=== PATIENT | male | born 1950 | race Caucasian/White ===

== ENCOUNTER 2018-03-26 10:26 | Day surgery (SDC) | payer OTHER ==
[2018-03-25 13:08] LABS: Absolute Lymphocytes (CBC) 1.6 K/uL (0.7-4.9); Absolute Monocytes 0.4 K/uL (0.1-1.3); Absolute Neutrophil 4.6 K/uL (1.8-8.0); Basophils % 1.8 % (0-1.3); Eosinophils % 6.3 % (0-4.4); Hematocrit 34.4 % (39.6-49.0); MCH 29.8 pg (27.0-35.0); MPV 8.1 fL (7.6-11.3); Monocytes % 5.9 % (3.3-12.3); RBC Red Blood Cell Count 3.87 M/uL (4.33-5.43)
[2018-03-25 13:15] LABS: Protime INR 1.01
[2018-03-25 13:24] LABS: Potassium 6.1 mmol/L (3.5-5.1)
--- NOTE | 2018-03-25 14:13 | RAD REPORT ---
EXAM DESCRIPTION: RAD - Chest Pa And Lat (2 Views) - 03/25/2018 2:02 pm CLINICAL HISTORY: Diabetes Chest pain. COMPARISON: Chest Single View dated 05/26/2017; Chest Single View dated 02/10/2017; Chest Single View d ated 02/09/2017; CHEST PA AND LAT 2 VIEW dated 12/09/2015 FINDINGS: The lungs are clear. The heart is upper limit of normal in size. No displaced fractures. R ight humeral prosthesis noted. Multi lead pacer/defibrillator device is in place the right. Sternotom y wires present. IMPRESSION: No acute or worrisome finding suspected.
[2018-03-25 14:21] LABS: Urine Appearance CLEAR; Urine Bilirubin NEGATIVE (NEG); Urine Blood NEGATIVE (NEG); Urine Color YELLOW; Urine Glucose 1+ (NEG); Urine Microscopic Reflex NO UMIC; Urine Protein NEGATIVE (NEG); Urine Urobilinogen 0.2 mg/dL (0.2-1.0)
--- NOTE | 2018-03-25 16:21 | EKG ---
Test Date: 2018-03-25 Test Time: 12:43:10 Night Custodian: A MEASUREMENT RESULTS: Intervals: Rate: 60 VT: 168 QRSD: 116 QT: 398 QTc: 398 [place]: P: VT: 168 QRS: -12 T: 174 INTERPRETIVE STATEMENTS: Electronic atrial pacemaker Intraventricular conduction delay ST & T wave abnormality, consider lateral ischemia Abnormal ECG Compared to ECG 05/26/2017 22:11:52 Sinus rhythm no longer present Electronically Signed On 03-25-18 16:21:14 CDT by Darci Venegas
--- OUTSIDE RECORDS SUMMARY | 2018-03-26 10:28 | XMS REPORT | Clinical Summary ---
:1950 Author Organization [facility] Address [address] [place] [address] Care Team Providers Name Role Phone Paula Guzman DO Primary Care Provider Allergies Active Allergy Reactions Severity Noted Date Comments Lisinopril 07/12/2017 Meperidine 05/26/2016 Rivaroxaban 07/12/2017 Current Medications Prescription Sig. Disp. Refills Start Date End Date Status aspirin (ECOTRIN) Take 1 tablet every Active 81 MG enteric day by oral route. coated tablet fenofibrate fenofibrate Active (TRICOR) 145 MG nanocrystallized 145 tablet mg tablet linagliptin-metfor Jentadueto 2.5 Active min (JENTADUETO) mg-1,000 mg tablet 2.5-1,000 mg tablet amIODarone 07/10/2017 Active (PACERONE) 400 MG tablet ELIQUIS 2.5 mg 06/16/2017 Active tablet carvedilol (COREG) 12.5 mg 2 (two) times 07/10/2017 Active 3.125 MG tablet a day with meals. nitroglycerin USE DIRECTED 5 06/19/2017 Active (NITROSTAT) 0.4 MG NEEDED SL tablet BUMETanide (BUMEX) Take 1 mg by mouth Active 1 MG tablet daily. magnesium oxide Take 400 mg by mouth Active (MAG-OX) 400 mg daily. tablet sacubitril-valsart Take 1 tablet by Active an (ENTRESTO) mouth 2 (two) times a 24-26 mg tablet day. per tablet rosuvastatin Take 40 mg by mouth Active (CRESTOR) 40 MG daily. tablet glimepiride Take 2 mg by mouth Active (AMARYL) 2 MG every evening. tablet digOXIN (LANOXIN) Take 125 mcg by mouth Active 125 mcg tablet daily. qbcmlfct-lhp-SO-ly Centrum Silver Discontinued copen-lutein 7 (CENTRUM SILVER) 0.4-300-250 mg-mcg-mcg tablet omega-3 fatty Fish Oil Discontinued acids-vitamin E 7 (FISH OIL) 1,000 mg capsule rosuvastatin Crestor 20 mg tablet Discontinued (CRESTOR) 20 MG 7 tablet furosemide (LASIX) Take 20 mg by mouth 2 0 05/28/2017 Discontinued 20 mg tablet (two) times a day. 7 losartan (COZAAR) 07/10/2017 Discontinued 25 MG tablet 7 sotalol (BETAPACE) TAKE 1 TABLET BY 2 05/29/2017 Discontinued 80 MG tablet MOUTH TWICE A DAY FOR 7 HEART RHYTHM moxifloxacin Administer 1 drop Discontinued (VIGAMOX) 0.5 % into the left eye 4 8 ophthalmic (four) times a day. solution prednisoLONE Administer 1 drop to Discontinued acetate (PRED the right eye 2 (two) 8 FORTE) 1 % times a day. ophthalmic suspension keTOROlac (ACULAR Administer 1 drop to Discontinued LS) 0.4 % the right eye 2 (two) 8 ophthalmic times a day. solution prednisoLONE Administer 1 drop Discontinued acetate (PRED into the left eye 4 8 FORTE) 1 % (four) times a day. ophthalmic suspension keTOROlac (ACULAR Administer 1 drop Discontinued LS) 0.4 % into the left eye 4 8 ophthalmic (four) times a day. solution Active Problems Problem Noted Date Pseudophakia 09/11/2017 Overview: OD 09/11/17 PCB00 21.0 OS 09/25/17 PCB00 21.0 Last Assessment & Plan: OD 09/11/17 PCB00 21.0 OS 09/25/17 PCB00 21.0 s/p phaco/PCIOL . Doing excellent. Defers MRx. OTC readers. Diabetes mellitus without complication 07/12/2017 Last Assessment & Plan: No diabetic retinopathy. Annual exams recommended. Importance of good blood sugar control discussed. Letter sent Dr. 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 Follow. IOP 14 OU today. Resolved Problems Problem Noted Date Resolved Date PVD (posterior vitreous detachment) 05/26/2016 07/12/2017 Last Assessment & Plan: Old, follow. Combined form of senile cataract 05/26/2016 10/24/2017 Last Assessment & Plan: The risks/benefits/alternatives of surgery were discussed with the patient. The patient understands. Basic, No FLACS per Praveena discussion. OD 09/11/17, OS 09/25/17 USE PCB00 21.0 D OD/OS Encounters Date Type Specialty Care Team Description 03/21/2018 Telephone Transplant Ines Francis HEART EVAL PENDING APPROVAL 03/21/2018 Telephone Transplant Arline Hahn RN 03/21/2018 Telephone Transplant Nitin Hahn Heart Zaira RILEY Villarreal 10/24/2017 Office Visit Ophthalmology Declan Santos, Pseudophakia ( Primary MD Dx) 09/26/2017 Office Visit Ophthalmology Declan Santos, Pseudophakia ( Primary MD Dx) 09/25/2017 Hospital Encounter Plastic Surgery Declan Santos MD 09/25/2017 Anesthesia Event Plastic Surgery Shayne Cantor CRNA 09/25/2017 Procedure Pass Plastic Surgery 09/25/2017 Surgery Plastic Surgery Declan Santos, PHACO W/ IOL 09/11/2017 Office Visit Ophthalmology Declan Santos, Pseudophakia ( Primary MD Dx) 09/11/2017 Hospital Encounter Plastic Declan Aguilar MD 09/11/2017 Anesthesia Event Plastic Surgery Tao Shipley MD 09/11/2017 Procedure Pass Plastic Surgery 09/11/2017 Surgery Plastic Surgery Declan Santos, Phaco with iol right MD eye 08/29/2017 Office Visit Ophthalmology Declan Santos, Combined forms of MD age-related cataract of both eyes (Primary Dx) 07/12/2017 Office Visit Ophthalmology Declan Santos, Combined forms of age-related cataract of both eyes (Primary Dx); Diabetes mellitus without complication after 03/25/2017 Family History Medical History Relation Name Comments No Known Problems Father No Known Problems Mother Relation Name Status Comments Father Mother Social History Tobacco Use Types Packs/Day Years Used Date Former Smoker Cigarettes 0.5 50 09/17/1966 - 12/16/2017 Smokeless Tobacco: Former User Tobacco Cessation: Ready to Quit: No; Counseling Given: No Comments: Smokeless Tobacco per patient "did not really use" Sex Assigned at Date Recorded Not on file Last Filed Vital Signs Vital Sign Reading Time Taken Blood Pressure 111/56 09/25/2017 8:12 AM HEALTHCARE MANAGEMENT CONSULTANT Pulse 63 09/25/2017 8:12 AM HEALTHCARE MANAGEMENT CONSULTANT Temperature 36.5 C (97.7 F) 09/25/2017 8:12 AM HEALTHCARE MANAGEMENT CONSULTANT Respiratory Rate 16 09/25/2017 8:12 AM HEALTHCARE MANAGEMENT CONSULTANT Oxygen Saturation 99% 09/25/2017 8:12 AM HEALTHCARE MANAGEMENT CONSULTANT Inhaled Oxygen Concentration - - Weight 75.6 kg (166 lb 11 oz) 03/21/2018 8:47 AM CDT Height 152.4 cm (5') 03/21/2018 8:47 AM CDT Body Mass Index 32.55 03/21/2018 8:47 AM CDT Plan of Treatment Date Type Specialty Care Team Description 04/03/2018 Appointment Transplant 04/03/2018 Appointment Transplant Georgina Alejo MD [address] [facility] [address] [place] [address] [phone] 04/03/2018 Appointment Transplant 05/07/2018 Office Visit Cardiology Matty Rivera MD [address] [facility] [address] [place] [address] [phone] 07/24/2018 Office Visit Ophthalmology Declan Santos MD [address] [facility] [address] [place] [address] [phone] Health Maintenance Due Date Last Done Comments DIABETIC FOOT EXAM 1960 URINE MICROALBUMIN 1960 COLON CANCER SCREENING 2000 SHINGRIX VACCINE (#1) 2000 ZOSTER VACCINE 2010 PNEUMOCOCCAL POLYSACCHARIDE VACCINE 2015 AGE 65 AND OVER PNEUMOCOCCAL-13 2015 INFLUENZA VACCINE 04/17/2018 DIABETIC RETINAL EYE EXAM 08/29/2019 08/29/2017, 07/12/2017, 05/26/2016 Implants Implanted Type Area Procurement Consultant Device Expiration Model / Identifier Date Serial / Lot Lens Iol Tecnis Preload 1 Piece Acrylic 21.0d - [id number] Ophthalmic N/A: [employer] 02/11/2020 [id number] / Implanted: 09/11/2017 (Quantity not on file) Implants N/A [employer] [id number] / [id number] Lens Iol Tecnis Preload 1 Piece Acrylic 21.0d - [id number] Ophthalmic Left: [employer] 09/04/2020 [id number] / Implanted: 09/25/2017 (Quantity not on file) Implants Eye [employer] [id number] / [id number] Procedures Procedure Name Priority Date/Time Associated Diagnosis Comments PHACOEMULSIFICATION, 09/25/2017 7:45 AM Combined forms of CATARACT, WITH IOL HEALTHCARE MANAGEMENT CONSULTANT age-related cataract, IMPLANTATION bilateral Case Notes REG LENS Special Needs REG LENS POC GLUCOSE Routine 09/25/2017 7:16 AM Results for this HEALTHCARE MANAGEMENT CONSULTANT procedure are in the results section. PHACOEMULSIFICATION, 09/11/2017 9:45 AM Combined forms of CATARACT, WITH IOL HEALTHCARE MANAGEMENT CONSULTANT age-related IMPLANTATION cataract, bilateral Case Notes REG LENS, LASER Special Needs REG LENS, LASER POC GLUCOSE Routine 09/11/2017 8:26 AM Results for this HEALTHCARE MANAGEMENT CONSULTANT procedure are in the results section. IOL BIOMETRY - OU - Routine 08/29/2017 12:58 PM Combined forms of Results for this BOTH EYES HEALTHCARE MANAGEMENT CONSULTANT age-related procedure are in cataract of both the results eyes section. after 03/25/2017 Results POC glucose (09/25/2017 7:16 AM)Only the most recent of2 resultswithin the time period is included. POC glucose 90 65 - 99 mg/dL [facility] DEPARTMENT OF PATHOLOGY AND Comment: [employer] MEDICINE Meter ID: [id number] Flight Test Supervisor: Haroon Byrd Performing Organization Address City/State/Zipcode Phone Number [facility] DEPARTMENT OF PATHOLOGY AND [address] [place] [address] GENOMIC MEDICINE IOL Master - OU - Both Eyes (08/29/2017 12:58 PM) Axial Length-OD 23.17 Axial Length-OS 23.20 Anterior Chamber Depth-OD 4.06 Anterior Chamber Depth-OS 3.88 White to White-OD 11.7 White to White-OS 11.9 Narrative Performed At Right Eye Axial length was 23.17. White to white was 11.7. AC Depth was 4.06. Left Eye Axial length was 23.20. White to white was 11.9. AC Depth was 3.88. Notes IOL CALCULATION ORDER SHEET DATE OF TESTIN08/29/17 DATE OF SURGERY: ODOS RK PRK LASIK SILICONEOIL SCLERAL BUCKLE PKP CONTACT LENSES: DATE LAST WORN:TYPE:RGP : SOFT: DOMINANT EYE: TARGET REFRACTION: ODOS TESTING RESULTS: OD OS K1 K2 AXIS TOTAL CYL K1 K2 AXIS TOTAL CYL AUTO K 45.50 46.50 20 1.00 45.25 46.25 170 1.00 IOLMASTER 45.54 46.48 22 0.95 45.16 46.33 170 1.16 ATLAS GALILEI SimK GALILEI TCP AXIAL LENGTH (in mm) OD OS IOL MASTER 23.17 23.20 SONOMED/ACCUTOME IMMERSION Dr BeaverDr. Constantino SAMUEL FINAL IOL LENS CHOICE:OD OS BACKUP LENS :OD OS after 03/25/2017 Insurance Payer Benefit Plan / Group Subscriber ID Type Phone Address [employer] MEDICARE AETNA MEDICARE HMO/PPO [facility] xxxxxxxx HMO [phone] [place] [address]
--- OUTSIDE RECORDS SUMMARY | 2018-03-26 10:29 | XMS REPORT | Clinical Summary ---
:1950 Author Organization [facility] Address [address] [place] [address] Phone Care Team Providers Name Role Phone Unavailable Primary Care Provider Unavailable Allergies Active Allergy Reactions Severity Noted Date Comments Meperidine 07/12/2017 Lisinopril 07/12/2017 Rivaroxaban 07/12/2017 Current Medications Prescription Sig. Disp. Refills Start Date End Date Status linagliptin-metfor Take 1 tablet Active min (JENTADUETO) by mouth daily. 2.5-1,000 mg TabIndications: type 2 diabetes mellitus glimepiride Take 2 mg by Active (AMARYL) 2 MG mouth every tablet evening . amiodarone Take 1 tablet 90 tablet 3 09/06/2017 Active (PACERONE) 200 MG (200 mg total) tablet by mouth daily. aspirin 81 MG EC Take 1 tablet 90 tablet 3 09/06/2017 Active tablet (81 mg total) 8 by mouth daily. bumetanide (BUMEX) Take 1 tablet 90 tablet 3 09/06/2017 Active 1 MG tablet (1 mg total) by 8 mouth daily. fenofibrate Take 1 tablet 90 tablet 3 09/06/2017 Active (TRICOR) 145 MG (145 mg total) tablet by mouth daily. sacubitril-valsart Take 1 tablet 60 tablet 5 09/06/2017 Active an (ENTRESTO) by mouth 2 24-26 mg Tab (two) times daily. carvedilol (COREG) Take 1 tablet 180 tablet 3 09/06/2017 Active 12.5 MG tablet (12.5 mg total) 8 by mouth 2 (two) times daily with breakfast and dinner. rosuvastatin Take 1 tablet 90 tablet 3 09/12/2017 Active (CRESTOR) 40 MG (40 mg total) tablet by mouth daily. magnesium oxide TAKE 2 TABLETS 120 tablet 0 01/11/2018 Active (MAG-OX) 400 mg (800 MG TOTAL) tablet BY MOUTH 2 (TWO) TIMES DAILY FOR 30 DAYS. ELIQUIS 5 MG TAKE 1 TABLET 60 tablet 1 01/27/2018 Active tablet (5 MG TOTAL) BY MOUTH 2 (TWO) TIMES DAILY. digoxin (LANOXIN) TAKE 1 TABLET 90 tablet 1 02/19/2018 Active 0.125 MG tablet (125 MCG TOTAL) BY MOUTH DAILY. fenofibrate Take 145 mg by Discontinued (TRICOR) 145 MG mouth daily. 7 tablet rosuvastatin Take 20 mg by Discontinued (CRESTOR) 20 MG mouth daily. 7 tablet apixaban (ELIQUIS) Take 2.5 mg by Discontinued 2.5 mg Tab tablet mouth 2 (two) 7 times daily. furosemide (LASIX) Take 40 mg by Discontinued 40 MG tablet mouth 2 (two) 7 times daily. potassium chloride Take 20 mEq by Discontinued (KLOR-CON) 10 MEQ mouth daily. 7 CR tablet losartan (COZAAR) Take 25 mg by Discontinued 25 MG tablet mouth 2 (two) 7 times daily. carvedilol (COREG) Take 3.125 mg Discontinued 3.125 MG tablet by mouth 2 7 (two) times daily with breakfast and dinner. amiodarone Take 200 mg by Discontinued (PACERONE) 400 MG mouth daily . 7 tablet aspirin 81 MG EC Take 1 tablet 30 tablet 1 07/21/2017 Discontinued tablet (81 mg total) 7 by mouth daily. atorvastatin Take 1 tablet 30 tablet 1 07/21/2017 Discontinued (LIPITOR) 80 MG (80 mg total) 7 tablet by mouth daily. bumetanide (BUMEX) Take 1 tablet 30 tablet 1 07/21/2017 Discontinued 1 MG tablet (1 mg total) by 7 mouth daily. carvedilol (COREG) Take 1 tablet 60 tablet 1 07/21/2017 Discontinued 6.25 MG tablet (6.25 mg total) 7 by mouth 2 (two) times daily with breakfast and dinner. sacubitril-valsart Take 1 tablet 30 tablet 1 07/20/2017 Discontinued an (ENTRESTO) by mouth 2 7 24-26 mg Tab (two) times daily. apixaban (ELIQUIS) Take 1 tablet 60 tablet 1 07/20/2017 Discontinued 5 mg Tab tablet (5 mg total) by 7 mouth 2 (two) times daily. acetaminophen-code Take 1 tablet 08/06/2017 Discontinued ine (TYLENOL #3) by mouth every 7 300-30 mg per 4 (four) hours tablet as needed. gabapentin Take 1 capsule 10 capsule 0 08/08/2017 (NEURONTIN) 100 MG (100 mg total) 7 capsule by mouth daily as needed for up to 10 days. magnesium oxide Take 2 tablets 120 tablet 0 08/08/2017 Discontinued (MAG-OX) 400 mg (800 mg total) 7 tablet by mouth 2 (two) times daily for 30 days. apixaban (ELIQUIS) Take 1 tablet 60 tablet 1 09/06/2017 Discontinued 5 mg Tab tablet (5 mg total) by 8 mouth 2 (two) times daily. carvedilol (COREG) Take 1 tablet 180 tablet 3 09/06/2017 Discontinued 6.25 MG tablet (6.25 mg total) 7 by mouth 2 (two) times daily with breakfast and dinner. rosuvastatin Take 1 tablet 90 tablet 3 09/06/2017 Discontinued (CRESTOR) 20 MG (20 mg total) 7 tablet by mouth daily. magnesium oxide Take 2 tablets 120 tablet 0 09/06/2017 Discontinued (MAG-OX) 400 mg (800 mg total) 8 tablet by mouth 2 (two) times daily for 30 days. digoxin (LANOXIN) Take 1 tablet 30 tablet 5 09/07/2017 Discontinued 0.125 MG tablet (125 mcg total) 8 by mouth daily. magnesium oxide TAKE 2 TABLETS 120 tablet 0 10/25/2017 Discontinued (MAG-OX) 400 mg (800 MG TOTAL) 8 tablet BY MOUTH 2 (TWO) TIMES DAILY FOR 30 DAYS. ELIQUIS 5 MG TAKE 1 TABLET 60 tablet 1 12/02/2017 Discontinued tablet (5 MG TOTAL) BY 8 MOUTH 2 (TWO) TIMES DAILY. magnesium oxide TAKE 2 TABLETS 120 tablet 0 12/12/2017 Discontinued (MAG-OX) 400 mg (800 MG TOTAL) 8 tablet BY MOUTH 2 (TWO) TIMES DAILY FOR 30 DAYS. ferrous sulfate Take 325 mg by Discontinued 325 (65 FE) MG mouth 2 (two) 8 tablet times daily. SULFAMETHOXAZOLE/T Take by mouth 2 Discontinued RIMETHOPRIM (two) times 8 (BACTRIM ORAL) daily For 10 days on day 3 . Active Problems Patient Care Coordination Note Patient ID: With ischemic cardiomyopathy, HFrEF, LVEF 30% by Echo 07/13/17, CAD s/p ACB, AICD, DM HPI : The patient is here for an initial visit in the Heart Failure Clinic for evaluation and treatment of advanced heart failure. Past Medical History Past Medical History: Diagnosis Date AICD (automatic cardioverter/defibrillator) present CHF (congestive heart failure) (HCC) Coronary artery disease Diabetes mellitus (HCC) Hyperlipidemia Pacemaker Surgical History Past Surgical History: Procedure Laterality Date CARDIAC SURGERY CORONARY STENT PLACEMENT JOINT REPLACEMENT R & L CATH / CORONARY ANGIOS / PCI N/A 07/17/2017 Procedure: R & L CATH / CORONARY ANGIOS / PCI; Surgeon: Ventura Espitia MD; Location: [facility]; Service: Cardiology; Laterality: N/A ; Social History Social History Social History Marital status: Spouse name: N/A Number of children: N/A Years of education: N/A Occupational History Not on file. Social History Main Topics Smoking status: Former Smoker Packs/day: 0.50 Years: 57.00 Types: Cigarettes Start date: 1959 Smokeless tobacco: Former User Alcohol use No Drug use: No Sexual activity: Not on file Other Topics Concern Not on file Social History Narrative Allergies Allergen Reactions Demerol [Meperidine] Lisinopril Xarelto [Rivaroxaban] Pertinent Tests: 2DEcho, 07/13/17 Summary 1. The LV is severely enlarged. The LV function is moderate to severely depressed. LVEF is 30%. 2. Diastology: Grade 3 diastolic dysfunction 3. The RV is normal in size. Depressed RV function 4. No significant valvular heart disease. 5. Mild tricuspid regurgitation. Estimated RVSP is 35-40 mm Hg. Previous Study No prior exam available for comparison MVO2, 08/20/17 VO2 Max: 14.2 ml/kg/min VO2 Max/Pred: 43% RER: 1.20 RHC, 07/18/17 RA 9/10/8 RV 29/6/8 PA 33/23/26 PCW 16/16/14 AO 131/69/61 LV 128/5/10 CO andrea 4-8 CI andrea 1.42 PVR 4.73 w.u. Bilateral Carotid Doppler, 07/17/17 Summary Carotid duplex scanning and color flow imaging were performed bilaterally. The arteries were adequately visualized. The right internal carotid artery had <50% hemodynamically insignificant stenosis (approximately 29% by 2-D measurement) with heterogeneous plaque. The left internal carotid artery had <50% hemodynamically insignificant stenosis (approximately 35% by 2-D measurement) with heterogeneous plaque. Carotid duplex scanning and color flow imaging were performed bilaterally. The arteries were adequately visualized. The bilateral internal carotid arteries had <50% hemodynamically insignificant stenosis (approximately 29% by 2-D measurement on the right, approximately 35% by 2-D measurement on the left) with heterogeneous plaque. The vertebral artery flow was antegrade and normal bilaterally. The subclavian arteries were patent with normal flow bilaterally where visualized. Assessment : Ischemic Cardiomyopathy, HFrEF LVEF 30%, LVIDd by Echo 07/13/17 NYHA Class, Stage CAD, s/p ACB Renal Insufficiency H/o hyperkalemia DM Problem Noted Date Paroxysmal atrial fibrillation ([facility]) 08/08/2017 COPD (chronic obstructive pulmonary disease) ([facility]) 08/08/2017 Coronary artery disease involving [place] coronary artery 08/08/2017 Overview: S/p CABG Stage 3 chronic kidney disease 08/08/2017 Chronic combined systolic and diastolic CHF (congestive heart failure) 2016 ([facility]) Overview: S/p AICD Smoker 07/17/2017 Type 2 diabetes mellitus ([facility]) 07/17/2017 Cardiomyopathy ([facility]) 05/26/2016 Combined form of senile cataract 05/26/2016 Overview: Last Assessment & Plan: Visually significant. The risks/benefits/alternatives of cataract surgery were discussed with the patient. He understands and will proceed with scheduling phaco. Essential hypertension 05/26/2016 HLD (hyperlipidemia) 05/26/2016 Pigment dispersion syndrome of both eyes 05/26/2016 Overview: Last Assessment & Plan: Old, mild, no glaucoma. Follow. IOP 14 OU today. Encounters Date Type Specialty Care Team Description 03/15/2018 Office Visit Transplant Daphne Romano MD systolic and diastolic heart failure (HCC);Hyperlipidemia, unspecified hyperlipidemia type;Chronic combined systolic and diastolic CHF (congestive heart failure) (HCC);Awaiting organ transplant status;Cigarette smoker within last 12 months;AICD (automatic cardioverter/defibril lator) present 03/06/2018 Orders Only Transplant Nery Mejia HyperlipidemiaGenna RN unspecified hyperlipidemia type (Primary Dx);AICD (automatic cardioverter/defibril lator) present 03/06/2018 Orders Only Transplant Nery Mejia RN systolic and diastolic CHF (congestive heart failure) (HCC) (Primary Dx) 02/19/2018 Refill Transplant Daphne Romano MD 01/26/2018 Refill Transplant Daphne Romano MD 01/23/2018 Hospital Encounter Research Keo Rodriguez MD 01/11/2018 Refill Transplant Daphne Romano MD 12/27/2017 Hospital Encounter Oncology Keo Rodriguez MD 12/21/2017 Orders Only Transplant Daphne Romano Awaiting organ MD Riley transplant status;Cigarette smoker within last 12 months;Chronic combined systolic and diastolic CHF (congestive heart failure) (HCC) 12/21/2017 Hospital Encounter Research 12/21/2017 Orders Only Transplant Gopal, Chronic combined RILEY Agrawal systolic and diastolic CHF (congestive heart failure) (HCC) (Primary Dx);Awaiting organ transplant status;Cigarette smoker within last 12 months 12/20/2017 Orders Only Rainer Harman Chronic combined RILEY Brooke systolic and diastolic congestive heart failure (HCC) (Primary Dx) 12/13/2017 Office Visit Transplant Daphne Romano Hyperkalemia (Primary MD Riley Dx);Chronic combined systolic and diastolic heart failure (HCC);Awaiting organ transplant status;Cigarette smoker within last 12 months 12/13/2017 Documentation Research Keo Rodriguez MD 12/13/2017 Orders Only Transplant Shira Denton, Chronic combined RN systolic and diastolic CHF (congestive heart failure) (HCC) (Primary Dx);Hyperkalemia 12/13/2017 Orders Only Transplant Shira Denton, Smoker (Primary RN Dx);Chronic combined systolic and diastolic CHF (congestive heart failure) (HCC);Hyperkalemia;Ch ronic combined systolic and diastolic heart failure (HCC) 12/12/2017 Refill Transplant Daphne Romano MD 11/25/2017 Refill Transplant Daphne Romano MD 10/25/2017 Refill Transplant Daphne Romano MD 10/04/2017 Abstract Transplant Chan Maza 09/24/2017 Telephone Transplant Phyllis Johnson RN Follow-up 09/24/2017 Orders Only Transplant Phyllis Johnson RN Awaiting organ transplant status (Primary Dx);Cigarette smoker within last 12 months 09/12/2017 Orders Only Transplant Kaley Weller RN 09/07/2017 Orders Only Transplant Shira Denton RN 09/06/2017 Office Visit Transplant Daphne Romano MD systolic and diastolic heart failure (HCC);Type 2 diabetes mellitus without complication, unspecified chief data officer insulin use status (HCC);Hyperlipidemia, unspecified hyperlipidemia type 09/06/2017 Orders Only General Internal Medicine 09/05/2017 Orders Only Transplant Shira Denton, Chronic combined RN systolic and diastolic heart failure (HCC) (Primary Dx);Hyperlipidemia, unspecified hyperlipidemia type;Type 2 diabetes mellitus without complication, unspecified chief data officer insulin use status (HCC) 09/03/2017 Documentation Transplant Bobbi Baker 08/16/2017 Hospital Encounter Cardiology Alie Denny MD cardiomyopathy 08/16/2017 Hospital Encounter Cardiology Alie Denny MD cardiomyopathy 08/16/2017 Hospital Encounter Alie Denny MD osteoporosis 08/16/2017 Orders Only Transplant Phyllis Johnson RN 08/16/2017 Outside Orders Alie Denny MD 08/15/2017 Abstract Transplant Chan Maza M 08/08/2017 Office Visit Cardiology Ngoc Steele NP Chronic combined systolic and diastolic CHF (congestive heart failure) (HCC) (Primary Dx);Paroxysmal atrial fibrillation (HCC);Stage 3 chronic kidney disease;Hypomagnesemi a 08/08/2017 Orders Only General Internal Medicine 07/25/2017 Telephone Transplant Arnulfo Estes RN 07/25/2017 Abstract Transplant Chan Maza 07/25/2017 Abstract Transplant Chan Maza 07/24/2017 Telephone Transplant Yessenia Padilla Advice Only RILEY Vela 07/23/2017 Orders Only Alie Paniagua Awaiting organ MD Serge transplant (Primary Dx) 07/23/2017 Telephone Transplant Kaur Padron Appointment 07/23/2017 Orders Only Transplant Phyllis Johnson RN Ischemic cardiomyopathy (Primary Dx) 07/23/2017 Orders Only Transplant Phyllis Johnson RN Ischemic cardiomyopathy (Primary Dx);Screening for osteoporosis 07/19/2017 Committee Review Transplant Phyllis Johnson RN 07/19/2017 Social Work Transplant Mary Grace Byrd LCSW 07/17/2017 Abstract Transplant Phyllis Johnson RN Ischemic cardiomyopathy 07/17/2017 Procedure Pass 07/17/2017 Surgery Ventura Espitia R & L CATH / CORONARY MD Jennifer ANGIOS / PCI 07/16/2017 Abstract Transplant Maria C Cervantes 07/16/2017 Abstract Transplant Maria C Cervantes 07/14/2017 Procedure Pass 07/12/2017 - Hospital Encounter Cardiology АлександрchanoSaul Acute on chronic 07/20/2017 MD Darci congestive heart Ronit Nunez failure, unspecified MD Tessa congestive heart Janay Butler MD failure type (HCC) (Primary Dx);Acute on chronic systolic congestive heart failure (HCC);EDIE (acute kidney injury) (HCC);Essential hypertension;CAD, multiple vessel;Acute respiratory distress;NSTEMI (non-ST elevated myocardial infarction) (HCC) 07/12/2017 Orders Only General Internal Medicine after 03/25/2017 Immunizations Name Dates Previously Given Next Due Influenza TIV (IM) 07/05/2017 Social History Tobacco Use Types Packs/Day Years Used Date Former Smoker Cigarettes 0.5 57 Started: 1960 Smokeless Tobacco: Former User Alcohol Use Drinks/Week oz/Week Comments No Sex Assigned at Date Recorded Not on file Last Filed Vital Signs Vital Sign Reading Time Taken Blood Pressure 120/59 03/15/2018 8:05 AM CDT Pulse 63 03/15/2018 8:05 AM CDT Temperature 36.5 C (97.7 F) 03/15/2018 8:05 AM CDT Respiratory Rate 20 03/15/2018 8:05 AM CDT Oxygen Saturation 98% 03/15/2018 8:05 AM CDT Inhaled Oxygen Concentration - - Weight 79.7 kg (175 lb 12.8 oz) 03/15/2018 8:05 AM CDT Height 162.6 cm (5' 4") 03/15/2018 8:05 AM CDT Body Mass Index 30.18 03/15/2018 8:05 AM CDT Plan of Treatment Health Maintenance Due Date Last Done Comments INFLUENZA VACCINE 06/17/2018 Procedures Procedure Name Priority Date/Time Associated Diagnosis Comments R & L CATH / 07/17/2017 10:21 AM chest pain CORONARY ANGIOS / CDT PCI CRITICAL CARE Routine 07/13/2017 6:49 AM Results for this CDT procedure are in the results section. after 03/25/2017 Results CBC with platelet count + automated diff (03/15/2018 8:10 AM)Only the most recent of4 resultswithin the time period is included. Component Value Ref Range WBC 6.0 3.5 - 10.5 K/L RBC 3.96 (L) 4.63 - 6.08 M/L Hemoglobin 11.2 (L) 13.7 - 17.5 GM/DL Hematocrit 36.8 (L) 40.1 - 51.0 % MCV 92.9 (H) 79.0 - 92.2 fL MCH 28.3 25.7 - 32.2 pg MCHC 30.4 (L) 32.3 - 36.5 GM/DL RDW 12.8 11.6 - 14.4 % Platelets 274 150 - 450 K/CU MM MPV 9.8 9.4 - 12.4 fL nRBC 0 0 - 0 /100 WBC % Neutros 66 % % Lymphs 16 % % Monos 8 % % Eos 7 % % Baso 2 % # Neutros 3.91 1.78 - 5.38 K/L # Lymphs 0.98 (L) 1.32 - 3.57 K/L # Monos 0.47 0.30 - 0.82 K/L # Eos 0.41 0.04 - 0.54 K/L # Baso 0.11 (H) 0.01 - 0.08 K/L Immature Granulocytes-Relative 2 (H) 0 - 1 % Specimen Performing Laboratory Blood [address] [address] CBC with platelet count + automated diff (03/15/2018 8:10 AM)Only the most recent of4 resultswithin the time period is included. Specimen Performing Laboratory Blood Narrative The following orders were created for panel order CBC with platelet count + automated diff. Procedure Abnormality Status --------- ------ CBC with platelet count ...[[id number]]AbnormalFinal result Please view results for these tests on the individual orders. B-type Natriuretic Factor (BNP) (03/15/2018 8:10 AM)Only the most recent of7 resultswithin the time period is included. Component Value Ref Range BNP 641 (H) 0 - 100 pg/mL Specimen Performing Laboratory Blood [address] [address] Hepatic function panel (03/15/2018 8:10 AM)Only the most recent of3 resultswithin the time period is included. Component Value Ref Range Protein, Total 6.8 6.0 - 8.3 gm/dL Albumin 3.8 3.5 - 5.0 g/dL Total Bilirubin 0.3 0.2 - 1.2 mg/dL Bilirubin, Direct 0.2 0.1 - 0.5 mg/dL Alkaline Phosphatase 37 (L) 40 - 150 U/L AST 24 5 - 34 U/L ALT 19 6 - 55 U/L Specimen Performing Laboratory Blood [address] [address] Lipid panel (03/15/2018 8:10 AM)Only the most recent of3 resultswithin the time period is included. Component Value Ref Range Triglycerides 117 mg/dL Cholesterol 136 mg/dL HDL 41 mg/dL LDL Calculated 72 mg/dL Specimen Performing Laboratory [address] [address] Narrative Triglyceride Reference Range: Low Risk <150 [id number] High Risk 200-499 Very High Risk>=500 Cholesterol Reference Range: Low Risk <200 [id number] High Risk>240 HDL Cholesterol Reference Range: Low Risk >=60 High Risk <40 LDL Cholesterol Reference Range: Optimal<100 Near [id number] Very High >=190 Basic Metabolic Panel (03/15/2018 8:10 AM)Only the most recent of12 resultswithin the time period is included. Component Value Ref Range Sodium 137 136 - 145 meq/L Potassium 4.7 3.5 - 5.1 meq/L Chloride 104 98 - 107 meq/L CO2 29 22 - 29 meq/L BUN 21 7 - 21 mg/dL Creatinine 1.37 (H) 0.57 - 1.25 mg/dL Glucose 209 (H) 70 - 105 mg/dL Calcium 8.8 8.4 - 10.2 mg/dL EGFR 52Comment: ESTIMATED GFR IS NOT ACCURATE mL/min/1.73 sq m CREATININE CLEARANCE IN PREDICTING GLOMERULAR FILTRATION RATE. ESTIMATED GFR IS NOT APPLICABLE FOR DIALYSIS PATIENTS. Specimen Performing Laboratory Blood [address] [address] TSH/Free T4 If Indicated (03/15/2018 8:09 AM)Only the most recent of4 resultswithin the time period is included. Component Value Ref Range TSH 3.29 0.35 - 4.94 uIU/mL Specimen Performing Laboratory Blood [address] [address] Immunofixation electrophoresis (ANAND) (03/15/2018 8:09 AM)Only the most recent of2 resultswithin the time period is included. Component Value Ref Range IgG 944 540 - 1822 mg/dL IgA 137 63 - 484 mg/dL IgM 41 22 - 293 mg/dL Serum ANAND Identification No monoclonal proteins detected. Polyclonal distribution of immunoglobulins. Pathologist: Angely Santos MD (electronic signature) Specimen Performing Laboratory Blood [address] [address] Protein electrophoresis, serum (03/15/2018 8:09 AM)Only the most recent of3 resultswithin the time period is included. Component Value Ref Range Albumin Fraction 3.3 (L) 3.5 - 5.5 g/dL Alpha 1 Fraction 0.3 0.2 - 0.4 g/dL Alpha 2 Fraction 1.0 (H) 0.5 - 0.9 g/dL Beta Fraction 1.0 0.6 - 1.1 g/dL Gamma Globulin Fraction 0.8 0.7 - 1.7 g/dL Interpretation All fractions present in expected distribution. No monoclonal bands detected. No significant change from previous study performed 12-13-17. Pathologist: Angely Santos MD (electronic signature) Protein, Total 6.4 6.0 - 8.3 gm/dL Specimen Performing Laboratory Blood [address] [address] BUN and Creatinine (12/21/2017 9:43 AM) Component Value Ref Range BUN 37 (H) 7 - 21 mg/dL Creatinine 2.13 (H) 0.57 - 1.25 mg/dL EGFR 31Comment: ESTIMATED GFR IS NOT ACCURATE mL/min/1.73 sq m CREATININE CLEARANCE IN PREDICTING GLOMERULAR FILTRATION RATE. ESTIMATED GFR IS NOT APPLICABLE FOR DIALYSIS PATIENTS. Specimen Performing Laboratory Blood [address] [address] ALT (SGPT) (12/21/2017 9:43 AM) Component Value Ref Range ALT 23 6 - 55 U/L Specimen Performing Laboratory [address] [address] AST (SGOT) (12/21/2017 9:43 AM) Component Value Ref Range AST 24 5 - 34 U/L Specimen Performing Laboratory Blood [address] [address] Sodium (12/21/2017 9:43 AM) Component Value Ref Range Sodium 137 136 - 145 meq/L Specimen Performing Laboratory [address] [address] Potassium (12/21/2017 9:43 AM)Only the most recent of2 resultswithin the time period is included. Component Value Ref Range Potassium 5.6 (H) 3.5 - 5.1 meq/L Specimen Performing Laboratory [address] [address] Alkaline phosphatase (12/21/2017 9:43 AM) Component Value Ref Range Alkaline Phosphatase 43 40 - 150 U/L Specimen Performing Laboratory [address] [address] Magnesium (12/21/2017 9:43 AM)Only the most recent of10 resultswithin the time period is included. Component Value Ref Range Magnesium 1.9 1.6 - 2.6 mg/dL Specimen Performing Laboratory [address] [address] Lactate dehydrogenase (LDH) (12/21/2017 9:43 AM)Only the most recent of2 resultswithin the time period is included. Component Value Ref Range LDH 223 (H) 125 - 220 U/L Specimen Performing Laboratory [address] [address] Hemoglobin A1c (12/21/2017 9:43 AM)Only the most recent of3 resultswithin the time period is included. Component Value Ref Range Hemoglobin A1C 6.3 (H) 4.3 - 6.1 % Specimen Performing Laboratory [address] [address] Creatine Kinase (CK) (12/21/2017 9:43 AM) Component Value Ref Range Total CK 166 29 - 200 U/L Specimen Performing Laboratory [address] [address] Chloride (12/21/2017 9:43 AM) Component Value Ref Range Chloride 102 98 - 107 meq/L Specimen Performing Laboratory [address] [address] Bilirubin, direct (12/21/2017 9:43 AM) Component Value Ref Range Bilirubin, Direct 0.2 0.1 - 0.5 mg/dL Specimen Performing Laboratory [address] [address] Bilirubin, adult total (12/21/2017 9:43 AM) Component Value Ref Range Total Bilirubin 0.3 0.2 - 1.2 mg/dL Specimen Performing Laboratory [address] [address] ECG 12 lead (09/06/2017 12:11 PM)Only the most recent of5 resultswithin the time period is included. Specimen Performing Laboratory GE MUSE Narrative Ventricular Rate 66 BPM Atrial Rate 66 BPM P-R Interval 192 ms QRS Duration 108 ms Q-T Interval 412 ms QTC Calculation(Bazett) 431 ms P Huntington 72 degrees R Huntington 2 degrees T Huntington 152 degrees Normal sinus rhythm Incomplete left bundle branch block T wave abnormality, consider lateral ischemia Abnormal ECG When compared with ECG of 08-AUG-2017 11:22, Fusion complexes are no longer Present Premature ventricular complexes are no longer Present Questionable change in QRS axis Non-specific change in ST segment in Inferior leads T wave inversion no longer evident in Inferior leads Confirmed by Daphne Romano ([id number]) on 09/25/2017 2:45:04 PM Procedure Note Interface, External Ris In - 09/25/2017 2:45 PM COPIER OPERATOR Ventricular Rate 66 BPM Atrial Rate 66 BPM P-R Interval 192 ms QRS Duration 108 ms Q-T Interval 412 ms QTC Calculation(Bazett) 431 ms P Huntington 72 degrees R Huntington 2 degrees T Huntington 152 degrees Normal sinus rhythm Incomplete left bundle branch block T wave abnormality, consider lateral ischemia Abnormal ECG When compared with ECG of 08-AUG-2017 11:22, Fusion complexes are no longer Present Premature ventricular complexes are no longer Present Questionable change in QRS axis Non-specific change in ST segment in Inferior leads T wave inversion no longer evident in Inferior leads Confirmed by Daphne Romano ([id number]) on 09/25/2017 2:45:04 PM Prothrombin time/INR (09/06/2017 11:16 AM) Component Value Ref Range Protime 15.4 (H) 11.7 - 14.7 seconds INR 1.2 <=5.9 Specimen Performing Laboratory Blood [address] [address] Narrative RECOMMENDED COUMADIN/WARFARIN INR THERAPY RANGES STANDARD DOSE: 2.0 - 3.0 Includes: PROPHYLAXIS for venous thrombosis, systemic embolization; TREATMENT for venous thrombosis and/or pulmonary embolus. HIGH RISK: Target INR is 2.5-3.5 for patients with mechanical heart valves. Uric acid (09/06/2017 11:16 AM)Only the most recent of2 resultswithin the time period is included. Component Value Ref Range Uric Acid 6.6 2.6 - 7.2 mg/dL Specimen Performing Laboratory Blood [address] [address] Prealbumin (09/06/2017 11:16 AM)Only the most recent of2 resultswithin the time period is included. Component Value Ref Range Prealbumin 29 14 - 45 mg/dL Specimen Performing Laboratory Blood [facility] [address] [place] [address], [place] [address] (MVO2) MAXIMAL VO2 CARDIOPULM TEST - [facility] (08/20/2017 2:22 PM) Specimen Performing Laboratory [employer] Yet XR dxa bone density study (08/16/2017 8:44 AM) Specimen Performing Laboratory [facility] RIS Narrative FINAL REPORT Technique: Bone mineral density of the lumbar spine and both femoral necks performed on 08/16/2017 Clinical History: Osteopenia screening. Comparison: None Bone mineral density measurement Lumbar spine1.382 gm/cm2 Left Femoral neck1.157 gm/cm2 Right Femoral neck1.120 gm/cm2 Standard deviation from young adult population (T-score) Lumbar spine 1.3 Left Femoral neck 0.7 Right Femoral neck 0.4 Standard deviation for age adjusted population (Z-score) Lumbar spine1.9 Left Femoral neck1.9 Right Femoral neck1.6 IMPRESSION: WHO classification of normal for the lumbar spine and both femoral necks. Diagnostic criteria for osteoporosis BMD:Bone mineral density Normal: BMD measurement less than one standard deviation from young adult population Osteopenia: BMD measurement between 1 and 2.5 standard deviations Osteoporosis: BMD measurement greater than 2.5 standard deviations Signed: Phyllis Lange MD Report Verified Date/Time:08/16/2017 09:58:30 Reading Location: [facility] Radiology Reading Room Procedure Note Interface, External Ris In - 08/16/2017 10:00 AM COPIER OPERATOR FINAL REPORT Technique: Bone mineral density of the lumbar spine and both femoral necks performed on 08/16/2017 Clinical History: Osteopenia screening. Comparison: None Bone mineral density measurement Lumbar spine1.382 gm/cm2 Left Femoral neck1.157 gm/cm2 Right Femoral neck1.120 gm/cm2 Standard deviation from young adult population (T-score) Lumbar spine 1.3 Left Femoral neck 0.7 Right Femoral neck 0.4 Standard deviation for age adjusted population (Z-score) Lumbar spine1.9 Left Femoral neck1.9 Right Femoral neck1.6 IMPRESSION: WHO classification of normal for the lumbar spine and both femoral necks. Diagnostic criteria for osteoporosis BMD: Bone mineral density Normal: BMD measurement less than one standard deviation from young adult population Osteopenia: BMD measurement between 1 and 2.5 standard deviations Osteoporosis: BMD measurement greater than 2.5 standard deviations Signed: Phyllis Lange MD Report Verified Date/Time: 08/16/2017 09:58:30 Reading Location: [facility] Radiology Reading Room HM STRIP - SCAN (07/23/2017 2:20 PM)Only the most recent of2 resultswithin the time period is included.Flow PRA Class I and II (07/23/2017 6:21 AM) Component Value Ref Range Date of Serum [id number] Serum# [id number] Flow PRA Class I and II See Scanned Report Specimen Performing Laboratory Blood [facility] IMMUNE EVALUATION LAB [facility] [place], [place]:[facility] [address] [place] [address] HLA Typing (07/23/2017 6:21 AM) Component Value Ref Range HLA Result See Scanned Report HLA-A AG1 HLA-A AG2 HLA-B AG1 HLA-B AG2 HLA-C AG1 HLA-C AG2 HLA-DR AG1 HLA-DR 2nd Antigen HLA-DQ AG1 HLA-DQ AG2 HLA-DRW Specimen Performing Laboratory Blood [facility] IMMUNE EVALUATION LAB [facility] [place], [place]:[facility] [address] [place] [address] POC-Glucose meter (07/20/2017 5:03 PM)Only the most recent of29 resultswithin the time period is included. Component Value Ref Range POC-Glucose Meter 283 (H)Comment: TESTED AT [address] 70 - 110 mg/[place] [address] Specimen Performing Laboratory Blood [facility] [address] [address] CBC (hemogram only) (07/20/2017 6:15 AM)Only the most recent of7 resultswithin the time period is included. Component Value Ref Range WBC 7.3 3.5 - 10.5 K/L RBC 4.41 (L) 4.63 - 6.08 M/L Hemoglobin 13.2 (L) 13.7 - 17.5 GM/DL Hematocrit 40.5 40.1 - 51.0 % MCV 91.8 79.0 - 92.2 fL MCH 29.9 25.7 - 32.2 pg MCHC 32.6 32.3 - 36.5 GM/DL RDW 12.4 11.6 - 14.4 % Platelets 186 150 - 450 K/CU MM MPV 10.3 9.4 - 12.4 fL nRBC 0 0 - 0 /100 WBC Specimen Performing Laboratory Blood - Arm, Left [address] [address] PULMONARY FUNCTION - SCAN (07/19/2017 2:11 PM)CARDIAC CATH REPORT - SCAN (07/18 11:10 PM)Creatinine clearance (07/18/2017 8:23 PM) Component Value Ref Range Creatinine Clearance 56.5 (L) 70.0 - 140.0 mL/min Volume, Urine 2500 ml Creatinine, Ur 46.2 mg/dL Pathologist: Angely Santos MD (electronic signature) Specimen Performing Laboratory Urine - Urine, Voided [address] [address] TRANSFUSION SERVICE REPORT - SCAN (07/18/2017 5:43 PM)Pulmonary Funct Lab Spirometry (07/18/2017 1:21 PM) Narrative Giovani Dodson, UX INTERACTION DESIGNER, RECYCLING OPERATIONS MANAGER 07/18/20171:21 PM [facility] PFT CHARTING REPORT Infection Control/Hand Hygiene procedures followed throughout the encounter with patient: Yes Patient Identification Method: Patient name verified on armband, and Medical record on armband, Is the order complete?: Yes Account ID#: [id number] Patient Name: Maggy Juárez Birthdate: 1950 Age: 67 y.o.Sex: male Admission Date: 07/12/2017Patient Status: Inpatient Reasons/Symptom for having the Test?: a history/complaint of a dyspnea Type of study/treatment ordered by physician: Single Breath DLCO and Spirometry Lab Results Component Value Date HGB 13.1 (L) 07/18/2017 Ranges: Adult Male 13 - 16.8 g/dlAdult Female 12 - 15 g/dl 6 Minute Walk (read only) 07/18/2017 07/18/2017 07/18/2017 Pulse 82 66 80 SpO2 95 93 94 Study Date: 07/18/2017Study Time: 1102 ASSESSMENT History & Physical Mode of Arrival: Wheel chair Pulse: 83Resp: 18SPO2: 98 % RA Pain Assessment Pain:None TESTING/THERAPEUTICS Medications ordered or required for procedure: Albuterol, PT EDUCATION/INSTRUCTIONS Barriers to learning: No known barriers to learning. Learning need identified: Yes, Patient/Family/Guradian was informed of the ordered study by the physician Barriers to performing study or treatment: Patient has no known disability to perform the study or treatment. DISCHARGE The study was completed in accordance with the physician's order and patient released from the lab without adverse outcome. DLCO (single breath diffusion) (07/18/2017 1:21 PM) Narrative Giovani Dodson, UX INTERACTION DESIGNER, RECYCLING OPERATIONS MANAGER 07/18/20171:21 PM [facility] PFT CHARTING REPORT Infection Control/Hand Hygiene procedures followed throughout the encounter with patient: Yes Patient Identification Method: Patient name verified on armband, and Medical record on armband, Is the order complete?: Yes Account ID#: [id number] Patient Name: Maggy Juárez Birthdate: 1950 Age: 67 y.o.Sex: male Admission Date: 07/12/2017Patient Status: Inpatient Reasons/Symptom for having the Test?: a history/complaint of a dyspnea Type of study/treatment ordered by physician: Single Breath DLCO and Spirometry Lab Results Component Value Date HGB 13.1 (L) 07/18/2017 Ranges: Adult Male 13 - 16.8 g/dlAdult Female 12 - 15 g/dl 6 Minute Walk (read only) 07/18/2017 07/18/2017 07/18/2017 Pulse 82 66 80 SpO2 95 93 94 Study Date: 07/18/2017Study Time: 1102 ASSESSMENT History & Physical Mode of Arrival: Wheel chair Pulse: 83Resp: 18SPO2: 98 % RA Pain Assessment Pain:None TESTING/THERAPEUTICS Medications ordered or required for procedure: Albuterol, PT EDUCATION/INSTRUCTIONS Barriers to learning: No known barriers to learning. Learning need identified: Yes, Patient/Family/Guradian was informed of the ordered study by the physician Barriers to performing study or treatment: Patient has no known disability to perform the study or treatment. DISCHARGE The study was completed in accordance with the physician's order and patient released from the lab without adverse outcome. PERIPHERAL VASCULAR REPORT - SCAN (07/18/2017 7:20 AM)Only the most recent of2 resultswithin the time period is included.T Spot TB (07/18/2017 7:13 AM) Component Value Ref Range T-Spot TB Negative Neg Ctrl Spot Count 1 Panel A Spot 0 Panel B Spot [address] >20 Scan Result Specimen Performing Laboratory Blood - Arm, [facility] [address] [facility], [address] [place] [address] Phosphorus (07/18/2017 6:12 AM)Only the most recent of2 resultswithin the time period is included. Component Value Ref Range Phosphorus 2.9 2.3 - 4.7 mg/dL Specimen Performing Laboratory Blood - Arm, [address] [address] PTH, intact (07/18/2017 6:12 AM) Component Value Ref Range PTH 42.1 8.5 - 72.5 pg/mL Specimen Performing Laboratory Blood - Arm, [address] [address] Protein, random urine (07/17/2017 9:12 PM) Component Value Ref Range Protein, Urine 12 0 - 14 mg/dL Specimen Performing Laboratory Urine - Urine, Clean Catch [address] [address] Urine Protein Electrophoresis, random (07/17/2017 9:12 PM) Component Value Ref Range Protein, Urine 12 0 - 14 mg/dL Albumin %, Urine 33.0 % Globulin %, Urine 67.0 % UPEP,ID Pattern consistent with mixed glomerular and tubular proteinuria. Pathologist: Comment: Test performed and interpreted by [facility]. Specimen Performing Laboratory Urine - Urine, [facility] Catch [address] [address] Creatinine, random urine (07/17/2017 9:12 PM)Only the most recent of2 resultswithin the time period is included. Component Value Ref Range Creatinine, Ur 150.2 mg/dL Specimen Performing Laboratory Urine - Urine, [facility] Catch [address] [address] Narrative Reference Range: No Normals Drug screen, urine, comprehensive (07/17/2017 9:12 PM) Specimen Performing Laboratory Urine - Urine, Clean Catch [employer] [address] [place] [address] Blood typing, automated - at seperate draw time from initial type and screen ( 7:37 PM) Component Value Ref Range ABO/RH AUTOMATED (BEAKER) O NEGATIVE Specimen Performing Laboratory Blood [address] [address] HLA Testing (External Results) (07/17/2017 7:31 PM) Component Value Ref Range HLA TESTING (EXTERNAL) See Separate Report Specimen Performing Laboratory Blood [facility] IMMUNE EVALUATION LAB [facility] [place], [place]:[facility] [address] [place] [address] Toxoplasma gondii antibody, IgM (07/17/2017 7:29 PM) Component Value Ref Range Toxoplasma gondii IgM Negative Specimen Performing Laboratory [address] [address] Herpes virus antibody, IgM (07/17/2017 7:29 PM) Component Value Ref Range Herpes Virus IGM Negative Comment: HSV 1 IGM=NEG HSV 2 IGM=NEG Specimen Performing Laboratory [address] [address] Vitamin D, 25-Hydroxy (07/17/2017 7:29 PM) Component Value Ref Range Vitamin D 25-Hydroxy 24.7 6.6 - 49.9 ng/mL Specimen Performing Laboratory [address] [address] Narrative Effective 06/27/2017: Reference Range Change New: 6.6-49.9 ng/mL Previous: 13.0-47.8 ng/mL Recommended Vitamin D Target Range: 30.0-40.0 ng/mL Herpes virus antibody, IgG (07/17/2017 7:29 PM) Component Value Ref Range Herpes Virus IGG Negative Comment: HSV 1 IGG=NEG HSV 2 IGG=NEG Specimen Performing Laboratory Blood [address] [address] Toxoplasma gondii antibody, IgG (07/17/2017 7:29 PM) Component Value Ref Range Toxoplasma gondii IgG Negative Specimen Performing Laboratory [address] [address] RPR (07/17/2017 7:29 PM) Component Value Ref Range RPR Nonreactive Nonreactive Specimen Performing Laboratory Blood [address] [address] Varicella zoster antibody, IgG (07/17/2017 7:29 PM) Component Value Ref Range Varicella IgG >8.0 Al Specimen Performing Laboratory [address] [address] Narrative VARICELLA ZOSTER RESULT INTERPRETATIONS: <=0.8 AlNonreactive:Presumed non-immune to VZV 0.9-1.0 AlEquivocal >=1.1 AlReactive:Presumed immune to VZV Transferrin (07/17/2017 7:29 PM) Component Value Ref Range Transferrin 418 (H) 174 - 382 mg/dL Specimen Performing Laboratory [address] [address] T4, free (07/17/2017 7:29 PM) Component Value Ref Range Free T4 1.27 0.70 - 1.48 ng/dL Specimen Performing Laboratory [address] [address] PSA (07/17/2017 7:29 PM) Component Value Ref Range PSA 1.0 0.0 - 4.0 ng/mL Specimen Performing Laboratory Blood [address] [address] Iron, serum (07/17/2017 7:29 PM) Component Value Ref Range Iron 102 40 - 160 ug/dL Specimen Performing Laboratory [address] [address] Hepatitis A antibody, IgG (07/17/2017 7:00 PM) Component Value Ref Range Hep A IgG Nonreactive Nonreactive Specimen Performing Laboratory Blood - Arm, [address] [address] Creatinine Clearance (07/17/2017 7:00 PM) Specimen Performing Laboratory Other Narrative The following orders were created for panel order Creatinine Clearance. Procedure Abnormality Status --------- ------ Creatinine[[id number]] AbnormalFinal result Creatinine clearance[[id number]] Abnormal Final result Please view results for these tests on the individual orders. Type and screen, automated (07/17/2017 7:00 PM) Component Value Ref Range ABO/RH AUTOMATED (BEAKER) O NEGATIVE Ab Scrn NEGATIVE Specimen Performing Laboratory Blood - Arm, [address] [address] HIV-1 Antigen with HIV-1/2 Antibody (07/17/2017 7:00 PM) Component Value Ref Range HIV-1 Antigen with HIV 1&2 Antibody Nonreactive Nonreactive Specimen Performing Laboratory Blood - Arm, [address] [address] Cytomegalovirus antibody, IgM (07/17/2017 7:00 PM) Component Value Ref Range CMV IgM Negative Specimen Performing Laboratory Blood - Arm, [address] [address] Hepatitis panel, acute (07/17/2017 7:00 PM) Component Value Ref Range Hep A IgM Nonreactive Nonreactive Hep B C IgM Nonreactive Nonreactive Hepatitis C Ab Nonreactive Nonreactive hepatitis B Surface Ag Nonreactive Nonreactive Specimen Performing Laboratory Blood - Arm, [address] [address] EBV-VCA antibody, IgM (07/17/2017 7:00 PM) Component Value Ref Range EBV VCA IgM Negative Specimen Performing Laboratory Blood - Arm, [address] [address] EBV-VCA antibody, IgG (07/17/2017 7:00 PM) Component Value Ref Range EBV VCA IgG Positive Specimen Performing Laboratory Blood - Arm, [address] [address] Hepatitis B core antibody, total (07/17/2017 7:00 PM) Component Value Ref Range Hep B Core Total Ab Nonreactive Nonreactive Specimen Performing Laboratory Blood - Arm, [address] [address] Cytomegalovirus antibody, IgG (07/17/2017 7:00 PM) Component Value Ref Range CMV IgG Positive Specimen Performing Laboratory Blood - Arm, [address] [address] Reticulocyte count (07/17/2017 7:00 PM) Component Value Ref Range % Retic 1.6 0.5 - 1.8 % Specimen Performing Laboratory Blood - Arm, [address] [address] Direct AHG (MERCED)/Direct Ella (07/17/2017 7:00 PM) Component Value Ref Range Direct AHG-IGG NEGATIVE Direct AHG-C3B, C3D NEGATVIE Specimen Performing Laboratory Blood - Arm[address] [address] Anti-Nuclear Antibody (JOCELYNN) (07/17/2017 7:00 PM) Component Value Ref Range JOCELYNN Negative Negative Specimen Performing Laboratory Blood - Arm[address] [address] Lipase (07/17/2017 7:00 PM) Component Value Ref Range Lipase 43 8 - 78 U/L Specimen Performing Laboratory Blood - [address] [address] Gamma Glutamyl Transferase (GGT) (07/17/2017 7:00 PM) Component Value Ref Range GGT 13 9 - 64 U/L Specimen Performing Laboratory Blood - [address] [address] Ferritin (07/17/2017 7:00 PM) Component Value Ref Range Ferritin 75 5 - 275 ng/mL Specimen Performing Laboratory Blood - [address] [address] Creatinine (07/17/2017 7:00 PM) Component Value Ref Range Creatinine 1.75 (H) 0.57 - 1.25 mg/dL EGFR 39Comment: ESTIMATED GFR IS NOT ACCURATE mL/min/1.73 sq m CREATININE CLEARANCE IN PREDICTING GLOMERULAR FILTRATION RATE. ESTIMATED GFR IS NOT APPLICABLE FOR DIALYSIS PATIENTS. Specimen Performing Laboratory Blood - Arm, [address] [address] Amylase (07/17/2017 7:00 PM) Component Value Ref Range Amylase 72 25 - 125 U/L Specimen Performing Laboratory Blood - [address] [address] [address] chest without IV contrast (07/17/2017 6:01 PM) Specimen Performing Laboratory [facility] Narrative FINAL REPORT CT of the Chest and Abdomen dated 07/17/2017 Clinical information:Heart transplant evaluation Comment:Axial images of the chest and abdomen were obtained from thoracic inlet to the upper pelvis This exam was performed according to our departmental dose-optimization program, which includes automated exposure control, adjustment of the mA and/or kV according to patient size and/or use of interactive reconstruction technique. Heart is in upper limits of normal in size. Atherosclerotic calcification is seen in the thoracic aorta and coronary arteries. There is prior sternotomy and bypass surgery. Great vessels are unremarkable. No adenopathy in the mediastinum or perihilar region. Trachea and mainstem bronchus are patent. Minimal scarring seen in the left upper lobe. Subsegmental atelectasis is seen in the right upper and right lower lobe. The rest of the lungs are clear.No nodular, mass lesion or airspace disease noted.No bronchiectasis present. No pleural effusion or pleural based mass is seen. Liver and spleen are normal in size without focal abnormality. Gallbladder is contracted. No gallstone or biliary dilatation is noted. Pancreas and adrenals are unremarkable. Both kidneys are normal in size. No hydronephrosis or hydroureter is noted. Hyperdense collection is seen in the bilateral renal collecting system from recent intravenous contrast study. The small and large bowel are suboptimally evaluated secondary to lack of GI and intravenous contrast. No small or large bowel dilatation seen. Appendix is not visualized. Atherosclerotic calcification is seen in the abdominal aorta, superior mesenteric, bilateral renal, and bilateral arteries. No mass, adenopathy or ascites present. Impression: 1. Atherosclerotic calcification in the thoracic and abdominal aorta as well as branch vessels. 2. Minimal scarring in the left upper lobe and subsegmental atelectasis in the right upper and lower lobe. 3. Unremarkable noncontrast enhanced CT of the abdomen. Signed: Yuliya Garrett MD Report Verified Date/Time:07/17/2017 18:13:06 Reading Location: [address] Body Reading Room Procedure Note Interface, External Ris In - 07/17/2017 6:15 PM CDT FINAL REPORT CT of the Chest and Abdomen dated 07/17/2017 Clinical information: Heart transplant evaluation Comment: Axial images of the chest and abdomen were obtained from thoracic inlet to the upper pelvis This exam was performed according to our departmental dose-optimization program, which includes automated exposure control, adjustment of the mA and/or kV according to patient size and/or use of interactive reconstruction technique. Heart is in upper limits of normal in size. Atherosclerotic calcification is seen in the thoracic aorta and coronary arteries. There is prior sternotomy and bypass surgery. Great vessels are unremarkable. No adenopathy in the mediastinum or perihilar region. Trachea and mainstem bronchus are patent. Minimal scarring seen in the left upper lobe. Subsegmental atelectasis is seen in the right upper and right lower lobe. The rest of the lungs are clear. No nodular, mass lesion or airspace disease noted. No bronchiectasis present. No pleural effusion or pleural based mass is seen. Liver and spleen are normal in size without focal abnormality. Gallbladder is contracted. No gallstone or biliary dilatation is noted. Pancreas and adrenals are unremarkable. Both kidneys are normal in size. No hydronephrosis or hydroureter is noted. Hyperdense collection is seen in the bilateral renal collecting system from recent intravenous contrast study. The small and large bowel are suboptimally evaluated secondary to lack of GI and intravenous contrast. No small or large bowel dilatation seen. Appendix is not visualized. Atherosclerotic calcification is seen in the abdominal aorta, superior mesenteric, bilateral renal, and bilateral arteries. No mass, adenopathy or ascites present. Impression: 1. Atherosclerotic calcification in the thoracic and abdominal aorta as well as branch vessels. 2. Minimal scarring in the left upper lobe and subsegmental atelectasis in the right upper and lower lobe. 3. Unremarkable noncontrast enhanced CT of the abdomen. Signed: Yuliya Garrett MD Report Verified Date/Time: 07/17/2017 18:13:06 Reading Location: [facility] [id number] CT Body Reading Room abdomen without IV contrast (07/17/2017 6:01 PM) Specimen Performing Laboratory [facility] FINAL REPORT CT of the Chest and Abdomen dated 07/17/2017 Clinical information:Heart transplant evaluation Comment:Axial images of the chest and abdomen were obtained from thoracic inlet to the upper pelvis This exam was performed according to our departmental dose-optimization program, which includes automated exposure control, adjustment of the mA and/or kV according to patient size and/or use of interactive reconstruction technique. Heart is in upper limits of normal in size. Atherosclerotic calcification is seen in the thoracic aorta and coronary arteries. There is prior sternotomy and bypass surgery. Great vessels are unremarkable. No adenopathy in the mediastinum or perihilar region. Trachea and mainstem bronchus are patent. Minimal scarring seen in the left upper lobe. Subsegmental atelectasis is seen in the right upper and right lower lobe. The rest of the lungs are clear.No nodular, mass lesion or airspace disease noted.No bronchiectasis present. No pleural effusion or pleural based mass is seen. Liver and spleen are normal in size without focal abnormality. Gallbladder is contracted. No gallstone or biliary dilatation is noted. Pancreas and adrenals are unremarkable. Both kidneys are normal in size. No hydronephrosis or hydroureter is noted. Hyperdense collection is seen in the bilateral renal collecting system from recent intravenous contrast study. The small and large bowel are suboptimally evaluated secondary to lack of GI and intravenous contrast. No small or large bowel dilatation seen. Appendix is not visualized. Atherosclerotic calcification is seen in the abdominal aorta, superior mesenteric, bilateral renal, and bilateral arteries. No mass, adenopathy or ascites present. Impression: 1. Atherosclerotic calcification in the thoracic and abdominal aorta as well as branch vessels. 2. Minimal scarring in the left upper lobe and subsegmental atelectasis in the right upper and lower lobe. 3. Unremarkable noncontrast enhanced CT of the abdomen. Signed: Yuliya Garrett MD Report Verified Date/Time:07/17/2017 18:13:06 Reading Location: [address] Body Reading Room Procedure Note Interface, External Ris In - 07/17/2017 6:15 PM CDT FINAL REPORT CT of the Chest and Abdomen dated 07/17/2017 Clinical information: Heart transplant evaluation Comment: Axial images of the chest and abdomen were obtained from thoracic inlet to the upper pelvis This exam was performed according to our departmental dose-optimization program, which includes automated exposure control, adjustment of the mA and/or kV according to patient size and/or use of interactive reconstruction technique. Heart is in upper limits of normal in size. Atherosclerotic calcification is seen in the thoracic aorta and coronary arteries. There is prior sternotomy and bypass surgery. Great vessels are unremarkable. No adenopathy in the mediastinum or perihilar region. Trachea and mainstem bronchus are patent. Minimal scarring seen in the left upper lobe. Subsegmental atelectasis is seen in the right upper and right lower lobe. The rest of the lungs are clear. No nodular, mass lesion or airspace disease noted. No bronchiectasis present. No pleural effusion or pleural based mass is seen. Liver and spleen are normal in size without focal abnormality. Gallbladder is contracted. No gallstone or biliary dilatation is noted. Pancreas and adrenals are unremarkable. Both kidneys are normal in size. No hydronephrosis or hydroureter is noted. Hyperdense collection is seen in the bilateral renal collecting system from recent intravenous contrast study. The small and large bowel are suboptimally evaluated secondary to lack of GI and intravenous contrast. No small or large bowel dilatation seen. Appendix is not visualized. Atherosclerotic calcification is seen in the abdominal aorta, superior mesenteric, bilateral renal, and bilateral arteries. No mass, adenopathy or ascites present. Impression: 1. Atherosclerotic calcification in the thoracic and abdominal aorta as well as branch vessels. 2. Minimal scarring in the left upper lobe and subsegmental atelectasis in the right upper and lower lobe. 3. Unremarkable noncontrast enhanced CT of the abdomen. Signed: Yuliya Garrett MD Report Verified Date/Time: 07/17/2017 18:13:06 Reading Location: [facility] B1 C013Y CT Body Reading Room brain without IV contrast (07/17/2017 5:56 PM) Specimen Performing Laboratory On [facility] Yet Narrative FINAL REPORT CT Head without contrast CLINICAL HISTORY: Heart transplant evaluation TECHNIQUE: Contiguous axial images through the head without contrast. This exam was performed according to the departmental dose optimization program which includes automated exposure control, adjustment of the mA and/or kV according to the patient size, and/or use of an iterative reconstruction technique. COMPARISON: None FINDINGS: There is no CT evidence of acute infarct or intracranial hemorrhage. There is a small chronic right cerebellar infarct. There is mild generalized parenchymal volume loss without hydrocephalus, midline shift, or apparent mass effect. There are atherosclerotic calcifications of the intracranial circulation. There are no extra-axial fluid collections. The skull is intact. The visualized paranasal sinuses are well-aerated. IMPRESSION: Small chronic right cerebellar infarct. Signed: Keo Elizabeth MD Report Verified Date/Time:07/17/2017 17:55:05 Reading Location: [facility] Radiology Reading Room Procedure Note Interface, External Ris In - 07/17/2017 5:57 PM CDT FINAL REPORT CT Head without contrast CLINICAL HISTORY: Heart transplant evaluation TECHNIQUE: Contiguous axial images through the head without contrast. This exam was performed according to the departmental dose optimization program which includes automated exposure control, adjustment of the mA and/or kV according to the patient size, and/or use of an iterative reconstruction technique. COMPARISON: None FINDINGS: There is no CT evidence of acute infarct or intracranial hemorrhage. There is a small chronic right cerebellar infarct. There is mild generalized parenchymal volume loss without hydrocephalus, midline shift, or apparent mass effect. There are atherosclerotic calcifications of the intracranial circulation. There are no extra-axial fluid collections. The skull is intact. The visualized paranasal sinuses are well-aerated. IMPRESSION: Small chronic right cerebellar infarct. Signed: Keo Elizabeth MD Report Verified Date/Time: 07/17/2017 17:55:05 Reading Location: [facility] Radiology Reading Room Arterial doppler legs bilateral (07/17/2017 5:00 PM) Component Value Ref Range Ejection Fraction Specimen Performing Laboratory [facility]CHO [facility] Impressions Right Impression 1. The posterior tibial and dorsalis pedis arteries are patent with normal triphasic Doppler waveforms. 2. The PT pressure is 144 mmHg with an HITESH of 1.05 and the DP pressure is 149 mmHg with an HITESH of 1.09, within normal range. 3. The great toe pressure is 54 mmHg with an abnormal TBI of 0.39. 4. The digits have adequate flow by PPG waveforms. Left Impression 1. The posterior tibial and dorsalis pedis arteries are patent with normal triphasic Doppler waveforms. 2. The PT pressure is 135 mmHg with an HITESH of 0.99 and the DP pressure is 135 mmHg with an HITESH of 0.99, within normal range. 3. The great toe pressure is 56 mmHg with an abnormal TBI of 0.41. 4. The digits have adequate flow by PPG waveforms. Conclusions Summary Arterial pressures and Doppler waveforms were performed bilaterally. Adequate Doppler waveforms were obtained. Doppler waveforms were triphasic with normal flow bilaterally. The right and left HITESH's were within normal range. The toe pressure and TBI's were within an abnormal range, however, digital flow were adequate by PPG waveforms bilaterally. Signature Velocities are measured in cm/s ; Diameters are measured in cm Narrative [facility] - Lower Extremity Arterial Procedure Demographics Patient Name Magda JUÁREZ of Study2016 [id number] Age67 Visit Number [id number] Gender Male Accession Number [id number] Date of Birth1950 ReferringGeorge Alie ValentineRoom [id number] Physician SonographJamal Rodriguez Interpreting Young Monroy MD, EWA Zhou Procedure Type of Study: Extremities Arteries: Lower Extremity Arterial Procedure, ARTERIAL (HITESH'S W/DOPPLER) ONLY. Indications for Study:Heart transplant evaluation . Patient Status:Routine. Study Location:Vascular Lab. Technical Quality:Adequate visualization. Risk Factors History of Disease + + + + !Diagnosis!Date!Comments ! + + + + !History/Risk !07/17/2017!CHF, CAD s/p CABG, Ischemic CMP, AICD/PPM, ! !Factors: !!HLD and former smoker! + + + + Procedure Note Interface, External Ris In - 07/17/2017 8:21 PM CDT [facility] - Lower Extremity Arterial Procedure Demographics Patient Name MAGGY JUÁREZ Date of Study 07/17/2017 Age 67 Visit Number [id number] Gender Male Accession Number [id number] Date of 1950 Referring Eduin LatifMatteo Room Number 1151 Physician Associate Media Planner Dwayne Rodriguez Interpreting Lee Mercado S Physician , EWA Zhou Procedure Type of Study: Extremities Arteries: Lower Extremity Arterial Procedure, ARTERIAL (HITESH'S W/DOPPLER) ONLY. Indications for Study:Heart transplant evaluation . Patient Status:Routine. Study Location:Vascular Lab. Technical Quality:Adequate visualization. Risk Factors History of Disease + + + + !Diagnosis !Date !Comments ! + + + + !History/Risk !07/17/2017!CHF, CAD s/p CABG, Ischemic CMP, AICD/PPM, ! !Factors: ! !HLD and former smoker ! + + + + Impressions Right Impression 1. The posterior tibial and dorsalis pedis arteries are patent with normal triphasic Doppler waveforms. 2. The PT pressure is 144 mmHg with an HITESH of 1.05 and the DP pressure is 149 mmHg with an HITESH of 1.09, within normal range. 3. The great toe pressure is 54 mmHg with an abnormal TBI of 0.39. 4. The digits have adequate flow by PPG waveforms. Left Impression 1. The posterior tibial and dorsalis pedis arteries are patent with normal triphasic Doppler waveforms. 2. The PT pressure is 135 mmHg with an HITESH of 0.99 and the DP pressure is 135 mmHg with an HITESH of 0.99, within normal range. 3. The great toe pressure is 56 mmHg with an abnormal TBI of 0.41. 4. The digits have adequate flow by PPG waveforms. Conclusions Summary Arterial pressures and Doppler waveforms were performed bilaterally. Adequate Doppler waveforms were obtained. Doppler waveforms were triphasic with normal flow bilaterally. The right and left HITESH's were within normal range. The toe pressure and TBI's were within an abnormal range, however, digital flow were adequate by PPG waveforms bilaterally. Signature Velocities are measured in cm/s ; Diameters are measured in cm Carotid doppler bilateral (07/17/2017 4:48 PM) Component Value Ref Range Ejection Fraction Specimen Performing Laboratory [facility] ECHO HEART[facility] Impressions Right Impression 1. There is <50% diameter reduction (approximately 29% by 2-D measurement) in the internal carotid artery with a peak velocity of 57 cm/sec and heterogeneous plaque. 2. There is non-occluding plaque in the external carotid artery. 3. There is non-occluding plaque in the common carotid artery. 4. The vertebral artery flow is antegrade and normal. 5. There is non-occluding plaque in the subclavian artery with normal triphasic flow and a velocity of 149 cm/sec. Left Impression 1. There is <50% diameter reduction (approximately 35% by 2-D measurement) in the internal carotid artery with a peak velocity of 56 cm/sec and heterogeneous plaque. 2. There is non-occluding plaque in the external carotid artery. 3. There is non-occluding plaque in the common carotid artery. 4. The vertebral artery flow is antegrade and normal. 5. There is non-occluding plaque in the subclavian artery with normal triphasic flow and a velocity of 101 cm/sec. Conclusions Summary Carotid duplex scanning and color flow imaging were performed bilaterally. The arteries were adequately visualized. The right internal carotid artery had <50% hemodynamically insignificant stenosis (approximately 29% by 2-D measurement) with heterogeneous plaque. The left internal carotid artery had <50% hemodynamically insignificant stenosis (approximately 35% by 2-D measurement) with heterogeneous plaque. Carotid duplex scanning and color flow imaging were performed bilaterally. The arteries were adequately visualized. The bilateral internal carotid arteries had <50% hemodynamically insignificant stenosis (approximately 29% by 2-D measurement on the right, approximately 35% by 2-D measurement on the left) with heterogeneous plaque. The vertebral artery flow was antegrade and normal bilaterally. The subclavian arteries were patent with normal flow bilaterally where visualized. Signature Velocities are measured in cm/s ; Diameters are measured in cm Carotid Right Measurements + +----+----+-----+ + + + !Location !PSV !EDV !Angle!%Stenosis 2D!%Stenosis Doppler! Tortuosity ! + +----+----+-----+ + + + !Prox CCA !65.7!16.4!60 !! ! ! + +----+----+-----+ + + + !Dist CCA !47.9!13.8!60 !! ! ! + +----+----+-----+ + + + !Prox ICA !57.5!15.8!60 !29!<50% ! ! + +----+----+-----+ + + + !Dist ICA !83.3!22.9!60 !! ! ! + +----+----+-----+ + + + !Prox ECA !82.7!!60 !! ! ! + +----+----+-----+ + + + !Vertebral!42.4!8.64!60 !! ! ! + +----+----+-----+ + + + !Prox Subclavian!149 !!60 !! ! ! + +----+----+-----+ + + + - There is antegrade vertebral flow noted on the right side. - Additional Measurements:ICAPSV/CCAPSV 1.74.ICAEDV/CCAEDV 1.4. Carotid Left Measurements + +----+----+-----+ + + + !Location !PSV !EDV !Angle!%Stenosis 2D!%Stenosis Doppler! Tortuosity ! + +----+----+-----+ + + + !Prox CCA !61.7!15.3!60 !! ! ! + +----+----+-----+ + + + !Dist CCA !64.8!16.5!60 !! ! ! + +----+----+-----+ + + + !Prox ICA !55.8!14.9!60 !35!<50% ! ! + +----+----+-----+ + + + !Dist ICA !65.6!21.6!60 !! ! ! + +----+----+-----+ + + + !Prox ECA !153 !35.4!60 !! ! ! + +----+----+-----+ + + + !Vertebral!56.6!13.8!60 !! ! ! + +----+----+-----+ + + + !Prox Subclavian!101 !!60 !! ! ! + +----+----+-----+ + + + - There is antegrade vertebral flow noted on the left side. - Additional Measurements:ICAPSV/CCAPSV 1.01.ICAEDV/CCAEDV 1.41. Narrative [facility] - Carotid Duplex Study Demographics Patient Name Magda JUÁREZ of Study2016 [id number] Age67 Visit Number [id number] Gender Male Accession Number [id number] Date of Birth1950 ReferringGeor Alie ValentineRoom [id number] Physician SonographYoung Lala MD, EWA Zhou Procedure Type of Study: Cerebral: Carotid, CAROTID DOPPLER, BILATERAL. Indications for Study:Heart transplant evaluation . Patient Status:Routine. Study Location:Vascular Lab. Technical Quality:Adequate visualization. Risk Factors History of Disease + + + + !Diagnosis!Date!Comments ! + + + + !History/Risk !07/17/2017!CHF, CAD s/p CABG, Ischemic CMP, AICD/PPM, ! !Factors: !!HLD and former smoker! + + + + Procedure Note Interface, External Ris In - 07/17/2017 8:22 PM CDT [facility] - Carotid Duplex Study Demographics Patient Name MAGGY JUÁREZ Date of Study 07/17/2017 Age 67 Visit Number [id number] Gender Male Accession Number [id number] Date of 1950 Referring Eduin Valentine Room Number 1151 Physician Associate Media Planner Dwayne Rodriguez Interpreting GITA Monroy Physician EWA COLEMAN Procedure Type of Study: Cerebral: Carotid, CAROTID DOPPLER, BILATERAL. Indications for Study:Heart transplant evaluation . Patient Status:Routine. Study Location:Vascular Lab. Technical Quality:Adequate visualization. Risk Factors History of Disease + + + + !Diagnosis !Date !Comments ! + + + + !History/Risk !07/17/2017!CHF, CAD s/p CABG, Ischemic CMP, AICD/PPM, ! !Factors: ! !HLD and former smoker ! + + + + Impressions Right Impression 1. There is <50% diameter reduction (approximately 29% by 2-D measurement) in the internal carotid artery with a peak velocity of 57 cm/sec and heterogeneous plaque. 2. There is non-occluding plaque in the external carotid artery. 3. There is non-occluding plaque in the common carotid artery. 4. The vertebral artery flow is antegrade and normal. 5. There is non-occluding plaque in the subclavian artery with normal triphasic flow and a velocity of 149 cm/sec. Left Impression 1. There is <50% diameter reduction (approximately 35% by 2-D measurement) in the internal carotid artery with a peak velocity of 56 cm/sec and heterogeneous plaque. 2. There is non-occluding plaque in the external carotid artery. 3. There is non-occluding plaque in the common carotid artery. 4. The vertebral artery flow is antegrade and normal. 5. There is non-occluding plaque in the subclavian artery with normal triphasic flow and a velocity of 101 cm/sec. Conclusions Summary Carotid duplex scanning and color flow imaging were performed bilaterally. The arteries were adequately visualized. The right internal carotid artery had <50% hemodynamically insignificant stenosis (approximately 29% by 2-D measurement) with heterogeneous plaque. The left internal carotid artery had <50% hemodynamically insignificant stenosis (approximately 35% by 2-D measurement) with heterogeneous plaque. Carotid duplex scanning and color flow imaging were performed bilaterally. The arteries were adequately visualized. The bilateral internal carotid arteries had <50% hemodynamically insignificant stenosis (approximately 29% by 2-D measurement on the right, approximately 35% by 2-D measurement on the left) with heterogeneous plaque. The vertebral artery flow was antegrade and normal bilaterally. The subclavian arteries were patent with normal flow bilaterally where visualized. Signature Velocities are measured in cm/s ; Diameters are measured in cm Carotid Right Measurements + +----+----+-----+ + + + !Location !PSV !EDV !Angle!%Stenosis 2D!%Stenosis Doppler!Tortuosity ! + +----+----+-----+ + + + !Prox CCA !65.7!16.4!60 ! ! ! ! + +----+----+-----+ + + + !Dist CCA !47.9!13.8!60 ! ! ! ! + +----+----+-----+ + + + !Prox ICA !57.5!15.8!60 !29 !<50% ! ! + +----+----+-----+ + + + !Dist ICA !83.3!22.9!60 ! ! ! ! + +----+----+-----+ + + + !Prox ECA !82.7! !60 ! ! ! ! + +----+----+-----+ + + + !Vertebral !42.4!8.64!60 ! ! ! ! + +----+----+-----+ + + + !Prox Subclavian!149 ! !60 ! ! ! ! + +----+----+-----+ + + + - There is antegrade vertebral flow noted on the right side. - Additional Measurements:ICAPSV/CCAPSV 1.74.ICAEDV/CCAEDV 1.4. Carotid Left Measurements + +----+----+-----+ + + + !Location !PSV !EDV !Angle!%Stenosis 2D!%Stenosis Doppler!Tortuosity ! + +----+----+-----+ + + + !Prox CCA !61.7!15.3!60 ! ! ! ! + +----+----+-----+ + + + !Dist CCA !64.8!16.5!60 ! ! ! ! + +----+----+-----+ + + + !Prox ICA !55.8!14.9!60 !35 !<50% ! ! + +----+----+-----+ + + + !Dist ICA !65.6!21.6!60 ! ! ! ! + +----+----+-----+ + + + !Prox ECA !153 !35.4!60 ! ! ! ! + +----+----+-----+ + + + !Vertebral !56.6!13.8!60 ! ! ! ! + +----+----+-----+ + + + !Prox Subclavian!101 ! !60 ! ! ! ! + +----+----+-----+ + + + - There is antegrade vertebral flow noted on the left side. - Additional Measurements:ICAPSV/CCAPSV 1.01.ICAEDV/CCAEDV 1.41. aPTT (07/14/2017 1:54 AM)Only the most recent of3 resultswithin the time period is included. Component Value Ref Range PTT 25.9 22.5 - 36.0 seconds Specimen Performing Laboratory Blood [address] [address] ECHOCARDIOGRAM REPORT - SCAN (07/13/2017 1:50 PM)Troponin I (07/13/2017 12:16 PM)Only the most recent of3 resultswithin the time period is included. Component Value Ref Range Troponin I 0.11 (H) 0.00 - 0.03 ng/mL Specimen Performing Laboratory Blood [address] [address] Narrative Troponin I (TnI) levels must be interpreted in the context of the presenting symptoms and the clinical findings. Elevated TnI levels indicate myocardial damage, but are not specific for ischemic heart disease. Elevated TnI levels are seen in patients with other cardiac conditions (including myocarditis and congestive heart failure), and slight TnI elevations occur in patients with other conditions, including sepsis, renal failure, acidosis, acute neurological disease, and persistent tachyarrhythmia. Creatine Kinase (CK), Total and MB (07/13/2017 12:16 PM)Only the most recent of3 resultswithin the time period is included. Component Value Ref Range Total CK 142 29 - 200 U/L CK-MB 5.3 0.0 - 6.6 ng/mL MB Relative Index 3.7 % Specimen Performing Laboratory Blood [address] [address] Narrative CK-MB Reference Range: <6.7Normal 6.7-10.0Borderline >10.0 Abnormal Transthoracic 2D echo w/ doppler (cw/pw/color) (07/13/2017 9:39 AM) Component Value Ref Range Ejection Fraction Specimen Performing Laboratory [facility] Narrative Transthoracic Echocardiography Report (TTE) Demographics Patient Name MAGGY JUÁREZ Date of Study 07/13/2017 [id number] Male Visit Number [id number] [id number] Room Number 1151 Number Date of Birth1950Referring Physician Ventura Espitia MD Age67 year(s)Associate Media Planner Mis Jarrell RDCS AnalystIzoMD Frank Olivarezhysicinahomy Procedure Type of Study TTE procedure:2DECHO W DOPPLER(CW/PW/COLOR) (STAT) Indications:Acute Chest Pain/ Suspected CAD. Clinical History HGB 14.8 HCT 46.4 % CHF, CAD, DM, HLD, AICD/PPM s/p Coronary stent s/p CABG Height: 64 inches Weight: 74.84 kg (165 lbs) BSA: 1.8 m^2 BMI: 28.32 kg/m^2 HR: 68 bpm BP: 113/61 mmHg Summary 1. The LV is severely enlarged. The LV function is moderate to severely depressed. LVEF is 30%. 2. Diastology: Grade 3 diastolic dysfunction 3. The RV is normal in size. Depressed RV function 4. No significant valvular heart disease. 5. Mild tricuspid regurgitation. Estimated RVSP is 35-40 mm Hg. Previous Study No prior exam available for comparison. Signature Findings Technical Quality: Technically adequate exam. Rhythm/BPRegular sinus rhythm during the exam. Left Ventricle No evidence of LV hypertrophy. Septal motion is abnormal, likely related to prior cardiac surgery . . Global LV systolic function wepthyll-zr-ksrdoknn reduced . LVEF by Smith's method of disk assessment is moderately-to- severe reduced (30%) . The LVEF was measured using Smith's bi-plane method of disk . Low (cardiac index <2 L/min/m2) cardiac output state at rest is noted. Grade 3 diastolic dysfunction (marked elevated LA pressure). The left ventricle is chamber size (by vol index) is severely enlarged (male - LVED vol >100ml/m2). Left AtriumLA size is severely enlarged (>48 ml/m2) . Right VentricleRV chamber size is normal . Global RV systolic function is depressed.RV pacing wire is visualized . Right Atrium RA cavity size is normal . RA pacing wire is visualized . Aortic Valve Mild AoV cusp thickening and calcification. Mitral Valve Mild MV leaflet thickening. Mild mitral regurgitation. Calcification is noted in the MV sub-valvular apparatus. Tricuspid ValveMild tricuspid regurgitation. Estimated peak systolic PA pressure is 35-40 mmHg . Pulmonic Valve Mild pulmonary regurgitation. AortaAortic root size (SInus of Valsalva diameter) is normal . Proximal ascending aorta size is normal . PericardiumNo pericardial effusion is visualized. IVC/SVC/PA/PV/PleuralThe right upper pulmonary vein (RUPV) is abnormal . Pulmonary vein flow is consistent with increased LAP . The estimated RA pressure by IVC dynamics 5-10mmHg . Chambers/Structures Left Atrium LA Volume: 97.35 ml LA Area: 28.37 cm^ 2 LA Vol. Index: 54 ml/m^2 Left Ventricle LV Septum Diastolic: 0.8 cm LV PW Diastolic: 0.95 cm LVEDV BP Smith's:205.18 ml LVESV BP Smith's:143.72 ml LVEF BP Smith's: 30 % LVOT Diameter: 1.97 cm Right Ventricle TAPSE: 1.77 cm Aorta Ao Root S of Shari.: 3.27 cmAscending Aorta: 3.52 cm Shunts QS:40.42 ml Doppler/Quantitative Measurements Mitral Valve MV Peak E-Wave: 1.27 m/sMV Peak A-Wave: 0.58 m/s E/ A Ratio: 2.21 Peak Gradient: 6.47 mmHg Deceleration Time: 156.8 msec Tissue Doppler E' Lateral Velocity: 0.04 m/s E/E': 29.44 LVOT Peak Velocity: 0.81 m/s Peak Gradient: 2.65 mmHg Mean Velocity: 0.56 m/s Mean Gradient: 1.44 mmHg LVOT Diameter: 1.97 cmLVOT VTI: 13.26 cm LVOT Area: 3.05 cm^2LVOT SV:40.4 ml LVOT CO: 2.75 l/min LVOT CI: 1.53 l/min/m^2 Tricuspid Valve TR Velocity: 2.67 m/s TR Gradient: 28.51 mmHg Procedure Note Interface, External Ris In - 07/13/2017 1:07 PM CDT Transthoracic Echocardiography Report (TTE) Demographics Patient Name MAGGY JUÁREZ Date of Study 07/13/2017 Gender Male Visit Number [id number] Race Room Number 1151 Number Date of 1950 Referring Physician Ventura Espitia MD Age 67 year(s) Associate Media Planner Mis Jarrell, [facility] Java Tech Rene Peterson Interpreting Nico Paulson MD [place]iol[place]osé miguel Physician Procedure Type of Study TTE procedure:2DECHO W DOPPLER(CW/PW/COLOR) (STAT) Indications:Acute Chest Pain/ Suspected CAD. Clinical History HGB 14.8 HCT 46.4 % CHF, CAD, DM, HLD, AICD/PPM s/p Coronary stent s/p CABG Height: 64 inches Weight: 74.84 kg (165 lbs) BSA: 1.8 m^2 BMI: 28.32 kg/m^2 HR: 68 bpm BP: 113/61 mmHg Summary 1. The LV is severely enlarged. The LV function is moderate to severely depressed. LVEF is 30%. 2. Diastology: Grade 3 diastolic dysfunction 3. The RV is normal in size. Depressed RV function 4. No significant valvular heart disease. 5. Mild tricuspid regurgitation. Estimated RVSP is 35-40 mm Hg. Previous Study No prior exam available for comparison. Signature Findings Technical Quality: Technically adequate exam. Rhythm/BP Regular sinus rhythm during the exam. Left Ventricle No evidence of LV hypertrophy. Septal motion is abnormal, likely related to prior cardiac surgery . . Global LV systolic function spvsntbh-sx-oznevbmq reduced . LVEF by Smith's method of disk assessment is nsvnmcobbf-gu-ghjtgg reduced (30%) . The LVEF was measured using Smith's bi-plane method of disk . Low (cardiac index <2 L/min/m2) cardiac output state at rest is noted. Grade 3 diastolic dysfunction (marked elevated LA pressure). The left ventricle is chamber size (by vol index) is severely enlarged (male - LVED vol >100ml/m2). Left Atrium LA size is severely enlarged (>48 ml/m2) . Right Ventricle RV chamber size is normal . Global RV systolic function is depressed.RV pacing wire is visualized . Right Atrium RA cavity size is normal . RA pacing wire is visualized . Aortic Valve Mild AoV cusp thickening and calcification. Mitral Valve Mild MV leaflet thickening. Mild mitral regurgitation. Calcification is noted in the MV sub-valvular apparatus. Tricuspid Valve Mild tricuspid regurgitation. Estimated peak systolic PA pressure is 35-40 mmHg . Pulmonic Valve Mild pulmonary regurgitation. Aorta Aortic root size (SInus of Valsalva diameter) is normal . Proximal ascending aorta size is normal . Pericardium No pericardial effusion is visualized. IVC/SVC/PA/PV/Pleural The right upper pulmonary vein (RUPV) is abnormal . Pulmonary vein flow is consistent with increased LAP . The estimated RA pressure by IVC dynamics 5-10mmHg . Chambers/Structures Left Atrium LA Volume: 97.35 ml LA Area: 28.37 cm^2 LA Vol. Index: 54 ml/m^2 Left Ventricle LV Septum Diastolic: 0.8 cm LV PW Diastolic: 0.95 cm LVEDV BP Smith's:205.18 ml LVESV BP Smith's:143.72 ml LVEF BP Smith's: 30 % LVOT Diameter: 1.97 cm Right Ventricle TAPSE: 1.77 cm Aorta Ao Root S of Shari.: 3.27 cm Ascending Aorta: 3.52 cm Shunts QS:40.42 ml Doppler/Quantitative Measurements Mitral Valve MV Peak E-Wave: 1.27 m/s MV Peak A-Wave: 0.58 m/s E/A Ratio: 2.21 Peak Gradient: 6.47 mmHg Deceleration Time: 156.8 msec Tissue Doppler E' Lateral Velocity: 0.04 m/s E/E': 29.44 LVOT Peak Velocity: 0.81 m/s Peak Gradient: 2.65 mmHg Mean Velocity: 0.56 m/s Mean Gradient: 1.44 mmHg LVOT Diameter: 1.97 cm LVOT VTI: 13.26 cm LVOT Area: 3.05 cm^2 LVOT SV:40.4 ml LVOT CO: 2.75 l/min LVOT CI: 1.53 l/min/m^2 Tricuspid Valve TR Velocity: 2.67 m/s TR Gradient: 28.51 mmHg US renal complete (07/13/2017 8:45 AM) Specimen Performing Laboratory [facility] Narrative FINAL REPORT Ultrasound of the Kidneys, 07/13/2017. Clinical History: Acute kidney injury. Discussion: Sonographic evaluation of the kidneys is performed. Right kidney:10.2 cm in length, normal in size, with cortical thickness of 1.3 cm.Normal cortical echogenicity.No mass.No shadowing calculus.No hydronephrosis. Left kidney: 9.5 cm in length, normal in size, with cortical thickness of 1.5 cm.Normal cortical echogenicity.No mass.No shadowing calculus.No hydronephrosis. Limited Doppler evaluation demonstrates normal color Doppler flow within bilateral renal terry. Fluid:No perinephric fluid. Bladder:Unremarkable. IMPRESSION: Unremarkable ultrasound of the bilateral kidneys. Signed: Andrés Trejo MD Report Verified Date/Time:07/13/2017 09:15:34 Reading Location: [address] Ultrasound Reading Room Procedure Note Interface, External Ris In - 07/13/2017 9:17 AM CDT FINAL REPORT Ultrasound of the Kidneys, 07/13/2017. Clinical History: Acute kidney injury. Discussion: Sonographic evaluation of the kidneys is performed. Right kidney: 10.2 cm in length, normal in size, with cortical thickness of 1.3 cm. Normal cortical echogenicity. No mass. No shadowing calculus. No hydronephrosis. Left kidney: 9.5 cm in length, normal in size, with cortical thickness of 1.5 cm. Normal cortical echogenicity. No mass. No shadowing calculus. No hydronephrosis. Limited Doppler evaluation demonstrates normal color Doppler flow within bilateral renal terry. Fluid: No perinephric fluid. Bladder: Unremarkable. IMPRESSION: Unremarkable ultrasound of the bilateral kidneys. Signed: Andrés Trejo MD Report Verified Date/Time: 07/13/2017 09:15:34 Reading Location: [facility] [id number] Ultrasound Reading Room Platelet count (07/13/2017 8:05 AM) Component Value Ref Range Platelets 183 150 - 450 K/CU MM Specimen Performing [place] [address] ED ECG Interpretation (07/13/2017 6:49 AM) Narrative Saul Tariq MD 07/13/20176:49 AM ECG/EKG Interpretation Date/Time: 07/12/2017 10:44 PM Performed by: SAUL TARIQ Authorized by: SAUL TARIQ The ECG was interpreted by ED physician. This ECG was not compared with previous ECG(s).The ECG is interpreted as sinus rhythm. Rate is normal rate. [place] is normal. Clinical Impression: non-specific ECGECG reviewed and does not meet STEMI criteria. Patient tolerance: Patient tolerated the procedure well with no immediate complications Critical Care (07/13/2017 6:49 AM) Narrative Saul Tariq MD 07/13/20176:49 AM Critical Care Performed by: SAUL TARIQ Authorized by: SAUL TARIQ Total critical care time: 35 minutes Critical care time was exclusive of separately billable procedures and treating other patients. Critical care was necessary to treat or prevent imminent or life-threatening deterioration of the following conditions: cardiac failure. Critical care was time spent personally by me on the following activities: review of old charts, pulse oximetry, ordering and review of laboratory studies, obtaining history from patient or surrogate, re-evaluation of patient's condition, ordering and performing treatments and interventions, ordering and review of radiographic studies, examination of patient and evaluation of patient's response to treatment. Rapid drug screen, urine (07/13/2017 6:35 AM) Component Value Ref Range Barbiturate Screen Negative Negative Benzodiazepine Screen Negative Negative Cocaine (Metab.) Screen Negative Negative Methadone Screen Negative Negative Opiate Screen Negative Negative Cannabinoid Screen Negative Negative Amph/Methamph Screen Negative Negative Phencyclidine Screen Negative Negative Oxycodone Screen Negative Negative Specimen Performing Laboratory Urine [address] [address] Narrative [facility]. Cocaine 300 ng/mL [id number] ng/mL [id number] ng/mL Barbiturate 200 ng/mL Nvxbfcwanfcwo52 ng/mL Jvmqix578 ng/mL Methadone 300 ng/mL Amphetamine/ 1000 ng/mL Methamphetamine Oxycodone 300 ng/mL This assay provides an unconfirmed qualitative test result for the clinical management of patients in emergency situations. Chain of custody not maintained. Some nbtt-[id number] medications, as well as adulterants, may cause inaccurate results. Clinical correlation should be applied. A more comprehensive drug screen or confirmation of a detected drug may be performed upon request. Sodium, random urine (07/13/2017 6:35 AM) Component Value Ref Range Sodium Urine 95 meq/L Specimen Performing Laboratory Urine [address] [address] Narrative Reference Range: No Normals Urinalysis w/Microscopic (07/13/2017 6:35 AM) Component Value Ref Range Color, UA Light Yellow Clarity, UA Clear Specific Barnes, UA 1.007 1.001 - 1.035 pH, UA 5.0 5.0 - 8.0 Protein, UA Negative Negative Glucose, UA 300 mg/dL (A) Negative Ketones, UA Negative Negative Bilirubin, UA Negative Negative Blood, UA Negative Negative Nitrite, UA Negative Negative Leukocytes, UA Negative Negative Urobilinogen, UA 0.2 0.2 - 1.0 mg/dL RBC, UA 1 /HPF WBC, UA 4 /HPF Mucus Rare Squam Epithel, UA 1 /HPF Specimen Source Specimen Performing Laboratory Urine [address] [address] XR chest 1 view portable / bedside (07/12/2017 10:27 PM) Specimen Performing Laboratory [facility] Narrative FINAL REPORT EXAMINATION:AP PORTABLE CHEST RADIOGRAPH CLINICAL INDICATION: Intubated IMPRESSION: Compared with 05/26/2017 Patient is status post cardiothoracic surgery and placement of a right subclavian AICD. The heart is mildly enlarged for this projection. Opacities are noted in both lungs with a perihilar and basilar distribution. Morphology and distribution favor pulmonary edema. More confluent opacities may reflect associated passive atelectasis. An underlying pneumonia, aspiration or mass lesion cannot be excluded on today's limited study. No evidence of a large pleural effusion or pneumothorax. Patient is status post a right shoulder arthroplasty. No evidence of an acute osseous abnormality. In summary, constellation of findings worrisome for fluid overload/heart failure. Note: Examination was not initially available for dictation secondary to technical issues (XO1 downtime). Signed: Whitney Mock MD Report Verified Date/Time:07/13/2017 01:09:11 Reading Location: [address] Reading Room Procedure Note Interface, External Ris In - 07/13/2017 1:11 AM CDT FINAL REPORT EXAMINATION: AP PORTABLE CHEST RADIOGRAPH CLINICAL INDICATION: Intubated IMPRESSION: Compared with 05/26/2017 Patient is status post cardiothoracic surgery and placement of a right subclavian AICD. The heart is mildly enlarged for this projection. Opacities are noted in both lungs with a perihilar and basilar distribution. Morphology and distribution favor pulmonary edema. More confluent opacities may reflect associated passive atelectasis. An underlying pneumonia, aspiration or mass lesion cannot be excluded on today's limited study. No evidence of a large pleural effusion or pneumothorax. Patient is status post a right shoulder arthroplasty. No evidence of an acute osseous abnormality. In summary, constellation of findings worrisome for fluid overload/heart failure. Note: Examination was not initially available for dictation secondary to technical issues (XO1 downtime). Signed: Whitney Mock MD Report Verified Date/Time: 07/13/2017 01:09:11 Reading Location: [address] Reading Room after 03/25/2017
--- OUTSIDE RECORDS SUMMARY | 2018-03-26 10:30 | XMS REPORT | Continuity of Care Document ---
:1950 Author Organization Interface Problems Problem Status Onset Classification Date Comments Source Date Reported PRIMARY Active [place] OSTEOARTHRITIS 6 [place] RIGHT SHOULDER-715.11 (M19.011) / [place] PRIMARY Active [facility] OSTEOARTHRITIS 6 [place] RIGHT SHOULDER-71 CAD (<span Active Problem 09/11/2016 [facility] ID="[id number]"> [place] Confirmed</span>) CHF (<span Active Problem 09/11/2016 [place] ID="[id number]"> [place] Confirmed</span>) Diabetes Active Problem 09/11/2016 [facility] Hyperlipidemia Active Problem 09/11/2016 [facility] Osteoarthritis Active Problem 09/11/2016 [facility] Medications Medication Details Route Status Patient Ordering Order Source Instructions Provider Date celecoxib 200 mg, 1 cap, No Longer Route: PO, Drug Active 2015 [place] form: CAP, Q12H, [place] Dosing Weight 76.545, kg, Start date: 09/07/16 19:00:00 STEPDOWN NURSE, Duration: 30 day, Stop date: 10/07/16 7:00:00 CSTNotes: NSAID. Please check indication. Not for seizure. (Same As: CeleBREX) Insulin, Aspart, 2 unit, 0.02 mL, No Longer Human Route: SUB-Q, Drug Active 2015 [place] form: SOLN, Land TID-Before Meals, Dosing Weight 74.091, kg, PRN Blood Glucose Results, Start date: 09/07/16 17:24:00 STEPDOWN NURSE, Duration: 30 day, Stop date: 10/07/16 17:23:00 CSTNotes: Roll in palms of hands gently; Do not shake vigorously. (Same as: NovoLOG) "single patient use only" WASTE: F/P - Black; E - Municipal Trash Bin Stable for 28 days at room temperature. Expires in days from Date Glucagon 1 mg, Route: IM, No Longer Drug form: Active 2015 [place] PDR/INJ, PRN, [place] Dosing Weight 74.091, kg, PRN Blood Glucose Results, Start date: 09/07/16 17:24:00 STEPDOWN NURSE, Duration: 30 day, Stop date: 10/07/16 17:23:00 STEPDOWN NURSE Dextrose 50% 25 gm, 50 mL, No Longer Syringe Route: IVP, Drug Active 2015 [place] Form: INJ, Dosing [place] Weight 74.091, kg, PRN, PRN Blood Glucose Results, Start date: 09/07/16 17:24:00 STEPDOWN NURSE, Duration: 30 day, Stop date: 10/07/16 17:23:00 STEPDOWN NURSE Docusate Sodium 100 mg, 1 cap, Inactive 100 MG Oral Route: PO, Drug 2015 [place] Capsule form: CAP, BID, [place] Dosing Weight 76.545, kg, Start date: 09/07/16 17:00:00 STEPDOWN NURSE, Duration: 30 day, Stop date: 10/07/16 9:00:00 CSTNotes: (Same as: Colace) (Do Not Crush) Docusate 100 mg, 1 cap, No Longer Route: PO, Drug Active 2015 [place] form: CAP, BID, [place] Dosing Weight 76.545, kg, Start date: 09/07/16 17:00:00 STEPDOWN NURSE, Duration: 30 day, Stop date: 10/07/16 9:00:00 CSTNotes: (Same as: Colace) (Do Not Crush) ceFAZolin (SCIP) 1 gm, Route: IVPB, Inactive + sodium chloride Q8H, Dosing Weight 2015 [place] 0.9% INJ 100 mL 76.545, kg, Start [place] date: 09/07/16 16:00:00 STEPDOWN NURSE, Duration: 1 doses or times, Stop date: 09/07/16 16:00:00 CSTNotes: (Same As: Vanessa Tierney) MEDICATION WASTE Product Size: 1000 mg Product Wasted: ___ mg Ondansetron 4 mg, 2 mL, Route: No Longer IVP, Drug form: Active 2015 [place] INJ, Q8H, Dosing [place] Weight 76.545, kg, Start date: 09/07/16 16:00:00 STEPDOWN NURSE, Duration: 2 day, Stop date: 09/09/16 8:00:00 CSTNotes: (Same as: Willem) MEDICATION WASTE Product Size: 4 mg Product Wasted: ___ mg Ondansetron 4 mg, 2 mL, Route: No Longer IVP, Drug form: Active 2015 [place] INJ, Q6H, Dosing [place] Weight 74.091, kg, PRN Nausea & Vomiting, Start date: 09/07/16 15:04:00 STEPDOWN NURSE, Duration: 30 day, Stop date: 10/07/16 15:03:00 CSTNotes: (Same as: Willem) MEDICATION WASTE Product Size: 4 mg Product Wasted: ___ mg Acetaminophen 1,000 mg, 100 mL, No Longer Route: IVPB, Drug Active 2015 [place] form: INJ, Q6H, [place] Dosing Weight 76.545, kg, Start date: 09/07/16 15:00:00 STEPDOWN NURSE, Duration: 30 day, Stop date: 10/07/16 9:00:00 CSTNotes: Infuse over 15 minutes Do not exceed 4gm/day of acetaminophen MEDICATION WASTE Product Size: 1000 mg Product Wasted: ___ mg Tramadol 100 mg, 2 tab, No Longer Route: PO, Drug Active 2015 [place] form: TAB, Q6Hnow, [place] Dosing Weight 76.545, kg, Start date: 09/07/16 13:00:00 STEPDOWN NURSE, Duration: 30 day, Stop date: 10/07/16 7:00:00 CSTNotes: Not to exceed 400mg/day. (Same As: Ultram) gabapentin 100 mg, 1 cap, No Longer Route: PO, Drug Active 2015 [place] form: CAP, Q8Hnow, [place] Dosing Weight 76.545, kg, Start date: 09/07/16 13:00:00 STEPDOWN NURSE, Duration: 30 day, Stop date: 10/07/16 5:00:00 CSTNotes: (Same as: Neurontin) Oxycodone 10 mg, 2 tab, No Longer Hydrochloride 5 Route: PO, Drug Active 2015 [place] MG Oral Tablet form: TAB, Q4H, [place] Dosing Weight 76.545, kg, PRN Pain Score 7-10, Start date: 09/07/16 12:26:00 STEPDOWN NURSE, Duration: 30 day, Stop date: 10/07/16 12:25:00 CSTNotes: (Same as: Roxicodone) Morphine 2 mg, 1 mL, Route: No Longer IVP, Drug form: Active 2015 [place] INJ, Q4H, Dosing [place] Weight 76.545, kg, PRN Pain Score 7-10, Start date: 09/07/16 12:26:00 STEPDOWN NURSE, Duration: 30 day, Stop date: 10/07/16 12:25:00 CSTNotes: (Same as:MORPhine Sulfate) Diphenhydramine 12.5 mg, 5 mL, No Longer Route: PO, Drug Active 2015 [place] form: LIQ, Q6H, [place] Dosing Weight 76.545, kg, PRN Itching, Start date: 09/07/16 12:26:00 STEPDOWN NURSE, Duration: 30 day, Stop date: 10/07/16 12:25:00 CSTNotes: (Same as: Benadryl) Nalbuphine 2 mg, 0.2 mL, No Longer Route: IVP, Drug Active 2015 [place] form: INJ, Q2H, [place] Dosing Weight 76.545, kg, PRN Itching, Start date: 09/07/16 12:26:00 STEPDOWN NURSE, Duration: 5 doses or times, Stop date: Limited # of timesNotes: (Same As: Nubain) Ketorolac 30 mg, 1 mL, No Longer Route: IV, Drug Active 2015 [place] form: INJ, Q6H, [place] Dosing Weight 76.545, kg, PRN Pain Score 4-6, Start date: 09/07/16 12:26:00 STEPDOWN NURSE, Duration: 4 day, Stop date: 09/11/16 12:25:00 CSTNotes: (Same as:Toradol) IV bolus must be given >15 seconds. Give IM administration slowly and deeply into the muscle. Not for use > 4 days MEDICATION WASTE Product Size: 30 mg Product Wasted: ___ mg Insulin, Aspart, 2 unit, Route: Inactive Human SUB-Q, Sliding 2016 [place] Scale, Dosing [place] Weight 76.545, kg, PRN Blood Glucose Results, Start date: 09/07/16 11:12:00 STEPDOWN NURSE, Duration: 30 day, Stop date: 10/07/16 11:11:00 STEPDOWN NURSE 72 HR Scopolamine 1 patch, Route: Inactive 0.0139 MG/HR TOP, Drug Form: 2016 [place] Transdermal Patch ERFILM, Dosing [place] Weight 80, kg, ONCE, Apply behind ear. Avoid use in elderly., Start date: 09/07/16 11:12:00 STEPDOWN NURSE, Stop date: 09/07/16 11:12:00 STEPDOWN NURSE Ondansetron 4 mg, Route: IVP, Inactive ONCE, Dosing 2016 [place] Weight 76.545, kg, [place] PRN Nausea & Vomiting, Start date: 09/07/16 11:12:00 STEPDOWN NURSE Naloxone 0.1 mg, Route: Inactive SUB-Q, Q6H, Dosing 2015 [place] Weight 76.545, kg, [place] PRN Itching, Start date: 09/07/16 11:12:00 STEPDOWN NURSE, Duration: 30 day, Stop date: 10/07/16 11:11:00 STEPDOWN NURSE Dexamethasone 4 mg, Route: IVP, Inactive ONCE, Dosing 2016 [place] Weight 76.545, kg, [place] PRN Nausea & Vomiting, Start date: 09/07/16 11:12:00 STEPDOWN NURSE Promethazine 6.25 mg, Route: Inactive IVPB, ONCE, Dosing 2015 [place] Weight 76.545, kg, [place] PRN Nausea & Vomiting, Start date: 09/07/16 11:12:00 STEPDOWN NURSE Albuterol 0.833 3 mL, Route: NEB, Inactive MG/ML / Dosing Weight 80, 2015 [place] Ipratropium kg, Q20Min, PRN [place] 0.167 Wheezing, call MG/ML Inhalant anesthesiologist Solution [DuoNeb] if wheezing unresolved after 2nd dose., Start date: 09/07/16 11:12:00 STEPDOWN NURSE, Duration: 4 doses or times, Stop date: Limited # of times Phenylephrine Route: IV, Q5Min, Inactive Dosing Weight 80, 2015 [place] kg, PRN [place] Hypotension, Start date: 09/07/16 11:12:00 STEPDOWN NURSE, Duration: 30 day, Stop date: 10/07/16 11:11:00 STEPDOWN NURSE Acetaminophen 10 1,000 mg, Route: Inactive MG/ML Injectable IV, Drug form: 2016 [place] Solution INJ, ONCE, Dosing [place] Weight 80, kg, PRN Pain Score 1-3, For > or=50 kg, Start date: 09/07/16 11:12:00 STEPDOWN NURSE celecoxib 200 mg, Route: PO, Inactive Drug form: CAP, 2016 [place] ONCE, Dosing [place] Weight 80, kg, Start date: 09/07/16 11:12:00 STEPDOWN NURSE, Stop date: 09/07/16 11:12:00 STEPDOWN NURSE Levalbuterol 0.63 mg, Route: Inactive NEB, Q20Min, 2015 [place] Dosing Weight [place] 76.545, kg, PRN Wheezing, Start date: 09/07/16 11:12:00 STEPDOWN NURSE, Duration: 4 doses or times, Stop date: Limited # of times Midazolam 1 mg, Route: IVP, Inactive Q5Min, Dosing 2016 [place] Weight 76.545, kg, [place] PRN Anxiety, Start date: 09/07/16 11:12:00 STEPDOWN NURSE, Duration: 2 doses or times, Stop date: Limited # of times Atropine 0.2 mg, Route: Inactive IVP, Q5Min, Dosing 2016 [place] Weight 76.545, kg, [place] PRN Other -See Comment, as needed; for symptomatic pulse rate Albuterol 0.83 2.49 mg, Route: Inactive MG/ML Inhalant NEB, Q20Min, 2015 [place] Solution Dosing Weight [place] 76.545, kg, PRN Wheezing, Priority: STAT, Start date: 09/07/16 11:12:00 STEPDOWN NURSE, Duration: 30 day, Stop date: 10/07/16 11:11:00 STEPDOWN NURSE Glycopyrrolate 0.2 mg, Route: Inactive IVP, Q5Min, Dosing 2016 [place] Weight 76.545, kg, [place] PRN Bradycardia, Start date: 09/07/16 11:12:00 STEPDOWN NURSE, Duration: 3 doses or times, Stop date: Limited # of times Diphenhydramine 12.5 mg, Route: Inactive IVP, Drug form: 2016 [place] INJ, Q6H, Dosing [place] Weight 80, kg, PRN Itching, Start date: 09/07/16 11:12:00 STEPDOWN NURSE, Duration: 1 day, Stop date: 09/08/16 11:11:00 STEPDOWN NURSE Oxycodone 5 mg, Route: PO, Inactive Drug form: TAB, 2016 [place] ONCE, Dosing [place] Weight 80, kg, PRN Pain Score 4-6, Start date: 09/07/16 11:12:00 STEPDOWN NURSE Morphine 2 mg, Route: IVP, Inactive Q5Min, Dosing 2016 [place] Weight 76.545, kg, [place] PRN Pain Score 4-6, Start date: 09/07/16 11:12:00 STEPDOWN NURSE, Duration: 5 doses or times, Stop date: Limited # of times Metoprolol 1 mg, Route: IVP, Inactive Q5Min, Dosing 2015 [place] Weight 80, kg, PRN [place] Other -See Comment, Start date: 09/07/16 11:12:00 STEPDOWN NURSE, Duration: 5 doses or times, Stop date: Limited # of times Labetalol 10 mg, Route: IVP, Inactive Q5Min, Dosing 2016 [place] Weight 80, kg, PRN [place] Elevated BP, Start date: 09/07/16 11:12:00 STEPDOWN NURSE, Duration: 5 doses or times, Stop date: Limited # of times Acetaminophen 1,000 mg, Route: Inactive IVPB, Drug form: 2015 [place] INJ, ONCE, Dosing [place] Weight 80, kg, PRN Pain Score 1-3, Start date: 09/07/16 11:12:00 STEPDOWN NURSE, Duration: 1 doses or times, Stop date: Limited # of times Flumazenil 0.2 mg, Route: Inactive IVP, PRN, Dosing 2016 [place] Weight 76.545, kg, [place] PRN Benzodiazepine Reversal, Initial dose, Start date: 09/07/16 11:12:00 STEPDOWN NURSE, Duration: 30 day, Stop date: 10/07/16 11:11:00 STEPDOWN NURSE Ephedrine 5 mg, Route: IVP, Inactive Q5Min, Dosing 2015 [place] Weight 76.545, kg, [place] PRN Low Blood Pressure, Start date: 09/07/16 11:12:00 STEPDOWN NURSE, Duration: 30 day, Stop date: 10/07/16 11:11:00 STEPDOWN NURSE Hydromorphone 0.5 mg, Route: Inactive IVP, Q5Min, Dosing 2015 [place] Weight 80, kg, PRN [place] Pain Score 7-10, Start date: 09/07/16 11:12:00 STEPDOWN NURSE, Duration: 4 doses or times, Stop date: Limited # of times Hydralazine 10 mg, Route: IVP, Inactive Q20Min, Dosing 2015 [place] Weight 80, kg, PRN [place] Elevated BP, Start date: 09/07/16 11:12:00 STEPDOWN NURSE, Duration: 2 doses or times, Stop date: Limited # of times Calcium Chloride 1,000 mL, Rate: Inactive 0.0014 MEQ/ML / 125 ml/hr, Infuse 2015 [place] Potassium over: 8 hr, Route: [place] Chloride 0.004 IV, Dosing Weight MEQ/ML / Sodium 76.545 kg, Total Chloride 0.103 Volume: 1,000, MEQ/ML / Sodium Start date: Lactate 0.028 09/07/16 11:12:00 MEQ/ML Injectable STEPDOWN NURSE, Duration: 30 Solution day, Stop date: 10/07/16 11:11:00 STEPDOWN NURSE Enoxaparin 40 mg, 0.4 mL, No Longer Route: SUB-Q, Drug Active 2015 [place] form: INJ, [place] [id number], Dosing Weight 76.545, kg, Start date: 09/07/16 11:00:00 STEPDOWN NURSE, Duration: 30 day, Stop date: 10/06/16 8:00:00 CSTNotes: (Same as: Lovenox) glycopyrrolate Route: IV, Drug Inactive (ANES) form: INJ, ONCE, 2015 [place] Stop date: 09/07/16 10:45:00 STEPDOWN NURSE neostigmine Route: IV, Drug Inactive (ANES) form: INJ, ONCE, 2015 [place] Stop date: 09/07/16 10:45:00 STEPDOWN NURSE Acetaminophen 325 1 tab, Route: PO, No Longer MG / Hydrocodone Drug Form: TAB, Active 2016 [place] Bitartrate 5 MG Dosing Weight [place] Oral Tablet 76.545, kg, Q4H, PRN Pain Score 1-3, Start date: 09/07/16 10:21:00 STEPDOWN NURSE, Duration: 30 day, Stop date: 10/07/16 10:20:00 CSTNotes: (Same as: [place] 325/5) Do not exceed 4gm/day of acetaminophen. Acetaminophen 325 1 tab, Route: PO, No Longer MG / Hydrocodone Drug Form: TAB, Active 2016 [place] Bitartrate 10 MG Dosing Weight [place] Oral Tablet 76.545, kg, Q4H, PRN Pain Score 4-6, Start date: 09/07/16 10:21:00 STEPDOWN NURSE, Duration: 30 day, Stop date: 10/07/16 10:20:00 CSTNotes: Do not exceed 4gm/day of acetaminophen. (Same as: [place] 325/10) Morphine 2 mg, 1 mL, Route: No Longer IVP, Drug form: Active 2016 [place] INJ, Q3H, Dosing [place] Weight 76.545, kg, PRN Other -See Comment, Start date: 09/07/16 10:21:00 STEPDOWN NURSE, Duration: 30 day, Stop date: 10/07/16 10:20:00 CSTNotes: (Same as:MORPhine Sulfate) Ondansetron 4 mg, 2 mL, Route: No Longer IVP, Drug form: Active 2016 [place] INJ, Q6H, Dosing [place] Weight 76.545, kg, PRN Nausea & Vomiting, Start date: 09/07/16 10:21:00 STEPDOWN NURSE, Duration: 30 day, Stop date: 10/07/16 10:20:00 CSTNotes: (Same as: Zofran) MEDICATION WASTE Product Size: 4 mg Product Wasted: ___ mg Diphenhydramine 25 mg, 1 cap, No Longer Route: PO, Drug Active 2015 [place] form: CAP, Land Bedtime, Dosing Weight 76.545, kg, PRN Insomnia, Start date: 09/07/16 10:21:00 STEPDOWN NURSE, Duration: 30 day, Stop date: 10/07/16 10:20:00 CSTNotes: (Same as: Benadryl) Lactated Ringers 1,000 mL, Rate: No Longer 1,000 mL 125 ml/hr, Infuse Active 2015 [place] over: 8 hr, Route: Land IV, Dosing Weight 76.545 kg, Total Volume: 1,000, Start date: 09/07/16 10:21:00 STEPDOWN NURSE, Duration: 30 day, Stop date: 10/07/16 10:20:00 STEPDOWN NURSE ondansetron Route: IV, Drug Inactive (ANES) form: INJ, ONCE, 2015 [place] Stop date: 09/07/16 9:40:00 STEPDOWN NURSE ePHEDrine (ANES) Route: IV, Drug Inactive 09/07/ form: INJ, ONCE, 2015 [place] Stop date: 09/07/16 9:35:00 STEPDOWN NURSE phenylephrine Route: IV, Drug Inactive (ANES) form: INJ, ONCE, 2015 [place] Stop date: 09/07/16 9:35:00 STEPDOWN NURSE acetaminophen Route: IV, Drug Inactive (ANES) form: INJ, ONCE, 2015 [place] Stop date: 09/07/16 9:30:00 STEPDOWN NURSE propofol (ANES) Route: IV, Drug Inactive form: INJ, ONCE, 2015 [place] Stop date: 09/07/16 9:20:00 STEPDOWN NURSE rocuronium (ANES) Route: IV, Drug Inactive form: INJ, ONCE, 2015 [place] Stop date: 09/07/16 9:20:00 STEPDOWN NURSE lidocaine (ANES) Route: IV, Drug Inactive form: INJ, ONCE, 2015 [place] Stop date: 09/07/16 9:20:00 STEPDOWN NURSE midazolam (ANES) Route: IV, Drug Inactive form: SOLN, ONCE, 2015 [place] Stop date: 09/07/16 9:20:00 STEPDOWN NURSE fentaNYL (ANES) Route: IV, Drug Inactive 09/07/ form: INJ, ONCE, 2015 [place] Stop date: 09/07/16 9:20:00 STEPDOWN NURSE ceFAZolin (ANES) Route: IV, Drug Inactive form: INJ, ONCE, 2015 [place] Stop date: 09/07/16 9:20:00 STEPDOWN NURSE LR 1000 mL INJ Route: IV, Total Inactive (ANES) Volume: 1,000, 2016 [place] Start date: [facility] 09/07/16 8:14:00 STEPDOWN NURSE, Stop date: 09/07/16 9:14:00 STEPDOWN NURSE ceFAZolin 2 gm, 100 mL, Inactive Route: IVPB, Drug 2015 [place] form: INJ, ONCALL, [place] Start date: 09/07/16 8:00:00 STEPDOWN NURSE, Duration: 1 doses or times, Stop date: 09/07/16 22:59:00 CSTNotes: Same as: Ancef 200 ACTUAT 2 puff, Route: Inactive Albuterol 0.09 INHALER, Drug 2015 [place] MG/ACTUAT Metered Form: AERO/A, [place] Dose Inhaler Dosing Weight 80, kg, Q5Min, PRN Wheezing, Start date: 09/07/16 6:17:00 STEPDOWN NURSE, Duration: 4 doses or times, Stop date: Limited # of timesNotes: Same as: Ventolin HFA WASTE: Aerosol - Return to Pharmacy Celebrex 400 mg, 2 cap, Inactive Route: PO, Drug 2015 [place] form: CAP, ONCE, [place] Dosing Weight 80, kg, pre op workers compensation administrator, Priority: NOW, Start date: 09/07/16 6:17:00 STEPDOWN NURSE, Stop date: 09/07/16 6:17:00 CSTNotes: NSAID. Please check indication. Not for seizure. (Same As: CeleBREX) Acetaminophen 1,000 mg, 2 tab, Inactive Route: PO, Drug 2015 [place] form: TAB, ONCE, [place] Dosing Weight 80, kg, pre op workers compensation administrator, Priority: NOW, Start date: 09/07/16 6:17:00 STEPDOWN NURSE, Stop date: 09/07/16 6:17:00 CSTNotes: Max acetaminophen 4000 mg/day (4 gm/day). (Same as: Tylenol Extra Strength) Insulin, Aspart, 1 unit, 0.01 mL, Inactive Human Route: SUB-Q, Drug 2015 [place] form: SOLN, [place] Sliding Scale, Dosing Weight 80, kg, PRN Blood Glucose Results, Start date: 12/22/16 6:17:00 STEPDOWN NURSE, Duration: 30 day, Stop date: 10/07/16 6:16:00 CSTNotes: Roll in palms of hands gently; Do not shake vigorously. (Same as: NovoLOG) "single patient use only" WASTE: F/P - Black; E - Municipal Trash Bin Stable for 28 days at room temperature. Expires in days from Date Calcium Chloride 1,000 mL, Rate: 25 Inactive [place] 0.0014 MEQ/ML / ml/hr, Infuse 2015 [place] Potassium over: 40 hr, [place] Chloride 0.004 Route: IV, Dosing MEQ/ML / Sodium Weight 80 kg, Chloride 0.103 Total Volume: MEQ/ML / Sodium 1,000, Start date: Lactate 0.028 09/07/16 6:17:00 MEQ/ML Injectable STEPDOWN NURSE, Duration: 30 Solution day, Stop date: 10/07/16 6:16:00 STEPDOWN NURSE Fish Oil PO, Daily, 0 Active 08/31/ [facility] Refill(s) 2015 [place] Linagliptin 2.5 1 tab, PO, Daily, Active 08/31/ MH MG / Metformin 0 Refill(s) 2015 [place] hydrochloride [place] 1000 MG Oral Tablet [Jentadueto 2.01/1000] sotalol 80 mg 80 mg=1 tab, PO, Active 08/31/ MH oral tablet BID, 0 Refill(s) 2015 [place] apixaban 2.5 MG 2.5 mg=1 tab, PO, Active 08/31/ MH Oral Tablet BID, 0 Refill(s) 2015 [place] [Eliquis] [place] Rosuvastatin 20 mg=1 tab, PO, Active 08/31/ MH calcium 20 MG Bedtime, 0 2016 [place] Oral Tablet Refill(s) [place] [Crestor] Tricor PO, Daily, 0 Active 08/31/ MH Refill(s) 2015 [place] Allergies, Adverse Reactions, Alerts Substance Category Reaction Severity Reaction Status Date Comments Source type Reported Demerol HCl Assertion hallucination Drug Active MH allergy [place] lisinopril Assertion muscle Drug Active MH weakness allergy [place] Xarelto Assertion internal Drug Active MH bleeding allergy [place] Immunizations Immunization Date Given Site Status Last Updated Comments Source Results Order Name Results Value Reference Date Interpretation Comments Source Range CHEM PANEL eGFR 56 09/08 Result Comment: The eGFR is calculated using the CKD-EPI formula. In most young, healthy individuals the eGFR will be >90 mL/ min/1.73m2. The eGFR declines with age. An eGFR of 60-89 may be normal in [facility] mL/min/1.73 /2016 some populations, particularly the elderly, for whom the CKD-EPI formula has not been extensively validated. Use of the eGFR is not recommended in the following populations: [place] m2 [place] Individuals with unstable creatinine concentrations, including patients and those with serious co-morbid conditions. Patients with extremes in muscle mass or diet. The data above are obtained from the National Kidney Disease Education Program (NKDEP) which additionally recommends that when the eGFR is used in patients with extremes of body mass index for purposes of drug dosing, the eGFR should be multiplied by the estimated BMI. CHEM PANEL Creatinine 1.32 mg/dL 0.50 - 09/08 [facility] Lvl 1.40 [place] CHEM PANEL Sodium Lvl 138 meq/L 135 - 145 09/08 [place] CHEM PANEL Glucose Lvl 133 mg/dL 70 - 99 09/08 [place] CHEM PANEL BUN 21 mg/dL 7 - 22 09/08 [place] CHEM PANEL Alk Phos 31 unit/L 39 - 136 09/08 [facility] CHEM PANEL Bili Total 0.5 mg/dL 0.2 - 1.3 09/08 [place] CHEM PANEL Albumin Lvl 3.3 g/dL 3.5 - 5.0 09/08 [facility] [place] CHEM PANEL ALT 16 unit/L 0 - 65 09/08 [place] CHEM PANEL AST 21 unit/L 0 - 37 09/08 [facility] CHEM PANEL Calcium Lvl 7.9 mg/dL 8.5 - 10.5 09/08 [facility] [place] CHEM PANEL Total Protein 5.9 g/dL 6.4 - 8.4 09/08 [place] CHEM PANEL Potassium Lvl 4.3 meq/L 3.5 - 5.1 09/08 [place] CHEM PANEL CO2 25 meq/L 24 - 32 09/08 [place] CHEM PANEL Chloride Lvl 103 meq/L 95 - 109 09/08 [place] CHEM PANEL AGAP 14.3 meq/L 10.0 - 09/08 [facility] 20.0 /2016 [place] CHEM PANEL Globulin 2.6 g/dL 2.7 - 4.2 09/08 [facility] [place] CHEM PANEL A/G Ratio 1.3 0.7 - 1.6 09/08 [place] CHEM PANEL B/C Ratio 16 6 - 25 09/08 [facility] HEMATOLOGY MCHC 32.5 g/dL 32.0 - 09/08 [facility] 36.0 /2015 [place] HEMATOLOGY Platelet 212 K/CMM 133 - 450 09/08 [facility] HEMATOLOGY RDW 13.6 % 11.5 - 09/08 [facility] 14. [place] HEMATOLOGY MPV 8.7 fL 7.4 - 10.4 09/08 [facility] [place] HEMATOLOGY Hgb 11.4 g/dL 14.0 - 09/08 [facility] 18.0 [place] HEMATOLOGY RBC 3.87 M/CMM 4.70 - 09/08 MH 6.10 [facility] [place] HEMATOLOGY MCV 90.1 fL 80.0 - 09/08 MH 94.0 [place] HEMATOLOGY Hct 34.9 % 42.0 - 09/08 MH 54.0 [place] HEMATOLOGY MCH 29.3 pg 27.0 - 09/08 [facility] 31.0 [facility] [place] HEMATOLOGY WBC 13.4 K/CMM 3.7 - 10.4 09/08 [place] HEMATOLOGY Plt Morph Normal 09/08 [place] (09/08/16 5:52 AM) [place] HEMATOLOGY RBC Morph Normal 09/08 [place] (09/08/16 5:52 AM) [place] HEMATOLOGY Eosinophils 0.3 % 0.0 - 4.0 09/08 [facility] [place] HEMATOLOGY Monocytes 5.7 % 2.0 - 12.0 09/08 [facility] [place] HEMATOLOGY Basophils 0.3 % 0.0 - 1.0 09/08 [facility] [place] HEMATOLOGY Lymphocytes 14.0 % 20.0 - 09/08 [facility] 40.0 [place] HEMATOLOGY Segs 79.7 % 45.0 - 09/08 MH 75.0 [place] HEMATOLOGY Eosinophils # 0.0 K/CMM 0.0 - 0.5 09/08 [facility] [place] HEMATOLOGY Monocytes # 0.8 K/CMM 0.0 - 0.8 09/08 [place] HEMATOLOGY Basophils # 0.0 K/CMM 0.0 - 0.2 09/08 /2015 [place] HEMATOLOGY Lymphocytes # 1.9 K/CMM 1.0 - 5.5 09/08 [place] HEMATOLOGY Segs-Bands # 10.7 K/CMM 1.5 - 8.1 09/08 [facility] [place] BLOOD BANK RBC product Product available 1 09/07 Result Comment: 2015 10:31 [id number] RESULTS /2015 RBC ready at 09/07/2016 10:25, notified to nurse Kassi Santiago (RN) by Odette (09/07/16 8:24 AM) [facility] Shoulder Shoulder Exam: Right shoulder x-ray, 2 views 09/07 - series DX series - [facility] Reason for Exam: Arthritis Read by: Silvio Ramirez MD Dictated Date/time: 09/07/16 11:26 Electronically Signed by: Silvio Ramirez MD 09/07/16 11:28 FINAL REPORT Comparison Exam: None Discussion: Patient is status post recent right shoulder arthroplasty. The metallic hardware is unremarkable. There are new acute fracture line seen within the bones. AC joint is unremarkable. No suspicious osteobl astic or osteolytic lesions seen to suggest pathologic involvement. Impression: 1. Unremarkable x-ray of the right shoulder status post arthroplasty. URINE AND UA Spec Grav 1.016 <=1.030 08/31 STOOL [place] URINE AND UA <=1.0 mg/dL 0.1 - 1.0 08/31 STOOL Urobilinogen /2015 [place] URINE AND UA Blood Negative Negative 08/31 STOOL [place] (08/31/16 12:19 PM) [place] URINE AND UA Nitrite Negative Negative 08/31 STOOL [place] (08/31/16 12:19 PM) [place] URINE AND UA Bili Negative Negative 08/31 STOOL [place] *NA* [place] (08/31/16 12:19 PM) URINE AND UA Ketones Negative Negative 08/31 STOOL mg/dL mg/dL [place] URINE AND UA Sq Epi None Seen 08/31 STOOL [place] URINE AND UA WBC null 0 - 5 08/31 STOOL [place] URINE AND UA RBC null 0 - 2 08/31 STOOL [place] URINE AND UA Leuk Est Negative Negative 08/31 [facility] [place] (08/31/16 12:19 PM) [place] URINE AND UA Glucose Negative Negative 08/31 [facility] mg/dL mg/dL [place] URINE AND UA Mucus Few /LPF None Seen 08/31 [facility] /LPF [place] URINE AND UA Hyal Cast 1 /LPF 0 - 2 08/31 STOOL [place] URINE AND UA Color Light Yellow Yellow 08/31 [facility] [place] *NA* [place] (08/31/16 12:19 PM) URINE AND UA Turbidity Clear Clear 08/31 [facility]OL [place] (08/31/16 12:19 PM) [place] URINE AND UA Protein Negative Negative 08/31 [facility] mg/dL mg/dL [place] URINE AND UA pH 7.0 5.0 - 8.0 08/31 STOOL [place] BLOOD BANK Antibody Scrn Negative 08/31 RESULTS [place] (08/31/16 11:43 AM) [facility] [place] [facility] ABO/Rh O NEG 08/31 RESULTS [facility] CHEM PANEL eGFR 67 08/31 Result Comment: The eGFR is calculated using the CKD-EPI formula. In most young, healthy individuals the eGFR will be >90 mL/ min/1.73m2. The eGFR declines with age. An eGFR of 60-89 may be normal in mL/min/1.73 /2015 some populations, particularly the elderly, for whom the CKD-EPI formula has not been extensively validated. Use of the eGFR is not recommended in the following populations: [place] Individuals with unstable creatinine concentrations, including patients and those with serious co-morbid conditions. Patients with extremes in muscle mass or diet. The data above are obtained from the National Kidney Disease Education Program (NKDEP) which additionally recommends that when the eGFR is used in patients with extremes of body mass index for purposes of drug dosing, the eGFR should be multiplied by the estimated BMI. CHEM PANEL Potassium Lvl 4.3 meq/L 3.5 - 5.1 08/31 [facility] CHEM PANEL Calcium Lvl 8.6 mg/dL 8.5 - 10.5 08/31 [facility] CHEM PANEL Chloride Lvl 104 meq/L 95 - 109 08/31 [facility] CHEM PANEL CO2 27 meq/L 24 - 32 08/31 [facility] CHEM PANEL Total Protein 6.7 g/dL 6.4 - 8.4 08/31 [facility] CHEM PANEL Creatinine 1.13 mg/dL 0.50 - 08/31 MH Lvl 1.40 /2015 [facility] CHEM PANEL Sodium Lvl 139 meq/L 135 - 145 08/31 [facility] CHEM PANEL Glucose Lvl 203 mg/dL 70 - 99 08/31 [facility] CHEM PANEL BUN 21 mg/dL 7 - 22 08/31 [facility] CHEM PANEL Alk Phos 43 unit/L 39 - 136 08/31 [facility] CHEM PANEL Bili Total 0.5 mg/dL 0.2 - 1.3 08/31 [facility] CHEM PANEL Albumin Lvl 3.7 g/dL 3.5 - 5.0 08/31 [facility] CHEM PANEL ALT 23 unit/L 0 - 65 08/31 [facility] CHEM PANEL AST 19 unit/L 0 - 37 08/31 [facility] CHEM PANEL A/G Ratio 1.2 0.7 - 1.6 08/31 [facility] CHEM PANEL AGAP 12.3 meq/L 10.0 - 08/31 MH 20.0 [facility] CHEM PANEL B/C Ratio 19 6 - 25 08/31 [facility] CHEM PANEL Globulin 3.0 g/dL 2.7 - 4.2 08/31 [facility] HEMATOLOGY INR 1.09 0.85 - 08/31 MH 1.17 [facility] HEMATOLOGY PTT 31.1 s 22.9 - 08/31 MH 35.8 /2015 [facility] HEMATOLOGY PT 14.3 s 12.0 - 08/31 MH 14.7 [facility] HEMATOLOGY MPV 8.4 fL 7.4 - 10.4 08/31 [facility] HEMATOLOGY MCHC 33.5 g/dL 32.0 - 08/31 MH 36.0 /2015 [facility] HEMATOLOGY MCV 88.9 fL 80.0 - 08/31 MH 94.0 /2015 [facility] HEMATOLOGY Platelet 244 K/CMM 133 - 450 08/31 [facility] HEMATOLOGY RDW 13.9 % 11.5 - 08/31 MH 14.5 [facility] HEMATOLOGY RBC 4.41 M/CMM 4.70 - 08/31 MH 6.10 [facility] HEMATOLOGY MCH 29.8 pg 27.0 - 08/31 MH 31.0 /2015 [facility] HEMATOLOGY Hgb 13.1 g/dL 14.0 - 08/31 MH 18.0 /2015 [facility] HEMATOLOGY Hct 39.2 % 42.0 - 08/31 MH 54.0 /2015 [facility] HEMATOLOGY WBC 6.7 K/CMM 3.7 - 10.4 08/31 [facility] HEMATOLOG[facility] Monocytes # 0.4 K/CMM 0.0 - 0.8 08/31 [facility] HEMATOLOGY Eosinophils # 0.3 K/CMM 0.0 - 0.5 08/31 [facility] HEMATOLOGY Basophils # 0.1 K/CMM 0.0 - 0.2 08/31 [facility] HEMATOLOGY Lymphocytes 30.7 % 20.0 - 08/31 MH 40.0 [facility] HEMATOLOGY Basophils 1.2 % 0.0 - 1.0 08/31 [facility] HEMATOLOGY Segs-Bands # 3.9 K/CMM 1.5 - 8.1 08/31 [facility] HEMATOLOGY Lymphocytes # 2.1 K/CMM 1.0 - 5.5 08/31 [facility] HEMATOLOGY Eosinophils 4.2 % 0.0 - 4.0 08/31 [facility] HEMATOLOGY Segs 58.3 % 45.0 - 08/31 MH 75.0 /2015 [facility] HEMATOLOGY Monocytes 5.6 % 2.0 - 12.0 08/31 [facility] Vital Signs Vital Sign Value Date Comments Source Systolic (mm Hg) 124 09/08/2016 [facility] Diastolic (mm Hg) 77 09/08/2016 [facility] Heart Rate 82 09/08/2016 [facility] Respitory Rate 18 09/08/2016 [facility] Temperature Oral (F) 98.1 F 09/08/2016 [facility] Temperature Oral (F) 97.4 F 09/08/2016 [facility] Heart Rate 54 09/08/2016 [facility] Respitory Rate 18 09/08/2016 [facility] Systolic (mm Hg) 150 09/08/2016 [facility] Diastolic (mm Hg) 85 09/08/2016 [facility] Systolic (mm Hg) 131 09/08/2016 [facility] Diastolic (mm Hg) 74 09/08/2016 [facility] Respitory Rate 18 09/08/2016 [facility] Heart Rate 80 09/08/2016 [facility] Temperature Oral (F) 98.1 F 09/08/2016 [facility] Weight 74.091 09/07/2016 [facility] Height 162.56 cm 09/07/2016 [facility] BMI Calculated 28.04 09/07/2016 [facility] Weight 76.545 09/07/2016 [facility] BMI Calculated 28.97 09/07/2016 [facility] Height 162.56 cm 08/31/2016 [facility] Encounters Location Location Encounter Encounter Reason Attending ADM DC Status Source Details Type Number For Provider Date Date Visit [facility] [id number] [facility] 09/07 09/08 [facility] Procedures Procedure Code Date Perfomer Comments Source Arthroplasty of [id number] 09/07/2016 [place] Cardiac [id number] 09/17/2012 [place] [facility] [place] Pacemaker care [id number] 09/17/2012 [facility] CABG x 3 - Coronary [id number] 09/17/2008 [place] artery bypass [facility] [place] x 3
--- OUTSIDE RECORDS SUMMARY | 2018-03-26 10:31 | XMS REPORT | Summary of Care ---
:1950 Author Organization [facility] Address [address], [place] [address]- Encounter HQ Lashay_mike([facility]) [id number] Date(s): 09/07/16 - 09/08/16 [facility] [address] [place] [address]- Discharge Disposition: Home or Self Care Attending Physician: Ev Baker MD Admitting Physician: Julio Sarmiento MD Referring Physician: Julio Sarmiento MD Vital Signs Most recent to oldest 1 2 3 [Reference Range]: Height 162.56 cm 162.56 cm (09/07/16 2:31 PM) (08/31/16 11:12 AM) Temperature Oral 98.1 DegF 97.4 DegF 98.1 DegF [96.4-99.1 DegF] (09/08/16 11:44 AM) (09/08/16 7:32 AM) (09/07/16 8:18 PM) Blood Pressure 124/77 mmHg 150/85 mmHg 131/74 mmHg [90-140/60-90 mmHg] (09/08/16 11:44 AM) *HI* (09/08/16 3:12 AM) (09/08/16 7:32 AM) Respiratory Rate [14-20 18 BRMIN 18 BRMIN 18 BRMIN BRMIN] (09/08/16 11:44 AM) (09/08/16 7:32 AM) (09/08/16 3:12 AM) Peripheral Pulse Rate 82 bpm 54 bpm 80 bpm [60-100 bpm] (09/08/16 11:44 AM) *LOW* (09/08/16 3:12 AM) (09/08/16 7:32 AM) Weight 74.091 kg 76.545 kg (09/07/16 2:31 PM) (09/07/16 6:20 AM) Body Mass Index 28.04 m2 28.97 m2 (09/07/16 2:31 PM) (09/07/16 6:20 AM) Problem List Condition Effective Dates Status Health Status Informant CAD (coronary artery Active disease)(Confirmed) CHF (congestive heart Active failure)(Confirmed) Diabetes(Confirmed) Active Hyperlipidemia(Confirmed) Active Osteoarthritis(Confirmed) Active Allergies, Adverse Reactions, Alerts Substance Reaction Severity Status Demerol HCl hallucination Active lisinopril muscle weakness Active Xarelto internal bleeding Active Medications acetaminophen 1,000 mg, 2 tab, Route: PO, Drug form: TAB, ONCE, Dosing Weight 80, kg, pre op transportation design engineer, Priority: NOW, Start date: 09/07/16 6:17:00 CUFF TURNER MACHINE OPERATOR, Stop date: 09/07/16 6: 17:00 CUFF TURNER MACHINE OPERATOR Notes: Max acetaminophen 4000 mg/day (4 gm/day). (Same as: Tylenol Extra Strength) Start Date: 09/07/16 Stop Date: 09/07/16 Status: Completedacetaminophen 1,000 mg, 100 mL, Route: IVPB, Drug form: INJ, Q6H, Dosing Weight 76.545, kg, Start date: 09/07/16 15:00:00 CUFF TURNER MACHINE OPERATOR, Duration: 30 day, Stop date: 10/07/16 9:00: 00 CUFF TURNER MACHINE OPERATOR Notes: Infuse over 15 minutesDo not exceed 4gm/day of acetaminophen MEDICATION WASTE ProductSize: 1000 mgProduct Wasted: ___ mg Start Date: 09/07/16 Stop Date: 09/08/16 Status: Discontinuedacetaminophen (ANES) Route: IV, Drug form: INJ, ONCE, Stop date: 09/07/16 9:30:00 CUFF TURNER MACHINE OPERATOR Start Date: 09/07/16 Stop Date: 09/07/16 Status: Completedacetaminophen-10 mg/mL INTRAVENOUS solution 1,000 mg, Route: IV, Drug form: INJ, ONCE, Dosing Weight 80, kg, PRN Pain Score 1-3, For > or=50 kg, Start date: 09/07/16 11:12:00 CUFF TURNER MACHINE OPERATOR Start Date: 09/07/16 Stop Date: 09/07/16 Status: Discontinuedacetaminophen-hydrocodone 325 mg-10 mg oral tablet 1 tab, Route: PO, Drug Form: TAB, Dosing Weight 76.545, kg, Q4H, PRN Pain Score 4-6, Start date: 09/07/16 10:21:00 CUFF TURNER MACHINE OPERATOR, Duration: 30 day, Stop date: 10/07/16 10 :20:00 CUFF TURNER MACHINE OPERATOR Notes: Do not exceed 4gm/day of acetaminophen. (Same as: [place] 325/10) Start Date: 09/07/16 Stop Date: 09/08/16 Status: Discontinuedacetaminophen-hydrocodone 325 mg-5 mg oral tablet 1 tab, Route: PO, Drug Form: TAB, Dosing Weight 76.545, kg, Q4H, PRN Pain Score 1-3, Start date: 09/07/16 10:21:00 CUFF TURNER MACHINE OPERATOR, Duration: 30 day, Stop date: 10/07/16 10 :20:00 CUFF TURNER MACHINE OPERATOR Notes: (Same as: [place] 325/5) Do not exceed 4gm/day of acetaminophen. Start Date: 09/07/16 Stop Date: 09/08/16 Status: Discontinuedalbuterol 90 mcg/inh inhalation aerosol 2 puff, Route: INHALER, Drug Form: AERO/A, Dosing Weight 80, kg, Q5Min, PRN Wheezing, Start date: 09/07/16 6:17:00 CUFF TURNER MACHINE OPERATOR, Duration: 4 doses or times, Stop date: Limited # of times Notes: Same as: Ventolin HFAWASTE: Aerosol - Return to Pharmacy Start Date: 09/07/16 Stop Date: 09/07/16 Status: DiscontinuedANES acetaminophen 1,000 mg, Route: IVPB, Drug form: INJ, ONCE, Dosing Weight 80, kg, PRN Pain Score 1-3, Start date: 09/07/16 11:12:00 CUFF TURNER MACHINE OPERATOR, Duration: 1 doses or times, Stop date: Limited # of times Start Date: 09/07/16 Stop Date: 09/07/16 Status: DiscontinuedANES albuterol 0.083% inhalation solution 2.49 mg, Route: NEB, Q20Min, Dosing Weight 76.545, kg, PRN Wheezing, Priority: STAT, Start date: 09/07/16 11:12:00 CUFF TURNER MACHINE OPERATOR, Duration: 30 day, Stop date: 10/07/16 11:11:00 CUFF TURNER MACHINE OPERATOR Start Date: 09/07/16 Stop Date: 09/07/16 Status: DiscontinuedANES atropine 0.2 mg, Route: IVP, Q5Min, Dosing Weight 76.545, kg, PRN Other -See Comment, as needed; for symptomatic pulse rate < 80% of mean 50 BPM, Start date: 11:12:00 CUFF TURNER MACHINE OPERATOR, Duration: 30 day, Stop date: 10/07/16 11:11:00 CUFF TURNER MACHINE OPERATOR Start Date: 09/07/16 Stop Date: 09/07/16 Status: DiscontinuedANES dexamethasone 4 mg, Route: IVP, ONCE, Dosing Weight 76.545, kg, PRN Nausea & Vomiting, Start date: 09/07/16 11:12:00 CUFF TURNER MACHINE OPERATOR Start Date: 09/07/16 Stop Date: 09/07/16 Status: DiscontinuedANES diphenhydrAMINE 12.5 mg, Route: IVP, Drug form: INJ, Q6H, Dosing Weight 80, kg, PRN Itching, Start date: 09/07/16 11:12:00 CUFF TURNER MACHINE OPERATOR, Duration: 1 day, Stop date: 09/08/16 11:11: 00 CUFF TURNER MACHINE OPERATOR Start Date: 09/07/16 Stop Date: 09/07/16 Status: DiscontinuedANES ePHEDrine 5 mg, Route: IVP, Q5Min, Dosing Weight 76.545, kg, PRN Low Blood Pressure, Start date: 09/07/16 11:12:00 CUFF TURNER MACHINE OPERATOR, Duration: 30 day, Stop date: 10/07/16 11:11: 00 CUFF TURNER MACHINE OPERATOR Start Date: 09/07/16 Stop Date: 09/07/16 Status: DiscontinuedANES flumazenil 0.2 mg, Route: IVP, PRN, Dosing Weight 76.545, kg, PRN Benzodiazepine Reversal, Initial dose, Start date: 09/07/16 11:12:00 CUFF TURNER MACHINE OPERATOR, Duration: 30 day, Stop date: 11:11:00 CUFF TURNER MACHINE OPERATOR Start Date: 09/07/16 Stop Date: 09/07/16 Status: DiscontinuedANES glycopyrrolate 0.2 mg, Route: IVP, Q5Min, Dosing Weight 76.545, kg, PRN Bradycardia, Start date : 09/07/16 11:12:00 CUFF TURNER MACHINE OPERATOR, Duration: 3 doses or times, Stop date: Limited # of times Start Date: 09/07/16 Stop Date: 09/07/16 Status: DiscontinuedANES hydrALAZINE 10 mg, Route: IVP, Q20Min, Dosing Weight 80, kg, PRN Elevated BP, Start date: 11:12:00 CUFF TURNER MACHINE OPERATOR,Duration: 2 doses or times, Stop date: Limited # of times Start Date: 09/07/16 Stop Date: 09/07/16 Status: DiscontinuedANES HYDROmorphone 0.5 mg, Route: IVP, Q5Min, Dosing Weight 80, kg, PRN Pain Score 7-10, Start date : 09/07/16 11:12:00 CUFF TURNER MACHINE OPERATOR, Duration: 4 doses or times, Stop date: Limited # of times Start Date: 09/07/16 Stop Date: 09/07/16 Status: DiscontinuedANES labetalol 10 mg, Route: IVP, Q5Min, Dosing Weight 80, kg, PRN Elevated BP, Start date: 11:12:00 CUFF TURNER MACHINE OPERATOR, Duration: 5 doses or times, Stop date: Limited # of times Start Date: 09/07/16 Stop Date: 09/07/16 Status: DiscontinuedANES levalbuterol 0.63 mg, Route: NEB, Q20Min, Dosing Weight 76.545, kg, PRN Wheezing, Start date : 09/07/16 11:12:00 CUFF TURNER MACHINE OPERATOR, Duration: 4 doses or times, Stop date: Limited # of times Start Date: 09/07/16 Stop Date: 09/07/16 Status: DiscontinuedANES metoprolol 1 mg, Route: IVP, Q5Min, Dosing Weight 80, kg, PRN Other -See Comment, Start date: 09/07/16 11:12:00CST, Duration: 5 doses or times, Stop date: Limited # of times Start Date: 09/07/16 Stop Date: 09/07/16 Status: DiscontinuedANES midazolam 1 mg, Route: IVP, Q5Min, Dosing Weight 76.545, kg, PRN Anxiety, Start date: 11:12:00 CUFF TURNER MACHINE OPERATOR, Duration: 2 doses or times, Stop date: Limited # of times Start Date: 09/07/16 Stop Date: 09/07/16 Status: DiscontinuedANES morphine Sulfate 2 mg, Route: IVP, Q5Min, Dosing Weight 76.545, kg, PRN Pain Score 4-6, Start date: 09/07/16 11:12:00CST, Duration: 5 doses or times, Stop date: Limited # of times Start Date: 09/07/16 Stop Date: 09/07/16 Status: DiscontinuedANES naloxone 0.1 mg, Route: SUB-Q, Q6H, Dosing Weight 76.545, kg, PRN Itching, Start date: 11:12:00 CUFF TURNER MACHINE OPERATOR,Duration: 30 day, Stop date: 10/07/16 11:11:00 CUFF TURNER MACHINE OPERATOR Start Date: 09/07/16 Stop Date: 09/07/16 Status: DiscontinuedANES naloxone 0.4 mg, Route: IVP, Q2MIN, Dosing Weight 76.545, kg, PRN Narcotic Reversal, Start date: 09/07/16 11:12:00 CUFF TURNER MACHINE OPERATOR, Duration: 8 doses or times, Stop date: Limited # of times Start Date: 09/07/16 Stop Date: 09/07/16 Status: DiscontinuedANES ondansetron 4 mg, Route: IVP, ONCE, Dosing Weight 76.545, kg, PRN Nausea & Vomiting, Start date: 09/07/16 11:12:00 CUFF TURNER MACHINE OPERATOR Start Date: 09/07/16 Stop Date: 09/07/16 Status: DiscontinuedANES oxyCODONE 5 mg, Route: PO, Drug form: TAB, ONCE, Dosing Weight 80, kg, PRN Pain Score 4-6 , Start date: 09/07/16 11:12:00 CUFF TURNER MACHINE OPERATOR Start Date: 09/07/16 Stop Date: 09/07/16 Status: DiscontinuedANES oxyCODONE 10 mg, Route: PO, Drug form: TAB, ONCE, Dosing Weight 80, kg, PRN Pain Score 7- 10, Start date: 09/07/16 11:12:00 CUFF TURNER MACHINE OPERATOR Start Date: 09/07/16 Stop Date: 09/07/16 Status: DiscontinuedANES promethazine 6.25 mg, Route: IVPB, ONCE, Dosing Weight 76.545, kg, PRN Nausea & Vomiting , Start date: 09/07/16 11:12:00 CUFF TURNER MACHINE OPERATOR Start Date: 09/07/16 Stop Date: 09/07/16 Status: DiscontinuedANES scopolamine 1.5 mg transdermal film 1 patch, Route: TOP, Drug Form: ERFILM, Dosing Weight 80, kg, ONCE, Apply behind ear. Avoid use in elderly., Start date: 09/07/16 11:12:00 CUFF TURNER MACHINE OPERATOR, Stop date : 09/07/16 11:12:00 CUFF TURNER MACHINE OPERATOR Start Date: 09/07/16 Stop Date: 09/07/16 Status: DiscontinuedceFAZolin 2 gm, 100 mL, Route: IVPB, Drug form: INJ, ONCALL, Start date: 09/07/16 8:00:00 CUFF TURNER MACHINE OPERATOR, Duration: 1 doses or times, Stop date: 09/07/16 22:59:00 CUFF TURNER MACHINE OPERATOR Notes: Same as: Ancef Start Date: 09/07/16 Stop Date: 09/07/16 Status: CompletedceFAZolin (ANES) Route: IV, Drug form: INJ, ONCE, Stop date: 09/07/16 9:20:00 CUFF TURNER MACHINE OPERATOR Start Date: 09/07/16 Stop Date: 09/07/16 Status: CompletedceFAZolin (SCIP) + sodium chloride 0.9% INJ 100 mL 1 gm, Route: IVPB, Q8H, Dosing Weight 76.545, kg, Start date: 09/07/16 16:00:00 CUFF TURNER MACHINE OPERATOR, Duration: 1 doses or times, Stop date: 09/07/16 16:00:00 CUFF TURNER MACHINE OPERATOR Notes: (Same As: Vanessa Tierney) MEDICATION WASTE Product Size: 1000 mgProduct Wasted: ___ mg Start Date: 09/07/16 Stop Date: 09/07/16 Status: CompletedCeleBREX 400 mg, 2 cap, Route: PO, Drug form: CAP, ONCE, Dosing Weight 80, kg, pre op transportation design engineer, Priority: NOW,Start date: 09/07/16 6:17:00 CUFF TURNER MACHINE OPERATOR, Stop date: 09/07/16 6:17: 00 CUFF TURNER MACHINE OPERATOR Notes: NSAID. Please check indication. Not for seizure. (Same As: CeleBREX) Start Date: 09/07/16 Stop Date: 09/07/16 Status: Completedcelecoxib 200 mg, Route: PO, Drug form: CAP, ONCE, Dosing Weight 80, kg, Start date: 09/07 11:12:00 CUFF TURNER MACHINE OPERATOR, Stop date: 09/07/16 11:12:00 CUFF TURNER MACHINE OPERATOR Start Date: 09/07/16 Stop Date: 09/07/16 Status: Discontinuedcelecoxib 200 mg, 1 cap, Route: PO, Drug form: CAP, Q12H, Dosing Weight 76.545, kg, Start date: 09/07/16 19:00:00 CUFF TURNER MACHINE OPERATOR, Duration: 30 day, Stop date: 10/07/16 7:00:00 CUFF TURNER MACHINE OPERATOR Notes: NSAID. Please check indication. Not for seizure. (Same As: CeleBREX) Start Date: 09/07/16 Stop Date: 09/08/16 Status: DiscontinuedCrestor 20 mg oral tablet 20 mg=1 tab, PO, Bedtime, 0 Refill(s) Start Date: 08/31/16 Status: OrderedDextrose 50% Syringe 25 gm, 50 mL, Route: IVP, Drug Form: INJ, Dosing Weight 74.091, kg, PRN, PRN Blood Glucose Results, Start date: 09/07/16 17:24:00 CUFF TURNER MACHINE OPERATOR, Duration: 30 day, Stop date: 10/07/16 17:23:00 CUFF TURNER MACHINE OPERATOR Start Date: 09/07/16 Stop Date: 09/08/16 Status: DiscontinuedDextrose 50% Syringe 12.5 gm, 25 mL, Route: IVP, Drug Form: INJ, Dosing Weight 74.091, kg, PRN, PRN Blood Glucose Results, Start date: 09/07/16 17:24:00 CUFF TURNER MACHINE OPERATOR, Duration: 30 day, Stop date: 10/07/16 17:23:00 CUFF TURNER MACHINE OPERATOR Start Date: 09/07/16 Stop Date: 09/08/16 Status: DiscontinueddiphenhydrAMINE 25 mg, 1 cap, Route: PO, Drug form: CAP, Bedtime, Dosing Weight 76.545, kg, PRN Insomnia, Start date: 09/07/16 10:21:00 CUFF TURNER MACHINE OPERATOR, Duration: 30 day, Stop date: 10:20:00 CUFF TURNER MACHINE OPERATOR Notes: (Same as: Benadryl) Start Date: 09/07/16 Stop Date: 09/08/16 Status: DiscontinueddiphenhydrAMINE 12.5 mg, 5 mL, Route: PO, Drug form: LIQ, Q6H, Dosing Weight 76.545, kg, PRN Itching, Start date: 09/07/16 12:26:00 CUFF TURNER MACHINE OPERATOR, Duration: 30 day, Stop date: 12:25:00 CUFF TURNER MACHINE OPERATOR Notes: (Same as: Benadryl) Start Date: 09/07/16 Stop Date: 09/08/16 Status: Discontinueddocusate 100 mg, 1 cap, Route: PO, Drug form: CAP, BID, Dosing Weight 76.545, kg, Start date: 09/07/16 17:00:00 CUFF TURNER MACHINE OPERATOR, Duration: 30 day, Stop date: 10/07/16 9:00:00 CUFF TURNER MACHINE OPERATOR Notes: (Same as: Colace) (Do Not Crush) Start Date: 09/07/16 Stop Date: 09/08/16 Status: Discontinueddocusate 100 mg, 1 cap, Route: PO, Drug form: CAP, BID, Dosing Weight 74.091, kg, Start date: 09/07/16 17:00:00 CUFF TURNER MACHINE OPERATOR, Duration: 30 day, Stop date: 10/07/16 9:00:00 CUFF TURNER MACHINE OPERATOR Notes: (Same as: Colace) (Do Not Crush) Start Date: 09/07/16 Stop Date: 09/08/16 Status: Discontinueddocusate sodium 100 mg oral capsule 100 mg, 1 cap, Route: PO, Drug form: CAP, BID, Dosing Weight 76.545, kg, Start date: 09/07/16 17:00:00 CUFF TURNER MACHINE OPERATOR, Duration: 30 day, Stop date: 10/07/16 9:00:00 CUFF TURNER MACHINE OPERATOR Notes: (Same as: Colace) (Do Not Crush) Start Date: 09/07/16 Stop Date: 09/07/16 Status: DiscontinuedDuoNeb inhalation solution 3 mL, Route: NEB, Dosing Weight 80, kg, Q20Min, PRN Wheezing, call anesthesiologist if wheezing unresolved after 2nd dose., Start date: 09/07/16 11:12:00 CUFF TURNER MACHINE OPERATOR, Duration: 4 doses or times, Stop date: Limited # of times Start Date: 09/07/16 Stop Date: 09/07/16 Status: DiscontinuedEliquis 2.5 mg oral tablet 2.5 mg=1 tab, PO, BID, 0 Refill(s) Start Date: 08/31/16 Status: Orderedenoxaparin 40 mg, 0.4 mL, Route: SUB-Q, Drug form: INJ, [id number], Dosing Weight 76.545, kg , Start date: 09/07/16 11:00:00 CUFF TURNER MACHINE OPERATOR, Duration: 30 day, Stop date: 10/06/16 8:00: 00 CUFF TURNER MACHINE OPERATOR Notes: (Same as: Lovenox) Start Date: 09/07/16 Stop Date: 09/08/16 Status: DiscontinuedePHEDrine (ANES) Route: IV, Drug form: INJ, ONCE, Stop date: 09/07/16 9:35:00 CUFF TURNER MACHINE OPERATOR Start Date: 09/07/16 Stop Date: 09/07/16 Status: CompletedfentaNYL (ANES) Route: IV, Drug form: INJ, ONCE, Stop date: 09/07/16 9:20:00 CUFF TURNER MACHINE OPERATOR Start Date: 09/07/16 Stop Date: 09/07/16 Status: CompletedFish Oil PO, Daily, 0 Refill(s) Start Date: 08/31/16 Status: Orderedgabapentin 100 mg, 1 cap, Route: PO, Drug form: CAP, Q8Hnow, Dosing Weight 76.545, kg, Start date: 09/07/16 13:00:00 CUFF TURNER MACHINE OPERATOR, Duration: 30 day, Stop date: 10/07/16 5:00: 00 CUFF TURNER MACHINE OPERATOR Notes: (Same as: Neurontin) Start Date: 09/07/16 Stop Date: 09/08/16 Status: Discontinuedglucagon 1 mg, Route: IM, Drug form: PDR/INJ, PRN, Dosing Weight 74.091, kg, PRN Blood Glucose Results, Startdate: 09/07/16 17:24:00 CUFF TURNER MACHINE OPERATOR, Duration: 30 day, Stop date: 10/07/16 17:23:00 CUFF TURNER MACHINE OPERATOR Start Date: 09/07/16 Stop Date: 09/08/16 Status: Discontinuedglycopyrrolate (ANES) Route: IV, Drug form: INJ, ONCE, Stop date: 09/07/16 10:45:00 CUFF TURNER MACHINE OPERATOR Start Date: 09/07/16 Stop Date: 09/07/16 Status: Completedinsulin aspart 2 unit, 0.02 mL, Route: SUB-Q, Drug form: SOLN, TID-Before Meals, Dosing Weight 74.091, kg, PRN Blood Glucose Results, Start date: 09/07/16 17:24:00 CUFF TURNER MACHINE OPERATOR, Duration: 30 day, Stop date: 10/07/16 17:23:00 CUFF TURNER MACHINE OPERATOR Notes: Roll in palms of hands gently; Do not shake vigorously. (Same as: AugmentLOG)"single patient use only"WASTE: F/P - Black; E - Municipal Trash Bin Stable for 28 days at room temperature.Expires in days from Date Start Date: 09/07/16 Stop Date: 09/08/16 Status: Discontinuedinsulin aspart 5 unit, 0.05 mL, Route: SUB-Q, Drug form: SOLN, TID-Before Meals, Dosing Weight 74.091, kg, PRN Blood Glucose Results, Start date: 09/07/16 17:24:00 CUFF TURNER MACHINE OPERATOR, Duration: 30 day, Stop date: 10/07/16 17:23:00 CUFF TURNER MACHINE OPERATOR Notes: Roll in palms of hands gently; Do not shake vigorously. (Same as: [employer])"single patient use only"WASTE: F/P - Black; E - Municipal Trash Bin Stable for 28 days at room temperature.Expires in days from Date Start Date: 09/07/16 Stop Date: 09/08/16 Status: Discontinuedinsulin aspart 3 unit, 0.03 mL, Route: SUB-Q, Drug form: SOLN, TID-Before Meals, Dosing Weight 74.091, kg, PRN Blood Glucose Results, Start date: 09/07/16 17:24:00 CUFF TURNER MACHINE OPERATOR, Duration: 30 day, Stop date: 10/07/16 17:23:00 CUFF TURNER MACHINE OPERATOR Notes: Roll in palms of hands gently; Do not shake vigorously. (Same as: AugmentLOG)"single patient use only"WASTE: F/P - Black; E - Municipal Trash Bin Stable for 28 days at room temperature.Expires in days from Date Start Date: 09/07/16 Stop Date: 09/08/16 Status: Discontinuedinsulin aspart 4 unit, 0.04 mL, Route: SUB-Q, Drug form: SOLN, TID-Before Meals, Dosing Weight 74.091, kg, PRN Blood Glucose Results, Start date: 09/07/16 17:24:00 CUFF TURNER MACHINE OPERATOR, Duration: 30 day, Stop date: 10/07/16 17:23:00 CUFF TURNER MACHINE OPERATOR Notes: Roll in palms of hands gently; Do not shake vigorously. (Same as: [employer])"single patient use only"WASTE: F/P - Black; E - Municipal Trash Bin Stable for 28 days at room temperature.Expires in days from Date Start Date: 09/07/16 Stop Date: 09/08/16 Status: Discontinuedinsulin aspart 1 unit, 0.01 mL, Route: SUB-Q, Drug form: SOLN, TID-Before Meals, Dosing Weight 74.091, kg, PRN Blood Glucose Results, Start date: 09/07/16 17:24:00 CUFF TURNER MACHINE OPERATOR, Duration: 30 day, Stop date: 10/07/16 17:23:00 CUFF TURNER MACHINE OPERATOR Notes: Roll in palms of hands gently; Do not shake vigorously. (Same as: [employer])"single patient use only"WASTE: F/P - Black; E - Municipal Trash Bin Stable for 28 days at room temperature.Expires in days from Date Start Date: 09/07/16 Stop Date: 09/08/16 Status: Discontinuedinsulin aspart 2 unit, Route: SUB-Q, Sliding Scale, Dosing Weight 76.545, kg, PRN Blood Glucose Results, Start date: 09/07/16 11:12:00 CUFF TURNER MACHINE OPERATOR, Duration: 30 day, Stop date : 10/07/16 11:11:00 CUFF TURNER MACHINE OPERATOR Start Date: 09/07/16 Stop Date: 09/07/16 Status: Discontinuedinsulin aspart 1 unit, Route: SUB-Q, Sliding Scale, Dosing Weight 76.545, kg, PRN Blood Glucose Results, Start date: 09/07/16 11:12:00 CUFF TURNER MACHINE OPERATOR, Duration: 30 day, Stop date : 10/07/16 11:11:00 CUFF TURNER MACHINE OPERATOR Start Date: 09/07/16 Stop Date: 09/07/16 Status: Discontinuedinsulin aspart 3 unit, Route: SUB-Q, Sliding Scale, Dosing Weight 76.545, kg, PRN Blood Glucose Results, Start date: 09/07/16 11:12:00 CUFF TURNER MACHINE OPERATOR, Duration: 30 day, Stop date : 10/07/16 11:11:00 CUFF TURNER MACHINE OPERATOR Start Date: 09/07/16 Stop Date: 09/07/16 Status: Discontinuedinsulin aspart 4 unit, Route: SUB-Q, Sliding Scale, Dosing Weight 76.545, kg, PRN Blood Glucose Results, Start date: 09/07/16 11:12:00 CUFF TURNER MACHINE OPERATOR, Duration: 30 day, Stop date : 10/07/16 11:11:00 CUFF TURNER MACHINE OPERATOR Start Date: 09/07/16 Stop Date: 09/07/16 Status: Discontinuedinsulin aspart 5 unit, Route: SUB-Q, Sliding Scale, Dosing Weight 76.545, kg, PRN Blood Glucose Results, Start date: 09/07/16 11:12:00 CUFF TURNER MACHINE OPERATOR, Duration: 30 day, Stop date : 10/07/16 11:11:00 CUFF TURNER MACHINE OPERATOR Start Date: 09/07/16 Stop Date: 09/07/16 Status: Discontinuedinsulin aspart 1 unit, 0.01 mL, Route: SUB-Q, Drug form: SOLN, Sliding Scale, Dosing Weight 80 , kg, PRN Blood Glucose Results, Start date: 09/07/16 6:17:00 CUFF TURNER MACHINE OPERATOR, Duration: 30 day, Stop date: 10/07/16 6:16:00 CUFF TURNER MACHINE OPERATOR Notes: Roll in palms of hands gently; Do not shake vigorously. (Same as: [employer])"single patient use only"WASTE: F/P - Black; E - Municipal Trash Bin Stable for 28 days at room temperature.Expires in days from Date Start Date: 09/07/16 Stop Date: 09/07/16 Status: Discontinuedinsulin aspart 2 unit, 0.02 mL, Route: SUB-Q, Drug form: SOLN, Sliding Scale, Dosing Weight 80 , kg, PRN Blood Glucose Results, Start date: 09/07/16 6:17:00 CUFF TURNER MACHINE OPERATOR, Duration: 30 day, Stop date: 10/07/16 6:16:00 CUFF TURNER MACHINE OPERATOR Notes: Roll in palms of hands gently; Do not shake vigorously. (Same as: [employer])"single patient use only"WASTE: F/P - Black; E - Municipal Trash Bin Stable for 28 days at room temperature.Expires in days from Date Start Date: 09/07/16 Stop Date: 09/07/16 Status: Discontinuedinsulin aspart 5 unit, 0.05 mL, Route: SUB-Q, Drug form: SOLN, Sliding Scale, Dosing Weight 80 , kg, PRN Blood Glucose Results, Start date: 09/07/16 6:17:00 CUFF TURNER MACHINE OPERATOR, Duration: 30 day, Stop date: 10/07/16 6:16:00 CUFF TURNER MACHINE OPERATOR Notes: Roll in palms of hands gently; Do not shake vigorously. (Same as: [employer])"single patient use only"WASTE: F/P - Black; E - Municipal Trash Bin Stable for 28 days at room temperature.Expires in days from Date Start Date: 09/07/16 Stop Date: 09/07/16 Status: Discontinuedinsulin aspart 4 unit, 0.04 mL, Route: SUB-Q, Drug form: SOLN, Sliding Scale, Dosing Weight 80 , kg, PRN Blood Glucose Results, Start date: 09/07/16 6:17:00 CUFF TURNER MACHINE OPERATOR, Duration: 30 day, Stop date: 10/07/16 6:16:00 CUFF TURNER MACHINE OPERATOR Notes: Roll in palms of hands gently; Do not shake vigorously. (Same as: AugmentLOG)"single patient use only"WASTE: F/P - Black; E - Municipal Trash Bin Stable for 28 days at room temperature.Expires in days from Date Start Date: 09/07/16 Stop Date: 09/07/16 Status: Discontinuedinsulin aspart 3 unit, 0.03 mL, Route: SUB-Q, Drug form: SOLN, Sliding Scale, Dosing Weight 80 , kg, PRN Blood Glucose Results, Start date: 09/07/16 6:17:00 CUFF TURNER MACHINE OPERATOR, Duration: 30 day, Stop date: 10/07/16 6:16:00 CUFF TURNER MACHINE OPERATOR Notes: Roll in palms of hands gently; Do not shake vigorously. 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 Start Date: 09/07/16 Stop Date: 09/08/16 Status: DiscontinuedLactated Ringers 1,000 mL 1,000 mL, Rate: 25 ml/hr, Infuse over: 40 hr, Route: IV, Dosing Weight 80 kg, Total Volume: 1,000, Start date: 09/07/16 6:17:00 CUFF TURNER MACHINE OPERATOR, Duration: 30 day, Stop date: 10/07/16 6:16:00 CUFF TURNER MACHINE OPERATOR Start Date: 09/07/16 Stop Date: 09/07/16 Status: DiscontinuedLactated Ringers Injection IV 1000 mL 1,000 mL, Rate: 125 ml/hr, Infuse over: 8 hr, Route: IV, Dosing Weight 76.545 kg , Total Volume: 1,000, Start date: 09/07/16 11:12:00 CUFF TURNER MACHINE OPERATOR, Duration: 30 day, Stop date: 10/07/16 11:11:00 CUFF TURNER MACHINE OPERATOR Start Date: 09/07/16 Stop Date: 09/07/16 Status: Discontinuedlidocaine (ANES) Route: IV, Drug form: INJ, ONCE, Stop date: 09/07/16 9:20:00 CUFF TURNER MACHINE OPERATOR Start Date: 09/07/16 Stop Date: 09/07/16 Status: CompletedLR 1000 mL INJ (ANES) Route: IV, Total Volume: 1,000, Start date: 09/07/16 8:14:00 CUFF TURNER MACHINE OPERATOR, Stop date: 9:14:00 CUFF TURNER MACHINE OPERATOR Start Date: 09/07/16 Stop Date: 09/07/16 Status: Completedmidazolam (ANES) Route: IV, Drug form: SOLN, ONCE, Stop date: 09/07/16 9:20:00 CUFF TURNER MACHINE OPERATOR Start Date: 09/07/16 Stop Date: 09/07/16 Status: Completedmorphine Sulfate 2 mg, 1 mL, Route: IVP, Drug form: INJ, Q3H, Dosing Weight 76.545, kg, PRN Other -See Comment, Startdate: 09/07/16 10:21:00 CUFF TURNER MACHINE OPERATOR, Duration: 30 day, Stop date: 10/07/16 10:20:00 CUFF TURNER MACHINE OPERATOR Notes: (Same as:MORPhine Sulfate) Start Date: 09/07/16 Stop Date: 09/08/16 Status: Discontinuedmorphine Sulfate 2 mg, 1 mL, Route: IVP, Drug form: INJ, Q4H, Dosing Weight 76.545, kg, PRN Pain Score 7-10, Start date: 09/07/16 12:26:00 CUFF TURNER MACHINE OPERATOR, Duration: 30 day, Stop date: 12:25:00 CUFF TURNER MACHINE OPERATOR Notes: (Same as:MORPhine Sulfate) Start Date: 09/07/16 Stop Date: 09/08/16 Status: Discontinuednalbuphine 2 mg, 0.2 mL, Route: IVP, Drug form: INJ, Q2H, Dosing Weight 76.545, kg, PRN Itching, Start date: 09/07/16 12:26:00 CUFF TURNER MACHINE OPERATOR, Duration: 5 doses or times, Stop date: Limited # of times Notes: (Same As: Nubain) Start Date: 09/07/16 Stop Date: 09/08/16 Status: Discontinuedneostigmine (ANES) Route: IV, Drug form: INJ, ONCE, Stop date: 09/07/16 10:45:00 CUFF TURNER MACHINE OPERATOR Start Date: 09/07/16 Stop Date: 09/07/16 Status: Completedondansetron 4 mg, 2 mL, Route: IVP, Drug form: INJ, Q6H, Dosing Weight 76.545, kg, PRN Nausea & Vomiting, Start date: 09/07/16 10:21:00 CUFF TURNER MACHINE OPERATOR, Duration: 30 day, Stop date: 10/07/16 10:20:00 CUFF TURNER MACHINE OPERATOR Notes: (Same as: Willem) MEDICATION WASTE Product Size: 4 mgProduct Wasted: ___ mg Start Date: 09/07/16 Stop Date: 09/08/16 Status: Discontinuedondansetron 4 mg, 2 mL, Route: IVP, Drug form: INJ, Q8H, Dosing Weight 76.545, kg, Start date: 09/07/16 16:00:00CST, Duration: 2 day, Stop date: 09/09/16 8:00:00 CUFF TURNER MACHINE OPERATOR Notes: (Same as: Willem) MEDICATION WASTE Product Size: 4 mgProduct Wasted: ___ mg Start Date: 09/07/16 Stop Date: 09/08/16 Status: Discontinuedondansetron 4 mg, 2 mL, Route: IVP, Drug form: INJ, Q6H, Dosing Weight 74.091, kg, PRN Nausea & Vomiting, Start date: 09/07/16 15:04:00 CUFF TURNER MACHINE OPERATOR, Duration: 30 day, Stop date: 10/07/16 15:03:00 CUFF TURNER MACHINE OPERATOR Notes: (Same as: Willem) MEDICATION WASTE Product Size: 4 mgProduct Wasted: ___ mg Start Date: 09/07/16 Stop Date: 09/08/16 Status: Discontinuedondansetron (ANES) Route: IV, Drug form: INJ, ONCE, Stop date: 09/07/16 9:40:00 CUFF TURNER MACHINE OPERATOR Start Date: 09/07/16 Stop Date: 09/07/16 Status: CompletedoxyCODONE 5 mg immediate release 10 mg, 2 tab, Route: PO, Drug form: TAB, Q4H, Dosing Weight 76.545, kg, PRN Pain Score 7-10, Start date: 09/07/16 12:26:00 CUFF TURNER MACHINE OPERATOR, Duration: 30 day, Stop date : 10/07/16 12:25:00 CUFF TURNER MACHINE OPERATOR Notes: (Same as: Roxicodone) Start Date: 09/07/16 Stop Date: 09/08/16 Status: DiscontinuedoxyCODONE 5 mg immediate release 5 mg, 1 tab, Route: PO, Drug form: TAB, Q4H, Dosing Weight 76.545, kg, PRN Pain Score 4-6, Start date: 09/07/16 12:26:00 CUFF TURNER MACHINE OPERATOR, Duration: 30 day, Stop date: 10/07 12:25:00 CUFF TURNER MACHINE OPERATOR Notes: (Same as: Roxicodone) Start Date: 09/07/16 Stop Date: 09/08/16 Status: Discontinuedphenylephrine Route: IV, Q5Min, Dosing Weight 80, kg, PRN Hypotension, Start date: 09/07/16 11 :12:00 CUFF TURNER MACHINE OPERATOR, Duration: 30 day, Stop date: 10/07/16 11:11:00 CUFF TURNER MACHINE OPERATOR Start Date: 09/07/16 Stop Date: 09/07/16 Status: Discontinuedphenylephrine (ANES) Route: IV, Drug form: INJ, ONCE, Stop date: 09/07/16 9:35:00 CUFF TURNER MACHINE OPERATOR Start Date: 09/07/16 Stop Date: 09/07/16 Status: Completedpropofol (ANES) Route: IV, Drug form: INJ, ONCE, Stop date: 09/07/16 9:20:00 CUFF TURNER MACHINE OPERATOR Start Date: 09/07/16 Stop Date: 09/07/16 Status: Completedrocuronium (ANES) Route: IV, Drug form: INJ, ONCE, Stop date: 09/07/16 9:20:00 CUFF TURNER MACHINE OPERATOR Start Date: 09/07/16 Stop Date: 09/07/16 Status: Completedsotalol 80 mg oral tablet 80 mg=1 tab, PO, BID, 0 Refill(s) Start Date: 08/31/16 Status: Orderedtramadol 100 mg, 2 tab, Route: PO, Drug form: TAB, Q6Hnow, Dosing Weight 76.545, kg, Start date: 09/07/16 13:00:00 CUFF TURNER MACHINE OPERATOR, Duration: 30 day, Stop date: 10/07/16 7:00: 00 CUFF TURNER MACHINE OPERATOR Notes: Not to exceed 400mg/day. (Same As: Ultram) Start Date: 09/07/16 Stop Date: 09/08/16 Status: DiscontinuedTriCor PO, Daily, 0 Refill(s) Start Date: 08/31/16 Status: Ordered Results BLOOD BANK RESULTS Most recent to oldest [Reference Range]: 1 2 ABO/Rh O NEG *Unknown* (08/31/16 11:43 AM) Antibody Scrn Negative (08/31/16 11:43 AM) RBC product Product available 1 (09/07/16 8:24 AM) 1Result Comment: 09/07/2016 10:31 [id number] RBC ready at 09/07/2016 10:25, notified to nurse Kassi Santiago (RILEY) by ISABEL.ELECTROLYTES Most recent to oldest [Reference Range]: 1 2 Sodium Lvl [135-145 mEq/L] 138 mEq/L 139 mEq/L (09/08/16 5:52 AM) (08/31/16 11:43 AM) Potassium Lvl [3.5-5.1 mEq/L] 4.3 mEq/L 4.3 mEq/L (09/08/16 5:52 AM) (08/31/16 11:43 AM) Chloride Lvl [95-109 mEq/L] 103 mEq/L 104 mEq/L (09/08/16 5:52 AM) (08/31/16 11:43 AM) CO2 [24-32 mEq/L] 25 mEq/L 27 mEq/L (09/08/16 5:52 AM) (08/31/16 11:43 AM) AGAP [10.0-20.0 mEq/L] 14.3 mEq/L 12.3 mEq/L (09/08/16 5:52 AM) (08/31/16 11:43 AM) CHEM PANEL Most recent to oldest [Reference Range]: 1 2 Creatinine Lvl [0.50-1.40 mg/dL] 1.32 mg/dL 1.13 mg/dL (09/08/16 5:52 AM) (08/31/16 11:43 AM) eGFR 56 mL/min/1.73m2 1 67 mL/min/1.73m2 2 *NA* *NA* (09/08/16 5:52 AM) (08/31/16 11:43 AM) BUN [7-22 mg/dL] 21 mg/dL 21 mg/dL (09/08/16 5:52 AM) (08/31/16 11:43 AM) B/C Ratio [6-25] 16 19 (09/08/16 5:52 AM) (08/31/16 11:43 AM) Glucose Lvl [70-99 mg/dL] 133 mg/dL 203 mg/dL *HI* *HI* (09/08/16 5:52 AM) (08/31/16 11:43 AM) Total Protein [6.4-8.4 g/dL] 5.9 g/dL 6.7 g/dL *LOW* (08/31/16 11:43 AM) (09/08/16 5:52 AM) Albumin Lvl [3.5-5.0 g/dL] 3.3 g/dL 3.7 g/dL *LOW* (08/31/16 11:43 AM) (09/08/16 5:52 AM) Globulin [2.7-4.2 g/dL] 2.6 g/dL 3.0 g/dL *LOW* (08/31/16 11:43 AM) (09/08/16 5:52 AM) A/G Ratio [0.7-1.6] 1.3 1.2 (09/08/16 5:52 AM) (08/31/16 11:43 AM) Calcium Lvl [8.5-10.5 mg/dL] 7.9 mg/dL 8.6 mg/dL *LOW* (08/31/16 11:43 AM) (09/08/16 5:52 AM) ALT [0-65 unit/L] 16 unit/L 23 unit/L (09/08/16 5:52 AM) (08/31/16 11:43 AM) AST [0-37 unit/L] 21 unit/L 19 unit/L (09/08/16 5:52 AM) (08/31/16 11:43 AM) Alk Phos [39-136 unit/L] 31 unit/L 43 unit/L *LOW* (08/31/16 11:43 AM) (09/08/16 5:52 AM) Bili Total [0.2-1.3 mg/dL] 0.5 mg/dL 0.5 mg/dL (09/08/16 5:52 AM) (08/31/16 11:43 AM) 1Result Comment: The eGFR is calculated using the CKD-EPI formula. In most young , healthy individualsthe eGFR will be >90 mL/min/1.73m2. The eGFR declines with age. An eGFR of 60-89 may be normal in some populations, particularly the elderly, for whom the CKD-EPI formula has not been extensively validated. Use of the eGFR is not recommended in the following populations: Individuals with unstable creatinine concentrations, including patients and those with serious co-morbid conditions. Patients with extremes in muscle mass or diet. The data above are obtained from the National Kid[employer] Education Program ( [employer]) which additionally recommends that when the eGFR is used in patients with extremes of body mass index for purposesof drug dosing, the eGFR should be multiplied by the estimated BMI.2Result Comment: The eGFR is calculated using the CKD-EPI formula. In most young, healthy individualsthe eGFR will be >90 mL/ min/1.73m2. The eGFR declines with age. An eGFR of 60-89 may be normal in some populations, particularly the elderly, for whom the CKD-EPI formula has not been extensively validated. Use of the eGFR is not recommended in the following populations: Individuals with unstable creatinine concentrations, including patients and those with serious co-morbid conditions. Patients with extremes in muscle mass or diet. The data above are obtained from the National Kid[employer] Education Program ( [employer]) which additionally recommends that when the eGFR is used in patients with extremes of body mass index for purposesof drug dosing, the eGFR should be multiplied by the estimated BMI.URINE AND STOOL Most recent to oldest [Reference Range]: 1 2 UA Turbidity [Clear] Clear (08/31/16 12:19 PM) UA Color [Yellow] Light Yellow *NA* (08/31/16 12:19 PM) UA pH [5.0-8.0] 7.0 (08/31/16 12:19 PM) UA Spec Grav [<=1.030] 1.016 (08/31/16 12:19 PM) UA Glucose [Negative mg/dL] Negative mg/dL *NA* (08/31/16 12:19 PM) UA Blood [Negative] Negative (08/31/16 12:19 PM) UA Ketones [Negative mg/dL] Negative mg/dL *NA* (08/31/16 12:19 PM) UA Protein [Negative mg/dL] Negative mg/dL (08/31/16 12:19 PM) UA Urobilinogen [0.1-1.0 mg/dL] <=1.0 mg/dL *NA* (08/31/16 12:19 PM) UA Bili [Negative] Negative *NA* (08/31/16 12:19 PM) UA Leuk Est [Negative] Negative (08/31/16 12:19 PM) UA Nitrite [Negative] Negative (08/31/16 12:19 PM) UA WBC [0-5 /HPF] <1 /HPF (08/31/16 12:19 PM) UA RBC [0-2 /HPF] <1 /HPF (08/31/16 12:19 PM) UA Sq Epi None Seen *NA* (08/31/16 12:19 PM) UA Hyal Cast [0-2 /LPF] 1 /LPF (08/31/16 12:19 PM) UA Mucus [None Seen /LPF] Few /LPF *NA* (08/31/16 12:19 PM) HEMATOLOGY Most recent to oldest [Reference Range]: 1 2 WBC [3.7-10.4 K/CMM] 13.4 K/CMM 6.7 K/CMM *HI* (08/31/16 11:43 AM) (09/08/16 5:52 AM) RBC [4.70-6.10 M/CMM] 3.87 M/CMM 4.41 M/CMM *LOW* *LOW* (09/08/16 5:52 AM) (08/31/16 11:43 AM) Hgb [14.0-18.0 g/dL] 11.4 g/dL 13.1 g/dL *LOW* *LOW* (09/08/16 5:52 AM) (08/31/16 11:43 AM) Hct [42.0-54.0 %] 34.9 % 39.2 % *LOW* *LOW* (09/08/16 5:52 AM) (08/31/16 11:43 AM) MCV [80.0-94.0 fL] 90.1 fL 88.9 fL (09/08/16 5:52 AM) (08/31/16 11:43 AM) MCH [27.0-31.0 pg] 29.3 pg 29.8 pg (09/08/16 5:52 AM) (08/31/16 11:43 AM) MCHC [32.0-36.0 g/dL] 32.5 g/dL 33.5 g/dL (09/08/16 5:52 AM) (08/31/16 11:43 AM) RDW [11.5-14.5 %] 13.6 % 13.9 % (09/08/16 5:52 AM) (08/31/16 11:43 AM) Platelet [133-450 K/CMM] 212 K/CMM 244 K/CMM (09/08/16 5:52 AM) (08/31/16 11:43 AM) MPV [7.4-10.4 fL] 8.7 fL 8.4 fL (09/08/16 5:52 AM) (08/31/16 11:43 AM) Segs [45.0-75.0 %] 79.7 % 58.3 % *HI* (08/31/16 11:43 AM) (09/08/16 5:52 AM) Lymphocytes [20.0-40.0 %] 14.0 % 30.7 % *LOW* (08/31/16 11:43 AM) (09/08/16 5:52 AM) Monocytes [2.0-12.0 %] 5.7 % 5.6 % (09/08/16 5:52 AM) (08/31/16 11:43 AM) Eosinophils [0.0-4.0 %] 0.3 % 4.2 % (09/08/16 5:52 AM) *HI* (08/31/16 11:43 AM) Basophils [0.0-1.0 %] 0.3 % 1.2 % (09/08/16 5:52 AM) *HI* (08/31/16 11:43 AM) Segs-Bands # [1.5-8.1 K/CMM] 10.7 K/CMM 3.9 K/CMM *HI* (08/31/16 11:43 AM) (09/08/16 5:52 AM) Lymphocytes # [1.0-5.5 K/CMM] 1.9 K/CMM 2.1 K/CMM (09/08/16 5:52 AM) (08/31/16 11:43 AM) Monocytes # [0.0-0.8 K/CMM] 0.8 K/CMM 0.4 K/CMM (09/08/16 5:52 AM) (08/31/16 11:43 AM) Eosinophils # [0.0-0.5 K/CMM] 0.0 K/CMM 0.3 K/CMM (09/08/16 5:52 AM) (08/31/16 11:43 AM) Basophils # [0.0-0.2 K/CMM] 0.0 K/CMM 0.1 K/CMM (09/08/16 5:52 AM) (08/31/16 11:43 AM) RBC Morph Normal (09/08/16 5:52 AM) Plt Morph Normal (09/08/16 5:52 AM) PT [12.0-14.7 seconds] 14.3 seconds (08/31/16 11:43 AM) INR [0.85-1.17] 1.09 (08/31/16 11:43 AM) PTT [22.9-35.8 seconds] 31.1 seconds (08/31/16 11:43 AM) Immunizations No data available for this section Procedures Procedure Date Related Diagnosis Body Site Arthroplasty of shoulder 09/07/16 Cardiac catheterisation 2013 Pacemaker care 2013 CABG x 3 - Coronary artery bypass grafts x 3 2009 Social History Social History Type Response Substance Abuse Use: None. Exercise Exercise duration: 40. Employment/School Status: Employed. Alcohol Never Smoking Status Current every day smoker; Type: Cigarettes; Exposure to Tobacco Smoke None; Cigarette Smoking Last 365 Days No; Reg Smoking Cessation Counseling Yes Assessment and Plan Extracted from: Title: Anesthesia APMS Progress Note* Author: Ariana Rosenbaum Date: 09/08/16 Plan APMS Plan Discharge from APMT care: Analgesics per Primary Service. Ariana Epstein RN , am scribing for and in the presence of Dr. Delaney Crystal..
--- OUTSIDE RECORDS SUMMARY | 2018-03-26 10:32 | XMS REPORT ---
:1950 Author Organization [facility] Address [address] [place] [address] Care Team Providers Name Role Phone YEFRISHEEBA TRUJILLO Unavailable Unavailable KEO AGUILAR Unavailable Unavailable MARY BOYLE Unavailable Unavailable WILY LINARES Unavailable Unavailable SAUL TARIQ Unavailable Unavailable Problems This patient has no known problems. Allergies, Adverse Reactions, Alerts This patient has no known allergies or adverse reactions. Medications This patient has no known medications. Results Test Description Test Time Test Comments Text Results Atomic Results Result Comments IMMUNOFIXATION ELECTROPHORESIS (ANAND) 2018-03-22 09:59:00 Test Item Value Reference Range Comments IMMUNOGLOBULIN G (IGG) (BEAKER) (test 944 mg/dL 540-1822 lbfl=179) IMMUNOGLOBULIN A (IGA) (BEAKER) (test 137 mg/dL 63-484 hnoc=331) IMMUNOGLOBULIN M (IGM) (BEAKER) (test 41 mg/dL 22-293 cdrw=083) SERUM ANAND ID (BEAKER) (test wtos=4747) No monoclonal proteins detected. Polyclonal distribution of immunoglobulins. [id number] (BEAKER) (test Angely Santos MD (electronic xnap=7629) signature) PROTEIN ELECTROPHORESIS, [id number] 16:21:00 Test Item Value Reference Range Comments ALBUMIN FRACTION (BEAKER) 3.3 g/dL 3.5-5.5 (test smzs=765) ALPHA 1 FRACTION (BEAKER) 0.3 g/dL 0.2-0.4 (test efae=430) ALPHA 2 FRACTION (BEAKER) 1.0 g/dL 0.5-0.9 (test eamq=262) BETA FRACTION (BEAKER) (test 1.0 g/dL 0.6-1.1 lvdk=637) GAMMA GLOBULIN FRACTION 0.8 g/dL 0.7-1.7 (BEAKER) (test rtlv=641) INTERPRETATION-119 (BEAKER) All fractions present in (test djbg=7313) expected distribution. No monoclonal bands detected. No significant change from previous study performed 12-13-17. [id number] (BEAKER) Angely Santos MD (test kjko=6354) (electronic signature) PROTEIN TOTAL SERUM, SPEP 6.4 gm/dL 6.0-8.3 (BEAKER) (test pcnt=3655) TSH/FREE T4 IF [id number] 09:28:00 Test Item Value Reference Range Comments THYROID STIMULATING HORMONE (BEAKER) (test 3.29 uIU/mL 0.35-4.94 eeoe=023) B-TYPE NATRIURETIC FACTOR (BNP)2018-03-15 09:11:00 Test Item Value Reference Range Comments B-TYPE NATRIURETIC PEPTIDE (BEAKER) (test 641 pg/mL 0-100 nfht=919) LIPID [id number] 09:05:00 Test Item Value Reference Range Comments TRIGLYCERIDES (BEAKER) (test qgfp=372) 117 mg/dL CHOLESTEROL (BEAKER) (test djof=010) 136 mg/dL HDL CHOLESTEROL (BEAKER) (test bjok=280) 41 mg/dL LDL CHOLESTEROL CALCULATED (BEAKER) (test 72 mg/dL chyz=196) Triglyceride Reference Range: Low Risk <150 Borderline 150- 199 High Risk 200-499 Very High Risk >=500Cholesterol Reference Range: Low Risk <200 Borderline 200-239 High Risk > 240HDL Cholesterol Reference Range: Low Risk >=60 High Risk <40LDL Cholesterol Reference Range: Optimal <100 Near Optimal 100-129 Borderline 130-159 High 160-189 Very High >=190BASIC METABOLIC [id number] 09:05:00 Test Item Value Reference Range Comments SODIUM (BEAKER) (test 137 meq/L 136-145 apzd=293) POTASSIUM (BEAKER) (test 4.7 meq/L 3.5-5.1 fbhg=284) CHLORIDE (BEAKER) (test 104 meq/L 98-107 qquk=153) CO2 (BEAKER) (test 29 meq/L 22-29 vyye=227) BLOOD UREA NITROGEN 21 mg/dL 7-21 (BEAKER) (test euva=589) CREATININE (BEAKER) (test 1.37 mg/dL 0.57-1.25 dvab=974) GLUCOSE RANDOM (BEAKER) 209 mg/dL 70-105 (test mcpi=587) CALCIUM (BEAKER) (test 8.8 mg/dL 8.4-10.2 epty=149) EGFR (BEAKER) (test 52 mL/min/1.73 sq m ESTIMATED GFR IS NOT mntr=6713) ACCURATE CREATININE CLEARANCE IN PREDICTING GLOMERULAR FILTRATION RATE. ESTIMATED GFR IS NOT APPLICABLE FOR DIALYSIS PATIENTS. HEPATIC FUNCTION [id number] 09:05:00 Test Item Value Reference Range Comments TOTAL PROTEIN (BEAKER) (test smtk=796) 6.8 gm/dL 6.0-8.3 ALBUMIN (BEAKER) (test jspg=4082) 3.8 g/dL 3.5-5.0 BILIRUBIN TOTAL (BEAKER) (test yzmz=242) 0.3 mg/dL 0.2-1.2 BILIRUBIN DIRECT (BEAKER) (test rkuz=546) 0.2 mg/dL 0.1-0.5 ALKALINE PHOSPHATASE (BEAKER) (test cret=070) 37 U/L 40-150 AST (SGOT) (BEAKER) (test kqdr=314) 24 U/L 5-34 ALT (SGPT) (BEAKER) (test kzfo=174) 19 U/L 6-55 CBC W/PLT COUNT & AUTO [id number] 09:02:00 Test Item Value Reference Range Comments WHITE BLOOD CELL COUNT (BEAKER) (test atfz=845) 6.0 K/ L 3.5-10.5 RED BLOOD CELL COUNT (BEAKER) (test qdgx=428) 3.96 M/ L 4.63-6.08 HEMOGLOBIN (BEAKER) (test tzvr=575) 11.2 GM/DL 13.7-17.5 HEMATOCRIT (BEAKER) (test mfjl=151) 36.8 % 40.1-51.0 MEAN CORPUSCULAR VOLUME (BEAKER) (test lsba=841) 92.9 fL 79.0-92.2 MEAN CORPUSCULAR HEMOGLOBIN (BEAKER) (test 28.3 pg 25.7-32.2 acsd=683) MEAN CORPUSCULAR HEMOGLOBIN CONC (BEAKER) (test 30.4 GM/DL 32.3-36.5 zzqp=813) RED CELL DISTRIBUTION WIDTH (BEAKER) (test 12.8 % 11.6-14.4 bdyw=949) PLATELET COUNT (BEAKER) (test nimg=235) 274 K/CU MM 150-450 MEAN PLATELET VOLUME (BEAKER) (test wvbu=829) 9.8 fL 9.4-12.4 NUCLEATED RED BLOOD CELLS (BEAKER) (test 0 /100 WBC 0-0 bfwr=384) NEUTROPHILS RELATIVE PERCENT (BEAKER) (test 66 % fkgl=999) LYMPHOCYTES RELATIVE PERCENT (BEAKER) (test 16 % ihly=198) MONOCYTES RELATIVE PERCENT (BEAKER) (test 8 % ainn=679) EOSINOPHILS RELATIVE PERCENT (BEAKER) (test 7 % txvp=813) BASOPHILS RELATIVE PERCENT (BEAKER) (test 2 % bzni=150) NEUTROPHILS ABSOLUTE COUNT (BEAKER) (test 3.91 K/ L 1.78-5.38 xplc=731) LYMPHOCYTES ABSOLUTE COUNT (BEAKER) (test 0.98 K/ L 1.32-3.57 xauv=610) MONOCYTES ABSOLUTE COUNT (BEAKER) (test 0.47 K/ L 0.30-0.82 brgh=969) EOSINOPHILS ABSOLUTE COUNT (BEAKER) (test 0.41 K/ L 0.04-0.54 nkkd=320) BASOPHILS ABSOLUTE COUNT (BEAKER) (test 0.11 K/ L 0.01-0.08 biul=708) IMMATURE GRANULOCYTES-RELATIVE PERCENT (BEAKER) 2 % 0-1 (test xuny=3345) HEMOGLOBIN [id number] 12:30:00 Test Item Value Reference Range Comments HEMOGLOBIN A1C (BEAKER) (test oaly=155) 6.3 % 4.3-6.1 ALKALINE [id number] 10:37:00 Test Item Value Reference Range Comments ALKALINE PHOSPHATASE (BEAKER) (test ugva=139) 43 U/L 40-150 [id number] 10:37:00 Test Item Value Reference Range Comments POTASSIUM (BEAKER) (test gicc=040) 5.6 meq/L 3.5-5.1 [id number] 10:37:00 Test Item Value Reference Range Comments MAGNESIUM (BEAKER) (test zegu=885) 1.9 mg/dL 1.6-2.6 [id number] 10:37:00 Test Item Value Reference Range Comments SODIUM (BEAKER) (test ddsx=903) 137 meq/L 136-145 AST (SGOT)2017-12-21 10:37:00 Test Item Value Reference Range Comments AST (SGOT) (BEAKER) (test ocdm=160) 24 U/L 5-34 ALT (SGPT)2017-12-21 10:37:00 Test Item Value Reference Range Comments ALT (SGPT) (BEAKER) (test eqic=062) 23 U/L 6-55 BILIRUBIN, ADULT [id number] 10:37:00 Test Item Value Reference Range Comments BILIRUBIN TOTAL (BEAKER) (test sryb=104) 0.3 mg/dL 0.2-1.2 BILIRUBIN, [id number] 10:37:00 Test Item Value Reference Range Comments BILIRUBIN DIRECT (BEAKER) (test tjfc=916) 0.2 mg/dL 0.1-0.5 [id number] 10:37:00 Test Item Value Reference Range Comments CHLORIDE (BEAKER) (test udnz=342) 102 meq/L 98-107 CREATINE KINASE (CK)2017-12-21 10:37:00 Test Item Value Reference Range Comments CREATINE KINASE TOTAL (BEAKER) (test mkkv=720) 166 U/L 29-200 LACTATE DEHYDROGENASE (LDH)2017-12-21 10:37:00 Test Item Value Reference Range Comments LACTATE DEHYDROGENASE (BEAKER) (test srkk=574) 223 U/L 125-220 BUN AND [id number] 10:37:00 Test Item Value Reference Range Comments BLOOD UREA NITROGEN 37 mg/dL 7-21 (BEAKER) (test giyt=402) CREATININE (BEAKER) (test 2.13 mg/dL 0.57-1.25 vtjm=347) EGFR (BEAKER) (test 31 mL/min/1.73 sq m ESTIMATED GFR IS NOT znkz=0482) ACCURATE CREATININE CLEARANCE IN PREDICTING GLOMERULAR FILTRATION RATE. ESTIMATED GFR IS NOT APPLICABLE FOR DIALYSIS PATIENTS. B-TYPE NATRIURETIC FACTOR (BNP)2017-12-21 10:36:00 Test Item Value Reference Range Comments B-TYPE NATRIURETIC PEPTIDE (BEAKER) (test 308 pg/mL 0-100 aaoq=809) IMMUNOFIXATION ELECTROPHORESIS (ANAND)2017-12-19 16:43:00 Test Item Value Reference Range Comments IMMUNOGLOBULIN G (IGG) (BEAKER) 914 mg/dL 540-1822 (test regy=680) IMMUNOGLOBULIN A (IGA) (BEAKER) 122 mg/dL 63-484 (test afit=058) IMMUNOGLOBULIN M (IGM) (BEAKER) 35 mg/dL 22-293 (test xqxc=781) SERUM ANAND ID (BEAKER) (test No monoclonal proteins kdfr=8877) detected. Polyclonal distribution of immunoglobulins. [id number] (BEAKER) Angely Santos MD (test brhp=8021) (electronic signature) PROTEIN ELECTROPHORESIS, [id number] 15:31:00 Test Item Value Reference Range Comments ALBUMIN FRACTION (BEAKER) 3.7 g/dL 3.5-5.5 (test nlab=328) ALPHA 1 FRACTION (BEAKER) 0.2 g/dL 0.2-0.4 (test ldtk=281) ALPHA 2 FRACTION (BEAKER) 0.8 g/dL 0.5-0.9 (test ugxl=411) BETA FRACTION (BEAKER) (test 0.9 g/dL 0.6-1.1 mxye=934) GAMMA GLOBULIN FRACTION 0.7 g/dL 0.7-1.7 (BEAKER) (test dgni=772) INTERPRETATION-119 (BEAKER) All fractions present in (test jyai=1686) expected distribution. No monoclonal bands detected. [id number] (BEAKER) Angely Santos MD (test segh=7424) (electronic signature) PROTEIN TOTAL SERUM, SPEP 6.4 gm/dL 6.0-8.3 (BEAKER) (test qotd=6702) [id number] 15:30:00 Test Item Value Reference Range Comments POTASSIUM (BEAKER) (test svne=566) 5.4 meq/L 3.5-5.1 TSH/FREE T4 IF [id number] 12:17:00 Test Item Value Reference Range Comments THYROID STIMULATING HORMONE (BEAKER) (test 3.18 uIU/mL 0.35-4.94 ejnu=290) BASIC METABOLIC [id number] 12:02:00 Test Item Value Reference Range Comments SODIUM (BEAKER) (test 138 meq/L 136-145 rxcp=046) POTASSIUM (BEAKER) (test 6.2 meq/L 3.5-5.1 izls=141) CHLORIDE (BEAKER) (test 104 meq/L 98-107 nizi=110) CO2 (BEAKER) (test 26 meq/L 22-29 hwta=233) BLOOD UREA NITROGEN 31 mg/dL 7-21 (BEAKER) (test ehkt=244) CREATININE (BEAKER) (test 2.09 mg/dL 0.57-1.25 xoui=027) GLUCOSE RANDOM (BEAKER) 126 mg/dL 70-105 (test xinj=419) CALCIUM (BEAKER) (test 9.8 mg/dL 8.4-10.2 bzyq=773) EGFR (BEAKER) (test 32 mL/min/1.73 sq m ESTIMATED GFR IS NOT ajtc=4328) ACCURATE CREATININE CLEARANCE IN PREDICTING GLOMERULAR FILTRATION RATE. ESTIMATED GFR IS NOT APPLICABLE FOR DIALYSIS PATIENTS. B-TYPE NATRIURETIC FACTOR (BNP)2017-12-13 12:00:00 Test Item Value Reference Range Comments B-TYPE NATRIURETIC PEPTIDE (BEAKER) (test 387 pg/mL 0-100 pnwq=419) CBC W/PLT COUNT & AUTO [id number] 11:36:00 Test Item Value Reference Range Comments WHITE BLOOD CELL COUNT (BEAKER) (test zsmf=752) 8.3 K/ L 3.5-10.5 RED BLOOD CELL COUNT (BEAKER) (test bsdc=608) 3.89 M/ L 4.63-6.08 HEMOGLOBIN (BEAKER) (test gbrh=669) 11.7 GM/DL 13.7-17.5 HEMATOCRIT (BEAKER) (test xwcf=109) 36.0 % 40.1-51.0 MEAN CORPUSCULAR VOLUME (BEAKER) (test ooxj=246) 92.5 fL 79.0-92.2 MEAN CORPUSCULAR HEMOGLOBIN (BEAKER) (test 30.1 pg 25.7-32.2 sgca=814) MEAN CORPUSCULAR HEMOGLOBIN CONC (BEAKER) (test 32.5 GM/DL 32.3-36.5 yysl=567) RED CELL DISTRIBUTION WIDTH (BEAKER) (test 13.5 % 11.6-14.4 xleq=953) PLATELET COUNT (BEAKER) (test pplz=937) 317 K/CU MM 150-450 MEAN PLATELET VOLUME (BEAKER) (test onnw=243) 9.4 fL 9.4-12.4 NUCLEATED RED BLOOD CELLS (BEAKER) (test 0 /100 WBC 0-0 xxwy=635) NEUTROPHILS RELATIVE PERCENT (BEAKER) (test 66 % jcvv=988) LYMPHOCYTES RELATIVE PERCENT (BEAKER) (test 21 % dduj=968) MONOCYTES RELATIVE PERCENT (BEAKER) (test 8 % evlp=779) EOSINOPHILS RELATIVE PERCENT (BEAKER) (test 3 % ntaz=454) BASOPHILS RELATIVE PERCENT (BEAKER) (test 1 % qobw=687) NEUTROPHILS ABSOLUTE COUNT (BEAKER) (test 5.50 K/ L 1.78-5.38 hffb=510) LYMPHOCYTES ABSOLUTE COUNT (BEAKER) (test 1.78 K/ L 1.32-3.57 nmjw=740) MONOCYTES ABSOLUTE COUNT (BEAKER) (test 0.63 K/ L 0.30-0.82 zjcd=201) EOSINOPHILS ABSOLUTE COUNT (BEAKER) (test 0.24 K/ L 0.04-0.54 lxip=911) BASOPHILS ABSOLUTE COUNT (BEAKER) (test 0.11 K/ L 0.01-0.08 dtov=549) IMMATURE GRANULOCYTES-RELATIVE PERCENT (BEAKER) 1 % 0-1 (test pury=8298) HEMOGLOBIN [id number] 12:52:00 Test Item Value Reference Range Comments HEMOGLOBIN A1C (BEAKER) (test nsoi=641) 7.9 % 4.3-6.1 TSH/FREE T4 IF [id number] 12:22:00 Test Item Value Reference Range Comments THYROID STIMULATING HORMONE (BEAKER) (test 2.15 uIU/mL 0.35-4.94 abqc=219) B-TYPE NATRIURETIC FACTOR (BNP)2017-09-06 11:57:00 Test Item Value Reference Range Comments B-TYPE NATRIURETIC PEPTIDE (BEAKER) (test 364 pg/mL 0-100 espj=101) URIC [id number] 11:55:00 Test Item Value Reference Range Comments URIC ACID (BEAKER) (test yrkw=341) 6.6 mg/dL 2.6-7.2 [id number] 11:55:00 Test Item Value Reference Range Comments MAGNESIUM (BEAKER) (test rjvq=437) 1.6 mg/dL 1.6-2.6 BASIC METABOLIC [id number] 11:55:00 Test Item Value Reference Range Comments SODIUM (BEAKER) (test 142 meq/L 136-145 dxeb=606) POTASSIUM (BEAKER) (test 5.4 meq/L 3.5-5.1 fyzy=340) CHLORIDE (BEAKER) (test 105 meq/L 98-107 cuwv=513) CO2 (BEAKER) (test 30 meq/L 22-29 cyih=306) BLOOD UREA NITROGEN 29 mg/dL 7-21 (BEAKER) (test mtwd=806) CREATININE (BEAKER) (test 1.70 mg/dL 0.57-1.25 xwbh=562) GLUCOSE RANDOM (BEAKER) 247 mg/dL 70-105 (test witg=730) CALCIUM (BEAKER) (test 9.3 mg/dL 8.4-10.2 slaj=106) EGFR (BEAKER) (test 40 mL/min/1.73 sq m ESTIMATED GFR IS NOT iwvo=1211) ACCURATE CREATININE CLEARANCE IN PREDICTING GLOMERULAR FILTRATION RATE. ESTIMATED GFR IS NOT APPLICABLE FOR DIALYSIS PATIENTS. LIPID [id number] 11:55:00 Test Item Value Reference Range Comments TRIGLYCERIDES (BEAKER) (test pzxc=551) 91 mg/dL CHOLESTEROL (BEAKER) (test yyqg=880) 134 mg/dL HDL CHOLESTEROL (BEAKER) (test ilnt=053) 50 mg/dL LDL CHOLESTEROL CALCULATED (BEAKER) (test 66 mg/dL ffcq=161) Triglyceride Reference Range: Low Risk <150 Borderline 150- 199 High Risk 200-499 Very High Risk >=500Cholesterol Reference Range: Low Risk <200 Borderline 200-239 High Risk > 240HDL Cholesterol Reference Range: Low Risk >=60 High Risk <40LDL Cholesterol Reference Range: Optimal <100 Near Optimal 100-129 Borderline 130-159 High 160-189 Very High >=190HEPATIC FUNCTION [id number] 11:55:00 Test Item Value Reference Range Comments TOTAL PROTEIN (BEAKER) (test ckve=397) 7.2 gm/dL 6.0-8.3 ALBUMIN (BEAKER) (test qvnc=2319) 4.0 g/dL 3.5-5.0 BILIRUBIN TOTAL (BEAKER) (test vlmw=263) < mg/dL 0.2-1.2 BILIRUBIN DIRECT (BEAKER) (test lmex=292) 0.2 mg/dL 0.1-0.5 ALKALINE PHOSPHATASE (BEAKER) (test hzim=763) 43 U/L 40-150 AST (SGOT) (BEAKER) (test lbdw=108) 21 U/L 5-34 ALT (SGPT) (BEAKER) (test rtli=747) 13 U/L 6-55 [id number] 11:51:00 Test Item Value Reference Range Comments PREALBUMIN (BEAKER) (test tcvf=117) 29 mg/dL 14-45 PROTHROMBIN [id number] 11:41:00 Test Item Value Reference Range Comments PROTIME (BEAKER) (test xndh=012) 15.4 seconds 11.7-14.7 INR (BEAKER) (test dlrp=087) 1.2 <=5.9 RECOMMENDED COUMADIN/WARFARIN INR THERAPY RANGESSTANDARD DOSE: 2.0 - 3.0 Includes: PROPHYLAXIS forvenous thrombosis, systemic embolization; TREATMENT for venous thrombosis and/or pulmonary embolus.HIGH RISK: Target INR is 2.5-3.5 for patients with mechanical heart valves.CBC W/PLT COUNT & AUTO [id number] 11:33:00 Test Item Value Reference Range Comments WHITE BLOOD CELL COUNT (BEAKER) (test dkmz=241) 7.1 K/ L 3.5-10.5 RED BLOOD CELL COUNT (BEAKER) (test irsc=708) 4.48 M/ L 4.63-6.08 HEMOGLOBIN (BEAKER) (test agnt=448) 13.2 GM/DL 13.7-17.5 HEMATOCRIT (BEAKER) (test zfmk=265) 41.4 % 40.1-51.0 MEAN CORPUSCULAR VOLUME (BEAKER) (test hriz=323) 92.4 fL 79.0-92.2 MEAN CORPUSCULAR HEMOGLOBIN (BEAKER) (test 29.5 pg 25.7-32.2 ahsn=680) MEAN CORPUSCULAR HEMOGLOBIN CONC (BEAKER) (test 31.9 GM/DL 32.3-36.5 wlpr=063) RED CELL DISTRIBUTION WIDTH (BEAKER) (test 13.6 % 11.6-14.4 ddsa=121) PLATELET COUNT (BEAKER) (test hsck=119) 247 K/CU MM 150-450 MEAN PLATELET VOLUME (BEAKER) (test jzuo=090) 9.5 fL 9.4-12.4 NUCLEATED RED BLOOD CELLS (BEAKER) (test 0 /100 WBC 0-0 shhx=014) NEUTROPHILS RELATIVE PERCENT (BEAKER) (test 65 % ikdx=669) LYMPHOCYTES RELATIVE PERCENT (BEAKER) (test 23 % yaen=484) MONOCYTES RELATIVE PERCENT (BEAKER) (test 6 % qshp=081) EOSINOPHILS RELATIVE PERCENT (BEAKER) (test 4 % fzwj=989) BASOPHILS RELATIVE PERCENT (BEAKER) (test 1 % vowh=784) NEUTROPHILS ABSOLUTE COUNT (BEAKER) (test 4.61 K/ L 1.78-5.38 nzeg=143) LYMPHOCYTES ABSOLUTE COUNT (BEAKER) (test 1.59 K/ L 1.32-3.57 wlfg=496) MONOCYTES ABSOLUTE COUNT (BEAKER) (test 0.44 K/ L 0.30-0.82 faul=689) EOSINOPHILS ABSOLUTE COUNT (BEAKER) (test 0.26 K/ L 0.04-0.54 qtlh=890) BASOPHILS ABSOLUTE COUNT (BEAKER) (test 0.10 K/ L 0.01-0.08 xdgo=912) IMMATURE GRANULOCYTES-RELATIVE PERCENT (BEAKER) 1 % 0-1 (test zgil=9059) RAD, BONE DENSITY [id number] 09:58:00Reason for exam:->heart transplant evaluation. screening for osteoporosisShould this be performedat the bedside?-& gt;NoFINAL REPORT Technique: Bone mineral density of the lumbar spine and both femoral necks performed on 08/16/2017 Clinical History : Osteopenia screening. Comparison: None Bone mineral density measurementLumbar spine1.382 gm/cb8Enee Femoral neck1.157 gm/ed6Wbexf Femoral neck1.120gm/cm2 Standard deviation from young adult population (T-score)Lumbar spine 1.3Left Femoral neck 0.7Right Femoral neck 0.4 Standard deviation for age adjusted population (Z-score)Lumbar spine1.9Left Femoral neck1.9 Right Femoral neck1.6 IMPRESSION: WHO classification of normal for the lumbar spine andboth femoral necks. Diagnostic criteria for osteoporosisBMD: Bone mineral density Normal: BMD measurement less than one standard deviation from young adult populationOsteopenia: BMD measurement between 1 and 2.5 standard deviationsOsteoporosis: BMD measurement greater than 2.5 standard deviations Signed: Phyllis Lange MDReport Verified Date/Time: 08/16/2017 09:58:30 Reading Location: [facility] Radiology Reading Room [id number] 12:15:00 Test Item Value Reference Range Comments MAGNESIUM (BEAKER) (test qyqw=110) 1.2 mg/dL 1.6-2.6 BASIC METABOLIC [id number] 12:15:00 Test Item Value Reference Range Comments SODIUM (BEAKER) (test 140 meq/L 136-145 qpix=121) POTASSIUM (BEAKER) (test 4.3 meq/L 3.5-5.1 fnvm=808) CHLORIDE (BEAKER) (test 103 meq/L 98-107 ekir=950) CO2 (BEAKER) (test 29 meq/L 22-29 xiio=366) BLOOD UREA NITROGEN 18 mg/dL 7-21 (BEAKER) (test mypg=863) CREATININE (BEAKER) (test 1.51 mg/dL 0.57-1.25 pwew=749) GLUCOSE RANDOM (BEAKER) 154 mg/dL 70-105 (test fbbj=775) CALCIUM (BEAKER) (test 9.3 mg/dL 8.4-10.2 fvte=700) EGFR (BEAKER) (test 46 mL/min/1.73 sq m ESTIMATED GFR IS NOT cnbd=1770) ACCURATE CREATININE CLEARANCE IN PREDICTING GLOMERULAR FILTRATION RATE. ESTIMATED GFR IS NOT APPLICABLE FOR DIALYSIS PATIENTS. B-TYPE NATRIURETIC FACTOR (BNP)2017-08-08 12:05:00 Test Item Value Reference Range Comments B-TYPE NATRIURETIC PEPTIDE (BEAKER) (test 729 pg/mL 0-100 uddr=470) FLOW PRA CLASS I AND [id number] 11:17:00 Test Item Value Reference Range Comments DATE OF SERUM (BEAKER) (test jdfm=3281) [id number] SERUM # (BEAKER) (test cozw=3618) [id number] FLOW PRA CLASS I AND II (test cdhl=5934) See Scanned Report HLA [id number] 07:15:00 Test Item Value Reference Range Comments HLA RESULT (BEAKER) (test kcrz=5369) See Scanned Report HLA-A AG1 (BEAKER) (test oioe=2573) HLA-A AG2 (BEAKER) (test svrj=0377) HLA-B AG1 (BEAKER) (test tnup=9299) HLA-B AG2 (BEAKER) (test rjio=2143) HLA-C AG1 (BEAKER) (test kejh=1360) HLA-C AG2 (BEAKER) (test mbmr=3822) HLA-DR AG1 (BEAKER) (test tywz=0554) HLA-DR AG2 (BEAKER) (test geyy=0744) HLA-DQ AG1 (BEAKER) (test pcih=8341) HLA-DQ AG2 (BEAKER) (test oard=1981) HLA-DRW (BEAKER) (test qbbw=3171) HERPES VIRUS ANTIBODY, [id number] 14:18:00 Test Item Value Reference Range Comments HERPES VIRUS IGM (BEAKER) (test Negative HSV 1 IGM=NEGHSV 2 IGM=NEG ovxq=1018) TOXOPLASMA GONDII ANTIBODY, [id number] 14:18:00 Test Item Value Reference Range Comments TOXOPLASMA IGM ANTIBODY (BEAKER) (test dlcp=073) Negative PROTEIN ELECTROPHORESIS, [id number] 09:23:00 Test Item Value Reference Range Comments ALBUMIN FRACTION 3.9 gm/dL 3.5-5.5 RR: 3.8-4.8 g/dL (BEAKER) (test xzoo=875) ALPHA 1 FRACTION 0.3 gm/dL 0.2-0.4 RR: 0.2-0.3 g/dL (BEAKER) (test ensa=967) ALPHA 2 FRACTION 1.0 gm/dL 0.5-0.9 (BEAKER) (test wbxa=435) BETA FRACTION 0.8 gm/dL 0.6-1.1 (BEAKER) (test niec=685) GAMMA GLOBULIN 0.7 gm/dL 0.7-1.7 RR: 0.8-1.7 g/dL FRACTION (BEAKER) (test zqcl=545) INTERPRETATION-119 Electrophoretic studies (BEAKER) (test revealed one or more jjza=7966) fractions outside the reference interval. Please interpret these results within the context of all clinical and laboratory data available. [id number] Test performed and (BEAKER) (test interpreted by [facility] wgjn=6416) [facility]. 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 [id number] Test performed and (BEAKER) (test interpreted by [facility] [employer] [facility] pqpp=7527) [facility]. POCT-GLUCOSE [id number] 17:07:00 Test Item Value Reference Range Comments POC-GLUCOSE METER (BEAKER) 283 mg/dL 70-110 TESTED AT [address] (test syir=9759) [place] [id number] POCT-GLUCOSE [id number] 12:48:00 Test Item Value Reference Range Comments POC-GLUCOSE METER (BEAKER) 148 mg/dL 70-110 TESTED AT [address] (test yzda=6285) [place] [id number] POCT-GLUCOSE [id number] 07:37:00 Test Item Value Reference Range Comments POC-GLUCOSE METER (BEAKER) 154 mg/dL 70-110 TESTED AT [address] (test bwyr=3841) [place] [address] [id number] 07:11:00 Test Item Value Reference Range Comments MAGNESIUM (BEAKER) (test inyr=071) 1.5 mg/dL 1.6-2.6 BASIC METABOLIC [id number] 07:11:00 Test Item Value Reference Range Comments SODIUM (BEAKER) (test 140 meq/L 136-145 qfyx=404) POTASSIUM (BEAKER) (test 4.0 meq/L 3.5-5.1 kdye=625) CHLORIDE (BEAKER) (test 109 meq/L 98-107 ngbe=557) CO2 (BEAKER) (test 24 meq/L 22-29 zvce=763) BLOOD UREA NITROGEN 24 mg/dL 7-21 (BEAKER) (test ysex=841) CREATININE (BEAKER) (test 1.12 mg/dL 0.57-1.25 azoh=184) GLUCOSE RANDOM (BEAKER) 147 mg/dL 70-105 (test iodn=417) CALCIUM (BEAKER) (test 8.5 mg/dL 8.4-10.2 wmkd=498) EGFR (BEAKER) (test 65 mL/min/1.73 sq m ESTIMATED GFR IS NOT eqwm=8303) ACCURATE CREATININE CLEARANCE IN PREDICTING GLOMERULAR FILTRATION RATE. ESTIMATED GFR IS NOT APPLICABLE FOR DIALYSIS PATIENTS. CBC (HEMOGRAM ONLY)2017-07-20 06:54:00 Test Item Value Reference Range Comments WHITE BLOOD CELL COUNT (BEAKER) (test xjkr=405) 7.3 K/ L 3.5-10.5 RED BLOOD CELL COUNT (BEAKER) (test hcki=049) 4.41 M/ L 4.63-6.08 HEMOGLOBIN (BEAKER) (test tysy=488) 13.2 GM/DL 13.7-17.5 HEMATOCRIT (BEAKER) (test sfhh=101) 40.5 % 40.1-51.0 MEAN CORPUSCULAR VOLUME (BEAKER) (test xyeu=308) 91.8 fL 79.0-92.2 MEAN CORPUSCULAR HEMOGLOBIN (BEAKER) (test 29.9 pg 25.7-32.2 jdnu=337) MEAN CORPUSCULAR HEMOGLOBIN CONC (BEAKER) (test 32.6 GM/DL 32.3-36.5 uyif=286) RED CELL DISTRIBUTION WIDTH (BEAKER) (test 12.4 % 11.6-14.4 gycx=461) PLATELET COUNT (BEAKER) (test qmjv=462) 186 K/CU MM 150-450 MEAN PLATELET VOLUME (BEAKER) (test vmfv=856) 10.3 fL 9.4-12.4 NUCLEATED RED BLOOD CELLS (BEAKER) (test 0 /100 WBC 0-0 fojg=564) POCT-GLUCOSE [id number] 21:29:00 Test Item Value Reference Range Comments POC-GLUCOSE METER (BEAKER) 142 mg/dL 70-110 TESTED AT [address] (test icbk=1284) [place] [address] POCT-GLUCOSE [id number] 17:29:00 Test Item Value Reference Range Comments POC-GLUCOSE METER (BEAKER) 258 mg/dL 70-110 TESTED AT [address] (test ayyy=2788) [place] [address] TOXOPLASMA GONDII ANTIBODY, [id number] 15:37:00 Test Item Value Reference Range Comments TOXOPLASMA GONDII IGG (BEAKER) (test jpqq=322) Negative POCT-GLUCOSE [id number] 11:56:00 Test Item Value Reference Range Comments POC-GLUCOSE METER (BEAKER) 190 mg/dL 70-110 TESTED AT [address] (test eoak=4903) [place] [address] CREATININE [id number] 09:09:00 Test Item Value Reference Range Comments CREATININE CLEARANCE (BEAKER) 56.5 mL/min 70.0-140.0 (test abky=691) VOLUME, TOTAL (BEAKER) (test 2500 ml ovyu=5045) CREATININE URINE (BEAKER) (test 46.2 mg/dL acnp=997) [id number] (BEAKER) Angely Santos MD (test kikj=0145) (electronic signature) POCT-GLUCOSE [id number] 07:57:00 Test Item Value Reference Range Comments POC-GLUCOSE METER (BEAKER) 165 mg/dL 70-110 TESTED AT [address] (test utoa=3764) [place] [address] CBC (HEMOGRAM ONLY)2017-07-19 07:06:00 Test Item Value Reference Range Comments WHITE BLOOD CELL COUNT (BEAKER) (test ymil=894) 6.5 K/ L 3.5-10.5 RED BLOOD CELL COUNT (BEAKER) (test mjte=077) 4.15 M/ L 4.63-6.08 HEMOGLOBIN (BEAKER) (test mrsh=415) 12.5 GM/DL 13.7-17.5 HEMATOCRIT (BEAKER) (test ykwh=478) 37.8 % 40.1-51.0 MEAN CORPUSCULAR VOLUME (BEAKER) (test ypnh=266) 91.1 fL 79.0-92.2 MEAN CORPUSCULAR HEMOGLOBIN (BEAKER) (test 30.1 pg 25.7-32.2 qavc=489) MEAN CORPUSCULAR HEMOGLOBIN CONC (BEAKER) (test 33.1 GM/DL 32.3-36.5 qoct=211) RED CELL DISTRIBUTION WIDTH (BEAKER) (test 12.5 % 11.6-14.4 aauf=565) PLATELET COUNT (BEAKER) (test znpz=821) 184 K/CU MM 150-450 MEAN PLATELET VOLUME (BEAKER) (test jsfm=998) 9.9 fL 9.4-12.4 NUCLEATED RED BLOOD CELLS (BEAKER) (test 0 /100 WBC 0-0 dxbq=126) [id number] 04:55:00 Test Item Value Reference Range Comments MAGNESIUM (BEAKER) (test ombe=256) 1.6 mg/dL 1.6-2.6 BASIC METABOLIC [id number] 04:55:00 Test Item Value Reference Range Comments SODIUM (BEAKER) (test 139 meq/L 136-145 ehay=668) POTASSIUM (BEAKER) (test 4.0 meq/L 3.5-5.1 juel=281) CHLORIDE (BEAKER) (test 105 meq/L 98-107 jzwc=998) CO2 (BEAKER) (test 27 meq/L 22-29 hzyk=200) BLOOD UREA NITROGEN 29 mg/dL 7-21 (BEAKER) (test mkre=851) CREATININE (BEAKER) (test 1.35 mg/dL 0.57-1.25 zofj=278) GLUCOSE RANDOM (BEAKER) 149 mg/dL 70-105 (test wqck=621) CALCIUM (BEAKER) (test 8.5 mg/dL 8.4-10.2 qwyu=511) EGFR (BEAKER) (test 53 mL/min/1.73 sq m ESTIMATED GFR IS NOT wykq=3110) ACCURATE CREATININE CLEARANCE IN PREDICTING GLOMERULAR FILTRATION RATE. ESTIMATED GFR IS NOT APPLICABLE FOR DIALYSIS PATIENTS. POCT-GLUCOSE [id number] 21:35:00 Test Item Value Reference Range Comments POC-GLUCOSE METER (BEAKER) 138 mg/dL 70-110 TESTED AT [facility] [address] [facility] [address] (test aqau=1113) [facility] [address] POCT-GLUCOSE [id number] 17:20:00 Test Item Value Reference Range Comments POC-GLUCOSE METER (BEAKER) 108 mg/dL 70-110 TESTED AT [address] (test sfgo=1854) [place] [id number] VARICELLA ZOSTER ANTIBODY, [id number] 15:46:00 Test Item Value Reference Range Comments VARICELLA ZOSTER IGG (AL) (BEAKER) (test qpug=2471) > Al VARICELLA ZOSTER RESULT INTERPRETATIONS: <=0.8 Al Nonreactive: Presumed non-immune to VZV 0.9-1.0 Al Equivocal >=1.1 Al Reactive: Presumed immune to VZVHERPES VIRUS ANTIBODY, [id number] 15: 45:00 Test Item Value Reference Range Comments HERPES VIRUS IGG (BEAKER) (test Negative HSV 1 IGG=NEGHSV 2 IGG=NEG tktq=3364) CYTOMEGALOVIRUS ANTIBODY, [id number] 15:45:00 Test Item Value Reference Range Comments CYTOMEGALOVIRUS IGG ANTIBODY (BEAKER) (test Positive jqkq=070) CYTOMEGALOVIRUS ANTIBODY, [id number] 15:45:00 Test Item Value Reference Range Comments CYTOMEGALOVIRUS IGM ANTIBODY (BEAKER) (test Negative hnvk=319) EBV-VCA ANTIBODY, [id number] 15:45:00 Test Item Value Reference Range Comments SARY-NGUYEN VCA IGG (BEAKER) (test otnp=337) Positive EBV-VCA ANTIBODY, [id number] 15:45:00 Test Item Value Reference Range Comments SARY-NGUYEN VCA IGM (BEAKER) (test auqz=330) Negative ANTI-NUCLEAR ANTIBODY (JOCELYNN)2017-07-18 11:50:00 Test Item Value Reference Range Comments ANTI-NUCLEAR ANTIBODY (JOCELYNN) (BEAKER) (test Negative Negative vlst=792) POCT-GLUCOSE [id number] 11:47:00 Test Item Value Reference Range Comments POC-GLUCOSE METER (BEAKER) 179 mg/dL 70-110 TESTED AT [address] (test mfsk=3081) [facility] [address] [id number] 10:39:00 Test Item Value Reference Range Comments RPR SCREEN (BEAKER) (test vqwb=536) Nonreactive Nonreactive POCT-GLUCOSE [id number] 07:35:00 Test Item Value Reference Range Comments POC-GLUCOSE METER (BEAKER) 167 mg/dL 70-110 TESTED AT [facility] [address] (test axqy=2718) [facility] [address] [id number] 07:35:00 Test Item Value Reference Range Comments PHOSPHORUS (BEAKER) (test rrzc=679) 2.9 mg/dL 2.3-4.7 [id number] 07:35:00 Test Item Value Reference Range Comments MAGNESIUM (BEAKER) (test hdai=480) 1.8 mg/dL 1.6-2.6 BASIC METABOLIC [id number] 07:35:00 Test Item Value Reference Range Comments SODIUM (BEAKER) (test 137 meq/L 136-145 fydj=898) POTASSIUM (BEAKER) (test 4.2 meq/L 3.5-5.1 pdnu=491) CHLORIDE (BEAKER) (test 101 meq/L 98-107 evhg=887) CO2 (BEAKER) (test 28 meq/L 22-29 odhi=154) BLOOD UREA NITROGEN 33 mg/dL 7-21 (BEAKER) (test lloo=464) CREATININE (BEAKER) (test 1.59 mg/dL 0.57-1.25 hbnx=301) GLUCOSE RANDOM (BEAKER) 156 mg/dL 70-105 (test ovqs=756) CALCIUM (BEAKER) (test 8.6 mg/dL 8.4-10.2 mtdo=629) EGFR (BEAKER) (test 44 mL/min/1.73 sq m ESTIMATED GFR IS NOT plho=6154) ACCURATE CREATININE CLEARANCE IN PREDICTING GLOMERULAR FILTRATION RATE. ESTIMATED GFR IS NOT APPLICABLE FOR DIALYSIS PATIENTS. PTH, [id number] 07:24:00 Test Item Value Reference Range Comments PARATHYROID HORMONE INTACT (BEAKER) (test 42.1 pg/mL 8.5-72.5 tpsk=194) B-TYPE NATRIURETIC FACTOR (BNP)2017-07-18 07:23:00 Test Item Value Reference Range Comments B-TYPE NATRIURETIC PEPTIDE (BEAKER) (test 682 pg/mL 0-100 elfi=702) CBC (HEMOGRAM ONLY)2017-07-18 07:03:00 Test Item Value Reference Range Comments WHITE BLOOD CELL COUNT (BEAKER) (test izur=602) 7.4 K/ L 3.5-10.5 RED BLOOD CELL COUNT (BEAKER) (test tzpz=960) 4.45 M/ L 4.63-6.08 HEMOGLOBIN (BEAKER) (test kzeb=750) 13.1 GM/DL 13.7-17.5 HEMATOCRIT (BEAKER) (test bcvy=216) 40.7 % 40.1-51.0 MEAN CORPUSCULAR VOLUME (BEAKER) (test chtg=133) 91.5 fL 79.0-92.2 MEAN CORPUSCULAR HEMOGLOBIN (BEAKER) (test 29.4 pg 25.7-32.2 hynf=460) MEAN CORPUSCULAR HEMOGLOBIN CONC (BEAKER) (test 32.2 GM/DL 32.3-36.5 nerg=491) RED CELL DISTRIBUTION WIDTH (BEAKER) (test 12.5 % 11.6-14.4 gzck=653) PLATELET COUNT (BEAKER) (test hfvt=305) 197 K/CU MM 150-450 MEAN PLATELET VOLUME (BEAKER) (test zafw=929) 10.2 fL 9.4-12.4 NUCLEATED RED BLOOD CELLS (BEAKER) (test 0 /100 WBC 0-0 jkzl=521) HEPATITIS B CORE ANTIBODY, [id number] 22:00:00 Test Item Value Reference Range Comments HEPATITIS B CORE TOTAL ANTIBODY (BEAKER) (test Nonreactive Nonreactive rbjf=680) HEPATITIS PANEL, [id number] 22:00:00 Test Item Value Reference Range Comments HEPATITIS A IGM ANTIBODY (BEAKER) (test Nonreactive Nonreactive jhjk=638) HEPATITIS B CORE IGM ANTIBODY (BEAKER) (test Nonreactive Nonreactive arcq=743) HEPATITIS C ANTIBODY (BEAKER) (test sdxj=999) Nonreactive Nonreactive HEPATITIS B SURFACE ANTIGEN (2) (BEAKER) (test Nonreactive Nonreactive ftxf=4474) HIV-1 ANTIGEN WITH HIV-1/2 [id number] 22:00:00 Test Item Value Reference Range Comments HIV-1 ANTIGEN WITH HIV 1\T\2 ANTIBODY (2) Nonreactive Nonreactive (BEAKER) (test vlre=3150) HEPATITIS A ANTIBODY, [id number] 22:00:00 Test Item Value Reference Range Comments HEPATITIS A IGG ANTIBODY (BEAKER) (test Nonreactive Nonreactive ghtn=6759) CREATININE, RANDOM [id number] 21:37:00 Test Item Value Reference Range Comments CREATININE URINE (BEAKER) (test qzmn=038) 150.2 mg/dL Reference Range: No NormalsPROTEIN, RANDOM [id number] 21:37:00 Test Item Value Reference Range Comments PROTEIN, URINE (BEAKER) (test griq=5716) 12 mg/dL 0-14 [id number] 21:15:00 Test Item Value Reference Range Comments PROSTATE SPECIFIC ANTIGEN (BEAKER) (test xhgs=719) 1.0 ng/mL 0.0-4.0 POCT-GLUCOSE [id number] 20:53:00 Test Item Value Reference Range Comments POC-GLUCOSE METER (BEAKER) 182 mg/dL 70-110 TESTED AT [facility] [address] [facility] [address] (test khnr=2929) [facility] [address] T4, [id number] 20:33:00 Test Item Value Reference Range Comments FREE T4 (BEAKER) (test ywaa=203) 1.27 ng/dL 0.70-1.48 [id number] 20:33:00 Test Item Value Reference Range Comments FERRITIN (BEAKER) (test tfvu=293) 75 ng/mL 5-275 VITAMIN D, [id number] 20:32:00 Test Item Value Reference Range Comments VITAMIN D 25-OH (BEAKER) (test crhg=1408) 24.7 ng/mL 6.6-49.9 Effective 06/27/2017: Reference Range ChangeNew: 6.6-49.9 ng/mL Previous: 13.0 -47.8 ng/mLRecommended Vitamin D Target Range: 30.0-40.0 ng/[id number] 20:20:00 Test Item Value Reference Range Comments TRANSFERRIN (BEAKER) (test zkhy=937) 418 mg/dL 174-382 [id number] 20:17:00 Test Item Value Reference Range Comments PREALBUMIN (BEAKER) (test zurf=765) 27 mg/dL 14-45 IRON, [id number] 20:17:00 Test Item Value Reference Range Comments IRON (BEAKER) (test pttr=642) 102 ug/dL 40-160 URIC [id number] 20:16:00 Test Item Value Reference Range Comments URIC ACID (BEAKER) (test nriy=629) 8.3 mg/dL 2.6-7.2 [id number] 20:16:00 Test Item Value Reference Range Comments PHOSPHORUS (BEAKER) (test tjvx=672) 3.5 mg/dL 2.3-4.7 HEPATIC FUNCTION [id number] 20:16:00 Test Item Value Reference Range Comments TOTAL PROTEIN (BEAKER) (test ltiz=437) 7.0 gm/dL 6.0-8.3 ALBUMIN (BEAKER) (test eevi=3071) 3.9 g/dL 3.5-5.0 BILIRUBIN TOTAL (BEAKER) (test zyaj=758) 0.5 mg/dL 0.2-1.2 BILIRUBIN DIRECT (BEAKER) (test iplq=485) 0.2 mg/dL 0.1-0.5 ALKALINE PHOSPHATASE (BEAKER) (test fefu=261) 38 U/L 40-150 AST (SGOT) (BEAKER) (test obgl=491) 25 U/L 5-34 ALT (SGPT) (BEAKER) (test gwlf=154) 17 U/L 6-55 [id number] 20:16:00 Test Item Value Reference Range Comments AMYLASE (BEAKER) (test ouhq=581) 72 U/L 25-125 [id number] 20:16:00 Test Item Value Reference Range Comments CREATININE (BEAKER) (test 1.75 mg/dL 0.57-1.25 idnp=198) EGFR (BEAKER) (test 39 mL/min/1.73 sq m ESTIMATED GFR IS NOT inmj=3816) ACCURATE CREATININE CLEARANCE IN PREDICTING GLOMERULAR FILTRATION RATE. ESTIMATED GFR IS NOT APPLICABLE FOR DIALYSIS PATIENTS. GAMMA GLUTAMYL TRANSFERASE (GGT)2017-07-17 20:16:00 Test Item Value Reference Range Comments GAMMA GLUTAMYL TRANSFERASE (BEAKER) (test dlqe=291) 13 U/L 9-64 LACTATE DEHYDROGENASE (LDH)2017-07-17 20:16:00 Test Item Value Reference Range Comments LACTATE DEHYDROGENASE (BEAKER) (test rmav=929) 222 U/L 125-220 [id number] 20:16:00 Test Item Value Reference Range Comments LIPASE (BEAKER) (test lpzu=581) 43 U/L 8-78 RETICULOCYTE [id number] 19:56:00 Test Item Value Reference Range Comments RETICULOCYTE COUNT PCT (BEAKER) (test dqvf=128) 1.6 % 0.5-1.8 CT, CHEST, WITHOUT [id number] 18:13:00FINAL REPORT CT of the Chest and Abdomen [...] gallstone or biliary dilatation is noted. Pancreas andadrenals are unremarkable. Both kidneys are normal in size. No hydronephrosis or hydroureter is noted. Hyperdense collection is seen in the bilateral renal collecting system from recent intravenous contrast study. The small and large bowel are suboptimally evaluated secondary to lack of GI and intravenous contrast. No small or large bowel dilatation seen. Appendix is not visualized. Atheroscleroticcalcification is seen in the abdominal aorta, superior mesenteric, bilateral renal, and bilateral arteries. No mass, adenopathy or ascites present. Impression: 1. Atherosclerotic calcification in the thoracic and abdominal aorta as well as branch vessels.2. Minimal scarring in the left upper lobe and subsegmental atelectasis in the right upper and lower lobe. 3. Unremarkable noncontrast enhanced CT of the abdomen. Signed: Yuliya Garrett Verified Date/Time: 18:13:06 Reading Location: [address] Body Reading Room CT, ABDOMEN, WITHOUT [id number] 18:13:00FINAL REPORT CT of the Chest and Abdomen [...] gallstone or biliary dilatation is noted. Pancreas andadrenals are unremarkable. Both kidneys are normal in size. No hydronephrosis or hydroureter is noted. Hyperdense collection is seen in the bilateral renal collecting system from recent intravenous contrast study. The small and large bowel are suboptimally evaluated secondary to lack of GI and intravenous contrast. No small or large bowel dilatation seen. Appendix is not visualized. Atheroscleroticcalcification is seen in the abdominal aorta, superior mesenteric, bilateral renal, and bilateral arteries. No mass, adenopathy or ascites present. Impression: 1. Atherosclerotic calcification in the thoracic and abdominal aorta as well as branch vessels.2. Minimal scarring in the left upper lobe and subsegmental atelectasis in the right upper and lower lobe. 3. Unremarkable noncontrast enhanced CT of the abdomen. Signed: Yuliya Garrettort Verified Date/Time: 07/17/2017 18:13:06 Reading Location: [address] Body Reading Room CT, BRAIN, WITHOUT [id number] 17:55:00FINAL REPORT CT Head without contrast CLINICAL HISTORY: Heart transplant evaluation TECHNIQUE: Contiguous axial images through the head without contrast. This exam was performed according to the departmental dose optimization program which includes automated exposure control, adjustment of the mA and/or kV according to the patient size, and/or use of an iterative reconstructiontechnique. COMPARISON: None FINDINGS: There is no CT [...] sinuses are well-aerated. IMPRESSION: Small chronic right cerebellarinfarct. Signed: Keo Elizabeth Verified Date/Time: 07/17/2017 17:55:05 Reading Location: [facility] Radiology Reading Room 05:55 PMPOCT-GLUCOSE [id number] 14:27:00 Test Item Value Reference Range Comments POC-GLUCOSE METER (BEAKER) 121 mg/dL 70-110 TESTED AT [address] (test kbwe=8675) [facility] [address] POCT-GLUCOSE [id number] 07:28:00 Test Item Value Reference Range Comments POC-GLUCOSE METER (BEAKER) 158 mg/dL 70-110 TESTED AT [address] (test lkjo=2693) [facility] [address] [id number] 04:57:00 Test Item Value Reference Range Comments MAGNESIUM (BEAKER) (test gsik=509) 1.6 mg/dL 1.6-2.6 BASIC METABOLIC [id number] 04:57:00 Test Item Value Reference Range Comments SODIUM (BEAKER) (test 138 meq/L 136-145 rdwh=623) POTASSIUM (BEAKER) (test 3.5 meq/L 3.5-5.1 nrho=451) CHLORIDE (BEAKER) (test 98 meq/L 98-107 rhdr=361) CO2 (BEAKER) (test 28 meq/L 22-29 jyyl=613) BLOOD UREA NITROGEN 34 mg/dL 7-21 (BEAKER) (test ltvg=847) CREATININE (BEAKER) (test 1.63 mg/dL 0.57-1.25 esfq=767) GLUCOSE RANDOM (BEAKER) 147 mg/dL 70-105 (test lpxx=513) CALCIUM (BEAKER) (test 8.8 mg/dL 8.4-10.2 jywm=700) EGFR (BEAKER) (test 42 mL/min/1.73 sq m ESTIMATED GFR IS NOT pkek=0405) ACCURATE CREATININE CLEARANCE IN PREDICTING GLOMERULAR FILTRATION RATE. ESTIMATED GFR IS NOT APPLICABLE FOR DIALYSIS PATIENTS. CBC (HEMOGRAM ONLY)2017-07-17 04:37:00 Test Item Value Reference Range Comments WHITE BLOOD CELL COUNT (BEAKER) (test ocdo=339) 7.5 K/ L 3.5-10.5 RED BLOOD CELL COUNT (BEAKER) (test jbpz=640) 4.62 M/ L 4.63-6.08 HEMOGLOBIN (BEAKER) (test mpkm=858) 13.6 GM/DL 13.7-17.5 HEMATOCRIT (BEAKER) (test pmfe=689) 41.4 % 40.1-51.0 MEAN CORPUSCULAR VOLUME (BEAKER) (test unps=552) 89.6 fL 79.0-92.2 MEAN CORPUSCULAR HEMOGLOBIN (BEAKER) (test 29.4 pg 25.7-32.2 mqob=364) MEAN CORPUSCULAR HEMOGLOBIN CONC (BEAKER) (test 32.9 GM/DL 32.3-36.5 xmrm=381) RED CELL DISTRIBUTION WIDTH (BEAKER) (test 12.6 % 11.6-14.4 oriu=551) PLATELET COUNT (BEAKER) (test cwhc=883) 199 K/CU MM 150-450 MEAN PLATELET VOLUME (BEAKER) (test umwi=559) 10.3 fL 9.4-12.4 NUCLEATED RED BLOOD CELLS (BEAKER) (test 0 /100 WBC 0-0 hxgv=190) POCT-GLUCOSE [id number] 21:00:00 Test Item Value Reference Range Comments POC-GLUCOSE METER (BEAKER) 160 mg/dL 70-110 TESTED AT [facility] [address] [facility] (test fgrn=0682) [facility] [address] POCT-GLUCOSE [id number] 17:10:00 Test Item Value Reference Range Comments POC-GLUCOSE METER (BEAKER) 148 mg/dL 70-110 TESTED AT [facility] [address] (test vbgh=7245) [facility] [address] POCT-GLUCOSE [id number] 12:10:00 Test Item Value Reference Range Comments POC-GLUCOSE METER (BEAKER) 246 mg/dL 70-110 TESTED AT [address] (test lipm=8107) [facility] [address] POCT-GLUCOSE [id number] 08:32:00 Test Item Value Reference Range Comments POC-GLUCOSE METER (BEAKER) 186 mg/dL 70-110 TESTED AT [address] (test jsjr=6063) [place] [address] [id number] 06:35:00 Test Item Value Reference Range Comments MAGNESIUM (BEAKER) (test bryo=900) 1.7 mg/dL 1.6-2.6 BASIC METABOLIC [id number] 06:35:00 Test Item Value Reference Range Comments SODIUM (BEAKER) (test 140 meq/L 136-145 skmc=051) POTASSIUM (BEAKER) (test 3.7 meq/L 3.5-5.1 xzou=206) CHLORIDE (BEAKER) (test 97 meq/L 98-107 gcfe=215) CO2 (BEAKER) (test 32 meq/L 22-29 drhu=830) BLOOD UREA NITROGEN 30 mg/dL 7-21 (BEAKER) (test pqab=306) CREATININE (BEAKER) (test 1.59 mg/dL 0.57-1.25 cduu=227) GLUCOSE RANDOM (BEAKER) 158 mg/dL 70-105 (test yrpo=443) CALCIUM (BEAKER) (test 9.2 mg/dL 8.4-10.2 pwmw=380) EGFR (BEAKER) (test 44 mL/min/1.73 sq m ESTIMATED GFR IS NOT apeo=7340) ACCURATE CREATININE CLEARANCE IN PREDICTING GLOMERULAR FILTRATION RATE. ESTIMATED GFR IS NOT APPLICABLE FOR DIALYSIS PATIENTS. CBC (HEMOGRAM ONLY)2017-07-16 06:22:00 Test Item Value Reference Range Comments WHITE BLOOD CELL COUNT (BEAKER) (test ybkj=462) 7.7 K/ L 3.5-10.5 RED BLOOD CELL COUNT (BEAKER) (test hpsm=811) 4.85 M/ L 4.63-6.08 HEMOGLOBIN (BEAKER) (test xmml=943) 14.6 GM/DL 13.7-17.5 HEMATOCRIT (BEAKER) (test dcgo=585) 43.5 % 40.1-51.0 MEAN CORPUSCULAR VOLUME (BEAKER) (test qdyy=852) 89.7 fL 79.0-92.2 MEAN CORPUSCULAR HEMOGLOBIN (BEAKER) (test 30.1 pg 25.7-32.2 frzs=099) MEAN CORPUSCULAR HEMOGLOBIN CONC (BEAKER) (test 33.6 GM/DL 32.3-36.5 fpis=302) RED CELL DISTRIBUTION WIDTH (BEAKER) (test 12.4 % 11.6-14.4 mqmx=895) PLATELET COUNT (BEAKER) (test hjxr=084) 193 K/CU MM 150-450 MEAN PLATELET VOLUME (BEAKER) (test rtua=076) 10.2 fL 9.4-12.4 NUCLEATED RED BLOOD CELLS (BEAKER) (test 0 /100 WBC 0-0 xyvc=320) POCT-GLUCOSE [id number] 20:53:00 Test Item Value Reference Range Comments POC-GLUCOSE METER (BEAKER) 228 mg/dL 70-110 TESTED AT [address] (test tvzz=2369) [place] [address] POCT-GLUCOSE [id number] 17:06:00 Test Item Value Reference Range Comments POC-GLUCOSE METER (BEAKER) 194 mg/dL 70-110 TESTED AT [address] (test ewjd=9078) [place] [address] POCT-GLUCOSE [id number] 13:27:00 Test Item Value Reference Range Comments POC-GLUCOSE METER (BEAKER) 272 mg/dL 70-110 TESTED AT [address] (test jbye=1854) [place] [id number] POCT-GLUCOSE [id number] 09:14:00 Test Item Value Reference Range Comments POC-GLUCOSE METER (BEAKER) 172 mg/dL 70-110 TESTED AT [address] (test ijkz=9039) [place] [address] [id number] 07:37:00 Test Item Value Reference Range Comments MAGNESIUM (BEAKER) (test kehz=965) 2.2 mg/dL 1.6-2.6 BASIC METABOLIC [id number] 07:37:00 Test Item Value Reference Range Comments SODIUM (BEAKER) (test 138 meq/L 136-145 yzkb=079) POTASSIUM (BEAKER) (test 3.5 meq/L 3.5-5.1 wtss=436) CHLORIDE (BEAKER) (test 97 meq/L 98-107 caqo=146) CO2 (BEAKER) (test 29 meq/L 22-29 ohni=572) BLOOD UREA NITROGEN 24 mg/dL 7-21 (BEAKER) (test ijwp=770) CREATININE (BEAKER) (test 1.37 mg/dL 0.57-1.25 ltfi=922) GLUCOSE RANDOM (BEAKER) 154 mg/dL 70-105 (test wxvv=273) CALCIUM (BEAKER) (test 8.9 mg/dL 8.4-10.2 oust=581) EGFR (BEAKER) (test 52 mL/min/1.73 sq m ESTIMATED GFR IS NOT fcjf=3123) ACCURATE CREATININE CLEARANCE IN PREDICTING GLOMERULAR FILTRATION RATE. ESTIMATED GFR IS NOT APPLICABLE FOR DIALYSIS PATIENTS. CBC (HEMOGRAM ONLY)2017-07-15 07:22:00 Test Item Value Reference Range Comments WHITE BLOOD CELL COUNT (BEAKER) (test thzp=921) 7.7 K/ L 3.5-10.5 RED BLOOD CELL COUNT (BEAKER) (test gtmr=826) 4.76 M/ L 4.63-6.08 HEMOGLOBIN (BEAKER) (test hzps=352) 14.3 GM/DL 13.7-17.5 HEMATOCRIT (BEAKER) (test wudy=379) 43.1 % 40.1-51.0 MEAN CORPUSCULAR VOLUME (BEAKER) (test kelb=484) 90.5 fL 79.0-92.2 MEAN CORPUSCULAR HEMOGLOBIN (BEAKER) (test 30.0 pg 25.7-32.2 wkbo=173) MEAN CORPUSCULAR HEMOGLOBIN CONC (BEAKER) (test 33.2 GM/DL 32.3-36.5 gcmr=634) RED CELL DISTRIBUTION WIDTH (BEAKER) (test 12.6 % 11.6-14.4 kswh=692) PLATELET COUNT (BEAKER) (test ksyq=755) 188 K/CU MM 150-450 MEAN PLATELET VOLUME (BEAKER) (test dqaw=475) 10.0 fL 9.4-12.4 NUCLEATED RED BLOOD CELLS (BEAKER) (test 0 /100 WBC 0-0 dbvn=655) POCT-GLUCOSE [id number] 21:21:00 Test Item Value Reference Range Comments POC-GLUCOSE METER (BEAKER) 315 mg/dL 70-110 TESTED AT [address] (test wfio=9681) [facility] [address] POCT-GLUCOSE [id number] 17:03:00 Test Item Value Reference Range Comments POC-GLUCOSE METER (BEAKER) 171 mg/dL 70-110 TESTED AT [address] (test hert=5008) [facility] [address] POCT-GLUCOSE [id number] 12:23:00 Test Item Value Reference Range Comments POC-GLUCOSE METER (BEAKER) 204 mg/dL 70-110 TESTED AT [address] (test pjhw=6928) [facility] [address] POCT-GLUCOSE [id number] 08:21:00 Test Item Value Reference Range Comments POC-GLUCOSE METER (BEAKER) 141 mg/dL 70-110 TESTED AT [address] (test kevb=0372) [facility] [address] CBC (HEMOGRAM ONLY)2017-07-14 06:15:00 Test Item Value Reference Range Comments WHITE BLOOD CELL COUNT (BEAKER) (test vilr=356) 7.4 K/ L 3.5-10.5 RED BLOOD CELL COUNT (BEAKER) (test dojv=779) 4.34 M/ L 4.63-6.08 HEMOGLOBIN (BEAKER) (test joka=621) 12.9 GM/DL 13.7-17.5 HEMATOCRIT (BEAKER) (test xlbs=076) 39.4 % 40.1-51.0 MEAN CORPUSCULAR VOLUME (BEAKER) (test aofk=033) 90.8 fL 79.0-92.2 MEAN CORPUSCULAR HEMOGLOBIN (BEAKER) (test 29.7 pg 25.7-32.2 qwqu=663) MEAN CORPUSCULAR HEMOGLOBIN CONC (BEAKER) (test 32.7 GM/DL 32.3-36.5 uksd=125) RED CELL DISTRIBUTION WIDTH (BEAKER) (test 12.8 % 11.6-14.4 fhyl=188) PLATELET COUNT (BEAKER) (test vunx=189) 183 K/CU MM 150-450 MEAN PLATELET VOLUME (BEAKER) (test ahbz=237) 10.8 fL 9.4-12.4 NUCLEATED RED BLOOD CELLS (BEAKER) (test 0 /100 WBC 0-0 wagv=641) [id number] 03:28:00 Test Item Value Reference Range Comments MAGNESIUM (BEAKER) (test qlhi=963) 1.5 mg/dL 1.6-2.6 LIPID [id number] 03:28:00 Test Item Value Reference Range Comments TRIGLYCERIDES (BEAKER) (test fngp=467) 95 mg/dL CHOLESTEROL (BEAKER) (test myxp=684) 110 mg/dL HDL CHOLESTEROL (BEAKER) (test oqhy=532) 38 mg/dL LDL CHOLESTEROL CALCULATED (BEAKER) (test 53 mg/dL qkyz=750) Triglyceride Reference Range: Low Risk <150 Borderline 150- 199 High Risk 200-499 Very High Risk >=500Cholesterol Reference Range: Low Risk <200 Borderline 200-239 High Risk > 240HDL Cholesterol Reference Range: Low Risk >=60 High Risk <40LDL Cholesterol Reference Range: Optimal <100 Near Optimal 100-129 Borderline 130-159 High 160-189 Very High >=190BASIC METABOLIC [id number] 03:28:00 Test Item Value Reference Range Comments SODIUM (BEAKER) (test 138 meq/L 136-145 wvut=447) POTASSIUM (BEAKER) (test 3.6 meq/L 3.5-5.1 oyoj=222) CHLORIDE (BEAKER) (test 101 meq/L 98-107 ftnz=509) CO2 (BEAKER) (test 28 meq/L 22-29 ekrz=399) BLOOD UREA NITROGEN 32 mg/dL 7-21 (BEAKER) (test iiwy=452) CREATININE (BEAKER) (test 1.68 mg/dL 0.57-1.25 ftmq=293) GLUCOSE RANDOM (BEAKER) 172 mg/dL 70-105 (test gebi=054) CALCIUM (BEAKER) (test 8.6 mg/dL 8.4-10.2 jqrr=617) EGFR (BEAKER) (test 41 mL/min/1.73 sq m ESTIMATED GFR IS NOT ftdc=7628) ACCURATE CREATININE CLEARANCE IN PREDICTING GLOMERULAR FILTRATION RATE. ESTIMATED GFR IS NOT APPLICABLE FOR DIALYSIS PATIENTS. [id number] 02:36:00 Test Item Value Reference Range Comments PARTIAL THROMBOPLASTIN TIME (BEAKER) (test 25.9 seconds 22.5-36.0 vezw=798) POCT-GLUCOSE [id number] 22:55:00 Test Item Value Reference Range Comments POC-GLUCOSE METER (BEAKER) 206 mg/dL 70-110 TESTED AT [address] (test gzrh=4153) [place] [address] [id number] 18:22:00 Test Item Value Reference Range Comments PARTIAL THROMBOPLASTIN TIME (BEAKER) (test 41.6 seconds 22.5-36.0 frkx=255) CREATINE KINASE (CK), TOTAL AND [id number] 12:57:00 Test Item Value Reference Range Comments CREATINE KINASE TOTAL (BEAKER) (test vedg=702) 142 U/L 29-200 CREATINE KINASE-MB (BEAKER) (test qlcz=336) 5.3 ng/mL 0.0-6.6 CREATINE KINASE-MB INDEX (BEAKER) (test hoby=582) 3.7 % CK-MB Reference Range:<6.7 Normal6.7-10.0 Borderline>10.0 AbnormalTROPONIN [id number] 12:55:00 Test Item Value Reference Range Comments TROPONIN I (BEAKER) (test aybz=090) 0.11 ng/mL 0.00-0.03 Troponin I (TnI) levels must be interpreted [...] failure, acidosis, acute neurological disease, and persistent tachyarrhythmia.POCT-GLUCOSE [id number] 11:57:00 Test Item Value Reference Range Comments POC-GLUCOSE METER (BEAKER) 105 mg/dL 70-110 TESTED AT [address] (test djkd=6399) [place] [address] HEMOGLOBIN [id number] 10:45:00 Test Item Value Reference Range Comments HEMOGLOBIN A1C (BEAKER) (test chsi=817) 7.1 % 4.3-6.1 TSH/FREE T4 IF [id number] 09:41:00 Test Item Value Reference Range Comments THYROID STIMULATING HORMONE (BEAKER) (test 1.16 uIU/mL 0.35-4.94 atxj=126) U/S, RENAL, [id number] 09:15:00Reason for exam:->AKIFINAL REPORT Ultrasound of the Kidneys, 07/13/2017. Clinical History : Acutekidney injury. Discussion:Sonographic evaluation of the kidneys is performed. Right kidney: 10.2 cmin length, normal in size, with cortical thickness of 1.3 cm. Normal cortical echogenicity. No mass. No shadowing calculus. No hydronephrosis. Left kidney: 9.5 cm in length, normal in size, with cortical thickness of 1.5 cm. Normal cortical echogenicity. No mass. No shadowing calculus. No hydronephrosis. Limited Doppler evaluation demonstrates normal color Doppler flow within bilateral renal terry. Fluid: No perinephric fluid. Bladder: Unremarkable. IMPRESSION:Unremarkable ultrasound of the bilateral kidneys. Signed: Andrés Trejo Verified Date/Time: 2016 09:15:34 Reading Location: [address] Ultrasound Reading Room [id number] 08:56:00 Test Item Value Reference Range Comments PARTIAL THROMBOPLASTIN TIME (BEAKER) (test 27.7 seconds 22.5-36.0 whuc=311) Prior to initiating heparinPLATELET [id number] 08:51:00 Test Item Value Reference Range Comments PLATELET COUNT (BEAKER) (test nkud=295) 183 K/CU MM 150-450 URINALYSIS W/ [id number] 08:45:00 Test Item Value Reference Range Comments COLOR (BEAKER) (test ihwr=887) Light Yellow CLARITY (BEAKER) (test uciw=898) Clear SPECIFIC GRAVITY UA (BEAKER) (test jloa=872) 1.007 1.001-1.035 PH UA (BEAKER) (test ivpz=616) 5.0 5.0-8.0 PROTEIN UA (BEAKER) (test ursv=520) Negative Negative GLUCOSE UA (BEAKER) (test dpsn=731) 300 mg/dL Negative KETONES UA (BEAKER) (test dqwi=820) Negative Negative BILIRUBIN UA (BEAKER) (test pthm=532) Negative Negative BLOOD UA (BEAKER) (test orja=154) Negative Negative NITRITE UA (BEAKER) (test cwcn=212) Negative Negative LEUKOCYTE ESTERASE UA (BEAKER) (test gnco=199) Negative Negative UROBILINOGEN UA (BEAKER) (test vwpq=950) 0.2 mg/dL 0.2-1.0 RBC UA (BEAKER) (test zwyi=089) 1 /HPF WBC UA (BEAKER) (test kwwl=676) 4 /HPF MUCUS (BEAKER) (test they=4709) Rare SQUAMOUS EPITHELIAL (BEAKER) (test nugf=522) 1 /HPF SOURCE(BEAKER) (test inzi=6096) POCT-GLUCOSE [id number] 07:58:00 Test Item Value Reference Range Comments POC-GLUCOSE METER (BEAKER) 186 mg/dL 70-110 TESTED AT [facility] [address] [facility] (test jvof=7004) [facility] [address] RAPID DRUG SCREEN, [id number] 07:31:00 Test Item Value Reference Range Comments BARBITURATE URINE (BEAKER) (test bhoo=339) Negative Negative BENZODIAZEPINE SCREEN URINE (BEAKER) (test Negative Negative mpwl=471) COCAINE (METAB.) SCREEN (BEAKER) (test lsbc=4938) Negative Negative METHADONE SCREEN (BEAKER) (test pgju=2630) Negative Negative OPIATE SCREEN URINE (BEAKER) (test gzxo=436) Negative Negative CANNABINOID SCREEN URINE (BEAKER) (test njln=706) Negative Negative AMPH/METHAMPH SCREEN (BEAKER) (test qpqk=4459) Negative Negative PHENCYCLIDINE SCREEN URINE (BEAKER) (test oubb=923) Negative Negative OXYCODONE SCREEN URINE (BEAKER) (test ouql=0301) Negative Negative DRUG CUTOFF CONC.Cocaine 300 ng/mL Cannabinoid 50 ng/mL Benzodiazepine 200 ng/mLBarbiturate 200 ng/ mLPhencyclidine 25 ng/mLOpiate 300 ng/mLMethadone 300 ng/mLAmphetamine/ 1000 ng/mL MethamphetamineOxycodone 300 ng/mLThis assay provides an unconfirmed qualitative test result for the clinical management of patients in emergency situations. Chain of custody not maintained. Some xjvq-saa-ztzzvxb medications, as well as adulterants, may cause inaccurate results. Clinical correlation should be applied. A more comprehensive drug screen or confirmation of a detected drug may be performed upon request.CREATININE, RANDOM [id number] 07:25:00 Test Item Value Reference Range Comments CREATININE URINE (BEAKER) (test smpa=531) 39.7 mg/dL Reference Range: No NormalsSODIUM, RANDOM [id number] 07:25:00 Test Item Value Reference Range Comments SODIUM URINE (BEAKER) (test tcdh=498) 95 meq/L Reference Range: No NormalsCREATINE KINASE (CK), TOTAL AND [id number] 07:05:00 Test Item Value Reference Range Comments CREATINE KINASE TOTAL (BEAKER) (test hgft=701) 101 U/L 29-200 CREATINE KINASE-MB (BEAKER) (test girh=349) 3.8 ng/mL 0.0-6.6 CREATINE KINASE-MB INDEX (BEAKER) (test ejqc=522) 3.8 % CK-MB Reference Range:<6.7 Normal6.7-10.0 Borderline>10.0 AbnormalTROPONIN [id number] 07:05:00 Test Item Value Reference Range Comments TROPONIN I (BEAKER) (test ylnz=613) 0.10 ng/mL 0.00-0.03 Troponin I (TnI) levels must be interpreted [...] failure, acidosis, acute neurological disease, and persistent tachyarrhythmia.RAD, CHEST, 1 VIEW, NON [id number] 01:09:00Reason for exam:->SHORTNESS OF BREATHShould this be performed at the bedside?->YesFINAL REPORT EXAMINATION: AP PORTABLE CHEST RADIOGRAPH CLINICAL INDICATION:Intubated IMPRESSION: Compared with 2016 Patient is status post cardiothoracic surgery and [...] available for dictation secondary to technical issues (EPIC downtime). Signed: Whitney Mock [facility] Verified Date/Time: 07/13 01:09:11 Reading Location: [address] Reading Room CREATINE KINASE (CK), TOTAL AND [id number] 00:42:00 Test Item Value Reference Range Comments CREATINE KINASE TOTAL (BEAKER) (test aswq=778) 66 U/L 29-200 CREATINE KINASE-MB (BEAKER) (test kiwm=711) 2.1 ng/mL 0.0-6.6 CREATINE KINASE-MB INDEX (BEAKER) (test apwx=482) 3.2 % CK-MB Reference Range:<6.7 Normal6.7-10.0 Borderline>10.0 AbnormalTROPONIN [id number] 00:42:00 Test Item Value Reference Range Comments TROPONIN I (BEAKER) (test ofsk=140) 0.05 ng/mL 0.00-0.03 Troponin I (TnI) levels must be interpreted [...] failure, acidosis, acute neurological disease, and persistent tachyarrhythmia.BASIC METABOLIC [id number] 00:40:00 Test Item Value Reference Range Comments SODIUM (BEAKER) (test 141 meq/L 136-145 abpf=478) POTASSIUM (BEAKER) (test 5.8 meq/L 3.5-5.1 cgzs=450) CHLORIDE (BEAKER) (test 107 meq/L 98-107 jogb=464) CO2 (BEAKER) (test 21 meq/L 22-29 wdza=805) BLOOD UREA NITROGEN 23 mg/dL 7-21 (BEAKER) (test hxca=313) CREATININE (BEAKER) (test 1.79 mg/dL 0.57-1.25 fhqy=953) GLUCOSE RANDOM (BEAKER) 270 mg/dL 70-105 (test wcad=817) CALCIUM (BEAKER) (test 9.9 mg/dL 8.4-10.2 owhw=517) EGFR (BEAKER) (test 38 mL/min/1.73 sq m ESTIMATED GFR IS NOT tchf=8404) ACCURATE CREATININE CLEARANCE IN PREDICTING GLOMERULAR FILTRATION RATE. ESTIMATED GFR IS NOT APPLICABLE FOR DIALYSIS PATIENTS. B-TYPE NATRIURETIC FACTOR (BNP)2017-07-13 00:39:00 Test Item Value Reference Range Comments B-TYPE NATRIURETIC PEPTIDE (BEAKER) (test 890 pg/mL 0-100 occn=240) CBC W/PLT COUNT & AUTO [id number] 00:16:00 Test Item Value Reference Range Comments WHITE BLOOD CELL COUNT (BEAKER) (test eiue=602) 22.0 K/ L 3.5-10.5 RED BLOOD CELL COUNT (BEAKER) (test puht=069) 4.88 M/ L 4.63-6.08 HEMOGLOBIN (BEAKER) (test tycl=621) 14.8 GM/DL 13.7-17.5 HEMATOCRIT (BEAKER) (test lmiw=514) 46.4 % 40.1-51.0 MEAN CORPUSCULAR VOLUME (BEAKER) (test hnnn=998) 95.1 fL 79.0-92.2 MEAN CORPUSCULAR HEMOGLOBIN (BEAKER) (test 30.3 pg 25.7-32.2 jshq=089) MEAN CORPUSCULAR HEMOGLOBIN CONC (BEAKER) (test 31.9 GM/DL 32.3-36.5 omgt=548) RED CELL DISTRIBUTION WIDTH (BEAKER) (test 12.9 % 11.6-14.4 htin=623) PLATELET COUNT (BEAKER) (test irnv=916) 277 K/CU MM 150-450 MEAN PLATELET VOLUME (BEAKER) (test cqpa=483) 10.6 fL 9.4-12.4 NUCLEATED RED BLOOD CELLS (BEAKER) (test 0 /100 WBC 0-0 srtu=446) NEUTROPHILS RELATIVE PERCENT (BEAKER) (test 85 % whgj=185) LYMPHOCYTES RELATIVE PERCENT (BEAKER) (test 8 % rsam=810) MONOCYTES RELATIVE PERCENT (BEAKER) (test 4 % trnb=319) EOSINOPHILS RELATIVE PERCENT (BEAKER) (test 1 % aueg=507) BASOPHILS RELATIVE PERCENT (BEAKER) (test 1 % kfhj=327) NEUTROPHILS ABSOLUTE COUNT (BEAKER) (test 18.77 K/ L 1.78-5.38 tupr=027) LYMPHOCYTES ABSOLUTE COUNT (BEAKER) (test 1.76 K/ L 1.32-3.57 dfuc=988) MONOCYTES ABSOLUTE COUNT (BEAKER) (test 0.80 K/ L 0.30-0.82 ehyt=602) EOSINOPHILS ABSOLUTE COUNT (BEAKER) (test 0.28 K/ L 0.04-0.54 jhmc=426) BASOPHILS ABSOLUTE COUNT (BEAKER) (test 0.15 K/ L 0.01-0.08 foba=261) IMMATURE GRANULOCYTES-RELATIVE PERCENT (BEAKER) 0 % 0-1 (test uley=2885)
[2018-03-26] MEDS ORDERED: CEFAZOLIN/SWI 1gm 1 GM/10 ML SYR ONE (11:05)
[2018-03-26] MEDS ORDERED: NA CHLORIDE 0.9% 1,000 ML ONE (11:10)
[2018-03-26] MEDS ORDERED: MIDAZOLAM HCL 2 MG/2 ML INJ ONE (12:05)
[2018-03-26] MEDS ORDERED: FENTANYL CITR 100 MCG/2 ML ONE (12:06)
[2018-03-26] MEDS ORDERED: BACITRACIN OINTMENT 15 GM TUBE TOP ONE (12:24)
[2018-03-26] MEDS ORDERED: LIDOCAINE 1% MPF 5 ML VIAL ONE (12:25)
[2018-03-26] MEDS ORDERED: ETOMIDATE 20 MG/10 ML VIAL IV ONE (12:25)
[2018-03-26] MEDS ORDERED: ONDANSETRON 4 MG/2 ML VIAL ONE (12:59)
[2018-03-27 07:08] VITALS: TEMP 97.2
[2018-03-27 07:09] VITALS: BP 132/79; O2SAT 98
== END 2018-03-26 14:20 | disposition home or self-care (01) ==
LOC: OR 10:26
PROVIDERS: ATTEND Urology
PROC: 0VJ80ZZ Inspection of Scrotum and Tunica Vaginalis, Open Approach (ICD-10-PCS; 2018-03-26)
PROC: 0VB5XZZ Excision of Scrotum, External Approach (ICD-10-PCS; principal; 2018-03-26 12:00)
DX: N49.9 Inflammatory disorder of unspecified male genital organ (principal); N49.2 Inflammatory disorders of scrotum
CPT/HCPCS: 36415; 55150; 71046; 80048; 81003; 82962 ×2; 84132; 85025; 85610; 85730; 87086; 87088; 88304; 88312; 93005; J0690; J2250; J2405; J3010; J7030

== ENCOUNTER 2021-10-17 10:54 | Emergency (ER) | payer OTHER ==
--- OUTSIDE RECORDS SUMMARY | 2021-10-17 10:58 | XMS REPORT | Continuity of Care Document ---
:1950 Author Organization [facility] t Address [address] [place] [address] Care Team Providers Name Role Phone Logan COLEMAN Primary Care Physician Asif Guzman Attending Clinician Unavailable JOSSELINE Attending Clinician Unavailable SHANEL Attending Clinician Unavailable ANGELICA Attending Clinician Unavailable FABIOLA Attending Clinician Unavailable Murray Corrales MD Attending Clinician MD MARY Attending Clinician Unavailable SUZETTE Attending Clinician Unavailable Esme MANJARREZ Attending Clinician Unavailable JOSSELINE Attending Clinician Unavailable CONSTANTINO Attending Clinician Unavailable LISBETH Attending Clinician Unavailable JAZMYNE GUILLAUME Attending Clinician Unavailable WHITNEY AGUILAR Attending Clinician Unavailable TAMAR Attending Clinician Unavailable Serge LINARES Attending Clinician Unavailable JUNITO TARIQ Attending Clinician Unavailable MARY Admitting Clinician Unavailable Murray Corrales MD Admitting Clinician MD MARY Admitting Clinician Unavailable LISBETH Admitting Clinician Unavailable ANGELICA Admitting Clinician Unavailable VANESSA NEAL Admitting Clinician Unavailable Payers Payer Name Policy Type Policy Number Effective Date Expiration Date S marla [employer] MEDICARE PPO [id number] 2016 00:00:00 Problems Condition Condition Condition Status Onset Resolution Last Treating Co mments Source Name Details Category Date Date Treatment Clinician Date Chronic Chronic Disease Active [facility] left left 6-18 Health shoulder shoulder 00:00: pain pain 00 Status Status Disease Active UT post post 618 Health subacromia subacromia 00:00: l l 00 decompress decompress ion ion Status Status Disease Active UT post right post right 519 He alth rotator rotator 00:00: cuff cuff 00 repair repair Cardiac Cardiac Disease Active UT defibrilla defibrilla 3-03 He alth tor in tor in 00:00: place place 00 Left Left Disease Active [facility] shoulder shoulder 1-21 Health pain pain 00:00: 00 Left Left Problem Active [facility] shoulder shoulder ity of pain pain [place] [facility] ans Traumatic Traumatic Problem Active Uni vers rotator rotator ity of cuff tear, [place] left, left, Physici initial initial ans encounter encounter Calcific Calcific Problem Active Unive rs tendinitis tendinitis it y of of left of left [place] shoulder shoulder Physic i ans Cardiac Cardiac Problem Active [facility] defibrilla defibrilla it y of tor in tor in [place] place place Physici ans Strain of Strain of Problem Active Uni vers left left ity of biceps, biceps, [place] initial initial Physici encounter encounter ans Subacromia Subacromia Problem Active U nivers l l ity of [place]ing[place]ing[place] t of left t of left Phys ici shoulder shoulder ans Allergies, Adverse Reactions, Alerts Allergy Allergy Status Severity Reaction(s) Onset Inactive Treating Comm ents Source Name Type Date Date Clinician Meperidi Drug Active UT ne Hcl Allergy 02-02 Health 00:00: 00 Meperidi Propensi Active UT ne ty to 01-16 Health adverse 00:00: reaction 00 s Lisinopr Propensi Active UT il ty to 01-16 Health adverse 00:00: reaction 00 s Rivaroxa Allergy Active UT ban to 01-16 Health substanc 00:00: e 00 MEPERIDI Allergy Active 2016-[address] [facility] [address] [facility] LISINOPR Allergy Active 2016-[address] [place] 0-[facility] RIVAROXA Allergy Active 2016-[address] [facility] [facility] 0-26 [facility] - [facility]: Medical 00 [place] Demerol Allergy Active [facility] SOLN to drug ity of (finding [place] ) Physici ans lisinopr Allergy Active [facility] il to drug ity of (finding [place] ) Physici ans Xarelto Allergy Active [facility] TABS to drug ity of (finding [place] ) Physici ans Social History Social Habit Start Date Stop Date Quantity Comments Source Exposure to SARS-CoV-2 Not sure [facility] (event) Sex Assigned At [birth year] [place] [facility] 00:00:00 00:00:00 Smoking Status Start Date Stop Date Source Tobacco smoking consumption unknown [facility] Medications Ordered Filled Start Stop Current Ordering Indication Dosage Frequency Signature Comments Components Source Medication Medication Date Date Medication? Clinician (SIG) Name Name semaglutide 2020-0 Yes Inject UT (Ozempic, 1 5-19 under the Hea lth MG/DOSE,) 2 17:39: skin. MG/1.5ML 40 solution pen-injecto r semaglutide 2020-0 Yes Inject UT (Ozempic, 1 5-19 under the Hea lth MG/DOSE,) 2 17:39: skin. MG/1.5ML 40 solution pen-injecto r semaglutide 2020-0 Yes Inject UT (Ozempic, 1 5-19 under the Hea lth MG/DOSE,) 2 17:39: skin. MG/1.5ML 40 solution pen-injecto r insulin 2020-0 Yes Inject UT degludec 5-19 under the Health (Tresiba) 17:39: skin. 100 UNIT/ML 39 injection linaGLIPtin 2020-0 Yes 1{tbl} QD Take 1 UT -metFORMIN 5-19 tablet by Heal th HCl 17:39: mouth 1 2.5-1000 MG 39 (one) time tablet each day. nitroglycer 2020-[address] 0.4 U T in 5-19 mg under Health (Nitrostat) 17:39: the tongue 0.4 MG SL 39 every 5 tablet (five) minutes if needed. insulin 2020-0 Yes Inject UT degludec 5-19 under the Health (Tresiba) 17:39: skin. 100 UNIT/ML 39 injection linaGLIPtin 2020-0 Yes 1{tbl} QD Take 1 UT -metFORMIN 5-19 tablet by Heal th HCl 17:39: mouth 1 2.5-1000 MG 39 (one) time tablet each day. nitroglycer 2021-[address] 0.4 U T in 5-19 mg under Health (Nitrostat) 17:39: the tongue 0.4 MG SL 39 every 5 tablet (five) minutes if needed. insulin 2021-0 Yes Inject UT degludec 5-19 under the Health (Tresiba) 17:39: skin. 100 UNIT/ML 39 injection linaGLIPtin 2021-0 Yes 1{tbl} QD Take 1 UT -metFORMIN 5-19 tablet by Heal th HCl 17:39: mouth 1 2.5-1000 MG 39 (one) time tablet each day. nitroglycer 2021-[address] 0.4 U T in 5-19 mg under Health (Nitrostat) 17:39: the tongue 0.4 MG SL 39 every 5 tablet (five) minutes if needed. glimepiride 2021-0 Yes 2mg QD Take 2 mg U T (Amaryl) 2 5-19 by mouth 1 Hea lth MG tablet 17:39: (one) time 38 each day. glimepiride 2021-0 Yes 2mg QD Take 2 mg U T (Amaryl) 2 5-19 by mouth 1 Hea lth MG tablet 17:39: (one) time 38 each day. glimepiride 2021-0 Yes 2mg QD Take 2 mg U T (Amaryl) 2 5-19 by mouth 1 Hea lth MG tablet 17:39: (one) time 38 each day. semaglutide 202-0 Yes Inject UT (Ozempic, 1 5-19 under the Hea lth MG/DOSE,) 2 12:39: skin. MG/1.5ML 40 solution pen-injecto r insulin 1-0 Yes Inject UT degludec 5-19 under the Health (Tresiba) 12:39: skin. 100 UNIT/ML 39 injection linaGLIPtin 2021-0 Yes 1{tbl} QD Take 1 UT -metFORMIN 5-19 tablet by Heal HCl 12:39: mouth 1 2.5-1000 MG 39 (one) time tablet each day. nitroglycer 2021-[address] 0.4 U T in 5-19 mg under Health (Nitrostat) 12:39: the tongue 0.4 MG SL 39 every 5 tablet (five) minutes if needed. glimepiride Yes 2mg QD Take 2 mg U T (Amaryl) 2 5-19 by mouth 1 Hea lth MG tablet 12:39: (one) time 38 each day. Entresto Yes UT 97-103 MG 5-18 Health tablet 00:00: 00 Entresto Yes UT 97-103 MG 5-18 Health tablet 00:00: 00 Entresto Yes UT 97-103 MG 5-18 Health tablet 00:00: 00 Entresto Yes UT 97-103 MG 5-18 Health tablet 00:00: 00 Tresiba Yes INJECT 70 UT FlexTouch 5-12 UNITS IN Health 200 UNIT/ML 00:00: MORNING injection 00 AND INCREASE BY 2 UNITS EVERY 3 DAYS UNTIL FASTING SUGAR LESS THAN 120 Tresiba Yes INJECT 70 UT FlexTouch 5-12 UNITS IN Health 200 UNIT/ML 00:00: MORNING injection 00 AND INCREASE BY 2 UNITS EVERY 3 DAYS UNTIL FASTING SUGAR LESS THAN 120 Tresiba Yes INJECT 70 UT FlexTouch 5-12 UNITS IN Health 200 UNIT/ML 00:00: MORNING injection 00 AND INCREASE BY 2 UNITS EVERY 3 DAYS UNTIL FASTING SUGAR LESS THAN 120 Tresiba Yes INJECT 70 UT FlexTouch 5-12 UNITS IN Health 200 UNIT/ML 00:00: MORNING injection 00 AND INCREASE BY 2 UNITS EVERY 3 DAYS UNTIL FASTING SUGAR LESS THAN 120 HYDROcodone Yes 1-2 PO Q 6 UT -acetaminop 5-06 HRS PRN Healt h hen ([place]) 00:00: PAIN 5-325 MG 00 tablet HYDROcodone 2020-0 Yes 1-2 PO Q 6 UT -acetaminop 5-06 HRS PRN Healt h hen ([place]) 00:00: PAIN 5-325 MG 00 tablet HYDROcodone 2020-0 Yes 1-2 PO Q 6 UT -acetaminop 5-06 HRS PRN Healt h hen ([place]) 00:00: PAIN 5-325 MG 00 tablet HYDROcodone 2020-0 Yes 1-2 PO Q 6 UT -acetaminop 5-06 HRS PRN Healt h hen ([place]) 00:00: PAIN 5-325 MG 00 tablet HYDROcodone HYDROcodone Yes SALVADOR 1-2 PO Q 6 Univers -Acetaminop -Acetaminop 5-06 MANJARREZ M.D. HRS PRN ity of hen 5-325 hen 5-325 00:00: PAIN Nate as MG Oral MG Oral 00 Physici Tablet Tablet ans Eliquis 5 2020-0 Yes 5mg Q.5D Take 5 mg UT MG tablet 5-05 by mouth 2 Heal th 00:00: (two) 00 times a day. Eliquis 5 2020-0 Yes 5mg Q.5D Take 5 mg UT MG tablet 5-05 by mouth 2 Heal 00:00: (two) 00 times a day. Eliquis 5 2020-0 Yes 5mg Q.5D Take 5 mg UT MG tablet 5-05 by mouth 2 Heal 00:00: (two) 00 times a day. Eliquis 5 2020-0 Yes 5mg Q.5D Take 5 mg UT MG tablet 5-05 by mouth 2 Heal 00:00: (two) 00 times a day. Trulicity 0 Yes .75mg Inject UT 0.75 5-03 0.75 mg Health MG/0.5ML 00:00: under the solution 00 skin 1 pen-injecto (one) time r per week. Trulicity 2020-0 Yes .75mg Inject UT 0.75 5-03 0.75 mg Health MG/0.5ML 00:00: under the solution 00 skin 1 pen-injecto (one) time r per week. Trulicity 2020-0 Yes .75mg Inject UT 0.75 5-03 0.75 mg Health MG/0.5ML 00:00: under the solution 00 skin 1 pen-injecto (one) time r per week. Trulicity 2020-0 Yes .75mg Inject UT 0.75 5-03 0.75 mg Health MG/0.5ML 00:00: under the solution 00 skin 1 pen-injecto (one) time r per week. tiZANidine 0 Yes 2mg QD Take 2 mg UT (Zanaflex) 4-28 by mouth Healt h 2 MG 00:00: at night capsule 00 if needed. tiZANidine 2020-0 Yes 2mg QD Take 2 mg UT (Zanaflex) 4-28 by mouth Healt h 2 MG 00:00: at night capsule 00 if needed. tiZANidine Yes 2mg QD Take 2 mg UT (Zanaflex) 4-28 by mouth Healt h 2 MG 00:00: at night capsule 00 if needed. tiZANidine Yes 2mg QD Take 2 mg UT (Zanaflex) 4-28 by mouth Healt h 2 MG 00:00: at night capsule 00 if needed. rosuvastati Yes TAKE 1 UT n (Crestor) 4-23 TABLET BY Hea lth 40 MG 00:00: MOUTH tablet 00 EVERY DAY AT NIGHT rosuvastati Yes TAKE 1 UT n (Crestor) 4-23 TABLET BY Hea lth 40 MG 00:00: MOUTH tablet 00 EVERY DAY AT NIGHT rosuvastati Yes TAKE 1 UT n (Crestor) 4-23 TABLET BY Hea lth 40 MG 00:00: MOUTH tablet 00 EVERY DAY AT NIGHT rosuvastati Yes TAKE 1 UT n (Crestor) 4-23 TABLET BY Hea lth 40 MG 00:00: MOUTH tablet 00 EVERY DAY AT NIGHT digoxin Yes 125ug QD Take 125 UT (Lanoxin) 4-07 mcg by Health 125 MCG 00:00: mouth 1 tablet 00 (one) time each day. digoxin Yes 125ug QD Take 125 UT (Lanoxin) 4-07 mcg by Health 125 MCG 00:00: mouth 1 tablet 00 (one) time each day. digoxin Yes 125ug QD Take 125 UT (Lanoxin) 4-07 mcg by Health 125 MCG 00:00: mouth 1 tablet 00 (one) time each day. digoxin Yes 125ug QD Take 125 UT (Lanoxin) 4-07 mcg by Health 125 MCG 00:00: mouth 1 tablet 00 (one) time each day. NovoFine Yes UT Plus 32G X 3-03 DIRECTED Healt h 4 MM misc 00:00: ONCE DAILY 00 NovoFine 2020-0 Yes UT Plus 32G X 3-03 DIRECTED Healt h 4 MM misc 00:00: ONCE DAILY 00 NovoFine 2021-0 Yes UT Plus 32G X 3-03 DIRECTED Healt h 4 MM misc 00:00: ONCE DAILY 00 NovoFine 2020-0 Yes UT Plus 32G X 3-03 DIRECTED Healt h 4 MM misc 00:00: ONCE DAILY 00 Ozempic, 1 2019-09 Yes INJECT UT MG/DOSE, 2 2-21 SUBCUTANEO Hea lth MG/1.5ML 00:00: USLY ONCE solution 00 A WEEK pen-injecto DIRECTED r Ozempic, 1 2019-09 Yes INJECT UT MG/DOSE, 2 2-21 SUBCUTANEO Hea lth MG/1.5ML 00:00: USLY ONCE solution 00 A WEEK pen-injecto DIRECTED r Ozempic, 1 2019-09 Yes INJECT UT MG/DOSE, 2 2-21 SUBCUTANEO Hea lth MG/1.5ML 00:00: USLY ONCE solution 00 A WEEK pen-injecto DIRECTED r Ozempic, 1 2019-09 Yes INJECT UT MG/DOSE, 2 2-21 SUBCUTANEO Hea lth MG/1.5ML 00:00: USLY ONCE solution 00 A WEEK pen-injecto DIRECTED r fenofibrate 2019-09 Yes 145mg QD Take 145 U T (Tricor) 2-04 mg by Health 145 MG 00:00: mouth 1 tablet 00 (one) time each day. fenofibrate 2019-09 Yes 145mg QD Take 145 U T (Tricor) 2-04 mg by Health 145 MG 00:00: mouth 1 tablet 00 (one) time each day. fenofibrate 2019-09 Yes 145mg QD Take 145 U T (Tricor) 2-04 mg by Health 145 MG 00:00: mouth 1 tablet 00 (one) time each day. fenofibrate 2019-09 Yes 145mg QD Take 145 U T (Tricor) 2-04 mg by Health 145 MG 00:00: mouth 1 tablet 00 (one) time each day. amiodarone 2019-09 Yes 200mg QD Take 200 UT (Pacerone) 0-08 mg by Health 200 MG 00:00: mouth 1 tablet 00 (one) time each day. amiodarone 2019-09 Yes 200mg QD Take 200 UT (Pacerone) 0-08 mg by Health 200 MG 00:00: mouth 1 tablet 00 (one) time each day. amiodarone 2020- Yes 200mg QD Take 200 UT (Pacerone) 0-08 mg by Health 200 MG 00:00: mouth 1 tablet 00 (one) time each day. amiodarone 2020- Yes 200mg QD Take 200 UT (Pacerone) 0-08 mg by Health 200 MG 00:00: mouth 1 tablet 00 (one) time each day. bumetanide 2019- Yes TAKE 1 UT (Bumex) 1 0-03 TABLET BY Healt h MG tablet 00:00: MOUTH 3 00 TIMES A WEEK ( SUN,SUN AND SUNDAY) bumetanide 2019- Yes TAKE 1 UT (Bumex) 1 0-03 TABLET BY Healt h MG tablet 00:00: MOUTH 3 00 TIMES A WEEK ( SUN,SUN AND SUNDAY) bumetanide 2019- Yes TAKE 1 UT (Bumex) 1 0-03 TABLET BY Healt h MG tablet 00:00: MOUTH 3 00 TIMES A WEEK ( SUN,SUN AND SUNDAY) bumetanide 2019- Yes TAKE 1 UT (Bumex) 1 0-03 TABLET BY Healt h MG tablet 00:00: MOUTH 3 00 TIMES A WEEK ( SUN,SUN AND SUNDAY) metoclopram 2019-0 Yes TAKE 3 UT jassi 9-03 TABLETS BY [employer] (Reglan) 10 00:00: MOUTH MG tablet 00 DIRECTED USE DIRECTED PER YOUR COLONOSCOP Y PREP PACKET metoclopram Yes TAKE 3 UT jassi 9-03 TABLETS BY [employer] (Reglan) 10 00:00: MOUTH MG tablet 00 DIRECTED USE DIRECTED PER YOUR COLONOSCOP Y PREP PACKET metoclopram 2019- Yes TAKE 3 UT jassi 9-03 TABLETS BY Health (Reglan) 10 00:00: MOUTH MG tablet 00 DIRECTED USE DIRECTED PER YOUR COLONOSCOP Y PREP PACKET metoclopram 0 Yes TAKE 3 UT jassi 9-03 TABLETS BY [employer] (Reglan) 10 00:00: MOUTH MG tablet 00 DIRECTED USE DIRECTED PER YOUR COLONOSCOP Y PREP PACKET Ozempic Ozempic 2019- No [facility] as [facility] [place] [facility] Clin[facility] Treadventhealth Tresiba 2019-0 2019- No Leizabeth [address] FlexTouch FlexTouch 4-12 04-10 [place] in am and [facility] - 00:00: 00:00 increase [facility] 00 :00 by 2 units l every 3 Outpati days until ent fasting Clinics glucose less 120 max 70 units daily magnesium 2018-0 Yes 400mg Q.5D Take 400 UT oxide 3-28 mg by Health (Mag-Ox) 00:00: mouth 400 MG 00 twice a tablet day. magnesium 2018-0 Yes 400mg Q.5D Take 400 UT oxide 3-28 mg by Health (Mag-Ox) 00:00: mouth 400 MG 00 twice a tablet day. magnesium 2018-0 Yes 400mg Q.5D Take 400 UT oxide 3-28 mg by Health (Mag-Ox) 00:00: mouth 400 MG 00 twice a tablet day. magnesium 2018-0 Yes 400mg Q.5D Take 400 UT oxide 3-28 mg by Health (Mag-Ox) 00:00: mouth 400 MG 00 twice a tablet day. Digoxin Digoxin 2017-0 Yes Elizabeth [address] [facility] [place] [facility] Amiodarone Amiodarone 2017-0 Yes Elizabeth [address] HCl HCl 2-20 [place] [facility] Bumetanide Bumetanide 2017-0 Yes Elizabeth as [facility] [place] [facility] sacubitril- 2016-09 Yes Comments: U T valsartan 2-21 | Filled Health ([employer]) 00:00: Date: Jan 08 MG 2017 tablet 12:00AM | Patient Notes: TAKE 1 TABLET BY MOUTH 2 (TWO) TIMES DAILY. Duration: 30 aspirin 81 2016-09 Yes 81mg QD Take 81 mg U T MG EC 2-21 by mouth 1 Health tablet 00:00: (one) time 00 each day. sacubitril- 2016-09 Yes Comments: U T valsartan 2-21 | Filled Health ([employer]) 00:00: Date: Jan 08 MG 2017 tablet 12:00AM | Patient Notes: TAKE 1 TABLET BY MOUTH 2 (TWO) TIMES DAILY. Duration: 30 aspirin 81 2016-09 Yes 81mg QD Take 81 mg U T MG EC 2-21 by mouth 1 Health tablet 00:00: (one) time 00 each day. sacubitril- 2016-09 Yes Comments: U T valsartan 2-21 | Filled Health (Entresto) 00:00: Date: Jan 08 MG 2017 tablet 12:00AM | Patient Notes: TAKE 1 TABLET BY MOUTH 2 (TWO) TIMES DAILY. Duration: 30 aspirin 2016-09 Yes 81mg QD Take 81 mg U T MG EC 2-21 by mouth 1 Health tablet 00:00: (one) time 00 each day. sacubitril- 2016-09 Yes Comments: U T valsartan 2-21 | Filled Health (Entresto) 00:00: Date: Jan 08 MG 2017 tablet 12:00AM | Patient Notes: TAKE 1 TABLET BY MOUTH 2 (TWO) TIMES DAILY. Duration: 30 aspirin 2016-09 Yes 81mg QD Take 81 mg U T MG EC 2-21 by mouth 1 Health tablet 00:00: (one) time 00 each day. Carvedilol Carvedilol Yes Elizabeth as [facility] [place] [facility] Crestor Crestor Yes Elizabeth [address] [place] [facility] Nitroglycer Nitroglycer Yes Elizabeth not [facility] [place] defined [facility] Tricor Tricor Yes Elizabeth [address] [place] with food [facility] Albuterol Albuterol Yes Elizabeth 3 ml as [facility] Sulfate Sulfate [place] needed [facility] Eliquis Eliquis Yes Elizabeth [address] [facility] [place] [facility] Entresto Entresto Yes Elizabeth one [facility] 97/103mg 97/103mg [place] [facility] Glimepiride Glimepiride Yes Elizabeth TAKE [address] [facility] [place] TABLET AT [facility] Lancets Lancets Yes Elizabeth one [facility] Super Thin Super Thin [place] [facility] Glucometer Glucometer Yes Elizabeth one [facility] [place] [facility] Aspir-81 Aspir-81 Yes Elizabeth [address] [place] k[facility] - [facility] ent Clinics NovoFine NovoFine Yes Elizabeth as [facility] Plus Plus [place] directed [facility] Immunizations Ordered Filled Immunization Date Status Comments [facility] e Immunization Name Name Covid-19 Moderna 2020-12-04 Completed [facility] SARS-CoV-2 00:00:00 Vaccination Covid-19 Moderna 2020-12-04 Completed [facility] SARS-CoV-2 00:00:00 Vaccination Covid-19 Moderna 2020-12-04 Completed [facility] SARS-CoV-2 00:00:00 Vaccination Covid-19 Moderna 2020-12-04 Completed [facility] SARS-CoV-2 00:00:00 Vaccination Covid-19 Moderna 2020-10-26 Completed [facility] SARS-CoV-2 00:00:00 Vaccination Covid-19 Moderna 2020-10-26 Completed [facility] SARS-CoV-2 00:00:00 Vaccination Covid-19 Moderna 2020-10-26 Completed [facility] SARS-CoV-2 00:00:00 Vaccination Covid-19 Moderna 2020-10-26 Completed [facility] SARS-CoV-2 00:00:00 Vaccination Covid-19 Moderna 2020-09-29 Completed [facility] SARS-CoV-2 00:00:00 Vaccination Covid-19 Moderna 2020-09-29 Completed [facility] SARS-CoV-2 00:00:00 Vaccination Covid-19 Moderna 2020-09-29 Completed [facility] SARS-CoV-2 00:00:00 Vaccination Covid-19 Moderna 2020-09-29 Completed [facility] SARS-CoV-2 00:00:00 Vaccination FluAD FluAD 2019-06-[address] [facility] Influenza, 2018-05-24 [facility] injectable, MDCK, 00:00:00 preservative free, quadrivalent Influenza, 2018-05-24 [facility] injectable, MDCK, 00:00:00 preservative free, quadrivalent Influenza, 2018-05-24 [facility]pleted [facility] injectable, MDCK, 00:00:00 preservative free, quadrivalent Influenza, 2018-05-24 Completed [facility] injectable, MDCK, 00:00:00 preservative free, quadrivalent Influenza, 2017-07-05 Completed [facility] seasonal, 00:00:00 injectable, preservative free Influenza, 2017-07-05 Completed [facility] seasonal, 00:00:00 injectable, preservative free Influenza, 2017-07-05 Completed [facility] seasonal, 00:00:00 injectable, preservative free Influenza, 2017-07-05 Completed [facility] seasonal, 00:00:00 injectable, preservative free Vital Signs Vital Name Observation Time Observation Value Comments Source Systolic blood 2020-10-07 10:03:00 119 mm[Hg] [facility] pressure Physicians Diastolic blood 2020-10-07 10:03:00 63 mm[Hg] [facility] pressure Physicians Heart Rate 2020-10-07 10:03:00 95 /min [facility] Physicians Procedures Procedure Date / Time Performed Performing Clinician Sour e [UTP] Ortho - Surgery 2020-12-30 00:00:00 [facility] Scheduling Physicians [MMD] XRAY Chest 2 2020-11-17 00:00:00 [facility] Views Physicians XRAY Chest 2 views 2020-11-17 00:00:00 [facility] [id number] Physicians MR Shoulder wo 2020-10-07 00:00:00 [facility] contrast [id number] Physicians Plan of Care Planned Activity Planned Date Details Comments Source Diagnostic Test 2020-12-30 [UTP] Ortho - [facility] Pending 00:00:00 Surgery Scheduling Physician s [code = [UTP] Ortho - Surgery Scheduling] Diagnostic Test 2020-10-07 MR Shoulder wo [facility] Pending 00:00:00 contrast [id number] [code Physici ans = [id number]] Diagnostic Test 2020-10-07 MR Shoulder wo [facility] Pending 00:00:00 contrast [id number] [code Physici ans = [id number]] Encounters Start End Encounter Admission Attending Care Care Encounter Source Date/Time Date/Time Type Type Clinicians Facility Department ID 2021-10-12 Outpatient Guzman, Paula STLMLC STLMLC [id number] 14:23:13 [id number] [facility] 2021-10-12 Outpatient Guzman, Na STLMLC STLMLC [id number] 13:26:20 [id number] [facility] 2021-10-12 Outpatient Guzman, Na STLMLC STLMLC [id number] [facility] 13:26:05 [id number] [facility] 2021-10-12 Outpatient Guzman, Na STLMLC STLMLC [id number] 12:49:48 [id number] [facility] 2021-10-12 Outpatient Guzman, Na STLMLC STLMLC [id number] [facility] 12:43:40 [id number] [facility] 2021-10-12 Outpatient Guzman, Na STLMLC STLMLC [id number] 12:18:20 [id number] [facility] 2021-10-12 Outpatient Guzman, Na STLMLC STLMLC [id number] 11:46:50 [id number] [facility] 2021-10-12 Outpatient Guzman, Na STLMLC STLMLC [id number] [facility] 11:29:53 [id number] [facility] 2021-10-12 Outpatient Guzman, Na STLMLC STLMLC [id number] 11:29:29 [id number] [facility] 2021-10-12 Outpatient Guzman, Na STLMLC STLMLC [id number] 11:27:56 [id number] [facility] 2021-05-11 Preadmit nullFlavo [facility] [id number] Al moria 14:32:37 r asif Steward 2021-03-04 Outpatient UVALDE, [facility] [id number] [place] 09[facility]15:15 [facility] 2021-02-20 Outpatient UVALDE, [facility] [id number] [place] 01:03:31 [facility] 2021-02-02 Outpatient TY, [facility] [id number] [place] 13:56:34 [facility] 2021-02-02 Outpatient UTH [facility] [id number] [place] 13:55:48 Health 2021-01-26 Outpatient [facility] [id number] [place] 10:48:01 Health 2021-01-22 Outpatient JOSSELINE, [facility] [id number] [place] 04:11:18 [facility] 2021-10-13 2021-10-13 Outpatient ANGELICA, [facility] [id number] [place] 00:00:00 00:00:00 IMAD [address] 2021-10-13 2021-10-13 Outpatient ANGELICA, [facility] [id number] [place] 00:00:00 00:00:00 IMAD [address] 2021-10-13 2021-10-13 Outpatient ANGELICA, [facility] [id number] [place] 00:00:00 00:00:00 IMAD [address] 2021-09-21 2021-09-21 Outpatient ANGELICA [facility] [id number] [place] 00:00:00 00:00:00 IMAD [address] 2021-08-30 2021-08-30 ambulatory [facility]LMLC [facility] [id number] [facility] 2021-08-30 2021-08-30 ambulatory [facility]LMLC [facility] [id number] [facility] 00:[facility] 2021-06-06 2021-06-06 Outpatient [facility]LMLC [facility] [id number] [facility] 00[facility]00 [facility]00[facility]00 [facility] 2021-05-11 2021-05-11 Outpatient ANGELICA, [facility] [id number] [place] 00:00:00 00:00:00 IMAD [address] 2021-05-03 2021-05-03 Outpatient [facility]LMLC [facility] [id number] [facility] 00:00:00 00:00:00 [facility] 2021-04-13 2021-04-13 Outpatient ANGELICA, [facility] [id number] [place] 00:00:00 00:00:00 IMAD [address] 2021-04-13 2021-04-13 Outpatient ANGELICA, [facility] [id number] [place] 00:00:00 00:00:00 IMAD [address] 2021-04-02 2021-04-02 Outpatient [facility] [id number] [facility] 2021-03-29 2021-03-29 Outpatient [facility] [id number] [facility] 00:00:00 00:00:00 [facility] 2021-03-24 2021-03-24 Outpatient [facility] [id number] [place] 00:00:00 00:00:[address] 2021-03-24 2021-03-24 Outpatient [facility] [id number] [facility] 2021-03-24 2021-03-24 Outpatient [facility] [id number] [facility] 00:00:00 00:00:00 [facility] 2021-03-16 2021-03-21 Inpatient LESIAGenna, [facility] [id number] [place] 00:00:00 00:00:00 ASMA [address] 2021-03-17 2021-03-17 [facility] Antoni, EXT MSRDP [id number] [place] 00:00:00 00:00:00 [place] [facility] [id number] [facility] [id number] [id number] 2021-03-04 2021-03-04 Office Ty, [facility] [id number] [place] 13:35:44 14:05:44 Visit Nicholette SUGAR [id number] [facility] [id number] [id number] 1 2021-03-04 2021-03-04 Office Ty, [facility] [id number] 13:35:44 14:05:44 Visit Nicholette SUGAR [id number] [place] [id number] [id number] 1 2021-03-02 2021-03-02 Outpatient ANGELICA, [facility] [id number] [place] 00:00:00 00:00:00 IMAD [address] 2021-02-02 2021-02-02 Office Manjarrez, [facility] [id number] [place] 13:52:06 14:20:28 Visit Salvador SUGAR [id number] He alth [place]AND 9.2.7.2.686 [id number] 1 2021-02-02 2021-02-02 Office Manjarrez, [facility] [id number] 13:52:06 14:20:28 Visit Salvador SUGAR [id number] [place] [id number] [id number] 1 2021-01-31 2021-01-31 Outpatient SUZETTE, [facility] [id number] [place] 00:00:00 00:00:00 SERA [address] 2021-01-20 2021-01-20 Outpatient JOSSELINE, [facility] 7501 [facility] 12:07:00 17:40:00 SALVADOR 2021-01-20 2021-01-20 [facility] [id number] [facility] 13:00:00 13:00:00 t; SALVADOR MANJARREZ, - Odette pineda of Pa[facility] FRANCO [address] [facility] 2021-01-14 2021-01-14 Outpatient [facility] [id number] [facility] 2021-01-13 2021-01-13 Outpatient [facility] [id number] [facility] 2021-01-03 2021-01-03 Outpatient [facility] [id number] [facility] 2020-12-30 2020-12-30 [facility] [id number] [facility] 09:30:00 09:30:00 t; SALVADOR MANJARREZ, - [place] [facility] of [place] FRANCO 1 [facility] 2020-12-21 2020-12-21 Outpatient [facility] [id number] [facility] 2020-12-21 2020-12-21 Outpatient MANJARREZ, [facility] [id number] [place] 00:00:00 00:00:00 SALVADOR [address] 2020-12-21 2020-12-21 Outpatient CONSTANTINO, [facility] [id number] [place] 00:00:00 00:00:00 NADIM [address] 2020-12-21 2020-12-21 Outpatient MANJARREZ, [facility] [id number] [place] 00:00:00 00:00:00 SALVADOR [address] 2020-12-21 2020-12-21 Outpatient CONSTANTINO, [facility] [id number] [place] 00:00:00 00:00:00 NADIM [address] 2020-10-07 2020-10-07 [facility], [facility] Orthopedics [id number] [facility] 09:30:00 09:30:00 t; SALVADOR MANJARREZ, - [place] [facility] [facility] [place] [facility] 1 [facility] 2020-09-23 2020-09-23 Outpatient [facility] [id number] [facility] St 00:00:00 00:00:00 [facility] Outpati ent Clinics 2020-08-04 2020-08-04 Outpatient ANGELICA, [facility] [id number] [place] 00:00:00 00:00:00 IMAD [address] 2020-06-03 2020-06-03 [facility] [id number] 09:00:00 09:00:00 t Specialty/U Edith kes - Specialty rology [facility] a /Urology Clinic l Clinic Outpati ent Clinics 2020-05-06 2020-05-06 Outpatient [facility] [id number] [place] 00:00:00 00:00:00 JW [address] 2020-04-28 2020-04-28 Outpatient ANGELICA, [facility] [id number] [place] 00:00:00 00:00:00 IMAD 297 Method i 2020-03-31 2020-03-31 Outpatient ANGELICA, [facility] [id number] [place] 00:00:00 00:00:00 IMAD 115 Method i 2020-03-31 2020-03-31 Outpatient ANGELICA, [facility] [id number] [place] 00:00:00 00:00:00 IMAD 016 Method i 2020-03-23 2020-03-23 [facility] [id number] 08:20:00 08:20:00 t [employer] [facility] 2020-03-17 2020-03-17 Outpatient ANGELICA, [facility] [id number] [place] 00:00:00 00:00:00 IMAD 613 Method i 2020-03-17 2020-03-17 Outpatient ANGELICA, [facility] [id number] [place] 00:00:00 00:00:00 IMAD 586 Method i 2020-03-08 2020-03-08 [facility] [id number] [facility] [address] 10:55:00 10:55:00 t [employer] [facility] ent [facility] 2020-02-20 2020-02-20 Outpatient ANGELICA, [facility] [id number] [place] 00:00:00 00:00:00 IMAD 705 Method i 2020-02-19 2020-02-19 Outpatient ANGELICA, [facility] [id number] [place] 00:00:00 00:00:00 IMAD 578 Method i 2020-01-30 2020-01-30 Outpatient SUZETTE, [facility] [id number] [place] 00:00:00 00:00:00 SERA 769 Method i 2020-01-28 2020-01-29 Outpatient ANGELICA, [facility] [id number] [place] 00:00:00 00:00:00 IMAD 937 Method i 2019-12-03 2019-12-03 [facility] [id number] 11:15:00 11:15:00 t [employer] [facility] Medicine Medicine Outpati ent Clinics 2019-06-12 2019-06-12 [facility] [id number] 15:20:00 15:20:00 t [place] [employer] s - Drive [facility] Medicine Outpati ent Clinics 2018-12-27 2018-12-27 [facility] [id number] 13:00:00 13:00:00 t [place] [employer] - Drive [facility] Medicine Outpati ent Clinics 2018-12-17 2018-12-17 [facility] [id number] 11:09:00 11:09:00 t [place] [employer] s - Drive [facility] Medicine Outpati ent Clinics 2018-12-01 2018-12-01 [facility] [id number] 21:22:00 21:22:00 t [place] [employer] - Drive [facility] Medicine Outpati ent Clinics 2018-10-28 2018-10-28 [facility] [id number] 15:53:00 15:53:00 t [place] [employer] - [facility] Medicine Medicine Outpati ent Clinics 2018-09-26 2018-09-26 [facility] [id number] 10:45:00 10:45:00 t [place] [employer] - Drive [facility] Medicine Outpati ent Clinics 2018-08-05 2018-08-05 [facility] [id number] 08:30:00 08:30:00 t [place] [employer] - Drive [facility] Medicine Medicine Outpati ent Clinics 2018-05-06 2018-05-06 [facility] [id number] 09:15:00 09:15:00 t [employer] s - Drive [facility] Medicine Outpati ent Clinics Results Test Description Test Time Test Comments Results Result Comments Source SARS-CoV-2 (COVID-19) RNA [Presence] in Respiratory sp ecimen by 2021-03-17 02:14:28 SUMANTH with probe detection Test Item Value Reference Range Interpretation Comme nts SARS-CoV-2 (COVID-19) RNA [Presence] in Respiratory Not detected No t-Detected specimen by SMUANTH with probe detection (test code = 24994-6) Whether patient is employed in a healthcare setting (test code = 64152-1) Whether the patient has symptoms related to condition of interest (test code = 35428-8) Patient was hospitalized because of this condition (test code = 31623-9) Whether the patient was admitted to intensive care unit (ICU) for condition of interest (test code = 55381-7) Whether patient resides in a congregate care setting (test code = 76346-5) IMMUNOFIXATION ELECTROPHORESIS (ANAND)2018-03-22 09:59:00 Test Item Value Reference Range Interpretation Comments IMMUNOGLOBULIN G (IGG) 944 mg/dL 540-1822 (BEAKER) (test code = 427) IMMUNOGLOBULIN A (IGA) 137 mg/dL 63-484 (BEAKER) (test code = 639) IMMUNOGLOBULIN M (IGM) 41 mg/dL 22-293 (BEAKER) (test code = 638) SERUM ANAND ID (BEAKER) No monoclonal (test code = 1814) proteins detected. Polyclonal distribution of immunoglobulins. [id number] Angely Santos, ([facility]) (test code = (electronic 1357) signature) PROTEIN ELECTROPHORESIS, [id number] 16:21:00 Test Item Value Reference Range Interpretation Comments ALBUMIN FRACTION 3.3 g/dL 3.5-5.5 L (BEAKER) (test code = 405) ALPHA 1 FRACTION 0.3 g/dL 0.2-0.4 (BEAKER) (test code = 389) ALPHA 2 FRACTION 1.0 g/dL 0.5-0.9 H (BEAKER) (test code = 390) BETA FRACTION 1.0 g/dL 0.6-1.1 (BEAKER) (test code = 392) GAMMA GLOBULIN 0.8 g/dL 0.7-1.7 FRACTION (BEAKER) (test code = 391) INTERPRETATION-119 All fractions present in (BEAKER) (test code = expected distribution. 2615) No monoclonal bands detected. No significant change from previous study performed 12-13-17. [id number] Angely Santos MD ([facility] (test code = (electronic signature) 3124) PROTEIN TOTAL SERUM, 6.4 gm/dL 6.0-8.3 SPEP (BEAKER) (test code = 2660) TSH/FREE T4 IF [id number] 09:28:00 Test Item Value Reference Range Interpretation Comments THYROID STIMULATING HORMONE 3.29 uIU/mL 0.35-4.94 (BEAKER) (test code = 772) B-TYPE NATRIURETIC FACTOR (BNP)2018-03-15 09:11:00 Test Item Value Reference Range Interpretation Comments B-TYPE NATRIURETIC PEPTIDE (BEAKER) 641 pg/mL 0-100 H (test code = 700) LIPID [id number] 09:05:00 Test Item Value Reference Range Interpretation Comments TRIGLYCERIDES (BEAKER) (test code = 117 mg/dL 540) CHOLESTEROL (BEAKER) (test code = 136 mg/dL 631) HDL CHOLESTEROL (BEAKER) (test code 41 mg/dL = 976) LDL CHOLESTEROL CALCULATED (BEAKER) 72 mg/dL (test code = 633) Triglyceride Reference Range: Low Risk <150 Borderline 150-199 High Risk 200-499 Very High Risk >=500Cholesterol Reference Range: Low Risk <200 Borderline 200-239 High Risk >240HDL Cholesterol Reference Range: Low Risk >=60 High Risk <40LDL Cholesterol Reference Range: Optimal <100 Near Optimal 100-129 Borderline 130-159 High 160-189 Very High >=190BASIC METABOLIC [id number] 09:05:00 Test Item Value Reference Range Interpretation Comments SODIUM (BEAKER) 137 meq/L 136-145 (test code = 381) POTASSIUM (BEAKER) 4.7 meq/L 3.5-5.1 (test code = 379) CHLORIDE (BEAKER) 104 meq/L 98-107 (test code = 382) CO2 (BEAKER) (test 29 meq/L 22-29 code = 355) BLOOD UREA NITROGEN 21 mg/dL 7-21 (BEAKER) (test code = 354) CREATININE (BEAKER) 1.37 mg/dL 0.57-1.25 H (test code = 358) GLUCOSE RANDOM 209 mg/dL 70-105 H (BEAKER) (test code = 652) CALCIUM (BEAKER) 8.8 mg/dL 8.4-10.2 (test code = 697) EGFR (BEAKER) (test 52 mL/min/1.73 ESTIMA XIAO GFR IS code = 1092) sq m NOT ACCURATE CREATININE CLEARANCE IN PREDICTING GLOMERULAR FILTRATION RATE . ESTIMATED GFR I S NOT APPLICABLE FOR DIALYSIS PATIEN TS. HEPATIC FUNCTION [id number] 09:05:00 Test Item Value Reference Range Interpretation Comments TOTAL PROTEIN (BEAKER) (test code = 6.8 gm/dL 6.0-8.3 770) ALBUMIN (BEAKER) (test code = 1145) 3.8 g/dL 3.5-5.0 BILIRUBIN TOTAL (BEAKER) (test code 0.3 mg/dL 0.2-1.2 = 377) BILIRUBIN DIRECT (BEAKER) (test 0.2 mg/dL 0.1-0.5 code = 706) ALKALINE PHOSPHATASE (BEAKER) (test 37 U/L 40-150 L code = 346) AST (SGOT) (BEAKER) (test code = 24 U/L 5-34 353) ALT (SGPT) (BEAKER) (test code = 19 U/L 6-55 347) CBC W/PLT COUNT & AUTO [id number] 09:02:00 Test Item Value Reference Range Interpretation Comments WHITE BLOOD CELL COUNT (BEAKER) 6.0 K/ L 3.5-10.5 (test code = 775) RED BLOOD CELL COUNT (BEAKER) 3.96 M/ L 4.63-6.08 L (test code = 761) HEMOGLOBIN (BEAKER) (test code = 11.2 GM/DL 13.7-17.5 L 410) HEMATOCRIT (BEAKER) (test code = 36.8 % 40.1-51.0 L 411) MEAN CORPUSCULAR VOLUME (BEAKER) 92.9 fL 79.0-92.2 H (test code = 753) MEAN CORPUSCULAR HEMOGLOBIN 28.3 pg 25.7-32.2 (BEAKER) (test code = 751) MEAN CORPUSCULAR HEMOGLOBIN CONC 30.4 GM/DL 32.3-36.5 L (BEAKER) (test code = 752) RED CELL DISTRIBUTION WIDTH 12.8 % 11.6-14.4 (BEAKER) (test code = 412) PLATELET COUNT (BEAKER) (test 274 K/CU MM 150-450 code = 756) MEAN PLATELET VOLUME (BEAKER) 9.8 fL 9.4-12.4 (test code = 754) NUCLEATED RED BLOOD CELLS 0 /100 WBC 0-0 (BEAKER) (test code = 413) NEUTROPHILS RELATIVE PERCENT 66 % (BEAKER) (test code = 429) LYMPHOCYTES RELATIVE PERCENT 16 % (BEAKER) (test code = 430) MONOCYTES RELATIVE PERCENT 8 % (BEAKER) (test code = 431) EOSINOPHILS RELATIVE PERCENT 7 % (BEAKER) (test code = 432) BASOPHILS RELATIVE PERCENT 2 % (BEAKER) (test code = 437) NEUTROPHILS ABSOLUTE COUNT 3.91 K/ L 1.78-5.38 (BEAKER) (test code = 670) LYMPHOCYTES ABSOLUTE COUNT 0.98 K/ L 1.32-3.57 L (BEAKER) (test code = 414) MONOCYTES ABSOLUTE COUNT (BEAKER) 0.47 K/ L 0.30-0.82 (test code = 415) EOSINOPHILS ABSOLUTE COUNT 0.41 K/ L 0.04-0.54 (BEAKER) (test code = 416) BASOPHILS ABSOLUTE COUNT (BEAKER) 0.11 K/ L 0.01-0.08 H (test code = 417) IMMATURE GRANULOCYTES-RELATIVE 2 % 0-1 H PERCENT (BEAKER) (test code = 2801) HEMOGLOBIN [id number] 12:30:00 Test Item Value Reference Range Interpretation Comments HEMOGLOBIN A1C (BEAKER) (test code = 6.3 % 4.3-6.1 H 368) ALKALINE [id number] 10:37:00 Test Item Value Reference Range Interpretation Comments ALKALINE PHOSPHATASE (BEAKER) (test 43 U/L 40-150 code = 346) [id number] 10:37:00 Test Item Value Reference Range Interpretation Comments POTASSIUM (BEAKER) (test code = 5.6 meq/L 3.5-5.1 H 379) [id number] 10:37:00 Test Item Value Reference Range Interpretation Comments MAGNESIUM (BEAKER) (test code = 1.9 mg/dL 1.6-2.6 627) [id number] 10:37:00 Test Item Value Reference Range Interpretation Comments SODIUM (BEAKER) (test code = 381) 137 meq/L 136-145 AST (SGOT)2017-12-21 10:37:00 Test Item Value Reference Range Interpretation Comments AST (SGOT) (BEAKER) (test code = 353) 24 U/L 5-34 ALT (SGPT)2017-12-21 10:37:00 Test Item Value Reference Range Interpretation Comments ALT (SGPT) (BEAKER) (test code = 347) 23 U/L 6-55 BILIRUBIN, ADULT [id number] 10:37:00 Test Item Value Reference Range Interpretation Comments BILIRUBIN TOTAL (BEAKER) (test code 0.3 mg/dL 0.2-1.2 = 377) BILIRUBIN, [id number] 10:37:00 Test Item Value Reference Range Interpretation Comments BILIRUBIN DIRECT (BEAKER) (test 0.2 mg/dL 0.1-0.5 code = 706) [id number] 10:37:00 Test Item Value Reference Range Interpretation Comments CHLORIDE (BEAKER) (test code = 382) 102 meq/L 98-107 CREATINE KINASE (CK)2017-12-21 10:37:00 Test Item Value Reference Range Interpretation Comments CREATINE KINASE TOTAL (BEAKER) (test 166 U/L 29-200 code = 380) LACTATE DEHYDROGENASE (LDH)2017-12-21 10:37:00 Test Item Value Reference Range Interpretation Comments LACTATE DEHYDROGENASE (BEAKER) (test 223 U/L 125-220 H code = 635) BUN AND [id number] 10:37:00 Test Item Value Reference Range Interpretation Comments BLOOD UREA NITROGEN 37 mg/dL 7-21 H (BEAKER) (test code = 354) CREATININE (BEAKER) 2.13 mg/dL 0.57-1.25 H (test code = 358) EGFR (BEAKER) (test 31 mL/min/1.73 ESTIMA XIAO GFR IS code = 1092) sq m NOT ACCURATE CREATININE CLEARANCE IN PREDICTING GLOMERULAR FILTRATION RATE . ESTIMATED GFR I S NOT APPLICABLE FOR DIALYSIS PATIEN TS. B-TYPE NATRIURETIC FACTOR (BNP)2017-12-21 10:36:00 Test Item Value Reference Range Interpretation Comments B-TYPE NATRIURETIC PEPTIDE (BEAKER) 308 pg/mL 0-100 H (test code = 700) IMMUNOFIXATION ELECTROPHORESIS (ANAND)2017-12-19 16:43:00 Test Item Value Reference Range Interpretation Comments IMMUNOGLOBULIN G (IGG) 914 mg/dL 540-1822 (BEAKER) (test code = 427) IMMUNOGLOBULIN A (IGA) 122 mg/dL 63-484 (BEAKER) (test code = 639) IMMUNOGLOBULIN M (IGM) 35 mg/dL 22-293 (BEAKER) (test code = 638) SERUM ANAND ID (BEAKER) No monoclonal (test code = 1814) proteins detected. Polyclonal distribution of immunoglobulins. [id number] Angely Santos, ([facility]) (test code = (electronic 7731) signature) PROTEIN ELECTROPHORESIS, [id number] 15:31:00 Test Item Value Reference Range Interpretation Comments ALBUMIN FRACTION 3.7 g/dL 3.5-5.5 (BEAKER) (test code = 405) ALPHA 1 FRACTION 0.2 g/dL 0.2-0.4 (BEAKER) (test code = 389) ALPHA 2 FRACTION 0.8 g/dL 0.5-0.9 (BEAKER) (test code = 390) BETA FRACTION (BEAKER) 0.9 g/dL 0.6-1.1 (test code = 392) GAMMA GLOBULIN 0.7 g/dL 0.7-1.7 FRACTION (BEAKER) (test code = 391) INTERPRETATION-119 All fractions present (AKER) (test code = in expected 261) distribution. No monoclonal bands detected. [id number] Angely Santos MD ([facility]) (test code = (electronic signature) 2672) PROTEIN TOTAL SERUM, 6.4 gm/dL 6.0-8.3 SPEP (BEAKER) (test code = 4420) [id number] 15:30:00 Test Item Value Reference Range Interpretation Comments POTASSIUM (BEAKER) (test code = 5.4 meq/L 3.5-5.1 H 379) TSH/FREE T4 IF [id number] 12:17:00 Test Item Value Reference Range Interpretation Comments THYROID STIMULATING HORMONE 3.18 uIU/mL 0.35-4.94 (BEAKER) (test code = 772) BASIC METABOLIC [id number] 12:02:00 Test Item Value Reference Range Interpretation Comments SODIUM (BEAKER) 138 meq/L 136-145 (test code = 381) POTASSIUM (BEAKER) 6.2 meq/L 3.5-5.1 HH (test code = 379) CHLORIDE (BEAKER) 104 meq/L 98-107 (test code = 382) CO2 (BEAKER) (test 26 meq/L 22-29 code = 355) BLOOD UREA NITROGEN 31 mg/dL 7-21 H (BEAKER) (test code = 354) CREATININE (BEAKER) 2.09 mg/dL 0.57-1.25 H (test code = 358) GLUCOSE RANDOM 126 mg/dL 70-105 H (BEAKER) (test code = 652) CALCIUM (BEAKER) 9.8 mg/dL 8.4-10.2 (test code = 697) EGFR (BEAKER) (test 32 mL/min/1.73 ESTIMA XIAO GFR IS code = 1092) sq m NOT ACCURATE CREATININE CLEARANCE IN PREDICTING GLOMERULAR FILTRATION RATE . ESTIMATED GFR I S NOT APPLICABLE FOR DIALYSIS PATIEN TS. B-TYPE NATRIURETIC FACTOR (BNP)2017-12-13 12:00:00 Test Item Value Reference Range Interpretation Comments B-TYPE NATRIURETIC PEPTIDE (BEAKER) 387 pg/mL 0-100 H (test code = 700) CBC W/PLT COUNT & AUTO [id number] 11:36:00 Test Item Value Reference Range Interpretation Comments WHITE BLOOD CELL COUNT (BEAKER) 8.3 K/ L 3.5-10.5 (test code = 775) RED BLOOD CELL COUNT (BEAKER) 3.89 M/ L 4.63-6.08 L (test code = 761) HEMOGLOBIN (BEAKER) (test code = 11.7 GM/DL 13.7-17.5 L 410) HEMATOCRIT (BEAKER) (test code = 36.0 % 40.1-51.0 L 411) MEAN CORPUSCULAR VOLUME (BEAKER) 92.5 fL 79.0-92.2 H (test code = 753) MEAN CORPUSCULAR HEMOGLOBIN 30.1 pg 25.7-32.2 (BEAKER) (test code = 751) MEAN CORPUSCULAR HEMOGLOBIN CONC 32.5 GM/DL 32.3-36.5 (BEAKER) (test code = 752) RED CELL DISTRIBUTION WIDTH 13.5 % 11.6-14.4 (BEAKER) (test code = 412) PLATELET COUNT (BEAKER) (test 317 K/CU MM 150-450 code = 756) MEAN PLATELET VOLUME (BEAKER) 9.4 fL 9.4-12.4 (test code = 754) NUCLEATED RED BLOOD CELLS 0 /100 WBC 0-0 (BEAKER) (test code = 413) NEUTROPHILS RELATIVE PERCENT 66 % (BEAKER) (test code = 429) LYMPHOCYTES RELATIVE PERCENT 21 % (BEAKER) (test code = 430) MONOCYTES RELATIVE PERCENT 8 % (BEAKER) (test code = 431) EOSINOPHILS RELATIVE PERCENT 3 % (BEAKER) (test code = 432) BASOPHILS RELATIVE PERCENT 1 % (BEAKER) (test code = 437) NEUTROPHILS ABSOLUTE COUNT 5.50 K/ L 1.78-5.38 H (BEAKER) (test code = 670) LYMPHOCYTES ABSOLUTE COUNT 1.78 K/ L 1.32-3.57 (BEAKER) (test code = 414) MONOCYTES ABSOLUTE COUNT (BEAKER) 0.63 K/ L 0.30-0.82 (test code = 415) EOSINOPHILS ABSOLUTE COUNT 0.24 K/ L 0.04-0.54 (BEAKER) (test code = 416) BASOPHILS ABSOLUTE COUNT (BEAKER) 0.11 K/ L 0.01-0.08 H (test code = 417) IMMATURE GRANULOCYTES-RELATIVE 1 % 0-1 PERCENT (BEAKER) (test code = 2801) HEMOGLOBIN [id number] 12:52:00 Test Item Value Reference Range Interpretation Comments HEMOGLOBIN A1C (BEAKER) (test code = 7.9 % 4.3-6.1 H 368) TSH/FREE T4 IF [id number] 12:22:00 Test Item Value Reference Range Interpretation Comments THYROID STIMULATING HORMONE 2.15 uIU/mL 0.35-4.94 (BEAKER) (test code = 772) B-TYPE NATRIURETIC FACTOR (BNP)2017-09-06 11:57:00 Test Item Value Reference Range Interpretation Comments B-TYPE NATRIURETIC PEPTIDE (BEAKER) 364 pg/mL 0-100 H (test code = 700) URIC [id number] 11:55:00 Test Item Value Reference Range Interpretation Comments URIC ACID (BEAKER) (test code = 6.6 mg/dL 2.6-7.2 773) [id number] 11:55:00 Test Item Value Reference Range Interpretation Comments MAGNESIUM (BEAKER) (test code = 1.6 mg/dL 1.6-2.6 627) BASIC METABOLIC [id number] 11:55:00 Test Item Value Reference Range Interpretation Comments SODIUM (BEAKER) 142 meq/L 136-145 (test code = 381) POTASSIUM (BEAKER) 5.4 meq/L 3.5-5.1 H (test code = 379) CHLORIDE (BEAKER) 105 meq/L 98-107 (test code = 382) CO2 (BEAKER) (test 30 meq/L 22-29 H code = 355) BLOOD UREA NITROGEN 29 mg/dL 7-21 H (BEAKER) (test code = 354) CREATININE (BEAKER) 1.70 mg/dL 0.57-1.25 H (test code = 358) GLUCOSE RANDOM 247 mg/dL 70-105 H (BEAKER) (test code = 652) CALCIUM (BEAKER) 9.3 mg/dL 8.4-10.2 (test code = 697) EGFR (BEAKER) (test 40 mL/min/1.73 ESTIMA XIAO GFR IS code = 1092) sq m NOT ACCURATE CREATININE CLEARANCE IN PREDICTING GLOMERULAR FILTRATION RATE . ESTIMATED GFR I S NOT APPLICABLE FOR DIALYSIS PATIEN TS. LIPID [id number] 11:55:00 Test Item Value Reference Range Interpretation Comments TRIGLYCERIDES (BEAKER) (test code = 91 mg/dL 540) CHOLESTEROL (BEAKER) (test code = 134 mg/dL 631) HDL CHOLESTEROL (BEAKER) (test code 50 mg/dL = 976) LDL CHOLESTEROL CALCULATED (BEAKER) 66 mg/dL (test code = 633) Triglyceride Reference Range: Low Risk <150 Borderline 150-199 High Risk 200-499 Very High Risk >=500Cholesterol Reference Range: Low Risk <200 Borderline 200-239 High Risk >240HDL Cholesterol Reference Range: Low Risk >=60 High Risk <40LDL Cholesterol Reference Range: Optimal <100 Near Optimal 100-129 Borderline 130-159 High 160-189 Very High >=190HEPATIC FUNCTION [id number] 11:55:00 Test Item Value Reference Range Interpretation Comments TOTAL PROTEIN (BEAKER) (test code = 7.2 gm/dL 6.0-8.3 770) ALBUMIN (BEAKER) (test code = 1145) 4.0 g/dL 3.5-5.0 BILIRUBIN TOTAL (BEAKER) (test code < mg/dL 0.2-1.2 = 377) BILIRUBIN DIRECT (BEAKER) (test 0.2 mg/dL 0.1-0.5 code = 706) ALKALINE PHOSPHATASE (BEAKER) (test 43 U/L 40-150 code = 346) AST (SGOT) (BEAKER) (test code = 21 U/L 5-34 353) ALT (SGPT) (BEAKER) (test code = 13 U/L 6-55 347) [id number] 11:51:00 Test Item Value Reference Range Interpretation Comments PREALBUMIN (BEAKER) (test code = 29 mg/dL 14-45 586) PROTHROMBIN [id number] 11:41:00 Test Item Value Reference Range Interpretation Comments PROTIME (BEAKER) (test code = 15.4 seconds 11.7-14.7 H 759) INR (BEAKER) (test code = 370) 1.2 <=5.9 RECOMMENDED COUMADIN/WARFARIN INR THERAPY RANGESSTANDARD DOSE: 2.0 - 3.0 Includes: PROPHYLAXIS forvenous thrombosis, systemic embolization; TREATMENT for venous thrombosis and/or pulmonary embolus.HIGH RISK: Target INR is 2.5-3.5 for patients with mechanical heart valves.CBC W/PLT COUNT & AUTO DIFFERENTIAL 2017-09-06 11:33:00 Test Item Value Reference Range Interpretation Comments WHITE BLOOD CELL COUNT (BEAKER) 7.1 K/ L 3.5-10.5 (test code = 775) RED BLOOD CELL COUNT (BEAKER) 4.48 M/ L 4.63-6.08 L (test code = 761) HEMOGLOBIN (BEAKER) (test code = 13.2 GM/DL 13.7-17.5 L 410) HEMATOCRIT (BEAKER) (test code = 41.4 % 40.1-51.0 411) MEAN CORPUSCULAR VOLUME (BEAKER) 92.4 fL 79.0-92.2 H (test code = 753) MEAN CORPUSCULAR HEMOGLOBIN 29.5 pg 25.7-32.2 (BEAKER) (test code = 751) MEAN CORPUSCULAR HEMOGLOBIN CONC 31.9 GM/DL 32.3-36.5 L (BEAKER) (test code = 752) RED CELL DISTRIBUTION WIDTH 13.6 % 11.6-14.4 (BEAKER) (test code = 412) PLATELET COUNT (BEAKER) (test 247 K/CU MM 150-450 code = 756) MEAN PLATELET VOLUME (BEAKER) 9.5 fL 9.4-12.4 (test code = 754) NUCLEATED RED BLOOD CELLS 0 /100 WBC 0-0 (BEAKER) (test code = 413) NEUTROPHILS RELATIVE PERCENT 65 % (BEAKER) (test code = 429) LYMPHOCYTES RELATIVE PERCENT 23 % (BEAKER) (test code = 430) MONOCYTES RELATIVE PERCENT 6 % (BEAKER) (test code = 431) EOSINOPHILS RELATIVE PERCENT 4 % (BEAKER) (test code = 432) BASOPHILS RELATIVE PERCENT 1 % (BEAKER) (test code = 437) NEUTROPHILS ABSOLUTE COUNT 4.61 K/ L 1.78-5.38 (BEAKER) (test code = 670) LYMPHOCYTES ABSOLUTE COUNT 1.59 K/ L 1.32-3.57 (BEAKER) (test code = 414) MONOCYTES ABSOLUTE COUNT (BEAKER) 0.44 K/ L 0.30-0.82 (test code = 415) EOSINOPHILS ABSOLUTE COUNT 0.26 K/ L 0.04-0.54 (BEAKER) (test code = 416) BASOPHILS ABSOLUTE COUNT (BEAKER) 0.10 K/ L 0.01-0.08 H (test code = 417) IMMATURE GRANULOCYTES-RELATIVE 1 % 0-1 PERCENT (BEAKER) (test code = 2801) RAD, BONE DENSITY [id number] 09:58:00Reason for exam:->heart transplant evaluation. screening for osteoporosisShould this be performedat the bedside?->NoFINAL REPORT Technique: Bone mineral density of the lumbar spine and both femoral necks performed on 08/16/2017 Clinical History: Osteopenia screening. Comparison: None Bone mineral density measurementLumbar spine1.382 gm/mk2Dvib Femoral neck1.157 gm/eh1Mdpdk Femoral neck1.120gm/cm2 Standard deviation from young adult [...] MDReport Verified Date/Time: 08/16/2017 09:58:30 Reading Location: [facility] Radiology Reading Room [id number] 12:15:00 Test Item Value Reference Range Interpretation Comments MAGNESIUM (BEAKER) (test code = 1.2 mg/dL 1.6-2.6 L 627) BASIC METABOLIC [id number] 12:15:00 Test Item Value Reference Range Interpretation Comments SODIUM (BEAKER) 140 meq/L 136-145 (test code = 381) POTASSIUM (BEAKER) 4.3 meq/L 3.5-5.1 (test code = 379) CHLORIDE (BEAKER) 103 meq/L 98-107 (test code = 382) CO2 (BEAKER) (test 29 meq/L 22-29 code = 355) BLOOD UREA NITROGEN 18 mg/dL 7-21 (BEAKER) (test code = 354) CREATININE (BEAKER) 1.51 mg/dL 0.57-1.25 H (test code = 358) GLUCOSE RANDOM 154 mg/dL 70-105 H (BEAKER) (test code = 652) CALCIUM (BEAKER) 9.3 mg/dL 8.4-10.2 (test code = 697) EGFR (BEAKER) (test 46 mL/min/1.73 ESTIMA XIAO GFR IS code = 1092) sq m NOT ACCURATE CREATININE CLEARANCE IN PREDICTING GLOMERULAR FILTRATION RATE . ESTIMATED GFR I S NOT APPLICABLE FOR DIALYSIS PATIEN TS. B-TYPE NATRIURETIC FACTOR (BNP)2017-08-08 12:05:00 Test Item Value Reference Range Interpretation Comments B-TYPE NATRIURETIC PEPTIDE (BEAKER) 729 pg/mL 0-100 H (test code = 700) FLOW PRA CLASS I AND [id number] 11:17:00 Test Item Value Reference Range Interpretation Comments DATE OF SERUM (BEAKER) 632485 (test code = 2289) SERUM # (BEAKER) (test 223667 code = 2290) FLOW PRA CLASS I AND II See Scanned Report (test code = 2421) HLA [id number] 07:15:00 Test Item Value Reference Range Interpretation Comments HLA RESULT (BEAKER) (test See Scanned Report code = 2311) HLA-A AG1 (BEAKER) (test code = 2521) HLA-A AG2 (BEAKER) (test code = 2522) HLA-B AG1 (BEAKER) (test code = 2523) HLA-B AG2 (BEAKER) (test code = 2524) HLA-C AG1 (BEAKER) (test code = 2525) HLA-C AG2 (BEAKER) (test code = 2526) HLA-DR AG1 (BEAKER) (test code = 2518) HLA-DR AG2 (BEAKER) (test code = 2519) HLA-DQ AG1 (BEAKER) (test code = 2514) HLA-DQ AG2 (BEAKER) (test code = 2515) HLA-DRW (BEAKER) (test code = 2583) HERPES VIRUS ANTIBODY, [id number] 14:18:00 Test Item Value Reference Range Interpretation Comments HERPES VIRUS IGM Negative HSV 1 IGM = NEGHSV 2 (BEAKER) (test code = IGM = NEG 1808) TOXOPLASMA GONDII ANTIBODY, [id number] 14:18:00 Test Item Value Reference Range Interpretation Comments TOXOPLASMA IGM ANTIBODY (BEAKER) Negative (test code = 742) PROTEIN ELECTROPHORESIS, [id number] 09:23:00 Test Item Value Reference Range Interpretation Comments ALBUMIN 3.9 gm/dL 3.5-5.5 RR: 3.8-4.8 g/d L FRACTION (BEAKER) (test code = 405) ALPHA 1 0.3 gm/dL 0.2-0.4 RR: 0.2-0.3 g/d L FRACTION (BEAKER) (test code = 389) ALPHA 2 1.0 gm/dL 0.5-0.9 H FRACTION (BEAKER) (test code = 390) BETA FRACTION 0.8 gm/dL 0.6-1.1 (BEAKER) (test code = 392) GAMMA GLOBULIN 0.7 gm/dL 0.7-1.7 RR: 0.8-1.7 g /dL FRACTION (BEAKER) (test code = 391) INTERPRETATION- Electrophoretic 119 (BEAKER) studies revealed one (test code = or more fractions 2615) outside the reference interval. Please interpret these results within the context of all clinical and laboratory data available. [facility] Test perform ed T-119 (BEAKER) and interpret ed (test code = by [facility] an 2616) [place] Labs. PROTEIN TOTAL 6.7 gm/dL 6.0-8.5 RR: 6.1-8.1 g/ dL SERUM, SPEP (BEAKER) (test code = 2660) URINE PROTEIN ELECTROPHORESIS, [id number] 08:49:00 Test Item Value Reference Range Interpretation Comments PROTEIN, URINE 12 mg/dL 0-14 (BEAKER) (test code = 1569) ALBUMIN URINE ELP 33.0 % (BEAKER) (test code = 1018) GAMMA GLOBULIN 67.0 % URINE (BEAKER) (test code = 1015) UPEP, ID-438 Pattern consistent (BEAKER) (test with mixed code = 2604) glomerular and tubular proteinuria. [facility]-PATHOLOGIST- Test perfo rmed and 438 (BEAKER) interpreted by (test code = [facility] 2605) [place] L abs. POCT-GLUCOSE [id number] 17:07:00 Test Item Value Reference Range Interpretation Comments POC-GLUCOSE METER 283 mg/dL 70-[address] [facility] 6720 (BEAKER) (test code = [facility] 1538) [address] POCT-GLUCOSE [id number] 12:48:00 Test Item Value Reference Range Interpretation Comments POC-GLUCOSE METER 148 mg/dL 70-[address] [facility] 6720 (BEAKER) (test code = [facility] [place] 1538) [address] POCT-GLUCOSE [id number] 07:37:00 Test Item Value Reference Range Interpretation Comments POC-GLUCOSE METER 154 mg/dL 70-[address] [facility] 6720 (BEAKER) (test code = [facility] 1538) [address] [id number] 07:11:00 Test Item Value Reference Range Interpretation Comments MAGNESIUM (BEAKER) (test code = 1.5 mg/dL 1.6-2.6 L 627) BASIC METABOLIC [id number] 07:11:00 Test Item Value Reference Range Interpretation Comments SODIUM (BEAKER) 140 meq/L 136-145 (test code = 381) POTASSIUM (BEAKER) 4.0 meq/L 3.5-5.1 (test code = 379) CHLORIDE (BEAKER) 109 meq/L 98-107 H (test code = 382) CO2 (BEAKER) (test 24 meq/L 22-29 code = 355) BLOOD UREA NITROGEN 24 mg/dL 7-21 H (BEAKER) (test code = 354) CREATININE (BEAKER) 1.12 mg/dL 0.57-1.25 (test code = 358) GLUCOSE RANDOM 147 mg/dL 70-105 H (BEAKER) (test code = 652) CALCIUM (BEAKER) 8.5 mg/dL 8.4-10.2 (test code = 697) EGFR (BEAKER) (test 65 mL/min/1.73 ESTIMA XIOA GFR IS code = 1092) sq m NOT ACCURATE CREATININE CLEARANCE IN PREDICTING GLOMERULAR FILTRATION RATE . ESTIMATED GFR I S NOT APPLICABLE FOR DIALYSIS PATIEN TS. CBC (HEMOGRAM ONLY)2017-07-20 06:54:00 Test Item Value Reference Range Interpretation Comments WHITE BLOOD CELL COUNT (BEAKER) 7.3 K/ L 3.5-10.5 (test code = 775) RED BLOOD CELL COUNT (BEAKER) 4.41 M/ L 4.63-6.08 L (test code = 761) HEMOGLOBIN (BEAKER) (test code = 13.2 GM/DL 13.7-17.5 L 410) HEMATOCRIT (BEAKER) (test code = 40.5 % 40.1-51.0 411) MEAN CORPUSCULAR VOLUME (BEAKER) 91.8 fL 79.0-92.2 (test code = 753) MEAN CORPUSCULAR HEMOGLOBIN 29.9 pg 25.7-32.2 (BEAKER) (test code = 751) MEAN CORPUSCULAR HEMOGLOBIN CONC 32.6 GM/DL 32.3-36.5 (BEAKER) (test code = 752) RED CELL DISTRIBUTION WIDTH 12.4 % 11.6-14.4 (BEAKER) (test code = 412) PLATELET COUNT (BEAKER) (test 186 K/CU MM 150-450 code = 756) MEAN PLATELET VOLUME ([facility]) 10.3 fL 9.4-12.4 (test code = 754) NUCLEATED RED BLOOD CELLS 0 /100 WBC 0-0 ([facility]) (test code = 413) POCT-GLUCOSE [id number] 21:29:00 Test Item Value Reference Range Interpretation Comments POC-GLUCOSE METER 142 mg/dL 70-110 H TESTED AT [place] [address] ([facility]) (test code = DOUGLAS Peña [facility] 1538) [address] POCT-GLUCOSE [id number] 17:29:00 Test Item Value Reference Range Interpretation Comments POC-GLUCOSE METER 258 mg/dL 70-110 H TESTED AT [place] [address] ([facility]) (test code = DOUGLAS Peña [facility] 1538) [address] TOXOPLASMA GONDII ANTIBODY, [id number] 15:37:00 Test Item Value Reference Range Interpretation Comments TOXOPLASMA GONDII IGG ([facility]) (test Negative code = 419) POCT-GLUCOSE [id number] 11:56:00 Test Item Value Reference Range Interpretation Comments POC-GLUCOSE METER 190 mg/dL 70-110 H TESTED AT [place] [address] ([facility]) (test code = DOUGLAS Peña [facility] 1538) [address] CREATININE [id number] 09:09:00 Test Item Value Reference Range Interpretation Comments CREATININE CLEARANCE 56.5 mL/min 70.0-140.0 L ([facility]) (test code = 357) VOLUME, TOTAL ([facility]) 2500 ml (test code = 1457) CREATININE URINE 46.2 mg/dL ([facility]) (test code = 375) [id number] Angely Santos MD ([facility]) (test code = (electronic signature) 2882) POCT-GLUCOSE [id number] 07:57:00 Test Item Value Reference Range Interpretation Comments POC-GLUCOSE METER 165 mg/dL 70-110 H TESTED AT [place] [address] ([facility]) (test code = DOUGLAS Peña [facility] 1538) [id number] CBC (HEMOGRAM ONLY)2017-07-19 07:06:00 Test Item Value Reference Range Interpretation Comments WHITE BLOOD CELL COUNT ([facility]) 6.5 K/ L 3.5-10.5 (test code = 775) RED BLOOD CELL COUNT (BEAKER) 4.15 M/ L 4.63-6.08 L (test code = 761) HEMOGLOBIN (BEAKER) (test code = 12.5 GM/DL 13.7-17.5 L 410) HEMATOCRIT (BEAKER) (test code = 37.8 % 40.1-51.0 L 411) MEAN CORPUSCULAR VOLUME (BEAKER) 91.1 fL 79.0-92.2 (test code = 753) MEAN CORPUSCULAR HEMOGLOBIN 30.1 pg 25.7-32.2 (BEAKER) (test code = 751) MEAN CORPUSCULAR HEMOGLOBIN CONC 33.1 GM/DL 32.3-36.5 (BEAKER) (test code = 752) RED CELL DISTRIBUTION WIDTH 12.5 % 11.6-14.4 (BEAKER) (test code = 412) PLATELET COUNT (BEAKER) (test 184 K/CU MM 150-450 code = 756) MEAN PLATELET VOLUME (BEAKER) 9.9 fL 9.4-12.4 (test code = 754) NUCLEATED RED BLOOD CELLS 0 /100 WBC 0-0 (BEAKER) (test code = 413) [id number] 04:55:00 Test Item Value Reference Range Interpretation Comments MAGNESIUM (BEAKER) (test code = 1.6 mg/dL 1.6-2.6 627) BASIC METABOLIC [id number] 04:55:00 Test Item Value Reference Range Interpretation Comments SODIUM (BEAKER) 139 meq/L 136-145 (test code = 381) POTASSIUM (BEAKER) 4.0 meq/L 3.5-5.1 (test code = 379) CHLORIDE (BEAKER) 105 meq/L 98-107 (test code = 382) CO2 (BEAKER) (test 27 meq/L 22-29 code = 355) BLOOD UREA NITROGEN 29 mg/dL 7-21 H (BEAKER) (test code = 354) CREATININE (BEAKER) 1.35 mg/dL 0.57-1.25 H (test code = 358) GLUCOSE RANDOM 149 mg/dL 70-105 H (BEAKER) (test code = 652) CALCIUM (BEAKER) 8.5 mg/dL 8.4-10.2 (test code = 697) EGFR (BEAKER) (test 53 mL/min/1.73 ESTIMA XIAO GFR IS code = 1092) sq m NOT ACCURATE CREATININE CLEARANCE IN PREDICTING GLOMERULAR FILTRATION RATE . ESTIMATED GFR I S NOT APPLICABLE FOR DIALYSIS PATIEN TS. POCT-GLUCOSE [id number] 21:35:00 Test Item Value Reference Range Interpretation Comments POC-GLUCOSE METER 138 mg/dL 70-[address] [facility] 6720 ([facility]) (test code = [facility] [place] 1538) [address] POCT-GLUCOSE [id number] 17:20:00 Test Item Value Reference Range Interpretation Comments POC-GLUCOSE METER 108 mg/dL 70-[address] [facility] 6720 ([facility]) (test code = [facility] [place] 1538) [address] VARICELLA ZOSTER ANTIBODY, [id number] 15:46:00 Test Item Value Reference Range Interpretation Comments VARICELLA ZOSTER IGG (AL) ([facility]) > Al (test code = 3197) VARICELLA ZOSTER RESULT INTERPRETATIONS: <=0.8 Al Nonreactive: Presumed non-immune to VZV 0.9-1.0 Al Equivocal >=1.1 Al Reactive: Presumed immune to VZVHERPES VIRUS ANTIBODY, [id number] 15:45:00 Test Item Value Reference Range Interpretation Comments HERPES VIRUS IGG Negative HSV 1 IGG = NEGHSV 2 ([facility]) (test code = IGG = NEG 1807) CYTOMEGALOVIRUS ANTIBODY, [id number] 15:45:00 Test Item Value Reference Range Interpretation Comments CYTOMEGALOVIRUS IGG ANTIBODY Positive ([facility]) (test code = 790) CYTOMEGALOVIRUS ANTIBODY, [id number] 15:45:00 Test Item Value Reference Range Interpretation Comments CYTOMEGALOVIRUS IGM ANTIBODY Negative ([facility]) (test code = 816) EBV-VCA ANTIBODY, [id number] 15:45:00 Test Item Value Reference Range Interpretation Comments SARY-NGUYEN VCA IGG (AKER) (test Positive code = 983) EBV-VCA ANTIBODY, [id number] 15:45:00 Test Item Value Reference Range Interpretation Comments SARY-NGUYEN VCA IGM (BEAKER) (test Negative code = 984) ANTI-NUCLEAR ANTIBODY (JOCELYNN)2017-07-18 11:50:00 Test Item Value Reference Range Interpretation Comments ANTI-NUCLEAR ANTIBODY (JOCELYNN) (BEAKER) Negative Negative (test code = 418) POCT-GLUCOSE [id number] 11:47:00 Test Item Value Reference Range Interpretation Comments POC-GLUCOSE METER 179 mg/dL 70-[address] [facility] 6720 (BEAKER) (test code = DOUGLAS Peña [place] 1538) [id number] 10:39:00 Test Item Value Reference Range Interpretation Comments RPR SCREEN (BEAKER) (test code = Nonreactive Nonreactive 420) POCT-GLUCOSE [id number] 07:35:00 Test Item Value Reference Range Interpretation Comments POC-GLUCOSE METER 167 mg/dL 70-[address] [facility] 6720 (BEAKER) (test code = DOUGLAS Peña [place] 1538) [address] [id number] 07:35:00 Test Item Value Reference Range Interpretation Comments PHOSPHORUS (BEAKER) (test code = 2.9 mg/dL 2.3-4.7 604) [id number] 07:35:00 Test Item Value Reference Range Interpretation Comments MAGNESIUM (BEAKER) (test code = 1.8 mg/dL 1.6-2.6 627) BASIC METABOLIC [id number] 07:35:00 Test Item Value Reference Range Interpretation Comments SODIUM (BEAKER) 137 meq/L 136-145 (test code = 381) POTASSIUM (BEAKER) 4.2 meq/L 3.5-5.1 (test code = 379) CHLORIDE (BEAKER) 101 meq/L 98-107 (test code = 382) CO2 (BEAKER) (test 28 meq/L 22-29 code = 355) BLOOD UREA NITROGEN 33 mg/dL 7-21 H (BEAKER) (test code = 354) CREATININE (BEAKER) 1.59 mg/dL 0.57-1.25 H (test code = 358) GLUCOSE RANDOM 156 mg/dL 70-105 H (BEAKER) (test code = 652) CALCIUM (BEAKER) 8.6 mg/dL 8.4-10.2 (test code = 697) EGFR (BEAKER) (test 44 mL/min/1.73 ESTIMA XIAO GFR IS code = 1092) sq m NOT ACCURATE CREATININE CLEARANCE IN PREDICTING GLOMERULAR FILTRATION RATE . ESTIMATED GFR I S NOT APPLICABLE FOR DIALYSIS PATIEN TS. PTH, [id number] 07:24:00 Test Item Value Reference Range Interpretation Comments PARATHYROID HORMONE INTACT 42.1 pg/mL 8.5-72.5 (BEAKER) (test code = 577) B-TYPE NATRIURETIC FACTOR (BNP)2017-07-18 07:23:00 Test Item Value Reference Range Interpretation Comments B-TYPE NATRIURETIC PEPTIDE (BEAKER) 682 pg/mL 0-100 H (test code = 700) CBC (HEMOGRAM ONLY)2017-07-18 07:03:00 Test Item Value Reference Range Interpretation Comments WHITE BLOOD CELL COUNT (BEAKER) 7.4 K/ L 3.5-10.5 (test code = 775) RED BLOOD CELL COUNT (BEAKER) 4.45 M/ L 4.63-6.08 L (test code = 761) HEMOGLOBIN (BEAKER) (test code = 13.1 GM/DL 13.7-17.5 L 410) HEMATOCRIT (BEAKER) (test code = 40.7 % 40.1-51.0 411) MEAN CORPUSCULAR VOLUME (BEAKER) 91.5 fL 79.0-92.2 (test code = 753) MEAN CORPUSCULAR HEMOGLOBIN 29.4 pg 25.7-32.2 (BEAKER) (test code = 751) MEAN CORPUSCULAR HEMOGLOBIN CONC 32.2 GM/DL 32.3-36.5 L (BEAKER) (test code = 752) RED CELL DISTRIBUTION WIDTH 12.5 % 11.6-14.4 (BEAKER) (test code = 412) PLATELET COUNT (BEAKER) (test 197 K/CU MM 150-450 code = 756) MEAN PLATELET VOLUME (BEAKER) 10.2 fL 9.4-12.4 (test code = 754) NUCLEATED RED BLOOD CELLS 0 /100 WBC 0-0 (BEAKER) (test code = 413) HEPATITIS B CORE ANTIBODY, [id number] 22:00:00 Test Item Value Reference Range Interpretation Comments HEPATITIS B CORE TOTAL ANTIBODY Nonreactive Nonreactive (BEAKER) (test code = 497) HEPATITIS PANEL, [id number] 22:00:00 Test Item Value Reference Range Interpretation Comments HEPATITIS A IGM ANTIBODY (BEAKER) Nonreactive Nonreactive (test code = 498) HEPATITIS B CORE IGM ANTIBODY Nonreactive Nonreactive (BEAKER) (test code = 645) HEPATITIS C ANTIBODY (BEAKER) Nonreactive Nonreactive (test code = 367) HEPATITIS B SURFACE ANTIGEN (2) Nonreactive Nonreactive (BEAKER) (test code = 2585) HIV-1 ANTIGEN WITH HIV-1/2 [id number] 22:00:00 Test Item Value Reference Range Interpretation Comments HIV-1 ANTIGEN WITH HIV 1\\T\\2 Nonreactive Nonreactive ANTIBODY (2) (BEAKER) (test code = 2586) HEPATITIS A ANTIBODY, [id number] 22:00:00 Test Item Value Reference Range Interpretation Comments HEPATITIS A IGG ANTIBODY (BEAKER) Nonreactive Nonreactive (test code = 2797) CREATININE, RANDOM [id number] 21:37:00 Test Item Value Reference Range Interpretation Comments CREATININE URINE (BEAKER) (test 150.2 mg/dL code = 375) Reference Range: No NormalsPROTEIN, RANDOM [id number] 21:37:00 Test Item Value Reference Range Interpretation Comments PROTEIN, URINE (BEAKER) (test code = 12 mg/dL 0-14 1569) [id number] 21:15:00 Test Item Value Reference Range Interpretation Comments PROSTATE SPECIFIC ANTIGEN (BEAKER) 1.0 ng/mL 0.0-4.0 (test code = 844) POCT-GLUCOSE [id number] 20:53:00 Test Item Value Reference Range Interpretation Comments POC-GLUCOSE METER 182 mg/dL 70-[address] [facility] 6720 (BEAKER) (test code = DOUGLAS Peña [facility] 1538) [address] T4, [id number] 20:33:00 Test Item Value Reference Range Interpretation Comments FREE T4 (BEAKER) (test code = 655) 1.27 ng/dL 0.70-1.48 [id number] 20:33:00 Test Item Value Reference Range Interpretation Comments FERRITIN (BEAKER) (test code = 361) 75 ng/mL 5-275 VITAMIN D, [id number] 20:32:00 Test Item Value Reference Range Interpretation Comments VITAMIN D 25-OH (BEAKER) (test 24.7 ng/mL 6.6-49.9 code = 2764) Effective 06/27/2017: Reference Range ChangeNew: 6.6-49.9 ng/mL Previous: 13.0-47.8 ng/mLRecommended Vitamin D Target Range: 30.0-40.0 ng/mLTRANSFERRIN 2017-07-17 20:20:00 Test Item Value Reference Range Interpretation Comments TRANSFERRIN (BEAKER) (test code = 418 mg/dL 174-382 H 541) [id number] 20:17:00 Test Item Value Reference Range Interpretation Comments PREALBUMIN (BEAKER) (test code = 27 mg/dL 14-45 586) IRON, [id number] 20:17:00 Test Item Value Reference Range Interpretation Comments IRON (BEAKER) (test code = 547) 102 ug/dL 40-160 URIC [id number] 20:16:00 Test Item Value Reference Range Interpretation Comments URIC ACID (BEAKER) (test code = 8.3 mg/dL 2.6-7.2 H 773) [id number] 20:16:00 Test Item Value Reference Range Interpretation Comments PHOSPHORUS (BEAKER) (test code = 3.5 mg/dL 2.3-4.7 604) HEPATIC FUNCTION [id number] 20:16:00 Test Item Value Reference Range Interpretation Comments TOTAL PROTEIN (BEAKER) (test code = 7.0 gm/dL 6.0-8.3 770) ALBUMIN (BEAKER) (test code = 1145) 3.9 g/dL 3.5-5.0 BILIRUBIN TOTAL (BEAKER) (test code 0.5 mg/dL 0.2-1.2 = 377) BILIRUBIN DIRECT (BEAKER) (test 0.2 mg/dL 0.1-0.5 code = 706) ALKALINE PHOSPHATASE (BEAKER) (test 38 U/L 40-150 L code = 346) AST (SGOT) (BEAKER) (test code = 25 U/L 5-34 353) ALT (SGPT) (BEAKER) (test code = 17 U/L 6-55 347) [id number] 20:16:00 Test Item Value Reference Range Interpretation Comments AMYLASE (BEAKER) (test code = 349) 72 U/L 25-125 [id number] 20:16:00 Test Item Value Reference Range Interpretation Comments CREATININE (BEAKER) 1.75 mg/dL 0.57-1.25 H (test code = 358) EGFR (BEAKER) (test 39 mL/min/1.73 ESTIMA XIAO GFR IS code = 1092) sq m NOT ACCURATE CREATININE CLEARANCE IN PREDICTING GLOMERULAR FILTRATION RATE . ESTIMATED GFR I S NOT APPLICABLE FOR DIALYSIS PATIEN TS. GAMMA GLUTAMYL TRANSFERASE (GGT)2017-07-17 20:16:00 Test Item Value Reference Range Interpretation Comments GAMMA GLUTAMYL TRANSFERASE (BEAKER) 13 U/L 9-64 (test code = 364) LACTATE DEHYDROGENASE (LDH)2017-07-17 20:16:00 Test Item Value Reference Range Interpretation Comments LACTATE DEHYDROGENASE (BEAKER) (test 222 U/L 125-220 H code = 635) [id number] 20:16:00 Test Item Value Reference Range Interpretation Comments LIPASE (BEAKER) (test code = 749) 43 U/L 8-78 RETICULOCYTE [id number] 19:56:00 Test Item Value Reference Range Interpretation Comments RETICULOCYTE COUNT PCT (BEAKER) (test 1.6 % 0.5-1.8 code = 575) CT, CHEST, WITHOUT [id number] 18:13:00FINAL REPORT CT of the Chest and [...] CT of the abdomen. Signed: Yuliya Garrett MDReport Verified Date/Time: 07/17/2017 18:13:06 Reading Location: [facility] B1 C013Y CT Body Reading Room CT, ABDOMEN, WITHOUT [id number] 18:13:00FINAL REPORT CT of the Chest and Abdomen dated 07/17/2017 Clinical information: Heart transplant evaluation Comment: Axial images of the chest and abdomen were obtained from thoracic inlet to the upper pelvis This exam was performed according to our departmental dose-optimization program, which includes automated exposure control, adjustment of the mA and/or kV accord ing to patient size and/or use of interactive [...] the abdomen. Signed: Yuliya Garrett Verified Date/Time: 07/17/2017 18:13:06 Reading Location: [facility] B1 C013Y CT Body Reading Room CT, BRAIN, WITHOUT [id number] 17:55:00FINAL REPORT CT Head without contrast CLINICAL [...] is intact. The visualized paranasal sinuses are well- aerated. IMPRESSION: Small chronic right cerebellarinfarct. Signed: Keo Elizabeth Verified Date/Time: 07/17/2017 17:55:05 Reading Location: [facility] Reading Room 05:55 PMPOCT-GLUCOSE [id number] 14:27:00 Test Item Value Reference Range Interpretation Comments POC-GLUCOSE METER 121 mg/dL 70-110 H TESTED AT [place] [address] ([employer]) (test code = [place] 1538) [id number] POCT-GLUCOSE [id number] 07:28:00 Test Item Value Reference Range Interpretation Comments POC-GLUCOSE METER 158 mg/dL 70-110 H TESTED AT [place] [address] (BEAKER) (test code = [place] 1538) [id number] 04:57:00 Test Item Value Reference Range Interpretation Comments MAGNESIUM (BEAKER) (test code = 1.6 mg/dL 1.6-2.6 627) BASIC METABOLIC [id number] 04:57:00 Test Item Value Reference Range Interpretation Comments SODIUM (BEAKER) 138 meq/L 136-145 (test code = 381) POTASSIUM (BEAKER) 3.5 meq/L 3.5-5.1 (test code = 379) CHLORIDE (BEAKER) 98 meq/L 98-107 (test code = 382) CO2 (BEAKER) (test 28 meq/L 22-29 code = 355) BLOOD UREA NITROGEN 34 mg/dL 7-21 H (BEAKER) (test code = 354) CREATININE (BEAKER) 1.63 mg/dL 0.57-1.25 H (test code = 358) GLUCOSE RANDOM 147 mg/dL 70-105 H (BEAKER) (test code = 652) CALCIUM (BEAKER) 8.8 mg/dL 8.4-10.2 (test code = 697) EGFR (BEAKER) (test 42 mL/min/1.73 ESTIMA XIAO GFR IS code = 1092) sq m NOT ACCURATE CREATININE CLEARANCE IN PREDICTING GLOMERULAR FILTRATION RATE . ESTIMATED GFR I S NOT APPLICABLE FOR DIALYSIS PATIEN TS. CBC (HEMOGRAM ONLY)2017-07-17 04:37:00 Test Item Value Reference Range Interpretation Comments WHITE BLOOD CELL COUNT (BEAKER) 7.5 K/ L 3.5-10.5 (test code = 775) RED BLOOD CELL COUNT (BEAKER) 4.62 M/ L 4.63-6.08 L (test code = 761) HEMOGLOBIN (BEAKER) (test code = 13.6 GM/DL 13.7-17.5 L 410) HEMATOCRIT (BEAKER) (test code = 41.4 % 40.1-51.0 411) MEAN CORPUSCULAR VOLUME (BEAKER) 89.6 fL 79.0-92.2 (test code = 753) MEAN CORPUSCULAR HEMOGLOBIN 29.4 pg 25.7-32.2 (BEAKER) (test code = 751) MEAN CORPUSCULAR HEMOGLOBIN CONC 32.9 GM/DL 32.3-36.5 (BEAKER) (test code = 752) RED CELL DISTRIBUTION WIDTH 12.6 % 11.6-14.4 (BEAKER) (test code = 412) PLATELET COUNT (BEAKER) (test 199 K/CU MM 150-450 code = 756) MEAN PLATELET VOLUME (BEAKER) 10.3 fL 9.4-12.4 (test code = 754) NUCLEATED RED BLOOD CELLS 0 /100 WBC 0-0 (BEAKER) (test code = 413) POCT-GLUCOSE [id number] 21:00:00 Test Item Value Reference Range Interpretation Comments POC-GLUCOSE METER 160 mg/dL 70-110 H TESTED AT [place] [address] [facility] (test code = [place] 1538) [id number] POCT-GLUCOSE [id number] 17:10:00 Test Item Value Reference Range Interpretation Comments POC-GLUCOSE METER 148 mg/dL 70-110 H TESTED AT [place] [address] ([facility]) (test code = [place] 1538) [id number] POCT-GLUCOSE [id number] 12:10:00 Test Item Value Reference Range Interpretation Comments POC-GLUCOSE METER 246 mg/dL 70-110 H TESTED AT [place] [address] ([facility] (test code = [place] 1538) [id number] POCT-GLUCOSE [id number] 08:32:00 Test Item Value Reference Range Interpretation Comments POC-GLUCOSE METER 186 mg/dL 70-110 H TESTED AT [place] [address] ([facility] (test code = [place] 1538) [id number] 06:35:00 Test Item Value Reference Range Interpretation Comments MAGNESIUM (BEAKER) (test code = 1.7 mg/dL 1.6-2.6 627) BASIC METABOLIC [id number] 06:35:00 Test Item Value Reference Range Interpretation Comments SODIUM (BEAKER) 140 meq/L 136-145 (test code = 381) POTASSIUM (BEAKER) 3.7 meq/L 3.5-5.1 (test code = 379) CHLORIDE (BEAKER) 97 meq/L 98-107 L (test code = 382) CO2 (BEAKER) (test 32 meq/L 22-29 H code = 355) BLOOD UREA NITROGEN 30 mg/dL 7-21 H (BEAKER) (test code = 354) CREATININE (BEAKER) 1.59 mg/dL 0.57-1.25 H (test code = 358) GLUCOSE RANDOM 158 mg/dL 70-105 H (BEAKER) (test code = 652) CALCIUM (BEAKER) 9.2 mg/dL 8.4-10.2 (test code = 697) EGFR (BEAKER) (test 44 mL/min/1.73 ESTIMA XIAO GFR IS code = 1092) sq m NOT ACCURATE CREATININE CLEARANCE IN PREDICTING GLOMERULAR FILTRATION RATE . ESTIMATED GFR I S NOT APPLICABLE FOR DIALYSIS PATIEN TS. CBC (HEMOGRAM ONLY)2017-07-16 06:22:00 Test Item Value Reference Range Interpretation Comments WHITE BLOOD CELL COUNT (BEAKER) 7.7 K/ L 3.5-10.5 (test code = 775) RED BLOOD CELL COUNT (BEAKER) 4.85 M/ L 4.63-6.08 (test code = 761) HEMOGLOBIN (BEAKER) (test code = 14.6 GM/DL 13.7-17.5 410) HEMATOCRIT (BEAKER) (test code = 43.5 % 40.1-51.0 411) MEAN CORPUSCULAR VOLUME (BEAKER) 89.7 fL 79.0-92.2 (test code = 753) MEAN CORPUSCULAR HEMOGLOBIN 30.1 pg 25.7-32.2 (BEAKER) (test code = 751) MEAN CORPUSCULAR HEMOGLOBIN CONC 33.6 GM/DL 32.3-36.5 (BEAKER) (test code = 752) RED CELL DISTRIBUTION WIDTH 12.4 % 11.6-14.4 (BEAKER) (test code = 412) PLATELET COUNT (BEAKER) (test 193 K/CU MM 150-450 code = 756) MEAN PLATELET VOLUME (BEAKER) 10.2 fL 9.4-12.4 (test code = 754) NUCLEATED RED BLOOD CELLS 0 /100 WBC 0-0 (BEAKER) (test code = 413) POCT-GLUCOSE [id number] 20:53:00 Test Item Value Reference Range Interpretation Comments POC-GLUCOSE METER 228 mg/dL 70-[address] [facility] [address] ([facility]) (test code = [place] 1538) [id number] POCT-GLUCOSE [id number] 17:06:00 Test Item Value Reference Range Interpretation Comments POC-GLUCOSE METER 194 mg/dL 70-[address] [facility] [address] (BEAKER) (test code = [place] Peña [facility] 1538) [id number] POCT-GLUCOSE [id number] 13:27:00 Test Item Value Reference Range Interpretation Comments POC-GLUCOSE METER 272 mg/dL 70-[address] [facility] [address] (BEAKER) (test code = [place] [facility] 1538) [id number] POCT-GLUCOSE [id number] 09:14:00 Test Item Value Reference Range Interpretation Comments POC-GLUCOSE METER 172 mg/dL 70-[address] [facility] 67 (BEAKER) (test code = [place] Pe[place] [facility] 1538) [address] [id number] 07:37:00 Test Item Value Reference Range Interpretation Comments MAGNESIUM (BEAKER) (test code = 2.2 mg/dL 1.6-2.6 627) BASIC METABOLIC [id number] 07:37:00 Test Item Value Reference Range Interpretation Comments SODIUM (BEAKER) 138 meq/L 136-145 (test code = 381) POTASSIUM (BEAKER) 3.5 meq/L 3.5-5.1 (test code = 379) CHLORIDE (BEAKER) 97 meq/L 98-107 L (test code = 382) CO2 (BEAKER) (test 29 meq/L -29 code = 355) BLOOD UREA NITROGEN 24 mg/dL 7-21 H (BEAKER) (test code = 354) CREATININE (BEAKER) 1.37 mg/dL 0.57-1.25 H (test code = 358) GLUCOSE RANDOM 154 mg/dL 70-105 H (BEAKER) (test code = 652) CALCIUM (BEAKER) 8.9 mg/dL 8.4-10.2 (test code = 697) EGFR (BEAKER) (test 52 mL/min/1.73 ESTIMA XIAO GFR IS code = 1092) sq m NOT ACCURATE CREATININE CLEARANCE IN PREDICTING GLOMERULAR FILTRATION RATE . ESTIMATED GFR I S NOT APPLICABLE FOR DIALYSIS PATIEN TS. CBC (HEMOGRAM ONLY)2017-07-15 07:22:00 Test Item Value Reference Range Interpretation Comments WHITE BLOOD CELL COUNT (BEAKER) 7.7 K/ L 3.5-10.5 (test code = 775) RED BLOOD CELL COUNT (BEAKER) 4.76 M/ L 4.63-6.08 (test code = 761) HEMOGLOBIN (BEAKER) (test code = 14.3 GM/DL 13.7-17.5 410) HEMATOCRIT (BEAKER) (test code = 43.1 % 40.1-51.0 411) MEAN CORPUSCULAR VOLUME (BEAKER) 90.5 fL 79.0-92.2 (test code = 753) MEAN CORPUSCULAR HEMOGLOBIN 30.0 pg 25.7-32.2 (BEAKER) (test code = 751) MEAN CORPUSCULAR HEMOGLOBIN CONC 33.2 GM/DL 32.3-36.5 (BEAKER) (test code = 752) RED CELL DISTRIBUTION WIDTH 12.6 % 11.6-14.4 (BEAKER) (test code = 412) PLATELET COUNT (BEAKER) (test 188 K/CU MM 150-450 code = 756) MEAN PLATELET VOLUME (BEAKER) 10.0 fL 9.4-12.4 (test code = 754) NUCLEATED RED BLOOD CELLS 0 /100 WBC 0-0 (BEAKER) (test code = 413) POCT-GLUCOSE [id number] 21:21:00 Test Item Value Reference Range Interpretation Comments POC-GLUCOSE METER 315 mg/dL 70-110 H TESTED AT [place] [address] ([facility]) (test code = [place] [facility] 1538) [id number] POCT-GLUCOSE [id number] 17:03:00 Test Item Value Reference Range Interpretation Comments POC-GLUCOSE METER 171 mg/dL 70-110 H TESTED AT [place] [address] ([facility]) (test code = [place] Peña [facility] 1538) [id number] POCT-GLUCOSE [id number] 12:23:00 Test Item Value Reference Range Interpretation Comments POC-GLUCOSE METER 204 mg/dL 70-110 H TESTED AT [place] [address] ([facility]) (test code = [place] Pe[place] [facility] 1538) [address] POCT-GLUCOSE [id number] 08:21:00 Test Item Value Reference Range Interpretation Comments POC-GLUCOSE METER 141 mg/dL 70-110 H TESTED AT [place] [address] ([facility]) (test code = [place] 1538) [id number] CBC (HEMOGRAM ONLY)2017-07-14 06:15:00 Test Item Value Reference Range Interpretation Comments WHITE BLOOD CELL COUNT (BEAKER) 7.4 K/ L 3.5-10.5 (test code = 775) RED BLOOD CELL COUNT (BEAKER) 4.34 M/ L 4.63-6.08 L (test code = 761) HEMOGLOBIN (BEAKER) (test code = 12.9 GM/DL 13.7-17.5 L 410) HEMATOCRIT (BEAKER) (test code = 39.4 % 40.1-51.0 L 411) MEAN CORPUSCULAR VOLUME (BEAKER) 90.8 fL 79.0-92.2 (test code = 753) MEAN CORPUSCULAR HEMOGLOBIN 29.7 pg 25.7-32.2 (BEAKER) (test code = 751) MEAN CORPUSCULAR HEMOGLOBIN CONC 32.7 GM/DL 32.3-36.5 (BEAKER) (test code = 752) RED CELL DISTRIBUTION WIDTH 12.8 % 11.6-14.4 (BEAKER) (test code = 412) PLATELET COUNT (BEAKER) (test 183 K/CU MM 150-450 code = 756) MEAN PLATELET VOLUME (BEAKER) 10.8 fL 9.4-12.4 (test code = 754) NUCLEATED RED BLOOD CELLS 0 /100 WBC 0-0 (BEAKER) (test code = 413) [id number] 03:28:00 Test Item Value Reference Range Interpretation Comments MAGNESIUM (BEAKER) (test code = 1.5 mg/dL 1.6-2.6 L 627) LIPID [id number] 03:28:00 Test Item Value Reference Range Interpretation Comments TRIGLYCERIDES (BEAKER) (test code = 95 mg/dL 540) CHOLESTEROL (BEAKER) (test code = 110 mg/dL 631) HDL CHOLESTEROL (BEAKER) (test code 38 mg/dL = 976) LDL CHOLESTEROL CALCULATED (BEAKER) 53 mg/dL (test code = 633) Triglyceride Reference Range: Low Risk <150 Borderline 150-199 High Risk 200-499 Very High Risk >=500Cholesterol Reference Range: Low Risk <200 Borderline 200-239 High Risk >240HDL Cholesterol Reference Range: Low Risk >=60 High Risk <40LDL Cholesterol Reference Range: Optimal <100 Near Optimal 100-129 Borderline 130-159 High 160-189 Very High >=190BASIC METABOLIC [id number] 03:28:00 Test Item Value Reference Range Interpretation Comments SODIUM (BEAKER) 138 meq/L 136-145 (test code = 381) POTASSIUM (BEAKER) 3.6 meq/L 3.5-5.1 (test code = 379) CHLORIDE (BEAKER) 101 meq/L 98-107 (test code = 382) CO2 (BEAKER) (test 28 meq/L 22-29 code = 355) BLOOD UREA NITROGEN 32 mg/dL 7-21 H (BEAKER) (test code = 354) CREATININE (BEAKER) 1.68 mg/dL 0.57-1.25 H (test code = 358) GLUCOSE RANDOM 172 mg/dL 70-105 H (BEAKER) (test code = 652) CALCIUM (BEAKER) 8.6 mg/dL 8.4-10.2 (test code = 697) EGFR (BEAKER) (test 41 mL/min/1.73 ESTIMA XIAO GFR IS code = 1092) sq m NOT ACCURATE CREATININE CLEARANCE IN PREDICTING GLOMERULAR FILTRATION RATE . ESTIMATED GFR I S NOT APPLICABLE FOR DIALYSIS PATIEN TS. [id number] 02:36:00 Test Item Value Reference Range Interpretation Comments PARTIAL THROMBOPLASTIN TIME 25.9 seconds 22.5-36.0 (BEAKER) (test code = 760) POCT-GLUCOSE [id number] 22:55:00 Test Item Value Reference Range Interpretation Comments POC-GLUCOSE METER 206 mg/dL 70-[address] [facility] 67[address] (BEAKER) (test code = [place] 1538) [id number] 18:22:00 Test Item Value Reference Range Interpretation Comments PARTIAL THROMBOPLASTIN TIME 41.6 seconds 22.5-36.0 H (BEAKER) (test code = 760) CREATINE KINASE (CK), TOTAL AND [id number] 12:57:00 Test Item Value Reference Range Interpretation Comments CREATINE KINASE TOTAL (BEAKER) 142 U/L 29-200 (test code = 380) CREATINE KINASE-MB (BEAKER) (test 5.3 ng/mL 0.0-6.6 code = 750) CREATINE KINASE-MB INDEX (JOLEEN) 3.7 % (test code = 395) CK-MB Reference Range:<6.7 Normal6.7-10.0 Borderline>10.0 AbnormalTROPONIN [id number] 12:55:00 Test Item Value Reference Range Interpretation Comments TROPONIN I (JOLEEN) (test code = 0.11 ng/mL 0.00-0.03 H 397) Troponin I (TnI) levels must be interpreted [...] acidosis, acute neurological disease, and persistent tachyarrhythmia.POCT-GLUCOSE [id number] 11:57:00 Test Item Value Reference Range Interpretation Comments POC-GLUCOSE METER 105 mg/dL 70-[address] [facility] [address] [facility] (test code = [place] 1538) [id number] HEMOGLOBIN [id number] 10:45:00 Test Item Value Reference Range Interpretation Comments HEMOGLOBIN A1C (JOLEEN) (test code = 7.1 % 4.3-6.1 H 368) TSH/FREE T4 IF [id number] 09:41:00 Test Item Value Reference Range Interpretation Comments THYROID STIMULATING HORMONE 1.16 uIU/mL 0.35-4.94 (JOLEEN) (test code = 772) U/S, RENAL, [id number] 09:15:00Reason for exam:->AKIFINAL REPORT Ultrasound of the Kidneys, 07/13/2017. Clinical History: Acutekidney injury. Discussion:Sonographic evaluation of the kidneys [...] ultrasound of the bilateral kidneys. Signed: Andrés Trejoort Verified Date/Time: 07/13/2017 09:15:34 Reading Location: [address] Ultrasound Reading Room APTT 2017-07-13 08:56:00 Test Item Value Reference Range Interpretation Comments PARTIAL THROMBOPLASTIN TIME 27.7 seconds 22.5-36.0 (BEAKER) (test code = 760) Prior to initiating heparinPLATELET [id number] 08:51:00 Test Item Value Reference Range Interpretation Comments PLATELET COUNT (BEAKER) (test 183 K/CU MM 150-450 code = 756) URINALYSIS W/ [id number] 08:45:00 Test Item Value Reference Range Interpretation Comments COLOR (BEAKER) (test code = 470) Light Yellow CLARITY (BEAKER) (test code = Clear 469) SPECIFIC GRAVITY UA (BEAKER) 1.007 1.001-1.035 (test code = 468) PH UA (BEAKER) (test code = 467) 5.0 5.0-8.0 PROTEIN UA (BEAKER) (test code = Negative Negative 464) GLUCOSE UA (BEAKER) (test code = 300 mg/dL Negative A 365) KETONES UA (BEAKER) (test code = Negative Negative 371) BILIRUBIN UA (BEAKER) (test code Negative Negative = 462) BLOOD UA (BEAKER) (test code = Negative Negative 461) NITRITE UA (BEAKER) (test code = Negative Negative 465) LEUKOCYTE ESTERASE UA (BEAKER) Negative Negative (test code = 466) UROBILINOGEN UA (BEAKER) (test 0.2 mg/dL 0.2-1.0 code = 463) RBC UA (BEAKER) (test code = 1 /HPF 519) WBC UA (BEAKER) (test code = 4 /HPF 520) MUCUS (BEAKER) (test code = Rare 1574) SQUAMOUS EPITHELIAL (BEAKER) 1 /HPF (test code = 516) SOURCE(BEAKER) (test code = 8636) POCT-GLUCOSE [id number] 07:58:00 Test Item Value Reference Range Interpretation Comments POC-GLUCOSE METER 186 mg/dL 70-[address] [facility] 67[address] (BEAKER) (test code = [place] 1538) [id number] RAPID DRUG SCREEN, [id number] 07:31:00 Test Item Value Reference Range Interpretation Comments BARBITURATE URINE (BEAKER) (test Negative Negative code = 725) BENZODIAZEPINE SCREEN URINE (BEAKER) Negative Negative (test code = 726) COCAINE (METAB.) SCREEN (BEAKER) Negative Negative (test code = 1164) METHADONE SCREEN (BEAKER) (test code Negative Negative = 1436) OPIATE SCREEN URINE (BEAKER) (test Negative Negative code = 734) CANNABINOID SCREEN URINE (BEAKER) Negative Negative (test code = 727) AMPH/METHAMPH SCREEN (BEAKER) (test Negative Negative code = 1438) PHENCYCLIDINE SCREEN URINE (BEAKER) Negative Negative (test code = 608) OXYCODONE SCREEN URINE (BEAKER) Negative Negative (test code = 2761) DRUG CUTOFF CONC.Cocaine 300 ng/mL Cannabinoid 50 ng/mL Benzodiazepine 200 ng/mLBarbiturate 200 ng/mLPhencyclidine 25 ng/mLOpiate 300 ng/mLMethadone 300 ng/mLAmphetamine/ 1000 ng/mL MethamphetamineOxycodone 300 ng/mLThis assay provides an unconfirmed qualitative test result for the clinical management of patients in emergency situations. Chain of custody not maintained. Some rlgb-xuv-yszfkju medications, as well as adulterants, may cause inaccurate results. Clinical correlation should be applied. A more comprehensive drug screen or confirmation of a detected drug may be performed upon request.CREATININE, RANDOM [id number] 07:25:00 Test Item Value Reference Range Interpretation Comments CREATININE URINE (BEAKER) (test 39.7 mg/dL code = 375) Reference Range: No NormalsSODIUM, RANDOM [id number] 07:25:00 Test Item Value Reference Range Interpretation Comments SODIUM URINE (BEAKER) (test code = 95 meq/L 243) Reference Range: No NormalsCREATINE KINASE (CK), TOTAL AND [id number] 07:05:00 Test Item Value Reference Range Interpretation Comments CREATINE KINASE TOTAL (BEAKER) 101 U/L 29-200 (test code = 380) CREATINE KINASE-MB (JOLEEN) (test 3.8 ng/mL 0.0-6.6 code = 750) CREATINE KINASE-MB INDEX (JOLEEN) 3.8 % (test code = 395) CK-MB Reference Range:<6.7 Normal6.7-10.0 Borderline>10.0 AbnormalTROPONIN [id number] 07:05:00 Test Item Value Reference Range Interpretation Comments TROPONIN I (JOLEEN) (test code = 0.10 ng/mL 0.00-0.03 H 397) Troponin I (TnI) levels must be interpreted [...] and persistent tachyarrhythmia.RAD, CHEST, 1 VIEW, NON [id number] 01:09:00Reason for exam:->SHORTNESS OF BREATHShould this be performed at the bedside?->YesFINAL REPORT EXAMINATION: AP PORTABLE CHEST RADIOGRAPH CLINICAL INDICATION:Intubated IMPRESSION: Compared with 05/26/2017 Patient is status [...] available for dictation secondary to technical issues ([facility] downtime). Signed: Whitney Mock MDReport Verified Date/Time: 07/13/2017 01:09:11 Reading Location: [address] Reading Room CREATINE KINASE (CK), TOTAL AND [id number] 00:42:00 Test Item Value Reference Range Interpretation Comments CREATINE KINASE TOTAL (BEAKER) 66 U/L 29-200 (test code = 380) CREATINE KINASE-MB (BEAKER) (test 2.1 ng/mL 0.0-6.6 code = 750) CREATINE KINASE-MB INDEX (BEAKER) 3.2 % (test code = 395) CK-MB Reference Range:<6.7 Normal6.7-10.0 Borderline>10.0 AbnormalTROPONIN [id number] 00:42:00 Test Item Value Reference Range Interpretation Comments TROPONIN I (BEAKER) (test code = 0.05 ng/mL 0.00-0.03 H 397) Troponin I (TnI) levels must be interpreted [...] acute neurological disease, and persistent tachyarrhythmia.BASIC METABOLIC [id number] 00:40:00 Test Item Value Reference Range Interpretation Comments SODIUM (BEAKER) 141 meq/L 136-145 (test code = 381) POTASSIUM (BEAKER) 5.8 meq/L 3.5-5.1 H (test code = 379) CHLORIDE (BEAKER) 107 meq/L 98-107 (test code = 382) CO2 (BEAKER) (test 21 meq/L 22-29 L code = 355) BLOOD UREA NITROGEN 23 mg/dL 7-21 H (BEAKER) (test code = 354) CREATININE (BEAKER) 1.79 mg/dL 0.57-1.25 H (test code = 358) GLUCOSE RANDOM 270 mg/dL 70-105 H (BEAKER) (test code = 652) CALCIUM (BEAKER) 9.9 mg/dL 8.4-10.2 (test code = 697) EGFR (BEAKER) (test 38 mL/min/1.73 ESTIMA XIAO GFR IS code = 1092) sq m NOT ACCURATE CREATININE CLEARANCE IN PREDICTING GLOMERULAR FILTRATION RATE . ESTIMATED GFR I S NOT APPLICABLE FOR DIALYSIS PATIEN TS. B-TYPE NATRIURETIC FACTOR (BNP)2017-07-13 00:39:00 Test Item Value Reference Range Interpretation Comments B-TYPE NATRIURETIC PEPTIDE (BEAKER) 890 pg/mL 0-100 H (test code = 700) CBC W/PLT COUNT & AUTO [id number] 00:16:00 Test Item Value Reference Range Interpretation Comments WHITE BLOOD CELL COUNT (BEAKER) 22.0 K/ L 3.5-10.5 H (test code = 775) RED BLOOD CELL COUNT (BEAKER) 4.88 M/ L 4.63-6.08 (test code = 761) HEMOGLOBIN (BEAKER) (test code = 14.8 GM/DL 13.7-17.5 410) HEMATOCRIT (BEAKER) (test code = 46.4 % 40.1-51.0 411) MEAN CORPUSCULAR VOLUME (BEAKER) 95.1 fL 79.0-92.2 H (test code = 753) MEAN CORPUSCULAR HEMOGLOBIN 30.3 pg 25.7-32.2 (BEAKER) (test code = 751) MEAN CORPUSCULAR HEMOGLOBIN CONC 31.9 GM/DL 32.3-36.5 L (BEAKER) (test code = 752) RED CELL DISTRIBUTION WIDTH 12.9 % 11.6-14.4 (BEAKER) (test code = 412) PLATELET COUNT (BEAKER) (test 277 K/CU MM 150-450 code = 756) MEAN PLATELET VOLUME (BEAKER) 10.6 fL 9.4-12.4 (test code = 754) NUCLEATED RED BLOOD CELLS 0 /100 WBC 0-0 (BEAKER) (test code = 413) NEUTROPHILS RELATIVE PERCENT 85 % (BEAKER) (test code = 429) LYMPHOCYTES RELATIVE PERCENT 8 % (BEAKER) (test code = 430) MONOCYTES RELATIVE PERCENT 4 % (BEAKER) (test code = 431) EOSINOPHILS RELATIVE PERCENT 1 % (BEAKER) (test code = 432) BASOPHILS RELATIVE PERCENT 1 % (BEAKER) (test code = 437) NEUTROPHILS ABSOLUTE COUNT 18.77 K/ L 1.78-5.38 H (BEAKER) (test code = 670) LYMPHOCYTES ABSOLUTE COUNT 1.76 K/ L 1.32-3.57 (BEAKER) (test code = 414) MONOCYTES ABSOLUTE COUNT (BEAKER) 0.80 K/ L 0.30-0.82 (test code = 415) EOSINOPHILS ABSOLUTE COUNT 0.28 K/ L 0.04-0.54 (BEAKER) (test code = 416) BASOPHILS ABSOLUTE COUNT (BEAKER) 0.15 K/ L 0.01-0.08 H (test code = 417) IMMATURE GRANULOCYTES-RELATIVE 0 % 0-1 PERCENT (BEAKER) (test code = 2801)"
[2021-10-17] MEDS ORDERED: LIDOCAINE 1% MPF 5 ML VIAL ONE (12:58)
[2021-10-17] MEDS ORDERED: BUPIVACAINE 0.5% PF 10 ML VIAL ONE (12:58)
--- NOTE | 2021-10-17 14:08 | ER ---
Nurse's Notes [facility] Name: Han Hyde Age: 71 yrs Sex: Male : 1950 Arrival Date: 10/17/2021 Time: 11:02 Bed 11 Private MD: Paula Guzman Diagnosis: Laceration without foreign body of right ring finger without damage to nail Presentation: 10/17 11:25 Chief complaint: Patient states: lac to rt 4th digit on metal. 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 last TD was 2016. Coronavirus screen: Vaccine status: Patient reports receiving the 2nd dose of the covid vaccine. Ebola Screen: Patient denies travel to an Ebola-affected area in the 21 days before illness onset. Initial Sepsis Screen: Does the patient meet any 2 criteria? No. Patient's initial sepsis screen is negative. Does the patient have a suspected source of infection? No. Patient's initial sepsis screen is negative. Risk Assessment: Do you want to hurt yourself or someone else? Patient reports no desire to harm self or others. Onset of symptoms was October 17, 2021. 11:25 Method Of Arrival: Ambulatory [facility] 11:25 Acuity: RAUL 4 6 Triage Assessment: 11:27 General: Appears in no apparent distress. well groomed, Behavior is calm, cooperative. 6 Pain: Complains of pain in palmar aspect of distal phalanx of right ring finger and palmar aspect of middle phalanx of right ring finger. Musculoskeletal: lac to 4th digit. Injury Description: Laceration sustained to dorsal aspect of distal phalanx of right ring finger, palmar aspect of distal phalanx of right ring finger and palmar aspect of middle phalanx of right ring finger. Historical: - Allergies: 11:26 Demerol; 6 11:26 Lisinopril; 6 11:26 Novocain; 6 11:26 Xarelto; 6 - PMHx: 11:26 CHF; pacemaker/defibrillator; [facility] - Immunization history:: Client reports receiving the 2nd dose of the Covid vaccine, Last tetanus immunization: up to date. - Social history:: Smoking status: Patient denies any tobacco usage or history of. Screenin:21 Abuse screen: Denies threats or abuse. Denies injuries from another. Nutritional ld1 screening: No deficits noted. Tuberculosis screening: No symptoms or risk factors identified. Fall Risk None identified. Vital Signs: 11:25 BP 133 / 68; Pulse 79; Resp 17; Temp 97.6; Pulse Ox 99% ; Weight 87.09 kg; Height 5 ft. jh6 4 in. (162.56 cm); Pain 3/10; 11:25 Body Mass Index 32.96 (87.09 kg, 162.56 cm) [facility] ED Course: 11:02 Patient arrived in ED. am2 11:03 Paula Guzman MD is Private Physician. am2 11:26 Triage completed. 6 12:00 [facility] 12:00 Rob Rosales MD is Attending Physician. kb 12:04 Marcel[facility] 12:04 Rob Rosales MD is Attending Physician. kb 12:39 Tamela Leon, RN is Primary Nurse. [facility] 12:43 Assist provider with laceration repair Set up tray. [facility] 12:43 Patient has correct armband on for positive identification. Bed in low position. Call [facility] light in reach. Adult w/ patient. 14:21 Patient did not have IV access during this emergency room visit. ld1 14:21 Arm band placed on right wrist. ld1 Administered Medications: 13:41 Drug: Bupivacaine (0.5 %) 1 vials {Note: Administered by FNP. David} Volume: ld1 10 ml; Route: Infiltration; 13:42 Drug: Lidocaine (1 %) 1 vials {Note: Administered by FNP. David} Volume: 5 ld1 ml; Route: Infiltration; Outcome: 14:07 Discharge ordered by . kb 14:21 Discharged to home ambulatory. ld1 14:21 Condition: stable 14:21 Discharge instructions given to patient, Instructed on discharge instructions, follow up and referral plans. Demonstrated understanding of instructions, follow-up care. 14:21 Patient left the ED. ld1 Signatures: Marcela Carpenter FNP-C FNP-Roselyn Haro [facility] Maddie Rangel am2 Alejandra Marin RN RN 1 Tamela Leon RN RN 5 Mary Grace Raza RN RN 6
--- NOTE | 2021-10-17 14:08 | EDPHYS ---
Physician Documentation [facility] Name: Han Hyde Age: 71 yrs Sex: Male : 1950 Arrival Date: 10/17/2021 Time: 11:02 Bed 11 Private MD: Paula Guzman ED Physician Rob Rosales HPI: 10/17 15:00 This 71 yrs old Male presents to ER via Ambulatory with complaints of Finger Injury. kb 15:00 The laceration(s) is(are) located on the palmar aspect of distal phalanx of right ring kb finger. Onset: The symptoms/episode began/occurred just prior to arrival. Associated signs and symptoms: The patient has no apparent associated signs or symptoms. The patient has not experienced similar symptoms in the past. The patient has not recently seen a physician. 15:01 The patient has a laceration related to: working with precision grinder external and accidentally cut pad kb of finger occurred at home, and there are no complicating factors. The injury was accidental. Historical: - Allergies: 11:26 Demerol; 6 11:26 Lisinopril; 6 11:26 Novocain; 6 11:26 Xarelto; [facility] - PMHx: 11:26 CHF; pacemaker/defibrillator; [facility] - Immunization history:: Client reports receiving the 2nd dose of the Covid vaccine, Last tetanus immunization: up to date. - Social history:: Smoking status: Patient denies any tobacco usage or history of. ROS: 14:57 Constitutional: Negative for fever, chills, and weight loss. kb 14:57 Skin: Positive for laceration(s), of the palmar aspect of distal phalanx of right ring finger. 14:57 All other systems are negative. Exam: 14:58 Constitutional: This is a well developed, well nourished patient who is awake, alert, kb and in no acute distress. Head/Face: Normocephalic, atraumatic. ENT: Moist Mucous membranes Cardiovascular: Regular rate and rhythm with a normal S1 and S2. No gallops, murmurs, or rubs. No pulse deficits. Respiratory: Respirations even and unlabored. No increased work of breathing. Talking in full sentences MS/ Extremity: Pulses equal, no cyanosis. Neurovascular intact. Full, normal range of motion. Neuro: Awake and alert, GCS 15, oriented to person, place, time, and situation. Moves all extremities. Normal gait. Psych: Awake, alert, with orientation to person, place and time. Behavior, mood, and affect are within normal limits. 14:58 Skin: injury, laceration(s), the wound is approximately 6 cm(s), of the palmar aspect of distal phalanx of right ring finger. Vital Signs: 11:25 BP 133 / 68; Pulse 79; Resp 17; Temp 97.6; Pulse Ox 99% ; Weight 87.09 kg; Height 5 ft. jh6 4 in. (162.56 cm); Pain 3/10; 11:25 Body Mass Index 32.96 (87.09 kg, 162.56 cm) 6 Procedures: 13:12 Nerve block: (digital) of palmar aspect of proximal phalanx of right ring finger kb Medication: Lidocaine 1% without epinephrine Marcaine 0.5%, Amount: 5 mls were injected, Effect: the patient has resolution of the pain, Set up for procedure. Performed by Marcela VAUGHAN Patient tolerated well. Laceration: 14:06 Wound Repair of 6cm ( 2.4in ) subcutaneous laceration to palmar aspect of distal kb phalanx of right ring finger. Irregularly shaped.. Skin/tissue flap noted.. Distal neuro/vascular/tendon intact. Anesthesia: Digital block administered with 1% lidocaine. Wound prep: Extensive cleansing with hibiclenz by nurse, Wound irrigation with saline by nurse. Skin closed with 10 5-0 Prolene using simple sutures and sterile technique. Patient tolerated well. MDM: 12:04 Patient medically screened. kb 13:13 Data reviewed: vital signs, nurses notes. Data interpreted: Pulse oximetry: on room air kb is 99 %. Interpretation: normal. 14:57 Counseling: I had a detailed discussion with the patient and/or guardian regarding: the kb historical points, exam findings, and any diagnostic results supporting the discharge/admit diagnosis, the need for outpatient follow up, a family practitioner, to return to the emergency department if symptoms worsen or persist or if there are any questions or concerns that arise at home. 10/17 12:26 Order name: Dressing - Wound; Complete Time: 13:41 kb 10/17 12:26 Order name: Gloves, Sterile; Complete Time: 12:42 kb 10/17 12:26 Order name: Prolene, Sutures; Complete Time: 12:42 kb 10/17 12:26 Order name: Setup Suture Tray; Complete Time: 12:42 kb Administered Medications: 13:41 Drug: Bupivacaine (0.5 %) 1 vials {Note: Administered by FNP. David} Volume: ld1 10 ml; Route: Infiltration; 13:42 Drug: Lidocaine (1 %) 1 vials {Note: Administered by FNP. David} Volume: 5 ld1 ml; Route: Infiltration; Disposition: 17:47 Co-signature as Attending Physician, Rob Rosales MD. rn Disposition Summary: 10/17/21 14:07 Discharge Ordered Location: Home kb Condition: Stable kb Diagnosis - Laceration without foreign body of right ring finger without damage to nail kb Followup: kb - With: Emergency Department - When: As needed - Reason: Worsening of condition Followup: kb - With: Private Physician - When: 2 - 3 days - Reason: Recheck today's complaints, Continuance of care, Re-evaluation by your physician Discharge Instructions: - Discharge Summary Sheet kb - Laceration Care, Adult, [id number] kb Forms: - Medication Reconciliation Form kb - Thank You Letter kb - Antibiotic Education kb - Prescription Opioid Use kb Signatures: Marcela Carpenter FNP-C FNP-Rob Peralta MD MD rn Dibbern, Lauren RN RN ld1 Mary Grace Raza RN RN jh6
[2021-10-17 14:26] VITALS: BP 133/68; TEMP 97.6; O2SAT 99
== END 2021-10-17 14:21 | disposition home or self-care (01) ==
LOC: ER 10:54
PROC: 0JQJ0ZZ Repair Right Hand Subcutaneous Tissue and Fascia, Open Approach (ICD-10-PCS; principal; 2021-10-17)
DX: S61.214A Laceration without foreign body of right ring finger without damage to nail, initial encounter (principal); W31.89XA Contact with other specified machinery, initial encounter; Y92.009 Unspecified place in unspecified non-institutional (private) residence as the place of occurrence of the external cause; I50.9 Heart failure, unspecified; Z95.810 Presence of automatic (implantable) cardiac defibrillator; Z79.01 Long term (current) use of anticoagulants; Z88.6 Allergy status to analgesic agent; Z88.8 Allergy status to other drugs, medicaments and biological substances
CPT/HCPCS: 64450; 99283

== ENCOUNTER 2021-12-09 12:54 | Observation (INO) | payer OTHER ==
--- OUTSIDE RECORDS SUMMARY | 2021-12-09 12:59 | XMS REPORT | Continuity of Care Document ---
:1950 Author Organization [facility] t Address [address] [place]. [address] [place] [address] Care Team Providers Name Role Phone Logan COLEMAN Primary Care Physician Asif Guzman Attending Clinician Unavailable JOSSLEINE Attending Clinician Unavailable SHANEL Attending Clinician Unavailable [...] Univers shoulder shoulder ity of pain pain [place] Physici ans Traumatic Traumatic Problem Active Uni vers rotator rotator ity of cuff tear, [place], [place] left, left, Physici initial initial ans encounter encounter Calcific Calcific Problem Active Unive rs tendinitis tendinitis it y of of left of left [place] shoulder shoulder Physic i ans Cardiac Cardiac Problem Active Univers defibrilla defibrilla it y of tor in tor in [place] place place Physici ans Strain of Strain of Problem Active Uni vers left left ity of biceps, biceps, [place] initial initial Physici encounter encounter ans Subacromia [...] BAN 0-26 [facility]: Medical 00 Serena Demerol Allergy Active Univers SOLN to drug ity of (finding [place] ) Physici ans lisinopr Allergy Active Univers il to drug ity of (finding [place] ) Physici ans Xarelto Allergy Active Univers TABS to drug ity of (finding [place] ) Physici ans Social History Social Habit Start Date Stop Date Quantity Comments Source Exposure to SARS-CoV-2 Not sure [facility] (event) Sex Assigned At [birth year] [facility] 00:00:00 00:00:00 Smoking Status Start Date Stop Date Source Tobacco smoking consumption unknown [facility] Medications Ordered Filled Start Stop Current Ordering [...] UNTIL FASTING SUGAR LESS THAN 120 HYDROcodone HYDROcodone Yes SALVADOR 1-2 PO Q 6 Univers -Acetaminop -Acetaminop 5-06 MANJARREZ M.D. HRS PRN ity of hen 5-325 hen 5-325 00:00: PAIN Nate as MG Oral MG Oral 00 Physici Tablet Tablet ans HYDROcodone Yes 1-2 PO Q 6 UT -acetaminop 5-06 HRS PRN Healt h hen ([place]) 00:00: PAIN 5-325 MG 00 tablet HYDROcodone 0 Yes 1-2 PO Q 6 UT -acetaminop 5-06 HRS PRN Healt h hen ([place]) 00:00: PAIN 5-325 MG 00 tablet HYDROcodone 2021-0 Yes 1-2 PO Q 6 UT -acetaminop 5-06 HRS PRN Healt h hen ([place]) 00:00: PAIN 5-325 MG 00 tablet HYDROcodone 2020-0 Yes 1-2 PO Q 6 UT -acetaminop 5-06 HRS PRN Healt h hen ([place]) 00:00: PAIN 5-325 MG 00 tablet Eliquis 5 2020-0 Yes 5mg Q.5D Take [...] pen-injecto (one) time r per week. tiZANidine 2020-0 Yes 2mg QD Take 2 [...] TAKE 3 UT jassi 9-03 TABLETS BY [employer] (Reglan) 10 00:00: MOUTH MG tablet 00 DIRECTED USE DIRECTED PER YOUR COLONOSCOP Y PREP PACKET metoclopram Yes TAKE 3 UT jassi 9-03 TABLETS BY [employer] (Reglan) 10 00:00: MOUTH MG tablet 00 DIRECTED USE DIRECTED PER YOUR COLONOSCOP Y PREP PACKET metoclopram 2019- Yes TAKE 3 UT jassi 9-03 TABLETS BY Health (Reglan) 10 00:00: MOUTH MG tablet 00 DIRECTED USE DIRECTED PER YOUR COLONOSCOP Y PREP PACKET metoclopram 0 Yes TAKE 3 UT jassi 9-03 TABLETS BY [employer] (Reglan) 10 00:00: MOUTH MG tablet 00 DIRECTED USE DIRECTED PER YOUR COLONOSCOP Y PREP PACKET Ozempic Ozempic 2019- No Elizabeth as [facility] [place] directed [facility] Tresiba 2019-0 2019- No Elizabeth [address] FlexTouch FlexTouch [...] Elizabeth [address] [facility] [place] [facility] Amiodarone Amiodarone 2017-0 Yes Elizabeth [address] HCl HCl 2-20 [place] [facility] Bumetanide Bumetanide 2017-0 Yes Elizabeth as [facility] 2[facility]20 [place] directed [facility] sacubitril- 2016-09 Yes Comments: U T valsartan 2-21 | Filled Health ([email or web address]) 00:00: Date: Jan 08 MG 2017 tablet 12:00AM | Patient Notes: TAKE 1 TABLET BY MOUTH 2 (TWO) TIMES DAILY. Duration: 30 aspirin 81 2016-09 Yes 81mg QD Take 81 mg U T MG EC 2-21 by mouth 1 Health tablet 00:00: (one) time 00 each day. sacubitril- 2016-09 Yes Comments: U T valsartan 2-21 | Filled Health ([email or web address]) 00:00: Date: Jan 08 MG 2017 tablet [...] Carvedilol Yes Elizabeth as [facility] Crestor Crestor Yes Elizabeth [address] [facility] [facility] Nitroglycer Nitroglycer Yes Elizabeth not [facility] in [facility] [place] defined [facility] Tricor Tricor Yes Elizabeth [address] [place] with food [facility] Albuterol Albuterol Yes Elizabeth 3 ml as [facility] Sulfate Sulfate [place] needed [facility] Eliquis Eliquis Yes Elizabeth [address] [facility] [facility] Entresto Entresto Yes Elizabeth one [facility] 97/103mg 97/103mg [place] [facility] Glimepiride Glimepiride Yes Elizabeth TAKE [address] [facility] [facility] [place] TABLET AT [facility] - BEDTIME [facility] Lancets Lancets Yes Elizabeth one [facility] Super Thin Super Thin [place] [facility] Glucometer Glucometer Yes Elizabeth one [facility] Aspir-81 Aspir-81 Yes Elizabeth [address] [place] kes - [facility] ent Clinics NovoFine NovoFine Yes Elizabeth as [facility] Plus Plus [place] directed [facility] ent [facility] Immunizations Ordered Filled Immunization Date Status Comments [facility] e Immunization Name Name Covid-19 Moderna 2020-12-04 [...] 2019-06-[address] [facility] [facility]00 [facility] Influenza, 2018-05-24 [facility] injectable, MDCK, 00:00:00 preservative free, quadrivalent Influenza, 2018-05-24 Completed [facility] injectable, MDCK, 00:00:00 preservative free, quadrivalent Influenza, 2018-05-24 Completed [facility] injectable, MDCK, 00:00:00 preservative free, quadrivalent Influenza, 2018-05-24 Completed [facility] injectable, MDCK, 00:00:00 preservative free, quadrivalent Influenza, 2017-07-05 Completed [facility] seasonal, 00:00:00 injectable, preservative free Influenza, 2017-07-05 Completed [facility] seasonal, 00:00:00 injectable, preservative free Influenza, 2017-07-05 Completed [facility] seasonal, 00:00:00 injectable, preservative free Influenza, 2017-07-05 Completed [facility] seasonal, 00:00:00 injectable, preservative free Vital Signs Vital Name Observation Time Observation Value Comments Source Systolic blood 2020-10-07 10:03:00 119 mm[Hg] [facility] pressure Physicians Diastolic blood 2020-10-07 10:03:00 63 mm[Hg] [facility] pressure Physicians Heart Rate 2020-10-07 10:03:00 95 /min [facility] Physicians Procedures Procedure Date / Time Performed Performing Clinician Sour e [UTP] Ortho - Surgery 2020-12-30 00:00:00 [facility] Scheduling Physicians [MMD] XRAY Chest 2 2020-11-17 00:00:00 [facility] Views Physicians XRAY Chest 2 views 2020-11-17 00:00:00 [facility] [id number] Physicians MR Shoulder wo 2020-10-07 00:00:00 [facility] contrast 74388 Physicians Plan of Care Planned Activity Planned Date Details Comments Source Diagnostic Test 2020-12-30 [UTP] Ortho - [facility] Pending 00:00:00 Surgery Scheduling Physician s [code = [UTP] Ortho - Surgery Scheduling] Diagnostic Test 2020-10-07 MR Shoulder wo [facility] Pending 00:00:00 contrast 56610 [code Physici ans = [id number]] Diagnostic Test 2020-10-07 MR Shoulder wo [facility] Pending 00:00:00 contrast 07195 [code Physici ans = [id number]] Encounters Start End Encounter Admission Attending Care Care Encounter Source Date/Time Date/Time Type Type Clinicians Facility Department ID 2021-10-12 Outpatient Guzman, Paula STLMLC STLMLC [id number] 14:23:13 [id number] [facility] 2021-10-12 Outpatient Guzman, Na STLMLC STLMLC [id number] 13:26:20 [id number] [facility] 2021-10-12 Outpatient Guzman, Na STLMLC STLMLC [id number] 13:26:05 [id number] [facility] 2021-10-12 Outpatient Guzman, Na STLMLC STLMLC [id number] 12:49:48 [id number] [facility] 2021-10-12 Outpatient Guzman, Na STLMLC STLMLC [id number] 12:43:40 [id number] [facility] 2021-10-12 Outpatient Guzman, Na STLMLC STLMLC [id number] 12:18:20 [id number] [facility] 2021-10-12 Outpatient Guzman, Na STLMLC STLMLC [id number] 11:46:50 [id number] [facility] 2021-10-12 Outpatient Guzman, Na STLMLC STLMLC [id number] 11:29:53 [id number] [facility] 2021-10-12 Outpatient Guzman, Na STLMLC STLMLC [id number] 11:29:29 [id number] [facility] 2021-10-12 Outpatient Guzman, Na STLMLC STLMLC [id number] 11:27:56 [id number] [facility] 2021-05-11 Preadmit nullFlavo [facility] [id number] [place] mor[place] 14:32:37 r asif [facility] 2021-03-04 Outpatient [place], [facility] [id number] [place] 09:15:15 [facility] 2021-02-20 Outpatient [place], [facility] [id number] [place] 01:03:31 [facility] 2021-02-02 Outpatient T[place], [facility] [id number] [place] 13:56:34 NICHOLETTE [facility] 2021-02-02 Outpatient UTH [facility] [id number] [place] 13:55:48 [facility] 2021-01-26 Outpatient [facility] [id number] [place] 10:48:01 [facility] 2021-01-22 Outpatient JOSSELINE, [facility] [id number] [place] 04:11:18 [facility] 2021-10-27 2021-10-27 ambulatory STLMLC STLMLC [id number] [facility] 2021-10-13 2021-10-13 Outpatient ANGELICA, [facility] [id number] [place] 00:00:00 00:00:00 IMAD [address] 2021-10-13 2021-10-13 Outpatient ANGELICA, [facility] [id number] [place] 00:00:00 00:00:00 IMAD [address] 2021-10-13 2021-10-13 Outpatient ANGELICA, [facility] [id number] [place] 00:00:00 00:00:00 IMAD [address] 2021-09-21 2021-09-21 Outpatient ANGELICA, [facility] [id number] [place] 00:00:00 00:00:00 IMAD [address] 2021-08-30 2021-08-30 ambulatory STLMLC STLMLC [id number] [facility] 2021-08-30 2021-08-30 ambulatory STLMLC STLMLC [id number] [facility] 2021-06-06 2021-06-06 Outpatient STLMLC STLMLC [id number] [facility] 2021-05-11 2021-05-11 Outpatient ANGELICA, [facility] [id number] [place] 00:00:00 00:00:00 IMAD [address] 2021-05-03 2021-05-03 Outpatient STLMLC STLMLC [id number] [facility] 2021-04-13 2021-04-13 Outpatient ANGELICA [facility] [id number] [place] 00:00:00 00:00:00 IMAD [address] 2021-04-13 2021-04-13 Outpatient ANGELICA [facility] [id number] [place] 00:00:00 00:00:00 IMAD [address] 2021-04-02 2021-04-02 Outpatient STLMLC STLMLC [id number] [facility] 2021-03-29 2021-03-29 Outpatient STLMLC STLMLC [id number] [facility] 2021-03-24 2021-03-24 Outpatient [facility] [id number] [place] 00:00:00 00:00:[address] 2021-03-24 2021-03-24 Outpatient STLMLC STLMLC [id number] [facility] 2021-03-24 2021-03-24 Outpatient STLMLC [facility] [id number] [facility] 2021-03-16 2021-03-21 Inpatient FABIOLA [facility] [id number] 26 [place] 00:00:00 00:00:00 ASMA [address] 2021-03-17 2021-03-17 EXT [facility] OP Antoni, EXT MSRDP [id number] 00:00:00 00:00:00 Brandt Gao LOCATION [id number] Health [id number] [id number] 2021-03-04 2021-03-04 Office Ty, UTP ORTHO [id number] [place] 13:35:44 14:05:44 Visit Nicholette SUGAR [id number] Health LAND 9.2.7.2.686 [id number] 1 2021-03-04 2021-03-04 Office Ty, UTP ORTHO [id number] [id number] 13:35:44 14:05:44 Visit Yuridiate SUGAR [id number] LAND 9.2.7.2.686 [id number] 2021-03-02 2021-03-02 Outpatient ANGELICA [facility] [id number] [place] 00:00:00 00:00:00 IMAD [address] 2021-02-02 2021-02-02 Office BILLY Manjarrez ORTHO [id number] [place] 13:52:06 14:20:28 Visit Salvador SUGAR [id number] He alth LAND 9.2.7.2.686 [id number] 1 2021-02-02 2021-02-02 Office ManjarrezBILLY ORTHO [id number] [id number] 13:52:06 14:20:28 Visit Salvador SUGAR [id number] LAND [id number] [id number] 2021-01-31 2021-01-31 Outpatient SUZETTE, [facility] [id number] [place] 00:00:00 00:00:00 SERA [address] 2021-01-20 2021-01-20 Outpatient JOSSELINE ANNA MHFB [id number] 12:07:00 17:40:00 SALVADOR 2021-01-20 2021-01-20 [facility] BILLY MANJARREZ Orthopedics [id number] [facility] 13:00:00 13:00:00 t; SALVADOR MANJARREZ, - Sugar ity of Paige FRANCO [address] Paige Physici ans 2021-01-14 2021-01-[address] [id number] 2021-01-13 2021-01-13 Outpatient STLC STLC [id number] [facility] 2021-01-03 2021-01-03 Outpatient STLM STLC [id number] [facility] 2020-12-30 2020-12-30 Appointmen JOSSELINE [facility] Orthopedics [id number] [facility] 09:30:00 09:30:00 t; SALVADOR MANJARREZ, - Sugar ity Pa[place] Xiao 1 [place] Paige Physici ans 2020-12-21 2020-12-21 Outpatient MANJARREZ, [facility] [id number] 466 [place] 00:00:00 00:00:00 SALVADOR [address] 2020-12-21 2020-12-21 Outpatient CONSTANTINO, [facility] [id number] [place] 00:00:00 00:00:00 NADIM [address] 2020-12-21 2020-12-21 Outpatient MANJARREZ, [facility] [id number] [place] 00:00:00 00:00:00 SALVADOR [address] 2020-12-21 2020-12-21 Outpatient CONSTANTINO, [facility] [id number] [place] 00:00:00 00:00:00 NADIM [address] 2020-12-21 2020-12-21 Outpatient STLMLC STLMLC [id number] [facility] 2020-10-07 2020-10-07 Appointmen JOSSELINE [facility] Orthopedics [id number] [facility] 09:30:00 09:30:00 t; SALVADOR MANJARREZ, - [place] [facility] [facility] [facility] 2020-09-23 2020-09-23 Outpatient STLMLC STLMLC [id number] [facility]00 [facility] 2020-08-04 2020-08-04 Outpatient ANGELICA, [facility] [id number] 1938 [place] 00:00:00 00:00:00 IMAD [address] 2020-06-03 2020-06-03 [facility] [id number] 09:00:00 09:00:00 t Specialty/U Edith [facility] Outpat[facility] ent Clinics 2020-05-06 2020-05-06 Outpatient BOB, [facility] [id number] 360 [place] 00:00:00 00:00:00 JW [address] 2020-04-28 2020-04-28 Outpatient ANGELICA, [facility] [id number] [place] 00:00:00 00:00:00 IMAD [address] 2020-03-31 2020-03-31 Outpatient ANGELICA, [facility] [id number] [place] 00:00:00 00:00:00 IMAD [address] 2020-03-31 2020-03-31 Outpatient ANGELICA, [facility] [id number] [place] 00:00:00 00:00:00 IMAD [address] 2020-03-23 2020-03-23 [facility] [id number] 08:20:00 08:20:00 [facility] 2020-03-17 2020-03-17 Outpatient ANGELICA, [facility] [id number] [place] 00:00:00 00:00:00 IMAD [address] 2020-03-17 2020-03-17 Outpatient ANGELICA, [facility] [id number] [place] 00:00:00 00:00:00 IMAD [address] [facility] 2020-03-08 2020-03-08 Out[facility] [id number] [facility] 10:55:00 10:55:00 [facility] Outpati ent Clinics 2020-02-20 2020-02-20 Outpatient ANGELICA, [facility] [id number] [place] 00:00:00 00:00:00 IMAD [address] 2020-02-19 2020-02-19 Outpatient ANGELICA, [facility] [id number] [place] 00:00:00 00:00:00 IMAD [address] 2020-01-30 2020-01-30 Outpatient SUZETTE, [facility] [id number] [place] 00:00:00 00:00:00 SERA [address] 2020-01-28 2020-01-29 Outpatient ANGELICA, [facility] [id number] [place] 00:00:00 00:00:00 IMAD [address] 2019-12-03 2019-12-03 [facility] [id number] 11:15:00 11:15:00 t Slaton Slaton CRAVE Luke s - Drive [facility] Outpat[facility] Clinics 2019-06-12 2019-06-12 [facility] [id number] 15:20:00 15:20:00 t Slaton Sl[place] CRAVE [employer] s - Drive [facility] Clin[facility] 2018-12-27 2018-12-27 [facility] [id number] 13:00:00 13:00:00 t Slaton Sl[place] CRAVE [employer] s - Drive [facility] Medicine Medicine Outpati ent Clinics 2018-12-17 2018-12-17 [facility] [id number] 11:09:00 11:09:00 t Slaton Slaton CRAVE [employer] s - Drive [facility] Out[facility] Clinics 2018-12-01 2018-12-01 [facility] [id number] 21:22:00 21:22:00 t Slaton Slaton VNG s - Drive [facility] Medicine Medicine Outpati ent Clinics 2018-10-28 2018-10-28 [facility] [id number] 15:53:00 15:53:00 t Slaton Slaton VNG s - Drive [facility] Clin[facility] 2018-09-26 2018-09-26 [facility] [id number] 10:45:00 10:45:00 t Slaton Slaton CRAVE [employer] s - Drive [facility] Clin[facility] 2018-08-05 2018-08-05 [facility] [id number] 08:30:00 08:30:00 t Slaton Slaton VNG s - Drive [facility] 2018-05-06 2018-05-06 [facility] [id number] 09:15:00 09:15:00 t Slaton Slaton VNG s - Drive [facility] Results Test Description Test Time Test Comments Results Result Comments Source SARS-CoV-2 (COVID-19) RNA [Presence] in Respiratory sp ecimen by 2021-03-17 02:14:28 SUMANTH with probe detection Test Item Value Reference Range Interpretation Comme nts SARS-CoV-2 (COVID-19) RNA [Presence] in Respiratory Not detected No t-Detected specimen by SUMANTH with probe detection (test code = 12789-5) Whether patient is employed in a healthcare setting (test code = 56517-2) Whether the patient has symptoms related to condition of interest (test code = 68292-9) Patient was hospitalized because of this condition (test code = 14664-5) Whether the patient was admitted to intensive care unit (ICU) for condition of interest (test code = 85946-8) Whether patient resides in a congregate care setting (test code = 79088-5) IMMUNOFIXATION ELECTROPHORESIS (ANAND)2018-03-22 09:59:00 Test Item Value Reference Range Interpretation Comments IMMUNOGLOBULIN G (IGG) 944 mg/dL 540-1822 (BEAKER) (test code = 427) IMMUNOGLOBULIN A (IGA) 137 mg/dL 63-484 (BEAKER) (test code = 639) IMMUNOGLOBULIN M (IGM) 41 mg/dL 22-293 (BEAKER) (test code = 638) SERUM ANAND ID (BEAKER) No monoclonal (test code = 1814) proteins detected. Polyclonal distribution of immunoglobulins. [id number] Angely Santos, (BEAKER) (test code = (electronic 4757) signature) PROTEIN ELECTROPHORESIS, [id number] 16:21:00 Test Item Value Reference Range Interpretation [...] in (BEAKER) (test code = expected distribution. 0431) No monoclonal bands detected. No significant change from previous study performed 12-13-17. [id number] Angely Santos MD (BEAKER) (test code = (electronic signature) 1342) PROTEIN TOTAL SERUM, 6.4 gm/dL 6.0-8.3 SPEP (BEAKER) (test code = 6139) TSH/FREE T4 IF [id number] 09:28:00 Test Item Value Reference Range Interpretation Comments THYROID STIMULATING HORMONE 3.29 uIU/mL 0.35-4.94 (BEAKER) (test code = 772) B-TYPE NATRIURETIC FACTOR (BNP)2018-03-15 09:11:00 Test Item Value Reference Range Interpretation Comments B-TYPE NATRIURETIC PEPTIDE (BEAKER) 641 pg/mL 0-100 H (test code = 700) LIPID [id number] 09:05:00 Test Item Value Reference Range Interpretation [...] 130-159 High 160-189 Very High >=190BASIC METABOLIC [id number] 09:05:00 Test Item Value Reference Range Interpretation Comments SODIUM (BEAKER) 137 meq/L 136-145 (test code = 381) POTASSIUM (BEAKER) 4.7 meq/L 3.5-5.1 (test code = 379) CHLORIDE (BEAKER) 104 meq/L 98-107 (test code = 382) CO2 (BEAKER) (test 29 meq/L - code = 355) BLOOD UREA NITROGEN 21 [...] APPLICABLE FOR DIALYSIS PATIEN TS. HEPATIC FUNCTION [id number] 09:05:00 Test Item Value Reference Range Interpretation [...] 6-55 347) CBC W/PLT COUNT & AUTO [id number] 09:02:00 Test Item Value Reference Range Interpretation [...] PERCENT (BEAKER) (test code = 2801) HEMOGLOBIN [id number] 12:30:00 Test Item Value Reference Range Interpretation Comments HEMOGLOBIN A1C (BEAKER) (test code = 6.3 % 4.3-6.1 H 368) ALKALINE [id number] 10:37:00 Test Item Value Reference Range Interpretation Comments ALKALINE PHOSPHATASE (BEAKER) (test 43 U/L 40-150 code = 346) [id number] 10:37:00 Test Item Value Reference Range Interpretation Comments POTASSIUM (BEAKER) (test code = 5.6 meq/L 3.5-5.1 H 379) [id number] 10:37:00 Test Item Value Reference Range Interpretation Comments MAGNESIUM (BEAKER) (test code = 1.9 mg/dL 1.6-2.6 627) [id number] 10:37:00 Test Item Value Reference Range Interpretation Comments SODIUM (BEAKER) (test code = 381) 137 meq/L 136-145 AST (SGOT)2017-12-21 10:37:00 Test Item Value Reference Range Interpretation Comments AST (SGOT) (BEAKER) (test code = 353) 24 U/L 5-34 ALT (SGPT)2017-12-21 10:37:00 Test Item Value Reference Range Interpretation Comments ALT (SGPT) (BEAKER) (test code = 347) 23 U/L 6-55 BILIRUBIN, ADULT [id number] 10:37:00 Test Item Value Reference Range Interpretation Comments BILIRUBIN TOTAL (BEAKER) (test code 0.3 mg/dL 0.2-1.2 = 377) BILIRUBIN, [id number] 10:37:00 Test Item Value Reference Range Interpretation Comments BILIRUBIN DIRECT (BEAKER) (test 0.2 mg/dL 0.1-0.5 code = 706) [id number] 10:37:00 Test Item Value Reference Range Interpretation Comments CHLORIDE (BEAKER) (test code = 382) 102 meq/L 98-107 CREATINE KINASE (CK)2017-12-21 10:37:00 Test Item Value Reference Range Interpretation Comments CREATINE KINASE TOTAL (BEAKER) (test 166 U/L 29-200 code = 380) LACTATE DEHYDROGENASE (LDH)2017-12-21 10:37:00 Test Item Value Reference Range Interpretation Comments LACTATE DEHYDROGENASE (BEAKER) (test 223 U/L 125-220 H code = 635) BUN AND [id number] 10:37:00 Test Item Value Reference Range Interpretation [...] 1814) proteins detected. Polyclonal distribution of immunoglobulins. [id number] Angely Santos, ([facility]) (test code = (electronic 8833) signature) PROTEIN ELECTROPHORESIS, [id number] 15:31:00 Test Item Value Reference Range Interpretation [...] code = 391) INTERPRETATION-119 All fractions present (BEAKER) (test code = in expected 2613) distribution. No monoclonal bands detected. [id number] Angely Santos MD ([facility]) (test code = (electronic signature) 6855) PROTEIN TOTAL SERUM, 6.4 gm/dL 6.0-8.3 SPEP (BEAKER) (test code = 2660) [id number] 15:30:00 Test Item Value Reference Range Interpretation Comments POTASSIUM (BEAKER) (test code = 5.4 meq/L 3.5-5.1 H 379) TSH/FREE T4 IF [id number] 12:17:00 Test Item Value Reference Range Interpretation Comments THYROID STIMULATING HORMONE 3.18 uIU/mL 0.35-4.94 (BEAKER) (test code = 772) BASIC METABOLIC [id number] 12:02:00 Test Item Value Reference Range Interpretation [...] = 700) CBC W/PLT COUNT & AUTO [id number] 11:36:00 Test Item Value Reference Range Interpretation [...] PERCENT (BEAKER) (test code = 2801) HEMOGLOBIN [id number] 12:52:00 Test Item Value Reference Range Interpretation Comments HEMOGLOBIN A1C (BEAKER) (test code = 7.9 % 4.3-6.1 H 368) TSH/FREE T4 IF [id number] 12:22:00 Test Item Value Reference Range Interpretation Comments THYROID STIMULATING HORMONE 2.15 uIU/mL 0.35-4.94 (BEAKER) (test code = 772) B-TYPE NATRIURETIC FACTOR (BNP)2017-09-06 11:57:00 Test Item Value Reference Range Interpretation Comments B-TYPE NATRIURETIC PEPTIDE (BEAKER) 364 pg/mL 0-100 H (test code = 700) URIC [id number] 11:55:00 Test Item Value Reference Range Interpretation Comments URIC ACID (BEAKER) (test code = 6.6 mg/dL 2.6-7.2 773) [id number] 11:55:00 Test Item Value Reference Range Interpretation Comments MAGNESIUM (BEAKER) (test code = 1.6 mg/dL 1.6-2.6 627) BASIC METABOLIC [id number] 11:55:00 Test Item Value Reference Range Interpretation [...] NOT APPLICABLE FOR DIALYSIS PATIEN TS. LIPID [id number] 11:55:00 Test Item Value Reference Range Interpretation [...] 130-159 High 160-189 Very High >=190HEPATIC FUNCTION [id number] 11:55:00 Test Item Value Reference Range Interpretation [...] (test code = 13 U/L 6-55 347) [id number] 11:51:00 Test Item Value Reference Range Interpretation Comments PREALBUMIN (BEAKER) (test code = 29 mg/dL 14-45 586) PROTHROMBIN [id number] 11:41:00 Test Item Value Reference Range Interpretation [...] (test code = 2801) RAD, BONE DENSITY [id number] 09:58:00Reason for exam:->heart transplant evaluation. screening for osteoporosisShould this be performedat the bedside?->NoFINAL REPORT Technique: Bone mineral density of the lumbar spine and both femoral necks performed on 08/16/2017 Clinical History: Osteopenia screening. Comparison: None Bone mineral density measurementLumbar spine1.382 gm/su3Gkro Femoral neck1.157 gm/vn2Jcsfx Femoral neck1.120gm/cm2 Standard deviation from young adult [...] greater than 2.5 standard deviations Signed: Phyllis Langeeport Verified Date/Time: 08/16/2017 09:58:30 Reading Location: [facility] Radiology Reading Room [id number] 12:15:00 Test Item Value Reference Range Interpretation Comments MAGNESIUM (BEAKER) (test code = 1.2 mg/dL 1.6-2.6 L 627) BASIC METABOLIC [id number] 12:15:00 Test Item Value Reference Range Interpretation [...] = 700) FLOW PRA CLASS I AND [id number] 11:17:00 Test Item Value Reference Range Interpretation Comments DATE OF SERUM (BEAKER) 211319 (test code = 2289) SERUM # (BEAKER) (test 319245 code = 2290) FLOW PRA CLASS I AND II See Scanned Report (test code = 2421) HLA [id number] 07:15:00 Test Item Value Reference Range Interpretation [...] (test code = 2583) HERPES VIRUS ANTIBODY, [id number] 14:18:00 Test Item Value Reference Range Interpretation Comments HERPES VIRUS IGM Negative HSV 1 IGM = NEGHSV 2 (BEAKER) (test code = IGM = NEG 1808) TOXOPLASMA GONDII ANTIBODY, [id number] 14:18:00 Test Item Value Reference Range Interpretation Comments TOXOPLASMA IGM ANTIBODY (BEAKER) Negative (test code = 742) PROTEIN ELECTROPHORESIS, [id number] 09:23:00 Test Item Value Reference Range Interpretation [...] of all clinical and laboratory data available. [facility] Test perform ed T-119 (BEAKER) and interpret ed (test code = by [employer] [facility] 2616) [place] Labs. PROTEIN TOTAL 6.7 gm/dL 6.0-8.5 RR: 6.1-8.1 g/ dL SERUM, SPEP (BEAKER) (test code = 2660) URINE PROTEIN ELECTROPHORESIS, [id number] 08:49:00 Test Item Value Reference Range Interpretation Comments PROTEIN, URINE 12 mg/dL 0-14 (BEAKER) (test code = 1569) ALBUMIN URINE ELP 33.0 % (BEAKER) (test code = 1018) GAMMA GLOBULIN 67.0 % URINE (BEAKER) (test code = 1015) UPEP, ID-438 Pattern consistent (BEAKER) (test with mixed code = 2604) glomerular and tubular proteinuria. [facility]- Test perfo rmed and 438 (BEAKER) interpreted by (test code = [employer] [place] 2605) [place] L abs. POCT-GLUCOSE [id number] 17:07:00 Test Item Value Reference Range Interpretation Comments POC-GLUCOSE METER 283 mg/dL 70-110 H TESTED AT [facility] 6720 (BEAKER) (test code = DOUGLAS Peña [facility] 1538) [address] POCT-GLUCOSE [id number] 12:48:00 Test Item Value Reference Range Interpretation Comments POC-GLUCOSE METER 148 mg/dL 70-110 H TESTED AT [facility] 6720 (BEAKER) (test code = DOUGLAS Peña [facility] 1538) [address] POCT-GLUCOSE [id number] 07:37:00 Test Item Value Reference Range Interpretation Comments POC-GLUCOSE METER 154 mg/dL 70-110 H TESTED AT [facility] 6720 (BEAKER) (test code = DOUGLAS Peña [facility] 1538) [address] [id number] 07:11:00 Test Item Value Reference Range Interpretation Comments MAGNESIUM (BEAKER) (test code = 1.5 mg/dL 1.6-2.6 L 627) BASIC METABOLIC [id number] 07:11:00 Test Item Value Reference Range Interpretation [...] 697) EGFR (BEAKER) (test 65 mL/min/1.73 ESTIMA XIAO GFR IS code = [...] RED CELL DISTRIBUTION WIDTH 12.4 % 11.6-14.4 ([facility]) (test code = 412) PLATELET COUNT ([facility]) (test 186 K/CU MM 150-450 code = 756) MEAN PLATELET VOLUME ([facility]) 10.3 fL 9.4-12.4 (test code = 754) NUCLEATED RED BLOOD CELLS 0 /100 WBC 0-0 ([facility]) (test code = 413) POCT-GLUCOSE [id number] 21:29:00 Test Item Value Reference Range Interpretation Comments POC-GLUCOSE METER 142 mg/dL 70-110 H TESTED AT [place] [address] ([facility]) (test code = DOUGLAS Peña [facility] 1538) [address] POCT-GLUCOSE [id number] 17:29:00 Test Item Value Reference Range Interpretation Comments POC-GLUCOSE METER 258 mg/dL 70-110 H TESTED AT [place] [address] ([facility]) (test code = [facility] Casey [facility] 1538) [address] TOXOPLASMA GONDII ANTIBODY, [id number] 15:37:00 Test Item Value Reference Range Interpretation Comments TOXOPLASMA GONDII IGG ([facility]) (test Negative code = 419) POCT-GLUCOSE [id number] 11:56:00 Test Item Value Reference Range Interpretation Comments POC-GLUCOSE METER 190 mg/dL 70-110 H TESTED AT [place] [address] ([facility]) (test code = DOUGLAS Peña [facility] 1538) [address] CREATININE [id number] 09:09:00 Test Item Value Reference Range Interpretation Comments CREATININE CLEARANCE 56.5 mL/min 70.0-140.0 L ([facility]) (test code = 357) VOLUME, TOTAL ([facility]) 2500 ml (test code = 1457) CREATININE URINE 46.2 mg/dL ([facility]) (test code = 375) [id number] Angely Santos MD ([facility]) (test code = (electronic signature) 5101) POCT-GLUCOSE [id number] 07:57:00 Test Item Value Reference Range Interpretation Comments POC-GLUCOSE METER 165 mg/dL 70-110 H TESTED AT [place] [address] ([facility]) (test code = IBETHLA [place] 1538) [address] CBC (HEMOGRAM ONLY)2017-07-19 07:06:00 Test Item Value Reference Range Interpretation Comments WHITE BLOOD CELL COUNT (BEAKER) 6.5 K/ L 3.5-10.5 (test code = [...] WBC 0-0 (BEAKER) (test code = 413) [id number] 04:55:00 Test Item Value Reference Range Interpretation Comments MAGNESIUM (BEAKER) (test code = 1.6 mg/dL 1.6-2.6 627) BASIC METABOLIC [id number] 04:55:00 Test Item Value Reference Range Interpretation [...] mg/dL 8.4-10.2 (test code = 697) EGFR ([facility]) (test 53 mL/min/1.73 ESTIMA XIAO GFR IS code = 1092) sq m NOT ACCURATE CREATININE CLEARANCE IN PREDICTING GLOMERULAR FILTRATION RATE . ESTIMATED GFR I S NOT APPLICABLE FOR DIALYSIS PATIEN TS. POCT-GLUCOSE [id number] 21:35:00 Test Item Value Reference Range Interpretation Comments POC-GLUCOSE METER 138 mg/dL 70-110 H TESTED AT [place] [address] ([facility]) (test code = [facility] 1538) [address] POCT-GLUCOSE [id number] 17:20:00 Test Item Value Reference Range Interpretation Comments POC-GLUCOSE METER 108 mg/dL 70-110 TESTED AT [place] [address] ([facility]) (test code = [facility] 1538) [address] VARICELLA ZOSTER ANTIBODY, [id number] 15:46:00 Test Item Value Reference Range Interpretation Comments VARICELLA ZOSTER IGG (AL) ([facility]) > Al (test code = 3197) VARICELLA ZOSTER RESULT INTERPRETATIONS: <=0.8 Al Nonreactive: Presumed non-immune to VZV 0.9-1.0 Al Equivocal >=1.1 Al Reactive: Presumed immune to VZVHERPES VIRUS ANTIBODY, [id number] 15:45:00 Test Item Value Reference Range Interpretation Comments HERPES VIRUS IGG Negative HSV 1 IGG = NEGHSV 2 ([facility]) (test code = IGG = NEG 1807) CYTOMEGALOVIRUS ANTIBODY, [id number] 15:45:00 Test Item Value Reference Range Interpretation Comments CYTOMEGALOVIRUS IGG ANTIBODY Positive ([facility]) (test code = 790) CYTOMEGALOVIRUS ANTIBODY, [id number] 15:45:00 Test Item Value Reference Range Interpretation Comments CYTOMEGALOVIRUS IGM ANTIBODY Negative ([facility]) (test code = 816) EBV-VCA ANTIBODY, [id number] 15:45:00 Test Item Value Reference Range Interpretation Comments SARY-NGUYEN VCA IGG ([facility]) (test Positive code = 983) EBV-VCA ANTIBODY, [id number] 15:45:00 Test Item Value Reference Range Interpretation Comments SARY-NGUYEN VCA IGM ([facility]) (test Negative code = 984) ANTI-NUCLEAR ANTIBODY (JOCELYNN)2017-07-18 11:50:00 Test Item Value Reference Range Interpretation Comments ANTI-NUCLEAR ANTIBODY (JOCELYNN) (BEAKER) Negative Negative (test code = 418) POCT-GLUCOSE [id number] 11:47:00 Test Item Value Reference Range Interpretation Comments POC-GLUCOSE METER 179 mg/dL 70-110 H TESTED AT [facility] 6720 (BEAKER) (test code = DOUGLAS Peña [place] 1538) [address] [id number] 10:39:00 Test Item Value Reference Range Interpretation Comments RPR SCREEN (BEAKER) (test code = Nonreactive Nonreactive 420) POCT-GLUCOSE [id number] 07:35:00 Test Item Value Reference Range Interpretation Comments POC-GLUCOSE METER 167 mg/dL 70-110 H TESTED AT [facility] 67 ([facility]) (test code = DOUGLAS Peña [place] 1538) [address] [id number] 07:35:00 Test Item Value Reference Range Interpretation Comments PHOSPHORUS (BEAKER) (test code = 2.9 mg/dL 2.3-4.7 604) [id number] 07:35:00 Test Item Value Reference Range Interpretation Comments MAGNESIUM (BEAKER) (test code = 1.8 mg/dL 1.6-2.6 627) BASIC METABOLIC [id number] 07:35:00 Test Item Value Reference Range Interpretation [...] NOT APPLICABLE FOR DIALYSIS PATIEN TS. PTH, [id number] 07:24:00 Test Item Value Reference Range Interpretation [...] code = 413) HEPATITIS B CORE ANTIBODY, [id number] 22:00:00 Test Item Value Reference Range Interpretation Comments HEPATITIS B CORE TOTAL ANTIBODY Nonreactive Nonreactive (BEAKER) (test code = 497) HEPATITIS PANEL, [id number] 22:00:00 Test Item Value Reference Range Interpretation Comments HEPATITIS A IGM ANTIBODY (BEAKER) Nonreactive Nonreactive (test code = 498) HEPATITIS B CORE IGM ANTIBODY Nonreactive Nonreactive (BEAKER) (test code = 645) HEPATITIS C ANTIBODY (BEAKER) Nonreactive Nonreactive (test code = 367) HEPATITIS B SURFACE ANTIGEN (2) Nonreactive Nonreactive (BEAKER) (test code = 2585) HIV-1 ANTIGEN WITH HIV-1/2 [id number] 22:00:00 Test Item Value Reference Range Interpretation Comments HIV-1 ANTIGEN WITH HIV 1\\T\\2 Nonreactive Nonreactive ANTIBODY (2) (BEAKER) (test code = 2586) HEPATITIS A ANTIBODY, [id number] 22:00:00 Test Item Value Reference Range Interpretation Comments HEPATITIS A IGG ANTIBODY (BEAKER) Nonreactive Nonreactive (test code = 2797) CREATININE, RANDOM [id number] 21:37:00 Test Item Value Reference Range Interpretation Comments CREATININE URINE (BEAKER) (test 150.2 mg/dL code = 375) Reference Range: No NormalsPROTEIN, RANDOM [id number] 21:37:00 Test Item Value Reference Range Interpretation Comments PROTEIN, URINE (BEAKER) (test code = 12 mg/dL 0-14 1569) [id number] 21:15:00 Test Item Value Reference Range Interpretation Comments PROSTATE SPECIFIC ANTIGEN (BEAKER) 1.0 ng/mL 0.0-4.0 (test code = 844) POCT-GLUCOSE [id number] 20:53:00 Test Item Value Reference Range Interpretation Comments POC-GLUCOSE METER 182 mg/dL 70-110 H TESTED AT [facility] 6720 (BEAKER) ([facility] = [facility] 1538) [address] T4, [id number] 20:33:00 Test Item Value Reference Range Interpretation Comments FREE T4 (BEAKER) (test code = 655) 1.27 ng/dL 0.70-1.48 [id number] 20:33:00 Test Item Value Reference Range Interpretation Comments FERRITIN (BEAKER) (test code = 361) 75 ng/mL 5-275 VITAMIN D, [id number] 20:32:00 Test Item Value Reference Range Interpretation Comments VITAMIN D 25-OH (BEAKER) (test 24.7 ng/mL 6.6-49.9 code = 2764) Effective 06/27/2017: Reference Range ChangeNew: 6.6-49.9 ng/mL Previous: 13.0-47.8 ng/mLRecommended Vitamin D Target Range: 30.0-40.0 ng/mLTRANSFERRIN 2017-07-17 20:20:00 Test Item Value Reference Range Interpretation Comments TRANSFERRIN (BEAKER) (test code = 418 mg/dL 174-382 H 541) [id number] 20:17:00 Test Item Value Reference Range Interpretation Comments PREALBUMIN (BEAKER) (test code = 27 mg/dL 14-45 586) IRON, [id number] 20:17:00 Test Item Value Reference Range Interpretation Comments IRON (BEAKER) (test code = 547) 102 ug/dL 40-160 URIC [id number] 20:16:00 Test Item Value Reference Range Interpretation Comments URIC ACID (BEAKER) (test code = 8.3 mg/dL 2.6-7.2 H 773) [id number] 20:16:00 Test Item Value Reference Range Interpretation Comments PHOSPHORUS (BEAKER) (test code = 3.5 mg/dL 2.3-4.7 604) HEPATIC FUNCTION [id number] 20:16:00 Test Item Value Reference Range Interpretation [...] (test code = 17 U/L 6-55 347) [id number] 20:16:00 Test Item Value Reference Range Interpretation Comments AMYLASE (BEAKER) (test code = 349) 72 U/L 25-125 [id number] 20:16:00 Test Item Value Reference Range Interpretation [...] 222 U/L 125-220 H code = 635) [id number] 20:16:00 Test Item Value Reference Range Interpretation Comments LIPASE (BEAKER) (test code = 749) 43 U/L 8-78 RETICULOCYTE [id number] 19:56:00 Test Item Value Reference Range Interpretation Comments RETICULOCYTE COUNT PCT (BEAKER) (test 1.6 % 0.5-1.8 code = 575) CT, CHEST, WITHOUT [id number] 18:13:00FINAL REPORT CT of the Chest and [...] enhanced CT of the abdomen. Signed: Yuliya Garretteport Verified Date/Time: 07/17/2017 18:13:06 Reading Location: [place] [id number] CT Body Reading Room CT, ABDOMEN, WITHOUT [id number] 18:13:00FINAL REPORT CT of the Chest and [...] Garrett Verified Date/Time: 07/17/2017 18:13:06 Reading Location: [facility] C013Y CT Body Reading Room CT, BRAIN, WITHOUT [id number] 17:55:00FINAL REPORT CT Head without contrast CLINICAL [...] Elizabeth Verified Date/Time: 07/17/2017 17:55:05 Reading Location: [facility] Radiology Reading Room 05:55 PMPOCT-GLUCOSE [id number] 14:27:00 Test Item Value Reference Range Interpretation Comments POC-GLUCOSE METER 121 mg/dL 70-110 H TESTED AT [facility] 67 ([facility]) (test code = [place] [address]) [address] POCT-GLUCOSE [id number] 07:28:00 Test Item Value Reference Range Interpretation Comments POC-GLUCOSE METER 158 mg/dL 70-110 H TESTED AT [facility] 6720 (BEAKER) (test code = [place] 1538) [address] [id number] 04:57:00 Test Item Value Reference Range Interpretation Comments MAGNESIUM (BEAKER) (test code = 1.6 mg/dL 1.6-2.6 627) BASIC METABOLIC [id number] 04:57:00 Test Item Value Reference Range Interpretation [...] (BEAKER) (test code = 412) PLATELET COUNT ([facility]) (test 199 K/CU MM 150-450 code = 756) MEAN PLATELET VOLUME (BEAKER) 10.3 fL 9.4-12.4 (test code = 754) NUCLEATED RED BLOOD CELLS 0 /100 WBC 0-0 (AKER) (test code = 413) POCT-GLUCOSE [id number] 21:00:00 Test Item Value Reference Range Interpretation Comments POC-GLUCOSE METER 160 mg/dL 70-110 H TESTED AT [place] [address] ([facility]) (test code = DOUGLAS Peña [facility] 1538) [address] POCT-GLUCOSE [id number] 17:10:00 Test Item Value Reference Range Interpretation Comments POC-GLUCOSE METER 148 mg/dL 70-110 H TESTED AT [place] [address] ([facility]) (test code = DOUGLAS Peña [facility] 1538) [address] POCT-GLUCOSE [id number] 12:10:00 Test Item Value Reference Range Interpretation Comments POC-GLUCOSE METER 246 mg/dL 70-110 H TESTED AT [place] [address] ([facility]) (test code = DOUGLAS Peña [facility] 1538) [address] POCT-GLUCOSE [id number] 08:32:00 Test Item Value Reference Range Interpretation Comments POC-GLUCOSE METER 186 mg/dL 70-110 H TESTED AT [place] [address] ([facility]) (test code = DOUGLAS Peña [facility] 1538) [address] [id number] 06:35:00 Test Item Value Reference Range Interpretation Comments MAGNESIUM (BEAKER) (test code = 1.7 mg/dL 1.6-2.6 627) BASIC METABOLIC [id number] 06:35:00 Test Item Value Reference Range Interpretation [...] 0-0 (BEAKER) (test code = 413) POCT-GLUCOSE [id number] 20:53:00 Test Item Value Reference Range Interpretation Comments POC-GLUCOSE METER 228 mg/dL 70-110 H TESTED AT [facility] 6720 (BEAKER) (test code = DOUGLAS Peña [place] 1538) [address] POCT-GLUCOSE [id number] 17:06:00 Test Item Value Reference Range Interpretation Comments POC-GLUCOSE METER 194 mg/dL 70-110 H TESTED AT [facility] 6720 (BEAKER) (test code = DOUGLAS Peña [place] 1538) [address] POCT-GLUCOSE [id number] 13:27:00 Test Item Value Reference Range Interpretation Comments POC-GLUCOSE METER 272 mg/dL 70-110 H TESTED AT [facility] 6720 (BEAKER) (test code = DOUGLAS Peña [place] 1538) [address] POCT-GLUCOSE [id number] 09:14:00 Test Item Value Reference Range Interpretation Comments POC-GLUCOSE METER 172 mg/dL 70-110 H TESTED AT [facility] 6720 (BEAKER) (test code = DOUGLAS Peña [place] 1538) [address] [id number] 07:37:00 Test Item Value Reference Range Interpretation Comments MAGNESIUM (BEAKER) (test code = 2.2 mg/dL 1.6-2.6 627) BASIC METABOLIC [id number] 07:37:00 Test Item Value Reference Range Interpretation [...] 0-0 (BEAKER) (test code = 413) POCT-GLUCOSE [id number] 21:21:00 Test Item Value Reference Range Interpretation Comments POC-GLUCOSE METER 315 mg/dL 70-110 H TESTED AT [place] [address] ([facility]) (test code = [place] 1538) [address] POCT-GLUCOSE [id number] 17:03:00 Test Item Value Reference Range Interpretation Comments POC-GLUCOSE METER 171 mg/dL 70-110 H TESTED AT [place] [address] ([facility]) (test code = [place] 1538) [address] POCT-GLUCOSE [id number] 12:23:00 Test Item Value Reference Range Interpretation Comments POC-GLUCOSE METER 204 mg/dL 70-110 H TESTED AT [place] [address] ([facility]) (test code = [place] 1538) [address] POCT-GLUCOSE [id number] 08:21:00 Test Item Value Reference Range Interpretation Comments POC-GLUCOSE METER 141 mg/dL 70-110 H TESTED AT [facility] 6720 (BEAKER) (test code = [place] 1538) [address] CBC (HEMOGRAM ONLY)2017-07-14 06:15:00 Test Item Value [...] WBC 0-0 (BEAKER) (test code = 413) [id number] 03:28:00 Test Item Value Reference Range Interpretation Comments MAGNESIUM (BEAKER) (test code = 1.5 mg/dL 1.6-2.6 L 627) LIPID [id number] 03:28:00 Test Item Value Reference Range Interpretation [...] 130-159 High 160-189 Very High >=190BASIC METABOLIC [id number] 03:28:00 Test Item Value Reference Range Interpretation [...] S NOT APPLICABLE FOR DIALYSIS PATIEN TS. [id number] 02:36:00 Test Item Value Reference Range Interpretation Comments PARTIAL THROMBOPLASTIN TIME 25.9 seconds 22.5-36.0 (BEAKER) (test code = 760) POCT-GLUCOSE [id number] 22:55:00 Test Item Value Reference Range Interpretation Comments POC-GLUCOSE METER 206 mg/dL 70-110 H TESTED AT [facility] 6720 ([facility]) (test code = DOUGLAS [place] 1538) [address] [id number] 18:22:00 Test Item Value Reference Range Interpretation Comments PARTIAL THROMBOPLASTIN TIME 41.6 seconds 22.5-36.0 H (BEAKER) (test code = 455) CREATINE KINASE (CK), TOTAL AND [id number] 12:57:00 Test Item Value Reference Range Interpretation Comments CREATINE KINASE TOTAL ([facility]) 142 U/L 29-200 (test code = 380) CREATINE KINASE-MB ([facility]) (test 5.3 ng/mL 0.0-6.6 code = 750) CREATINE KINASE-MB INDEX ([facility]) 3.7 % (test code = 395) CK-MB Reference Range:<6.7 Normal6.7-10.0 Borderline>10.0 AbnormalTROPONIN [id number] 12:55:00 Test Item Value Reference Range Interpretation Comments TROPONIN I ([facility]) (test code = 0.11 ng/mL 0.00-0.03 H [...] acidosis, acute neurological disease, and persistent tachyarrhythmia.POCT-GLUCOSE [id number] 11:57:00 Test Item Value Reference Range Interpretation Comments POC-GLUCOSE METER 105 mg/dL 70-110 TESTED AT [facility] 6720 ([facility]) (test code = [place] 1538) [address]73 HEMOGLOBIN [id number] 10:45:00 Test Item Value Reference Range Interpretation Comments HEMOGLOBIN A1C ([facility]) (test code = 7.1 % 4.3-6.1 H 368) TSH/FREE T4 IF [id number] 09:41:00 Test Item Value Reference Range Interpretation Comments THYROID STIMULATING HORMONE 1.16 uIU/mL 0.35-4.94 ([facility]) (test code = 772) U/S, RENAL, [id number] 09:15:00Reason for exam:->AKIFINAL REPORT Ultrasound of the [...] bilateral kidneys. Signed: Andrés Trejo Verified Date/Time: 07/13/2017 09:15:34 Reading Location: [facility] [id number] Ultrasound Reading Room APTT 2017-07-13 08:56:00 Test Item Value Reference Range Interpretation Comments PARTIAL THROMBOPLASTIN TIME 27.7 seconds 22.5-36.0 (BEAKER) (test code = 760) Prior to initiating heparinPLATELET [id number] 08:51:00 Test Item Value Reference Range Interpretation Comments PLATELET COUNT (BEAKER) (test 183 K/CU MM 150-450 code = 756) URINALYSIS W/ [id number] 08:45:00 Test Item Value Reference Range Interpretation [...] code = 516) SOURCE(BEAKER) (test code = 2795) POCT-GLUCOSE [id number] 07:58:00 Test Item Value Reference Range Interpretation Comments POC-GLUCOSE METER 186 mg/dL 70-110 H TESTED AT [facility] 6720 (BEAKER) (test code = DOUGLAS Peña [place] 1538) [address] RAPID DRUG SCREEN, [id number] 07:31:00 Test Item Value Reference Range Interpretation [...] situations. Chain of custody not maintained. Some [id number] medications, as well as adulterants, may cause inaccurate results. Clinical correlation should be applied. A more comprehensive drug screen or confirmation of a detected drug may be performed upon request.CREATININE, RANDOM [id number] 07:25:00 Test Item Value Reference Range Interpretation Comments CREATININE URINE (BEAKER) (test 39.7 mg/dL code = 375) Reference Range: No NormalsSODIUM, RANDOM [id number] 07:25:00 Test Item Value Reference Range Interpretation Comments SODIUM URINE (BEAKER) (test code = 95 meq/L 243) Reference Range: No NormalsCREATINE KINASE (CK), TOTAL AND [id number] 07:05:00 Test Item Value Reference Range Interpretation Comments CREATINE KINASE TOTAL (BEAKER) 101 U/L 29-200 (test code = 380) CREATINE KINASE-MB (BEAKER) (test 3.8 ng/mL 0.0-6.6 code = 750) CREATINE KINASE-MB INDEX (BEAKER) 3.8 % (test code = 395) CK-MB Reference Range:<6.7 Normal6.7-10.0 Borderline>10.0 AbnormalTROPONIN [id number] 07:05:00 Test Item Value Reference Range Interpretation Comments TROPONIN I (BEAKER) (test code = 0.10 ng/mL 0.00-0.03 H [...] and persistent tachyarrhythmia.RAD, CHEST, 1 VIEW, NON [id number] 01:09:00Reason for exam:->SHORTNESS OF BREATHShould this be [...] available for dictation secondary to technical issues ([facility] downtime). Signed: Whitney Mockort Verified Date/Time: 07/13/2017 01:09:11 Reading Location: [address] Reading Room CREATINE KINASE (CK), TOTAL AND [id number] 00:42:00 Test Item Value Reference Range Interpretation Comments CREATINE KINASE TOTAL (BEAKER) 66 U/L 29-200 (test code = 380) CREATINE KINASE-MB (BEAKER) (test 2.1 ng/mL 0.0-6.6 code = 750) CREATINE KINASE-MB INDEX (BEAKER) 3.2 % (test code = 395) CK-MB Reference Range:<6.7 Normal6.7-10.0 Borderline>10.0 AbnormalTROPONIN [id number] 00:42:00 Test Item Value Reference Range Interpretation [...] acute neurological disease, and persistent tachyarrhythmia.BASIC METABOLIC [id number] 00:40:00 Test Item Value Reference Range Interpretation [...] = 700) CBC W/PLT COUNT & AUTO [id number] 00:16:00 Test Item Value Reference Range Interpretation [...] % 0-1 PERCENT (BEAKER) (test code = 2804)"
[2021-12-09 13:48] LABS: Absolute Lymphocytes (CBC) 1.3 K/uL (0.7-4.9); Hematocrit 41.2 % (39.6-49.0); Lymphocytes % 19.9 % (15.3-44.8); MPV 7.5 fL (7.6-11.3); RBC Red Blood Cell Count 4.72 M/uL (4.33-5.43)
[2021-12-09 14:02] LABS: Magnesium 2.1 mg/dL (1.8-2.4)
[2021-12-09 14:04] LABS: Potassium 6.1 mmol/L (3.5-5.1)
[2021-12-09] MEDS ORDERED: SOD POLYSTYREN SUL 15 GM/60 ML UCUP ONE (14:17)
--- NOTE | 2021-12-09 14:36 | ER ---
Nurse's Notes [facility] Name: Han Hyde Age: 71 yrs Sex: Male : 1950 Arrival Date: 12/09/2021 Time: 12:56 Bed 6 Private MD: Paula Guzman Diagnosis: Hyperkalemia;Acute kidney failure, unspecified Presentation: 12/09 13:40 Chief complaint: Patient states: Was at lab doing pre-op blood work for a procedure ph next week, potassium was found to be high, pt states that he takes a medication to lower potassium but forgot to take it this morning. Reports that he went home and took it before coming to ED, denies pain., dizziness, or SOB. Coronavirus screen: Vaccine status: Patient reports being unvaccinated. Ebola Screen: No symptoms or risks identified at this time. Initial Sepsis Screen: Does the patient meet any 2 criteria? No. Patient's initial sepsis screen is negative. Does the patient have a suspected source of infection? No. Patient's initial sepsis screen is negative. Risk Assessment: Do you want to hurt yourself or someone else? Patient reports no desire to harm self or others. Onset of symptoms was December 09, 2021. 13:40 Method Of Arrival: Ambulatory ph 13:40 Acuity: RAUL 3 ph Triage Assessment: 13:42 General: Appears in no apparent distress. comfortable, Behavior is calm, cooperative, ph appropriate for age. Pain: Denies pain. Neuro: Level of Consciousness is awake, alert, obeys commands, Oriented to person, place, time, situation, Denies dizziness. Cardiovascular: Denies chest pain, shortness of breath. Derm: Skin is intact, is healthy with good turgor, Skin is pink, warm \T\ dry. Musculoskeletal: Circulation, motion, and sensation intact. Range of motion: intact in all extremities. Historical: - Allergies: 13:22 Demerol; ph 13:22 Lisinopril; ph 13:22 Xarelto; ph - PMHx: 13:22 CHF; pacemaker/defibrillator; ph - Immunization history:: Adult Immunizations. - Family history:: not pertinent. - Social history:: Smoking status: unknown. - Hospitalizations: : No recent hospitalization is reported. Screenin:43 Abuse screen: Denies threats or abuse. Denies injuries from another. Nutritional ww screening: No deficits noted. Tuberculosis screening: No symptoms or risk factors identified. Fall Risk None identified. Assessment: 14:00 General: Appears in no apparent distress. comfortable. Pain: Denies pain. Neuro: Level ww of Consciousness is awake, alert, obeys commands, Oriented to person, place, time, situation, Speech is normal. Cardiovascular: Capillary refill Patient's skin is warm and dry. Rhythm is regular. Respiratory: Airway is patent Respiratory effort is even, unlabored, Respiratory pattern is regular, symmetrical. GI: Abdomen is round. EENT: No signs and/or symptoms were reported regarding the EENT system. 15:35 Reassessment: Patient appears in no apparent distress at this time. No changes from ww previously documented assessment. Patient and/or family updated on plan of care and expected duration. Pain level reassessed. Patient is alert, oriented x 3, equal unlabored respirations, skin warm/dry/pink. assisted to bathroom. 16:48 Reassessment: Patient appears in no apparent distress at this time. No changes from ww previously documented assessment. Patient and/or family updated on plan of care and expected duration. Pain level reassessed. Patient is alert, oriented x 3, equal unlabored respirations, skin warm/dry/pink. 17:15 Reassessment: Patient appears in no apparent distress at this time. No changes from ww previously documented assessment. Patient and/or family updated on plan of care and expected duration. Pain level reassessed. Patient is alert, oriented x 3, equal unlabored respirations, skin warm/dry/pink. spouse at bedside. 18:32 Reassessment: Patient appears in no apparent distress at this time. No changes from ww previously documented assessment. Patient and/or family updated on plan of care and expected duration. Pain level reassessed. Patient is alert, oriented x 3, equal unlabored respirations, skin warm/dry/pink. 19:36 Reassessment: attempted to call report to floor, nurse unavailable. [facility] 19:58 Reassessment: attempted report to floor again, nurse still unavailable. 5 Vital Signs: 13:40 BP 100 / 59; Pulse 66; Resp 16; Temp 97.3; Pulse Ox 100% on R/A; Weight 87.09 kg; ph Height 5 ft. 4 in. (162.56 cm); 14:32 BP 98 / 59; Pulse 65; Resp 18; Pulse Ox 99% on R/A; ww 15:03 BP 121 / 56; Pulse 60; Resp 15; Pulse Ox 99% on R/A; ww 16:05 BP 115 / 63; Pulse 61; Resp 18; Pulse Ox 100% on R/A; ww 17:03 BP 129 / 68; Pulse 64; Resp 22; Pulse Ox 99% on R/A; ww 18:32 BP 103 / 49; Pulse 68; Resp 18; Pulse Ox 99% on R/A; ww 13:40 Body Mass Index 32.96 (87.09 kg, 162.56 cm) ph ED Course: 12:56 Patient arrived in ED. mr 12:56 Paula Guzman MD is Private Physician. mr 13:22 Rob Rosales MD is Attending Physician. rn 13:42 Triage completed. ph 13:42 Arm band placed on Patient placed in an exam room, on a stretcher. ph 13:43 Patient has correct armband on for positive identification. Bed in low position. Call ww light in reach. Side rails up X 1. 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 Pulse ox on. NIBP on. 13:43 Inserted saline lock: 20 gauge in left antecubital area, using aseptic technique. Blood ww collected. 13:44 Rand Rae, RN is Primary Nurse. vg1 13:47 Warm blanket given. mh5 13:48 EKG done, by ED staff, reviewed by Rob Rosales MD. 5 14:35 Seng Platt MD is Hospitalizing Provider. rn 20:32 No provider procedures requiring assistance completed. Patient admitted, IV remains in [address] place[address] Administered Medications: 14:32 Drug: Kayexalate (polystyrene) 15 grams Route: PO; ww 14:47 Drug: NS 0.9% 500 ml Route: IV; Rate: bolus; Site: left antecubital; ww Outcome: 14:35 Decision to Hospitalize by Provider. rn 20:33 Admitted to Med/surg accompanied by tech, via wheelchair, with chart. [facility] 20:33 Condition: stable 20:33 Instructed on the need for admit. 20:33 Patient left the ED. [facility] Signatures: Shirley Swann mr Rob Rosales MD MD rn Hall, Patricia, RN RN ph Martinez, [facility] Rand Rae RN RN vg1 Mariya Felix RN RN sm5 Tonja Simpson RN RN ww Corrections: (The following items were deleted from the chart) 13:24 13:22 Allergies: Novocain; ph ph
--- NOTE | 2021-12-09 14:36 | EDPHYS ---
Physician Documentation [facility] Name: Han Hyde Age: 71 yrs Sex: Male : 1950 Arrival Date: 12/09/2021 Time: 12:56 Bed 6 Private MD: Paula Guzman ED Physician Rob Rosales HPI: 12/09 14:32 This 71 yrs old Male presents to ER via Ambulatory with complaints of Abnormal psychiatric rn Results. 14:32 Pt reports told to come to ER for elevated potassium. States takes medication at home rn to lower potassium as he has had this before, no known kidney problems, takes diuretics. No recent medication changes.. Onset: The symptoms/episode began/occurred at an unknown time. Severity of symptoms: At their worst the symptoms were moderate in the emergency department the symptoms are unchanged. The patient has experienced a previous episode. The patient has been recently seen at an urgent care. Historical: - Allergies: 13:22 Demerol; ph 13:22 Lisinopril; ph 13:22 Xarelto; ph - PMHx: 13:22 CHF; pacemaker/defibrillator; ph - Immunization history:: Adult Immunizations. - Family history:: not pertinent. - Social history:: Smoking status: unknown. - Hospitalizations: : No recent hospitalization is reported. ROS: 14:32 Constitutional: Negative for fever, chills, and weight loss, Eyes: Negative for injury, rn pain, redness, and discharge, ENT: Negative for injury, pain, and discharge, Neck: Negative for injury, pain, and swelling, Cardiovascular: Negative for chest pain, palpitations, and edema, Respiratory: Negative for shortness of breath, cough, wheezing, and pleuritic chest pain, Abdomen/GI: Negative for abdominal pain, nausea, vomiting, diarrhea, and constipation, Back: Negative for injury and pain, : Negative for injury, bleeding, discharge, and swelling, MS/Extremity: Negative for injury and deformity, Skin: Negative for injury, rash, and discoloration, Neuro: Negative for headache, numbness, tingling, and seizure. Exam: 14:32 Constitutional: This is a well developed, well nourished patient who is awake, alert, rn and in no acute distress. Head/Face: Normocephalic, atraumatic. Eyes: Periorbital areas with no swelling, redness, or edema. ENT: dry MM Cardiovascular: Regular rate and rhythm. No pulse deficits. Respiratory: No increased work of breathing, no retractions or nasal flaring. Abdomen/GI: Soft, non-tender Skin: Warm, dry MS/ Extremity: Pulses equal, no cyanosis. Neuro: Awake and alert, GCS 15 Vital Signs: 13:40 BP 100 / 59; Pulse 66; Resp 16; Temp 97.3; Pulse Ox 100% on R/A; Weight 87.09 kg; ph Height 5 ft. 4 in. (162.56 cm); 14:32 BP 98 / 59; Pulse 65; Resp 18; Pulse Ox 99% on R/A; ww 15:03 BP 121 / 56; Pulse 60; Resp 15; Pulse Ox 99% on R/A; ww 16:05 BP 115 / 63; Pulse 61; Resp 18; Pulse Ox 100% on R/A; ww 17:03 BP 129 / 68; Pulse 64; Resp 22; Pulse Ox 99% on R/A; ww 18:32 BP 103 / 49; Pulse 68; Resp 18; Pulse Ox 99% on R/A; ww 13:40 Body Mass Index 32.96 (87.09 kg, 162.56 cm) ph MDM: 13:22 Patient medically screened. rn 14:34 Differential Diagnosis hyperkalemia, acute on chronic kidney failure, medication side rn effect. Data reviewed: vital signs, nurses notes, lab test result(s), EKG, and as a result, I will admit patient. Counseling: I had a detailed discussion with the patient and/or guardian regarding: the historical points, exam findings, and any diagnostic results supporting the discharge/admit diagnosis, lab results, the need for further work-up and treatment in the hospital. Admission orders: after a detailed discussion of the patient's condition and case, the admit orders are written by me. 12/09 13:33 Order name: CBC with Diff; Complete Time: 14: rn 12/09 13:33 Order name: Basic Metabolic Panel; Complete Time: 14: rn 12/09 13:33 Order name: Magnesium; Complete Time: 14: rn 12/09 17:07 Order name: CBC with Automated Diff EDMS 12/09 17:07 Order name: CBC with Automated Diff EDMS 12/09 13:33 Order name: IV Start; Complete Time: 13:42 rn 12/09 13:33 Order name: EKG; Complete Time: 13:34 rn 12/09 17:07 Order name: Renal EDVT 12/09 17:07 Order name: Comprehensive Metabolic Panel EDVT 12/09 17:07 Order name: Comprehensive Metabolic Panel EDVT 12/09 17:07 Order name: Basic Metabolic Panel [facility] 12/09 13:33 Order name: EKG - Nurse/Tech; Complete Time: 13:42 rn 12/09 13:33 Order name: Cardiac monitoring; Complete Time: 13:42 rn Administered Medications: 14:32 Drug: Kayexalate (polystyrene) 15 grams Route: PO; ww 14:47 Drug: NS 0.9% 500 ml Route: IV; Rate: bolus; Site: left antecubital; ww Disposition Summary: 12/09/21 14:35 Hospitalization Ordered Hospitalization Status: Inpatient Admission rn Provider: Seng Platt rn Location: Telemetry/MedSurg (Inpatient) rn Condition: Stable rn Problem: new rn Symptoms: are unchanged rn Bed/Room Type: Standard rn Room Assignment: 207(12/09/21 18:40) eb Diagnosis - Hyperkalemia rn - Acute kidney failure, unspecified rn Forms: - Medication Reconciliation Form rn - SBAR form rn Signatures: Dispatcher [employer] Rob Massey MD MD rn Hall, Patricia RN RN Angely Albright Sarah, RN RN Tonja Villeda RN RN ww Corrections: (The following items were deleted from the chart) 13:24 13:22 Allergies: Novocain; ph ph 18:40 14:35 rn eb
[2021-12-09] MEDS ORDERED: NA CHLORIDE 0.9% 500 ML ONE (14:37)
[2021-12-09] MEDS ORDERED: ACETAMINOPHEN 500 MG TAB PO PRN (16:58)
[2021-12-09] MEDS ORDERED: MORPHINE 2 MG/ML SYR IV PRN (16:58)
[2021-12-09] MEDS ORDERED: ONDANSETRON 4 MG/2 ML VIAL IV PRN (16:58)
[2021-12-09] MEDS ORDERED: SOD POLYSTYREN SUL 15 GM/60 ML UCUP PO ONE (18:00)
[2021-12-09] MEDS: D5W 1,000 ML with NA BICARB 8.4% 50 MEQ IV SCH ×2 (18:00)
[2021-12-09 20:54] VITALS: O2SAT 99
[2021-12-10 02:16] VITALS: BMI 32.9
[2021-12-10 05:44] LABS: Absolute Lymphocytes (CBC) 1.4 K/uL (0.7-4.9); Hematocrit 37.5 % (39.6-49.0); Lymphocytes % 25.5 % (15.3-44.8); MPV 7.6 fL (7.6-11.3); RBC Red Blood Cell Count 4.27 M/uL (4.33-5.43)
[2021-12-10 05:56] LABS: Albumin 3.2 g/dL (3.4-5.0); Bilirubin Total 0.3 mg/dL (0.2-1.0); Potassium 4.4 mmol/L (3.5-5.1); Protein, Total 6.2 g/dL (6.4-8.2)
[2021-12-10] MEDS ORDERED: MAGNESIUM OXIDE 400 MG TAB PO SCH (09:00)
[2021-12-10] MEDS ORDERED: SACUBITRIL/VALSARTAN 49/51 MG TAB PO SCH (09:00)
[2021-12-10] MEDS ORDERED: FENOFIBRATE 160 MG TAB PO SCH (09:00)
[2021-12-10] MEDS ORDERED: FUROSEMIDE 40 MG TABLET PO SCH (09:00)
[2021-12-10] MEDS ORDERED: DIGOXIN 0.125 MG TABLET PO SCH (09:00)
[2021-12-10] MEDS ORDERED: AMIODARONE HCL 200 MG TAB PO SCH (09:00)
[2021-12-10] MEDS ORDERED: APIXABAN 5 MG TABLET PO SCH (09:00)
[2021-12-10] MEDS ORDERED: carvediloL 12.5 MG TAB PO SCH (09:00)
[2021-12-10] MEDS: D5W 1,000 ML with NA BICARB 8.4% 50 MEQ IV SCH ×2 (09:40)
[2021-12-10 10:17] LABS: Urine Appearance CLEAR (Clear); Urine Color YELLOW (Yellow); Urine Glucose 2+ (Negative)
[2021-12-10 10:18] LABS: Urine Bilirubin NEGATIVE (Negative); Urine Blood NEGATIVE (Negative); Urine Microscopic Reflex ORDER UMIC; Urine Protein NEGATIVE (Negative); Urine Urobilinogen 0.2 mg/dL (0.2-1.0)
[2021-12-10 12:30] LABS: Urine Bacteria <20 /HPF (NONE SEEN); Urine RBC <5 /HPF (NONE SEEN)
--- NOTE | 2021-12-10 12:58 | P.HP ---
Certification for Inpatient Patient admitted to: Observation With expected LOS: <2 Midnights Patient will require the following post-hospital care: None Practitioner: I am a practitioner with admitting privileges, knowledge of patient current condition, hospital course, and medical plan of care. Services: Services provided to patient in accordance with Admission requirements found in Title 42 Section 412.3 of the Code of Federal Regulations Patient History Date of Service: 12/09/21 Reason for admission: Hyperkalemia History of Present Illness: Patient is a 71-year-old gentleman who came to the hospital with acute renal insufficiency with hyperkalemia. Allergies lisinopril Allergy (Verified 12/09/21 11:11) Rash meperidine [From Demerol] Allergy (Verified 12/09/21 11:11) Hallucinations rivaroxaban [From Xarelto] Allergy (Verified 12/09/21 11:11) Heavy Bleeding Home Medications: Rosuvastatin [Crestor*] 40 mg PO BEDTIME 02/10/17 Magnesium Oxide [Mag 0X*] 400 mg PO BID 03/25/18 carvediloL [Coreg*] 12.5 mg PO BID 03/25/18 Amiodarone HCl [Pacerone] 200 mg PO DAILY 12/09/21 Apixaban [Eliquis] 5 mg PO BID 12/09/21 Aspirin [Ecotrin 81 MG] 81 mg PO DAILY 12/09/21 Digoxin [Lanoxin*] 0.125 mg PO DAILY 12/09/21 Dulaglutide [Trulicity] 3 mg PO EVERY 7TH DAY 12/09/21 Empagliflozin [Jardiance] 10 mg PO DAILY 12/09/21 Fenofibrate [Tricor*] 145 mg PO DAILY 12/09/21 Furosemide [Lasix] 40 mg PO DAILY 12/09/21 Insulin Aspart [Novolog Flexpen] 15 unit SQ AC 12/09/21 Insulin Degludec [Tresiba Flextouch U-200] 70 unit SQ DAILY 12/09/21 Sacubitril/Valsartan [Entresto 49 mg-51 mg Tablet] 1 tab PO BID 12/09/21 Sodium Zirconium Cyclosilicate [Lokelma] 5 gm PO DAILY 12/09/21 - Past Medical/Surgical History Has patient received pneumonia vaccine in the past: Yes Diabetic: Yes -: Hyperlipidemia -: iddm -: Coronary artery disease -: Triple bypass-2008 -: Coronary nusske=2958 -: Pacemaker/Defibrillator -: Rt shoulder sx-2015 - Family History Father Medical History: Heart disease, Hypertension, Stroke Mother Medical History: Heart disease, Hypertension - Social History Smoking Status: Former smoker Alcohol use: No CD- Drugs: No Caffeine use: Yes Place of Residence: Home Physical Examination - Vital Signs Temperature: 96.6 F Blood Pressure: 105/48 Pulse: 62 Respirations: 14 Pulse Ox (%): 98 - Studies Laboratory Data (last 24 hrs) 12/09/21 13:37: Sodium 135 L, Potassium 6.1 H*, BUN 41 H, Creatinine 2.70 H, Glucose 169 H, Magnesium 2.1 12/09/21 13:37: WBC 6.40, Hgb 13.9, Hct 41.2, Plt Count 215 Assessment & Plan - Advance Directives Does patient have a Living Will: No Does patient have a Durable POA for Healthcare: No
[2021-12-10 17:11] VITALS: BP 125/58; TEMP 97.1
[2021-12-10] MEDS ORDERED: ROSUVASTATIN 10 MG TAB PO SCH (21:00)
--- NOTE | 2021-12-12 09:30 | EKG ---
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[employer] MEASUREMENT RESULTS: Intervals: Rate: 69 DC: 220 QRSD: 108 QT: 384 QTc: 411 Marshall: P: 46 DC: 220 QRS: 4 T: 185 INTERPRETIVE STATEMENTS: Sinus rhythm with 1st degree AV block Incomplete left bundle branch block Nonspecific ST and T wave abnormality Abnormal ECG Compared to ECG 12/09/2021 10:22:06 First degree AV block now present Left bundle-branch block now present ST (T wave) deviation now present Atrial-paced complex(es) or rhythm no longer present Left-axis deviation no longer present Myocardial infarct finding no longer present Electronically Signed On 12-12-21 09:26:09 CDT by Roman Thibodeaux
== END 2021-12-10 18:00 | disposition home or self-care (01) ==
LOC: ER 12:54 → ERHOLD 17:03 → 2ND 19:38
PROVIDERS: ADMIT Hospitalist; ATTEND Hospitalist
DX: E87.5 Hyperkalemia (principal); N28.9 Disorder of kidney and ureter, unspecified; E78.5 Hyperlipidemia, unspecified; E11.9 Type 2 diabetes mellitus without complications; I25.10 Atherosclerotic heart disease of native coronary artery without angina pectoris; Z95.1 Presence of aortocoronary bypass graft; Z95.0 Presence of cardiac pacemaker; Z95.5 Presence of coronary angioplasty implant and graft; Z87.891 Personal history of nicotine dependence; Z79.01 Long term (current) use of anticoagulants; Z79.82 Long term (current) use of aspirin; Z79.4 Long term (current) use of insulin; Z79.899 Other long term (current) drug therapy; Z88.8 Allergy status to other drugs, medicaments and biological substances; Z82.49 Family history of ischemic heart disease and other diseases of the circulatory system; Z82.3 Family history of stroke
CPT/HCPCS: 93005; 85025 ×2; 80048 ×2; 36415; 83735; 82947 ×4; 80053; 99285; J7040; G0378 ×3; 81003; 81015

== ENCOUNTER 2021-12-12 07:30 | Day surgery (SDC) | payer OTHER ==
[2021-12-09 11:44] LABS: Absolute Lymphocytes (CBC) 1.5 K/uL (0.7-4.9); Hematocrit 42.9 % (39.6-49.0); Lymphocytes % 20.1 % (15.3-44.8); MPV 7.4 fL (7.6-11.3)
[2021-12-09 11:48] LABS: Protime INR 1.24
--- NOTE | 2021-12-09 11:51 | RAD REPORT ---
EXAM DESCRIPTION: Baljeet Balbuena (2 Views)12/09/2021 11:42 am CLINICAL HISTORY: Preop for arteriogram. Hypertension COMPARISON: 2018 FINDINGS: The lungs appear clear of acute infiltrate. The heart is normal size Postsurgical changes involve the chest. Pacemaker leads in place IMPRESSION: No acute abnormalities displayed
[2021-12-09 12:07] LABS: Potassium 6.4 mmol/L (3.5-5.1)
[2021-12-09 12:49] LABS: Blood Morphology Comment NOT SEEN (NOT SEEN); Platelet Estimate ADEQ
[2021-12-12] MEDS ORDERED: NA CHLORIDE 0.9% 500 ML ONE (08:05)
[2021-12-12] MEDS ORDERED: FENTANYL CITR 100 MCG/2 ML ONE (08:15)
[2021-12-12] MEDS ORDERED: MIDAZOLAM HCL 2 MG/2 ML INJ ONE (08:16)
[2021-12-12] MEDS ORDERED: ATROPINE SULF 1 MG/10 ML SYR IV ONE (08:16)
[2021-12-12] MEDS ORDERED: HEPA 1000U/500MLS 2,000 UNIT/1,000 ML BAG IV ONE (08:20)
[2021-12-12] MEDS ORDERED: LIDOCAINE 1% 20 ML MDV ONE (08:20)
[2021-12-12 15:29] VITALS: BP 114/58; O2SAT 98
--- NOTE | 2021-12-12 19:44 | OP ---
Surgeon: Roman Thibodeaux MD Vp Strategy: Karthik Muse. [employer] was used to close the case. The patient will resume his Eliquis tomorrow. He will be at [facility] for 2 hours before he goes home. I will see him in the office in 2 weeks. I will consider us e of [place]. His creatinine is elevated. We will consider intervention on the iliacs down the road if his symptoms persist. Admitted as an outpatient today, 12/12/2021 for abdominal angiogram with runoff. Indication: Peripheral arterial disease, abnormal arterial Doppler, claudication. Procedure In Detail: Mr. Hyde was brought to the computer lab aide today. He had quit his Eliquis 2 days bef ore the procedure. He was prepped and draped in routine sterile fashion in the computer lab aide. A 6-Honduran sheath introduced in the right common femoral artery successfully using the Seldinger technique and 10 cc of Xylocaine. A pigtail catheter was advanced above the renals. Abdominal angiogram with runo ff was done. He was found to have 50%-60% bilateral common iliac artery stenosis, 50% right renal, d iffuse disease [id number] and anterior tibial, posterior tibial and peroneal. SFAs were both nor mal. The patient tolerated the procedure well. There were no complications. Blood Loss: 5 mL. Postoperative Diagnosis: Severe peripheral arterial disease. Plan: Plan is for medical therapy. CHRISTINA/APARNA Voice ID: [id number] Report ID: [id number]
== END 2021-12-12 17:32 | disposition home or self-care (01) ==
LOC: CCL 07:30
DX: I70.213 Atherosclerosis of native arteries of extremities with intermittent claudication, bilateral legs (principal); I70.1 Atherosclerosis of renal artery; I65.23 Occlusion and stenosis of bilateral carotid arteries; I25.810 Atherosclerosis of coronary artery bypass graft(s) without angina pectoris; I11.0 Hypertensive heart disease with heart failure; I50.22 Chronic systolic (congestive) heart failure; I25.5 Ischemic cardiomyopathy; I48.0 Paroxysmal atrial fibrillation; E78.2 Mixed hyperlipidemia; E11.9 Type 2 diabetes mellitus without complications; Z95.1 Presence of aortocoronary bypass graft; Z95.810 Presence of automatic (implantable) cardiac defibrillator; Z87.891 Personal history of nicotine dependence; Z79.01 Long term (current) use of anticoagulants; Z79.82 Long term (current) use of aspirin; Z79.899 Other long term (current) drug therapy; Z88.6 Allergy status to analgesic agent; Z88.8 Allergy status to other drugs, medicaments and biological substances; Z20.822 Contact with and (suspected) exposure to COVID-19; Z82.49 Family history of ischemic heart disease and other diseases of the circulatory system
CPT/HCPCS: 93005; 85025; 80048; 36415; 85610; 82947 ×3; 85730; 71046; 36200; 75630; U0003; C1893; C1887; J2250; J3010; J7040; J1644

== ENCOUNTER 2022-03-18 12:38 | Observation (INO) | payer OTHER ==
--- NOTE | 2022-03-18 14:00 | RAD REPORT ---
EXAM DESCRIPTION: [facility] Protocol - 03/18/2022 1:49 pm CLINICAL HISTORY: acute kidney injury COMPARISON: No comparisons TECHNIQUE: CT of the abdomen and pelvis was performed. All CT scans are performed using dose optimization technique as appropriate and may include automated exposure control or mA/KV adjustment according to patient size. FINDINGS: Lower chest: Pacemaker. Liver: Too small to characterize liver lesions which are likely benign. Biliary: No biliary ductal dilatation. Stomach: No significant focal abnormality. Duodenum: No significant focal abnormality. Pancreas: No significant abnormality. Spleen: No significant abnormality. Adrenal: No suspicious lesions. Kidney/ureter: No hydronephrosis. 7 mm stone in the lower pole the left kidney. Retroperitoneum: No retroperitoneal adenopathy. Vascular: No aneurysm. Aortoiliac atherosclerosis. The iliac vessels are heavily calcified and likely stenotic. Bowel: No significant focal abnormality. Normal appendix. Peritoneum: No ascites or free air. Bladder: Grossly unremarkable. Reproductive: No adnexal masses. Bones: No acute fracture. Multilevel degenerative changes are present in the spine. Other: n/a IMPRESSION: No acute intra-abdominal or pelvic finding. Nonobstructive left-sided nephrolithiasis. N o ureteral calculi. Normal appendix.
[2022-03-18 14:15] LABS: Absolute Lymphocytes (CBC) 1.5 K/uL (0.7-4.9); Hematocrit 37.9 % (39.6-49.0); Lymphocytes % 20.6 % (15.3-44.8); MCV 87.3 fL (80-100); MPV 7.6 fL (7.6-11.3); RBC Red Blood Cell Count 4.34 M/uL (4.33-5.43)
[2022-03-18 14:36] LABS: Albumin 3.7 g/dL (3.4-5.0); Bilirubin Total 0.4 mg/dL (0.2-1.0); Protein, Total 7.1 g/dL (6.4-8.2)
[2022-03-18 14:39] LABS: Potassium 3.9 mmol/L (3.5-5.1)
[2022-03-18 14:42] LABS: Troponin High Sensitivity 59.2 pg/mL (<58.9)
--- NOTE | 2022-03-18 19:08 | EDPHYS ---
Physician Documentation [facility] Name: Han Hyde Age: 71 yrs Sex: Male : 1950 Arrival Date: 03/18/2022 Time: 12:40 Bed 14 Private MD: Paula Guzman ED Physician Giovani Guzman HPI: 03/18 13:29 This 71 yrs old Male presents to ER via Ambulatory with complaints of Abnormal Lab jmm Results. 13:29 Onset: The symptoms/episode began/occurred at an unknown time. The patient has jmm experienced similar episodes in the past. This is a 71 year old male with a history of CHF, atrial fibrillation, that presents to the ED with no complaints. Was advised by his PCP to go to the ED due to increased creatinine. Patient denies chest pain, shortness of breath, weakness. Patient takes oral medication to control potassium levels. . Historical: - Allergies: 13:12 Demerol; vg1 13:12 Lisinopril; vg1 13:12 Xarelto; vg1 - Home Meds: 13:12 Eliquis oral [Active]; Entresto oral [Active]; Lokelma oral [Active]; Amiodarone Oral vg1 [Active]; carvedilol oral [Active]; fenofibrate oral [Active]; rosuvastatin oral [Active]; Magnesium Oxide Oral [Active]; Digoxin Oral [Active]; Furosemide Oral [Active]; Aspirin Oral [Active]; - PMHx: 13:12 CHF; pacemaker/defibrillator; Atrial fibrillation; vg1 - PSHx: 13:12 Stented artery; vg1 - Immunization history:: Client reports receiving the 2nd dose of the Covid vaccine. - Social history:: Smoking status: Patient/guardian denies using tobacco. ROS: 13:29 Constitutional: Negative for fever, chills, and weight loss, Cardiovascular: Negative jmm for chest pain, palpitations, and edema, Respiratory: Negative for shortness of breath, cough, wheezing, and pleuritic chest pain, Abdomen/GI: Negative for abdominal pain, nausea, vomiting, diarrhea, and constipation. 13:29 All other systems are negative. Exam: 13:29 Constitutional: This is a well developed, well nourished patient who is awake, alert, jmm and in no acute distress. Head/Face: atraumatic. Eyes: EOMI, no conjunctival erythema appreciated ENT: Moist Mucus Membranes Neck: Trachea midline, Supple Chest/axilla: Normal chest wall appearance and motion. Cardiovascular: Regular rate and rhythm. No edema appreciated Respiratory: Normal respirations, no respiratory distress appreciated Abdomen/GI: Non distended Back: Normal ROM Skin: General appearance color normal MS/ Extremity: Moves all extremities, no obvious deformities appreciated, no edema noted to the lower extremities Neuro: Awake and alert Psych: Behavior is normal, Mood is normal, Patient is cooperative and pleasant Vital Signs: 13:10 BP 156 / 70; Pulse 70; Resp 16; Temp 97.9; Pulse Ox 100% on R/A; Weight 87.09 kg; vg1 Height 5 ft. 4 in. (162.56 cm); Pain 0/10; 15:38 BP 152 / 73; Pulse 66; Resp 17 S; Pulse Ox 100% on R/A; jg9 16:00 BP 152 / 66; Pulse 62; Resp 17 S; Pulse Ox 99% ; jg9 16:30 BP 160 / 71; Pulse 61; Resp 16 S; Pulse Ox 99% on R/A; jg9 17:15 BP 138 / 63; Pulse 65; Resp 16 S; Pulse Ox 97% on R/A; jg9 18:30 BP 150 / 54; Pulse 66; Resp 17 S; Pulse Ox 100% ; jg9 13:10 Body Mass Index 32.96 (87.09 kg, 162.56 cm) vg1 MDM: 13:29 Patient medically screened. [facility] 19:05 Data reviewed: vital signs, nurses notes. Counseling: I had a detailed discussion with sherley the patient and/or guardian regarding: the historical points, exam findings, and any diagnostic results supporting the discharge/admit diagnosis, lab results, radiology results, the need for further work-up and treatment in the hospital. ED course: Troponin elevated on reevaluation. I discussed the patient with Mary Hsu, whom accepted the patient to Dr. Platt's service. . 03/18 13:29 Order name: CBC with Diff; Complete Time: 14:35 [facility] 03/18 13:29 Order name: CMP; Complete Time: 14:44 [facility] 03/18 13:29 Order name: Lipase; Complete Time: 14:44 [facility] 03/18 13:29 Order name: Troponin High Sensitivity; Complete Time: 14:44 [facility] 03/18 15:41 Order name: Troponin High Sensitivity: 3 hr after initial draw; Complete Time: 18:48 [facility] 03/18 19:10 Order name: COVID-19 SARS RT PCR (Document "Date of Onset" if Symptomatic); Complete jg9 Time: 20:19 03/18 13:29 Order name: IV Saline Lock; Complete Time: 15:40 [facility] 03/18 13:29 Order name: Labs collected and sent; Complete Time: 15:40 [facility] 03/18 13:29 Order name: EKG - Nurse/Tech; Complete Time: 17:36 [facility] 03/18 13:30 Order name: CT Stone Protocol; Complete Time: 14:03 [facility] Administered Medications: No medications were administered Disposition: 03/19 07:06 Co-signature as Attending Physician, Giovani Guzman MD I agree with the assessment and kdr plan of care. Disposition Summary: 03/18/22 19:07 Hospitalization Ordered Hospitalization Status: Observation [facility] Provider: Seng Platt [facility] Location: Telemetry/MedSurg (observation) [facility] Condition: Stable [facility] Problem: new [facility] Symptoms: are unchanged [facility] Bed/Room Type: Standard [facility] Room Assignment: 231(03/18/22 20:41) Diagnosis - Acute Kidney Injury [facility] - Elevated Troponin [facility] Forms: - Medication Reconciliation Form [facility] - SBAR form [facility] Signatures: Dispatcher [employer] Ruthie Quinones RN Giovani Christianson MD MD kdr Mickail, Joel, PA PA Rand Rodriguez, RN RN vg1 Corrections: (The following items were deleted from the chart) 03/18 20:41 19:07 [facility] mw
--- NOTE | 2022-03-18 19:08 | ER ---
Nurse's Notes [facility] Name: Han Hyde Age: 71 yrs Sex: Male : 1950 Arrival Date: 03/18/2022 Time: 12:40 Bed 14 Private MD: Paula Guzman Diagnosis: Acute Kidney Injury;Elevated Troponin Presentation: 03/18 13:10 Chief complaint: Patient states: Was sent to ED due to creatinine level; on 03/14 vg1 results were 3.69 and on 03/15 level was 3.91. Denies any pain at this time or NV. Coronavirus screen: Vaccine status: Patient reports receiving the 2nd dose of the covid vaccine. Client denies travel out of the [place] in the last 14 days. Ebola Screen: Patient denies exposure to infectious person. Patient denies travel to an Ebola-affected area in the 21 days before illness onset. Initial Sepsis Screen: Does the patient meet any 2 criteria? No. Patient's initial sepsis screen is negative. Does the patient have a suspected source of infection? No. Patient's initial sepsis screen is negative. Risk Assessment: Do you want to hurt yourself or someone else? Patient reports no desire to harm self or others. Onset of symptoms was March 14, 2022. 13:10 Method Of Arrival: Ambulatory vg1 13:10 Acuity: RAUL 3 vg1 Triage Assessment: 13:12 General: Appears comfortable, Behavior is calm, cooperative. Pain: Denies pain. Neuro: vg1 Level of Consciousness is awake, alert, obeys commands, Oriented to person, place, time, situation. Cardiovascular: Patient's skin is warm and dry. Respiratory: Airway is patent Respiratory effort is even, unlabored. Historical: - Allergies: 13:12 Demerol; vg1 13:12 Lisinopril; vg1 13:12 Xarelto; vg1 - Home Meds: 13:12 Eliquis oral [Active]; Entresto oral [Active]; Lokelma oral [Active]; Amiodarone Oral vg1 [Active]; carvedilol oral [Active]; fenofibrate oral [Active]; rosuvastatin oral [Active]; Magnesium Oxide Oral [Active]; Digoxin Oral [Active]; Furosemide Oral [Active]; Aspirin Oral [Active]; - PMHx: 13:12 CHF; pacemaker/defibrillator; Atrial fibrillation; vg1 - PSHx: 13:12 Stented artery; vg1 - Immunization history:: Client reports receiving the 2nd dose of the Covid vaccine. - Social history:: Smoking status: Patient/guardian denies using tobacco. Screenin:48 Abuse screen: Denies threats or abuse. Denies injuries from another. Nutritional jg9 screening: No deficits noted. Tuberculosis screening: No symptoms or risk factors identified. Fall Risk None identified. Assessment: 15:49 Reassessment: No changes from previously documented assessment. Patient and/or family jg9 updated on plan of care and expected duration. Pain level reassessed. Patient is alert, oriented x 3, equal unlabored respirations, skin warm/dry/pink. 19:19 Reassessment: Patient appears in no apparent distress at this time. Patient and/or ke1 family updated on plan of care and expected duration. Pain level reassessed. Patient is alert, oriented x 3, equal unlabored respirations, skin warm/dry/pink. Patient denies pain at this time. 20:03 Reassessment: SIster [phone]. ke 20:53 Reassessment: Med surg called for report, nurse will call back. ke Vital Signs: 13:10 BP 156 / 70; Pulse 70; Resp 16; Temp 97.9; Pulse Ox 100% on R/A; Weight 87.09 kg; vg1 Height 5 ft. 4 in. (162.56 cm); Pain 0/10; 15:38 BP 152 / 73; Pulse 66; Resp 17 S; Pulse Ox 100% on R/A; jg9 16:00 BP 152 / 66; Pulse 62; Resp 17 S; Pulse Ox 99% ; jg9 16:30 BP 160 / 71; Pulse 61; Resp 16 S; Pulse Ox 99% on R/A; jg9 17:15 BP 138 / 63; Pulse 65; Resp 16 S; Pulse Ox 97% on R/A; jg9 18:30 BP 150 / 54; Pulse 66; Resp 17 S; Pulse Ox 100% ; jg9 13:10 Body Mass Index 32.96 (87.09 kg, 162.56 cm) 1 ED Course: 12:40 Patient arrived in ED. mr 12:40 Paula Guzman MD is Private Physician. mr 13:12 Triage completed. vg1 13:12 Arm band placed on. vg1 13:23 [facility] 13:23 Giovani Guzman MD is Attending Physician. [facility] 13:50 CT Stone Protocol In Process Unspecified. EDMS 14:02 Mary Grace Hernandez, RN is Primary Nurse. jg9 14:02 Inserted saline lock: 22 gauge in left antecubital area, using aseptic technique. Blood jg9 collected. 15:45 Nurse Practitioner and/or Physician Ghost Writer to see patient. jg9 15:48 Patient has correct armband on for positive identification. Bed in low position. Call jg9 light in reach. Side rails up X 1. 15:49 No apparent distress. Resting quietly. jg9 18:32 No apparent distress. Resting quietly. Awaiting lab results. jg9 18:38 patients sister Bekah House called asks if provider or nurse could please call when eb they got a minute to update on status. 19:06 Seng Platt MD is Hospitalizing Provider. [facility] 20:32 EKG done, by ED staff, reviewed by Evangelista CARDOSO. [facility] 20:33 Warm blanket given. groundwater monitoring technician on. Pulse ox on. NIBP on. 5 21:33 No provider procedures requiring assistance completed. Accessed Patient admitted, IV ke1 remains in place. Administered Medications: No medications were administered Medication: 15:49 VIS not applicable for this client. jg9 Outcome: 19:07 Decision to Hospitalize by Provider. [facility] 21:33 Admitted to Med/surg accompanied by shadi, Report called to Darcy LIN ke1 21:33 Condition: good 21:33 Discharge instructions given to patient. 21:42 Patient left the ED. ke1 Signatures: Dispatcher [employer] EDMS Evangelista Roach PA PA [facility] Shirley Swann Maria 5 Angely Green Victoria, RN RN vg1 Mary Grace Hernandez, RN RN jg9 Kaela Irizarry, RN RN ke1
--- NOTE | 2022-03-18 20:00 | P.HP ---
Certification for Inpatient Patient admitted to: Observation With expected LOS: <2 Midnights Patient will require the following post-hospital care: None Practitioner: I am a practitioner with admitting privileges, knowledge of patient current condition, hospital course, and medical plan of care. Services: Services provided to patient in accordance with Admission requirements found in Title 42 Section 412.3 of the Code of Federal Regulations <Gwen Hsu - Last Filed: 03/18/22 20:16> Patient History Date of Service: 03/18/22 Reason for admission: EDIE, Elevated Troponin History of Present Illness: Patient is a 71 y/o M with PMH of IDDM, systolic CHF, afib on eliquis, CAD, and HTN who presented to the ED reporting abnormal lab results. Patient states that his Creatinine was 3.91 at a routine cardiology appointment. He denies any symptoms. He reports he has been working outside but has been drinking plenty of water. He states that yesterday, his risk control representative told him to stop taking his eliquis and lasix (but is not sure why). Labs in the ED significant for Cr 3.06, troponin 59.2, BUN 44. Repeat troponin 3 hours later was 74.7. Patient denies chest pain. Pacemaker/defibrillator in place. CT abd/pelv negative. ED provider wishes to admit patient for observation. Home medications list reviewed: Yes - Past Medical/Surgical History Diabetic: Yes -: Hyperlipidemia -: IDDM -: Coronary artery disease -: CHF -: Atrial Fibrillation -: Triple bypass-2008 -: Coronary [id number] -: Pacemaker/Defibrillator -: Rt shoulder sx-2015 Psychosocial/ Personal History: Patient is . - Family History Father -: Heart disease, Hypertension, Stroke Mother -: Heart disease, Hypertension - Social History Smoking Status: Former smoker Alcohol use: No CD- Drugs: No Caffeine use: Yes Place of Residence: Home <ShadiGwen - Last Filed: 03/18/22 20:16> Date of Service: 03/19/22 <Seng Platt - Last Filed: 03/19/22 15:23> Allergies lisinopril Allergy (Verified 12/09/21 11:11) Rash meperidine [From Demerol] Allergy (Verified 12/09/21 11:11) Hallucinations rivaroxaban [From Xarelto] Allergy (Verified 12/09/21 11:11) Heavy Bleeding Home Medications: Rosuvastatin [Crestor*] 40 mg PO BEDTIME 02/10/17 Magnesium Oxide [Mag 0X*] 400 mg PO BID 03/25/18 carvediloL [Coreg*] 12.5 mg PO BID 03/25/18 Amiodarone HCl [Pacerone] 200 mg PO DAILY 12/09/21 Aspirin [Ecotrin 81 MG] 81 mg PO DAILY 12/09/21 Digoxin [Lanoxin*] 0.125 mg PO DAILY 12/09/21 Dulaglutide [Trulicity] 3 mg PO EVERY 7TH DAY 12/09/21 Empagliflozin [Jardiance] 10 mg PO DAILY 12/09/21 Fenofibrate [Tricor*] 145 mg PO DAILY 12/09/21 Insulin Aspart [Novolog Flexpen] 17 unit SQ AC 12/09/21 Insulin Degludec [Tresiba Flextouch U-200] 60 unit SQ DAILY 12/09/21 Sacubitril/Valsartan [Entresto 49 mg-51 mg Tablet] 1 tab PO BID 12/09/21 Sodium Zirconium Cyclosilicate [Lokelma] 5 gm PO DAILY 12/09/21 Review of Systems Unremarkable <Gwen Hsu - Last Filed: 03/18/22 20:16> Physical Examination - Physical Exam General: Alert, In no apparent distress HEENT: Atraumatic, PERRLA, Mucous membr. moist/pink, EOMI, Sclerae nonicteric Neck: Supple, 2+ carotid pulse no bruit, No LAD, Without JVD or thyroid abnormality Respiratory: Clear to auscultation bilaterally, Normal air movement Cardiovascular: Regular rate/rhythm, Normal S1 S2 Gastrointestinal: Normal bowel sounds, No tenderness Musculoskeletal: No tenderness Integumentary: No rashes Neurological: Normal speech, Normal strength at 5/5 x4 extr, Normal tone, Normal affect - Studies Laboratory Data (last 24 hrs) 03/18/22 13:32: Sodium 138, Potassium 3.9, BUN 44 H, Creatinine 3.06 H, Glucose 138 H, Total Bilirubin 0.4, AST 26, ALT 36, Alkaline Phosphatase 45, Lipase 216 03/18/22 13:32: WBC 7.2, Hgb 12.9 L, Hct 37.9 L, Plt Count 217 <ShadiGwen - Last Filed: 03/18/22 20:16> Assessment and Plan - Problems (Diagnosis) (1) Elevated troponin Status: Acute (2) EDIE (acute kidney injury) Status: Acute (3) Congestive heart failure (CHF) Status: Chronic Qualifiers: Heart failure type: systolic Heart failure chronicity: chronic Qualified Code(s): I50.22 - Chronic systolic (congestive) heart failure (4) DM2 (diabetes mellitus, type 2) Status: Chronic Qualifiers: Diabetes mellitus usp insulin use: with termination clerk use Diabetes mellitus complication status: with kidney complications Diabetes mellitus complication detail: with chronic kidney disease Chronic kidney disease stage: stage 4 (severe) Qualified Code(s): E11.22 - Type 2 diabetes mellitus with diabetic chronic kidney disease; N18.4 - Chronic kidney disease, stage 4 (severe); Z79.4 - terminal gauger (current) use of insulin - Plan -Nephrology consulted. Renal US ordered. Renal diet. -Initial troponin and repeat after 3 hours slightly elevated. Will recheck in 6 hours and also check CPK and CKMB. -ACHS accu checks with mild sliding scale insulin -Urinalysis, urine sodium & creatinine pending. EDIE likely prerenal/secondary to lasix. BUN 44 -Monitor and replete electrolytes per protocol -Reconcile and continue home medications -Eliquis (home med) for VTE ppx -Full code Discharge Plan: Home Plan to discharge in: 24 Hours - Advance Directives Does patient have a Living Will: No Does patient have a Durable POA for Healthcare: No - Code Status/Comfort Care Code Status Assessed: Yes (Full) Critical Care: No Time Spent Managing Pts Care (In Minutes): 50 <Gwen Hsu - Last Filed: 03/18/22 20:16> Date of Service: 03/18/22 Subjective: HPI as mentioned above Physical Examination: Vitals: Afebrile vital signs are stable Physical exam: Cardiovascular: Within normal limits. Lungs: Within normal limits Abdomen: Within normal limits Neuro: Awake, alert, oriented to person place and time Assessment: 1. Acute kidney injury Plan: 1. Continue with current plan of care as mentioned above <Seng Platt - Last Filed: 03/19/22 15:23>
[2022-03-18] MEDS ORDERED: NA CHLORIDE 0.9% 500 ML IV ONE (21:25)
[2022-03-18] MEDS: INSULIN -REGULAR HUMAN 50 UNIT/0.5 ML ML SQ SCH (21:25)
[2022-03-18] MEDS ORDERED: ONDANSETRON 4 MG/2 ML VIAL IV PRN (21:25)
[2022-03-18] MEDS ORDERED: ACETAMINOPHEN 500 MG TAB PO PRN (21:25)
[2022-03-18] MEDS ORDERED: APIXABAN 5 MG TABLET PO SCH (21:25)
[2022-03-18 21:59] VITALS: BMI 32.6
[2022-03-18] MEDS ORDERED: APIXABAN 5 MG TABLET PO ONE (22:00)
[2022-03-18 22:19] LABS: CKMB Creatine Kinase MB 3.1 ng/mL (1.0-3.6)
[2022-03-19 06:14] LABS: Hematocrit 36.3 % (39.6-49.0); Lymphocytes % 17.7 % (15.3-44.8); MCV 86.8 fL (80-100); MPV 7.4 fL (7.6-11.3); RBC Red Blood Cell Count 4.18 M/uL (4.33-5.43)
[2022-03-19 06:38] LABS: Magnesium 2.3 mg/dL (1.8-2.4); Phosphorus 3.4 mg/dL (2.5-4.9); Potassium 4.1 mmol/L (3.5-5.1)
[2022-03-19 06:43] LABS: Thyroid Stimulating Hormone 6.75 uIU/mL (0.360-3.740)
[2022-03-19] MEDS: INSULIN -REGULAR HUMAN 50 UNIT/0.5 ML ML SQ SCH ×2 (07:30→11:30)
--- NOTE | 2022-03-19 08:04 | RAD REPORT ---
EXAM DESCRIPTION: US - Renal Ultrasound-Complete - 03/18/2022 10:18 pm CLINICAL HISTORY: EDIE COMPARISON: Stone Protocol dated 03/18/2022 FINDINGS: The right kidney measures 10.1 x 5.8 x 6.0 cm. The left kidney measures 8.5 x 4.9 x 4.7 c m. Left kidney appears slightly smaller than the right kidney in the CT study is well. Renal cortical thickness and echogenicity are normal. No hydronephrosis or suspicious renal mass. Approximately 7 m illimeter echogenic focus in the lower pole left kidney is identified matching the calcifications see n on the March 18 CT study. Bladder assessment was limited due to lack of filling. No gross abnormality seen. IMPRESSION: No hydronephrosis or suspicious renal mass. Cortical thickness and echogenicity are within normal range for each kidney. There is a 7 mm nonobstr ucting stone in the lower pole of the left kidney.
--- NOTE | 2022-03-19 08:06 | RAD REPORT ---
EXAM DESCRIPTION: RAD - Chest Single View - 03/18/2022 10:22 pm CLINICAL HISTORY: elevated troponin, chf COMPARISON: Two view chest 12/09/2021 TECHNIQUE: AP portable chest image was obtained 03/18/2022 10:22 pm . FINDINGS: Lungs are clear. Heart and vasculature are normal. No measurable pleural effusion and no p neumothorax. No acute bony abnormality seen. No acute aortic findings suspected. Right shoulder prost hesis in place. Sternotomy wires are in place. Right-sided defibrillator/pacemaker remains in place. IMPRESSION: No acute cardiopulmonary process. No significant change from comparison study.
[2022-03-19 08:55] VITALS: BP 154/70; TEMP 98.8
[2022-03-19] MEDS ORDERED: APIXABAN 5 MG TABLET PO SCH (09:00)
[2022-03-19 11:18] VITALS: O2SAT 98
--- NOTE | 2022-03-19 15:24 | P.DS ---
Discharge Date: 03/19/22 Disposition: ROUTINE DISCHARGE Discharge Condition: GOOD Reason for Admission: EDIE, Elevated Troponin Brief History of Present Illness: Patient is a 71 y/o M with PMH of IDDM, systolic CHF, afib on eliquis, CAD, and HTN who presented to the ED reporting abnormal lab results. Patient states that his Creatinine was 3.91 at a routine cardiology appointment. He denies any symptoms. He reports he has been working outside but has been drinking plenty of water. He states that yesterday, his designer and patternmaker told him to stop taking his eliquis and lasix (but is not sure why). Labs in the ED significant for Cr 3.06, troponin 59.2, BUN 44. Repeat troponin 3 hours later was 74.7. Patient denies chest pain. Pacemaker/defibrillator in place. CT abd/pelv negative. ED provider wishes to admit patient for observation. Hospital Course: Patient has done well during hospital stay. Patient clinical symptoms are improved. Patient will follow-up with his designer and patternmaker as an outpatient. Patient has been advised to continue his Lasix at least every other day and to make his follow-up appointment so his designer and patternmaker can decide how often he needs to take the diuretics. Hold anticoagulation. Vital Signs/Physical Exam: Temp Pulse Resp BP Pulse Ox 98.8 F 69 14 154/70 H 98 03/19/22 08:00 03/19/22 08:00 03/19/22 08:00 03/19/22 08:00 03/19/22 08:00 General: Alert, In no apparent distress, Oriented x3 Laboratory Data at Discharge: WBC 5.9 K/uL (4.3-10.9) D 03/19/22 06:03 Hgb 12.3 g/dL (13.6-17.9) L 03/19/22 06:03 Hct 36.3 % (39.6-49.0) L 03/19/22 06:03 Plt Count 186 K/uL (152-406) 03/19/22 06:03 Sodium 142 mmol/L (136-145) 03/19/22 06:03 Potassium 4.1 mmol/L (3.5-5.1) 03/19/22 06:03 BUN 34 mg/dL (7-18) H 03/19/22 06:03 Creatinine 2.45 mg/dL (0.55-1.3) H 03/19/22 06:03 Glucose 111 mg/dL (74-106) H 03/19/22 06:03 Phosphorus 3.4 mg/dL (2.5-4.9) 03/19/22 06:03 Magnesium 2.3 mg/dL (1.8-2.4) 03/19/22 06:03 Total Bilirubin 0.4 mg/dL (0.2-1.0) 03/18/22 13:32 AST 26 U/L (15-37) 03/18/22 13:32 ALT 36 U/L (12-78) 03/18/22 13:32 Alkaline Phosphatase 45 U/L (45-117) 03/18/22 13:32 Triglycerides 242 mg/dL (<150) H 03/19/22 06:03 Cholesterol 156 mg/dL (<200) 03/19/22 06:03 HDL Cholesterol 28 mg/dL (40-60) L 03/19/22 06:03 Cholesterol/HDL Ratio 5.57 03/19/22 06:03 Lipase 216 U/L (73-393) 03/18/22 13:32 Home Medications: Rosuvastatin [Crestor*] 40 mg PO BEDTIME 02/10/17 Magnesium Oxide [Mag 0X*] 400 mg PO BID 03/25/18 carvediloL [Coreg*] 12.5 mg PO BID 03/25/18 Amiodarone HCl [Pacerone] 200 mg PO DAILY 12/09/21 Aspirin [Ecotrin 81 MG] 81 mg PO DAILY 12/09/21 Digoxin [Lanoxin*] 0.125 mg PO DAILY 12/09/21 Dulaglutide [Trulicity] 3 mg PO EVERY 7TH DAY 12/09/21 Empagliflozin [Jardiance] 10 mg PO DAILY 12/09/21 Fenofibrate [Tricor*] 145 mg PO DAILY 12/09/21 Insulin Aspart [Novolog Flexpen] 17 unit SQ AC 12/09/21 Insulin Degludec [Tresiba Flextouch U-200] 60 unit SQ DAILY 12/09/21 Sacubitril/Valsartan [Entresto 49 mg-51 mg Tablet] 1 tab PO BID 12/09/21 Sodium Zirconium Cyclosilicate [Lokelma] 5 gm PO DAILY 12/09/21 Physician Discharge Instructions: -DC IV and DC home -Follow-up with PCP in 1 to 2 weeks -Follow-up with Cardiology and Nephrology in 1 to 2 weeks -Please call Dr. Platt at [phone] if any questions regarding hospital stay -Please call nursing station at [phone] if any nursing or medication questions -Return to the emergency room if symptoms worsen Diet: Low sodium (1800 kcal ADA diet/heart healthy) Activity: Fall precautions Followup: Paula Guzman, DO [Primary Care Provider] - (Call to schedule appointment) Time spent managing pt's care (in minutes): 35
--- NOTE | 2022-03-19 17:27 | CON ---
Date of Consultation: 03/19/2022 Requesting Provider: Seng Platt MD Reason For Consultation: Renal insufficiency. History Of Present Illness: Mr. Hyde is a 71-year-old male with a longstanding history of CKD 3B/4, who has asked him to the hospital by his Cardiology team secondary to elevated creatinine. The patie nt has been with his Cardiology team, undergoing his management for systolic CHF as well as a recent PAD workup and was noted to have creatinines from 3.6 to 3.9 which is of his baseline approximately 2 .5. 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 He is on some medications, which could have put him at risk for volume depletion, which were Entresto and furosemi de. He is seen here in the hospital and at this time, he looks well. He denied use of any NSAIDs or any recent iodinated contrast. Going through his medications, he states that he has been on this dose of Entresto for over 6 months. He states that his Lasix dose of 40 mg daily has been unchanged and he has also been on Jardiance f or several months. He denies any urinary symptoms. Past Medical History: Significant for insulin-dependent diabetes, systolic congestive heart failure, atrial fibrillation on Eliquis, coronary artery disease and hypertension as well as chronic kidney d isease stage 3, baseline creatinine 2.5. Social History: Noncontributory. Physical Examination: Vital Signs: Blood pressure 134/70, pulse 69, afebrile. Blood pressure on admission was 156/70. In put and output not measured. General: No acute distress. Heart: Regular rate and rhythm. No murmurs, rubs, or gallops. Lungs: Grossly clear. Abdomen: Soft. Extremities: No edema. Laboratory Data: CBC reviewed. Serum chemistry; BUN and creatinine today 34/2.45 with potassium of 4.1, calcium 8.3. TSH slightly elevated at 6.7. In terms of BUN and creatinine trend, the patient d id present with BUN and creatinine 44/3.06. UA was pending. COVID testing was negative. Current Medications: Reviewed. Impression: 1.Acute kidney injury in the setting of volume depletion. 2.Renal asymmetry, possible renal artery stenosis, however, asymptomatic from that regard. 3.Chronic systolic congestive heart failure. 4.Hypertension. 5.Insulin-dependent diabetes mellitus. Plan: The patient can be restarted on his heart failure regimen. I have even recommended the patien t restart his Lasix for the time being. I have advised the patient that he is currently likely volum e depleted in the setting of use of those medications with his extreme heat exposure. I have advised him not to remain in the heat for the next 1 week. He is having close followup with Cardiology and he will need followup with Dr. Cowart in the next 2 weeks with lab work. The patient agrees with staying out of the heat for prolonged periods and will adhere to the followup plan. The patient's renal asymmetry can be further worked up by Cardiology; however, the patient's renal fu nction remains stable. He does not have any other sequela of renal artery stenosis and he is on an A RB through his Entresto which will help offset any of the secondary findings that occur with unilater al renal artery stenosis. The patient cleared to discharge from renal perspective with close followup as stated above. /APARNA Voice ID: [id number] Report ID: [id number]
--- NOTE | 2022-03-20 02:42 | CON ---
Date of Consultation: 03/19/[address] Platt's service on 03/18/2022. I saw him on 03/19/2022. Reason For Consultation: Elevated troponin and acute kidney injury. History Of Present Illness: Mr. Hyde is 71, very well known to me from previous office visits and ad mission, is known to have chronic systolic congestive heart failure. He is followed by me and the F team at [facility]. He was sent to the hospital because of the elevated creatinine of 3.05 . He has a history of CHF, CAD, dyslipidemia, diabetes, atrial fibrillation, defibrillator with bive ntricular pacemaker. He is completely asymptomatic, but his blood work showed a creatinine of 3.05. He was instructed to stop his Eliquis and Lasix, to come to the hospital. Nephrology consultation i s pending. Past Medical History: As stated above. Allergies: HE IS ALLERGIC TO XARELTO, LISINOPRIL, AND DEMEROL. Review of Systems: Negative. Social History: Negative. Family History: Negative. Medications: At home include Jardiance, amiodarone, aspirin, insulin, Crestor, digoxin, TriCor, magn esium, Trulicity, Coreg, and Entresto. Physical Examination: General: Mr. Hyde is very pleasant as always. Vital Signs: Stable. He was afebrile. He was in a paced rhythm. HEENT: Negative. Neck: Supple with no bruit. Chest: Clear. Cardiac: Revealed a regular rhythm and rate. No murmurs, gallops, or rubs. Abdomen: Benign. Extremities: Revealed no clubbing, cyanosis, or edema. Diagnostic Data: Creatinine was 3.05, improved with hydration to 2.45. Troponin was 75. BNP was 30 53. His HDL was 28. Impression And Plan: 1.Acute kidney injury, most likely secondary to volume depletion because of the heat and because of diuresis. I agree with holding the Lasix and may be holding the Eliquis. I will continue the Entres to. Hydrate him gently. See what Nephrology says. Renal ultrasound is pending. His elevated tropo hailee is secondary to demand ischemia from his chronic congestive heart failure as well as renal insuff iciency. No need for any cardiac intervention at this point. Certainly no need to repeat any cardia c workup. He normally sees Dr. Cowart as an outpatient, and he will see him and he will see me afte r he goes home. 2.His other problems include chronic systolic congestive heart failure that is stable. 3.Dyslipidemia that is controlled. 4.Diabetes, fairly well controlled. 5.He has history of coronary artery disease, biventricular pacemaker, automatic implantable cardiove rter-defibrillator, and atrial fibrillation. All of those are stable. We need to definitely continu e his amiodarone, aspirin, digoxin, TriCor, Trulicity, Jardiance, insulin, Crestor, magnesium, Coreg, and Entresto for now. CHRISTINA/APARNA Voice ID: [id number] Report ID: [id number]
--- NOTE | 2022-03-21 12:49 | EKG ---
Test Date: 2022-03-18 Test Time: 20:29:52 Molding Supervisor: ENOC MEASUREMENT RESULTS: Intervals: Rate: 62 CO: 238 QRSD: 114 QT: 412 QTc: 418 Burt: P: 77 CO: 238 QRS: 40 T: 127 INTERPRETIVE STATEMENTS: Sinus rhythm with 1st degree AV block Incomplete left bundle branch block Nonspecific ST and T wave abnormality Abnormal ECG Compared to ECG 12/09/2021 13:43:52 No significant changes Electronically Signed On 03-21-22 12:47:32 CDT by Buzz Ag
--- OUTSIDE RECORDS SUMMARY | 2022-04-05 07:02 | XMS REPORT | Continuity of Care Document ---
:1950 Author Organization [facility] t Address [address] [place] [address] Care Team Providers Name Role Phone Kennedi Frod MD Primary Care Physician Paula Guzman Attending Clinician Unavailable JOSSELINE Attending Clinician Unavailable SHANEL Attending Clinician Unavailable VALERIE Attending Clinician Unavailable JORGE LUIS Attending Clinician Unavailable ANGELICA Attending Clinician Unavailable SUZETTE Attending Clinician Unavailable FABIOLA Attending Clinician Unavailable Murray Corrales MD Attending Clinician MD MARY Attending Clinician Unavailable Esme MANJARREZ Attending Clinician [...] Policy Number Effective Date Expiration Date S ource [employer] MEDICARE PPO [id number] 2016 00:00:00 Problems [...] pain 00:00: 00 Left Left Problem Active [facility] shoulder shoulder Physic i pain pain ans Traumatic Traumatic Problem Active [facility] rotator rotator Physici cuff tear, cuff tear, an s left, left, initial initial encounter encounter Calcific Calcific Problem Active UT tendinitis tendinitis Ph ysici of left of left ans shoulder shoulder Cardiac Cardiac Problem Active UT defibrilla defibrilla Ph ysici tor in tor in ans place place Strain of Strain of Problem Active UT left left Physici biceps, biceps, ans initial initial encounter encounter Subacromia Subacromia Problem Active U T l l Physici impingemen impingemen an s t of left t of left shoulder shoulder Allergies, Adverse Reactions, Alerts Allergy Allergy Status [...] Active 2016-[address] [facility] LISINOPR Allergy Active 2016-[address] [place] [facility] RIVAROXA Allergy Active 2016-[address] [facility] [address] [facility] Demerol Allergy Active [facility] SOLN to drug Physici (finding ans ) lisinopr Allergy Active [facility] to drug Physici (finding ans ) Xarelto Allergy Active UT TABS to drug Physici (finding ans ) Social History Social Habit Start Date Stop Date Quantity Comments Source Exposure to SARS-CoV-2 Not sure [facility] (event) Sex Assigned At [birth year] [facility] 00:00:00 00:00:00 Smoking Status Start Date Stop Date Source Tobacco smoking consumption unknown [facility] Medications Ordered Filled Start Stop Current Ordering Indication Dosage Frequency Signature Comments Components Source Medication Medication Date Date Medication? Clinician (SIG) Name Name semaglutide Yes Inject UT (Ozempic, 1 5-19 under the Hea lth MG/DOSE,) 2 17:39: skin. MG/1.5ML 40 solution pen-injecto r semaglutide 2020-0 Yes Inject UT (Ozempic, 1 5-19 under the Hea lth MG/DOSE,) 2 17:39: skin. MG/1.5ML 40 solution pen-injecto r semaglutide 2020-0 Yes Inject UT (Ozempic, 1 5-19 under the Hea lth MG/DOSE,) 2 17:39: skin. MG/1.5ML 40 solution pen-injecto r insulin 0 Yes Inject UT degludec 5-19 under the [...] 17:39: (one) time 38 each day. semaglutide 2021-0 Yes Inject UT (Ozempic, 1 5-19 under the Hea lth MG/DOSE,) 2 12:39: skin. MG/1.5ML 40 solution pen-injecto r insulin 2020-0 Yes Inject UT degludec 5-19 under the Health (Tresiba) 12:39: skin. 100 UNIT/ML 39 injection linaGLIPtin 2021-0 Yes 1{tbl} QD Take 1 UT -metFORMIN 5-19 tablet by Heal th HCl 12:39: mouth 1 2.5-1000 MG 39 [...] HYDROcodone Yes SALVADOR 1-2 PO Q 6 UT -Acetaminop -Acetaminop 5-06 MANJARREZ M.D. HRS PRN Physici hen 5-325 hen 5-325 00:00: PAIN ans MG Oral MG Oral 00 Tablet Tablet HYDROcodone Yes 1-2 PO Q 6 UT -acetaminop 5-06 HRS PRN Healt h hen ([place]) 00:00: PAIN 5-325 MG 00 tablet HYDROcodone Yes 1-2 PO Q 6 UT -acetaminop 5-06 HRS PRN Healt h hen ([place]) 00:00: PAIN 5-325 MG 00 tablet HYDROcodone Yes 1-2 PO Q 6 UT -acetaminop 5-06 HRS PRN Healt h hen ([place]) 00:00: PAIN 5-325 MG 00 tablet HYDROcodone 2020-0 Yes 1-2 PO Q 6 UT -acetaminop 5-06 HRS PRN Healt h hen ([place]) 00:00: PAIN 5-325 MG 00 tablet Eliquis [...] 00:00: (two) 00 times a day. Trulicity 2020-0 Yes .75mg Inject UT 0.75 [...] MM misc 00:00: ONCE DAILY 00 NovoFine Yes UT Plus 32G X 3-03 DIRECTED Healt h 4 MM misc 00:00: ONCE DAILY 00 NovoFine Yes UT Plus 32G X 3-03 [...] tablet 00 (one) time each day. amiodarone 2020-1 Yes 200mg QD Take 200 UT (Pacerone) 0-08 mg by Health 200 MG 00:00: mouth 1 tablet 00 (one) time each day. amiodarone 2019- Yes 200mg QD Take 200 UT (Pacerone) [...] A WEEK ( SUN,SUN AND SUNDAY) metoclopram 2019- Yes TAKE 3 UT jassi 9-03 TABLETS BY [employer] (Reglan) 10 00:00: MOUTH MG tablet 00 DIRECTED USE DIRECTED PER YOUR COLONOSCOP Y PREP PACKET metoclopram Yes TAKE 3 UT jassi 9-03 TABLETS BY [employer] (Reglan) 10 00:00: MOUTH MG tablet 00 DIRECTED USE DIRECTED PER YOUR COLONOSCOP Y PREP PACKET metoclopram Yes TAKE 3 UT jassi 9-03 TABLETS BY Health (Reglan) 10 00:00: MOUTH MG tablet 00 DIRECTED USE DIRECTED PER YOUR COLONOSCOP Y PREP PACKET metoclopram Yes TAKE 3 UT jassi 9-03 TABLETS BY [employer] (Reglan) 10 00:00: MOUTH MG tablet 00 DIRECTED USE DIRECTED PER YOUR COLONOSCOP Y PREP PACKET Ozempic Ozempic 2020- No Elizabeth as Commo n 12-27 [place] directed Spirit 00:00: 00:00 - CHI 00 :00 [facility] Tresiba Tresiba 2019- No Elizabeth 70 units C ommon FlexTouch FlexTouch 4-12 04-10 [place] in am and Spirit 00:00: 00:00 increase - CHI 00 :[address] every 3 [facility] days until Medical fasting Center glucose less 120 max 70 units daily [...] 400 UT oxide 3-28 mg by Health ([facility]-Ox) 00:00: mouth 400 MG 00 twice a tablet day. Digoxin Digoxin 2017-0 Yes Elizabeth 1 tablet Co mmon 2-20 [place] Spirit 00:00: - CHI 00 [facility] Amiodarone Amiodarone 2017-0 Yes Elizaebth 1 tablet Common HCl HCl 2-20 [place] [facility] 00:00: - CHI 00 [facility] Bumetanide Bumetanide 2018-0 Yes Elizabeth as Common 2-20 [place] directed Spirit 00:00: - CHI 00 [facility] sacubitril- 2016-09 Yes Comments: U T valsartan 2-21 | Filled Health ([employer]) 00:00: Date: Jan 082017 tablet 12:00AM | Patient Notes: TAKE 1 TABLET BY MOUTH 2 (TWO) TIMES DAILY. Duration: 30 aspirin 81 2016-09 Yes 81mg QD Take 81 mg U T MG EC 2-21 by mouth 1 Health tablet 00:00: (one) time 00 each day. sacubitril- 2016-09 Yes Comments: U T valsartan 2-21 | Filled Health ([employer]) 00:00: Date: Jan 08 MG 2017 tablet [...] each day. Carvedilol Carvedilol Yes Elizabeth as Co mmon [place] directed [facility] Crestor Crestor Yes Elizabeth 1 tablet Comm on [place] [facility] Nitroglycer Nitroglycer Yes Elizabeth not Common in in [place] defined [facility] Tricor Tricor Yes Elizabeth 1 tablet Common [place] with food [facility] Albuterol Albuterol Yes Elizabeth 3 ml as C ommon Sulfate Sulfate [place] needed [facility] Eliquis Eliquis Yes Elizabeth 1 Common [place] [facility] Entresto Entresto Yes Elizabeth one Common 97/103mg 97/103mg [place] [facility] Glimepiride Glimepiride Yes Elizabeth TAKE 1 Common [place] TABLET AT Spirit BEDTIME [facility] Lancets Lancets Yes Elizabeth one Common Super Thin Super Thin [place] [facility] Glucometer Glucometer Yes Elizabeth one Co mmon [place] [facility] Aspir-81 -81 Yes Elizabeth 1 tablet Co mmon [place] [facility] NovoFine NovoFine Yes Elizabeth as Common Plus Plus [place] directed Spirit - [facility] Immunizations Ordered Immunization Filled Immunization Date Status Commen ts Source Name Name Covid-19 Wes 2020-12-04 Completed [facility] SARS-CoV-2 00:00:00 Vaccination Covid-19 Moderna 2020-12-04 Completed [facility] SARS-CoV-2 00:00:00 Vaccination Covid-19 Moderna 2020-12-04 Completed [facility] SARS-CoV-2 00:00:00 Vaccination Covid-19 Moderna 2020-12-04 Completed [facility] SARS-CoV-2 00:00:00 Vaccination Covid-19 Moderna 2020-10-26 Completed [facility] SARS-CoV-2 00:00:00 Vaccination Covid-19 Moderna 2020-10-26 Completed [facility] SARS-CoV-2 00:00:00 Vaccination Covid-19 Isabela 2020-10-26 Completed [facility] SARS-CoV-2 00:00:00 Vaccination Covid-19 Isabela 2020-10-26 [facility]pleted [facility] SARS-CoV-2 00:00:00 Vaccination Covid-19 Isabela 2020-09-29 Completed [facility] SARS-CoV-2 00:00:00 Vaccination Covid-19 Moderna 2020-09-29 Completed [facility] SARS-CoV-2 00:00:00 Vaccination Covid-19 Moderna 2020-09-29 Completed [facility] SARS-CoV-2 00:00:00 Vaccination Covid-19 Isabela 2020-09-29 Completed [facility] SARS-CoV-2 00:00:00 Vaccination FluAD FluAD 2019-06-12 Completed Common [facility] 00:00:00 - [facility] Influenza, 2018-05-24 [facility] injectable, MDCK, 00:00:00 preservative free, quadrivalent Influenza, 2018-05-24 [facility]pleted [facility] injectable, MDCK, 00:00:00 preservative free, quadrivalent Influenza, 2018-05-24 Completed [facility] injectable, MDCK, 00:00:00 preservative free, quadrivalent Influenza, 2018-05-24 Completed [facility] injectable, MDCK, 00:00:00 preservative free, quadrivalent Influenza, seasonal, 2017-07-05 Completed [facility] injectable, 00:00:00 preservative free Influenza, seasonal, 2017-07-05 Completed [facility] injectable, 00:00:00 preservative free Influenza, seasonal, 2017-07-05 Completed [facility] injectable, 00:00:00 preservative free Influenza, seasonal, 2017-07-05 Completed [facility] injectable, 00:00:00 preservative free Vital Signs Vital Name Observation Time Observation Value Comments Source Systolic blood pressure 2020-10-07 10:03:00 119 mm[Hg] [facility] Diastolic blood pressure 2020-10-07 10:03:00 63 mm[Hg] [facility] Heart Rate 2020-10-07 10:03:00 95 /min [facility] Procedures Procedure Date / Time Performed Performing Clinician Sourc e [UTP] Ortho - Surgery 2020-12-30 00:00:00 [facility] Scheduling [MMD] XRAY Chest 2 Views 2020-11-17 00:00:00 [facility] XRAY Chest 2 views [id number] 2020-11-17 00:00:00 [facility] MR Shoulder wo contrast 2020-10-07 00:00:00 [place] [facility] [id number] Plan of Care Planned Activity Planned Date Details Comments Source Diagnostic Test 2020-12-30 00:00:00 [UTP] Ortho - Surgery [facility] Pending Scheduling [code = [UTP] Ortho - Surgery Scheduling] Diagnostic Test 2020-10-07 00:00:00 MR Shoulder wo [facility] Pending contrast 08126 [code = 03809] Diagnostic Test 2020-10-07 00:00:00 MR Shoulder wo [facility] Pending contrast 91078 [code = 16989] Encounters Start End Encounter Admission Attending Care Care Encounter Source Date/Time Date/Time Type Type Clinicians Facility Department ID 2022-02-24 Outpatient Thomas Na [facility] [id number] Common 10:00:00 [id number] [facility] 2021-10-12 Outpatient Paula Guzman [facility] [id number] 2 Common 14:23:13 [id number] [facility] 2021-10-12 Outpatient Paula Guzman [facility] [id number] 2 Common 13:26:20 [id number] [facility] 2021-10-12 Outpatient Guzman, Na [facility] [id number] Common 13:26:05 [id number] [facility] 2021-10-12 Outpatient Guzman, Na [facility] [id number] Common 12:49:48 [id number] [facility] 2021-10-12 Outpatient Guzman, Na [facility] ST[facility] [id number] 2 Common 12:43:40 [id number] [facility] 2021-10-12 Outpatient Guzman, Na [facility] [id number] Common 12:18:20 [id number] [facility] 2021-10-12 Outpatient Guzman, Na [facility] [id number] Common 11:46:50 [id number] [facility] 2021-10-12 Outpatient Guzman, Na [facility] [id number] 2 Common 11:29:53 [id number] [facility] 2021-10-12 Outpatient Guzman, Na [facility] [id number] 2 Common 11:29:29 [id number] [facility] 2021-10-12 Outpatient Guzman, Na [facility] [id number] Common 11:27:56 [id number] [facility] 2021-05-11 Preadmit nullFlavo [facility] [id number] Ks moria 14:32:37 casey Steward 2021-03-04 Outpatient MANJARREZ, [facility] [id number] [place] 09:15:15 [facility] 2021-02-20 Outpatient MANJARREZ, [facility] [id number] UT 01:03:31 [facility] 2021-02-02 Outpatient TY, [facility] [id number] [place] 13:56:34 NICHOLETTE Heal 2021-02-02 Outpatient [facility] [id number] UT 13:55:48 [facility] 2021-01-26 Outpatient [facility] [id number] UT 10:48:01 Health 2021-01-22 Outpatient MANJARREZ, [facility] [id number] [place] 04:11:18 [facility] 2022-03-28 2022-03-28 Outpatient BAVARE, [facility] [id number] [place] 00:00:00 00:00:00 CHARUDATTA 850 Met [facility] 2022-03-28 2022-03-28 Outpatient EL-TALLAWI, [facility] [id number] [place] 00:00:00 00:00:00 KINAN [address] 2022-03-28 2022-03-28 Outpatient EL-TALLAWI, [facility] [id number] [place] 00:00:00 00:00:00 KINAN [address] 2022-03-15 2022-03-15 Outpatient BAVARE, [facility] [id number] [place] 00:00:00 00:00:00 CHARUDATTA 676 Met [facility] 2022-03-15 2022-03-15 Outpatient BAVARE, [facility] [id number] [place] 00:00:00 00:00:00 CHARUDATTA 997 Met [facility] 2022-03-09 2022-03-09 ambulatory [facility]LMLC ST[facility]C [id number] Common 00:00:00 00:00:00 [facility] 2022-03-08 2022-03-08 Outpatient ANGELICA, [facility] [id number] [place] 00:00:00 00:00:00 IMAD [address] 2022-03-03 2022-03-03 ambulatory [facility]LMLC ST[facility]C [id number] Common 00:00:00 00:00:00 [facility] 2022-02-28 2022-02-28 ambulatory STLMLC ST[facility]C [id number] Common 00:00:00 00:00:00 [facility] 2022-02-28 2022-02-28 ambulatory STLMLC STLMLC [id number] Common 00:00:00 00:00:00 [facility] 2022-02-03 2022-02-03 Outpatient SUZETTE, [facility] [id number] [place] 00:00:00 00:00:00 SERA [address] 2021-10-27 2021-10-27 ambulatory [facility]LMLC ST[facility]C [id number] Common 00:00:00 00:00:00 [facility] 2021-10-13 2021-10-13 Outpatient ANGELICA, [facility] [id number] [place] 00:00:00 00:00:00 IMAD 935 Method i 2021-10-13 2021-10-13 Outpatient ANGELICA, [facility] [id number] [place] 00:00:00 00:00:00 IMAD 933 Method i 2021-10-13 2021-10-13 Outpatient ANGELICA, [facility] [id number] [place] 00:00:00 00:00:00 IMAD 936 Method i 2021-09-21 2021-09-21 Outpatient ANGELICA, [facility] [id number] [place] 00:00:00 00:00:00 IMAD 628 Method i 2021-08-30 2021-08-30 ambulatory [facility]LMLC ST[facility]C [id number] Common 00:00:00 00:00:00 [facility] 2021-08-30 2021-08-30 ambulatory STLMLC STLMLC [id number] Common 00:00:00 00:00:00 [facility] 2021-06-06 2021-06-06 Outpatient STLMLC ST[facility]C [id number] Common 00:00:00 00:00:00 [facility] 2021-05-11 2021-05-11 Outpatient ANGELICA, [facility] [id number] [place] 00:00:00 00:00:00 IMAD 274 Method i 2021-05-03 2021-05-03 Outpatient STLMLC ST[facility]C [id number] Common 00:00:00 00:00:00 [facility] 2021-04-13 2021-04-13 Outpatient ANGELICA, [facility] [id number] [place] 00:00:00 00:00:00 IMAD 001 Method i 2021-04-13 2021-04-13 Outpatient ANGELICA, [facility] [id number] [place] 00:00:00 00:00:00 IMAD 874 Method i 2021-04-02 2021-04-02 Outpatient [facility]LMLC [facility] [id number] Common 00:00:00 00:00:00 [facility] 2021-03-29 2021-03-29 Outpatient STLMLC ST[facility] [id number] Common 00:00:00 00:00:00 [facility] 2021-03-24 2021-03-24 Outpatient STLMLC ST[facility]C [id number] Common 00:00:00 00:00:00 [facility] 2021-03-24 2021-03-24 Outpatient STLMLC ST[facility]C [id number] Common 00:00:00 00:00:00 [facility] 2021-03-24 2021-03-24 Outpatient [facility] [id number] [place] 00:00:00 00:00:00 411 Method i 2021-03-16 2021-03-21 Inpatient LESIAGenna, [facility] [id number] [place] 00:00:00 00:00:00 ASMA [address] 2021-03-17 2021-03-17 EXT [facility] OP Antoni, EXT MSRDP [id number] [place] 00:00:00 00:00:00 Brandt Murray LOCATION [id number] Health [id number] 2021-03-04 2021-03-04 Office Ty, [facility] [id number] 13:35:44 14:05:44 Visit Nicholette SUGAR [id number] LAND [id number] [id number] 2021-03-04 2021-03-04 Office Ty, [facility] [id number] [place] 13:35:44 14:05:44 Visit Nicholette SUGAR [id number] Health LAND [id number] 2021-03-02 2021-03-02 Outpatient ANGELICA, [facility] [id number] [place] 00:00:00 00:00:00 IMAD [address] 2021-02-02 2021-02-02 Office Manjarrez, [facility] [id number] 13:52:06 14:20:28 Visit Salvador SUGAR [id number] LAND [id number] [id number] 2021-02-02 2021-02-02 Office BILLY Manjarrez ORTHO [id number] [place] 13:52:06 14:20:28 Visit Salvador SUGAR [id number] He alth LAND [id number] [id number] 2021-01-31 2021-01-31 Outpatient SUZETTE, [facility] [id number] [place] 00:00:00 00:00:00 SERA [address] 2021-01-20 2021-01-20 Outpatient JOSSELINE, [facility] MHFB [id number] [facility] 12:07:00 17:40:00 [place] 2021-01-20 2021-01-20 [facility] [id number] [place] 13:00:00 13:00:00 t; SALVADOR MANJARREZ - [place] Paige Jaimes 1 ans M.D. 2021-01-14 2021-01-14 Outpatient STLMLC STLMLC [id number] Common 00:00:00 00:00:00 [facility] 2021-01-13 2021-01-13 Outpatient STLMLC STLMLC [id number] Common 00:00:00 00:00:00 [facility] 2021-01-03 2021-01-03 Outpatient STLMLC STLMLC [id number] Common 00:00:00 00:00:00 [facility] 2020-12-30 2020-12-30 [facility] [id number] [place] 09:30:00 09:30:00 t; SALVADOR MANJARREZ - [place] Paige Jaimes 1 ans M.D. 2020-12-21 2020-12-21 Outpatient STLMLC STLMLC [id number] Common 00:00:00 00:00:00 [facility] 2020-12-21 2020-12-21 [id number] [place] 00:00:00 00:00:00 SALVADOR 975 Method i 2020-12-21 2020-12-21 Outpatient CONSTANTINO, [facility] [id number] [place] 00:00:00 00:00:00 NADIM 340 Method i 2020-12-21 2020-12-21 Outpatient MANJARREZ, [facility] [id number] [place] 00:00:00 00:00:00 SALVADOR 274 Method i 2020-12-21 2020-12-21 Outpatient CONSTANTINO, [facility] [id number] [place] 00:00:00 00:00:00 NADIM 845 Method i 2020-10-07 2020-10-07 [facility] [id number] [place] 09:30:00 09:30:00 t; SALAVDOR MANJARREZ, - Sugar Phys ici Paige FRANCO [facility] 1 ans M.DMatteo 2020-09-23 2020-09-23 Outpatient [facility] [id number] Common 00:00:00 00:00:00 Spirit - [facility] 2020-08-04 2020-08-04 Outpatient ANGELICA, [facility] [id number] [place] 00:00:00 00:00:00 IMAD 667 Method i 2020-06-03 2020-06-03 Outpatient [facility] [id number] Common 09:00:00 09:00:00 t Specialty/U Sp mari Specialty rology - CHI /Urology Clinic [facility] 2020-05-06 2020-05-06 Outpatient BOB, [facility] [id number] [place] 00:00:00 00:00:00 JW 039 Method i 2020-04-28 2020-04-28 Outpatient ANGELICA, [facility] [id number] [place] 00:00:00 00:00:00 IMAD 297 Method i 2020-03-31 2020-03-31 Outpatient ANGELICA, [facility] [id number] [place] 00:00:00 00:00:00 IMAD 115 Method i 2020-03-31 2020-03-31 Outpatient ANGELICA, [facility] [id number] [place] 00:00:00 00:00:00 IMAD 016 Method i 2020-03-23 2020-03-23 Outpatient [facility] [id number] Common 08:20:00 08:20:[address] [facility] 2020-03-17 2020-03-17 Outpatient ANGELICA, [facility] [id number] [place] 00:00:00 00:00:00 IMAD [address] 2020-03-17 2020-03-17 Outpatient ANGELICA, [facility] [id number] [place] 00:00:00 00:00:00 IMAD [address] 2020-03-08 2020-03-08 Outpatient [facility] [id number] Common 10:55:00 10:55:[address] [facility] 2020-02-20 2020-02-20 Outpatient ANGELICA, [facility] [id number] [place] 00:00:00 00:00:00 IMAD 705 Method i 2020-02-19 2020-02-19 Outpatient ANGELICA, [facility] [id number] [place] 00:00:00 00:00:00 IMAD 578 Method i 2020-01-30 2020-01-30 Outpatient SUZETTE, [facility] [id number] [place] 00:00:00 00:00:00 SERA [address] 2020-01-28 2020-01-29 Outpatient ANGELICA, [facility] [id number] [place] 00:00:00 00:00:00 IMAD [address] 2019-12-03 2019-12-03 Outpatient [facility] [id number] Common 11:15:00 11:15:[address] [facility] 2019-06-12 2019-06-12 Outpatient [facility] [id number] Common 15:20:00 15:20:[address] [facility] 2018-12-27 2018-12-27 Outpatient [facility] [id number] Common 13:00:00 13:00:[address] [facility] 2018-12-17 2018-12-17 Outpatient [facility] [id number] Common 11:09:00 11:09:[address] [facility] 2018-12-01 2018-12-01 Outpatient [facility] [id number] Common 21:22:00 21:22:[address] [facility] 2018-10-28 2018-10-28 Outpatient [facility] [id number] Common 15:53:00 15:53:[address] [facility] 2018-09-26 2018-09-26 Outpatient [facility] [id number] Common 10:45:00 10:45:[address] [facility] 2018-08-05 2018-08-05 Outpatient [facility] [id number] Common 08:30:00 08:30:[address] [facility] 2018-05-06 2018-05-06 Outpatient [facility] [id number] Common 09:15:00 09:15:[address] [facility] Results Test Description Test Time Test Comments Results Result Comments Source SARS-CoV-2 (COVID-19) RNA [Presence] in Respiratory sp ecimen by 2021-03-17 02:14:28 SUMANTH with probe detection Test Item Value Reference Range Interpretation Comme nts SARS-CoV-2 (COVID-19) RNA [Presence] in Respiratory Not detected No t-Detected specimen by SUMANTH with probe detection (test code = 88917-6) Whether patient is employed in a healthcare setting (test code = 46986-0) Whether the patient has symptoms related to condition of interest (test code = 82624-6) Patient was hospitalized because of this condition (test code = 60435-0) Whether the patient was admitted to intensive care unit (ICU) for condition of interest (test code = 12139-1) Whether patient resides in a congregate care setting (test code = 42952-9) IMMUNOFIXATION ELECTROPHORESIS (ANAND)2018-03-22 09:59:00 Test Item Value Reference Range Interpretation Comments IMMUNOGLOBULIN G (IGG) 944 mg/dL 540-1822 (BEAKER) (test code = 427) IMMUNOGLOBULIN A (IGA) 137 mg/dL 63-484 (BEAKER) (test code = 639) IMMUNOGLOBULIN M (IGM) 41 mg/dL 22-293 (BEAKER) (test code = 638) SERUM ANAND ID (AKER) No monoclonal (test code = 1814) proteins detected. Polyclonal distribution of immunoglobulins. [id number] Angely Santos, ([facility]) (test code = (electronic 7875) signature) PROTEIN ELECTROPHORESIS, [id number] 16:21:00 Test Item Value Reference Range Interpretation [...] significant change from previous study performed 12-13-17. [id number] Angely Santos MD ([facility]) (test code = (electronic signature) 6703) PROTEIN TOTAL SERUM, 6.4 gm/dL 6.0-8.3 SPEP (BEAKER) (test code = 2660) TSH/FREE T4 IF [id number] 09:28:00 Test Item Value Reference Range Interpretation Comments THYROID STIMULATING HORMONE 3.29 uIU/mL 0.35-4.94 (BEAKER) (test code = 772) B-TYPE NATRIURETIC FACTOR (BNP)2018-03-15 09:11:00 Test Item Value Reference Range Interpretation Comments B-TYPE NATRIURETIC PEPTIDE (BEAKER) 641 pg/mL 0-100 H (test code = 700) LIPID [id number] 09:05:00 Test Item Value Reference Range Interpretation [...] 130-159 High 160-189 Very High >=190BASIC METABOLIC [id number] 09:05:00 Test Item Value Reference Range Interpretation [...] APPLICABLE FOR DIALYSIS PATIEN TS. HEPATIC FUNCTION [id number] 09:05:00 Test Item Value Reference Range Interpretation [...] 6-55 347) CBC W/PLT COUNT & AUTO [id number] 09:02:00 Test Item Value Reference Range Interpretation [...] PERCENT (BEAKER) (test code = 2801) HEMOGLOBIN [id number] 12:30:00 Test Item Value Reference Range Interpretation Comments HEMOGLOBIN A1C (BEAKER) (test code = 6.3 % 4.3-6.1 H 368) ALKALINE [id number] 10:37:00 Test Item Value Reference Range Interpretation Comments ALKALINE PHOSPHATASE (BEAKER) (test 43 U/L 40-150 code = 346) [id number] 10:37:00 Test Item Value Reference Range Interpretation Comments POTASSIUM (BEAKER) (test code = 5.6 meq/L 3.5-5.1 H 379) [id number] 10:37:00 Test Item Value Reference Range Interpretation Comments MAGNESIUM (BEAKER) (test code = 1.9 mg/dL 1.6-2.6 627) [id number] 10:37:00 Test Item Value Reference Range Interpretation Comments SODIUM (BEAKER) (test code = 381) 137 meq/L 136-145 AST (SGOT)2017-12-21 10:37:00 Test Item Value Reference Range Interpretation Comments AST (SGOT) (BEAKER) (test code = 353) 24 U/L 5-34 ALT (SGPT)2017-12-21 10:37:00 Test Item Value Reference Range Interpretation Comments ALT (SGPT) (BEAKER) (test code = 347) 23 U/L 6-55 BILIRUBIN, ADULT [id number] 10:37:00 Test Item Value Reference Range Interpretation Comments BILIRUBIN TOTAL (BEAKER) (test code 0.3 mg/dL 0.2-1.2 = 377) BILIRUBIN, [id number] 10:37:00 Test Item Value Reference Range Interpretation Comments BILIRUBIN DIRECT (BEAKER) (test 0.2 mg/dL 0.1-0.5 code = 706) [id number] 10:37:00 Test Item Value Reference Range Interpretation Comments CHLORIDE (BEAKER) (test code = 382) 102 meq/L 98-107 CREATINE KINASE (CK)2017-12-21 10:37:00 Test Item Value Reference Range Interpretation Comments CREATINE KINASE TOTAL (BEAKER) (test 166 U/L 29-200 code = 380) LACTATE DEHYDROGENASE (LDH)2017-12-21 10:37:00 Test Item Value Reference Range Interpretation Comments LACTATE DEHYDROGENASE (BEAKER) (test 223 U/L 125-220 H code = 635) BUN AND [id number] 10:37:00 Test Item Value Reference Range Interpretation [...] 1814) proteins detected. Polyclonal distribution of immunoglobulins. [id number] Angely Santos, (BEAKER) (test code = (electronic 9099) signature) PROTEIN ELECTROPHORESIS, [id number] 15:31:00 Test Item Value Reference Range Interpretation [...] present (BEAKER) (test code = in expected 2615) distribution. No monoclonal bands detected. [id number] Angely Santos MD (BEAKER) (test code = (electronic signature) 1961) PROTEIN TOTAL SERUM, 6.4 gm/dL 6.0-8.3 SPEP (BEAKER) (test code = 7920) [id number] 15:30:00 Test Item Value Reference Range Interpretation Comments POTASSIUM (BEAKER) (test code = 5.4 meq/L 3.5-5.1 H 379) TSH/FREE T4 IF [id number] 12:17:00 Test Item Value Reference Range Interpretation Comments THYROID STIMULATING HORMONE 3.18 uIU/mL 0.35-4.94 (BEAKER) (test code = 772) BASIC METABOLIC [id number] 12:02:00 Test Item Value Reference Range Interpretation [...] = 700) CBC W/PLT COUNT & AUTO [id number] 11:36:00 Test Item Value Reference Range Interpretation [...] PERCENT (BEAKER) (test code = 2801) HEMOGLOBIN [id number] 12:52:00 Test Item Value Reference Range Interpretation Comments HEMOGLOBIN A1C (BEAKER) (test code = 7.9 % 4.3-6.1 H 368) TSH/FREE T4 IF [id number] 12:22:00 Test Item Value Reference Range Interpretation Comments THYROID STIMULATING HORMONE 2.15 uIU/mL 0.35-4.94 (BEAKER) (test code = 772) B-TYPE NATRIURETIC FACTOR (BNP)2017-09-06 11:57:00 Test Item Value Reference Range Interpretation Comments B-TYPE NATRIURETIC PEPTIDE (BEAKER) 364 pg/mL 0-100 H (test code = 700) URIC [id number] 11:55:00 Test Item Value Reference Range Interpretation Comments URIC ACID (BEAKER) (test code = 6.6 mg/dL 2.6-7.2 773) [id number] 11:55:00 Test Item Value Reference Range Interpretation Comments MAGNESIUM (BEAKER) (test code = 1.6 mg/dL 1.6-2.6 627) BASIC METABOLIC [id number] 11:55:00 Test Item Value Reference Range Interpretation [...] NOT APPLICABLE FOR DIALYSIS PATIEN TS. LIPID [id number] 11:55:00 Test Item Value Reference Range Interpretation [...] 130-159 High 160-189 Very High >=190HEPATIC FUNCTION [id number] 11:55:00 Test Item Value Reference Range Interpretation [...] (test code = 13 U/L 6-55 347) [id number] 11:51:00 Test Item Value Reference Range Interpretation Comments PREALBUMIN (BEAKER) (test code = 29 mg/dL 14-45 586) PROTHROMBIN [id number] 11:41:00 Test Item Value Reference Range Interpretation [...] (test code = 2801) RAD, BONE DENSITY [id number] 09:58:00Reason for exam:->heart transplant evaluation. screening for osteoporosisShould this be performedat the bedside?->NoFINAL REPORT Technique: Bone mineral density of the lumbar spine and both femoral necks performed on 08/16/2017 Clinical History: Osteopenia screening. Comparison: None Bone mineral density measurementLumbar spine1.382 gm/wp2Iclh Femoral neck1.157 gm/dq7Nesbm Femoral neck1.120gm/cm2 Standard deviation from young adult [...] greater than 2.5 standard deviations Signed: Phyllis Langeepchris Verified Date/Time: 08/16/2017 09:58:30 Reading Location: [facility] Radiology Reading Room [id number] 12:15:00 Test Item Value Reference Range Interpretation Comments MAGNESIUM (BEAKER) (test code = 1.2 mg/dL 1.6-2.6 L 627) BASIC METABOLIC [id number] 12:15:00 Test Item Value Reference Range Interpretation [...] = 700) FLOW PRA CLASS I AND [id number] 11:17:00 Test Item Value Reference Range Interpretation Comments DATE OF SERUM (BEAKER) 325688 (test code = 2289) SERUM # (BEAKER) (test 658709 code = 2290) FLOW PRA CLASS I AND II See Scanned Report (test code = 2421) HLA [id number] 07:15:00 Test Item Value Reference Range Interpretation Comments HLA RESULT (BEAKER) (test See Scanned Report code = 2311) HLA-A AG1 (BEAKER) (test code = 2521) HLA-A AG2 (BEAKER) (test code = 2522) HLA-B AG1 (BEAKER) (test code = 2523) HLA-B AG2 (BEAKER) (test code = 2524) HLA-C AG1 (BEAKER) (test code = 2525) HLA-C AG2 (BEAKER) (test code = 8026) HLA-DR AG1 (BEAKER) (test code = 2518) HLA-DR AG2 (BEAKER) (test code = 2519) HLA-DQ AG1 (BEAKER) (test code = 2514) HLA-DQ AG2 (BEAKER) (test code = 2515) HLA-DRW (BEAKER) (test code = 9433) HERPES VIRUS ANTIBODY, [id number] 14:18:00 Test Item Value Reference Range Interpretation Comments HERPES VIRUS IGM Negative HSV 1 IGM = NEGHSV 2 (BEAKER) (test code = IGM = NEG 1808) TOXOPLASMA GONDII ANTIBODY, [id number] 14:18:00 Test Item Value Reference Range Interpretation Comments TOXOPLASMA IGM ANTIBODY (BEAKER) Negative (test code = 742) PROTEIN ELECTROPHORESIS, [id number] 09:23:00 Test Item Value Reference Range Interpretation [...] of all clinical and laboratory data available. [facility] Test perform ed T-119 (BEAKER) and interpret ed (test code = by [facility] an 0121) [place] Labs. PROTEIN TOTAL 6.7 gm/dL 6.0-8.5 RR: 6.1-8.1 g/ dL SERUM, SPEP (BEAKER) (test code = 6580) URINE PROTEIN ELECTROPHORESIS, [id number] 08:49:00 Test Item Value Reference Range Interpretation Comments PROTEIN, URINE 12 mg/dL 0-14 (BEAKER) (test code = 1569) ALBUMIN URINE ELP 33.0 % (BEAKER) (test code = 1018) GAMMA GLOBULIN 67.0 % URINE (BEAKER) (test code = 1015) UPEP, ID-438 Pattern consistent (BEAKER) (test with mixed code = 8196) glomerular and tubular proteinuria. [facility]- Test perfo rmed and 438 (BEAKER) interpreted by (test code = [employer] 2603) [place] L abs. POCT-GLUCOSE [id number] 17:07:00 Test Item Value Reference Range Interpretation Comments POC-GLUCOSE METER 283 mg/dL 70-110 H TESTED AT [place] [address] (BEAKER) ([facility] = [facility] 1538) [address] POCT-GLUCOSE [id number] 12:48:00 Test Item Value Reference Range Interpretation Comments POC-GLUCOSE METER 148 mg/dL 70-110 H TESTED AT [place] [address] ([facility] (test code = [facility] 1538) [address] POCT-GLUCOSE [id number] 07:37:00 Test Item Value Reference Range Interpretation Comments POC-GLUCOSE METER 154 mg/dL 70-110 H TESTED AT [place] [address] (BEAKER) (test code = [facility] Casey [facility] 1538) [address] [id number] 07:11:00 Test Item Value Reference Range Interpretation Comments MAGNESIUM (BEAKER) (test code = 1.5 mg/dL 1.6-2.6 L 627) BASIC METABOLIC [id number] 07:11:00 Test Item Value Reference Range Interpretation [...] 0-0 (BEAKER) (test code = 413) POCT-GLUCOSE [id number] 21:29:00 Test Item Value Reference Range Interpretation Comments POC-GLUCOSE METER 142 mg/dL 70-[address] [facility] 6720 (BEAKER) (test code = [place] 1538) [address] POCT-GLUCOSE [id number] 17:29:00 Test Item Value Reference Range Interpretation Comments POC-GLUCOSE METER 258 mg/dL 70-110 H TESTED AT [place] [address] ([facility]) (test code = DOUGLAS Peña [facility] 1538) [address] TOXOPLASMA GONDII ANTIBODY, [id number] 15:37:00 Test Item Value Reference Range Interpretation Comments TOXOPLASMA GONDII IGG ([facility]) (test Negative code = 419) POCT-GLUCOSE [id number] 11:56:00 Test Item Value Reference Range Interpretation Comments POC-GLUCOSE METER 190 mg/dL 70-110 H TESTED AT [place] [address] ([facility]) (test code = DOUGLAS Peña [facility] 1538) [address] CREATININE [id number] 09:09:00 Test Item Value Reference Range Interpretation Comments CREATININE CLEARANCE 56.5 mL/min 70.0-140.0 L ([facility]) (test code = 357) VOLUME, TOTAL (AKER) 2500 ml (test code = 1457) CREATININE URINE 46.2 mg/dL ([facility]) (test code = 375) [id number] Angely Santos MD ([facility]) (test code = (electronic signature) 3348) POCT-GLUCOSE [id number] 07:57:00 Test Item Value Reference Range Interpretation Comments POC-GLUCOSE METER 165 mg/dL 70-110 H TESTED AT [place] [address] ([facility]) (test code = IBEHTKS Casey [facility] 1538) [address] CBC (HEMOGRAM ONLY)2017-07-19 07:06:00 Test Item Value Reference Range Interpretation Comments WHITE BLOOD CELL COUNT (AKER) 6.5 K/ L 3.5-10.5 (test code = 775) RED BLOOD CELL COUNT (AKER) 4.15 M/ L 4.63-6.08 L (test code = 761) HEMOGLOBIN (BEAKER) (test code = 12.5 GM/DL 13.7-17.5 L 410) HEMATOCRIT (AKER) (test code = 37.8 % 40.1-51.0 L 411) MEAN CORPUSCULAR VOLUME (AKER) 91.1 fL 79.0-92.2 (test code = 753) [...] WBC 0-0 (BEAKER) (test code = 413) [id number] 04:55:00 Test Item Value Reference Range Interpretation Comments MAGNESIUM (BEAKER) (test code = 1.6 mg/dL 1.6-2.6 627) BASIC METABOLIC [id number] 04:55:00 Test Item Value Reference Range Interpretation [...] NOT APPLICABLE FOR DIALYSIS PATIEN TS. POCT-GLUCOSE [id number] 21:35:00 Test Item Value Reference Range Interpretation Comments POC-GLUCOSE METER 138 mg/dL 70-[address] [facility] 6720 ([facility]) (test code = [place] 1538) [address] POCT-GLUCOSE [id number] 17:20:00 Test Item Value Reference Range Interpretation Comments POC-GLUCOSE METER 108 mg/dL 70-[address] [facility] 6720 ([facility]) (test code = [place] 1538) [address] VARICELLA ZOSTER ANTIBODY, [id number] 15:46:00 Test Item Value Reference Range Interpretation Comments VARICELLA ZOSTER IGG (AL) ([facility]) > Al (test code = 3197) VARICELLA ZOSTER RESULT INTERPRETATIONS: <=0.8 Al Nonreactive: Presumed non-immune to VZV 0.9-1.0 Al Equivocal >=1.1 Al Reactive: Presumed immune to VZVHERPES VIRUS ANTIBODY, [id number] 15:45:00 Test Item Value Reference Range Interpretation Comments HERPES VIRUS IGG Negative HSV 1 IGG = NEGHSV 2 ([facility]) (test code = IGG = NEG 1807) CYTOMEGALOVIRUS ANTIBODY, [id number] 15:45:00 Test Item Value Reference Range Interpretation Comments CYTOMEGALOVIRUS IGG ANTIBODY Positive ([facility]) (test code = 790) CYTOMEGALOVIRUS ANTIBODY, [id number] 15:45:00 Test Item Value Reference Range Interpretation Comments CYTOMEGALOVIRUS IGM ANTIBODY Negative ([facility]) (test code = 816) EBV-VCA ANTIBODY, [id number] 15:45:00 Test Item Value Reference Range Interpretation Comments SARY-NGUYEN VCA IGG ([facility]) (test Positive code = 983) EBV-VCA ANTIBODY, [id number] 15:45:00 Test Item Value Reference Range Interpretation Comments SARY-NGUYEN VCA IGM ([facility]) (test Negative code = 984) ANTI-NUCLEAR ANTIBODY (JOCELYNN)2017-07-18 11:50:00 Test Item Value Reference Range Interpretation Comments ANTI-NUCLEAR ANTIBODY (JOCELYNN) ([facility]) Negative Negative (test code = 418) POCT-GLUCOSE [id number] 11:47:00 Test Item Value Reference Range Interpretation Comments POC-GLUCOSE METER 179 mg/dL 70-[address] [facility] 6720 ([facility]) (test code = DOUGLAS Peña [place] 1538) [address] [id number] 10:39:00 Test Item Value Reference Range Interpretation Comments RPR SCREEN ([facility]) (test code = Nonreactive Nonreactive 420) POCT-GLUCOSE [id number] 07:35:00 Test Item Value Reference Range Interpretation Comments POC-GLUCOSE METER 167 mg/dL 70-[address] [facility] 6720 ([facility]) (test code = DOUGLAS Peña [place] 1538) [address] [id number] 07:35:00 Test Item Value Reference Range Interpretation Comments PHOSPHORUS (BEAKER) (test code = 2.9 mg/dL 2.3-4.7 604) [id number] 07:35:00 Test Item Value Reference Range Interpretation Comments MAGNESIUM (BEAKER) (test code = 1.8 mg/dL 1.6-2.6 627) BASIC METABOLIC [id number] 07:35:00 Test Item Value Reference Range Interpretation [...] NOT APPLICABLE FOR DIALYSIS PATIEN TS. PTH, [id number] 07:24:00 Test Item Value Reference Range Interpretation [...] code = 413) HEPATITIS B CORE ANTIBODY, [id number] 22:00:00 Test Item Value Reference Range Interpretation Comments HEPATITIS B CORE TOTAL ANTIBODY Nonreactive Nonreactive (BEAKER) (test code = 497) HEPATITIS PANEL, [id number] 22:00:00 Test Item Value Reference Range Interpretation Comments HEPATITIS A IGM ANTIBODY (BEAKER) Nonreactive Nonreactive (test code = 498) HEPATITIS B CORE IGM ANTIBODY Nonreactive Nonreactive (BEAKER) (test code = 645) HEPATITIS C ANTIBODY (BEAKER) Nonreactive Nonreactive (test code = 367) HEPATITIS B SURFACE ANTIGEN (2) Nonreactive Nonreactive (BEAKER) (test code = 2585) HIV-1 ANTIGEN WITH HIV-1/2 [id number] 22:00:00 Test Item Value Reference Range Interpretation Comments HIV-1 ANTIGEN WITH HIV 1\\T\\2 Nonreactive Nonreactive ANTIBODY (2) (BEAKER) (test code = 2586) HEPATITIS A ANTIBODY, [id number] 22:00:00 Test Item Value Reference Range Interpretation Comments HEPATITIS A IGG ANTIBODY (BEAKER) Nonreactive Nonreactive (test code = 2797) CREATININE, RANDOM [id number] 21:37:00 Test Item Value Reference Range Interpretation Comments CREATININE URINE (BEAKER) (test 150.2 mg/dL code = 375) Reference Range: No NormalsPROTEIN, RANDOM [id number] 21:37:00 Test Item Value Reference Range Interpretation Comments PROTEIN, URINE (BEAKER) (test code = 12 mg/dL 0-14 1569) [id number] 21:15:00 Test Item Value Reference Range Interpretation Comments PROSTATE SPECIFIC ANTIGEN (BEAKER) 1.0 ng/mL 0.0-4.0 (test code = 844) POCT-GLUCOSE [id number] 20:53:00 Test Item Value Reference Range Interpretation Comments POC-GLUCOSE METER 182 mg/dL 70-[address] [facility] 6720 (BEAKER) (test code = [place] 1538) [address] T4, [id number] 20:33:00 Test Item Value Reference Range Interpretation Comments FREE T4 (BEAKER) (test code = 655) 1.27 ng/dL 0.70-1.48 [id number] 20:33:00 Test Item Value Reference Range Interpretation Comments FERRITIN (BEAKER) (test code = 361) 75 ng/mL 5-275 VITAMIN D, [id number] 20:32:00 Test Item Value Reference Range Interpretation Comments VITAMIN D 25-OH (BEAKER) (test 24.7 ng/mL 6.6-49.9 code = 2764) Effective 06/27/2017: Reference Range ChangeNew: 6.6-49.9 ng/mL Previous: 13.0-47.8 ng/mLRecommended Vitamin D Target Range: 30.0-40.0 ng/mLTRANSFERRIN 2017-07-17 20:20:00 Test Item Value Reference Range Interpretation Comments TRANSFERRIN (BEAKER) (test code = 418 mg/dL 174-382 H 541) [id number] 20:17:00 Test Item Value Reference Range Interpretation Comments PREALBUMIN (BEAKER) (test code = 27 mg/dL 14-45 586) IRON, [id number] 20:17:00 Test Item Value Reference Range Interpretation Comments IRON (BEAKER) (test code = 547) 102 ug/dL 40-160 URIC [id number] 20:16:00 Test Item Value Reference Range Interpretation Comments URIC ACID (BEAKER) (test code = 8.3 mg/dL 2.6-7.2 H 773) [id number] 20:16:00 Test Item Value Reference Range Interpretation Comments PHOSPHORUS (BEAKER) (test code = 3.5 mg/dL 2.3-4.7 604) HEPATIC FUNCTION [id number] 20:16:00 Test Item Value Reference Range Interpretation [...] (test code = 17 U/L 6-55 347) [id number] 20:16:00 Test Item Value Reference Range Interpretation Comments AMYLASE (BEAKER) (test code = 349) 72 U/L 25-125 [id number] 20:16:00 Test Item Value Reference Range Interpretation [...] 222 U/L 125-220 H code = 635) [id number] 20:16:00 Test Item Value Reference Range Interpretation Comments LIPASE (BEAKER) (test code = 749) 43 U/L 8-78 RETICULOCYTE [id number] 19:56:00 Test Item Value Reference Range Interpretation Comments RETICULOCYTE COUNT PCT (BEGEORGE) (test 1.6 % 0.5-1.8 code = 575) CT, CHEST, WITHOUT [id number] 18:13:00FINAL REPORT CT of the Chest and [...] Garrettort Verified Date/Time: 07/17/2017 18:13:06 Reading Location: [facility] C0Y CT Body Reading Room CT, ABDOMEN, WITHOUT [id number] 18:13:00FINAL REPORT CT of the Chest and [...] MDReport Verified Date/Time: 07/17/2017 18:13:06 Reading Location: [facility] B1 C013Y CT Body Reading Room CT, BRAIN, WITHOUT [id number] 17:55:00FINAL REPORT CT Head without contrast CLINICAL [...] IMPRESSION: Small chronic right cerebellarinfarct. Signed: Keo Elizabethort Verified Date/Time: 07/17/2017 17:55:05 Reading Location: [facility] Radiology Reading Room 05:55 PMPOCT-GLUCOSE [id number] 14:27:00 Test Item Value Reference Range Interpretation Comments POC-GLUCOSE METER 121 mg/dL 70-110 H TESTED AT [place] [address] ([facility]) (test code = DOUGLAS Peña [facility] 1538) [address] POCT-GLUCOSE [id number] 07:28:00 Test Item Value Reference Range Interpretation Comments POC-GLUCOSE METER 158 mg/dL 70-110 H TESTED AT [place] [id number] ([facility]) (test code = DOUGLAS Peña [facility] 1538) [address] [id number] 04:57:00 Test Item Value Reference Range Interpretation Comments MAGNESIUM (BEAKER) (test code = 1.6 mg/dL 1.6-2.6 627) BASIC METABOLIC [id number] 04:57:00 Test Item Value Reference Range Interpretation [...] 0-0 (BEAKER) (test code = 413) POCT-GLUCOSE [id number] 21:00:00 Test Item Value Reference Range Interpretation Comments POC-GLUCOSE METER 160 mg/dL 70-110 H TESTED AT [facility] 6720 (BEAKER) (test code = DOUGLAS Peña [facility] 1538) [address] POCT-GLUCOSE [id number] 17:10:00 Test Item Value Reference Range Interpretation Comments POC-GLUCOSE METER 148 mg/dL 70-110 H TESTED AT [place] [address] (BEAKER) (test code = IBETHKS Casey [facility] 1538) [address] POCT-GLUCOSE [id number] 12:10:00 Test Item Value Reference Range Interpretation Comments POC-GLUCOSE METER 246 mg/dL 70-110 H TESTED AT [place] [address] ([facility]) (test code = [facility] Casey [facility] 1538) [address] POCT-GLUCOSE [id number] 08:32:00 Test Item Value Reference Range Interpretation Comments POC-GLUCOSE METER 186 mg/dL 70-110 H TESTED AT [place] [address] ([facility]) (test code = [facility] Casey [facility] 1538) [address] [id number] 06:35:00 Test Item Value Reference Range Interpretation Comments MAGNESIUM (BEAKER) (test code = 1.7 mg/dL 1.6-2.6 627) BASIC METABOLIC [id number] 06:35:00 Test Item Value Reference Range Interpretation [...] 0-0 (BEAKER) (test code = 413) POCT-GLUCOSE [id number] 20:53:00 Test Item Value Reference Range Interpretation Comments POC-GLUCOSE METER 228 mg/dL 70-110 H TESTED AT [place] [address] ([facility]) (test code = [place] 1538) [address] POCT-GLUCOSE [id number] 17:06:00 Test Item Value Reference Range Interpretation Comments POC-GLUCOSE METER 194 mg/dL 70-110 H TESTED AT [place] [address] ([facility]) (test code = DOUGLAS Peña [place] 1538) [address] POCT-GLUCOSE [id number] 13:27:00 Test Item Value Reference Range Interpretation Comments POC-GLUCOSE METER 272 mg/dL 70-110 H TESTED AT [place] [address] ([facility]) (test code = DOUGLAS Peña [place] 1538) [id number] POCT-GLUCOSE [id number] 09:14:00 Test Item Value Reference Range Interpretation Comments POC-GLUCOSE METER 172 mg/dL 70-[address] [facility] 67[address] (BEAKER) (test code = [place] 1538) [id number] 07:37:00 Test Item Value Reference Range Interpretation Comments MAGNESIUM (BEAKER) (test code = 2.2 mg/dL 1.6-2.6 627) BASIC METABOLIC [id number] 07:37:00 Test Item Value Reference Range Interpretation [...] MEAN CORPUSCULAR HEMOGLOBIN CONC 33.2 GM/DL 32.3-36.5 ([facility]) (test code = 752) RED CELL DISTRIBUTION WIDTH 12.6 % 11.6-14.4 ([facility]) (test code = 412) PLATELET COUNT ([facility]) (test 188 K/CU MM 150-450 code = 756) MEAN PLATELET VOLUME (AKER) 10.0 fL 9.4-12.4 (test code = 754) NUCLEATED RED BLOOD CELLS 0 /100 WBC 0-0 ([facility]) (test code = 413) POCT-GLUCOSE [id number] 21:21:00 Test Item Value Reference Range Interpretation Comments POC-GLUCOSE METER 315 mg/dL 70-110 H TESTED AT [place] [address] ([facility]) (test code = DOUGLAS Peña [facility] 1538) [id number] POCT-GLUCOSE [id number] 17:03:00 Test Item Value Reference Range Interpretation Comments POC-GLUCOSE METER 171 mg/dL 70-110 H TESTED AT [place] [address] ([facility]) (test code = DOUGLAS Peña [facility] 1538) [id number] POCT-GLUCOSE [id number] 12:23:00 Test Item Value Reference Range Interpretation Comments POC-GLUCOSE METER 204 mg/dL 70-110 H TESTED AT [place] [address] ([facility]) (test code = DOUGLAS Peña [facility] 1538) [id number] POCT-GLUCOSE [id number] 08:21:00 Test Item Value Reference Range Interpretation Comments POC-GLUCOSE METER 141 mg/dL 70-110 H TESTED AT [place] [address] ([facility]) ([facility] = [facility] 1538) [address] CBC (HEMOGRAM ONLY)2017-07-14 06:15:00 Test Item Value Reference Range Interpretation Comments WHITE BLOOD CELL COUNT ([facility]) 7.4 K/ L 3.5-10.5 (test code = 775) RED BLOOD CELL COUNT (AKER) 4.34 M/ L 4.63-6.08 L (test code = 761) HEMOGLOBIN (AKER) (test code = 12.9 GM/DL 13.7-17.5 L 410) HEMATOCRIT ([facility]) (test code = 39.4 % 40.1-51.0 L [...] WBC 0-0 (BEAKER) (test code = 413) [id number] 03:28:00 Test Item Value Reference Range Interpretation Comments MAGNESIUM (BEAKER) (test code = 1.5 mg/dL 1.6-2.6 L 627) LIPID [id number] 03:28:00 Test Item Value Reference Range Interpretation [...] 130-159 High 160-189 Very High >=190BASIC METABOLIC [id number] 03:28:00 Test Item Value Reference Range Interpretation Comments SODIUM (BEAKER) 138 meq/L 136-145 (test code = 381) POTASSIUM (BEAKER) 3.6 meq/L 3.5-5.1 (test code = 379) CHLORIDE (BEAKER) 101 meq/L 98-107 (test code = 382) CO2 (BEAKER) (test 28 meq/L 22-29 code = 355) BLOOD UREA NITROGEN 32 mg/dL 7-21 H (AKER) (test code = 354) CREATININE (AKER) 1.68 mg/dL 0.57-1.25 H (test code = 358) GLUCOSE RANDOM 172 mg/dL 70-105 H ([facility]) (test code = 652) CALCIUM (BEAKER) 8.6 mg/dL 8.4-10.2 (test code = 697) EGFR ([facility]) (test 41 mL/min/1.73 ESTIMA XIAO GFR IS code = 1092) sq m NOT ACCURATE CREATININE CLEARANCE IN PREDICTING GLOMERULAR FILTRATION RATE . ESTIMATED GFR I S NOT APPLICABLE FOR DIALYSIS PATIEN TS. [id number] 02:36:00 Test Item Value Reference Range Interpretation Comments PARTIAL THROMBOPLASTIN TIME 25.9 seconds 22.5-36.0 ([facility]) (test code = 760) POCT-GLUCOSE [id number] 22:55:00 Test Item Value Reference Range Interpretation Comments POC-GLUCOSE METER 206 mg/dL 70-[address] [facility] [address] ([facility]) (test code = [place]HIRAJ [place] 1538) [id number] [id number] 18:22:00 Test Item Value Reference Range Interpretation Comments PARTIAL THROMBOPLASTIN TIME 41.6 seconds 22.5-36.0 H ([facility]) (test code = 760) CREATINE KINASE (CK), TOTAL AND [id number] 12:57:00 Test Item Value Reference Range Interpretation Comments CREATINE KINASE TOTAL (AKER) 142 U/L 29-200 (test code = 380) CREATINE KINASE-MB ([facility]) (test 5.3 ng/mL 0.0-6.6 code = 750) CREATINE KINASE-MB INDEX ([facility]) 3.7 % (test code = 395) CK-MB Reference Range:<6.7 Normal6.7-10.0 Borderline>10.0 AbnormalTROPONIN [id number] 12:55:00 Test Item Value Reference Range Interpretation Comments TROPONIN I (AKER) (test code = 0.11 ng/mL 0.00-0.03 H [...] acidosis, acute neurological disease, and persistent tachyarrhythmia.POCT-GLUCOSE [id number] 11:57:00 Test Item Value Reference Range Interpretation Comments POC-GLUCOSE METER 105 mg/dL 70-[address] [facility] [address] (JOLEEN) (test code = [place] 1538) [address] HEMOGLOBIN [id number] 10:45:00 Test Item Value Reference Range Interpretation Comments HEMOGLOBIN A1C (JOLEEN) (test code = 7.1 % 4.3-6.1 H 368) TSH/FREE T4 IF [id number] 09:41:00 Test Item Value Reference Range Interpretation Comments THYROID STIMULATING HORMONE 1.16 uIU/mL 0.35-4.94 (JOLEEN) (test code = 772) U/S, RENAL, [id number] 09:15:00Reason for exam:->AKIFINAL REPORT Ultrasound of the [...] Trejo Verified Date/Time: 07/13/2017 09:15:34 Reading Location: [facility] [id number] Ultrasound Reading Room APTT 2017-07-13 08:56:00 Test Item Value Reference Range Interpretation Comments PARTIAL THROMBOPLASTIN TIME 27.7 seconds 22.5-36.0 (JOLEEN) (test code = 760) Prior to initiating heparinPLATELET [id number] 08:51:00 Test Item Value Reference Range Interpretation Comments PLATELET COUNT (BEAKER) (test 183 K/CU MM 150-450 code = 756) URINALYSIS W/ [id number] 08:45:00 Test Item Value Reference Range Interpretation [...] 516) SOURCE(BEAKER) (test code = 2795) POCT-GLUCOSE [id number] 07:58:00 Test Item Value Reference Range Interpretation Comments POC-GLUCOSE METER 186 mg/dL 70-[address] [facility] 67[address] (BEAKER) (test code = DOUGLAS [place] 1538) [address] RAPID DRUG SCREEN, [id number] 07:31:00 Test Item Value Reference Range Interpretation [...] situations. Chain of custody not maintained. Some kynm-cjz-onbhpye medications, as well as adulterants, may cause inaccurate results. Clinical correlation should be applied. A more comprehensive drug screen or confirmation of a detected drug may be performed upon request.CREATININE, RANDOM [id number] 07:25:00 Test Item Value Reference Range Interpretation Comments CREATININE URINE (BEAKER) (test 39.7 mg/dL code = 375) Reference Range: No NormalsSODIUM, RANDOM [id number] 07:25:00 Test Item Value Reference Range Interpretation Comments SODIUM URINE (BEAKER) (test code = 95 meq/L 243) Reference Range: No NormalsCREATINE KINASE (CK), TOTAL AND [id number] 07:05:00 Test Item Value Reference Range Interpretation Comments CREATINE KINASE TOTAL (BEAKER) 101 U/L 29-200 (test code = 380) CREATINE KINASE-MB (BEAKER) (test 3.8 ng/mL 0.0-6.6 code = 750) CREATINE KINASE-MB INDEX (BEAKER) 3.8 % (test code = 395) CK-MB Reference Range:<6.7 Normal6.7-10.0 Borderline>10.0 AbnormalTROPONIN [id number] 07:05:00 Test Item Value Reference Range Interpretation [...] and persistent tachyarrhythmia.RAD, CHEST, 1 VIEW, NON [id number] 01:09:00Reason for exam:->SHORTNESS OF BREATHShould this be [...] available for dictation secondary to technical issues ([facility] downtime). Signed: Whitney Mock Verified Date/Time: 07/13/2017 01:09:11 Reading Location: [address] Reading Room CREATINE KINASE (CK), TOTAL AND [id number] 00:42:00 Test Item Value Reference Range Interpretation Comments CREATINE KINASE TOTAL (BEAKER) 66 U/L 29-200 (test code = 380) CREATINE KINASE-MB (BEAKER) (test 2.1 ng/mL 0.0-6.6 code = 750) CREATINE KINASE-MB INDEX (BEAKER) 3.2 % (test code = 395) CK-MB Reference Range:<6.7 Normal6.7-10.0 Borderline>10.0 AbnormalTROPONIN [id number] 00:42:00 Test Item Value Reference Range Interpretation [...] acute neurological disease, and persistent tachyarrhythmia.BASIC METABOLIC [id number] 00:40:00 Test Item Value Reference Range Interpretation [...] = 700) CBC W/PLT COUNT & AUTO [id number] 00:16:00 Test Item Value Reference Range Interpretation [...]
== END 2022-03-19 13:20 | disposition home or self-care (01) ==
LOC: ER 12:38 → ERHOLD 19:52 → 2ND 20:49
PROVIDERS: ADMIT Hospitalist; ATTEND Hospitalist
DX: N17.9 Acute kidney failure, unspecified (principal); I13.0 Hypertensive heart and chronic kidney disease with heart failure and stage 1 through stage 4 chronic kidney disease, or unspecified chronic kidney disease; E11.22 Type 2 diabetes mellitus with diabetic chronic kidney disease; N18.4 Chronic kidney disease, stage 4 (severe); I24.8 Other forms of acute ischemic heart disease; I50.22 Chronic systolic (congestive) heart failure; E86.9 Volume depletion, unspecified; I48.91 Unspecified atrial fibrillation; I25.10 Atherosclerotic heart disease of native coronary artery without angina pectoris; E78.5 Hyperlipidemia, unspecified; Z95.810 Presence of automatic (implantable) cardiac defibrillator; Z79.82 Long term (current) use of aspirin; Z79.01 Long term (current) use of anticoagulants; Z79.4 Long term (current) use of insulin; Z79.84 Long term (current) use of oral hypoglycemic drugs; Z79.899 Other long term (current) drug therapy; Z88.8 Allergy status to other drugs, medicaments and biological substances; Z88.5 Allergy status to narcotic agent; Z20.822 Contact with and (suspected) exposure to COVID-19
CPT/HCPCS: 93005; 85025 ×2; 80048; 36415; 83735; 82550; 84100; 84300; 80061; 82947 ×3; 84443; 82570; 84484 ×4; 82553; 84439; 83690; 80053; 83880; 76377; 74176; 71045; 76770; 99285; U0003; J7040; G0378 ×3

== ENCOUNTER 2022-04-20 11:50 | Emergency (ER) | payer OTHER ==
--- OUTSIDE RECORDS SUMMARY | 2022-04-20 11:58 | XMS REPORT | Continuity of Care Document ---
:1950 Author Organization [facility] t Address [address] [place] [address] Care Team Providers Name Role Phone Kennedi Ford MD Primary Care Physician Paula Guzman Attending Clinician Unavailable SALVADOR MANJARREZ Attending Clinician Unavailable VETO UGARTE Attending Clinician Unavailable ALBA PADILLA Attending Clinician Unavailable ÁNGEL KANG Attending Clinician Unavailable LINDA DOMINGUEZ Attending Clinician Unavailable SERA BRADFORD Attending Clinician Unavailable ABBEY HICKS Attending Clinician Unavailable Brandt Corrales MD Attending Clinician MD KRYSTAL HERNANDEZ Attending Clinician Unavailable SALVADOR MANJARREZ M.D. Attending Clinician Unavailable WARREN MEEKS Attending Clinician Unavailable JW BOB Attending Clinician Unavailable SHEEBA GUILLAUME Attending Clinician Unavailable KEO AGUILAR Attending Clinician Unavailable MARY BOYLE Attending Clinician Unavailable WILY LINARES Attending Clinician Unavailable SAUL TARIQ Attending Clinician Unavailable KRYSTAL HERNANDEZ Admitting Clinician Unavailable Brandt Corrales MD Admitting Clinician MD KRYSTAL HERNANDEZ Admitting Clinician Unavailable JW BOB Admitting Clinician Unavailable LINDA DOMINGUEZ Admitting Clinician Unavailable VIRGINIA NEAL Admitting Clinician Unavailable Payers Payer Name Policy Type Policy Number Effective Date Expiration Date Delaney gutiérrez [employer] MEDICARE PPO [id number] 2016 00:00:00 Problems Condition Condition Condition Status Onset Resolution Last Treating Co mments Source Name Details Category Date Date Treatment Clinician Date Chronic Chronic Disease Active [facility] left left 6-18 [facility] shoulder shoulder 00:00: pain pain 00 Status Status Disease Active [facility] post post 6-18 Health subacromia subacromia 00:00: l l 00 [...] [facility] LISINOPR Allergy Active [...] Comments Source Exposure to SARS-CoV-2 Not sure [facility] (event) Sex Assigned At [birth year] [facility] 00:00:00 00:00:00 Smoking Status Start Date Stop Date Source Tobacco smoking consumption unknown [facility] Medications Ordered Filled Start Stop Current Ordering Indication Dosage Frequency Signature Comments Components Source Medication Medication Date Date Medication? Clinician (SIG) Name Name semaglutide 0 Yes Inject UT (Ozempic, 1 5-19 under the Hea lth MG/DOSE,) 2 17:39: skin. MG/1.5ML 40 solution pen-injecto r semaglutide 0 Yes Inject UT (Ozempic, 1 5-19 under [...] 5 tablet (five) minutes if needed. insulin 1-0 Yes Inject UT degludec 5-19 under the Health (Tresiba) 17:39: skin. 100 UNIT/ML 39 injection linaGLIPtin 1-0 Yes 1{tbl} QD Take 1 UT -metFORMIN 5-19 tablet by [facility] 17:39: mouth 1 2.5-1000 MG 39 (one) [...] 12:39: skin. MG/1.5ML 40 solution pen-injecto r semaglutide 2021-0 Yes Inject UT (Ozempic, 1 5-19 under the Hea lth MG/DOSE,) 2 12:39: skin. MG/1.5ML 40 solution pen-injecto r nitroglycer 2021-[address] 0.4 U T in 5-19 mg under Health (Nitrostat) 12:39: the tongue 0.4 MG SL 39 every 5 tablet (five) minutes if needed. insulin 2021-0 Yes Inject UT degludec 5-19 under the Health (Tresiba) 12:39: skin. 100 UNIT/ML 39 injection linaGLIPtin 0 Yes 1{tbl} QD Take 1 UT -metFORMIN 5-19 tablet by Heal th HCl 12:39: mouth 1 2.5-1000 MG 39 (one) time tablet each day. nitroglycer [address] 0.4 U T in 5-19 mg under Health (Nitrostat) 12:39: the tongue 0.4 MG SL 39 every 5 tablet (five) minutes if needed. insulin 0 Yes Inject UT degludec 5-19 under the Health (Tresiba) 12:39: skin. 100 UNIT/ML 39 injection linaGLIPtin 0 Yes 1{tbl} QD Take 1 UT -metFORMIN 5-19 tablet by Heal th HCl 12:39: mouth 1 2.5-1000 MG 39 (one) time tablet each day. glimepiride 0 Yes 2mg QD Take 2 mg U T (Amaryl) 2 5-19 by mouth 1 Hea lth MG tablet 12:39: (one) time 38 each day. glimepiride 0 Yes 2mg QD Take 2 mg U T (Amaryl) 2 5-19 by mouth 1 Hea lth MG tablet 12:39: (one) time 38 each day. Entresto 2020-0 Yes UT 97-103 MG 5-18 Health tablet 00:00: 00 Entresto 2020-0 Yes UT 97-103 MG 5-18 Health tablet 00:00: 00 Entresto 2020-0 Yes UT 97-103 MG 5-18 Health tablet 00:00: 00 Entresto 2020-0 Yes UT 97-103 MG 5-18 Health tablet 00:00: 00 Entresto 2020-0 Yes UT 97-103 MG 5-18 Health tablet 00:00: 00 Tresiba 0 Yes INJECT 70 UT FlexTouch 5-12 UNITS IN Health 200 UNIT/ML 00:00: MORNING injection 00 AND INCREASE BY 2 UNITS EVERY 3 DAYS UNTIL FASTING SUGAR LESS THAN 120 Tresiba 2020-0 Yes INJECT 70 UT FlexTouch 5-12 UNITS [...] UNTIL FASTING SUGAR LESS THAN 120 HYDROcodone 0 Yes 1-2 PO Q 6 UT -acetaminop 5-06 HRS PRN Healt h hen ([place]) 00:00: PAIN 5-325 MG 00 tablet HYDROcodone 0 Yes 1-2 PO Q 6 UT -acetaminop 5-06 HRS PRN Healt [facility] hen ([place]) 00:00: PAIN 5-325 MG 00 tablet HYDROcodone 2020-0 Yes 1-2 PO Q 6 UT -acetaminop 5-06 HRS PRN Healt h hen ([place]) 00:00: PAIN 5-325 MG 00 tablet HYDROcodone 2020-0 Yes 1-2 PO Q 6 UT -acetaminop 5-06 HRS PRN Healt h hen ([place]) 00:00: PAIN 5-325 MG 00 tablet HYDROcodone 2020-0 Yes 1-2 PO Q 6 UT -acetaminop 5-06 HRS PRN Healt h hen ([place]) 00:00: PAIN 5-325 MG 00 tablet HYDROcodone HYDROcodone 0 Yes SALVADOR 1-2 PO Q 6 UT -Acetaminop -Acetaminop 5-06 MANJARREZ M.D. HRS PRN Physici hen 5-325 hen 5-325 00:00: PAIN ans MG Oral MG Oral 00 Tablet Tablet Eliquis 5 Yes 5mg Q.5D Take 5 mg UT MG tablet 5-05 by mouth 2 00:00: (two) 00 times a day. Eliquis 5 Yes 5mg Q.5D Take 5 mg UT MG tablet 5-05 by mouth 2 00:00: (two) 00 times a day. Eliquis [...] th 00:00: (two) 00 times a day. Trulicity [...] pen-injecto (one) time r per week. tiZANidine 1-0 Yes 2mg QD Take 2 mg UT (Zanaflex) 4-28 by mouth Healt h 2 MG 00:00: at night capsule 00 if needed. tiZANidine 2021-0 Yes 2mg QD Take 2 mg UT (Zanaflex) 4-28 by mouth Healt h 2 MG 00:00: at night capsule 00 if needed. tiZANidine 2021-0 Yes 2mg QD Take 2 mg UT [...] 1 UT n (Crestor) 4-23 TABLET BY a lth 40 MG 00:00: MOUTH tablet 00 [...] h 4 MM misc 00:00: ONCE DAILY NovoFine Yes UT Plus 32G X 3-03 DIRECTED Healt h 4 MM misc 00:00: ONCE DAILY NovoFine Yes UT Plus 32G X 3-03 DIRECTED Healt h 4 MM misc 00:00: ONCE DAILY NovoFine Yes UT Plus 32G X 3-03 [...] tablet 00 (one) time each day. bumetanide 2019-09 Yes TAKE 1 UT (Bumex) 1 0-03 TABLET BY Healt h MG tablet 00:00: MOUTH 3 00 TIMES A WEEK ( SUN,SUN AND SUNDAY) bumetanide 2019-09 Yes TAKE 1 UT (Bumex) 1 0-03 TABLET BY Healt h MG tablet 00:00: MOUTH 3 00 TIMES A WEEK ( SUN,SUN AND SUNDAY) bumetanide 2019-09 Yes TAKE 1 UT (Bumex) 1 0-03 TABLET BY Healt h MG tablet 00:00: MOUTH 3 00 TIMES A WEEK ( SUN,SUN AND SUNDAY) bumetanide 2019-09 Yes TAKE 1 UT (Bumex) 1 0-03 TABLET BY Healt h MG tablet 00:00: MOUTH 3 00 TIMES A WEEK ( SUN,SUN AND SUNDAY) bumetanide 2019-09 Yes TAKE 1 UT (Bumex) 1 0-03 TABLET BY Healt h MG tablet 00:00: MOUTH 3 00 TIMES A WEEK ( SUN,SUN AND SUNDAY) metoclopram 2020-0 Yes TAKE 3 UT jassi 9-03 TABLETS BY Health (Reglan) 10 00:00: MOUTH MG tablet 00 DIRECTED USE DIRECTED PER YOUR COLONOSCOP Y PREP PACKET metoclopram 2020-0 Yes TAKE 3 UT jassi 9-03 TABLETS BY Health (Reglan) 10 00:00: MOUTH MG tablet 00 DIRECTED USE DIRECTED PER YOUR COLONOSCOP Y PREP PACKET metoclopram 2020-0 Yes TAKE 3 UT jassi 9-03 TABLETS BY Health (Reglan) 10 00:00: MOUTH MG tablet 00 DIRECTED USE DIRECTED PER YOUR COLONOSCOP Y PREP PACKET metoclopram 2020-0 Yes TAKE 3 UT jassi 9-03 TABLETS BY Health (Reglan) 10 00:00: MOUTH MG tablet 00 DIRECTED USE DIRECTED PER YOUR COLONOSCOP Y PREP PACKET metoclopram 2020-0 Yes TAKE 3 UT jassi 9-03 TABLETS BY Health (Reglan) 10 00:00: MOUTH MG tablet 00 DIRECTED USE DIRECTED PER YOUR COLONOSCOP Y PREP PACKET Ozempic Ozempic 2018-0 2020- No Elizabeth as Commo n -12 01-07 [place] directed [facility] 00:00[facility] Elizabeth 70 units C ommon FlexTouch FlexTouch -12 04-10 [place] in am and Spirit 00:00: 00:00 increase - CHI 00 :[address] every 3 [facility] days until [facility] glucose less 120 max 70 units [...] Yes Elizabeth 1 tablet Co mmon 2-20 [place] [facility] 00:00: - [facility] Amiodarone Amiodarone 2017-0 Yes Elizabeth 1 tablet Common HCl HCl 2-20 [place] [facility] 00:00: - [facility] Bumetanide Bumetanide 2017-0 Yes Elizabeth as Common 2-20 [place] directed Spirit 00:00: - [facility] aspirin 81 2016-09 Yes 81mg QD Take 81 mg U T MG EC 2-21 by mouth 1 Health tablet 00:00: (one) time 00 each day. sacubitril- 2016-09 Yes Comments: U T valsartan 2-21 | Filled Health (Entresto) 00:00: Date: Jan 08 MG 2017 tablet 12:00AM | Patient Notes: TAKE 1 TABLET BY MOUTH 2 (TWO) TIMES DAILY. Duration: 30 sacubitril2016-09 Yes Comments: U T valsartan 2-21 | [...] Carvedilol Carvedilol Yes Elizabeth as Co mmon [place] directed [facility] Crestor Crestor Yes Elizabeth 1 tablet Comm on [facility] Nitroglycer Nitroglycer Yes Elizabeth not Common in in [place] defined [facility] Tricor Tricor Yes Elizabeth 1 tablet Common [place] with food [facility] Albuterol Albuterol Yes Elizabeth 3 ml as C ommon Sulfate Sulfate [place] needed [facility] Eliquis Eliquis Yes Elizabeth 1 Common [place] [facility] Entresto Entresto Yes Elizabeth one Common 97/103mg 97/103mg [facility] Glimepiride Glimepiride Yes Elizabeth TAKE 1 Common [place] TABLET AT [facility] BEDTIME [facility] Lancets Lancets Yes Elizabeth one Common Super Thin Super Thin [facility] Glucometer Glucometer Yes Elizabeth one Co mmon [facility] Aspir-81 Aspir-81 Yes Elizabeth 1 tablet Co mmon [facility] NovoFine NovoFine Yes Elizabeth as Common Plus Plus [place] directed [facility] Immunizations Ordered Immunization Filled Immunization Date Status Commen ts Source Name Name Covid-19 Moderna 2020-12-04 Completed UT [...] FluAD FluAD 2019-06-12 Completed [facility] 00:00:00 [facility] Influenza, 2018-05-24 [facility] injectable, MDCK, [...] Systolic blood pressure 2020-10-07 10:03:00 119 mm[Hg] [facility] Diastolic blood pressure 2020-10-07 10:03:00 63 mm[Hg] [facility] Heart Rate 2020-10-07 10:03:00 95 /min [facility] Procedures Procedure Date / Time Performed Performing Clinician Sourc e [UTP] Ortho - Surgery 2020-12-30 00:00:00 [facility] Scheduling [MMD] XRAY Chest 2 Views 2020-11-17 00:00:00 [facility] XRAY Chest 2 views [id number] 2020-11-17 00:00:00 [facility] MR Shoulder wo contrast 2020-10-07 00:00:00 [facility] [id number] Plan of Care Planned Activity Planned Date Details Comments Source Diagnostic Test 2020-12-30 00:00:00 [UTP] Ortho - Surgery [facility] Pending Scheduling [code = [UTP] Ortho - Surgery Scheduling] Diagnostic Test 2020-10-07 00:00:00 MR Shoulder wo [facility] Pending contrast 36513 [code = 03444] Diagnostic Test 2020-10-07 00:00:00 MR Shoulder wo [facility] Pending contrast 22098 [code = 40885] Encounters Start End Encounter Admission Attending Care Care Encounter Source Date/Time Date/Time Type Type Clinicians Facility Department ID 2022-02-24 Outpatient Paula Guzman [facility] [id number] 2 Common 10:00:00 [id number] [facility] 2021-10-12 Outpatient Guzman, Na STLMLC STLMLC [id number] 2 Common 14:23:13 [id number] [facility] 2021-10-12 Outpatient Guzman, Na STLMLC STLMLC [id number] 2 Common 13:26:20 [id number] [facility] 2021-10-12 Outpatient Guzman, Na STLMLC STLMLC [id number] 2 Common 13:26:05 [id number] [facility] 2021-10-12 Outpatient Guzman, Na STLMLC STLMLC [id number] 2 Common 12:49:48 [id number] [facility] 2021-10-12 Outpatient Guzman, Na STLMLC STLMLC [id number] 2 Common 12:43:40 [id number] [facility] 2021-10-12 Outpatient Guzman, Na STLMLC STLMLC [id number] 2 Common 12:18:20 [id number] [facility] 2021-10-12 Outpatient Guzman, Na STLMLC STLMLC [id number] 2 Common 11:46:50 [id number] [facility] 2021-10-12 Outpatient Guzman, Na STLMLC STLMLC [id number] 2 Common 11:29:53 [id number] [facility] 2021-10-12 Outpatient Guzman, Na STLMLC STLMLC [id number] 2 Common 11:29:29 [id number] [facility] 2021-10-12 Outpatient Guzman, Na STLMLC STLMLC [id number] 2 Common 11:27:56 [id number] [facility] 2021-03-04 Outpatient MANJARREZ, [facility] [id number] [place] 09:15:15 [facility] 2021-02-20 Outpatient MANJARREZ, [facility] [id number] [place] 01:03:31 [facility] 2021-02-02 Outpatient TY, [facility] [id number] [place] 13:56:34 NICHOLETTE [facility] 2021-02-02 Outpatient [facility] [id number] [place] 13:55:48 Health 2021-01-26 Outpatient [facility] [id number] [place] 10:48:01 Health 2021-01-22 Outpatient MANJARREZ, [facility] [id number] [place] 04:11:18 [facility] 2022-03-28 2022-03-28 Outpatient BAVARE, [facility] [id number] [place] 00:00:00 00:00:00 [facility]UDATTA [facility] 2022-03-28 2022-03-28 Outpatient EL-TALLAWI, [facility] [id number] [place] 00:00:00 00:00:00 KINAN [address] 2022-03-28 2022-03-28 Outpatient EL-TALLAWI, [facility] [id number] [place] 00:00:00 00:00:00 KINAN [address] 2022-03-15 2022-03-15 Outpatient BAVARE, [facility] [id number] [place] 00:00:00 00:00:00 CHARUDATTA 676 Met [facility] 2022-03-15 2022-03-15 Outpatient BAVARE, [facility] [id number] [place] 00:00:00 00:00:00 CHARUDATTA 9[facility] 2022-03-09 2022-03-09 ambulatory STLMLC STLMLC [id number] Common 00:00:00 00:00:00 [facility] 2022-03-08 2022-03-08 Outpatient ANGEILCA, [facility] [id number] [place] 00:00:00 00:00:00 IMAD [address] 2022-03-03 2022-03-03 ambulatory STLMLC STLMLC [id number] Common 00:00:00 00:00:00 [facility] 2022-02-28 2022-02-28 ambulatory STLMLC STLMLC [id number] Common 00:00:00 00:00:00 [facility] 2022-02-28 2022-02-28 ambulatory STLMLC STLMLC [id number] Common 00:00:00 00:00:00 [facility] 2022-02-03 2022-02-03 Outpatient SUZETTE, [facility] [id number] [place] 00:00:00 00:00:00 SERA 144 Method i 2021-10-27 2021-10-27 ambulatory STLMLC STLMLC [id number] Common 00:00:00 00:00:00 [facility] 2021-10-13 2021-10-13 Outpatient ANGELICA, [facility] [id number] [place] 00:00:00 00:00:00 IMAD 935 Method i 2021-10-13 2021-10-13 Outpatient ANGELICA, [facility] [id number] [place] 00:00:00 00:00:00 IMAD 933 Method i 2021-10-13 2021-10-13 Outpatient ANGELICA, [facility] [id number] [place] 00:00:00 00:00:00 IMAD 936 Method i 2021-09-21 2021-09-21 Outpatient ANGELICA, [facility] [id number] [place] 00:00:00 00:00:00 IMAD 628 Method i 2021-08-30 2021-08-30 ambulatory STLMLC STLMLC [id number] Common 00:00:00 00:00:00 [facility] 2021-08-30 2021-08-30 ambulatory STLMLC STLMLC [id number] Common 00:00:00 00:00:00 [facility] 2021-06-06 2021-06-06 Outpatient STLMLC STLMLC [id number] Common 00:00:00 00:00:00 [facility] 2021-05-11 2021-05-11 Outpatient ANGELICA, [facility] [id number] [place] 00:00:00 00:00:00 IMAD 274 Method i 2021-05-03 2021-05-03 Outpatient STLMLC STLMLC [id number] Common 00:00:00 00:00:00 [facility] 2021-04-13 2021-04-13 Outpatient ANGELICA, [facility] [id number] [place] 00:00:00 00:00:00 IMAD 001 Method i 2021-04-132021-04-13 Outpatient ANGELICA, [facility] [id number] [place] 00:00:00 00:00:00 IMAD [address] 2021-04-02 2021-04-02 Outpatient STLMLC STLMLC [id number] Common 00:00:00 00:00:00 [facility] 2021-03-29 2021-03-29 Outpatient STLMLC STLMLC [id number] Common 00:00:00 00:00:00 [facility] 2021-03-24 2021-03-24 Outpatient STLMLC STLMLC [id number] Common 00:00:00 00:00:00 [facility] 2021-03-24 2021-03-24 Outpatient STLMLC STLMLC [id number] Common 00:00:00 00:00:00 [facility] 2021-03-24 2021-03-24 Outpatient [facility] [id number] [place] 00:00:00 00:00:[address] 2021-03-16 2021-03-21 Inpatient LAKHVA, [facility] [id number] [place] 00:00:00 00:00:00 ASMA [address] 2021-03-17 2021-03-17 EXT [facility] OP Antoni, EXT MSRDP [id number] [place] 00:00:00 00:00:00 Brandt Gao LOCATION [id number] Health [id number] 2021-03-17 2021-03-17 EXT F F [facility] OP Antoni, EXT MSRDP [id number] [place] 00:00:00 00:00:00 Brandt Fieldsan LOCATION [id number] Health [id number] 2021-03-04 2021-03-04 Office Ty, [facility] [id number] [place] 13:35:44 14:05:44 Visit Nicholette SUGAR [id number] Health LAND [id number] 2021-03-04 2021-03-04 Office Ty, [facility] ORTH[facility] [id number] 13:35:44 14:05:44 Visit Veto SUGAR [id number] LAND [id number] [id number] 2021-03-02 2021-03-02 Outpatient ANGELICA, [facility] [id number] [place] 00:00:00 00:00:00 IMAD [address] 2021-02-02 2021-02-02 Office Josseline [facility]TH[facility] [id number] [place] 13:52:06 14:20:28 Visit Salvador SUGAR [id number] He alth LAND [id number] 2021-02-02 2021-02-02 Office JosselineBILLY ORTHO [id number] 13:52:06 14:20:28 Visit Salvador SUGAR [id number] LAND [id number] 2021-01-31 2021-01-31 Outpatient SUZETTE, [facility] [id number] [place] 00:00:00 00:00:00 SERA [address] 2021-01-20 2021-01-20 [facility] [id number] [place] 13:00:00 13:00:00 t; SALVADOR MANJARREZ, - [facility] Phys Paige Weber 1 zaira Gibson 2021-01-14 2021-01-14 Outpatient STLMLC STLMLC [id number] Common 00:00:00 00:00:00 [facility] 2021-01-13 2021-01-13 Outpatient STLMLC STLMLC [id number] Common 00:00:00 00:00:00 [facility] 2021-01-03 2021-01-03 Outpatient STLMLC STLMLC [id number] Common 00:00:00 00:00:00 [facility] 2020-12-30 2020-12-30 [facility] [id number] [place] 09:30:00 09:30:00 t; SALVADOR MANJARREZ, - [facility] Paige Weber 1 ans M.D. 2020-12-21 2020-12-21 [facility] [id number] Common 00:00:00 00:00:00 [facility] 2020-12-21 2020-12-21 Outpatient MANJARREZ, [facility] [id number] [place] 00:00:00 00:00:00 SALVADOR 975 Method i 2020-12-21 2020-12-21 Outpatient CONSTANTINO, [facility] [id number] [place] 00:00:00 00:00:00 NADIM 340 Method i 2020-12-21 2020-12-21 Outpatient MANJARREZ, [facility] [id number] [place] 00:00:00 00:00:00 SALVADOR 274 Method i 2020-12-21 2020-12-21 Outpatient CONSTANTINO, [facility] [id number] [place] 00:00:00 00:00:00 NADIM 845 Method i 2020-10-07 2020-10-07 Appointmen JOSSELINE [facility] Orthopedics [id number] [place] 09:30:00 09:30:00 t; SALVADOR MANJARREZ, Arabella [facility] Paige Weber 1 ans M.Anisha 2020-09-23 2020-09-23 Outpatient [facility] [id number] Common 00:00:00 00:00:00 [facility] 2020-08-04 2020-08-04 [facility] [id number] [place] 00:00:00 00:00:00 IMAD 667 Method i 2020-06-03 2020-06-03 Outpatient [facility] [id number] Common 09:00:00 09:00:00 t Specialty/U Sp mari Specialty rology [facility] 2020-05-06 2020-05-06 [facility] [id number] [place] 00:00:00 00:00:00 JW 039 Method i 2020-04-28 2020-04-28 Outpatient ANGELICAON LICENSE [facility] [id number] [place] 00:00:00 00:00:00 IMAD 297 Method i 2020-03-31 2020-03-31 Outpatient ANGELICA, [facility] [id number] [place] 00:00:00 00:00:00 IMAD 115 Method i 2020-03-31 2020-03-31 Outpatient ANGELICA, [facility] [id number] [place] 00:00:00 00:00:00 IMAD 016 Method i 2020-03-23 2020-03-23 Outpatient [facility] [id number] Common 08:20:00 08:20:00 t [employer] Sp[address] [facility] 2020-03-17 2020-03-17 Outpatient ANGELICA, [facility] [id number] [place] 00:00:00 00:00:00 IMAD 613 Method i 2020-03-17 2020-03-17 Outpatient ANGELICA, [facility] [id number] [place] 00:00:00 00:00:00 IMAD 586 Method i 2020-03-08 2020-03-08 Outpatient [facility] [id number] Common 10:55:00 10:55:00 t [employer] Sp[address] [facility] 2020-02-20 2020-02-20 Outpatient ANGELICA, [facility] [id number] [place] 00:00:00 00:00:00 IMAD 705 Method i 2020-02-19 2020-02-19 Outpatient ANGELICA, [facility] [id number] [place] 00:00:00 00:00:00 IMAD 578 Method i 2020-01-30 2020-01-30 Outpatient SUZETTE, [facility] [id number] [place] 00:00:00 00:00:00 SERA 769 Method i 2020-01-28 2020-01-29 Outpatient ANGELICA, [facility] [id number] [place] 00:00:00 00:00:00 IMAD 937 Method i 2019-12-03 2019-12-03 Outpatient [facility] [id number] Common 11:15:00 11:15:00 [employer] Spir it [address] [facility] 2019-06-12 2019-06-12 Outpatient [facility] [id number] Common 15:20:00 15:20:[address] [facility] 2018-12-27 2018-12-27 Outpatient [facility] [id number] Common 13:00:00 13:00:[address] [facility] 2018-12-17 2018-12-17 Outpatient [facility] [id number] Common 11:09:00 11:09:[address] [facility] 2018-12-01 2018-12-01 Outpatient [facility] [id number] Common 21:22:00 21:22:[address] [facility] 2018-10-28 2018-10-28 Outpatient [facility] [id number] Common 15:53:00 15:53:[address] [facility] 2018-09-26 2018-09-26 Outpatient [facility] [id number] Common 10:45:00 10:45:[address] [facility] 2018-08-05 2018-08-05 Outpatient [facility] [id number] Common 08:30:00 08:30:[address] [facility] 2018-05-06 2018-05-06 Outpatient [facility] [id number] Common 09:15:00 09:15:[address] [facility] Results Test Description Test Time Test Comments Results Result Comments Source SARS-CoV-2 (COVID-19) RNA [Presence] in Respiratory sp ecimen by 2021-03-17 02:14:28 SUMANTH with probe detection Test Item Value Reference Range Interpretation Comme nts SARS-CoV-2 (COVID-19) RNA [Presence] in Respiratory Not detected No t-Detected specimen by SUMANTH with probe detection (test code = 19915-7) Whether patient is employed in a healthcare setting (test code = 45463-9) Whether the patient has symptoms related to condition of interest (test code = 01017-6) Patient was hospitalized because of this condition (test code = 16680-1) Whether the patient was admitted to intensive care unit (ICU) for condition of interest (test code = 43421-1) Whether patient resides in a congregate care setting (test code = 27943-0) IMMUNOFIXATION ELECTROPHORESIS (ANAND)2018-03-22 09:59:00 Test Item Value Reference Range Interpretation Comments IMMUNOGLOBULIN G (IGG) 944 mg/dL 540-1822 (BEAKER) (test code = 427) IMMUNOGLOBULIN A (IGA) 137 mg/dL 63-484 (BEAKER) (test code = 639) IMMUNOGLOBULIN M (IGM) 41 mg/dL 22-293 (BEAKER) (test code = 638) SERUM ANAND ID (BEAKER) No monoclonal (test code = 1814) proteins detected. Polyclonal distribution of immunoglobulins. [id number] Angely Santos ([place] [facility] (test code = (electronic 7064) signature) PROTEIN ELECTROPHORESIS, [id number] 16:21:00 Test Item Value Reference Range Interpretation [...] significant change from previous study performed 12-13-17. [id number] Angely Santos MD ([facility]) (test code = (electronic signature) 9767) PROTEIN TOTAL SERUM, 6.4 gm/dL 6.0-8.3 SPEP (BEAKER) (test code = 6361) TSH/FREE T4 IF [id number] 09:28:00 Test Item Value Reference Range Interpretation Comments THYROID STIMULATING HORMONE 3.29 uIU/mL 0.35-4.94 (BEAKER) (test code = 772) B-TYPE NATRIURETIC FACTOR (BNP)2018-03-15 09:11:00 Test Item Value Reference Range Interpretation Comments B-TYPE NATRIURETIC PEPTIDE (BEAKER) 641 pg/mL 0-100 H (test code = 700) LIPID [id number] 09:05:00 Test Item Value Reference Range Interpretation Comments TRIGLYCERIDES (BEAKER) (test code = 117 mg/dL 540) CHOLESTEROL (BEAKER) (test code = 136 mg/dL 631) HDL CHOLESTEROL (BEAKER) (test code 41 mg/dL = 976) LDL CHOLESTEROL CALCULATED (BEAKER) 72 mg/dL (test code = 633) Triglyceride Reference Range: Low Risk <150 Borderline 150-199 High Risk 200- 499 Very High Risk >=500Cholesterol Reference Range: Low Risk <200 Borderline 200-239 High Risk >240HDL Cholesterol Reference Range: Low Risk >=60 High Risk <40LDL Cholesterol Reference Range: Optimal <100 Near Optimal 100-129 Borderline 130-159 High 160-189 Very High >=190BASIC METABOLIC [id number] 09:05:00 Test Item Value Reference Range Interpretation [...] APPLICABLE FOR DIALYSIS PATIEN TS. HEPATIC FUNCTION [id number] 09:05:00 Test Item Value Reference Range Interpretation [...] 6-55 347) CBC W/PLT COUNT & AUTO [id number] 09:02:00 Test Item Value Reference Range Interpretation [...] PERCENT (BEAKER) (test code = 2801) HEMOGLOBIN [id number] 12:30:00 Test Item Value Reference Range Interpretation Comments HEMOGLOBIN A1C (BEAKER) (test code = 6.3 % 4.3-6.1 H 368) ALKALINE [id number] 10:37:00 Test Item Value Reference Range Interpretation Comments ALKALINE PHOSPHATASE (BEAKER) (test 43 U/L 40-150 code = 346) [id number] 10:37:00 Test Item Value Reference Range Interpretation Comments POTASSIUM (BEAKER) (test code = 5.6 meq/L 3.5-5.1 H 379) [id number] 10:37:00 Test Item Value Reference Range Interpretation Comments MAGNESIUM (BEAKER) (test code = 1.9 mg/dL 1.6-2.6 627) [id number] 10:37:00 Test Item Value Reference Range Interpretation Comments SODIUM (BEAKER) (test code = 381) 137 meq/L 136-145 AST (SGOT)2017-12-21 10:37:00 Test Item Value Reference Range Interpretation Comments AST (SGOT) (BEAKER) (test code = 353) 24 U/L 5-34 ALT (SGPT)2017-12-21 10:37:00 Test Item Value Reference Range Interpretation Comments ALT (SGPT) (BEAKER) (test code = 347) 23 U/L 6-55 BILIRUBIN, ADULT [id number] 10:37:00 Test Item Value Reference Range Interpretation Comments BILIRUBIN TOTAL (BEAKER) (test code 0.3 mg/dL 0.2-1.2 = 377) BILIRUBIN, [id number] 10:37:00 Test Item Value Reference Range Interpretation Comments BILIRUBIN DIRECT (BEAKER) (test 0.2 mg/dL 0.1-0.5 code = 706) [id number] 10:37:00 Test Item Value Reference Range Interpretation Comments CHLORIDE (BEAKER) (test code = 382) 102 meq/L 98-107 CREATINE KINASE (CK)2017-12-21 10:37:00 Test Item Value Reference Range Interpretation Comments CREATINE KINASE TOTAL (BEAKER) (test 166 U/L 29-200 code = 380) LACTATE DEHYDROGENASE (LDH)2017-12-21 10:37:00 Test Item Value Reference Range Interpretation Comments LACTATE DEHYDROGENASE (BEAKER) (test 223 U/L 125-220 H code = 635) BUN AND [id number] 10:37:00 Test Item Value Reference Range Interpretation [...] 1814) proteins detected. Polyclonal distribution of immunoglobulins. [id number] Angely Santos ([facility]) (test code = (electronic 2733) signature) PROTEIN ELECTROPHORESIS, [id number] 15:31:00 Test Item Value Reference Range Interpretation [...] present (BEAKER) (test code = in expected 9961) distribution. No monoclonal bands detected. [id number] Angely Santos MD ([facility]) (test code = (electronic signature) 1852) PROTEIN TOTAL SERUM, 6.4 gm/dL 6.0-8.3 SPEP (BEAKER) (test code = 0880) [id number] 15:30:00 Test Item Value Reference Range Interpretation Comments POTASSIUM (BEAKER) (test code = 5.4 meq/L 3.5-5.1 H 379) TSH/FREE T4 IF [id number] 12:17:00 Test Item Value Reference Range Interpretation Comments THYROID STIMULATING HORMONE 3.18 uIU/mL 0.35-4.94 (BEAKER) (test code = 772) BASIC METABOLIC [id number] 12:02:00 Test Item Value Reference Range Interpretation [...] = 700) CBC W/PLT COUNT & AUTO [id number] 11:36:00 Test Item Value Reference Range Interpretation [...] PERCENT (BEAKER) (test code = 2801) HEMOGLOBIN [id number] 12:52:00 Test Item Value Reference Range Interpretation Comments HEMOGLOBIN A1C (BEAKER) (test code = 7.9 % 4.3-6.1 H 368) TSH/FREE T4 IF [id number] 12:22:00 Test Item Value Reference Range Interpretation Comments THYROID STIMULATING HORMONE 2.15 uIU/mL 0.35-4.94 (BEAKER) (test code = 772) B-TYPE NATRIURETIC FACTOR (BNP)2017-09-06 11:57:00 Test Item Value Reference Range Interpretation Comments B-TYPE NATRIURETIC PEPTIDE (BEAKER) 364 pg/mL 0-100 H (test code = 700) URIC [id number] 11:55:00 Test Item Value Reference Range Interpretation Comments URIC ACID (BEAKER) (test code = 6.6 mg/dL 2.6-7.2 773) [id number] 11:55:00 Test Item Value Reference Range Interpretation Comments MAGNESIUM (BEAKER) (test code = 1.6 mg/dL 1.6-2.6 627) BASIC METABOLIC [id number] 11:55:00 Test Item Value Reference Range Interpretation [...] NOT APPLICABLE FOR DIALYSIS PATIEN TS. LIPID [id number] 11:55:00 Test Item Value Reference Range Interpretation [...] 130-159 High 160-189 Very High >=190HEPATIC FUNCTION [id number] 11:55:00 Test Item Value Reference Range Interpretation [...] (test code = 13 U/L 6-55 347) [id number] 11:51:00 Test Item Value Reference Range Interpretation Comments PREALBUMIN (BEAKER) (test code = 29 mg/dL 14-45 586) PROTHROMBIN [id number] 11:41:00 Test Item Value Reference Range Interpretation Comments PROTIME (BEAKER) (test code = 15.4 seconds 11.7-14.7 H 759) INR (BEAKER) (test code = 370) 1.2 <=5.9 RECOMMENDED COUMADIN/WARFARIN INR THERAPY RANGESSTANDARD DOSE: 2.0 - 3.0 Includes: PROPHYLAXIS for venous thrombosis, systemic embolization; TREATMENT for venous thrombosis and/or pulmonary embolus.HIGH RISK: Target INR is 2.5-3.5 for patients with mechanical heart valves.CBC W/PLT COUNT & AUTO [id number] 11:33:00 Test Item Value Reference Range Interpretation [...] (test code = 2801) RAD, BONE DENSITY [id number] 09:58:00Reason for exam:->heart transplant evaluation. screening for osteoporosisShould this be performedat the bedside?->NoFINAL REPORT Technique: Bone mineral density of the lumbar spine and both femoral necks performed on 08/16/2017 Clinical History: Osteopenia screening. Comparison: None Bone mineral density measurementLumbar spine1.382 gm/qi1Ivwa Femoral neck1.157 gm/ac0Anhnp Femoral neck1.120 gm/cm2 Standard deviation from young adult population (T-score)Lumbar spine 1.3Left Femoral neck 0.7Right Femoral neck 0.4 Standard deviation for age adjusted population (Z-score)Lumbar spine1.9Left Femoral neck1.9 Right Femoral neck1.6 IMPRESSION: WHO classification of normal for the lumbar spine and both femoral necks. Diagnostic criteria for osteoporosisBMD: Bone mineral density Normal: BMD measurement less than one standard deviation from young adult populationOsteopenia: BMD measurement between 1 and 2.5 standard deviationsOsteoporosis: BMD measurement greater than 2.5 standard deviations Signed: Phyllis Langeeport Verified Date/Time: 08/16/2017 09:58:30 Reading Location: [facility] Radiology Reading Room [id number] 12:15:00 Test Item Value Reference Range Interpretation Comments MAGNESIUM (BEAKER) (test code = 1.2 mg/dL 1.6-2.6 L 627) BASIC METABOLIC [id number] 12:15:00 Test Item Value Reference Range Interpretation [...] = 700) FLOW PRA CLASS I AND [id number] 11:17:00 Test Item Value Reference Range Interpretation Comments DATE OF SERUM (BEAKER) 462481 (test code = 2289) SERUM # (BEAKER) (test 913533 code = 2299) FLOW PRA CLASS I AND II See Scanned Report (test code = 2421) HLA [id number] 07:15:00 Test Item Value Reference Range Interpretation [...] (test code = 2583) HERPES VIRUS ANTIBODY, [id number] 14:18:00 Test Item Value Reference Range Interpretation Comments HERPES VIRUS IGM Negative HSV 1 IGM = NEGHSV 2 (BEAKER) (test code = IGM = NEG 1808) TOXOPLASMA GONDII ANTIBODY, [id number] 14:18:00 Test Item Value Reference Range Interpretation Comments TOXOPLASMA IGM ANTIBODY (BEAKER) Negative (test code = 742) PROTEIN ELECTROPHORESIS, [id number] 09:23:00 Test Item Value Reference Range Interpretation [...] of all clinical and laboratory data available. [facility] Test perform ed T-119 (BEAKER) and interpret ed (test code = by [employer] Diaz Ilsa corea 6006) [place] Labs. PROTEIN TOTAL 6.7 gm/dL 6.0-8.5 RR: 6.1-8.1 g/ dL SERUM, SPEP (BEAKER) (test code = 2660) URINE PROTEIN ELECTROPHORESIS, [id number] 08:49:00 Test Item Value Reference Range Interpretation Comments PROTEIN, URINE 12 mg/dL 0-14 (BEAKER) (test code = 1569) ALBUMIN URINE ELP 33.0 % (BEAKER) (test code = 1018) GAMMA GLOBULIN 67.0 % URINE (BEAKER) (test code = 1015) UPEP, ID-438 Pattern consistent (BEAKER) (test with mixed code = 4794) glomerular and tubular proteinuria. [facility]- Test perfo rmed and 438 ([facility]) interpreted by (test code = [employer] Joe Walsh 8264) [place] L abs. POCT-GLUCOSE [id number] 17:07:00 Test Item Value Reference Range Interpretation Comments POC-GLUCOSE METER 283 mg/dL 70-110 H TESTED AT [facility] 6720 (BEAKER) (test code = [place] 1538) [address] POCT-GLUCOSE [id number] 12:48:00 Test Item Value Reference Range Interpretation Comments POC-GLUCOSE METER 148 mg/dL 70-110 H TESTED AT [facility] 6720 (BEAKER) (test code = DOUGLAS Peña [facility] 1538) [address] POCT-GLUCOSE [id number] 07:37:00 Test Item Value Reference Range Interpretation Comments POC-GLUCOSE METER 154 mg/dL 70-110 H TESTED AT [facility] 6720 (BEAKER) (test code = DOUGLAS Peña [facility] 1538) [address] [id number] 07:11:00 Test Item Value Reference Range Interpretation Comments MAGNESIUM (BEAKER) (test code = 1.5 mg/dL 1.6-2.6 L 627) BASIC METABOLIC [id number] 07:11:00 Test Item Value Reference Range Interpretation [...] 0-0 (BEAKER) (test code = 413) POCT-GLUCOSE [id number] 21:29:00 Test Item Value Reference Range Interpretation Comments POC-GLUCOSE METER 142 mg/dL 70-110 H TESTED AT [place] [address] ([facility]) (test code = DOUGLAS Peña [facility] 1538) [address] POCT-GLUCOSE [id number] 17:29:00 Test Item Value Reference Range Interpretation Comments POC-GLUCOSE METER 258 mg/dL 70-110 H TESTED AT [place] [address] ([facility]) (test code = IBETHNM Casey [facility] 1538) [address] TOXOPLASMA GONDII ANTIBODY, [id number] 15:37:00 Test Item Value Reference Range Interpretation Comments TOXOPLASMA GONDII IGG ([facility]) (test Negative code = 419) POCT-GLUCOSE [id number] 11:56:00 Test Item Value Reference Range Interpretation Comments POC-GLUCOSE METER 190 mg/dL 70-110 H TESTED AT [place] [address] ([facility]) (test code = [facility] Casey [facility] 1538) [address] CREATININE [id number] 09:09:00 Test Item Value Reference Range Interpretation Comments CREATININE CLEARANCE 56.5 mL/min 70.0-140.0 L ([facility]) (test code = 357) VOLUME, TOTAL ([facility]) 2500 ml (test code = 1457) CREATININE URINE 46.2 mg/dL ([facility]) (test code = 375) [id number] Angely Santos MD ([facility]) (test code = (electronic signature) 9505) POCT-GLUCOSE [id number] 07:57:00 Test Item Value Reference Range Interpretation Comments POC-GLUCOSE METER 165 mg/dL 70-110 H TESTED AT [place] [address] ([facility]) (test code = [facility] Casey [facility] 1538) [address] CBC (HEMOGRAM ONLY)2017-07-19 07:06:00 Test Item Value [...] WBC 0-0 (BEAKER) (test code = 413) [id number] 04:55:00 Test Item Value Reference Range Interpretation Comments MAGNESIUM (BEAKER) (test code = 1.6 mg/dL 1.6-2.6 627) BASIC METABOLIC [id number] 04:55:00 Test Item Value Reference Range Interpretation [...] NOT APPLICABLE FOR DIALYSIS PATIEN TS. POCT-GLUCOSE [id number] 21:35:00 Test Item Value Reference Range Interpretation Comments POC-GLUCOSE METER 138 mg/dL 70-110 H TESTED AT [place] [address] ([facility]) (test code = [facility] 1538) [address] POCT-GLUCOSE [id number] 17:20:00 Test Item Value Reference Range Interpretation Comments POC-GLUCOSE METER 108 mg/dL 70-110 TESTED AT [place] [address] ([facility]) (test code = [facility] 1538) [address] VARICELLA ZOSTER ANTIBODY, [id number] 15:46:00 Test Item Value Reference Range Interpretation Comments VARICELLA ZOSTER IGG (AL) ([facility]) > Al (test code = 3197) VARICELLA ZOSTER RESULT INTERPRETATIONS: <=0.8 Al Nonreactive: Presumed non- immune to VZV 0.9-1.0Al Equivocal >=1.1 Al Reactive: Presumed immune to VZV HERPES VIRUS ANTIBODY, [id number] 15:45:00 Test Item Value Reference Range Interpretation Comments HERPES VIRUS IGG Negative HSV 1 IGG = NEGHSV 2 ([facility]) (test code = IGG = NEG 1807) CYTOMEGALOVIRUS ANTIBODY, [id number] 15:45:00 Test Item Value Reference Range Interpretation Comments CYTOMEGALOVIRUS IGG ANTIBODY Positive ([facility]) (test code = 790) CYTOMEGALOVIRUS ANTIBODY, [id number] 15:45:00 Test Item Value Reference Range Interpretation Comments CYTOMEGALOVIRUS IGM ANTIBODY Negative ([facility]) (test code = 816) EBV-VCA ANTIBODY, [id number] 15:45:00 Test Item Value Reference Range Interpretation Comments SARY-NGUYEN VCA IGG (AKER) (test Positive code = 983) EBV-VCA ANTIBODY, [id number] 15:45:00 Test Item Value Reference Range Interpretation Comments SARY-NGUYEN VCA IGM (BEAKER) (test Negative code = 984) ANTI-NUCLEAR ANTIBODY (JOCELYNN)2017-07-18 11:50:00 Test Item Value Reference Range Interpretation Comments ANTI-NUCLEAR ANTIBODY (JOCELYNN) (BEAKER) Negative Negative (test code = 418) POCT-GLUCOSE [id number] 11:47:00 Test Item Value Reference Range Interpretation Comments POC-GLUCOSE METER 179 mg/dL 70-110 H TESTED AT [facility] 67 ([facility]) (test code = [place] 1538) [address] [id number] 10:39:00 Test Item Value Reference Range Interpretation Comments RPR SCREEN (BEAKER) (test code = Nonreactive Nonreactive 420) POCT-GLUCOSE [id number] 07:35:00 Test Item Value Reference Range Interpretation Comments POC-GLUCOSE METER 167 mg/dL 70-110 H TESTED AT [facility] 6720 (BEAKER) (test code = DOUGLAS Peña [facility] 1538) [address] [id number] 07:35:00 Test Item Value Reference Range Interpretation Comments PHOSPHORUS (BEAKER) (test code = 2.9 mg/dL 2.3-4.7 604) [id number] 07:35:00 Test Item Value Reference Range Interpretation Comments MAGNESIUM (BEAKER) (test code = 1.8 mg/dL 1.6-2.6 627) BASIC METABOLIC [id number] 07:35:00 Test Item Value Reference Range Interpretation [...] NOT APPLICABLE FOR DIALYSIS PATIEN TS. PTH, [id number] 07:24:00 Test Item Value Reference Range Interpretation [...] code = 413) HEPATITIS B CORE ANTIBODY, [id number] 22:00:00 Test Item Value Reference Range Interpretation Comments HEPATITIS B CORE TOTAL ANTIBODY Nonreactive Nonreactive (BEAKER) (test code = 497) HEPATITIS PANEL, [id number] 22:00:00 Test Item Value Reference Range Interpretation Comments HEPATITIS A IGM ANTIBODY (BEAKER) Nonreactive Nonreactive (test code = 498) HEPATITIS B CORE IGM ANTIBODY Nonreactive Nonreactive (BEAKER) (test code = 645) HEPATITIS C ANTIBODY (BEAKER) Nonreactive Nonreactive (test code = 367) HEPATITIS B SURFACE ANTIGEN (2) Nonreactive Nonreactive (BEAKER) (test code = 2585) HIV-1 ANTIGEN WITH HIV-1/2 [id number] 22:00:00 Test Item Value Reference Range Interpretation Comments HIV-1 ANTIGEN WITH HIV 1\\T\\2 Nonreactive Nonreactive ANTIBODY (2) (JOLEEN) (test code = 2586) HEPATITIS A ANTIBODY, [id number] 22:00:00 Test Item Value Reference Range Interpretation Comments HEPATITIS A IGG ANTIBODY (JOLEEN) Nonreactive Nonreactive (test code = 2797) CREATININE, RANDOM [id number] 21:37:00 Test Item Value Reference Range Interpretation Comments CREATININE URINE (JOLEEN) (test 150.2 mg/dL code = 375) Reference Range: No NormalsPROTEIN, RANDOM [id number] 21:37:00 Test Item Value Reference Range Interpretation Comments PROTEIN, URINE (JOLEEN) (test code = 12 mg/dL 0-14 1569) [id number] 21:15:00 Test Item Value Reference Range Interpretation Comments PROSTATE SPECIFIC ANTIGEN (LAURAAKER) 1.0 ng/mL 0.0-4.0 (test code = 844) POCT-GLUCOSE [id number] 20:53:00 Test Item Value Reference Range Interpretation Comments POC-GLUCOSE METER 182 mg/dL 70-110 H TESTED AT [facility] 6720 (JOLEEN) (test code = [place] 1538) [address] T4, [id number] 20:33:00 Test Item Value Reference Range Interpretation Comments FREE T4 (JOLEEN) (test code = 655) 1.27 ng/dL 0.70-1.48 [id number] 20:33:00 Test Item Value Reference Range Interpretation Comments FERRITIN (JOLEEN) (test code = 361) 75 ng/mL 5-275 VITAMIN D, [id number] 20:32:00 Test Item Value Reference Range Interpretation Comments VITAMIN D 25-OH (BEAKER) (test 24.7 ng/mL 6.6-49.9 code = 2764) Effective 06/27/2017: Reference Range ChangeNew: 6.6-49.9 ng/mL Previous: 13.0- 47.8 ng/mLRecommendedVitamin D Target Range: 30.0-40.0 ng/mLTRANSFERRIN 2017-07-17 20:20:00 Test Item Value Reference Range Interpretation Comments TRANSFERRIN (JOLEEN) (test code = 418 mg/dL 174-382 H 541) [id number] 20:17:00 Test Item Value Reference Range Interpretation Comments PREALBUMIN (BEAKER) (test code = 27 mg/dL 14-45 586) IRON, [id number] 20:17:00 Test Item Value Reference Range Interpretation Comments IRON (BEAKER) (test code = 547) 102 ug/dL 40-160 URIC [id number] 20:16:00 Test Item Value Reference Range Interpretation Comments URIC ACID (BEAKER) (test code = 8.3 mg/dL 2.6-7.2 H 773) [id number] 20:16:00 Test Item Value Reference Range Interpretation Comments PHOSPHORUS (BEAKER) (test code = 3.5 mg/dL 2.3-4.7 604) HEPATIC FUNCTION [id number] 20:16:00 Test Item Value Reference Range Interpretation [...] (test code = 17 U/L 6-55 347) [id number] 20:16:00 Test Item Value Reference Range Interpretation Comments AMYLASE (BEAKER) (test code = 349) 72 U/L 25-125 [id number] 20:16:00 Test Item Value Reference Range Interpretation [...] 222 U/L 125-220 H code = 635) [id number] 20:16:00 Test Item Value Reference Range Interpretation Comments LIPASE (BEAKER) (test code = 749) 43 U/L 8-78 RETICULOCYTE [id number] 19:56:00 Test Item Value Reference Range Interpretation Comments RETICULOCYTE COUNT PCT (BEAKER) (test 1.6 % 0.5-1.8 code = 575) CT, CHEST, WITHOUT [id number] 18:13:00FINAL REPORT CT of the Chest and Abdomen dated 07/17/2017 Clinical information:Heart transplant evaluation Comment: Axial images of the [...] are normal in size without focal abnormality. Ga llbladder is contracted. No gallstone or biliary dilatation is noted. Pancreas and adrenals are unremarkable. Both kidneys are normal in size. No hydronephrosis or hydroureter is noted. Hyperdense collection is seen in the bilateral renal collecting system from recent intravenous contrast study. The sm all and large bowel are suboptimally evaluated secondary to lack of GI and intravenous contrast. No small or large bowel dilatation seen. Appendix is not visualized. Atherosclerotic calcification is seen in the abdominal aorta, superior mesenteric, bilateral renal, and bilateral arteries. No mass, joanie opathy or ascites present. Impression: 1. Atherosclerotic calcification in the thoracic and abdominal aorta as well as branch vessels.2. Minimal scarring in the left upper lobe and subsegmental atelectasis in the right upper and lower lobe. 3. Unremarkable noncontrast enhanced CT of the abdomen. Signed: Yuliya Garrett MDReport Verified Date/Time: 07/17/2017 18:13:06 Reading Location: [facility] C013Y CT Body Reading Room CT, ABDOMEN, WITHOUT [id number] 18:13:00FINAL REPORT CT of the Chest and Abdomen dated 07/17/2017 Clinical information:Heart transplant evaluation Comment: Axial images of the [...] unremarkable. No adenopathy in the mediastinum or per ihilar region. Trachea and mainstem bronchus are patent. [...] system from recent intravenous contrast study. The sm all and large bowel are suboptimally evaluated secondary to lack of GI and intravenous contrast. No small or large bowel dilatation seen. Appendix is not visualized. Atherosclerotic calcification is seen in the abdominal aorta, superior mesenteric, bilateral renal, and bilateral arteries. No mass, joanie opathy or ascites present. Impression: 1. Atherosclerotic calcification in the thoracic and abdominal aorta as well as branch vessels.2. Minimal scarring in the left upper lobe and subsegmental atelectasis in the right upper and lower lobe. 3. Unremarkable noncontrast enhanced CT of the abdomen. Signed: Yuliya Garrett Verified Date/Time: 07/17/2017 18:13:06 Reading Location: [facility] C013Y CT Body Reading Room CT, BRAIN, WITHOUT [id number] 17:55:00FINAL REPORT CT Head without contrast CLINICAL [...] are well- aerated. IMPRESSION: Small chronic right cerebellar infarct. Signed: Keo Elizabeth Verified Date/Time: 07/17/2017 17:55:05 Reading Location: [facility] Radiology Reading Room POCT-GLUCOSE [id number] 14:27:00 Test Item Value Reference Range Interpretation Comments POC-GLUCOSE METER 121 mg/dL 70-110 H TESTED AT [facility] 67 ([facility]) (test code = [facility] Casey [facility] 1538) [address] POCT-GLUCOSE [id number] 07:28:00 Test Item Value Reference Range Interpretation Comments POC-GLUCOSE METER 158 mg/dL 70-110 H TESTED AT [facility] 6720 ([facility]) (test code = [facility] 1538) [address] [id number] 04:57:00 Test Item Value Reference Range Interpretation Comments MAGNESIUM ([facility]) (test code = 1.6 mg/dL 1.6-2.6 627) BASIC METABOLIC [id number] 04:57:00 Test Item Value Reference Range Interpretation [...] 0-0 (BEAKER) (test code = 413) POCT-GLUCOSE [id number] 21:00:00 Test Item Value Reference Range Interpretation Comments POC-GLUCOSE METER 160 mg/dL 70-110 H TESTED AT [facility] 67 [facility] (test code = [facility] 1538) [address] POCT-GLUCOSE [id number] 17:10:00 Test Item Value Reference Range Interpretation Comments POC-GLUCOSE METER 148 mg/dL 70-110 H TESTED AT [place] [address] ([facility]) (test code = [facility] [facility] 1538) [id number] POCT-GLUCOSE [id number] 12:10:00 Test Item Value Reference Range Interpretation Comments POC-GLUCOSE METER 246 mg/dL 70-110 H TESTED AT [place] [address] ([facility]) (test code = [facility] 1538) [id number] POCT-GLUCOSE [id number] 08:32:00 Test Item Value Reference Range Interpretation Comments POC-GLUCOSE METER 186 mg/dL 70-110 H TESTED AT [place] [address] ([facility]) (test code = [facility] 1538) [id number] 06:35:00 Test Item Value Reference Range Interpretation Comments MAGNESIUM (BEAKER) (test code = 1.7 mg/dL 1.6-2.6 627) BASIC METABOLIC [id number] 06:35:00 Test Item Value Reference Range Interpretation [...] 0-0 (BEAKER) (test code = 413) POCT-GLUCOSE [id number] 20:53:00 Test Item Value Reference Range Interpretation Comments POC-GLUCOSE METER 228 mg/dL 70-110 H TESTED AT [facility] 6720 ([facility]) (test code = DOUGLAS FARIA 1538) [id number] POCT-GLUCOSE [id number] 17:06:00 Test Item Value Reference Range Interpretation Comments POC-GLUCOSE METER 194 mg/dL 70-110 H TESTED AT [facility] 6720 ([facility]) (test code = DOUGLAS [place] 1538) [address] POCT-GLUCOSE [id number] 13:27:00 Test Item Value Reference Range Interpretation Comments POC-GLUCOSE METER 272 mg/dL 70-110 H TESTED AT [facility] 6720 (BEAKER) (test code = DOUGLAS Peña [facility] 1538) [id number] POCT-GLUCOSE [id number] 09:14:00 Test Item Value Reference Range Interpretation Comments POC-GLUCOSE METER 172 mg/dL 70-110 H TESTED AT [facility] 6720 (BEAKER) (test code = DOUGLAS Peña [facility] 1538) [id number] 07:37:00 Test Item Value Reference Range Interpretation Comments MAGNESIUM (BEAKER) (test code = 2.2 mg/dL 1.6-2.6 627) BASIC METABOLIC [id number] 07:37:00 Test Item Value Reference Range Interpretation [...] (BEAKER) (test code = 412) PLATELET COUNT ([facility]) (test 188 K/CU MM 150-450 code = 756) MEAN PLATELET VOLUME (AKER) 10.0 fL 9.4-12.4 (test code = 754) NUCLEATED RED BLOOD CELLS 0 /100 WBC 0-0 ([facility]) (test code = 413) POCT-GLUCOSE [id number] 21:21:00 Test Item Value Reference Range Interpretation Comments POC-GLUCOSE METER 315 mg/dL 70-110 H TESTED AT [place] [address] ([facility]) (test code = IBETHDHIRAJ Peña [place] 1538) [id number] POCT-GLUCOSE [id number] 17:03:00 Test Item Value Reference Range Interpretation Comments POC-GLUCOSE METER 171 mg/dL 70-110 H TESTED AT [place] [address] ([facility]) (test code = IBETHDHIRAJ Peña [place] 1538) [id number] POCT-GLUCOSE [id number] 12:23:00 Test Item Value Reference Range Interpretation Comments POC-GLUCOSE METER 204 mg/dL 70-110 H TESTED AT [place] [address] ([facility]) (test code = IBETHDHIRAJ Peña [place] 1538) [id number] POCT-GLUCOSE [id number] 08:21:00 Test Item Value Reference Range Interpretation Comments POC-GLUCOSE METER 141 mg/dL 70-110 H TESTED AT [place] [address] ([facility]) (test code = IBETHDHIRAJ Peña [place] 1538) [id number] CBC (HEMOGRAM ONLY)2017-07-14 06:15:00 Test Item Value Reference Range Interpretation Comments WHITE BLOOD CELL COUNT (AKER) 7.4 K/ L 3.5-10.5 (test code = [...] WBC 0-0 (BEAKER) (test code = 413) [id number] 03:28:00 Test Item Value Reference Range Interpretation Comments MAGNESIUM (BEAKER) (test code = 1.5 mg/dL 1.6-2.6 L 627) LIPID [id number] 03:28:00 Test Item Value Reference Range Interpretation [...] 130-159 High 160-189 Very High >=190BASIC METABOLIC [id number] 03:28:00 Test Item Value Reference Range Interpretation [...] S NOT APPLICABLE FOR DIALYSIS PATIEN TS. [id number] 02:36:00 Test Item Value Reference Range Interpretation Comments PARTIAL THROMBOPLASTIN TIME 25.9 seconds 22.5-36.0 (BEAKER) (test code = 760) POCT-GLUCOSE [id number] 22:55:00 Test Item Value Reference Range Interpretation Comments POC-GLUCOSE METER 206 mg/dL 70-110 H TESTED AT [facility] 6720 (BEAKER) (test code = DOUGLAS Peña [place] 1538) [id number] 18:22:00 Test Item Value Reference Range Interpretation Comments PARTIAL THROMBOPLASTIN TIME 41.6 seconds 22.5-36.0 H (BEAKER) (test code = 760) CREATINE KINASE (CK), TOTAL AND [id number] 12:57:00 Test Item Value Reference Range Interpretation Comments CREATINE KINASE TOTAL (BEAKER) 142 U/L 29-200 (test code = 380) CREATINE KINASE-MB (BEAKER) (test 5.3 ng/mL 0.0-6.6 code = 750) CREATINE KINASE-MB INDEX (BEAKER) 3.7 % (test code = 395) CK-MB Reference Range:<6.7 Normal6.7-10.0 Borderline>10.0 AbnormalTROPONIN [id number] 12:55:00 Test Item Value Reference Range Interpretation [...] acidosis, acute neurological disease, and persistent tachyarrhythmia.POCT-GLUCOSE [id number] 11:57:00 Test Item Value Reference Range Interpretation Comments POC-GLUCOSE METER 105 mg/dL 70-110 TESTED AT [facility] 6720 (JOLEEN) (test code = [place] 1538) [id number] HEMOGLOBIN [id number] 10:45:00 Test Item Value Reference Range Interpretation Comments HEMOGLOBIN A1C (JOLEEN) (test code = 7.1 % 4.3-6.1 H 368) TSH/FREE T4 IF [id number] 09:41:00 Test Item Value Reference Range Interpretation Comments THYROID STIMULATING HORMONE 1.16 uIU/mL 0.35-4.94 (JOLEEN) (test code = 772) U/S, RENAL, [id number] 09:15:00Reason for exam:->AKIFINAL REPORT Ultrasound of the Kidneys, 07/13/2017. Clinical History: Acute kidney injury. Discussion:Sonographic evaluation of the kidneys is [...] of the bilateral kidneys. Signed: Andrés Trejo MDReport Verified Date/Time: 07/13/2017 09:15:34 Reading Location: [facility] [id number] Ultrasound Reading Room APTT 2017-07-13 08:56:00 Test Item Value Reference Range Interpretation Comments PARTIAL THROMBOPLASTIN TIME 27.7 seconds 22.5-36.0 (BEAKER) (test code = 760) Prior to initiating heparinPLATELET [id number] 08:51:00 Test Item Value Reference Range Interpretation Comments PLATELET COUNT (BEAKER) (test 183 K/CU MM 150-450 code = 756) URINALYSIS W/ [id number] 08:45:00 Test Item Value Reference Range Interpretation [...] code = 516) SOURCE(BEAKER) (test code = 3873) POCT-GLUCOSE [id number] 07:58:00 Test Item Value Reference Range Interpretation Comments POC-GLUCOSE METER 186 mg/dL 70-110 H TESTED AT [facility] 6720 (BEAKER) (test code = [place] 1538) [id number] RAPID DRUG SCREEN, [id number] 07:31:00 Test Item Value Reference Range Interpretation [...] unconfirmed qualitative test result for the clinical managementof patients in emergency situations. Chain of custody not maintained. Some hpke-xee-kuquuoi medications, as well as adulterants, may cause inaccurate results. Clinical correlation should be applied. A more comprehensive drug screen or confirmation of a detected drug may be performed upon request. CREATININE, RANDOM [id number] 07:25:00 Test Item Value Reference Range Interpretation Comments CREATININE URINE (BEAKER) (test 39.7 mg/dL code = 375) Reference Range: No NormalsSODIUM, RANDOM [id number] 07:25:00 Test Item Value Reference Range Interpretation Comments SODIUM URINE (BEAKER) (test code = 95 meq/L 243) Reference Range: No NormalsCREATINE KINASE (CK), TOTAL AND [id number] 07:05:00 Test Item Value Reference Range Interpretation Comments CREATINE KINASE TOTAL (BEAKER) 101 U/L 29-200 (test code = 380) CREATINE KINASE-MB (BEAKER) (test 3.8 ng/mL 0.0-6.6 code = 750) CREATINE KINASE-MB INDEX (BEAKER) 3.8 % (test code = 395) CK-MB Reference Range:<6.7 Normal6.7-10.0 Borderline>10.0 AbnormalTROPONIN [id number] 07:05:00 Test Item Value Reference Range Interpretation Comments TROPONIN I (BEGEORGE) (test code = 0.10 ng/mL 0.00-0.03 H [...] and persistent tachyarrhythmia.RAD, CHEST, 1 VIEW, NON [id number] 01:09:00Reason for exam:->SHORTNESS OF BREATHShould this be performed at the bedside?->YesFINAL REPORT EXAMINATION: AP PORTABLE CHEST RADIOGRAPH CLINICAL INDICATION: Intubated IMPRESSION: Compared with 05/26/2017 Patient is status post cardiothoracic surgery and placementof a right subclavian AICD. The heart is [...] technical issues (EPIC downtime). Signed: Whitney Mock MDRjay Verified Date/Time: 07/13/2017 01:09:11 Reading Location: [address] Reading Room CREATINE KINASE (CK), TOTAL AND [id number] 00:42:00 Test Item Value Reference Range Interpretation Comments CREATINE KINASE TOTAL (BEAKER) 66 U/L 29-200 (test code = 380) CREATINE KINASE-MB (BEAKER) (test 2.1 ng/mL 0.0-6.6 code = 750) CREATINE KINASE-MB INDEX (BEAKER) 3.2 % (test code = 395) CK-MB Reference Range:<6.7 Normal6.7-10.0 Borderline>10.0 Abnormal TROPONIN [id number] 00:42:00 Test Item Value Reference Range Interpretation [...] acute neurological disease, and persistent tachyarrhythmia.BASIC METABOLIC [id number] 00:40:00 Test Item Value Reference Range Interpretation [...] = 700) CBC W/PLT COUNT & AUTO [id number] 00:16:00 Test Item Value Reference Range Interpretation [...]
[2022-04-20] MEDS ORDERED: FUROSEMIDE 40 MG/4 ML VIAL ONE (12:28)
[2022-04-20] MEDS ORDERED: LEVALBUTEROL 1.25 MG/3 ML NEB ONE (12:28)
--- NOTE | 2022-04-20 12:28 | RAD REPORT ---
EXAM DESCRIPTION: RAD - Chest Single View - 04/20/2022 12:20 pm CLINICAL HISTORY: SOB Chest pain. COMPARISON: Chest Single View dated 03/18/2022; Chest Pa And Lat (2 Views) dated 12/09/2021; Chest Pa A nd Lat (2 Views) dated 03/25/2018; Chest Single View dated 05/26/2017 FINDINGS: Portable technique limits examination quality. Mild interstitial pulmonary edema. The heart is mildly enlarged. No displaced fractures.Multi lead pa cer/defibrillator device is in place. IMPRESSION: Mild CHF.
[2022-04-20 12:32] LABS: Absolute Lymphocytes (CBC) 1.1 K/uL (0.7-4.9); Hematocrit 40.6 % (39.6-49.0); Lymphocytes % 15.8 % (15.3-44.8); MCV 89.2 fL (80-100); MPV 7.6 fL (7.6-11.3); RBC Red Blood Cell Count 4.55 M/uL (4.33-5.43)
[2022-04-20 12:39] LABS: Protime INR 1.28
[2022-04-20 12:50] LABS: Potassium 5.1 mmol/L (3.5-5.1); Troponin High Sensitivity 40.2 pg/mL (<58.9)
--- NOTE | 2022-04-20 16:29 | ER ---
Nurse's Notes [facility] Name: Han Hyde Age: 71 yrs Sex: Male : 1950 Arrival Date: 04/20/2022 Time: 11:51 Bed 25 Private MD: Diagnosis: Heart failure, unspecified;Shortness of breath Presentation: 04/20 12:03 Chief complaint: SOB since last night, has not taken his Lasix in 2 days. Coronavirus hb screen: Client presents with at least one sign or symptom that may indicate coronavirus-19. Standard/surgical mask placed on the client. Provider contacted for isolation considerations. Ebola Screen: No symptoms or risks identified at this time. Initial Sepsis Screen: Does the patient meet any 2 criteria? No. Patient's initial sepsis screen is negative. Does the patient have a suspected source of infection? No. Patient's initial sepsis screen is negative. Risk Assessment: Do you want to hurt yourself or someone else? Patient reports no desire to harm self or others. Onset of symptoms was April 19, 2022. 12:03 Method Of Arrival: Wheelchair hb 12:03 Acuity: RAUL 3 hb Triage Assessment: 12:04 General: Appears in no apparent distress. Behavior is cooperative, agitated. Pain: hb Denies pain. EENT: No signs and/or symptoms were reported regarding the EENT system. Neuro: Level of Consciousness is awake, alert, obeys commands, Oriented to person, place, time, situation. Cardiovascular: Patient's skin is warm and dry. Respiratory: Reports shortness of breath Respiratory effort is mildly labored. GI: No signs and/or symptoms were reported involving the gastrointestinal system. : No signs and/or symptoms were reported regarding the genitourinary system. Derm: Skin is pink, warm \T\ dry. Musculoskeletal: No signs and/or symptoms reported regarding the musculoskeletal system. Historical: - Allergies: 12:04 Demerol; hb 12:04 Lisinopril; hb 12:04 Xarelto; hb - Home Meds: 12:04 Amiodarone Oral [Active]; Aspirin Oral [Active]; carvedilol Oral [Active]; Digoxin Oral hb [Active]; Eliquis Oral [Active]; Entresto Oral [Active]; fenofibrate Oral [Active]; Furosemide Oral [Active]; Lokelma Oral [Active]; Magnesium Oxide Oral [Active]; rosuvastatin Oral [Active]; - PMHx: 12:04 Atrial fibrillation; CHF; pacemaker/defibrillator; hb - PSHx: 12:04 Stented artery; hb - Immunization history:: Adult Immunizations up to date, Client reports receiving the 2nd dose of the Covid vaccine. - Social history:: Smoking status: Patient/guardian denies using tobacco. Screenin:06 Abuse screen: Denies threats or abuse. Denies injuries from another. Nutritional hb screening: No deficits noted. Tuberculosis screening: No symptoms or risk factors identified. Fall Risk None identified. Assessment: 12:06 General: see triage assessment. hb 13:05 Reassessment: Patient appears in no apparent distress at this time. Patient and/or hb family updated on plan of care and expected duration. Pain level reassessed. Patient is alert, oriented x 3, equal unlabored respirations, skin warm/dry/pink. 14:17 Reassessment: Patient appears in no apparent distress at this time. Patient and/or hb family updated on plan of care and expected duration. Pain level reassessed. Patient is alert, oriented x 3, equal unlabored respirations, skin warm/dry/pink. 15:21 Reassessment: Patient appears in no apparent distress at this time. Patient and/or hb family updated on plan of care and expected duration. Pain level reassessed. Patient is alert, oriented x 3, equal unlabored respirations, skin warm/dry/pink. 16:30 Reassessment: Patient appears in no apparent distress at this time. Patient and/or hb family updated on plan of care and expected duration. Pain level reassessed. Patient is alert, oriented x 3, equal unlabored respirations, skin warm/dry/pink. Vital Signs: 12:03 BP 174 / 78; Pulse 78; Resp 24; Temp 98.1; Pulse Ox 96% on R/A; Weight 83.91 kg; Height hb 5 ft. 7 in. (170.18 cm); Pain 0/10; 12:34 BP 127 / 67; Pulse 65; Resp 20; Pulse Ox 100% on Nebulizer Mask; hb 13:05 BP 123 / 58; Pulse 63; Resp 19; Pulse Ox 96% on R/A; hb 14:17 BP 120 / 61; Pulse 60; Resp 15; Pulse Ox 97% on R/A; hb 15:21 BP 120 / 82; Pulse 61; Resp 17; Pulse Ox 97% on R/A; hb 16:30 BP 141 / 63; Pulse 61; Resp 21; Pulse Ox 97% on R/A; hb 12:03 Body Mass Index 28.97 (83.91 kg, 170.18 cm) hb ED Course: 11:51 Patient arrived in ED. mr 11:52 Giovani Guzman MD is Attending Physician. kdr 12:03 Ruth Gamez, RN is Primary Nurse. hb 12:04 Triage completed. hb 12:06 Arm band placed on. hb 12:06 Patient has correct armband on for positive identification. hb 12:15 Inserted saline lock: 20 gauge in left antecubital area, using aseptic technique. Blood hb collected. 12:22 XRAY Chest (1 view) In Process Unspecified. EDMS 16:39 No provider procedures requiring assistance completed. IV discontinued, intact, hb bleeding controlled, No redness/swelling at site. Administered Medications: 12:30 Drug: Xopenex (levalbuterol) (3) 1.25 mg Route: Inhalation; hb 13:13 Follow up: Response: No adverse reaction hb 12:32 Drug: Lasix (furosemide) 40 mg Route: IVP; Site: right antecubital; hb 13:13 Follow up: Response: No adverse reaction hb Medication: 12:06 VIS not applicable for this client. hb Outcome: 16:28 Discharge ordered by . kdr 16:39 Discharged to home ambulatory, with significant other. hb 16:39 Condition: stable 16:39 Discharge instructions given to patient, significant other, Instructed on discharge instructions, follow up and referral plans. medication usage, Demonstrated understanding of instructions, follow-up care, medications. 16:39 Patient left the ED. hb Signatures: Dispatcher [employer] EDMS Giovani Guzman MD MD [facility] Swann mr Ruth Gamez, RN RN hb Corrections: (The following items were deleted from the chart) 12:06 12:03 BP 174 / 78; Pulse 78bpm; Resp 20bpm; Pulse Ox 96% RA; Temp 98.1F; 83.91 kg; hb Height 5 ft. 7 in.; BMI: 28.9; Pain 0/10; hb
--- NOTE | 2022-04-20 16:29 | EDPHYS ---
Physician Documentation [facility] Name: Han Hyde Age: 71 yrs Sex: Male : 1950 Arrival Date: 04/20/2022 Time: 11:51 Bed 25 Private MD: ED Physician Giovani Guzman HPI: 04/20 15:32 This 71 yrs old Male presents to ER via Wheelchair with complaints of Breathing kdr Difficulty. 15:32 The patient has shortness of breath at rest. kdr 04/21 08:48 Onset: The symptoms/episode began/occurred gradually, 2 day(s) ago, Short of breath but kdr his shortness of breath was worse over the last few days.. Duration: The symptoms are continuous, and are steadily getting worse. The patient's shortness of breath is aggravated by exertion, light activity, walking, is alleviated by nothing. Associated signs and symptoms: The patient has no apparent associated signs or symptoms. Severity of symptoms: At their worst the symptoms were moderate severe just prior to arrival, in the emergency department the symptoms are unchanged. The patient has experienced similar episodes in the past, several times. The patient has not recently seen a physician. Historical: - Allergies: 04/20 12:04 Demerol; hb 12:04 Lisinopril; hb 12:04 Xarelto; hb - Home Meds: 12:04 Amiodarone Oral [Active]; Aspirin Oral [Active]; carvedilol Oral [Active]; Digoxin Oral hb [Active]; Eliquis Oral [Active]; Entresto Oral [Active]; fenofibrate Oral [Active]; Furosemide Oral [Active]; Lokelma Oral [Active]; Magnesium Oxide Oral [Active]; rosuvastatin Oral [Active]; - PMHx: 12:04 Atrial fibrillation; CHF; pacemaker/defibrillator; hb - PSHx: 12:04 Stented artery; hb - Immunization history:: Adult Immunizations up to date, Client reports receiving the 2nd dose of the Covid vaccine. - Social history:: Smoking status: Patient/guardian denies using tobacco. ROS: 04/21 08:48 Constitutional: Negative for fever, chills, and weight loss, Eyes: Negative for injury, kdr pain, redness, and discharge, ENT: Negative for injury, pain, and discharge, Neck: Negative for injury, pain, and swelling, Respiratory: Negative for shortness of breath, cough, wheezing, and pleuritic chest pain, Abdomen/GI: Negative for abdominal pain, nausea, vomiting, diarrhea, and constipation, Back: Negative for injury and pain, MS/Extremity: Negative for injury and deformity, Skin: Negative for injury, rash, and discoloration, Neuro: Negative for headache, weakness, numbness, tingling, and seizure activity. Psych: Negative for depression, anxiety, suicide ideation, homicidal ideation, and hallucinations, Allergy/Immunology: Negative for hives, rash, and allergies, Endocrine: Negative for neck swelling, polydipsia, polyuria, polyphagia, and marked weight changes, Hematologic/Lymphatic: Negative for swollen nodes, abnormal bleeding, and unusual bruising. Cardiovascular: Positive for edema, palpitations. Respiratory: Positive for dyspnea on exertion, shortness of breath, wheezing. Exam: 04/20 12:41 ECG was reviewed by the Attending Physician. kdr 04/21 08:48 Constitutional: This is a well developed, well nourished patient who is awake, alert, kdr and in no acute distress. Head/Face: Normocephalic, atraumatic. Eyes: Pupils equal round and reactive to light, extra-ocular motions intact. Lids and lashes normal. Conjunctiva and sclera are non-icteric and not injected. Cornea within normal limits. Periorbital areas with no swelling, redness, or edema. Neck: Trachea midline, no thyromegaly or masses palpated, and no cervical lymphadenopathy. Supple, full range of motion without nuchal rigidity, or vertebral point tenderness. No Meningismus. Chest/axilla: Normal chest wall appearance and motion. Nontender with no deformity. No lesions are appreciated. Respiratory: Lungs have equal breath sounds bilaterally, clear to auscultation and percussion. No rales, rhonchi or wheezes noted. No increased work of breathing, no retractions or nasal flaring. Abdomen/GI: Soft, non-tender, with normal bowel sounds. No distension or tympany. No guarding or rebound. No evidence of tenderness throughout. Back: No spinal tenderness. No costovertebral tenderness. Full range of motion. Skin: Warm, dry with normal turgor. Normal color with no rashes, no lesions, and no evidence of cellulitis. MS/ Extremity: Pulses equal, no cyanosis. Neurovascular intact. Full, normal range of motion. Neuro: Awake and alert, GCS 15, oriented to person, place, time, and situation. Cranial nerves II-XII grossly intact. Motor strength 5/5 in all extremities. Sensory grossly intact. Cerebellar exam normal. Normal gait. Psych: Awake, alert, with orientation to person, place and time. Behavior, mood, and affect are within normal limits. Cardiovascular: Rate: normal, Rhythm: regular. Vital Signs: 04/20 12:03 BP 174 / 78; Pulse 78; Resp 24; Temp 98.1; Pulse Ox 96% on R/A; Weight 83.91 kg; Height hb 5 ft. 7 in. (170.18 cm); Pain 0/10; 12:34 BP 127 / 67; Pulse 65; Resp 20; Pulse Ox 100% on Nebulizer Mask; hb 13:05 BP 123 / 58; Pulse 63; Resp 19; Pulse Ox 96% on R/A; hb 14:17 BP 120 / 61; Pulse 60; Resp 15; Pulse Ox 97% on R/A; hb 15:21 BP 120 / 82; Pulse 61; Resp 17; Pulse Ox 97% on R/A; hb 16:30 BP 141 / 63; Pulse 61; Resp 21; Pulse Ox 97% on R/A; hb 12:03 Body Mass Index 28.97 (83.91 kg, 170.18 cm) hb MDM: 16:28 Patient medically screened. kdr 04/21 08:48 Data reviewed: vital signs, nurses notes, lab test result(s), EKG, radiologic studies. kdr Counseling: I had a detailed discussion with the patient and/or guardian regarding: the historical points, exam findings, and any diagnostic results supporting the discharge/admit diagnosis, lab results, radiology results, the need for outpatient follow up. 04/20 11:52 Order name: Basic Metabolic Panel; Complete Time: 15:31 kdr 04/20 11:52 Order name: CBC with Diff; Complete Time: 15:31 kdr 04/20 11:52 Order name: NT PRO-BNP; Complete Time: 15:31 kdr 04/20 11:52 Order name: PT-INR; Complete Time: 15:31 kdr 04/20 11:52 Order name: Troponin HS; Complete Time: 15:31 kdr 04/20 11:52 Order name: XRAY Chest (1 view); Complete Time: 15:31 kdr 04/20 11:52 Order name: EKG; Complete Time: 11:53 kdr 04/20 11:52 Order name: Cardiac monitoring; Complete Time: 12:07 kdr 04/20 11:52 Order name: EKG - Nurse/Tech; Complete Time: 12:33 kdr 04/20 11:52 Order name: IV Saline Lock; Complete Time: 12:33 kdr 04/20 11:52 Order name: Labs collected and sent; Complete Time: 12:33 kdr 04/20 11:52 Order name: O2 Per Protocol; Complete Time: 12: kdr 04/20 11:52 Order name: O2 Sat Monitoring; Complete Time: 12:08 kdr EC/04 12:41 Rate is 69 beats/min. Rhythm is regular, Sinus Rhythm with 1st degree heart block. QRS kdr [place] is Normal. MD interval is normal. QRS interval is normal. QT interval is normal. Clinical impression: NSR w/ Non-specific ST/T Changes. Administered Medications: 12:30 Drug: Xopenex (levalbuterol) (3) 1.25 mg Route: Inhalation; hb 13:13 Follow up: Response: No adverse reaction hb 12:32 Drug: Lasix (furosemide) 40 mg Route: IVP; Site: right antecubital; hb 13:13 Follow up: Response: No adverse reaction hb Disposition Summary: 04/20/22 16:28 Discharge Ordered Location: Home kdr Problem: new kdr Symptoms: have improved kdr Condition: Stable kdr Diagnosis - Heart failure, unspecified kdr - Shortness of breath kdr Followup: kdr - With: Private Physician - When: 2 - 3 days - Reason: If symptoms return, Further diagnostic work-up, Recheck today's complaints, Continuance of care, Re-evaluation by your physician Discharge Instructions: - Discharge Summary Sheet kdr - Shortness of Breath, Adult, [id number] kdr - Heart Failure, Diagnosis, Iond-wp-Bagq kdr Forms: - Medication Reconciliation Form kdr - Thank You Letter kdr Signatures: Dispatcher [employer] Giovani Malcolm MD MD kdr Ruth Gamez, RILEY RN hb
[2022-04-20 17:28] VITALS: TEMP 98.1
[2022-04-20 17:34] VITALS: O2SAT 97
[2022-04-20 17:39] VITALS: BP 141/63
--- NOTE | 2022-04-21 15:10 | EKG ---
Test Date: 2022-04-20 Test Time: 12:27:01 [employer]: HB MEASUREMENT RESULTS: Intervals: Rate: 69 HI: 222 QRSD: 126 QT: 396 QTc: 424 [place]: P: 81 HI: 222 QRS: 35 T: 137 INTERPRETIVE STATEMENTS: Sinus rhythm with 1st degree AV block Nonspecific intraventricular block ST elevation, consider early repolarization, pericarditis, or injury T wave abnormality, consider lateral ischemia Abnormal ECG Compared to ECG 03/18/2022 20:29:52 T-wave abnormality now present Possible ischemia now present Left bundle-branch block no longer present ST (T wave) deviation still present Electronically Signed On 04-21-22 15:08:15 CDT by Buzz Ag
== END 2022-04-20 16:39 | disposition home or self-care (01) ==
LOC: ER 11:50
DX: I50.9 Heart failure, unspecified (principal); I48.91 Unspecified atrial fibrillation; Z95.810 Presence of automatic (implantable) cardiac defibrillator; Z79.01 Long term (current) use of anticoagulants; Z79.82 Long term (current) use of aspirin; Z88.5 Allergy status to narcotic agent; Z88.8 Allergy status to other drugs, medicaments and biological substances
CPT/HCPCS: 93005; 85025; 80048; 36415; 85610; 84484; 83880; 71045; 96374; 99284; J1940

== ENCOUNTER 2022-05-30 21:36 | Inpatient (IN) | payer OTHER ==
--- OUTSIDE RECORDS SUMMARY | 2022-05-30 21:45 | XMS REPORT | Continuity of Care Document ---
:1950 Author Organization [facility] t Address [address] [place] [address] Care Team Providers Name Role Phone Kennedi Ford MD Primary Care Physician Paula Guzman Attending Clinician Unavailable SALVADOR MANJARREZ Attending Clinician Unavailable VETO UGARTE Attending Clinician Unavailable Val Deal RN Attending Clinician Unavailable Inessa COLEMAN, Alba Anthony Attending Clinician [phone] Angely Naidu MD Attending Clinician Sy Rae NP, Irma Attending Clinician Angelica COLEMAN, Georgina Attending Clinician Melba Jo MA Attending Clinician Unavailable Thalia COLEMAN, Ángel Mullen Attending Clinician [phone] Silva Swift RN Attending Clinician Unavailable Suzette COLEMAN, Sera Allen Attending Clinician Arvind Bejarano MA Attending Clinician Unavailable ABBEY HICKS Attending Clinician Unavailable Brandt Corrales MD Attending Clinician MD KRYSTAL HERNANDEZ Attending Clinician Unavailable SALVADOR MANJARREZ Attending Clinician Unavailable SALVADOR MANJARREZ M.D. Attending Clinician Unavailable WARREN MEEKS Attending Clinician Unavailable JW BOB Attending Clinician Unavailable SHEEBA GUILLAUME Attending Clinician Unavailable KEO AGUILAR Attending Clinician Unavailable MARY BOYLE Attending Clinician Unavailable WILY LINARES Attending Clinician Unavailable SAUL TARIQ Attending Clinician Unavailable ALBA PADILLA Admitting Clinician Unavailable KRYSTAL HERNANDEZ Admitting Clinician Unavailable Brandt Corrales MD Admitting Clinician MD KRYSTAL HERNANDEZ Admitting Clinician Unavailable JW BOB Admitting Clinician Unavailable GEORGINA DOMINGUEZ Admitting Clinician Unavailable VIRGINIA NEAL Admitting Clinician Unavailable Payers Payer Name Policy Type Policy Number Effective Date Expiration Date S ource [employer] MEDICARE PPO [id number] 2016 00:00:00 Problems Condition Condition Condition Status Onset Resolution Last Treating Co mments Source Name Details Category Date Date Treatment Clinician Date PAD PAD Disease Active Overview: Method i (periphera (periphera 04-[address] l artery l artery 00:00: g of this Hos chloe disease) disease) 00 note l might be different from the original. Added automatic ally from request for surgery [id number] Claudicati Claudicati Disease Active Overview : Methodi on on 04-[address] 00:00: g of this Hospita 00 note l might be different from the original. Added automatic ally from request for surgery [id number] Aortoiliac Aortoiliac Disease Active M ethodi obstructio obstructio 29 st n n 00:00: Hospita 00 l Obesity Obesity Disease Active Methodi (BMI (BMI 03-18 st 30-39.9) 30-39.9) 00:00: Hospit a 00 l Acute Acute Disease Active Methodi respirator respirator 03-17 st y failure y failure 00:00: Hosp chau with with 00 l hypoxia hypoxia Pulmonary Pulmonary Disease Active Met hodi insufficie insufficie 03-17 st ncy ncy 00:00: Hospita 00 l Chronic Chronic Disease Active UT left left 6-18 Health shoulder shoulder 00:00: pain pain 00 Status Status Disease Active UT post post 618 Health subacromia subacromia 00:00: l l 00 decompress decompress ion ion Status Status Disease Active UT post right post right 5-19 He alth rotator rotator 00:00: cuff cuff 00 repair repair Cardiac Cardiac Disease Active UT defibrilla defibrilla 3-03 He alth tor in tor in 00:00: place place 00 Left Left Disease Active UT shoulder shoulder 1-21 Health pain pain 00:00: 00 Coronary Coronary Disease Active Overview: Me thodi artery artery 05-[address] disease disease 00:00: g of this Hospi ta involving involving 00 note l [place] might be coronary coronary different artery artery from the original. Added automatic ally from request for surgery [id number] CKD CKD Disease Active Methodi (chronic (chronic 03-17 kidney kidney 00:00: Hospita disease) disease) 00 l stage 3, stage 3, GFR 30-59 GFR 30-59 ml/min ml/min MELINDA on MELINDA on Disease Active Methodi CPAP CPAP 03-17 00:00: Hospita 00 l Sleep Sleep Disease Active Methodi disorder disorder 05-23 due to a due to a 00:00: Hospit a general general 00 l medical medical condition, condition, insomnia insomnia type type Unstable Unstable Disease Active Metho di angina angina 05-23 00:00: Hospita 00 l Chronic Chronic Disease Active Overview: Meth kimberly 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 OD 09/11/17 PCB00 21.0OS 09/25/17 PCB00 21.0Last Assessmen t & Plan: Formattin g of this note might be different from the original. OD 09/11/17 PCB00 21.0OS 09/25/17 PCB00 21.0s/p phaco/PCI OL . Doing excellent . Defers MRx.OTC readers. Paroxysmal Paroxysmal Disease Active 2016-[address] atrial atrial 10-08 [facility] fibrillati fibrillati 00:00: Me dical on on 00 Center COPD COPD Disease Active 2016-[address] (chronic (chronic 10-08 [facility] obstructiv obstructiv 00:00: Me dical e e 00 Center pulmonary pulmonary disease) disease) Coronary Coronary Disease Active 2016-09 Overview: [facility] artery artery 10-08 [facility] disease disease 00:00: g of this Medic al involving involving 00 note Cent er [place] might be coronary coronary different artery artery from the original. S/p CABG Stage 3 Stage 3 Disease Active 2016-[address] chronic chronic 10-08 [facility] kidney kidney 00:00: Medical disease disease 00 Center Chronic Chronic Disease Active 2016-09 Overview: [facility] combined combined Formattin Flynn es systolic systolic 00:00: g of this Med ical and and 00 note Center diastolic diastolic might be CHF CHF different (congestiv (congestiv from the e heart e heart original. failure) failure) S/p AICD Smoker Smoker Disease Active 2016-[address] [facility] 00:[facility]: Medical 00 Center Type 2 Type 2 Disease Active 2016-[address] diabetes diabetes 0 [facility] mellitus mellitus 00:00: Medica l 00 Center Diabetes Diabetes Disease Active 2016-09 Last Metho di mellitus mellitus Assessmen st without without 00:00: t & Plan: Hospi ta complicati complicati 00 Formattin l on on g of this note might be different from the original. No diabetic retinopat hy. Importanc e of good blood sugar control discussed . Annual exams recommend ed with a comprehen [facility]. Letter sent Dr. Paula Guzman. Combined Combined Disease Active Overview: [facility] form of form of 05-26 [facility] senile senile 00:00: g of this Medical cataract cataract 00 note Center might be different from the original. Last Assessmen t & Plan: Visually significa nt. The risks/manjit efits/alt ernatives of cataract surgery were discussed with the patient. He understan ds and will proceed with schedulin g phaco. Cardiomyop Cardiomyop Disease Active M ethodi athy athy 05-26 00:00: Hospita 00 l Occluded Occluded Disease Active Metho di coronary coronary 05-26 artery artery 00:00: Hospita stent stent 00 l Shortness Shortness Disease Active Met hodi of breath of breath 05-26 00:00: Hospita 00 l Essential Essential Disease Active Met hodi hypertensi hypertensi 05-26 on on 00:00: Hospita 00 l Other Other Disease Active Methodi hyperlipid hyperlipid 05-26 emia emia 00:00: Hospita 00 l PDS PDS Disease Active Last Methodi (pigmentar (pigmentar 05-[address] y y 00:00: t & Plan: Hospita dispersion dispersion 00 Formattin l syndrome) syndrome) g of this note is different from the original. Old, mild, no glaucoma. IOP stable/go od.Tonome try (ORA CC, 1:23 PM) Right Left Pressure 13.4 14.3 Tonometry #2 (ORA CH, 1:23 PM) Right Left Pressure 10.4 10.0 Tonometry #3 (ORA G, 1:23 PM) Right Left Pressure 12.5 13.0 Left Left Problem Active UT shoulder shoulder [...] St BAN 0-26 [facility] 00:00: Medical 00 [place] Meperidi Propensi Active 2016-[address] ne ty to 0-26 [facility] adverse 00:00: Medical reaction 00 Center s Lisinopr Propensi Active 2016-[address] il ty to 0-26 [facility] adverse 00:00: Medical reaction 00 Center s Rivaroxa Propensi Active 2016-[address] ban ty to 0-26 [facility] adverse 00:00: Medical reaction 00 Center s Lisinopr Propensi Active es 2016-09 Method i il ty to 0-26 st adverse 00:00: Hospita reaction 00 l s to drug Rivaroxa Propensi Active 2016-09 Method i ban ty to 0-26 st adverse 00:00: Hospita reaction 00 l s to drug Meperidi Propensi Active Method i ne ty to 9-09 st adverse 00:00: Hospita reaction 00 l s to drug Demerol Allergy Active UT SOLN to drug Physici (finding ans ) lisinopr Allergy Active UT il to drug Physici (finding ans ) Xarelto Allergy Active UT TABS to drug Physici (finding ans ) Family History Family Member Diagnosis Comments Start Date Stop Date Source Natural father No Known Problems Met [facility] Natural mother No Known Problems Met [facility] Natural sister Diabetes [facility] Social History Social Habit Start Date Stop Date Quantity Comments Source Exposure to Not sure [facility] SARS-CoV-2 (event) Alcohol intake 2022-05-01 2022-05-01 Current [employer] 00:00:00 00:00:00 non-drinker of Hospital alcohol (finding) Cigarettes smoked [address] current (pack per 00:00:00 00:00:00 Hospita l day) - Reported Cigarette 2022 2022 [employer] pack-years 00:00:00 00:00:00 Hospital Tobacco Comment 2022 2022 50 YEARS [employer] 00:00:00 00:00:00 Hospital History of tobacco 1966-09-17 2017-07-27 Current smoker Me [facility]odist use 00:00:00 00:00:00 Hospital Tobacco use and 2017-07-13 2017-07-[address] [facility] [facility] exposure 00:00[facility]00 00:[facility]:00 [facility] Center Sex Ass[birth year] At [birth year] [employer] 00:00:00 00:00:00 Hospital Smoking Status Start Date Stop Date Source Tobacco smoking consumption [facility] Ex-smoker 2022 00:00:00 [facility]22 [facility] Ordered Filled Start Stop Current Ordering Indication Dosage Frequency Signature Comments Components Source Medication Medication Date Date Medication? Clinician (SIG) Name Name nitroglycer Yes .4mg Place 0.4 M ethodi in 8-[address] (NITROSTAT) 18:19: the tongue Hospita 0.4 MG SL 34 every 5 l tablet (five) minutes as needed for chest pain. aspirin Yes 81mg QD Take 81 mg Meth kimberly (ECOTRIN) 8-[address] 81 MG 18:19: daily. Hospita enteric 34 l coated tablet magnesium Yes 400mg Q.5D Take 400 Met hodi oxide 8-[address] (MAG-OX) 18:19: mouth 2 Hospit a 400 mg 34 (two) l (241.3 mg times a magnesium) day. tablet empaglifloz Yes 10mg QD Take 10 mg Methodi in 04-[address] (Jardiance) 18:19: daily. Hosp chau 10 mg 34 l tablet tablet Lokelma 5 Yes [id number] USE 1 Methodi gram powder 04-[address] in packet 00:00: DIRECTED Hosp chau packet 00 EVERY DAY l sacubitriL- 2022- Yes 1{tbl} Q.5D Take 1 M ethodi valsartan 03-[address] (Entresto) 00:00: 04:59 mouth 2 Hos chloe 49-51 mg 00 :00 (two) l tablet per times a tablet day. furosemide 2022- Yes 40mg Take 1 Meth kimberly (LASIX) 40 03-22 tablet (40 st mg tablet 00:00: 04:59 mg total) Ho spita 00 :00 by mouth l as needed (weight gain more than 3 pounds in a 24 hour period). carvediloL Yes TAKE 1 Metho di (COREG) 6-[address] 12.5 MG 00:00: MOUTH Hospita tablet 00 TWICE A l DAY WITH FOOD fenofibrate Yes TAKE 1 Meth kimberly (TRICOR) 6-[address] 145 MG 00:00: MOUTH Hospita tablet 00 EVERY DAY l Entresto 2021- No [id number] TAKE 1 Methodi 97-103 mg 6-12 08-[address] tablet per 00:00: 00:00 MOUTH Hospi ta tablet 00 :00 TWICE A l DAY amIODarone Yes [id number] TAKE 1 Methodi (PACERONE) 5-[address] 200 MG 00:00: MOUTH Hospita tablet 00 EVERY DAY l rosuvastati Yes TAKE 1 Meth kimberly n (CRESTOR) 4-[address] 40 MG 00:00: MOUTH Hospita tablet 00 EVERY DAY l AT NIGHT furosemide 2021- No 40mg QD Take 1 Meth kimberly (LASIX) 40 09-21- tablet (40 st mg tablet 00:00: 00:00 mg total) Ho spita 00 :00 by mouth l daily. carvediloL 2020-09- No TAKE 1 Meth kimberly (COREG) 2-07 03- TABLET BY st 12.5 MG 00:00: 00:00 MOUTH Hospita tablet 00 :00 TWICE A l DAY WITH FOOD Eliquis 5 2020-09 Yes [id number] TAKE 1 M ethodi mg tablet 2-[address] 00:00: MOUTH Hospita 00 TWICE A l DAY digOXIN 2020-09- No [id number] 125ug QD Take 1 M ethodi (LANOXIN) 0-04 10-[address] 125 mcg 00:00: 04:59 (125 mcg Hospi ta (0.125 mg) 00 :00 total) by l tablet mouth daily. sacubitriL- 2020-09- No 1{tbl} Q.5D Take 1 M ethodi valsartan 0-04 08-[address] (Entresto) 00:00: 00:00 mouth 2 Hos chloe 49-51 mg 00 :00 (two) l tablet per times a tablet day. furosemide 2021- No 40mg Q2D Take 1 Meth kimberly (LASIX) 40 05-14- tablet (40 st mg tablet 00:00: 00:00 mg total) Ho spita 00 :00 by mouth l every other day. sodium 2021- No [id number] 5g QD Take 5 g Methodi zirconium 04-13 07-[address] cyclosilica 00:00: 00:00 daily. Hos chloe te 00 :00 l (Lokelma) 5 gram powder in packet packet amIODarone 2021- No [id number] 200mg QD Take 1 Methodi (PACERONE) 04-13 05-[address] 200 MG 00:00: 00:00 (200 mg Hospita tablet 00 :00 total) by l mouth daily. albuterol 2021- No [id number] 2.5mg Q24H Take 0.5 Methodi sulfate 04-13 01-05 9100 mL (2.[address] (PROVENTIL) 00:00: 00:00 total) by Hospita 2.5 mg/0.5 00 :00 nebulizati l mL solution on daily for as needed nebulizatio for n wheezing (SOB) for up to 15 doses. digOXIN 2020- No [id number] TAKE 1 Me thodi (LANOXIN) -19 10-[address] 125 mcg 00:00: 00:00 MOUTH Hospita (0.125 mg) 00 :00 EVERY DAY l tablet insulin Yes 30U QD Inject 0.3 Meth kimberly degludec 7-05 mL (30 st (Tresiba 00:00: Units Hospita U-100 00 total) l Insulin) under the 100 unit/mL skin vial daily. Sliding scale insulin Yes Inject 10 Metho di ASPART 7-[address] (NovoLOG 00:00: with meals Hos chloe Flexpen 00 + sliding l U-100 scale up Insulin) to 50 100 unit/mL units a (3 mL) day. insulin pen pen needle, Yes Inject 4 Me thodi diabetic 32 7-[address] gauge x 00:00: day Hospita 32" 00 l needle fenofibrate 2021- No 145mg QD Take 1 Me thodi (TRICOR) -28 06-[address] 145 MG 00:00: 00:00 (145 mg Hospita tablet 00 :00 total) by l mouth daily. semaglutide Yes Inject UT (Ozempic, 1 5-19 under the Hea lth MG/DOSE,) 2 17:39: skin. MG/1.5ML 40 solution pen-injecto r semaglutide Yes Inject UT (Ozempic, 1 5-19 under the Hea lth MG/DOSE,) 2 17:39: skin. MG/1.5ML 40 solution pen-injecto r semaglutide Yes Inject UT (Ozempic, 1 5-19 under the Hea lth MG/DOSE,) 2 17:39: skin. MG/1.5ML 40 solution pen-injecto r insulin Yes Inject UT degludec 5-19 under the Health (Tresiba) 17:39: skin. 100 UNIT/ML 39 injection linaGLIPtin Yes 1{tbl} QD Take 1 UT -metFORMIN 5-19 tablet by [facility] HCl 17:39: mouth 1 2.5-1000 MG 39 [...] Take 1 UT -metFORMIN 5-19 tablet by [facility] HCl 17:39: mouth 1 2.5-1000 MG 39 [...] Take 1 UT -metFORMIN 5-19 tablet by [facility] HCl 17:39: mouth 1 2.5-1000 MG 39 [...] 12:39: skin. 100 UNIT/ML 39 injection linaGLIPtin 2020-0 [...] 12:39: skin. 100 UNIT/ML 39 injection linaGLIPtin 2020-0 Yes 1{tbl} QD Take 1 UT -metFORMIN 5-19 tablet by Heal th HCl 12:39: mouth 1 2.5-1000 MG 39 (one) time tablet each day. nitroglycer 2020-[address] 0.4 U T in 5-19 mg under Health (Nitrostat) 12:39: the tongue 0.4 MG SL 39 every 5 tablet (five) minutes if needed. glimepiride 2020-0 Yes 2mg QD Take 2 mg U T (Amaryl) 2 5-19 by mouth 1 Hea lth MG tablet 12:39: (one) time 38 each day. glimepiride 2021-0 Yes 2mg QD Take 2 mg U T (Amaryl) 2 5-19 by mouth 1 Hea lth MG tablet 12:39: (one) time 38 each day. Entresto 2021-0 Yes UT 97-103 MG 5-18 Health tablet 00:00: 00 Entresto 2021-0 Yes UT 97-103 MG 5-18 Health tablet 00:00: 00 Entresto 2021-0 Yes UT 97-103 MG 5-18 Health tablet 00:00: 00 Entresto 2020-0 Yes UT 97-103 MG 5-18 Health tablet 00:00: 00 Entresto 2020-0 Yes UT 97-103 MG 5-18 Health tablet 00:00: 00 Tresiba 2020-0 Yes INJECT 70 UT FlexTouch [...] -acetaminop 5-06 HRS PRN Healt h hen ([place]) 00:00: PAIN 5-325 MG 00 tablet HYDROcodone 2020-0 Yes 1-2 PO Q 6 UT -acetaminop 5-06 HRS PRN Healt h hen ([place]) 00:00: PAIN 5-325 MG 00 tablet HYDROcodone 2020-0 Yes 1-2 PO Q 6 UT -acetaminop 5-06 HRS PRN Healt h hen ([place]) 00:00: PAIN 5-325 MG 00 tablet HYDROcodone 2020-0 Yes 1-2 PO Q 6 UT -acetaminop 5-06 HRS PRN Healt h hen ([place]) 00:00: PAIN 5-325 MG 00 tablet HYDROcodone 2020-0 Yes 1-2 PO Q 6 UT -acetaminop 5-06 HRS PRN Healt h hen ([place]) 00:00: PAIN 5-325 MG 00 tablet Eliquis [...] 1 pen-injecto (one) time r per week. dulaglutide Yes 3mg Q7D 3 mg once M ethodi (TRULICITY) 5-[address] 3 mg/0.5 mL 00:00: Hospit a subcutaneou 00 l s pen tiZANidine 0 Yes 2mg QD Take 2 mg UT (Zanaflex) 4-28 by mouth Healt h 2 MG 00:00: at night capsule 00 if needed. tiZANidine 0 Yes 2mg QD Take 2 mg UT (Zanaflex) 4-28 by mouth Healt h 2 MG 00:00: at night capsule 00 if needed. tiZANidine 0 Yes 2mg QD Take 2 mg UT (Zanaflex) 4-28 by mouth Healt h 2 MG 00:00: at night capsule 00 if needed. tiZANidine 0 Yes 2mg QD Take 2 [...] tablet 00 EVERY DAY AT NIGHT rosuvastati 0 Yes TAKE 1 UT n (Crestor) 4-23 TABLET BY Hea lth 40 MG 00:00: MOUTH tablet 00 EVERY DAY AT NIGHT rosuvastati 0 Yes TAKE 1 UT n (Crestor) 4-23 TABLET BY Hea lth 40 MG 00:00: MOUTH tablet 00 EVERY DAY AT NIGHT rosuvastati 0 Yes TAKE 1 UT n (Crestor) 4-23 TABLET BY Hea lth 40 MG 00:00: MOUTH tablet 00 EVERY DAY AT NIGHT rosuvastati 2020-0 2022- No 40mg QD Take 1 Met hodi n (CRESTOR) 4-23 04-26 tablet (40 s t 40 MG 00:00: 00:00 mg total) Hospit a tablet 00 :00 by mouth l nightly. digoxin Yes 125ug QD Take 125 UT [...] 4 MM misc 00:00: ONCE DAILY 00 carvediloL 2020- No 12.5mg Q.5D Take 1 Me thodi (COREG) 2-04 28- tablet st 12.5 MG 00:00: 00:00 (12.5 mg Hospi ta tablet 00 :00 total) by l mouth 2 (two) times a day with meals. Eliquis 5 2019-09- No [id number] TAKE 1 Methodi mg tablet 2-15 09- TABLET BY st 00:00: 00:00 MOUTH Hospita 00 :00 TWICE A l DAY Ozempic, 1 2019- Yes INJECT UT MG/DOSE, 2 2-21 SUBCUTANEO Hea lth MG/1.5ML 00:00: USLY ONCE solution 00 A WEEK pen-injecto DIRECTED r Ozempic, 1 2019- Yes INJECT UT MG/DOSE, 2 2-21 SUBCUTANEO Hea lth MG/1.5ML 00:00: USLY ONCE solution 00 A WEEK pen-injecto DIRECTED r Ozempic, 1 2019-09 Yes INJECT UT MG/DOSE, 2 2-21 SUBCUTANEO Hea lth MG/1.5ML 00:00: USLY ONCE solution 00 A WEEK pen-injecto DIRECTED r Ozempic, 1 2019- Yes INJECT UT MG/DOSE, 2 2-21 SUBCUTANEO [...] Take 200 UT (Pacerone) 0-08 mg by [facility] 200 MG 00:00: mouth 1 tablet 00 [...] TAKE 3 UT jassi 9-03 TABLETS BY [place] (Reglan) 10 00:00: MOUTH MG tablet 00 DIRECTED USE DIRECTED PER YOUR COLONOSCOP Y PREP PACKET metoclopram 2019-0 Yes TAKE 3 UT jassi 9-03 TABLETS BY [place] (Reglan) 10 00:00: MOUTH MG tablet 00 DIRECTED USE DIRECTED PER YOUR COLONOSCOP Y PREP PACKET metoclopram 2019-0 Yes TAKE 3 UT jassi [...] PACKET Ozempic Ozempic 2019- No Elizabeth as Commo n 12-27 [place] directed Spirit 00:00: 00:00 - [facility] 00 :00 [facility] 2018- No Elizabeth 70 units C ommon FlexTouch FlexTouch 12-2710 [place] in am and Spirit 00:00: 00:00 increase - CHI 00 :[address] every 3 [facility] days until Medical fasting Center glucose less 120 max 70 units daily ELIQUIS 5 Yes TAKE [address] MG tablet 9-20 TABLET (5 [facility] 00:00: MG TOTAL) Medical 00 BY MOUTH 2 Center (TWO) TIMES DAILY. ENTRESTO Yes TAKE [address] 24-26 mg 7-19 TABLET BY [facility] Tab 00:00: MOUTH 2 Medical 00 (TWO) Center TIMES DAILY. linagliptin Yes type 2 1{tbl} QD Take [address] -metformin 6-29 diabetes tablet by [facility] (JENTADUETO 08:04: mellitus mouth M edical ) 2.5-1,000 43 daily. Center mg Tab glimepiride Yes 2mg QD Take [address] (AMARYL) 2 6-29 by mouth [facility]ukes MG tablet 08:04: every Medical 43 evening . Center digoxin Yes TAKE [address] (LANOXIN) 6-05 TABLET [facility]ukes 0.125 MG 00:00: (125 MCG Medic al tablet 00 TOTAL) BY Center MOUTH DAILY. magnesium Yes TAKE [address] oxide 4-27 TABLETS [facility] (MAG-OX) 00:00: (800 MG Medica l 400 mg 00 TOTAL) BY Center tablet MOUTH 2 (TWO) TIMES DAILY FOR 30 DAYS. magnesium 2018-0 Yes 400mg Q.5D Take 400 [...] 400 UT oxide 3-28 mg by Health ([facility]-Ox) 00:00: mouth 400 MG 00 twice a tablet day. Digoxin Digoxin 2017-0 Yes Elizabeth 1 tablet Co mmon 2-20 [place] [facility] 00:00: - CHI 00 [facility] Amiodarone Amiodarone 2018-0 Yes Elizabeth 1 tablet Common HCl HCl 2-20 [place] [facility] 00:00: - [facility]I 00 [facility] Bumetanide Bumetanide 2018-0 Yes Elizabeth as Common 2-20 [place] directed Spirit 00:00: - CHI 00 [facility] rosuvastati 2016- Yes 40mg QD Take [address] n (CRESTOR) 2-27 tablet (40 Edith kes 40 MG 00:00: mg total) Medical tablet 00 by mouth Center daily. sacubitril- 2016-09 Yes Comments: U T valsartan 2-21 | Filled Health (Entresto) 00:00: Date: Jan 08 MG 2017 tablet 12:00AM | Patient Notes: TAKE 1 TABLET BY MOUTH 2 (TWO) TIMES DAILY. Duration: 30 aspirin 81 2016- Yes 81mg QD Take 81 mg U [...] tablet 00:00: (one) time 00 each day. aspirin 81 2016-09 Yes 81mg QD Take 81 mg U T MG EC 2-21 by mouth 1 Health tablet 00:00: (one) time 00 each day. sacubitril- 2016-09 Yes Comments: U T valsartan 2-21 | Filled Health (Entresto) 00:00: Date: Jan 08 MG 2017 tablet 12:00AM | Patient Notes: TAKE 1 TABLET BY MOUTH 2 (TWO) TIMES DAILY. Duration: 30 amiodarone 2016-09 Yes 200mg QD Take [address] (PACERONE) 2-21 tablet [facility] 200 MG 00:00: (200 mg Medical tablet 00 total) by Center mouth daily. fenofibrate 2016-09 Yes 145mg QD Take [address] (TRICOR) 2-21 tablet [facility] 145 MG 00:00: (145 mg Medical tablet 00 total) by Center mouth daily. carvedilol 2016-09 Yes 12.5mg Take [address] (COREG) 2-21 tablet [facility]ukes 12.5 MG 00:00: (12.5 mg Medica l tablet 00 total) by Center mouth 2 (two) times daily with breakfast and dinner. Carvedilol Carvedilol Yes Elizabeth as Co mmon [place] directed [facility] Crestor Crestor Yes Elizabeth 1 tablet Comm on [place] [facility] Nitroglycer Nitroglycer Yes Elizabeth not Common in in [place] defined [facility] Tricor Tricor Yes Elizabeth 1 tablet Common [place] with food [facility] Albuterol Albuterol Yes Elizabeth 3 ml as C ommon Sulfate Sulfate [place] needed [facility] Eliquis Eliquis Yes Elizabeth 1 Common [place] [facility] Entresto Entresto Yes Elizabeth one Common 97/103mg 97/103mg [place] [facility] Glimepiride Glimepiride Yes Elizabeth TAKE 1 Common [place] TABLET AT [facility] BEDTIME [facility] Lancets Lancets Yes Elizabeth one Common Super Thin Super Thin [place] [facility] Glucometer Glucometer Yes Elizabeth one Co mmon [place] [facility] Aspir-81 Aspir-81 Yes Elizabeth 1 tablet Co mmon [place] [facility] NovoFine NovoFine Yes Elizabeth as Common Plus Plus [place] directed [facility] Immunizations Ordered Immunization Filled Immunization Date Status Commen ts Source Name Name ELSA HANCOCKAditya 2021-08-03 Completed Methodis t MRNA VACCINATION 00:00:00 [facility] FLUZONE [facility] 2021-05-26 Completed [employer] 00:00:00 [facility] COVID-19 2021-01-15 Completed Methodis t MRNA VACCINATION 00:00:00 [facility] COVID-19 2020-12-16 Completed Methodis t MRNA VACCINATION 00:00:00 [facility] Covid-19 Elsa 2020-12-04 [facility] SARS-CoV-2 00:00:00 Vaccination Covid-19 Elsa 2020-12-04 Completed [facility] SARS-CoV-2 00:00:00 Vaccination Covid-19 Elsa 2020-12-04 Completed UT [facility] SARS-CoV-2 00:00:00 Vaccination Covid-19 [facility] [...] [facility]:00 Vaccination MODERNA COVID-19 2020-10-26 Completed [facility] VACCINATION 00:00:00 Hospital Covid-19 [place] 2020-09-29 [facility]-CoV-2 [facility]:00:00 Vaccination Covid-19 Moderna 2020-09-29 [facility] SARS-CoV-2 00:00:00 Vaccination Covid-19 Moderna 2020-09-29 [facility] SARS-CoV-2 00:00:00 Vaccination Covid-19 Moderna 2020-09-29 [facility]-CoV-2 00:00:00 Vaccination Covid-19 Moderna 2020-09-29 [facility]-CoV-2 00:00:00 Vaccination MODERNA COVID-19 2020-09-29 Completed [facility] MRNA VACCINATION 00:00:00 [facility] FLUCELVAX QUAD PF 2020-06-[address] 00:00:00 [facility] FluAD FluAD 2019-06-12 Completed [facility] 00:00:00 [facility] FLUAD PF 2019-06-12 Completed [facility] 00:[facility] Influenza, 2018-05-24 [facility] injectable, MDCK, 00:00:00 preservative free, quadrivalent Influenza, 2018-05-24 [facility] injectable, MDCK, 00:00:00 preservative free, quadrivalent Influenza, 2018-05-24 [facility]pleted [facility] injectable, MDCK, 00:00:00 preservative free, quadrivalent Influenza, 2018-05-24 [facility]pleted [facility] injectable, MDCK, 00:00:00 preservative free, quadrivalent Influenza, 2018-05-24 [facility]pleted [facility] injectable, MDCK, 00:00:00 preservative free, quadrivalent FLUCELVAX QUAD PF 2018-05-[address] 00:[facility]00 [facility] Influenza, seasonal, 2017-07-05 [facility], [facility]00 preservative free Influenza, seasonal, 2017-07-05 [facility], [facility]:00 preservative free Influenza, seasonal, 2017-07-05 [facility], [facility]:00 preservative free Influenza, seasonal, 2017-07-05 [facility], [facility]:00 preservative free Influenza TIV (IM) 2017-07-05 Completed [facility] Influenza, seasonal, 2017-07-05 [facility], 00:[facility]:00 preservative free Influenza (IM) 2017-07-05 Completed [facility] Preservative Free 00:00:00 Hospita l Vital Signs Vital Name Observation Time Observation Value Comments Source Systolic blood 2022-04-27 20:51:00 128 mm[Hg] [facility] pressure Diastolic blood 2022-04-27 20:51:00 61 mm[Hg] [facility] pressure Heart rate 2022-04-27 20:51:00 63 /min [facility] Body temperature 2022-04-27 20:51:00 36.5 Roberta [facility] Respiratory rate 2022-04-27 20:51:00 15 /min [facility] Oxygen saturation in 2022-04-27 20:30:00 97 /min [facility] Arterial blood by Pulse oximetry Body height 2022-04-27 13:26:00 162.6 cm [facility] Body weight 2022-04-27 13:26:00 87.7 kg [facility] BMI 2022-04-27 13:26:00 33.19 kg/m2 [facility] Systolic blood 2020-10-07 10:03:00 119 mm[Hg] [facility] pressure Diastolic blood 2020-10-07 10:03:00 63 mm[Hg] [facility] pressure Heart Rate 2020-10-07 10:03:00 95 /min [facility] Procedures Procedure Date / Time Performing Clinician Source Performed POC GLUCOSE 2022-04-27 21:28:00 [facility] Raj POC GLUCOSE 2022-04-27 19:25[facility]00 [facility] 2022-04-27 18:22[facility]00 [facility] ARTERIAL BLOOD GAS, 2022-04-27 18:09:00 [facility] CORRECTED AND LYTES Raj ACTIVATED CLOTTING TIME 2022-04-27 17:44:00 [facility] 2022-04-27 17:26:44 Maddie Lopez [facility]ital [place] AN ELECTIVE 2022-04-27 16:55:00 Angely Naidu [facility] ENDOTRACHEAL AIRWAY AORTOGRAPHY, POSSIBLE 2022-04-27 16:45:00 [facility] ANGIOPLASTY Raj POTASSIUM, SYRINGE 2022-04-27 13:30:00 [facility] Raj SODIUM LEVEL, SYRINGE 2022-04-27 13:30:00 [facility] Raj HEMOGLOBIN, SYRINGE 2022-04-27 13:30:00 [facility] Raj GLUCOSE LEVEL, SYRINGE 2022-04-27 13:30:00 [facility] Raj TYPE AND SCREEN 2022-04-24 13:48:00 [facility] PART[facility] THROMBOPLASTIN 2022-04-24 13:48:00 [facility] TIME (PTT) Raj PROTHROMBIN TIME WITH INR 2022-04-24 13:48:00 [facility] BASIC METABOLIC PANEL 2022-04-24 13:48:00 [facility] Raj HC COMPLETE BLD COUNT 2022-04-24 13:48:00 [facility] W/AUTO DIFF Raj ESTIMATED GFR 2022-04-24 13:48:00 [facility] Raj CV MRA ABDOMEN PELVIS W 2022-03-28 18:09:46 [facility] WO CONTRAST Raj ESTIMATED GFR 2022-03-28 17:19:00 [facility] Raj POC PANEL 2022-03-28 17:19:00 [facility] METABOLIC PANEL 2022-03-21 16:03:00 [facility] FERRITIN LEVEL 2022-03-15 16:08:00 [facility] Raj TOTAL IRON BINDING 2022-03-15 16:08:00 [facility] CAPACITY Raj CREATININE LEVEL 2022-03-15 16:08:00 [facility] Raj BUN LEVEL 2022-03-15 16:08:00 [facility] Raj BASIC METABOLIC PANEL 2022-03-14 12:04:00 [facility] [address], [facility] ECG 12-LEAD 2022-03-08 18:11:51 [facility] spital BASIC METABOLIC PANEL 2022-03-02 12:14:00 [facility] CBC WITH PLATELET AND 2022-03-02 12:14:00 [facility] [address], [facility] DIFFERENTIAL B NATRIURETIC PEPTIDE 2022-03-02 12:14:00 [facility] US ANKLE BRACHIAL INDEX 2021-10-13 16:45:00 [facility] [address], [facility] US CAROTID DUPLEX 2021-10-13 16:00:00 [facility] BILATERAL TTE COMPLETE, W CONTRAST, 2021-10-13 13:43:40 [facility] [address], [facility] W DOPPLER ([id number]) ECG 12-LEAD 2021-09-21 20:08:11 [facility] BASIC METABOLIC PANEL 2021-09-15 13:02:00 [facility] DIGOXIN LEVEL 2021-09-15 13:02:00 [facility] [address] [facility] spital CBC WITH PLATELET AND 2021-09-15 13:02:00 [facility] DIFFERENTIAL NT-PROBNP 2021-09-15 13:02:00 [facility] BASIC METABOLIC PANEL 2021-06-22 12:02:00 [facility] B NATRIURETIC PEPTIDE 2021-06-22 12:02:00 [facility] [[facility]] Ortho - Surgery 2020-12-30 00:00:00 [facility] Sched[facility] [MMD] XRAY Chest 2 Views 2020-11-17 00:00:00 [facility] XRAY Chest 2 views [id number] 2020-11-17 00:00:00 [facility] MR Shoulder wo contrast 2020-10-07 00:00:00 [facility] [id number] Plan of Care Planned Activity Planned Date Details Comments Source Future Scheduled 2022-05-29 HEPATITIS B VACCINES [facility] Test 07:14:33 (1 of 3 - 3-dose series) [code = HEPATITIS B VACCINES (1 of 3 - 3-dose series)] Future Scheduled 2022-05-29 65+ PNEUMOCOCCAL [facility] Test 07:14:33 VACCINE (1 - PCV) [code = 65+ PNEUMOCOCCAL VACCINE (1 - PCV)] Future Scheduled 2022-05-29 DIABETIC FOOT EXAM [facility] Test 07:14:33 [code = DIABETIC FOOT EXAM] Future Scheduled 2022-05-29 SHINGLES VACCINES (1 [facility] Test 07:14:33 of 2) [code = SHINGLES VACCINES (1 of 2)] Future Scheduled 2022-05-29 COLONOSCOPY SCREENING [facility] Test 07:14:33 [code = COLONOSCOPY SCREENING] Future Scheduled 2022-05-29 Screening for [facility] Test 07:14:33 malignant neoplasm of lung (procedure) [code = 750665544] Future Scheduled 2022-05-29 INFLUENZA VACCINE [facility] Test 07:14:33 [code = INFLUENZA VACCINE] Future Scheduled 2022-05-29 DIABETES: RETINAL EYE [facility] Test 07:14:33 EXAM [code = DIABETES: RETINAL EYE EXAM] Diagnostic Test 2020-12-30 [[facility]] [facility]o [facility] Surgery [facility] Pending 00:00:00 Scheduling [code = [[facility]] Ortho - Surgery Scheduling] Diagnostic Test 2020-10-07 MR Shoulder wo [facility] 00:[facility]:00 contrast 88846 [code = 80008] Diagnostic Test 2020-10-07 MR Shoulder wo [facility] 00:00:00 contrast 40217 [code = 78250] Encounters Start End Encounter Admission Attending Care Care Encounter Source Date/Time Date/Time Type Type Clinicians Facility Department ID 2022-05-30 Preadmit nullFlavo [facility] [id number] Me moria 21:38:54 casey Steward 2022-02-24 Outpatient Guzman, Na STLMLC STLMLC [id number] 2 Common 10:00:00 [id number] [facility] 2021-10-12 Outpatient Guzman, Na STLMLC STLMLC [id number] 2 Common 14:23:13 [id number] [facility] 2021-10-12 Outpatient Guzman, Na STLMLC STLMLC [id number] 2 Common 13:26:20 [id number] [facility] 2021-10-12 Outpatient Guzman, Na STLMLC STLMLC [id number] 2 Common 13:26:05 [id number] [facility] 2021-10-12 Outpatient Guzman, Na STLMLC STLMLC [id number] 2 Common 12:49:48 [id number] [facility] 2021-10-12 Outpatient Guzman, Na STLMLC STLMLC [id number] 2 Common 12:43:40 [id number] [facility] 2021-10-12 Outpatient Guzman, Na STLMLC STLMLC [id number] 2 Common 12:18:20 [id number] [facility] 2021-10-12 Outpatient Guzman, Na STLMLC STLMLC [id number] 2 Common 11:46:50 [id number] [facility] 2021-10-12 [facility] [id number] 2 Common 11:29:53 [id number] [facility] 2021-10-12 Out[facility] Thomas[facility] [id number] 2 Common 11:29:29 [id number] [facility] 2021-10-12 Outpatient Thomas, [facility] [id number] 2 Common 11:27:56 [id number] [facility] 2021-05-11 Preadmit nullFlavo [facility] [id number] Ct moria 14:32:37 r asif Steward 2021-03-04 Outpatient MANJARREZ, [facility] [id number] [place] 09:15:15 [facility] 2021-02-20 Outpatient MANJARREZ, [facility] [id number] [place] 01:03:31 [facility] 2021-02-02 Outpatient TY, [facility] [id number] [place] 13:56:34 NICHOLETTE Heal 2021-02-02 Outpatient [facility] [id number] [place] 13:55:48 [facility] 2021-01-26 Outpatient [facility] [id number] [place] 10:48:01 [facility] 2021-01-22 Outpatient MANJARREZ, [facility] [id number] [place] 04:11:18 [facility] 2022-05-01 2022-05-01 Telephone Penpatricialorida 1.2.840.1 [id number] Methodi 00:00:00 00:00:00 , [place] [address]72.1.[address] 3.430.2.7 Hospit a .3.563583 l .8 2022-04-27 2022-04-27 Hospital [facility], 1.2.840.1 [id number] 21721 Methodi 07:22:00 18:18:00 Encounter Alba 21429.1.[address] Raj 3.430.2.7 Hospi ta .3.596382 l .8 2022-04-27 2022-04-27 Anesthesia Angely Naidu 1.2.840.1 [id number] Methodi 11:45:00 14:05:00 Event Irma Santacruz 27651.1.[address] 3.430.2.7 Hospit a .3.327517 l .8 2022-04-27 2022-04-27 Surgery [facility], 1.2.840.1 [id number] 4687 Methodi 11:00:00 13:35:00 Charudatta 47150.1.1 991 s t Raj 3.430.2.7 Hospi ta .3.666367 l .8 2022-04-27 2022-04-27 Outpatient [facility] [id number] 001 [place] 00:00:00 00:00:00 CHARUDATTA [address] 2022-04-27 2022-04-27 Travel 1.2.840.1 1.2.426.697 6896 [id number] Methodi 00:00:00 00:00:[address] 3.430.2.7 0.2.7.3.698 Ho spita .3.642489 084.8 l .8 2022-04-24 2022-04-24 Pre-Admiss [facility], 1.2.840.1 [id number] Methodi 08:10:00 09:10:00 ion Blacka 79951.1.1 741 s t Testing Raj 3.430.2.7 Hospi ta .3.244953 l .8 2022-04-24 2022-04-24 Outpatient [facility] [id number] 003 [place] 00:00:00 00:00:00 CHARUDATTA [address] 2022-04-24 2022-04-24 Travel 1.2.840.1 1.2.775.556 1318 [id number] Methodi 00:00:00 00:00:[address] 3.430.2.7 0.2.7.3.698 Ho spita .3.270777 084.8 l .8 2022-04-15 2022-04-15 [facility] 1.2.840.1 [id number] 49098 Methodi 00:00:00 00:00:[address] 3.430.2.7 Hospit a .3.236731 l .8 2022-04-11 2022-04-11 Prep for Deysi, 1.2.840.1 [id number] 21 [id number] Methodi 00:00:00 00:00:00 Surgery Melba 93087.1.[address] 3.430.2.7 Hospit a .3.056555 l .8 2022-04-10 2022-04-10 Telephone Deysi, 1.2.840.1 [id number] 2 [id number] Methodi 00:00:00 00:00:[address] 3.430.2.7 Hospit a .3.140413 l .8 2022-03-28 2022-03-28 [facility], 1.2.840.1 [id number] 2 [id number] Methodi 12:26:46 23:59:00 Encounter Kinan 84068.1.[address] Sebas 3.430.2.7 Hospit a .3.517558 l .8 2022-03-28 2022-03-28 [facility], 1.2.840.1 [id number] 2 [id number] Methodi 12:15:00 12:25:00 Encounter Kinan 49350.1.[address] Sebas 3.430.2.7 Hospit a .3.930399 l .8 2022-03-28 2022-03-28 [facility], 1.2.840.1 [id number] 65645 Methodi 11:23:57 12:14:00 Encounter Charfideltta 05411.1.[address] Raj 3.430.2.7 Hospi ta .3.182248 l .8 2022-03-28 2022-03-28 Outpatient [facility] [id number] 798 [place] 00:00:00 00:00:00 ALBA [address] 2022-03-28 2022-03-28 Outpatient NAM, [facility] [id number] [place] 00:00:00 00:00:00 ÁNGEL [address] 2022-03-28 2022-03-28 [facility] [id number] [place] 00:00:00 00:00:00 ÁNGEL [address] 2022-03-28 2022-03-28 Travel 1.2.840.1 1.2.271.624 2342 [id number] Methodi 00:00:00 00:00:[address] 3.430.2.7 0.2.7.3.698 Ho spita .3.006277 084.8 l .8 2022-03-24 2022-03-24 Telephone Bavare, 1.2.840.1 [id number] 2099 [id number] Methodi 00:00:00 00:00:00 Charudatta 75827.1.1 140 s t Raj 3.430.2.7 Hospi ta .3.410011 l .8 2022-03-22 2022-03-22 Telephone Iammarino, 1.2.840.1 [id number] 2 [id number] Methodi 00:00:00 00:00:[address] 3.430.2.7 Hospit a .3.805642 l .8 2022-03-21 2022-03-21 Telephone Iammarino, 1.2.840.1 [id number] 2 [id number] Methodi 00:00:00 00:00:[address] 3.430.2.7 Hospit a .3.964273 l .8 2022-03-17 2022-03-17 Telephone Iammarino, 1.2.840.1 [id number] 2 [id number] Methodi 00:00:00 00:00:[address] 3.430.2.7 Hospit a .3.110096 l .8 2022-03-15 2022-03-15 Office Bavare, 1.2.840.1 [id number] 4455 Methodi 09:50:00 14:07:55 Visit Charudatta 23496.1.1 676 s t Raj 3.430.2.7 Hospi ta .3.718427 l .8 2022-03-15 2022-03-15 Lab Inessa, 1.2.840.1 [id number] 0986 Methodi 11:45:00 11:50:00 Charudatta 81856.1.1 997 s t Raj 3.430.2.7 Hospi ta .3.950343 l .8 2022-03-15 2022-03-15 Outpatient [facility], [facility] [id number] 827 [place] 00:00:00 00:00:00 CHARUDATTA 676 Met [facility] 2022-03-15 2022-03-15 Outpatient [facility], [facility] [id number] 230 [place] 00:00:00 00:00:00 CHARUDATTA 997 Met [facility] 2022-03-15 2022-03-15 Travel 1.2.840.1 1.2.331.271 0909 124424 Methodi 00:00:00 00:00:[address] 3.430.2.7 0.2.7.3.698 Ho spita .3.457042 084.8 l .8 2022-03-09 2022-03-09 ambulatory STLMLC STLMLC [id number] Common 00:00:00 00:00:00 [facility] 2022-03-08 2022-03-08 Office Angelica, 1.2.840.1 [id number] 71003 70157 Methodi 13:00:00 13:44:41 Visit Imad 02537.1.[address] 3.430.2.7 Hospit a .3.521031 l .8 2022-03-08 2022-03-08 Outpatient ANGELICA, [facility] [id number] [place] 00:00:00 00:00:00 IMAD [address] 2022-03-08 2022-03-08 Telephone Deysi, 1.2.840.1 [id number] 2 [id number] Methodi 00:00:00 00:00:[address] 3.430.2.7 Hospit a .3.444220 l .8 2022-03-08 2022-03-08 Travel 1.2.840.1 1.2.467.715 3988 520370 Methodi 00:00:00 00:00:[address] 3.430.2.7 0.2.7.3.698 Ho spita .3.933356 084.8 l .8 2022-03-08 2022-03-08 Refill nAgelica, 1.2.840.1 [id number] 02285 Methodi 00:00:00 00:00:[address] 3.430.2.7 Hospit a .3.602525 l .8 2022-03-03 2022-03-03 ambulatory STLMLC STLMLC [id number] Common 00:00:00 00:00:00 [facility] 2022-02-28 2022-02-28 ambulatory STLMLC STLMLC [id number] Common 00:00:00 00:00:00 [facility] 2022-02-28 2022-02-28 ambulatory STLMLC STLMLC [id number] Common 00:00:00 00:00:00 [facility] 2022-02-25 2022-02-25 Refclementine Dominguez, 1.2.840.1 [id number] 68462 Methodi 00:00:00 00:00:[address] 3.430.2.7 Hospit a .3.499948 l .8 2022-02-03 2022-02-03 Office Suzette, 1.2.840.1 [id number] 7890 Methodi 13:30:00 13:44:02 Visit Sera Allen 72098.1.[address] 3.430.2.7 Hospit a .3.762304 l .8 2022-02-03 2022-02-03 Outpatient SUZETTE, [facility] [id number] 772 [place] 00:00:00 00:00:00 SERA [address] 2022-01-30 2022-01-30 Refill Angelica, 1.2.840.1 [id number] 40444 Methodi 00:00:00 00:00:[address] 3.430.2.7 Hospit a .3.052759 l .8 2022-01-09 2022-01-09 Refill Angelica, 1.2.840.1 [id number] 21515 89308 Methodi 00:00:00 00:00:[address] 3.430.2.7 Hospit a .3.898249 l .8 2021-12-19 2021-12-19 Telephone Darci, 1.2.840.1 [id number] 2099 [id number] Methodi 00:00:00 00:00:00 Spenceria D [address]3597.1.[address] 3.430.2.7 Hospit a .3.492061 l .8 2021-11-07 2021-11-07 Orders Penisiahida 1.2.840.1 [id number] Methodi 00:00:00 00:00:00 Only , [place] [address]94.1.[address] 3.430.2.7 Hospit a .3.765009 l .8 2021-10-31 2021-10-31 Telephone Inessa, 1.2.840.1 [id number] 2099 794604 Methodi 00:00:00 00:00:00 Charudatta 97667.1.1 047 s t Raj 3.430.2.7 Hospi ta .3.829065 l .8 2021-10-27 2021-10-27 ambulatory STLMLC STLMLC [id number] Common 00:00:00 00:00:00 [facility] 2021-09-21 2021-10-18 Office Angelica, 1.2.840.1 [id number] 50389 Methodi 14:00:00 11:36:09 Visit Imad 72854.1.[address] 3.430.2.7 Hospit a .3.421199 l .8 2021-10-14 2021-10-14 [facility], 1.2.840.1 [id number] 69158 02006 Methodi 00:00:00 00:00:00 Only Imad 52776.1.[address] 3.430.2.7 Hospit a .3.982703 l .8 2021-10-13 2021-10-13 [facility], 1.2.840.1 [id number] 2099 [id number] Methodi 07:51:25 23:59:00 Encounter Imad 94971.1.[address] 3.430.2.7 Hospit a .3.635621 l .8 2021-10-13 2021-10-13 [facility], 1.2.840.1 [id number] 2099 [id number] Methodi 07:51:13 23:59:00 Encounter Imad 65874.1.[address] 3.430.2.7 Hospit a .3.210072 l .8 2021-10-13 2021-10-13 [facility], 1.2.840.1 [id number] 2099 [id number] Methodi 06:46:08 07:50:00 Encounter Imad 89563.1.[address] 3.430.2.7 Hospit a .3.043186 l .8 2021-10-13 2021-10-13 Outpatient [facility], [facility] [id number] 0065 [place] 00:00:00 00:00:00 IMAD 935 Method i 2021-10-13 2021-10-13 Outpatient [facility] [id number] [place] [address] 00:00:00 00:00:00 IMAD 933 Method i 2021-10-13 2021-10-13 Outpatient [facility] [id number] 1782 [place] 00:00:00 00:00:00 IMAD 936 Method i 2021-10-13 2021-10-13 Travel 1.2.840.1 1.2.345.963 9275 [id number] Methodi 00:00:00 00:00:[address] 3.430.2.7 0.2.7.3.698 Ho spita .3.490058 084.8 l .8 2021-09-23 2021-09-23 Travel 1.2.840.1 1.2.515.142 1988 [id number] Methodi 00:00:00 00:00:[address] 3.430.2.7 0.2.7.3.698 Ho spita .3.620492 084.8 l .8 2021-09-21 2021-09-21 [facility] [id number] 8056 [place] 00:00:00 00:00:00 IMAD [address] 2021-09-21 2021-09-21 Travel 1.2.840.1 1.2.595.661 5781 [id number] Methodi 00:00:00 00:00:[address] 3.430.2.7 0.2.7.3.698 Ho spita .3.710435 084.8 l .8 2021-09-05 2021-09-05 Refill Angelica, 1.2.840.1 [id number] 71185 Methodi 00:00:00 00:00:[address] 3.430.2.7 Hospit a .3.571664 l .8 2021-08-30 2021-08-30 ambulatory STLMLC STLMLC [id number] Common 00:00:00 00:00:00 [facility] 2021-08-30 2021-08-30 ambulatory STLMLC STLMLC [id number] Common 00:00:00 00:00:00 [facility] 2021-08-25 2021-08-25 Refill Angelica, 1.2.840.1 [id number] 08555 58186 Methodi 00:00:00 00:00:[address] 3.430.2.7 Hospit a .3.189161 l .8 2021-08-04 2021-08-04 Orders Angelica, 1.2.840.1 [id number] 96456 51584 Methodi 00:00:00 00:00:00 Only Imad 06279.1.[address] 3.430.2.7 Hospit a .3.934318 l .8 2021-06-20 2021-06-20 Refill Iammarino, 1.2.840.1 [id number] 980 [id number] Methodi 00:00:00 00:00:[address] 3.430.2.7 Hospit a .3.190849 l .8 2021-06-20 2021-06-20 Refill Iammarino, 1.2.840.1 [id number] [id number] Methodi 00:00:00 00:00:[address] 3.430.2.7 Hospit a .3.315044 l .8 2021-06-20 2021-06-20 Orders Angelica, 1.2.840.1 [id number] Methodi 00:00:00 00:00:00 Only Imad 58510.1.[address] 3.430.2.7 Hospit a .3.506657 l .8 2021-06-06 2021-06-06 Outpatient STLMLC STLC [id number] Common 00:00:00 00:00:00 [facility] 2021-05-11 2021-05-11 Outpatient ANGELICA, [facility] [id number] [place] 00:00:00 00:00:00 IMAD [address] 2021-05-03 2021-05-03 Outpatient STLMLC STLMLC [id number] Common 00:00:00 00:00:00 [facility] 2021-04-13 2021-04-13 Outpatient ANGELICA, [facility] [id number] [place] 00:00:00 00:00:00 IMAD [address] 2021-04-13 2021-04-13 Outpatient ANGELICA, [facility] [id number] [place] 00:00:00 00:00:00 IMAD [address] 2021-04-02 2021-04-02 Outpatient STLMLC STLMLC [id number] Common 00:00:00 00:00:00 [facility] 2021-03-29 2021-03-29 Outpatient STLMLC STLMLC [id number] Common 00:00:00 00:00:00 [facility] 2021-03-24 2021-03-24 Outpatient STLMLC STLMLC [id number] Common 00:00:00 00:00:00 [facility] 2021-03-24 2021-03-24 Outpatient STLMLC STLC [id number] Common 00:00:00 00:00:00 [facility] 2021-03-24 2021-03-24 Outpatient [facility] [id number] [place] 00:00:00 00:00:[address] 2021-03-16 2021-03-21 Inpatient LAKHVA, [facility] [id number] [place] 00:00:00 00:00:00 ASMA [address] 2021-03-17 2021-03-17 EXT [facility] OP Antoni, EXT MSRDP 1.2.840.114 1 [id number] [place] 00:00:00 00:00:00 Brandt Gao LOCATION 350.1.13.58 Health 9.2.7.2.686 [id number] 0 2021-03-17 2021-03-17 EXT [facility] OP Antoni EXT MSRDP 1.2.840.114 1 [id number] [place] 00:00:00 00:00:00 Brandt Gao LOCATION 350.1.13.58 Health 9.2.7.2.686 [id number] 0 2021-03-04 2021-03-04 Office Ty, [facility] ORTHO 1.2.359.958 [id number] 13:35:44 14:05:44 Visit Nicholette SUGAR 350.1.13.58 LAND 9.2.7.2.686 [id number] 1 2021-03-04 2021-03-04 Office Ty, [facility] 1.2.337.107 [id number] [place] 13:35:44 14:05:44 Visit Veto SUGAR 350.1.13.58 Health LAND 9.2.7.2.686 [id number] 1 2021-03-02 2021-03-02 Outpatient ANGELICA [facility] [id number] [place] 00:00:00 00:00:00 IMAD [address] 2021-02-02 2021-02-02 Office Josseline [facility]THO 1.2.406.397 [id number] [id number] 13:52:06 14:20:28 Visit Salvador SUGAR 350.1.13.58 LAND 9.2.7.2.686 [id number] 1 2021-02-02 2021-02-02 Office BILLY Manjarrez ORTHO 1.2.141.209 [id number] [place] 13:52:06 14:20:28 Visit Salvador SUGAR 350.1.13.58 He [facility] LAND 9.2.7.2.686 [id number] 1 2021-01-31 2021-01-31 Outpatient SUZETTE [facility] [id number] [place] 00:00:00 00:00:00 SERA [address] 2021-01-20 2021-01-20 Outpatient JOSSELINE ANNA MHFB 7501 MHFB 12:07:00 17:40:00 SALVADOR 2021-01-20 2021[facility]01-[facility] Orthopedics [id number] [place] 13:00:00 13:00:00 t; SALVADOR MANJARREZ, - Sugar Phys Paige Weber 1 zaira Gibson 2021-01-14 2021-01-14 Outpatient STLC STLC [id number] Common 00:00:00 00:00:00 [facility] 2021-01-13 2021-01-13 Outpatient STLMLC STLMLC [id number] Common 00:00:00 00:00:00 [facility] 2021-01-03 2021-01-03 Outpatient STLMLC STLC [id number] Common 00:00:00 00:00:00 [facility] 2020-12-30 2020-12-30 Appointyamila MANJARREZ [facility] Orthopedics [id number] [place] 09:30:00 09:30:00 t; SALVADOR MANJARREZ - Sugar Phys Paige Weber 1 ans M.D. 2020-12-21 2020-12-21 [facility] [id number] Common 00:00:00 00:00:00 [facility] 2020-12-21 2020-12-21 Outpatient MANJARREZ, [facility] [id number] [place] 00:00:00 00:00:00 SALVADOR 975 Method i 2020-12-21 2020-12-21 Outpatient CONSTANTINO, [facility] [id number] [place] 00:00:00 00:00:00 NADIM 340 Method i 2020-12-21 2020-12-21 Outpatient MANJARREZ, [facility] [id number] 742 [place] 00:00:00 00:00:00 SALVADOR 274 Method i 2020-12-21 2020-12-21 Outpatient CONSTANTINO, [facility] [id number] [place] 00:00:00 00:00:00 NADIM 845 Method i 2020-10-07 2020-10-07 Appointyamila MANJARREZ [facility] Orthopedics [id number] [place] 09:30:00 09:30:00 t; SALVADOR MANJARREZ - Sugar Phys Paige Weber 1 ans M.D. 2020-09-23 2020-09-23 [facility] [id number] Common 00:00:00 00:00:00 [facility] 2020-08-04 2020-08-04 Outpatient ANGELICA, [facility] [id number] [place] 00:00:00 00:00:00 IMAD 667 Method i 2020-06-03 2020-06-03 [facility] [id number] Common 09:00:00 09:00:00 t Specialty/U Sp mari Specialty rology - [facility] /Urology Clinic [facility] 2020-05-06 2020-05-06 Outpatient BOB, [facility] [id number] [place] 00:00:00 00:00:00 JW 039 Method i 2020-04-28 2020-04-28 Outpatient ANGELICA, [facility] [id number] [place] 00:00:00 00:00:00 IMAD 297 Method i 2020-03-31 2020-03-31 Outpatient ANGELICA, [facility] [id number] [place] 00:00:00 00:00:00 IMAD 115 Method i 2020-03-31 2020-03-31 Outpatient ANGELICA, [facility] [id number] [place] 00:00:00 00:00:00 IMAD 016 Method i 2020-03-23 2020-03-23 [facility] [id number] Common 08:20:00 08:20:00 t [employer] [facility] it [facility] Records [facility] 2020-03-17 2020-03-17 Outpatient ANGELICA, [facility] [id number] [place] 00:00:00 00:00:00 IMAD 613 Method i 2020-03-17 2020-03-17 Outpatient ANGELICA, [facility] [id number] [place] 00:00:00 00:00:00 IMAD 586 Method i 2020-03-08 2020-03-08 [facility] [id number] Common 10:55:00 10:55:00 XMS [facility] it [facility] Records [facility] 2020-02-20 2020-02-20 Outpatient ANGELICA, [facility] [id number] [place] 00:00:00 00:00:00 IMAD 705 Method i 2020-02-19 2020-02-19 Outpatient ANGELICA, [facility] [id number] [place] 00:00:00 00:00:00 IMAD 578 Method i 2020-01-30 2020-01-30 Outpatient SUZETTE, [facility] [id number] [place] 00:00:00 00:00:00 SERA 769 Method i 2020-01-28 2020-01-29 Outpatient ANGELICA, [facility] [id number] [place] 00:00:00 00:00:00 IMAD 937 Method i 2019-12-03 2019-12-03 [facility] [id number] Common 11:15:00 11:15:[address] [facility] 2019-06-12 2019-06-12 [facility] [id number] Common 15:20:00 15:20:[address] [facility] 2018-12-27 2018-12-27 [facility] [id number] Common 13:00:00 13:00:[address] [facility] 2018-12-17 2018-12-17 [facility] [id number] Common 11:09:00 11:09:[address] [facility] 2018-12-01 2018-12-01 [facility] [id number] Common 21:22:00 21:22:[address] [facility] 2018-10-28 2018-10-28 [facility] [id number] Common 15:53:00 15:53:[address] [facility] 2018-09-26 2018-09-26 [facility] [id number] Common 10:45:00 10:45:[address] [facility] 2018-08-05 2018-08-05 [facility] [id number] [place] 08:30:00 08:30:[address] [facility] 2018-05-06 2018-05-06 [facility] [id number] Common 09:15:00 09:15:[address] [facility] Results Test Description Test Time Test Comments Results Result Comments Source POC glucose 2022-04-27 21:31:00 Test Item Value Reference Range Interpretation Comme nts POC glucose (test code = 91 mg/dL 65-99 Ope rator Name: Vlad Liu ID: [id number]) [id number] able: [facility] Notified RN [facility] [id number] 18:22:00 Test Item Value Reference Range Interpretation Comments Activated clotting See_Comment Video Game Programmer Name: Naidu time (test code = Liang parker ID: [id number]) [id number] [Autom ated message] The sy stem which generated this result transmitted ref erence range: 96 - 152 sec. The reference range was not used to interpr et this result as vandana l/abnormal. [facility] arterial blood gas, corrected and [id number] 18:12:00 Test Item Value Reference Range Interpretation Comments pH, arterial (test 7.35-7.45 code = 2744-1) pCO2, arterial (test See_Comment [Autom ated code = 2018-) message] The system which generated this result transmit domenico reference range : 35 - 45 mmHg. T he reference range was not used to interpret this result as normal/abnormal . pO2, arterial (test See_Comment H [Automa domenico code = 2703-7) message] The system which generated this result transmit domenico reference range : 80 - 90 mmHg. T he reference range was not used to interpret this result as normal/abnormal . Temperature, Celsius Degrees C (test code = 8310-5) O2 saturation, 95-100 arterial (test code = 2708-6) pH, arterial corrected (test code = 50302-3) pCO2, arterial mmHg corrected (test code = 45578-5) pO2, arterial Unable to mmHg Video Game Programmer ID: corrected (test code report Andrearr a = [id number]) AmandaDevice ID : [id number] Base excess, arterial See_Comment [Auto mated (test code = 1925-7) message ] The system which generated this result transmit domenico reference range : -2 - 2 mEq/L. T he reference range was not used to interpret this result as normal/abnormal . Hemoglobin, syringe 10.5 g/dL 14-18 L (test code = 718-7) Potassium, syringe See_Comment [Automat ed (test code = 2007) message] The system which generated this result transmit domenico reference range : 3.5 - 5.0 mEq/L . The reference range was not u sed to interpret th is result as normal/abnormal . Sodium, syringe (test See_Comment [Auto mated code = 2947-0) message] The system which generated this result transmit domenico reference range : 135 - 148 mEq/L . The reference range was not u sed to interpret th is result as normal/abnormal . Ionized calcium, 1.04 mmol/L 1.11-1.32 L arterial (test code = 19567-3) Glucose, syringe 70 mg/dL 65-99 (test code = 2345-7) Lactic acid, syringe 0.5 mmol/L 0.5-2.2 (test code = 62401-0) Lab Interpretation Abnormal (test code = 36628-9) [facility] [id number] 13:37:00 Test Item Value Reference Range Interpretation Comments Glucose, syringe (test code = 121 mg/dL 65-99 H 2345-7) Lab Interpretation (test code = Abnormal 16585-9) [facility]em[facility], [id number] 13:37:00 Test Item Value Reference Range Interpretation Comments Hemoglobin, syringe (test code = 12.1 g/dL 14-18 L 718-7) Lab Interpretation (test code = Abnormal 48204-4) [facility]assium, [id number] 13:37:00 Test Item Value Reference Range Interpretation Comments Potassium, syringe See_Comment [Automat ed message] The (test code = 2007) system ich generated this result tra nsmitted reference range : 3.5 - 5.0 mEq/L. The refe rence range was not used to interpret this result as normal/abnormal . [facility], [id number] 13:37:00 Test Item Value Reference Range Interpretation Comments Sodium, syringe (test See_Comment [Auto mated message] The code = 2947-0) system which generated this result tra nsmitted reference range : 135 - 148 mEq/L. The refe rence range was not used to interpret this result as normal/abnormal . [facility] [id number] 17:22:01 Test Item Value Reference Range Interpretation Comments POC creatinine (test 2.9 mg/dl 0.7-1.2 H Operato r Name: code = 21801-7) Sherif Markham diDcorneliaice ID: [id number] POC hematocrit (test 41 % 41-51 code = 4544-3) Lab Interpretation (test Abnormal code = 13896-2) [facility]inine [id number] 10:15:00 Test Item Value Reference Interpretation Comments Range Creatinine (test 3.91 mg/dL 0.7-1.18 H For patient s >49 code = 2160-0) years of age, the reference limit for Creatinine is approximately 1 3% higher for peopleidentifie d as -Ida n. EGFR Non-Afr. See_Comment L [Automated me ssage] Honduran (test code The syst em which = 8742) generated this result transmit domenico reference range : > OR = 60 mL/min/1.73m2. The reference range was not used to interpret this result as normal/abnormal . EGFR See_Comment L [Automated mes amy] [place]uran (test code The syst em which = 4003) generated this result transmit domenico reference range : > OR = 60 mL/min/1.73m2. The reference range was not used to interpret this result as normal/abnormal . RAC (test code = Performing RAC) Organization Information: Site ID: A [facility]: [facility] Address: [address] [place] [address] Director: Jake Sow Lab Interpretation Abnormal (test code = 10051-5) [facility] CenterFerritin [id number] 10:15:00 Test Item Value Reference Range Interpretation Comments Ferritin level (test 96 ng/mL 24-380 code = 2276-4) RAC (test code = RAC) Performing Organization Information: Site ID: [facility] Name: [facility] Address: [address] [place] [address] Director: Jake Sow [facility] CenterBUN [id number] 10:15:00 Test Item Value Reference Range Interpretation Comments BUN (test code = 3094-0) 59 mg/dL 7-25 H RAC (test code = RAC) Performing Organization Information: Site ID: [facility] Name: [facility] Address: [address] [place] [address] Director: Jake Sow Lab Interpretation (test Abnormal code = 99259-1) [facility] Center[facility] iron binding [id number] 10:15:00 Test Item Value Reference Range Interpretation Comments Iron level (test See_Comment [Automated code = 2498-4) message] The system which generated this result transmitted reference range : 50 - 180 mcg/dL . The reference range was not used to interpr et this result as normal/abnormal . Iron binding See_Comment H [Automated capacity (test code message] The = 2500-7) system which generated this result transmitted reference range : 250 - 425 mcg/d L (calc). The reference range was not used to interpret this result as normal/abnormal . Iron saturation See_Comment [Automated (test code = 2502-3) message ] The system which generated this result transmitted reference range : 20 - 48 % (calc ). The reference range was not used to interpr et this result as normal/abnormal . RAC (test code = Performing RAC) Organization Information: Site ID: RGA Name: [facility] Lab Address: [address] [place] [id number] Director: Jake Sow Lab Interpretation Abnormal (test code = 43103-3) [facility] 12 [id number] 03:09:41 Test Item Value Reference Range Interpretation Comments Ventricular rate (test code = 253) Atrial rate (test code = 255) OH interval (test code = 266) QRSD interval (test code = 260) QT interval (test code = 264) QTC interval (test code = 265) P axis 1 (test code = 267) QRS axis 1 (test code = 268) T wave axis (test code = 270) EKG impression (test Electronic atrial code = 273) pacemaker with prolonged AV conduction-Incomplete left bundle branch block-ST & T wave abnormality, consider lateral ischemia-Abnormal ECG-In automated comparison with ECG of 21-SEP-2021 14:08,-Electronic atrial pacemaker has replaced Sinus rhythm- [facility] natriuretic [id number] 18:20:00 Test Item Value Reference Interpretation Comments Range BNP (test code = 331 pg/mL See_Comment H [place] 85394-8) with age in the generalpopulati on with the highes t values seen inindividuals g reater than 75 years o f age.Reference: J. Am. Kelly. Cardiol. 2002; 40:976-982. [Automated mess age] The system whic h generated this result transmitted ref erence range: <=100. T he reference range was not used to int erpret this result as normal/abnormal . CLARI (test code = FASTING:YES CLARI) FASTING: YES RAC (test code = Performing RAC) Organization Information: Site ID: RGA Name: [employer] [facility] Lab Address: [address] [place] [address] Director: Jake Sow Lab Interpretation Abnormal (test code = 84002-6) [facility] CenterDigoxin [id number] 18:37:00 Test Item Value Reference Interpretation Comments Range Digoxin (test code = See_Comment L BRITTANY Ant i-Digoxin 28703-7) (Digibind(R)) i n serum/plasma of patients under toxicity therap y may interferewi th the digoxin immunoassay. [Automated message] The system which generated this result transmit domenico reference range : 0.8 - 2.0 mcg/L . The reference range was not u sed to interpret th is result as normal/abnormal . CLARI (test code = FASTING:YES CLARI) FASTING: YES RAC (test code = Performing RAC) Organization Information: Site ID: RGA Name: [employer] Lab Address: [address] [place] [address] Director: Jake Sow Lab Interpretation Abnormal (test code = 44056-3) [facility] CenterDfagrbioRE-[id number] 18:37:00 Test Item Value Reference Interpretation Comments Range NT-proBNP (test 746 pg/mL H Male Risk: Optimal code = 37424-7) < 253 pg/mL High > or = 253 pg/mL For Heart Failure ( HF) diagnosis, referenceranges in patients with dyspnea are mary ed Hilayr JL, E t al. J Am Kelly Cardiol.2018;71 :1191 -1200. 18-49 ye ars: <= 300 pg/mL No rmal, HF unlikely >= 450 pg/mL High probability of HF50-75 years: <= 300 pg/mL Vandana l, HF unlikely >= 900 pg/mL High probability of HF>75 years: <= 300 p g/mL Normal, HF unli shayy >= 1800 pg/mL H igh probability of HF For patients wi th coronary heart disease, theopt imal risk category c ut points for inci dent HFor CVD (<253 pg/mL men, <372 pg/mL women) arebased on Oml and T et al. J Am Kelly Cardiol.2007:50 :205- 14. For patient s with existing H F, the optimal riskcategory cu t point for HF progression (<3 00 pg/mL)is based on Shayy KB, et al. Clin Biochem.2010;43 :1405 -10. For additi onal information, pl ease refer tohttp://educat ion.[employer]/ faq/VMF806(This link is being provid ed for informational/e ducat ionalplashawn o nly.) CLARI (test code = FASTING:YES CLARI) FASTING: YES RAC (test code = Performing RAC) Organization Information: Site ID: EZ Name: [employer], Address: [address] [place] [id number] Director: Verenice Flowers MD,PhD,YASH Lab Interpretation Abnormal (test code = 86961-2) [facility] IkldfjjrDZQA-ReL-5 (COVID-19) RNA [Presence] in Respiratory specimen by SUMANTH with probe [id number] 02:14:28 Test Item Value Reference Range Interpretation Comments SARS-CoV-2 (COVID-19) RNA Not detected Not-Detected [Presence] in Respiratory specimen by SUMANTH with probe detection (test code = 93675-0) Whether patient is employed in a healthcare setting (test code = 66192-2) Whether the patient has symptoms related to condition of interest (test code = 14658-1) Patient was hospitalized because of this condition (test code = 94770-4) Whether the patient was admitted to intensive care unit (ICU) for condition of interest (test code = 35812-2) Whether patient resides in a congregate care setting (test code = 47351-0) IMMUNOFIXATION ELECTROPHORESIS (ANAND)2018-03-22 09:59:00 Test Item Value Reference Range Interpretation Comments IMMUNOGLOBULIN G (IGG) 944 mg/dL 540-1822 (BEAKER) (test code = 427) IMMUNOGLOBULIN A (IGA) 137 mg/dL 63-484 (BEAKER) (test code = 639) IMMUNOGLOBULIN M (IGM) 41 mg/dL 22-293 (BEAKER) (test code = 638) SERUM ANAND ID (AKER) No monoclonal (test code = 1814) proteins detected. Polyclonal distribution of immunoglobulins. [id number] Angely Santos, ([facility]) (test code = (electronic 1120) signature) PROTEIN ELECTROPHORESIS, [id number] 16:21:00 Test Item Value Reference Range Interpretation [...] in (BEAKER) (test code = expected distribution. 2610) No monoclonal bands detected. No significant change from previous study performed 12-13-17. [id number] Angely Santos MD ([facility]) (test code = (electronic signature) 6114) PROTEIN TOTAL SERUM, 6.4 gm/dL 6.0-8.3 SPEP (AKER) (test code = 8341) TSH/FREE T4 IF [id number] 09:28:00 Test Item Value Reference Range Interpretation Comments THYROID STIMULATING HORMONE 3.29 uIU/mL 0.35-4.94 (BEAKER) (test code = 772) B-TYPE NATRIURETIC FACTOR (BNP)2018-03-15 09:11:00 Test Item Value Reference Range Interpretation Comments B-TYPE NATRIURETIC PEPTIDE (BEAKER) 641 pg/mL 0-100 H (test code = 700) LIPID [id number] 09:05:00 Test Item Value Reference Range Interpretation [...] 130-159 High 160-189 Very High >=190BASIC METABOLIC [id number] 09:05:00 Test Item Value Reference Range Interpretation [...] 697) EGFR (BEAKER) (test 52 mL/min/1.73 ESTIMA DOMENICO GFR IS code = 1092) sq m NOT ACCURATE CREATININE CLEARANCE IN PREDICTING GLOMERULAR FILTRATION RATE . ESTIMATED GFR I S NOT APPLICABLE FOR DIALYSIS PATIEN TS. HEPATIC FUNCTION [id number] 09:05:00 Test Item Value Reference Range Interpretation [...] 6-55 347) CBC W/PLT COUNT & AUTO [id number] 09:02:00 Test Item Value Reference Range Interpretation [...] PERCENT (BEAKER) (test code = 2801) HEMOGLOBIN [id number] 12:30:00 Test Item Value Reference Range Interpretation Comments HEMOGLOBIN A1C (BEAKER) (test code = 6.3 % 4.3-6.1 H 368) ALKALINE [id number] 10:37:00 Test Item Value Reference Range Interpretation Comments ALKALINE PHOSPHATASE (BEAKER) (test 43 U/L 40-150 code = 346) [id number] 10:37:00 Test Item Value Reference Range Interpretation Comments POTASSIUM (BEAKER) (test code = 5.6 meq/L 3.5-5.1 H 379) [id number] 10:37:00 Test Item Value Reference Range Interpretation Comments MAGNESIUM (BEAKER) (test code = 1.9 mg/dL 1.6-2.6 627) [id number] 10:37:00 Test Item Value Reference Range Interpretation Comments SODIUM (BEAKER) (test code = 381) 137 meq/L 136-145 AST (SGOT)2017-12-21 10:37:00 Test Item Value Reference Range Interpretation Comments AST (SGOT) (BEAKER) (test code = 353) 24 U/L 5-34 ALT (SGPT)2017-12-21 10:37:00 Test Item Value Reference Range Interpretation Comments ALT (SGPT) (BEAKER) (test code = 347) 23 U/L 6-55 BILIRUBIN, ADULT [id number] 10:37:00 Test Item Value Reference Range Interpretation Comments BILIRUBIN TOTAL (BEAKER) (test code 0.3 mg/dL 0.2-1.2 = 377) BILIRUBIN, [id number] 10:37:00 Test Item Value Reference Range Interpretation Comments BILIRUBIN DIRECT (BEAKER) (test 0.2 mg/dL 0.1-0.5 code = 706) [id number] 10:37:00 Test Item Value Reference Range Interpretation Comments CHLORIDE (BEAKER) (test code = 382) 102 meq/L 98-107 CREATINE KINASE (CK)2017-12-21 10:37:00 Test Item Value Reference Range Interpretation Comments CREATINE KINASE TOTAL (BEAKER) (test 166 U/L 29-200 code = 380) LACTATE DEHYDROGENASE (LDH)2017-12-21 10:37:00 Test Item Value Reference Range Interpretation Comments LACTATE DEHYDROGENASE (BEAKER) (test 223 U/L 125-220 H code = 635) BUN AND [id number] 10:37:00 Test Item Value Reference Range Interpretation Comments BLOOD UREA NITROGEN 37 mg/dL 7-21 H (BEAKER) (test code = 354) CREATININE (BEAKER) 2.13 mg/dL 0.57-1.25 H (test code = 358) EGFR (BEAKER) (test 31 mL/min/1.73 ESTIMA DOMENICO GFR IS code = 1092) sq m [...] 1814) proteins detected. Polyclonal distribution of immunoglobulins. [id number] Angely Santos, ([facility]) (test code = (electronic 4228) signature) PROTEIN ELECTROPHORESIS, [id number] 15:31:00 Test Item Value Reference Range Interpretation [...] present (BEAKER) (test code = in expected 2612) distribution. No monoclonal bands detected. [id number] Angely Santos MD (BEAKER) (test code = (electronic signature) 9386) PROTEIN TOTAL SERUM, 6.4 gm/dL 6.0-8.3 SPEP (BEAKER) (test code = 0050) [id number] 15:30:00 Test Item Value Reference Range Interpretation Comments POTASSIUM (BEAKER) (test code = 5.4 meq/L 3.5-5.1 H 379) TSH/FREE T4 IF [id number] 12:17:00 Test Item Value Reference Range Interpretation Comments THYROID STIMULATING HORMONE 3.18 uIU/mL 0.35-4.94 (BEAKER) (test code = 772) BASIC METABOLIC [id number] 12:02:00 Test Item Value Reference Range Interpretation [...] 697) EGFR (BEAKER) (test 32 mL/min/1.73 ESTIMA DOMENICO GFR IS code = 1092) sq m NOT ACCURATE CREATININE CLEARANCE IN PREDICTING GLOMERULAR FILTRATION RATE . ESTIMATED GFR I S NOT APPLICABLE FOR DIALYSIS PATIEN TS. B-TYPE NATRIURETIC FACTOR (BNP)2017-12-13 12:00:00 Test Item Value Reference Range Interpretation Comments B-TYPE NATRIURETIC PEPTIDE (BEAKER) 387 pg/mL 0-100 H (test code = 700) CBC W/PLT COUNT & AUTO [id number] 11:36:00 Test Item Value Reference Range Interpretation [...] PERCENT (BEAKER) (test code = 2801) HEMOGLOBIN [id number] 12:52:00 Test Item Value Reference Range Interpretation Comments HEMOGLOBIN A1C (BEAKER) (test code = 7.9 % 4.3-6.1 H 368) TSH/FREE T4 IF [id number] 12:22:00 Test Item Value Reference Range Interpretation Comments THYROID STIMULATING HORMONE 2.15 uIU/mL 0.35-4.94 (BEAKER) (test code = 772) B-TYPE NATRIURETIC FACTOR (BNP)2017-09-06 11:57:00 Test Item Value Reference Range Interpretation Comments B-TYPE NATRIURETIC PEPTIDE (BEAKER) 364 pg/mL 0-100 H (test code = 700) URIC [id number] 11:55:00 Test Item Value Reference Range Interpretation Comments URIC ACID (BEAKER) (test code = 6.6 mg/dL 2.6-7.2 773) [id number] 11:55:00 Test Item Value Reference Range Interpretation Comments MAGNESIUM (BEAKER) (test code = 1.6 mg/dL 1.6-2.6 627) BASIC METABOLIC [id number] 11:55:00 Test Item Value Reference Range Interpretation [...] 697) EGFR (BEAKER) (test 40 mL/min/1.73 ESTIMA DOMENICO GFR IS code = 1092) sq m NOT ACCURATE CREATININE CLEARANCE IN PREDICTING GLOMERULAR FILTRATION RATE . ESTIMATED GFR I S NOT APPLICABLE FOR DIALYSIS PATIEN TS. LIPID [id number] 11:55:00 Test Item Value Reference Range Interpretation [...] 130-159 High 160-189 Very High >=190HEPATIC FUNCTION [id number] 11:55:00 Test Item Value Reference Range Interpretation [...] (test code = 13 U/L 6-55 347) [id number] 11:51:00 Test Item Value Reference Range Interpretation Comments PREALBUMIN (BEAKER) (test code = 29 mg/dL 14-45 586) PROTHROMBIN [id number] 11:41:00 Test Item Value Reference Range Interpretation [...] mechanical heart valves.CBC W/PLT COUNT & AUTO [id number] 11:33:00 Test Item Value Reference Range Interpretation [...] (test code = 2801) RAD, BONE DENSITY [id number] 09:58:00Reason for exam:->heart transplant evaluation. screening for osteoporosisShould this be performedat the bedside?->NoFINAL REPORT Technique: Bone mineral density of the lumbar spine and both femoral necks performed on 08/16/2017 Clinical History: Osteopenia screening. Comparison: None Bone mineral density measurementLumbar spine1.382 gm/pn5Rogx Femoral neck1.157 gm/jf7Qfecl Femoral neck1.120 gm/cm2 Standard deviation from young [...] than 2.5 standard deviations Signed: Phyllis Lange Verified Date/Time: 08/16/2017 09:58:30 Reading Location: [facility] Radiology Reading Room [id number] 12:15:00 Test Item Value Reference Range Interpretation Comments MAGNESIUM (BEAKER) (test code = 1.2 mg/dL 1.6-2.6 L 627) BASIC METABOLIC [id number] 12:15:00 Test Item Value Reference Range Interpretation [...] 697) EGFR (BEAKER) (test 46 mL/min/1.73 ESTIMA DOMENICO GFR IS code = 1092) sq m NOT ACCURATE CREATININE CLEARANCE IN PREDICTING GLOMERULAR FILTRATION RATE . ESTIMATED GFR I S NOT APPLICABLE FOR DIALYSIS PATIEN TS. B-TYPE NATRIURETIC FACTOR (BNP)2017-08-08 12:05:00 Test Item Value Reference Range Interpretation Comments B-TYPE NATRIURETIC PEPTIDE (BEAKER) 729 pg/mL 0-100 H (test code = 700) FLOW PRA CLASS I AND [id number] 11:17:00 Test Item Value Reference Range Interpretation Comments DATE OF SERUM (BEAKER) 606885 (test code = 2289) SERUM # (BEAKER) (test 407816 code = 2290) FLOW PRA CLASS I AND II See Scanned Report (test code = 2421) HLA [id number] 07:15:00 Test Item Value Reference Range Interpretation [...] 2518) HLA-DR AG2 (BEAKER) (test code = 8169) HLA-DQ AG1 (BEAKER) (test code = 5314) HLA-DQ AG2 (BEAKER) (test code = 0805) HLA-DRW (BEAKER) (test code = 2066) HERPES VIRUS ANTIBODY, [id number] 14:18:00 Test Item Value Reference Range Interpretation Comments HERPES VIRUS IGM Negative HSV 1 IGM = NEGHSV 2 (BEAKER) (test code = IGM = NEG 1808) TOXOPLASMA GONDII ANTIBODY, [id number] 14:18:00 Test Item Value Reference Range Interpretation Comments TOXOPLASMA IGM ANTIBODY (BEAKER) Negative (test code = 742) PROTEIN ELECTROPHORESIS, [id number] 09:23:00 Test Item Value Reference Range Interpretation [...] of all clinical and laboratory data available. [facility] Test perform ed T-119 (BEAKER) and interpret ed (test code = by [facility] an 6478) [place] Labs. PROTEIN TOTAL 6.7 gm/dL 6.0-8.5 RR: 6.1-8.1 g/ dL SERUM, SPEP (BEAKER) (test code = 8690) URINE PROTEIN ELECTROPHORESIS, [id number] 08:49:00 Test Item Value Reference Range Interpretation Comments PROTEIN, URINE 12 mg/dL 0-14 (BEAKER) (test code = 1569) ALBUMIN URINE ELP 33.0 % (BEAKER) (test code = 1018) GAMMA GLOBULIN 67.0 % URINE (BEAKER) (test code = 1015) UPEP, ID-438 Pattern consistent (BEAKER) (test with mixed code = 2601) glomerular and tubular proteinuria. [facility]- Test perfo rmed and 438 (BEAKER) interpreted by (test code = [employer] [place] 2602) [place] L abs. POCT-GLUCOSE [id number] 17:07:00 Test Item Value Reference Range Interpretation Comments POC-GLUCOSE METER 283 mg/dL 70-110 H TESTED AT [facility] 6720 (BEAKER) (test code = [place] 1538) [address] POCT-GLUCOSE [id number] 12:48:00 Test Item Value Reference Range Interpretation Comments POC-GLUCOSE METER 148 mg/dL 70-110 H TESTED AT [facility] 6720 (BEAKER) (test code = [place] 1538) [address] POCT-GLUCOSE [id number] 07:37:00 Test Item Value Reference Range Interpretation Comments POC-GLUCOSE METER 154 mg/dL 70-110 H TESTED AT [facility] 6720 (BEAKER) (test code = [place] 1538) [address] [id number] 07:11:00 Test Item Value Reference Range Interpretation Comments MAGNESIUM (BEAKER) (test code = 1.5 mg/dL 1.6-2.6 L 627) BASIC METABOLIC [id number] 07:11:00 Test Item Value Reference Range Interpretation [...] 697) EGFR (BEAKER) (test 65 mL/min/1.73 ESTIMA DOMENICO GFR IS code = 1092) sq m [...] 0-0 (BEAKER) (test code = 413) POCT-GLUCOSE [id number] 21:29:00 Test Item Value Reference Range Interpretation Comments POC-GLUCOSE METER 142 mg/dL 70-110 H TESTED AT [facility] 67 ([facility]) (test code = [place] 1538) [address] POCT-GLUCOSE [id number] 17:29:00 Test Item Value Reference Range Interpretation Comments POC-GLUCOSE METER 258 mg/dL 70-110 H TESTED AT [facility] 6720 ([facility]) (test code = [place] 1538) [address] TOXOPLASMA GONDII ANTIBODY, [id number] 15:37:00 Test Item Value Reference Range Interpretation Comments TOXOPLASMA GONDII IGG ([facility]) (test Negative code = 419) POCT-GLUCOSE [id number] 11:56:00 Test Item Value Reference Range Interpretation Comments POC-GLUCOSE METER 190 mg/dL 70-110 H TESTED AT [place] [address] ([facility]) (test code = DOUGLAS Peña [place] 1538) [address] CREATININE [id number] 09:09:00 Test Item Value Reference Range Interpretation Comments CREATININE CLEARANCE 56.5 mL/min 70.0-140.0 L (AKER) (test code = 357) VOLUME, TOTAL (AKER) 2500 ml (test code = 1457) CREATININE URINE 46.2 mg/dL (AKER) (test code = 375) [id number] Angely Santos MD ([facility]) (test code = (electronic signature) 0349) POCT-GLUCOSE [id number] 07:57:00 Test Item Value Reference Range Interpretation Comments POC-GLUCOSE METER 165 mg/dL 70-110 H TESTED AT [place] [address] ([facility]) (test code = [facility] [place] 1538) [address] CBC (HEMOGRAM ONLY)2017-07-19 07:06:00 Test Item Value [...] WBC 0-0 (BEAKER) (test code = 413) [id number] 04:55:00 Test Item Value Reference Range Interpretation Comments MAGNESIUM (BEAKER) (test code = 1.6 mg/dL 1.6-2.6 627) BASIC METABOLIC [id number] 04:55:00 Test Item Value Reference Range Interpretation [...] 697) EGFR (BEAKER) (test 53 mL/min/1.73 ESTIMA DOMENICO GFR IS code = 1092) sq m NOT ACCURATE CREATININE CLEARANCE IN PREDICTING GLOMERULAR FILTRATION RATE . ESTIMATED GFR I S NOT APPLICABLE FOR DIALYSIS PATIEN TS. POCT-GLUCOSE [id number] 21:35:00 Test Item Value Reference Range Interpretation Comments POC-GLUCOSE METER 138 mg/dL 70-110 H TESTED AT [facility] 6720 [facility] (test code = DOUGLAS Peña [place] 1538) [address] POCT-GLUCOSE [id number] 17:20:00 Test Item Value Reference Range Interpretation Comments POC-GLUCOSE METER 108 mg/dL 70-110 TESTED AT [facility] 6720 ([facility] (test code = [facility] Casey [place] 1538) [address] VARICELLA ZOSTER ANTIBODY, [id number] 15:46:00 Test Item Value Reference Range Interpretation Comments VARICELLA ZOSTER IGG (AL) (BEAKER) > Al (test code = 3197) VARICELLA ZOSTER RESULT INTERPRETATIONS: <=0.8 Al Nonreactive: Presumed non- immune to VZV 0.9-1.0Al Equivocal >=1.1 Al Reactive: Presumed immune to VZV HERPES VIRUS ANTIBODY, [id number] 15:45:00 Test Item Value Reference Range Interpretation Comments HERPES VIRUS IGG Negative HSV 1 IGG = NEGHSV 2 ([facility]) (test code = IGG = NEG 1807) CYTOMEGALOVIRUS ANTIBODY, [id number] 15:45:00 Test Item Value Reference Range Interpretation Comments CYTOMEGALOVIRUS IGG ANTIBODY Positive (BEAKER) (test code = 790) CYTOMEGALOVIRUS ANTIBODY, [id number] 15:45:00 Test Item Value Reference Range Interpretation Comments CYTOMEGALOVIRUS IGM ANTIBODY Negative (BEAKER) (test code = 816) EBV-VCA ANTIBODY, [id number] 15:45:00 Test Item Value Reference Range Interpretation Comments SARY-NGUYEN VCA IGG ([facility] (test Positive code = 983) EBV-VCA ANTIBODY, [id number] 15:45:00 Test Item Value Reference Range Interpretation Comments SARY-NGUYEN VCA IGM (BEAKER) (test Negative code = 984) ANTI-NUCLEAR ANTIBODY (JOCELYNN)2017-07-18 11:50:00 Test Item Value Reference Range Interpretation Comments ANTI-NUCLEAR ANTIBODY (JOCELYNN) (BEAKER) Negative Negative (test code = 418) POCT-GLUCOSE [id number] 11:47:00 Test Item Value Reference Range Interpretation Comments POC-GLUCOSE METER 179 mg/dL 70-110 H TESTED AT [place] [address] ([facility]) (test code = [place] 1538) [address] [id number] 10:39:00 Test Item Value Reference Range Interpretation Comments RPR SCREEN ([facility]) (test code = Nonreactive Nonreactive 420) POCT-GLUCOSE [id number] 07:35:00 Test Item Value Reference Range Interpretation Comments POC-GLUCOSE METER 167 mg/dL 70-110 H TESTED AT [place] [address] ([facility]) (test code = [place] 1538) [address] [id number] 07:35:00 Test Item Value Reference Range Interpretation Comments PHOSPHORUS (BEAKER) (test code = 2.9 mg/dL 2.3-4.7 604) [id number] 07:35:00 Test Item Value Reference Range Interpretation Comments MAGNESIUM (BEAKER) (test code = 1.8 mg/dL 1.6-2.6 627) BASIC METABOLIC [id number] 07:35:00 Test Item Value Reference Range Interpretation [...] 697) EGFR (BEAKER) (test 44 mL/min/1.73 ESTIMA DOMENICO GFR IS code = 1092) sq m NOT ACCURATE CREATININE CLEARANCE IN PREDICTING GLOMERULAR FILTRATION RATE . ESTIMATED GFR I S NOT APPLICABLE FOR DIALYSIS PATIEN TS. PTH, [id number] 07:24:00 Test Item Value Reference Range Interpretation [...] code = 413) HEPATITIS B CORE ANTIBODY, [id number] 22:00:00 Test Item Value Reference Range Interpretation Comments HEPATITIS B CORE TOTAL ANTIBODY Nonreactive Nonreactive (BEAKER) (test code = 497) HEPATITIS PANEL, [id number] 22:00:00 Test Item Value Reference Range Interpretation Comments HEPATITIS A IGM ANTIBODY (BEAKER) Nonreactive Nonreactive (test code = 498) HEPATITIS B CORE IGM ANTIBODY Nonreactive Nonreactive (BEAKER) (test code = 645) HEPATITIS C ANTIBODY (BEAKER) Nonreactive Nonreactive (test code = 367) HEPATITIS B SURFACE ANTIGEN (2) Nonreactive Nonreactive (BEAKER) (test code = 2585) HIV-1 ANTIGEN WITH HIV-1/2 [id number] 22:00:00 Test Item Value Reference Range Interpretation Comments HIV-1 ANTIGEN WITH HIV 1\\T\\2 Nonreactive Nonreactive ANTIBODY (2) (BEAKER) (test code = 2586) HEPATITIS A ANTIBODY, [id number] 22:00:00 Test Item Value Reference Range Interpretation Comments HEPATITIS A IGG ANTIBODY (BEAKER) Nonreactive Nonreactive (test code = 2797) CREATININE, RANDOM [id number] 21:37:00 Test Item Value Reference Range Interpretation Comments CREATININE URINE (BEAKER) (test 150.2 mg/dL code = 375) Reference Range: No NormalsPROTEIN, RANDOM [id number] 21:37:00 Test Item Value Reference Range Interpretation Comments PROTEIN, URINE (BEAKER) (test code = 12 mg/dL 0-14 1569) [id number] 21:15:00 Test Item Value Reference Range Interpretation Comments PROSTATE SPECIFIC ANTIGEN (BEAKER) 1.0 ng/mL 0.0-4.0 (test code = 844) POCT-GLUCOSE [id number] 20:53:00 Test Item Value Reference Range Interpretation Comments POC-GLUCOSE METER 182 mg/dL 70-110 H TESTED AT [facility] 6720 (BEAKER) (test code = [place] 1538) [address] T4, [id number] 20:33:00 Test Item Value Reference Range Interpretation Comments FREE T4 (BEAKER) (test code = 655) 1.27 ng/dL 0.70-1.48 [id number] 20:33:00 Test Item Value Reference Range Interpretation Comments FERRITIN (BEAKER) (test code = 361) 75 ng/mL 5-275 VITAMIN D, [id number] 20:32:00 Test Item Value Reference Range Interpretation Comments VITAMIN D 25-OH (BEAKER) (test 24.7 ng/mL 6.6-49.9 code = 2764) Effective 06/27/2017: Reference Range ChangeNew: 6.6-49.9 ng/mL Previous: 13.0- 47.8 ng/mLRecommendedVitamin D Target Range: 30.0-40.0 ng/mLTRANSFERRIN 2017-07-17 20:20:00 Test Item Value Reference Range Interpretation Comments TRANSFERRIN (BEAKER) (test code = 418 mg/dL 174-382 H 541) [id number] 20:17:00 Test Item Value Reference Range Interpretation Comments PREALBUMIN (BEAKER) (test code = 27 mg/dL 14-45 586) IRON, [id number] 20:17:00 Test Item Value Reference Range Interpretation Comments IRON (BEAKER) (test code = 547) 102 ug/dL 40-160 URIC [id number] 20:16:00 Test Item Value Reference Range Interpretation Comments URIC ACID (BEAKER) (test code = 8.3 mg/dL 2.6-7.2 H 773) [id number] 20:16:00 Test Item Value Reference Range Interpretation Comments PHOSPHORUS (BEAKER) (test code = 3.5 mg/dL 2.3-4.7 604) HEPATIC FUNCTION [id number] 20:16:00 Test Item Value Reference Range Interpretation [...] (test code = 17 U/L 6-55 347) [id number] 20:16:00 Test Item Value Reference Range Interpretation Comments AMYLASE (BEAKER) (test code = 349) 72 U/L 25-125 [id number] 20:16:00 Test Item Value Reference Range Interpretation Comments CREATININE (BEAKER) 1.75 mg/dL 0.57-1.25 H (test code = 358) EGFR (BEAKER) (test 39 mL/min/1.73 ESTIMA DOMENICO GFR IS code = 1092) sq m [...] 222 U/L 125-220 H code = 635) [id number] 20:16:00 Test Item Value Reference Range Interpretation Comments LIPASE (BEAKER) (test code = 749) 43 U/L 8-78 RETICULOCYTE [id number] 19:56:00 Test Item Value Reference Range Interpretation Comments RETICULOCYTE COUNT PCT (BEAKER) (test 1.6 % 0.5-1.8 code = 575) CT, CHEST, WITHOUT [id number] 18:13:00FINAL REPORT CT of the Chest and [...] Garrett Verified Date/Time: 07/17/2017 18:13:06 Reading Location: [address] Body Reading Room CT, ABDOMEN, WITHOUT [id number] 18:13:00FINAL REPORT CT of the Chest and [...] Garrett Verified Date/Time: 07/17/2017 18:13:06 Reading Location: [facility] C013Y CT Body Reading Room CT, BRAIN, WITHOUT [id number] 17:55:00FINAL REPORT CT Head without contrast CLINICAL [...] Elizabeth Verified Date/Time: 07/17/2017 17:55:05 Reading Location: [facility] [place] Reading Room POCT-GLUCOSE [id number] 14:27:00 Test Item Value Reference Range Interpretation Comments POC-GLUCOSE METER 121 mg/dL 70-110 H TESTED AT [place] [address] ([facility] (test code = [facility] 1538) [address] POCT-GLUCOSE [id number] 07:28:00 Test Item Value Reference Range Interpretation Comments POC-GLUCOSE METER 158 mg/dL 70-110 H TESTED AT [place] [address] ([facility]) (test code = [facility] 1538) [address] [id number] 04:57:00 Test Item Value Reference Range Interpretation Comments MAGNESIUM (BEAKER) (test code = 1.6 mg/dL 1.6-2.6 627) BASIC METABOLIC [id number] 04:57:00 Test Item Value Reference Range Interpretation [...] 697) EGFR (BEAKER) (test 42 mL/min/1.73 ESTIMA DOMENICO GFR IS code = 1092) sq m [...] 0-0 (BEAKER) (test code = 413) POCT-GLUCOSE [id number] 21:00:00 Test Item Value Reference Range Interpretation Comments POC-GLUCOSE METER 160 mg/dL 70-110 H TESTED AT [facility] 6720 ([facility] (test code = [place] 1538) [address] POCT-GLUCOSE [id number] 17:10:00 Test Item Value Reference Range Interpretation Comments POC-GLUCOSE METER 148 mg/dL 70-110 H TESTED AT [facility] 6720 (BEAKER) (test code = DOUGLAS Peña [place] 1538) [address] POCT-GLUCOSE [id number] 12:10:00 Test Item Value Reference Range Interpretation Comments POC-GLUCOSE METER 246 mg/dL 70-110 H TESTED AT [facility] 6720 (BEAKER) (test code = DOUGLAS Peña [place] 1538) [address] POCT-GLUCOSE [id number] 08:32:00 Test Item Value Reference Range Interpretation Comments POC-GLUCOSE METER 186 mg/dL 70-110 H TESTED AT [facility] 6720 (BEAKER) (test code = DOUGLAS Peña [facility] 1538) [address] [id number] 06:35:00 Test Item Value Reference Range Interpretation Comments MAGNESIUM (BEAKER) (test code = 1.7 mg/dL 1.6-2.6 627) BASIC METABOLIC [id number] 06:35:00 Test Item Value Reference Range Interpretation [...] 697) EGFR (BEAKER) (test 44 mL/min/1.73 ESTIMA DOMENICO GFR IS code = 1092) sq m [...] 0-0 (BEAKER) (test code = 413) POCT-GLUCOSE [id number] 20:53:00 Test Item Value Reference Range Interpretation Comments POC-GLUCOSE METER 228 mg/dL 70-110 H TESTED AT [place] [address] ([facility]) (test code = [facility] [place] [facility] 1538) [address] POCT-GLUCOSE [id number] 17:06:00 Test Item Value Reference Range Interpretation Comments POC-GLUCOSE METER 194 mg/dL 70-110 H TESTED AT [place] [address] ([facility]) (test code = [facility] 1538) [address] POCT-GLUCOSE [id number] 13:27:00 Test Item Value Reference Range Interpretation Comments POC-GLUCOSE METER 272 mg/dL 70-110 H TESTED AT [place] [address] ([facility]) (test code = [facility] 1538) [address] POCT-GLUCOSE [id number] 09:14:00 Test Item Value Reference Range Interpretation Comments POC-GLUCOSE METER 172 mg/dL 70-110 H TESTED AT [place] [address] ([facility]) (test code = [facility] 1538) [address] [id number] 07:37:00 Test Item Value Reference Range Interpretation Comments MAGNESIUM (BEAKER) (test code = 2.2 mg/dL 1.6-2.6 627) BASIC METABOLIC [id number] 07:37:00 Test Item Value Reference Range Interpretation [...] 697) EGFR (BEAKER) (test 52 mL/min/1.73 ESTIMA DOMENICO GFR IS code = 1092) sq m [...] RED CELL DISTRIBUTION WIDTH 12.6 % 11.6-14.4 (AKER) (test code = 412) PLATELET COUNT (BEAKER) (test 188 K/CU MM 150-450 code = 756) MEAN PLATELET VOLUME (BEAKER) 10.0 fL 9.4-12.4 (test code = 754) NUCLEATED RED BLOOD CELLS 0 /100 WBC 0-0 ([facility]) (test code = 413) POCT-GLUCOSE [id number] 21:21:00 Test Item Value Reference Range Interpretation Comments POC-GLUCOSE METER 315 mg/dL 70-110 H TESTED AT [place] [address] ([facility]) (test code = DOUGLAS Peña [facility] 1538) [address] POCT-GLUCOSE [id number] 17:03:00 Test Item Value Reference Range Interpretation Comments POC-GLUCOSE METER 171 mg/dL 70-110 H TESTED AT [place] [address] ([facility]) [facility] 1538) [address] POCT-GLUCOSE [id number] 12:23:00 Test Item Value Reference Range Interpretation Comments POC-GLUCOSE METER 204 mg/dL 70-110 H TESTED AT [place] [address] ([facility]) (test code = [facility] [place] [facility] 1538) [address] POCT-GLUCOSE [id number] 08:21:00 Test Item Value Reference Range Interpretation Comments POC-GLUCOSE METER 141 mg/dL 70-110 H TESTED AT [place] [address] ([facility]) ([facility] 1538) [address] CBC (HEMOGRAM ONLY)2017-07-14 06:15:00 Test Item Value [...] WBC 0-0 (BEAKER) (test code = 413) [id number] 03:28:00 Test Item Value Reference Range Interpretation Comments MAGNESIUM (BEAKER) (test code = 1.5 mg/dL 1.6-2.6 L 627) LIPID [id number] 03:28:00 Test Item Value Reference Range Interpretation [...] 130-159 High 160-189 Very High >=190BASIC METABOLIC [id number] 03:28:00 Test Item Value Reference Range Interpretation [...] 358) GLUCOSE RANDOM 172 mg/dL 70-105 H (AKER) (test code = 652) CALCIUM (BEAKER) 8.6 mg/dL 8.4-10.2 (test code = 697) EGFR (BEAKER) (test 41 mL/min/1.73 ESTIMA DOMENICO GFR IS code = 1092) sq m NOT ACCURATE CREATININE CLEARANCE IN PREDICTING GLOMERULAR FILTRATION RATE . ESTIMATED GFR I S NOT APPLICABLE FOR DIALYSIS PATIEN TS. [id number] 02:36:00 Test Item Value Reference Range Interpretation Comments PARTIAL THROMBOPLASTIN TIME 25.9 seconds 22.5-36.0 (AKER) (test code = 760) POCT-GLUCOSE [id number] 22:55:00 Test Item Value Reference Range Interpretation Comments POC-GLUCOSE METER 206 mg/dL 70-110 H TESTED AT [facility] 6720 ([facility]) (test code = [place] 1538) [address] [id number] 18:22:00 Test Item Value Reference Range Interpretation Comments PARTIAL THROMBOPLASTIN TIME 41.6 seconds 22.5-36.0 H (AKER) (test code = 760) CREATINE KINASE (CK), TOTAL AND [id number] 12:57:00 Test Item Value Reference Range Interpretation Comments CREATINE KINASE TOTAL (BEAKER) 142 U/L 29-200 (test code = 380) CREATINE KINASE-MB (AKER) (test 5.3 ng/mL 0.0-6.6 code = 750) CREATINE KINASE-MB INDEX ([facility]) 3.7 % (test code = 395) CK-MB Reference Range:<6.7 Normal6.7-10.0 Borderline>10.0 AbnormalTROPONIN [id number] 12:55:00 Test Item Value Reference Range Interpretation Comments TROPONIN I (BEAKER) (test code = 0.11 ng/mL 0.00-0.03 H [...] acidosis, acute neurological disease, and persistent tachyarrhythmia.POCT-GLUCOSE [id number] 11:57:00 Test Item Value Reference Range Interpretation Comments POC-GLUCOSE METER 105 mg/dL 70-110 TESTED AT [facility] 6720 ([facility]) (test code = [place] 1538) [address] HEMOGLOBIN [id number] 10:45:00 Test Item Value Reference Range Interpretation Comments HEMOGLOBIN A1C (JOLEEN) (test code = 7.1 % 4.3-6.1 H 368) TSH/FREE T4 IF [id number] 09:41:00 Test Item Value Reference Range Interpretation Comments THYROID STIMULATING HORMONE 1.16 uIU/mL 0.35-4.94 (JOLEEN) (test code = 772) U/S, RENAL, [id number] 09:15:00Reason for exam:->AKIFINAL REPORT Ultrasound of the [...] ultrasound of the bilateral kidneys. Signed: Andrés Trejor[facility]en [facility] Verified Date/Time: 07/13/2017 09:15:34 Reading Location: [address] Ultrasound Reading Room APTT 2017-07-13 08:56:00 Test Item Value Reference Range Interpretation Comments PARTIAL THROMBOPLASTIN TIME 27.7 seconds 22.5-36.0 ([facility] (test code = 760) Prior to initiating heparinPLATELET [id number] 08:51:00 Test Item Value Reference Range Interpretation Comments PLATELET COUNT (BEAKER) (test 183 K/CU MM 150-450 code = 756) URINALYSIS W/ [id number] 08:45:00 Test Item Value Reference Range Interpretation [...] code = 516) SOURCE(BEAKER) (test code = 8257) POCT-GLUCOSE [id number] 07:58:00 Test Item Value Reference Range Interpretation Comments POC-GLUCOSE METER 186 mg/dL 70-110 H TESTED AT [facility] 6720 (BEAKER) (test code = DOUGLAS Peña [facility] 1538) [address] RAPID DRUG SCREEN, [id number] 07:31:00 Test Item Value Reference Range Interpretation [...] situations. Chain of custody not maintained. Some mbgj-tui-kmsunom medications, as well as adulterants, may cause inaccurate results. Clinical correlation should be applied. [place] comprehensive drug screen or confirmation of a detected drug may be performed upon request.CREATININE, RANDOM [id number] 07:25:00 Test Item Value Reference Range Interpretation Comments CREATININE URINE (BEAKER) (test 39.7 mg/dL code = 375) Reference Range: No NormalsSODIUM, RANDOM [id number] 07:25:00 Test Item Value Reference Range Interpretation Comments SODIUM URINE (BEAKER) (test code = 95 meq/L 243) Reference Range: No NormalsCREATINE KINASE (CK), TOTAL AND [id number] 07:05:00 Test Item Value Reference Range Interpretation Comments CREATINE KINASE TOTAL (BEAKER) 101 U/L 29-200 (test code = 380) CREATINE KINASE-MB (BEAKER) (test 3.8 ng/mL 0.0-6.6 code = 750) CREATINE KINASE-MB INDEX (BEAKER) 3.8 % (test code = 395) CK-MB Reference Range:<6.7 Normal6.7-10.0 Borderline>10.0 AbnormalTROPONIN [id number] 07:05:00 Test Item Value Reference Range Interpretation [...] and persistent tachyarrhythmia.RAD, CHEST, 1 VIEW, NON [id number] 01:09:00Reason for exam:->SHORTNESS OF BREATHShould this be [...] secondary to technical issues (EPIC downtime). Signed: [facility] Verified Date/Time: 07/13/2017 01:09:11 Reading Location: [address] Reading Room CREATINE KINASE (CK), TOTAL AND [id number] 00:42:00 Test Item Value Reference Range Interpretation Comments CREATINE KINASE TOTAL (BEAKER) 66 U/L 29-200 (test code = 380) CREATINE KINASE-MB (BEAKER) (test 2.1 ng/mL 0.0-6.6 code = 750) CREATINE KINASE-MB INDEX (BEAKER) 3.2 % (test code = 395) CK-MB Reference Range:<6.7 Normal6.7-10.0 Borderline>10.0 AbnormalTROPONIN [id number] 00:42:00 Test Item Value Reference Range Interpretation [...] acute neurological disease, and persistent tachyarrhythmia.BASIC METABOLIC [id number] 00:40:00 Test Item Value Reference Range Interpretation [...] 697) EGFR (BEAKER) (test 38 mL/min/1.73 ESTIMA DOMENICO GFR IS code = 1092) sq m NOT ACCURATE CREATININE CLEARANCE IN PREDICTING GLOMERULAR FILTRATION RATE . ESTIMATED GFR I S NOT APPLICABLE FOR DIALYSIS PATIEN TS. B-TYPE NATRIURETIC FACTOR (BNP)2017-07-13 00:39:00 Test Item Value Reference Range Interpretation Comments B-TYPE NATRIURETIC PEPTIDE (BEAKER) 890 pg/mL 0-100 H (test code = 700) CBC W/PLT COUNT & AUTO [id number] 00:16:00 Test Item Value Reference Range Interpretation [...]
[2022-05-30] MEDS ORDERED: FUROSEMIDE 100 MG/10 ML VIAL IV ONE ×2 (21:48→21:50)
[2022-05-30 22:09] LABS: Arterial Blood Carboxyhemoglob 0.5 % (0-1.5); Blood Gas Oxyhemoglobin 96.8 % (94-97); Blood O2 Saturation 98.7 % (92-98.5)
--- NOTE | 2022-05-30 22:15 | RAD REPORT ---
EXAM DESCRIPTION: RAD - Chest Single View - 05/30/2022 9:54 pm CLINICAL HISTORY: DYSPNEA Chest pain. COMPARISON: Chest Single View dated 04/20/2022; Chest Single View dated 03/18/2022; Chest Pa And Lat (2 Views) dated 12/09/2021; Chest Pa And Lat (2 Views) dated 03/25/2018 FINDINGS: Portable technique limits examination quality. Moderate bilateral pulmonary opacities are present, greater on the right. This may represent asymmetr ic pulmonary edema or pneumonia. The heart is mildly enlarged in size. Dual lead pacer/ defibrillator . Sternotomy wires noted. IMPRESSION: Moderate bilateral pulmonary opacities, greater on the right. The findings may indicate CHF versus pneumonia.
[2022-05-30 22:44] LABS: Absolute Lymphocytes (CBC) 5.2 K/uL (0.7-4.9); Hematocrit 42.7 % (39.6-49.0); Lymphocytes % 38.9 % (15.3-44.8); MCV 89.9 fL (80-100); MPV 8.2 fL (7.6-11.3); RBC Red Blood Cell Count 4.75 M/uL (4.33-5.43)
[2022-05-30 23:10] LABS: Arterial Blood Carboxyhemoglob 0.7 % (0-1.5); Blood Gas Oxyhemoglobin 97.3 % (94-97); Blood O2 Saturation 99.4 % (92-98.5)
--- NOTE | 2022-05-30 23:12 | ER ---
Nurse's Notes [facility] Name: Han Hyde Age: 72 yrs Sex: Male : 1950 Arrival Date: 05/30/2022 Time: 21:38 Bed 24 Private MD: Diagnosis: Heart failure, unspecified;Shortness of breath;Respiratory failure, unspecified with hypoxia-50% on home CPAP Presentation: 05/30 21:43 Chief complaint: EMS states: called out for difficulty breathing, on scene pt was on as6 personal CPAP with O2 in the 50's. on arrival to ER pt is on CPAP, labored breathing, O2 83%. Coronavirus screen: Client presents with at least one sign or symptom that may indicate coronavirus-19. Ebola Screen: No symptoms or risks identified at this time. Risk Assessment: Do you want to hurt yourself or someone else? Patient reports no desire to harm self or others. 21:43 Method Of Arrival: EMS: [facility] as6 21:43 Acuity: RAUL 2 as6 21:45 Initial Sepsis Screen: Does the patient have a suspected source of infection? No. eh3 Patient's initial sepsis screen is negative. Onset of symptoms was May 30, 2022. 22:31 Initial Sepsis Screen: Does the patient meet any 2 criteria?. Care prior to arrival: aa9 Medication(s) given: 125 mg IM Solu-Medrol. Triage Assessment: 21:51 General: Appears ill, Behavior is unresponsive. Respiratory: Respiratory effort is aa9 labored, Patient placed CPAP:. 21:51 Cardiovascular:. Derm: Skin is thin, with poor turgor Skin temperature is cold. aa9 21:51 Neuro: Level of Consciousness is lethargic, Oriented to none. aa9 Historical: - Allergies: 22:43 Demerol; aa9 22:43 Xarelto; aa9 22:43 Lisinopril; aa9 - Home Meds: 22:43 Eliquis 5 mg oral tab 1 tab 2 times per day [Active]; Entresto 49-51 mg oral tab 1 tab aa9 2 times per day [Active]; Lokelma 5 gram oral pwpk 1 packet once daily [Active]; amiodarone 200 mg Oral tab 1 tab once daily [Active]; carvedilol 12.5 mg oral tab 1 tab 2 times per day [Active]; fenofibrate 145mg oral 1 cap once daily [Active]; rosuvastatin 40 mg oral cpSP 1 cap once daily [Active]; magnesium oxide 400 mg (241.3 mg magnesium) Oral tab 400 mg twice a day [Active]; digoxin 125 mcg (0.125 mg) Oral tab 1 tab once daily [Active]; furosemide 40 mg Oral tab 1 tab once daily [Active]; aspirin 81 mg Oral cap 1 cap once daily [Active]; tresiba 200 unit pen 60 units morning [Active]; trulicity 3.0 once weekly [Active]; Novolog U-100 Insulin aspart 100 unit/mL Sub-Q soln before meals [Active]; - PMHx: 22:43 Hypertensive disorder; Diabetes mellitus; aa9 - PSHx: 22:43 triple bypass; heart stent; pacemaker right side; R shoulder replacement; aa9 - Immunization history:: Client reports receiving the 2nd dose of the Covid vaccine, moderna. - Social history:: Smoking status: unknown. Screenin:30 Abuse screen: Denies threats or abuse. Denies injuries from another. Nutritional aa9 screening: No deficits noted. Tuberculosis screening: No symptoms or risk factors identified. Fall Risk None identified. Assessment: 21:51 General: Appears distressed. Respiratory: Respiratory effort is labored. as6 21:51 General: Behavior is unresponsive. aa9 21:51 Pain: Unable to use pain scale. Patient is disoriented. aa9 22:34 General:. Neuro: Level of Consciousness is awake, obeys commands, Oriented to person, eh3 place, situation. Cardiovascular: Capillary refill is > 3 seconds in bilateral toes Patient's skin is warm and dry. 05/31 03:25 General: notified Carlo Mishra, [facility]. Pain: Complains of pain in head. aa9 03:27 General: Pt requested CPAP to be taken off, notified Carlo Mishra, orders changed to aa9 NC\T\2L . 04:36 Reassessment: Patient and/or family updated on plan of care and expected duration. Pain aa9 level reassessed. Patient is alert, oriented x 3, equal unlabored respirations, skin warm/dry/pink. Vital Signs: 05/30 21:36 BP 159 / 132; Pulse 77; Resp 36; Pulse Ox 100% on BiPAP; eh3 21:45 BP 179 / 84; Pulse 81; Pulse Ox 100% on BiPAP; eh3 22:00 BP 161 / 79; Pulse 73; Resp 31; Pulse Ox 100% on BiPAP; eh3 22:15 BP 128 / 65; Pulse 67; Resp 32; Pulse Ox 100% on BiPAP; eh3 22:30 BP 123 / 65; Pulse 65; Resp 30; Pulse Ox 100% on BiPAP; eh3 23:30 BP 130 / 69; Pulse 68; Pulse Ox 100% on BiPAP; aa9 05/31 00:00 BP 122 / 65; Pulse 69; Pulse Ox 99% on BiPAP; aa9 02:34 BP 107 / 83; Pulse 65; Pulse Ox 100% on BiPAP; aa9 03:55 BP 133 / 62; Pulse 70; Resp 14 S; Pulse Ox 98% on 2 lpm NC; aa9 04:50 BP 112 / 69; Pulse 69; Resp 16 S; Pulse Ox 98% on 2 lpm NC; aa9 ED Course: 05/30 21:38 Patient arrived in ED. aa9 21:39 Giovani Guzman MD is Attending Physician. kdr 21:41 Michael Brenner RN is Primary Nurse. as6 21:41 Inserted saline lock: 18 gauge in right antecubital area, using aseptic technique. as6 Blood collected. Maintain EMS IV. Dressing intact. Good blood return noted. Site clean \T\ dry. Gauge \T\ site: 18g LAC. 21:45 Triage completed. as6 21:45 Miller cath inserted, using sterile technique, 16 Fr., by or, balloon inflated, to ld1 gravity drainage, Patient tolerated well. 21:56 XRAY Chest (1 view) In Process Unspecified. EDMS 22:28 BIPAP Sent. eh3 22:28 Arterial Blood Gas Sent. eh3 22:30 Arm band placed on. aa9 22:31 No provider procedures requiring assistance completed. eh3 22:31 Patient has correct armband on for positive identification. Placed in gown. Bed in low eh3 position. Call light in reach. Side rails up X2. Client placed on continuous cardiac and pulse oximetry monitoring. NIBP monitoring applied. Warm blanket given. 23:10 Prince Lopez MD is Hospitalizing Provider. kdr 05/31 00:08 Notified ED physician of a critical lab result(s). potassium 6.2 Troponin 74.8. kl Administered Medications: 05/30 21:44 Drug: Lasix (furosemide) 100 mg Route: IVP; Site: left antecubital; 3 22:28 Follow up: Urine output 100 ml; Response: No adverse reaction 3 23:50 Drug: D10 in Water [4ml/kg] 250 ml Route: IVP; Site: left antecubital; [facility] 05/31 01:20 Follow up: Response: No adverse reaction [facility] 05/30 23:58 Drug: Insulin Regular Human 10 units {Co-Signature: 3 (Sushma Katz RN).} Route: aa9 IVP; Site: right antecubital; 06/01 11:26 Follow up: Response: No adverse reaction [facility] 05/31 01:19 Drug: Albuterol 2.5 mg Route: Inhalation; 01:19 Drug: Albuterol 2.5 mg Route: Inhalation; 01:19 Drug: Calcium Gluconate 1 grams Route: IVPB; Infused Over: 60 mins; Site: left [facility] antecubital; 06/01 11:26 Follow up: IV Status: Completed infusion; IV Intake: 100ml [facility] 05/31 01:34 Drug: Sodium Bicarbonate 2 amp Route: IVP; Site: left antecubital; [facility] 06/01 11:26 Follow up: Response: No adverse reaction [facility] 05/31 03:25 Drug: Tylenol 650 mg Route: PO; 06/01 11:25 Follow up: Response: No adverse reaction [facility] Medication: 05/30 22:15 VIS not applicable for this client. eh3 Point of Care Testing: Blood Glucose: 05/31 02:35 Blood Glucose: 159 mg/dL; 3 Ranges: Intake: 06/01 11:26 IV: 100ml; Total: 100ml. 1 Output: 05/30 22:28 Urine: 100ml; Total: 100ml. 3 Outcome: 23:12 Decision to Hospitalize by Provider. [facility] 06/01 12:33 Patient left the ED. ss Signatures: Dispatcher [employer] HAYKY Tiffanie Parsons RN RN kl Rittger, Kevin, MD MD [facility] Lydia Chong RN RN ss Isac Parsons RN RN ll1 Alejandra Marin RN RN ld1 Michael Brenner, RN RN as6 Sushma Katz RN RN ll3 Christi Peace RN RN [facility] Jordana Singleton, RILEY RN [facility] Sushma Katz RN ll3 Corrections: (The following items were deleted from the chart) 05/30 22:39 22:31 Allergies: Demerol; [place] [id number] 22:39 22:31 Allergies: Lisinopril; [place] [address] 22:39 22:31 Allergies: Xarelto; [place] [address] 22:39 22:31 Home Meds: Amiodarone Oral; [place] [address] 22:39 22:31 Home Meds: Aspirin Oral; [place] [address] 22:39 22:31 Home Meds: carvedilol Oral; [place] [address] 22:39 22:31 Home Meds: Digoxin Oral; [place] [address] 22:39 22:31 Home Meds: Eliquis Oral; [place] [address] 22:39 22:31 Home Meds: Entresto Oral; [place] [address] 22:39 22:31 Home Meds: fenofibrate Oral; [place] [address] 22:39 22:31 Home Meds: Furosemide Oral; [place] [address] 22:39 22:31 Home Meds: Lokelma Oral; [place] [address] 22:39 22:31 Home Meds: Magnesium Oxide Oral; [place] [address] 22:39 22:31 Home Meds: rosuvastatin Oral; [place] [address] 22:39 22:31 PMHx: Atrial fibrillation; [place] [address] 22:39 22:31 PMHx: CHF; [place] [address] 22:39 22:31 PMHx: pacemaker/defibrillator; [place] [address] 22:39 22:31 PSHx: Stented artery; [place] [address] 22:39 22:31 Immunization history: Adult Immunizations unknown, [place] [address] 22:39 22:31 Social history: Smoking status: unknown [place] [address] 05/31 02:34 05/30 23:30 BP 107 / 83; Pulse 65bpm; Pulse Ox 100% CPAP; 9 9 05/31 02:35 02:34 BP 107 / 83; Pulse 65bpm; Pulse Ox 100% CPAP; aa9 aa9
--- NOTE | 2022-05-30 23:12 | EDPHYS ---
Physician Documentation [facility] Name: Han Hyde Age: 72 yrs Sex: Male : 1950 Arrival Date: 05/30/2022 Time: 21:38 Bed 24 Private MD: ED Physician Giovani Guzman HPI: 05/30 21:40 This 72 yrs old Male presents to ER via Unassigned with complaints of Shortness of kdr breath. 21:40 EMS was called to the patient's residence for shortness of breath. On their arrival kdr they noted him to be poorly responsive and satting at 50% on his home CPAP. When they transitioned him to their own device, they were able to get his oxygen up to 83%. After initially being placed on BiPAP here in the ED, his saturations have now increased to 96 to 97%. Patient is clearly dyspneic. He clearly has florid failure. She reported that he has had similar episodes in the past. It is unknown if he has had to be intubated at this time. Onset: The symptoms/episode began/occurred at an unknown time. Severity of symptoms: At their worst the symptoms were severe incapacitating in the emergency department the symptoms are unchanged. The patient has not experienced similar symptoms in the past. It is unknown whether or not the patient has recently seen a physician. Historical: - Allergies: 22:43 Demerol; aa9 22:43 Xarelto; aa9 22:43 Lisinopril; aa9 - Home Meds: 22:43 Eliquis 5 mg oral tab 1 tab 2 times per day [Active]; Entresto 49-51 mg oral tab 1 tab aa9 2 times per day [Active]; Lokelma 5 gram oral pwpk 1 packet once daily [Active]; amiodarone 200 mg Oral tab 1 tab once daily [Active]; carvedilol 12.5 mg oral tab 1 tab 2 times per day [Active]; fenofibrate 145mg oral 1 cap once daily [Active]; rosuvastatin 40 mg oral cpSP 1 cap once daily [Active]; magnesium oxide 400 mg (241.3 mg magnesium) Oral tab 400 mg twice a day [Active]; digoxin 125 mcg (0.125 mg) Oral tab 1 tab once daily [Active]; furosemide 40 mg Oral tab 1 tab once daily [Active]; aspirin 81 mg Oral cap 1 cap once daily [Active]; tresiba 200 unit pen 60 units morning [Active]; trulicity 3.0 once weekly [Active]; Novolog U-100 Insulin aspart 100 unit/mL Sub-Q soln before meals [Active]; - PMHx: 22:43 Hypertensive disorder; Diabetes mellitus; aa9 - PSHx: 22:43 triple bypass; heart stent; pacemaker right side; R shoulder replacement; aa9 - Immunization history:: Client reports receiving the 2nd dose of the Covid vaccine, moderna. - Social history:: Smoking status: unknown. ROS: 21:40 Constitutional: Unable to assess as the patient is poorly responsive kdr 21:40 Unable to obtain ROS due to altered mental status, obtunded state. Exam: 21:40 Constitutional: This is a well developed, well nourished patient who is awake, alert, kdr and in no acute distress. Head/Face: Normocephalic, atraumatic. Eyes: Pupils equal round and reactive to light, extra-ocular motions intact. Lids and lashes normal. Conjunctiva and sclera are non-icteric and not injected. Cornea within normal limits. Periorbital areas with no swelling, redness, or edema. Neck: Trachea midline, no thyromegaly or masses palpated, and no cervical lymphadenopathy. Supple, full range of motion without nuchal rigidity, or vertebral point tenderness. No Meningismus. Chest/axilla: Normal chest wall appearance and motion. Nontender with no deformity. No lesions are appreciated. Abdomen/GI: Soft, non-tender, with normal bowel sounds. No distension or tympany. No guarding or rebound. No evidence of tenderness throughout. Back: No spinal tenderness. No costovertebral tenderness. Full range of motion. Skin: Warm, dry with normal turgor. Normal color with no rashes, no lesions, and no evidence of cellulitis. MS/ Extremity: Pulses equal, no cyanosis. Neurovascular intact. Full, normal range of motion. 21:40 Cardiovascular: Rate: normal, Rhythm: regular. 21:40 Respiratory: moderate respiratory distress is noted, severe repiratory distress is noted, Respirations: labored breathing, that is mild, that is moderate, Breath sounds: rales, bronchial sounds, that are severe, are scattered, are heard diffusely. Vital Signs: 21:36 BP 159 / 132; Pulse 77; Resp 36; Pulse Ox 100% on BiPAP; eh3 21:45 BP 179 / 84; Pulse 81; Pulse Ox 100% on BiPAP; eh3 22:00 BP 161 / 79; Pulse 73; Resp 31; Pulse Ox 100% on BiPAP; eh3 22:15 BP 128 / 65; Pulse 67; Resp 32; Pulse Ox 100% on BiPAP; eh3 22:30 BP 123 / 65; Pulse 65; Resp 30; Pulse Ox 100% on BiPAP; eh3 23:30 BP 130 / 69; Pulse 68; Pulse Ox 100% on BiPAP; aa9 05/31 00:00 BP 122 / 65; Pulse 69; Pulse Ox 99% on BiPAP; aa9 02:34 BP 107 / 83; Pulse 65; Pulse Ox 100% on BiPAP; aa9 03:55 BP 133 / 62; Pulse 70; Resp 14 S; Pulse Ox 98% on 2 lpm NC; aa9 04:50 BP 112 / 69; Pulse 69; Resp 16 S; Pulse Ox 98% on 2 lpm NC; aa9 MDM: 05/30 21:40 Data reviewed: vital signs, nurses notes, lab test result(s), radiologic studies. kdr Counseling: I had a detailed discussion with the patient and/or guardian regarding: the historical points, exam findings, and any diagnostic results supporting the discharge/admit diagnosis, lab results, radiology results, the need for further work-up and treatment in the hospital. 23:12 Patient medically screened. kdr 05/30 21:39 Order name: Basic Metabolic Panel; Complete Time: 00:14 kdr 05/30 21:39 Order name: CBC with Diff; Complete Time: 23:01 kdr 05/30 21:39 Order name: NT PRO-BNP; Complete Time: 00:14 kdr 05/30 21:39 Order name: Troponin HS; Complete Time: 00:14 kdr 05/30 21:52 Order name: ABG; Complete Time: 22:15 as6 05/30 21:52 Order name: Arterial Blood Gas as6 05/30 22:36 Order name: ABG; Complete Time: 23:13 kdr 05/30 23:35 Order name: SARS RAPID wm 05/31 01:44 Order name: Glucose, Ancillary Testing EDMS 05/31 02:47 Order name: Glucose, Ancillary Testing EDMS 05/31 05:06 Order name: CBC with Automated Diff EDMS 05/31 05:37 Order name: Comprehensive Metabolic Panel EDMS 05/31 05:37 Order name: Creatine Phosphokinase EDMS 05/31 05:37 Order name: Troponin High Sensitivity EDMS 05/30 21:39 Order name: XRAY Chest (1 view); Complete Time: 23:01 kdr 05/30 21:47 Order name: BIPAP [facility] 05/31 05:37 Order name: Lipid Profile EDMS 05/31 06:51 Order name: US EDMS 05/31 07:24 Order name: Glucose, Ancillary Testing EDMS 05/31 08:23 Order name: Manual Differential EDMS 05/31 10:24 Order name: Troponin High Sensitivity EDMS 05/31 11:24 Order name: Glucose, Ancillary Testing EDMS 05/31 17:25 Order name: Glucose, Ancillary Testing EDMS 05/31 18:04 Order name: Potassium EDMS 05/31 22:08 Order name: Glucose, Ancillary Testing EDMS 05/31 22:46 Order name: Glucose Level EDMS 06/01 02:52 Order name: CBC with Automated Diff EDMS 06/01 03:03 Order name: Comprehensive Metabolic Panel EDMS 06/01 07:24 Order name: Glucose, Ancillary Testing EDMS 05/30 21:39 Order name: EKG; Complete Time: 21:40 kdr 05/30 21:39 Order name: Cardiac monitoring; Complete Time: 21:41 kdr 05/30 21:39 Order name: EKG - Nurse/Tech; Complete Time: 21:41 kdr 05/30 21:39 Order name: IV Saline Lock; Complete Time: 21:41 kdr 05/30 21:39 Order name: Labs collected and sent; Complete Time: 21:41 kdr 05/30 21:39 Order name: O2 Per Protocol; Complete Time: 21:41 kdr 05/30 21:39 Order name: O2 Sat Monitoring; Complete Time: 21:41 kdr 05/30 21:40 Order name: Miller; Complete Time: 21:44 kdr 05/31 00:14 Order name: EKG - Nurse/Tech; Complete Time: 01:19 kdr 05/31 00:16 Order name: Glucose Level: Test Q 30 minutes; Complete Time: 01:33 kdr Administered Medications: 21:44 Drug: Lasix (furosemide) 100 mg Route: IVP; Site: left antecubital; 3 22:28 Follow up: Urine output 100 ml; Response: No adverse reaction [facility] 23:50 Drug: D10 in Water [4ml/kg] 250 ml Route: IVP; Site: left antecubital; 05/31 01:20 Follow up: Response: No adverse reaction [facility] 05/30 23:58 Drug: Insulin Regular Human 10 units {Co-Signature: ll3 (Sushma Katz RN).} Route: aa9 IVP; Site: right antecubital; 06/01 11:26 Follow up: Response: No adverse reaction [facility] 05/31 01:19 Drug: Albuterol 2.5 mg Route: Inhalation; 01:19 Drug: Albuterol 2.5 mg Route: Inhalation; 01:19 Drug: Calcium Gluconate 1 grams Route: IVPB; Infused Over: 60 mins; Site: left [facility] antecubital; 06/01 11:26 Follow up: IV Status: Completed infusion; IV Intake: 100ml [facility] 05/31 01:34 Drug: Sodium Bicarbonate 2 amp Route: IVP; Site: left antecubital; 06/01 11:26 Follow up: Response: No adverse reaction [facility] 05/31 03:25 Drug: Tylenol 650 mg Route: PO; 06/01 11:25 Follow up: Response: No adverse reaction [facility] Point of Care Testing: Blood Glucose: 05/31 02:35 Blood Glucose: 159 mg/dL; ll3 Ranges: Critical Glucose Levels:Adult <50 mg/dl or >400 mg/dl <40 mg/dl or >180 mg/dl Disposition Summary: 05/30/22 23:12 Hospitalization Ordered Hospitalization Status: Inpatient Admission kdr Provider: Prince tylor Lopez Condition: Serious kdr Problem: an acute exacerbation kdr Symptoms: have improved kdr Bed/Room Type: Standard kdr Location: Telemetry/MedSurg (Inpatient)(06/01/22 10:59) eb Room Assignment: 403(06/01/22 10:59) eb Diagnosis - Heart failure, unspecified kdr - Shortness of breath kdr - Respiratory failure, unspecified with hypoxia - 50% on home CPAP kdr Forms: - Medication Reconciliation Form kdr - SBAR form kdr Signatures: Dispatcher [employer] EDRuthie Hoffman RN RN Giovani Guzman MD MD kdr Attema, Lee, PRODUCTION MACHINIST-C PRODUCTION MACHINIST-Cla1 Angely Green Erin, RN RN [facility] Jordana Singleton RN RN aaIsac Finney RN ll1 Sushma Katz RN ll3 Corrections: (The following items were deleted from the chart) 05/30 22:39 22:31 Allergies: Demerol; [place] [id number] 22:39 22:31 Allergies: Lisinopril; [place] [address] 22:39 22:31 Allergies: Xarelto; [place] [address] 22:39 22:31 Home Meds: Amiodarone Oral; [place] [address] 22:39 22:31 Home Meds: Aspirin Oral; [place] [address] 22:39 22:31 Home Meds: carvedilol Oral; [place] [address] 22:39 22:31 Home Meds: Digoxin Oral; [place] [address] 22:39 22:31 Home Meds: Eliquis Oral; [place] [address] 22:39 22:31 Home Meds: Entresto Oral; [facility] 22:39 22:31 Home Meds: fenofibrate Oral; [place] [address] 22:39 22:31 Home Meds: Furosemide [facility]; [facility] 22:39 22:31 Home Meds: Lokelma Oral; [place] [address] 22:39 22:31 Home Meds: Magnesium Oxide Oral; [place] [address] 22:39 22:31 Home Meds: rosuvastatin Oral; [place] [address] 22:39 22:31 PMHx: Atrial fibrillation; [place] [address] 22:39 22:31 PMHx: CHF; [place] [address] 22:39 22:31 PMHx: pacemaker/defibrillator; [place] [address] 22:39 22:31 PSHx: Stented artery; [place] [address] 22:39 22:31 Immunization history: Adult Immunizations unknown, [place] [address] 22:39 22:31 Social history: Smoking status: unknown [place] [address] 23:51 23:12 Intensive Care Unit kdr 23:51 23:12 kdr 06/01 10:59 05/30 23:51 [facility] ER HOLD [facility] 06/01 10:59 05/30 23:51 ERHOLD- mw eb
[2022-05-31 00:08] LABS: Potassium 6.2 mmol/L (3.5-5.1); Troponin High Sensitivity 74.8 pg/mL (<58.9)
--- NOTE | 2022-05-31 00:37 | P.HP ---
Certification for Inpatient Patient admitted to: Inpatient With expected LOS: >2 Midnights Patient will require the following post-hospital care: None Practitioner: I am a practitioner with admitting privileges, knowledge of patient current condition, hospital course, and medical plan of care. Services: Services provided to patient in accordance with Admission requirements found in Title 42 Section 412.3 of the Code of Federal Regulations Patient History Date of Service: 05/31/22 Primary Care Provider: Dr. Guzman Reason for admission: CHF exacerbation, EDIE/hyper-K History of Present Illness: 72-year-old male with history of diabetes mellitus type 2insulin-dependent, chronic systolic congestive heart failure, atrial fibrillation on chronic anticoagulation, CAD, CKD 4 and hypertension presented to the emergency department in respiratory distress. Upon arrival to the emergency department patient was altered, tachypneic, hypoxic he reports onset of shortness of breath around 8 PM in the evening. He was evaluated in the emergency department his initial ABG showed a pH of 7.21 PCO2 of 52.5 PO2 207 on BiPAP HCO3 20.2, after about an hour on BiPAP patient's mental status improved significantly he is able to communicate verbally and follow commands in mild respiratory distress his ABG improved with pH 7.34 PCO2 43.1 his other labs were significant for acute worsening of his CKD 4 Baseline creatinine appears to be around 2.6 currently up to 3.14 GFR is 20 BUN 42 potassium 6.2 high-sensitivity troponin 74.8 BNP 6991 and a chest x-ray performed which revealed moderate bilateral pulmonary opacities greater on the right findings medicate CHF versus pneumonia, clinically patient much more likely has CHF exacerbation. ED provider wishes to admit for further valuation and management of acute hypoxic respiratory failure secondary to CHF, EDIE with hyperkalemia. Allergies lisinopril Allergy (Verified 12/09/21 11:11) Rash meperidine [From Demerol] Allergy (Verified 12/09/21 11:11) Hallucinations rivaroxaban [From Xarelto] Allergy (Verified 12/09/21 11:11) Heavy Bleeding Home Medications: Rosuvastatin [Crestor*] 40 mg PO BEDTIME 02/10/17 Magnesium Oxide [Mag 0X*] 400 mg PO BID 03/25/18 carvediloL [Coreg*] 12.5 mg PO BID 03/25/18 Amiodarone HCl [Pacerone] 200 mg PO DAILY 12/09/21 Aspirin [Ecotrin 81 MG] 81 mg PO DAILY 12/09/21 Digoxin [Lanoxin*] 0.125 mg PO DAILY 12/09/21 Dulaglutide [Trulicity] 3 mg PO EVERY 7TH DAY 12/09/21 Empagliflozin [Jardiance] 10 mg PO DAILY 12/09/21 Fenofibrate [Tricor*] 145 mg PO DAILY 12/09/21 Insulin Aspart [Novolog Flexpen] 17 unit SQ AC 12/09/21 Insulin Degludec [Tresiba Flextouch U-200] 60 unit SQ DAILY 12/09/21 Sacubitril/Valsartan [Entresto 49 mg-51 mg Tablet] 1 tab PO BID 12/09/21 Sodium Zirconium Cyclosilicate [Lokelma] 5 gm PO DAILY 12/09/21 - Past Medical/Surgical History Diabetic: Yes -: Hyperlipidemia -: IDDM -: Coronary artery disease -: Chronic systolic congestive heart failure -: Atrial fibrillation on chronic anticoagulation -: CKD 4 -: Triple bypass-2008 -: Coronary [id number]=[id number] -: Pacemaker/Defibrillator -: Rt shoulder sx-2015 Psychosocial/ Personal History: Patient is . - Family History Father -: Heart disease, Hypertension, Stroke Mother -: Heart disease, Hypertension - Social History Alcohol use: No CD- Drugs: No Caffeine use: Yes Place of Residence: Home Review of Systems 10-point ROS is otherwise unremarkable Respiratory: Shortness of Breath, SOB with Excertion Cardiovascular: Orthopnea, Edema Physical Examination - Physical Exam General: Alert, In no apparent distress, Oriented x3 HEENT: Atraumatic, PERRLA, Mucous membr. moist/pink, EOMI, Sclerae nonicteric Neck: Supple, 2+ carotid pulse no bruit, No LAD, Without JVD or thyroid abnormality Respiratory: Diminished, Crackles/rales, Other (Mild distress on BiPAP70% FiO2) Cardiovascular: Regular rate/rhythm, Normal S1 S2, Edema (2+ edema lower e xtremities) Capillary refill: <2 Seconds Gastrointestinal: Normal bowel sounds, No tenderness Musculoskeletal: No tenderness Integumentary: No rashes Neurological: Normal speech, Normal strength at 5/5 x4 extr, Normal tone, Normal affect - Studies Laboratory Data (last 24 hrs) 05/30/22 23:14: Sodium 139, Potassium 6.2 H*, BUN 42 H, Creatinine 3.15 H, Glucose 199 H 05/30/22 21:40: WBC 13.30 H, Hgb 13.9, Hct 42.7, Plt Count 303 Assessment and Plan - Plan Assessment: Acute hypoxic respiratory failure Acute on chronic systolic congestive heart failure S/P pacemaker/defibrillator Acute kidney injury superimposed on CKD 4 with hyperkalemia Atrial fibrillation on chronic anticoagulation therapy Diabetes mellitus type 2insulin-dependent Hypertension Hyperlipidemia History of CAD S/P CABG 2008 Plan: Acute hypoxic respiratory failure: Secondary to CHF exacerbation continue as below, supplemental oxygen as needed. Patient was saturating 50% on his home CPAP machine upon EMS arrival. Acute on chronic systolic congestive heart failure S/P pacemaker/defibrillator: Cardiology consult in place, echocardiogram ordered, mildly elevated high- sensitivity troponin likely demand ischemia we will trend. We will need to hold patient's medications including his Entresto given his acute renal failure/hyperkalemia. Appreciate further input from cardiology/nephrology. He has improved significantly after diuresis in the emergency department continue with IV Lasix and has been taking his Lasix only as needed at home. Acute kidney injury superimposed on CKD 4 with hyperkalemia: Treated in the emergency department for hyperkalemia, patient with chronic kidney disease. Renal ultrasound ordered and nephrology consult in place. Possible that CRS may be contributing we will hold Entresto until further clearance from nephrology. Renally dose medications, Eliquis switched to Lovenox for time being. Atrial fibrillation on chronic anticoagulation therapy: Monitor on telemetry, therapeutic Lovenoxrenally dose for now patient has been taking Eliquis 5 mg p.o. twice daily at home. Continue digoxin, amiodarone, digoxin level tomorrow. Diabetes mellitus type 2insulin-dependent: ACHS Accu-Chek, sliding scale insulin. Hypertension: Home medications continued Hyperlipidemia: Statin continued History of CAD S/P CABG 2009: Home meds continued, monitor on telemetry and trend troponins. DVT PPX: Therapeutic Lovenoxrenally dosed Code status: Full Discharge Plan: Home Plan to discharge in: Greater than 2 days - Advance Directives Does patient have a Living Will: No Does patient have a Durable POA for Healthcare: No - Code Status/Comfort Care Code Status Assessed: Yes (Full code) Critical Care: No Time Spent Managing Pts Care (In Minutes): 70
[2022-05-31] MEDS ORDERED: ALBUTEROL 2.5 MG/3 ML NEB SOL ONE (00:38)
[2022-05-31] MEDS ORDERED: FUROSEMIDE 100 MG/10 ML VIAL IV ONE (00:38)
[2022-05-31] MEDS ORDERED: INSULIN -REGULAR HUMAN 50 UNIT/0.5 ML ML ONE ×4 (00:39→22:14)
[2022-05-31] MEDS ORDERED: CALCIUM GLUCONATE 1 GM IVPB 1 GM/50 ML BAG IV ONE (00:40)
[2022-05-31] MEDS ORDERED: SODIUM BICARB 50 MEQ/50ML VIAL ONE (00:40)
[2022-05-31] MEDS ORDERED: DEXTROSE 10%-WATER 500 ML IV ONE (00:46)
[2022-05-31 01:44] LABS: SARS-CoV-2 Antigen Rapid Res Negative (Negative)
[2022-05-31] MEDS ORDERED: ONDANSETRON 4 MG/2 ML VIAL IV PRN (03:03)
[2022-05-31] MEDS ORDERED: ACETAMINOPHEN 325 MG TABLET ONE ×2 (03:28→22:20)
[2022-05-31 03:41] VITALS: BMI 32.5
[2022-05-31] MEDS ORDERED: ENOXAPARIN 100 MG/ML SYR SQ SCH ×2 (04:31→09:00)
[2022-05-31 04:56] LABS: Absolute Lymphocytes (CBC) 0.6 K/uL (0.7-4.9); Hematocrit 39.3 % (39.6-49.0); Lymphocytes % 5.3 % (15.3-44.8); MPV 7.8 fL (7.6-11.3); RBC Red Blood Cell Count 4.51 M/uL (4.33-5.43)
[2022-05-31 05:09] LABS: Albumin 3.3 g/dL (3.4-5.0); Bilirubin Total 0.3 mg/dL (0.2-1.0); Potassium 5.4 mmol/L (3.5-5.1); Protein, Total 6.9 g/dL (6.4-8.2)
[2022-05-31 05:37] LABS: Troponin High Sensitivity 106.5 pg/mL (<58.9)
[2022-05-31] MEDS: carvediloL 6.25 MG TAB PO SCH ×2 (06:00→18:00)
[2022-05-31] MEDS ORDERED: carvediloL 6.25 MG TAB ONE ×2 (06:31→18:50)
--- NOTE | 2022-05-31 06:51 | RAD REPORT ---
EXAM DESCRIPTION: US - Renal Ultrasound-Complete - 05/31/2022 4:49 am CLINICAL HISTORY: kash, hyperkalemia COMPARISON: Renal Ultrasound-Complete dated 03/18/2022 FINDINGS: The right kidney measures 10.0 x 4.9 x 5.3 cm. The left kidney measures 9.4 x 4.9 x 4.3 c m allowing for differences in image selection and measurement technique, renal size is not substantia lly different from the March study. Renal cortical thickness and echogenicity are normal. No hydroneph rosis or suspicious renal mass. The suspected nonobstructing lower pole left renal calculus detailed on the March examination is not clearly seen on the current study. Stones can be obscured by the echog enic renal terry fat. Urinary bladder is contracted precluding assessment. IMPRESSION: No hydronephrosis or suspicious renal mass. No other significant findings. No significant changes from the March comparison.
[2022-05-31] MEDS: INSULIN -REGULAR HUMAN 50 UNIT/0.5 ML ML SQ SCH ×5 (07:18→21:45)
[2022-05-31] MEDS ORDERED: PNEUMOCOCCAL VACCINE 0.5 ML IMVAC ONE ×2 (08:00→08:16)
[2022-05-31] MEDS ORDERED: AMIODARONE HCL 200 MG TAB ONE (08:15)
[2022-05-31] MEDS ORDERED: DIGOXIN 0.25 MG TABLET ONE (08:16)
[2022-05-31] MEDS ORDERED: APIXABAN 5 MG TABLET ONE ×2 (08:16→22:19)
[2022-05-31] MEDS ORDERED: FUROSEMIDE 40 MG/4 ML VIAL ONE ×2 (08:16→17:33)
[2022-05-31] MEDS ORDERED: ASPIRIN EC 81 MG TAB PO ONE (08:17)
[2022-05-31] MEDS: APIXABAN 5 MG TABLET PO SCH ×2 (08:21→22:00)
[2022-05-31] MEDS: AMIODARONE HCL 200 MG TAB PO SCH (08:21)
[2022-05-31] MEDS: FUROSEMIDE 40 MG/4 ML VIAL IV SCH ×2 (08:21→17:00)
[2022-05-31] MEDS: DIGOXIN 0.25 MG TABLET PO SCH (08:21)
[2022-05-31] MEDS: ASPIRIN EC 81 MG TAB PO SCH (08:21)
[2022-05-31 08:22] LABS: Platelet Estimate ADEQ
[2022-05-31 08:23] LABS: Blood Morphology Comment NOT SEEN (NOT SEEN)
[2022-05-31] MEDS ORDERED: DIGOXIN 0.125 MG TABLET PO SCH (09:00)
--- NOTE | 2022-05-31 16:31 | P.CNS ---
Date of Consult: 05/31/22 Reason for Consult: EDIE on CKD Requesting Physician: Carlo Mishra Primary Care Provider: Dr. Guzman Chief Complaint: CHF exacerbation, EDIE/hyper-K History of Present Illness: 72-year-old male with history of diabetes mellitus type 2insulin- dependent, chronic systolic congestive heart failure, atrial fibrillation on chronic anticoagulation, CAD, CKD 4 and hypertension presented to the emergency department reporting some acute shortness of breath Pt reports had been watching his weights and takes Lasix intermittently when weight is up or symptoms worsen per the instructions of his Sustainability Specialist but does not take Lasix on a daily basis. He was initially reportedly altered, tachypneic, hypoxic but appears to be doing better now. He denies dyspnea at rest, he denies CP. He has been responding to IV lasix. Allergies lisinopril Allergy (Verified 12/09/21 11:11) Rash meperidine [From Demerol] Allergy (Verified 12/09/21 11:11) Hallucinations rivaroxaban [From Xarelto] Allergy (Verified 12/09/21 11:11) Heavy Bleeding Home Medications: Rosuvastatin [Crestor*] 40 mg PO BEDTIME 02/10/17 Magnesium Oxide [Mag 0X*] 400 mg PO BID 03/25/18 carvediloL [Coreg*] 12.5 mg PO BID 03/25/18 Amiodarone HCl [Pacerone] 200 mg PO DAILY 12/09/21 Aspirin [Ecotrin 81 MG] 81 mg PO DAILY 12/09/21 Digoxin [Lanoxin*] 0.125 mg PO DAILY 12/09/21 Dulaglutide [Trulicity] 3 mg PO EVERY 7TH DAY 12/09/21 Empagliflozin [Jardiance] 10 mg PO DAILY 12/09/21 Fenofibrate [Tricor*] 145 mg PO DAILY 12/09/21 Insulin Aspart [Novolog Flexpen] 17 unit SQ AC 12/09/21 Insulin Degludec [Tresiba Flextouch U-200] 60 unit SQ DAILY 12/09/21 Sacubitril/Valsartan [Entresto 49 mg-51 mg Tablet] 1 tab PO BID 12/09/21 Sodium Zirconium Cyclosilicate [Lokelma] 5 gm PO DAILY 12/09/21 - Past Medical/Surgical History Diabetic: Yes -: Hyperlipidemia -: IDDM -: Coronary artery disease -: Chronic systolic congestive heart failure -: Atrial fibrillation on chronic anticoagulation -: CKD [address] Cowart -: Triple bypass-2008 -: Coronary lqjesi=[id number] -: Pacemaker/Defibrillator -: Rt shoulder sx-2015 Psychosocial/ Personal History: Patient is . - Family History Father Medical History: Heart disease, Hypertension, Stroke Mother Medical History: Heart disease, Hypertension - Social History Smoking Status: Unknown if ever smoked Alcohol use: No CD- Drugs: No Caffeine use: Yes Place of Residence: Home Review of Systems General: Weakness Eyes: Other ENT: Unremarkable Respiratory: Shortness of Breath, SOB with Excertion Cardiovascular: Orthopnea Gastrointestinal: Unremarkable Genitourinary: Unremarkable Musculoskeletal: Unremarkable Integumentary: Unremarkable Neurological: Unremarkable Lymphatics: Unremarkable Physical Examination Temp Pulse Resp BP Pulse Ox 98 F 68 18 129/77 98 05/31/22 12:00 05/31/22 12:00 05/31/22 12:00 05/31/22 12:00 05/31/22 12:00 General: Alert, In no apparent distress, Oriented x3 HEENT: Atraumatic, Normocephalic, Mucous membr. moist/pink, Abnormal EOM Neck: Supple, Other (JVD difficult to appreciate) Respiratory: Normal air movement (Scattered rales) Cardiovascular: No edema, Regular rate/rhythm, Normal S1 S2 Gastrointestinal: Soft and benign, Non-distended, No tenderness Musculoskeletal: No clubbing, No swelling, No contractures Integumentary: No rashes, No breakdown Neurological: Normal speech, Normal affect Laboratory Data (last 24 hrs) 05/30/22 23:14: Sodium 139, Potassium 6.2 H*, BUN 42 H, Creatinine 3.15 H, Glucose 199 H 05/30/22 21:40: WBC 13.30 H, Hgb 13.9, Hct 42.7, Plt Count 303 Conclusions/Impression: 1. Stage II EDIE 2. Underlying CKD IV 3. Hyperkalemia on admission 4. Acute on chronic systolic CHF 5. Acute hypercarbic and hypoxic respiratory insufficiency 6. Acute pulmonary edema 7. Calculus of kidney -EDIE presumably 2nd to Type I/II CRS with baseline Cr levels in the 2.4-2.7 mg/dl range. Renal imaging does not show any obstructive uropathy. -Cont to monitor renal function closely on IV Lasix and with diuresis. -Hold BRADEN inhibitors/Entresto at this time due to EDIE and recent hyperkalemia. Will look to resume possibly at lower dose once renal function recovers to baseline. -Hold SGLT2i agents at this time until eGFR improves and while on IV lasix -Will clarify if pt was taking Lokelma as an OP, pt would benefit from scheduled cation exchanger therapy in light of his CKD and if Entresto is to be resumed and continued to prevent recurrent hyperkalemia but Veltassa would be preferred to avoid sodium load associated with Lokelma -Target BP < 130/80. -Target better diabetic control. -Renal u/s did not reveal the > 5 mm stone seen on CT in the summer, no current flank or back pain reported. Will check UA -Will check spot urine. Thank you for this referral, Bhupinder Rob MD, [facility]
--- NOTE | 2022-05-31 17:08 | EKG ---
Test Date: 2022-05-31 Test Time: 01:19:02 Metal Refiner: CAIT MEASUREMENT RESULTS: Intervals: Rate: 62 WI: 214 QRSD: 118 QT: 374 QTc: 379 [place]: P: 67 WI: 214 QRS: 6 T: 159 INTERPRETIVE STATEMENTS: Sinus rhythm with 1st degree AV block Incomplete left bundle branch block ST & T wave abnormality, consider lateral ischemia Abnormal ECG Compared to ECG 04/20/2022 12:27:01 Left bundle-branch block now present T-wave abnormality no longer present ST (T wave) deviation still present Possible ischemia still present Electronically Signed On 05-31-22 17:06:36 CDT by Roman Thibodeaux
--- NOTE | 2022-05-31 17:09 | EKG ---
Test Date: 2022-05-30 Test Time: 21:41:59 Field Administrator: CAIT MEASUREMENT RESULTS: Intervals: Rate: 79 NC: 210 QRSD: 142 QT: 380 QTc: 435 [place]: P: 36 NC: 210 QRS: -42 T: 122 INTERPRETIVE STATEMENTS: Sinus rhythm with sinus arrhythmia with 1st degree AV block Left axis deviation Left bundle branch block Abnormal ECG Compared to ECG 04/20/2022 12:27:01 Left-axis deviation now present Left bundle-branch block now present ST (T wave) deviation no longer present T-wave abnormality no longer present Possible ischemia no longer present Electronically Signed On 05-31-22 17:06:41 CDT by Roman Thibodeaux
[2022-05-31] MEDS ORDERED: INSULIN -REGULAR HUMAN 50 UNIT/0.5 ML ML SQ SCH (17:17)
[2022-05-31] MEDS ORDERED: ATORVASTATIN 40 MG TAB PO SCH (21:00)
[2022-05-31] MEDS: ACETAMINOPHEN 325 MG TABLET PO PRN (22:16)
[2022-05-31] MEDS ORDERED: ATORVASTATIN 20 MG TAB ONE (22:20)
[2022-05-31] MEDS ORDERED: INSULIN GLARGINE 100 UNIT/ML SQ SCH (22:46)
[2022-05-31] MEDS ORDERED: INSULIN GLARGINE 100 UNIT/ML SQ ONE (23:06)
[2022-06-01 02:40] LABS: Absolute Lymphocytes (CBC) 0.9 K/uL (0.7-4.9); Hematocrit 33.4 % (39.6-49.0); Lymphocytes % 6.4 % (15.3-44.8); MCV 85.8 fL (80-100); MPV 7.9 fL (7.6-11.3)
[2022-06-01 02:53] LABS: Bilirubin Total 0.3 mg/dL (0.2-1.0); Potassium 4.6 mmol/L (3.5-5.1); Protein, Total 6.1 g/dL (6.4-8.2)
[2022-06-01] MEDS: carvediloL 6.25 MG TAB PO SCH ×2 (06:00→17:02)
[2022-06-01] MEDS ORDERED: carvediloL 6.25 MG TAB ONE (06:22)
--- NOTE | 2022-06-01 06:49 | ECHO ---
HEIGHT: 5 ft 4 in WEIGHT: 190 lb 0 oz DATE OF STUDY: 05/31/[address]: Carlo Mishra NP 2-DIMENSIONAL: YES M.MODE: YES DOPPLER: YES COLOR FLOW: YES TDS: NO PORTABLE: YES DEFINITY: NO BUBBLE STUDY: NO DIAGNOSIS: CONGESTIVE HEART FAILURE CARDIAC HISTORY: CATHERIZATION: YES SURGERY: YES PROSTHETIC VALVE: NO PACEMAKER: YES MEASUREMENTS (cm) DIASTOLIC (NORMALS) SYSTOLIC (NORMALS) IVSd 1.0 (0.6-1.2) LA Diam 4.9 (1.9-4.0) LVEF 26% LVIDd 6.3 (3.5-5.7) LVIDs 5.5 (2.0-3.5) %FS 12% LVPWd 1.0 (0.6-1.2) Ao Diam 3.2 (2.0-3.7) 2 DIMENSIONAL ASSESSMENT: RIGHT ATRIUM: NORMAL LEFT ATRIUM: DILATED RIGHT VENTRICLE: NORMAL LEFT VENTRICLE: DILATED TRICUSPID VALVE: NORMAL MITRAL VALVE: NORMAL PULMONIC VALVE: NORMAL AORTIC VALVE: NORMAL PERICARDIAL EFFUSION: NONE AORTIC ROOT: NORMAL LEFT VENTRICULAR WALL MOTION: SEVERE GLOBAL HYPOKINESIS. DOPPLER/COLOR FLOW: MILD MITRAL AND TRICUSPID REGURGITATION. COMMENTS: SEVERE GLOBAL HYPOKINESIS. EJECTION FRACTION 26%. MILD MITRAL AND TRICUSPID REGURGITATION. AUTOMATIC INTERBAL CARDIAC DEFIBRILLATOR/ PERMANENT PACEMAKER. TECHNOLOGIST: MARY HOOD
[2022-06-01] MEDS: INSULIN GLARGINE 100 UNIT/ML SQ SCH ×2 (07:23→09:00)
[2022-06-01] MEDS: INSULIN -REGULAR HUMAN 50 UNIT/0.5 ML ML SQ SCH ×4 (07:30→21:00)
[2022-06-01] MEDS: INSULIN LISPRO 100 UNIT/1 ML SQ SCH ×3 (07:30→17:02)
[2022-06-01] MEDS ORDERED: HOME MED 1 EA UNK (Insulin Aspart [Novolog Flexpen] 100 UNIT/ML Insuln.Pen) SQ SCH (07:30)
[2022-06-01] MEDS ORDERED: APIXABAN 5 MG TABLET ONE (07:38)
[2022-06-01] MEDS ORDERED: AMIODARONE HCL 200 MG TAB ONE (07:38)
[2022-06-01] MEDS ORDERED: FUROSEMIDE 40 MG/4 ML VIAL ONE (07:38)
[2022-06-01] MEDS ORDERED: ASPIRIN 81 MG CHEWABLE TABLET ONE (07:38)
[2022-06-01] MEDS ORDERED: INSULIN GLARGINE 100 UNIT/ML SQ ONE ×2 (07:38→08:10)
[2022-06-01] MEDS ORDERED: INSULIN -REGULAR HUMAN 50 UNIT/0.5 ML ML ONE (07:39)
[2022-06-01] MEDS: APIXABAN 5 MG TABLET PO SCH ×2 (08:16→20:13)
[2022-06-01] MEDS: ASPIRIN EC 81 MG TAB PO SCH (08:16)
[2022-06-01] MEDS: AMIODARONE HCL 200 MG TAB PO SCH (08:16)
[2022-06-01] MEDS: DIGOXIN 0.25 MG TABLET PO SCH (08:16)
[2022-06-01] MEDS: FUROSEMIDE 40 MG/4 ML VIAL IV SCH (08:16)
[2022-06-01] MEDS ORDERED: ASPIRIN EC 81 MG TAB PO SCH (09:00)
[2022-06-01] MEDS ORDERED: FENOFIBRATE 160 MG TAB PO SCH (09:00)
[2022-06-01] MEDS ORDERED: carvediloL 12.5 MG TAB PO SCH (09:00)
[2022-06-01] MEDS ORDERED: AMIODARONE HCL 200 MG TAB PO SCH (09:00)
[2022-06-01] MEDS ORDERED: SODIUM ZIRCONIUM CYCLOSILICATE PO SCH (09:00)
--- NOTE | 2022-06-01 13:07 | P.PN ---
Nephrology note: (S) Pt reports breathing easier, has diuresed well, renal function tests however are worse and discussed results in detail. (O) Vitals reviewed in the EMR General: Alert, In no apparent distress, Oriented x3 HEENT: Atraumatic, Normocephalic, Mucous membr. moist/pink, Abnormal EOM Neck: Supple, Other (JVD difficult to appreciate) Respiratory: Normal air movement (Scattered rales) Cardiovascular: No edema, Regular rate/rhythm, Normal S1 S2 Gastrointestinal: Soft and benign, Non-distended, No tenderness Musculoskeletal: No clubbing, No swelling, No contractures Integumentary: No rashes, No breakdown Neurological: Normal speech, Normal affect Laboratory Data (last 24 hrs) 05/30/22 23:14: Sodium 139, Potassium 6.2 H*, BUN 42 H, Creatinine 3.15 H, Glucose 199 H 05/30/22 21:40: WBC 13.30 H, Hgb 13.9, Hct 42.7, Plt Count 303 Conclusions/Impression: 1. Stage II EDIE 2. Underlying CKD IV 3. Hyperkalemia on admission, resolved 4. Acute on chronic systolic CHF. Cardiomyopathy unspecified 5. Acute hypercarbic and hypoxic respiratory insufficiency 6. Acute pulmonary edema 7. Calculus of kidney -EDIE presumably 2nd to Type I/II CRS, relative blood lowering, diuresis/other with baseline Cr levels in the 2.4-2.7 mg/dl range. Renal imaging does not show any obstructive uropathy. -Cont to monitor renal function closely on IV Lasix and with diuresis, renal function can temporarily worsen during this time but should recover with cardiac/renal decongestion. -Hold BRADEN inhibitors/Entresto at this time due to EDIE and recent hyperkalemia. Will look to resume possibly at lower dose once renal function recovers to baseline. -Hold SGLT2i agents at this time until eGFR improves and while on IV lasix -Pt was taking Lokelma as an OP, and while he would benefit from continued scheduled cation exchanger therapy in light of his CKD and if Entresto is to be resumed to prevent recurrent hyperkalemia, Veltassa would be preferred to avoid sodium load associated with Lokelma -Target BP < 130/80. -Target better diabetic control. -Renal u/s did not reveal the > 5 mm stone seen on CT in the summer, no current flank or back pain reported. Did order UA but not done. -Did order spot urine. Bhupinder Rob MD, [facility]
--- NOTE | 2022-06-01 16:28 | P.PN ---
Subjective Date of Service: 06/01/22 Primary Care Provider: Dr. Guzman Chief Complaint: CHF exacerbation, EDIE/hyper-K Subjective: Other (Patient is off supplemental O2. Feeling better.) Physical Examination - Vital Signs Temperature: 97.1 F Blood Pressure: 139/63 Pulse: 60 Respirations: 18 Pulse Ox (%): 97 - Physical Exam General: Alert, In no apparent distress, Cooperative HEENT: Atraumatic, Normocephalic Respiratory: Clear to auscultation bilaterally, Normal air movement Cardiovascular: No edema, Normal pulses, Regular rate/rhythm, Normal S1 S2 Musculoskeletal: No clubbing, No swelling, No contractures, No erythema Neurological: Normal speech, Sensation intact, Cranial nerves 3-12 intact Assessment And Plan - Current Problems (Diagnosis) (1) EDIE (acute kidney injury) Current Visit: No Status: Acute (2) Acute on chronic systolic (congestive) heart failure Onset Date: 05/28/17 Current Visit: No Status: Acute (3) COPD (chronic obstructive pulmonary disease) Onset Date: 05/28/17 Current Visit: No Status: Acute Qualifiers: COPD type: unspecified COPD Qualified Code(s): J44.9 - Chronic obstructive pulmonary disease, unspecified (4) Elevated troponin Current Visit: No Status: Acute (5) Hyperkalemia Current Visit: No Status: Acute (6) CAD (coronary artery disease) of artery bypass graft Onset Date: 05/28/17 Current Visit: No Status: Chronic Qualifiers: [place] vs. transplanted heart: [place] heart Associated angina: with stable angina Qualified Code(s): I25.708 - Atherosclerosis of coronary artery bypass graft(s), unspecified, with other forms of angina pectoris (7) DM2 (diabetes mellitus, type 2) Current Visit: No Status: Chronic Qualifiers: Diabetes mellitus bed bug exterminator insulin use: with long-term use Diabetes mellitus complication status: with kidney complications Diabetes mellitus complication detail: with chronic kidney disease Chronic kidney disease stage: stage 4 (severe) Qualified Code(s): E11.22 - Type 2 diabetes mellitus with diabetic chronic kidney disease; N18.4 - Chronic kidney disease, stage 4 (severe); Z79.4 - intermediate project manager (current) use of insulin (8) HLD (hyperlipidemia) Current Visit: No Status: Chronic Qualifiers: Hyperlipidemia type: unspecified Qualified Code(s): E78.5 - Hyperlipidemia, unspecified - Plan Assessment Patient is a 72-year-old male with coronary artery disease status post CABG, uncontrolled diabetes mellitus and CKD stage IV. Was admitted to the hospital after he presented with shortness of breath. He is being treated for d ecompensated CHF with cardiorenal syndrome. He did very well from a cardiopulmonary standpoint. He has been weaned off BiPAP, which required admission. He is currently on room air and euvolemic. At this time he still has some renal insufficiency with his creatinine rising up. Nephrology has been consulted. Acute hypercapnic hypoxemic respiratory failure Acute on chronic systolic CHF-2D echo with a EF of 26% and severe global hypokinesis Type 2 diabetes mellitus with hyperglycemia Acute on chronic CKD stage IV Coronary artery disease status post CABG Plan: We have backed off diuresis as per nephrology recommendation. He has been switched to p.o. Lasix Patient follows up with Dr. Cowart for management of his renal function. His baseline creatinine is 2.6 We will also hold off his Jardiance in the setting of ongoing renal failure We will also hold Entresto His renal ultrasound was unremarkable Patient's blood sugar has been uncontrolled. He usually takes Tresiba 60 units in the morning along with Premeal lispro Started on equivalent dose of Lantus since Tresiba is not formulary here We will continue to monitor Discharge pending improvement of renal function Cardiology was consulted on admission
[2022-06-01] MEDS: FUROSEMIDE 20 MG TABLET PO SCH (17:02)
[2022-06-01] MEDS ORDERED: ROSUVASTATIN 10 MG TAB PO SCH (21:00)
[2022-06-02 06:13] LABS: Hematocrit 38.7 % (39.6-49.0); Lymphocytes % 20.5 % (15.3-44.8); MCV 87.2 fL (80-100); MPV 7.9 fL (7.6-11.3); RBC Red Blood Cell Count 4.43 M/uL (4.33-5.43)
[2022-06-02] MEDS: carvediloL 6.25 MG TAB PO SCH (06:33)
[2022-06-02 06:34] LABS: Albumin 3.2 g/dL (3.4-5.0); Bilirubin Total 0.3 mg/dL (0.2-1.0); Potassium 4.3 mmol/L (3.5-5.1); Protein, Total 6.8 g/dL (6.4-8.2)
[2022-06-02] MEDS: INSULIN -REGULAR HUMAN 50 UNIT/0.5 ML ML SQ SCH ×2 (07:30→12:03)
[2022-06-02] MEDS: INSULIN LISPRO 100 UNIT/1 ML SQ SCH ×2 (07:30→12:03)
[2022-06-02] MEDS ORDERED: ALBUTEROL 2.5 MG/3 ML NEB SOL NEB PRN ×2 (07:53→15:00)
[2022-06-02 08:53] VITALS: TEMP 97
[2022-06-02] MEDS: INSULIN GLARGINE 100 UNIT/ML SQ SCH (09:00)
[2022-06-02] MEDS: FUROSEMIDE 20 MG TABLET PO SCH (09:26)
[2022-06-02] MEDS: APIXABAN 5 MG TABLET PO SCH (09:26)
[2022-06-02] MEDS: ASPIRIN EC 81 MG TAB PO SCH (09:26)
[2022-06-02] MEDS: DIGOXIN 0.25 MG TABLET PO SCH (09:26)
[2022-06-02] MEDS: AMIODARONE HCL 200 MG TAB PO SCH (09:26)
[2022-06-02] MEDS: ACETAMINOPHEN 325 MG TABLET PO PRN (09:29)
--- NOTE | 2022-06-02 12:25 | P.DS ---
Admission Date: 05/31/22 Discharge Date: 06/02/22 Primary Care Provider: Dr. Guzman Disposition: ROUTINE DISCHARGE Reason for Admission: CHF exacerbation, EDIE/hyper-K Brief History of Present Illness: Volume overload secondary to renal failure Hospital Course: Patient is 72 years of age admitted with volume overload worsening renal function seen by oracle ebs developer at time of discharge he is doing well alert or iented oxygenation satisfactory vital signs satisfactory chest clear cardiovascular system heart sounds normal renal ultrasound no evidence of hydronephrosis Discussed with the oracle ebs developer to hold off on the Jardiance. Use lower dose of Entresto and start patient on scheduled doses of Lasix currently he was using it as needed volume overload on chest x-ray troponins were elevated probably second john to his renal failure Vital Signs/Physical Exam: Temp Pulse Resp BP Pulse Ox 97.0 F 60 18 157/67 H 95 06/02/22 12:00 06/02/22 12:00 06/02/22 12:00 06/02/22 12:00 06/02/22 12:00 Laboratory Data at Discharge: WBC 9.80 K/uL (4.3-10.9) 06/02/22 05:32 Hgb 13.1 g/dL (13.6-17.9) L D 06/02/22 05:32 Hct 38.7 % (39.6-49.0) L 06/02/22 05:32 Plt Count 210 K/uL (152-406) 06/02/22 05:32 Sodium 137 mmol/L (136-145) 06/02/22 05:32 Potassium 4.3 mmol/L (3.5-5.1) 06/02/22 05:32 BUN 75 mg/dL (7-18) H 06/02/22 05:32 Creatinine 3.16 mg/dL (0.55-1.3) H 06/02/22 05:32 Glucose 84 mg/dL (74-106) 06/02/22 05:32 Total Bilirubin 0.3 mg/dL (0.2-1.0) 06/02/22 05:32 AST 21 U/L (15-37) 06/02/22 05:32 ALT 27 U/L (12-78) 06/02/22 05:32 Alkaline Phosphatase 29 U/L (45-117) L 06/02/22 05:32 Triglycerides 115 mg/dL (<150) 05/31/22 03:36 Cholesterol 174 mg/dL (<200) 05/31/22 03:36 HDL Cholesterol 39 mg/dL (40-60) L 05/31/22 03:36 Cholesterol/HDL Ratio 4.46 05/31/22 03:36 Home Medications: Rosuvastatin [Crestor*] 40 mg PO BEDTIME 02/10/17 Magnesium Oxide [Mag 0X*] 400 mg PO BID 03/25/18 carvediloL [Coreg*] 12.5 mg PO BID 03/25/18 Amiodarone HCl [Pacerone] 200 mg PO DAILY 12/09/21 Aspirin [Ecotrin 81 MG] 81 mg PO DAILY 12/09/21 Digoxin [Lanoxin*] 0.125 mg PO DAILY 12/09/21 Dulaglutide [Trulicity] 3 mg PO EVERY 7TH DAY 12/09/21 Fenofibrate [Tricor*] 145 mg PO DAILY 12/09/21 Insulin Aspart [Novolog Flexpen] 17 unit SQ AC 12/09/21 Insulin Degludec [Tresiba Flextouch U-200] 60 unit SQ DAILY 12/09/21 Sodium Zirconium Cyclosilicate [Lokelma] 5 gm PO DAILY 12/09/21 Furosemide [Lasix*] 20 mg PO BID 30 Days #60 tab 06/02/22 Furosemide [Lasix] 20 mg PO BID #60 06/02/22 Sacubitril/Valsartan [Entresto 24 mg-26 mg Tablet] 1 tab PO BID #60 tab 06/02/22 New Medications: Sacubitril/Valsartan [Entresto 24 mg-26 mg Tablet] 1 tab PO BID #60 tab Furosemide [Lasix] 20 mg PO BID #60 Furosemide [Lasix*] 20 mg PO BID 30 Days #60 tab Physician Discharge Instructions: Discussed with Dr. Muñiz patient's oracle ebs developer discharge home on Lasix 20 mg twice a day and Entresto 24 mg a day patient to hold his Jardiance follow-up with oracle ebs developer Diet: ADA Followup: NONE,NONE [Primary Care Provider] -
[2022-06-02 14:16] VITALS: O2SAT 98
[2022-06-02 14:18] VITALS: BP 112/69
--- NOTE | 2022-06-04 18:04 | CON ---
Date of Consultation: 05/31/2022 History Of Present Illness: Mr. Hyde is a 72-year-old white male, who was admitted with congestive h eart failure to the emergency room. He was admitted by Dr. Guzman. The patient has an extensive [facility] medical history including triple bypass surgery, stents, pacemaker, right shoulder replacement, hy pertension, diabetes, atrial fibrillation, dyslipidemia. He has had multiple congestive heart failur e exacerbations. He sees me locally and he sees the congestive heart failure team in [place] that do usually serial echos on him. He came in with PND, orthopnea, pedal edema. No palpitation or syncop e. Denied any fever or chills. Denied any chest pain. Past Medical History: As stated above. Allergies: HE IS ALLERGIC TO DEMEROL, XARELTO, AND LISINOPRIL. Medications: He is taking Eliquis, Entresto, amiodarone, carvedilol, Tricor, Crestor, magnesium, dig oxin, Lasix, aspirin, Tresiba, and insulin. Physical Examination: Vital Signs: His blood pressure was 120/60, pulse is 64. He was in a paced rhythm. O2 saturation w as 100%. He was afebrile. Respiratory rate was 18. HEENT: Negative. Neck: Supple with no bruit, lymphadenopathy, JVD, or thyromegaly. Chest: Revealed some rales both bases. Cardiac: Revealed S3 gallops, paced rhythm. No murmurs or rubs. Abdomen: Benign. Extremities: Revealed 1+ edema to the knee. Skin: Dry and intact. Neurologic: He was nonfocal. Pulses were present distally bilaterally. Diagnostic Data: His glucose was 500. His creatinine is 3.51. White count was 15,000, hemoglobin 1 1.3. Troponin was 77.3. Chest x-ray was consistent with congestive heart failure. EKG showed sinus rhythm with left bundle-branch block. Impression And Plan: 1.Acute on chronic systolic congestive heart failure exacerbation. The patient has already had a pa cemaker and defibrillator and he is already on Entresto and Coreg. We may have to reconsider his Ent ericka. Considering his renal failure, we will discuss the case further with Nephrology. We may have to stick with Lasix, Aldactone, and carvedilol and I will have him discuss this further with his con gestive heart failure team in [facility]. Diurese him gently. At one point, we may have to decide on possible dialysis down the road. 2.His other problems include atrial fibrillation. He is on Eliquis and amiodarone. He is in sinus rhythm. I will continue those. 3.Dyslipidemia, well controlled. 4.Diabetes, very poorly controlled. I believe that to Internal Medicine physician. His other probl ems include coronary artery disease, status post coronary artery bypass graft and stent. This is sta ble at this point. Echocardiogram is pending. NB/MODL Voice ID: [id number] Report ID: [id number]
--- NOTE | 2022-06-04 18:46 | PN ---
Date of Progress Note: 06/01/2022 Mr. Hyde came in with acute on chronic systolic congestive heart failure exacerbation, acute renal fa ilure, hyperglycemia with sugars in the 500. Today, his vital signs are stable. He is afebrile. He is in sinus rhythm. He has improved. His breathing better. Echocardiogram showed severe global hy pokinesis with an ejection fraction of 26%. His last creatinine has improved, back to baseline at 3. 16. His glucose is back to 151. Presently, he is on inhalers, amiodarone, Eliquis, aspirin, Lipitor , digoxin, fenofibrate, Lasix, insulin, carvedilol, and rosuvastatin. Entresto has been held and paul t should be discontinued. We will continue to follow. CHRISTINA/APARNA Voice ID: [id number] Report ID: [id number]
--- NOTE | 2022-06-04 18:46 | PN ---
Date of Progress Note: 06/02/2022 Mr. Hyde had came in and had been followed for acute on chronic systolic congestive heart failure, ej ection fraction of 26%, status post pacemaker and defibrillator. His creatinine has worsened and Ent ericka has been discontinued. He has a history of CAD, status post CABG, stent, AICD and defibrillato r. He is doing well today. He is asymptomatic. He has no edema. No rales. His vital signs are st able. He is afebrile. Troponin was mildly elevated at 77 consistent with congestive heart failure. His last glucose was 176. Last creatinine was 3.16. I am comfortable with him going home on all hi s home medications except for the Entresto and I will see him in the office in the next few days. CHRISTINA/APARNA Voice ID: [id number] Report ID: [id number]
== END 2022-06-02 15:15 | disposition home or self-care (01) | DRG 682 ==
LOC: ER 21:36 → ERHOLD 05-31 00:17 → 4TH 06-01 11:34
PROVIDERS: ADMIT Internal Medicine; ATTEND Internal Medicine Sleep Medicine
PROC: 5A09457 Assistance with Respiratory Ventilation, 24-96 Consecutive Hours, Continuous Positive Airway Pressure (ICD-10-PCS; principal; 2022-05-31)
DX: N17.9 Acute kidney failure, unspecified (principal); I50.23 Acute on chronic systolic (congestive) heart failure; I13.0 Hypertensive heart and chronic kidney disease with heart failure and stage 1 through stage 4 chronic kidney disease, or unspecified chronic kidney disease; I42.9 Cardiomyopathy, unspecified; E87.70 Fluid overload, unspecified; N18.4 Chronic kidney disease, stage 4 (severe); E11.22 Type 2 diabetes mellitus with diabetic chronic kidney disease; E11.65 Type 2 diabetes mellitus with hyperglycemia; I25.10 Atherosclerotic heart disease of native coronary artery without angina pectoris; E78.5 Hyperlipidemia, unspecified; N20.0 Calculus of kidney; E87.5 Hyperkalemia; I48.91 Unspecified atrial fibrillation; T50.1X6A Underdosing of loop [high-ceiling] diuretics, initial encounter; R06.89 Other abnormalities of breathing; Z79.4 Long term (current) use of insulin; Z79.01 Long term (current) use of anticoagulants; Z88.8 Allergy status to other drugs, medicaments and biological substances; Z88.5 Allergy status to narcotic agent; Z95.5 Presence of coronary angioplasty implant and graft; Z79.82 Long term (current) use of aspirin; Z91.14 Patient's other noncompliance with medication regimen; Z96.611 Presence of right artificial shoulder joint; Z95.810 Presence of automatic (implantable) cardiac defibrillator; Z79.899 Other long term (current) drug therapy; Z20.822 Contact with and (suspected) exposure to COVID-19
CPT/HCPCS: 36415; 51702; 71045; 76770; 80048; 80053; 80061; 80162; 82550; 82805; 82947; 83880; 84132; 84484; 85025; 87811; 90732; 93005; 93306; 94640; 94660; 94760; 99285; J0610; J1815; J1940

== ENCOUNTER 2022-06-26 11:33 | Inpatient (IN) | payer OTHER ==
--- OUTSIDE RECORDS SUMMARY | 2022-06-26 11:46 | XMS REPORT | Continuity of Care Document ---
:1950 Author Organization [facility] t Address [address] [place] [address] Care Team Providers Name Role Phone Kennedi Ford MD Primary Care Physician Paula Guzman Attending Clinician Unavailable SALVADOR MANJARREZ Attending Clinician Unavailable VETO UGARTE Attending Clinician Unavailable Georgina Dominguez MD Attending Clinician Alba Wylie MD Attending Clinician [phone] Jasiel Khoury MA Attending Clinician Unavailable Val Deal RN Attending Clinician Unavailable Angely Naidu MD Attending Clinician Sy Rae POT FLUXER, Irma Attending Clinician Melba Jo MA Attending Clinician Unavailable Dusty Vásquez MD Attending Clinician [phone] Silva Swift RN Attending Clinician Unavailable Sera Santos MD Attending Clinician Arvind Bejarano MA Attending Clinician [...] Unavailable SAUL TARIQ Attending Clinician Unavailable ALBA WYLIE Admitting Clinician Unavailable KRYSTAL HERNANDEZ Admitting Clinician [...] Added automatic ally from request for surgery [id number] Claudicati Claudicati Disease Active Overview : Methodi on on 04-[address] 00:00: g of this Hospita 00 note l might be different from the original. Added automatic ally from request for surgery [id number] Aortoiliac Aortoiliac Disease Active M ethodi obstructio obstructio 03-15 st n n 00:00: Hospita 00 l [...] Hospi ta involving involving 00 note l nondalton nondalton might be coronary coronary different artery artery from the original. 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 Doing excellent . Defers MRx.OTC readers. Pseudophak Pseudophak Disease Active 2016-09 Overview : [...] al involving involving 00 note Cent er nondalton nondalton might be coronary coronary different artery artery from the original. S/p CABG Stage 3 Stage 3 Disease Active 2016-[address] [facility] [address] [facility] kidney 00:[facility]: Medical disease disease 00 Center Chronic Chronic Disease Active 2016-09 Overview: [facility] combined combined Formattin Flynn es systolic systolic 00:00: g of this Med ical and and 00 note Center diastolic diastolic might be CHF CHF different (congestiv (congestiv from the e heart e heart original. failure) failure) S/p AICD Smoker Smoker Disease Active 2016-[address] [facility] 00 [facility] Type 2 Type 2 Disease Active 2016-09 [facility] diabetes diabetes 0 [facility] mellitus mellitus 00:00: Medica l 00 Center Diabetes Diabetes Disease Active 2016-09 Last [facility]o di mellitus mellitus [address] without without 00:00: t & Plan: Hospi ta complicati complicati 00 Formattin l on on g of this note might be different from the original. No diabetic retinopat hy. Importanc e of good blood sugar control discussed . Annual exams recommend ed with a [facility]lin kang eye care provider. Letter sent Dr. Paula Gumzan. 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 Last Assessmen t & Plan: Visually significa nt. The risks/manjit efits/alt ernatives of cataract surgery were discussed with the patient. He understan ds and will proceed with schedulin g phaco. Left Left Problem Active UT shoulder shoulder [...] Lisinopr Propensi Active UT il ty to -02 Health adverse 00:00: reaction 00 s Rivaroxa Allergy Active UT ban to 01-16 Health substanc 00:00: e 00 Lisinopr Propensi Active Hives 2016-09 Method i il ty to 0-26 st adverse 00:00: Hospita reaction 00 l s to drug Rivaroxa Propensi Active Hives 2016-09 Method i ban ty to 0-26 st adverse 00:00: Hospita reaction 00 l s to drug MEPERIDI Allergy Active 2016-[address] [place] 0[facility] 00:[facility]: Medical 00 Center LISINOPR Allergy Active 2016-[address] [place] 0-26 [facility] 00:[facility]: Medical 00 Center RIVAROXA Allergy Active 2016-[address] BAN 0-26 [facility] 00:[facility]: Medical 00 Center Meperidi Propensi Active 2016-[address] ne ty to 0-26 [facility] adverse 00:00: Medical reaction 00 Center s Lisinopr Propensi Active 2016-[address] il ty to 0-26 [facility] adverse 00:00: Medical reaction 00 Center s Rivaroxa Propensi Active 2016-[address] ban ty to 0-26 [facility] adverse 00:00: Medical reaction 00 Center s Meperidi Propensi Active Hives Method i ne ty to 05-26 st adverse 00:00: Hospita reaction 00 l s to drug Demerol Allergy Active UT SOLN to drug Physici (finding ans ) lisinopr Allergy Active UT il to drug Physici (finding ans ) Xarelto Allergy Active UT TABS to drug Physici (finding ans ) Family History Family Member Diagnosis Comments Start Date Stop Date Source Natural father No Known Problems Met [facility] Natural mother No Known Problems Met [facility] Natural sister Diabetes [facility] Social History Social Habit Start Date Stop Date Quantity Comments Source Exposure to Not sure [facility] SARS-CoV-2 (event) Cigarettes smoked 2022-06-14 2022-06-[address] current (pack per 00:00:00 00:00:00 Hospita l day) - Reported Cigarette 2022-06-14 2022-06-14 [facility]:00:00 Hospital Tobacco use and 2022-06-14 2022-06-14 Former smokeless [facility] exposure 00:00:00 00:00:00 tobacco user Hospital Alcohol intake 2022-06-14 2022-06-14 Current [facility] 00:[facility]:00 00:00:00 non-drinker of Hospital alcohol (finding) Tobacco Comment 2022-06-14 2022-06-14 50 YEARS [facility] 00:[facility] 00:[facility]:00 Hospital History of tobacco 1966-09-17 2017-07-27 Current smoker [facility] use 00:00:00 00:00:00 Hospital Sex Assigned At [birth year] [facility] 00:[facility] Smoking Status Start Date Stop Date Source Tobacco smoking consumption [facility] Ex-smoker 2022-06-14 00:00:00 2022-06-14 [facility]:00:[facility] Medications Ordered Filled Start Stop Current Ordering Indication Dosage Frequency Signature Comments Components Source Medication Medication Date Date Medication? Clinician (SIG) Name Name Donnell Avendaño 2021-09 Yes [id number] TAKE 1 M ethodi mg tablet 0-[address] 00:00: MOUTH Hospita 00 TWICE A l DAY nitroglycer 2022-[address] 0.4 M ethodi in 9-[address] (NITROSTAT) 09:03: the tongue Hospita 0.4 MG SL 28 every 5 l tablet (five) minutes as needed for chest pain. aspirin 2022-0 Yes 81mg QD Take 81 mg Meth kimberly (ECOTRIN) 9-[address] 81 MG 09:03: daily. Hospita enteric 28 l coated tablet magnesium 2-0 Yes 400mg Q.5D Take 400 Met hodi oxide 9-[address] (MAG-OX) 09:03: mouth 2 Hospit a 400 mg 28 (two) l (241.3 mg times a magnesium) day. tablet empaglifloz 2-0 Yes 10mg QD Take 10 mg Methodi in 9-[address] (Jardiance) 09:03: daily. Hosp chau 10 mg 28 l tablet tablet nitroglycer 2021-[address] 0.4 M ethodi in 8-[address] (NITROSTAT) 18:19: the tongue Hospita 0.4 MG SL 34 every 5 l tablet (five) minutes as needed for chest pain. aspirin 2-0 Yes 81mg QD Take 81 mg Meth kimberly (ECOTRIN) 8-[address] 81 MG 18:19: daily. Hospita enteric 34 l coated tablet magnesium 2-0 Yes 400mg Q.5D Take 400 Met hodi oxide 8-[address] (MAG-OX) 18:19: mouth 2 Hospit a 400 mg 34 (two) l (241.3 mg times a magnesium) day. tablet empaglifloz 2022-0 Yes 10mg QD Take 10 mg Methodi in 8-[address] (Jardiance) 18:19: daily. Hosp chau 10 mg 34 l tablet tablet Lokelma 5 2021- Yes [id number] USE 1 Methodi gram powder 04-[address] in packet 00:00: DIRECTED Hosp chau packet 00 EVERY DAY l Lokelma 5 2021-0 Yes [id number] USE 1 [facility]i gram powder 7-[address] in packet 00:00: DIRECTED Hosp chau packet 00 EVERY DAY l sacubitriL- 2022- No 1{tbl} Q.5D Take 1 M ethodi valsartan 03-[address] (Entresto) 00:00: 04:59 mouth 2 Hos chloe 49-51 mg 00 :00 (two) l tablet per times a tablet day. furosemide 2022- No 40mg Take 1 Meth kmiberly (LASIX) 40 03-22 tablet (40 st mg tablet 00:00: 04:59 mg total) Ho spita 00 :00 by mouth l as needed (weight gain more than 3 pounds in a 24 hour period). sacubitriL- 2022- No 1{tbl} Q.5D Take 1 M ethodi valsartan 03-[address] (Entresto) 00:00: 04:59 mouth 2 Hos chloe 49-51 mg 00 :00 (two) l tablet per times a tablet day. furosemide 2022- No 40mg Take 1 Meth kimberly (LASIX) 40 03-22 tablet (40 st mg tablet 00:00: 04:59 mg total) Ho spita 00 :00 by mouth l as needed (weight gain more than 3 pounds in a 24 hour period). carvediloL Yes TAKE 1 Metho di (COREG) 6-[address] 12.5 MG 00:00: MOUTH Hospita tablet 00 TWICE A l DAY WITH FOOD carvediloL Yes TAKE 1 Metho di (COREG) 6-[address] 12.5 MG 00:00: MOUTH Hospita tablet 00 TWICE A l DAY WITH FOOD fenofibrate Yes TAKE 1 Meth kimberly (TRICOR) 6-[address] 145 MG 00:00: MOUTH Hospita tablet 00 EVERY DAY l fenofibrate Yes TAKE 1 Meth kimberly (TRICOR) 6-[address] 145 MG 00:00: MOUTH Hospita tablet 00 EVERY DAY l Entresto 2021- No [id number] TAKE 1 Methodi 97-103 mg 6-04-[address] tablet per 00:00: 00:00 MOUTH Hospi ta tablet 00 :00 TWICE A l DAY Entresto 2021-2021- No [id number] TAKE 1 [facility]i 97-103 mg -12 08- [address] tablet per 00:00: 00:00 MOUTH Hospi ta tablet 00 :00 TWICE A l DAY amIODarone 2021-0 Yes [id number] TAKE 1 [facility]i (PACERONE) 5-[address] 200 MG 00:00: MOUTH Hospita tablet 00 EVERY DAY l amIODarone 2021- Yes [id number] TAKE 1 [facility]i (PACERONE) 5-[address] 200 MG 00:00: MOUTH Hospita tablet 00 EVERY DAY l rosuvastati Yes TAKE 1 Meth kimberly n (CRESTOR) 4-[address] 40 MG 00:00: MOUTH Hospita tablet 00 EVERY DAY l AT NIGHT rosuvastati Yes TAKE 1 Meth kimberly n (CRESTOR) 4-[address] 40 MG 00:00: MOUTH Hospita tablet 00 EVERY DAY l AT NIGHT furosemide 2021- No 40mg QD Take 1 Meth kimberly (LASIX) 40 09-21- tablet (40 st mg tablet 00:00: 00:00 mg total) Ho spita 00 :00 by mouth l daily. furosemide 2021- No 40mg QD Take 1 Meth kimberly (LASIX) 40 09-21-06 tablet (40 st mg tablet 00:00: 00:00 mg total) Ho spita 00 :00 by mouth l daily. carvediloL 2020-09- No TAKE 1 Meth kimberly (COREG) 11-07- TABLET BY st 12.5 MG 00:00: 00:00 MOUTH Hospita tablet 00 :00 TWICE A l DAY WITH FOOD carvediloL 2020-09- No TAKE 1 Meth kimberly (COREG) 11-07- TABLET BY st 12.5 MG 00:00: 00:00 MOUTH Hospita tablet 00 :00 TWICE A l DAY WITH FOOD Eliquis 5 2020-09 Yes [id number] TAKE 1 M ethodi mg tablet 2-[address] 00:00: MOUTH Hospita 00 TWICE A l DAY Eliquis 5 2020-09- No [id number] TAKE 1 [facility] mg tablet 10-[address] 00:00: 00:00 MOUTH Hospita 00 :00 TWICE A l DAY digOXIN 2020-09- No [id number] 125ug QD Take 1 M ethodi (LANOXIN) 0-04 10-[address] 125 mcg 00:00: 04:59 (125 mcg Hospi ta (0.125 mg) 00 :00 total) by l tablet mouth daily. digOXIN 2020-09- No [id number] 125ug QD Take 1 M ethodi (LANOXIN) 0-04 10-[address] 125 mcg 00:00: 04:59 (125 mcg Hospi ta (0.125 mg) 00 :00 total) by l tablet mouth daily. sacubitriL- 2020-09- No 1{tbl} Q.5D Take 1 M ethodi valsartan 0-04 08-[address] (Entresto) 00:00: 00:00 mouth 2 Hos chloe 49-51 mg 00 :00 (two) l tablet per times a tablet day. sacubitriL- 2020-09- No 1{tbl} Q.5D Take 1 M ethodi valsartan 0-04 08-[address] (Entresto) 00:00: 00:00 mouth 2 Hos chloe 49-51 mg 00 :00 (two) l tablet per times a tablet day. furosemide 2021- No 40mg Q2D Take 1 Meth kimberly (LASIX) 40 8-05 tablet (40 st mg tablet 00:00: 00:00 mg total) Ho spita 00 :00 by mouth l every other day. furosemide 2021- No 40mg Q2D Take 1 Meth kimberly (LASIX) 40 8- 01-05 tablet (40 st mg tablet 00:00: 00:00 mg total) Ho spita 00 :00 by mouth l every other day. sodium 2021- No [id number] 5g QD Take 5 g Methodi zirconium 04-13 [address] cyclosilica 00:00: 00:00 daily. Hos chloe te 00 :00 l ([facility]) 5 gram powder in packet packet sodium 2021- No [id number] 5g QD Take 5 g Methodi zirconium 04-[address] cyclosilica 00:00: 00:00 daily. Hos chloe te 00 :00 l (Lokelma) 5 gram powder in packet packet amIODarone 2021- No [id number] 200mg QD Take 1 [facility]i (PACERONE) 04-[address] 200 MG 00:00: 00:00 (200 mg Hospita tablet 00 :00 total) by l mouth daily. amIODarone 2021- No [id number] 200mg QD Take 1 [facility] (PACERONE) 04-[address] 200 MG 00:00: 00:00 (200 mg Hospita tablet 00 :00 total) by l mouth daily. albuterol 2021- No [id number] 2.5mg Q24H Take 0.5 Methodi sulfate 04-13 9100 mL (2.[address] (PROVENTIL) 00:00: 00:00 total) by Hospita 2.5 mg/0.5 00 :00 nebulizati l mL solution on daily for as needed nebulizatio for n wheezing (SOB) for up to 15 doses. albuterol 2021- No [id number] 2.5mg Q24H Take 0.5 Methodi sulfate 04-13 9100 mL (2.[address] (PROVENTIL) 00:00: 00:00 total) by Hospita 2.5 mg/0.5 00 :00 nebulizati l mL solution on daily for as needed nebulizatio for n wheezing (SOB) for up to 15 doses. digOXIN 2020- No [id number] TAKE 1 Me [facility]odi (LANOXIN) 04-04 10- TABLET BY st 125 mcg 00:00: 00:00 [...] a st gauge x 00:00: day Hospita " l needle insulin Yes 30U QD Inject 0.3 Meth [...] a st gauge x 00:00: day Hospita l needle fenofibrate 2021- No 145mg QD Take 1 Me thodi (TRICOR) -28 06-[address] 145 MG 00:00: 00:00 (145 mg Hospita tablet 00 :00 total) by l mouth daily. fenofibrate 2021- No 145mg QD Take 1 Me [facility]odi (TRICOR) 5-28 06-[address] 145 MG 00:00: 00:00 [...] Take 1 UT -metFORMIN 5-19 tablet by [facility] HCl 17:39: mouth 1 2.5-1000 MG [...] Take 1 UT -metFORMIN 5-19 tablet by [facility] HCl 17:39: mouth 1 2.5-1000 MG [...] Take 1 UT -metFORMIN 5-19 tablet by [facility] HCl 17:39: mouth 1 2.5-1000 MG [...] 17:39: (one) time 38 each day. semaglutide 2020-0 Yes Inject UT (Ozempic, 1 [...] 39 (one) time tablet each day. nitroglycer 1-[address] 0.4 U T in 5-19 mg under Health (Nitrostat) 12:39: the tongue 0.4 MG SL 39 every 5 tablet (five) minutes if needed. insulin 2020-0 Yes Inject UT degludec 5-19 under the Health (Tresiba) 12:39: skin. 100 UNIT/ML 39 injection linaGLIPtin 1-0 [...] MG 5-18 Health tablet 00:00: 00 Entresto 0 Yes UT 97-103 MG 5-18 Health tablet 00:00: 00 Entresto 0 Yes UT 97-103 MG 5-18 Health tablet [...] -acetaminop 5-06 HRS PRN Healt h hen ([place]) 00:00: PAIN 5-325 MG 00 tablet HYDROcodone Yes 1-2 PO Q 6 UT -acetaminop 5-06 HRS PRN Healt h hen ([place]) 00:00: PAIN 5-325 MG 00 tablet HYDROcodone 2021-0 Yes 1-2 PO Q 6 UT -acetaminop 5-06 HRS PRN Healt h hen ([place]) 00:00: PAIN 5-325 MG 00 tablet HYDROcodone 2020-0 Yes 1-2 PO Q 6 UT -acetaminop 5-06 HRS PRN Healt h hen ([place]) 00:00: PAIN 5-325 MG 00 tablet HYDROcodone 2020-0 Yes 1-2 PO Q 6 UT -acetaminop 5-06 HRS PRN Healt h hen ([place]) 00:00: PAIN 5-325 MG 00 tablet Eliquis [...] Heal 00:00: (two) 00 times a day. dulaglutide 2020- Yes 3mg Q7D 3 mg once M ethodi (TRULICITY) 5-[address] 3 mg/0.5 mL 00:00: Hospit a subcutaneou 00 l s pen Trulicity 2020-0 Yes .75mg Inject UT 0.75 [...] pen-injecto (one) time r per week. Trulicity 0 Yes .75mg Inject UT 0.75 5-03 0.75 mg Health MG/0.5ML 00:00: under the solution 00 skin 1 pen-injecto (one) time r per week. Trulicity 0 Yes .75mg Inject UT 0.75 5-03 0.75 mg Health MG/0.5ML 00:00: under the solution 00 skin 1 pen-injecto (one) time r per week. dulaglutide Yes 3mg Q7D 3 mg once M ethodi (TRULICITY) 5-[address] 3 mg/0.5 mL 00:00: Hospit a subcutaneou 00 l s pen tiZANidine Yes 2mg QD Take 2 mg [...] 00 EVERY DAY AT NIGHT rosuvastati 2020-0 Yes TAKE 1 UT n (Crestor) 4-23 [...] tablet 00 EVERY DAY AT NIGHT rosuvastati 2021- No 40mg QD Take 1 Met hodi n (CRESTOR) 4-07 01- tablet (40 s t 40 MG 00:00: 00:00 mg total) Hospit a tablet 00 :00 by mouth l nightly. rosuvastati 2021- No 40mg QD Take 1 Met hodi n (CRESTOR) 4-07 01- tablet (40 s t 40 MG 00:00: [...] 12.5mg Q.5D Take 1 [facility]odi (COREG) 2- 12- tablet st 12.5 MG 00:00: 00:00 (12.5 mg Hospi ta tablet 00 :00 total) by l mouth 2 (two) times a day with meals. carvediloL 2020- No 12.5mg Q.5D Take 1 Me thodi (COREG) 2-04 28- tablet st 12.5 MG 00:00: 00:00 (12.5 mg Hospi ta tablet 00 :00 total) by l mouth 2 (two) times a day with meals. Eliquis 5 2019-09- No [id number] TAKE 1 [facility]i mg tablet 2- TABLET BY st 00:00: 00:00 MOUTH Hospita 00 :00 TWICE A l DAY Eliquis 5 2019-09- No [id number] TAKE 1 [facility]i mg tablet 230 - TABLET BY st 00:00: 00:00 MOUTH Hospita 00 :00 TWICE A l DAY Ozempic, 1 2019-09 Yes INJECT UT MG/DOSE, [...] A WEEK ( SUN,SUN AND SUNDAY) bumetanide 2020-1 Yes TAKE 1 UT (Bumex) 1 0-03 TABLET BY Healt h MG tablet 00:00: MOUTH 3 00 TIMES A WEEK ( SUN,SUN AND SUNDAY) bumetanide 2020- Yes TAKE 1 UT (Bumex) 1 0-03 TABLET BY Healt h MG tablet 00:00: MOUTH 3 00 TIMES A WEEK ( SUN,SUN AND SUNDAY) bumetanide 2020- Yes TAKE 1 UT (Bumex) 1 0-03 TABLET BY Healt h MG tablet 00:00: MOUTH 3 00 TIMES A WEEK ( SUN,SUN AND SUNDAY) bumetanide 2020- Yes TAKE 1 UT (Bumex) 1 0-03 TABLET BY Healt h MG tablet 00:00: MOUTH 3 00 TIMES A WEEK ( SUN,SUN AND SUNDAY) metoclopram 2020-0 Yes TAKE 3 UT jassi 9-03 TABLETS BY Libox (Reglan) 10 00:00: MOUTH MG tablet 00 [...] PER YOUR COLONOSCOP Y PREP PACKET metoclopram 2020- Yes TAKE 3 UT jassi 9-03 TABLETS BY Health (Reglan) 10 00:00: MOUTH MG tablet 00 DIRECTED USE DIRECTED PER YOUR COLONOSCOP Y PREP PACKET metoclopram 2020-0 Yes TAKE 3 UT jassi 9-03 TABLETS BY Health (Reglan) 10 00:00: MOUTH MG tablet 00 DIRECTED USE DIRECTED PER YOUR COLONOSCOP Y PREP PACKET Ozempic Ozempic 2018- 2020- No [facility] as Commo n 12-27 [place] directed Spirit 00:00: 00:00 - [facility] 00 :00 [facility] Tresiba Tresiba 2018- 2019- No Elizabeth 70 units C ommon FlexTouch FlexTouch 12-27 04 [place] in am and Spirit 00:00: 00:00 increase - [facility] 00 :[address] [facility] 3 [facility] days until Medical fasting Center glucose less 120 max 70 units daily ELIQUIS 5 2017-0 Yes TAKE [address] MG tablet 9-20 TABLET (5 [facility] 00:00: MG TOTAL) Medical 00 BY MOUTH 2 Center (TWO) TIMES DAILY. ENTRESTO 2018-0 Yes TAKE [address] 24-26 mg 7-19 TABLET BY [facility] Tab 00:00: MOUTH 2 Medical 00 (TWO) Center TIMES DAILY. linagliptin 2018-0 Yes type 2 1{tbl} QD Take [address] -metformin 6-29 diabetes tablet by [facility] (JENTADUETO 08:04: mellitus mouth M edical ) 2.5-1,000 43 daily. Center mg Tab glimepiride 2017-0 Yes 2mg QD Take [address] (AMARYL) 2 6-29 by mouth [facility] MG tablet 08:04: every Medical 43 evening . Center digoxin 2017-0 Yes TAKE [address] (LANOXIN) 6-05 TABLET [facility] 0.125 MG 00:00: (125 MCG Medic al tablet 00 TOTAL) BY Center MOUTH DAILY. magnesium 2017-0 Yes TAKE [address] oxide 4-27 [...] Yes Elizabeth 1 tablet Co mmon 2-20 [place] [facility] 00:00: - [facility] Amiodarone Amiodarone 2017-0 Yes Elizabeth 1 tablet Common HCl HCl 2-20 [place] [facility] 00:00: - [facility] Bumetanide Bumetanide 2017-0 Yes Elizabeth as Common 2-20 [place] directed Spirit 00:00: - [facility] rosuvastati 2016-09 Yes 40mg QD Take [address] [...] Carvedilol Carvedilol Yes Elizabeth as Co mmon [place] directed [facility] Crestor Crestor Yes Elizabeth 1 tablet Comm on [place] [facility] Nitroglycer Nitroglycer Yes Elizabeth not Common in in [place] defined [facility] Tricor Tricor Yes Elizabeth 1 tablet Common [place] with food [facility] Albuterol Albuterol Yes Elizabeth 3 ml as C ommon Sulfate Sulfate [place] needed Spi [facility] Eliquis Eliquis Yes Elizabeth 1 Common [place] [facility] Entresto Entresto Yes Elizabeth one Common 97/103mg 97/103mg [place] [facility] Glimepiride Glimepiride Yes Elizabeth TAKE 1 Common [place] TABLET AT Spirit BEDTIME - [facility] Lancets Lancets Yes Elizabeth one Common Super Thin Super Thin [place] [facility] Glucometer Glucometer Yes Elizabeth one Co mmon [place] [facility] Aspir-81 Aspir-81 Yes Elizabeth 1 tablet Co mmon [place] [facility] NovoFine NovoFine Yes Elizabeth as Common Plus Plus [place] directed [facility] Immunizations Ordered Immunization Filled Immunization Date Status Commen ts Source Name Name ELSA HERNANDEZ 2021-08-03 Completed [facility] t MRNA VACCINATION 00:00:00 [facility] COVIDAditya 2021-08-03 Completed [facility] t MRNA VACCINATION 00:00:00 [facility] 2021-05-26 Completed [facility] 00:[facility]:00 [facility] 2021-05-26 Completed [facility] 00:00:00 [facility] SANTIAditya 2021-01-15 Completed Method[facility] t MRNA VACCINATION 00:00:00 [facility] AYUSHIDAditya 2021-01-15 Completed Method[facility] t MRNA VACCINATION 00:00:00 [facility] AYUSHIDAditya 2020-12-16 Completed Method[facility] t MRNA VACCINATION 00:00:00 [facility] AYUSHIDAditya 2020-12-16 Completed Methodis t MRNA VACCINATION 00:00:00 [facility]ushidAditya [facility] 2020[facility] SARS-CoV-2 00:00:00 Vaccination Covid-19 Elsa 2020-12-04 [facility] SARS-CoV-2 00:00:00 Vaccination Covid[facility]19 [facility] 2020-[facility] SARS-CoV-2 00:00:00 Vaccination Covid-19 Elsa 2020-12-04 [facility] SARS-CoV-2 00:00:00 Vaccination Covid-19 Elsa 2020-12-04 [facility] SARS-CoV-2 00:00:00 Vaccination Covid-19 Elsa 2020-10-26 [facility] SARS-CoV-2 00:00:00 Vaccination [facility] COVID-19 2020-10-26 Completed Methodis t MRNA VACCINATION 00:00:00 [facility] Covid19 Moderna 2020-10-26 [facility] SARS-CoV-2 00:00:00 Vaccination Covid-19 Moderna 2020-10-26 [facility] SARS-CoV-2 00:00:00 Vaccination Covid-19 Moderna 2020-10-26 [facility] SARS-CoV-2 00:00:00 Vaccination Covid-19 Moderna 2020-10-26 [facility] SARS-CoV-2 00:00:00 Vaccination MODERNA COVID-19 2020-10-26 Completed Methodis t MRNA VACCINATION 00:00:00 [facility] Covid-19 Isabela 2020-09-29 [facility] SARS-CoV-2 00:00:00 Vaccination MODERNA COVID-19 2020-09-29 Completed Methodis t MRNA VACCINATION 00:00:00 [facility] Covid-19 Isabela 2020-09-29 Completed [facility] SARS-CoV-2 00:00:00 Vaccination Covid-19 Isabela 2020-09-29 [facility] SARS-CoV-2 00:00:00 Vaccination Covid-19 Isabela 2020-09-29 [facility] SARS-CoV-2 00:00:00 Vaccination Covid-19 Isabela 2020-09-29 [facility] SARS-CoV-2 00:00:00 Vaccination MODERNA COVID-19 2020-09-29 Completed Methodis t MRNA VACCINATION 00:00:00 [facility] FLUCELVAX QUAD PF 2020-06-[address] 00:00:00 [facility] FLUCELVAX QUAD PF 2020-06-[address] 00:00:00 [facility] FLUAD PF 2019-06-12 Completed [facility] 00:00:00 [facility] FluAD FluAD 2019-06-12 Completed [facility] - 00:00:00 [facility] FLUAD PF 2019-06-12 Completed [facility] 00:[facility] Influenza, 2018-05-24 [facility] injectable, MDCK, 00:00:00 preservative free, quadrivalent FLUCELVAX QUAD PF 2018-05-[address] 00:00:00 Hospital Influenza, 2018-05-24 [facility] injectable, MDCK, 00:00:00 preservative free, quadrivalent Influenza, 2018-05-24 Completed [facility] injectable, MDCK, 00:00:00 preservative free, quadrivalent Influenza, 2018-05-24 Completed [facility] injectable, MDCK, 00:00:00 preservative free, quadrivalent Influenza, 2018-05-24 Completed [facility] injectable, MDCK, 00:00:00 preservative free, quadrivalent FLUCELVAX QUAD PF 2018-05-[address] [facility] Influenza, seasonal, 2017-07-05 [facility] inject[facility], 00:[facility]:00 preservative free Influenza (IM) 2017-07-05 [facility] Influenza, seasonal, 2017-07-05 [facility] inject[facility], 00:00:00 preservative free Influenza, seasonal, 2017-07-05 [facility]pleted [facility] inject[facility], 00:00:00 preservative free Influenza, seasonal, 2017-07-05 [facility], 00:00:00 preservative free Influenza, seasonal, 2017-07-05 [facility]pleted [facility], 00:00:00 preservative free Influenza (IM) 2017-07-05 Completed [facility] Influenza TIV (IM) 2017-07-[address] [facility] Vital Signs Vital Name Observation Time Observation Value Comments Source Systolic blood 2022-06-14 13:59:00 121 mm[Hg] [facility] pressure Diastolic blood 2022-06-14 13:59:00 72 mm[Hg] [facility] pressure Heart rate 2022-06-14 13:59:00 70 /min [facility] Body temperature 2022-06-14 13:59:00 36.67 [facility]ta [facility] Body height 2022-06-14 13:59:[address] [facility] Body weight 2022-06-14 13:59:[address] [facility] BMI 2022-06-14 13:59:00 32.61 kg/m2 [facility] Oxygen saturation in 2022-06-14 13:59:00 98 /min [facility] Arterial blood by Pulse oximetry Respiratory rate 2022-04-27 20:51:00 15 /min [facility] Systolic blood 2022-04-27 20:51:00 128 mm[Hg] Method [facility] pressure Diastolic blood 2022-04-27 20:51:00 61 mm[Hg[facility] pressure Heart rate 2022-04-27 20:51:00 63 /min [facility] Body temperature 2022-04-27 20:51:00 36.5 Roberta [facility] Oxygen saturation in 2022-04-27 20:30:00 97 /min [facility] Arterial blood by Pulse oximetry Body height 2022-04-27 13:26:[address] [facility] Body weight 2022-04-27 13:26:[address] [facility] BMI 2022-04-27 13:26:00 33.19 kg/m2 [facility] Systolic blood 2020-10-07 10:03:00 119 mm[Hg] [facility] pressure Diastolic blood 2020-10-07 10:03:00 63 mm[Hg] [facility] Heart Rate 2020-10-07 10:03:00 95 /min [facility] Procedures Procedure Date / Time Performing Clinician Source Performed PV PHYSIOLOGIC ARTERIAL 2022-06-14 13:22:29 [facility] LOWER EXTREMITY COMPLETE Raj POC GLUCOSE 2022-04-27 21:28:00 [facility] Raj POC GLUCOSE 2022-04-27 19:25:00 [facility] Raj ACTIVATED CLOTTING TIME 2022-04-27 18:22:00 [facility] Raj POC ARTERIAL BLOOD GAS, 2022-04-27 18:09:00 [facility] CORRECTED AND LYTES Raj ACTIVATED CLOTTING TIME 2022-04-27 17:44:00 [facility] 2022-04-27 17:26[facility] AN ELECTIVE 2022-04-27 16:55:00 Angely Naidu [facility] ENDOTRACHEAL AIRWAY AORTOGRAPHY, POSSIBLE 2022-04-27 16:45:00 [facility] ANGIOPLASTY Raj POTASSIUM, SYRINGE 2022-04-27 13:30:00 [facility] Raj SODIUM LEVEL, SYRINGE 2022-04-27 13:30:00 [facility] Raj HEMOGLOBIN, SYRINGE 2022-04-27 13:30:00 [facility] Raj GLUCOSE LEVEL, SYRINGE 2022-04-27 13:30:00 [facility] Raj TYPE AND SCREEN 2022-04-24 13:48:00 [facility] Raj PARTIAL THROMBOPLASTIN 2022-04-24 13:48:00 [facility] TIME (PTT) Raj PROTHROMBIN TIME WITH INR 2022-04-24 13:48:00 [facility] Raj BASIC METABOLIC PANEL 2022-04-24 13:48:00 [facility] Raj HC COMPLETE BLD COUNT 2022-04-24 13:48:00 [facility] W/AUTO DIFF Raj ESTIMATED GFR 2022-04-24 13:48:00 [facility] Raj CV MRA ABDOMEN PELVIS W 2022-03-28 18:09:46 [facility] WO CONTRAST Raj ESTIMATED GFR 2022-03-28 17:19:00 [facility] Raj POC PANEL 2022-03-28 17:19:00 [facility] Raj BASIC METABOLIC PANEL 2022-03-21 16:03:00 Georgina Dominguez [facility] FERRITIN LEVEL 2022-03-15 16:08:00 [facility] Raj TOTAL IRON BINDING 2022-03-15 16:08:00 [facility] CAPACITY Raj CREATININE LEVEL 2022-03-15 16:08:00 [facility] Raj BUN LEVEL 2022-03-15 16:08:00 [facility] Raj BASIC METABOLIC PANEL 2022-03-14 12:04:00 [facility] ECG 12-LEAD 2022-03-08 18:11:51 [facility] spital BASIC METABOLIC PANEL 2022-03-02 12:14:00 [facility] CBC WITH PLATELET AND 2022-03-02 12:14:00 [facility] DIFFERENTIAL B NATRIURETIC PEPTIDE 2022-03-02 12:14:00 [facility] US ANKLE BRACHIAL INDEX 2021-10-13 16:45:00 [facility] US CAROTID DUPLEX 2021-10-13 16:00:00 [facility] BILATERAL TTE COMPLETE, W CONTRAST, 2021-10-13 13:43:40 [facility] W DOPPLER ([id number]) ECG 12-LEAD 2021-09-21 20:08:11 [facility] spital BASIC METABOLIC PANEL 2021-09-15 13:02:00 [facility] DIGOXIN LEVEL 2021-09-15 13:02:00 [facility] spital CBC WITH PLATELET AND 2021-09-15 13:02:00 [facility] DIFFERENTIAL NT-PROBNP 2021-09-15 13:02:00 [facility] spital BASIC METABOLIC PANEL 2021-06-22 12:02:00 [facility] NT-PROBNP 2021-06-22 12:02:00 [facility] spital [UTP] Ortho - Surgery 2020-12-30 00:00:00 [facility] Scheduling [MMD] XRAY Chest 2 Views 2020-11-17 00:00:00 [facility] XRAY Chest 2 views [id number] 2020-11-17 00:00:00 [facility] MR Shoulder wo contrast 2020-10-07 00:00:00 [facility] Charity moffett [id number] Plan of Care Planned Activity Planned Date Details Comments Source Future Scheduled 2022-06-25 HEPATITIS B VACCINES [facility] Test 05:51:12 (1 of 3 - 3-dose series) [code = HEPATITIS B VACCINES (1 of 3 - 3-dose series)] Future Scheduled 2022-06-25 65+ [facility] 05:51:12 VACCINE (1 - PCV) [code = 65+ PNEUMOCOCCAL VACCINE (1 - PCV)] Future Scheduled 2022-06-25 DIABETIC FOOT EXAM [facility] Test 05:51:12 [code = DIABETIC FOOT EXAM] Future Scheduled 2022-06-25 SHINGLES VACCINES (1 [facility] Test 05:51:12 of 2) [code = SHINGLES VACCINES (1 of 2)] Future Scheduled 2022-06-25 COLONOSCOPY SCREENING [facility] Test 05:51:12 [code = COLONOSCOPY SCREENING] Future Scheduled 2022-06-[address] [facility] Test 05:51:12 malignant neoplasm of lung (procedure) [code = 364827455] Future Scheduled 2022-06-25 INFLUENZA VACCINE [facility] Test 05:51:12 [code = INFLUENZA VACCINE] Future Scheduled 2022-06-25 DIABETES: RETINAL EYE [facility] Test 05:51:12 EXAM [code = DIABETES: RETINAL EYE EXAM] Future Scheduled 2022-05-29 HEPATITIS B VACCINES [facility] Test 07:14:33 (1 of 3 - 3-dose series) [code = HEPATITIS B VACCINES (1 of 3 - 3-dose series)] Future Scheduled 2022-05-29 65+ [facility] Test 07:14:33 VACCINE (1 - PCV) [code = 65+ PNEUMOCOCCAL VACCINE (1 - PCV)] Future Scheduled 2022-05-29 DIABETIC FOOT EXAM [facility] Test 07:14:33 [code = DIABETIC FOOT EXAM] Future Scheduled 2022-05-29 SHINGLES VACCINES (1 [facility] Test 07:14:33 of 2) [code = SHINGLES VACCINES (1 of 2)] Future Scheduled 2022-05-29 COLONOSCOPY SCREENING [facility] Test 07:14:33 [code = COLONOSCOPY SCREENING] Future Scheduled 2022-05-[address] [facility] Test 07:14:33 malignant neoplasm of lung (procedure) [code = 698729927] Future Scheduled 2022-05-29 INFLUENZA VACCINE [facility] Test 07:14:33 [code = INFLUENZA VACCINE] Future Scheduled 2022-05-29 DIABETES: RETINAL EYE [facility] Test 07:14:33 EXAM [code = DIABETES: RETINAL EYE EXAM] Diagnostic Test 2020-12-30 [UTP] Ortho - Surgery [facility] Pending 00:00:00 Scheduling [code = [UTP] Ortho - Surgery Scheduling] Diagnostic Test 2020-10-07 MR Shoulder wo [facility] 00:[facility]:00 contrast 87857 [code = 32704] Diagnostic Test 2020-10-07 MR Shoulder wo [facility] 00:00:00 contrast 82895 [code = 77376] Encounters Start End Encounter Admission Attending Care Care Encounter Source Date/Time Date/Time Type Type Clinicians Facility Department ID 2022-06-[address] [facility] [id number] De moria 11:39:03 casey Steward 2022-02-24 Outpatient Guzman, Na STLMLC STLMLC [id number] 2 Common 10:00:00 [id number] [facility] 2021-10-12 Outpatient Guzman, Na STLMLC STLMLC [id number] 2 Common 14:23:13 [id number] [facility] 2021-10-12 Outpatient Guzman, Na STLMLC STLMLC [id number] 2 Common 13:26:20 [id number] [facility] 2021-10-12 Outpatient Guzman, Na STLMLC STLMLC [id number] 2 Common 13:26:05 [id number] [facility] 2021-10-12 Outpatient Guzman, Na STLMLC STLMLC [id number] 2 Common 12:49:48 [id number] [facility] 2021-10-12 Outpatient Guzman, Na STLMLC STLMLC [id number] 2 Common 12:43:40 [id number] [facility] 2021-10-12 Outpatient Guzman, Na STLMLC STLMLC [id number] 2 Common 12:18:20 [id number] [facility] 2021-10-12 Outpatient Guzman, Na STLMLC STLMLC [id number] 2 Common 11:46:50 [id number] [facility] 2021-10-12 Outpatient Guzman, Na [facility] [id number] 2 Common 11:29:53 [id number] [facility] 2021-10-12 Outpatient Guzman, Na ST[facility] [id number] 2 Common 11:29:29 [id number] [facility] 2021-10-12 Outpatient Guzman, Na STLC [facility] [id number] 2 Common 11:27:56 [id number] [facility] 2021-05-[address] [facility] [id number] De moria 14:32:37 r asif Steward 2021-03-04 Outpatient MANJARREZ, [facility] [id number] [place] 09:15:15 [facility] 2021-02-20 Outpatient MANJARREZ, [facility] [id number] [place] 01:03:31 [facility] 2021-02-02 Outpatient TY, [facility] [id number] [place] 13:56:34 NICHOLETTE Heal 2021-02-02 Outpatient [facility] [id number] [place] 13:55:48 [facility] 2021-01-26 Outpatient [facility] [id number] [place] 10:48:01 [facility] 2021-01-22 Outpatient MANJARREZ, [facility] [id number] [place] 04:11:18 [facility] 2022-06-25 2022-06-25 Refill Angelica, 1.2.840.1 [id number] Methodi 00:00:00 00:00:[address] 3.430.2.7 Hospit a .3.449459 l .8 2022-06-14 2022-06-14 Office [facility], 1.2.840.1 [id number] Methodi 09:20:00 09:37:21 Visit Alba 52232.1.1 344 s t Raj 3.430.2.7 Hospi ta .3.619507 l .8 2022-06-14 2022-06-14 Outpatient [facility] [id number] [address] [place] [address] 00:00:00 00:00:00 CHARUDATTA [address] 2022-06-14 2022-06-14 Outpatient [facility] [id number] [place] 00:00:00 00:00:00 ALBA [address] 2022-06-14 2022-06-14 Travel 1.2.840.1 1.2.150.170 [id number] [id number] Methodi 00:00:00 00:00:[address] 3.430.2.7 0.2.7.3.698 Ho spita .3.171117 084.8 l .8 2022-06-07 2022-06-07 Orders Peng, 1.2.840.1 [id number] 7331 Methodi 00:00:00 00:00:00 Only Stephanieroque 86839.1.[address] 3.430.2.7 Hospit a .3.670387 l .8 2022-05-01 2022-05-01 Telephone [place] 1.2.840.1 [id number] Methodi 00:00:00 00:00:00 , [place] [address].1.[address] 3.430.2.7 Hospit a .3.305695 l .8 2022-05-01 2022-05-01 Telephone [place] 1.2.840.1 [id number] Methodi 00:00:00 00:00:00 , Val 04726.1.[address] 3.430.2.7 Hospit a .3.631893 l .8 2022-04-27 2022-04-27 [facility], 1.2.840.1 [id number] Methodi 07:22:00 18:18:00 Encounter Alba 30021.1.[address] Raj 3.430.2.7 Hospi ta .3.049922 l .8 2022-04-27 2022-04-27 Anesthesia Angely Naidu. 1.2.840.1 [id number] Methodi 11:45:00 14:05:00 Event Irma Santacruz 59816.1.[address] 3.430.2.7 Hospit a .3.740102 l .8 2022-04-27 2022-04-27 Anesthesia Angely Naidu L. 1.2.840.1 [id number] Methodi 11:45:00 14:05:00 Event Irma Santacruz 02113.1.[address] 3.430.2.7 Hospit a .3.633620 l .8 2022-04-27 2022-04-27 Surgery [facility], 1.2.840.1 [id number] 4940 Methodi 11:00:00 13:35:00 Alba 84653.1.1 991 s t Raj 3.430.2.7 Hospi ta .3.758256 l .8 2022-04-27 2022-04-27 Surgery [facility], 1.2.840.1 [id number] 735100 9580 Methodi 11:00:00 13:35:00 [place] 38058.1.1 991 s t Raj 3.430.2.7 Hospi ta .3.171936 l .8 2022-04-27 2022-04-27 [facility], [facility] [id number] [place] [address] 00:00:00 00:00:00 Encounter ALBA [address] 2022-04-27 2022-04-27 Travel 1.2.840.1 1.2.695.742 9700 [id number] Methodi 00:00:00 00:00:[address] 3.430.2.7 0.2.7.3.698 Ho spita .3.156116 084.8 l .8 2022-04-27 2022-04-27 Travel 1.2.840.1 1.2.008.015 3311 356031 Methodi 00:00:00 00:00:[address] 3.430.2.7 0.2.7.3.698 Ho spita .3.171316 084.8 l .8 2022-04-24 2022-04-24 Pre-Admiss [facility], 1.2.840.1 [id number] Methodi 08:10:00 09:10:00 ion Charudatta 33498.1.1 741 s t Testing Raj 3.430.2.7 Hospi ta .3.362982 l .8 2022-04-24 2022-04-24 Pre-Admiss [facility], 1.2.840.1 [id number] 683 [id number] Methodi 08:10:00 09:10:00 ion Charudatta 14154.1.1 741 s t Testing Raj 3.430.2.7 Hospi ta .3.592758 l .8 2022-04-24 2022-04-24 Travel 1.2.840.1 1.2.638.921 3187 [id number] Methodi 00:00:00 00:00:[address] 3.430.2.7 0.2.7.3.698 Ho spita .3.952133 084.8 l .8 2022-04-24 2022-04-24 Travel 1.2.840.1 1.2.729.745 7720 907607 Methodi 00:00:00 00:00:[address] 3.430.2.7 0.2.7.3.698 Ho spita .3.182704 084.8 l .8 2022-04-15 2022-04-15 Refill Angelica, 1.2.840.1 [id number] 11681 Methodi 00:00:00 00:00:[address] 3.430.2.7 Hospit a .3.780221 l .8 2022-04-15 2022-04-15 Refill Angelica, 1.2.840.1 [id number] 38933 Methodi 00:00:00 00:00:[address] 3.430.2.7 Hospit a .3.105739 l .8 2022-04-11 2022-04-11 Prep for Deysi, 1.2.840.1 [id number] 21 [id number] Methodi 00:00:00 00:00:00 Surgery Melba 22696.1.[address] 3.430.2.7 Hospit a .3.919455 l .8 2022-04-11 2022-04-11 Prep for Deysi, 1.2.840.1 [id number] 21 [id number] Methodi 00:00:00 00:00:00 Surgery Melba 79030.1.[address] 3.430.2.7 Hospit a .3.739058 l .8 2022-04-10 2022-04-10 Telephone Deysi, 1.2.840.1 [id number] 2 [id number] Methodi 00:00:00 00:00:[address] 3.430.2.7 Hospit a .3.738660 l .8 2022-04-10 2022-04-10 Telephone Mobile, 1.2.840.1 [id number] 2 [id number] Methodi 00:00:00 00:00:[address] 3.430.2.7 Hospit a .3.402897 l .8 2022-03-28 2022-03-28 [facility], 1.2.840.1 [id number] 2 [id number] Methodi 12:26:46 23:59:00 Encounter Kinan 08800.1.[address] Sebas 3.430.2.7 Hospit a .3.923973 l .8 2022-03-28 2022-03-28 [facility], 1.2.840.1 [id number] 2 [id number] Methodi 12:26:46 23:59:00 Encounter Kinan 71965.1.[address] Sebas 3.430.2.7 Hospit a .3.967045 l .8 2022-03-28 2022-03-28 [facility], 1.2.840.1 [id number] 2 [id number] Methodi 12:15:00 12:25:00 Encounter Kinan 72163.1.[address] Sebas 3.430.2.7 Hospit a .3.893052 l .8 2022-03-28 2022-03-28 [facility], 1.2.840.1 [id number] 2 [id number] Methodi 12:15:00 12:25:00 Encounter Kinan 00396.1.[address] Sebas 3.430.2.7 Hospit a .3.507214 l .8 2022-03-28 2022-03-28 [facility], 1.2.840.1 [id number] 21001 79510 Methodi 11:23:57 12:14:00 Encounter Charudatta 87126.1.[address] Raj 3.430.2.7 Hospi ta .3.220326 l .8 2022-03-28 2022-03-28 [facility], 1.2.840.1 [id number] 21001 [id number] Methodi 11:23:57 12:14:00 Encounter Charudatta 51007.1.[address] Raj 3.430.2.7 Hospi ta .3.792252 l .8 2022-03-28 2022-03-28 Travel 1.2.840.1 1.2.404.450 1027 [id number] Methodi 00:00:00 00:00:[address] 3.430.2.7 0.2.7.3.698 Ho spita .3.117535 084.8 l .8 2022-03-28 2022-03-28 Travel 1.2.840.1 1.2.984.354 5189 286493 Methodi 00:00:00 00:00:[address] 3.430.2.7 0.2.7.3.698 Ho spita .3.862567 084.8 l .8 2022-03-24 2022-03-24 [facility], 1.2.840.1 [id number] 2100 [id number] Methodi 00:00:00 00:00:00 Charudatta 41261.1.1 140 s t Raj 3.430.2.7 Hospi ta .3.504630 l .8 2022-03-24 2022-03-24 Telephone [facility], 1.2.840.1 [id number] 2100 [id number] Methodi 00:00:00 00:00:00 Charudatta 61841.1.1 140 s t Raj 3.430.2.7 Hospi ta .3.158640 l .8 2022-03-22 2022-03-22 [facility] 1.2.840.1 [id number] 2 [id number] Methodi 00:00:00 00:00:[address] 3.430.2.7 Hospit a .3.584968 l .8 2022-03-22 2022-03-22 Telephone Iammar[place], 1.2.840.1 [id number] 2 [id number] Methodi 00:00:00 00:00:[address] 3.430.2.7 Hospit a .3.805323 l .8 2022-03-21 2022-03-21 Telephone Iammar[place], 1.2.840.1 [id number] 2 [id number] Methodi 00:00:00 00:00:[address] 3.430.2.7 Hospit a .3.992280 l .8 2022-03-21 2022-03-21 Telephone [place], 1.2.840.1 [id number] 2 [id number] Methodi 00:00:00 00:00:[address] 3.430.2.7 Hospit a .3.251602 l .8 2022-03-17 2022-03-17 Telephone [place], 1.2.840.1 [id number] 2 [id number] Methodi 00:00:00 00:00:[address] 3.430.2.7 Hospit a .3.306192 l .8 2022-03-17 2022-03-17 Telephone [place], 1.2.840.1 [id number] 2 [id number] Methodi 00:00:00 00:00:[address] 3.430.2.7 Hospit a .3.835773 l .8 2022-03-15 2022-03-15 Office [facility], 1.2.840.1 [id number] 8537 Methodi 09:50:00 14:07:55 Visit Charudatta 87025.1.1 676 s t Raj 3.430.2.7 Hospi ta .3.274999 l .8 2022-03-15 2022-03-15 [facility], 1.2.840.1 [id number] 6683 Methodi 09:50:00 14:07:55 Visit Charudatta 77807.1.1 676 s t Raj 3.430.2.7 Hospi ta .3.190543 l .8 2022-03-15 2022-03-15 Lab [facility], 1.2.840.1 [id number] 5651 Methodi 11:45:00 11:50:00 Charudatta 80898.1.1 997 s t Raj 3.430.2.7 Hospi ta .3.137674 l .8 2022-03-15 2022-03-15 [facility], 1.2.840.1 [id number] 5648 Methodi 11:45:00 11:50:00 Charudatta 32904.1.1 997 s t Raj 3.430.2.7 Hospi ta .3.385653 l .8 2022-03-15 2022-03-15 Travel 1.2.840.1 1.2.709.332 8386 823496 Methodi 00:00:00 00:00:[address] 3.430.2.7 0.2.7.3.698 Ho spita .3.656167 084.8 l .8 2022-03-15 2022-03-15 Travel 1.2.840.1 1.2.803.600 5125 189874 Methodi 00:00:00 00:00:[address] 3.430.2.7 0.2.7.3.698 Ho spita .3.397971 084.8 l .8 2022-03-09 2022-03-09 ambulatory STLMLC STLMLC [id number] Common 00:00:00 00:00:00 [facility] 2022-03-08 2022-03-08 Office Angelica, 1.2.840.1 [id number] Methodi 13:00:00 13:44:41 Visit Imad 78832.1.[address] 3.430.2.7 Hospit a .3.582150 l .8 2022-03-08 2022-03-08 Office Angelica, 1.2.840.1 [id number] Methodi 13:00:00 13:44:41 Visit Imad 78864.1.[address] 3.430.2.7 Hospit a .3.995759 l .8 2022-03-08 2022-03-08 Telephone Deysi, 1.2.840.1 [id number] 2 [id number] Methodi 00:00:00 00:00:[address] 3.430.2.7 Hospit a .3.133152 l .8 2022-03-08 2022-03-08 Travel 1.2.840.1 1.2.535.017 8865 755539 Methodi 00:00:00 00:00:[address] 3.430.2.7 0.2.7.3.698 Ho spita .3.039167 084.8 l .8 2022-03-08 2022-03-08 Refill Angelica, 1.2.840.1 [id number] 85588 Methodi 00:00:00 00:00:[address] 3.430.2.7 Hospit a .3.447901 l .8 2022-03-08 2022-03-08 Telephone Deysi, 1.2.840.1 [id number] 2 [id number] Methodi 00:00:00 00:00:[address] 3.430.2.7 Hospit a .3.631177 l .8 2022-03-08 2022-03-08 Travel 1.2.840.1 1.2.011.526 9088 509372 Methodi 00:00:00 00:00:[address] 3.430.2.7 0.2.7.3.698 Ho spita .3.023884 084.8 l .8 2022-03-08 2022-03-08 Refill Angelica, 1.2.840.1 [id number] 44250 49174 Methodi 00:00:00 00:00:[address] 3.430.2.7 Hospit a .3.541942 l .8 2022-03-03 2022-03-03 ambulatory STLMLC STLMLC [id number] Common 00:00:00 00:00:00 [facility] 2022-02-28 2022-02-28 ambulatory STLMLC STLMLC [id number] Common 00:00:00 00:00:00 [facility] 2022-02-28 2022-02-28 ambulatory STLMLC STLMLC 3476332 Common 00:00:00 00:00:00 [facility] 2022-02-25 2022-02-25 Refill Angelica, 1.2.840.1 [id number] 28824 83155 Methodi 00:00:00 00:00:[address] 3.430.2.7 Hospit a .3.423137 l .8 2022-02-25 2022-02-25 Refill Angelica, 1.2.840.1 [id number] 03969 02516 Methodi 00:00:00 00:00:[address] 3.430.2.7 Hospit a .3.924507 l .8 2022-02-03 2022-02-03 Office Suzette, 1.2.840.1 [id number] 483147 6638 Methodi 13:30:00 13:44:02 Visit Sera Adalgisa. 07898.1.[address] 3.430.2.7 Hospit a .3.898186 l .8 2022-02-03 2022-02-03 Office Suzette, 1.2.840.1 [id number] 765815 0220 Methodi 13:30:00 13:44:02 Visit Sera Alejandro 20656.1.[address] 3.430.2.7 Hospit a .3.753041 l .8 2022-01-30 2022-01-30 Refill Angelica, 1.2.840.1 [id number] 56554 74949 Methodi 00:00:00 00:00:[address] 3.430.2.7 Hospit a .3.543543 l .8 2022-01-30 2022-01-30 Refill Angelica, 1.2.840.1 [id number] 26047 40591 Methodi 00:00:00 00:00:[address] 3.430.2.7 Hospit a .3.982718 l .8 2022-01-09 2022-01-09 Refill Angelica, 1.2.840.1 [id number] 09096 01234 Methodi 00:00:00 00:00:[address] 3.430.2.7 Hospit a .3.010142 l .8 2022-01-09 2022-01-09 Refill Angelica, 1.2.840.1 639793838 99654 64770 Methodi 00:00:00 00:00:[address] 3.430.2.7 Hospit a .3.723120 l .8 2021-12-19 2021-12-19 Telephone Darci, 1.2.840.1 [id number] 2099 710325 Methodi 00:00:00 00:00:00 [place] D [address]76.1.[address] 3.430.2.7 Hospit a .3.865958 l .8 2021-12-19 2021-12-19 Telephone Darci, 1.2.840.1 [id number] 2099 879962 Methodi 00:00:00 00:00:00 Spenceria D 06626.1.[address] 3.430.2.7 Hospit a .3.329544 l .8 2021-11-07 2021-11-07 Orders [place] 1.2.840.1 [id number] Methodi 00:00:00 00:00:00 Only , Val 19594.1.[address] 3.430.2.7 Hospit a .3.258150 l .8 2021-11-07 2021-11-07 Orders [place] 1.2.840.1 [id number] Methodi 00:00:00 00:00:00 Only , [place] [address].1.[address] 3.430.2.7 Hospit a .3.625429 l .8 2021-10-31 2021-10-31 Telephone Inessa, 1.2.840.1 [id number] 2099 519205 Methodi 00:00:00 00:00:00 Charud[place] 54026.1.1 047 s t Raj 3.430.2.7 Hospi ta .3.017405 l .8 2021-10-31 2021-10-31 Telephone Inessa, 1.2.840.1 [id number] 2099 547721 Methodi 00:00:00 00:00:00 Charudatta 51538.1.1 047 s t Raj 3.430.2.7 Hospi ta .3.360501 l .8 2021-10-27 2021-10-27 ambulatory STLMLC STLMLC [id number] Common 00:00:00 00:00:00 [facility] 2021-09-21 2021-10-18 Office Angelica, 1.2.840.1 [id number] Methodi 14:00:00 11:36:09 Visit Imad 55142.1.[address] 3.430.2.7 Hospit a .3.750244 l .8 2021-09-21 2021-10-18 Office Angelica, 1.2.840.1 [id number] [id number] Methodi 14:00:00 11:36:09 Visit Imad 91033.1.[address] 3.430.2.7 Hospit a .3.585785 l .8 2021-10-14 2021-10-14 Orders [facility], 1.2.840.1 [id number] 15287 Methodi 00:00:00 00:00:00 Only Imad 19775.1.[address] 3.430.2.7 Hospit a .3.339820 l .8 2021-10-14 2021-10-14 Orders [facility], 1.2.840.1 [id number] 08862 Methodi 00:00:00 00:00:00 Only Imad 29177.1.[address] 3.430.2.7 Hospit a .3.803363 l .8 2021-10-13 2021-10-13 [facility], 1.2.840.1 [id number] 2099 [id number] Methodi 07:51:25 23:59:00 Encounter Imad 88952.1.[address] 3.430.2.7 Hospit a .3.257908 l .8 2021-10-13 2021-10-13 [facility], 1.2.840.1 [id number] 2099 [id number] Methodi 07:51:25 23:59:00 Encounter Imad 61478.1.[address] 3.430.2.7 Hospit a .3.113821 l .8 2021-10-13 2021-10-13 [facility], 1.2.840.1 [id number] 2099 [id number] Methodi 07:51:13 23:59:00 Encounter Imad 36714.1.[address] 3.430.2.7 Hospit a .3.198264 l .8 2021-10-13 2021-10-13 [facility], 1.2.840.1 [id number] 2099 [id number] Methodi 07:51:13 23:59:00 Encounter Imad 72818.1.[address] 3.430.2.7 Hospit a .3.144398 l .8 2021-10-13 2021-10-13 [facility], 1.2.840.1 [id number] 2099 [id number] Methodi 06:46:08 07:50:00 Encounter Imad 32224.1.[address] 3.430.2.7 Hospit a .3.234066 l .8 2021-10-13 2021-10-13 [facility], 1.2.840.1 [id number] 2099 [id number] Methodi 06:46:08 07:50:00 Encounter Imad 21686.1.[address] 3.430.2.7 Hospit a .3.363696 l .8 2021-10-13 2021-10-13 Travel 1.2.840.1 1.2.788.945 1067 [id number] Methodi 00:00:00 00:00:[address] 3.430.2.7 0.2.7.3.698 Ho spita .3.365222 084.8 l .8 2021-10-13 2021-10-13 Travel 1.2.840.1 1.2.041.824 8909 588179 Methodi 00:00:00 00:00:[address] 3.430.2.7 0.2.7.3.698 Ho spita .3.431114 084.8 l .8 2021-09-23 2021-09-23 Travel 1.2.840.1 1.2.653.906 3692 246140 Methodi 00:00:00 00:00:[address] 3.430.2.7 0.2.7.3.698 Ho spita .3.899359 084.8 l .8 2021-09-23 2021-09-23 Travel 1.2.840.1 1.2.109.425 2212 135493 Methodi 00:00:00 00:00:[address] 3.430.2.7 0.2.7.3.698 Ho spita .3.989255 084.8 l .8 2021-09-21 2021-09-21 Travel 1.2.840.1 1.2.954.634 7824 [id number] Methodi 00:00:00 00:00:[address] 3.430.2.7 0.2.7.3.698 Ho spita .3.409555 084.8 l .8 2021-09-21 2021-09-21 Travel 1.2.840.1 1.2.876.632 3697 048173 Methodi 00:00:00 00:00:[address] 3.430.2.7 0.2.7.3.698 Ho spita .3.184390 084.8 l .8 2021-09-05 2021-09-05 Refill Angelica, 1.2.840.1 [id number] Methodi 00:00:00 00:00:[address] 3.430.2.7 Hospit a .3.020353 l .8 2021-09-05 2021-09-05 Refill Angelica, 1.2.840.1 [id number] 62388 Methodi 00:00:00 00:00:[address] 3.430.2.7 Hospit a .3.020118 l .8 2021-08-302021-08-30 ambulatory STLMLC STLMLC [id number] Common 00:00:00 00:00:00 [facility] 2021-08-30 2021-08-30 ambulatory STLMLC STLMLC [id number] Common 00:00:00 00:00:00 [facility] 2021-08-25 2021-08-25 Refill Angelica, 1.2.840.1 [id number] Methodi 00:00:00 00:00:[address] 3.430.2.7 Hospit a .3.172309 l .8 2021-08-25 2021-08-25 Refill Angelica, 1.2.840.1 [id number] [id number] Methodi 00:00:00 00:00:[address] 3.430.2.7 Hospit a .3.501993 l .8 2021-08-04 2021-08-04 Orders Angelica, 1.2.840.1 [id number] Methodi 00:00:00 00:00:00 Only Imad 24785.1.[address] 3.430.2.7 Hospit a .3.917334 l .8 2021-08-04 2021-08-04 Orders Angelica, 1.2.840.1 [id number] Methodi 00:00:00 00:00:00 Only Imad 34288.1.[address] 3.430.2.7 Hospit a .3.592693 l .8 2021-06-20 2021-06-20 Refill Iammarino, 1.2.840.1 [id number] 187 [id number] Methodi 00:00:00 00:00:[address] 3.430.2.7 Hospit a .3.205854 l .8 2021-06-20 2021-06-20 Refill Iammarino, 1.2.840.1 [id number] 588 [id number] Methodi 00:00:00 00:00:[address] 3.430.2.7 Hospit a .3.898585 l .8 2021-06-20 2021-06-20 Orders Angelica, 1.2.840.1 [id number] 75839 Methodi 00:00:00 00:00:00 Only Imad 90458.1.[address] 3.430.2.7 Hospit a .3.696083 l .8 2021-06-06 2021-06-06 Outpatient STLMLC STLMLC [id number] Common 00:00:00 00:00:00 [facility] 2021-05-11 2021-05-11 [facility] [id number] [place] 00:00:00 00:00:00 IMAD [address] 2021-05-03 2021-05-03 Outpatient STLMLC STLMLC [id number] Common 00:00:00 00:00:00 [facility] 2021-04-13 2021-04-13 [facility] [id number] [place] 00:00:00 00:00:00 IMAD [address] 2021-04-13 2021-04-13 Outpatient [facility] [id number] [place] 00:00:00 00:00:00 IMAD [address] 2021-04-02 2021-04-02 Outpatient STLMLC STLMLC [id number] Common 00:00:00 00:00:00 [facility] 2021-03-29 2021-03-29 Outpatient STLMLC STLMLC [id number] Common 00:00:00 00:00:00 [facility] 2021-03-24 2021-03-24 Outpatient STLMLC STLMLC [id number] Common 00:00:00 00:00:00 [facility] 2021-03-24 2021-03-24 Outpatient STLMLC STLMLC [id number] Common 00:00:00 00:00:00 [facility] 2021-03-24 2021-03-24 Outpatient [facility] [id number] [place] 00:00:00 00:00:[address] 2021-03-16 2021-03-21 Inpatient FABIOLA, [facility] [id number] 26 [place] 00:00:00 00:00:00 ASMA [address] 2021-03-17 2021-03-17 EXT [facility] OP Antoni, EXT MSRDP 1.2.840.114 1 [id number] MS 00:00:00 00:00:00 Brandt Gao LOCATION 350.1.13.58 Health 9.2.7.2.686 [id number] 0 2021-03-17 2021-03-17 EXT [facility] OP Corrales, EXT MSRDP 1.2.840.114 1 [id number] MS 00:00:00 00:00:00 Brandt Fieldsan LOCATION 350.1.13.58 Health 9.2.7.2.686 401.6709423 0 2021-03-04 2021-03-04 Office Ty, [facility]TP ORTHO 1.2.077.455 5272 04802 [place] 13:35:44 14:05:44 Visit Nicholette SUGAR 350.1.13.58 Health LAND 9.2.7.2.686 [id number] 1 2021-03-04 2021-03-04 Office Ty, UTP ORTHO 1.2.463.699 5730 41528 13:35:44 14:05:44 Visit Nicholette SUGAR 350.1.13.58 LAND 9.2.7.2.686 708.5793084 1 2021-03-02 2021-03-02 Outpatient ANGELICA, [facility] [id number] [place] 00:00:00 00:00:00 IMAD [address] 2021-02-02 2021-02-02 Office Manjarrez, [facility] 1.2.628.909 5933 36779 [place] 13:52:06 14:20:28 Visit Salvador SUGAR 350.1.13.58 He alth LAND 9.2.7.2.686 376.5302538 1 2021-02-02 2021-02-02 Office Manjarrez, [facility]TP ORTHO 1.2.938.227 6211 62094 13:52:06 14:20:28 Visit Salvador SUGAR 350.1.13.58 JUAN 9.2.7.2.686 113.9250006 1 2021-01-31 2021-01-31 Outpatient SUZETTE, [facility] [id number] 624 [place] 00:00:00 00:00:00 SERA 659 Method i 2021-01-20 2021-01-20 Outpatient JOSSELINE, FB [facility]FB 7501 [facility] 12:07:00 17:40:00 SALVADOR 2021-01-20 2021-01-20 [facility] 743 [id number] MS 13:00:00 13:00:00 t; SALVADOR MANJARREZ, - Sugar Phys ici Paige FRANCO 1 ans MDamien 2021-01-14 2021-01-14 Outpatient STLMLC STLC [id number] Common 00:00:00 00:00:00 [facility] 2021-01-13 2021-01-13 Outpatient STLMLC STLMLC [id number] Common 00:00:00 00:00:00 [facility] 2021-01-03 2021-01-03 Outpatient STLMLC STLMLC [id number] Common 00:00:00 00:00:00 [facility] 2020-12-30 2020-12-30 [facility] [id number] [id number] MS 09:30:00 09:30:00 t; SALVADOR MANJARREZ, - Sugar Phys ici Paige FRANCO 1 ans MDamien 2020-12-21 2020-12-21 Outpatient STLMLC STLMLC [id number] Common 00:00:00 00:00:00 [facility] 2020-12-21 2020-12-21 Outpatient JOSSELINE [facility] [id number] 466 [place] 00:00:00 00:00:00 SALVADOR 975 Method i 2020-12-21 2020-12-21 Outpatient CONSTANTINO, [facility] [id number] 740 [place] 00:00:00 00:00:00 NADIM 340 Method i 2020-12-21 2020-12-21 Outpatient JOSSELINE [facility] [id number] [place] 00:00:00 00:00:00 SALVADOR 274 Method i 2020-12-21 2020-12-21 Outpatient CONSTANTINO, [facility] [id number] 740 [place] 00:00:00 00:00:00 NADIM 845 Method i 2020-10-07 2020-10-07 Appointyamila MANJARREZ [facility] Orthopedics 718 [id number] MS 09:30:00 09:30:00 t; SALVADOR MANJARREZ, - Sugar Phys ici Paige FRANCO [facility] 1 ans Paige 2020-09-23 2020-09-23 Outpatient [facility] [id number] Common 00:00:00 00:00:00 Spirit - [facility] 2020-08-04 2020-08-04 Outpatient ANGELICA, [facility] [id number] [place] 00:00:00 00:00:00 IMAD 667 Method i 2020-06-03 2020-06-03 [facility] [id number] Common 09:00:00 09:00:00 t Specialty/U Sp mari Specialty rology - [facility] /Urology Clinic [facility] 2020-05-06 2020-05-06 Outpatient BOB, [facility] [id number] 360 [place] 00:00:00 00:00:00 JW 039 Method i 2020-04-28 2020-04-28 Outpatient ANGELICA, [facility] [id number] [place] 00:00:00 00:00:00 IMAD 297 Method i 2020-03-31 2020-03-31 Outpatient ANGELICA, [facility] [id number] [place] 00:00:00 00:00:00 IMAD 115 Method i 2020-03-31 2020-03-31 Outpatient ANGELICA, [facility] [id number] [place] 00:00:00 00:00:00 IMAD 016 Method i 2020-03-23 2020-03-23 [facility] [id number] Common 08:20:00 08:20:00 t IdenIve Spir it [employer] [facility] Family Medicine [facility] 2020-03-17 2020-03-17 Outpatient ANGELICA, [facility] [id number] [place] 00:00:00 00:00:00 IMAD [address] 2020-03-17 2020-03-17 Outpatient ANGELICA, [facility] [id number] [place] 00:00:00 00:00:00 IMAD [address] 2020-03-08 2020-03-08 [facility] [id number] Common 10:55:00 10:55:00 [address] [place] [address] [facility] 2020-02-20 2020-02-20 Outpatient ANGELICA, [facility] [id number] [place] 00:00:00 00:00:00 IMAD [address] 2020-02-19 2020-02-19 Outpatient ANGELICA, [facility] [id number] [place] 00:00:00 00:00:00 IMAD [address] 2020-01-30 2020-01-30 Outpatient SUZETTE, [facility] [id number] [place] 00:00:00 00:00:00 SERA 769 Method i 2020-01-28 2020-01-29 Outpatient ANGELICA, [facility] [id number] [place] 00:00:00 00:00:00 IMAD [address] 2019-12-03 2019-12-03 [facility] [id number] Common 11:15:00 11:15:00 t [place] [address] [facility] 2019-06-12 2019-06-12 Out[facility] [id number] Common 15:20:00 15:20:00 t [employer] [address] [facility] 2018-12-27 2018-12-27 Out[facility] [id number] Common 13:00:00 13:00:00 t [employer] [place] [address] [facility] 2018-12-17 2018-12-17 Out[facility] [id number] Common 11:09:00 11:09:00 t [employer] [address] [facility] 2018-12-01 2018-12-01 Out[facility] [id number] Common 21:22:00 21:22:00 t [employer] [place] [address] [facility] 2018-10-28 2018-10-28 Out[facility] 24 [id number] Common 15:53:00 15:53:00 t [place] [address] [facility] 2018-09-26 2018-09-26 Out[facility] [id number] Common 10:45:00 10:45:00 t [employer] [place] [address] [facility] 2018-08-05 2018-08-05 Out[facility] [id number] Common 08:30:00 08:30:00 t [employer] [place] [address] [facility] 2018-05-06 2018-05-06 Out[facility] [id number] Common 09:15:00 09:15:00 t [place] [address] [facility] Results Test Description Test Time Test Comments Results Result Comments Source POC glucose 2022-04-27 21:31:00 Test Item Value Reference Range Interpretation Comme nts POC glucose (test code = 91 mg/dL 65-99 Ope rator Name: Vlad SilviaDevice ID: [id number]) [id number] able: [facility] Notified RN [facility] [id number] 21:31:00 Test Item Value Reference Range Interpretation Comments POC glucose (test 91 mg/dL 65-99 Personnel Clerks Supervisor N guy: Chu code = 12065-2) GenebelDevic e ID: [id number] able: [facility] [id number] 18:22:00 Test Item Value Reference Range Interpretation Comments Activated clotting See_Comment Personnel Clerks Supervisor Name: Naidu time (test code = ElimaggiebeurbanD evice ID: [id number]) [id number] [Autom ated message] The sy stem which generated this result transmitted ref erence range: 96 - 152 sec. The reference range was not used to interpr et this result as vandana l/abnormal. [facility] [id number] 18:22:00 Test Item Value Reference Range Interpretation Comments Activated clotting See_Comment Personnel Clerks Supervisor Name: Naidu time (test code = ElizabethD evice ID: [id number]) [id number] [Autom ated message] The sy stem which generated this result transmitted ref erence range: 96 - 152 sec. The reference range was not used to interpr et this result as vandana l/abnormal. [facility] arterial blood gas, corrected and [id number] 18:12:00 Test Item Value Reference Range Interpretation Comments pH, arterial (test 7.35-7.45 code = 2744-1) pCO2, arterial (test See_Comment [Autom ated code = 2019-04) message] The system which generated this result [...] 2708-6) pH, arterial corrected (test code = 35579-0) pCO2, arterial mmHg corrected (test code = 97996-7) pO2, arterial Unable to mmHg Personnel Clerks Supervisor ID: corrected (test code report Messarr a = 64438-9) AmandaDevice ID : [id number] Base excess, arterial See_Comment [Auto mated (test [...] mmol/L 1.11-1.32 L arterial (test code = 13660-2) Glucose, syringe 70 mg/dL 65-99 (test code = 2345-7) Lactic acid, syringe 0.5 mmol/L 0.5-2.2 (test code = 11852-6) Lab Interpretation Abnormal (test code = 39199-5) [facility] arterial blood gas, corrected and [id number] 18:12:00 Test Item Value Reference Range Interpretation [...] 2708-6) pH, arterial corrected (test code = 34143-0) pCO2, arterial mmHg corrected (test code = 15135-0) pO2, arterial Unable to mmHg Personnel Clerks Supervisor ID: corrected (test code report Andrearr a = [id number]) AmandaDevice ID : [id number] Base excess, arterial See_Comment [Auto mated (test [...] mmol/L 1.11-1.32 L arterial (test code = 85500-4) Glucose, syringe 70 mg/dL 65-99 (test code = 2345-7) Lactic acid, syringe 0.5 mmol/L 0.5-2.2 (test code = 64732-5) Lab Interpretation Abnormal (test code = 04232-7) [facility], [id number] 13:37:00 Test Item Value Reference Range Interpretation Comments Glucose, syringe (test code = 121 mg/dL 65-99 H 2345-7) Lab Interpretation (test code = Abnormal 71153-9) [facility], [id number] 13:37:00 Test Item Value Reference Range Interpretation Comments Hemoglobin, syringe (test code = 12.1 g/dL 14-18 L 718-7) Lab Interpretation (test code = Abnormal 82705-4) [facility], [id number] 13:37:00 Test Item Value Reference Range Interpretation Comments Potassium, syringe See_Comment [Automat ed message] The (test code = 2008) system wh ich generated this result tra nsmitted reference range : 3.5 - 5.0 mEq/L. The refe rence range was not used to interpret this result as normal/abnormal . [facility], [id number] 13:37:00 Test Item Value Reference Range Interpretation Comments Sodium, syringe (test See_Comment [Auto mated message] The code = 2947-0) system which generated this result tra nsmitted reference range : 135 - 148 mEq/L. The refe rence range was not used to interpret this result as normal/abnormal . [facility], [id number] 13:37:00 Test Item Value Reference Range Interpretation Comments Glucose, syringe (test code = 121 mg/dL 65-99 H 2345-7) Lab Interpretation (test code = Abnormal 34164-1) [facility], [id number] 13:37:00 Test Item Value Reference Range Interpretation Comments Hemoglobin, syringe (test code = 12.1 g/dL 14-18 L 718-7) Lab Interpretation (test code = Abnormal 87614-4) [facility], [id number] 13:37:00 Test Item Value Reference Range Interpretation Comments Potassium, syringe See_Comment [Automat ed message] The (test code = 2007) system wh ich generated this result tra nsmitted reference range : 3.5 - 5.0 mEq/L. The refe rence range was not used to interpret this result as normal/abnormal . [facility], [id number] 13:37:00 Test Item Value Reference Range Interpretation Comments Sodium, syringe (test See_Comment [Auto mated message] The code = 2947-0) system which generated this result tra nsmitted reference range : 135 - 148 mEq/L. The refe rence range was not used to interpret this result as normal/abnormal . [facility]2022-07-12 17:22:01 Test Item Value Reference Range Interpretation Comments POC creatinine (test 2.9 mg/dl 0.7-1.2 H Operato r Name: code = 16684-5) [place] Mediacorneliaice ID: [id number] POC hematocrit (test 41 % 41-51 code = 4544-3) Lab Interpretation (test Abnormal code = 46262-7) [facility]2022-07-12 17:22:01 Test Item Value Reference Range Interpretation Comments POC creatinine (test 2.9 mg/dl 0.7-1.2 H Operato r Name: code = 70204-2) Sherif Markham diDevice ID: [id number] POC hematocrit (test 41 % 41-51 code = 4544-3) Lab Interpretation (test Abnormal code = 15997-5) [facility]2022-06-30 10:15:00 Test Item Value Reference Interpretation Comments Range Creatinine (test 3.91 mg/dL 0.7-1.18 H For patient s >49 code = 2160-0) years of age, the reference limit for Creatinine is approximately 1 3% higher for peopleidentifie d as -Ida n. EGFR Non-Afr. See_Comment L [Automated me ssage] Togolese (test code The syst em which = 6600) generated this result transmit domenico reference range : > OR = 60 mL/min/1.73m2. The reference range was not used to interpret this result as normal/abnormal . EGFR See_Comment L [Automated mes amy] Togolese (test code The syst em which = 2774) generated this result transmit domenico reference range : > OR = 60 mL/min/1.73m2. The reference range was not used to interpret this result as normal/abnormal . RAC (test code = Performing RAC) Organization Information: Site ID: SHELLY [facility] Address: [address] [place] [address] Director: Jake Sow Lab Interpretation Abnormal (test code = 81112-4) [facility] [id number] 10:15:00 Test Item Value Reference Range Interpretation Comments Ferritin level (test 96 ng/mL 24-380 code = 2276-4) RAC (test code = RAC) Performing Organization Information: Site ID: SHELLY [facility] Address: [address] [place] [address] Director: Jake Sow [facility] [id number] 10:15:00 Test Item Value Reference Range Interpretation Comments BUN (test code = 3094-0) 59 mg/dL 7-25 H RAC (test code = RAC) Performing Organization Information: Site ID: Genna Name: [facility] Address: [address] [place] [address] Director: Jake Sow Lab Interpretation (test Abnormal code = 88855-6) [facility] iron binding [id number] 10:15:00 Test Item Value Reference Range Interpretation [...] = Performing RAC) Organization Information: Site ID: [facility] Name: [employer] Lab Address: [address] [place] [phone] Director: Jake Sow Lab Interpretation Abnormal (test code = 65480-3) [facility]Cre[facility] centerine [id number] 10:15:00 Test Item Value Reference Interpretation Comments Range Creatinine (test 3.91 mg/dL 0.7-1.18 H For patient s >49 code = 2160-0) years of age, the reference limit for Creatinine is approximately 1 3% higher for peopleidentifie d as -Ida n. EGFR Non-Afr. See_Comment L [Automated me ssage] Togolese (test code The syst em which = 8043) generated this result transmit domenico reference range : > OR = 60 mL/min/1.73m2. The reference range was not used to interpret this result as normal/abnormal . EGFR See_Comment L [Automated mes amy] Togolese (test code The syst em which = 2256) generated this result transmit domenico reference range : > OR = 60 mL/min/1.73m2. The reference range was not used to interpret this result as normal/abnormal . RAC (test code = Performing RAC) Organization Information: Site ID: SHELLY Name: Harley pimentel Lab Address: [address] [place] [phone] Director: Jake Sow Lab Interpretation Abnormal (test code = 96039-5) [facility] [id number] 10:15:00 Test Item Value Reference Range Interpretation Comments Ferritin level (test 96 ng/mL 24-380 code = 2276-4) RAC (test code = RAC) Performing Organization Information: Site ID: A Name: [facility] Address: [address] [place] [phone] Director: Jake Sow [facility] HospitalBUN [id number] 10:15:00 Test Item Value Reference Range Interpretation Comments BUN (test code = 3094-0) 59 mg/dL 7-25 H RAC (test code = RAC) Performing Organization Information: Site ID: [facility] Name: [facility] Lab Address: [address] [place] [phone] Director: [employer] Lab Interpretation (test Abnormal code = 54971-0) [facility] iron binding [id number] 10:15:00 Test Item Value Reference Range Interpretation [...] = Performing RAC) Organization Information: Site ID: [facility] Name: [employer] Lab Address: [address] [place] [phone] Director: Jake Anton Juanjose Lab Interpretation Abnormal (test code = 83183-0) [facility] 12 [id number] 03:09:41 Test Item Value Reference Range Interpretation Comments Ventricular rate (test code = 253) Atrial rate (test code = 255) AR interval (test code = 266) QRSD interval [...] 14:08,-Electronic atrial pacemaker has replaced Sinus rhythm- [facility] 12 [id number] 03:09:41 Test Item Value Reference Range Interpretation Comments Ventricular rate (test code = 253) Atrial rate (test code = 255) AR interval (test code = 266) QRSD interval [...] 14:08,-Electronic atrial pacemaker has replaced Sinus rhythm- [facility] natriuretic [id number] 18:20:00 Test Item Value Reference Interpretation Comments Range BNP (test code = 331 pg/mL See_[place] [address]-7) with age in the [facility] on with the highes t values seen inindividuals g reater than 75 years o f age.Reference: J. Am. Kelly. Cardiol. 2002; 40:976-982. [Automated mess age] The system [employer] [facility] [employer] [facility] generated this result transmitted ref erence range: <=100. T he reference range was not used to int erpret this result as normal/abnormal . CLARI (test code = FASTING:YES CLARI) FASTING: YES RAC (test code = Performing RAC) Organization Information: Site ID: RGA [facility]: [facility] Address: [address] [place] [id number] Director: Jake Sow Lab Interpretation Abnormal (test code = 32984-6) [facility] natriuretic [id number] 18:20:00 Test Item Value Reference Interpretation Comments Range BNP (test code = 331 pg/mL See_[place] [address]-6) with age in the [facility] on with the highes t values seen inindividuals g reater than 75 years o f age.Reference: J. Am. Kelyl. Cardiol. 2002; 40:976-982. [Automated mess age] The system [employer] generated this result transmitted ref erence range: <=100. T he reference range was not used to int erpret this result as normal/abnormal . CLARI (test code = FASTING:YES CLARI) FASTING: YES RAC (test code = Performing RAC) Organization Information: Site ID: A Name: [facility] Address: [address] [place] [address] Director: Jake Sow Lab Interpretation Abnormal (test code = 42956-2) [facility] [id number] 18:37:00 Test Item Value Reference Interpretation Comments Range Digoxin (test code = See_Comment L BRITTANY Ant i-Digoxin 39313-5) (Digibind(R)) i n serum/plasma of patients under [...] RAC) Organization Information: Site ID: A Name: [facility] Address: [address] [place] [address] Director: Jake Sow Lab Interpretation Abnormal (test code = 59628-8) [facility] HospitalWzhudzywBZ-jibHFS2344-17-04 18:37:00 Test Item Value Reference Interpretation Comments Range NT-proBNP (test 746 pg/mL H Male Risk: Optimal code = 68840-5) < 253 pg/mL High > or = 253 pg/mL For Heart Failure ( HF) diagnosis, referenceranges in patients with dyspnea are bas ed Hilary PATTON, E t al. J Am Kelly Cardiol.2018;71 [...] <372 pg/mL women) arebased on Oml and T, et al. J Am Kelly Cardiol.2007:50 :205- 14. For patient s with existing H F, the optimal riskcategory cu t point for HF progression (<3 00 pg/mL)is based on Shayy TAPIA, et al. Clin Biochem.2010;43 :1405 -10. For additi onal information, pl ease refer tohttp://educat Magnasense.TitanFile/ faq/PNU539(This link is being provid ed for informational/e ducat ionalpurposes o nly.) CLARI (test code = FASTING:YES CLARI) FASTING: YES RAC (test code = Performing RAC) Organization Information: Site ID: EZ Name: [facility] [facility], Address: [address] [place] [phone] Director: Verenice Flowers MD,PhD,YASH Lab Interpretation Abnormal (test code = 85071-2) [facility] [id number] 18:37:00 Test Item Value Reference Interpretation Comments Range Digoxin (test code = See_Comment L BRITTANY Ant i-Digoxin 84781-1) (Digibind(R)) i n serum/plasma of patients under [...] RAC) Organization Information: Site ID: RGA Name: [facility] [facility] Lab Address: [address] [place] [address] Director: Jake Sow Lab Interpretation Abnormal (test code = 85109-9) [facility] MbzgijagGF-[id number] 18:37:00 Test Item Value Reference Interpretation Comments Range NT-proBNP (test 746 pg/mL H Male Risk: Optimal code = 35247-2) < 253 pg/mL High > or = 253 pg/mL For Heart Failure ( HF) diagnosis, referenceranges in patients with dyspnea are bas ed onJanuzzi JL, E t al. J Am Kelly [...] progression (<3 00 pg/mL)is based on Shayy TAPIA, et al. Clin Biochem.2010;43 :1405 -10. For additi onal information, pl ease refer tohttp://educat ion.TitanFile/ faq/FUS724(This link is being provid ed for informational/e ducat ionalpurposes o nly.) CLARI (test code = FASTING:YES CLARI) FASTING: YES RAC (test code = Performing RAC) Organization Information: Site ID: EZ Name: [employer], Address: [address] [place] [id number] Director: Verenice Flowers MD,PhD,YASH Lab Interpretation Abnormal (test code = 20670-9) [facility] BabinSuqnxgdjQCGF-UzH-8 (COVID-19) RNA [Presence] in Respiratory specimen by SUMANTH with probe [id number] 02:14:28 Test Item Value Reference Range Interpretation Comments SARS-CoV-2 (COVID-19) RNA Not detected Not-Detected [Presence] in Respiratory specimen by SUMANTH with probe detection (test code = 53509-2) Whether patient is employed in a healthcare setting (test code = 01987-7) Whether the patient has symptoms related to condition of interest (test code = 50713-8) Patient was hospitalized because of this condition (test code = 51646-5) Whether the patient was admitted to intensive care unit (ICU) for condition of interest (test code = 63449-6) Whether patient resides in a congregate care setting (test code = 29637-6) IMMUNOFIXATION ELECTROPHORESIS (ANAND)2018-03-22 09:59:00 Test Item Value Reference Range Interpretation Comments IMMUNOGLOBULIN G (IGG) 944 mg/dL 540-1822 (BEAKER) (test code = 427) IMMUNOGLOBULIN A (IGA) 137 mg/dL 63-484 (BEAKER) (test code = 639) IMMUNOGLOBULIN M (IGM) 41 mg/dL 22-293 (BEAKER) (test code = 638) SERUM ANAND ID (BEAKER) No monoclonal (test code = 1814) proteins detected. Polyclonal distribution of immunoglobulins. [id number] Angely Santos ([facility]) (test code = (electronic 8364) signature) PROTEIN ELECTROPHORESIS, [id number] 16:21:00 Test Item Value Reference Range Interpretation [...] significant change from previous study performed 12-13-17. [id number]-113 Angely Santos MD ([facility]) (test code = (electronic signature) 9007) PROTEIN TOTAL SERUM, 6.4 gm/dL 6.0-8.3 SPEP (BEAKER) (test code = 3835) TSH/FREE T4 IF [id number] 09:28:00 Test Item Value Reference Range Interpretation Comments THYROID STIMULATING HORMONE 3.29 uIU/mL 0.35-4.94 (BEAKER) (test code = 772) B-TYPE NATRIURETIC FACTOR (BNP)2018-03-15 09:11:00 Test Item Value Reference Range Interpretation Comments B-TYPE NATRIURETIC PEPTIDE (BEAKER) 641 pg/mL 0-100 H (test code = 700) LIPID [id number] 09:05:00 Test Item Value Reference Range Interpretation [...] 130-159 High 160-189 Very High >=190BASIC METABOLIC [id number] 09:05:00 Test Item Value Reference Range Interpretation [...] APPLICABLE FOR DIALYSIS PATIEN TS. HEPATIC FUNCTION [id number] 09:05:00 Test Item Value Reference Range Interpretation [...] 6-55 347) CBC W/PLT COUNT & AUTO [id number] 09:02:00 Test Item Value Reference Range Interpretation [...] PERCENT (BEAKER) (test code = 2801) HEMOGLOBIN [id number] 12:30:00 Test Item Value Reference Range Interpretation Comments HEMOGLOBIN A1C (BEAKER) (test code = 6.3 % 4.3-6.1 H 368) ALKALINE [id number] 10:37:00 Test Item Value Reference Range Interpretation Comments ALKALINE PHOSPHATASE (BEAKER) (test 43 U/L 40-150 code = 346) [id number] 10:37:00 Test Item Value Reference Range Interpretation Comments POTASSIUM (BEAKER) (test code = 5.6 meq/L 3.5-5.1 H 379) [id number] 10:37:00 Test Item Value Reference Range Interpretation Comments MAGNESIUM (BEAKER) (test code = 1.9 mg/dL 1.6-2.6 627) [id number] 10:37:00 Test Item Value Reference Range Interpretation Comments SODIUM (BEAKER) (test code = 381) 137 meq/L 136-145 AST (SGOT)2017-12-21 10:37:00 Test Item Value Reference Range Interpretation Comments AST (SGOT) (BEAKER) (test code = 353) 24 U/L 5-34 ALT (SGPT)2017-12-21 10:37:00 Test Item Value Reference Range Interpretation Comments ALT (SGPT) (BEAKER) (test code = 347) 23 U/L 6-55 BILIRUBIN, ADULT [id number] 10:37:00 Test Item Value Reference Range Interpretation Comments BILIRUBIN TOTAL (BEAKER) (test code 0.3 mg/dL 0.2-1.2 = 377) BILIRUBIN, [id number] 10:37:00 Test Item Value Reference Range Interpretation Comments BILIRUBIN DIRECT (BEAKER) (test 0.2 mg/dL 0.1-0.5 code = 706) [id number] 10:37:00 Test Item Value Reference Range Interpretation Comments CHLORIDE (BEAKER) (test code = 382) 102 meq/L 98-107 CREATINE KINASE (CK)2017-12-21 10:37:00 Test Item Value Reference Range Interpretation Comments CREATINE KINASE TOTAL (BEAKER) (test 166 U/L 29-200 code = 380) LACTATE DEHYDROGENASE (LDH)2017-12-21 10:37:00 Test Item Value Reference Range Interpretation Comments LACTATE DEHYDROGENASE (BEAKER) (test 223 U/L 125-220 H code = 635) BUN AND [id number] 10:37:00 Test Item Value Reference Range Interpretation [...] ID (BEAKER) No monoclonal (test code = 1534) proteins detected. Polyclonal distribution of immunoglobulins. [id number]-636 Angely Santos, (BEAKER) (test code = (electronic 0414) signature) PROTEIN ELECTROPHORESIS, [id number] 15:31:00 Test Item Value Reference Range Interpretation [...] present (BEAKER) (test code = in expected 261) distribution. No monoclonal bands detected. [id number]-750 Angely Santos MD (BEAKER) (test code = (electronic signature) 4611) PROTEIN TOTAL SERUM, 6.4 gm/dL 6.0-8.3 SPEP (BEAKER) (test code = 3820) [id number] 15:30:00 Test Item Value Reference Range Interpretation Comments POTASSIUM (BEAKER) (test code = 5.4 meq/L 3.5-5.1 H 379) TSH/FREE T4 IF [id number] 12:17:00 Test Item Value Reference Range Interpretation Comments THYROID STIMULATING HORMONE 3.18 uIU/mL 0.35-4.94 (BEAKER) (test code = 772) BASIC METABOLIC [id number] 12:02:00 Test Item Value Reference Range Interpretation [...] = 700) CBC W/PLT COUNT & AUTO [id number] 11:36:00 Test Item Value Reference Range Interpretation [...] PERCENT (BEAKER) (test code = 2801) HEMOGLOBIN [id number] 12:52:00 Test Item Value Reference Range Interpretation Comments HEMOGLOBIN A1C (BEAKER) (test code = 7.9 % 4.3-6.1 H 368) TSH/FREE T4 IF [id number] 12:22:00 Test Item Value Reference Range Interpretation Comments THYROID STIMULATING HORMONE 2.15 uIU/mL 0.35-4.94 (BEAKER) (test code = 772) B-TYPE NATRIURETIC FACTOR (BNP)2017-09-06 11:57:00 Test Item Value Reference Range Interpretation Comments B-TYPE NATRIURETIC PEPTIDE (BEAKER) 364 pg/mL 0-100 H (test code = 700) URIC [id number] 11:55:00 Test Item Value Reference Range Interpretation Comments URIC ACID (BEAKER) (test code = 6.6 mg/dL 2.6-7.2 773) [id number] 11:55:00 Test Item Value Reference Range Interpretation Comments MAGNESIUM (BEAKER) (test code = 1.6 mg/dL 1.6-2.6 627) BASIC METABOLIC [id number] 11:55:00 Test Item Value Reference Range Interpretation [...] NOT APPLICABLE FOR DIALYSIS PATIEN TS. LIPID [id number] 11:55:00 Test Item Value Reference Range Interpretation [...] 130-159 High 160-189 Very High >=190HEPATIC FUNCTION [id number] 11:55:00 Test Item Value Reference Range Interpretation [...] (test code = 13 U/L 6-55 347) [id number] 11:51:00 Test Item Value Reference Range Interpretation Comments PREALBUMIN (BEAKER) (test code = 29 mg/dL 14-45 586) PROTHROMBIN [id number] 11:41:00 Test Item Value Reference Range Interpretation [...] mechanical heart valves.CBC W/PLT COUNT & AUTO [id number] 11:33:00 Test Item Value Reference Range Interpretation [...] (test code = 2801) RAD, BONE DENSITY [id number] 09:58:00Reason for exam:->heart transplant evaluation. screening for osteoporosisShould this be performedat the bedside?->NoFINAL REPORT Technique: Bone mineral density of the lumbar spine and both femoral necks performed on 08/16/2017 Clinical History: Osteopenia screening. Comparison: None Bone mineral density measurementLumbar spine1.382 gm/hi8Rgbk Femoral neck1.157 gm/qs0Juyoj Femoral neck1.120 gm/cm2 Standard deviation from young [...] measurement greater than 2.5 standard deviations Signed: Rosines, Phyllis A. MDReport Verified Date/Time: 08/16/2017 09:58:30 Reading Location: [facility] Radiology Reading Room [id number] 12:15:00 Test Item Value Reference Range Interpretation Comments MAGNESIUM (BEAKER) (test code = 1.2 mg/dL 1.6-2.6 L 627) BASIC METABOLIC [id number] 12:15:00 Test Item Value Reference Range Interpretation [...] = 700) FLOW PRA CLASS I AND [id number] 11:17:00 Test Item Value Reference Range Interpretation Comments DATE OF SERUM (BEAKER) 678227 (test code = 2289) SERUM # (BEAKER) (test 134585 code = 2290) FLOW PRA CLASS I AND II See Scanned Report (test code = 2421) HLA [id number] 07:15:00 Test Item Value Reference Range Interpretation Comments HLA RESULT (BEAKER) (test See Scanned Report code = 1579) HLA-A AG1 (BEAKER) (test code = 2521) [...] (test code = 2583) HERPES VIRUS ANTIBODY, [id number] 14:18:00 Test Item Value Reference Range Interpretation Comments HERPES VIRUS IGM Negative HSV 1 IGM = NEGHSV 2 (BEAKER) (test code = IGM = NEG 1808) TOXOPLASMA GONDII ANTIBODY, [id number] 14:18:00 Test Item Value Reference Range Interpretation Comments TOXOPLASMA IGM ANTIBODY (BEAKER) Negative (test code = 742) PROTEIN ELECTROPHORESIS, [id number] 09:23:00 Test Item Value Reference Range Interpretation [...] of all clinical and laboratory data available. [facility] Test perform ed T-119 (BEAKER) and interpret ed (test code = by Involver [facility] 7833) [place] Labs. PROTEIN TOTAL 6.7 gm/dL 6.0-8.5 RR: 6.1-8.1 g/ dL SERUM, SPEP (BEAKER) (test code = 2660) URINE PROTEIN ELECTROPHORESIS, [id number] 08:49:00 Test Item Value Reference Range Interpretation Comments PROTEIN, URINE 12 mg/dL 0-14 (BEAKER) (test code = 1569) ALBUMIN URINE ELP 33.0 % (BEAKER) (test code = 1018) GAMMA GLOBULIN 67.0 % URINE (BEAKER) (test code = 1015) UPEP, ID-438 Pattern consistent (BEAKER) (test with mixed code = 8474) glomerular and tubular proteinuria. [facility]- Test perfo rmed and 438 (BEAKER) interpreted by (test code = Involver Jber 7098) [place] L abs. POCT-GLUCOSE [id number] 17:07:00 Test Item Value Reference Range Interpretation Comments POC-GLUCOSE METER 283 mg/dL 70-110 H [facility] 67 [facility] (test code = [facility] 1538) [address] POCT-GLUCOSE [id number] 12:48:00 Test Item Value Reference Range Interpretation Comments POC-GLUCOSE METER 148 mg/dL 70-110 H TESTED AT [facility] 67 [facility] (test code = [facility] 1538) [address] POCT-GLUCOSE [id number] 07:37:00 Test Item Value Reference Range Interpretation Comments POC-GLUCOSE METER 154 mg/dL 70-110 H TESTED AT [place] [address] ([facility] (test code = [facility] 1538) [address] [id number] 07:11:00 Test Item Value Reference Range Interpretation Comments MAGNESIUM (BEAKER) (test code = 1.5 mg/dL 1.6-2.6 L 627) BASIC METABOLIC [id number] 07:11:00 Test Item Value Reference Range Interpretation [...] 0-0 (BEAKER) (test code = 413) POCT-GLUCOSE [id number] 21:29:00 Test Item Value Reference Range Interpretation Comments POC-GLUCOSE METER 142 mg/dL 70-110 H TESTED AT [place] [address] ([facility]) (test code = DOUGLAS Peña [facility] 1538) [address] POCT-GLUCOSE [id number] 17:29:00 Test Item Value Reference Range Interpretation Comments POC-GLUCOSE METER 258 mg/dL 70-110 H TESTED AT [place] [address] ([facility]) (test code = DOUGLAS Peña [facility] 1538) [address] TOXOPLASMA GONDII ANTIBODY, [id number] 15:37:00 Test Item Value Reference Range Interpretation Comments TOXOPLASMA GONDII IGG ([facility]) (test Negative code = 419) POCT-GLUCOSE [id number] 11:56:00 Test Item Value Reference Range Interpretation Comments POC-GLUCOSE METER 190 mg/dL 70-110 H TESTED AT [place] [address] ([facility]) (test code = DOUGLAS Peña [facility] 1538) [address] CREATININE [id number] 09:09:00 Test Item Value Reference Range Interpretation Comments CREATININE CLEARANCE 56.5 mL/min 70.0-140.0 L ([facility]) (test code = 357) VOLUME, TOTAL ([facility]) 2500 ml (test code = 1457) CREATININE URINE 46.2 mg/dL ([facility]) (test code = 375) [id number] Angely Santos MD ([facility]) (test code = (electronic signature) 8798) POCT-GLUCOSE [id number] 07:57:00 Test Item Value Reference Range Interpretation Comments POC-GLUCOSE METER 165 mg/dL 70-110 H TESTED AT [place] [address] ([facility]) (test code = DOUGLAS Peña [facility] 1538) [address] CBC (HEMOGRAM ONLY)2017-07-19 07:06:00 Test Item Value Reference Range Interpretation Comments WHITE BLOOD CELL COUNT ([facility]) 6.5 K/ L 3.5-10.5 (test code = 775) RED BLOOD CELL COUNT (AKER) 4.15 M/ L 4.63-6.08 L (test code = 761) HEMOGLOBIN ([facility]) (test code = 12.5 GM/DL 13.7-17.5 L 410) HEMATOCRIT ([facility]) (test code = 37.8 % 40.1-51.0 L [...] WBC 0-0 (BEAKER) (test code = 413) [id number] 04:55:00 Test Item Value Reference Range Interpretation Comments MAGNESIUM (BEAKER) (test code = 1.6 mg/dL 1.6-2.6 627) BASIC METABOLIC [id number] 04:55:00 Test Item Value Reference Range Interpretation [...] NOT APPLICABLE FOR DIALYSIS PATIEN TS. POCT-GLUCOSE [id number] 21:35:00 Test Item Value Reference Range Interpretation Comments POC-GLUCOSE METER 138 mg/dL 70-110 H TESTED AT [facility] 6720 (BEAKER) (test code = IBETHWY Casey [facility] 1538) [address] POCT-GLUCOSE [id number] 17:20:00 Test Item Value Reference Range Interpretation Comments POC-GLUCOSE METER 108 mg/dL 70-110 TESTED AT [place] [address] ([facility]) (test code = IBETHWY Casey [facility] 1538) [address] VARICELLA ZOSTER ANTIBODY, [id number] 15:46:00 Test Item Value Reference Range Interpretation Comments VARICELLA ZOSTER IGG (AL) ([facility]) > Al (test code = 3197) VARICELLA ZOSTER RESULT INTERPRETATIONS: <=0.8 Al Nonreactive: Presumed non- immune to VZV 0.9-1.0Al Equivocal >=1.1 Al Reactive: Presumed immune to VZV HERPES VIRUS ANTIBODY, [id number] 15:45:00 Test Item Value Reference Range Interpretation Comments HERPES VIRUS IGG Negative HSV 1 IGG = NEGHSV 2 ([facility]) (test code = IGG = NEG 1807) CYTOMEGALOVIRUS ANTIBODY, [id number] 15:45:00 Test Item Value Reference Range Interpretation Comments CYTOMEGALOVIRUS IGG ANTIBODY Positive ([facility]) (test code = 790) CYTOMEGALOVIRUS ANTIBODY, [id number] 15:45:00 Test Item Value Reference Range Interpretation Comments CYTOMEGALOVIRUS IGM ANTIBODY Negative ([facility]) (test code = 816) EBV-VCA ANTIBODY, [id number] 15:45:00 Test Item Value Reference Range Interpretation Comments SARY-NGUYEN VCA IGG ([facility]) (test Positive code = 983) EBV-VCA ANTIBODY, [id number] 15:45:00 Test Item Value Reference Range Interpretation Comments SARY-NGUYEN VCA IGM ([facility]) (test Negative code = 984) ANTI-NUCLEAR ANTIBODY (JOCELYNN)2017-07-18 11:50:00 Test Item Value Reference Range Interpretation Comments ANTI-NUCLEAR ANTIBODY (JOCELYNN) ([facility]) Negative Negative (test code = 418) POCT-GLUCOSE [id number] 11:47:00 Test Item Value Reference Range Interpretation Comments POC-GLUCOSE METER 179 mg/dL 70-110 H TESTED AT [place] [address] ([facility]) (test code = [facility] 1538) [address] [id number] 10:39:00 Test Item Value Reference Range Interpretation Comments RPR SCREEN (BEAKER) (test code = Nonreactive Nonreactive 420) POCT-GLUCOSE [id number] 07:35:00 Test Item Value Reference Range Interpretation Comments POC-GLUCOSE METER 167 mg/dL 70-110 H TESTED AT [facility] 6720 (BEAKER) (test code = [place] 1538) [address] [id number] 07:35:00 Test Item Value Reference Range Interpretation Comments PHOSPHORUS (BEAKER) (test code = 2.9 mg/dL 2.3-4.7 604) [id number] 07:35:00 Test Item Value Reference Range Interpretation Comments MAGNESIUM (BEAKER) (test code = 1.8 mg/dL 1.6-2.6 627) BASIC METABOLIC [id number] 07:35:00 Test Item Value Reference Range Interpretation [...] NOT APPLICABLE FOR DIALYSIS PATIEN TS. PTH, [id number] 07:24:00 Test Item Value Reference Range Interpretation [...] code = 413) HEPATITIS B CORE ANTIBODY, [id number] 22:00:00 Test Item Value Reference Range Interpretation Comments HEPATITIS B CORE TOTAL ANTIBODY Nonreactive Nonreactive (BEAKER) (test code = 497) HEPATITIS PANEL, [id number] 22:00:00 Test Item Value Reference Range Interpretation Comments HEPATITIS A IGM ANTIBODY (BEAKER) Nonreactive Nonreactive (test code = 498) HEPATITIS B CORE IGM ANTIBODY Nonreactive Nonreactive (BEAKER) (test code = 645) HEPATITIS C ANTIBODY (BEAKER) Nonreactive Nonreactive (test code = 367) HEPATITIS B SURFACE ANTIGEN (2) Nonreactive Nonreactive (BEAKER) (test code = 2585) HIV-1 ANTIGEN WITH HIV-1/2 [id number] 22:00:00 Test Item Value Reference Range Interpretation Comments HIV-1 ANTIGEN WITH HIV 1\\T\\2 Nonreactive Nonreactive ANTIBODY (2) (BEAKER) (test code = 2586) HEPATITIS A ANTIBODY, [id number] 22:00:00 Test Item Value Reference Range Interpretation Comments HEPATITIS A IGG ANTIBODY (JOLEEN) Nonreactive Nonreactive (test code = 2797) CREATININE, RANDOM [id number] 21:37:00 Test Item Value Reference Range Interpretation Comments CREATININE URINE (BEAKER) (test 150.2 mg/dL code = 375) Reference Range: No NormalsPROTEIN, RANDOM [id number] 21:37:00 Test Item Value Reference Range Interpretation Comments PROTEIN, URINE (BEAKER) (test code = 12 mg/dL 0-14 1569) [id number] 21:15:00 Test Item Value Reference Range Interpretation Comments PROSTATE SPECIFIC ANTIGEN (BEAKER) 1.0 ng/mL 0.0-4.0 (test code = 844) POCT-GLUCOSE [id number] 20:53:00 Test Item Value Reference Range Interpretation Comments POC-GLUCOSE METER 182 mg/dL 70-110 H TESTED AT [facility] 6720 (JOLEEN) (test code = DOUGLAS Peña [place] 1538) [address] T4, [id number] 20:33:00 Test Item Value Reference Range Interpretation Comments FREE T4 (BEAKER) (test code = 655) 1.27 ng/dL 0.70-1.48 [id number] 20:33:00 Test Item Value Reference Range Interpretation Comments FERRITIN (BEAKER) (test code = 361) 75 ng/mL 5-275 VITAMIN D, [id number]-[id number] 20:32:00 Test Item Value Reference Range Interpretation Comments VITAMIN D 25-OH (BEAKER) (test 24.7 ng/mL 6.6-49.9 code = 2764) Effective 06/27/2017: Reference Range ChangeNew: 6.6-49.9 ng/mL Previous: 13.0- 47.8 ng/mLRecommendedVitamin D Target Range: 30.0-40.0 ng/mLTRANSFERRIN 2017-07-17 20:20:00 Test Item Value Reference Range Interpretation Comments TRANSFERRIN (BEAKER) (test code = 418 mg/dL 174-382 H 541) [id number] 20:17:00 Test Item Value Reference Range Interpretation Comments PREALBUMIN (BEAKER) (test code = 27 mg/dL 14-45 586) IRON, [id number] 20:17:00 Test Item Value Reference Range Interpretation Comments IRON (BEAKER) (test code = 547) 102 ug/dL 40-160 URIC [id number] 20:16:00 Test Item Value Reference Range Interpretation Comments URIC ACID (BEAKER) (test code = 8.3 mg/dL 2.6-7.2 H 773) [id number] 20:16:00 Test Item Value Reference Range Interpretation Comments PHOSPHORUS (BEAKER) (test code = 3.5 mg/dL 2.3-4.7 604) HEPATIC FUNCTION [id number] 20:16:00 Test Item Value Reference Range Interpretation [...] (test code = 17 U/L 6-55 347) [id number] 20:16:00 Test Item Value Reference Range Interpretation Comments AMYLASE (BEAKER) (test code = 349) 72 U/L 25-125 [id number] 20:16:00 Test Item Value Reference Range Interpretation [...] 222 U/L 125-220 H code = 635) [id number] 20:16:00 Test Item Value Reference Range Interpretation Comments LIPASE (BEAKER) (test code = 749) 43 U/L 8-78 RETICULOCYTE [id number] 19:56:00 Test Item Value Reference Range Interpretation Comments RETICULOCYTE COUNT PCT (BEAKER) (test 1.6 % 0.5-1.8 code = 575) CT, CHEST, WITHOUT [id number] 18:13:00FINAL REPORT CT of the Chest and [...] MDReport Verified Date/Time: 07/17/2017 18:13:06 Reading Location: [address] Body Reading Room CT, ABDOMEN, WITHOUT [id number] 18:13:00FINAL REPORT CT of the Chest and [...] Garrett Verified Date/Time: 07/17/2017 18:13:06 Reading Location: [facility] C013Y CT Body Reading Room CT, BRAIN, WITHOUT [id number] 17:55:00FINAL REPORT CT Head without contrast CLINICAL [...] Elizabeth Verified Date/Time: 07/17/2017 17:55:05 Reading Location: [facility] Radiology Reading Room POCT-GLUCOSE [id number] 14:27:00 Test Item Value Reference Range Interpretation Comments POC-GLUCOSE METER 121 mg/dL 70-110 H TESTED AT [place] [address] ([facility]) (test code = [facility] 1538) [id number] POCT-GLUCOSE [id number] 07:28:00 Test Item Value Reference Range Interpretation Comments POC-GLUCOSE METER 158 mg/dL 70-110 H TESTED AT [place] [address] ([facility]) (test code = [facility] 1538) [id number] 04:57:00 Test Item Value Reference Range Interpretation Comments MAGNESIUM ([facility]) (test code = 1.6 mg/dL 1.6-2.6 627) BASIC METABOLIC [id number] 04:57:00 Test Item Value Reference Range Interpretation [...] 0-0 (BEAKER) (test code = 413) POCT-GLUCOSE [id number] 21:00:00 Test Item Value Reference Range Interpretation Comments POC-GLUCOSE METER 160 mg/dL 70-110 H TESTED AT [place] [address] (BEAKER) (test code = DOUGLAS Peña [facility] 1538) [id number] POCT-GLUCOSE [id number] 17:10:00 Test Item Value Reference Range Interpretation Comments POC-GLUCOSE METER 148 mg/dL 70-110 H TESTED AT [place] [address] (BEAKER) (test code = DOUGLAS Peña [facility] 1538) [address] POCT-GLUCOSE [id number] 12:10:00 Test Item Value Reference Range Interpretation Comments POC-GLUCOSE METER 246 mg/dL 70-110 H TESTED AT [place] [address] (BEAKER) (test code = DOUGLAS Peña [facility] 1538) [address] POCT-GLUCOSE [id number] 08:32:00 Test Item Value Reference Range Interpretation Comments POC-GLUCOSE METER 186 mg/dL 70-110 H TESTED AT [place] [address] (BEAKER) (test code = [facility] Casey [facility] 1538) [address] [id number] 06:35:00 Test Item Value Reference Range Interpretation Comments MAGNESIUM (BEAKER) (test code = 1.7 mg/dL 1.6-2.6 627) BASIC METABOLIC [id number] 06:35:00 Test Item Value Reference Range Interpretation [...] 0-0 (BEAKER) (test code = 413) POCT-GLUCOSE [id number] 20:53:00 Test Item Value Reference Range Interpretation Comments POC-GLUCOSE METER 228 mg/dL 70-110 H TESTED AT [facility] 6720 ([facility]) (test code = [place] 1538) [address] POCT-GLUCOSE [id number] 17:06:00 Test Item Value Reference Range Interpretation Comments POC-GLUCOSE METER 194 mg/dL 70-110 H TEST[facility] AT [facility] 67[facility] (test code = [place] 1538) [address] POCT-GLUCOSE [id number] 13:27:00 Test Item Value Reference Range Interpretation Comments POC-GLUCOSE METER 272 mg/dL 70-110 H TESTED AT [facility] 6720 (BEAKER) (test code = [place] 1538) [address] POCT-GLUCOSE [id number] 09:14:00 Test Item Value Reference Range Interpretation Comments POC-GLUCOSE METER 172 mg/dL 70-110 H TESTED AT [facility] 6720 (BEAKER) (test code = [place] 1538) [address] [id number] 07:37:00 Test Item Value Reference Range Interpretation Comments MAGNESIUM (BEAKER) (test code = 2.2 mg/dL 1.6-2.6 627) BASIC METABOLIC [id number] 07:37:00 Test Item Value Reference Range Interpretation Comments SODIUM (BEAKER) 138 meq/L 136-145 (test code = 381) POTASSIUM (BEAKER) 3.5 meq/L 3.5-5.1 (test code = 379) CHLORIDE (BEAKER) 97 meq/L 98-107 L (test code = 382) CO2 (BEAKER) (test 29 meq/L code = 355) BLOOD UREA NITROGEN 24 [...] 43.1 % 40.1-51.0 411) MEAN CORPUSCULAR VOLUME ([facility]) 90.5 fL 79.0-92.2 (test code = 753) MEAN CORPUSCULAR HEMOGLOBIN 30.0 pg 25.7-32.2 ([facility]) (test code = 751) MEAN CORPUSCULAR HEMOGLOBIN CONC 33.2 GM/DL 32.3-36.5 ([facility]) (test code = 752) RED CELL DISTRIBUTION WIDTH 12.6 % 11.6-14.4 ([facility]) (test code = 412) PLATELET COUNT ([facility]) (test 188 K/CU MM 150-450 code = 756) MEAN PLATELET VOLUME ([facility]) 10.0 fL 9.4-12.4 (test code = 754) NUCLEATED RED BLOOD CELLS 0 /100 WBC 0-0 ([facility]) (test code = 413) POCT-GLUCOSE [id number] 21:21:00 Test Item Value Reference Range Interpretation Comments POC-GLUCOSE METER 315 mg/dL 70-110 H TESTED AT [place] [address] ([facility]) (test code = [facility] PEORIADHIRAJ Peña [facility] 1538) [id number] POCT-GLUCOSE [id number] 17:03:00 Test Item Value Reference Range Interpretation Comments POC-GLUCOSE METER 171 mg/dL 70-110 H TESTED AT [place] [address] ([facility]) (test code = [facility] PEORI[facility] Peña [facility] 1538) [address] POCT-GLUCOSE [id number] 12:23:00 Test Item Value Reference Range Interpretation Comments POC-GLUCOSE METER 204 mg/dL 70-110 H TESTED AT [place] [address] ([facility]) (test code = DOUGLAS Peña [facility] 1538) [address] POCT-GLUCOSE [id number] 08:21:00 Test Item Value Reference Range Interpretation Comments POC-GLUCOSE METER 141 mg/dL 70-110 H TESTED AT [place] [address] ([facility]) (test code = [facility] PEORIADHIRAJ Peña [facility] 1538) [id number] CBC (HEMOGRAM ONLY)2017-07-14 06:15:00 Test Item Value Reference Range Interpretation Comments WHITE BLOOD CELL COUNT ([facility]) 7.4 K/ L 3.5-10.5 (test code = 775) RED BLOOD CELL COUNT ([facility]) 4.34 M/ L 4.63-6.08 L (test code [...] WBC 0-0 (BEAKER) (test code = 413) [id number] 03:28:00 Test Item Value Reference Range Interpretation Comments MAGNESIUM (BEAKER) (test code = 1.5 mg/dL 1.6-2.6 L 627) LIPID [id number] 03:28:00 Test Item Value Reference Range Interpretation [...] 130-159 High 160-189 Very High >=190BASIC METABOLIC [id number] 03:28:00 Test Item Value Reference Range Interpretation [...] S NOT APPLICABLE FOR DIALYSIS PATIEN TS. [id number] 02:36:00 Test Item Value Reference Range Interpretation Comments PARTIAL THROMBOPLASTIN TIME 25.9 seconds 22.5-36.0 (BEAKER) (test code = 760) POCT-GLUCOSE [id number] 22:55:00 Test Item Value Reference Range Interpretation Comments POC-GLUCOSE METER 206 mg/dL 70-110 H TESTED AT [facility] 6720 (BEAKER) (test code = [place] 1538) [address] [id number] 18:22:00 Test Item Value Reference Range Interpretation Comments PARTIAL THROMBOPLASTIN TIME 41.6 seconds 22.5-36.0 H (BEAKER) (test code = 760) CREATINE KINASE (CK), TOTAL AND [id number] 12:57:00 Test Item Value Reference Range Interpretation Comments CREATINE KINASE TOTAL (BEAKER) 142 U/L 29-200 (test code = 380) CREATINE KINASE-MB (BEAKER) (test 5.3 ng/mL 0.0-6.6 code = 750) CREATINE KINASE-MB INDEX (BEAKER) 3.7 % (test code = 395) CK-MB Reference Range:<6.7 Normal6.7-10.0 Borderline>10.0 AbnormalTROPONIN [id number] 12:55:00 Test Item Value Reference Range Interpretation [...] acidosis, acute neurological disease, and persistent tachyarrhythmia.POCT-GLUCOSE [id number] 11:57:00 Test Item Value Reference Range Interpretation Comments POC-GLUCOSE METER 105 mg/dL 70-110 TESTED AT [facility] 6720 (JOLEEN) (test code = [place] 1538) [address] HEMOGLOBIN [id number] 10:45:00 Test Item Value Reference Range Interpretation Comments HEMOGLOBIN A1C (JOLEEN) (test code = 7.1 % 4.3-6.1 H 368) TSH/FREE T4 IF [id number] 09:41:00 Test Item Value Reference Range Interpretation Comments THYROID STIMULATING HORMONE 1.16 uIU/mL 0.35-4.94 (JOLEEN) (test code = 772) U/S, RENAL, [id number] 09:15:00Reason for exam:->AKIFINAL REPORT Ultrasound of the [...] Trejo Verified Date/Time: 07/13/2017 09:15:34 Reading Location: [facility] P006J Ultrasound Reading Room APTT 2017-07-13 08:56:00 Test Item Value Reference Range Interpretation Comments PARTIAL THROMBOPLASTIN TIME 27.7 seconds 22.5-36.0 (BEAKER) (test code = 760) Prior to initiating heparinPLATELET [id number] 08:51:00 Test Item Value Reference Range Interpretation Comments PLATELET COUNT (BEAKER) (test 183 K/CU MM 150-450 code = 756) URINALYSIS W/ [id number] 08:45:00 Test Item Value Reference Range Interpretation [...] code = 516) SOURCE(BEAKER) (test code = 2751) POCT-GLUCOSE [id number] 07:58:00 Test Item Value Reference Range Interpretation Comments POC-GLUCOSE METER 186 mg/dL 70-110 H TESTED AT [facility] 6720 (BEAKER) (test code = [place] 1538) [address] RAPID DRUG SCREEN, [id number] 07:31:00 Test Item Value Reference Range Interpretation [...] situations. Chain of custody not maintained. Some [id number] medications, as well as adulterants, may cause inaccurate results. Clinical correlation should be applied. A more comprehensive drug screen or confirmation of a detected drug may be performed upon request. CREATININE, RANDOM [id number] 07:25:00 Test Item Value Reference Range Interpretation Comments CREATININE URINE (BEAKER) (test 39.7 mg/dL code = 375) Reference Range: No NormalsSODIUM, RANDOM [id number] 07:25:00 Test Item Value Reference Range Interpretation Comments SODIUM URINE (BEAKER) (test code = 95 meq/L 243) Reference Range: No NormalsCREATINE KINASE (CK), TOTAL AND [id number] 07:05:00 Test Item Value Reference Range Interpretation Comments CREATINE KINASE TOTAL (BEAKER) 101 U/L 29-200 (test code = 380) CREATINE KINASE-MB (BEAKER) (test 3.8 ng/mL 0.0-6.6 code = 750) CREATINE KINASE-MB INDEX (BEAKER) 3.8 % (test code = 395) CK-MB Reference Range:<6.7 Normal6.7-10.0 Borderline>10.0 AbnormalTROPONIN [id number] 07:05:00 Test Item Value Reference Range Interpretation [...] and persistent tachyarrhythmia.RAD, CHEST, 1 VIEW, NON [id number] 01:09:00Reason for exam:->SHORTNESS OF BREATHShould this be [...] available for dictation secondary to technical issues ([facility] downtime). Signed: Thomas Mock MDReport Verified Date/Time: 07/13/2017 01:09:11 Reading Location: [address] Reading Room CREATINE KINASE (CK), TOTAL AND [id number] 00:42:00 Test Item Value Reference Range Interpretation Comments CREATINE KINASE TOTAL (BEAKER) 66 U/L 29-200 (test code = 380) CREATINE KINASE-MB (BEAKER) (test 2.1 ng/mL 0.0-6.6 code = 750) CREATINE KINASE-MB INDEX (BEAKER) 3.2 % (test code = 395) CK-MB Reference Range:<6.7 Normal6.7-10.0 Borderline>10.0 AbnormalTROPONIN [id number] 00:42:00 Test Item Value Reference Range Interpretation [...] acute neurological disease, and persistent tachyarrhythmia.BASIC METABOLIC [id number] 00:40:00 Test Item Value Reference Range Interpretation [...] = 700) CBC W/PLT COUNT & AUTO [id number] 00:16:00 Test Item Value Reference Range Interpretation [...]
--- NOTE | 2022-06-26 13:51 | EDPHYS ---
Physician Documentation [facility] Name: Han Hyde Age: 72 yrs Sex: Male : 1950 Arrival Date: 06/26/2022 Time: 11:37 Bed 7 Private MD: ED Physician Matthieu Walker HPI: 06/26 12:20 This 72 yrs old Male presents to ER via Ambulatory with complaints of Hand Infection. jh7 12:20 Onset: The symptoms/episode began/occurred 3 day(s) ago. Associated signs and symptoms: jh Pertinent positives: Pain, swelling, redness, Pertinent negatives: fever. Patient states that on Sunday he picked up a board with nails which punctured the palm of his hand. States that the area has become increasingly red, tender, and swollen.. Historical: - Allergies: 12:18 Demerol; ap3 12:18 Lisinopril; ap3 12:18 Xarelto; ap3 - PMHx: 12:18 diabetes mellitus; Hypertensive disorder; ap3 - PSHx: 12:18 heart stent; pacemaker right side; R shoulder replacement; triple bypass; ap3 - Immunization history:: Client reports receiving the 2nd dose of the Covid vaccine, Last tetanus immunization: up to date. - Social history:: Smoking status: Patient denies any tobacco usage or history of. ROS: 12:20 Constitutional: Negative for fever, chills, and weight loss, Eyes: Negative for injury, jh7 pain, redness, and discharge, ENT: Negative for injury, pain, and discharge, Cardiovascular: Negative for chest pain, palpitations, and edema, Respiratory: Negative for shortness of breath, cough, wheezing, and pleuritic chest pain, Abdomen/GI: Negative for abdominal pain, nausea, vomiting, diarrhea, and constipation, Back: Negative for injury and pain, Neuro: Negative for headache, weakness, numbness, tingling, and seizure. 12:20 MS/extremity: Positive for erythema, pain, swelling, tenderness. 12:20 Skin: Positive for cellulitis. 12:20 All other systems are negative. Exam: 12:20 Musculoskeletal/extremity: ROM: intact in all extremities, Circulation is intact in all jh7 extremities. Sensation intact. 12:20 Skin: cellulitis, that is moderate, on the right hand, Significant swelling, erythema, and tenderness to palpation over the palmar aspect of the proximal fifth metacarpal. There is dried blood present at the center of the swelling where the puncture wound occurred.. 12:20 Constitutional: This is a well developed, well nourished patient who is awake, alert, jh7 and in no acute distress. Head/Face: Normocephalic, atraumatic. Cardiovascular: Regular rate and rhythm with a normal S1 and S2. No gallops, murmurs, or rubs. Normal PMI, no JVD. No pulse deficits. Respiratory: Lungs have equal breath sounds bilaterally, clear to auscultation and percussion. No rales, rhonchi or wheezes noted. No increased work of breathing, no retractions or nasal flaring. Abdomen/GI: Soft, non-tender, with normal bowel sounds. No distension or tympany. No guarding or rebound. No evidence of tenderness throughout. Back: No spinal tenderness. No costovertebral tenderness. Full range of motion. Neuro: Awake and alert, GCS 15, oriented to person, place, time, and situation. Motor strength 5/5 in all extremities. Sensory grossly intact. Normal gait. Vital Signs: 12:16 BP 132 / 57; Pulse 70; Resp 18; Temp 98.3; Pulse Ox 100% ; Weight 84.82 kg; Height 5 ap3 ft. 4 in. (162.56 cm); Pain 7/10; 17:15 BP 122 / 57; Pulse 63; Resp 17 S; Pulse Ox 100% on R/A; jd3 12:16 Body Mass Index 32.10 (84.82 kg, 162.56 cm) ap3 MDM: 13:16 Patient medically screened. [facility] 13:45 Differential diagnosis: bacterial infection. Data reviewed: vital signs, nurses notes. [facility] Data interpreted: Pulse oximetry: is 100 %. Interpretation: normal. Counseling: I had a detailed discussion with the patient and/or guardian regarding: the historical points, exam findings, and any diagnostic results supporting the discharge/admit diagnosis, the need for further work-up and treatment in the hospital. Physician consultation: Dudley Cardenas MD was contacted at 13:45, regarding patient's condition, and will see patient in OR, tomorrow, would like admission per Dr. Jake Lima MD would like further tests performed, basic blood tests, EKG, UA, would like medications started, Ancef 2 g. 06/26 13:17 Order name: CBC with Diff 7 06/26 13:17 Order name: BMP [facility] 06/26 13:43 Order name: Urinalysis [facility] 06/26 14:56 Order name: CBC with Automated Diff; Complete Time: 15:14 EDMS 06/26 15:03 Order name: Basic Metabolic Panel; Complete Time: 15:14 EDMS 06/26 15:33 Order name: SARS RAPID [facility] 06/26 13:17 Order name: XRAY Hand RIGHT 3 View [facility] 06/26 14:42 Order name: RAD; Complete Time: 15:14 EDMS 06/26 15:49 Order name: Urinalysis [facility] 06/26 16:04 Order name: SARS-COV-2 Antigen Rapid [facility] 06/26 17:33 Order name: Phosphorus EDMS 06/26 17:33 Order name: NT PRO-BNP EDWA 06/26 17:33 Order name: Magnesium [facility] 06/26 13:43 Order name: EKG - Nurse/Tech; Complete Time: 14:41 7 EC:39 Rate is 81 beats/min. Rhythm is regular. QRS is negative in lead V1. [place] interval is [facility] normal at 308 msec. QRS interval is normal at 120 msec. QT interval is normal at 362 msec. No Q waves. Clinical impression: Atrial-paced rhythm with prolonged AV conduction. Administered Medications: 14:54 Drug: ceFAZolin 2 grams Route: IVPB; Infused Over: 30 mins; Site: left antecubital; jd3 15:30 Follow up: Response: No adverse reaction; IV Status: Completed infusion [facility] 14:54 Drug: [place] (HYDROcodone-acetaminophen) (7.5 mg-325 mg) 1 tabs Route: PO; jd3 15:49 Follow up: Response: No adverse reaction; RASS: Alert and Calm (0) [facility] Disposition Summary: 06/26/22 13:51 Hospitalization Ordered Hospitalization Status: Observation [facility] Provider: Jake Lima [facility] Location: Telemetry/MedSurg (observation) [facility] Condition: Stable [facility] Problem: new [facility] Symptoms: are unchanged [facility] Bed/Room Type: Standard [facility] Room Assignment: 415(06/26/22 18:00) dw Diagnosis - Cellulitis, unspecified jh7 - Infected Wound jh7 Forms: - Medication Reconciliation Form jh7 - SBAR form jh7 Addendum: 06/28/2022 23:08 Co-signature as Attending Physician, Matthieu Walker MD I agree with the assessment and c stuart plan of care. Signatures: Dispatcher [employer] Santa Reveles RN RN dw Anderson, Corey, MD MD cha Davies, Jonathon RN RN [email or web address] Maddie Vo RN RN ap3 Mary Grace Swann FNP CHECKMAN [facility] Corrections: (The following items were deleted from the chart) 06/26 18:00 13:51 7 dw
--- NOTE | 2022-06-26 13:51 | ER ---
Nurse's Notes [facility] Name: Han Hyde Age: 72 yrs Sex: Male : 1950 Arrival Date: 06/26/2022 Time: 11:37 Bed 7 Private MD: Diagnosis: Cellulitis, unspecified;Infected Wound Presentation: 06/26 12:16 Chief complaint: Patient states: he picked up a board that included a nail on Sunday ap3 06/23/2022. the nail injured the palm of his right hand, and has since become more infected. patient states he went to an urgent care this morning who sent him here to our facility for further evaluation. Coronavirus screen: At this time, the client does not indicate any symptoms associated with coronavirus-19. Ebola Screen: No symptoms or risks identified at this time. Initial Sepsis Screen: Does the patient meet any 2 criteria? No. Patient's initial sepsis screen is negative. Does the patient have a suspected source of infection? No. Patient's initial sepsis screen is negative. Risk Assessment: Do you want to hurt yourself or someone else? Patient reports no desire to harm self or others. Onset of symptoms was June 23, 2022. 12:16 Method Of Arrival: Ambulatory ap3 12:16 Acuity: RAUL 3 ap3 Triage Assessment: 12:19 General: Appears in no apparent distress. Behavior is calm, cooperative, appropriate ap3 for age. Pain: Complains of pain in right hand Pain currently is 7 out of 10 on a pain scale. Neuro: Level of Consciousness is awake, alert, obeys commands, Oriented to person, place, time, situation. Cardiovascular: Patient's skin is warm and dry. Respiratory: Airway is patent Respiratory effort is even, unlabored. Derm: Wound noted right hand. Historical: - Allergies: 12:18 Demerol; ap3 12:18 Lisinopril; ap3 12:18 Xarelto; ap3 - PMHx: 12:18 diabetes mellitus; Hypertensive disorder; ap3 - PSHx: 12:18 heart stent; pacemaker right side; R shoulder replacement; triple bypass; ap3 - Immunization history:: Client reports receiving the 2nd dose of the Covid vaccine, Last tetanus immunization: up to date. - Social history:: Smoking status: Patient denies any tobacco usage or history of. Screenin:20 Abuse screen: Denies threats or abuse. Nutritional screening: No deficits noted. ap3 Tuberculosis screening: No symptoms or risk factors identified. 14:57 Fall Risk IV access (20 points). Ambulatory Aid- None/Bed Rest/Nurse Assist (0 pts). jd3 Gait- Normal/Bed Rest/Wheelchair (0 pts) Mental Status- Oriented to own ability (0 pts). Total Tabor Fall Scale indicates No Risk (0-24 pts). Assessment: 14:54 General: Appears in no apparent distress. comfortable, Behavior is calm, cooperative, jd3 appropriate for age. Pain: Complains of pain in right hand Quality of pain is described as sharp, shooting, tender, throbbing. Neuro: Keller Agitation-Sedation Scale (RASS): 0 - Alert and Calm Level of Consciousness is awake, alert, obeys commands, Oriented to person, place, time, situation. Cardiovascular: Denies chest pain, Capillary refill < 3 seconds Patient's skin is warm and dry. Rhythm is A-V sequential pacer. Respiratory: Airway is patent Respiratory effort is even, unlabored, Respiratory pattern is regular, symmetrical, Denies cough, shortness of breath. GI: No signs and/or symptoms were reported involving the gastrointestinal system. : No signs and/or symptoms were reported regarding the genitourinary system. EENT: No signs and/or symptoms were reported regarding the EENT system. Derm: Skin is intact, Skin is dry, Skin is normal, Skin temperature is warm Wound noted right hand Wound is puncture wound noted to right hand. redness and swelling noted to right hand through to the forearm. Musculoskeletal: Circulation, motion, and sensation intact. Range of motion: intact in all extremities. 15:50 Reassessment: Patient appears in no apparent distress at this time. Patient and/or jd3 family updated on plan of care and expected duration. Pain level reassessed. Patient is alert, oriented x 3, equal unlabored respirations, skin warm/dry/pink. reporting pain is feeling better Patient states feeling better. 16:50 Reassessment: Patient appears in no apparent distress at this time. No changes from jd3 previously documented assessment. Patient and/or family updated on plan of care and expected duration. Pain level reassessed. Patient is alert, oriented x 3, equal unlabored respirations, skin warm/dry/pink. pt administered home dose of insulin for elevated BGL level on sensor on his arm. 18:09 Reassessment: Patient appears in no apparent distress at this time. Patient and/or jd3 family updated on plan of care and expected duration. Pain level reassessed. Patient is alert, oriented x 3, equal unlabored respirations, skin warm/dry/pink. Vital Signs: 12:16 BP 132 / 57; Pulse 70; Resp 18; Temp 98.3; Pulse Ox 100% ; Weight 84.82 kg; Height 5 ap3 ft. 4 in. (162.56 cm); Pain 7/10; 17:15 BP 122 / 57; Pulse 63; Resp 17 S; Pulse Ox 100% on R/A; jd3 12:16 Body Mass Index 32.10 (84.82 kg, 162.56 cm) ap3 ED Course: 11:37 Patient arrived in ED. rg4 12:18 Triage completed. ap3 12:20 Arm band placed on left wrist. ap3 13:13 [facility] jh7 13:13 Matthieu Walker MD is Attending Physician. jh7 13:47 Jake Lima MD is Hospitalizing Provider. jh7 14:19 Xaiv Jackman RN is Primary Nurse. jd3 14:40 Inserted saline lock: 20 gauge in left antecubital area, using aseptic technique. Blood jd3 collected. 14:56 Patient has correct armband on for positive identification. Bed in low position. Call jd3 light in reach. Side rails up X 1. Pulse ox on. NIBP on. 18:47 No provider procedures requiring assistance completed. Patient admitted, IV remains in jd3 place. Administered Medications: 14:54 Drug: ceFAZolin 2 grams Route: IVPB; Infused Over: 30 mins; Site: left antecubital; jd3 15:30 Follow up: Response: No adverse reaction; IV Status: Completed infusion jd3 14:54 Drug: Ken[place] (HYDROcodone-acetaminophen) (7.5 mg-325 mg) 1 tabs Route: PO; jd3 15:49 Follow up: Response: No adverse reaction; RASS: Alert and Calm (0) jd3 Medication: 12:20 VIS not applicable for this client. ap3 Outcome: 13:51 Decision to Hospitalize by Provider. jh7 18:47 Patient left the ED. jd3 18:47 Admitted to Med/surg accompanied by nurse, via wheelchair, room 415, with chart, Report jd3 called to Daniela LIN 18:47 Condition: stable 18:47 Instructed on the need for admit, Demonstrated understanding of instructions. Signatures: Che Rae rg4 Xavi Jackman RN RN jd3 Maddie Vo RN RN ap3 Mary Grace Swann, THERMOCOUPLE TESTER THERMOCOUPLE TESTER 7 Corrections: (The following items were deleted from the chart) 17:37 16:50 Reassessment: Patient appears in no apparent distress at this time. No changes jd3 from previously documented assessment. Patient and/or family updated on plan of care and expected duration. Pain level reassessed. Patient is alert, oriented x 3, equal unlabored respirations, skin warm/dry/pink. jd3
[2022-06-26] MEDS ORDERED: CEFAZOLIN 2 GM IN 0.9% NACL 2 GM/100 ML BAG IV ONE (14:30)
--- NOTE | 2022-06-26 14:41 | RAD REPORT ---
EXAM DESCRIPTION: RAD - Hand Right 3 View - 06/26/2022 2:20 pm CLINICAL HISTORY: Right hand swelling FINDINGS: No fracture or dislocation is seen. No bony destructive lesions seen. Small calcific densities adjacentto several DIP joints are chronic
[2022-06-26] MEDS ORDERED: HYDROCODONE/APAP 7.5/325 MG TAB ONE (14:42)
[2022-06-26 14:49] LABS: Absolute Lymphocytes (CBC) 1.2 K/uL (0.7-4.9); Lymphocytes % 11.6 % (15.3-44.8); MCV 86.7 fL (80-100); MPV 7.5 fL (7.6-11.3); RBC Red Blood Cell Count 4.38 M/uL (4.33-5.43)
[2022-06-26 15:02] LABS: Potassium 4.8 mmol/L (3.5-5.1)
[2022-06-26 15:49] LABS: Specific Gravity 1.009 (1.005-1.030); Urine Bilirubin NEGATIVE (Negative); Urine Blood Negative (Negative); Urine Clarity Clear (Clear); Urine Color Colorless (Yellow); Urine Glucose 3+ (Negative); Urine Protein NEGATIVE (Negative); Urine Urobilinogen Normal (Normal); Urine pH 6.5 (5.0-7.0)
[2022-06-26] MEDS ORDERED: HYDROCODONE/APAP 10/325 TAB PO PRN (15:50)
[2022-06-26 16:04] LABS: SARS-CoV-2 Antigen Rapid Res Negative (Negative)
[2022-06-26] MEDS ORDERED: ACETAMINOPHEN 500 MG TAB PO PRN (16:06)
[2022-06-26] MEDS ORDERED: ONDANSETRON 4 MG/2 ML VIAL IV PRN (16:06)
--- NOTE | 2022-06-26 16:19 | P.HP ---
Certification for Inpatient Patient admitted to: Observation With expected LOS: <2 Midnights Patient will require the following post-hospital care: None Practitioner: I am a practitioner with admitting privileges, knowledge of patient current condition, hospital course, and medical plan of care. Services: Services provided to patient in accordance with Admission requirements found in Title 42 Section 412.3 of the Code of Federal Regulations <MichaeldaisyNick headleyjhoan Headley - Last Filed: 06/27/22 03:49> Patient History Date of Service: 06/27/22 Reason for admission: Right hand wound\swelling\redness - Past Medical/Surgical History Diabetic: Yes -: Hyperlipidemia -: IDDM -: Coronary artery disease -: Chronic systolic congestive heart failure -: Atrial fibrillation on chronic anticoagulation -: CKD [address] Cowart -: Triple bypass-2008 -: Coronary [id number] -: Pacemaker/Defibrillator -: Rt shoulder sx-2015 Psychosocial/ Personal History: Patient is . - Family History Father -: Heart disease, Hypertension, Stroke Mother -: Heart disease, Hypertension - Social History Alcohol use: No CD- Drugs: No Caffeine use: Yes Place of Residence: Home <Brian Geller - Last Filed: 06/27/22 03:49> Date of Service: 06/27/22 <Jake Lima - Last Filed: 06/27/22 05:40> Allergies lisinopril Allergy (Verified 12/09/21 11:11) Rash meperidine [From Demerol] Allergy (Verified 12/09/21 11:11) Hallucinations rivaroxaban [From Xarelto] Allergy (Verified 12/09/21 11:11) Heavy Bleeding Home Medications: RX: Rosuvastatin [Crestor*] 40 mg PO BEDTIME 02/10/17 RX: Magnesium Oxide [Mag 0X*] 400 mg PO BID 03/25/18 RX: carvediloL [Coreg*] 12.5 mg PO BID 03/25/18 RX: Amiodarone HCl [Pacerone] 200 mg PO DAILY 12/09/21 RX: Aspirin [Ecotrin 81 MG] 81 mg PO DAILY 12/09/21 RX: Digoxin [Lanoxin*] 0.125 mg PO DAILY 12/09/21 RX: Dulaglutide [Trulicity] 3 mg PO EVERY 7TH DAY 12/09/21 RX: Fenofibrate [Tricor*] 145 mg PO DAILY 12/09/21 RX: Insulin Aspart [Novolog Flexpen] 17 unit SQ AC 12/09/21 RX: Insulin Degludec [Tresiba Flextouch U-200] 60 unit SQ DAILY 12/09/21 RX: Sodium Zirconium Cyclosilicate [Lokelma] 5 gm PO DAILY 12/09/21 RX: Furosemide [Lasix*] 20 mg PO BID 30 Days #60 tab 06/02/22 Sacubitril/Valsartan [Entresto 24 mg-26 mg Tablet] 1 tab PO BID #60 tab 06/02/22 Review of Systems General: Unremarkable ENT: Unremarkable Respiratory: Unremarkable Cardiovascular: Unremarkable Gastrointestinal: Unremarkable Genitourinary: Unremarkable Musculoskeletal: Hand Pain, Other (Right hand swelling ) Integumentary: Other (Right hand redness\wound ) Neurological: Unremarkable Lymphatics: Unremarkable <Brian Geller E - Last Filed: 06/27/22 03:49> Physical Examination - Physical Exam General: Alert, In no apparent distress, Oriented x3 HEENT: Atraumatic, PERRLA, Mucous membr. moist/pink, EOMI, Sclerae nonicteric Neck: Supple, 2+ carotid pulse no bruit, No LAD, Without JVD or thyroid abnormality Respiratory: Clear to auscultation bilaterally, Normal air movement Cardiovascular: Normal pulses Capillary refill: <2 Seconds Gastrointestinal: Normal bowel sounds, No tenderness Musculoskeletal: Tenderness Integumentary: No rashes, Other (Right hand swelling\redness ) Neurological: Normal gait, Normal speech, Normal tone, Normal affect Lymphatics: No axilla or inguinal lymphadenopathy - Studies Laboratory Data (last 24 hrs) 06/26/22 14:38: Sodium 135 L, Potassium 4.8, BUN 42 H, Creatinine 3.17 H, Glucose 120 H 06/26/22 14:38: WBC 10.60, Hgb 12.9 L, Hct 38.0 L, Plt Count 256 <Brian Geller E - Last Filed: 06/27/22 03:49> - Studies Laboratory Data (last 24 hrs) 06/26/22 14:58: Phosphorus 3.9, Magnesium 2.5 H 06/26/22 14:38: Sodium 135 L, Potassium 4.8, BUN 42 H, Creatinine 3.17 H, Glucose 120 H 06/26/22 14:38: WBC 10.60, Hgb 12.9 L, Hct 38.0 L, Plt Count 256 <Jake Lima - Last Filed: 06/27/22 05:40> Assessment and Plan - Plan -- Right hand cellulitis\wound. Plastic surgeon consulted. Continue antibiotics. We will await further recommendation from plastic surgeon. --Acute pain. We will manage pain with current pain medication regimen. --DM2. BS monitoring with sliding scale insulin. --History of CAD with stent\CABG. Continue Aspirin and statin --Pacemaker presence. Continue supportive care. --Hypertension. Stable. Continue home medications --HLD. Continue statin --CKD 4. Stable. We will continue to monitor renal functions. Patient follows up with an outpatient blind stitch machine operator. --BS monitoring with sliding scale insulin. Continue home insulin regimen. -- HLD. Continue statin. --Acute on chronic systolic CHF exacerbation. Continue diuresis with Lasix. Daily weight and strict I/O. --Class I obesity. Likely secondary to excess calories intake. Patient counseled on weight reduction, diet and exercise therapy. --DVR prophylaxis with Heparin subQ Discharge Plan: Home Plan to discharge in: 48 Hours - Advance Directives Does patient have a Living Will: No Does patient have a Durable POA for Healthcare: No - Code Status/Comfort Care Code Status Assessed: Yes Code Status: Full Code Physician Review: Patient Assessed, Agree with Above Assessment and Plan Critical Care: No <Brian Geller - Last Filed: 06/27/22 03:49> Physician Review: Patient Assessed, Agree with Above Assessment and Plan <Jake Lima - Last Filed: 06/27/22 05:40>
[2022-06-26] MEDS ORDERED: GLUCAGON 1 MG/VIAL IM PRN (16:20)
[2022-06-26] MEDS ORDERED: DEXTROSE 10%-WATER 500 ML IV BAG IV PRN (16:27)
[2022-06-26] MEDS ORDERED: HOME MED 1 EA UNK (Insulin Aspart [Novolog Flexpen] 100 UNIT/ML Insuln.Pen) SQ SCH (16:30)
[2022-06-26] MEDS: INSULIN -REGULAR HUMAN 50 UNIT/0.5 ML ML SQ SCH ×2 (16:30→21:00)
[2022-06-26] MEDS: INSULIN LISPRO 100 UNIT/1 ML SQ SCH (16:30)
[2022-06-26] MEDS: PIPER TAZO 3.375 GM in NA CHLORIDE 0.9% 100 ML IV SCH (17:00)
[2022-06-26 17:33] LABS: Magnesium 2.5 mg/dL (1.8-2.4); Phosphorus 3.9 mg/dL (2.5-4.9)
[2022-06-26] MEDS ORDERED: TDAP (DIPHTH,PERTUSS(ACELL),TET VAC) 0.5 ML VIAL IMVAC ONE (19:15)
[2022-06-26] MEDS: carvediloL 12.5 MG TAB PO SCH (21:00)
[2022-06-26] MEDS: HEPARIN 5000 UNIT/ML 1 ML VIAL SQ SCH (21:00)
[2022-06-26] MEDS: ROSUVASTATIN 10 MG TAB PO SCH (21:00)
[2022-06-26] MEDS: MAGNESIUM OXIDE 400 MG TAB PO SCH (21:00)
[2022-06-26] MEDS: SACUBITRIL/VALSARTAN 24/26 MG TAB PO SCH (21:00)
[2022-06-26] MEDS: FUROSEMIDE 20 MG TABLET PO SCH (21:00)
[2022-06-26] MEDS: MORPHINE 2 MG/ML SYR IV PRN (21:15)
[2022-06-27] MEDS: MORPHINE 2 MG/ML SYR IV PRN (01:07)
[2022-06-27] MEDS: PIPER TAZO 3.375 GM in NA CHLORIDE 0.9% 100 ML IV SCH ×3 (01:09→17:38)
[2022-06-27 02:34] LABS: Specific Gravity 1.012 (1.005-1.030); Urine Bilirubin NEGATIVE (Negative); Urine Blood Negative (Negative); Urine Clarity Clear (Clear); Urine Color Colorless (Yellow); Urine Glucose 4+ (Negative); Urine Protein NEGATIVE (Negative); Urine Urobilinogen Normal (Normal); Urine pH 6.5 (5.0-7.0)
[2022-06-27] MEDS ORDERED: HYDROMORPHONE HCL 0.5 MG/0.5 ML INJ IV ONE (03:44)
[2022-06-27 05:49] LABS: Absolute Lymphocytes (CBC) 0.9 K/uL (0.7-4.9); Hematocrit 35.5 % (39.6-49.0); Lymphocytes % 9.6 % (15.3-44.8); MCV 87.3 fL (80-100); MPV 7.8 fL (7.6-11.3); RBC Red Blood Cell Count 4.06 M/uL (4.33-5.43)
[2022-06-27] MEDS: INSULIN LISPRO 100 UNIT/1 ML SQ SCH ×3 (07:30→17:39)
[2022-06-27] MEDS: INSULIN -REGULAR HUMAN 50 UNIT/0.5 ML ML SQ SCH ×4 (07:30→21:20)
[2022-06-27 08:41] LABS: Magnesium 2.2 mg/dL (1.8-2.4); Phosphorus 3.4 mg/dL (2.5-4.9)
[2022-06-27] MEDS: HOME MED 1 EA UNK (Insulin Degludec [Tresiba Flextouch U-200] 200 UNIT/ML Insuln.Pen) SQ SCH (09:00)
[2022-06-27] MEDS ORDERED: HOME MED 1 EA UNK (Sodium Zirconium Cyclosilicate [Lokelma] 5 GM Powd.Pack) PO SCH (09:00)
[2022-06-27] MEDS: SODIUM ZIRCONIUM CYCLOSILICATE 10 GM/PKT PO SCH (09:00)
[2022-06-27] MEDS: AMIODARONE HCL 200 MG TAB PO SCH (09:32)
[2022-06-27] MEDS: ASPIRIN EC 81 MG TAB PO SCH (09:32)
[2022-06-27] MEDS: carvediloL 12.5 MG TAB PO SCH ×2 (09:32→21:19)
[2022-06-27] MEDS: DIGOXIN 0.125 MG TABLET PO SCH (09:33)
[2022-06-27] MEDS: FENOFIBRATE 160 MG TAB PO SCH (09:33)
[2022-06-27] MEDS: SACUBITRIL/VALSARTAN 24/26 MG TAB PO SCH ×2 (09:33→21:20)
[2022-06-27] MEDS: FUROSEMIDE 20 MG TABLET PO SCH ×2 (09:33→21:18)
[2022-06-27] MEDS: MAGNESIUM OXIDE 400 MG TAB PO SCH ×2 (09:34→21:00)
[2022-06-27] MEDS ORDERED: NA CHLORIDE 0.9% 1,000 ML ONE (13:33)
--- NOTE | 2022-06-27 13:35 | EKG ---
Test Date: 2022-06-26 Test Time: 14:28:00 Secretarial Stenographer: MERLY MEASUREMENT RESULTS: Intervals: Rate: 81 NH: 308 QRSD: 120 QT: 362 QTc: 420 Weed: P: 51 NH: 308 QRS: 150 T: 29 INTERPRETIVE STATEMENTS: Atrial-paced rhythm with prolonged AV conduction Right axis deviation Nonspecific intraventricular conduction delay Nonspecific ST abnormality Abnormal ECG Compared to ECG 05/31/2022 01:19:02 Right-axis deviation now present Intraventricular conduction delay now present Sinus rhythm no longer present First degree AV block no longer present Left bundle-branch block no longer present Possible ischemia no longer present ST (T wave) deviation still present Electronically Signed On 06-27-22 13:33:58 CDT by Buzz Ag
[2022-06-27] MEDS ORDERED: FENTANYL CITR 100 MCG/2 ML ONE (14:04)
[2022-06-27] MEDS ORDERED: propofoL 200 MG/20 ML VIAL IV ONE (14:04)
[2022-06-27] MEDS ORDERED: ONDANSETRON 4 MG/2 ML VIAL ONE (14:08)
[2022-06-27] MEDS ORDERED: LIDOCAINE 2% MPF 5 ML VIAL ONE (14:08)
[2022-06-27] MEDS ORDERED: ROPLVACAINE HCL 40 ML ONE (14:22)
[2022-06-27] MEDS ORDERED: EPINEPHRINE/PF 1 MG/ML AMP ONE (14:22)
[2022-06-27] MEDS ORDERED: dexAMETHasone 10 MG/ML VIAL ONE (14:22)
[2022-06-27] MEDS ORDERED: LIDOCAINE 1% MPF 5 ML VIAL ONE (14:22)
[2022-06-27] MEDS ORDERED: SILVER SULFADIAZINE 1% 25 GM TOP ONE (15:26)
[2022-06-27] MEDS ORDERED: Phenylephrine HCl 10 MG/ML 1 ML VIAL ONE (15:26)
[2022-06-27] MEDS ORDERED: NS 0.9% VIAL 10 ML ONE (15:26)
--- NOTE | 2022-06-27 17:41 | P.PN ---
Subjective Date of Service: 06/27/22 Chief Complaint: Right hand wound\\swelling\\redness Subjective: No new changes No acute events overnight. He reports significant pain at the base of his right hand and the site of the wound. He denies fevers, chills, diaphoresis. Review of Systems 10-point ROS is otherwise unremarkable Musculoskeletal: Hand Pain (right) Physical Examination - Vital Signs Temperature: 97.5 F Blood Pressure: 100/56 Pulse: 60 Respirations: 18 Pulse Ox (%): 96 - Physical Exam General: Alert, In no apparent distress, Oriented x3 HEENT: Atraumatic, PERRLA, Mucous membr. moist/pink, EOMI, Sclerae nonicteric Neck: Supple, JVD not distended Respiratory: Clear to auscultation bilaterally, Normal air movement Cardiovascular: No edema, Regular rate/rhythm, Normal S1 S2, No gallops, No rubs, No murmurs Capillary refill: <2 Seconds Gastrointestinal: Normal bowel sounds, Soft and benign, Non-distended, No tenderness, No rebound, No guarding Musculoskeletal: No clubbing Integumentary: Tenderness/swelling (ulnar base of right hand), Erythema (ulnar base of right hand), Warmth (ulnar base of right hand) Neurological: Normal speech, Cranial nerves 3-12 intact, Normal affect Assessment And Plan - Plan # Right Hand Puncture Wound with Cellulitis - Does not currently meet sepsis criteria - Hand x-ray = "No fracture or dislocation is seen. No bony destructive lesions seen. Small calcific densities adjacentto several DIP joints are chronic" - Hand Surgery consulted and Dr. Cardenas notified by ED provider - Plan for surgery today - S/P Tdap vaccine - Continue piperacillin-tazobactam - Wound cultures to be obtained during surgery # KDIGO Stage I Acute Kidney Injury on Chronic Kidney Disease Stage IV - Creatinine = 3.17 -> 3.19 (baseline creatinine ~2.4-2.5) - Urinalysis = 4+ glucosuria - Monitor creatinine and urine output - If worsening, obtain renal ultrasound - Renally dose medications # Coronary Artery Disease s/p CABG # Hypertension # Hyperlipidemia - Stable - Continue home aspirin, atorvastatin, carvedilol, fenofibrate # Chronic Compensated Systolic Congestive Heart Failure with Reduced Ejection Fraction s/p AICD # Chronic Atrial Fibrillation s/p PPM - TTE = "SEVERE GLOBAL HYPOKINESIS. EJECTION FRACTION 26%. MILD MITRAL AND TRICUSPID REGURGITATION. 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
[2022-06-27 18:08] VITALS: BMI 32.1
[2022-06-27] MEDS: ROSUVASTATIN 10 MG TAB PO SCH (21:19)
[2022-06-27] MEDS: HEPARIN 5000 UNIT/ML 1 ML VIAL SQ SCH (21:20)
[2022-06-28] MEDS: PIPER TAZO 3.375 GM in NA CHLORIDE 0.9% 100 ML IV SCH ×3 (00:49→16:55)
[2022-06-28 04:09] LABS: Absolute Lymphocytes (CBC) 0.6 K/uL (0.7-4.9); Hematocrit 35.8 % (39.6-49.0); Lymphocytes % 6.8 % (15.3-44.8); MCV 87.9 fL (80-100); MPV 7.8 fL (7.6-11.3); RBC Red Blood Cell Count 4.07 M/uL (4.33-5.43)
[2022-06-28 04:24] LABS: Potassium 5.1 mmol/L (3.5-5.1)
[2022-06-28 05:07] LABS: Blood Morphology Comment NOT SEEN (NOT SEEN); Platelet Estimate ADEQ
--- NOTE | 2022-06-28 06:52 | HP ---
Date of Admission: 06/26/2022 History Of Present Illness: The patient is a 72-year-old white male, who is left-hand dominant, who fell and injured his right hand when he fell Past Medical History: He has history of diabetes. Social History: He does not smoke. He does not drink. Medications: He takes insulin 70 units .allergic to lisinopril. He is on multiple medications see list. Physical Examination: He is 5 feet 4 inches, 107 pounds. Examination of the right hand, palmar aspect, hypothenar region, the patient has 2 open wounds, 1 more distal and 1 proximal approximately over the metacarpal base. the other about midshaft metacarpal finger, distal 1, approximately 3 mm in diameter. The proximal 1 is about 5 mm in diameter with surrounding erythema and purple discoloration and purulent drainage. Assessment: Puncture wound of the hand. Plan: Incision and drainage, debridement. TOMASA/APARNA Voice ID: [id number] [facility] HOSPITALDane
[2022-06-28] MEDS: INSULIN -REGULAR HUMAN 50 UNIT/0.5 ML ML SQ SCH ×4 (07:30→21:53)
--- NOTE | 2022-06-28 07:42 | OP ---
Surgeon: Dudley Cardenas MD Preoperative Diagnosis: Puncture wound to the right hand. Postoperative Diagnosis: Puncture wound to the right hand. Procedure: Debridement of skin and subcutaneous tissue and incision and drainage of abscess. Anesthesia: General. Procedure In Detail: After satisfactory anesthesia, the right hand was prepped with Betadine scrub, Betadine paint, dry sterile drapes placed and applied in usual manner. Elliptical incision was made around the distal wound first and tracked radially and distally and extended proximally. We thus pro ceeded down through subcutaneous tissue. There was no significant injuries. No pus present. More p roximally, wound was extended proximally and distally towards the carpal tunnel and the wound was ope cecy. Dev pus was encountered. Cultures were taken. All necrotic tissue was removed and the wound jet lavaged and irrigated with 3 L of dilute Betadine solution. Tourniquet was released. Electroca utery was used for hemostasis. Wound was packed with 0.5 inch Nu Gauze soaked in Silvadene cream and Kerlix. The patient tolerated the procedure well and returned to recovery. TOMASA/APARNA Voice ID: [id number] Report ID: [id number]
[2022-06-28] MEDS ORDERED: PIPERACIL/TAZO 3.375 GM VIAL IV ONE (08:46)
[2022-06-28] MEDS ORDERED: NA CHLORIDE 0.9% 100 ML ONE (08:50)
[2022-06-28] MEDS: HOME MED 1 EA UNK (Insulin Degludec [Tresiba Flextouch U-200] 200 UNIT/ML Insuln.Pen) SQ SCH (09:00)
[2022-06-28] MEDS: MAGNESIUM OXIDE 400 MG TAB PO SCH ×2 (09:00→21:00)
[2022-06-28] MEDS: SODIUM ZIRCONIUM CYCLOSILICATE 10 GM/PKT PO SCH (09:11)
[2022-06-28] MEDS: SACUBITRIL/VALSARTAN 24/26 MG TAB PO SCH ×2 (09:12→21:00)
[2022-06-28] MEDS: DIGOXIN 0.125 MG TABLET PO SCH (09:12)
[2022-06-28] MEDS: carvediloL 12.5 MG TAB PO SCH ×2 (09:12→21:00)
[2022-06-28] MEDS: AMIODARONE HCL 200 MG TAB PO SCH (09:13)
[2022-06-28] MEDS: FENOFIBRATE 160 MG TAB PO SCH (09:13)
[2022-06-28] MEDS: ASPIRIN EC 81 MG TAB PO SCH (09:13)
[2022-06-28] MEDS: FUROSEMIDE 20 MG TABLET PO SCH ×2 (09:13→21:00)
[2022-06-28] MEDS: INSULIN LISPRO 100 UNIT/1 ML SQ SCH ×3 (09:18→16:56)
[2022-06-28] MEDS: HEPARIN 5000 UNIT/ML 1 ML VIAL SQ SCH ×2 (09:38→21:53)
[2022-06-28] MEDS: SILVER SULFADIAZINE 1% 50 GM TOP SCH ×2 (09:39→21:53)
--- NOTE | 2022-06-28 10:34 | PN ---
The patient is getting dressing changes. He is pain free. Plan is for tomorrow debridement plus flap removal after closure. He is n.p.o. at midnight. TOMASA/APARNA Voice ID: [id number] Report ID: [id number] MTDD
[2022-06-28] MEDS ORDERED: TETANUS & DIPHTHERIA TOX,ADULT 0.5 ML VIAL IMVAC ONE (12:00)
--- NOTE | 2022-06-28 15:38 | P.PN ---
Nephrology note: (S) Pt known to me from recent consultation last mo, see consult note done within the past 30 days from 05/31 for further details. Pt sees Dr. Cowart in clinic. Pt admitted with infection of the hand, he denies any dyspnea, he has been doing ok from his HF standpoint since discharge. (O) Vitals reviewed in the EMR General: Alert, In no apparent distress, Oriented x3 HEENT: Atraumatic, Normocephalic, Mucous membr. moist/pink, EOMI Neck: Supple, Other (JVD difficult to appreciate) Respiratory: Normal air movement, no rales Cardiovascular: No edema, Regular rate/rhythm, Normal S1 S2 Gastrointestinal: Soft and benign, Non-distended, No tenderness Musculoskeletal: No clubbing, No swelling of the LE, No contractures Integumentary: No rashes, No breakdown Neurological: Normal speech, Normal affect Laboratory Data (last 24 hrs) Reviewed Conclusions/Impression: 1. Abnormal results of kidney function studies 2. Underlying CKD IV 3. Hx of hyperkalemia 4. Chronic systolic CHF. Cardiomyopathy unspecified 5. Relative hypotension 2nd to meds/other -Baseline Cr levels in the 2.4-2.7 mg/dl range. EDIE last mo 2nd to suspected CRS, renal function marginally better/stable since although has not improved to prior levels seen. Renal imaging last month did not show any obstructive ur opathy. -Cont to monitor renal function closely, PO lasix will be continued at this time. -Low dose Entresto was resumed on discharge last mo, SBP earlier today was recorded as low as systolic 90s, will lower Entresto dose to 1/[address] holding parameter -Hold SGLT2i agents at this time until eGFR improves -Pt was taking Lokelma as an OP, and while he would benefit from continued scheduled cation exchanger therapy in light of his CKD and to prevent recurrent hyperkalemia, Veltassa would be preferred to avoid sodium load associated with Lokelma -Target BP < 130/80. -Target better diabetic control. -Renal u/s done recently did not reveal the > 5 mm stone seen on CT in the summer, no current flank or back pain reported. Did order UA but not done. Bhupinder Rob MD, RICHARD Rob MD, RICHARD [facility]
--- NOTE | 2022-06-28 19:40 | P.PN ---
Subjective Date of Service: 06/28/22 Chief Complaint: Right hand wound\\swelling\\redness Post-Op day #1 from I&D of right hand wound. He reports post-operative pain. He denies fevers, chills. Review of Systems 10-point ROS is otherwise unremarkable Musculoskeletal: Hand Pain (right) Physical Examination - Vital Signs Temperature: 97.5 F Blood Pressure: 85/51 Pulse: 68 Respirations: 14 Pulse Ox (%): 97 Assessment And Plan - Plan - Physical Exam General: Alert, In no apparent distress, Oriented x3 HEENT: Atraumatic, PERRLA, Mucous membr. moist/pink, EOMI, Sclerae nonicteric Neck: Supple, JVD not distended Respiratory: Clear to auscultation bilaterally, Normal air movement Cardiovascular: No edema, Regular rate/rhythm, Normal S1 S2, No gallops, No rubs, No murmurs Capillary refill: <2 Seconds Gastrointestinal: Normal bowel sounds, Soft and benign, Non-distended, No tenderness, No rebound, No guarding Musculoskeletal: No clubbing Integumentary: Tenderness/swelling (ulnar base of right hand), Erythema (ulnar base of right hand), Warmth (ulnar base of right hand) Neurological: Normal speech, Cranial nerves 3-12 intact, Normal affect # Right Hand Puncture Wound with Cellulitis - Does not currently meet sepsis criteria - Hand x-ray = "No fracture or dislocation is seen. No bony destructive lesions seen. Small calcific densities adjacentto several DIP joints are chronic" - Hand Surgery consulted and Dr. Cardenas notified by ED provider - Post-op day #1 from I&D of right hand - Plan for surgery tomorrow - S/P Tdap vaccine - Continue piperacillin-tazobactam - Wound cultures to be obtained during surgery - NPO past midnight # KDIGO Stage I Acute Kidney Injury on Chronic Kidney Disease Stage IV - Creatinine = 3.17 -> 3.19 -> 3.23 (baseline creatinine ~2.4-2.5) - Consulted Nephrology and spoke with Dr. Rob - recommendations appreciated - Urinalysis = 4+ glucosuria - Monitor creatinine and urine output - If worsening, obtain renal ultrasound - Renally dose medications # Coronary Artery Disease s/p CABG # Hypertension # Hyperlipidemia - Stable - Continue home aspirin, atorvastatin, carvedilol, fenofibrate # Chronic Compensated Systolic Congestive Heart Failure with Reduced Ejection Fraction s/p AICD # Chronic Atrial Fibrillation s/p PPM - TTE = "SEVERE GLOBAL HYPOKINESIS. EJECTION FRACTION 26%. MILD MITRAL AND TRICUSPID REGURGITATION. 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
[2022-06-28] MEDS: ROSUVASTATIN 10 MG TAB PO SCH (21:52)
[2022-06-29] MEDS: CODEINE 30MG/APAP 300MG TAB PO PRN ×2 (00:50→14:41)
[2022-06-29] MEDS: PIPER TAZO 3.375 GM in NA CHLORIDE 0.9% 100 ML IV SCH ×2 (00:51→08:32)
[2022-06-29 04:06] LABS: Absolute Lymphocytes (CBC) 1.3 K/uL (0.7-4.9); Hematocrit 34.5 % (39.6-49.0); Lymphocytes % 11.9 % (15.3-44.8); MCV 87.8 fL (80-100); MPV 8.3 fL (7.6-11.3); RBC Red Blood Cell Count 3.93 M/uL (4.33-5.43)
[2022-06-29] MEDS: INSULIN -REGULAR HUMAN 50 UNIT/0.5 ML ML SQ SCH ×2 (07:30→11:30)
[2022-06-29] MEDS: INSULIN LISPRO 100 UNIT/1 ML SQ SCH ×2 (07:30→11:32)
[2022-06-29] MEDS ORDERED: NA CHLORIDE 0.9% 1,000 ML ONE (08:01)
[2022-06-29] MEDS ORDERED: EPINEPHRINE/PF 1 MG/ML AMP ONE (08:32)
[2022-06-29] MEDS ORDERED: FENTANYL CITR 100 MCG/2 ML ONE (08:32)
[2022-06-29] MEDS ORDERED: LIDOCAINE 1% MPF 5 ML VIAL ONE ×2 (08:32→09:31)
[2022-06-29] MEDS ORDERED: dexAMETHasone 10 MG/ML VIAL ONE (08:32)
[2022-06-29] MEDS ORDERED: MIDAZOLAM HCL 2 MG/2 ML INJ ONE (08:32)
[2022-06-29] MEDS: HEPARIN 5000 UNIT/ML 1 ML VIAL SQ SCH (09:00)
[2022-06-29] MEDS: HOME MED 1 EA UNK (Insulin Degludec [Tresiba Flextouch U-200] 200 UNIT/ML Insuln.Pen) SQ SCH (09:00)
[2022-06-29] MEDS: SILVER SULFADIAZINE 1% 50 GM TOP SCH (09:00)
[2022-06-29] MEDS ORDERED: propofoL 200 MG/20 ML VIAL IV ONE (09:31)
[2022-06-29] MEDS ORDERED: KETOROLAC 30 MG/ML INJ ONE (09:44)
[2022-06-29] MEDS ORDERED: ONDANSETRON 4 MG/2 ML VIAL ONE (09:44)
[2022-06-29] MEDS: FENTANYL CITR 100 MCG/2 ML ONE ×2 (10:19→10:26)
[2022-06-29 10:30] VITALS: O2SAT 100
[2022-06-29] MEDS ORDERED: INFLUENZA VACCINE (for 6+ mo) 0.5 ML DOSE IMVAC ONE (11:27)
[2022-06-29] MEDS: ASPIRIN EC 81 MG TAB PO SCH (11:33)
[2022-06-29] MEDS: FENOFIBRATE 160 MG TAB PO SCH (11:33)
[2022-06-29] MEDS: FUROSEMIDE 20 MG TABLET PO SCH (11:33)
[2022-06-29] MEDS: DIGOXIN 0.125 MG TABLET PO SCH (11:33)
[2022-06-29] MEDS: MAGNESIUM OXIDE 400 MG TAB PO SCH (11:34)
[2022-06-29] MEDS: SACUBITRIL/VALSARTAN 24/26 MG TAB PO SCH (11:35)
[2022-06-29] MEDS: SODIUM ZIRCONIUM CYCLOSILICATE 10 GM/PKT PO SCH (11:35)
[2022-06-29] MEDS: AMIODARONE HCL 200 MG TAB PO SCH (11:36)
--- NOTE | 2022-06-29 11:56 | P.PN ---
Nephrology note: (S) Pt s/p Rt hand surgery, denies any sig pain, renal function tests a bit worse, discussed results with pt and Dr. Lima (O) Vitals reviewed in the EMR General: Alert, In no apparent distress, Oriented x3 HEENT: Atraumatic, Normocephalic, Mucous membr. moist/pink, EOMI Neck: Supple, Other (JVD difficult to appreciate) Respiratory: Normal air movement, no rales Cardiovascular: No edema, Regular rate/rhythm, Normal S1 S2 Gastrointestinal: Soft and benign, Non-distended, No tenderness Musculoskeletal: No clubbing, No swelling of the LE, No contractures, Rt hand dressed Integumentary: No rashes Neurological: Normal speech, Normal affect Laboratory Data (last 24 hrs) Reviewed Conclusions/Impression: 1. Abnormal results of kidney function studies 2. EDIE on underlying CKD IV 3. Hx of hyperkalemia 4. Chronic systolic CHF. Cardiomyopathy unspecified 5. Relative hypotension 2nd to meds/other -Baseline Cr levels in the 2.4-2.7 mg/dl range. EDIE last mo 2nd to suspected CRS, renal function marginally better/stable since although has not improved to prior levels seen and this AM worse in the setting of some relatively lower BP at times. Renal imaging last month did not show any obstructive uropathy. -Cont to monitor renal function closely, will lower PO lasix dose. -Low dose Entresto was resumed on discharge last mo, SBP low at times, will lower Entresto dose to 1/[address] holding parameter to hold if SBP < 100 -Hold SGLT2i agents at this time until eGFR improves -Pt was taking Lokelma as an OP, and while he would benefit from continued scheduled cation exchanger therapy in light of his CKD and to prevent recurrent hyperkalemia, Veltassa would be preferred to avoid sodium load associated with Lokelma -Target BP < 130/80. -Target better diabetic control. -Renal u/s done recently did not reveal the > 5 mm stone seen on CT in the summer, no current flank or back pain reported. Did order UA but not done. -On discharge any Abx such as Levaquin or other need to be renally dosed. Bhupinder Rob MD, [facility]
[2022-06-29] MEDS ORDERED: TETANUS & DIPHTHERIA TOX,ADULT 0.5 ML VIAL IMVAC ONE (12:00)
[2022-06-29 12:43] VITALS: TEMP 97.6
--- NOTE | 2022-06-29 12:43 | OP ---
Surgeon: Dudley Cardenas MD Preoperative Diagnosis: Open wounds of the right hand. Postoperative Diagnosis: Open wounds of the right hand. Procedure Performed: Debridement of skin and subcutaneous tissue, simple closure, 3 cm wound, flap closure. Anesthesia: General. Procedure In Detail: After satisfactory induction of general anesthesia, the right arm was prepped with Betadine scrub and Betadine paint. Dry sterile drapes applied in the usual manner. The arm was elevated, exsanguinated with Esmarch. Tourniquet was inflated to 250 mmHg. Hand was placed on Roto Lock table. Scalpel, tenotomy scissors, and forceps were used to debride skin and subcutaneous tissue. Curettes were then used. The wound was scrubbed with Betadine scrub brush and jet lavage irrigated with 3 L of Betadine solution. The wound was closed with vertical mattress of 4-0 Prolene. The proximal wound was closed with flap advancement using a 4-0 Prolene half buried mattress simple sutures. Dressed with Xeroform and Kerlix. Tourniquet was released. The patient tolerated the procedure well and returned to recovery. TOMASA/APARNA Voice ID: [id number] Report ID: [id number] NINA
[2022-06-29 14:43] VITALS: BP 109/57
--- NOTE | 2022-06-29 15:08 | P.DS ---
Admission Date: 06/26/22 Discharge Date: 06/29/22 Disposition: ROUTINE DISCHARGE Discharge Condition: GOOD Reason for Admission: Right hand wound\swelling\redness Consultations: 1. Hand Surgery 2. Nephrology Procedures: - 06/27/2022: Incision and Drainage of the Right Hand - 06/29/2022: Debridement of Skin and Subcutaneous Tissue, Simple Closure, 3 cm wound, flap closure. Hospital Course: DIAGNOSES: # Right Hand Puncture Wound with Cellulitis # KDIGO Stage I Acute Kidney Injury on Chronic Kidney Disease Stage IV # Coronary Artery Disease s/p CABG # Hypertension # Hyperlipidemia # Chronic Compensated Systolic Congestive Heart Failure with Reduced Ejection Fraction s/p AICD # Chronic Atrial Fibrillation s/p PPM # Type II Diabetes Mellitus # Obesity - BMI 32.1 kg/m2 HOSPITAL COURSE: Mr. Han Hyde is a pleasant 72 year old male with a past medical history significant for chronic kidney disease stage IV, coronary artery disease s/p CABG, chronic compensated systolic congestive heart failure s/p AICD, chronic atrial fibrillation s/p PPM, and type II diabetes mellitus who was admitted to the [facility] on 06/26/2022 for a puncture to the right hand. He was admitted to the Medicine service. Further evaluation of his hand revealed cellulitis, for which he was started on IV antibiotics and given a Tdap vaccination. Hand Surgery was consulted and he was evaluated by Dr. Cardenas. On 06/27/2022, he underwent an incision and drainage of his right hand. He was observed post-operatively and did well. He was taken back to the operating room today and underwent debridement of the right hand skin and subcutaneous tissue, simple closure, 3 cm wound, flap closure. He tolerated the procedure, without any apparent complications. Dr. Cardenas has cleared him for discharge home with 14 days of amoxicillin-clavulanate. Additionally, he was found to have an acute kidney injury, for which Nephrology was consulted. He was evaluated by Dr. Rob. He recommended temporarily holding his furosemide and carvedilol due to borderline blood pressures. He advised that he continue to take his sacubutril-valsartan as long as his pre-medication systolic blood pressure is >100 mmHg. He has cleared him for discharge with an outpatient follow-up. On 06/29/2022, he was seen on morning rounds and deemed medically stable for discharge. He was discharged with instructions to schedule follow-up appointments with his PCP (Dr. Guzman) in 3-5 days, with Nephrology (Dr. Rob) in 2-3 days, with Dr. Cardenas (on 07/04/2022), and with Cardiology (Dr. Thibodeaux) in 5-7 days. He was provided prescriptions for amoxicillin-clavulanate and Tylenol #3. He was the opportunity to ask questions and reported no further questions. Furthermore, all questions were answered to the best of my ability. Prior to the controlled substance prescription, a PDMP review was conducted, which revealed 1 prescription, from 1 provider, to 1 pharmacy over the last 2 years. A copy of this discharge summary will be sent to the above providers to facilitate continuity of care. Today, I personally spent 20 minutes on his case, of which greater than 50% of the time was spent in patient education, counseling, and coordination of care as described above. - Physical Exam General: Alert, In no apparent distress, Oriented x3 HEENT: Atraumatic, PERRLA, Mucous membr. moist/pink, EOMI, Sclerae nonicteric Neck: Supple, JVD not distended Respiratory: Clear to auscultation bilaterally, Normal air movement Cardiovascular: No edema, Regular rate/rhythm, Normal S1 S2, No gallops, No rubs, No murmurs Capillary refill: <2 Seconds Gastrointestinal: Normal bowel sounds, Soft and benign, Non-distended, No tenderness, No rebound, No guarding Musculoskeletal: No clubbing Integumentary: Tenderness/swelling (ulnar base of right hand), Erythema (ulnar base of right hand), Warmth (ulnar base of right hand) Neurological: Normal speech, Cranial nerves 3-12 intact, Normal affect Vital Signs/Physical Exam: Temp Pulse Resp BP Pulse Ox 97.6 F 67 14 109/57 L 99 06/29/22 12:00 06/29/22 14:42 06/29/22 12:00 06/29/22 14:42 06/29/22 12:00 Laboratory Data at Discharge: WBC 11.30 K/uL (4.3-10.9) H 06/29/22 03:10 Hgb 11.3 g/dL (13.6-17.9) L 06/29/22 03:10 Hct 34.5 % (39.6-49.0) L 06/29/22 03:10 Plt Count 240 K/uL (152-406) 06/29/22 03:10 Sodium 136 mmol/L (136-145) 06/29/22 03:10 Potassium 5.0 mmol/L (3.5-5.1) 06/29/22 03:10 BUN 64 mg/dL (7-18) H 06/29/22 03:10 Creatinine 3.51 mg/dL (0.55-1.3) H 06/29/22 03:10 Glucose 264 mg/dL (74-106) H 06/29/22 03:10 Phosphorus 3.4 mg/dL (2.5-4.9) 06/27/22 05:02 Magnesium 2.2 mg/dL (1.8-2.4) 06/27/22 05:02 Home Medications: RX: Rosuvastatin [Crestor*] 40 mg PO BEDTIME 02/10/17 RX: Magnesium Oxide [Mag 0X*] 400 mg PO BID 03/25/18 RX: Amiodarone HCl [Pacerone] 200 mg PO DAILY 12/09/21 RX: Aspirin [Ecotrin 81 MG] 81 mg PO DAILY 12/09/21 RX: Digoxin [Lanoxin*] 0.125 mg PO DAILY 12/09/21 RX: Dulaglutide [Trulicity] 3 mg PO EVERY 7TH DAY 12/09/21 RX: Fenofibrate [Tricor*] 145 mg PO DAILY 12/09/21 RX: Insulin Aspart [Novolog Flexpen] 17 unit SQ AC 12/09/21 RX: Insulin Degludec [Tresiba Flextouch U-200] 60 unit SQ DAILY 12/09/21 RX: Sodium Zirconium Cyclosilicate [Lokelma] 5 gm PO DAILY 12/09/21 RX: Sacubitril/Valsartan [Entresto 24 mg-26 mg Tablet] 1 tab PO BID #60 tab 06/02/22 Amox/Clavulanate [Augmentin 500-125 mg Tab] 500 mg PO BID 14 Days #28 tab 06/29/22 RX: Codeine/APAP [Tylenol #3*] 1 tab PO Q6HP PRN 3 Days #12 tab 06/29/22 New Medications: RX: Codeine/APAP [Tylenol #3*] 1 tab PO Q6HP PRN 3 Days #12 tab PRN Reason: Pain Scale 5-7 (Moderate) Amox/Clavulanate [Augmentin 500-125 mg Tab] 500 mg PO BID 14 Days #28 tab Physician Discharge Instructions: 1. Please schedule a follow-up appointment with your PCP (Dr. Guzman) in 3-5 days 2. Please attend your Hand Surgery appointment with Dr. Cardenas on 07/04/2022 at 09:00 AM 3. Please schedule a follow-up appointment with Cardiology (Dr. Thibodeaux) in 5-7 days 4. Please schedule a follow-up appointment with Nephrology (Dr. Rob) in 2-3 days - Please hold your furosemide and carvedilol until you follow-up with Dr. Rob. Please do not take your Entresto if your top blood pressure number is less than 100. Diet: Regular Activity: Ad zechariah Followup: Bhupinder Rob [ACTIVE - CAN ADMIT] - Roman Thibodeaux MD [ACTIVE - CAN ADMIT] - Dudley Cardenas MD [ACTIVE - CAN ADMIT] - (return to office next week.) Paula Guzman DO [Primary Care Provider] - Time spent managing pt's care (in minutes): 20
[2022-06-30] MEDS ORDERED: FUROSEMIDE 20 MG TABLET PO SCH (09:00)
[2022-07-03] MEDS ORDERED: DULAGLUTIDE 3 MG/0.5 ML PO SCH (09:00)
== END 2022-06-29 15:49 | disposition home or self-care (01) | DRG 580 ==
LOC: ER 11:33 → ERHOLD 15:48 → 4TH 18:40
PROVIDERS: ADMIT Internal Medicine; ATTEND Internal Medicine
PROC: 0PBM0ZZ Excision of Right Carpal, Open Approach (ICD-10-PCS; 2022-06-28)
PROC: 0JBJ0ZZ Excision of Right Hand Subcutaneous Tissue and Fascia, Open Approach (ICD-10-PCS; principal; 2022-06-29 09:00)
DX: L03.113 Cellulitis of right upper limb (principal); I13.0 Hypertensive heart and chronic kidney disease with heart failure and stage 1 through stage 4 chronic kidney disease, or unspecified chronic kidney disease; N18.4 Chronic kidney disease, stage 4 (severe); N17.9 Acute kidney failure, unspecified; I48.20 Chronic atrial fibrillation, unspecified; I42.9 Cardiomyopathy, unspecified; I50.22 Chronic systolic (congestive) heart failure; E11.22 Type 2 diabetes mellitus with diabetic chronic kidney disease; E78.5 Hyperlipidemia, unspecified; E66.09 Other obesity due to excess calories; I25.10 Atherosclerotic heart disease of native coronary artery without angina pectoris; I95.2 Hypotension due to drugs; T50.905A Adverse effect of unspecified drugs, medicaments and biological substances, initial encounter; R94.4 Abnormal results of kidney function studies; Z23 Encounter for immunization; Z79.4 Long term (current) use of insulin; Z88.8 Allergy status to other drugs, medicaments and biological substances; Z88.5 Allergy status to narcotic agent; Z95.1 Presence of aortocoronary bypass graft; Z95.5 Presence of coronary angioplasty implant and graft; Z79.02 Long term (current) use of antithrombotics/antiplatelets; Z68.32 Body mass index [BMI] 32.0-32.9, adult; Z79.01 Long term (current) use of anticoagulants; Z79.899 Other long term (current) drug therapy; Z95.810 Presence of automatic (implantable) cardiac defibrillator; Z96.611 Presence of right artificial shoulder joint; Z20.822 Contact with and (suspected) exposure to COVID-19
CPT/HCPCS: 36415; 80048; 81003; 82947; 83735; 83880; 84100; 85025; 87070; 87075; 87205; 87811; 88304; 90471; 90714; 93005; 96365; 99285; A4216; J0171; J0690; J1100; J1170; J1644; J1815; J2001; J2250; J2270; J2370; J2405; J2543; J2704; J2795; J3010; J7030; Q2035

== ENCOUNTER 2022-07-13 08:34 | Emergency (ER) | payer OTHER ==
--- OUTSIDE RECORDS SUMMARY | 2022-07-13 08:53 | XMS REPORT | Continuity of Care Document ---
:1950 Author Organization [facility] t Address [address] [place] [place] [address] Care Team Providers Name Role Phone Kennedi Ford MD Primary Care Physician Paula Guzman Attending Clinician Unavailable SALVADOR MANJARREZ Attending Clinician Unavailable VETO UGARTE Attending Clinician Unavailable Georgina Dominguez MD Attending Clinician Alba Wylie MD Attending Clinician [phone] Jasiel Khoury MA Attending Clinician Unavailable Val Deal RN Attending Clinician Unavailable Angely Naidu MD Attending Clinician Sy Rae PUBLICATIONS WRITER, Irma Attending Clinician Melba Jo MA Attending Clinician Unavailable Dusty Vásquez MD Attending Clinician [phone] Jamison LIN, Silva Attending Clinician Unavailable Sera Santos MD Attending Clinician Arvind Bejarano MA Attending Clinician Unavailable ABBEY HICKS Attending Clinician Unavailable Brandt Corrales MD Attending Clinician MD KRYSTAL HERNANDEZ Attending Clinician Unavailable SALVADOR MANJARREZ Attending Clinician Unavailable SALVADOR MANJARREZ M.D. Attending Clinician Unavailable WARREN MEEKS Attending Clinician Unavailable JW LUCAS Attending Clinician Unavailable SHEEBA GUILLAUME Attending Clinician Unavailable KEO AGUILAR Attending Clinician Unavailable MARY BOYLE Attending Clinician Unavailable WILY LINARES Attending Clinician Unavailable SAUL TARIQ Attending Clinician Unavailable ALBA WYLIE Admitting Clinician Unavailable KRYSTAL HERNANDEZ Admitting Clinician Unavailable Brandt Corrales MD Admitting Clinician MD KRYSTAL HERNANDEZ Admitting Clinician Unavailable JW LUCAS Admitting Clinician Unavailable GEORGINA DOMINGUEZ Admitting Clinician Unavailable VIRGINIA NEAL Admitting Clinician Unavailable Payers Payer Name Policy Type Policy Number Effective Date Expiration Date S ource AETNA MEDICARE [facility] 2016 PPO 00:00:00 AETNA MEDICARE [facility] Common Spi rit 00:00:00 [facility] MEDICARE MB [id number] 2015 [facility] NOVITAS 00:00:00 [facility] Problems Condition Condition Condition Status Onset Resolution Last Treating Co mments Source Name Details Category Date Date Treatment Clinician Date PAD PAD Disease Active Overview: Method i (periphera (periphera 04-[address] l artery l artery 00:00: g of this Hos chloe disease) disease) 00 note l might be different from the original. Added automatic ally from request for surgery [id number] Claudicati Claudicati Disease Active Overview : Methodi on on 04-[address] 00:00: g of this Hospita 00 note l might be different from the original. Added automatic ally from request for surgery [id number] Aortoiliac Aortoiliac Disease Active M ethodi obstructio obstructio 03-15 st n n 00:00: Hospita 00 l Obesity Obesity Disease Active Methodi (BMI (BMI 03-18 30-39.9) 30-39.9) 00:00: Hospit a 00 l Acute Acute Disease Active Methodi respirator respirator 03-17 y failure y failure 00:00: Hosp chau with with 00 l hypoxia hypoxia Pulmonary Pulmonary Disease Active Met hodi insufficie insufficie 03-17 ncy ncy 00:00: Hospita 00 l Chronic [...] Hospi ta involving involving 00 note l [place] might be coronary coronary different artery artery from the original. 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 S/p CABG Stage 3 Stage 3 Disease Active 2016-09 [facility] chronic chronic 10-08 [facility] kidney kidney 00:00: Medical disease disease 00 Center Chronic Chronic Disease Active 2016-09 Overview: [facility] combined combined Formattin Flynn es systolic systolic 00:00: g of this Med ical and and 00 note Center diastolic diastolic might be CHF CHF different (congestiv (congestiv from the e heart e heart original. failure) failure) S/p AICD Smoker Smoker Disease Active 2016-09 [facility] Medical 00 Center Type 2 Type 2 Disease Active 2016-09 [facility] diabetes diabetes [facility] mellitus mellitus 00:00: Medica l 00 [...] Annual exams [facility] Letter sent Dr. [...] of left t of left shoulder shoulder Screening Screening Problem Active Com mon for for Spirit osteoporos osteoporos - CHI is is [facility] Chronic Stage 3a Problem Active Common kidney chronic Spirit disease kidney - CHI stage 3A disease [facility] Nicotine Nicotine Problem Active Commo n dependence dependence Sp mari - CHI [facility] Spermatoce Spermatoce Problem Active C ommon le le of Spirit epididymis - CHI , multiple [facility] Cardiac Presence Problem Active Common pacemaker of cardiac Spi rit in situ pacemaker - [facility] Requires DTaP/IPV/H Problem Active Com mon vaccinatio BV Spirit n vaccinatio - CHI n [facility] Chronic +5th digit Problem Active Comm on atrial eff Spirit fibrillati 06/17/19*Ch - CHI on ronic atrial [facility] fibrillati Medica l on Center Varicocele Varicocele Problem Active C ommon Spirit - CHI [facility] Hydrocele Hydrocele Problem Active Com mon Spirit - CHI [facility] [id number] Spider Problem Active Common bite Spirit wound, - CHI accidental [facility] or [facility] unintentio Medica l nal, Center sequela Systolic Congestive Problem Active Com mon heart heart Spirit failure failure, - CHI systolic, St left NYHA [facility] class 4 Medical Center [id number] Controlled Problem Active Co mmon type 2 Spirit diabetes - CHI mellitus [facility] without [facility] complicati Medica l on, Center without long-term current use of insulin Chronic Chronic Problem Active Common systolic systolic Spirit heart congestive - CHI failure heart [facility] Benign BPH Problem Active Common prostatic without Spirit hypertroph urinary - CHI y without obstructio St outflow n [facility] obstructio Medica l n Center Obesity Obesity Problem Active Common Spirit - CHI [facility] Colon Colon Problem Active Common cancer cancer Spirit screening screening - CH I [facility] Type 2 Diabetes Problem Active Common diabetes mellitus Spirit mellitus type II, - CHI well controlled [facility] 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 Mixed Mixed Problem Active Common hyperlipid hyperlipid Sp mari emia emia - [facility] [id number] Hyperkalem Problem Active Com mon ia Spirit - CHI [facility] [id number] Uncontroll Problem Active Co mmon ed type 2 Spirit diabetes - CHI mellitus St with [facility] hyperglyce Medica l [facility] Center [id number] End stage Problem Active Comm on heart Spirit failure - CHI [facility] [id number] Other Problem Active Common specific Spirit arthropath - CHI ies, not St elsewhere [facility] classified Medica l , left Center shoulder Hypertensi HTN Problem Active Commo n on (hypertens Spirit ion) - [facility] [id number] Pre-op Problem [place] [id number] [facility] Coronary CAD Problem Active Common artery (coronary Spirit disease artery - CHI disease) [facility] Screening Prostate Problem Active Comm on for cancer Spirit malignant screening - I neoplasm [facility] prostate [facility] [id number] Hypertensi Problem Active Comm on ve heart Spirit disease - CHI with heart [facility] Diabetic Type 2 Problem Active Common renal diabetes Spirit disease mellitus - CHI with diabetic [facility] chronic [facility] kidney Center disease [id number] Unspecifie Problem Active C ommon [id number] d rotator Spirit cuff tear - CHI or rupture St of left [facility] shoulder, Medical not Center specified as traumatic Allergies, Adverse Reactions, Alerts Allergy Allergy Status [...] to 01-16 Health substanc 00:00: e 00 Meperidi Propensi Active 2016-[address] ne ty to 0-26 [facility] adverse 00:00: Medical reaction 00 Center s Lisinopr Propensi Active 2016-[address] il ty to 0-26 [facility] adverse 00:00: Medical reaction 00 Center s Rivaroxa Propensi Active 2016-[address] ban ty to 0-26 [facility] adverse 00:00: Medical reaction 00 Center s Lisinopr Propensi Active Hives 2016-09 Method i [...] 00:00: Medical 00 Center Meperidi Propensi Active Hives Method i ne ty to 9 st adverse 00:00: Hospita reaction 00 l s to drug Demerol Allergy Active [facility] drug [facility] (finding ans ) lisinopr Allergy Active [facility] (finding ans ) Xarelto Allergy Active [facility] to drug [facility]ici (finding ans ) Family History Family Member Diagnosis Comments Start Date Stop Date Source Natural father No Known Problems Met [facility] Natural mother No Known Problems Met [facility] Natural sister Diabetes [facility] Social History Social Habit Start Date Stop Date Quantity Comments Source History of Tobacco [facility] - Use [facility] Exposure to Not sure [facility] SARS-CoV-2 (event) Alcohol intake 2022-07-12 2022-07-12 Current [facility] 00:00:00 00:00:00 non-drinker of Hospital alcohol (finding) Cigarettes smoked 2022-06-14 2022-06-[address] current (pack per 00:00:00 00:00:00 Hospita l day) - Reported Cigarette 2022-06-14 2022-06-14 [facility] pack-years 00:00:00 00:00:00 Hospital Tobacco Comment 2022-06-14 2022-06-14 50 YEARS [facility] 00:00:00 00:00:00 Hospital Tobacco use and 2017-07-13 2017-07-[address] [facility] exposure 00:00:00 00:00:00 Medical Center Sex Assigned At [birth year] [facility] 00:00:00 00:00:00 Hospital Smoking Status Start Date Stop Date Source Tobacco smoking [facility] Ex-smoker 2022-06-14 00:00:00 2022-06-14 [facility]:00:[facility] Medications Ordered Filled Start Stop Current Ordering Indication Dosage Frequency Signature Comments Components Source Medication Medication Date Date Medication? Clinician (SIG) Name Name nitroglycer 2021-09- No .4mg Place 0.4 Methodi in 0-26 10-[address] (NITROSTAT) 15:46: 00:00 the tongue Hospita 0.4 MG SL 01 :00 every 5 l tablet (five) minutes as needed for chest pain. aspirin 2021-09 Yes 81mg QD Take 81 mg Meth kimberly (ECOTRIN) 0-[address] 81 MG 14:38: daily. Hospita enteric 49 l coated tablet magnesium 2021-09 Yes 400mg Q.5D Take 400 Met hodi oxide 0-[address] (MAG-OX) 14:38: mouth 2 Hospit a 400 mg 49 (two) l (241.3 mg times a magnesium) day. tablet empaglifloz 2021-09 Yes 10mg QD Take 10 mg Methodi in 0-[address] (Jardiance) 14:38: daily. Hosp chau 10 mg 49 l tablet tablet sodium 2021-09- Yes [id number] 10g QD Take 10 g Methodi zirconium 0-26 10-[address] cyclosilica 00:00: 04:59 daily. Hos chloe te 00 :00 l (Lokelma) 10 gram powder in packet packet furosemide 2021-09- Yes 40mg QD Take 1 Meth kimberly (LASIX) 40 0-12 07-27 tablet (40 st mg tablet 00:00: 04:59 mg total) Ho spita 00 :00 by mouth l daily. nitroglycer 2021-09- Yes .4mg Place 1 Me thodi in 0-26 -[address] (NITROSTAT) 00:00: 04:59 (0.4 mg Ho spita 0.4 MG SL 00 :00 total) l tablet under the tongue every 5 (five) minutes as needed for chest pain. Eliquis 5 2021-09 Yes [id number] TAKE 1 M ethodi mg tablet 0-[address] 00:00: MOUTH Hospita 00 TWICE A l DAY Eliquis 5 2021-09 Yes [id number] TAKE 1 M ethodi mg tablet 0-[address] 00:00: MOUTH Hospita 00 TWICE A l DAY nitroglycer 2021-[address] 0.4 M ethodi in 9-[address] (NITROSTAT) 09:03: the tongue Hospita 0.4 MG SL 28 every 5 l tablet (five) minutes as needed for chest pain. aspirin 2021-0 Yes 81mg QD Take 81 mg Meth kimberly (ECOTRIN) 9-[address] 81 MG 09:03: daily. Hospita enteric 28 l coated tablet magnesium 2021-0 Yes 400mg Q.5D Take 400 Met hodi oxide 9-[address] (MAG-OX) 09:03: mouth 2 Hospit a 400 mg 28 (two) l (241.3 mg times a magnesium) day. tablet empaglifloz 2021-0 Yes 10mg QD Take 10 mg Methodi in 9-[address] (Jardiance) 09:03: daily. Hosp chau 10 mg 28 l tablet tablet nitroglycer 2021-[address] 0.4 M ethodi in 8-[address] (NITROSTAT) 18:19: the tongue Hospita 0.4 MG SL 34 every 5 l tablet (five) minutes as needed for chest pain. aspirin 2021-0 Yes 81mg QD Take 81 mg Meth [...] 34 l tablet tablet Lokelma 5 Yes [id number] USE 1 Methodi gram powder 04-[address] in packet 00:00: DIRECTED Hosp cahu packet 00 EVERY DAY l Lokelma 5 Yes [id number] USE 1 Methodi gram powder 04-[address] in packet 00:00: DIRECTED Hosp chau packet 00 EVERY DAY l Lokelma 5 2021- No [id number] USE 1 Methodi gram powder 04-[address] in packet 00:00: 00:00 DIRECTED Hos chloe packet 00 :00 EVERY DAY l sacubitriL- 2022- No 1{tbl} [...] 40mg Take 1 Meth kimberly (LASIX) 40 03-22- tablet (40 st mg tablet 00:00: 04:59 [...] a tablet day. furosemide 2021- No 40mg Take 1 Meth kimberly (LASIX) 40 03-22- tablet (40 st mg tablet 00:00: 00:00 [...] 00 EVERY DAY l Entresto 2021- No [id number] TAKE 1 Methodi 97-103 mg 6-12 08-[address] tablet per 00:00: 00:00 MOUTH Hospi ta tablet 00 :00 TWICE A l DAY Entresto 2021- No [id number] TAKE 1 Methodi 97-103 mg 02-[address] tablet per 00:00: 00:00 MOUTH Hospi ta tablet 00 :00 TWICE A l DAY Entresto 2021- No [id number] TAKE 1 Methodi 97-103 mg 02-[address] tablet per 00:00: 00:00 MOUTH Hospi ta tablet 00 :00 TWICE A l DAY amIODarone 2021-0 Yes [id number] TAKE 1 Methodi (PACERONE) 5-[address] 200 MG 00:00: MOUTH Hospita tablet 00 EVERY DAY l amIODarone 0 Yes [id number] TAKE 1 Methodi (PACERONE) 5-[address] 200 MG 00:00: MOUTH Hospita tablet 00 EVERY DAY l amIODarone 0 Yes [id number] TAKE 1 Methodi (PACERONE) 5-[address] 200 MG 00:00: MOUTH Hospita tablet 00 EVERY DAY l rosuvastati Yes TAKE 1 Meth kimberly n (CRESTOR) 4-[address] 40 MG 00:00: MOUTH Hospita tablet 00 EVERY DAY l AT NIGHT rosuvastati 0 Yes TAKE 1 Meth kimberly n (CRESTOR) 4-[address] 40 MG 00:00: MOUTH Hospita tablet 00 EVERY DAY l AT NIGHT rosuvastati 0 Yes TAKE 1 Meth kimberly n (CRESTOR) [...] 2020-09- No TAKE 1 Meth kimberly (COREG) 11-[address] 12.5 MG 00:00: 00:00 MOUTH Hospita tablet 00 :00 TWICE A l DAY WITH FOOD Eliquis 5 2020-09 Yes [id number] TAKE 1 M ethodi mg tablet 2- TABLET BY st 00:00: MOUTH Hospita 00 TWICE A l DAY Eliquis 5 2020-09- No [id number] TAKE 1 Methodi mg tablet 10-26- TABLET BY st 00:00: 00:00 MOUTH Hospita 00 :00 TWICE A l DAY Eliquis 5 2020-09- No [id number] TAKE 1 Methodi mg tablet 10-26- TABLET BY st 00:00: 00:00 MOUTH Hospita 00 :00 TWICE A l DAY digOXIN 2020-09- No [id number] 125ug QD Take 1 M ethodi (LANOXIN) 0-04 -[address] 125 mcg 00:00: 04:59 (125 mcg Hospi ta (0.125 mg) 00 :00 total) by l tablet mouth daily. digOXIN 2020-09- No [id number] 125ug QD Take 1 M ethodi (LANOXIN) 0-04 10-[address] 125 mcg 00:00: 04:59 (125 mcg Hospi ta (0.125 mg) 00 :00 total) by l tablet mouth daily. digOXIN 2020-09- No [id number] 125ug QD Take 1 M ethodi (LANOXIN) [...] Q2D Take 1 Meth kimberly (LASIX) 40 8-14 10-05 tablet (40 st mg tablet 00:00: 00:00 mg total) Ho spita 00 :00 by mouth l every other day. furosemide 2021- No 40mg Q2D Take 1 Meth kimberly (LASIX) 40 8-14 10-05 tablet (40 st mg tablet 00:00: 00:00 mg total) Ho spita 00 :00 by mouth l every other day. furosemide 2021- No 40mg Q2D Take 1 Meth kimberly (LASIX) 40 8-14 10-05 tablet (40 st mg tablet 00:00: 00:00 mg total) Ho spita 00 :00 by mouth l every other day. sodium 2021- No [id number] 5g QD Take 5 g Methodi zirconium 04-[address] cyclosilica 00:00: 00:00 daily. Hos chloe te 00 :00 l (Lokelma) 5 gram powder in packet packet sodium 2021- No [id number] 5g QD Take 5 g Methodi zirconium 04-[address] cyclosilica 00:00: 00:00 daily. Hos chloe te 00 :00 l (Lokelma) 5 gram powder in packet packet sodium 2021- No [id number] 5g QD Take 5 g Methodi zirconium 04-[address] cyclosilica 00:00: 00:00 daily. Hos chloe te 00 :00 l (Lokelma) 5 gram powder in packet packet amIODarone 2021- No [id number] 200mg QD Take 1 Methodi (PACERONE) 04-[address] 200 MG 00:00: 00:00 (200 mg Hospita tablet 00 :00 total) by l mouth daily. amIODarone 2021- No [id number] 200mg QD Take 1 Methodi (PACERONE) 04-[address] 200 MG 00:00: 00:00 (200 mg Hospita tablet 00 :00 total) by l mouth daily. amIODarone 2021- No [id number] 200mg QD Take 1 Methodi (PACERONE) 04-[address] 200 MG 00:00: 00:00 (200 mg Hospita tablet 00 :00 total) by l mouth daily. albuterol 2021- No [id number] 2.5mg Q24H Take 0.5 Methodi sulfate 04-13 9100 mL (2.[address] (PROVENTIL) 00:00: 00:00 total) by Hospita 2.5 mg/0.5 00 :00 nebulizati l mL solution on daily for as needed nebulizatio for n wheezing (SOB) for up to 15 doses. albuterol 2021- No [id number] 2.5mg Q24H Take 0.5 Methodi sulfate 04-13 9100 mL (2.[address] (PROVENTIL) 00:00: 00:00 total) by Hospita 2.5 mg/0.5 00 :00 nebulizati l mL solution on daily for as needed nebulizatio for n wheezing (SOB) for up to 15 doses. albuterol 2021- No [id number] 2.5mg Q24H Take 0.5 Methodi sulfate 04-13 9100 mL (2.[address] (PROVENTIL) 00:00: 00:00 total) by Hospita 2.5 mg/0.5 00 :00 nebulizati l mL solution on daily for as needed nebulizatio for n wheezing (SOB) for up to 15 doses. digOXIN 2020- No [id number] TAKE 1 Me thodi (LANOXIN) 04-[address] 125 mcg 00:00: 00:00 [...] st gauge x 00:00: day Hospita " 00 l needle insulin Yes 30U QD Inject [...] 00:00: day Hospita 32" 00 l needle insulin Yes 30U QD Inject [...] st gauge x 00:00: day Hospita " 00 l needle fenofibrate 2021- No 145mg QD Take 1 Me thodi (TRICOR) 02-11-[address] 145 MG 00:00: 00:00 (145 mg Hospita tablet 00 :00 total) by l mouth daily. fenofibrate 2021- No 145mg QD Take 1 Me thodi (TRICOR) -28 -[address] 145 MG 00:00: 00:00 (145 mg Hospita tablet 00 :00 total) by l mouth daily. fenofibrate 2021- No 145mg QD Take 1 Me thodi (TRICOR) 02-11-[address] 145 MG 00:00: 00:00 (145 [...] UT -metFORMIN 5-19 tablet by Heal HCl 17:39: mouth 1 2.5-1000 MG 39 [...] Take 1 UT -metFORMIN 5-19 tablet by RUST 12:39: mouth 1 2.5-1000 MG 39 (one) [...] Take 1 UT -metFORMIN 5-19 tablet by RUST 12:39: mouth 1 2.5-1000 MG 39 (one) [...] 12:39: (one) time 38 each day. glimepiride 2020-0 Yes 2mg QD Take 2 mg U T (Amaryl) 2 5-19 by mouth 1 Hea lth MG tablet 12:39: (one) time 38 each day. Entresto 2020-0 Yes UT 97-103 MG 5-18 Health tablet 00:00: 00 Entresto 1-0 Yes UT 97-103 MG 5-18 Health tablet [...] -acetaminop 5-06 HRS PRN [facility]alt [facility] ([place]) 00:00: PAIN 5-325 MG 00 tablet HYDROcodone 2020-0 Yes 1-2 PO Q 6 UT -acetaminop 5-06 HRS PRN [facility]alt [facility] ([place]) 00:00: PAIN 5-325 MG 00 tablet HYDROcodone 2020-0 Yes 1-2 PO Q 6 UT -acetaminop 5-06 HRS PRN Healt [facility] hen ([place]) 00:00: PAIN 5-325 MG 00 tablet HYDROcodone 2020-0 Yes 1-2 PO Q 6 UT -acetaminop 5-06 HRS PRN Healt [facility] hen ([place]) 00:00: PAIN 5-325 MG 00 tablet HYDROcodone 2020-0 Yes 1-2 PO Q 6 UT -acetaminop 5-06 HRS PRN Healt h hen ([place]) 00:00: PAIN 5-325 MG 00 tablet Eliquis [...] 00:00: (two) 00 times a day. dulaglutide 2020-0 Yes 3mg Q7D 3 mg once M ethodi (TRULICITY) 5-[address] 3 mg/0.5 mL 00:00: Hospit a subcutaneou 00 l s pen dulaglutide 2020-0 Yes 3mg Q7D 3 mg once M [...] pen-injecto (one) time r per week. dulaglutide 2020-0 Yes 3mg Q7D 3 mg once M ethodi (TRULICITY) 5-[address] 3 mg/0.5 mL 00:00: Hospit a subcutaneou 00 l s pen Trulicity Yes .75mg Inject UT 0.75 5-03 0.75 mg Health MG/0.5ML 00:00: under the solution 00 skin 1 pen-injecto (one) time r per week. Trulicity Yes .75mg Inject UT 0.75 5-03 0.75 mg Health MG/0.5ML 00:00: under the solution 00 skin 1 pen-injecto (one) time r per week. tiZANidine Yes 2mg QD Take 2 mg [...] 1 UT n (Crestor) 4-[address] [facility] 40 MG 00:00: MOUTH tablet 00 EVERY DAY AT NIGHT rosuvastati 2020-2021- No 40mg QD Take 1 Met hodi n (CRESTOR) 01-07-26 tablet (40 s t 40 MG 00:00: 00:00 mg total) Hospit a tablet 00 :00 by mouth l nightly. rosuvastati 2021- No 40mg QD Take 1 Met hodi n (CRESTOR) 01-07- tablet (40 s t 40 MG 00:00: 00:00 mg total) Hospit a tablet 00 :00 by mouth l nightly. rosuvastati 2021- No 40mg QD Take 1 Met hodi n (CRESTOR) 01-07- tablet (40 s t 40 MG 00:00: [...] (two) times a day with meals. carvediloL No 12.5mg Q.5D Take 1 Me thodi (COREG) 2-04 28- tablet st 12.5 MG 00:00: 00:00 (12.5 mg Hospi ta tablet 00 :00 total) by l mouth 2 (two) times a day with meals. carvediloL No 12.5mg Q.5D Take 1 Me thodi (COREG) 10-[address] 12.5 MG 00:00: 00:00 (12.5 mg Hospi ta tablet 00 :00 total) by l mouth 2 (two) times a day with meals. Eliquis 5 2019-09- No [id number] TAKE 1 Methodi mg tablet 208-[address] 00:00: 00:00 MOUTH Hospita 00 :00 TWICE A l DAY Eliquis 5 2019-09- No [id number] TAKE 1 Methodi mg tablet 230 - TABLET BY st 00:00: 00:00 MOUTH Hospita 00 :00 TWICE A l DAY Eliquis 5 2019-09- No [id number] TAKE 1 Methodi mg tablet 2- TABLET BY st 00:00: 00:00 MOUTH Hospita 00 :00 TWICE A l DAY Berto, 2019-09 Yes INJECT UT MG/DOSE, 2 2-21 SUBCUTANEO Hea lth MG/1.5ML 00:00: USLY ONCE solution 00 A WEEK pen-injecto DIRECTED r Berto, 2019-09 Yes INJECT UT MG/DOSE, 2 2-21 [...] Take 200 UT (Pacerone) 0-08 mg by [facility] 200 MG 00:00: mouth 1 tablet 00 (one) time each day. amiodarone 2019- Yes 200mg QD Take 200 UT (Pacerone) 0-08 mg by [facility] 200 MG 00:00: mouth 1 tablet 00 (one) time each day. amiodarone 2019- Yes 200mg QD Take 200 UT (Pacerone) 0-08 mg by [facility] 200 MG 00:00: mouth 1 tablet 00 [...] TAKE 3 UT jassi 9-03 TABLETS BY [employer] (Reglan) 10 00:00: MOUTH MG tablet 00 DIRECTED USE DIRECTED PER YOUR COLONOSCOP Y PREP PACKET metoclopram 2020-0 Yes TAKE 3 UT jassi 9-03 TABLETS BY [employer] (Reglan) 10 00:00: MOUTH MG tablet 00 [...] TAKE 3 UT jassi 9-03 TABLETS BY [facility] (Reglan) 10 00:00: MOUTH MG tablet 00 DIRECTED USE DIRECTED PER YOUR COLONOSCOP Y PREP PACKET Ozempic Ozempic 2020- No [facility] as Commo n 12-27 [place] directed Spirit 00:00: 00:00 - CHI 00 :00 [facility] Tresiba Tresiba 2019- No Elizabeth 70 units C ommon FlexTouch FlexTouch 12-27 [place] in am and Spirit 00:00: 00:00 increase - CHI 00 :[address] every 3 [facility] days until Medical fasting Center glucose less 120 max 70 units daily ELIQUIS 5 Yes TAKE [address] MG tablet 9-20 TABLET (5 [facility] 00:00: MG TOTAL) Medical 00 BY MOUTH 2 Center (TWO) TIMES DAILY. ELIQUIS 5 Yes TAKE [address] MG tablet 9-20 TABLET (5 [facility] 00:00: MG TOTAL) Medical 00 BY MOUTH 2 Center (TWO) TIMES DAILY. ENTRESTO Yes TAKE [address] 24-26 mg 7-19 TABLET BY [facility] Tab 00:00: MOUTH 2 Medical 00 (TWO) Center TIMES DAILY. ENTRESTO Yes TAKE [address] 24-26 mg 7-19 TABLET BY [facility] Tab 00:00: MOUTH 2 Medical 00 (TWO) Center TIMES DAILY. linagliptin Yes type 2 1{tbl} QD Take [address] -metformin 6-29 diabetes tablet by [facility] ([facility] 08:04: mellitus mouth M edical ) 2.5-1,000 43 daily. Center mg Tab glimepiride Yes 2mg QD Take [address] (AMARYL) 2 6-29 by mouth [facility] MG tablet 08:04: every Medical 43 evening . Center linagliptin Yes type 2 1{tbl} QD Take [address] -metformin 6-29 diabetes tablet by [facility] 08:[facility]: mellitus mouth M edical ) 2.5-1,000 43 daily. Center mg Tab glimepiride Yes 2mg QD Take [address] (AMARYL) 2 6-29 by mouth [facility] MG tablet 08:04: every Medical 43 evening . Center digoxin 2018-0 Yes TAKE [address] [facility] (LANOXIN[facility] 6[facility]05 [facility]T [facility] 0.125 [facility] 00:00: (125 MCG Medic al tablet 00 TOTAL) BY Center MOUTH DAILY. digoxin 2018-0 Yes TAKE [address] [facility] (LANOXIN) 6-05 TABLET [facility] 0.125 MG 00:00: (125 MCG Medic al tablet 00 TOTAL) BY Center MOUTH DAILY. magnesium 2018-0 Yes TAKE [address] [facility] oxide 4-27 TABLETS [facility] (MAG-OX) 00:00: (800 MG Medica l 400 mg 00 TOTAL) BY Center tablet MOUTH 2 (TWO) TIMES DAILY FOR 30 DAYS. magnesium 2018-0 Yes TAKE [address] [facility] oxide 4-27 [...] 00 twice a tablet day. Digoxin Digoxin 2018-0 Yes [facility] 1 tablet Co mmon 2-20 [facility]: - [facility] Amiodarone Amiodarone 2018-0 Yes Elizabeth 1 tablet [facility] HCl HCl 2-20 [facility]: - [facility] Bumetanide Bumetanide 2018-0 Yes [facility] as [facility] 2-20 [place] [facility] - [facility] Amiodarone Amiodarone 2018-0 No 1{table QD Amiodarone HCl 400 MG HCl 400 MG 2-20 t} HCl 400 MG 00:00: 00 Digoxin 125 Digoxin 125 No 1{table QD Digoxin MCG MCG 2-20 t} 125 MCG 00:00: 00 Bumetanide Bumetanide No Bumetanide 1 MG 1 MG 2-20 1 MG 00:00: 00 Digoxin 125 Digoxin 125 No 1{table QD Digoxin MCG MCG 2-20 t} 125 MCG 00:00: 00 Bumetanide Bumetanide No Bumetanide 1 MG 1 MG 2-20 1 MG 00:00: 00 Amiodarone Amiodarone No 1{table QD Amiodarone HCl 400 MG HCl 400 MG 2-20 t} HCl 400 MG 00:00: 00 Digoxin 125 Digoxin 125 No 1{table QD Digoxin MCG MCG 2-20 t} 125 MCG 00:00: 00 Bumetanide Bumetanide No Bumetanide 1 MG 1 MG 2-20 1 MG 00:00: 00 Amiodarone Amiodarone No 1{table QD Amiodarone HCl 400 MG HCl 400 MG 2-20 t} HCl 400 MG 00:00: 00 Digoxin 125 Digoxin 125 No 1{table QD Digoxin MCG MCG 2-20 t} 125 MCG 00:00: 00 Amiodarone Amiodarone No 1{table QD Amiodarone HCl 200 MG HCl 200 MG 2-20 t} HCl 200 MG 00:00: 00 Bumetanide Bumetanide No Bumetanide 1 MG 1 MG 2-20 1 MG 00:00: 00 Bumetanide Bumetanide No Bumetanide 1 MG 1 MG 2-20 1 MG 00:00: 00 Digoxin 125 Digoxin 125 No 1{table QD Digoxin MCG MCG 2-20 t} 125 MCG 00:00: 00 Amiodarone Amiodarone No 1{table QD Amiodarone HCl 200 MG HCl 200 MG 2-20 t} HCl 200 MG 00:00: 00 Digoxin 125 Digoxin 125 No 1{table QD Digoxin MCG MCG 2-20 t} 125 MCG 00:00: 00 Bumetanide Bumetanide No Bumetanide 1 MG 1 MG 2-20 1 MG 00:00: 00 Amiodarone Amiodarone No 1{table QD Amiodarone HCl 200 MG HCl 200 MG 2-20 t} HCl 200 MG 00:00: 00 Digoxin 125 Digoxin 125 No 1{table QD Digoxin MCG MCG 2-20 t} 125 MCG 00:00: 00 Bumetanide Bumetanide No Bumetanide 1 MG 1 MG 2-20 1 MG 00:00: 00 Amiodarone Amiodarone No 1{table QD Amiodarone HCl 200 MG HCl 200 MG 2-20 t} HCl 200 MG 00:00: 00 Digoxin 125 Digoxin 125 No 1{table QD Digoxin MCG MCG 2-20 t} 125 MCG 00:00: 00 Amiodarone Amiodarone No 1{table QD Amiodarone HCl 200 MG HCl 200 MG 2-20 t} HCl 200 MG 00:00: 00 Bumetanide Bumetanide No Bumetanide 1 MG 1 MG 2-20 1 MG 00:00: 00 Digoxin 125 Digoxin 125 No 1{table QD Digoxin MCG MCG 2-20 t} 125 MCG 00:00: 00 Bumetanide Bumetanide No Bumetanide 1 MG 1 MG 2-20 1 MG 00:00: 00 Amiodarone Amiodarone No 1{table QD Amiodarone HCl 200 MG HCl 200 MG 2-20 t} HCl 200 MG 00:00: 00 Digoxin 125 Digoxin 125 No 1{table QD Digoxin MCG MCG 2-20 t} 125 MCG 00:00: 00 Bumetanide Bumetanide No Bumetanide 1 MG 1 MG 2-20 1 MG 00:00: 00 Amiodarone Amiodarone No 1{table QD Amiodarone HCl 200 MG HCl 200 MG 2-20 t} HCl 200 MG 00:00: 00 Digoxin 125 Digoxin 125 No 1{table QD Digoxin MCG MCG 2-20 t} 125 MCG 00:00: 00 Bumetanide Bumetanide No Bumetanide 1 MG 1 MG 2-20 1 MG 00:00: 00 Amiodarone Amiodarone No 1{table QD Amiodarone HCl 200 MG HCl 200 MG 2-20 t} HCl 200 MG 00:00: 00 Digoxin 125 Digoxin 125 No 1{table QD Digoxin MCG MCG 2-20 t} 125 MCG 00:00: 00 Bumetanide Bumetanide No Bumetanide 1 MG 1 MG 2-20 1 MG 00:00: 00 Amiodarone Amiodarone No 1{table QD Amiodarone HCl 200 MG HCl 200 MG 2-20 t} HCl 200 MG 00:00: 00 Amiodarone Amiodarone No 1{table QD Amiodarone HCl 400 MG HCl 400 MG 2-20 t} HCl 400 MG 00:00: 00 Digoxin 125 Digoxin 125 No 1{table QD Digoxin MCG MCG 2-20 t} 125 MCG 00:00: 00 Bumetanide Bumetanide No Bumetanide 1 MG 1 MG 2-20 1 MG 00:00: 00 rosuvastati 2016-09 Yes 40mg QD Take [address] [facility] (CRESTOR) 2-27 tablet (40 Edith kes 40 MG 00:00: mg total) Medical tablet 00 by mouth Center daily. rosuvastati 2016-09 Yes 40mg QD Take [address] [facility] (CRESTOR) 2-27 tablet (40 Edith kes 40 MG 00:00: mg total) Medical tablet 00 by mouth Center daily. amiodarone 2016-09 Yes 200mg QD Take 1 [...] times daily with breakfast and dinner. amiodarone 2016-09 Yes 200mg QD Take 1 [...] (two) times daily with breakfast and dinner. sacubitril- 2016-09 Yes Comments: U T valsartan [...] 00:00: (one) time 00 each day. aspirin 2016-09 Yes 81mg QD Take 81 mg U T MG EC 2-21 by mouth 1 [facility] tablet 00:00: (one) time 00 each day. sacubitril- 2016-09 Yes Comments: U T valsartan 2-21 | Filled [facility] (Entresto) 00:00: Date: Jan 08 MG 2017 tablet 12:00AM | Patient Notes: TAKE 1 TABLET BY MOUTH 2 (TWO) TIMES DAILY. Duration: 30 Tresiba 200 Tresiba 200 No Tresiba units/mL units/mL 200 units/mL tiZANidine tiZANidine No tiZANidine HCl 2 MG HCl 2 MG HCl 2 MG Albuterol Albuterol No 3{ml_as QID Albuterol Sulfate Sulfate _needed Sulfate (2.5 (2.5 } (2.5 MG/3ML) MG/3ML) MG/3ML) 0.083% 0.083% 0.083% Digoxin 125 Digoxin 125 No Digoxin MCG MCG 125 MCG Fenofibrate Fenofibrate No 1{table QD Fenofibrat 145 MG 145 MG t} e 145 MG Ozempic 1 Ozempic 1 No Ozempic 1 MG/DOSE MG/DOSE MG/DOSE Amoxicillin Amoxicillin No 1{table BID Amoxicilli -Pot -Pot t} n-Pot Clavulanate Clavulanate Clavulanat 875-125 MG 875-125 MG e 875-125 MG Entresto Entresto No BID Entresto 97/103mg 97/103mg 97/103mg 97/103mg 97/103mg 97/103mg Furosemide Furosemide No 1{table QD Furosemide 40 MG 40 MG t} 40 MG Crestor 20 Crestor 20 No 1{table QD Crestor 20 MG MG t} MG Tricor 145 Tricor 145 No 1{table QD Tricor 145 MG MG t_with_ MG food} Rosuvastati Rosuvastati No 1{table QD Rosuvastat n Calcium n Calcium t} in Calcium 40 MG 40 MG 40 MG Glimepiride Glimepiride No Glimepirid 2 MG 2 MG e 2 MG Albuterol Albuterol No 3{ml_as QID Albuterol Sulfate Sulfate _needed Sulfate (2.5 (2.5 } (2.5 MG/3ML) MG/3ML) MG/3ML) 0.083% 0.083% 0.083% Tresiba Tresiba No Tresiba FlexTouch FlexTouch FlexTouch 200 UNIT/ML 200 UNIT/ML 200 UNIT/ML Entresto Entresto No BID Entresto 97/103mg 97/103mg 97/103mg 97/103mg 97/103mg 97/103mg Tresiba 200 Tresiba 200 No Tresiba units/mL units/mL 200 units/mL Amoxicillin Amoxicillin No 1{table BID Amoxicilli -Pot -Pot t} n-Pot Clavulanate Clavulanate Clavulanat 875-125 MG 875-125 MG e 875-125 MG Eliquis 5 Eliquis 5 No BID Eliquis 5 MG MG MG Tricor 145 Tricor 145 No 1{table QD Tricor 145 MG MG t_with_ MG food} Ozempic (1 Ozempic (1 No Ozempic (1 MG/DOSE) 2 MG/DOSE) 2 MG/DOSE) 2 MG/1.5ML MG/1.5ML MG/1.5ML Crestor 20 Crestor 20 No 1{table QD Crestor 20 MG MG t} MG Tresiba Tresiba No Tresiba FlexTouch FlexTouch FlexTouch 200 UNIT/ML 200 UNIT/ML 200 UNIT/ML Carvedilol Carvedilol No Carvedilol 6.25 MG 6.25 MG 6.25 MG NovoFine NovoFine No QD NovoFine Plus 32G X Plus 32G X Plus 32G X 4 MM 4 MM 4 MM Digoxin 125 Digoxin 125 No Digoxin MCG MCG 125 MCG Magnesium Magnesium No 1{table BID Magnesium Oxide 400 Oxide 400 t_as_ne Oxide 400 MG MG eded} MG Eliquis 5 Eliquis 5 No Eliquis 5 mg 5 mg mg 5 mg mg 5 mg NovoLOG 100 NovoLOG 100 No NovoLOG UNIT/ML UNIT/ML 100 UNIT/ML Glimepiride Glimepiride No Glimepirid 2 MG 2 MG e 2 MG Fenofibrate Fenofibrate No 1{table QD Fenofibrat 145 MG 145 MG t} e 145 MG Furosemide Furosemide No 1{table QD Furosemide 40 MG 40 MG t} 40 MG Nitroglycer Nitroglycer No Nitroglyce in 0.4 MG in 0.4 MG rin 0.4 MG Trulicity Trulicity No Trulicity 0.75 0.75 0.75 MG/0.5ML MG/0.5ML MG/0.5ML Carvedilol Carvedilol No 1{table BID Carvedilol 12.5 MG 12.5 MG t_with_ 12.5 MG food} Lokelma 5 Lokelma 5 No Lokelma 5 GM GM GM Rosuvastati Rosuvastati No 1{table QD Rosuvastat n Calcium n Calcium t} in Calcium 40 MG 40 MG 40 MG Aspir-81 81 Aspir-81 81 No 1{table QD Aspir-81 MG MG t} 81 MG Lancets Lancets No Lancets Super Thin Super Thin Super Thin n/s n/s n/s Ozempic 1 Ozempic 1 No Ozempic 1 MG/DOSE MG/DOSE MG/DOSE tiZANidine tiZANidine No tiZANidine HCl 2 MG HCl 2 MG HCl 2 MG Glucometer Glucometer No Glucometer n/s n/s n/s Glimepiride Glimepiride No Glimepirid 2 MG 2 MG e 2 MG Albuterol Albuterol No 3{ml_as QID Albuterol Sulfate Sulfate _needed Sulfate (2.5 (2.5 } (2.5 MG/3ML) MG/3ML) MG/3ML) 0.083% 0.083% 0.083% Rosuvastati Rosuvastati No 1{table QD Rosuvastat n Calcium n Calcium t} in Calcium 40 MG 40 MG 40 MG Crestor 20 Crestor 20 No 1{table QD Crestor 20 MG MG t} MG Furosemide Furosemide No 1{table QD Furosemide 40 MG 40 MG t} 40 MG Tricor 145 Tricor 145 No 1{table QD Tricor 145 MG MG t_with_ MG food} Tresiba Tresiba No Tresiba FlexTouch FlexTouch FlexTouch 200 UNIT/ML 200 UNIT/ML 200 UNIT/ML Carvedilol Carvedilol No Carvedilol 6.25 MG 6.25 MG 6.25 MG Nitroglycer Nitroglycer No Nitroglyce in 0.4 MG in 0.4 MG rin 0.4 MG Amoxicillin Amoxicillin No 1{table BID Amoxicilli -Pot -Pot t} n-Pot Clavulanate Clavulanate Clavulanat 875-125 MG 875-125 MG e 875-125 MG Trulicity Trulicity No Trulicity 0.75 0.75 0.75 MG/0.5ML MG/0.5ML MG/0.5ML NovoFine NovoFine No QD NovoFine Plus 32G X Plus 32G X Plus 32G X 4 MM 4 MM 4 MM Fenofibrate Fenofibrate No 1{table QD Fenofibrat 145 MG 145 MG t} e 145 MG Eliquis 5 Eliquis 5 No Eliquis 5 mg 5 mg mg 5 mg mg 5 mg Entresto Entresto No BID Entresto 97/103mg 97/103mg 97/103mg 97/103mg 97/103mg 97/103mg Aspir-81 81 Aspir-81 81 No 1{table QD Aspir-81 MG MG t} 81 MG Carvedilol Carvedilol No 1{table BID Carvedilol 12.5 MG 12.5 MG t_with_ 12.5 MG food} Digoxin 125 Digoxin 125 No Digoxin MCG MCG 125 MCG Lokelma 5 Lokelma 5 No Lokelma 5 GM GM GM NovoLOG 100 NovoLOG 100 No NovoLOG UNIT/ML UNIT/ML 100 UNIT/ML Eliquis 5 Eliquis 5 No BID Eliquis 5 MG MG MG Magnesium Magnesium No 1{table BID Magnesium Oxide 400 Oxide 400 t_as_ne Oxide 400 MG MG eded} MG Ozempic (1 Ozempic (1 No Ozempic (1 MG/DOSE) 2 MG/DOSE) 2 MG/DOSE) 2 MG/1.5ML MG/1.5ML MG/1.5ML tiZANidine tiZANidine No tiZANidine HCl 2 MG HCl 2 MG HCl 2 MG Ozempic 1 Ozempic 1 No Ozempic 1 MG/DOSE MG/DOSE MG/DOSE Glucometer Glucometer No Glucometer n/s n/s n/s Lancets Lancets No Lancets Super Thin Super Thin Super Thin n/s n/s n/s Tresiba 200 Tresiba 200 No Tresiba units/mL units/mL 200 units/mL Glimepiride Glimepiride No Glimepirid 2 MG 2 MG e 2 MG Albuterol Albuterol No 3{ml_as QID Albuterol Sulfate Sulfate _needed Sulfate (2.5 (2.5 } (2.5 MG/3ML) MG/3ML) MG/3ML) 0.083% 0.083% 0.083% Rosuvastati Rosuvastati No 1{table QD Rosuvastat n Calcium n Calcium t} in Calcium 40 MG 40 MG 40 MG Crestor 20 Crestor 20 No 1{table QD Crestor 20 MG MG t} MG Furosemide Furosemide No 1{table QD Furosemide 40 MG 40 MG t} 40 MG Tricor 145 Tricor 145 No 1{table QD Tricor 145 MG MG t_with_ MG food} Tresiba Tresiba No Tresiba FlexTouch FlexTouch FlexTouch 200 UNIT/ML 200 UNIT/ML 200 UNIT/ML Carvedilol Carvedilol No Carvedilol 6.25 MG 6.25 MG 6.25 MG Nitroglycer Nitroglycer No Nitroglyce in 0.4 MG in 0.4 MG rin 0.4 MG Amoxicillin Amoxicillin No 1{table BID Amoxicilli -Pot -Pot t} n-Pot Clavulanate Clavulanate Clavulanat 875-125 MG 875-125 MG e 875-125 MG Trulicity Trulicity No Trulicity 0.75 0.75 0.75 MG/0.5ML MG/0.5ML MG/0.5ML NovoFine NovoFine No QD NovoFine Plus 32G X Plus 32G X Plus 32G X 4 MM 4 MM 4 MM Fenofibrate Fenofibrate No 1{table QD Fenofibrat 145 MG 145 MG t} e 145 MG Eliquis 5 Eliquis 5 No Eliquis 5 mg 5 mg mg 5 mg mg 5 mg Entresto Entresto No BID Entresto 97/103mg 97/103mg 97/103mg 97/103mg 97/103mg 97/103mg Aspir-81 81 Aspir-81 81 No 1{table QD Aspir-81 MG MG t} 81 MG Carvedilol Carvedilol No 1{table BID Carvedilol 12.5 MG 12.5 MG t_with_ 12.5 MG food} Digoxin 125 Digoxin 125 No Digoxin MCG MCG 125 MCG Lokelma 5 Lokelma 5 No Lokelma 5 GM GM GM NovoLOG 100 NovoLOG 100 No NovoLOG UNIT/ML UNIT/ML 100 UNIT/ML Eliquis 5 Eliquis 5 No BID Eliquis 5 MG MG MG Magnesium Magnesium No 1{table BID Magnesium Oxide 400 Oxide 400 t_as_ne Oxide 400 MG MG eded} MG Ozempic (1 Ozempic (1 No Ozempic (1 MG/DOSE) 2 MG/DOSE) 2 MG/DOSE) 2 MG/1.5ML MG/1.5ML MG/1.5ML tiZANidine tiZANidine No tiZANidine HCl 2 MG HCl 2 MG HCl 2 MG Ozempic 1 Ozempic 1 No Ozempic 1 MG/DOSE MG/DOSE MG/DOSE Glucometer Glucometer No Glucometer n/s n/s n/s Lancets Lancets No Lancets Super Thin Super Thin Super Thin n/s n/s n/s Tresiba 200 Tresiba 200 No Tresiba units/mL units/mL 200 units/mL Glimepiride Glimepiride No Glimepirid 2 MG 2 MG e 2 MG Albuterol Albuterol No 3{ml_as QID Albuterol Sulfate Sulfate _needed Sulfate (2.5 (2.5 } (2.5 MG/3ML) MG/3ML) MG/3ML) 0.083% 0.083% 0.083% Rosuvastati Rosuvastati No 1{table QD Rosuvastat n Calcium n Calcium t} in Calcium 40 MG 40 MG 40 MG Crestor 20 Crestor 20 No 1{table QD Crestor 20 MG MG t} MG Furosemide Furosemide No 1{table QD Furosemide 40 MG 40 MG t} 40 MG Tricor 145 Tricor 145 No 1{table QD Tricor 145 MG MG t_with_ MG food} Tresiba Tresiba No Tresiba FlexTouch FlexTouch FlexTouch 200 UNIT/ML 200 UNIT/ML 200 UNIT/ML Carvedilol Carvedilol No Carvedilol 6.25 MG 6.25 MG 6.25 MG Trulicity Trulicity No Trulicity 0.75 0.75 0.75 MG/0.5ML MG/0.5ML MG/0.5ML Amoxicillin Amoxicillin No 1{table BID Amoxicilli -Pot -Pot t} n-Pot Clavulanate Clavulanate Clavulanat 875-125 MG 875-125 MG e 875-125 MG NovoFine NovoFine No QD NovoFine Plus 32G X Plus 32G X Plus 32G X 4 MM 4 MM 4 MM Nitroglycer Nitroglycer No Nitroglyce in 0.4 MG in 0.4 MG rin 0.4 MG Fenofibrate Fenofibrate No 1{table QD Fenofibrat 145 MG 145 MG t} e 145 MG Eliquis 5 Eliquis 5 No Eliquis 5 mg 5 mg mg 5 mg mg 5 mg Entresto Entresto No BID Entresto 97/103mg 97/103mg 97/103mg 97/103mg 97/103mg 97/103mg Aspir-81 81 Aspir-81 81 No 1{table QD Aspir-81 MG MG t} 81 MG Carvedilol Carvedilol No 1{table BID Carvedilol 12.5 MG 12.5 MG t_with_ 12.5 MG food} Digoxin 125 Digoxin 125 No Digoxin MCG MCG 125 MCG Lokelma 5 Lokelma 5 No Lokelma 5 GM GM GM NovoLOG 100 NovoLOG 100 No NovoLOG UNIT/ML UNIT/ML 100 UNIT/ML Eliquis 5 Eliquis 5 No BID Eliquis 5 MG MG MG Magnesium Magnesium No 1{table BID Magnesium Oxide 400 Oxide 400 t_as_ne Oxide 400 MG MG eded} MG Ozempic (1 Ozempic (1 No Ozempic (1 MG/DOSE) 2 MG/DOSE) 2 MG/DOSE) 2 MG/1.5ML MG/1.5ML MG/1.5ML tiZANidine tiZANidine No tiZANidine HCl 2 MG HCl 2 MG HCl 2 MG Ozempic 1 Ozempic 1 No Ozempic 1 MG/DOSE MG/DOSE MG/DOSE Glucometer Glucometer No Glucometer n/s n/s n/s Lancets Lancets No Lancets Super Thin Super Thin Super Thin n/s n/s n/s Tresiba 200 Tresiba 200 No Tresiba units/mL units/mL 200 units/mL Glimepiride Glimepiride No Glimepirid 2 MG 2 MG e 2 MG Albuterol Albuterol No 3{ml_as QID Albuterol Sulfate Sulfate _needed Sulfate (2.5 (2.5 } (2.5 MG/3ML) MG/3ML) MG/3ML) 0.083% 0.083% 0.083% Rosuvastati Rosuvastati No 1{table QD Rosuvastat n Calcium n Calcium t} in Calcium 40 MG 40 MG 40 MG Crestor 20 Crestor 20 No 1{table QD Crestor 20 MG MG t} MG Furosemide Furosemide No 1{table QD Furosemide 40 MG 40 MG t} 40 MG Tricor 145 Tricor 145 No 1{table QD Tricor 145 MG MG t_with_ MG food} Tresiba Tresiba No Tresiba FlexTouch FlexTouch FlexTouch 200 UNIT/ML 200 UNIT/ML 200 UNIT/ML Carvedilol Carvedilol No Carvedilol 6.25 MG 6.25 MG 6.25 MG Trulicity Trulicity No Trulicity 0.75 0.75 0.75 MG/0.5ML MG/0.5ML MG/0.5ML Amoxicillin Amoxicillin No 1{table BID Amoxicilli -Pot -Pot t} n-Pot Clavulanate Clavulanate Clavulanat 875-125 MG 875-125 MG e 875-125 MG NovoFine NovoFine No QD NovoFine Plus 32G X Plus 32G X Plus 32G X 4 MM 4 MM 4 MM Nitroglycer Nitroglycer No Nitroglyce in 0.4 MG in 0.4 MG rin 0.4 MG Fenofibrate Fenofibrate No 1{table QD Fenofibrat 145 MG 145 MG t} e 145 MG Eliquis 5 Eliquis 5 No Eliquis 5 mg 5 mg mg 5 mg mg 5 mg Entresto Entresto No BID Entresto 97/103mg 97/103mg 97/103mg 97/103mg 97/103mg 97/103mg Aspir-81 81 Aspir-81 81 No 1{table QD Aspir-81 MG MG t} 81 MG Carvedilol Carvedilol No 1{table BID Carvedilol 12.5 MG 12.5 MG t_with_ 12.5 MG food} Digoxin 125 Digoxin 125 No Digoxin MCG MCG 125 MCG Lokelma 5 Lokelma 5 No Lokelma 5 GM GM GM NovoLOG 100 NovoLOG 100 No NovoLOG UNIT/ML UNIT/ML 100 UNIT/ML Eliquis 5 Eliquis 5 No BID Eliquis 5 MG MG MG Magnesium Magnesium No 1{table BID Magnesium Oxide 400 Oxide 400 t_as_ne Oxide 400 MG MG eded} MG Ozempic (1 Ozempic (1 No Ozempic (1 MG/DOSE) 2 MG/DOSE) 2 MG/DOSE) 2 MG/1.5ML MG/1.5ML MG/1.5ML tiZANidine tiZANidine No tiZANidine HCl 2 MG HCl 2 MG HCl 2 MG Ozempic 1 Ozempic 1 No Ozempic 1 MG/DOSE MG/DOSE MG/DOSE Glucometer Glucometer No Glucometer n/s n/s n/s Lancets Lancets No Lancets Super Thin Super Thin Super Thin n/s n/s n/s Tresiba 200 Tresiba 200 No Tresiba units/mL units/mL 200 units/mL Tricor 145 Tricor 145 No 1{table QD Tricor 145 MG MG t_with_ MG food} Aspir-81 81 Aspir-81 81 No 1{table QD Aspir-81 MG MG t} 81 MG Nitroglycer Nitroglycer No Nitroglyce in 0.4 MG in 0.4 MG rin 0.4 MG Eliquis 5 Eliquis 5 No BID Eliquis 5 MG MG MG Glimepiride Glimepiride No Glimepirid 2 MG 2 MG e 2 MG Tresiba Tresiba No Tresiba FlexTouch FlexTouch FlexTouch 200 UNIT/ML 200 UNIT/ML 200 UNIT/ML Carvedilol Carvedilol No Carvedilol 6.25 MG 6.25 MG 6.25 MG Trulicity Trulicity No Trulicity 0.75 0.75 0.75 MG/0.5ML MG/0.5ML MG/0.5ML Ozempic (1 Ozempic (1 No Ozempic (1 MG/DOSE) 2 MG/DOSE) 2 MG/DOSE) 2 MG/1.5ML MG/1.5ML MG/1.5ML Lancets Lancets No Lancets Super Thin Super Thin Super Thin n/s n/s n/s Glucometer Glucometer No Glucometer n/s n/s n/s Entresto Entresto No BID Entresto 97/103mg 97/103mg 97/103mg 97/103mg 97/103mg 97/103mg tiZANidine tiZANidine No tiZANidine HCl 2 MG HCl 2 MG HCl 2 MG Tresiba Tresiba No Tresiba FlexTouch FlexTouch FlexTouch 200 UNIT/ML 200 UNIT/ML 200 UNIT/ML Tresiba 200 Tresiba 200 No Tresiba units/mL units/mL 200 units/mL Albuterol Albuterol No 3{ml_as QID Albuterol Sulfate Sulfate _needed Sulfate (2.5 (2.5 } (2.5 MG/3ML) MG/3ML) MG/3ML) 0.083% 0.083% 0.083% NovoFine NovoFine No QD NovoFine Plus 32G X Plus 32G X Plus 32G X 4 MM 4 MM 4 MM Carvedilol Carvedilol Yes [facility] as Co mmon [place] directed [facility] Crestor Crestor Yes Elizabeth 1 tablet Comm on [place] [facility] Nitroglycer Nitroglycer Yes Elizabeth not Common in in [place] defined [facility] Tricor Tricor Yes Elizabeth 1 tablet Common [place] with food [facility] Albuterol Albuterol Yes Elizabeth 3 ml as C ommon Sulfate Sulfate [place] needed Spi rit [facility] Eliquis Eliquis Yes Elizabeth 1 Common [place] [facility] Entresto Entresto Yes Elizabeth one Common 97/103mg 97/103mg [place] [facility] Glimepiride Glimepiride Yes Elizabeth TAKE 1 Common [place] TABLET AT [facility] BEDTIME [facility] Lancets Lancets Yes Elizabeth one Common Super Thin Super Thin [place] [facility] Glucometer Glucometer Yes Elizabeth one Co mmon [place] [facility] Aspir-81 Aspir-81 Yes Elizabeth 1 tablet Co mmon [place] [facility] NovoFine NovoFine Yes Elizabeth as Common Plus Plus [place] directed [facility] Ozempic 1 Ozempic 1 No Ozempic 1 MG/DOSE MG/DOSE MG/DOSE Crestor 20 Crestor 20 No 1{table QD Crestor 20 MG MG t} MG Tricor 145 Tricor 145 No 1{table QD Tricor 145 MG MG t_with_ MG food} Aspir-81 81 Aspir-81 81 No 1{table QD Aspir-81 MG MG t} 81 MG Nitroglycer Nitroglycer No Nitroglyce in 0.4 MG in 0.4 MG rin 0.4 MG Eliquis 5 Eliquis 5 No BID Eliquis 5 MG MG MG Glimepiride Glimepiride No Glimepirid 2 MG 2 MG e 2 MG Tresiba Tresiba No Tresiba FlexTouch FlexTouch FlexTouch 200 UNIT/ML 200 UNIT/ML 200 UNIT/ML Carvedilol Carvedilol No Carvedilol 6.25 MG 6.25 MG 6.25 MG Trulicity Trulicity No Trulicity 0.75 0.75 0.75 MG/0.5ML MG/0.5ML MG/0.5ML Ozempic (1 Ozempic (1 No Ozempic (1 MG/DOSE) 2 MG/DOSE) 2 MG/DOSE) 2 MG/1.5ML MG/1.5ML MG/1.5ML Lancets Lancets No Lancets Super Thin Super Thin Super Thin n/s n/s n/s Glucometer Glucometer No Glucometer n/s n/s n/s Entresto Entresto No BID Entresto 97/103mg 97/103mg 97/103mg 97/103mg 97/103mg 97/103mg tiZANidine tiZANidine No tiZANidine HCl 2 MG HCl 2 MG HCl 2 MG Tresiba Tresiba No Tresiba FlexTouch FlexTouch FlexTouch 200 UNIT/ML 200 UNIT/ML 200 UNIT/ML Tresiba 200 Tresiba 200 No Tresiba units/mL units/mL 200 units/mL Albuterol Albuterol No 3{ml_as QID Albuterol Sulfate Sulfate _needed Sulfate (2.5 (2.5 } (2.5 MG/3ML) MG/3ML) MG/3ML) 0.083% 0.083% 0.083% NovoFine NovoFine No QD NovoFine Plus 32G X Plus 32G X Plus 32G X 4 MM 4 MM 4 MM Ozempic 1 Ozempic 1 No Ozempic 1 MG/DOSE MG/DOSE MG/DOSE Crestor 20 Crestor 20 No 1{table QD Crestor 20 MG MG t} MG Albuterol Albuterol No 3{ml_as QID Albuterol Sulfate Sulfate _needed Sulfate (2.5 (2.5 } (2.5 MG/3ML) MG/3ML) MG/3ML) 0.083% 0.083% 0.083% Tresiba Tresiba No QD Tresiba FlexTouch FlexTouch FlexTouch 200 UNIT/ML 200 UNIT/ML 200 UNIT/ML Carvedilol Carvedilol No Carvedilol 6.25 MG 6.25 MG 6.25 MG Tresiba Tresiba No Tresiba FlexTouch FlexTouch FlexTouch 200 UNIT/ML 200 UNIT/ML 200 UNIT/ML NovoFine NovoFine No QD NovoFine Plus 32G X Plus 32G X Plus 32G X 4 MM 4 MM 4 MM Crestor 20 Crestor 20 No 1{table QD Crestor 20 MG MG t} MG Entresto Entresto No BID Entresto 97/103mg 97/103mg 97/103mg 97/103mg 97/103mg 97/103mg Nitroglycer Nitroglycer No Nitroglyce in 0.4 MG in 0.4 MG rin 0.4 MG Eliquis 5 Eliquis 5 No Eliquis 5 mg 5 mg mg 5 mg mg 5 mg Lancets Lancets No Lancets Super Thin Super Thin Super Thin n/s n/s n/s Glimepiride Glimepiride No Glimepirid 2 MG 2 MG e 2 MG tiZANidine tiZANidine No tiZANidine HCl 2 MG HCl 2 MG HCl 2 MG Ozempic (1 Ozempic (1 No Ozempic (1 MG/DOSE) 2 MG/DOSE) 2 MG/DOSE) 2 MG/1.5ML MG/1.5ML MG/1.5ML Trulicity Trulicity No Trulicity 0.75 0.75 0.75 MG/0.5ML MG/0.5ML MG/0.5ML Amoxicillin Amoxicillin No 1{table BID Amoxicilli -Pot -Pot t} n-Pot Clavulanate Clavulanate Clavulanat 875-125 MG 875-125 MG e 875-125 MG Aspir-81 81 Aspir-81 81 No 1{table QD Aspir-81 MG MG t} 81 MG Tricor 145 Tricor 145 No 1{table QD Tricor 145 MG MG t_with_ MG food} Glucometer Glucometer No Glucometer n/s n/s n/s Eliquis 5 Eliquis 5 No BID Eliquis 5 MG MG MG Tresiba 200 Tresiba 200 No Tresiba units/mL units/mL 200 units/mL Carvedilol Carvedilol No 1{table BID Carvedilol 12.5 MG 12.5 MG t_with_ 12.5 MG food} Furosemide Furosemide No 1{table QD Furosemide 40 MG 40 MG t} 40 MG Ozempic 1 Ozempic 1 No Ozempic 1 MG/DOSE MG/DOSE MG/DOSE NovoLOG 100 NovoLOG 100 No NovoLOG UNIT/ML UNIT/ML 100 UNIT/ML Rosuvastati Rosuvastati No 1{table QD Rosuvastat n Calcium n Calcium t} in Calcium 40 MG 40 MG 40 MG Fenofibrate Fenofibrate No 1{table QD Fenofibrat 145 MG 145 MG t} e 145 MG Magnesium Magnesium No 1{table BID Magnesium Oxide 400 Oxide 400 t_as_ne Oxide 400 MG MG eded} MG Digoxin 125 Digoxin 125 No Digoxin MCG MCG 125 MCG Albuterol Albuterol No 3{ml_as QID Albuterol Sulfate Sulfate _needed Sulfate (2.5 (2.5 } (2.5 MG/3ML) MG/3ML) MG/3ML) 0.083% 0.083% 0.083% Tresiba Tresiba No QD Tresiba FlexTouch FlexTouch FlexTouch 200 UNIT/ML 200 UNIT/ML 200 UNIT/ML Carvedilol Carvedilol No Carvedilol 6.25 MG 6.25 MG 6.25 MG Tresiba Tresiba No Tresiba FlexTouch FlexTouch FlexTouch 200 UNIT/ML 200 UNIT/ML 200 UNIT/ML NovoFine NovoFine No QD NovoFine Plus 32G X Plus 32G X Plus 32G X 4 MM 4 MM 4 MM Crestor 20 Crestor 20 No 1{table QD Crestor 20 MG MG t} MG Entresto Entresto No BID Entresto 97/103mg 97/103mg 97/103mg 97/103mg 97/103mg 97/103mg Nitroglycer Nitroglycer No Nitroglyce in 0.4 MG in 0.4 MG rin 0.4 MG Eliquis 5 Eliquis 5 No Eliquis 5 mg 5 mg mg 5 mg mg 5 mg Lancets Lancets No Lancets Super Thin Super Thin Super Thin n/s n/s n/s Glimepiride Glimepiride No Glimepirid 2 MG 2 MG e 2 MG tiZANidine tiZANidine No tiZANidine HCl 2 MG HCl 2 MG HCl 2 MG Ozempic (1 Ozempic (1 No Ozempic (1 MG/DOSE) 2 MG/DOSE) 2 MG/DOSE) 2 MG/1.5ML MG/1.5ML MG/1.5ML Trulicity Trulicity No Trulicity 0.75 0.75 0.75 MG/0.5ML MG/0.5ML MG/0.5ML Amoxicillin Amoxicillin No 1{table BID Amoxicilli -Pot -Pot t} n-Pot Clavulanate Clavulanate Clavulanat 875-125 MG 875-125 MG e 875-125 MG Aspir-81 81 Aspir-81 81 No 1{table QD Aspir-81 MG MG t} 81 MG Tricor 145 Tricor 145 No 1{table QD Tricor 145 MG MG t_with_ MG food} Glucometer Glucometer No Glucometer n/s n/s n/s Eliquis 5 Eliquis 5 No BID Eliquis 5 MG MG MG Tresiba 200 Tresiba 200 No Tresiba units/mL units/mL 200 units/mL Carvedilol Carvedilol No 1{table BID Carvedilol 12.5 MG 12.5 MG t_with_ 12.5 MG food} Furosemide Furosemide No 1{table QD Furosemide 40 MG 40 MG t} 40 MG Ozempic 1 Ozempic 1 No Ozempic 1 MG/DOSE MG/DOSE MG/DOSE NovoLOG 100 NovoLOG 100 No NovoLOG UNIT/ML UNIT/ML 100 UNIT/ML Rosuvastati Rosuvastati No 1{table QD Rosuvastat n Calcium n Calcium t} in Calcium 40 MG 40 MG 40 MG Fenofibrate Fenofibrate No 1{table QD Fenofibrat 145 MG 145 MG t} e 145 MG Magnesium Magnesium No 1{table BID Magnesium Oxide 400 Oxide 400 t_as_ne Oxide 400 MG MG eded} MG Digoxin 125 Digoxin 125 No Digoxin MCG MCG 125 MCG Glimepiride Glimepiride No Glimepirid 2 MG 2 MG e 2 MG Magnesium Magnesium No 1{table BID Magnesium Oxide 400 Oxide 400 t_as_ne Oxide 400 MG MG eded} MG Trulicity Trulicity No Trulicity 0.75 0.75 0.75 MG/0.5ML MG/0.5ML MG/0.5ML Fenofibrate Fenofibrate No 1{table QD Fenofibrat 145 MG 145 MG t} e 145 MG Rosuvastati Rosuvastati No 1{table QD Rosuvastat n Calcium n Calcium t} in Calcium 40 MG 40 MG 40 MG Ozempic 1 Ozempic 1 No Ozempic 1 MG/DOSE MG/DOSE MG/DOSE Carvedilol Carvedilol No Carvedilol 6.25 MG 6.25 MG 6.25 MG tiZANidine tiZANidine No tiZANidine HCl 2 MG HCl 2 MG HCl 2 MG Tricor 145 Tricor 145 No 1{table QD Tricor 145 MG MG t_with_ MG food} NovoFine NovoFine No QD NovoFine Plus 32G X Plus 32G X Plus 32G X 4 MM 4 MM 4 MM Glucometer Glucometer No Glucometer n/s n/s n/s Tresiba Tresiba No Tresiba FlexTouch FlexTouch FlexTouch 200 UNIT/ML 200 UNIT/ML 200 UNIT/ML Crestor 20 Crestor 20 No 1{table QD Crestor 20 MG MG t} MG Eliquis 5 Eliquis 5 No Eliquis 5 mg 5 mg mg 5 mg mg 5 mg Entresto Entresto No BID Entresto 97/103mg 97/103mg 97/103mg 97/103mg 97/103mg 97/103mg Albuterol Albuterol No 3{ml_as QID Albuterol Sulfate Sulfate _needed Sulfate (2.5 (2.5 } (2.5 MG/3ML) MG/3ML) MG/3ML) 0.083% 0.083% 0.083% Carvedilol Carvedilol No 1{table BID Carvedilol 12.5 MG 12.5 MG t_with_ 12.5 MG food} Lancets Lancets No Lancets Super Thin Super Thin Super Thin n/s n/s n/s Tresiba 200 Tresiba 200 No Tresiba units/mL units/mL 200 units/mL Ozempic (1 Ozempic (1 No Ozempic (1 MG/DOSE) 2 MG/DOSE) 2 MG/DOSE) 2 MG/1.5ML MG/1.5ML MG/1.5ML Eliquis 5 Eliquis 5 No BID Eliquis 5 MG MG MG Lokelma 5 Lokelma 5 No Lokelma 5 GM GM GM Digoxin 125 Digoxin 125 No Digoxin MCG MCG 125 MCG Aspir-81 81 Aspir-81 81 No 1{table QD Aspir-81 MG MG t} 81 MG Nitroglycer Nitroglycer No Nitroglyce in 0.4 MG in 0.4 MG rin 0.4 MG Amoxicillin Amoxicillin No 1{table BID Amoxicilli -Pot -Pot t} n-Pot Clavulanate Clavulanate Clavulanat 875-125 MG 875-125 MG e 875-125 MG NovoLOG 100 NovoLOG 100 No NovoLOG UNIT/ML UNIT/ML 100 UNIT/ML Tresiba Tresiba No Tresiba FlexTouch FlexTouch FlexTouch 200 UNIT/ML 200 UNIT/ML 200 UNIT/ML Furosemide Furosemide No 1{table QD Furosemide 40 MG 40 MG t} 40 MG Nitroglycer Nitroglycer No Nitroglyce in 0.4 MG in 0.4 MG rin 0.4 MG Crestor 20 Crestor 20 No 1{table QD Crestor 20 MG MG t} MG Trulicity Trulicity No Trulicity 0.75 0.75 0.75 MG/0.5ML MG/0.5ML MG/0.5ML NovoLOG 100 NovoLOG 100 No NovoLOG UNIT/ML UNIT/ML 100 UNIT/ML Albuterol Albuterol No 3{ml_as QID Albuterol Sulfate Sulfate _needed Sulfate (2.5 (2.5 } (2.5 MG/3ML) MG/3ML) MG/3ML) 0.083% 0.083% 0.083% NovoFine NovoFine No QD NovoFine Plus 32G X Plus 32G X Plus 32G X 4 MM 4 MM 4 MM Tresiba 200 Tresiba 200 No Tresiba units/mL units/mL 200 units/mL tiZANidine tiZANidine No tiZANidine HCl 2 MG HCl 2 MG HCl 2 MG Digoxin 125 Digoxin 125 No Digoxin MCG MCG 125 MCG Glucometer Glucometer No Glucometer n/s n/s n/s Ozempic 1 Ozempic 1 No Ozempic 1 MG/DOSE MG/DOSE MG/DOSE Glimepiride Glimepiride No Glimepirid 2 MG 2 MG e 2 MG Lancets Lancets No Lancets Super Thin Super Thin Super Thin n/s n/s n/s Amoxicillin Amoxicillin No 1{table BID Amoxicilli -Pot -Pot t} n-Pot Clavulanate Clavulanate Clavulanat 875-125 MG 875-125 MG e 875-125 MG Lokelma 5 Lokelma 5 No Lokelma 5 GM GM GM Eliquis 5 Eliquis 5 No BID Eliquis 5 MG MG MG Furosemide Furosemide No 1{table QD Furosemide 40 MG 40 MG t} 40 MG Tricor 145 Tricor 145 No 1{table QD Tricor 145 MG MG t_with_ MG food} Ozempic (1 Ozempic (1 No Ozempic (1 MG/DOSE) 2 MG/DOSE) 2 MG/DOSE) 2 MG/1.5ML MG/1.5ML MG/1.5ML Entresto Entresto No BID Entresto 97/103mg 97/103mg 97/103mg 97/103mg 97/103mg 97/103mg Tresiba Tresiba No Tresiba FlexTouch FlexTouch FlexTouch 200 UNIT/ML 200 UNIT/ML 200 UNIT/ML Carvedilol Carvedilol No Carvedilol 6.25 MG 6.25 MG 6.25 MG Aspir-81 81 Aspir-81 81 No 1{table QD Aspir-81 MG MG t} 81 MG Tresiba Tresiba No Tresiba FlexTouch FlexTouch FlexTouch 200 UNIT/ML 200 UNIT/ML 200 UNIT/ML Eliquis 5 Eliquis 5 No Eliquis 5 mg 5 mg mg 5 mg mg 5 mg Fenofibrate Fenofibrate No 1{table QD Fenofibrat 145 MG 145 MG t} e 145 MG Carvedilol Carvedilol No 1{table BID Carvedilol 12.5 MG 12.5 MG t_with_ 12.5 MG food} Magnesium Magnesium No 1{table BID Magnesium Oxide 400 Oxide 400 t_as_ne Oxide 400 MG MG eded} MG Rosuvastati Rosuvastati No 1{table QD Rosuvastat n Calcium n Calcium t} in Calcium 40 MG 40 MG 40 MG NovoLOG 100 NovoLOG 100 No NovoLOG UNIT/ML UNIT/ML 100 UNIT/ML Ozempic (1 Ozempic (1 No Ozempic (1 MG/DOSE) 2 MG/DOSE) 2 MG/DOSE) 2 MG/1.5ML MG/1.5ML MG/1.5ML Tresiba Tresiba No Tresiba FlexTouch FlexTouch FlexTouch 200 UNIT/ML 200 UNIT/ML 200 UNIT/ML Aspir-81 81 Aspir-81 81 No 1{table QD Aspir-81 MG MG t} 81 MG Lancets Lancets No Lancets Super Thin Super Thin Super Thin n/s n/s n/s Tresiba Tresiba No Tresiba FlexTouch FlexTouch FlexTouch 200 UNIT/ML 200 UNIT/ML 200 UNIT/ML Eliquis 5 Eliquis 5 No BID Eliquis 5 MG MG MG Carvedilol Carvedilol No Carvedilol 6.25 MG 6.25 MG 6.25 MG Eliquis 5 Eliquis 5 No Eliquis 5 mg 5 mg mg 5 mg mg 5 mg Trulicity Trulicity No Trulicity 0.75 0.75 0.75 MG/0.5ML MG/0.5ML MG/0.5ML Carvedilol Carvedilol No 1{table BID Carvedilol 12.5 MG 12.5 MG t_with_ 12.5 MG food} NovoFine NovoFine No QD NovoFine Plus 32G X Plus 32G X Plus 32G X 4 MM 4 MM 4 MM Glucometer Glucometer No Glucometer n/s n/s n/s Nitroglycer Nitroglycer No Nitroglyce in 0.4 MG in 0.4 MG rin 0.4 MG Magnesium Magnesium No 1{table BID Magnesium Oxide 400 Oxide 400 t_as_ne Oxide 400 MG MG eded} MG Lokelma 5 Lokelma 5 No Lokelma 5 GM GM GM Tresiba 200 Tresiba 200 No Tresiba units/mL units/mL 200 units/mL tiZANidine tiZANidine No tiZANidine HCl 2 MG HCl 2 MG HCl 2 MG Albuterol Albuterol No 3{ml_as QID Albuterol Sulfate Sulfate _needed Sulfate (2.5 (2.5 } (2.5 MG/3ML) MG/3ML) MG/3ML) 0.083% 0.083% 0.083% Digoxin 125 Digoxin 125 No Digoxin MCG MCG 125 MCG Fenofibrate Fenofibrate No 1{table QD Fenofibrat 145 MG 145 MG t} e 145 MG Ozempic 1 Ozempic 1 No Ozempic 1 MG/DOSE MG/DOSE MG/DOSE Amoxicillin Amoxicillin No 1{table BID Amoxicilli -Pot -Pot t} n-Pot Clavulanate Clavulanate Clavulanat 875-125 MG 875-125 MG e 875-125 MG Entresto Entresto No BID Entresto 97/103mg 97/103mg 97/103mg 97/103mg 97/103mg 97/103mg Furosemide Furosemide No 1{table QD Furosemide 40 MG 40 MG t} 40 MG Crestor 20 Crestor 20 No 1{table QD Crestor 20 MG MG t} MG Tricor 145 Tricor 145 No 1{table QD Tricor 145 MG MG t_with_ MG food} Rosuvastati Rosuvastati No 1{table QD Rosuvastat n Calcium n Calcium t} in Calcium 40 MG 40 MG 40 MG Glimepiride Glimepiride No Glimepirid 2 MG 2 MG e 2 MG NovoLOG 100 NovoLOG 100 No NovoLOG UNIT/ML UNIT/ML 100 UNIT/ML Ozempic (1 Ozempic (1 No Ozempic (1 MG/DOSE) 2 MG/DOSE) 2 MG/DOSE) 2 MG/1.5ML MG/1.5ML MG/1.5ML Tresiba Tresiba No Tresiba FlexTouch FlexTouch FlexTouch 200 UNIT/ML 200 UNIT/ML 200 UNIT/ML Aspir-81 81 Aspir-81 81 No 1{table QD Aspir-81 MG MG t} 81 MG Lancets Lancets No Lancets Super Thin Super Thin Super Thin n/s n/s n/s Tresiba Tresiba No Tresiba FlexTouch FlexTouch FlexTouch 200 UNIT/ML 200 UNIT/ML 200 UNIT/ML Eliquis 5 Eliquis 5 No BID Eliquis 5 MG MG MG Carvedilol Carvedilol No Carvedilol 6.25 MG 6.25 MG 6.25 MG Eliquis 5 Eliquis 5 No Eliquis 5 mg 5 mg mg 5 mg mg 5 mg Trulicity Trulicity No Trulicity 0.75 0.75 0.75 MG/0.5ML MG/0.5ML MG/0.5ML Carvedilol Carvedilol No 1{table BID Carvedilol 12.5 MG 12.5 MG t_with_ 12.5 MG food} NovoFine NovoFine No QD NovoFine Plus 32G X Plus 32G X Plus 32G X 4 MM 4 MM 4 MM Glucometer Glucometer No Glucometer n/s n/s n/s Nitroglycer Nitroglycer No Nitroglyce in 0.4 MG in 0.4 MG rin 0.4 MG Magnesium Magnesium No 1{table BID Magnesium Oxide 400 Oxide 400 t_as_ne Oxide 400 MG MG eded} MG Lokelma 5 Lokelma 5 No Lokelma 5 GM GM GM Immunizations Ordered Immunization Filled Immunization Date Status Commen ts Source Name Name [facility]2021-08-03 [facility]2021-08-03 Com[facility] [id number] 2021-08-03 Com[facility]:00 [facility] FLUZONE HIGH DOSE FLUZONE HIGH DOSE 2021-06-17 [facility] - OVER [facility] OVER 65 09:06:00 [facility] FLUZONE HIGH DOSE FLUZONE HIGH DOSE 2021-06-17 Completed [facility] - OVER 65 OVER 65 09:06:00 [facility] FLUZONE HIGH DOSE FLUZONE HIGH DOSE 2021-06-17 Completed [facility] - OVER 65 OVER 65 09:06:00 [facility] FLUZONE HIGH DOSE FLUZONE HIGH DOSE 2021-06-17 Completed [facility] - OVER 65 OVER 65 09:06:00 [facility] FLUZONE HIGH DOSE FLUZONE HIGH DOSE 2021-06-17 Completed [facility] - OVER 65 OVER 65 09:06:00 [facility] FLUZONE HIGH DOSE FLUZONE HIGH DOSE 2021-06-17 Completed [facility] - OVER 65 OVER 65 09:06:00 [facility] FLUZONE HIGH DOSE FLUZONE HIGH DOSE 2021-06-17 Completed [facility] - OVER 65 OVER 65 09:06:00 [facility] FLUZONE QUAD 2021-05-26 [facility] FLUZONE QUAD 2021-05-26 [facility] FLUZONE QUAD 2021-05-26 [facility] Moderna COVID-19 Moderna COVID-19 2021-01-15 [facility] 09:07:00 [facility] Moderna COVID-19 Moderna COVID-19 2021-01-15 Com[facility] 09:07:00 [facility] Moderna COVID-19 Moderna COVID-19 2021-01-15 Com[facility] 09:07:00 [facility] Moderna COVID-19 Moderna COVID-19 2021-01-15 Completed [facility] 09:07:00 [facility] Moderna COVID-19 Moderna COVID-19 2021-01-15 Completed [facility] Vacc[facility] 09:07:00 [facility] Moderna COVID-19 Moderna COVID-19 2021-01-15 Completed [facility] Vacc[facility] 09:07:00 [facility] Moderna COVID-19 Moderna COVID-19 2021-01-15 Com[facility] 09:07:00 [facility] MODERNA COVID-19 2021-01-15 Completed [facility]:00:00 [facility] MODERNA COVID-19 2021-01-15 Completed [facility]:00 Hospital MODERNA COVID-19 2021-01-15 Com[facility]:00:00 [facility] Moderna COVID-19 Moderna COVID-19 2020-12-16 Completed [facility] 09:07:00 [facility] Moderna COVID-19 Moderna COVID-19 2020-12-16 Completed [facility] Vaccine Vaccine 09:07:00 [facility] Moderna COVID-19 Moderna COVID-19 2020-12-16 Completed [facility] Vaccine Vaccine 09:07:00 [facility] Moderna COVID-19 Moderna COVID-19 2020-12-16 Completed [facility] Vaccine 09:07:00 [facility] Moderna COVID-19 Moderna COVID-19 2020-12-16 Completed [facility]ine Vaccine 09:07:00 [facility] Moderna COVID-19 Moderna COVID-19 2020-12-16 Completed [facility] Vaccine Vaccine 09:07:00 [facility] Moderna COVID-19 Moderna COVID-19 2020-12-16 Completed [facility] Vaccine Vaccine 09:07:00 [facility] MODERNA COVID-19 2020-12-16 Completed [facility]:00:00 [facility] MODERNA COVID-19 2020-12-16 Completed [facility] 00:00:00 [facility] MODERNA COVID-19 2020-12-16 Completed [facility]:00 [facility] Covid-19 Moderna 2020-12-04 [facility]00 Vacc[facility] Covid-19 Moderna 2020-12-04 [facility]:00 Vaccination Covid-19 Moderna 2020-12-04 [facility]:00 Vaccination Covid-19 [facility] 2020-12-04 [facility] 00:00:00 Vaccination Covid-19 [facility] 2020-12-04 [facility]:00 Vaccination [facility] COVID-19 2020-10-26 Completed [facility] 00:00:00 [facility] COVID-19 2020-10-26 Completed [facility] 00:00:00 [facility] COVID-19 2020-10-26 Completed [facility] 00:00:00 [facility] Covid-19 [facility] 2020-10-26 [facility]:00 Vaccination Covid-19 [facility] 2020-10-26 [facility]:00 Vaccination Covid-19 [facility] 2020-10-26 [facility] 00:[facility]:00 Vaccination Covid-19 [facility] 2020-10-26 [facility]:00 Vaccination Covid-19 [facility] 2020-10-26 [facility]:00 Vaccination [facility] COVID-19 2020-09-29 Completed [facility] 00:00:00 [facility] COVID19 2020-09-29 Completed [facility] 00:00:00 [facility] COVID-19 2020-09-29 Completed [facility] 00[facility]00:00 [facility] Covid-19 Wes 2020-09-29 [facility]:00 Vaccination Covid-19 Wes 2020-09-29 [facility] 00:[facility]:00 Vaccination Covid-19 [facility] 2020-09-29 [facility] 00:00:00 Vaccination Covid-19 [facility] 2020-09-29 [facility] 00:00:00 Vaccination Covid-19 [facility] 2020-09-29 [facility]:00 Vaccination FLUCELVAX QUAD PF 2020-06-[address] [facility] FLUCELVAX QUAD PF 2020-06-[address] [facility] FLUCELVAX QUAD PF 2020-06-[address] [facility] FluAD FluAD 2019-06-12 Completed [facility] - 17:01:00 [facility] FluAD FluAD 2019-06-12 Completed [facility] - 17:01:00 [facility] FluAD FluAD 2019-06-12 Completed [facility] - 17:01:00 [facility] FluAD FluAD 2019-06-12 Completed [facility] - 17:01:00 [facility] FluAD FluAD 2019-06-12 Completed [facility] - 17:01:00 [facility] FluAD FluAD 2019-06-12 Completed [facility] - 17:01:00 [facility] FluAD FluAD 2019-06-12 Completed [facility] - 17:01:00 [facility] FluAD FluAD 2019-06-12 Completed [facility] - 17:01:00 [facility] FluAD FluAD 2019-06-12 Completed [facility] - 17:01:00 [facility] FluAD FluAD 2019-06-12 Completed [facility] - 17:01:00 [facility] FluAD FluAD 2019-06-12 Completed [facility] - 17:01:00 [facility] FluAD FluAD 2019-06-12 Completed [facility] - 17:01:00 [facility] FluAD FluAD 2019-06-12 Completed [facility] - 17:01:00 [facility] FLUAD PF 2019-06-12 [facility] FLUAD PF 2019-06-12 [facility] FluAD FluAD 2019-06-12 Completed [facility] 00:00:00 [facility] FLUAD PF 2019-06-12 Completed [facility] FLUCELVAX QUAD PF 2018-05-[address] [facility] FLUCELVAX QUAD PF 2018-05-[address] [facility] Hospital FLUCELVAX QUAD PF 2018-05-[address] [...] Health injectable, MDCK, 00:00:00 preservative free, quadrivalent Influenza TIV (IM) 2017-07-[address] [facility] 00:00:00 [facility] Influenza (IM) 2017-07-05 [facility] ([facility] 2017-07-05 Com[facility] Preservative [facility] 00:00:00 [facility] Influenza TIV (IM) 2017-07-[address] [facility] 00:00:00 [facility] Influenza (IM) 2017-07-05 Completed [facility] Preservative Free 00:00:00 [facility]osp[facility] Influenza, seasonal, [...] Name Observation Time Observation Value Comments Source height 2022-02-28 08:00:00 64.00 [in_i] [facility] weight 2022-02-28 08:00:00 194.0 [lb_av] [facility] temperature 2022-02-28 08:00:00 97.6 [degF] [facility] bmi 2022-02-28 08:00:00 33.3 kg/m2 [facility] oximetry 2022-02-28 08:00:00 98 % [facility] respiratory rate 2022-02-28 08:00:00 16 /min [facility] blood pressure 2022-02-28 08:00:00 139 mm[Hg] [facility] - systolic [facility] blood pressure 2022-02-28 08:00:00 70 mm[Hg] [facility] - diastolic [facility] height 2022-02-28 08:00:00 64.00 [in_i] [facility] weight 2022-02-28 08:00:00 194.0 [lb_av] [facility] temperature 2022-02-28 08:00:00 97.6 [degF] [facility] bmi 2022-02-28 08:00:00 33.30 kg/m2 [facility] oximetry 2022-02-28 08:00:00 98 % [facility] respiratory rate 2022-02-28 08:00:00 16 /min [facility] blood pressure 2022-02-28 08:00:00 139 mm[Hg] [facility] - systolic [facility] blood pressure 2022-02-28 08:00:00 70 mm[Hg] [facility] - diastolic [facility] height 2021-10-27 14:20:00 64.00 [in_i] [facility] weight 2021-10-27 14:20:00 194.4 [lb_av] [facility] temperature 2021-10-27 14:20:00 97.3 [degF] [facility] bmi 2021-10-27 14:20:00 33.37 kg/m2 [facility] oximetry 2021-10-27 14:20:00 97 % [facility] rate 2021-10-27 14:20:00 16 /min [facility] blood pressure 2021-10-27 14:20:00 133 mm[Hg] [facility] systolic [facility] blood pressure 2021-10-27 14:20:00 67 mm[Hg] [facility] diastolic [facility] height 2021-08-30 08:00:00 64.00 [in_i] [facility] weight 2021-08-30 08:00:00 193 [lb_av] [facility] temperature 2021-08-30 08:00:00 97.1 [degF] [facility] bmi 2021-08-30 08:00:00 33.12 kg/m2 [facility] oximetry 2021-08-30 08:00:00 99 % [facility] blood pressure 2021-08-30 08:00:00 109 mm[Hg] [facility] systolic [facility] blood pressure 2021-08-30 08:00:00 54 mm[Hg] [facility] height 2021-08-30 08:40:00 64.00 [in_i] [facility] weight 2021-08-30 08:40:00 193 [lb_av] [facility] temperature 2021-08-30 08:40:00 97.1 [degF] [facility] bmi 2021-08-30 08:40:00 33.12 kg/m2 [facility] oximetry 2021-08-30 08:40:00 99 % [facility] blood pressure 2021-08-30 08:40:00 109 mm[Hg] [facility] systolic [facility] blood pressure 2021-08-30 08:40:00 54 mm[Hg] [facility] height 2021-06-06 08:20:00 64.00 [in_i] [facility] weight 2021-06-06 08:20:00 192.8 [lb_av] [facility] temperature 2021-06-06 08:20:00 95.1 [degF] [facility] bmi 2021-06-06 08:20:00 33.09 kg/m2 [facility] oximetry 2021-06-06 08:20:00 95 % [facility] blood pressure 2021-06-06 08:20:00 113 mm[Hg] [facility] - systolic [facility] blood pressure 2021-06-06 08:20:00 56 mm[Hg] [facility] - diastolic [facility] height 2021-05-03 08:00:00 64.00 [in_i] [facility] weight 2021-05-03 08:00:00 191.6 [lb_av] [facility] temperature 2021-05-03 08:00:00 97.3 [degF] [facility] bmi 2021-05-03 08:00:00 32.88 kg/m2 [facility] oximetry 2021-05-03 08:00:00 99 % [facility] respiratory rate 2021-05-03 08:00:00 15 /min [facility] blood pressure 2021-05-03 08:00:00 127 mm[Hg] [facility] systolic [facility] blood pressure 2021-05-03 08:00:00 59 mm[Hg] [facility] - diastolic [facility] Systolic blood 2022-07-12 19:35:00 132 mm[Hg] [facility] pressure Diastolic blood 2022-07-12 19:35:00 76 mm[Hg] [facility] pressure Heart rate 2022-07-12 19:35:00 81 /min [facility] Body height 2022-07-12 19:35:00 162.6 cm [facility] Body weight 2022-07-12 19:35:00 86.456 kg [facility] BMI 2022-07-12 19:35:00 32.72 kg/m2 [facility] Oxygen saturation in 2022-07-12 19:35:00 100 /min [facility] Arterial blood by Pulse oximetry Systolic blood 2022-06-14 13:59:00 121 mm[Hg] [facility] Diastolic blood 2022-06-14 13:59:00 72 mm[facility]Hg[facility] pressure Heart rate 2022-06-14 13:59:00 70 /min [facility] Body height 2022-06-14 13:59:00 162.6 cm [facility] Body weight 2022-06-14 13:59:00 86.183 kg [facility] BMI 2022-06-14 13:59:00 32.61 kg/m2 [facility] Oxygen saturation in 2022-06-14 13:59:00 98 /min [facility] Arterial blood by Pulse oximetry Body temperature 2022-06-14 13:59:00 36.67 Roberta [facility] Systolic blood 2022-04-27 20:51:00 128 mm[Hg] [facility] Diastolic blood 2022-04-27 20:51:00 61 mm[Hg] [facility] pressure Heart rate 2022-04-27 20:51:00 63 /min [facility] Body temperature 2022-04-27 20:51:00 36.5 Roberta [facility] Respiratory rate 2022-04-27 20:51:00 15 /min [facility] Oxygen saturation in 2022-04-27 20:30:00 97 /min [facility] Arterial blood by Pulse oximetry Body height 2022-04-27 13:26:00 162.6 cm [facility] Body weight 2022-04-27 13:26:00 87.7 kg [facility] BMI 2022-04-27 13:26:00 33.19 kg/m2 [facility] Systolic blood 2020-10-07 10:03:00 119 mm[Hg] [facility] pressure Diastolic blood 2020-10-07 10:03:00 63 mm[Hg] [facility] Heart Rate 2020-10-07 10:03:00 95 /min [facility] Procedure Date / Time Performing Clinician Source Performed BASIC METABOLIC PANEL 2022-07-12 20:58:00 [facility] BASIC METABOLIC PANEL 2022-07-06 12:04:00 [facility] CBC WITH PLATELET AND 2022-07-06 12:04:00 [facility] DIFFERENTIAL DIGOXIN LEVEL 2022-07-06 12:04:00 [facility] NT-PROBNP 2022-07-06 12:04:00 [facility] PV PHYSIOLOGIC ARTERIAL 2022-06-14 13:22:29 [facility] LOWER EXTREMITY COMPLETE Raj POC GLUCOSE 2022-04-27 21:28:00 [facility] Raj POC GLUCOSE 2022-04-27 19:25:00 [facility] Arj ACTIVATED CLOTTING TIME 2022-04-27 18:22:00 [facility] Raj POC ARTERIAL BLOOD GAS, 2022-04-27 18:09:00 [facility] CORRECTED AND LYTES Raj ACTIVATED CLOTTING TIME 2022-04-27 17:44:00 [facility] Raj ARTERIAL LINE 2022-04-27 17:26:44 [facility] SC AN ELECTIVE 2022-04-27 16:55:00 Angely Naidu [facility] ENDOTRACHEAL AIRWAY AORTOGRAPHY, POSSIBLE 2022-04-27 16:45:00 [facility] ANGIOPLASTY Raj POTASSIUM, SYRINGE 2022-04-27 13:30:00 [facility] Raj SODIUM LEVEL, SYRINGE 2022-04-27 13:30:00 [facility] Raj HEMOGLOBIN, SYRINGE 2022-04-27 13:30:00 [facility] Raj GLUCOSE LEVEL, SYRINGE 2022-04-27 13:30:00 [facility] Raj TYPE AND SCREEN 2022-04-24 13:48:00 [facility] PARTIAL THROMBOPLASTIN 2022-04-24 13:48:00 [facility] TIME (PTT) Raj PROTHROMBIN TIME WITH INR 2022-04-24 13:48:00 [facility] Raj BASIC METABOLIC PANEL 2022-04-24 13:48:00 [facility] Raj HC COMPLETE BLD COUNT 2022-04-24 13:48:00 [facility] W/AUTO DIFF Raj ESTIMATED GFR 2022-04-24 13:48:00 [facility] Raj CV MRA ABDOMEN PELVIS W 2022-03-28 18:09:46 [facility] WO CONTRAST Raj ESTIMATED GFR 2022-03-28 17:19:00 [facility] Raj POC PANEL 2022-03-28 17:19:00 [facility] Raj BASIC METABOLIC PANEL 2022-03-21 16:03:00 [facility] FERRITIN LEVEL 2022-03-15 16:08:00 [facility] Raj TOTAL IRON BINDING 2022-03-15 16:08:00 [facility] CAPACITY Raj CREATININE LEVEL 2022-03-15 16:08:00 [facility] Raj BUN LEVEL 2022-03-15 16:08:00 [facility] Raj BASIC METABOLIC PANEL 2022-03-14 12:04:00 [facility] ECG 12-LEAD 2022-03-08 18:11:51 [facility] Ho spital BASIC METABOLIC PANEL 2022-03-02 12:14:00 [facility] CBC WITH PLATELET AND 2022-03-02 12:14:00 [facility] DIFFERENTIAL B NATRIURETIC PEPTIDE 2022-03-02 12:14:00 [facility] US ANKLE BRACHIAL INDEX 2021-10-13 16:45:00 [facility] US CAROTID DUPLEX 2021-10-13 16:00:00 [facility] BILATERAL TTE COMPLETE, W CONTRAST, 2021-10-13 13:43:40 [facility] W DOPPLER ([id number]) ECG 12-LEAD 2021-09-21 20:08:11 [facility] spital BASIC METABOLIC PANEL 2021-09-15 13:02:00 [facility] DIGOXIN LEVEL 2021-09-15 13:02:00 [facility] spital CBC WITH PLATELET AND 2021-09-15 13:02:00 [facility] DIFFERENTIAL NT-PROBNP 2021-09-15 13:02:00 [facility] spital BASIC METABOLIC PANEL 2021-06-22 12:02:00 [facility] NT-PROBNP 2021-06-22 12:02:00 [facility] spital [[facility]] Ortho - Surgery 2020-12-30 00:00:00 [facility] Scheduling [MMD] XRAY Chest 2 Views 2020-11-17 00:00:00 [facility] XRAY Chest 2 views [id number] 2020-11-17 00:00:00 [facility] MR Shoulder wo contrast 2020-10-07 00:00:00 [facility] 11061 Plan of Care Planned Activity Planned Date Details Comments Source Future Scheduled 2022-07-13 HEPATITIS B VACCINES Met [facility] Test 02:34:05 (1 of 3 - 3-dose series) [code = HEPATITIS B VACCINES (1 of 3 - 3-dose series)] Future Scheduled 2022-07-13 65+ PNEUMOCOCCAL [facility] Test 02:34:05 VACCINE (1 - PCV) [code = 65+ PNEUMOCOCCAL VACCINE (1 - PCV)] Future Scheduled 2022-07-13 DIABETIC FOOT EXAM [facility] Test 02:34:05 [code = DIABETIC FOOT EXAM] Future Scheduled 2022-07-13 SHINGLES VACCINES (1 Met [facility] Test 02:34:05 of 2) [code = SHINGLES VACCINES (1 of 2)] Future Scheduled 2022-07-[address] [facility] Test 02:34:05 [code = COLONOSCOPY SCREENING] Future Scheduled 2022-07-13 Screening for [facility] Test 02:34:05 malignant neoplasm of lung (procedure) [code = 504450736] Future Scheduled 2022-07-13 DIABETES: RETINAL EYE [facility] Test 02:34:05 EXAM [code = DIABETES: RETINAL EYE EXAM] Future Scheduled 2022-06-25 HEPATITIS B VACCINES Met [facility] Test 05:51:12 (1 of 3 - 3-dose series) [code = HEPATITIS B VACCINES (1 of 3 - 3-dose series)] Future Scheduled 2022-06-25 65+ [facility] 05:51:12 VACCINE (1 - PCV) [code = 65+ PNEUMOCOCCAL VACCINE (1 - PCV)] Future Scheduled 2022-06-25 DIABETIC FOOT EXAM [facility] Test 05:51:12 [code = DIABETIC FOOT EXAM] Future Scheduled 2022-06-25 SHINGLES VACCINES (1 Met [facility] Test 05:51:12 of 2) [code = SHINGLES VACCINES (1 of 2)] Future Scheduled 2022-06-[address] [facility] Test 05:51:12 [code = COLONOSCOPY SCREENING] Future Scheduled 2022-06-25 Screening for [facility] Test 05:51:12 malignant neoplasm of lung (procedure) [code = 818991440] Future Scheduled 2022-06-25 INFLUENZA VACCINE Method [facility] Test 05:51:12 [code = INFLUENZA VACCINE] Future Scheduled 2022-06-25 DIABETES: RETINAL EYE [facility] Test 05:51:12 EXAM [code = DIABETES: RETINAL EYE EXAM] Future Scheduled 2022-05-29 HEPATITIS B VACCINES Met [facility] Test 07:14:33 (1 of 3 - 3-dose series) [code = HEPATITIS B VACCINES (1 of 3 - 3-dose series)] Future Scheduled 2022-05-29 65+ [facility]AL [facility] 07:14:33 VACCINE (1 - PCV) [code = 65+ PNEUMOCOCCAL VACCINE (1 - PCV)] Future Scheduled 2022-05-29 DIABETIC FOOT EXAM [facility] Test 07:14:33 [code = DIABETIC FOOT EXAM] Future Scheduled 2022-05-29 SHINGLES VACCINES (1 Met [facility] Test 07:14:33 of 2) [code = SHINGLES VACCINES (1 of 2)] Future Scheduled 2022-05-[address] [facility] Test 07:14:33 [code = COLONOSCOPY SCREENING] Future Scheduled 2022-05-29 Screening for [facility] Test 07:14:33 malignant neoplasm of lung (procedure) [code = 847129593] Future Scheduled 2022-05-29 INFLUENZA VACCINE [facility] Test 07:14:33 [code = INFLUENZA VACCINE] Future Scheduled 2022-05-29 DIABETES: RETINAL EYE [facility] Test 07:14:33 EXAM [code = DIABETES: RETINAL EYE EXAM] Diagnostic Test 2020-12-30 [[facility]] [facility]o - Surgery [facility] Pending 00:00:00 Scheduling [code = [[facility]] Ortho - Surgery Scheduling] Diagnostic Test 2020-10-07 MR Shoulder [facility] 00:[facility]:00 contrast 63687 [code = 03378] Diagnostic Test 2020-10-07 MR Shoulder [facility] 00:00:00 contrast 06746 [code = 08621] Encounters Start End Encounter Admission Attending Care Care Encounter Source Date/Time Date/Time Type Type Clinicians Facility Department ID 2022-07-13 Preadmit nullFlavo [facility] [id number] Nm moria 08:37:23 casey Steward 2022-02-24 Outpatient Guzman, Na [facility] [id number] 2 Common 10:00:[id number] [facility] 2021-10-12 Outpatient Guzman, Na [facility] [id number] 2 Common 14:23:[id number] [facility] 2021-10-12 Outpatient Guzman, Na [facility] [id number] 2 Common 13:26:[id number] [facility] 2021-10-12 Outpatient Guzman, Na [facility] [id number] 2 Common 13:26:[id number] [facility] 2021-10-12 Outpatient Guzman, Na [facility] [id number] 2 Common 12:49:[id number] [facility] 2021-10-12 Outpatient Guzman, Na [facility] [id number] 2 Common 12:43:[id number] [facility] 2021-10-12 Outpatient Guzman, Na [facility] [id number] 2 Common 12:18:[id number] [facility] 2021-10-12 Outpatient Guzman, Na [facility] [id number] 2 Common 11:46:[id number] [facility] 2021-10-12 Outpatient Guzman, Na [facility] [id number] 2 Common 11:29:[id number] [facility] 2021-10-12 Outpatient Guzman, Na [facility] [id number] 2 Common 11:29:[id number] [facility] 2021-10-12 Outpatient Guzman, Na [facility] [id number] 2 Common 11:27:[id number] [facility] 2021-05-11 Preadmit nullFlavo [facility] [id number] Nm moria 14:32:37 casey Steward 2021-03-04 Outpatient MANJARREZ, [facility] [id number] [place] 09:15:15 [facility] 2021-02-20 Outpatient MANJARREZ, [facility] [id number] [place] 01:03:31 [facility] 2021-02-02 Outpatient TY, [facility] [id number] [place] 13:56:34 NICHOLETTE Heal 2021-02-02 Outpatient [facility] [id number] [place] 13:55:48 [facility] 2021-01-26 Outpatient [facility] [id number] [place] 10:48:01 [facility] 2021-01-22 Outpatient MANJARREZ, [facility] [id number] [place] 04:11:18 [facility] 2022-07-12 2022-07-12 Arlette Dominguez, 1.2.840.1 [id number] Tony 16:30:00 16:35:[address] 3.430.2.7 Hospit a .3.128203 l .8 2022-07-12 2022-07-12 Office Angelica, 1.2.840.1 [id number] 74940 45115 Methodi 14:40:00 15:48:54 Visit Imad 35305.1.[address] 3.430.2.7 Hospit a .3.609979 l .8 2022-07-12 2022-07-12 Outpatient [facility] [id number] 0586 [place] 00:00:00 00:00:00 IMAD [address] 2022-07-12 2022-07-12 Travel 1.2.840.1 1.2.953.603 2947 520386 Methodi 00:00:00 00:00:[address] 3.430.2.7 0.2.7.3.698 Ho spita .3.595950 084.8 l .8 2022-07-12 2022-07-12 Refill Angelica, 1.2.840.1 [id number] 45900 85875 Methodi 00:00:00 00:00:[address] 3.430.2.7 Hospit a .3.636214 l .8 2022-07-12 2022-07-12 Outpatient [facility] [id number] [place] 00:00:00 00:00:00 IMAD [address] 2022-06-25 2022-06-25 Refill Angelica, 1.2.840.1 [id number] 31622 14236 Methodi 00:00:00 00:00:[address] 3.430.2.7 Hospit a .3.027142 l .8 2022-06-25 2022-06-25 Refill Angelica, 1.2.840.1 [id number] 42238 10437 Methodi 00:00:00 00:00:[address] 3.430.2.7 Hospit a .3.196609 l .8 2022-06-14 2022-06-14 Office [facility], 1.2.840.1 [id number] 037266 7689 Methodi 09:20:00 09:37:21 Visit Alba 53518.1.1 344 s t Raj 3.430.2.7 Hospi ta .3.331661 l .8 2022-06-14 2022-06-14 Office [facility], 1.2.840.1 [id number] 696406 3064 Methodi 09:20:00 09:37:21 Visit Alba 54103.1.1 344 s t Raj 3.430.2.7 Hospi ta .3.525680 l .8 2022-06-14 2022-06-14 Travel 1.2.840.1 1.2.344.400 0128 556039 Methodi 00:00:00 00:00:[address] 3.430.2.7 0.2.7.3.698 Ho spita .3.169325 084.8 l .8 2022-06-14 2022-06-14 [facility] [id number] [place] 00:00:00 00:00:00 ALBA [address] 2022-06-14 2022-06-14 Travel 1.2.840.1 1.2.025.548 0837 335869 Methodi 00:00:00 00:00:[address] 3.430.2.7 0.2.7.3.698 Ho spita .3.067354 084.8 l .8 2022-06-07 2022-06-07 Orders Peng, 1.2.840.1 [id number] 627781 0214 Methodi 00:00:00 00:00:00 Only Jasiel 43034.1.[address] 3.430.2.7 Hospit a .3.615637 l .8 2022-06-07 2022-06-07 Orders Peng, 1.2.840.1 [id number] 976350 6422 Methodi 00:00:00 00:00:00 Only Stephaniequle 22082.1.[address] 3.430.2.7 Hospit a .3.539880 l .8 2022-05-01 2022-05-01 Telephone [place] 1.2.840.1 [id number] Methodi 00:00:00 00:00:00 , Val 13683.1.[address] 3.430.2.7 Hospit a .3.894795 l .8 2022-05-01 2022-05-01 Telephone [place] 1.2.840.1 [id number] Methodi 00:00:00 00:00:00 , Val 64974.1.[address] 3.430.2.7 Hospit a .3.962654 l .8 2022-04-27 2022-04-27 [facility], 1.2.840.1 [id number] 32808 73105 Methodi 07:22:00 18:18:00 Encounter Yarelitta 00510.1.[address] Raj 3.430.2.7 Hospi ta .3.580302 l .8 2022-04-27 2022-04-27 [facility], 1.2.840.1 [id number] 25762 69071 Methodi 07:22:00 18:18:00 Encounter Charfideltta 68518.1.[address] Raj 3.430.2.7 Hospi ta .3.319359 l .8 2022-04-27 2022-04-27 Anesthesia NaiduAngely berman 1.2.840.1 [id number] Methodi 11:45:00 14:05:00 Event Irma Santacruz 41186.1.[address] 3.430.2.7 Hospit a .3.654746 l .8 2022-04-27 2022-04-27 Anesthesia Angely Naidu 1.2.840.1 [id number] Methodi 11:45:00 14:05:00 Event Irma Santacruz 15864.1.[address] 3.430.2.7 Hospit a .3.365287 l .8 2022-04-27 2022-04-27 Surgery [facility], 1.2.840.1 [id number] 327427 9097 Methodi 11:00:00 13:35:00 Charudatta 91839.1.1 991 s t Raj 3.430.2.7 Hospi ta .3.736440 l .8 2022-04-27 2022-04-27 Surgery [facility], 1.2.840.1 [id number] 062656 7366 Methodi 11:00:00 13:35:00 Charudatta 74290.1.1 991 s t Raj 3.430.2.7 Hospi ta .3.361534 l .8 2022-04-27 2022-04-27 Travel 1.2.840.1 1.2.035.896 5430 685367 Methodi 00:00:00 00:00:[address] 3.430.2.7 0.2.7.3.698 Ho spita .3.648681 084.8 l .8 2022-04-27 2022-04-27 Travel 1.2.840.1 1.2.769.520 7001 395407 Methodi 00:00:00 00:00:[address] 3.430.2.7 0.2.7.3.698 Ho spita .3.903599 084.8 l .8 2022-04-24 2022-04-24 Pre-Admiss [facility], 1.2.840.1 [id number] 323 [id number] Methodi 08:10:00 09:10:00 ion Blacka 55297.1.1 741 s t Testing Raj 3.430.2.7 Hospi ta .3.599892 l .8 2022-04-24 2022-04-24 Pre-Admiss [facility], 1.2.840.1 [id number] 044 0000659 Methodi 08:10:00 09:10:00 ion Alba 48177.1.1 741 s t Testing Raj 3.430.2.7 Hospi ta .3.274772 l .8 2022-04-24 2022-04-24 Travel 1.2.840.1 1.2.543.922 5648 829017 Methodi 00:00:00 00:00:[address] 3.430.2.7 0.2.7.3.698 Ho spita .3.131129 084.8 l .8 2022-04-24 2022-04-24 Travel 1.2.840.1 1.2.171.822 7242 997537 Methodi 00:00:00 00:00:[address] 3.430.2.7 0.2.7.3.698 Ho spita .3.591259 084.8 l .8 2022-04-15 2022-04-15 Refill Angelica, 1.2.840.1 [id number] 82365 Methodi 00:00:00 00:00:[address] 3.430.2.7 Hospit a .3.775441 l .8 2022-04-15 2022-04-15 Refill Angelica, 1.2.840.1 [id number] 48467 Methodi 00:00:00 00:00:[address] 3.430.2.7 Hospit a .3.638569 l .8 2022-04-11 2022-04-11 Prep for Deysi, 1.2.840.1 [id number] 23010523 Methodi 00:00:00 00:00:00 Surgery Melba 13054.1.[address] 3.430.2.7 Hospit a .3.156013 l .8 2022-04-11 2022-04-11 Prep for [place], 1.2.840.1 [id number] [id number] Methodi 00:00:00 00:00:00 Surgery Melba 61770.1.[address] 3.430.2.7 Hospit a .3.834186 l .8 2022-04-10 2022-04-10 Telephone Deysi, 1.2.840.1 [id number] 2 [id number] Methodi 00:00:00 00:00:[address] 3.430.2.7 Hospit a .3.682677 l .8 2022-04-10 2022-04-10 Telephone Deysi, 1.2.840.1 [id number] 2 [id number] Methodi 00:00:00 00:00:[address] 3.430.2.7 Hospit a .3.012215 l .8 2022-03-28 2022-03-28 [facility], 1.2.840.1 [id number] 2 [id number] Methodi 12:26:46 23:59:00 Encounter Kinan 99606.1.[address] Sebas 3.430.2.7 Hospit a .3.664163 l .8 2022-03-28 2022-03-28 [facility], 1.2.840.1 [id number] 2 [id number] Methodi 12:26:46 23:59:00 Encounter Kinan 08647.1.[address] Sebas 3.430.2.7 Hospit a .3.493071 l .8 2022-03-28 2022-03-28 [facility], 1.2.840.1 [id number] 2 [id number] Methodi 12:15:00 12:25:00 Encounter Kinan 33553.1.[address] Sebas 3.430.2.7 Hospit a .3.668714 l .8 2022-03-28 2022-03-28 [facility], 1.2.840.1 [id number] 2 [id number] Methodi 12:15:00 12:25:00 Encounter Kinan 99648.1.[address] Sebas 3.430.2.7 Hospit a .3.064900 l .8 2022-03-28 2022-03-28 [facility], 1.2.840.1 [id number] 31691 Methodi 11:23:57 12:14:00 Encounter Charudatta 44720.1.[address] Raj 3.430.2.7 Hospi ta .3.084838 l .8 2022-03-28 2022-03-28 [facility], 1.2.840.1 [id number] 53670 Methodi 11:23:57 12:14:00 Encounter Charudatta 16340.1.[address] Raj 3.430.2.7 Hospi ta .3.192236 l .8 2022-03-28 2022-03-28 Travel 1.2.840.1 1.2.714.420 1071 223906 Methodi 00:00:00 00:00:[address] 3.430.2.7 0.2.7.3.698 Ho spita .3.847054 084.8 l .8 2022-03-28 2022-03-28 Travel 1.2.840.1 1.2.460.687 3172 419790 Methodi 00:00:00 00:00:[address] 3.430.2.7 0.2.7.3.698 Ho spita .3.774393 084.8 l .8 2022-03-24 2022-03-24 [facility], 1.2.840.1 [id number] 2099 792724 Methodi 00:00:00 00:00:00 Charudatta 85742.1.1 140 s t Raj 3.430.2.7 Hospi ta .3.038592 l .8 2022-03-24 2022-03-24 [facility], 1.2.840.1 [id number] 2099 789607 Methodi 00:00:00 00:00:00 Charudatta 94786.1.1 140 s t Raj 3.430.2.7 Hospi ta .3.739559 l .8 2022-03-22 2022-03-22 Telephone [place], 1.2.840.1 [id number] 2 [id number] Methodi 00:00:00 00:00:[address] 3.430.2.7 Hospit a .3.145785 l .8 2022-03-22 2022-03-22 Telephone [place]ammar[place], 1.2.840.1 [id number] 2 [id number] Methodi 00:00:00 00:00:[address] 3.430.2.7 Hospit a .3.784855 l .8 2022-03-21 2022-03-21 Telephone [place]ammar[place], 1.2.840.1 [id number] 2 [id number] Methodi 00:00:00 00:00:[address] 3.430.2.7 Hospit a .3.092693 l .8 2022-03-21 2022-03-21 Telephone [place], 1.2.840.1 [id number] 2 [id number] Methodi 00:00:00 00:00:[address] 3.430.2.7 Hospit a .3.200336 l .8 2022-03-17 2022-03-17 Telephone [place], 1.2.840.1 [id number] 2 [id number] Methodi 00:00:00 00:00:[address] 3.430.2.7 Hospit a .3.697971 l .8 2022-03-17 2022-03-17 Telephone [place], 1.2.840.1 [id number] 2 [id number] Methodi 00:00:00 00:00:[address] 3.430.2.7 Hospit a .3.808877 l .8 2022-03-15 2022-03-15 [facility], 1.2.840.1 [id number] 685028 3336 Methodi 09:50:00 14:07:55 Visit Charudatta 66872.1.1 676 s t Raj 3.430.2.7 Hospi ta .3.852534 l .8 2022-03-15 2022-03-15 [facility], 1.2.840.1 [id number] 426486 0388 Methodi 09:50:00 14:07:55 Visit Charudatta 72033.1.1 676 s t Raj 3.430.2.7 Hospi ta .3.711338 l .8 2022-03-15 2022-03-15 Lab [facility], 1.2.840.1 [id number] 753947 0426 Methodi 11:45:00 11:50:00 Charudatta 16278.1.1 997 s t Raj 3.430.2.7 Hospi ta .3.461342 l .8 2022-03-15 2022-03-15 Lab [facility], 1.2.840.1 [id number] 812346 8613 Methodi 11:45:00 11:50:00 Charudatta 39516.1.1 997 s t Raj 3.430.2.7 Hospi ta .3.946974 l .8 2022-03-15 2022-03-15 Travel 1.2.840.1 1.2.441.416 0201 175128 Methodi 00:00:00 00:00:[address] 3.430.2.7 0.2.7.3.698 Ho spita .3.240884 084.8 l .8 2022-03-15 2022-03-15 Travel 1.2.840.1 1.2.334.657 7363 627538 Methodi 00:00:00 00:00:[address] 3.430.2.7 0.2.7.3.698 Ho spita .3.598206 084.8 l .8 2022-03-09 2022-03-09 (TEL) [facility] [id number] Co mmon 00:00:00 00:00:[address] [facility] 2022-03-08 2022-03-08 Office Angelica, 1.2.840.1 [id number] 80869 05242 Methodi 13:00:00 13:44:41 Visit Imad 30657.1.[address] 3.430.2.7 Hospit a .3.909861 l .8 2022-03-08 2022-03-08 Office Angelica, 1.2.840.1 [id number] 96056 Methodi 13:00:00 13:44:41 Visit Imad 17538.1.[address] 3.430.2.7 Hospit a .3.461909 l .8 2022-03-08 2022-03-08 Telephone Deysi, 1.2.840.1 [id number] 2 [id number] Methodi 00:00:00 00:00:[address] 3.430.2.7 Hospit a .3.594940 l .8 2022-03-08 2022-03-08 Travel 1.2.840.1 1.2.119.598 9391 669469 Methodi 00:00:00 00:00:[address] 3.430.2.7 0.2.7.3.698 Ho spita .3.274821 084.8 l .8 2022-03-08 2022-03-08 Refill Angelica, 1.2.840.1 [id number] 07714 15007 Methodi 00:00:00 00:00:[address] 3.430.2.7 Hospit a .3.973583 l .8 2022-03-08 2022-03-08 Telephone Deysi, 1.2.840.1 [id number] 2 [id number] Methodi 00:00:00 00:00:[address] 3.430.2.7 Hospit a .3.515214 l .8 2022-03-082022-03-08 Travel 1.2.840.1 1.2.975.500 5835 146338 Methodi 00:00:00 00:00:[address] 3.430.2.7 0.2.7.3.698 Ho spita .3.025382 084.8 l .8 2022-03-08 2022-03-08 Refill Angelica, 1.2.840.1 [id number] 11469 30578 Methodi 00:00:00 00:00:[address] 3.430.2.7 Hospit a .3.578940 l .8 2022-03-03 2022-03-03 (TEL) STLMLC STLMLC [id number] Co mmon 00:00:00 00:00:00 Spirit - [facility]I [facility] 2022-02-28 2022-02-28 SUB ANNUAL STLMLC STLMLC [id number] Common 00:00:00 00:00:00 [facility] Spirit WELLNESS - [facility] VISIT [facility] 2022-02-28 2022-02-28 OFFICE STLMLC STLMLC [id number] Co mmon 00:00:00 00:00:00 VISIT EST Spir it PT LEVEL 3 - CHI [facility] 2022-02-25 2022-02-25 Refill Angelica, 1.2.840.1 [id number] 52311 15564 Methodi 00:00:00 00:00:[address] 3.430.2.7 Hospit a .3.730280 l .8 2022-02-25 2022-02-25 Refill Angelica, 1.2.840.1 [id number] 97091 91206 Methodi 00:00:00 00:00:[address] 3.430.2.7 Hospit a .3.712095 l .8 2022-02-03 2022-02-03 Office Suzette, 1.2.840.1 [id number] 760861 5720 Methodi 13:30:00 13:44:02 Visit Sera Allen 69681.1.[address] 3.430.2.7 Hospit a .3.845875 l .8 2022-02-03 2022-02-03 Office Suzette, 1.2.840.1 [id number] 192120 7555 Methodi 13:30:00 13:44:02 Visit Sera Allen 22120.1.[address] 3.430.2.7 Hospit a .3.881050 l .8 2022-01-30 2022-01-30 Refill Angelica, 1.2.840.1 [id number] 81817 51278 Methodi 00:00:00 00:00:[address] 3.430.2.7 Hospit a .3.351271 l .8 2022-01-30 2022-01-30 Refill Angelica, 1.2.840.1 [id number] 64804 59205 Methodi 00:00:00 00:00:[address] 3.430.2.7 Hospit a .3.244407 l .8 2022-01-09 2022-01-09 Refill Angelica, 1.2.840.1 [id number] 82083 43212 Methodi 00:00:00 00:00:[address] 3.430.2.7 Hospit a .3.898247 l .8 2022-01-09 2022-01-09 Refill Angelica, 1.2.840.1 [id number] 67919 52711 Methodi 00:00:00 00:00:[address] 3.430.2.7 Hospit a .3.607413 l .8 2021-12-19 2021-12-19 Telephone Darci 1.2.840.1 [id number] 2100 572366 Methodi 00:00:00 00:00:00 Spenceria D 54742.1.[address] 3.430.2.7 Hospit a .3.337412 l .8 2021-12-19 2021-12-19 Telephone Darci 1.2.840.1 [id number] 2100 050769 Methodi 00:00:00 00:00:00 Spenceria D [address]345.1.[address] 3.430.2.7 Hospit a .3.095299 l .8 2021-11-07 2021-11-07 Orders [place] 1.2.840.1 [id number] Methodi 00:00:00 00:00:00 Only , [place] [address].1.[address] 3.430.2.7 Hospit a .3.665338 l .8 2021-11-07 2021-11-07 Orders [place] 1.2.840.1 [id number] Methodi 00:00:00 00:00:00 Only , [place] [address]409.1.[address] 3.430.2.7 Hospit a .3.183305 l .8 2021-10-31 2021-10-31 Telephone [facility], 1.2.840.1 [id number] 2099 773536 Methodi 00:00:00 00:00:00 Charudatta 94397.1.1 047 s t Raj 3.430.2.7 Hospi ta .3.373300 l .8 2021-10-31 2021-10-31 Telephone [facility], 1.2.840.1 [id number] 2099 647600 Methodi 00:00:00 00:00:00 Charudatta 52279.1.1 047 s t Raj 3.430.2.7 Hospi ta .3.178941 l .8 2021-10-27 2021-10-27 OFFICE STLMLC STLMLC [id number] Co mmon 00:00:00 00:00:00 VISIT Spirit ESTAB PT - CHI LEVEL 2 [facility] 2021-09-21 2021-10-18 Office Angelica, 1.2.840.1 [id number] 74926 56712 Methodi 14:00:00 11:36:09 Visit Imad 97349.1.[address] 3.430.2.7 Hospit a .3.101461 l .8 2021-09-21 2021-10-18 [facility], 1.2.840.1 [id number] 98273 72463 Methodi 14:00:00 11:36:09 Visit Imad 24477.1.[address] 3.430.2.7 Hospit a .3.780972 l .8 2021-10-14 2021-10-14 Orders [facility], 1.2.840.1 [id number] 09936 83418 Methodi 00:00:00 00:00:00 Only Imad 34887.1.[address] 3.430.2.7 Hospit a .3.669998 l .8 2021-10-14 2021-10-14 Orders [facility], 1.2.840.1 [id number] 80273 24393 Methodi 00:00:00 00:00:00 Only Imad 72894.1.[address] 3.430.2.7 Hospit a .3.531217 l .8 2021-10-13 2021-10-13 [facility], 1.2.840.1 [id number] 2099 696169 Methodi 07:51:25 23:59:00 Encounter Imad 86372.1.[address] 3.430.2.7 Hospit a .3.469984 l .8 2021-10-13 2021-10-13 [facility], 1.2.840.1 [id number] 2099 [id number] Methodi 07:51:25 23:59:00 Encounter Imad 17020.1.[address] 3.430.2.7 Hospit a .3.979305 l .8 2021-10-13 2021-10-13 [facility], 1.2.840.1 [id number] 2099 [id number] Methodi 07:51:13 23:59:00 Encounter Imad 71222.1.[address] 3.430.2.7 Hospit a .3.675493 l .8 2021-10-13 2021-10-13 [facility], 1.2.840.1 [id number] 2099 [id number] Methodi 07:51:13 23:59:00 Encounter Imad 16305.1.[address] 3.430.2.7 Hospit a .3.914578 l .8 2021-10-13 2021-10-13 [facility], 1.2.840.1 [id number] 2099 [id number] Methodi 06:46:08 07:50:00 Encounter Imad 03334.1.[address] 3.430.2.7 Hospit a .3.106504 l .8 2021-10-13 2021-10-13 [facility], 1.2.840.1 [id number] 2099 [id number] Methodi 06:46:08 07:50:00 Encounter Imad 10808.1.[address] 3.430.2.7 Hospit a .3.901223 l .8 2021-10-13 2021-10-13 Travel 1.2.840.1 1.2.697.346 9622 [id number] Methodi 00:00:00 00:00:[address] 3.430.2.7 0.2.7.3.698 Ho spita .3.901713 084.8 l .8 2021-10-13 2021-10-13 Travel 1.2.840.1 1.2.720.131 7244 [id number] Methodi 00:00:00 00:00:[address] 3.430.2.7 0.2.7.3.698 Ho spita .3.623705 084.8 l .8 2021-09-23 2021-09-23 Travel 1.2.840.1 1.2.359.849 3526 014379 Methodi 00:00:00 00:00:[address] 3.430.2.7 0.2.7.3.698 Ho spita .3.201739 084.8 l .8 2021-09-23 2021-09-23 Travel 1.2.840.1 1.2.527.740 5587 261553 Methodi 00:00:00 00:00:[address] 3.430.2.7 0.2.7.3.698 Ho spita .3.032275 084.8 l .8 2021-09-21 2021-09-21 Travel 1.2.840.1 1.2.104.225 9235 962435 Methodi 00:00:00 00:00:[address] 3.430.2.7 0.2.7.3.698 Ho spita .3.002396 084.8 l .8 2021-09-21 2021-09-21 Travel 1.2.840.1 1.2.781.218 1089 950946 Methodi 00:00:00 00:00:[address] 3.430.2.7 0.2.7.3.698 Ho spita .3.248986 084.8 l .8 2021-09-05 2021-09-05 Refill Angelica, 1.2.840.1 [id number] 68771 Methodi 00:00:00 00:00:[address] 3.430.2.7 Hospit a .3.056582 l .8 2021-09-05 2021-09-05 Refill Angelica, 1.2.840.1 [id number] Methodi 00:00:00 00:00:[address] 3.430.2.7 Hospit a .3.892409 l .8 2021-08-30 2021-08-30 OFFICE STLMLC STLMLC [id number] Co mmon 00:00:00 00:00:00 VISIT EST Spir it PT LEVEL 3 - CHI [facility] 2021-08-30 2021-08-30 SUB ANNUAL STLMLC STLMLC [id number] Common 00:00:00 00:00:00 MCR Spirit WELLNESS - CHI VISIT [facility] 2021-08-25 2021-08-25 Refill Angelica, 1.2.840.1 [id number] 10847 Methodi 00:00:00 00:00:[address] 3.430.2.7 Hospit a .3.276702 l .8 2021-08-25 2021-08-25 Refill Angelica, 1.2.840.1 [id number] Methodi 00:00:00 00:00:[address] 3.430.2.7 Hospit a .3.850905 l .8 2021-08-04 2021-08-04 Orders Angelica, 1.2.840.1 [id number] Methodi 00:00:00 00:00:00 Only Imad 56351.1.[address] 3.430.2.7 Hospit a .3.584989 l .8 2021-08-04 2021-08-04 Orders Angelica, 1.2.840.1 [id number] 21979 Methodi 00:00:00 00:00:00 Only Imad 91649.1.[address] 3.430.2.7 Hospit a .3.233846 l .8 2021-06-20 2021-06-20 Refill Iammarino, 1.2.840.1 [id number] 939 [id number] Methodi 00:00:00 00:00:[address] 3.430.2.7 Hospit a .3.406293 l .8 2021-06-20 2021-06-20 Refill Iammarino, 1.2.840.1 [id number] 587 [id number] Methodi 00:00:00 00:00:[address] 3.430.2.7 Hospit a .3.824150 l .8 2021-06-20 2021-06-20 Orders Angelica, 1.2.840.1 [id number] 16015 Methodi 00:00:00 00:00:00 Only Imad 90523.1.[address] 3.430.2.7 Hospit a .3.890688 l .8 2021-06-06 2021-06-06 OFFICE STLMLC STLMLC [id number] Co mmon 00:00:00 00:00:00 VISIT EST Spir it PT LEVEL 3 - [facility] 2021-05-11 2021-05-11 Outpatient ANGELICA, [facility] [id number] 7370 [place] 00:00:00 00:00:00 IMAD 274 Method i 2021-05-03 2021-05-03 OFFICE STLMLC STLMLC [id number] Co mmon 00:00:00 00:00:00 VISIT EST Spir it PT LEVEL 3 [facility] 2021-04-13 2021-04-13 Outpatient ANGELICA [facility] [id number] [place] 00:00:00 00:00:00 IMAD 001 Method i 2021-04-13 2021-04-13 Outpatient [facility] [id number] 6134 [place] 00:00:00 00:00:00 IMAD 874 Method i 2021-04-02 2021-04-02 (TEL) STLMLC STLMLC [id number] Co mmon 00:00:00 00:00:[address] [facility] 2021-03-29 2021-03-29 (TEL) STLMLC STLMLC [id number] Co mmon 00:00:00 00:00:[address] [facility] 2021-03-24 2021-03-24 (TEL) STLMLC STLMLC [id number] Co mmon 00:00:00 00:00:[address] [facility] 2021-03-24 2021-03-24 (TEL) STLMLC STLMLC [id number] Co mmon 00:00:00 00:00:[address] [facility] 2021-03-24 2021-03-24 Outpatient [facility] [id number] [place] 00:00:00 00:00:[address] 2021-03-16 2021-03-21 Inpatient [facility], [facility] 064 [id number] 26 [place] 00:00:00 00:00:00 ASMA 608 Method i 2021-03-17 2021-03-17 EXT [facility] OP Antoni, EXT MSRDP 1.2.840.114 1 [id number] [place] 00:00:00 00:00:00 Brandt Gao LOCATION 350.1.13.58 Health 9.2.7.2.686 607.2516706 0 2021-03-17 2021-03-17 EXT [facility] OP Antoni, EXT MSRDP 1.2.840.114 1 [id number] [place] 00:00:00 00:00:00 Brandt Gao LOCATION 350.1.13.58 Health 9.2.7.2.686 [id number] 0 2021-03-04 2021-03-04 Office Ty, UTP ORTHO 1.2.729.780 7382 42422 [place] 13:35:44 14:05:44 Visit Nicholette SUGAR 350.1.13.58 Health LAND 9.2.7.2.686 [id number] 1 2021-03-04 2021-03-04 Office Ty, UTP ORTHO 1.2.810.834 9777 63507 13:35:44 14:05:44 Visit Nicholette SUGAR 350.1.13.58 LAND 9.2.7.2.686 [id number] 1 2021-03-02 2021-03-02 Outpatient ANGELICA, [facility] [id number] [place] 00:00:00 00:00:00 IMAD [address] 2021-02-02 2021-02-02 Office Manjarrez, [facility] 1.2.878.740 4734 11056 [place] 13:52:06 14:20:28 Visit Salvador SUGAR 350.1.13.58 He alth LAND 9.2.7.2.686 [id number] 1 2021-02-02 2021-02-02 Office Manjarrez, [facility]THO 1.2.721.702 4690 67358 13:52:06 14:20:28 Visit Salvador SUGAR 350.1.13.58 LAND 9.2.7.2.686 [id number] 1 2021-01-31 2021-01-31 Outpatient SUZETTE, [facility] [id number] 624 [place] 00:00:00 00:00:00 SERA 659 Method i 2021-01-20 2021-01-20 [facility] 12:07:00 17:40:00 SALVADOR 2021-01-20 2021-01-20 Gerald MANJARREZ [facility] Orthopedics 743 [address]3716 [place] 13:00:00 13:00:00 t; SALVADOR MANJARREZ, - Sugar Phys ici Paige FRANCO 1 ans MDamien 2021-01-14 2021-01-14 Outpatient STLMLC STLMLC [id number] Common 00:00:00 00:00:[address] [facility] 2021-01-13 2021-01-13 Outpatient STLMLC STLMLC [id number] Common 00:00:00 00:00:[address] [facility] 2021-01-03 2021-01-03 Outpatient STLMLC STLMLC [id number] Common 00:00:00 00:00:[address] [facility] 2020-12-30 2020-12-30 [facility] 738 92837 [place] 09:30:00 09:30:00 t; SALVADOR MANJARREZ, - Sugar Phys Paige Weber 1 ans MDamien 2020-12-21 2020-12-21 Outpatient STLMLC STLMLC [id number] Common 00:00:00 00:00:[address] [facility] 2020-12-21 2020-12-21 Outpatient MANJARREZ, [facility] [id number] [place] 00:00:00 00:00:00 SALVADOR 975 Method i 2020-12-21 2020-12-21 Outpatient CONSTANTINO, [facility] [id number] 740 [place] 00:00:00 00:00:00 NADIM 340 Method i 2020-12-21 2020-12-21 Outpatient MANJARREZ, [facility] [id number] 742 [place] 00:00:00 00:00:00 SALVADOR 274 Method i 2020-12-21 2020-12-21 Outpatient CONSTANTINO, [facility] [id number] [place] 00:00:00 00:00:00 NADIM 845 Method i 2020-10-07 2020-10-07 Appointyamila MANJARREZ [facility] Orthopedics 718 50404 [place] 09:30:00 09:30:00 SALVADOR Acosta, - Sugar Phys ici Paige FRANCO [facility] 1 ans M.Anisha 2020-09-23 2020-09-23 Outpatient [facility] [id number] Common 00:00:00 00:00:00 Spirit - CHI [facility] 2020-08-04 2020-08-04 Outpatient ANGELICA, [facility] [id number] [place] 00:00:00 00:00:00 IMAD 667 Method i 2020-06-03 2020-06-03 Outpatient [facility] [id number] Common 09:00:00 09:00:00 t Specialty/U Sp mari Specialty rology - [facility] /Urology Clinic [facility] 2020-05-06 2020-05-06 Outpatient LISBETH [facility] [id number] [place] 00:00:00 00:00:00 JW 039 Method i 2020-04-28 2020-04-28 Outpatient ANGELICA, [facility] [id number] [place] 00:00:00 00:00:00 IMAD 297 Method i 2020-03-31 2020-03-31 Outpatient ANGELICA [facility] [id number] [place] 00:00:00 00:00:00 IMAD 115 Method i 2020-03-31 2020-03-31 Outpatient ANGELICA [facility] [id number] [place] 00:00:00 00:00:00 IMAD 016 Method i 2020-03-23 2020-03-23 Out[facility] [id number] [place] 08:20:00 08:20:[address] Family [facility] Family Medicine [facility] 2020-03-17 2020-03-17 Outpatient ANGELICA [facility] [id number] [place] 00:00:00 00:00:00 IMAD 613 Method i 2020-03-17 2020-03-17 Outpatient ANGELICA, [facility] [id number] [place] 00:00:00 00:00:00 IMAD 586 Method i 2020-03-08 2020-03-08 Outpatient [facility] [id number] [place] 10:55:00 10:55:[address] Sp[address] [facility] 2020-02-20 2020-02-20 Outpatient ANGELICA, [facility] [id number] [place] 00:00:00 00:00:00 IMAD 705 Method i 2020-02-19 2020-02-19 Outpatient ANGELICA, [facility] 021 [id number] [place] 00:00:00 00:00:00 IMAD 578 Method i 2020-01-30 2020-01-30 Outpatient SUZETTE, [facility] [id number] [place] 00:00:00 00:00:00 SERA 769 Method i 2020-01-28 2020-01-29 Outpatient ANGELICA, [facility] [id number] [place] 00:00:00 00:00:00 IMAD 937 Method i 2019-12-03 2019-12-03 Outpatient [facility] [id number] [place] 11:15:00 11:15:[address] [facility] 2019-06-12 2019-06-12 Outpatient [facility] [id number] [place] 15:20:00 15:20:[address] [facility] 2018-12-27 2018-12-27 Outpatient [facility] [id number] [place] 13:00:00 13:00:[address] [facility] 2018-12-17 2018-12-17 Outpatient [facility] [id number] [place] 11:09:00 11:09:[address] [facility] 2018-12-01 2018-12-01 Outpatient [facility] [id number] Common 21:22:00 21:22:[address] [facility] 2018-10-28 2018-10-28 Outpatient [facility] 24 [id number] Common 15:53:00 15:53:[address] [facility] 2018-09-26 2018-09-26 Outpatient Lucia Topete 22 [id number] [place] 10:45:00 10:45:[address] [facility] 2018-08-05 2018-08-05 Outpatient Lucia Topete 13 [id number] [place] 08:30:00 08:30:00 t Filer [employer] Spir it Drive [facility] 2018-05-06 2018-05-06 Outpatient Lucia Topete 15 [id number] [place] 09:15:00 09:15:00 t Filer [employer] Spir it Drive [facility] Results Test Description Test Time Test Comments Results Result Comments Source Basic metabolic panel 2022-07-13 07:40:00 Test Item Value Reference Range Interpretation Comme nts Glucose (test code = 108 mg/dL 65-99 H Fastin g reference 2345-7) interval For so meone without known d iabetes, a glucose valuebe tween 100 and 125 mg/dL i s consistent withprediabetes and should be confi rmed with afollow-up test . BUN (test code = 3094-0) 39 mg/dL 7-25 H Creatinine (test code = 2.85 mg/dL 0.70-1.28 H 2160-0) eGFR (test code = 8257) See_Comment L The eGFR is based on the CKD-EPI 2020 eq uation. To calculate the n ew eGFR from a previous Creatinine or C ystatin Cresult, go to https://www.kid jennie.org/pr ofessionals/kdo qi/gfr%5Fc alculator [Auto mated message] The sy stem which generated this result transmitted ref erence range: > OR = 6 0 mL/min/1.73m2. The reference range was not used to interpr et this result as normal/abnormal . BUN/creatinine ratio See_Comment [Autom ated message] The (test code = 3097-3) system which generated this result tra nsmitted reference range : 6 - 22 (calc). The ref erence range was not u sed to interpret this result as normal/abnormal . Sodium (test code = 139 mmol/L 461-658 7609-2) Potassium (test code = 5.8 mmol/L 3.5-5.3 H 2823-3) Chloride (test code = 104 mmol/L 98-110 2075-0) CO2 (test code = 2027-9) 27 mmol/L 20-32 Calcium (test code = 9.4 mg/dL 8.6-10.3 55898-3) RAC (test code = RAC) Performing Organization Information: Site ID: [facility] Name: [facility] Address: [address] [place] [phone] Director: Jake Sow Lab Interpretation (test Abnormal code = 51336-8) [facility] [id number] 19:28:00 Test Item Value Reference Range Interpretation Comments Digoxin (test See_Comment BRITTANY Anti-Digox in code = 60704-9) (Digibind(R) ) in serum/plasma of patients under toxicity therap y may interferewith t he digoxin immunoa ssay. [Automated mess age] The system [employer] generated this result transmit domenico reference range : 0.8 - 2.0 mcg/L. Th e reference range was not used to interpret this result as normal/abnormal . CLARI (test code FASTING:YES = CLARI) FASTING: YES RAC (test code Performing = RAC) Organization Information: Site ID: [facility] Name: [facility] Address: [address] [place] [address] Director: Jake Sow [facility] with platelet and [id number] 19:28:00 Test Item Value Reference Interpretation Comments Range WBC (test code = See_Comment [Automated message] 3190-2) The system [employer] generated this result transmitted ref erence range: 3.8 - 10 .8 Thousand/uL. Th e reference range was not used to int erpret this result as normal/abnormal . RBC (test code = See_Comment [Automated message] 789-8) The system [employer] generated this result transmitted ref erence range: 4.20 - 5 .80 Million/uL. The reference range was not used to int erpret this result as normal/abnormal . HGB (test code = 12.2 g/dL 13.2-17.1 L 718-7) HCT (test code = 39.1 % 38.5-50.0 4544-3) MCV (test code = 92.0 fL 80.0-100.0 787-2) MCH (test code = 28.7 pg 27.0-33.0 785-6) MCHC (test code = 31.2 g/dL 32.0-36.0 L 786-4) RDW (test code = 13.0 % 11.0-15.0 788-0) Platelet count See_Comment [Automated m essage] (test code = 777-3) The syst em which generated this result transmitted ref erence range: 140 - 40 0 Thousand/uL. Th e reference range was not used to int erpret this result as normal/abnormal . MPV (test code = 9.1 fL 7.5-12.5 776-5) Neutrophils, See_Comment [Automated [place]] absolute (test code The syst em which = 751-8) generated this result transmitted ref erence range: 1,500 - 7,800 cells/uL. The reference range was not used to int erpret this result as normal/abnormal . Lymphocytes, See_Comment [Automated [place]] absolute (test code The syst em which = 731-0) generated this result transmitted ref erence range: 850 - 3, 900 cells/uL. The reference range was not used to int erpret this result as normal/abnormal . Monocytes, absolute See_Comment [Automa domenico message] (test code = 742-7) The syst em which generated this result transmitted ref erence range: 200 - 95 0 cells/uL. The reference range was not used to int erpret this result as normal/abnormal . Eosinophils, See_Comment [Automated Fermentalg amy] absolute (test code The syst em which = 711-2) generated this result transmitted ref erence range: 15 - 500 cells/uL. The reference range was not used to int erpret this result as normal/abnormal . Basophils, absolute See_Comment [Automa domenico message] (test code = 704-7) The syst em which generated this result transmitted ref erence range: 0 - 200 cells/uL. The reference range was not used to int erpret this result as normal/abnormal . Neutrophils (test 70.1 % code = 770-8) Lymphocytes (test 18.8 % code = 736-9) Monocytes (test 5.1 % code = 5905-5) Eosinophils (test 4.6 % code = 713-8) Basophils + RC 1.4 % (test code = 706-2) Nucleated RBC (test Review o f peripheral code = 8251-1) smear confirmsautomat ed results. CLARI (test code = FASTING:YES CLARI) FASTING: YES RAC (test code = Performing RAC) Organization Information: Site ID: [facility] Name: [facility] Address: [address] [place] [address] Director: Jake Sow Lab Interpretation Abnormal (test code = 76898-4) [facility]bfmsabsWV-nflOJC2529-08-24 19:28:00 Test Item Value Reference Interpretation Comments Range NT-proBNP (test 1974 pg/mL H Male Risk: Optimal code = 21071-7) < 253 pg/mL High > or = 253 pg/mL For Heart Failure ( HF) diagnosis, referenceranges in patients with dyspnea are bas ed onParis PATTON E t al. J Am Kelly Cardiol.2018;71 [...] pg/mL men, <372 pg/mL women) arebased on Elena et al. J Am Kelly Cardiol.2007:50 :205- 14. For patient s with existing H F, the optimal riskcategory cu t point for HF progression (<3 00 pg/mL)is based on Lisbeth TAPIA, et al. Clin Biochem.2010;43 :1405 -10. For additi onal information, pl ease refer tohttp://educat ion.bluebird bio/ faq/VIT537(This link is being provid ed for informational/e ducat ionalpurposes o nly.) CLARI (test code = FASTING:YES CLARI) FASTING: YES RAC (test code = Performing RAC) Organization Information: Site ID: EZ Name: [facility], Address: [address] [place] [address] Director: Verenice Flowers MD,PhD,YASH Lab Interpretation Abnormal (test code = 58429-3) [facility] [id number] 21:31:00 Test Item Value Reference Range Interpretation Comments POC glucose (test 91 mg/dL 65-99 Physical Therapist Assistant N guy: Chu code = 16093-5) GenebelDevic e ID: [id number] able: [facility] Notified RN [facility] kdmsebv9866-25-42 21:31:00 Test Item Value Reference Range Interpretation Comments POC glucose (test 91 mg/dL 65-99 Physical Therapist Assistant N guy: Chu code = 58492-6) [employer] e ID: [id number] able: TM Notified RN [facility] [id number] 21:31:00 Test Item Value Reference Range Interpretation Comments POC glucose (test 91 mg/dL 65-99 Physical Therapist Assistant N guy: Chu code = 80170-9) [employer]bel[employer] e ID: [id number] able: [facility] Notified RN [facility] clotting [id number] 18:22:00 Test Item Value Reference Range Interpretation Comments Activated clotting See_Comment Physical Therapist Assistant Name: Naidu time (test code = ElimaggiebethD evice ID: [id number]) [id number] [Autom ated message] The sy stem which generated this result transmitted ref erence range: 96 - 152 sec. The reference range was not used to interpr et this result as vandana l/abnormal. [facility] [id number] 18:22:00 Test Item Value Reference Range Interpretation Comments Activated clotting See_Comment Physical Therapist Assistant Name: Naidu time (test code = ElizabethD evice ID: [id number]) [id number] [Autom ated message] The sy stem which generated this result transmitted ref erence range: 96 - 152 sec. The reference range was not used to interpr et this result as vandana l/abnormal. [facility] [id number] 18:22:00 Test Item Value Reference Range Interpretation Comments Activated clotting See_Comment Physical Therapist Assistant Name: Naidu time (test code = Liang parker ID: [id number]) [id number] [Autom ated message] The sy stem which generated this result transmitted ref erence range: 96 - 152 sec. The reference range was not used to interpr et this result as vandana l/abnormal. [facility] arterial blood gas, corrected and [id number] 18:12:00 Test Item Value Reference Range Interpretation Comments pH, arterial (test 7.35-7.45 code = 2744-1) pCO2, arterial (test See_Comment [Autom ated code = 2018-8) message] The system which generated this result [...] 2708-6) pH, arterial corrected (test code = 80931-8) pCO2, arterial mmHg corrected (test code = 23760-0) pO2, arterial Unable to mmHg Physical Therapist Assistant ID: corrected (test code report Messarr a = 29663-1) AmandaDevice ID : [id number] Base excess, arterial See_Comment [Auto mated (test [...] mmol/L 1.11-1.32 L arterial (test code = 29827-7) Glucose, syringe 70 mg/dL 65-99 (test code = 2345-7) Lactic acid, syringe 0.5 mmol/L 0.5-2.2 (test code = 27705-3) Lab Interpretation Abnormal (test code = 89414-3) [facility] arterial blood gas, corrected and [id number] 18:12:00 Test Item Value Reference Range Interpretation [...] 2708-6) pH, arterial corrected (test code = 49367-5) pCO2, arterial mmHg corrected (test code = 57299-0) pO2, arterial Unable to mmHg Physical Therapist Assistant ID: corrected (test code report [facility] 91679[facility] AmandaDevice ID : [id number] Base excess, arterial See_Comment [Auto mated (test [...] mmol/L 1.11-1.32 L arterial (test code = 52009-9) Glucose, syringe 70 mg/dL 65-99 (test code = 2345-7) Lactic acid, syringe 0.5 mmol/L 0.5-2.2 (test code = 48456-9) Lab Interpretation Abnormal (test code = 38982-3) [facility] arterial blood gas, corrected and [id number] 18:12:00 Test Item Value Reference Range Interpretation [...] 2708-6) pH, arterial corrected (test code = 37563-7) pCO2, arterial mmHg corrected (test code = 12017-9) pO2, arterial Unable to mmHg Physical Therapist Assistant ID: corrected (test code report Messarr a = 69700-0) AmandaDevice ID : [id number] Base excess, arterial See_Comment [Auto mated (test code = 1925-7) message ] The system which generated this result transmit domenico reference range : -2 - 2 mEq/L. T he reference range was not used to interpret this result as normal/abnormal . Hemoglobin, syringe 10.5 g/dL 14.0-18.0 L (test code = 718-7) Potassium, syringe [...] mmol/L 1.11-1.32 L arterial (test code = 98043-2) Glucose, syringe 70 mg/dL 65-99 (test code = 2345-7) Lactic acid, syringe 0.5 mmol/L 0.5-2.2 (test code = 51992-4) Lab Interpretation Abnormal (test code = 36789-2) [facility] level, emjhtfo6933-05-00 13:37:00 Test Item Value Reference Range Interpretation Comments Glucose, syringe (test code = 121 mg/dL 65-99 H 2345-7) Lab Interpretation (test code = Abnormal 68294-0) [facility]udaHemoglobin, eilirvg7425-24-29 13:37:00 Test Item Value Reference Range Interpretation Comments Hemoglobin, syringe (test code = 12.1 g/dL 14-18 L 718-7) Lab Interpretation (test code = Abnormal 77487-3) [facility]udaPotassium, [id number] 13:37:00 Test Item Value Reference Range Interpretation Comments Potassium, syringe See_Comment [Automat ed message] The (test code = 2007) system wh ich generated this result tra nsmitted reference range : 3.5 - 5.0 mEq/L. The refe rence range was not used to interpret this result as normal/abnormal . [facility] [id number] 13:37:00 Test Item Value Reference Range Interpretation Comments Sodium, syringe (test See_Comment [Auto mated message] The code = 2947-0) system which generated this result tra nsmitted reference range : 135 - 148 mEq/L. The refe rence range was not used to interpret this result as normal/abnormal . [facility], [id number] 13:37:00 Test Item Value Reference Range Interpretation Comments Glucose, syringe (test code = 121 mg/dL 65-99 H 2345-7) Lab Interpretation (test code = Abnormal 60367-7) [facility]udaHemoglobin, [id number] 13:37:00 Test Item Value Reference Range Interpretation Comments Hemoglobin, syringe (test code = 12.1 g/dL 14-18 L 718-7) Lab Interpretation (test code = Abnormal 53103-2) [id number] 13:37:00 Test Item Value Reference Range Interpretation Comments Potassium, syringe See_Comment [Automat ed message] The (test code = 2007) system [facility] generated this result tra nsmitted reference range : 3.5 - 5.0 mEq/L. The refe rence range was not used to interpret this result as normal/abnormal . [facility], [id number] 13:37:00 Test Item Value Reference Range Interpretation Comments Sodium, syringe (test See_Comment [Auto mated message] The code = 2947-0) system which generated this result tra nsmitted reference range : 135 - 148 mEq/L. The refe rence range was not used to interpret this result as normal/abnormal . [facility]udaGlucose level, [id number] 13:37:00 Test Item Value Reference Range Interpretation Comments Glucose, syringe (test code = 121 mg/dL 65-99 H 2345-7) Lab Interpretation (test code = Abnormal 45256-6) [facility]uda[facility]emoglobin, [id number] 13:37:00 Test Item Value Reference Range Interpretation Comments Hemoglobin, syringe (test code = 12.1 g/dL 14.0-18.0 L 718-7) Lab Interpretation (test code = Abnormal 32270-9) [facility]udaPotassium, [id number] 13:37:00 Test Item Value Reference Range Interpretation Comments Potassium, syringe See_Comment [Automat ed message] The (test code = 2007) system [facility] generated this result tra nsmitted reference range : 3.5 - 5.0 mEq/L. The refe rence range was not used to interpret this result as normal/abnormal . [facility], [id number] 13:37:00 Test Item Value Reference Range Interpretation Comments Sodium, syringe (test See_Comment [Auto mated message] The code = 2947-0) system which generated this result tra nsmitted reference range : 135 - 148 mEq/L. The refe rence range was not used to interpret this result as normal/abnormal . [facility]2022-07-12 17:22:01 Test Item Value Reference Range Interpretation Comments POC creatinine (test 2.9 mg/dl 0.7-1.2 H Operato r Name: code = 65782-6) Sherif Hobsonevice ID: [id number] POC hematocrit (test 41 % 41-51 code = 4544-3) Lab Interpretation (test Abnormal code = 56956-7) [facility]2022-07-12 17:22:01 Test Item Value Reference Range Interpretation Comments POC creatinine (test 2.9 mg/dl 0.7-1.2 H Operato r Name: code = 30364-2) Sherif Markham diDevice ID: [id number] POC hematocrit (test 41 % 41-51 code = 4544-3) Lab Interpretation (test Abnormal code = 90637-2) [facility]2022-07-12 17:22:01 Test Item Value Reference Range Interpretation Comments POC creatinine (test 2.9 mg/dl 0.7-1.2 H Operato r Name: code = 91434-7) Sherif Markham diDevice ID: [id number] POC hematocrit (test 41 % 41-51 code = 4544-3) Lab Interpretation (test Abnormal code = 86301-4) [facility]2022-06-30 10:15:00 Test Item Value Reference Interpretation Comments Range Creatinine (test 3.91 mg/dL 0.7-1.18 H For patient s >49 code = 2160-0) years of age, the reference limit for Creatinine is approximately 1 3% higher for peopleidentifie d as -Ida n. EGFR Non-Afr. See_Comment L [Automated me ssage] Sammarinese (test code The syst em which = 3645) generated this result transmit domenico reference range : > OR = 60 mL/min/1.73m2. The reference range was not used to interpret this result as normal/abnormal . EGFR See_Comment L [Automated mes amy] Sammarinese (test code The syst em which = 1392) generated this result transmit domenico reference range : > OR = 60 mL/min/1.73m2. The reference range was not used to interpret this result as normal/abnormal . RAC (test code = Performing RAC) Organization Information: Site ID: GARYA [facility] Address: [address] [place] [address] Director: Jake Sow Lab Interpretation Abnormal (test code = 81704-0) [facility]udaFerritin [id number] 10:15:00 Test Item Value Reference Range Interpretation Comments Ferritin level (test 96 ng/mL 24-380 code = 2276-4) RAC (test code = RAC) Performing Organization Information: Site ID: A [facility]: [facility] Address: [address] [place] [address] Director: Jake Sow [facility]udaBUN [id number] 10:15:00 Test Item Value Reference Range Interpretation Comments BUN (test code = 3094-0) 59 mg/dL 7-25 H RAC (test code = RAC) Performing Organization Information: Site ID: A [facility]: [facility] Address: [address] [place] [address] Director: Jake Sow Lab Interpretation (test Abnormal code = 90156-5) [facility] iron binding [id number] 10:15:00 Test Item Value Reference Range Interpretation [...] RAC) Organization Information: Site ID: A [facility] Address: [address] [place] [address] Director: Jake Sow Lab Interpretation Abnormal (test code = 83766-8) [facility]udaCreatinine [id number] 10:15:00 Test Item Value Reference Interpretation Comments Range Creatinine (test 3.91 mg/dL 0.7-1.18 H For patient s >49 code = 2160-0) years of age, the reference limit for Creatinine is approximately 1 3% higher for peopleidentifie d as -Ida n. EGFR Non-Afr. See_Comment L [Automated me ssage] Sammarinese (test code The syst em which = 4808) generated this result transmit domenico reference range : > OR = 60 mL/min/1.73m2. The reference range was not used to interpret this result as normal/abnormal . EGFR See_Comment L [Automated mes amy] Sammarinese (test code The syst em which = 7068) generated this result transmit domenico reference range : > OR = 60 mL/min/1.73m2. The reference range was not used to interpret this result as normal/abnormal . RAC (test code = Performing RAC) Organization Information: Site ID: [facility] Name: [facility] Address: [address] [place], [place] [phone] Director: Jake Sow Lab Interpretation Abnormal (test code = 98302-6) [facility]udaFerritin [id number] 10:15:00 Test Item Value Reference Range Interpretation Comments Ferritin level (test 96 ng/mL 24-380 code = 2276-4) RAC (test code = RAC) Performing Organization Information: Site ID: [facility]: [facility] Address: [address] [place], [place] [phone] Director: Jake Sow [facility] BudaBUN [id number] 10:15:00 Test Item Value Reference Range Interpretation Comments BUN (test code = 3094-0) 59 mg/dL 7-25 H RAC (test code = RAC) Performing Organization Information: Site ID: [facility]: [facility] Address: [address] [place], [place] [phone] Director: Jake Sow Lab Interpretation (test Abnormal code = 48064-1) [facility] BudaTotal iron binding [id number] 10:15:00 Test Item Value Reference Range Interpretation [...] RAC) Organization Information: Site ID: RGA Name: [facility] Address: [address] [place], [place] [id number] Director: Jake Sow Lab Interpretation Abnormal (test code = 34800-0) [facility] BudaCreatinine [id number] 10:15:00 Test Item Value Reference Interpretation Comments Range Creatinine (test 3.91 mg/dL 0.70-1.18 H For patient s >49 code = 2160-0) years of age, the reference limit for Creatinine is approximately 1 3% higher for peopleidentifie d as -Ida n. EGFR Non-Afr. See_Comment L [Automated me ssage] Sammarinese (test code The syst em which = 5653) generated this result transmit domenico reference range : > OR = 60 mL/min/1.73m2. The reference range was not used to interpret this result as normal/abnormal . EGFR See_Comment L [Automated mes amy] Sammarinese (test code The syst em which = 4224) generated this result transmit domenico reference range : > OR = 60 mL/min/1.73m2. The reference range was not used to interpret this result as normal/abnormal . RAC (test code = Performing RAC) Organization Information: Site ID: RGA Name: [facility] Address: [address] [place] [phone] Director: Jake Sow Lab Interpretation Abnormal (test code = 79784-7) [facility]udaFerritin [id number] 10:15:00 Test Item Value Reference Range Interpretation Comments Ferritin level (test 96 ng/mL 24-380 code = 2276-4) RAC (test code = RAC) Performing Organization Information: Site ID: SHELLY [facility] Address: [address] [place] [phone] Director: Jake Sow [facility] BudaBU [id number] 10:15:00 Test Item Value Reference Range Interpretation Comments BUN (test code = 3094-0) 59 mg/dL 7-25 H RAC (test code = RAC) Performing Organization Information: Site ID: [facility] Name: [facility] Address: [address] [place] [phone] Director: Jake Sow Lab Interpretation (test Abnormal code = 20812-5) [facility] iron binding [id number] 10:15:00 Test Item Value Reference Range Interpretation [...] = Performing RAC) Organization Information: Site ID: [facility]: [facility] Address: [address] [place] [phone] Director: Jake Sow Lab Interpretation Abnormal (test code = 78174-5) [facility] 12 [id number] 03:09:41 Test Item Value Reference Range Interpretation Comments Ventricular rate (test code = 253) Atrial rate (test code = 255) SC interval (test code = 266) QRSD interval [...] 14:08,-Electronic atrial pacemaker has replaced Sinus rhythm- [address]2022-06-23 03:09:41 Test Item Value Reference Range Interpretation Comments Ventricular rate (test code = 253) Atrial rate (test code = 255) SC interval (test code = 266) QRSD interval [...] 14:08,-Electronic atrial pacemaker has replaced Sinus rhythm- [address]2022-06-23 03:09:41 Test Item Value Reference Range Interpretation Comments Ventricular rate (test code = 253) Atrial rate (test code = 255) SC interval (test code = 266) QRSD interval [...] 14:08,-Electronic atrial pacemaker has replaced Sinus rhythm- [facility] nat[facility]uretic [id number] 18:20:00 Test Item Value Reference Interpretation Comments Range BNP (test code = 331 pg/mL See_Comment [place] [address]-8) with age in the [facility] on with the highes t values seen inindividuals g reater than 75 years o f age.Reference: J. Am. Kelly. Cardiol. 2002; 40:976-982. [Automated mess age] The system [employer] generated this result transmitted ref erence range: <=100. T he reference range was not used to int erpret this result as normal/abnormal . CLARI (test code = FASTING:YES CLARI) FASTING: YES RAC (test code = Performing RAC) Organization Information: Site ID: RGA Name: [facility] Address: [address] [place] [address] Director: Jake Sow Lab Interpretation Abnormal (test code = 75594-9) [facility] natriuretic [id number] 18:20:00 Test Item Value Reference Interpretation Comments Range BNP (test code = 331 pg/mL See_Comment H B[place] increase 81228-5) with age in the [facility] on with the highes t values seen inindividuals g reater than 75 years o f age.Reference: J. Am. Kelly. Cardiol. 2002; 40:976-982. [Automated mess age] The system [employer] generated this result transmitted ref erence range: <=100. T he reference range was not used to int erpret this result as normal/abnormal . CLARI (test code = FASTING:YES CLARI) FASTING: YES RAC (test code = Performing RAC) Organization Information: Site ID: RGA Name: [facility] Address: [address] [place] [phone] Director: Jake Sow Lab Interpretation Abnormal (test code = 65276-1) [facility] natriuretic [id number] 18:20:00 Test Item Value Reference Interpretation Comments Range BNP (test code = 331 pg/mL See_Comment H BNP levels increase 08311-7) with age in the [facility] with [...] RAC) Organization Information: Site ID: RGA Name: [facility] Address: [address] [place] [address] Director: Jake Sow Lab Interpretation Abnormal (test code = 11977-9) [facility]udaDigoxin [id number] 18:37:00 Test Item Value Reference Interpretation Comments Range Digoxin (test code = See_Comment L BRITTANY Ant i-Digoxin 33441-3) (Digibind(R)) i n serum/plasma of patients under [...] RAC) Organization Information: Site ID: RGA Name: [facility] Address: [address] [place] [address] Director: Jake Sow Lab Interpretation Abnormal (test code = 49303-8) [facility] BudaQhzpsdgqVD-fqhFZQ4215-05-04 18:37:00 Test Item Value Reference Interpretation Comments Range NT-proBNP (test 746 pg/mL H Male Risk: Optimal code = 08781-2) < 253 pg/mL High > or = 253 pg/mL For Heart Failure ( HF) diagnosis, referenceranges in patients with dyspnea are mary PATTON, E t al. J Am Kelly [...] HF progression (<3 00 pg/mL)is based on Lisbeth TAPIA, et al. Clin Biochem.2010;43 :1405 -10. For additi onal information, pl ease refer tohttp://[employer]/ faq/GNV275(This link is being provid ed for informational/e ducat ionalpurposes o nly.) CLRAI (test code = FASTING:YES CLARI) FASTING: YES RAC (test code = Performing RAC) Organization Information: Site ID: EZ Name: [facility], Address: [address] [place] [phone] Director: Verenice Flowers MD,PhD,YASH Lab Interpretation Abnormal (test code = 66079-2) [facility] BudaDigoxin [id number] 18:37:00 Test Item Value Reference Interpretation Comments Range Digoxin (test code = See_Comment L BRITTANY Ant i-Digoxin 07820-5) (Digibind(R)) i n serum/plasma of patients under [...] RAC) Organization Information: Site ID: RGA Name: [facility] Address: [address] [place] [phone] Director: Jake Sow Lab Interpretation Abnormal (test code = 80154-3) [facility] BudaZjzwnfgyJH-hbxLVV9160-41-04 18:37:00 Test Item Value Reference Interpretation Comments Range NT-proBNP (test 746 pg/mL H Male Risk: Optimal code = 09845-4) < 253 pg/mL High > or = 253 pg/mL For Heart Failure ( HF) diagnosis, referenceranges in patients with dyspnea are bas ed onAngelia Vazquez t al. J Am Kelly Cardiol.2018;71 :1191 [...] men, <372 pg/mL women) arebased on Oml carlos Diana et al. J Am Kelly Cardiol.2007:50 :205- 14. For patient s with existing H F, the optimal riskcategory cu t point for HF progression (<3 00 pg/mL)is based on Lucas KB, et al. Clin Biochem.2010;43 :1405 -10. For additi onal information, pl ease refer tohttp://educat ion.[employer]/ faq/XQA805(This link is being provid ed for informational/e ducat ionalpurbeka o nly.) CLARI (test code = FASTING:YES CLARI) FASTING: YES RAC (test code = Performing RAC) Organization Information: Site ID: EZ Name: [facility], Address: [address] [place] [phone] Director: Verenice Flowers MD,PhD,YASH Lab Interpretation Abnormal (test code = 60163-1) Sayra BabinARS-CoV-2 (COVID-19) RNA [Presence] in Respiratory specimen by SUMANTH with probe tughdkqir6978-98-69 02:14:28 Test Item Value Reference Range Interpretation Comments SARS-CoV-2 (COVID-19) RNA Not detected Not-Detected [Presence] in Respiratory specimen by SUMANTH with probe detection (test code = 67580-7) Whether patient is employed in a healthcare setting (test code = 08255-1) Whether the patient has symptoms related to condition of interest (test code = 31160-3) Patient was hospitalized because of this condition (test code = 86446-9) Whether the patient was admitted to intensive care unit (ICU) for condition of interest (test code = 39228-2) Whether patient resides in a congregate care setting (test code = 48248-8) [facility] WESTIMMUNOFIXATION ELECTROPHORESIS (ANAND)2018-03-22 09:59:00 Test Item Value Reference Range Interpretation Comments IMMUNOGLOBULIN G (IGG) 944 mg/dL 540-1822 (BEAKER) (test code = 427) IMMUNOGLOBULIN A (IGA) 137 mg/dL 63-484 (BEAKER) (test code = 639) IMMUNOGLOBULIN M (IGM) 41 mg/dL 22-293 (BEAKER) (test code = 638) SERUM ANAND ID (BEAKER) No monoclonal (test code = 1814) proteins detected. Polyclonal distribution of immunoglobulins. [id number] Angely Santos, ([facility]) (test code = (electronic 5678) signature) PROTEIN ELECTROPHORESIS, [id number] 16:21:00 Test Item Value Reference Range Interpretation [...] significant change from previous study performed 12-13-17. [id number] Angely Santos MD ([facility]) (test code = (electronic signature) 2615) PROTEIN TOTAL SERUM, 6.4 gm/dL 6.0-8.3 SPEP (BEAKER) (test code = 9873) TSH/FREE T4 IF [id number] 09:28:00 Test Item Value Reference Range Interpretation Comments THYROID STIMULATING HORMONE 3.29 uIU/mL 0.35-4.94 (BEAKER) (test code = 772) B-TYPE NATRIURETIC FACTOR (BNP)2018-03-15 09:11:00 Test Item Value Reference Range Interpretation Comments B-TYPE NATRIURETIC PEPTIDE (BEAKER) 641 pg/mL 0-100 H (test code = 700) LIPID [id number] 09:05:00 Test Item Value Reference Range Interpretation [...] 130-159 High 160-189 Very High >=190BASIC METABOLIC [id number] 09:05:00 Test Item Value Reference Range Interpretation [...] APPLICABLE FOR DIALYSIS PATIEN TS. HEPATIC FUNCTION [id number] 09:05:00 Test Item Value Reference Range Interpretation [...] 6-55 347) CBC W/PLT COUNT & AUTO [id number] 09:02:00 Test Item Value Reference Range Interpretation [...] PERCENT (BEAKER) (test code = 2801) HEMOGLOBIN [id number] 12:30:00 Test Item Value Reference Range Interpretation Comments HEMOGLOBIN A1C (BEAKER) (test code = 6.3 % 4.3-6.1 H 368) ALKALINE [id number] 10:37:00 Test Item Value Reference Range Interpretation Comments ALKALINE PHOSPHATASE (BEAKER) (test 43 U/L 40-150 code = 346) [id number] 10:37:00 Test Item Value Reference Range Interpretation Comments POTASSIUM (BEAKER) (test code = 5.6 meq/L 3.5-5.1 H 379) [id number] 10:37:00 Test Item Value Reference Range Interpretation Comments MAGNESIUM (BEAKER) (test code = 1.9 mg/dL 1.6-2.6 627) [id number] 10:37:00 Test Item Value Reference Range Interpretation Comments SODIUM (BEAKER) (test code = 381) 137 meq/L 136-145 AST (SGOT)2017-12-21 10:37:00 Test Item Value Reference Range Interpretation Comments AST (SGOT) (BEAKER) (test code = 353) 24 U/L 5-34 ALT (SGPT)2017-12-21 10:37:00 Test Item Value Reference Range Interpretation Comments ALT (SGPT) (BEAKER) (test code = 347) 23 U/L 6-55 BILIRUBIN, ADULT [id number] 10:37:00 Test Item Value Reference Range Interpretation Comments BILIRUBIN TOTAL (BEAKER) (test code 0.3 mg/dL 0.2-1.2 = 377) BILIRUBIN, [id number] 10:37:00 Test Item Value Reference Range Interpretation Comments BILIRUBIN DIRECT (BEAKER) (test 0.2 mg/dL 0.1-0.5 code = 706) [id number] 10:37:00 Test Item Value Reference Range Interpretation Comments CHLORIDE (BEAKER) (test code = 382) 102 meq/L 98-107 CREATINE KINASE (CK)2017-12-21 10:37:00 Test Item Value Reference Range Interpretation Comments CREATINE KINASE TOTAL (BEAKER) (test 166 U/L 29-200 code = 380) LACTATE DEHYDROGENASE (LDH)2017-12-21 10:37:00 Test Item Value Reference Range Interpretation Comments LACTATE DEHYDROGENASE (BEAKER) (test 223 U/L 125-220 H code = 635) BUN AND [id number] 10:37:00 Test Item Value Reference Range Interpretation [...] 1814) proteins detected. Polyclonal distribution of immunoglobulins. [id number] Angely Santos, ([facility]) (test code = (electronic 0024) signature) PROTEIN ELECTROPHORESIS, [id number] 15:31:00 Test Item Value Reference Range Interpretation [...] present (AKER) (test code = in expected 2613) distribution. No monoclonal bands detected. [id number] Angely Santos MD ([facility]) (test code = (electronic signature) 9822) PROTEIN TOTAL SERUM, 6.4 gm/dL 6.0-8.3 SPEP (BEAKER) (test code = 2660) [id number] 15:30:00 Test Item Value Reference Range Interpretation Comments POTASSIUM (BEAKER) (test code = 5.4 meq/L 3.5-5.1 H 379) TSH/FREE T4 IF [id number] 12:17:00 Test Item Value Reference Range Interpretation Comments THYROID STIMULATING HORMONE 3.18 uIU/mL 0.35-4.94 (BEAKER) (test code = 772) BASIC METABOLIC [id number] 12:02:00 Test Item Value Reference Range Interpretation [...] = 700) CBC W/PLT COUNT & AUTO [id number] 11:36:00 Test Item Value Reference Range Interpretation [...] PERCENT (BEAKER) (test code = 2801) HEMOGLOBIN [id number] 12:52:00 Test Item Value Reference Range Interpretation Comments HEMOGLOBIN A1C (BEAKER) (test code = 7.9 % 4.3-6.1 H 368) TSH/FREE T4 IF [id number] 12:22:00 Test Item Value Reference Range Interpretation Comments THYROID STIMULATING HORMONE 2.15 uIU/mL 0.35-4.94 (BEAKER) (test code = 772) B-TYPE NATRIURETIC FACTOR (BNP)2017-09-06 11:57:00 Test Item Value Reference Range Interpretation Comments B-TYPE NATRIURETIC PEPTIDE (BEAKER) 364 pg/mL 0-100 H (test code = 700) URIC [id number] 11:55:00 Test Item Value Reference Range Interpretation Comments URIC ACID (BEAKER) (test code = 6.6 mg/dL 2.6-7.2 773) [id number] 11:55:00 Test Item Value Reference Range Interpretation Comments MAGNESIUM (BEAKER) (test code = 1.6 mg/dL 1.6-2.6 627) BASIC METABOLIC [id number] 11:55:00 Test Item Value Reference Range Interpretation [...] NOT APPLICABLE FOR DIALYSIS PATIEN TS. LIPID [id number] 11:55:00 Test Item Value Reference Range Interpretation [...] 130-159 High 160-189 Very High >=190HEPATIC FUNCTION [id number] 11:55:00 Test Item Value Reference Range Interpretation [...] (test code = 13 U/L 6-55 347) [id number] 11:51:00 Test Item Value Reference Range Interpretation Comments PREALBUMIN (BEAKER) (test code = 29 mg/dL 14-45 586) PROTHROMBIN [id number] 11:41:00 Test Item Value Reference Range Interpretation [...] mechanical heart valves.CBC W/PLT COUNT & AUTO [id number] 11:33:00 Test Item Value Reference Range Interpretation [...] (test code = 2801) RAD, BONE DENSITY [id number] 09:58:00Reason for exam:->heart transplant evaluation. screening for osteoporosisShould this be performedat the bedside?->NoFINAL REPORT Technique: Bone mineral density of the lumbar spine and both femoral necks performed on 08/16/2017 Clinical History: Osteopenia screening. Comparison: None Bone mineral density measurementLumbar spine1.382 gm/hw3Twbu Femoral neck1.157 gm/eq2Ptflc Femoral neck1.120 gm/cm2 Standard deviation from young [...] MDReport Verified Date/Time: 08/16/2017 09:58:30 Reading Location: [facility] Radiology Reading Room [id number] 12:15:00 Test Item Value Reference Range Interpretation Comments MAGNESIUM (BEAKER) (test code = 1.2 mg/dL 1.6-2.6 L 627) BASIC METABOLIC [id number] 12:15:00 Test Item Value Reference Range Interpretation [...] = 700) FLOW PRA CLASS I AND [id number] 11:17:00 Test Item Value Reference Range Interpretation Comments DATE OF SERUM (BEAKER) 549363 (test code = 2289) SERUM # (BEAKER) (test 662524 code = 3600) FLOW PRA CLASS I AND II See Scanned Report (test code = 2421) HLA [id number] 07:15:00 Test Item Value Reference Range Interpretation [...] (test code = 2583) HERPES VIRUS ANTIBODY, [id number] 14:18:00 Test Item Value Reference Range Interpretation Comments HERPES VIRUS IGM Negative HSV 1 IGM = NEGHSV 2 (BEAKER) (test code = IGM = NEG 1808) TOXOPLASMA GONDII ANTIBODY, [id number] 14:18:00 Test Item Value Reference Range Interpretation Comments TOXOPLASMA IGM ANTIBODY (BEAKER) Negative (test code = 742) PROTEIN ELECTROPHORESIS, [id number] 09:23:00 Test Item Value Reference Range Interpretation [...] of all clinical and laboratory data available. [facility]OLOGIS Test perform ed T-119 (BEAKER) and interpret ed (test code = by Quest Diaz an 2616) [place] [facility]. PROTEIN TOTAL 6.7 gm/dL 6.0-8.5 RR: 6.1-8.1 g/ dL SERUM, SPEP (BEAKER) (test code = 2660) URINE PROTEIN ELECTROPHORESIS, [id number] 08:49:00 Test Item Value Reference Range Interpretation Comments PROTEIN, URINE 12 mg/dL 0-14 (BEAKER) (test code = 1569) ALBUMIN URINE ELP 33.0 % (BEAKER) (test code = 1018) GAMMA GLOBULIN 67.0 % URINE (BEAKER) (test code = 1015) UPEP, ID-438 Pattern consistent (BEAKER) (test with mixed code = 2604) glomerular and tubular proteinuria. [facility]-PATHOLOGIST- Test perfo rmed and 438 (BEAKER) interpreted by (test code = [employer] [place] 2605) [place] L abs. POCT-GLUCOSE [id number] 17:07:00 Test Item Value Reference Range Interpretation Comments POC-GLUCOSE METER 283 mg/dL 70-110 H TESTED AT [facility] 6720 (BEAKER) (test code = DOUGLAS Peña [place] 1538) [address] POCT-GLUCOSE [id number] 12:48:00 Test Item Value Reference Range Interpretation Comments POC-GLUCOSE METER 148 mg/dL 70-110 H TESTED AT [facility] 6720 (BEAKER) (test code = [facility] [place] 15[address]) [address] POCT-GLUCOSE [id number] 07:37:00 Test Item Value Reference Range Interpretation Comments POC-GLUCOSE METER 154 mg/dL 70-110 H TESTED AT [facility] 6720 (BEAKER) (test code = [facility] [place] 1538) [address] [id number] 07:11:00 Test Item Value Reference Range Interpretation Comments MAGNESIUM (BEAKER) (test code = 1.5 mg/dL 1.6-2.6 L 627) BASIC METABOLIC [id number] 07:11:00 Test Item Value Reference Range Interpretation [...] 150-450 code = 756) MEAN PLATELET VOLUME ([facility]) 10.3 fL 9.4-12.4 (test code = 754) NUCLEATED RED BLOOD CELLS 0 /100 WBC 0-0 ([facility]) (test code = 413) POCT-GLUCOSE [id number] 21:29:00 Test Item Value Reference Range Interpretation Comments POC-GLUCOSE METER 142 mg/dL 70-110 H TESTED AT [place] [address] ([facility]) (test code = IBETHCT Casey [facility] 1538) [address] POCT-GLUCOSE [id number] 17:29:00 Test Item Value Reference Range Interpretation Comments POC-GLUCOSE METER 258 mg/dL 70-110 H TESTED AT [place] [address] ([facility]) (test code = BANNER Casey [facility] 1538) [address] TOXOPLASMA GONDII ANTIBODY, [id number] 15:37:00 Test Item Value Reference Range Interpretation Comments TOXOPLASMA GONDII IGG ([facility]) (test Negative code = 419) POCT-GLUCOSE [id number] 11:56:00 Test Item Value Reference Range Interpretation Comments POC-GLUCOSE METER 190 mg/dL 70-110 H TESTED AT [place] [address] ([facility]) (test code = [facility] 1538) [address] CREATININE [id number] 09:09:00 Test Item Value Reference Range Interpretation Comments CREATININE CLEARANCE 56.5 mL/min 70.0-140.0 L ([facility]) (test code = 357) VOLUME, TOTAL ([facility]) 2500 ml (test code = 1457) CREATININE URINE 46.2 mg/dL ([facility]) (test code = 375) [id number] Angely Santos MD ([facility]) (test code = (electronic signature) 0715) POCT-GLUCOSE [id number] 07:57:00 Test Item Value Reference Range Interpretation Comments POC-GLUCOSE METER 165 mg/dL 70-110 H TESTED AT [place] [address] ([facility]) (test code = B[facility] Casey [facility] 1538) [address] CBC (HEMOGRAM ONLY)2017-07-19 07:06:00 Test Item Value Reference Range Interpretation Comments WHITE BLOOD CELL COUNT ([facility]) 6.5 K/ L 3.5-10.5 (test [...] WBC 0-0 (BEAKER) (test code = 413) [id number] 04:55:00 Test Item Value Reference Range Interpretation Comments MAGNESIUM (BEAKER) (test code = 1.6 mg/dL 1.6-2.6 627) BASIC METABOLIC [id number] 04:55:00 Test Item Value Reference Range Interpretation [...] NOT APPLICABLE FOR DIALYSIS PATIEN TS. POCT-GLUCOSE [id number] 21:35:00 Test Item Value Reference Range Interpretation Comments POC-GLUCOSE METER 138 mg/dL 70-110 H TESTED AT [facility] 6720 ([facility]) (test code = [facility] [place] 1538) [address] POCT-GLUCOSE [id number] 17:20:00 Test Item Value Reference Range Interpretation Comments POC-GLUCOSE METER 108 mg/dL 70-110 TESTED AT [facility] 6720 ([facility]) (test code = [facility] [place] 1538) [address] VARICELLA ZOSTER ANTIBODY, [id number] 15:46:00 Test Item Value Reference Range Interpretation Comments VARICELLA ZOSTER IGG (AL) ([facility]) > Al (test code = 3197) VARICELLA ZOSTER RESULT INTERPRETATIONS: <=0.8 Al Nonreactive: Presumed non- immune to VZV 0.9-1.0Al Equivocal >=1.1 Al Reactive: Presumed immune to VZV HERPES VIRUS ANTIBODY, [id number] 15:45:00 Test Item Value Reference Range Interpretation Comments HERPES VIRUS IGG Negative HSV 1 IGG = NEGHSV 2 ([facility]) (test code = IGG = NEG 1807) CYTOMEGALOVIRUS ANTIBODY, [id number] 15:45:00 Test Item Value Reference Range Interpretation Comments CYTOMEGALOVIRUS IGG ANTIBODY Positive ([facility]) (test code = 790) CYTOMEGALOVIRUS ANTIBODY, [id number] 15:45:00 Test Item Value Reference Range Interpretation Comments CYTOMEGALOVIRUS IGM ANTIBODY Negative (BEAKER) (test code = 816) EBV-VCA ANTIBODY, [id number] 15:45:00 Test Item Value Reference Range Interpretation Comments SARY-NGUYEN VCA IGG (BEAKER) (test Positive code = 983) EBV-VCA ANTIBODY, [id number] 15:45:00 Test Item Value Reference Range Interpretation Comments SARY-NGUYEN VCA IGM (BEAKER) (test Negative code = 984) ANTI-NUCLEAR ANTIBODY (JOCELYNN)2017-07-18 11:50:00 Test Item Value Reference Range Interpretation Comments ANTI-NUCLEAR ANTIBODY (JOCELYNN) (BEAKER) Negative Negative (test code = 418) POCT-GLUCOSE [id number] 11:47:00 Test Item Value Reference Range Interpretation Comments POC-GLUCOSE METER 179 mg/dL 70-110 H TESTED AT [facility] 6720 (BEAKER) (test code = DOUGLAS Peña [place] 1538) [address] [id number] 10:39:00 Test Item Value Reference Range Interpretation Comments RPR SCREEN (BEAKER) (test code = Nonreactive Nonreactive 420) POCT-GLUCOSE [id number] 07:35:00 Test Item Value Reference Range Interpretation Comments POC-GLUCOSE METER 167 mg/dL 70-110 H TESTED AT [facility] 6720 (BEAKER) (test code = DOUGLAS Peña [place] 1538) [address] [id number] 07:35:00 Test Item Value Reference Range Interpretation Comments PHOSPHORUS (BEAKER) (test code = 2.9 mg/dL 2.3-4.7 604) [id number] 07:35:00 Test Item Value Reference Range Interpretation Comments MAGNESIUM (BEAKER) (test code = 1.8 mg/dL 1.6-2.6 627) BASIC METABOLIC [id number] 07:35:00 Test Item Value Reference Range Interpretation [...] NOT APPLICABLE FOR DIALYSIS PATIEN TS. PTH, [id number] 07:24:00 Test Item Value Reference Range Interpretation [...] code = 413) HEPATITIS B CORE ANTIBODY, [id number] 22:00:00 Test Item Value Reference Range Interpretation Comments HEPATITIS B CORE TOTAL ANTIBODY Nonreactive Nonreactive (BEAKER) (test code = 497) HEPATITIS PANEL, [id number] 22:00:00 Test Item Value Reference Range Interpretation Comments HEPATITIS A IGM ANTIBODY (BEAKER) Nonreactive Nonreactive (test code = 498) HEPATITIS B CORE IGM ANTIBODY Nonreactive Nonreactive (BEAKER) (test code = 645) HEPATITIS C ANTIBODY (BEAKER) Nonreactive Nonreactive (test code = 367) HEPATITIS B SURFACE ANTIGEN (2) Nonreactive Nonreactive (BEAKER) (test code = 2585) HIV-1 ANTIGEN WITH HIV-1/2 [id number] 22:00:00 Test Item Value Reference Range Interpretation Comments HIV-1 ANTIGEN WITH HIV 1\\T\\2 Nonreactive Nonreactive ANTIBODY (2) (BEAKER) (test code = 2586) HEPATITIS A ANTIBODY, [id number] 22:00:00 Test Item Value Reference Range Interpretation Comments HEPATITIS A IGG ANTIBODY (BEAKER) Nonreactive Nonreactive (test code = 2797) CREATININE, RANDOM [id number] 21:37:00 Test Item Value Reference Range Interpretation Comments CREATININE URINE (BEAKER) (test 150.2 mg/dL code = 375) Reference Range: No NormalsPROTEIN, RANDOM [id number] 21:37:00 Test Item Value Reference Range Interpretation Comments PROTEIN, URINE (BEAKER) (test code = 12 mg/dL 0-14 1569) [id number] 21:15:00 Test Item Value Reference Range Interpretation Comments PROSTATE SPECIFIC ANTIGEN (BEAKER) 1.0 ng/mL 0.0-4.0 (test code = 844) POCT-GLUCOSE [id number] 20:53:00 Test Item Value Reference Range Interpretation Comments POC-GLUCOSE METER 182 mg/dL 70-110 H TESTED AT [facility] 6720 (JOLEEN) (test code = [place] 1538) [address] T4, [id number] 20:33:00 Test Item Value Reference Range Interpretation Comments FREE T4 (BEAKER) (test code = 655) 1.27 ng/dL 0.70-1.48 [id number] 20:33:00 Test Item Value Reference Range Interpretation Comments FERRITIN (BEAKER) (test code = 361) 75 ng/mL 5-275 VITAMIN D, [id number] 20:32:00 Test Item Value Reference Range Interpretation Comments VITAMIN D 25-OH (BEAKER) (test 24.7 ng/mL 6.6-49.9 code = 2764) Effective 06/27/2017: Reference Range ChangeNew: 6.6-49.9 ng/mL Previous: 13.0- 47.8 ng/mLRecommendedVitamin D Target Range: 30.0-40.0 ng/mLTRANSFERRIN 2017-07-17 20:20:00 Test Item Value Reference Range Interpretation Comments TRANSFERRIN (BEAKER) (test code = 418 mg/dL 174-382 H 541) [id number] 20:17:00 Test Item Value Reference Range Interpretation Comments PREALBUMIN (BEAKER) (test code = 27 mg/dL 14-45 586) IRON, [id number] 20:17:00 Test Item Value Reference Range Interpretation Comments IRON (BEAKER) (test code = 547) 102 ug/dL 40-160 URIC [id number] 20:16:00 Test Item Value Reference Range Interpretation Comments URIC ACID (BEAKER) (test code = 8.3 mg/dL 2.6-7.2 H 773) [id number] 20:16:00 Test Item Value Reference Range Interpretation Comments PHOSPHORUS (BEAKER) (test code = 3.5 mg/dL 2.3-4.7 604) HEPATIC FUNCTION [id number] 20:16:00 Test Item Value Reference Range Interpretation [...] (test code = 17 U/L 6-55 347) [id number] 20:16:00 Test Item Value Reference Range Interpretation Comments AMYLASE (BEAKER) (test code = 349) 72 U/L 25-125 [id number] 20:16:00 Test Item Value Reference Range Interpretation [...] 222 U/L 125-220 H code = 635) [id number] 20:16:00 Test Item Value Reference Range Interpretation Comments LIPASE (BEAKER) (test code = 749) 43 U/L 8-78 RETICULOCYTE [id number] 19:56:00 Test Item Value Reference Range Interpretation Comments RETICULOCYTE COUNT PCT (BEAKER) (test 1.6 % 0.5-1.8 code = 575) CT, CHEST, WITHOUT [id number] 18:13:00FINAL REPORT CT of the Chest and [...] Date/Time: 07/17/2017 18:13:06 Reading Location: [facility] C0Y CT Body Reading Room CT, ABDOMEN, WITHOUT [id number] 18:13:00FINAL REPORT CT of the Chest and [...] Date/Time: 07/17/2017 18:13:06 Reading Location: [facility] C013Y CT Body Reading Room CT, BRAIN, WITHOUT [id number] 17:55:00FINAL REPORT CT Head without contrast CLINICAL [...] Small chronic right cerebellar infarct. Signed: Keo Simons Verified Date/Time: 07/17/2017 17:55:05 Reading Location: [facility] Radiology Reading Room POCT-GLUCOSE [id number] 14:27:00 Test Item Value Reference Range Interpretation Comments POC-GLUCOSE METER 121 mg/dL 70-110 H TESTED AT [place] [address] ([employer]) (test code = [place]OU[place] 1538) [address] POCT-GLUCOSE [id number] 07:28:00 Test Item Value Reference Range Interpretation Comments POC-GLUCOSE METER 158 mg/dL 70-110 H TESTED AT [place] [address] (BEAKER) (test code = D[place]AS [place] 1538) [address] [id number] 04:57:00 Test Item Value Reference Range Interpretation Comments MAGNESIUM (BEAKER) (test code = 1.6 mg/dL 1.6-2.6 627) BASIC METABOLIC [id number] 04:57:00 Test Item Value Reference Range Interpretation [...] 0-0 (BEAKER) (test code = 413) POCT-GLUCOSE [id number] 21:00:00 Test Item Value Reference Range Interpretation Comments POC-GLUCOSE METER 160 mg/dL 70-110 H [facility] AT [place] [address] [facility] (test code = [place] 1538) [address] POCT-GLUCOSE [id number] 17:10:00 Test Item Value Reference Range Interpretation Comments POC-GLUCOSE METER 148 mg/dL 70-110 H TESTED AT [place] [address] ([facility]) (test code = [place] 1538) [address] POCT-GLUCOSE [id number] 12:10:00 Test Item Value Reference Range Interpretation Comments POC-GLUCOSE METER 246 mg/dL 70-110 H TESTED AT [place] [address] ([facility]) (test code = [place] 1538) [address] POCT-GLUCOSE [id number] 08:32:00 Test Item Value Reference Range Interpretation Comments POC-GLUCOSE METER 186 mg/dL 70-110 H TESTED AT [place] [address] [facility] (test code = [place] 1538) [address] [id number] 06:35:00 Test Item Value Reference Range Interpretation Comments MAGNESIUM (BEAKER) (test code = 1.7 mg/dL 1.6-2.6 627) BASIC METABOLIC [id number] 06:35:00 Test Item Value Reference Range Interpretation [...] 0-0 (BEAKER) (test code = 413) POCT-GLUCOSE [id number] 20:53:00 Test Item Value Reference Range Interpretation Comments POC-GLUCOSE METER 228 mg/dL 70-110 H TESTED AT [facility] 6720 (BEAKER) (test code = DOUGLAS FAR[place] 1538) [address] POCT-GLUCOSE [id number] 17:06:00 Test Item Value Reference Range Interpretation Comments POC-GLUCOSE METER 194 mg/dL 70-110 H TESTED AT [facility] 6720 (BEAKER) (test code = DOUGLAS Peña [facility] 1538) [address] POCT-GLUCOSE [id number] 13:27:00 Test Item Value Reference Range Interpretation Comments POC-GLUCOSE METER 272 mg/dL 70-110 H TESTED AT [facility] 6720 (BEAKER) (test code = DOUGLAS Peña [facility] 1538) [address] POCT-GLUCOSE [id number] 09:14:00 Test Item Value Reference Range Interpretation Comments POC-GLUCOSE METER 172 mg/dL 70-110 H TESTED AT [facility] 6720 (BEAKER) (test code = DOUGLAS Peña [facility] 1538) [address] [id number] 07:37:00 Test Item Value Reference Range Interpretation Comments MAGNESIUM (BEAKER) (test code = 2.2 mg/dL 1.6-2.6 627) BASIC METABOLIC [id number] 07:37:00 Test Item Value Reference Range Interpretation [...] 0-0 (BEAKER) (test code = 413) POCT-GLUCOSE [id number] 21:21:00 Test Item Value Reference Range Interpretation Comments POC-GLUCOSE METER 315 mg/dL 70-110 H TESTED AT [place] [address] ([facility]) (test code = DOUGLAS Peña [facility] 1538) [address] POCT-GLUCOSE [id number] 17:03:00 Test Item Value Reference Range Interpretation Comments POC-GLUCOSE METER 171 mg/dL 70-110 H TESTED AT [place] [address] ([facility]) (test code = DOUGLAS Peña [place] 1538) [address] POCT-GLUCOSE [id number] 12:23:00 Test Item Value Reference Range Interpretation Comments POC-GLUCOSE METER 204 mg/dL 70-110 H TESTED AT [place] [address] ([facility]) (test code = DOUGLAS Peña [facility] 1538) [address] POCT-GLUCOSE [id number] 08:21:00 Test Item Value Reference Range Interpretation Comments POC-GLUCOSE METER 141 mg/dL 70-110 H TESTED AT [place] [address] (BEAKER) (test code = DOUGLSA [place] 1538) [address] CBC (HEMOGRAM ONLY)2017-07-14 06:15:00 Test Item Value [...] WBC 0-0 (BEAKER) (test code = 413) [id number] 03:28:00 Test Item Value Reference Range Interpretation Comments MAGNESIUM (BEAKER) (test code = 1.5 mg/dL 1.6-2.6 L 627) LIPID [id number] 03:28:00 Test Item Value Reference Range Interpretation [...] 130-159 High 160-189 Very High >=190BASIC METABOLIC [id number] 03:28:00 Test Item Value Reference Range Interpretation [...] S NOT APPLICABLE FOR DIALYSIS PATIEN TS. [id number] 02:36:00 Test Item Value Reference Range Interpretation Comments PARTIAL THROMBOPLASTIN TIME 25.9 seconds 22.5-36.0 (BEAKER) (test code = 760) POCT-GLUCOSE [id number] 22:55:00 Test Item Value Reference Range Interpretation Comments POC-GLUCOSE METER 206 mg/dL 70-110 H TESTED AT [facility] 6720 (BEAKER) (test code = DOUGLAS Peña [place] 1538) [address] [id number] 18:22:00 Test Item Value Reference Range Interpretation Comments PARTIAL THROMBOPLASTIN TIME 41.6 seconds 22.5-36.0 H (BEAKER) (test code = 760) CREATINE KINASE (CK), TOTAL AND [id number] 12:57:00 Test Item Value Reference Range Interpretation Comments CREATINE KINASE TOTAL (BEAKER) 142 U/L 29-200 (test code = 380) CREATINE KINASE-MB (BEAKER) (test 5.3 ng/mL 0.0-6.6 code = 750) CREATINE KINASE-MB INDEX ([facility]) 3.7 % (test code = 395) CK-MB Reference Range:<6.7 Normal6.7-10.0 Borderline>10.0 AbnormalTROPONIN [id number] 12:55:00 Test Item Value Reference Range Interpretation Comments TROPONIN I ([facility]) (test code = 0.11 ng/mL 0.00-0.03 H [...] acidosis, acute neurological disease, and persistent tachyarrhythmia.POCT-GLUCOSE [id number] 11:57:00 Test Item Value Reference Range Interpretation Comments POC-GLUCOSE METER 105 mg/dL 70-110 TESTED AT [facility] 6720 ([facility]) (test code = [place] 1538) [address] HEMOGLOBIN [id number] 10:45:00 Test Item Value Reference Range Interpretation Comments HEMOGLOBIN A1C (JOLEEN) (test code = 7.1 % 4.3-6.1 H 368) TSH/FREE T4 IF [id number] 09:41:00 Test Item Value Reference Range Interpretation Comments THYROID STIMULATING HORMONE 1.16 uIU/mL 0.35-4.94 ([facility]) (test code = 772) U/S, RENAL, [id number] 09:15:00Reason for exam:->AKIFINAL REPORT Ultrasound of the [...] Trejoort Verified Date/Time: 07/13/2017 09:15:34 Reading Location: [address] Ultrasound Reading Room APTT 2017-07-13 08:56:00 Test Item Value Reference Range Interpretation Comments PARTIAL THROMBOPLASTIN TIME 27.7 seconds 22.5-36.0 (BEAKER) (test code = 760) Prior to initiating heparinPLATELET [id number] 08:51:00 Test Item Value Reference Range Interpretation Comments PLATELET COUNT (BEAKER) (test 183 K/CU MM 150-450 code = 756) URINALYSIS W/ [id number] 08:45:00 Test Item Value Reference Range Interpretation [...] code = 516) SOURCE(BEAKER) (test code = 5482) POCT-GLUCOSE [id number] 07:58:00 Test Item Value Reference Range Interpretation Comments POC-GLUCOSE METER 186 mg/dL 70-110 H TESTED AT [facility] 6720 (BEAKER) (test code = DOUGLAS ICD [place] 1538) [address] RAPID DRUG SCREEN, [id number] 07:31:00 Test Item Value Reference Range Interpretation [...] situations. Chain of custody not maintained. Some urss-ser-jiozkbo medications, as well as adulterants, may cause inaccurate results. Clinical correlation should be applied. [place] comprehensive drug screen or confirmation of a detected drug may be performed upon request.CREATININE, RANDOM [id number] 07:25:00 Test Item Value Reference Range Interpretation Comments CREATININE URINE (BEAKER) (test 39.7 mg/dL code = 375) Reference Range: No NormalsSODIUM, RANDOM [id number] 07:25:00 Test Item Value Reference Range Interpretation Comments SODIUM URINE (BEAKER) (test code = 95 meq/L 243) Reference Range: No NormalsCREATINE KINASE (CK), TOTAL AND [id number] 07:05:00 Test Item Value Reference Range Interpretation Comments CREATINE KINASE TOTAL (BEAKER) 101 U/L 29-200 (test code = 380) CREATINE KINASE-MB (BEAKER) (test 3.8 ng/mL 0.0-6.6 code = 750) CREATINE KINASE-MB INDEX (BEAKER) 3.8 % (test code = 395) CK-MB Reference Range:<6.7 Normal6.7-10.0 Borderline>10.0 AbnormalTROPONIN [id number] 07:05:00 Test Item Value Reference Range Interpretation [...] and persistent tachyarrhythmia.RAD, CHEST, 1 VIEW, NON [id number] 01:09:00Reason for exam:->SHORTNESS OF BREATHShould this be [...] available for dictation secondary to technical issues ([facility] downtime). Signed: Thomas Mock Verified Date/Time: 07/13/2017 01:09:11 Reading Location: [address] Reading Room CREATINE KINASE (CK), TOTAL AND [id number] 00:42:00 Test Item Value Reference Range Interpretation Comments CREATINE KINASE TOTAL (BEAKER) 66 U/L 29-200 (test code = 380) CREATINE KINASE-MB (BEAKER) (test 2.1 ng/mL 0.0-6.6 code = 750) CREATINE KINASE-MB INDEX (BEAKER) 3.2 % (test code = 395) CK-MB Reference Range:<6.7 Normal6.7-10.0 Borderline>10.0 AbnormalTROPONIN [id number] 00:42:00 Test Item Value Reference Range Interpretation [...] acute neurological disease, and persistent tachyarrhythmia.BASIC METABOLIC [id number] 00:40:00 Test Item Value Reference Range Interpretation [...] = 700) CBC W/PLT COUNT & AUTO [id number] 00:16:00 Test Item Value Reference Range Interpretation [...]
[2022-07-13] MEDS ORDERED: NA CHLORIDE 0.9% 500 ML ONE (09:17)
[2022-07-13] MEDS ORDERED: NA CHLORIDE 0.9% 1,000 ML ONE (09:17)
[2022-07-13 09:57] LABS: Protime INR 1.49
[2022-07-13 09:58] LABS: Hematocrit 37.4 % (39.6-49.0); Lymphocytes % 15.6 % (15.3-44.8); MCV 87.4 fL (80-100); MPV 7.7 fL (7.6-11.3); RBC Red Blood Cell Count 4.28 M/uL (4.33-5.43)
--- NOTE | 2022-07-13 10:09 | RAD REPORT ---
EXAM DESCRIPTION: RAD - Chest Single View - 07/13/2022 9:59 am CLINICAL HISTORY: COUGH COMPARISON: Chest Single View dated 05/30/2022; Chest Single View dated 04/20/2022; Chest Single View d ated 03/18/2022; Chest Pa And Lat (2 Views) dated 12/09/2021 FINDINGS: Lines: Pacemaker/ICD. Lungs: No evidence of edema or pneumonia. Pleural: No significant pleural effusions or pneumothorax. Cardiac: Stable size and configuration. Sternotomy. Mediastinum: Within normal limits. Bones: No acute fractures. Right shoulder arthroplasty. Other: None IMPRESSION: No acute cardiopulmonary disease.
[2022-07-13 10:12] LABS: Albumin 3.5 g/dL (3.4-5.0); Bilirubin Direct 0.1 mg/dL (0-0.2); Bilirubin Total 0.4 mg/dL (0.2-1.0); Magnesium 2.4 mg/dL (1.8-2.4); Potassium 5.3 mmol/L (3.5-5.1); Protein, Total 6.9 g/dL (6.4-8.2); Troponin High Sensitivity 39.5 pg/mL (<58.9)
[2022-07-13] MEDS ORDERED: SOD POLYSTYREN SUL 15 GM/60 ML UCUP ONE (10:22)
--- NOTE | 2022-07-13 10:50 | RAD REPORT ---
[facility] DES[facility] - 07/13/2022 10:27 am CLINICAL HISTORY: FLANK PAIN COMPARISON: <Comparisons> TECHNIQUE: CT of the abdomen and pelvis was performed. All CT scans are performed using dose optimization technique as appropriate and may include automated exposure control or mA/KV adjustment according to patient size. FINDINGS: Lower chest: No acute abnormality. Pacemaker. Cardiomegaly. Liver: Too small to characterize low-density lesion in the hepatic dome is likely benign. Biliary: No biliary ductal dilatation. Stomach: No significant focal abnormality. Duodenum: No significant focal abnormality. Pancreas: No significant abnormality. Spleen: No significant abnormality. Adrenal: No suspicious lesions. Kidney/ureter: No hydronephrosis. Sub mm stone in lower pole left kidney. Retroperitoneum: No retroperitoneal adenopathy. Vascular: No aneurysm. Aortoiliac stent. Bowel: No significant focal abnormality. Normal appendix . Peritoneum: No ascites or free air. Bladder: Grossly unremarkable. Reproductive: No adnexal masses. Bones: No acute fracture. Multilevel degenerative changes are present in the spine. Other: n/a IMPRESSION: No acute intra-abdominal or pelvic finding. Nonobstructing stone in the left kidney.
[2022-07-13 10:54] LABS: Blood Morphology Comment NOT SEEN (NOT SEEN); Platelet Estimate ADEQ
--- NOTE | 2022-07-13 13:22 | EDPHYS ---
Physician Documentation [facility] Name: Han Hyde Age: 72 yrs Sex: Male : 1950 Arrival Date: 07/13/2022 Time: 08:38 Bed 14 Private MD: HAY Physician Matthieu Walker HPI: 07/13 12:35 This 72 yrs old Male presents to ER via Ambulatory with complaints of laure Abnormal Lab Results. 12:35 NO COMPLAINTS, SENT FOR ELEVATED POTASSIUM. Onset: The symptoms/episode began/occurred laure 3 day(s) ago. Severity of symptoms: At their worst the symptoms were mild in the emergency department the symptoms are unchanged. The patient has not experienced similar symptoms in the past. Historical: - Allergies: 09:06 Demerol; ph 09:06 Lisinopril; ph 09:06 Xarelto; ph - PMHx: 09:06 diabetes mellitus; Hypertensive disorder; ph - PSHx: 09:06 heart stent; pacemaker right side; R shoulder replacement; triple bypass; ph - Immunization history:: Adult Immunizations up to date. - Social history:: Smoking status: Patient denies any tobacco usage or history of. ROS: 12:35 Constitutional: Negative for fever, chills, and weight loss, Eyes: Negative for injury, laure pain, redness, and discharge, ENT: Negative for injury, pain, and discharge, Neck: Negative for injury, pain, and swelling, Cardiovascular: Negative for chest pain, palpitations, and edema, Respiratory: Negative for shortness of breath, cough, wheezing, and pleuritic chest pain, Abdomen/GI: Negative for abdominal pain, nausea, vomiting, diarrhea, and constipation, Back: Negative for injury and pain, : Negative for injury, bleeding, discharge, and swelling, MS/Extremity: Negative for injury and deformity, Skin: Negative for injury, rash, and discoloration, Neuro: Negative for headache, weakness, numbness, tingling, and seizure, Psych: Negative for depression, anxiety, suicide ideation, homicidal ideation, and hallucinations, Allergy/Immunology: Negative for hives, rash, and allergies, Endocrine: Negative for neck swelling, polydipsia, polyuria, polyphagia, and marked weight changes, Hematologic/Lymphatic: Negative for swollen nodes, abnormal bleeding, and unusual bruising. Exam: 12:35 Constitutional: This is a well developed, well nourished patient who is awake, alert, laure and in no acute distress. Head/Face: Normocephalic, atraumatic. Eyes: Pupils equal round and reactive to light, extra-ocular motions intact. Lids and lashes normal. Conjunctiva and sclera are non-icteric and not injected. Cornea within normal limits. Periorbital areas with no swelling, redness, or edema. ENT: Nares patent. No nasal discharge, no septal abnormalities noted. Tympanic membranes are normal and external auditory canals are clear. Oropharynx with no redness, swelling, or masses, exudates, or evidence of obstruction, uvula midline. Mucous membranes moist. Neck: Trachea midline, no thyromegaly or masses palpated, and no cervical lymphadenopathy. Supple, full range of motion without nuchal rigidity, or vertebral point tenderness. No Meningismus. Chest/axilla: Normal chest wall appearance and motion. Nontender with no deformity. No lesions are appreciated. Cardiovascular: Regular rate and rhythm with a normal S1 and S2. No gallops, murmurs, or rubs. Normal PMI, no JVD. No pulse deficits. Respiratory: Lungs have equal breath sounds bilaterally, clear to auscultation and percussion. No rales, rhonchi or wheezes noted. No increased work of breathing, no retractions or nasal flaring. Abdomen/GI: Soft, non-tender, with normal bowel sounds. No distension or tympany. No guarding or rebound. No evidence of tenderness throughout. Back: No spinal tenderness. No costovertebral tenderness. Full range of motion. Male : Normal genitalia with no discharge or lesions. Skin: Warm, dry with normal turgor. Normal color with no rashes, no lesions, and no evidence of cellulitis. MS/ Extremity: Pulses equal, no cyanosis. Neurovascular intact. Full, normal range of motion. Neuro: Awake and alert, GCS 15, oriented to person, place, time, and situation. Cranial nerves II-XII grossly intact. Motor strength 5/5 in all extremities. Sensory grossly intact. Cerebellar exam normal. Normal gait. Psych: Awake, alert, with orientation to person, place and time. Behavior, mood, and affect are within normal limits. Vital Signs: 09:02 BP 117 / 59; Pulse 66; Resp 18; Temp 97.6; Pulse Ox 100% on R/A; Weight 88.9 kg; Height ph 5 ft. 4 in. (162.56 cm); 09:30 BP 95 / 59; Pulse 60; Resp 16; Pulse Ox 99% ; Pain 0/10; ko1 11:00 BP 115 / 62; Pulse 60; Resp 16; Pulse Ox 95% ; ko1 12:28 BP 110 / 59; Pulse 60; Pulse Ox 97% ; ko1 13:35 BP 110 / 62; Pulse 60; Pulse Ox 98% ; ko1 09:02 Body Mass Index 33.64 (88.90 kg, 162.56 cm) ph MDM: 08:42 Patient medically screened. [facility] 07/13 09:14 Order name: Basic Metabolic Panel; Complete Time: 10:14 [facility] 07/13 09:14 Order name: CBC with Diff; Complete Time: 11:03 [facility] 07/13 09:14 Order name: LFT's; Complete Time: 10:14 [facility] 07/13 09:14 Order name: Magnesium; Complete Time: 10:14 [facility] 07/13 09:14 Order name: NT PRO-BNP; Complete Time: 10:14 [facility] 07/13 09:14 Order name: PT-INR; Complete Time: 09:59 [facility] 07/13 09:14 Order name: Troponin HS; Complete Time: 10:14 [facility] 07/13 09:14 Order name: XRAY Chest (1 view); Complete Time: 10:11 [facility] 07/13 10:29 Order name: Stone Protocol; Complete Time: 11:03 EDMS 07/13 10:54 Order name: Manual Differential; Complete Time: 11:03 EDMS 07/13 11:05 Order name: Digoxin; Complete Time: 12:32 em1 07/13 09:14 Order name: EKG; Complete Time: 09:15 [facility] 07/13 09:14 Order name: Cardiac monitoring; Complete Time: 09:15 [facility] 07/13 09:14 Order name: EKG - Nurse/Tech; Complete Time: 09:33 [facility] 07/13 09:14 Order name: IV Saline Lock; Complete Time: 09:52 [facility] 07/13 09:14 Order name: Labs collected and sent; Complete Time: 09:52 [facility] 07/13 09:14 Order name: O2 Per Protocol; Complete Time: 09:15 [facility] 07/13 09:14 Order name: O2 Sat Monitoring; Complete Time: 09:15 laure Administered Medications: 09:52 Drug: NS 0.9% 500 ml Route: IV; Rate: bolus; Site: left antecubital; ko1 10:18 Drug: NS 0.9% 1000 ml Route: IV; Rate: 125 ml/hr; Site: left antecubital; ko1 10:24 Drug: Kayexalate (polystyrene) 30 grams Route: PO; ko1 Disposition Summary: 07/13/22 13:21 Discharge Ordered Location: Home laure Problem: an ongoing problem laure Symptoms: are unchanged laure Condition: Stable laure Diagnosis - Hyperkalemia laure - Poisoning by cardiac-stimulant glycosides and drugs of similar action, accidental laure (unintentional), initial encounter - DIGOXIN - Unspecified kidney failure - CHRONIC laure Followup: laure - With: Private Physician - When: 1 - 2 days - Reason: Recheck today's complaints, Continuance of care, Re-evaluation by your physician Followup: laure - With: - When: 1 - 2 days - Reason: Recheck today's complaints, Continuance of care, Re-evaluation by your physician Discharge Instructions: - Discharge Summary Sheet laure - Digoxin Toxicity laure - Hyperkalemia laure - Hyperkalemia, [id number] laure - Accidental Drug Poisoning, Adult laure - Acute Kidney Injury, Adult laure - Chronic Kidney Disease, Adult, [id number] laure - Chronic Drug Toxicity laure Forms: - Medication Reconciliation Form laure - Thank You Letter laure - Antibiotic Education laure - Prescription Opioid Use laure Prescriptions: - Lokelma 10 gram Oral powder in packet - take 1 packet by ORAL route once daily rinse glass with water and drink for laure full dose; 20 packet; Refills: 0, Product Selection Permitted Signatures: Dispatcher [employer] EDMS Matthieu Walker MD MD cha Hall, Patricia RN RN Alba Graf, RILEY RN ko1 Corrections: (The following items were deleted from the chart) 10: 10:18 Stone Protocol+CT.RAD.BRZ ordered. EDMS EDMS 10: 10:08 CT-STROKE BRAIN W/O CONTRAST+CT.RAD.BRZ ordered. EDMS EDMS
--- NOTE | 2022-07-13 13:22 | ER ---
Nurse's Notes [facility] Name: Han Hyde Age: 72 yrs Sex: Male : 1950 Arrival Date: 07/13/2022 Time: 08:38 Bed 14 Private MD: Diagnosis: Hyperkalemia;Poisoning by cardiac-stimulant glycosides and drugs of similar action, accidental (unintentional), initial encounter-DIGOXIN;Unspecified kidney failure-CHRONIC Presentation: 07/13 09:02 Chief complaint: Patient states: Sent by surg nurse for high K+, on 07/10 is was 5.6 ph and on 07/12 was 5.8, denies chest pain or palpitaions. Coronavirus screen: Vaccine status: Patient reports receiving the 2nd dose of the covid vaccine. Ebola Screen: No symptoms or risks identified at this time. Initial Sepsis Screen: Does the patient meet any 2 criteria? No. Patient's initial sepsis screen is negative. Does the patient have a suspected source of infection? No. Patient's initial sepsis screen is negative. Risk Assessment: Do you want to hurt yourself or someone else? Patient reports no desire to harm self or others. Onset of symptoms was July 13, 2022. 09:02 Method Of Arrival: Ambulatory ph 09:02 Acuity: RAUL 3 ph Historical: - Allergies: 09:06 Demerol; ph 09:06 Lisinopril; ph 09:06 Xarelto; ph - PMHx: 09:06 diabetes mellitus; Hypertensive disorder; ph - PSHx: 09:06 heart stent; pacemaker right side; R shoulder replacement; triple bypass; ph - Immunization history:: Adult Immunizations up to date. - Social history:: Smoking status: Patient denies any tobacco usage or history of. Screenin:30 Abuse screen: Denies threats or abuse. Denies injuries from another. Nutritional ko1 screening: No deficits noted. Tuberculosis screening: No symptoms or risk factors identified. Fall Risk None identified. Assessment: 09:30 General: Appears in no apparent distress. comfortable, Behavior is calm, cooperative, ko1 appropriate for age. Pain: Denies pain. Neuro: No deficits noted. Cardiovascular: No deficits noted. Respiratory: No deficits noted. GI: No deficits noted. : No deficits noted. EENT: No deficits noted. Derm: No deficits noted. Musculoskeletal: No deficits noted. Vital Signs: 09:02 BP 117 / 59; Pulse 66; Resp 18; Temp 97.6; Pulse Ox 100% on R/A; Weight 88.9 kg; Height ph 5 ft. 4 in. (162.56 cm); 09:30 BP 95 / 59; Pulse 60; Resp 16; Pulse Ox 99% ; Pain 0/10; ko1 11:00 BP 115 / 62; Pulse 60; Resp 16; Pulse Ox 95% ; ko1 12:28 BP 110 / 59; Pulse 60; Pulse Ox 97% ; ko1 13:35 BP 110 / 62; Pulse 60; Pulse Ox 98% ; ko1 09:02 Body Mass Index 33.64 (88.90 kg, 162.56 cm) ph ED Course: 08:38 Patient arrived in ED. rg4 08:42 Matthieu Walker MD is Attending Physician. [facility] [place] [facility] 09:06 Triage completed. ph 09:06 Arm band placed on. ph 09:11 Alba Epps, RN is Primary Nurse. ko1 09:30 Patient has correct armband on for positive identification. Placed in gown. Bed in low ko1 position. Call light in reach. Side rails up X 1. 09:30 Client placed on continuous cardiac and pulse oximetry monitoring. NIBP monitoring ko1 applied. 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 09:30 Inserted saline lock: 20 gauge in left antecubital area, using aseptic technique. Blood ko1 collected. 09:52 Basic Metabolic Panel Sent. ko1 09:52 CBC with Diff Sent. ko1 09:52 LFT's Sent. ko1 09:52 Magnesium Sent. ko1 09:52 NT PRO-BNP Sent. ko1 09:52 PT-INR Sent. ko1 09:52 Troponin HS Sent. ko1 10:00 XRAY Chest (1 view) In Process Unspecified. EDMS 10:29 Stone Protocol In Process Unspecified. EDMS 12:28 No provider procedures requiring assistance completed. IV discontinued, intact, ko1 bleeding controlled, No redness/swelling at site. Pressure dressing applied. 13:21 Abran Cowart DO is Referral Physician. laure Administered Medications: 09:52 Drug: NS 0.9% 500 ml Route: IV; Rate: bolus; Site: left antecubital; ko1 10:18 Drug: NS 0.9% 1000 ml Route: IV; Rate: 125 ml/hr; Site: left antecubital; ko1 10:24 Drug: Kayexalate (polystyrene) 30 grams Route: PO; ko1 Medication: 12:28 VIS not applicable for this client. ko1 Intake: 11:26 PO: 240ml (Water); IV: 500ml; Total: 740ml. ko1 12:15 PO: 240ml (Soft Drink); Total: 980ml. ko1 13:00 IV: 350ml (IV Fluid); Total: 1330ml. ko1 Output: 11:26 Urine: 600ml (Voided); Total: 600ml. ko1 12:15 Urine: 600ml (Voided); Total: 1200ml. ko1 Outcome: 13:21 Discharge ordered by . laure 13:35 Discharged to home ambulatory. ko1 13:35 Condition: stable 13:35 Discharge instructions given to patient, Instructed on discharge instructions, follow up and referral plans. medication usage, Demonstrated understanding of instructions, follow-up care, medications, Prescriptions given X 1. 13:36 Patient left the ED. ko1 Signatures: Dispatcher [employer] EDPR Matthieu Walker MD MD cha Hall, Patricia, RN RN Che Francois rg4 Alba Epps, RN RN ko1
[2022-07-13 13:45] VITALS: TEMP 97.6
[2022-07-13 13:50] VITALS: BP 110/62; O2SAT 98
== END 2022-07-13 13:36 | disposition home or self-care (01) ==
LOC: ER 08:34
DX: E87.5 Hyperkalemia (principal); T46.0X1A Poisoning by cardiac-stimulant glycosides and drugs of similar action, accidental (unintentional), initial encounter; E11.22 Type 2 diabetes mellitus with diabetic chronic kidney disease; I12.9 Hypertensive chronic kidney disease with stage 1 through stage 4 chronic kidney disease, or unspecified chronic kidney disease; N18.9 Chronic kidney disease, unspecified; Z95.1 Presence of aortocoronary bypass graft; Z95.0 Presence of cardiac pacemaker; Z88.5 Allergy status to narcotic agent; Z88.8 Allergy status to other drugs, medicaments and biological substances
CPT/HCPCS: 93005; 85025; 80048; 36415; 83735; 85610; 80162; 80076; 84484; 83880; 76377; 74176; 71045; 99284; J7040; J7030

== ENCOUNTER 2023-01-10 04:00 | Emergency (ER) | payer OTHER ==
[2023-01-10 04:19] LABS: Arterial Blood Carboxyhemoglob 2.7 % (0-1.5); Blood Gas Oxyhemoglobin 93.6 % (94-97); Blood O2 Saturation 97.4 % (92-98.5)
--- OUTSIDE RECORDS SUMMARY | 2023-01-10 04:28 | XMS REPORT | Continuity of Care Document ---
:1950 Author Organization [facility] t Address [address] [facility]. [address] [place] [address] Care Team Providers Name Role Phone Kennedi Ford MD Primary Care Physician Paula Guzman Attending Clinician Unavailable SALVADOR MANJARREZ Attending Clinician Unavailable VETO UGARTE Attending Clinician Unavailable LATASHA MERLOS Attending Clinician Unavailable Juan Antonio COLEMAN, Daphne Lin Attending Clinician Christelle COLEMAN, Dipika Farris Attending Clinician [phone] Merchant COLEMAN, Angel Alberto Attending Clinician [phone] Derik Candelario MD Attending Clinician Dalton COLEMAN, Lucas Fierro Attending Clinician [phone] Latasha Merlos MD Attending Clinician Seng Nuñez MD Attending Clinician Chan Maza Attending Clinician Unavailable Bree Parsons Attending Clinician Unavailable DAPHNE GUILLAUME Attending Clinician Unavailable Inessa COLEMAN, Troy Anthony Attending Clinician [phone] Priscilla PLATE KEEPER, Vida Attending Clinician Practitioner, Cardio [facility] 1901 Nurse Attending Clinicia n Unavailable Laura Rice MA Attending Clinician Unavailable Latasha Singh Attending Clinician Unavailable Rk LIN, Gabriele Attending Clinician Unavailable Melo COLEMAN, Georgina Attending Clinician LUCERO MCKINNEY Attending Clinician Unavailable Serg COLEMAN, Nitin Evans Attending Clinician Lala Mendenhall CRNA Attending Clinician Rajan Dale MD Attending Clinician Ge COLEMAN, Sara Webb Attending Clinician Alba CRATER AND PACKER, Yolanda Villagomez Attending Clinician [phone] Carol Ware MD Attending Clinician Patricia Tomlinson RN Attending Clinician Unavailable MD ANDRÉS BERMAN Attending Clinician Unavailable Delma Swift RN Attending Clinician Unavailable Keyonna Yeung RN Attending Clinician Unavailable TERRELL LOPEZ Attending Clinician Unavailable Salomon Pastor Attending Clinician Terrell Lopez MD Attending Clinician Jasiel Khoury MA Attending Clinician Unavailable Salomon MEYER Attending Clinician Unavailable Mathew Mascorro MD Attending Clinician Kathy Pena NP Attending Clinician Marysol Dunlap MA Attending Clinician Unavailable Christiana Stoddard RN Attending Clinician Unavailable Tyson GOLDEN, Mariam Attending Clinician [phone] Oksana Lopez MD Attending Clinician Toyin LIN, Val Attending Clinician Unavailable Evangelista COLEMAN, Angely English Attending Clinician Sy Rae NP, Irma Attending Clinician Melba Jo MA Attending Clinician Unavailable Thalia COLEMAN, Dusty Mullen Attending Clinician [phone] Sera Satnos MD Attending Clinician Arvind Bejarano MA Attending Clinician Unavailable ABBEY HICKS Attending Clinician Unavailable Brandt Corrales MD Attending Clinician MD KRYSTAL HERNANDEZ Attending Clinician Unavailable SALVADOR MANJARREZ Attending Clinician Unavailable SALVADOR MANJARREZ M.D. Attending Clinician Unavailable JW BOB Attending Clinician Unavailable KEO AGUILAR Attending Clinician Unavailable MARY BOYLE Attending Clinician Unavailable WILY LINARES Attending Clinician Unavailable SAUL TARIQ Attending Clinician Unavailable DAPHNE GUILLAUME Admitting Clinician Unavailable ANDRÉS BERMAN Admitting Clinician Unavailable TERRELL LOPEZ Admitting Clinician Unavailable Terrell Lopez MD Admitting Clinician LUCERO MCKINNEY Admitting Clinician Unavailable Salomon MEYER Admitting Clinician Unavailable TROY PADILLA Admitting Clinician Unavailable KRYSTAL HERNANDEZ Admitting Clinician Unavailable Brandt Corrales MD Admitting Clinician MD KRYSTAL HERNANDEZ Admitting Clinician Unavailable JW BOB Admitting Clinician Unavailable GEORGINA DOMINGUEZ Admitting Clinician Unavailable VIRGINIA NEAL Admitting Clinician Unavailable Payers Payer Name Policy Type Policy Number Effective Date Expiration Date S ource AETNA MEDICARE [facility] 2016 PPO 00:00:00 [employer]NA MEDICARE [id number] 2022 HMO POS 00:00:00 [employer]ET[employer] MEDICARE 53 [id number] 2016 Common Spi rit 00:00:[address] - [facility] MEDICARE MB [id number] 2015 [facility] NOVITAS 00:00:[address] - [facility] Problems Condition Condition Condition Status Onset Resolution Last Treating Co mments Source Name Details Category Date Date Treatment Clinician Date PAD PAD Disease Recurre [facility] (periphera (periphera nce 4-25 [facility] l artery l artery 00:00: Medica l disease) disease) 00 Center CHF CHF Disease Recurre [facility] (congestiv (congestiv nce 3-30 [facility] k[facility] e heart e heart 00:00: Medical failure) failure) 00 Center Acute on Acute on Disease Recurre [facility] chronic chronic nce 3-30 kes HFrEF HFrEF 00:00: Medical (heart (heart 00 Center failure failure with with reduced reduced ejection ejection fraction) fraction) Acute Acute Disease Active Methodi decompensa decompensa 2-28 st domenico heart domenico heart 00:00: Hosp chau failure failure 00 l Acute on Acute on Disease Active Unive rs chronic chronic 1-25 ity of combined combined 00:00: [place] systolic systolic 00 Medica l (congestiv (congestiv Br anch e) and e) and diastolic diastolic (congestiv (congestiv e) heart e) heart failure failure Coronary Coronary Disease Active Unive rs artery artery 1-25 ity of disease disease 00:00: [place] involving involving 00 Medi jordin [place] Branch coronary coronary artery of artery of [place] heart heart without without angina angina pectoris pectoris Troponin I Troponin I Disease Active U nivers above above 1-25 [place] of reference reference 00:00[place] range range 00 [place] Branch PAF PAF Disease Active Univers (paroxysma (paroxysma 1-25 it y of l atrial l atrial 00:00: [place] fibrillati fibrillati 00 Me dical on) on) Branch Primary Primary Disease Active Univers hypertensi hypertensi 1-25 it y of on on 00:00: [place] 00 Medical Branch Stage 4 Stage 4 Disease Active Univers chronic chronic 1-25 ity of kidney kidney 00:00: [place] disease disease 00 Medical Branch ICD ICD Disease Active Univers (implantab (implantab 1-25 it y of le le 00:00: [place] cardiovert cardiovert 00 Me dical er-defibri er-defibri Br anch llator) in llator) in place place MELINDA MELINDA Disease Active Univers (obstructi (obstructi 1-25 it y of ve sleep ve sleep 00:00: [place] apnea) apnea) 00 Medical Branch NSVT NSVT Disease Active Univers (nonsustai (nonsustai 1-25 it y of cecy cecy 00:00: [place] ventricula ventricula 00 Me dical r r Branch tachycardi tachycardi a) a) HLD HLD Disease Active Univers (hyperlipi (hyperlipi 1-25 it y of demia) demia) 00:00: [place] 00 Medical Branch SOB SOB Disease Active Methodi (shortness (shortness 1-06 st of breath) of breath) 00:00: Ho spita 00 l Heart Heart Disease Active 2021-09 Methodi failure failure 2-08 st 00:00: Hospita 00 l Acute Acute Disease Active 2021-09 Methodi renal renal 0-31 st failure failure 00:00: Hospita (ARF) (ARF) 00 l Essential Essential Disease Active 2021-09 Met hodi hypertensi hypertensi 0-31 st on on 00:00: Hospita 00 l Other Other Disease Active 2021-09 Methodi hyperlipid hyperlipid 0- st emia emia 00:00: Hospita 00 l Obesity Obesity Disease Active 2021-09 Methodi (BMI (BMI 0-31 st 30-39.9) 30-39.9) 00:00: Hospit a 00 l Vitamin D Vitamin D Disease Active 2021-09 Met hodi deficiency deficiency 0- st 00:00: Hospita 00 l PAD PAD Disease Active Overview: Method i (periphera (periphera 04-[address] l artery l artery 00:00: g of this Hos chloe disease) disease) 00 note l might be different from the original. Added automatic ally from request for surgery [id number] Claudicati Claudicati Disease Active Overview : Methodi on on 04-[address] 00:00: g of this Hospita 00 note l might be different from the original. Added automatic ally from request for surgery [id number] Aortoiliac Aortoiliac Disease Active M ethodi obstructio [...] Disease Active Overview: Me thodi artery artery 8-[address] disease disease 00:00: g of this Hospi ta involving involving 00 note l [place] might be coronary coronary different artery artery from the original. Added automatic ally from request for surgery [id number] Coronary Coronary Disease Active Overview: Me thodi artery artery 8-[address] disease disease 00:00: g of this Hospi ta involving involving 00 note l [place] might be coronary coronary different artery artery from the original. Added automatic ally from request for surgery [id number] Chronic Chronic Disease Active Methodi kidney kidney 03-17 st disease, disease, 00:00: Hospit a stage 3b stage 3b 00 l MELINDA on MELINDA on Disease Active Methodi CPAP CPAP 03-17 00:00: Hospita 00 l Sleep Sleep Disease Active Methodi disorder disorder 05-23 due to a due to a 00:00: Hospit a general general 00 l medical medical condition, condition, insomnia insomnia type type Unstable Unstable Disease Active Metho di angina angina 906 st 00:00: Hospita 00 l Acute on Acute on Disease Active Overview: Me thodi chronic chronic 04-[address] combined combined 00:00: g of this Hos chloe systolic systolic 00 note l and and might be diastolic diastolic different congestive congestive from the heart heart original. 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 Doing excellent . Defers MRx.OTC readers. Coronary Coronary Disease Recurre 2016-09 Overview: C HI [facility] artery artery nce 10-08 [facility] disease disease 00:00: g of this Medic al involving involving 00 note Cent er [place] might be coronary coronary different artery artery from the original. S/p CABG Paroxysmal Paroxysmal Disease Recurre 2016-[address] atrial atrial nce 10-08 [facility] fibrillati fibrillati 00:00: Me dical on on 00 Center COPD COPD Disease Recurre 2016-[address] (chronic (chronic nce 10-08 [facility] obstructiv obstructiv 00:00: Me dical e e 00 Center pulmonary pulmonary disease) disease) Coronary Coronary Disease Recurre 2016-09 Overview: C HI [facility] artery artery nce 10-08 [facility]in [facility] disease disease 00:00: g of this Medic al involving involving 00 note Cent er [place] might be coronary coronary different artery artery from the original. S/p CABG Stage 3 Stage 3 Disease Recurre 2016-[address] chronic chronic nce 10-08 [facility] kidney kidney 00:00: Medical disease disease 00 Center Chronic Chronic Disease Recurre 2016-09 Overview: [facility] combined combined nce Formattin Flynn es systolic systolic 00:00: g of this Med ical and and 00 note Center diastolic diastolic might be CHF CHF different (congestiv (congestiv from the e heart e heart original. failure) failure) S/p AICD Smoker Smoker Disease Recurre 2016-[address] nce [facility] 00:00: Medical 00 Center Type 2 Type 2 Disease Recurre 2016-[address] diabetes diabetes nce [facility]ukes mellitus mellitus 00:00: Medica l 00 Center Diabetes Diabetes Disease Active 2016-09 Last Metho di mellitus mellitus 0-[address] without without 00:00: t & Plan: Hospi ta complicati complicati 00 Formattin l on on g of this note might be different from the original. No diabetic retinopat hy. Importanc e of good blood sugar control discussed . Annual exams [facility]. Letter sent Dr. Paula Guzman. Occluded Occluded Disease Active Metho di coronary coronary 05-26 st artery artery 00:00: Hospita stent stent 00 l Shortness Shortness Disease Active Met hodi of breath of breath 05-26 st 00:00: Hospita 00 l Cardiomyop Cardiomyop Disease Recurre [facility] athy athy nce 05-26 [facility] 00:00: Medical 00 Center Combined Combined Disease Recurre Overview: C HI St form of form of nce 05-26 [facility] senile senile 00:00: g of this Medical cataract cataract 00 note Center might be different from the original. Last Assessmen t & Plan: Visually significa nt. The risks/manjit efits/alt ernatives of cataract surgery were discussed with the patient. He understan ds and will proceed with schedulin g [place]. Essential Essential Disease Recurre [facility] I [facility] hypertensi hypertensi nce 05-26 Edith kes on on 00:00: Medical 00 Center HLD HLD Disease Recurre [facility] (hyperlipi (hyperlipi nce 05-26 Edith kes demia) demia) 00:00: Medical 00 Center Pigment Pigment Disease Recurre Overview: [facility] dispersion dispersion nce 05-26 [facility]attin [facility] syndrome syndrome 00:00: g of this Med ical of both of both 00 note Center eyes eyes might be different from the original. Last Assessmen t & Plan: Old, mild, no glaucoma. Follow. IOP 14 OU today. Left Left Problem Active [facility] shoulder shoulder [...] biceps, biceps, ans initial initial encounter encounter Screening Screening Problem Com mon for for Spirit osteoporos osteoporos - CHI is is [facility] Chronic Stage 3a Problem Common kidney chronic Spirit disease kidney - CHI stage 3A disease [facility] Nicotine Nicotine Problem Commo n dependence dependence Sp mari - [facility] Spermatoce Spermatoce Problem C ommon le le of Spirit epididymis - CHI , multiple [facility] Cardiac Presence Problem Common pacemaker of cardiac Spi rit in situ pacemaker - [facility] Requires DTaP/IPV/H Problem Com mon vaccinatio BV Spirit n vaccinatio - [facility]I n [facility] Subacromia Subacromia Problem Active U T l l Physici impingemen impingemen an s t of left t of left shoulder shoulder Chronic +5th digit Problem Comm on atrial eff Spirit fibrillati 06/17/19*[facility] fibrillati Medica l on Center Varicocele Varicocele Problem C ommon Spirit - [facility] Hydrocele Hydrocele Problem Com mon Spirit - [facility] [id number] Spider Problem Common bite Spirit wound, - CHI accidental St or [facility]ukes unintentio Medica l nal, Center sequela Systolic Congestive Problem Com mon heart heart Spirit failure failure, - CHI systolic, St left NYHA [facility] class 4 Medical Center [id number] Controlled Problem Co mmon type 2 Spirit diabetes - CHI mellitus St without [facility]ukes complicati Medica l on, Center without long-term current use of insulin Chronic Chronic Problem Common systolic systolic Spirit heart congestive - CHI failure heart [facility] Benign BPH Problem Common prostatic without Spirit hypertroph urinary - CHI y without obstructio St outflow n [facility] obstructio Medica l Center Obesity Obesity Problem Common Spirit [facility] Colon Colon Problem Common cancer cancer Spirit screening screening - CH I [facility] Type 2 Diabetes Problem Common diabetes mellitus Spirit mellitus type II, - CHI well controlled [facility] Allergic Allergic Problem Commo n rhinitis rhinitis [facility] Mixed Mixed Problem Common hyperlipid hyperlipid Sp mari emia emia - [facility] [id number] Hyperkalem Problem Com mon ia Spirit - [facility] [id number] Uncontroll Problem Co mmon ed type 2 Spirit diabetes - CHI mellitus with kes hyperglyce Medica l [facility] Center [id number] Other Problem Common specific Spirit arthropath - CHI ies, not St elsewhere [facility] classified Medica l , left Center shoulder Hypertensi HTN Problem Commo n on (hypertens Spirit ion) - [facility] [id number] [place] [id number] evaluation [facility] Screening Prostate Problem Comm on for cancer Spirit malignant screening - CH I neoplasm [facility] prostate [facility] [id number] Hypertensi Problem Comm on ve heart Spirit disease - CHI with heart [facility] Diabetic Type 2 Problem Common renal diabetes Spirit disease mellitus - CHI with diabetic [facility] chronic [facility] kidney Center disease [id number] Unspecifie Problem C ommon [id number] d rotator Spirit cuff tear - CHI or rupture St of left [facility] shoulder, Medical not Center specified as traumatic No known No known Disease Unive rs active active ity of problems problems [facility] Allergies, Adverse Reactions, Alerts Allergy Allergy Status Severity Reaction(s) Onset Inactive Treating Comm ents Source Name Type Date Date Clinician Hydralaz Propensi Active GI Method i ine ty to Intolerance 3-08 st adverse 00:00: Hospita reaction 00 l s to drug Meperidi Propensi Active Hives Univer s ne ty to 1-06 ity of adverse 00:00: [place] reaction 00 Medical s Branch Lisinopr Propensi Active Hives Univer s il ty to 06 ity of adverse 00:00: [place] reaction 00 Medical s Branch Rivaroxa Propensi Active Other - See bleeding Univers ban ty to comments 09-22 ity of adverse 00:00: [place] reaction 00 Medical s Branch MEPERIDI DRUG Active Hives Univers NE INGREDI 09-22 ity of 00:00: [place] 00 Medical Branch RIVAROXA DRUG Active Other-Cmnt Univ ers BAN INGREDI 09-22 ity of 00:00: [place] 00 Medical Branch LISINOPR DRUG Active Hives Univers IL INGREDI 06 ity of 00:00: [place] 00 Medical Branch Meperidi Drug Active 0 UT ne Hcl Allergy 02-02 Health 00:00: 00 Meperidi Propensi Active 0 UT ne ty to 5-02 Health adverse 00:00: reaction 00 s Lisinopr Propensi Active 0 UT il ty to 5-02 Health adverse 00:00: reaction 00 s Rivaroxa Allergy Active 2020-0 UT ban to - Health substanc 00:00: e 00 Lisinopr Propensi Active Hives 2016-09 Method i il ty to 0-26 st adverse 00:00: Hospita reaction 00 l s to drug Rivaroxa Propensi Active Hives 2016-09 Method i ban ty to 0-26 st adverse 00:00: Hospita reaction 00 l s to drug MEPERIDI Allergy Active 2016-09 [facility] NE 0-26 00:00: 00 LISINOPR Allergy Active 2016-09 [facility] IL 0-26 00:00: 00 RIVAROXA Allergy Active 2016-09 [facility] BAN 0 00:00: 00 Meperidi Propensi Active 2016-[address] [...] Hospita reaction 00 l s to drug NO KNOWN Drug Active Univers ALLERGIE Class ity of [facility] Medical Branch Demerol Allergy Active [facility] SOLN to drug Physici (finding ans ) lisinopr Allergy Active [facility] il to drug Physici (finding ans ) Xarelto Allergy Active [facility] TABS to drug Physici (finding ans ) Family History Family Member Diagnosis Comments Start Date Stop Date Source Natural father No Known Problems Met [facility] Natural mother No Known Problems Met [facility] Natural sister Diabetes [facility] Social History Social Habit Start Date Stop Date Quantity Comments Source History SDOH [facility] History of tobacco Cigarette Smoker [facility] Medical Branch History SDOH Social Unive rsity of [facility] Med ical Together Branch History SDOH Social Unive rsity of [facility] Medical Branch History SDOH Social Unive rsity of [facility] Medical Membership Branch History SDOH Social Unive rsity of [facility] Medical Meetings Branch History [facility] 2022-12-22 2022-12-[address] [facility] Transport Med 00:00:00 00:00:[address] [facility] 2022-12-22 2022-12-[address] [facility] Housing Unable to 00:00:00 00:00:00 Medical Center Pay History SDOH 2022-12-22 2022-12-[address] [facility] Housing Places 00:00:00 00:00:00 Medical Ce nter Lived History [facility] 2022-12-22 2022-12-[address] [facility] Housing Homeless 00:00:00 00:00:00 Medical Center Last Year Exposure to 2022-12-05 2022-12-15 [address] to assess [facility] SARS-CoV-2 (event) 00:00:00 21:36:00 Medica l Center History [facility] 2022-10-12 2022-10-12 5 University o f Financial 00:00:00 00:00:00 [place] Medical Branch History SDOH Food 2022-10-12 2022-10-12 1 Univers ity of Worry 00:00:00 00:00:00 [place] Medical Branch History SDOH Food 2022-10-12 2022-10-12 1 Univers ity of Scarcity 00:00:00 00:00:00 [place] Medical [facility] History SDOH 2022-10-12 2022-10-12 1 University o f Alcohol Frequency 00:00:00 00:00:00 [place] M edical Branch History SDOH 2022-10-12 2022-10-12 0 University o f Alcohol Std Drinks 00:00:00 00:00:00 [place] Medical [facility] History SDOH 2022-10-12 2022-10-12 1 University o f Alcohol Binge 00:00:00 00:00:00 [place] Medic al Branch History SDOH Social 2022-10-12 2022-10-12 5 Unive rsity of Connections Phone 00:00:00 00:00:00 [facility] edical Branch History SDDC Social 2022-10-12 2022-10-12 3 Unive rsity of Connections Living 00:00:00 00:00:00 [facility] [place] Branch Tobacco use and 2022-06-14 2022-06-14 Former smokeless Met hodist exposure 00:00:00 00:00:00 tobacco user Hospital Tobacco Comment 2022-06-14 2022-06-14 50 YEARS [employer] 00:00:00 00:00:00 Hospital Alcohol intake 2018-03-15 2018-03-[address] [facility] es 00:00:00 00:00:00 non-drinker of Medical Ce nter alcohol (finding) Cigarettes smoked 2017-07-13 2017-07-[address] [facility] current (pack per 00:00:00 00:00:00 Medical Center day) - Reported Cigarette 2017-07-13 2017-07-[address] [facility] pack-years 00:00:00 00:00:00 Medical Center Sex Assigned At [address] [facility] 00:00:00 00:00:00 Medical Center Smoking Status Start Date Stop Date Source Tobacco smoking [employer] consumption unknown Medical Bran ch Ex-smoker 2022-06-14 00:00:00 2022-06-14 [employer] Jarred milian 00:00:00 Medications Ordered Filled Start Stop Current Ordering Indication Dosage Frequency Signature Comments Components Source Medication Medication Date Date Medication? Clinician (SIG) Name Name amLODIPine 2023- Yes 2.5mg QD Take [address] (NORVASC) 01-07-22 tablet Lukes 2.5 MG 00:00: 23:59 (2.5 mg Medical tablet 00 :00 total) by Center mouth in the morning. aspirin 81 2023- Yes 81mg QD Take [address] MG chewable 01-07- tablet (81 L ukes tablet 00:00: 23:59 mg total) Medic al 00 :00 by mouth Center in the morning. metOLazone 2023- Yes 5mg Take [address] (ZAROXOLYN) 01-07- tablet (5 Edith kes 5 MG tablet 00:00: 23:59 mg total) Medical 00 :00 by mouth Center daily as needed (for weight gain). linagliptin 2022- No type 2 1{tbl} QD Take [address] -metFORMIN 01-06- diabetes tablet by Lukes (JENTADUETO 15:44: 00:00 mellitus mouth Medical ) 2.5-1,000 12 :00 daily. Center mg Tab glimepiride 2022- No 2mg QD Take [address] (AMARYL) 2 01-06- tablet (2 Flynn es MG tablet 15:44: 00:00 mg total) Me dical 12 :00 by mouth Center every evening. insulin Yes 17U QD Inject 17 CHI S t glargine 4-22 Units Lukes (Lantus 00:00: subcutaneo Medi jordin Solostar 00 usly every Cente r U-100 morning. Insulin) 100 unit/mL (3 mL) InPn milrinone Yes 26.[address] (PRIMACOR) 4-22 ug/min 26.3625 Luke s infusion 20 00:00: mcg/min Med ical mg in 00 intravenou Center dextrose 5% sly (D5W) 100 continuous mL (200 . mcg/mL) potassium 2023- Yes 20meq QD Take [address] chloride SA 01-06- tablet (20 L ukes (K-DUR,KLOR 00:00: 23:59 mEq total) Medical -CON-M) 20 00 :00 by mouth Cente r MEQ tablet in the morning. torsemide 2023- Yes 100mg Q.5D Take [address] (DEMADEX) 01-06 tablet [facility]ukes 100 MG 00:00: 23:59 (100 mg Medical tablet 00 :00 total) by Center mouth in the morning and 1 tablet (100 mg total) before bedtime. aspirin Yes 81mg QD Take 1 Methodi (ECOTRIN) 3-29 tablet (81 st 81 MG 10:45: mg total) Hospita enteric 00 by mouth l coated daily. tablet multivitami Yes 1{tbl} QD Take 1 Me thodi n tablet 3-[address] 10:45: mouth Hospita 00 daily. l digOXIN 2022- No 125ug Q2D Take 1 Method i (LANOXIN) 12-05 tablet st 125 mcg 14:01: 00:00 (125 mcg Hospi ta (0.125 mg) 08 :00 total) by l tablet mouth every other day. potassium Yes 1{tbl} Q.5D Take 1 Meth [facility] chloride 20 - tablet by st mEq tablet 00:00: mouth 2 [facility] extended 00 (two) l release times a day. Take 1 tab twice a day. Take extra dose with Metolazone . metOLazone 2023- Yes [id number] 2.5mg Q2D Take 1 [facility] (ZAROXOLYN) 12-[address] 2.5 MG 00:00: 04:59 (2.5 mg Hospita tablet 00 :00 total) by l mouth every other day. , Sunday torsemide 2023- Yes 80mg Q.5D Take 4 Metho di (DEMADEX) 12-[address] 20 MG 00:00: 04:59 (80 mg Hospita tablet 00 :00 total) by l mouth 2 (two) times a day. magnesium 2022- No 400mg Q.5D Take 1 Meth [facility] oxide 11-[address] (MAG-OX) 20:52: 00:00 (400 mg Hospi ta 400 mg 03 :00 total) by l (241.3 mg mouth 2 magnesium) (two) tablet times a day. carvediloL 2022- No 6.25mg Q.5D Take 1 [facility] (COREG) 11-[address] 6.25 MG 20:52: 00:00 (6.25 mg Hospi ta tablet 03 :00 total) by l mouth 2 (two) times a day with meals. potassium 2022- No 1{tbl} QD Take 1 Met hodi chloride 20 11-[address] mEq tablet 08:36: 00:00 mouth Hospi ta extended 54 :00 daily. l release magnesium 2023- Yes 800mg Q.5D Take 2 Meth [facility] oxide 11-[address] (MAG-OX) 00:00: 04:59 (800 mg Hospi ta 400 mg 00 :00 total) by l (241.3 mg mouth 2 magnesium) (two) tablet times a day. rosuvastati 2023- Yes 10mg QD Take 1 Met hodi n (CRESTOR) 11-30 tablet (10 s t 10 mg 00:00: 04:59 mg total) Hospit a tablet 00 :00 by mouth l nightly. amLODIPine 2023- Yes 5mg QD Take 1 Meth [facility] (NORVASC) 5 11-30 tablet (5 st mg tablet 00:00: 04:59 mg total) Ho spita 00 :00 by mouth l daily. potassium 2022- No 1{tbl} Take 1 Met [facility] chloride 20 11-[address] mEq tablet 00:00: 00:00 mouth See H ospita extended 00 :00 Admin l release Instructio ns. Take potassium chloride 20 mEq (1 tablet) twice weekly on Sunday and Sunday with Metolazone torsemide 2022- No 60mg Q.5D Take 3 Metho di (DEMADEX) 11-30- tablets st 20 MG 00:00: 00:00 (60 mg Hospita tablet 00 :00 total) by l mouth 2 (two) times a day. metOLazone 2022- No [id number] 2.5mg Q.5W Take 1 [facility] (ZAROXOLYN) 11-[address] 2.5 MG 00:00: 00:00 (2.5 mg Hospita tablet 00 :00 total) by l mouth 2 (two) times a week. , Sunday milrinone 2023- Yes 9.7875u Infuse [facility] in 5% 11-10 02-25 g/min 9.7875 st dextrose 00:00: 05:59 mcg/min Hospi ta (PRIMACOR) 00 :00 into a l 20 mg/100 venous mL (200 catheter mcg/mL) Titrated. infusion spironolact 2022- Yes [id number] 12.5mg Take 0.5 Univers one 25 mg 10-14 9103 tablets by ity of tablet 00:00: 05:59 mouth in [place] 00 :00 the Medical [facility] Branch for 30 days. spironolact 2022- Yes [id number] 12.5mg Take 0.5 Univers one 25 mg 10-14 9103 tablets by ity of tablet 00:00: 05:59 mouth in [place] 00 :00 the [facility] Branch for 30 days. digoxin 125 Yes 125ug Take 125 U nivers mcg (0.125 1-27 mcg by ity of mg) tablet 16:29: mouth [place] [address] every Medical other day. Branch amiodarone Yes 200mg Take 200 Un treasure 200 mg 1-27 mg by ity of tablet 16:29: mouth in [place] [address] the Medical morning. Branch aspirin 81 0 Yes 81mg Take 81 mg U nivers mg chewable -27 by mouth ity of tablet 16:29: in the [place] [address] morning. Medical Branch carvediloL Yes 12.5mg Take 12.5 Univers 12.5 mg 1-27 mg by ity of tablet 16:29: mouth in [place] [address] the Medical morning Branch and 12.5 mg in the evening. Take with meals. apixaban 0 Yes 5mg Take 5 mg Univ ers (ELIQUIS) 5 1-27 by mouth ity of mg tablet 16:29: in the [place] [address] morning Medical and 5 mg Branch in the evening. fenofibrate 2022-0 Yes 145mg Take 145 U nivers 145 mg 1-27 mg by ity of tablet 16:29: mouth in [place] [address] the Medical morning. Branch magnesium 0 Yes Take by Unive rs oxide 400 1-27 mouth 2 ity of mg 16:29: (two) [place] magnesium 58 times Medical Tab daily. Branch nitroglycer 2022-[address] 0.4 U nivers in 0.4 mg 1-27 mg under ity of sublingual 16:29: the tongue [place] tablet 58 every 5 Medical (five) Branch minutes as needed for Chest pain. rosuvastati 0 Yes 40mg Take 40 mg Univers n 40 mg 1-27 by mouth ity of tablet 16:29: at [place] [address] bedtime. Medical Branch sodium 0 Yes 10mg Take 10 mg Unive rs zirconium 1-27 by mouth ity of cyclosilica 16:29: daily. [place] (LOKELRI 58 Medical ORAL) Branch digoxin 125 2022-0 Yes 125ug Take 125 U nivers mcg (0.125 1-27 mcg by ity of mg) tablet 16:29: mouth [place] [address] every Medical other day. Branch amiodarone 0 Yes 200mg Take 200 Un treasure 200 mg 1-27 mg by ity of tablet 16:29: mouth in [place] [address] the Medical morning. Branch aspirin 81 2022-0 Yes 81mg Take 81 mg U nivers mg chewable 1-27 by mouth ity of tablet 16:29: in the [place] [address] morning. Medical Branch carvediloL 2022-0 Yes 12.5mg Take 12.5 Univers 12.5 mg 1-27 mg by ity of tablet 16:29: mouth in [place] [address] the Medical morning Branch and 12.5 mg in the evening. Take with meals. apixaban 2022-0 Yes 5mg Take 5 mg Univ ers (ELIQUIS) 5 1-27 by mouth ity of mg tablet 16:29: in the [place] [address] morning Medical and 5 mg Branch in the evening. fenofibrate 2022-0 Yes 145mg Take 145 U nivers 145 mg 1-27 mg by ity of tablet 16:29: mouth in [place] 58 the Medical morning. Branch magnesium Yes Take by Unive rs oxide 400 27 mouth 2 ity of mg 16:29: (two) [place] magnesium 58 times Medical Tab daily. Branch nitroglycer Yes .4mg Place 0.4 U nivers in 0.4 mg 1-27 mg under ity of sublingual 16:29: the tongue [place] tablet 58 every 5 Medical (five) Branch minutes as needed for Chest pain. rosuvastati Yes 40mg Take 40 mg Univers n 40 mg 10-13 by mouth ity of tablet 16:29: at [place] 58 bedtime. Medical Branch sodium Yes 10mg Take 10 mg Unive rs zirconium 10-13 by mouth ity of cyclosilica 16:29: daily. [place] (LOKELMA 58 Medical ORAL) Branch hydrALAZINE 2022- No 100mg Take 100 Univers 100 mg -13 10-27 mg by ity of tablet 15:47: 00:00 mouth in [place] 09 :00 the Medical morning Branch and 100 mg in the evening. spironolact Yes 12.5mg 12.5 mg, Univers one 10-13 Oral, ity of (ALDACTONE) 15:00: DAILY, [place] tablet 12.5 00 First dose Me dical mg on [place] Branch 10/13/22 at 0900, Until Discontinu ed, Routine KCL 20 0 Yes 40meq 40 mEq, Univers mEq/15 mL 10-13 Oral, ity of solution 40 15:00: DAILY, [place] mEq 00 First dose Medical on [place] Branch 10/13/22 at 0900, Until Discontinu ed, Routine metOLazone 0 Yes 2.5mg Take 1 Univ ers 2.5 mg 10-13 tablet by ity of tablet 00:00: mouth in [place] 00 the Medical morning. Branch milrinone Yes 9.925ug 9.925 Univ ers in 5 % -27 /min mcg/min by ity of dextrose 20 00:00: IV [place] mg/100 mL 00 Infusion Medica l (200 route Branch mcg/mL) CONTINUOUS infusion . RTU torsemide 0 Yes 60mg Take 3 Univer s 20 mg -27 tablets by ity of tablet 00:00: mouth in [place] [address] the Medical morning Branch and 3 tablets in the evening. KCL 20 mEq 2022-0 Yes [id number] 20meq Take 1 Univers tablet 10-13 9103 tablet by ity of 00:00: mouth in [place] the morning. Branch metOLazone 2022-0 Yes 2.5mg Take 1 Univ ers 2.5 mg - tablet by ity of tablet 00:00: mouth in [place] the morning. Branch milrinone 2022-0 Yes 9.925ug 9.925 Univ ers in 5 % -27 /min mcg/min by ity of dextrose 20 00:00: IV [place] mg/100 mL 00 Infusion Medica l (200 route Branch mcg/mL) CONTINUOUS infusion . RTU torsemide 2022-0 Yes 60mg Take 3 Univer s 20 mg - tablets by ity of tablet 00:00: mouth in [place] the morning Branch and 3 tablets in the evening. KCL 20 mEq 2022-0 Yes [id number] 20meq Take 1 Univers tablet 10-13 9103 tablet by ity of 00:00: mouth in [place] the morning. Branch KCL 20 2022-0 2023- No 20meq 20 mEq, Univer s mEq/15 mL 10-12 Oral, ity of solution 20 18:15: 17:39 ONCE, 1 [place] mEq 00 :00 dose, On Medical [facility] 10/12/22 at 1215, Routine insulin 2022-0 Yes 20U 20 Units, Unive rs glargine 10-12 Subcutaneo ity o f (LANTUS 15:00: [place], DAILY, [place] U-100) 00 First dose Medical injection on [facility] 20 Units 10/12/22 at 0900, Until Discontinu ed, Routine metOLazone 2022-0 Yes 5mg 5 mg, Univer s (ZAROXOLYN) 10-12 Oral, ity of tablet 5 mg 15:00: DAILY, [place] 00 First dose Medical on [facility] 10/12/22 at 0900, Until Discontinu ed, Routine digoxin 2022-0 Yes 125ug 125 mcg, Unive rs (LANOXIN) 10-12 Oral, Q ity of tablet 125 15:00: OTHERDAY, [place] mcg 00 First dose Medical on [facility] Branch 10/12/22 at 0900, Until Discontinu ed, Routine aspirin 2022-0 Yes 81mg 81 mg, Univers chewable 10-12 Oral, ity of tablet 81 15:00: DAILY, [place] mg 00 First dose Medical on [facility] Branch 10/12/22 at 0900, Until Discontinu ed, Routine amiodarone 0 Yes 200mg 200 mg, Uni vers (PACERONE) 10-12 Oral, ity of tablet 200 15:00: DAILY, [place] mg 00 First dose Medical on [facility] Branch 10/12/22 at 0900, Until Discontinu ed, Routine Sliding 2022-0 Yes Subcutaneo Univ ers Scale 10-12 , TID ity of Insulin - 14:00: MEALS, [place] Lispro 00 First dose Medical (HumaLOG) + (after Branch Fs last Testing modificati on) on [facility] 10/12/22 at 0800, Until Discontinu ed, Routine furosemide 0 Yes 40mg 40 mg, Unive rs (LASIX) 10-12 Slow IV ity of injection 05:15: Push, Q8H, [place] 40 mg 00 First dose Medical (after Branch last modificati on) on Sun10/11/22 at 2315, Until Discontinu ed, Routine traZODone 0 Yes 25mg 25 mg, Univer s (DESYREL) 10-12 Oral, QHS, ity of tablet 25 03:15: First dose [place] mg 00 on [facility] 10/11/22 at Branch 2115, Until Discontinu ed, Routine rosuvastati 0 Yes 40mg 40 mg, Univ ers n (CRESTOR) 10-12 Oral, QHS, it y of tablet 40 03:00: First dose [place] mg 00 on [facility] 10/11/22 at Branch 2100, Until Discontinu ed, Routine Sliding 2022-0 2022- No Subcutaneo Uni vers Scale 10-12 , TID ity of Insulin - 03:00: 05:02 MEALS+HS, [place] Lispro 00 :39 First dose Medical (HumaLOG) + on Sun Branch Fs 10/11/22 at Testing 2100, Until Discontinu ed, Routine apixaban Yes 5mg 5 mg, Univers (ELIQUIS) 10-12 Oral, BID, ity of tablet 5 mg 02:00: First dose [place] on Sun Medical 10/11/22 at Branch 1999, Until Discontinu ed, Routine
Indicatio ns: Non-Valvul ar Atrial Fibrillati on magnesium 0 Yes 400mg 400 mg, Univ ers oxide 10-12 Oral, BID, ity of (MAG-OX 02:00: First dose [place] 400) tablet on Sun Medica l 400 mg 10/11/22 at Branch 2000, Until Discontinu ed furosemide 2022- No 40mg 40 mg, Univ ers (LASIX) 10-12 Slow IV ity of injection 02:00: 05:02 Push, [place] 40 mg 00 :00 Q12H, Medical First dose Branch on Sun10/11/22 at 2000, Until Discontinu ed, Routine glucagon Yes 1mg 1 mg, Univers (GLUCAGEN 10-11 Intramuscu ity of DIAGNOSTIC 23:48: lar, PRN, [place] KIT) 37 Starting Medical injection 1 on Sun Branch mg 10/11/22 at 1748, Until Discontinu ed, THOR, Blood Glucose < or = 70 mg/dL and patient is NPO, unable to swallow or has mental changes. dextrose 50 Yes 25mL 25 mL, Univ ers % in water 25 Slow IV ity of (D50W) 23:48: Push, PRN, [place] injection 37 Starting Medica l 25 mL on Sun Branch 10/11/22 at 1748, Until Discontinu ed, THOR, Blood Glucose < or = 70 mg/dL and patient is NPO, unable to swallow or has mental status changes. carvediloL Yes 12.5mg 12.5 mg, U nivers (COREG) 10-11 Oral, BID ity of tablet 12.5 23:00: MEALS, [place] mg 00 First dose Medical on [place] Branch 10/11/22 at 1700, Until Discontinu ed, Routine milrinone Yes .125ug/ 0.125 Univ ers in 5 % 1-25 kg/min mcg/kg/min ity o f dextrose 22:00: ?79.4 kg [place] (PRIMACOR) 00 (2.9775 Medica l 20 mg/100 mL/hr, Branch mL (200 rounded to mcg/mL) 2.98 infusion mL/hr), IV RTU Infusion, CONTINUOUS , Starting on Sun10/11/22 at 1600
1. Dose to be adjusted by physician or provider.& nbsp;2. Notify MD if MAP < 65 mmHG.
acetaminoph Yes 650mg 650 mg, Un treasure en 10-11 Oral, ity of (TYLENOL) 21:52: Q6HPRN, [place] tablet 650 43 Starting Medic al mg on Sun Branch 10/11/22 at 1552, Until Discontinu ed, Routine, Pain (scale 1-3) nitroglycer Yes .4mg 0.4 mg, Uni vers in 10-11 Sublingual ity of (NITROSTAT) 21:51: , Q5MIN [place] sublingual 59 PRN, Medical tablet 0.4 Starting Branc h mg on Sun10/11/22 at 1551, Until Discontinu ed, Routine, Chest pain ondansetron 2022- No 4mg 4 mg, Slow Univers (ZOFRAN 10-11 IV Push, ity of (PF)) 18:15: 18:25 ONCE, 1 [place] injection 4 00 :00 dose, On Medi jordin mg [facility] Branch 10/11/22 at 1215, THOR aspirin 2022- No 324mg 324 mg, Unive rs chewable 10-11 Oral, ity of tablet 324 17:45: 16:40 ONCE, 1 [place] mg 00 :00 dose, On Medical [facility] Branch 10/11/22 at 1145, Routine magnesium 2022- No 2g 2 g, IV Univ ers sulfate in 10-11 Piggyback, it y of water 2 16:15: 17:13 Administer [place] gram/50 mL 00 :00 over 60 Medica l (4 %) Minutes, Branch infusion 2 ONCE, 1 g dose, On [facility] 10/11/22 at 1015, Routine furosemide 2022- No 40mg 40 mg, IV U nivers (LASIX) 10-11 Push, ity of injection 15:15: 15:25 ONCE, 1 [place] 40 mg 00 :00 dose, On Medical [facility] Branch 10/11/22 at 0915, THOR empaglifloz 2022- No 19896 10mg QD Take 1 Me thodi in 10-10 tablet (10 st (Jardiance) 13:59: 00:00 mg total) Hospita 10 mg 12 :00 by mouth l tablet daily tablet .chronic heart failure. fenofibrate Yes 145mg QD Take 1 Met hodi (TRICOR) 10-[address] 145 MG 00:00: (145 mg Hospita tablet 00 total) by l mouth daily. amIODarone 2022- No [id number] 200mg QD Take 1 [facility]i (PACERONE) 10-[address] 200 MG 00:00: 00:00 (200 mg Hospita tablet 00 :00 total) by l mouth daily. torsemide 2022- No 60mg Q.5D Take 3 Metho di (DEMADEX) 10-[address] 20 MG 00:00: 00:00 (60 mg Hospita tablet 00 :00 total) by l mouth 2 (two) times a day for 30 days. rosuvastati 2022- No 40mg QD Take 1 Met hodi n (CRESTOR) 10-10 tablet (40 s t 40 MG 00:00: 00:00 mg total) Hospit a tablet 00 :00 by mouth l nightly. metOLazone 2022- No [id number] Take 2.5 [facility]i (ZAROXOLYN) 10-[address] 2.5 MG 00:00: 00:00 needed Hospita tablet 00 :00 weekly or l twice weekly for weight gain or sob. carvediloL 2022- No 6.25mg Q.5D Take 1 Me thodi (COREG) 10-[address] 6.25 MG 00:00: 05:59 (6.25 mg Hospi ta tablet 00 :00 total) by l mouth 2 (two) times a day for 30 days. torsemide 2022- No 40mg Q.5D Take 2 Metho di (DEMADEX) 10-[address] 20 MG 00:00: 00:00 (40 mg Hospita tablet 00 :00 total) by l mouth 2 (two) times a day for 30 days. digOXIN 2022- No 125ug Q2D Take 1 Method i (LANOXIN) 10-[address] 125 mcg 00:00: 05:59 (125 mcg Hospi ta (0.125 mg) 00 :00 total) by l tablet mouth every other day for 30 days. hydrALAZINE 2022- No 25mg Q.[id number] Take 1 [facility]i (APRESOLINE 10-02 [id number] tablet (25 st ) 25 MG 00:00: 00:00 3D mg total) Hosp chau tablet 00 :00 by mouth l every 8 (eight) hours for 30 days. ondansetron 2022-0 2022- No 4mg 4 mg, Slow Univers (ZOFRAN 09-22 IV Push, ity of (PF)) 18:30: 18:29 ONCE, 1 [place] injection 4 00 :00 dose, On Medi jordin mg 09/22/22 Branch at 1230, THOR ondansetron 2022-2022- No 4mg 4 mg, Slow Univers (ZOFRAN 09-22 IV Push, ity of (PF)) 17:30: 17:19 ONCE, 1 [place] injection 4 00 :00 dose, On Medi jordin mg 09/22/22 Branch at 1130, THOR aspirin 2022- No 324mg 324 mg, Unive rs chewable 09-22 Oral, ity of tablet 324 17:15: 16:22 ONCE, 1 [place] mg 00 :00 dose, On Medical 09/22/22 Branch at 1115, Routine ondansetron 2022-2022- No 4mg 4 mg, Slow Univers (ZOFRAN 09-22 IV Push, ity of (PF)) 16:30: 15:28 ONCE, 1 [place] injection 4 00 :00 dose, On Medi jordin mg Sun09/22/22 Branch at 1030, THOR pantoprazol 2022-2022- No 80mg 80 mg, IV Univers e 09-22 Push, ity of (PROTONIX) 16:15: 15:31 ONCE, 1 [place] 80 mg in 00 :00 dose, On Medical NaCl 0.9% 09/22/22 Bran ch (NS) 20 mL at 1015, syringe Administer over 2 Minutes, 20 mL furosemide 0 2022- No 40mg 40 mg, IV U nivers (LASIX) 09-22 Push, ity of injection 15:15: 15:28 ONCE, 1 [place] 40 mg 00 :00 dose, On Medical 09/22/22 Branch at 0915, THOR digoxin 125 2022-0 Yes 125ug Take 125 U nivers mcg (0.125 1-06 mcg by ity of mg) tablet 13:41: mouth [place] [address] every Medical other day. Branch hydrALAZINE 0 Yes 100mg Take 100 U nivers 100 mg 1-06 mg by ity of tablet 13:41: mouth in [place] [address] the Medical morning Branch and 100 mg in the evening. amiodarone 0 Yes 200mg Take 200 Un treasure 200 mg 1-06 mg by ity of tablet 13:41: mouth in [place] [address] the morning. Branch aspirin 81 2022-0 Yes 81mg Take 81 mg U nivers mg chewable 06 by mouth ity of tablet 13:41: in the [place] morning. Medical Branch carvediloL 0 Yes 12.5mg Take 12.5 Univers 12.5 mg 1-06 mg by ity of tablet 13:41: mouth in [place] the Medical morning Branch and 12.5 mg in the evening. Take with meals. apixaban 2022-0 Yes 5mg Take 5 mg Univ ers (ELIQUIS) 5 -06 by mouth ity of mg tablet 13:41: in the [place] morning Medical and 5 mg Branch in the evening. fenofibrate 2022-0 Yes 145mg Take 145 U nivers 145 mg 1-06 mg by ity of tablet 13:41: mouth in [place] the morning. Branch magnesium 2022-0 Yes Take by Unive rs oxide 400 1-06 mouth 2 ity of mg 13:41: (two) [place] magnesium 03 times Medical Tab daily. Branch nitroglycer 2022-[address] 0.4 U nivers in 0.4 mg 1-06 mg under ity of sublingual 13:41: the tongue [place] tablet 03 every 5 Medical (five) Branch minutes as needed for Chest pain. rosuvastati Yes 40mg Take 40 mg Univers n 40 mg -06 by mouth ity of tablet 13:41: at [place] 03 bedtime. Medical Branch sodium Yes 10mg Take 10 mg Unive rs zirconium -06 by mouth ity of cyclosilica 13:41: daily. [place] te (LOKELMA 03 Medical ORAL) Branch hydrALAZINE 2021-09- No 100mg Q.[id number] Take 1 Methodi (APRESOLINE 10-[id number] ) 100 MG 00:00: 00:00 3D (100 mg Hospi ta tablet 00 :00 total) by l mouth 3 (three) times a day. furosemide 2021-09 No Take 2 Meth [facility] (LASIX) 40 10-[address] mg tablet 00:00: 00:00 (80 mg Hospi ta 00 :00 total) by l mouth daily before breakfast AND 1 tablet (40 mg total) daily before dinner. digOXIN 2021-09 No 125ug Q2D Take 1 Method i (LANOXIN) 10-[address] 125 mcg 00:00: 00:00 (125 mcg Hospi ta (0.125 mg) 00 :00 total) by l tablet mouth every other day for 30 days. furosemide 2021-09 No 40mg QD Take 1 Meth [place] (LASIX) 40 10-30 tablet (40 st mg tablet 00:00: 00:00 mg total) Ho spita 00 :00 by mouth l every evening. furosemide 2021-09- No 80mg QD Take 1 Meth [place] (LASIX) 80 10-30 tablet (80 st mg tablet 00:00: 00:00 mg total) Ho spita 00 :00 by mouth l daily for 30 days. hydrALAZINE 2021-09- No 100mg Q.42039212 Take 1 [facility]i (APRESOLINE 10-[id number] ) 100 MG 00:00: 00:00 3D (100 mg Hospi ta tablet 00 :00 total) by l mouth 3 (three) times a day for 30 days. isosorbide 2021-09 No [id number] 10mg Q.55005418 Take 1 Methodi dinitrate 10-16 9100 [id number] tablet (10 st (ISORDIL) 00:00: 00:00 3D mg total) Ho spita 10 MG 00 :00 by mouth 3 l tablet (three) times a day. hydrALAZINE 2021-09 No [id number] 25mg Q.12554157 Take 1 [facility]i (APRESOLINE 10-16 [id number] tablet (25 st ) 25 MG 00:00: 00:00 3D mg total) Hosp chau tablet 00 :00 by mouth 3 l (three) times a day. digOXIN 2021-09 No 125ug Q2D Take 1 Method i (LANOXIN) 09-[address] 125 mcg 00:00: 00:00 (125 mcg Hospi ta (0.125 mg) 00 :00 total) by l tablet mouth every other day for 30 days. furosemide 2021-09- No Every Metho di (LASIX) 40 09-24, st mg tablet 00:00: 00:00 Sunday, H ospita 00 :00 Sunday l please take 40 mg twice a day. Every Sunday, , Sunday, Sunday, Please take 40 mg once a day hydrALAZINE 2021-09 No 25mg Q.22853765 Take 1 Methodi (APRESOLINE 09-24 [id number] tablet (25 st ) 25 MG 00:00: 00:00 3D mg total) Hosp chau tablet 00 :00 by mouth 3 l (three) times a day for 30 days. isosorbide 2021-09 No 10mg Q.04511316 Take 1 [facility]i dinitrate 09-24 [id number] tablet (10 st (ISORDIL) 00:00: 00:00 3D mg total) Ho spita 10 MG 00 :00 by mouth 3 l tablet (three) times a day for 30 days. isosorbide 2021-09- No 10mg QD Take 1 Meth [place] mononitrate 09-24 11-08 tablet (10 s t (ISMO) 10 00:00: 00:00 mg total) Ho spita MG tablet 00 :00 by mouth l daily for 30 days. digOXIN 2021-09- No [id number] TAKE 1 Me [facility]odi (LANOXIN) 09-18-[address] 125 mcg 00:00: 00:00 MOUTH Hospita (0.125 mg) 00 :00 EVERY DAY l tablet nitroglycer 2021-09- No .4mg Place 0.4 Methodi in 0-26 10-[address] (NITROSTAT) 15:46: 00:00 the tongue Hospita 0.4 MG SL 01 :00 every 5 l tablet (five) minutes as needed for chest pain. nitroglycer 2021-[address] 0.4 Methodi in 0-26 [...] chau 10 mg 49 l tablet tablet nitroglycer 2021-09- No .4mg Place 1 Me [facility] in 0-26 10-[address] (NITROSTAT) 00:00: 04:59 (0.4 mg Ho spita 0.4 MG SL 00 :00 total) l tablet under the tongue every 5 (five) minutes as needed for chest pain. sodium 2021-09- No [id number] 10g QD Take 10 g Methodi zirconium 0-26 10-[address] cyclosilica 00:00: 04:59 daily. Hos [place] te 00 :00 l (Lokelma) 10 gram powder in packet packet furosemide 2021-09 No 40mg QD Take 1 Meth [place] (LASIX) 40 0-26 10-27 tablet (40 st mg tablet 00:00: 04:59 mg total) Ho spita 00 :00 by mouth l daily. nitroglycer 2021-[address] 1 Me [facility]odi in 0-26 10-[address] (NITROSTAT) 00:00: 04:59 (0.4 mg Ho spita 0.4 MG SL 00 :00 total) l tablet under the tongue every 5 (five) minutes as needed for chest pain. sodium 2021-09 No [id number] 10g QD Take 10 g Methodi zirconium 0- [address] cyclosilica 00:00: 00:00 daily. Hos [place] te 00 :00 l (Lokelma) 10 gram powder in packet packet furosemide 2021-09 No 40mg QD Take 1 Meth [place] (LASIX) 40 0-26 11-08 tablet (40 st mg tablet 00:00: 00:00 mg total) Ho spita 00 :00 by mouth l daily. Eliquis 5 2021-09 Yes [id number] TAKE 1 M ethodi mg tablet 0-[address] 00:00: MOUTH Hospita 00 TWICE A l DAY Eliquis 5 2021-09 Yes [id number] TAKE 1 M ethodi mg tablet 0-[address] 00:00: MOUTH Hospita 00 TWICE A l DAY Eliquis 5 2021-09 Yes [id number] TAKE 1 M ethodi mg tablet 0-09 [...] Hospita enteric 28 l coated tablet magnesium 2021- Yes 400mg Q.5D Take 400 Met hodi oxide 9-[address] (MAG-OX) 09:03: mouth 2 Hospit a 400 mg 28 (two) l (241.3 mg times a magnesium) day. tablet empaglifloz 2021-0 Yes 10mg QD Take 10 mg Methodi in 9-[address] (Jardiance) 09:03: daily. Hosp chau 10 mg 28 l tablet tablet nitroglycer [address] 0.4 M ethodi in [...] mg times a magnesium) day. tablet empaglifloz 0 Yes 10mg QD Take 10 mg Methodi in 8-[address] ([place]ardiance) 18:19: daily. Hosp chau 10 mg 34 l tablet tablet Lokelma 5 Yes [id number] USE 1 Methodi gram powder 04-[address] in packet 00:00: DIRECTED Hosp chau packet 00 EVERY DAY l Lokelma 5 0 Yes [id number] USE 1 [facility]i gram powder 04-[address] in packet 00:00: DIRECTED Hosp chau packet 00 EVERY DAY l Lokelma 5 2021-0 2021- No [id number] USE 1 [facility]i gram powder 04-[address] in packet 00:00: 00:00 DIRECTED Hos [place] packet 00 :00 EVERY DAY l Lokelma 5 2021-0 2021- No [id number] USE 1 Methodi gram powder 04-[address] in packet 00:00: 00:00 DIRECTED Hos [place] packet 00 :00 EVERY DAY l sacubitriL- 2021-0 2022- No 1{tbl} Q.5D Take 1 M ethodi valsartan 03-[address] [facility] 00:00: 04:59 mouth 2 Hos chloe 49-51 [...] M ethodi valsartan 03-[address] ([facility]) 00:00: 04:59 mouth 2 Hos [place]loe 49-51 [...] M ethodi valsartan 03-[address] ([facility]) 00:00: 04:59 mouth 2 Hos [place]loe 49-51 mg 00 :00 (two) l tablet per times a tablet day. sacubitriL- 2021- No 1{tbl} Q.5D Take 1 M ethodi valsartan 03-[address] [facility] 00:00: 00:00 mouth 2 Hos [facility]loe 49-51 mg 00 :00 (two) l tablet per times a tablet day. furosemide 2021- No 40mg Take 1 Meth [place] (LASIX) 40 03-22- tablet (40 st mg tablet 00:00: 00:00 mg total) Ho spita 00 :00 by mouth l as needed (weight gain more than 3 pounds in a 24 hour period). furosemide 2021- No 40mg Take 1 Meth [...] TWICE A l DAY WITH FOOD carvediloL 2022- No TAKE 1 Meth [place] (COREG) 6-22 -[address] 12.5 MG 00:00: 00:00 MOUTH Hospita tablet 00 :00 TWICE A l DAY WITH FOOD fenofibrate [...] Hospita tablet 00 EVERY DAY l fenofibrate 2022- No TAKE 1 Met hodi (TRICOR) 6-12 -[address] 145 MG 00:00: 00:00 MOUTH Hospita tablet 00 :00 EVERY DAY l Entresto 0 2021- No [id number] TAKE 1 [facility] 97-103 mg 6-04-[address] tablet per 00:00: 00:00 MOUTH Hospi ta tablet 00 :00 TWICE A l DAY Entresto 2021-0 2021- No [id number] TAKE 1 [facility] 97-103 mg 6-04-[address] tablet per 00:00: 00:00 MOUTH Hospi ta tablet 00 :00 TWICE A l DAY Entresto 0 2021- No [id number] TAKE 1 [facility] 97-103 mg -04-[address] tablet per 00:00: 00:00 MOUTH Hospi ta tablet 00 :00 TWICE A l DAY Entresto 0 2021- No [id number] TAKE 1 [facility] 97-103 mg -04-[address] tablet per 00:00: 00:00 MOUTH Hospi ta tablet 00 :00 TWICE A l DAY amIODarone 0 Yes [id number] TAKE 1 [facility] (PACERONE) 5-[address] 200 MG 00:00: MOUTH Hospita tablet 00 EVERY DAY l amIODarone 0 Yes [id number] TAKE 1 [facility] (PACERONE) 5-[address] 200 MG 00:00: MOUTH Hospita tablet 00 EVERY DAY l amIODarone 0 Yes [id number] TAKE 1 [facility] (PACERONE) 5-[address] 200 MG 00:00: MOUTH Hospita tablet 00 EVERY DAY l amIODarone 0 2022- No [id number] TAKE 1 [facility] (PACERONE) 5-16 - [address] 200 MG 00:00: 00:00 MOUTH Hospita tablet 00 :00 EVERY DAY l rosuvastati Yes TAKE 1 [...] 00 EVERY DAY l AT NIGHT rosuvastati 2021-0 2022- No TAKE 1 Met [facility]odi n (CRESTOR) 4-26 - TABLET BY st 40 MG 00:00: 00:00 MOUTH Hospita tablet 00 :00 EVERY DAY l AT NIGHT furosemide 2021-0 2021- No 40mg QD Take 1 Meth kimberly (LASIX) 40 09-21- tablet (40 st mg tablet 00:00: 00:00 mg total) Ho spita 00 :00 by mouth l daily. furosemide 40mg QD Take 1 Meth kimberly (LASIX) 40 09-21 tablet (40 st mg tablet 00:00: 00:00 mg total) Ho spita 00 :00 by mouth l daily. furosemide No 40mg QD Take 1 Meth kimberly (LASIX) 40 09-21 tablet (40 st mg tablet 00:00: 00:00 mg total) Ho spita 00 :00 by mouth l daily. furosemide No 40mg QD Take 1 Meth kimberly (LASIX) 40 09-21 tablet (40 st mg tablet 00:00: 00:00 [...] TWICE A l DAY WITH FOOD Eliquis 2020-09 Yes [id number] TAKE 1 M [facility]i mg tablet 10-[address] 00:00: MOUTH Hospita 00 TWICE A l DAY Eliquis 5 2020-09- No [id number] TAKE 1 [facility] mg tablet 10-26- TABLET BY st 00:00: 00:00 MOUTH Hospita 00 :00 TWICE A l DAY Eliquis 5 2020-09- No [id number] TAKE 1 [facility] mg tablet 10-[address] 00:00: 00:00 MOUTH Hospita 00 :00 TWICE A l DAY Eliquis 5 2020-09- No [id number] TAKE 1 [facility] mg tablet 10-[address] 00:00: 00:00 MOUTH Hospita 00 :00 TWICE A l DAY digOXIN 2020-09- No [id number] 125ug QD Take 1 M ethodi (LANOXIN) 0-04 07-[address] 125 mcg 00:00: 00:00 (125 mcg Hospi ta (0.125 mg) 00 :00 total) by l tablet mouth daily. digOXIN 2020-09- No [id number] 125ug QD Take 1 M ethodi (LANOXIN) 0-04 -[address] 125 mcg 00:00: 04:59 (125 mcg Hospi ta (0.125 mg) 00 :00 total) by l tablet mouth daily. digOXIN 2020-09- No [id number] 125ug QD Take 1 M ethodi (LANOXIN) 0-04 06-[address] 125 mcg 00:00: 04:59 (125 mcg Hospi ta (0.125 mg) 00 :00 total) by l tablet mouth daily. digOXIN 2020-09- No [id number] 125ug QD Take 1 M ethodi (LANOXIN) 0-04 06-[address] 125 mcg 00:00: 04:59 (125 [...] l every other day. sodium 2021- No [id number] 5g QD Take 5 g [facility] zirconium 04-[address] cyclosilica 00:00: 00:00 daily. Hos chloe te 00 :00 l (Lokelma) 5 gram powder in packet packet sodium 2021- No [id number] 5g QD Take 5 g [facility] zirconium 04-[address] cyclosilica 00:00: 00:00 daily. Hos chloe te 00 :00 l (Lokelma) 5 gram powder in packet packet sodium 2021- No [id number] 5g QD Take 5 g [facility] zirconium 04-[address] cyclosilica 00:00: 00:00 daily. Hos chloe te 00 :00 l (Lokelma) 5 gram powder in packet packet sodium 2021- No [id number] 5g QD Take 5 g [facility] zirconium 04-[address] cyclosilica 00:00: 00:00 daily. Hos chloe te 00 :00 l (Lokelma) 5 gram powder in packet packet amIODarone 2021- No [id number] 200mg QD Take 1 [facility] (PACERONE) 04-[address] 200 MG 00:00: 00:00 (200 mg Hospita tablet 00 :00 total) by l mouth daily. amIODarone 2021- No [id number] 200mg QD Take 1 [facility] (PACERONE) 04-[address] 200 MG 00:00: 00:00 (200 mg Hospita tablet 00 :00 total) by l mouth daily. amIODarone 2021- No [id number] 200mg QD Take 1 [facility] (PACERONE) 04-[address] 200 MG 00:00: 00:00 (200 mg Hospita tablet 00 :00 total) by l mouth daily. amIODarone 2021- No [id number] 200mg QD Take 1 [facility] (PACERONE) 04-[address] 200 MG 00:00: 00:00 (200 mg Hospita tablet 00 :00 total) by l mouth daily. albuterol 2021- No [id number] 2.5mg Q24H Take 0.5 [facility] sulfate 04-13 9100 mL (2.[address] (PROVENTIL) 00:00: 00:00 total) by Hospita 2.5 mg/0.5 00 :00 nebulizati l mL solution on daily for as needed nebulizatio for n wheezing (SOB) for up to 15 doses. albuterol 2021- No [id number] 2.5mg Q24H Take 0.5 [facility] sulfate 04-13 9100 mL (2.[address] (PROVENTIL) 00:00: 00:00 total) by Hospita 2.5 mg/0.5 00 :00 nebulizati l mL solution on daily for as needed nebulizatio for n wheezing (SOB) for up to 15 doses. albuterol 2021- No [id number] 2.5mg Q24H Take 0.5 [facility] sulfate 04-13 9100 mL (2.[address] (PROVENTIL) 00:00: 00:00 total) by Hospita 2.5 mg/0.5 00 :00 nebulizati l mL solution on daily for as needed nebulizatio for n wheezing (SOB) for up to 15 doses. digOXIN 2020- No [id number] TAKE 1 [facility] (LANOXIN) 04-04 TABLET [...] :00 total) by l mouth daily. semaglutide 2021-0 Yes Inject UT (Ozempic, 1 5-19 under the Hea lth MG/DOSE,) 2 17:39: skin. MG/1.5ML 40 solution pen-injecto r semaglutide 1-0 Yes Inject UT (Ozempic, 1 5-19 under [...] skin. MG/1.5ML 40 solution pen-injecto r semaglutide 202-0 Yes Inject UT (Ozempic, 1 [...] 39 (one) time tablet each day. nitroglycer Yes .4mg Place 0.4 U T in [...] UNTIL FASTING SUGAR LESS THAN 120 Tresiba 0 Yes INJECT 70 UT FlexTouch 5-12 UNITS IN Health 200 UNIT/ML 00:00: MORNING injection 00 AND INCREASE BY 2 UNITS EVERY 3 DAYS UNTIL FASTING SUGAR LESS THAN 120 Tresiba 0 Yes INJECT 70 UT FlexTouch 5-12 UNITS IN Health 200 UNIT/ML 00:00: MORNING injection 00 AND INCREASE BY 2 UNITS EVERY 3 DAYS UNTIL FASTING SUGAR LESS THAN 120 Tresiba 0 Yes INJECT 70 UT FlexTouch 5-12 UNITS IN Health 200 UNIT/ML 00:00: MORNING injection 00 AND INCREASE BY 2 UNITS EVERY 3 DAYS UNTIL FASTING SUGAR LESS THAN 120 Tresiba 0 Yes INJECT 70 UT FlexTouch 5-12 UNITS IN Health 200 UNIT/ML 00:00: MORNING injection 00 AND INCREASE BY 2 UNITS EVERY 3 DAYS UNTIL FASTING SUGAR LESS THAN 120 HYDROcodone HYDROcodone Yes SALVADOR 1-2 PO Q 6 UT -Acetaminop -Acetaminop 5-06 MANJARREZ M.D. HRS PRN Physici hen 5-325 hen 5-325 00:00: PAIN ans MG Oral MG Oral 00 Tablet Tablet HYDROcodone 2020-0 Yes 1-2 PO Q 6 UT -acetaminop 5-06 HRS PRN Healt [facility] hen ([place]) 00:00: PAIN 5-325 MG 00 tablet HYDROcodone 2020-0 Yes 1-2 PO Q 6 UT -acetaminop 5-06 HRS PRN [facility]alt [facility] ([place]) 00:00: PAIN 5-325 MG 00 tablet HYDROcodone 2020-0 Yes 1-2 PO Q 6 UT -acetaminop 5-06 HRS PRN [facility]alt [facility] hen ([place]) 00:00: PAIN 5-325 MG 00 tablet HYDROcodone 2020-0 Yes 1-2 PO Q 6 UT -acetaminop 5-06 HRS PRN Healt [facility] hen ([place]) 00:00: PAIN 5-325 MG 00 tablet HYDROcodone 2020-0 Yes 1-2 PO Q 6 UT -acetaminop 5-06 HRS PRN Healt h hen ([place]) 00:00: PAIN 5-325 MG 00 tablet Eliquis [...] pen-injecto (one) time r per week. Trulicity 1-0 Yes .75mg Inject UT 0.75 5-03 0.75 mg Health MG/0.5ML 00:00: under the solution 00 skin 1 pen-injecto (one) time r per week. Trulicity 1-0 Yes .75mg Inject UT 0.75 5-03 0.75 mg Health MG/0.5ML 00:00: under the solution 00 skin 1 pen-injecto (one) time r per week. Trulicity 2020-0 Yes .75mg Inject UT 0.75 5-03 0.75 mg Health MG/0.5ML 00:00: under the solution 00 skin 1 pen-injecto (one) time r per week. dulaglutide 2020-0 Yes 3mg Q7D 0.5 mL (3 M ethodi (TRULICITY) 5-03 mg total) st 3 mg/0.5 mL 00:00: once a Hosp chau subcutaneou 00 week. l s pen dulaglutide 2020-0 Yes 3mg Q7D 3 mg once M ethodi (TRULICITY) 5-[address] 3 mg/0.5 mL 00:00: Hospit a subcutaneou 00 l s pen dulaglutide 1-0 Yes 3mg Q7D 3 mg once M [...] at night capsule 00 if needed. tiZANidine 1-0 Yes 2mg QD Take 2 [...] Take 1 Met [facility]odi n (CRESTOR) 4-07 01-26 tablet (40 s t 40 MG 00:00: 00:00 mg total) Hospit a tablet 00 :00 by mouth l nightly. rosuvastati 2021- No 40mg QD Take 1 Met [facility] n (CRESTOR) 4-23 -26 tablet (40 s t 40 MG 00:00: 00:00 mg total) Hospit a tablet 00 :00 by mouth l nightly. rosuvastati 2021- No 40mg QD Take 1 Met [facility]odi n (CRESTOR) 4-07 01-26 tablet (40 s t 40 MG 00:00: 00:00 mg total) Hospit a tablet 00 :00 by mouth l nightly. rosuvastati No 40mg QD Take 1 Met [facility] n (CRESTOR) 01-07 tablet (40 s t 40 MG 00:00: [...] 12.5mg Q.5D Take 1 [facility] (COREG) 2 12- tablet st 12.5 MG 00:00: 00:00 [...] 12.5mg Q.5D Take 1 [facility] (COREG) -04 28- tablet st 12.5 MG 00:00: 00:00 (12.5 mg Hospi ta tablet 00 :00 total) by l mouth 2 (two) times a day with meals. Eliquis 5 2019-09- No [id number] TAKE 1 [facility] mg tablet 2- TABLET BY st 00:00: 00:00 MOUTH Hospita 00 :00 TWICE A l DAY Eliquis 5 2019-09- No [id number] TAKE 1 [facility] mg tablet 2- TABLET BY st 00:00: 00:00 MOUTH Hospita 00 :00 TWICE A l DAY Eliquis 5 2019-09- No [id number] TAKE 1 [facility] mg tablet 2- TABLET [...] TAKE 3 UT jassi 9-03 TABLETS BY [email or web address] (Reglan) 10 00:00: MOUTH MG tablet 00 [...] Spirit 00:00: 00:00 - [facility] 00 [facility]00 [facility] Tresiba Tresiba 2018- 2019- No Elizabeth 70 units C ommon FlexTouch FlexTouch 12-27 04 [place] in am and Spirit 00:00: 00:00 increase [...] Medical 00 (TWO) Center TIMES DAILY. ENTRESTO 2022- No TAKE [address] 24-26 mg 7-19 04-22 TABLET BY [facility] Tab 00:00: 00:00 MOUTH 2 Medical 00 :00 (TWO) Center TIMES DAILY. linagliptin Yes type [...] 2.5-1,000 43 daily. Center mg Tab glimepiride 2018-0 Yes 2mg QD Take [address] (AMARYL) 2 6-29 by mouth [facility] tablet 08:04: every Medical 43 evening . Center linagliptin 2018-0 Yes type 2 1{tbl} QD Take [address] -metformin 6-29 diabetes tablet by [facility] ([facility]UETO 08:04: mellitus mouth M edical ) 2.5-1,000 43 daily. Center mg Tab glimepiride 2018-0 Yes 2mg QD Take [address] (AMARYL) 2 6-29 by mouth [facility] MG tablet 08:04: every Medical 43 evening . Center digoxin Yes TAKE [address] (LANOXIN) 6-05 TABLET [facility] 0.125 MG 00:00: (125 MCG Medic al tablet 00 TOTAL) BY Center MOUTH DAILY. digoxin Yes TAKE [address] (LANOXIN) 6-05 TABLET [facility] 0.125 MG 00:00: (125 MCG Medic al tablet 00 TOTAL) BY Center MOUTH DAILY. digoxin Yes TAKE [address] (LANOXIN) 6-05 TABLET [facility] 0.125 MG 00:00: (125 MCG Medic al tablet 00 TOTAL) BY Center MOUTH DAILY. digoxin 2022- No TAKE [address] (LANOXIN) 6-05 04-22 TABLET [facility] 0.125 MG 00:00: 00:00 (125 MCG Medi jordin tablet 00 :00 TOTAL) BY Center MOUTH DAILY. magnesium Yes TAKE [address] oxide 4-27 TABLETS [facility] (MAG-OX) 00:00: (800 MG Medica l 400 mg 00 TOTAL) BY Center tablet MOUTH 2 (TWO) TIMES DAILY FOR 30 DAYS. magnesium Yes TAKE [address] oxide 4-27 TABLETS [facility] (MAG-OX) 00:00: (800 MG Medica l 400 mg 00 TOTAL) BY Center tablet MOUTH 2 (TWO) TIMES DAILY FOR 30 DAYS. magnesium 0 Yes TAKE [address] oxide 4-27 TABLETS [facility] (MAG-OX) 00:00: (800 MG Medica l 400 mg 00 TOTAL) BY Center tablet MOUTH 2 (TWO) TIMES DAILY FOR 30 DAYS. magnesium 2022- No TAKE 2 [facility] t oxide 4-27 -22 TABLETS [facility] (MAG-OX) 00:00: 00:00 (800 MG Medic al 400 mg 00 :00 TOTAL) BY Center tablet MOUTH 2 (TWO) TIMES DAILY FOR 30 DAYS. magnesium 2018-0 Yes 400mg Q.5D Take 400 UT oxide 3-28 mg by Health ([facility]) 00:00: mouth 400 MG 00 twice a tablet day. magnesium 2018-0 Yes 400mg Q.5D Take 400 UT oxide 3-28 mg by [facility] ([facility]) 00:00: mouth 400 MG 00 twice a tablet day. magnesium 2018-0 Yes 400mg Q.5D Take 400 UT oxide 3-28 mg by Health [place] [place] [place] 00:00: mouth 400 MG 00 twice a tablet day. magnesium 2018-0 Yes 400mg Q.5D Take 400 UT oxide 3-28 mg by [facility] ([facility]) 00:00: mouth 400 MG 00 twice a tablet day. magnesium 2018-0 Yes 400mg Q.5D Take 400 UT oxide 3-28 mg by [facility] ([facility]) 00:00: mouth 400 MG 00 twice a tablet day. Digoxin Digoxin 0 Yes Elizabeth 1 tablet Co mmon 2-20 [place] [facility] 00:[facility]: - [facility] 00 [facility] Amiodarone Amiodarone 2017-0 Yes Elizabeth 1 tablet Common HCl HCl 2-20 [place] [facility] 00:00: - [facility] 00 [facility] Bumetanide Bumetanide 2017-0 Yes Elizabeth as Common 2-20 [place] directed Spirit 00:00: - [facility] 00 [facility] Amiodarone Amiodarone 2017-0 No 1{table QD Amiodarone HCl 400 MG HCl 400 MG 2-20 t} HCl 400 MG 00:00: 00 Digoxin 125 Digoxin 125 2017-0 No 1{table QD Digoxin MCG MCG 2-20 t} 125 MCG 00:00: 00 Bumetanide Bumetanide 2017-0 No Bumetanide 1 MG 1 MG 2-20 1 MG 00:00: 00 Digoxin 125 Digoxin 125 2018-0 No 1{table QD Digoxin MCG MCG 2-20 t} 125 MCG 00:00: 00 Bumetanide Bumetanide 2017-0 No Bumetanide 1 MG 1 MG 2-20 1 MG 00:00: 00 Amiodarone Amiodarone 2018-0 No 1{table QD Amiodarone [...] Yes Comments: U T valsartan 2-21 | [employer]) 00:00: Date: Jan 08 MG 2017 tablet [...] tablet 00:00: (one) time 00 each day. amiodarone 2016-09 Yes 200mg QD Take 1 [...] (two) times daily with breakfast and dinner. aspirin 81 2016-09 Yes 81mg QD Take 81 mg U T MG EC 2-21 by mouth 1 Health tablet 00:00: (one) time 00 each day. sacubitril- 2016-09 Yes Comments: U T valsartan 2-21 | Filled Health (Entresto) 00:00: Date: Jan 08 MG 2017 tablet 12:00AM | Patient Notes: TAKE 1 TABLET BY MOUTH 2 (TWO) TIMES DAILY. Duration: 30 amiodarone 2016-09- No 200mg QD Take [address] (PACERONE) 2-21 -22 tablet [facility] 200 MG 00:00: 00:00 (200 mg Medical tablet 00 :00 total) by Center mouth daily. fenofibrate 2016-09 No 145mg QD Take [address] (TRICOR) 2-21 -22 tablet [facility] 145 MG 00:00: 00:00 (145 mg Medical tablet 00 :00 total) by Center mouth daily. carvedilol 2016-09- No 12.5mg Take [address] (COREG) 11-07 tablet [facility] 12.5 MG 00:00: 00:00 (12.5 mg Medic al tablet 00 :00 total) by Center mouth 2 (two) times daily with breakfast and dinner. Albuterol Albuterol No 3{ml_as QID Albuterol Sulfate [...] 200 No Tresiba units/mL units/mL 200 units/mL Nitroglycer Nitroglycer No Nitroglyce in 0.4 MG in 0.4 MG rin 0.4 MG Carvedilol Carvedilol No 1{table BID Carvedilol 12.5 MG 12.5 MG t_with_ 12.5 MG food} Fenofibrate Fenofibrate No 1{table QD Fenofibrat 145 MG 145 MG t} e 145 MG Eliquis 5 Eliquis 5 No BID Eliquis 5 MG MG MG Glucometer Glucometer No Glucometer n/s n/s n/s Trulicity Trulicity No Trulicity 0.75 0.75 0.75 MG/0.5ML MG/0.5ML MG/0.5ML Eliquis 5 Eliquis 5 No Eliquis 5 mg 5 mg mg 5 mg mg 5 mg Digoxin 125 Digoxin 125 No Digoxin MCG MCG 125 MCG Glimepiride Glimepiride No Glimepirid 2 MG 2 MG e 2 MG Ozempic 1 Ozempic 1 No Ozempic 1 MG/DOSE MG/DOSE MG/DOSE Magnesium Magnesium No 1{table BID Magnesium Oxide 400 Oxide 400 t_as_ne Oxide 400 MG MG eded} MG tiZANidine tiZANidine No tiZANidine HCl 2 MG HCl 2 MG HCl 2 MG Lokelma 5 Lokelma 5 No Lokelma 5 GM GM GM Furosemide Furosemide No 1{table QD Furosemide 40 MG 40 MG t} 40 MG Entresto Entresto No BID Entresto 97/103mg 97/103mg 97/103mg 97/103mg 97/103mg 97/103mg Rosuvastati Rosuvastati No 1{table QD Rosuvastat n Calcium n Calcium t} in Calcium 40 MG 40 MG 40 MG Aspir-81 81 Aspir-81 81 No 1{table QD Aspir-81 MG MG t} 81 MG Crestor 20 Crestor 20 No 1{table QD Crestor 20 MG MG t} MG Ozempic (1 Ozempic (1 No Ozempic (1 MG/DOSE) 2 MG/DOSE) 2 MG/DOSE) 2 MG/1.5ML MG/1.5ML MG/1.5ML NovoFine NovoFine No QD NovoFine Plus 32G X Plus 32G X Plus 32G X 4 MM 4 MM 4 MM Lancets Lancets No Lancets Super Thin Super Thin Super Thin n/s n/s n/s Tricor 145 Tricor 145 No 1{table QD Tricor 145 MG MG t_with_ MG food} Tresiba 200 Tresiba 200 No Tresiba units/mL units/mL 200 units/mL NovoLOG 100 NovoLOG 100 No NovoLOG UNIT/ML UNIT/ML 100 UNIT/ML Albuterol Albuterol No 3{ml_as QID Albuterol Sulfate Sulfate _needed Sulfate (2.5 (2.5 } (2.5 MG/3ML) MG/3ML) MG/3ML) 0.083% 0.083% 0.083% Amoxicillin Amoxicillin No 1{table BID Amoxicilli -Pot -Pot t} n-Pot Clavulanate Clavulanate Clavulanat 875-125 MG 875-125 MG e 875-125 MG Carvedilol Carvedilol No Carvedilol 6.25 MG 6.25 MG 6.25 MG Tresiba Tresiba No Tresiba FlexTouch FlexTouch FlexTouch 200 UNIT/ML 200 UNIT/ML 200 UNIT/ML Albuterol Albuterol No 3{ml_as QID Albuterol Sulfate Sulfate _needed Sulfate (2.5 (2.5 } (2.5 MG/3ML) MG/3ML) MG/3ML) 0.083% 0.083% 0.083% Aspir-81 81 Aspir-81 81 No 1{table QD Aspir-81 MG MG t} 81 MG Lokelma 5 Lokelma 5 No Lokelma 5 GM GM GM Tresiba Tresiba No QD Tresiba FlexTouch FlexTouch FlexTouch 200 UNIT/ML 200 UNIT/ML 200 UNIT/ML Entresto Entresto No .5{tabl BID Entresto 97/103mg 97/103mg et} 97/103mg 97/103mg 97/103mg 97/103mg FreeStyle FreeStyle No FreeStyle Alyssa 2 Alyssa 2 Alyssa 2 Epping - Epping - Epping - tiZANidine tiZANidine No tiZANidine HCl 2 MG HCl 2 MG HCl 2 MG Trulicity 3 Trulicity 3 No Trulicity MG/0.5ML MG/0.5ML 3 MG/0.5ML Nitroglycer Nitroglycer No Nitroglyce in 0.4 MG in 0.4 MG rin 0.4 MG Furosemide Furosemide No 1{table QD Furosemide 40 MG 40 MG t} 40 MG Fenofibrate Fenofibrate No 1{table QD Fenofibrat 145 MG 145 MG t} e 145 MG Magnesium Magnesium No 1{table BID Magnesium Oxide 400 Oxide 400 t_as_ne Oxide 400 MG MG eded} MG Digoxin 125 Digoxin 125 No Digoxin MCG MCG 125 MCG Rosuvastati Rosuvastati No 1{table QD Rosuvastat n Calcium n Calcium t} in Calcium 40 MG 40 MG 40 MG Carvedilol Carvedilol No 1{table BID Carvedilol 12.5 MG 12.5 MG t_with_ 12.5 MG food} FreeStyle FreeStyle No FreeStyle Alyssa 2 Alyssa 2 Alyssa 2 Sensor - Sensor - Sensor - NovoLOG NovoLOG No TID NovoLOG FlexPen 100 FlexPen 100 FlexPen UNIT/ML UNIT/ML 100 UNIT/ML NovoFine NovoFine No QD NovoFine Plus 32G X Plus 32G X Plus 32G X 4 MM 4 MM 4 MM Eliquis 5 Eliquis 5 No Eliquis 5 mg 5 mg mg 5 mg mg 5 mg Tricor 145 Tricor 145 No 1{table QD [...] Yes [facility] as Co mmon [place] directed [facility] Crestor Crestor Yes Elizabeth 1 tablet Comm on [facility] Nitroglycer Nitroglycer Yes Elizabeth not Common in in [place] defined [facility] Tricor Tricor Yes Elizabeth 1 tablet Common [place] with food [facility] Albuterol Albuterol Yes Elizabeth 3 ml as C ommon Sulfate Sulfate [place] needed [facility] Eliquis Eliquis Yes Elizabeth 1 Common [place] [facility] Entresto Entresto Yes Elizabeth one Common 97/103mg 97/103mg [place] [facility] Glimepiride Glimepiride Yes Elizabeth TAKE 1 Common [place] TABLET AT [facility] BEDTIME [facility] Lancets Lancets Yes Elizabeth one Common Super Thin Super Thin [facility] Glucometer Glucometer Yes Elizabeth one Co mmon [place] [facility] Aspir-81 Aspir-81 Yes Elizabeth 1 tablet Co mmon [place] [facility] NovoFine NovoFine Yes Elizabeth as Common Plus Plus [place] directed [facility] Ozempic 1 Ozempic 1 No Ozempic [...] 2 MG 2 MG e 2 MG Immunizations Ordered Immunization Filled Immunization Date Status Commen ts Source Name Name [facility] HANCOCKAditya 2021-08-03 [facility] 00:00:00 [facility] SANTIAditya 2021-08-03 Completed [facility] MRNA VACCINATION 00:00:00 [facility] SANTIAditya 2021-08-03 Completed [facility] t MRNA VACCINATION 00:00:00 [facility] FLUZONE HIGH DOSE FLUZONE HIGH DOSE 2021-06-17 Completed [facility] - OVER 65 OVER 65 09:06:00 [facility] FLUZONE HIGH DOSE FLUZONE HIGH DOSE 2021-06-17 Completed [facility] - OVER 65 OVER 65 09:06:00 [facility] FLUZONE HIGH DOSE FLUZONE HIGH DOSE 2021-06-17 Completed [facility] - OVER 65 OVER 65 09:06:00 [facility] FLUZONE HIGH DOSE FLUZONE HIGH DOSE 2021-06-17 Completed [facility] - OVER 65 OVER 65 09:06:00 [facility] FLUZONE HIGH DOSE FLUZONE HIGH DOSE 2021-06-17 Completed [facility] - OVER 65 OVER 65 09:06:00 [facility] FLUZONE HIGH DOSE FLUZONE HIGH DOSE 2021-06-17 Completed [facility] - OVER 65 OVER 65 09:06:00 [facility] FLUZONE HIGH DOSE FLUZONE HIGH DOSE 2021-06-17 Completed [facility] - OVER 65 OVER 65 09:06:00 [facility] FLUZONE HIGH DOSE FLUZONE HIGH DOSE 2021-06-17 Completed [facility] - OVER 65 OVER 65 09:06:00 [facility] FLUZONE HIGH DOSE FLUZONE HIGH DOSE 2021-06-17 Completed [facility] - OVER 65 OVER 65 09:06:00 [facility] FLUZONE QUAD 2021-05-26 Completed [facility] FLUZONE QUAD 2021-05-26 Completed [facility] 00:00:00 [facility] FLUZONE QUAD 2021-05-26 Completed [facility] 00:00:00 [facility] FLUZONE QUAD 2021-05-26 Completed [facility] 00:00:00 [facility] Moderna COVID-19 Moderna COVID-19 2021-01-15 Completed [facility] - Vaccine Vaccine 09:07:00 [facility] Moderna COVID-19 Moderna COVID-19 2021-01-15 Completed [facility] - Vaccine Vaccine 09:07:00 [facility] Moderna COVID-19 Moderna COVID-19 2021-01-15 Completed Co [facility] - Vaccine Vaccine 09:07:00 [facility] Moderna COVID-19 Moderna COVID-19 2021-01-15 Completed Co [facility] - Vaccine Vaccine 09:07:00 [facility] Moderna COVID-19 Moderna COVID-19 2021-01-15 Completed Co [facility] - Vaccine Vaccine 09:07:00 [facility] Moderna COVID-19 Moderna COVID-19 2021-01-15 Completed [facility] - Vaccine Vaccine 09:07:00 [facility] Moderna COVID-19 Moderna COVID-19 2021-01-15 Completed [facility] - Vaccine Vaccine 09:07:00 [facility] Moderna COVID-19 Moderna COVID-19 2021-01-15 Completed [facility] - Vaccine Vaccine 09:07:00 [facility] Moderna COVID-19 Moderna COVID-19 2021-01-15 Completed [facility] - Vaccine Vaccine 09:07:00 [facility] MODERNA COVID-19 2021-01-15 Completed [facility] MRNA VACCINATION 00:00:00 [facility] MODERNA COVID-19 2021-01-15 Completed [facility] MRNA VACCINATION 00:00:00 [facility] MODERNA COVID-19 2021-01-15 Completed [facility] MRNA VACCINATION 00:00:00 [facility] MODERNA COVID-19 2021-01-15 Completed [facility] MRNA VACCINATION 00:00:00 [facility] Moderna COVID-19 Moderna COVID-19 2020-12-16 Completed [facility] - Vaccine Vaccine 09:07:00 [facility] Moderna COVID-19 Moderna COVID-19 2020-12-16 Completed [facility] - Vaccine Vaccine 09:07:00 [facility] Moderna COVID-19 Moderna COVID-19 2020-12-16 Completed [facility] - Vaccine Vaccine 09:07:00 [facility] Moderna COVID-19 Moderna COVID-19 2020-12-16 Completed [facility] - Vaccine Vaccine 09:07:00 [facility] Moderna COVID-19 Moderna COVID-19 2020-12-16 Completed [facility] Vaccine 09:07:00 [facility] Moderna COVID-19 Moderna COVID-19 2020-12-16 Completed [facility] Vaccine 09:07:00 [facility] Moderna COVID-19 Moderna COVID-19 2020-12-16 Completed [facility] Vaccine 09:07:00 [facility] Moderna COVID-19 Moderna COVID-19 2020-12-16 Completed [facility] Vacc[facility] 09:07:00 [facility] Moderna COVID-19 Moderna COVID-19 2020-12-16 Completed [facility] Vacc[facility] 09[facility]07:00 [facility] MODERNA COVID-19 2020-12-16 [facility]00 [facility] MODERNA COVID-19 2020-12-16 [facility] MODERNA COVID-19 2020-12-16 [facility] VACCINATION 00:00:00 [facility] COVID-19 2020-12-16 Com[facility] [...] [facility] SARS-[facility]-2 [facility]:00:00 Vaccination [facility] COVID-19 2020-10-26 Completed [facility] MRNA VACCINATION 00:00:00 [facility] Covid-19 [facility] 2020[facility] SARS-CoV-2 00:00:00 Vaccination [facility] COVID-19 2020-10-26 Completed [facility] MRNA VACCINATION 00:00:00 [facility] COVID-19 2020-10-26 Completed [facility] VACCINATION 00:00:00 [facility] COVID-19 2020-10-26 Completed [facility] VACCINATION 00:00:00 [facility] Covid-19 [facility] 2020-10-26 [facility] SARS-CoV-2 00:00:00 Vaccination Covid-19 [facility] 2020-10-26 [facility] SARS-CoV-2 00:00:00 Vaccination Covid-19 [facility] 2020-10-26 [facility] SARS-CoV-2 00:00:00 Vaccination [facility] COVID-19 2020-09-29 Completed [facility] VACCINATION 00:00:00 [facility] COVID-19 2020-09-29 Completed [facility]RNA VACCINATION 00:00:00 [facility] COVID-19 2020-09-29 Completed [facility] VACCINATION 00:00:00 [facility] COVID-19 2020-09-29 Completed [facility] MRNA VACCINATION 00:00:00 [facility] Covid-19 [facility] 2020-09-29 [facility] SARS-CoV-2 00:00:00 Vaccination Covid-19 [facility] 2020-09-29 [facility] SARS-CoV-2 00:00:00 Vaccination Covid-19 [facility] 2020-09-29 [facility] SARS-CoV-2 00:00:00 Vaccination Covid-19 [facility] 2020-09-29 [facility] SARS-CoV-2 00:00:00 Vaccination Covid-19 [facility] 2020-09-29 [facility] SARS-CoV-2 00:00:00 Vaccination [facility]AX QUAD PF 2020-06-[address] [facility] FL[facility]ELVAX QUAD PF 2020-06-[address] [facility] FLUCELVAX QUAD PF 2020-06-[address] [facility] FLUCELVAX QUAD PF 2020-06-[address] [facility] FluAD FluAD 2019-06-12 [facility] FluAD FluAD 2019-06-12 [facility]01: [facility] FluAD FluAD 2019-06-12 Com[facility] 17[facility]01: [facility] FluAD FluAD 2019-06-12 Completed [facility] 17[facility]01: [facility] FluAD FluAD 2019-06-12 Completed [facility] 17:01:00 [facility] FluAD FluAD 2019-06-12 Completed [facility] 17:01:00 [facility] FluAD FluAD 2019-06-12 Completed [facility] 17:01:00 [facility] FluAD FluAD 2019-06-12 Completed [facility] 17:01:00 [facility] FluAD FluAD 2019-06-12 Completed [facility] 17:01:00 [facility] FluAD FluAD 2019-06-12 Completed [facility] 17:01:00 [facility] FluAD FluAD 2019-06-12 Completed [facility] 17:01:00 [facility] FluAD FluAD 2019-06-12 Completed [facility] 17:01:00 [facility] FluAD FluAD 2019-06-12 Completed [facility] 17:01:00 [facility] FluAD FluAD 2019-06-12 Completed [facility] 17:01:00 [facility] FluAD FluAD 2019-06-12 Completed [facility] 17:01:00 [facility] FluAD FluAD 2019-06-12 Completed [facility] 00:[facility]:00 [facility] FLUAD PF 2019-06-12 Completed [facility]00 [facility] FLUAD PF 2019-06-12 Completed [facility] 00:00:00 [facility] FLUAD PF 2019-06-12 Completed [facility] 00:00:00 Hospital FLUAD PF 2019-06-12 Completed [facility] 00:00:00 [facility] FLUCELVAX QUAD PF 2018-05-24 Completed [...] injectable, MDCK, 00:00:00 preservative free, quadrivalent Influenza (IM) 2017-07-05 Completed [facility] Influenza (IM) 2017-07-05 Completed [facility] Preservative Free 00:00:00 [facility] Influenza (IM) 2017-07-05 Completed [facility] Preservative Free 00:00:00 [facility] Influenza (IM) 2017-07-05 Completed [facility] Preservative Free 00:00:00 [facility] Influenza, seasonal, 2017-07-05 [facility], [facility]00 preservative free Influenza, seasonal, 2017-07-05 [facility] inject[facility], [facility]:00:00 preservative free Influenza, seasonal, 2017-07-05 [facility], [facility]:00 preservative free Influenza, seasonal, 2017-07-05 [facility], [facility]:00 preservative free Influenza TIV (IM) 2017-07-[address] [facility] 00:00:00 [facility] Influenza TIV (IM) 2017-07-[address] [facility] 00:00:00 [facility] Influenza TIV (IM) 2017-07-[address] [facility] 00:00:00 [facility] Influenza TIV (IM) 2017-07-[address] [facility] 00:00:00 [facility] Influenza, seasonal, 2017-07-05 Completed [facility] inject[facility], 00:00:00 preservative free Vital Signs Vital Name Observation Time Observation Value Comments Source WEIGHT 2023-01-06 06:00:00 70.308 kg WEIGHT 2023-01-05 06:00:00 70.398 kg WEIGHT 2023-01-04 03:00:00 67 kg WEIGHT 2023-01-03 04:37:00 74.2 kg WEIGHT 2023-01-01 06:00:00 77.4 kg WEIGHT 2022-12-31 04:00:00 74.6 kg WEIGHT 2022-12-28 06:00:00 79.2 kg WEIGHT 2022-12-27 06:00:00 78.5 kg WEIGHT 2022-12-26 05:00:00 75.6 kg WEIGHT 2022-12-25 05:00:00 79.1 kg WEIGHT 2022-12-24 04:00:00 79 kg WEIGHT 2022-12-23 06:00:00 80.1 kg HEIGHT 2022-12-22 08:00:00 162.6 cm WEIGHT 2022-12-22 08:00:00 79.3 kg HEIGHT 2022-12-21 07:41:00 162.6 cm WEIGHT 2022-12-21 07:41:00 80.2 kg WEIGHT 2022-12-21 06:00:00 80.4 kg WEIGHT 2022-12-20 06:00:00 78.6 kg WEIGHT 2022-12-19 06:00:00 78.9 kg WEIGHT 2022-12-18 05:57:00 78.7 kg WEIGHT 2022-12-17 06:00:00 77.9 kg HEIGHT 2022-12-16 07:00:00 162.6 cm WEIGHT 2022-12-16 07:00:00 77.4 kg WEIGHT 2022-12-16 06:00:00 73.8 kg WEIGHT 2022-12-15 05:00:00 75 kg HEIGHT 2022-12-14 18:20:00 162.6 cm WEIGHT 2022-12-14 18:20:00 75.07 kg WEIGHT 2023-01-06 06:00:00 70.308 kg WEIGHT 2023-01-05 06:00:00 70.398 kg WEIGHT 2023-01-04 03:00:00 67 kg WEIGHT 2023-01-03 04:37:00 74.2 kg WEIGHT 2023-01-01 06:00:00 77.4 kg WEIGHT 2022-12-31 04:00:00 74.6 kg WEIGHT 2022-12-28 06:00:00 79.2 kg WEIGHT 2022-12-27 06:00:00 78.5 kg WEIGHT 2022-12-26 05:00:00 75.6 kg WEIGHT 2022-12-25 05:00:00 79.1 kg WEIGHT 2022-12-24 04:00:00 79 kg WEIGHT 2022-12-23 06:00:00 80.1 kg HEIGHT 2022-12-22 08:00:00 162.6 cm WEIGHT 2022-12-22 08:00:00 79.3 kg HEIGHT 2022-12-21 07:41:00 162.6 cm WEIGHT 2022-12-21 07:41:00 80.2 kg WEIGHT 2022-12-21 06:00:00 80.4 kg WEIGHT 2022-12-20 06:00:00 78.6 kg WEIGHT 2022-12-19 06:00:00 78.9 kg WEIGHT 2022-12-18 05:57:00 78.7 kg WEIGHT 2022-12-17 06:00:00 77.9 kg HEIGHT 2022-12-16 07:00:00 162.6 cm WEIGHT 2022-12-16 07:00:00 77.4 kg WEIGHT 2022-12-16 06:00:00 73.8 kg WEIGHT 2022-12-15 05:00:00 75 kg HEIGHT 2022-12-14 18:20:00 162.6 cm WEIGHT 2022-12-14 18:20:00 75.07 kg WEIGHT 2023-01-06 06:00:00 70.308 kg WEIGHT 2023-01-05 06:00:00 70.398 kg WEIGHT 2023-01-04 03:00:00 67 kg WEIGHT 2023-01-03 04:37:00 74.2 kg WEIGHT 2023-01-01 06:00:00 77.4 kg WEIGHT 2022-12-31 04:00:00 74.6 kg WEIGHT 2022-12-28 06:00:00 79.2 kg WEIGHT 2022-12-27 06:00:00 78.5 kg WEIGHT 2022-12-26 05:00:00 75.6 kg WEIGHT 2022-12-25 05:00:00 79.1 kg WEIGHT 2022-12-24 04:00:00 79 kg WEIGHT 2022-12-23 06:00:00 80.1 kg HEIGHT 2022-12-22 08:00:00 162.6 cm WEIGHT 2022-12-22 08:00:00 79.3 kg HEIGHT 2022-12-21 07:41:00 162.6 cm WEIGHT 2022-12-21 07:41:00 80.2 kg WEIGHT 2022-12-21 06:00:00 80.4 kg WEIGHT 2022-12-20 06:00:00 78.6 kg WEIGHT 2022-12-19 06:00:00 78.9 kg WEIGHT 2022-12-18 05:57:00 78.7 kg WEIGHT 2022-12-17 06:00:00 77.9 kg HEIGHT 2022-12-16 07:00:00 162.6 cm WEIGHT 2022-12-16 07:00:00 77.4 kg WEIGHT 2022-12-16 06:00:00 73.8 kg WEIGHT 2022-12-15 05:00:00 75 kg HEIGHT 2022-12-14 18:20:00 162.6 cm WEIGHT 2022-12-14 18:20:00 75.07 kg Systolic blood 2022-10-13 20:00:00 148 mm[Hg] Univer sity of pressure [facility] Diastolic blood 2022-10-13 20:00:00 96 mm[Hg] Unive rsity of pressure [facility] Heart rate 2022-10-13 20:00:00 69 /min Universi ty of [facility] Respiratory rate 2022-10-13 20:00:00 21 /min [facility] Oxygen saturation in 2022-10-13 20:00:00 95 /min University of Arterial blood by [facility] Pulse oximetry Branch Body temperature 2022-10-13 17:13:00 36.11 Roberta [facility] ersity of [facility] Body weight 2022-10-13 10:00:00 78.835 kg Universi ty of [facility] BMI 2022-10-13 10:00:00 29.83 kg/m2 Universi ty [facility] Body height 2022-10-11 20:53:00 162.6 cm Universi ty [facility] Systolic blood 2022-09-22 18:30:00 146 mm[Hg] Univer sity of pressure [facility] Diastolic blood 2022-09-22 18:30:00 72 mm[Hg] Unive rsity of pressure [facility] Heart rate 2022-09-22 18:30:00 59 /min Universi ty [facility] Respiratory rate 2022-09-22 18:30:00 22 /min [facility] Oxygen saturation in 2022-09-22 18:30:00 96 /min [facility] Arterial blood by [facility] Pulse oximetry Branch Body temperature 2022-09-22 14:33:00 36.39 Roberta [facility] ersity of [facility] Body weight 2022-09-22 14:32:00 87.091 kg Universi ty [facility] height 2022-09-20 14:45:00 64.00 [in_i] [facility] weight 2022-09-20 14:45:00 190 [lb_av] [facility] temperature 2022-09-20 14:45:00 97.7 [degF] Common [facility] bmi 2022-09-20 14:45:00 32.61 kg/m2 [facility] oximetry 2022-09-20 14:45:00 97 % [facility] respiratory rate 2022-09-20 14:45:00 16 /min Comm on [facility] blood pressure 2022-09-20 14:45:00 131 mm[Hg] [facility] systolic [facility] blood pressure 2022-09-20 14:45:00 65 mm[Hg] [facility] diastolic [facility] height 2022-02-28 08:00:00 64.00 [in_i] Common [facility] weight 2022-02-28 08:00:00 194.0 [lb_av] Common [facility] temperature 2022-02-28 08:00:00 97.6 [degF] Common S pirit [facility] bmi 2022-02-28 08:00:00 33.3 kg/m2 Common S [facility] oximetry 2022-02-28 08:00:00 98 % Common [facility] respiratory rate 2022-02-28 08:00:00 16 /min Comm on [facility] blood pressure 2022-02-28 08:00:00 139 mm[Hg] [facility] systolic [facility] blood pressure 2022-02-28 08:00:00 70 mm[Hg] [facility] diastolic [facility] height 2022-02-28 08:00:00 64.00 [in_i] Common [facility] weight 2022-02-28 08:00:00 194.0 [lb_av] [facility] temperature 2022-02-28 08:00:00 97.6 [degF] Common S pirit [facility] bmi 2022-02-28 08:00:00 33.30 kg/m2 [facility] 2022-02-28 08:00:00 98 % Common S [facility] respiratory rate 2022-02-28 08:00:00 16 /min Comm on [facility] blood pressure 2022-02-28 08:00:00 139 mm[Hg] Common [facility] - systolic [facility] blood pressure 2022-02-28 08:00:00 70 mm[Hg] [facility] height 2021-10-27 14:20:00 64.00 [in_i] Common S pirit [facility] weight 2021-10-27 14:20:00 194.4 [lb_av] Common [facility] temperature 2021-10-27 14:20:00 97.3 [degF] Common S pirit [facility] bmi 2021-10-27 14:20:00 33.37 kg/m2 Common S pirit [facility] oximetry 2021-10-27 14:20:00 97 % Common S pirit [facility] respiratory rate 2021-10-27 14:20:00 16 /min Comm on [facility] blood pressure 2021-10-27 14:20:00 133 mm[Hg] Common [facility] - systolic [facility] blood pressure 2021-10-27 14:20:00 67 mm[Hg] [facility] height 2021-08-30 08:00:00 64.00 [in_i] [facility] weight 2021-08-30 08:00:00 193 [lb_av] Common S pirit [facility] temperature 2021-08-30 08:00:00 97.1 [degF] [facility] bmi 2021-08-30 08:00:00 33.12 kg/m2 [facility] S pirit [facility] oximetry 2021-08-30 08:00:00 99 % Common S pirit [facility] blood pressure 2021-08-30 08:00:00 109 mm[Hg] [facility] systolic [facility] blood pressure 2021-08-30 08:00:00 54 mm[Hg] [facility] diastolic [facility] height 2021-08-30 08:40:00 64.00 [in_i] Common S pirit [facility] weight 2021-08-30 08:40:00 193 [lb_av] Common [facility]irit [facility] temperature 2021-08-30 08:40:00 97.1 [degF] Common S pirit - [facility] bmi 2021-08-30 08:40:00 33.12 kg/m2 [facility] S [facility] oximetry 2021-08-30 08:40:00 99 % [facility] blood pressure 2021-08-30 08:40:00 109 mm[Hg] [facility] systolic [facility] blood pressure 2021-08-30 08:40:00 54 mm[Hg] [facility] - diastolic [facility] height 2021-06-06 08:20:00 64.00 [in_i] [facility] weight 2021-06-06 08:20:00 192.8 [lb_av] [facility] temperature 2021-06-06 08:20:00 95.1 [degF] [facility] bmi 2021-06-06 08:20:00 33.09 kg/m2 [facility] oximetry 2021-06-06 08:20:00 95 % [facility] blood pressure 2021-06-06 08:20:00 113 mm[Hg] Common [facility] - systolic [facility] blood pressure 2021-06-06 08:20:00 56 mm[Hg] Common [facility] - diastolic [facility] height 2021-05-03 08:00:00 64.00 [in_i] [facility] weight 2021-05-03 08:00:00 191.6 [lb_av] [facility] temperature 2021-05-03 08:00:00 97.3 [degF] [facility] bmi 2021-05-03 08:00:00 32.88 kg/m2 [facility] oximetry 2021-05-03 08:00:00 99 % [facility] respiratory rate 2021-05-03 08:00:00 15 /min Comm on [facility] blood pressure 2021-05-03 08:00:00 127 mm[Hg] [facility] systolic [facility] blood pressure 2021-05-03 08:00:00 59 mm[Hg] [facility] diastolic [facility] Systolic blood 2023-01-07 08:32:00 115 mm[Hg] [facility] Diastolic blood 2023-01-07 08:32:00 58 mm[Hg] [facility] Heart rate 2023-01-07 08:32:00 98 /min [facility] Body temperature 2023-01-07 08:32:00 36.22 Roberta [facility] Respiratory rate 2023-01-07 08:32:00 18 /min [facility] Oxygen saturation in 2023-01-07 08:32:00 99 /min [facility] Arterial blood by Medical Ce [facility]ter Pulse oximetry Body weight 2023-01-06 06:00:00 70.308 kg [facility] BMI 2023-01-06 06:00:00 26.59 kg/m2 [facility] Body height 2022-12-22 08:00:00 162.6 cm [facility] Systolic blood 2022-12-13 15:42:00 100 mm[Hg] Method [facility] pressure Diastolic blood 2022-12-13 15:42:00 65 mm[Hg] [facility] pressure Heart rate 2022-12-13 15:42:00 86 /min [facility] Body temperature 2022-12-13 15:42:00 36.17 Roberta [facility] Body height 2022-12-13 15:42:00 162.6 cm [facility] Body weight 2022-12-13 15:42:00 77.066 kg [facility] BMI 2022-12-13 15:42:00 29.16 kg/m2 [facility] Oxygen saturation in 2022-12-13 15:42:00 100 /min [facility] Arterial blood by Pulse oximetry Respiratory rate 2022-12-05 19:01:00 16 /min [facility] Systolic blood 2022-07-12 19:35:00 132 mm[Hg] Method [facility] pressure Diastolic blood 2022-07-12 19:35:00 76 mm[Hg] [facility] pressure Heart rate 2022-07-12 19:35:00 81 /min [facility] Body height 2022-07-12 19:35:00 162.6 cm [facility] Body weight 2022-07-12 19:35:00 86.456 kg [facility] BMI 2022-07-12 19:35:00 32.72 kg/m2 [facility] Oxygen saturation in 2022-07-12 19:35:00 100 /min [facility] Arterial blood by Pulse oximetry Systolic blood 2022-06-14 13:59:00 121 mm[Hg] [facility] pressure Diastolic blood 2022-06-14 13:59:00 72 mm[facility]Hg[facility] Heart rate 2022-06-14 13:59:00 70 /min [facility] Body temperature 2022-06-14 13:59:00 36.67 Roberta [facility] Body height 2022-06-14 13:59:00 162.6 cm [facility] Body weight 2022-06-14 13:59:00 86.183 kg [facility] BMI 2022-06-14 13:59:00 32.61 kg/m2 [facility] Oxygen saturation in 2022-06-14 13:59:00 98 /min [facility] Arterial blood by Pulse oximetry Systolic blood 2022-04-27 20:51:00 128 mm[Hg] [facility] pressure Diastolic blood 2022-04-27 20:51:00 61 mm[Hg] [facility] Heart rate 2022-04-27 20:51:00 63 /min [facility] Body temperature 2022-04-27 20:51:00 36.5 Roberta [facility] Respiratory rate 2022-04-27 20:51:00 15 /min [facility] Oxygen saturation in 2022-04-27 20:30:00 97 /min [facility] Arterial blood by Pulse oximetry Body height 2022-04-27 13:26:00 162.6 cm [facility] Body weight 2022-04-27 13:26:00 87.7 kg [facility] BMI 2022-04-27 13:26:00 33.19 kg/m2 [facility] Systolic blood 2020-10-07 10:03:00 119 mm[facility]Hg] [facility] Diastolic blood 2020-10-07 10:03:00 63 mm[Hg] [facility] Heart Rate 2020-10-07 10:03:00 95 /min [facility] Procedure Date / Time Performing Clinician Source Performed BASIC METABOLIC PANEL 2023-01-07 04:43[facility] MAGNESIUM 2023-01-07 04:43:00 [facility] PHOSPHORUS 2023-01-07 04:43:[address] [facility] HEPATIC FUNCTION PANEL 2023-01-07 04:43:00 Gaurang [facility] CBC W/PLT COUNT & AUTO 2023-01-07 04:42:[address] [facility] PH, VENOUS 2023-01-07 04:42[facility]00 [facility] AUTO 2023-01-07 04:42:[address] [facility] POCT-GLUCOSE METER 2023-01-06 12:25:00 Gaurang [facility] POCT-GLUCOSE METER 2023-01-06 06:26:00 Gaurang [facility] CBC W/PLT COUNT & AUTO 2023-01-06 04:24:[address] [facility] PHOSPHORUS 2023-01-06 04:24:00 FaribaSandip love [facility] BASIC METABOLIC PANEL 2023-01-06 04:24:00 [facility] MAGNESIUM 2023-01-06 04:24:00 [facility] PH, VENOUS 2023-01-06 04:24[facility] AUTO 2023-01-06 04:24:00 Althea Zuniga [facility] POCT-GLUCOSE METER 2023-01-05 20:40:00 Gaurang [facility] POCT-GLUCOSE METER 2023-01-05 16:21:00 Gaurang [facility] BASIC METABOLIC PANEL 2023-01-05 15:52:00 [facility] MAGNESIUM 2023-01-05 15:52:00 [facility] POCT-GLUCOSE METER 2023-01-05 11:21:00 Gaurang [facility] XR CHEST 1 VIEW PORTABLE / 2023-01-05 10:08[facility]SE [facility] 2023-01-05 06:41:00 Gaurang [facility] CBC W/PLT COUNT & AUTO 2023-01-05 04:10:[address] [facility] PHOSPHORUS 2023-01-05 04:10:00 Sandip Link [facility] BASIC METABOLIC PANEL 2023-01-05 04:10:00 [facility] MAGNESIUM 2023-01-05 04:10:00 [facility] PH, VENOUS 2023-01-05 04:10:00 Shefali Webb [facility] HEPATIC FUNCTION PANEL 2023-01-05 [facility]O 2023-01-05 04:10:[address] [facility] S [facility] POCT-GLUCOSE METER 2023-01-04 21:38[facility] 2023-01-04 [facility]OL[facility] PANEL 2023-01-04 16:02:00 [facility] MAGNESIUM 2023-01-04 16:02:00 [facility] POCT-GLUCOSE METER 2023-01-04 11:32:00 GaurangLatasha [facility] POCT-GLUCOSE METER 2023-01-04 08:19:00 Gaurang Latasha Haylee [facility] BASIC METABOLIC PANEL 2023-01-04 03:05:00 [facility] MAGNESIUM 2023-01-04 03:05:00 [facility] CBC W/PLT COUNT & AUTO 2023-01-04 03:05:[address] [facility] S [facility] DIFFERENTIAL [facility] PHOSPHORUS 2023-01-04 03:05:00 FaribaSandip love [facility] CBC W/PLT COUNT & AUTO 2023-01-04 03:05:00 Althea Zuniga [facility] POCT-GLUCOSE METER 2023-01-03 20:30:00 [facility] BASIC METABOLIC PANEL 2023-01-03 20:14:00 [facility] MAGNESIUM 2023-01-03 20:14:00 [facility] POCT-GLUCOSE METER 2023-01-03 16:11:00 [facility] BASIC METABOLIC PANEL 2023-01-03 11:50:00 [facility] MAGNESIUM 2023-01-03 11:50:00 [facility] POCT-GLUCOSE METER 2023-01-03 11:28:00 [facility] POCT-GLUCOSE METER 2023-01-03 07:19[facility] 2023-01-03 03:00:00 [facility] MAGNESIUM 2023-01-03 03:00:00 [facility] CBC W/PLT COUNT & AUTO 2023-01-03 03:00:[address] [facility] S [facility] DIFFERENTIAL [facility] PHOSPHORUS 2023-01-03 03:00:00 FaribaSandip love [facility] [facility] CBC W/PLT COUNT & AUTO 2023-01-03 03:00:00 Althea Zuniga [facility] POCT-GLUCOSE METER 2023-01-02 20:13:00 Hotze [facility] BASIC METABOLIC PANEL 2023-01-02 20:07:00 [facility] MAGNESIUM 2023-01-02 20:07:00 Elio, [facility] HEPATIC FUNCTION PANEL 2023-01-02 20:07:00 Rom Ortega [facility] POCT-GLUCOSE METER 2023-01-02 16:14:00 Hotze, [facility] BASIC METABOLIC PANEL 2023-01-02 13:00:00 [facility]io [facility] MAGNESIUM 2023-01-02 13:00:00 Elio, [facility] POCT-GLUCOSE METER 2023-01-02 10:55:00 Hotze, [facility] POCT-GLUCOSE METER 2023-01-02 06:55:00 Hotze, [facility] BASIC METABOLIC PANEL 2023-01-02 04:19:00 Elio [facility] MAGNESIUM 2023-01-02 04:19:00 Elio [facility] CBC W/PLT COUNT & AUTO 2023-01-02 04:19:[address] [facility] PHOSPHORUS 2023-01-02 04:19:[address] Far[address] [facility] CBC W/PLT COUNT & AUTO 2023-01-02 04:19:00 Althea Zuniga [facility] BASIC METABOLIC PANEL 2023-01-01 23:32:00 [facility]io [facility] MAGNESIUM 2023-01-01 23:32:00 Elio [facility] POCT-GLUCOSE METER 2023-01-01 23:27:00 Hotze, [facility] POCT-GLUCOSE METER 2023-01-01 15:46:00 Hotze [facility] BASIC METABOLIC PANEL 2023-01-01 12:02:00 Elio [facility] MAGNESIUM 2023-01-01 12:02:00 Elio, [facility] POCT-GLUCOSE METER 2023-01-01 11:18:00 Hotze, [facility] POCT-GLUCOSE METER 2023-01-01 10:49:00 Hotze, [facility] POCT-GLUCOSE METER 2023-01-01 08:05:00 Hotze, [facility] BASIC METABOLIC PANEL 2023-01-01 03:16:00 Elio [facility] MAGNESIUM 2023-01-01 03:16:00 Elio [facility] CBC W/PLT COUNT & AUTO 2023-01-01 03:16:[address] [facility] PHOSPHORUS 2023-01-01 03:16:00 Fariba, [facility] CBC W/PLT COUNT & AUTO 2023-01-01 03:16:00 Althea Zuniga [facility] BASIC METABOLIC PANEL 2022-12-31 20:26:00 Elio [facility] MAGNESIUM 2022-12-31 20:26:00 Elio [facility] HEPATIC FUNCTION PANEL 2022-12-31 20:26:00 Rom Ortega [facility] POCT-GLUCOSE METER 2022-12-31 16:08:00 Angel Shi [facility] BASIC METABOLIC PANEL 2022-12-31 13:13:00 Elio [facility] MAGNESIUM 2022-12-31 13:13:00 [facility] LACTIC ACID, VENOUS 2022-12-31 13:13:00 Tamiko Carreon [facility] OXYGEN SATURATION, 2022-12-31 13:13:00 Tamiko Carreon [facility] POCT-GLUCOSE METER 2022-12-31 11:07:00 [facility] 2022-[facility]-31 09:37:00 Devyn Kaufman [facility] POCT-GLUCOSE METER 2022-12-31 09:36:00 [facility] BASIC METABOLIC PANEL 2022-12-31 01:00:00 [facility]UM 2022-12-31 01:00:00 [facility] CBC W/PLT COUNT & AUTO 2022-12-31 01:00:[address] [facility] PHOSPHORUS 2022-12-31 01:00:[address] [facility] APTT 2022-12-31 01:00:[address] [facility] CBC W/PLT COUNT & AUTO 2022-12-31 01:00:00 Althea Zuniga [facility] POCT-GLUCOSE METER 2022-12-30 21:49:00 Merchant [facility] APTT 2022-12-30 17:31:00 [facility] BASIC METABOLIC PANEL 2022-12-30 17:31:00 [facility] MAGNESIUM 2022-12-30 17:31:00 [facility] POCT-GLUCOSE METER 2022-12-30 16:15:00 Merchant [facility] POCT-GLUCOSE METER 2022-12-30 11:12:00 Merchant [facility] APTT 2022-12-30 07:41:[address] [facility] BASIC METABOLIC PANEL 2022-12-30 07:41:00 Diaz Phelps [facility] MAGNESIUM 2022-12-30 07:41:00 Diaz Phelps [facility] POCT-GLUCOSE METER 2022-12-30 07:29:00 Merchant [facility] BASIC METABOLIC PANEL 2022-12-30 03:34:00 ElioEva [facility] MAGNESIUM 2022-12-30 03:34:00 ElioEva morales [facility] CBC W/PLT COUNT & AUTO 2022-12-30 03:34:00 FaribaSandip love [facility] DIFFERENTIAL [facility] PHOSPHORUS 2022-12-30 03:34:00 Fariba Sandip [facility] CBC W/PLT COUNT & AUTO 2022-12-30 03:34:00 Althea Zuniga [facility] BASIC METABOLIC PANEL 2022-12-29 20:13:00 ElioEva [facility] MAGNESIUM 2022-12-29 20:13:00 [facility] HEPATIC FUNCTION PANEL 2022-12-29 20:13:00 Rom Ortega [facility] POCT-GLUCOSE METER 2022-12-29 18:29:00 Merchant [facility] POCT-GLUCOSE METER 2022-12-29 11:09:00 Lisat [facility] POCT-GLUCOSE METER 2022-12-29 09:02:00 Merchant [facility] BASIC METABOLIC PANEL 2022-12-29 08:42:00 ElioEva [facility] MAGNESIUM 2022-12-29 08:42:00 [facility] APTT 2022-12-29 08:42:00 Devyn Kaufman [facility] XR CHEST 1 VIEW PORTABLE / 2022-12-29 03:57:00 Althea Zuniga [facility] BEDSIDE [facility] POCT-GLUCOSE METER 2022-12-29 02:06:00 Merchant [facility] BASIC METABOLIC PANEL 2022-12-29 02:05:00 [facility] MAGNESIUM 2022-12-29 02:05:00 Elio [facility] CBC W/PLT COUNT & AUTO 2022-12-29 02:05:[address] [facility] PHOSPHORUS 2022-12-29 02:05:[address] [facility] LACTIC ACID, ARTERIAL 2022-12-29 02:05:00 Rom Ortega [facility] APTT 2022-12-29 02:05:00 Devyn Kaufman [facility] CBC W/PLT COUNT & AUTO 2022-12-29 02:05:00 YuliyaNikaAlthea [facility] (CELLAVISION MANUAL DIFF) 2022-12-29 02:05:00 Althea Zuniga [facility] POCT-GLUCOSE METER 2022-12-28 21:40:00 [facility] BASIC METABOLIC PANEL 2022-12-28 19:34:00 Elio, [facility] MAGNESIUM 2022-12-28 19:34:00 Elio [facility] APTT 2022-12-28 19:34:00 Devyn Kaufman [facility] APTT 2022-12-28 18:25:00 Devyn Kaufman [facility] POCT-GLUCOSE METER 2022-12-28 18:15:00 Merchant [facility] BASIC METABOLIC PANEL 2022-12-28 11:54:00 Elio [facility] MAGNESIUM 2022-12-28 11:54:00 Elio [facility] PROCALCITONIN 2022-12-28 11:54:00 Elio [facility] POCT-GLUCOSE METER 2022-12-28 11:29:00 Merchant [facility] APTT 2022-12-28 09:39:00 Devyn Kaufman [facility] APTT 2022-12-28 07:29:00 Devyn Kaufman [facility] POCT-GLUCOSE METER 2022-12-28 05:38:00 [facility] LACT[facility] ACID, ARTERIAL 2022-12-28 04:45:00 Rom Ortega [facility] HEPATIC FUNCTION PANEL 2022-12-28 04:37:00 Rom Ortega [facility] BASIC METABOLIC PANEL 2022-12-28 04:37:00 ElioEva morales [facility] MAGNESIUM 2022-12-28 04:37:00 Eva Ballard [facility] CBC W/PLT COUNT & AUTO 2022-12-28 04:37:[address] [facility] PHOSPHORUS 2022-12-28 04:37:[address] [facility] CBC W/PLT COUNT & AUTO 2022-12-28 04:37:00 Althea Zuniga [facility] (CELLAVISION MANUAL DIFF) 2022-12-28 04:37:00 Althea Zuniga [facility] XR CHEST 1 VIEW PORTABLE / 2022-12-28 04:36:00 Althea Zuniga [facility] POCT-GLUCOSE METER 2022-12-27 23:59:00 Merchant [facility] POCT-GLUCOSE METER 2022-12-27 20:10:00 Merchant [facility] BASIC METABOLIC PANEL 2022-12-27 20:03:00 Eva Ballard [facility] MAGNESIUM 2022-12-27 20:03:00 Eva Ballard [facility] POCT-GLUCOSE METER 2022-12-27 17:28:00 Merchant [facility] XR CHEST 1 VIEW PORTABLE / 2022-12-27 13:12:00 Steven Shi [facility] BASIC METABOLIC PANEL 2022-12-27 11:29:00 ElioEva morales [facility] MAGNESIUM 2022-12-27 11:29:00 Elio[facility] 2022-12-27 11:29:00 [facility] POCT-GLUCOSE METER 2022-12-27 10:50:00 Merchant [facility] POCT-GLUCOSE METER 2022-12-27 08:02:00 Merchant [facility] XR CHEST 1 VIEW PORTABLE / 2022-12-27 04:52:00 Althea Zuniga [facility] BASIC METABOLIC PANEL 2022-12-27 04:01:00 [facility] MAGNESIUM 2022-12-27 04:01:00 Elio [facility] CBC W/PLT COUNT & AUTO 2022-12-27 04:01:00 Fariba [facility] PHOSPHORUS 2022-12-27 04:01:[address] [facility] LACTIC ACID, ARTERIAL 2022-12-27 04:01:00 Rom Ortega [facility] APTT 2022-12-27 04:01:[address] [facility] CBC W/PLT COUNT & AUTO 2022-12-27 04:01:00 Althea Zuniga [facility] (CELLAVISION MANUAL DIFF) 2022-12-27 04:01:00 Althea Zuniga [facility] BASIC METABOLIC PANEL 2022-12-26 20:00:00 [facility] MAGNESIUM 2022-12-26 20:00:00 Elio, [facility] APTT 2022-12-26 20:00:[address] [facility] APTT 2022-12-26 17:49:[address] [facility] POCT-GLUCOSE METER 2022-12-26 16:09:00 Merchant [facility] LACTIC ACID, VENOUS 2022-12-26 15:57:00 [facility], 2022-12-26 15:57:00 [facility] MEASURED [facility] BASIC METABOLIC PANEL 2022-12-26 11:50:00 Elio [facility] MAGNESIUM 2022-12-26 11:50:00 Elio, [facility] POCT-GLUCOSE METER 2022-12-26 10:59:00 Lisat [facility] APTT 2022-12-26 08:23:[address] [facility] POCT-GLUCOSE METER 2022-12-26 07:26:00 Maria [facility] APTT 2022-12-26 05:48:00 Mandeep [facility] XR CHEST 1 VIEW PORTABLE / 2022-12-26 05:07:00 Althea Zuniga [facility] BEDSIDE [facility] BASIC METABOLIC PANEL 2022-12-26 04:10:00 Elio, [facility] MAGNESIUM 2022-12-26 04:10:00 Elio, [facility] CBC W/PLT COUNT & AUTO 2022-12-26 04:10:00 Fariba [facility] PHOSPHORUS 2022-12-26 04:10:[address] [facility] LACTIC ACID, ARTERIAL 2022-12-26 04:10:00 Rom Ortega [facility] DIGOXIN LEVEL 2022-12-26 04:10:[address] [facility] APTT 2022-12-26 04:10:[address] [facility] CBC W/PLT COUNT & AUTO 2022-12-26 04:10:00 Althea Zuniga [facility] (CELLAVISION MANUAL DIFF) 2022-12-26 04:10:00 Althea Zuniga [facility] POCT-GLUCOSE METER 2022-12-25 23:46:00 Merchant [facility] HEPATIC FUNCTION PANEL 2022-12-25 23:42:00 Rom Ortega [facility] TYPE AND SCREEN, AUTOMATED 2022-12-25 23:42:00 Chuck Castro [facility] BASIC METABOLIC PANEL 2022-12-25 17:53:00 Elio, [facility] MAGNESIUM 2022-12-25 17:53:00 Elio, [facility] POCT-GLUCOSE METER 2022-12-25 16:07:00 Merchant [facility] BASIC METABOLIC PANEL 2022-12-25 12:03:00 Elio, [facility] MAGNESIUM 2022-12-25 12:03:00 Elio, [facility] POCT-GLUCOSE METER 2022-12-25 11:20:00 Merchant [facility] POCT-GLUCOSE METER 2022-12-25 07:42:00 Yinghant [facility] XR CHEST 1 VIEW PORTABLE / 2022-12-25 05:04:00 Althea Zuniga [facility] BEDSIDE [facility] BASIC METABOLIC PANEL 2022-12-25 03:40:00 Elio, [facility] MAGNESIUM 2022-12-25 03:40:00 Elio, [facility] CBC W/PLT COUNT & AUTO 2022-12-25 03:40:00 Sandip Link [facility] DIFFERENTIAL [facility] OXYGEN SATURATION, 2022-12-25 03:40:00 Rom Ortega [facility] PHOSPHORUS 2022-12-25 03:40:00 Sandip Link [facility] LACTIC ACID, ARTERIAL 2022-12-25 03:40:00 Rom Ortega [facility] APTT 2022-12-25 03:40:00 Devyn Kaufman [facility] CBC W/PLT COUNT & AUTO 2022-12-25 03:40:00 Althea Zuniga [facility] (CELLAVISION MANUAL DIFF) 2022-12-25 03:40:00 Althea Zuniga [facility] BASIC METABOLIC PANEL 2022-12-24 19:30:00 [facility] MAGNESIUM 2022-12-24 19:30:00 Elio [facility] APTT 2022-12-24 16:55:[address] [facility] POCT-GLUCOSE METER 2022-12-24 15:58:00 Sengabe [facility] POCT-GLUCOSE METER 2022-12-24 11:20:00 Sengabe [facility] BASIC METABOLIC PANEL 2022-12-24 11:05:00 Elio, [facility] MAGNESIUM 2022-12-24 11:05:00 Elio, [facility] APTT 2022-12-24 11:05:[address] [facility] POCT-GLUCOSE METER 2022-12-24 07:43:00 Sengabe [facility] XR CHEST 1 VIEW PORTABLE / 2022-12-24 04:23:00 Althea Zuniga [facility] BEDSIDE [facility] HEPATIC FUNCTION PANEL 2022-12-24 02:33:00 Rom Ortega [facility] BASIC METABOLIC PANEL 2022-12-24 02:33:00 [facility] MAGNESIUM 2022-12-24 02:33:00 Elio, [facility] CBC W/PLT COUNT & AUTO 2022-12-24 02:33:[address] [facility] OXYGEN SATURATION, 2022-12-24 02:33:00 [facility] PHOSPH[facility]US 2022-12-24 02:33:00 Sandip Link [facility] LACTIC ACID, ARTERIAL 2022-12-24 02:33:00 Rom Ortega [facility] FERRITIN 2022-12-24 02:33:00 Diaz Phelps [facility] IRON, TIBC, % SAT. 2022-12-24 02:33:00 Diaz Phelps [facility] (WITHOUT FERRITIN) [place] STRONGYLOIDES ANTIBODY, 2022-12-24 02:33:00 Rom Ortega [facility] IGG [facility] APTT 2022-12-24 02:33:00 Devyn Kaufman [facility] CBC W/PLT COUNT & AUTO 2022-12-24 02:33:00 Althea Zuniga [facility] DIFFERENTIAL [facility] (CELLAVISION MANUAL DIFF) 2022-12-24 02:33:00 Althea Zuniga [facility] BASIC METABOLIC PANEL 2022-12-23 20:02:00 Elio [facility] MAGNESIUM 2022-12-23 20:02:00 Elio, [facility] POCT-GLUCOSE METER 2022-12-23 16:12:00 Christelle [facility] BASIC METABOLIC PANEL 2022-12-23 11:51:00 Elio [facility] MAGNESIUM 2022-12-23 11:51:00 Elio, [facility] POCT-GLUCOSE METER 2022-12-23 11:01:00 Christelle [facility] POCT-GLUCOSE METER 2022-12-23 07:48:00 Christelle [facility] XR CHEST 1 VIEW PORTABLE / 2022-12-23 04:49:00 Althea Zuniga [facility] BEDSIDE [facility] OXYGEN SATURATION, 2022-12-23 03:02:00 Rom Ortega [facility] MEASURED [facility] CALCIUM, IONIZED 2022-12-23 02:52:00 Rodney Blankenship [facility] BASIC METABOLIC PANEL 2022-12-23 02:50:00 Elio, [facility] MAGNESIUM 2022-12-23 02:50:00 Elio [facility] CBC W/PLT COUNT & AUTO 2022-12-23 02:50:[address] [facility] PHOSPHORUS 2022-12-23 02:50:00 Sandip Link [facility] LACTIC ACID, ARTERIAL 2022-12-23 02:50:00 Rom Ortega [facility] APTT 2022-12-23 02:50:[address] [facility] HEPATIC FUNCTION PANEL 2022-12-23 02:50:00 Rom Ortega [facility] CBC W/PLT COUNT & AUTO 2022-12-23 02:50:00 YuliyaNikaAlthea [facility] (CELLAVISION MANUAL DIFF) 2022-12-23 02:50:00 Althea Zuniga [facility] BASIC METABOLIC PANEL 2022-12-22 20:08:00 [facility] MAGNESIUM 2022-12-22 20:08:00 Elio [facility] POCT-GLUCOSE METER 2022-12-22 16:32:00 Sengabe [facility] PACEMAKER CHECK 2022-12-22 14:20:16 Nika Zunigaghan [facility] BASIC METABOLIC PANEL 2022-12-22 12:19:00 [facility] MAGNESIUM 2022-12-22 12:19:00 Elio [facility] POCT-GLUCOSE METER 2022-12-22 11:23:00 Sengabe [facility] POCT-GLUCOSE METER 2022-12-22 07:58:00 Sengabe [facility] APTT 2022-12-22 05:14:[address] [facility] BASIC METABOLIC PANEL 2022-12-22 05:13:00 [facility] MAGNESIUM 2022-12-22 05:13:00 Elio, [facility] CBC W/PLT COUNT & AUTO 2022-12-22 05:13:00 FaribaSandip love [facility] DIFFERENTIAL [facility] OXYGEN SATURATION, 2022-12-22 05:13:00 Jordan Rom [facility] MEASURED [facility] PHOSPHORUS 2022-12-22 05:13:00 Sandip Link [facility] CBC W/PLT COUNT & AUTO 2022-12-22 05:13:00 Althea Zuniga [facility] (CELLAVISION MANUAL DIFF) 2022-12-22 05:13:00 Althea Zuniga [facility] XR CHEST 1 VIEW PORTABLE / 2022-12-22 05:01:00 Althea Zuniga [facility] BEDSIDE [facility] APTT 2022-12-22 00:16:[address] [facility] BASIC METABOLIC PANEL 2022-12-21 21:22:00 [facility] MAGNESIUM 2022-12-21 21:22:00 Elio [facility] CAROTID DOPPLER BILATERAL 2022-12-21 19:26:00 Daphne Guillaume [facility] APTT 2022-12-21 17:37:[address] [facility] POCT-GLUCOSE METER 2022-12-21 16:41:00 [facility] TUNNELED CATHETER 2022-12-21 15:45:00 Tamiko Carreon [facility] POCT-GLUCOSE METER 2022-12-21 12:50:00 [facility] BASIC METABOLIC PANEL 2022-12-21 12:33:00 Eva Ballard [facility] MAGNESIUM 2022-12-21 12:33:00 [facility] BRAIN WITHOUT IV 2022-12-21 10:47:00 Daphne Guillaume [facility] CT ABDOMEN WITHOUT IV 2022-12-21 10:47:00 Daphne Guillaume [facility] CT CHEST WITHOUT IV 2022-12-21 10:47:00 Daphne Guillaume [facility] APTT 2022-12-21 09:40:00 Devyn Kaufman [facility] POCT-GLUCOSE METER 2022-12-21 07:37:00 Dipika oBurgeois [facility] XR CHEST 1 VIEW PORTABLE / 2022-12-21 03:49:00 Althea Zuniga [facility] BEDSIDE [facility] BASIC METABOLIC PANEL 2022-12-21 02:44:00 [facility] MAGNESIUM 2022-12-21 02:44:00 [facility] CBC W/PLT COUNT & AUTO 2022-12-21 02:44:00 Sandip Link [facility] DIFFERENTIAL [facility] OXYGEN SATURATION, 2022-12-21 02:44:00 Rom Ortega [facility] MEASURED [facility] APTT 2022-12-21 02:44:00 Devyn Kaufman [facility] PHOSPHORUS 2022-12-21 02:44:00 Diamond Mckeon [facility] CBC W/PLT COUNT & AUTO 2022-12-21 02:44:00 Althea Zuniga [facility] DIFFERENTIAL [facility] CALCIUM, IONIZED 2022-12-20 19:47:00 Celli [facility] OXYGEN SATURATION, 2022-12-20 19:47:00 Darrick [facility] BASIC METABOLIC PANEL 2022-12-20 19:41:00 [facility] MAGNESIUM 2022-12-20 19:41:00 Elio, [facility] APTT 2022-12-20 19:41:[address] [facility] POCT-GLUCOSE METER 2022-12-20 17:58:00 Dipika Bourgeois [facility] SPIROMETRY 2022-12-20 16:16:00 Daphne Guillaume [facility] ARTERIAL DOPPLER LEGS 2022-12-20 14:45:00 Terence Hollingsworth [facility] Macario [facility] POCT-GLUCOSE METER 2022-12-20 11:46:00 Dipika Bourgeois [facility] OXYGEN SATURATION, 2022-12-20 11:31:00 Rom Ortega [facility] BASIC METABOLIC PANEL 2022-12-20 11:31:00 Daphne Guillaume [facility] CBC W/PLT COUNT & AUTO 2022-12-20 11:31:00 Daphne Guillaume [facility] PROTHROMBIN TIME/INR 2022-12-20 11:31:[address]illa[address] [facility] APTT 2022-12-20 11:31:00 Daphne Guillaume [facility] FIBRINOGEN 2022-12-20 11:31:00 Daphne Guillaume Riley [facility] PLATELET AGGREGATION: 2022-12-20 11:31:00 Daphne Guillaume [facility] FUNCTION SCREEN Center MAGNESIUM 2022-12-20 11:31:00 Daphne Guillaume [facility] PREALBUMIN 2022-12-20 11:31:00 Juan Antonio [facility] VITAMIN D, 25-HYDROXY 2022-12-20 11:31:00 Daphne Guillaume [facility] CREATINE KINASE (CK) 2022-12-20 11:31:00 Rom Ortega [facility] CBC W/PLT COUNT & AUTO 2022-12-20 11:31:00 Daphne Guillaume [facility] POCT-GLUCOSE METER 2022-12-20 07:30:00 Dipika Bourgeois [facility] BASIC METABOLIC PANEL 2022-12-20 04:29:00 ElioEva [facility] MAGNESIUM 2022-12-20 04:29:00 Elio [facility] LACTIC ACID, VENOUS 2022-12-20 04:29:00 [facility] AUTO 2022-12-20 04:29:[address] [facility] APTT 2022-12-20 04:29:00 Devyn Kaufman [facility] HEPATIC FUNCTION PANEL 2022-12-20 04:29:00 Obgomezn [facility] LACTATE DEHYDROGENASE 2022-12-20 04:29:[address] [facility] LIPASE 2022-12-20 04:29:00 [place] [facility] PHOSPHORUS 2022-12-20 04:29:00 [facility] CHOLESTEROL, TOTAL 2022-12-20 04:29:00 [facility] CBC W/PLT COUNT & AUTO 2022-12-20 04:29:00 Althea Zuniga [facility] DIFFERENTIAL [facility] XR CHEST 1 VIEW PORTABLE / 2022-12-20 03:20:00 Althea Zuniga [facility] BEDSIDE [facility] BASIC METABOLIC PANEL 2022-12-19 19:41:00 [facility] MAGNESIUM 2022-12-19 19:41:00 [facility] APTT 2022-12-19 16:52:00 Devyn Kaufman [facility] POCT-GLUCOSE METER 2022-12-19 16:42:00 Dipika Bourgeois [facility] ICD CHECK 2022-12-19 15:18:02 Tamiko Carreon [facility] BASIC METABOLIC PANEL 2022-12-19 11:16:00 [facility] MAGNESIUM 2022-12-19 11:16:00 [facility] APTT 2022-12-19 11:16:00 Devyn Kaufman [facility] POCT-GLUCOSE METER 2022-12-19 11:14:00 Dipika Bourgeois [facility] POCT-GLUCOSE METER 2022-12-19 08:02:00 [facility] 2022-12-19 04:21:00 Elio, [facility] MAGNESIUM 2022-12-19 04:21:00 Elio, [facility] LACTIC ACID, VENOUS 2022-12-19 04:21:00 Elio, [facility] HEPATIC FUNCTION PANEL 2022-12-19 04:21:00 Rom Ortega [facility] CBC W/PLT COUNT & AUTO 2022-12-19 04:21:[address] [facility] TSH/FREE T4 IF INDICATED 2022-12-19 04:21:00 Cristo, [facility] APTT 2022-12-19 04:21:00 Devyn Kaufman [facility] T4, FREE 2022-12-19 04:21:00 Cristo, [facility] CBC W/PLT COUNT & AUTO 2022-12-19 04:21:00 Althea Zuniga [facility] XR CHEST 1 VIEW PORTABLE / 2022-12-19 02:24:00 Althea Zuniga [facility] POCT-GLUCOSE METER 2022-12-18 20:40:00 Urban Bourgeoisurad [facility] BASIC METABOLIC PANEL 2022-12-18 20:37:00 [facility] MAGNESIUM 2022-12-18 20:37:00 Elio, [facility] CALCIUM, IONIZED 2022-12-18 17:46:00 [facility] POCT-GLUCOSE METER 2022-12-18 16:24:00 Christelle [facility] XR ABDOMEN/KUB 1 VIEW 2022-12-18 14:32:00 Maeve Silvestre [facility] BASIC METABOLIC PANEL 2022-12-18 11:21:00 Elio, [facility] MAGNESIUM 2022-12-18 11:21:00 Elio, [facility] POCT-GLUCOSE METER 2022-12-18 11:11:00 Dipika Bourgeois [facility] POCT-GLUCOSE METER 2022-12-18 07:49:00 [facility] POCT-GLUCOSE METER 2022-12-18 03:43:00 [facility] POCT-GLUCOSE METER 2022-12-18 03:18:00 [facility] APTT 2022-12-18 03:17:00 Devyn Kaufman [facility] BASIC METABOLIC PANEL 2022-12-18 03:14:00 Elio, [facility] MAGNESIUM 2022-12-18 03:14:00 Elio, [facility] LACTIC ACID, VENOUS 2022-12-18 03:14:00 Elio, [facility] OXYGEN SATURATION, 2022-12-18 03:14:00 Elio, [facility] XR CHEST 1 VIEW PORTABLE / 2022-12-18 01:31:00 Althea Zuniga [facility] BASIC METABOLIC PANEL 2022-12-17 22:21:00 [facility] MAGNESIUM 2022-12-17 22:21:00 [facility] POCT-GLUCOSE METER 2022-12-17 22:00:00 ObertoDaphne valdez Riley [facility] POCT-GLUCOSE METER 2022-12-17 16:06:00 Obertojosé miguel [facility] BASIC METABOLIC PANEL 2022-12-17 12:31:00 [facility] MAGNESIUM 2022-12-17 12:31:00 [facility] POCT-GLUCOSE METER 2022-12-17 12:00:00 Obotilia [facility] POCT-GLUCOSE METER 2022-12-17 11:32:00 Obotilia [facility] POCT-GLUCOSE METER 2022-12-17 07:52:00 Obotilia [facility] HEPATIC FUNCTION PANEL 2022-12-17 04:31:00 Devyn Kaufman [facility] CBC W/PLT COUNT & AUTO 2022-12-17 04:31:00 Devyn Kaufman [facility] BASIC METABOLIC PANEL 2022-12-17 04:31:00 [facility] MAGNESIUM 2022-12-17 04:31:00 [facility] LACTIC ACID, VENOUS 2022-12-17 04:31:00 [facility] OXYGEN SATURATION, 2022-12-17 04:31:00 Elio [facility] URIC ACID 2022-12-17 04:31:00 [facility] PH, VENOUS 2022-12-17 04:31:00 [facility] APTT 2022-12-17 04:31:00 Devyn Kaufman [facility] CBC W/PLT COUNT & AUTO 2022-12-17 04:31:00 Devyn Kaufman [facility] XR CHEST 1 VIEW PORTABLE / 2022-12-17 02:04:00 Althea Zuniga [facility] BEDSIDE [facility] BASIC METABOLIC PANEL 2022-12-16 20:06:00 Elio, [facility] MAGNESIUM 2022-12-16 20:06:00 Elio, [facility] POCT-GLUCOSE METER 2022-12-16 20:06:00 Juan Antonio [facility] POCT-GLUCOSE METER 2022-12-16 16:37:00 Juan Antonio [facility] BASIC METABOLIC PANEL 2022-12-16 12:04:00 [facility] MAGNESIUM 2022-12-16 12:04:00 [facility] CREATINE KINASE (CK) 2022-12-16 12:04:00 Natalie Galozan [facility] POCT-GLUCOSE METER 2022-12-16 11:56:00 Juan Antonio [facility] XR CHEST 1 VIEW PORTABLE / 2022-12-16 11:05:00 Althea Zuniga [facility] BEDSIDE [facility] 2D ECHO W/ DOPPLER 2022-12-16 10:03:29 [facility] (CW[facility]PW[facility]COLOR[facility] [place] POCT-GLUCOSE METER 2022-12-16 08:10:00 Juan Antonio [facility] HEPATIC FUNCTION PANEL 2022-12-16 01:10:00 Devyn Kaufman [facility] CBC W/PLT COUNT & AUTO 2022-12-16 01:10:00 Devyn [facility]man [facility] BASIC METABOLIC PANEL 2022-12-16 01:10:00 [facility] MAGNESIUM 2022-12-16 01:10:00 [facility] LACTIC ACID, VENOUS 2022-12-16 01:10:00 Elio [facility] OXYGEN SATURATION, 2022-12-16 01:10:00 Elio [facility] APTT 2022-12-16 01:10:[address] [facility] CBC W/PLT COUNT & AUTO 2022-12-16 01:10:00 Devyn [facility]man [facility] POCT-GLUCOSE METER 2022-12-15 20:25:00 Juan Antonio [facility] BASIC METABOLIC PANEL 2022-12-15 20:24:00 Elio, [facility] MAGNESIUM 2022-12-15 20:24:00 Elio, [facility] VENOUS DOPPLER LEGS 2022-12-15 20:13:00 Althea Zuniga [facility] APTT 2022-12-15 18:13:00 Devyn Kaufman [facility] POCT-GLUCOSE METER 2022-12-15 16:38:00 Daphne Guillaume [facility] ARTERIAL DOPPLER LEGS 2022-12-15 16:24:00 Daniele Live [facility] ECG 12-LEAD 2022-12-15 13:34:47 MerchantAngel [facility] ECG 12-LEAD 2022-12-15 13:34:47 Unknown, Hl7 Doctor [facility] PACEMAKER CHECK 2022-12-15 13:00:[address] [facility] BLOOD CULTURE 2022-12-15 12:36:00 Althea Zuniga [facility] CBC (HEMOGRAM ONLY) 2022-12-15 11:33:00 Elio [facility] BASIC METABOLIC PANEL 2022-12-15 11:33:00 [facility] MAGNESIUM 2022-12-15 11:33:00 [facility] POCT-GLUCOSE METER 2022-12-15 11:33:00 Daphne Guillaume [facility] APTT 2022-12-15 09:59:00 Devyn Kaufman [facility] URINALYSIS W/ REFLEX URINE 2022-12-15 09:55:00 Althea Zuniga [facility] POCT-GLUCOSE METER 2022-12-15 08:00:00 Daphne Guillaume [facility] OXYGEN SATURATION, 2022-12-15 05:08:00 Devyn Kaufman [facility] LACTIC ACID, VENOUS 2022-12-15 05:08:00 Devyn Kaufman [facility] BASIC METABOLIC PANEL 2022-12-15 05:08:00 Devyn Kaufman [facility] HEPATIC FUNCTION PANEL 2022-12-15 05:08:00 Devyn Kaufman [facility] CBC W/PLT COUNT & AUTO 2022-12-15 05:08:00 Devyn Kaufman [facility] CREATINE KINASE (CK) 2022-12-15 05:08:00 [place] [facility] PROCALCITONIN 2022-12-15 05:08:00 Yuridia [facility] CBC W/PLT COUNT & AUTO 2022-12-15 05:08:00 Devyn Kaufman [facility] APTT 2022-12-15 02:44:[address] [facility] DIGOXIN LEVEL 2022-12-14 22:15:[address] [facility] OXYGEN SATURATION, 2022-12-14 20:12:00 Devyn Kaufman [facility] BLOOD CULTURE 2022-12-14 20:10:[address] [facility] COMPREHENSIVE METABOLIC 2022-12-14 20:00:[address] [facility] MAGNESIUM 2022-12-14 20:00:[address] [facility] LACTIC ACID, VENOUS 2022-12-14 20:00:00 Devyn Kaufman [facility] PHOSPHORUS 2022-12-14 20:00:[address] [facility] CBC W/PLT COUNT & AUTO 2022-12-14 20:00:00 Devyn [facility] PROTHROMBIN TIME/INR 2022-12-14 20:00:00 Devyn Kaufman [facility] APTT 2022-12-14 20:00:[address] [facility] CBC W/PLT COUNT & AUTO 2022-12-14 20:00:00 Devyn Kaufman [facility] BLOOD CULTURE 2022-12-14 20:00:00 Devyn Kaufman [facility] XR CHEST 1 VIEW PORTABLE / 2022-12-14 19:18:00 Devyn Kaufman [facility] CARDIAC CATH REPORT - SCAN 2022-12-14 00:00:00 Wilmar Pisano [facility] [place] BASIC METABOLIC PANEL 2022-12-11 12:21:00 Georgina Dominguez [facility] POC GLUCOSE 2022-12-01 00:54:00 Lucero [facility] POC GLUCOSE 2022-11-30 23:09:00 Lucero Mckinney [facility] IR TUNNELED CENTRAL LINE 2022-11-30 21:37:[address] [facility] PLACEMENT POC GLUCOSE 2022-11-30 20:19:00 Lucero Mckinney [facility] POC GLUCOSE 2022-11-30 16:44:00 Lucero Mckinney [facility] POC GLUCOSE 2022-11-30 12:32:00 Lucero Mckinney spital MAGNESIUM LEVEL 2022-11-30 11:11:00 [facility] CREATINE KINASE, TOTAL 2022-11-30 11:11:00 [facility] (CPK) CBC WITH PLATELET AND 2022-11-30 11:11:00 [facility] DIFFERENTIAL COMPREHENSIVE METABOLIC 2022-11-30 11:11:00 [facility] PANEL PROTHROMBIN TIME WITH INR 2022-11-30 11:11:00 Lucero Mckinney [facility] PARTIAL THROMBOPLASTIN 2022-11-30 11:11:00 Lucero Mckinney [facility] TIME (PTT) ESTIMATED GFR 2022-11-30 11:11:00 [facility] POC GLUCOSE 2022-11-30 02:42:00 Lucero Mckinney [facility] POC GLUCOSE 2022-11-29 22:53:00 Lucero Mckinney [facility] POC GLUCOSE 2022-11-29 17:09:00 Lucero Mckinney [facility] POC GLUCOSE 2022-11-29 13:11:00 Lucero Mckinney spital CBC WITH PLATELET AND 2022-11-29 10:35:00 [facility]FFER[facility] Bhatia COMPREHENSIVE METABOLIC 2022-11-29 10:35:00 Reed [facility] PANEL ESTIMATED GFR 2022-11-29 10:35:00 Lucero Mckinney spital POC GLUCOSE 2022-11-29 02:27:00 Lucero Mckinney Ho [facility]ital POC GLUCOSE 2022-11-28 23:27:00 Lucero Mckinney [facility] POC GLUCOSE 2022-11-28 18:54:00 Lucero Mckinney spital SIX MINUTE WALK W/ PULSE 2022-11-28 17:18[facility] SPIROMET[facility], DIFFUSION, 2022-11-28 17:07:18 [facility] LUNG VOLUMES POC GLUCOSE 2022-11-28 12:48:00 Lucero Mckinney spital BASIC METABOLIC PANEL 2022-11-28 09:23:00 [facility] CBC WITH PLATELET AND 2022-11-28 09:23:00 [facility] DIFFERENTIAL Bhatia ESTIMATED GFR 2022-11-28 09:23:00 [facility] POC GLUCOSE 2022-11-28 02:46:00 Lucero Mckinney Ho spital POC GLUCOSE 2022-11-27 22:44:00 Lucero Mckinney spital VANCOMYCIN LEVEL, TROUGH 2022-11-27 21:14:00 Reed [facility] PARTIAL THROMBOPLASTIN 2022-11-27 14:17:00 Reed [facility] TIME (PTT) POC GLUCOSE 2022-11-27 13:16:00 Lucero Mckinney Ho [facility]ital BASIC METABOLIC PANEL 2022-11-27 05:17:00 [facility] B[facility] ESTIMATED GFR 2022-11-27 05:17:00 [facility] Bhatia CBC WITH PLATELET AND 2022-11-27 05:16:00 [facility] DIFFERENTIAL Bhatia PARTIAL THROMBOPLASTIN 2022-11-27 05:16:00 Pillo [facility]inneychita [facility] TIME (PTT) PARTIAL THROMBOPLASTIN 2022-11-27 01:41:00 Reed [facility] TIME (PTT) POC GLUCOSE 2022-11-27 01:41:00 Lucero Mckinney [facility] POC GLUCOSE 2022-11-26 22:51:00 Lucero Mckinney spital PARTIAL THROMBOPLASTIN 2022-11-26 18:56:00 MeloGeorgina [facility] TIME (PTT) POC GLUCOSE 2022-11-26 17:50:00 Lucero Mckinney Ho [facility]ital POC GLUCOSE 2022-11-26 12:52:00 Lucero Mckinney spital BASIC METABOLIC PANEL 2022-11-26 10:06:00 [facility] AND 2022-11-26 10:06:00 [facility] DIFFERENTIAL Bhatia HEPATIC FUNCTION PANEL 2022-11-26 10:06:00 [facility] Bhatia MAGNESIUM LEVEL 2022-11-26 10:06:00 [facility] Bhatia ESTIMATED GFR 2022-11-26 10:06:00 [facility] B[facility]ia PARTIAL THROMBOPLASTIN 2022-11-26 10:06:00 Pillo Mckinneychita [facility] TIME (PTT) POC GLUCOSE 2022-11-26 09:57:00 Lucero Mckinney spital POC GLUCOSE 2022-11-26 06:00:00 Lucero Mckinney spital POC GLUCOSE 2022-11-26 03:24:00 Lucero Mckinney [facility] PARTIAL THROMBOPLASTIN 2022-11-26 03:07:00 Pillo [facility]neychita [facility] TIME (PTT) POC GLUCOSE 2022-11-26 00:14:00 Mckinney, Lucero [facility] POC GLUCOSE 2022-11-25 18:28:00 Mckinney, Lucero [facility] POC GLUCOSE 2022-11-25 14:29:00 Mckinney, Lucero [facility] POC GLUCOSE 2022-11-25 11:11:00 MckinneyVelmata [facility] BASIC METABOLIC PANEL 2022-11-25 11:08:00 [facility] CBC WITH PLATELET AND 2022-11-25 11:08:00 [facility] DIFFERENTIAL Bhatia HEPATIC FUNCTION PANEL 2022-11-25 11:08:00 [facility] Bhatia MAGNESIUM LEVEL 2022-11-25 11:08:00 [facility] Bhatia ESTIMATED GFR 2022-11-25 11:08:00 [facility] Bhatia POC GLUCOSE 2022-11-25 03:19:00 MckinneyVelma skinnerta [facility] POC GLUCOSE 2022-11-25 00:19:00 Mckinney, Lucero [facility] POC GLUCOSE 2022-11-24 18:31:00 MckinneyVelma skinnerta [facility] ECHOCARDIOGRAM 2022-11-24 17:14:22 [facility] TRANSESOPHAGEAL W DOPPLER Bhatia COLORFLOW XR CHEST 1 VW PORTABLE 2022-11-24 15:38:21 Janay Platt [facility] POC GLUCOSE 2022-11-24 13:54:00 Lucero Mckinney [facility] BASIC METABOLIC PANEL 2022-11-24 11:13:00 [facility] CBC WITH PLATELET AND 2022-11-24 11:13:00 [facility] DIFFERENTIAL Bhatia HEPATIC FUNCTION PANEL 2022-11-24 11:13:00 [facility] Bhatia MAGNESIUM LEVEL 2022-11-24 11:13:00 [facility] B[facility] ESTIMATED GFR 2022-11-24 11:13:00 Shay Bronson [facility] Bhatia POC GLUCOSE 2022-11-24 02:58:00 Lucero Mckinney spital XR CHEST 1 VW PORTABLE 2022-11-23 21:48:31 [facility] 2022-11-23 21:17:00 Lucero Mckinney Ho spital ECG PRE/POST OP 2022-11-23 21:03:01 Chito, [facility] [employer] [facility] sp[facility] EP INSERTION ELECTRODE 2022-11-23 20:41:54 [facility] LEFT VENTRICULAR PACING TYPE AND SCREEN 2022-11-23 14:58:00 Chito [facility] Sayra Stern spital POC GLUCOSE 2022-11-23 13:44:00 Lucero Mckinney spital XR CHEST 1 VW PORTABLE 2022-11-23 13:30:00 Lc [facility] POC GLUCOSE 2022-11-23 12:46:00 Lucero Mckinney spital VENOUS BLOOD GAS 2022-11-23 12:20:00 [facility] LACTIC ACID LEVEL 2022-11-23 12:17:00 [facility] PHOSPHORUS LEVEL 2022-11-23 12:17:00 [facility] ospital BASIC METABOLIC PANEL 2022-11-23 12:17:00 [facility] 2022-11-23 12:17:00 [facility] 2022-11-23 12:17:00 Shay [facility] CBC WITH PLATELET AND 2022-11-23 12:17:00 Shay [facility] DIFFERENTIAL Bhatia PARTIAL THROMBOPLASTIN 2022-11-23 12:17:00 david [facility] TIME (PTT) ESTIMATED GFR 2022-11-23 12:17:00 Shay [facility] BLOOD CULTURE, AEROBIC & 2022-11-23 11:19:[address] [facility] ANAEROBIC BLOOD CULTURE, AEROBIC & 2022-11-23 11:18:00 [facility] ANA[facility]OBIC PARTIAL THROMBOPLASTIN 2022-11-23 03:47:00 Reed [facility] TIME (PTT) POC GLUCOSE 2022-11-23 03:31:00 Lucero Mckinney spital POC GLUCOSE 2022-11-23 00:03:00 Lucero Mckinney spital POC GLUCOSE 2022-11-22 18:28:00 [facility] PARTIAL THROMBOPLASTIN 2022-11-22 17:40:00 [facility] TIME (PTT) POTASSIUM LEVEL 2022-11-22 17:40:00 [facility] US DUPLEX ARTERIAL LOWER 2022-11-22 17:00:00 [facility] EXTREMITY RIGHT [place] XR CHEST 1 VW PORTABLE 2022-11-22 14:45:00 [facility] POC GLUCOSE 2022-11-22 14:31:00 Lucero Mckinney spital POC GLUCOSE 2022-11-22 12:27:00 Lucero Mckinney spital DIGOXIN LEVEL 2022-11-22 09:30:00 [facility] spital HEPATIC FUNCTION PANEL 2022-11-22 09:30:00 [facility] BASIC METABOLIC PANEL 2022-11-22 09:30:00 [facility] LACT[facility] ACID LEVEL 2022-11-22 09:30:00 [facility] MAGNESIUM LEVEL 2022-11-22 09:30:00 [facility] PHOSPHORUS LEVEL 2022-11-22 09:30:00 [facility] ospital VENOUS BLOOD GAS 2022-11-22 09:30:00 [facility]ital PARTIAL THROMBOPLASTIN 2022-11-22 09:30:00 [facility] TIME (PTT) ESTIMATED GFR 2022-11-22 09:30:00 Toño Farmer ospital POC GLUCOSE 2022-11-22 02:27:00 Lucero Mckinney spital TTE LIMITED W CONTRAST, W 2022-11-22 00:50:00 [facility][id number][facility] POC GLUCOSE 2022-11-21 22:42:00 Lucero Mckinney Ho spital PARTIAL THROMBOPLASTIN 2022-11-21 22:20:00 Tal [facility] TIME (PTT) O2 SATURATION, VENOUS 2022-11-21 19:09:00 [facility] LACTIC ACID LEVEL 2022-11-21 19:09:00 [facility] POC GLUCOSE 2022-11-21 17:45:00 Lucero Mckinney spital POC GLUCOSE 2022-11-21 14:03:00 Lucero Mckinney spital RESPIRATORY PATHOGEN PANEL 2022-11-21 11:08:00 [facility] WITH COVID-19 RT-PCR XR CHEST 1 VW PORTABLE 2022-11-21 11:01:50 [facility] VENOUS BLOOD GAS 2022-11-21 08:24:00 Msays, [facility] CBC HEMOGRAM 2022-11-21 08:23:00 Christi Fernandez [facility] HEPATIC FUNCTION PANEL 2022-11-21 08:23:00 [facility] BASIC METABOLIC PANEL 2022-11-21 08:23:00 Msays, [facility] LACTIC ACID LEVEL 2022-11-21 08:23:00 Msays, [facility] MAGNESIUM LEVEL 2022-11-21 08:23:00 Msays, [facility] spital PHOSPHORUS LEVEL 2022-11-21 08:23:00 Msays [facility] ospital VANCOMYCIN LEVEL, RANDOM 2022-11-21 08:23:00 [facility] PARTIAL THROMBOPLASTIN 2022-11-21 08:23:00 Voore, [facility] TIME (PTT) HIV 1/2 ANTIGEN/ANTIBODY, 2022-11-21 08:23:00 [facility] FOURTH GENERATION, WITH REFLEXES ACUTE VIRAL HEPATITIS 2022-11-21 08:23:00 [facility] PANEL (HAV, HBV, HCV) ESTIMATED GFR 2022-11-21 08:23:00 Toño Farmer H ospital POC GLUCOSE 2022-11-21 03:20:00 Lucero Mckinney Ho spital US ANKLE BRACHIAL INDEX 2022-11-21 02:17:00 Aury Shay [facility] PARTIAL THROMBOPLASTIN 2022-11-20 23:06:00 [facility] TIME (PTT) POC GLUCOSE 2022-11-20 22:03:00 Lucero Mckinney spital POC GLUCOSE 2022-11-20 17:42:00 Lucero Mckinney spital PARTIAL THROMBOPLASTIN 2022-11-20 15:34:00 [facility] TIME (PTT[facility] POC GLUCOSE 2022-11-20 14:32:00 Lucero Mckinney spital POC GLUCOSE 2022-11-20 10:54:00 Lucero Mckinney spital XR CHEST 1 VW PORTABLE 2022-11-20 10:05:41 [facility] TH[facility] 2022-11-20 08:51:00 [facility] TIME (PTT) POC GLUCOSE 2022-11-20 07:32:00 Lucero Mckinney spital O2 SATURATION, VENOUS 2022-11-20 07:30:00 [facility] CBC HEMOGRAM 2022-11-20 07:30:00 Christi Fernandez [facility] VANCOMYCIN LEVEL, RANDOM 2022-11-20 07:30:00 [facility] PARTIAL THROMBOPLASTIN 2022-11-20 07:29:00 Reed [facility] TIME (PTT) IONIZED CALCIUM 2022-11-20 07:29:00 Lucero Mckinney spital BASIC METABOLIC PANEL 2022-11-20 07:29:00 [facility] DIGOXIN LEVEL 2022-11-20 07:29:00 Lucero Mckinney spital LACTIC ACID LEVEL 2022-11-20 07:29:00 [facility]NESI[facility] LEVEL 2022-11-20 07:29:00 Lucero Mckinney spital PHOSPHORUS LEVEL 2022-11-20 07:29:00 Pillo Mckinneychita [facility] ospital ESTIMATED GFR 2022-11-20 07:29:00 Lucero Mckinney spital ESTIMATED GFR 2022-11-20 07:10:00 Lc [facility] Luke POC GLUCOSE 2022-11-20 02:46:00 Pillo Mckinneychikarolina Alves spital BLOOD CULTURE, AEROBIC & 2022-11-20 00:35:00 [facility] ANAEROBIC BLOOD CULTURE, AEROBIC & 2022-11-19 23:29:00 [facility] ANAEROBIC POC GLUCOSE 2022-11-19 22:38:00 Lucero Mckinney spital PARTIAL THROMBOPLASTIN 2022-11-19 22:33:00 [facility] TIME (PTT) O2 SATURATION, VENOUS 2022-11-19 18:43:00 Kendy Durham [facility] Angely POTASSIUM LEVEL 2022-11-19 18:43:00 [facility] ospital PHOSPHORUS LEVEL 2022-11-19 18:43:00 [facility] IONIZED CALCIUM 2022-11-19 18:43:00 [facility] ospital MAGNESIUM LEVEL 2022-11-19 18:43:00 [facility] ospital LACTIC ACID LEVEL 2022-11-19 18:43:00 [facility] POC GLUCOSE 2022-11-19 17:18:00 Lucero Mckinney spital XR CHEST 1 VW PORTABLE 2022-11-19 16:19:43 Kendy Durham [facility] Angely PARTIAL THROMBOPLASTIN 2022-11-19 14:28:00 [facility] (PTT[facility] POC GLUCOSE 2022-11-19 13:47:00 Lucero Mckinney spital XR CHEST 1 VW PORTABLE 2022-11-19 11:35:37 [facility] POC GLUCOSE 2022-11-19 10:44:00 Lucero Mckinney spital CBC HEMOGRAM 2022-11-19 10:36:00 [facility] B NATRIURETIC PEPTIDE 2022-11-19 10:36:00 [facility] O2 SATURATION, VENOUS 2022-11-19 10:36:00 [facility] LACTIC ACID LEVEL 2022-11-19 10:36:00 [facility] BASIC METABOLIC PANEL 2022-11-19 10:36:00 [facility] Luke PHOSPHORUS LEVEL 2022-11-19 10:36:00 [facility] Luke MAGNESIUM LEVEL 2022-11-19 10:36:00 [facility] Luke ESTIMATED GFR 2022-11-19 10:36:00 [facility] Luke POC GLUCOSE 2022-11-19 06:28:00 Lucero Mckinney spital PARTIAL THROMBOPLASTIN 2022-11-19 06:24:00 [facility] TIME (PTT) LACTIC ACID LEVEL 2022-11-19 06:24:00 [facility] CREATINE KINASE, TOTAL 2022-11-19 06:24:00 [facility] ([facility] POC GLUCOSE 2022-11-19 02:41:00 Lucero Mckinney Ho spital PARTIAL THROMBOPLASTIN 2022-11-18 23:55:00 [facility] TIME (PTT) POC GLUCOSE 2022-11-18 23:03:00 Lucero Mckinney spital CREATININE CLEARANCE, 2022-11-18 19:10:00 Linda [facility] URINE, 24 HOUR PROTEIN, URINE, RANDOM 2022-11-18 19:10:00 Linda [facility] ESTIMATED GFR 2022-11-18 19:10:00 Ilsa Mckeon spital POTASSIUM LEVEL 2022-11-18 19:10:00 Ilsa Mckeonun [facility] MAGNESIUM LEVEL 2022-11-18 19:10:00 Linda [facility] [employer] [facility] IONIZED CALCIUM 2022-11-18 19:10:00 Ilsa Mckeon [facility] [employer] [facility] sp[facility] PHOSPHORUS LEVEL 2022-11-18 19:10:00 Ilsa Mckeon H ospital XR CHEST 1 VW PORTABLE 2022-11-18 18:29:35 Linda [facility] US DUPLEX ARTERIAL LOWER 2022-11-18 17:45:00 Toño Farmer [facility] EXTREMITY BILATERAL POC GLUCOSE 2022-11-18 17:17:00 Lucero Mckinney spital PARTIAL THROMBOPLASTIN 2022-11-18 16:18:00 [facility] TIME (PTT) POC GLUCOSE 2022-11-18 14:14:00 Lucero Mckinney spital POC GLUCOSE 2022-11-18 11:18:00 Lucero Mckinney spital XR CHEST 1 VW PORTABLE 2022-11-18 10:47:31 [facility] PARTIAL THROMB[facility]LASTIN 2022-11-18 08:54:00 Endy Gale [facility] TIME (PTT) POC GLUCOSE 2022-11-18 08:39:00 Lucero Mckinney spital O2 SATURATION, VENOUS 2022-11-18 07:37:00 [facility] LACTIC ACID LEVEL 2022-11-18 07:37:00 [facility] DIGOXIN LEVEL 2022-11-18 07:37:00 [facility] spital BASIC METABOLIC PANEL 2022-11-18 07:37:00 [facility] PHOSPHORUS LEVEL 2022-11-18 07:37:00 [facility] MAGNESIUM LEVEL 2022-11-18 07:37:00 [facility] PARTIAL THROMBOPLASTIN 2022-11-18 07:37:[address] [facility] TIME (PTT) IONIZED CALCIUM 2022-11-18 07:37:00 [facility] [facility] spital ESTIMATED GFR 2022-11-18 07:37:00 [facility] CBC WITH PLATELET AND 2022-11-18 07:37:00 [facility] DIFFERENTIAL POC GLUCOSE 2022-11-18 02:43:[address] [facility] spital BLOOD CULTURE, AEROBIC & 2022-11-18 00:06:00 [facility]OBIC PARTIAL THROMBOPLASTIN 2022-11-17 23:25:00 [facility] POC GLUCOSE 2022-11-17 22:45:00 Pillo Mckinneychikarolina CarpenterWe[facility] spital O2 SATURATION, VENOUS 2022-11-17 21:34:00 [facility] XR CHEST 1 VW PORTABLE 2022-11-17 20:45:00 [facility] BLOOD CULTURE, AEROBIC & 2022-11-17 20:23:00 [facility] ANAEROBIC PARTIAL THROMBOPLASTIN 2022-11-17 19:03:[address] [facility] TIME (PTT) CBC WITH PLATELET AND 2022-11-17 19:03:00 [facility] DIFFERENTIAL BASIC METABOLIC PANEL 2022-11-17 19:03:00 [facility] MAGNESIUM LEVEL 2022-11-17 19:03:00 [facility] o[facility]ital PHOSPHORUS LEVEL 2022-11-17 19:03:00 [facility] IONIZED CALCIUM 2022-11-17 19:03:00 [facility] [facility] ospital O2 SATURATION, VENOUS 2022-11-17 19:03:00 [facility] ESTIMATED GFR 2022-11-17 19:03:00 [facility] ospital LACTIC ACID LEVEL 2022-11-17 19:03:00 [facility] POC GLUCOSE 2022-11-17 17:53:00 Lucero Mckinney spital ECG 12-LEAD 2022-11-17 17:47:08 Lucero Mckinney spital CV INTRA AORTIC BALLOON 2022-11-17 17:02:[address] [facility] PUMP REMOVAL POC GLUCOSE 2022-11-17 13:45:00 Lucero Mckinney spital CBC WITH PLATELET AND 2022-11-17 12:50:00 [facility]FFERENTIAL COMPREHENSIVE METABOLIC 2022-11-17 12:50:[address] [facility] PANEL PROTHROMBIN TIME WITH INR 2022-11-17 12:50:00 Andrés Berman [facility] MAGNESIUM LEVEL 2022-11-17 12:50:00 Andrés Berman ospital PHOSPHORUS LEVEL 2022-11-17 12:50:00 [facility] Luke DIGOXIN LEVEL 2022-11-17 12:50:00 Ehsan Crump spital ESTIMATED GFR 2022-11-17 12:50:00 Andrés Berman ospital PARTIAL THROMBOPLASTIN 2022-11-17 12:50:00 Andrés Berman [facility] TIME (PTT) POC GLUCOSE 2022-11-17 12:09:00 Lucero Mckinney spital POC GLUCOSE 2022-11-17 07:06:00 Lucero Mckinney spital PARTIAL THROMBOPLASTIN 2022-11-17 03:18:00 [facility] TIME (PTT) POC GLUCOSE 2022-11-17 02:25:00 Lucero Mckinney spital POC GLUCOSE 2022-11-16 23:08:00 Pillo Mckinneyjovanna Alves Ho spital PV PHYSIOLOGIC ARTERIAL 2022-11-16 21:15:00 [facility] LOWER EXTREMITY COMPLETE XR PANOREX 2022-11-16 20:57:[address] HEAD WO CONTRAST 2022-11-16 20:46:36 [facility] CHEST WO CONTRAST 2022-11-16 20:46:18 [facility] ABDOMEN WO CONTRAST PELVIS WO CONTRAST TTE COMPLETE W AGITATED 2022-11-16 19:54:00 [facility] SALINE W CONT W DOP PV TRANSCRANIAL DOPPLER 2022-11-16 19:20:00 [facility] INTRACRANIAL ARTERIES COMPLETE US CAROTID DUPLEX 2022-11-16 16:00:00 [facility] BIL[facility]AL POC GLUCOSE 2022-11-16 14:10:00 Lucero Mckinney spital PARTIAL THROMBOPLASTIN 2022-11-16 13:58:00 MckinneyPillo skinnerLuceroMethodist [facility] Medical Center TIME (PTT) POC GLUCOSE 2022-11-16 11:52:00 Lucero Mckinney spital URINE CULTURE 2022-11-16 11:15:00 Ilsa Mckeon spital CBC WITH PLATELET AND 2022-11-16 11:15:00 [facility] DIFFERENTIAL COMPREHENSIVE METABOLIC 2022-11-16 11:15:00 Andrés Berman [facility] PANEL PROTHROMBIN TIME WITH INR 2022-11-16 11:15:00 [place] [facility] HospitalAndrés [facility] MAGNESIUM LEVEL 2022-11-16 11:15:00 Andrés Berman H ospital LDH 2022-11-16 11:15:00 Ilsa Mckeon Ho spital T4, FREE 2022-11-16 11:15:00 Ilsa Mckeon Ho spital T4 2022-11-16 11:15:00 Ilsa Mckeon Ho spital T3 2022-11-16 11:15:00 Ilsa Mckeon Ho spital THYROID STIMULATING 2022-11-16 11:15:00 Linda [facility] HORMONE CREATININE LEVEL, URINE, 2022-11-16 11:15:00 Ilsa Mckeon [facility] RANDOM PROSTATE SPECIFIC ANTIGEN 2022-11-16 11:15:00 Linda [facility] NICOTINE AND COTININE, 2022-11-16 11:15:00 Linda [facility] SERUM TOXOPLASMA IGM AB 2022-11-16 11:15:00 Linda [facility] DRUG MUÑIZ 9, SER/DIAZ, SCRN 2022-11-16 11:15:00 Linda [facility] W/RFLX TO CONF URIC ACID LEVEL 2022-11-16 11:15:00 Linda [facility] spital LIPID PANEL 2022-11-16 11:15:00 Linda [facility] spital TYPE AND SCREEN 2022-11-16 11:15:00 Linda [facility] spital URINALYSIS SCREEN AND 2022-11-16 11:15:00 Linda [facility] MICROSCOPY, WITH REFLEX TO CULTURE PHOSPHORUS LEVEL 2022-11-16 11:15:00 [facility] FERRITIN LEVEL 2022-11-16 11:15:00 [facility] TOTAL IRON BINDING 2022-11-16 11:15:00 [facility] CAPACITY Luke THYROID PEROXIDASE 2022-11-16 11:15:00 [facility] ANTIBODY THYROGLOBULIN ANTIBODY 2022-11-16 11:15:00 [facility] ESTIMATED GFR 2022-11-16 11:15:00 [facility] POC GLUCOSE 2022-11-16 10:25:00 [facility] POC GLUCOSE 2022-11-16 06:55:[address] [facility] spital PARTIAL THROMBOPLASTIN 2022-11-16 05:45:00 Andrés Berman [facility] TIME (PTT) FERRITIN LEVEL 2022-11-16 05:45:00 LindaIlsa Michelle [facility] spital POC GLUCOSE 2022-11-16 02:24:00 Lucero Mckinney Ho spital POC GLUCOSE 2022-11-15 23:50:00 Lucero Mckinney Ho spital US RENAL 2022-11-15 22:20:00 Linda Ilsa Carpenterist Ho spital ECG 12-LEAD 2022-11-15 18:55:57 Ilsa Mckeonist Ho spital POC GLUCOSE 2022-11-15 18:47:00 [facility] CHEST 2 VW 2022-11-15 14:59:49 Ehsan Crump spital POC GLUCOSE 2022-11-15 13:50:00 [facility] o[facility]ital CBC WITH PLATELET AND 2022-11-15 12:08:00 Andrés Berman [facility] DIFFERENTIAL COMPREHENSIVE METABOLIC 2022-11-15 12:08:[address] [facility] PANEL PROTHROMBIN TIME WITH INR 2022-11-15 12:08:00 Andrés Berman [facility] MAGNESIUM LEVEL 2022-11-15 12:08:00 [facility] o[facility]ital ESTIMATED GFR 2022-11-15 12:08:00 [facility] o[facility]ital ANTI XA APIXABAN 2022-11-15 12:08:00 Andrés Berman [facility] PARTIAL THROMBOPLASTIN 2022-11-15 12:08:00 Andrés Berman [facility] TIME (PTT) PARTIAL THROMBOPLASTIN 2022-11-15 02:41:00 Theron [facility] TIME (PTT) ANTI XA APIXABAN 2022-11-15 02:41:00 Ehsan Crump ospital PROTHROMBIN TIME WITH INR 2022-11-15 02:41:00 Ehsan Crump [facility] POC GLUCOSE 2022-11-15 00:45:00 [facility] COVID-19 QUALITATIVE 2022-11-14 23:45:00 Andrés Berman [facility] RT-PCR CBC WITH PLATELET AND 2022-11-14 23:45:00 Andrés Berman [facility] DIFFERENTIAL B NATRIURETIC PEPTIDE 2022-11-14 23:45:00 Andrés Berman [facility] CREATINE KINASE, TOTAL 2022-11-14 23:45:00 Andrés Berman [facility] ([facility]) COMPREHENSIVE METABOLIC 2022-11-14 23:45:[address] [facility] PANEL HEMOGLOBIN A1C 2022-11-14 23:45:00 [facility] o[facility]ital LACTIC ACID LEVEL 2022-11-14 23:45:00 Andrés Berman [facility] MAGNESIUM LEVEL 2022-11-14 23:45:00 Andrés Berman [facility] ospital PHOSPHORUS LEVEL 2022-11-14 23:45:00 Andrés Berman [facility] PREALBUMIN LEVEL 2022-11-14 23:45:00 Andrés Berman [facility] THYROID STIMULATING 2022-11-14 23:45:00 Andrés Berman [facility] HORMONE T4, FREE 2022-11-14 23:45:00 [facility] ESTIMATED GFR 2022-11-14 23:45:00 Andrés Berman [facility] ospital BASIC METABOLIC PANEL 2022-11-10 14:04:00 Georgina Dominguez [facility] POCT GLUCOSE (AUTOMATED) 2022-10-13 17:12:00 Terrell Lopez [facility] POCT GLUCOSE (AUTOMATED) 2022-10-13 13:39:00 Terrell Lopez [facility] MAGNESIUM 2022-10-13 10:36:00 Nguyen Siu [facility] COMP. METABOLIC PANEL 2022-10-13 10:36:00 Nguyen Siu [facility] [id number] N-TERMINAL PRO-BNP 2022-10-13 10:36:00 Nguyen Siu [facility] POCT GLUCOSE (AUTOMATED) 2022-10-13 04:20:00 [place], Terrell [facility] POCT GLUCOSE (AUTOMATED) 2022-10-12 22:37:00 Jessica Terrell [facility] POCT GLUCOSE (AUTOMATED) 2022-10-12 17:32:00 Terrell Lopez [facility] TROPONIN I 2022-10-12 16:05:[address] [facility] POCT GLUCOSE (AUTOMATED) 2022-10-12 13:38:00 Terrell Lopez [facility] AC VBG + LACTIC ACID 2022-10-12 12:25:00 Nguyen Siu [facility] UREA NITROGEN, URINE 2022-10-12 12:23:00 Nguyen Siu [facility] SODIUM, URINE RANDOM 2022-10-12 12:22:00 Sherron freddie [facility] PROTEIN CREAT RATIO URINE 2022-10-12 12:22:00 [facility]IG[facility] 2022-10-12 10:21:00 Nguyen Siu [facility] PHOSPHORUS 2022-10-12 10:20:00 [facility]ron [facility] CREATINE KINASE 2022-10-12 10:20:00 [facility] URIC ACID 2022-10-12 10:20:00 Sherron freddie [facility] MAGNESIUM 2022-10-12 10:20:00 Sherron freddie [facility] TROPONIN I 2022-10-12 10:20:00 [facility] COMP. METABOLIC PANEL 2022-10-12 10:20:00 Nguyen Sui [facility] ([id number]) [facility] CBC WITH DIFF 2022-10-12 10:20:00 Terrell Lopez [facility] PROTHROMBIN TIME / INR 2022-10-12 10:20:[address] [facility] N-TERMINAL PRO-BNP 2022-10-12 10:20:00 Nguyen Siu [facility] POCT GLUCOSE (AUTOMATED) 2022-10-12 08:24:00 [facility] 2022-10-12 04:29:[address] [facility] POCT GLUCOSE (AUTOMATED) 2022-10-12 02:19:00 [facility] 2022-10-11 23:46:[address] [facility] POCT GLUCOSE (AUTOMATED) 2022-10-11 23:13:00 Terrell Lopez [facility] URINALYSIS 2022-10-11 16:25:00 Salomon Meyer [facility] XR CHEST 1 VW 2022-10-11 16:02:25 Salomon Meyer [facility] AC PANEL 21 + LACTIC ACID 2022-10-11 15:26:00 Salomon [facility] (ID NOW RAPID 2022-10-11 15:15:00 Salomon Meyer [facility] TESTING) Medical [facility] LAB ONLY COVID 2022-10-11 15:15:00 Salomon Meyer [facility] MAGNESIUM 2022-10-11 15:14:00 Salomon Meyer [facility] TROPONIN I 2022-10-11 15:14:00 Salomon Meyer [facility] COMP. METABOLIC PANEL 2022-10-11 15:14:00 Salomon Meyer [facility] ([id number]) [facility] CBC WITH DIFF 2022-10-11 15:14:00 Salomon Meyer [facility] GLYCOSYLATED HEMOGLOBIN 2022-10-11 15:14:00 Terrell Lopez [facility] (A1C) [facility] N-TERMINAL PRO-BNP 2022-10-11 15:14:00 Salomon Meyer [facility] HB ECG ROUTINE & RHYTHM 2022-10-11 15:02:47 Salomon Meyer [facility] CONSENT/REFUSAL FOR 2022-10-11 14:46:34 Doctor Unassigned, [facility] DIAGNOSIS AND TREATMENT [place] BASIC METABOLIC PANEL 2022-10-10 20:09:00 Georgina Dominguez [facility] POC GLUCOSE 2022-10-02 23:22:00 Lucero Mckinney Ho spital POC GLUCOSE 2022-10-02 20:17:00 Lucero Mckinney Ho spital POC GLUCOSE 2022-10-02 18:57:00 Lucero Mckinney Ho spital POC GLUCOSE 2022-10-02 14:15:00 Lucero Mckinney Ho spital BASIC METABOLIC PANEL 2022-10-02 11:30:00 Theron [facility] MAGNESIUM LEVEL 2022-10-02 11:30:00 Ehsan Crump spital ESTIMATED GFR 2022-10-02 11:30:00 Lucero Mckinney Ho spital PHOSPHORUS LEVEL 2022-10-02 11:30:00 Lucero Mckinney H ospital CBC WITH PLATELET AND 2022-10-02 11:30:00 Pillo Mckinneychita [facility] DIFFERENTIAL POC GLUCOSE 2022-10-02 09:11:00 Lucero Mckinney Ho spital POC GLUCOSE 2022-10-02 07:20:00 Lucero Mckinney Ho spital POC GLUCOSE 2022-10-02 05:15:00 Lucero Mckinney Ho spital POC GLUCOSE 2022-10-02 03:28:00 Lucero Mckinney Ho spital POC GLUCOSE 2022-10-02 03:26:00 MckinneyLucero skinner Ho spital POC GLUCOSE 2022-10-02 00:45:00 Lucero Mckinney Ho spital POC GLUCOSE 2022-10-01 18:46:00 Lucero Mckinney Ho spital POC GLUCOSE 2022-10-01 14:00:00 Lucero Mckinney Ho spital BASIC METABOLIC PANEL 2022-10-01 11:21:00 Theron [facility] MAGNESIUM LEVEL 2022-10-01 11:21:00 Ehsan Crump Ho spital PHOSPHORUS LEVEL 2022-10-01 11:21:00 [facility] ESTIMATED GFR 2022-10-01 11:21:00 Lucero Mckinney Ho spital POC GLUCOSE 2022-10-01 01:47:00 Lucero Mckinney Ho spital POC GLUCOSE 2022-09-30 23:27:00 Lucero Mckinney [facility] spital POC GLUCOSE 2022-09-30 18:19:00 Lucero Mckinney [facility] spital POC GLUCOSE 2022-09-30 14:22:00 Lucero Mckinney Ho spital DIGOXIN LEVEL 2022-09-30 11:36:00 Lucero Mckinney Ho spital BASIC METABOLIC PANEL 2022-09-30 11:36:00 [facility]NESIUM LEVEL 2022-09-30 11:36:00 Ehsan Crump Ho spital CBC WITH PLATELET AND 2022-09-30 11:36:00 Lucero cMkinney [facility] DIFFERENTIAL ESTIMATED GFR 2022-09-30 11:36:00 Lucero Mckinney Ho spital POC GLUCOSE 2022-09-29 23:54:00 Lucero Mckinney Ho spital POC GLUCOSE 2022-09-29 17:38:00 Lucero Mckinney Ho spital POC GLUCOSE 2022-09-29 13:50:00 Lucero Mckinney spital BASIC METABOLIC PANEL 2022-09-29 10:35:00 [facility] MAGNESIUM LEVEL 2022-09-29 10:35:00 [facility] PHOSPHORUS LEVEL 2022-09-29 10:35:00 [facility] ESTIMATED GFR 2022-09-29 10:35:00 [facility] POC GLUCOSE 2022-09-29 02:28:00 Lucero Mckinney Ho spital POC GLUCOSE 2022-09-28 23:48:00 Lucero Mckinney Ho spital POC GLUCOSE 2022-09-28 20:51:00 MckinneyLucero [facility] spital POC GLUCOSE 2022-09-28 17:33:00 MckinneyLucero Ho spital CV RIGHT HEART CATH 2022-09-28 17:15:17 [facility] P[facility]SE 2022-09-28 13:58:00 MckinneyLucero Ho spital BASIC METABOLIC PANEL 2022-09-28 11:21:00 [facility] MAGNESIUM LEVEL 2022-09-28 11:21:00 [facility] PHOSPHORUS LEVEL 2022-09-28 11:21:00 [facility] DIGOXIN LEVEL 2022-09-28 11:21:00 MckinneyLucero Ho spital CBC HEMOGRAM 2022-09-28 11:21:00 MckinneyVelmata [facility] spital ESTIMATED GFR 2022-09-28 11:21:00 [facility] POC GLUCOSE 2022-09-28 02:59:00 MckinneyLucero [facility] spital POC GLUCOSE 2022-09-28 00:24:00 MckinneyLucero [facility] spital POC GLUCOSE 2022-09-27 18:02:00 MckinneyLucero Ho spital POC GLUCOSE 2022-09-27 14:00:00 MckinneyVelmata [facility] spital BASIC METABOLIC PANEL 2022-09-27 11:06:00 [facility] MAGNESIUM LEVEL 2022-09-27 11:06:00 [facility] PHOSPHORUS LEVEL 2022-09-27 11:06:00 [facility] ESTIMATED GFR 2022-09-27 11:06:00 [facility] POC GLUCOSE 2022-09-27 05:46:00 MckinneyLucero skinner [facility] spital POC GLUCOSE 2022-09-26 23:53:00 Lucero Mckinney [facility] spital POC GLUCOSE 2022-09-26 18:37:00 Velma Mckinneyta [facility] spital URINE CULTURE 2022-09-26 16:00:00 [facility] URINALYSIS SCREEN AND 2022-09-26 16:00:00 [facility] MICROSCOPY, WITH REFLEX TO Luke CULTURE POC GLUCOSE 2022-09-26 13:40:00 Lucero Mckinney spital BASIC METABOLIC PANEL 2022-09-26 11:09:00 [facility] MAGNESIUM LEVEL 2022-09-26 11:09:00 [facility] PHOSPHORUS LEVEL 2022-09-26 11:09:00 [facility] ESTIMATED GFR 2022-09-26 11:09:00 [facility] POC GLUCOSE 2022-09-26 09:02:00 MckinneyLucero skinner spital POC GLUCOSE 2022-09-26 05:41:00 Mckinney, Lucero [facility] spital POC GLUCOSE 2022-09-26 03:01:00 Velma Mckinneyta [facility] spital POC GLUCOSE 2022-09-26 01:18:00 MckinneyVelma skinnerta [facility] spital POC GLUCOSE 2022-09-25 18:31:00 MckinneyVelma skinnerta [facility] spital POC GLUCOSE 2022-09-25 14:19:00 MckinneyVelma skinnerta [facility] spital CBC WITH PLATELET AND 2022-09-25 10:46:00 MckinneyLucero skinner [facility] DIFFERENTIAL COMPREHENSIVE METABOLIC 2022-09-25 10:46:00 Lucero Mckinney [facility] PANEL MAGNESIUM LEVEL 2022-09-25 10:46:00 [facility] PHOSPHORUS LEVEL 2022-09-25 10:46:00 [facility] ESTIMATED GFR 2022-09-25 10:46:00 Lucero Mckinney spital B NATRIURETIC PEPTIDE 2022-09-25 10:46:00 [facility] POC GLUCOSE 2022-09-25 02:57:00 Lucero Mckinney Ho spital POC GLUCOSE 2022-09-25 00:37:00 Reed Lucero Alves Ho spital POC GLUCOSE 2022-09-24 19:55:00 Lucero Mckinney spital XR PICC CHEST PORTABLE 2022-09-24 17:27:[address] [facility] P[facility]ION [facility] 2022-09-24 [facility]22-09-24 13:57:00 Lucero Mckinney spital CBC WITH PLATELET AND 2022-09-24 09:42:00 [facility] DIFFERENTIAL COMPREHENSIVE METABOLIC 2022-09-24 09:42[facility]00 [facility] B NATRIURETIC PEPTIDE 2022-09-24 09:42:00 [facility] FERRITIN LEVEL 2022-09-24 09:42:00 [facility] TOTAL IRON BINDING 2022-09-24 09:42:00 [facility] CAPACITY [facility] MAGNESIUM LEVEL 2022-09-24 09:42:00 [facility] PHOSPHORUS LEVEL 2022-09-24 09:42:00 [facility] ESTIMATED GFR 2022-09-24 09:42:00 Lucero Mckinney Ho spital POC GLUCOSE 2022-09-24 03:25:00 Lucero Mckinney Ho spital POC GLUCOSE 2022-09-24 00:01:00 Lucero Mckinney spital POC GLUCOSE 2022-09-23 19:00:00 Lucero Mckinney spital B NATRIURETIC PEPTIDE 2022-09-23 18:55:00 [facility] POC [facility]UCOSE 2022-09-23 15:32:00 Pillo Mckinneyjovanna Carpenterist spital CBC WITH PLATELET AND 2022-09-23 12:02:00 [facility]inney [facility] DIFFERENTIAL COMPREHENSIVE METABOLIC 2022-09-23 12:02:00 [facility] PANEL ESTIMATED GFR 2022-09-23 12:02:00 Pillo Mckinneychita [facility] spital XR ABDOMEN 1 VW PORTABLE 2022-09-23 05:47:03 Reed [facility] ECG 12-LEAD 2022-09-23 01:47:08 Emily [place] [facility] POC GLUCOSE 2022-09-23 01:07:00 Reed Lucero [facility] spital XR CHEST 2 VW 2022-09-23 00:15:00 Emily Felicia [facility] COMPREHENSIVE METABOLIC 2022-09-22 23:28:00 Emily [facility] PANEL Kemb LACTIC ACID LEVEL 2022-09-22 23:28:00 [facility] 2022-09-22 23:28:[address] [facility] CBC WITH PLATELET AND 2022-09-22 23:28:00 [facility] DIFFERENTIAL [facility] B NATRIURETIC PEPTIDE 2022-09-22 23:28:00 [facility] ESTIMATED GFR 2022-09-22 23:28:[address] [facility] COVID-19 (ID NOW RAPID 2022-09-22 17:13:00 Salomon Meyer [facility] URINALYSIS 2022-09-22 15:27:00 Salomon Meyer [facility] XR CHEST 1 VW 2022-09-22 14:52:00 Salomon Meyer [facility] MAGNESIUM 2022-09-22 14:48:00 Salomon Meyer [facility] TROPONIN I 2022-09-22 14:48:00 Salomon Meyer [facility] COMP. METABOLIC PANEL 2022-09-22 14:48:00 Salomon Meyer [facility] ([id number]) Medical Branch DIGOXIN 2022-09-22 14:48:00 Salomon Meyer [facility] CBC WITH DIFF 2022-09-22 14:48:00 Salomon Meyer [place] [facility] N-TERMINAL PRO-BNP 2022-09-22 14:48:00 Salomon Meyer [facility] NOTICE OF PRIVACY 2022-09-22 14:24:51 Doctor Unassigned, [facility] PRACTICES [facility] CONSENT/REFUSAL FOR 2022-09-22 14:24:21 Doctor Unassigned, [facility] DIAGNOSIS AND TREATMENT [place] [facility]ia BASIC METABOLIC PANEL 2022-09-06 14:23:00 Kathy Pena [facility] B NATRIURETIC PEPTIDE 2022-09-06 14:23:00 [facility] MAGNESIUM LEVEL 2022-09-06 14:23:00 Kathy Pena [facility] POC GLUCOSE 2022-08-29 19:27:00 Lucero Mckinney [facility] POC GLUCOSE 2022-08-29 18:17:00 Lucero Mckinney [facility] POC GLUCOSE 2022-08-29 14:03:00 Lucero Mckinney [facility] BASIC METABOLIC PANEL 2022-08-29 10:19:[address] [facility] Luke MAGNESIUM LEVEL 2022-08-29 10:19:00 [facility] Luke PHOSPHORUS LEVEL 2022-08-29 10:19:00 Jt Platt [facility] Luke CBC WITH PLATELET AND 2022-08-29 10:19:[address] [facility] DIFFERENTIAL Luke FERRITIN LEVEL 2022-08-29 10:19:00 [facility] Luke TOTAL IRON BINDING 2022-08-29 10:19:00 Jt [facility] CAPACITY Luke ESTIMATED GFR 2022-08-29 10:19:00 Lc [facility] Luke POC GLUCOSE 2022-08-29 03:30:00 Lucero Mckinney [facility] POC GLUCOSE 2022-08-29 00:16:00 Velma [facility]ckin[facility] POC GLUCOSE 2022-08-28 18:21:00 Velma Mck[facility]neyta [facility] POC GLUCOSE 2022-08-28 13:54:00 MckinneyVelma skinnerta [facility] COMPREHENSIVE METABOLIC 2022-08-28 11:33[facility]00 [facility] CBC WITH PLATELET AND 2022-08-28 11:33:00 [facility] DIFFERENTIAL Bhatia ESTIMATED GFR 2022-08-28 11:33:00 [facility] POC [facility]UCOSE 2022-08-28 02:57:00 Velma [facility]in[facility]ta [facility] POC GLUCOSE 2022-08-27 23:54:00 MckinneyVelma skinnerta [facility] POC GLUCOSE 2022-08-27 21:33:00 MckinneyVelma skinnerta [facility] POC GLUCOSE 2022-08-27 18:34:00 MckinneyVelma skinnerta [facility] POC GLUCOSE 2022-08-27 14:47:00 Lucero Mckinney [facility] COMPREHENSIVE METABOLIC 2022-08-27 09:21:00 [facility] Bhatia CBC WITH PLATELET AND 2022-08-27 09:21:00 [facility] Bhatia ESTIMATED GFR 2022-08-27 09:21:00 [facility] POC GLUCOSE 2022-08-27 04:00:00 MckinneyVelma skinnerta [facility] POC GLUCOSE 2022-08-27 02:56:00 MckinneyVelma skinnerta [facility] POC GLUCOSE 2022-08-27 01:14:00 MckinneyPillo skinnerLucero [facility] POC GLUCOSE 2022-08-26 23:57:00 Lucero Mckinney Ho spital POC GLUCOSE 2022-08-26 18:27:00 Lucero Mckinney Ho spital POC GLUCOSE 2022-08-26 14:43:00 Lucero Mckinney Ho spital B NATRIURETIC PEPTIDE 2022-08-26 09:59:00 [facility] Bhatia COMPREHENSIVE METABOLIC 2022-08-26 09:59:00 [facility] PANEL Bhatia CBC WITH PLATELET AND 2022-08-26 09:59:00 [facility] DIFFERENTIAL Bhatia ESTIMATED GFR 2022-08-26 09:59:00 [facility] Bhatia POC GLUCOSE 2022-08-26 03:09:00 Lucero Mckinney Ho spital POC GLUCOSE 2022-08-25 23:33:00 Lucero Mckinney Ho spital POC GLUCOSE 2022-08-25 19:59:00 Lucero Mckinney Ho spital POC GLUCOSE 2022-08-25 14:50:00 Lucero Mckinney Ho spital CBC WITH PLATELET AND 2022-08-25 11:10:00 [facility] DIFFERENTIAL COMPREHENSIVE METABOLIC 2022-08-25 11:10:00 [facility] PANEL ESTIMATED GFR 2022-08-25 11:10:00 Lucero Mckinney Ho spital POC GLUCOSE 2022-08-25 03:20:00 Lucero Mckinney Ho spital ECG 12-LEAD 2022-08-25 01:31:54 Georgina Dominguez spital XR CHEST 1 VW PORTABLE 2022-08-25 01:18:27 Reed [facility] POC GLUCOSE 2022-08-25 00:48:00 Lucero Mckinney Ho spital COVID-19 QUALITATIVE 2022-08-25 00:20:00 Srinath [facility] RT-PCR CREATININE LEVEL 2022-08-25 00:20:00 Srinath iram [facility] LDH 2022-08-25 00:20:00 Lucero Mckinney spital LACTIC ACID LEVEL 2022-08-25 00:20:00 [facility] NATRIURETIC PEPTIDE 2022-08-25 00:20:00 [facility] T 2022-08-25 00:20:00 Lucero Mckinney spital COMPREHENSIVE METABOLIC 2022-08-25 00:20:00 Pillo Mckinneychita [facility] PANEL CBC WITH PLATELET AND 2022-08-25 00:20:00 [facility] DIFFERENTIAL ESTIMATED GFR 2022-08-25 00:20:00 Lucero Mckinney spital BASIC METABOLIC PANEL 2022-08-16 20:02:00 [facility] CBC WITH PLATELET AND 2022-08-16 20:02:00 [facility] DIFFERENTIAL NT-PROBNP 2022-08-16 20:02:00 Georgina Dominugez spital DIGOXIN LEVEL 2022-08-16 20:02:00 [facility] POC GLU[facility]SE 2022-07-25 14:30:00 Lucero Mckinney spital CBC WITH PLATELET AND 2022-07-25 10:39:00 [facility] DIFFERENTIAL PARTIAL THROMBOPLASTIN 2022-07-25 10:39:00 Pillo Mckinneychita [facility] TIME (PTT) BASIC METABOLIC PANEL 2022-07-25 10:39:00 [facility] Luke MAGNESIUM LEVEL 2022-07-25 10:39:00 [facility] Luke PHOSPHORUS LEVEL 2022-07-25 10:39:00 [facility] Luke ESTIMATED GFR 2022-07-25 10:39:00 [facility] Luke POC GLUCOSE 2022-07-25 02:44:00 Lucero Mckinney Ho spital POC GLUCOSE 2022-07-24 23:50:00 Lucero Mckinney Ho spital POC GLUCOSE 2022-07-24 20:50:00 Lucero Mckinney Ho spital CV RIGHT HEART CATH 2022-07-24 20:27:[address] 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 2022-07-24 20:27:31 Ivania Miller [facility] POC GLUCOSE 2022-07-24 18:19:00 Lucero Mckinney Ho spital PROTHROMBIN TIME WITH INR 2022-07-24 16:16:00 Lucero Mckinney [facility] POC GLUCOSE 2022-07-24 13:33:00 Lucero Mckinney spital CBC WITH PLATELET AND 2022-07-24 06:21:00 [facility] DIFFERENTIAL BASIC METABOLIC PANEL 2022-07-24 06:21:00 [facility] Luke MAGNESIUM LEVEL 2022-07-24 06:21:00 [facility] Luke PHOSPHORUS LEVEL 2022-07-24 06:21:00 [facility] Luke PARTIAL THROMBOPLASTIN 2022-07-24 06:21:00 [facility] ([facility] ESTIMATED GFR 2022-07-24 06:21:00 [facility] Luke POC GLUCOSE 2022-07-24 00:19:00 Lucero Mckinney spital PARTIAL THROMBOPLASTIN 2022-07-24 00:11:00 Pillo Mckinneychita [facility] TIME (PTT) POC GLUCOSE 2022-07-23 18:46:00 Lucero Mckinney Ho spital PARTIAL THROMBOPLASTIN 2022-07-23 16:06:00 Pillo Mckinneychita [facility] TIME (PTT) POC GLUCOSE 2022-07-23 13:24:00 Lucero Mckinney Ho spital CBC WITH PLATELET AND 2022-07-23 09:54:00 [facility] DIFFERENTIAL COMPREHENSIVE METABOLIC 2022-07-23 09:54:00 Pillo [facility]neychita [facility] PANEL MAGNESIUM LEVEL 2022-07-23 09:54:00 [facility] Luke PHOSPHORUS LEVEL 2022-07-23 09:54:00 [facility] Luke PARTIAL THROMBOPLASTIN 2022-07-23 09:54:00 Mckinney [facility] TIME (PTT) ESTIMATED GFR 2022-07-23 09:54:00 Lucero Mckinney Ho spital POC GLUCOSE 2022-07-23 01:54:00 MckinneyLucero Ho spital PARTIAL THROMBOPLASTIN 2022-07-23 01:36:00 [facility], [facility] TIME (PTT) POC GLUCOSE 2022-07-22 22:34:00 Lucero Mckinney Ho spital POC GLUCOSE 2022-07-22 17:15:00 Lucero Mckinney Ho spital PARTIAL THROMBOPLASTIN 2022-07-22 16:33:00 [facility] TIME (PTT) POC GLUCOSE 2022-07-22 12:37:00 Lucero Mckinney spital CBC WITH PLATELET AND 2022-07-22 09:14:00 MckinneyLucero skinner [facility] DIFFERENTIAL PARTIAL THROMBOPLASTIN 2022-07-22 09:14:00 [facility], [facility] TIME (PTT) MAGNESIUM LEVEL 2022-07-22 09:14:00 [facility] Luke PHOSPHORUS LEVEL 2022-07-22 09:14:00 [facility] Luke ESTIMATED GFR 2022-07-22 09:14:00 [facility] Luke COMPREHENSIVE METABOLIC 2022-07-22 09:14:00 [facility] PANEL Luke ESTIMATED GFR 2022-07-22 09:05:00 Lucero Mckinney spital POC GLUCOSE 2022-07-22 01:43:00 MckinneyLucero skinner Ho spital PARTIAL THROMBOPLASTIN 2022-07-22 00:41:00 [facility] PROT[facility]OMBIN TIME WITH INR 2022-07-22 00:41:00 [facility] POC [facility]SE 2022-07-21 22:40:00 Lucero Mckinney spital COVID-19 QUALITATIVE 2022-07-21 19:42:00 [facility] RT[facility]PCR POC GLUCOSE 2022-07-21 17:12:00 Lucero Mckinney spital POC GLUCOSE 2022-07-21 12:58:00 Lucero Mckinney spital MAGNESIUM LEVEL 2022-07-21 10:38:00 [facility] Luke PHOSPHORUS LEVEL 2022-07-21 10:38:00 [facility] Luke CBC WITH PLATELET AND 2022-07-21 10:38:00 [facility]ckinneyPillo [facility]nerLucero[facility] DIFFERENTIAL COMPREHENSIVE METABOLIC 2022-07-21 10:38:00 [facility] ESTIMATED GFR 2022-07-21 10:38:00 Lucero Mckinney spital B NATRIURETIC PEPTIDE 2022-07-21 10:38:00 [facility] POC GLUCOSE 2022-07-21 02:09:00 Lucero Mckinney spital POC GLUCOSE 2022-07-20 22:50:00 Lucero Mckinney spital POC GLUCOSE 2022-07-20 17:42:00 Lucero Mckinney spital ECG 12-LEAD 2022-07-20 16:39:17 MeloGeorgina barrett spital POC GLUCOSE 2022-07-20 14:37:00 Lucero Mckinney spital POC GLUCOSE 2022-07-20 13:05:00 Lucero Mckinney spital CBC WITH PLATELET AND 2022-07-20 10:53:00 [facility] DIFFERENTIAL COMPREHENSIVE METABOLIC 2022-07-20 10:53:00 [facility] PANEL MAGNESIUM LEVEL 2022-07-20 10:53:00 [facility] PHOSPHORUS LEVEL 2022-07-20 10:53:00 [facility] DIGOXIN LEVEL 2022-07-20 10:53:00 [facility] ESTIMATED GFR 2022-07-20 10:53:00 Lucero Mckinney spital POC GLUCOSE 2022-07-20 01:28:00 Lucero Mckinney Ho spital POC GLUCOSE 2022-07-19 22:59:00 MckinneyLucero skinner Ho spital POC GLUCOSE 2022-07-19 17:45:00 MckinneyLucero skinner spital TTE COMPLETE, W CONTRAST, 2022-07-19 16:40:00 [facility] W DOPPLER ([id number]) POC GLUCOSE 2022-07-19 13:30:00 Lucero Mckinney spital CBC WITH PLATELET AND 2022-07-19 10:23:00 [facility] DIFFERENTIAL COMPREHENSIVE METABOLIC 2022-07-19 10:23:00 Pillo Mckinneychita [facility] PANEL MAGNESIUM LEVEL 2022-07-19 10:23:00 [facility] PHOSPHORUS LEVEL 2022-07-19 10:23:00 [facility] ESTIMATED GFR 2022-07-19 10:23:00 Lucero Mckinney spital POC GLUCOSE 2022-07-19 02:03:00 Lucero Mckinney spital US RENAL 2022-07-19 00:35:00 Anumantahira [facility] Bhatia POC GLUCOSE 2022-07-18 23:46:00 Lucero Mckinney spital POC GLUCOSE 2022-07-18 19:17:00 Lucero Mckinney spital POC GLUCOSE 2022-07-18 17:55:00 Lucero Mckinney spital CV RIGHT HEART CATH 2022-07-18 17:34:52 Anumantahira [facility] Bhatia POC GLUCOSE 2022-07-18 14:48:00 Lucero Mckinney Ho spital POC GLUCOSE 2022-07-18 14:14:00 Lucero Mckinney Ho spital POC GLUCOSE 2022-07-18 12:15:00 Lucero Mckinney spital CREATININE LEVEL, URINE, 2022-07-18 12:08:00 Tracy Stockton [facility] RANDOM Soumya URINALYSIS SCREEN AND 2022-07-18 12:07:00 Mahin [facility] MICROSCOPY, WITH REFLEX TO Soumya CULTURE VITAMIN D 25 HYDROXY LEVEL 2022-07-18 10:25:00 Priscilla Knowles [facility] Waithera CBC WITH PLATELET AND 2022-07-18 10:24:00 [facility] DIFFERENTIAL COMPREHENSIVE METABOLIC 2022-07-18 10:24:00 [facility] PANEL MAGNESIUM LEVEL 2022-07-18 10:24:00 Lucero Mckinney spital PHOSPHORUS LEVEL 2022-07-18 10:24:00 Lucero Mckinney H ospital ESTIMATED GFR 2022-07-18 10:24:00 Lucero Mckinney spital URINE CULTURE 2022-07-18 05:07:00 Tracy Stockton H ospital Soumya POC GLUCOSE 2022-07-18 03:04:00 Lucero Mckinney spital XR CHEST 1 VW PORTABLE 2022-07-17 22:36:49 [facility] POC GLUCOSE 2022-07-17 22:30:00 Lucero Mckinney Ho spital POC GLUCOSE 2022-07-17 20:40:00 Lucero Mckinney Ho spital LDH 2022-07-17 17:46:00 Lucero Mckinney spital LACTIC ACID LEVEL 2022-07-17 17:46:00 [facility] B NATRIURETIC PEPTIDE 2022-07-17 17:46:00 [facility] TROPONIN T 2022-07-17 17:46:00 Lucero Mckinney Ho spital COMPREHENSIVE METABOLIC 2022-07-17 17:46:00 Lucero Mckinney [facility] PANEL CBC WITH PLATELET AND 2022-07-17 17:46:00 [facility] DIFFERENTIAL ESTIMATED GFR 2022-07-17 17:46:00 MckinenyLucero Ho spital MAGNESIUM LEVEL 2022-07-17 17:46:00 Mckinney, Lucero Alves Ho spital COVID-19 QUALITATIVE 2022-07-17 17:35:00 [facility] POC GLUCOSE 2022-07-17 17:05:00 Lucero Mckinney Ho spital NT-PROBNP 2022-07-12 20:58:00 MeloGeorgina barrett Ho spital BASIC METABOLIC PANEL 2022-07-12 20:58:00 [facility] BASIC METABOLIC PANEL 2022-07-06 12:04:00 [facility] CBC WITH PLATELET AND 2022-07-06 12:04:00 [facility] DIFFERENTIAL DIGOXIN LEVEL 2022-07-06 12:04:00 Georgina Dominguez Ho spital NT-PROBNP 2022-07-06 12:04:00 Georgina Dominguez Ho spital PV PHYSIOLOGIC ARTERIAL 2022-06-14 13:22:29 [facility] LOWER EXTREMITY COMPLETE Raj POC GLUCOSE 2022-04-27 21:28:00 [facility] Raj POC GLUCOSE 2022-04-27 19:25:00 [facility] Raj ACTIVATED CLOTTING TIME 2022-04-27 18:22:00 [facility] Raj POC ARTERIAL BLOOD GAS, 2022-04-27 18:09:00 [facility] CORRECTED AND LYTES Raj ACTIVATED CLOTTING TIME 2022-04-27 17:44:00 [facility] Raj ARTERIAL LINE 2022-04-27 17:26:44 Kevin Lopez H ospital SC AN ELECTIVE 2022-04-27 16:55:00 Angely Naidu [facility] ENDOTRACHEAL AIRWAY L. AORTOGRAPHY, POSSIBLE 2022-04-27 16:45:00 [facility] ANGIOPLASTY Raj POTASSIUM, SYRINGE 2022-04-27 13:30:00 [facility] Raj SODIUM LEVEL, SYRINGE 2022-04-27 13:30:00 [facility] Raj HEMOGLOBIN, SYRINGE 2022-04-27 13:30:00 [facility] Raj GLUCOSE LEVEL, SYRINGE 2022-04-27 13:30:00 [facility] Raj TYPE AND SCREEN 2022-04-24 13:48:00 [facility] 2022-04-24 13:48:00 [facility] TIME (PTT) Raj PROTHROMBIN TIME WITH INR 2022-04-24 13:48:00 [facility] BASIC METABOLIC PANEL 2022-04-24 13:48:00 [facility] WITH PLATELET AND 2022-04-24 13:48:00 [facility] DIFFERENTIAL Raj ESTIMATED GFR 2022-04-24 13:48:00 [facility] Raj CV MRA ABDOMEN PELVIS W WO 2022-03-28 18:09:46 [facility] CONTRAST Raj ESTIMATED GFR 2022-03-28 17:19:00 [facility] Raj POC PANEL 2022-03-28 17:19:00 [facility] BASIC METABOLIC PANEL 2022-03-21 16:03:00 Georgina Dominguez [facility] FERRITIN LEVEL 2022-03-15 16:08:00 [facility] Raj TOTAL IRON BINDING 2022-03-15 16:08:00 [facility] CREATININE LEVEL 2022-03-15 16:08:00 [facility] BUN LEVEL 2022-03-15 16:08:00 [facility] Raj BASIC METABOLIC PANEL 2022-03-14 12:04:00 [facility] ECG 12-LEAD 2022-03-08 18:11:51 Melo, [facility] spital BASIC METABOLIC PANEL 2022-03-02 12:14:00 [facility] CBC WITH PLATELET AND 2022-03-02 12:14:00 [facility] DIFFERENTIAL B NATRIURETIC PEPTIDE 2022-03-02 12:14:00 [facility] US ANKLE BRACHIAL INDEX 2021-10-13 16:45:00 [facility], [facility] US CAROTID DUPLEX 2021-10-13 16:00:00 [facility] BILATERAL TTE COMPLETE, W CONTRAST, 2021-10-13 13:43:40 [facility] W DOPPLER ([id number]) ECG 12-LEAD 2021-09-21 20:08:11 Georgina Dominguez spital BASIC METABOLIC PANEL 2021-09-15 13:02:00 [facility] DIGOXIN LEVEL 2021-09-15 13:02:00 Melo, [facility] spital CBC WITH PLATELET AND 2021-09-15 13:02:00 [facility] DIFFERENTIAL NT-PROBNP 2021-09-15 13:02:00 MeloGeorgina barrett spital BASIC METABOLIC PANEL 2021-06-22 12:02:00 [facility] NT-PROBNP 2021-06-22 12:02:00 Melo, [facility] sp[facility] [[facility]] Ortho - Surgery 2020-12-30 00:00:00 [facility] [[facility]MD] XRAY Chest 2 Views 2020-11-17 00:00:00 [facility] XRAY Chest 2 views [id number] 2020-11-17 00:00:00 [facility] MR Deras wo contrast 2020-10-07 00:00:00 [id number] Plan of Care Planned Activity Planned Date Details Comments Source Future Scheduled 2022-12-14 65+ [facility] 07:42:06 VACCINE (1 - PCV) [code = 65+ PNEUMOCOCCAL VACCINE (1 - PCV)] Future Scheduled 2022-12-14 DIABETIC FOOT EXAM [facility] Test 07:42:06 [code = DIABETIC FOOT EXAM] Future Scheduled 2022-12-14 SHINGLES VACCINES (1 Met [facility] Test 07:42:06 of 2) [code = SHINGLES VACCINES (1 of 2)] Future Scheduled 2022-12-14 COLONOSCOPY SCREENING [facility] Test 07:42:06 [code = COLONOSCOPY SCREENING] Future Scheduled 2022-12-14 Screening for [facility] Test 07:42:06 malignant neoplasm of lung (procedure) [code = [id number]] Future Scheduled 2022-12-14 DIABETES: RETINAL EYE [facility] Test 07:42:06 EXAM [code = DIABETES: RETINAL EYE EXAM] Future Scheduled 2022-09-[address] [facility] Test 00:00:00 (12+) [code = Medical Center DEPRESSION SCREENING (12+)] Future Scheduled 2022-09-17 FALLS RISK SCREENING [facility] Test 00:00:00 [code = FALLS RISK Medical C enter SCREENING] Future Scheduled 2022-09-[address] [facility] Test 00:00:00 (12+) [code = Medical Center DEPRESSION SCREENING (12+)] Future Scheduled 2022-09-17 FALLS RISK SCREENING [facility] Test 00:00:00 [code = FALLS RISK Medical C enter SCREENING] Future Scheduled 2022-07-13 HEPATITIS B VACCINES Met [facility] Test 02:34:05 (1 of 3 - 3-dose series) [code = HEPATITIS B VACCINES (1 of 3 - 3-dose series)] Future Scheduled 2022-07-13 65+ [facility]CCAL [facility] 02:34:05 VACCINE (1 - PCV) [code = 65+ PNEUMOCOCCAL VACCINE (1 - PCV)] Future Scheduled 2022-07-13 DIABETIC FOOT EXAM [facility] Test 02:34:05 [code = DIABETIC FOOT EXAM] Future Scheduled 2022-07-13 SHINGLES VACCINES (1 Met [facility] Test 02:34:05 of 2) [code = SHINGLES VACCINES (1 of 2)] Future Scheduled 2022-07-13 COLONOSCOPY SCREENING [facility] Test 02:34:05 [code = COLONOSCOPY SCREENING] Future Scheduled 2022-07-13 Screening for [facility] Test 02:34:05 malignant neoplasm of lung (procedure) [code = 225160106] Future Scheduled 2022-07-13 DIABETES: RETINAL EYE [facility] Test 02:34:05 EXAM [code = DIABETES: RETINAL EYE EXAM] Future Scheduled 2022-06-25 HEPATITIS B VACCINES Met [facility] Test 05:51:12 (1 of 3 - 3-dose series) [code = HEPATITIS B VACCINES (1 of 3 - 3-dose series)] Future Scheduled 2022-06-25 65+ [facility] Test 05:51:12 VACCINE (1 - PCV) [code = 65+ PNEUMOCOCCAL VACCINE (1 - PCV)] Future Scheduled 2022-06-25 DIABETIC FOOT EXAM [facility] Test 05:51:12 [code = DIABETIC FOOT EXAM] Future Scheduled 2022-06-25 SHINGLES VACCINES (1 Met [facility] Test 05:51:12 of 2) [code = SHINGLES VACCINES (1 of 2)] Future Scheduled 2022-06-25 COLONOSCOPY SCREENING [facility] Test 05:51:12 [code = COLONOSCOPY SCREENING] Future Scheduled 2022-06-25 Screening for [facility] Test 05:51:12 malignant neoplasm of lung (procedure) [code = [id number]] Future Scheduled 2022-06-25 INFLUENZA VACCINE [facility] Test 05:51:12 [code = INFLUENZA VACCINE] Future Scheduled 2022-06-25 DIABETES: RETINAL EYE [facility] Test 05:51:12 EXAM [code = DIABETES: RETINAL EYE EXAM] Future Scheduled 2022-05-29 HEPATITIS B VACCINES Met [facility] Test 07:14:33 (1 of 3 - 3-dose series) [code = HEPATITIS B VACCINES (1 of 3 - 3-dose series)] Future Scheduled 2022-05-29 65+ [facility]OCOCCAL [facility] Test 07:14:33 VACCINE (1 - PCV) [code = 65+ PNEUMOCOCCAL VACCINE (1 - PCV)] Future Scheduled 2022-05-29 [facility] Test 07:14:33 [code = DIABETIC FOOT EXAM] Future Scheduled 2022-05-29 [facility]ING[facility]INES ([facility] 07:14:33 of 2) [code = SHINGLES VACCINES (1 of 2)] Future Scheduled 2022-05-29 COLONOSCOPY SCREENING [facility] Test 07:14:33 [code = COLONOSCOPY SCREENING] Future Scheduled 2022-05-29 [facility] Test 07:14:33 malignant neoplasm of lung (procedure) [code = [id number]] Future Scheduled 2022-05-29 INFLUENZA VACCINE [facility] Test 07:14:33 [code = INFLUENZA VACCINE] Future Scheduled 2022-05-29 DIABETES: RETINAL EYE [facility] Test 07:14:33 EXAM [code = DIABETES: RETINAL EYE EXAM] Diagnostic Test 2020-12-30 [[facility]] Ortho - Surgery [facility] Pending 00:00:00 Scheduling [code = [[facility]] Ortho - Surgery Scheduling] Diagnostic Test 2020-10-07 MR Shoulder [facility]:00 contrast [id number] [code = 59951] Diagnostic Test 2020-10-07 MR [facility]er wo [facility] 00:[facility]:00 contrast [id number] [code = 31434] Future Scheduled 2018-06-[address] [facility]00 [facility] (procedure) [code = 62120602] Future Scheduled 2017-09-[address] [facility] Test 00:00:00 WELLNESS (YEAR 2 or Medical Center FIRST YEAR if no IPPE) [code = MEDICARE ANNUAL WELLNESS (YEAR 2 or FIRST YEAR if no IPPE)] Future Scheduled 2015 PNEUMOCOCCAL 65+ YRS [facility] Test 00:00:00 (1 - PCV) [code = Medical Ce nter PNEUMOCOCCAL 65+ YRS (1 - PCV)] Future Scheduled 2000 SHINGLES VACCINES ([address] [facility] Test 00:00:00 of 2) [code = SHINGLES Medic al Center VACCINES (1 of 2)] Future Scheduled 2000 SHINGLES VACCINES ([address] [facility] Test 00:00:00 of 2) [code = SHINGLES Medic al Center VACCINES (1 of 2)] Future Scheduled 1969 DTAP/TDAP/TD VACCINES [facility] Test 00:00:00 (1 - Tdap) [code = Medical C enter DTAP/TDAP/TD VACCINES (1 - Tdap)] Future Scheduled 1969 DTAP/TDAP/TD VACCINES [facility] Test 00:00:00 (1 - Tdap) [code = Medical C enter DTAP/TDAP/TD VACCINES (1 - Tdap)] Future Scheduled [address] [facility] Test 00:00:00 Counseling and Medical Cente r Screening (12+) [code = Tobacco Cessation Counseling and Screening (12+)] Future Scheduled [address] [facility] Test 00:00:00 [facility]ing [facility] Medical Cente r Screening (12+) [code = Tobacco Cessation Counseling and Screening (12+)] Future Scheduled 1960 DIABETIC EYE EXAM [facility] Test 00:00:00 [code = DIABETIC EYE Medical Center EXAM] Future Scheduled [address] [facility] Test 00:00:00 examination Medical Center (regime/therapy) [code = [id number]] Future Scheduled 1960 Urine screening for [facility] Test 00:00:00 protein (procedure) [facility] Center [code = [id number]] Future Scheduled 1956 PNEUMOCOCCAL 65+ [facility] Test 00:00:00 (1 - PCV) [code = Medical Ce nter PNEUMOCOCCAL 65+ YRS (1 - PCV)] Future Scheduled [address] [facility] Test 00:00:00 (combo) [code = CT Medical C enter Colonography (combo)] Future Scheduled [address] [facility] Test 00:00:00 [facility] colon (procedure) [code = [id number]] Future Scheduled [address] [facility] Test 00:00:00 [facility] colon (procedure) [code = [id number]] Future Scheduled [address] [facility] Test 00:00:00 [facility] colon (procedure) [code = [id number]] Future Scheduled [address] [facility] Test 00:00:00 [facility] colon (procedure) [code = [id number]] Future Scheduled 1950 Sigmoidoscopy [code = [facility]] Medical [facility] r Future Scheduled [address] [facility] Test 00:00:00 (combo) [code = CT Medical C enter Colonography (combo)] Future Scheduled [address] [facility] Test 00:00:00 [facility] colon (procedure) [code = [id number]] Future Scheduled [address] [facility] Test 00:00:00 [facility] colon (procedure) [code = [id number]] Future Scheduled [address] [facility] colon (procedure) [code = 308807797] Future Scheduled [address] [facility] 00:[facility]:00 malignant ne[facility] colon (procedure) [code = 299332223] Future Scheduled 1950 Sigmoidoscopy [facility]code [facility] 00[facility] S[facility]oscopy] Medical Yovana r Encounters Start End Encounter Admission Attending Care Care Encounter Source Date/Time Date/Time Type Type Clinicians Facility Department ID 2023-01-10 Preadmit nullFlavo [facility] [id number] [place] 04:02:35 melissa Steward 2022-08-29 Outpatient Guzman, Na [facility] [id number] 2 Common 08:30:00 [id number] [facility] 2022-02-24 Outpatient Guzman, Na [facility]LC [facility] [id number] 2 Common 10:00:00 [id number] [facility] 2021-10-12 Outpatient Guzmna, Na STLMLC [facility] [id number] 2 Common 14:23:13 [id number] [facility] 2021-10-12 Outpatient Guzman, Na STLMLC [facility] [id number] 2 Common 13:26:20 [id number] [facility] 2021-10-12 Outpatient Guzman, Na [facility] [id number] 2 Common 13:26:05 [id number] [facility] 2021-10-12 Outpatient Guzman, Na STLMLC ST[facility] [id number] 2 Common 12:49:48 [id number] [facility] 2021-10-12 Outpatient Guzman, Na STLMLC STLMLC [id number] 2 Common 12:43:40 [id number] [facility] 2021-10-12 Outpatient Guzman, Na STLMLC STLMLC [id number] 2 Common 12:18:20 [id number] [facility] 2021-10-12 Outpatient Guzman, Na STLMLC STLMLC [id number] 2 Common 11:46:50 [id number] [facility] 2021-10-12 Outpatient Guzman, Na STLMLC STLMLC [id number] 2 Common 11:29:53 [id number] [facility] 2021-10-12 Outpatient Guzman, Na STLMLC STLMLC [id number] 2 Common 11:29:29 [id number] [facility] 2021-10-12 Outpatient Guzman, Na STLMLC STLMLC [id number] 2 Common 11:27:56 [id number] [facility] 2021-05-11 Preadmit nullFlavo [facility] [id number] [place] 14:32:37 melissa Steward 2021-03-04 Outpatient MANJARREZ, [facility] [id number] [place] 09:15:15 [facility] 2021-02-20 Outpatient MANJARREZ, [facility] [id number] [place] 01:03:31 [facility] 2021-02-02 Outpatient TY, [facility] [id number] [place] 13:56:34 [facility]ICHOLETTE [facility] 2021-02-02 Outpatient [facility] [id number] [place] 13:55:48 Health 2021-01-26 Outpatient [facility] [id number] [place] 10:48:01 [facility] 2021-01-22 Outpatient MANJARREZ, [facility] [id number] [place] 04:11:18 [facility] 2022-12-14 2023-01-07 Inpatient ER GAURANG [facility] Cardiac ICU [id number] [facility] 17:51:00 09:40:00 LATASHA 2022-12-14 2023-01-07 Hospital Daphne Guillaume [facility] [id number] 17:51:00 09:40:00 Encounter Dipika Bourgeois [facility] 2022-12-27 2022-12-27 Surgery Joaquin, [facility] [id number] 14:49:00 16:19:00 [facility] 2022-12-25 2022-12-25 Abstract Link, [facility] [id number] [facility] 00:00:00 00:00:00 Chan [facility] 2022-12-20 2022-12-20 Surgery [facility] [id number] 08:58:00 11:31:00 [facility] 2022-12-20 2022-12-20 [id number] 00:[facility]00 00:00:00 ion Steviegenna [facility] 2022-12-15 2022-12-15 Travel [facility] [id number] [facility] 00:[facility] 00:00:00 [facility] 2022-12-13 2022-12-13 Office [place] 58012.2.840.1 [id number] Methodi 10:10:00 13:01:03 Visit Troy 05796.1.1 110 s t Raj 3.430.2.7 Hospi ta .3.644846 l .8 2022-12-13 2022-12-[address] [facility] [id number] Dorothy 00:00:00 00:00:00 TROY [address] 2022-12-13 2022-12-13 Travel 1.2.840.1 1.2.184.660 7840 [id number] Methodi 00:00:00 00:00:[address] 3.430.2.7 0.2.7.3.698 Ho spita .3.909024 084.8 l .8 2022-12-12 2022-12-12 Remote [place], 1.2.840.1 [id number] 72150 50616 Methodi 00:00:00 00:00:00 Monitoring Vida 21617.1.1 842 s t 3.430.2.7 Hospit a .3.114627 l .8 2022-12-05 2022-12-05 Office Practitione 1.2.840.1 [id number] Methodi 14:00:00 14:30:[place] [address] Cardio Hmh 3.430.2.7 Hos chloe Sm 1901 .3.618191 l Nurse .8 2022-12-05 2022-12-05 Telephone Dwayne, 1.2.840.1 [id number] Methodi 00:00:00 00:00:[address] 3.430.2.7 Hospit a .3.845497 l .8 2022-12-05 2022-12-05 Travel 1.2.840.1 1.2.859.700 3430 543446 Methodi 00:00:00 00:00:[address] 3.430.2.7 0.2.7.3.698 Ho spita .3.146790 084.8 l .8 2022-12-05 2022-12-05 Remote [place], 1.2.840.1 [id number] 67698 Methodi 00:00:00 00:00:00 Monitoring Vida 87655.1.1 486 s t 3.430.2.7 Hospit a .3.173345 l .8 2022-12-05 2022-12-[address] FranciscoAna Maria [id number] [id number] 00:[facility] 00:00:00 ion Latasha E [facility] 2022-12-05 2022-12-05 Orders Francisco [facility] [id number] 00:00:00 00:00:00 Only Latasha Galan [facility] 2022-12-05 2022-12-05 Documentat Francisco [facility] [id number] [id number] 00:00:00 00:00:00 ion Latasha Angelia [facility] 2022-12-05 2022-12-05 Orders Francisco [facility] [id number] [address] 00:00:00 00:00:00 Only [facility] 2022-12-04 2022-12-04 Telephone Rk, 1.2.840.1 [id number] 21 [id number] Methodi 00:00:00 00:00:[address] 3.430.2.7 Hospit a .3.606599 l .8 2022-11-30 2022-11-30 Telephone Melo, 1.2.840.1 [id number] 414 6637457 Methodi 00:00:00 00:00:[address] 3.430.2.7 Hospit a .3.537739 l .8 2022-11-14 2022-11-30 [place] [id number] [place] [address] 00:00:00 00:00:00 Encounter LUCERO [address] 2022-11-24 2022-11-24 Anesthesia Nitin Ulrich 1.2.840.1 [id number] Methodi 10:12:00 10:45:00 Event Lala Mendenhall 48280.1.[address] 3.430.2.7 Hospit a .3.484557 l .8 2022-11-23 2022-11-23 Surgery Chito, 1.2.840.1 [id number] 662389 2086 Methodi 16:05:00 18:15:[address] 3.430.2.7 Hospit a .3.147585 l .8 2022-11-23 2022-11-23 Anesthesia Sara Carolina 1.2.840.1 [id number] 3831818097 Methodi 12:08:00 15:18:00 Event Yolanda Willis 55158.1.[address] 3.430.2.7 Hospit a .3.625384 l .8 2022-11-17 2022-11-17 Surgery Jeanie, 1.2.840.1 [id number] 839 0406393 Methodi 08:30:00 09:30:[address] 3.430.2.7 Hospit a .3.778189 l .8 2022-11-14 2022-11-15 Office Melo, 1.2.840.1 [id number] 99631 85905 Methodi 15:40:00 08:31:33 Visit Imad 72711.1.[address] 3.430.2.7 Hospit a .3.744351 l .8 2022-11-15 2022-11-15 Telephone Bushra, 1.2.840.1 [id number] 2100 346514 Methodi 00:00:00 00:00:00 Patricia R [address]155.1.[address] 3.430.2.7 Hospit a .3.418022 l .8 2022-11-14 2022-11-14 Travel 1.2.840.1 1.2.215.872 3655 355286 Methodi 00:00:00 00:00:[address] 3.430.2.7 0.2.7.3.698 Ho spita .3.461986 084.8 l .8 2022-11-14 2022-11-14 Telephone Jamison, 1.2.840.1 [id number] 2 [id number] Methodi 00:00:00 00:00:[address] 3.430.2.7 Hospit a .3.707629 l .8 2022-11-14 2022-11-14 Remote Semones, 1.2.840.1 225284990 12080 31315 Methodi 00:00:00 00:00:00 Monitoring [place]ida 70113.1.1 447 s t 3.430.2.7 Hospit a .3.653763 l .8 2022-11-10 2022-11-10 Adri Swift, 1.2.840.1 [id number] 2 [id number] Methodi 00:00:00 00:00:[address] 3.430.2.7 Hospit a .3.188152 l .8 2022-11-07 2022-11-07 [facility], 1.2.840.1 [id number] 32594 Methodi 00:00:00 00:00:00 Monitoring Vida 28045.1.1 359 s t 3.430.2.7 Hospit a .3.541484 l .8 2022-11-07 2022-11-07 [facility], 1.2.840.1 [id number] 2100 051536 Methodi 00:00:00 00:00:00 Orders Nadim 90992.1.[address] 3.430.2.7 Hospit a .3.052380 l .8 2022-11-02 2022-11-02 [facility], 1.2.840.1 [id number] 06645 23116 Methodi 00:00:00 00:00:[address] 3.430.2.7 Hospit a .3.527201 l .8 2022-11-02 2022-11-02 Orders Melo, 1.2.840.1 [id number] 97667 Methodi 00:00:00 00:00:00 Only Imad 57242.1.[address] 3.430.2.7 Hospit a .3.133269 l .8 2022-11-02 2022-11-02 [facility], 1.2.840.1 [id number] 87447 Methodi 00:00:00 00:00:00 Monitoring Vida 31602.1.1 737 s t 3.430.2.7 Hospit a .3.031004 l .8 2022-10-16 2022-10-16 Transition PRABHAKAR Yeung 1.2.840.114 100 232810 Univers 00:00:00 00:00:00 of Binu HANDY 350.1.13.10 it y [place] [id number] [facility] [address] 2022-10-11 2022-10-13 Inpatient X JESSICA [facility] WILLOW [id number] Univers 08:56:00 16:29:00 TERRELL ity of [facility] 2022-10-11 2022-10-13 [facility] Betsy Salomon Willow [facility] 1.2.840.1 14 [id number] Univers 08:56:00 16:29:00 Encounter Terrell Lopez SAMM 350.1.13.10 ity [place] [id number] [facility] [address] 2022-10-11 2022-10-11 Telephone Melo, 1.2.840.1 [id number] 983 5731611 Methodi 00:00:00 00:00:[address] 3.430.2.7 Hospit a .3.853921 l .8 2022-10-10 2022-10-10 Office Practitione 1.2.840.1 [id number] 21 [id number] Methodi 13:00:00 14:17:44 [place] [address] Cardio [facility] 3.430.2.7 Hos chloe Sm 1901 .3.912035 l Nurse .8 2022-10-10 2022-10-10 Travel 1.2.840.1 1.2.242.652 4432 069351 Methodi 00:00:00 00:00:[address] 3.430.2.7 0.2.7.3.698 Ho spita .3.662180 084.8 l .8 2022-10-06 2022-10-06 (TEL) STLMLC STLMLC [id number] Co mmon 00:00:00 00:00:00 [facility] 2022-10-05 2022-10-05 Refill Peng, 1.2.840.1 [id number] 570226 0425 Methodi 00:00:00 00:00:[address] 3.430.2.7 Hospit a .3.908390 l .8 2022-10-05 2022-10-05 Telephone Peng, 1.2.840.1 [id number] 2100 037385 Methodi 00:00:00 00:00:[address] 3.430.2.7 Hospit a .3.525086 l .8 2022-10-05 2022-10-05 Remote Priscilla, 1.2.840.1 692751078 75846 02658 Methodi 00:00:00 00:00:00 Monitoring [place]ida 38664.1.1 108 s t 3.430.2.7 Hospit a .3.006487 l .8 2022-10-05 2022-10-05 Telephone Melo, 1.2.840.1 970390082 371 0478773 Methodi 00:00:00 00:00:[address] 3.430.2.7 Hospit a .3.378794 l .8 2022-10-03 2022-10-03 Travel 1.2.840.1 1.2.348.164 9820 652435 Methodi 00:00:00 00:00:[address] 3.430.2.7 0.2.7.3.698 Ho spita .3.311993 084.8 l .8 2022-09-22 2022-10-02 [facility], 1.2.840.1 [id number] 02315 37880 Methodi 14:27:00 20:38:00 Encounter Lucero 03393.1.[address] 3.430.2.7 Hospit a .3.268572 l .8 2022-09-28 2022-09-28 Surgery [facility], 1.2.840.1 [id number] 059 1433828 Methodi 11:00:00 12:10:[address] 3.430.2.7 Hospit a .3.518103 l .8 2022-09-22 2022-09-22 Emergency Salomon Meyer [facility] 1.2.840.114 99 187223 Univers 08:33:00 13:41:00 Willow QUIJANO 350.1.13.10 i ty [facility] 4.2.7.2.686 [facility] [id number] [facility] [address] 2022-09-22 2022-09-22 Emergency X BETSY, Salomon [facility] ERT [id number] Univers 08:33:00 13:41:00 ity of [facility] 2022-09-21 2022-09-21 Remote Semones, 1.2.840.1 250131310 01895 19788 Methodi 00:00:00 00:00:00 Monitoring Vida 61937.1.1 535 s t 3.430.2.7 Hospit a .3.322144 l .8 2022-09-20 2022-09-20 Telephone Jamison 1.2.840.1 [id number] 2 [id number] Methodi 00:00:00 00:00:[address] 3.430.2.7 Hospit a .3.635887 l .8 2022-09-20 2022-09-20 OFFICE [facility] [id number] Co mmon 00:00:00 00:00:00 VISIT Spirit ESTAB PT - [facility]I LEVEL [facility] 2022-09-14 2022-09-14 Telephone Peng, 1.2.840.1 [id number] 2100 413479 Methodi 00:00:00 00:00:[address] 3.430.2.7 Hospit a .3.784538 l .8 2022-09-05 2022-09-05 TelemedicMathew Omer 1.2.840.1 1040 97286 0855000264 Methodi 14:00:00 14:24:00 ne Kathy Pena 00347.1.[address] 3.430.2.7 Hospit a .3.408273 l .8 2022-08-31 2022-08-31 [facility] Chito, 1.2.840.1 [id number] 2100 032156 Methodi 00:00:00 00:00:00 Orders Rajan 63044.1.[address] 3.430.2.7 Hospit a .3.376376 l .8 2022-08-30 2022-08-30 Refill Jamison, 1.2.840.1 603537293 180 4793989 Methodi 00:00:00 00:00:[address] 3.430.2.7 Hospit a .3.531730 l .8 2022-08-24 2022-08-29 [facility] 1.2.840.1 [id number] 5837729714 Methodi 16:57:00 14:10:00 Encounter Reed Lucero 95080.1.[address] 3.430.2.7 Hospit a .3.540803 l .8 2022-08-25 2022-08-25 Telephone Germán, 1.2.840.1 [id number] 2100 769840 Methodi 00:00:00 00:00:[address] 3.430.2.7 Hospit a .3.209057 l .8 2022-08-24 2022-08-24 Documentat Reed, 1.2.840.1 [id number] 364 5746822 Methodi 00:00:00 00:00:00 ion Lucero 97933.1.[address] 3.430.2.7 Hospit a .3.763154 l .8 2022-08-24 2022-08-24 Telephone Jamison, 1.2.840.1 [id number] 2 [id number] Methodi 00:00:00 00:00:[address] 3.430.2.7 Hospit a .3.973759 l .8 2022-08-24 2022-08-24 Remote [facility], 1.2.840.1 193853121 02824 67336 Methodi 00:00:00 00:00:00 Monitoring Vida 45879.1.1 672 s t 3.430.2.7 Hospit a .3.290094 l .8 2022-08-16 2022-08-16 Refill Jamison, 1.2.840.1 530857735 643 2610605 Methodi 00:00:00 00:00:[address] 3.430.2.7 Hospit a .3.133927 l .8 2022-08-15 2022-08-15 Refill Peng, 1.2.840.1 528225156 128338 5065 Methodi 00:00:00 00:00:[address] 3.430.2.7 Hospit a .3.812040 l .8 2022-08-14 2022-08-14 Telephone Richi, 1.2.840.1 869372751 002 2835251 Methodi 00:00:00 00:00:[address] Alejandra 3.430.2.7 Hospit a .3.011396 l .8 2022-07-31 2022-07-31 Telemedici Mathew Mascorro 1.2.840.1 1040 86956 4856612100 Methodi 09:00:00 09:17:06 Mariam Loomis 16208.1.[address] 3.430.2.7 Hospit a .3.618397 l .8 2022-07-17 2022-07-25 [facility] 1.2.840.1 875908613 0085477902 Methodi 08:54:00 12:45:00 Lucero Ireland 91803.1.[address] 3.430.2.7 Hospit a .3.973124 l .8 2022-07-24 2022-07-24 Surgery Melo, 1.2.840.1 696113950 16794 09553 Methodi 14:00:00 15:40:[address] 3.430.2.7 Hospit a .3.434459 l .8 2022-07-18 2022-07-18 Surgery Jessica, 1.2.840.1 156316434 336853 5573 Methodi 15:00:00 16:10:[address] 3.430.2.7 Hospit a .3.230427 l .8 2022-07-17 2022-07-17 Travel 1.2.840.1 1.2.398.303 3283 452377 Methodi 00:00:00 00:00:[address] 3.430.2.7 0.2.7.3.698 Ho spita .3.159385 084.8 l .8 2022-07-14 2022-07-14 Telephone Jamison, 1.2.840.1 233465160 2 [id number] Methodi 00:00:00 00:00:[address] 3.430.2.7 Hospit a .3.701302 l .8 2022-07-12 2022-07-12 Lab Melo, 1.2.840.1 184950155 23130 44061 Methodi 16:30:00 16:35:[address] 3.430.2.7 Hospit a .3.200211 l .8 2022-07-12 2022-07-12 Office Melo, 1.2.840.1 894562416 45045 15489 Methodi 14:40:00 15:48:54 Visit Imad 86719.1.[address] 3.430.2.7 Hospit a .3.490893 l .8 2022-07-12 2022-07-12 Travel 1.2.840.1 1.2.182.020 9383 777465 Methodi 00:00:00 00:00:[address] 3.430.2.7 0.2.7.3.698 Ho spita .3.361005 084.8 l .8 2022-07-12 2022-07-12 Refill Melo, 1.2.840.1 897491979 19125 21766 Methodi 00:00:00 00:00:[address] 3.430.2.7 Hospit a .3.354083 l .8 2022-06-25 2022-06-25 Refill Melo, 1.2.840.1 288172400 98152 58997 Methodi 00:00:00 00:00:[address] 3.430.2.7 Hospit a .3.419504 l .8 2022-06-14 2022-06-14 Office Inessa, 1.2.840.1 373114648 753462 0092 Methodi 09:20:00 09:37:21 Visit Troy 96942.1.1 344 s t Raj 3.430.2.7 Hospi ta .3.800028 l .8 2022-06-14 2022-06-[address] [facility] [id number] 369 Dorothy 00:00:00 00:00:00 TROY [address] 2022-06-14 2022-06-14 Travel 1.2.840.1 1.2.179.992 7556 535790 Methodi 00:00:00 00:00:[address] 3.430.2.7 0.2.7.3.698 Ho spita .3.919736 084.8 l .8 2022-06-07 2022-06-07 [facility] 1.2.840.1 620373481 510661 3309 Methodi 00:00:00 00:00:00 Only Jasiel 55555.1.[address] 3.430.2.7 Hospit a .3.041504 l .8 2022-05-01 2022-05-01 Telephone Toyin 1.2.840.1 782992667 4778013651 Methodi 00:00:00 00:00:00 , Val 89352.1.[address] 3.430.2.7 Hospit a .3.419404 l .8 2022-04-27 2022-04-27 [facility], 1.2.840.1 687651341 10631 71061 Methodi 07:22:00 18:18:00 Encounter Blacka 38783.1.[address] Raj 3.430.2.7 Hospi ta .3.999417 l .8 2022-04-27 2022-04-27 Anesthesia Angely Naidu L. 1.2.840.1 636166450 4379389163 Methodi 11:45:00 14:05:00 Event Danalvin Rae Irma 73560.1.[address] 3.430.2.7 Hospit a .3.542144 l .8 2022-04-27 2022-04-[address] [facility], 1.2.840.1 [id number] 488792 5187 Methodi 11:00:00 13:35:00 Charudatta 76731.1.1 991 s t Raj 3.430.2.7 Hospi ta .3.693366 l .8 2022-04-27 2022-04-27 Travel 1.2.840.1 1.2.538.011 3378 320749 Methodi 00:00:00 00:00:[address] 3.430.2.7 0.2.7.3.698 Ho spita .3.312377 084.8 l .8 2022-04-24 2022-04-24 Pre-Admiss [facility], 1.2.840.1 [id number] 220 0545246 Methodi 08:10:00 09:10:00 ion Blacka 69912.1.1 741 s t Testing Raj 3.430.2.7 Hospi ta .3.605310 l .8 2022-04-24 2022-04-24 Travel 1.2.840.1 1.2.989.956 7235 951536 Methodi 00:00:00 00:00:[address] 3.430.2.7 0.2.7.3.698 Ho spita .3.298302 084.8 l .8 2022-04-15 2022-04-15 Refill Melo, 1.2.840.1 725683095 24456 01843 Methodi 00:00:00 00:00:[address] 3.430.2.7 Hospit a .3.137215 l .8 2022-04-11 2022-04-11 Prep for Deysi, 1.2.840.1 032037718 21 10520945 Methodi 00:00:00 00:00:00 Surgery Melba 52480.1.[address] 3.430.2.7 Hospit a .3.501243 l .8 2022-04-10 2022-04-10 Telephone Deysi, 1.2.840.1 221017930 2 [id number] Methodi 00:00:00 00:00:[address] 3.430.2.7 Hospit a .3.699460 l .8 2022-03-28 2022-03-[address] [facility], 1.2.840.1 216872957 2 [id number] Methodi 12:26:46 23:59:00 Encounter Kinan 53581.1.[address] Sebas 3.430.2.7 Hospit a .3.781174 l .8 2022-03-28 2022-03-[address] [facility], 1.2.840.1 [id number] 2 972771830 Methodi 12:15:00 12:25:00 Encounter Kinan 79221.1.[address] Sebas 3.430.2.7 Hospit a .3.962976 l .8 2022-03-28 2022-03-28 [facility], 1.2.840.1 [id number] 83219 33796 Methodi 11:23:57 12:14:00 Encounter Charudatta 42269.1.[address] Raj 3.430.2.7 Hospi ta .3.828049 l .8 2022-03-28 2022-03-28 Travel 1.2.840.1 1.2.094.037 6543 547255 Methodi 00:00:00 00:00:[address] 3.430.2.7 0.2.7.3.698 Ho spita .3.802921 084.8 l .8 2022-03-24 2022-03-[address] [facility], 1.2.840.1 [id number] 2100 156616 Methodi 00:00:00 00:00:00 Charudatta 50524.1.1 140 s t Raj 3.430.2.7 Hospi ta .3.034494 l .8 2022-03-22 2022-03-22 Telephone [facility], 1.2.840.1 [id number] 2 [id number] Methodi 00:00:00 00:00:[address] 3.430.2.7 Hospit a .3.163642 l .8 2022-03-21 2022-03-21 [facility] 1.[facility].840[facility] [id number] 2 [id number] Methodi 00:00:00 00:00:[address] 3.430.2.7 Hospit a .3.032895 l .8 2022-03-17 2022-03-17 [facility], 1.2.840.1 [id number] 2 [id number] Methodi 00:00:00 00:00:[address] 3.430.2.7 Hospit a .3.475432 l .8 2022-03-15 2022-03-15 [facility] 1.[facility].840.1 [id number] 0315 Methodi 09:50:00 14:07:55 Visit Charudatta 82399.1.1 676 s t Raj 3.430.2.7 Hospi ta .3.210639 l .8 2022-03-15 2022-03-15 Lab Inessa, 1.2.840.1 [id number] 623103 3398 Methodi 11:45:00 11:50:00 Charfideltta 48048.1.1 997 s t Raj 3.430.2.7 Hospi ta .3.178289 l .8 2022-03-15 2022-03-15 Travel 1.2.840.1 1.2.238.356 9972 862367 Methodi 00:00:00 00:00:[address] 3.430.2.7 0.2.7.3.698 Ho spita .3.537240 084.8 l .8 2022-03-09 2022-03-09 (TEL) STLMLC STLMLC 6906861 Co mmon 00:00:00 00:00:00 [facility] 2022-03-08 2022-03-08 Office Melo, 1.2.840.1 [id number] 13322 22161 Methodi 13:00:00 13:44:41 Visit Imad 85956.1.[address] 3.430.2.7 Hospit a .3.289275 l .8 2022-03-08 2022-03-08 Telephone Deysi, 1.2.840.1 [id number] 2 [id number] Methodi 00:00:00 00:00:[address] 3.430.2.7 Hospit a .3.333116 l .8 2022-03-08 2022-03-08 Travel 1.2.840.1 1.2.595.338 7269 973418 Methodi 00:00:00 00:00:[address] 3.430.2.7 0.2.7.3.698 Ho spita .3.233017 084.8 l .8 2022-03-08 2022-03-08 Refill Melo, 1.2.840.1 [id number] 69179 82406 Methodi 00:00:00 00:00:[address] 3.430.2.7 Hospit a .3.294527 l .8 2022-03-03 2022-03-03 (TEL) STLMLC STLMLC 8503967 Co mmon 00:00:00 00:00:00 Spirit [facility] 2022-02-28 2022-02-28 SUB ANNUAL STLMLC STLMLC [id number] Common 00:00:00 00:00:00 MCR Spirit WELLNESS - [facility] 2022-02-28 2022-02-28 OFFICE STLC STLC 5468200 Co mmon 00:00:00 00:00:00 VISIT EST Spir it PT LEVEL 3 - [facility] 2022-02-25 2022-02-25 Refill Melo, 1.2.840.1 [id number] 95325 04739 Methodi 00:00:00 00:00:[address] 3.430.2.7 Hospit a .3.368589 l .8 2022-02-03 2022-02-03 Office Tom, 1.2.840.1 [id number] 778003 8259 Methodi 13:30:00 13:44:02 Visit Sera AdalgisaMatteo 71487.1.[address] 3.430.2.7 Hospit a .3.412646 l .8 2022-01-30 2022-01-30 Refill Melo, 1.2.840.1 [id number] 52729 13845 Methodi 00:00:00 00:00:[address] 3.430.2.7 Hospit a .3.665380 l .8 2022-01-09 2022-01-09 Refill Melo, 1.2.840.1 531810192 92165 26943 Methodi 00:00:00 00:00:[address] 3.430.2.7 Hospit a .3.711563 l .8 2021-12-19 2021-12-19 Telephone Darci, 1.2.840.1 [id number] 2100 632293 Methodi 00:00:00 00:00:00 Spenceria D [address]492.1.[address] 3.430.2.7 Hospit a .3.147476 l .8 2021-11-07 2021-11-07 Orders Penpatricialorida 1.2.840.1 631810103 40541486 Methodi 00:00:00 00:00:00 Only , [place] 14819.1.[address] 3.430.2.7 Hospit a .3.404015 l .8 2021-10-31 2021-10-31 Telephone Inessa, 1.2.840.1 [id number] 2099 877231 Methodi 00:00:00 00:00:00 Charudatta 79467.1.1 047 s t Raj 3.430.2.7 Hospi ta .3.151553 l .8 2021-10-27 2021-10-27 OFFICE STLC STLMLC 6249412 Co mmon 00:00:00 00:00:00 VISIT Spirit ESTAB PT - [facility] LEVEL [facility] 2021-09-21 2021-10-18 Office Melo, 1.2.840.1 [id number] 89023 18083 Methodi 14:00:00 11:36:09 Visit Imad 80304.1.[address] 3.430.2.7 Hospit a .3.004791 l .8 2021-10-14 2021-10-14 Orders Melo, 1.2.840.1 [id number] 03274 06017 Methodi 00:00:00 00:00:00 Only Imad 95523.1.[address] 3.430.2.7 Hospit a .3.442829 l .8 2021-10-13 2021-10-13 Hospital [facility], 1.2.840.1 [id number] 2100 509223 Methodi 07:51:25 23:59:00 Encounter Imad 70340.1.[address] 3.430.2.7 Hospit a .3.400805 l .8 2021-10-13 2021-10-13 [facility], 1.2.840.1 [id number] 2099 280274 Methodi 07:51:13 23:59:00 Encounter Imad 79908.1.[address] 3.430.2.7 Hospit a .3.842711 l .8 2021-10-13 2021-10-13 [facility], 1.2.840.1 [id number] 2099 526185 Methodi 06:46:08 07:50:00 Encounter Imad 73931.1.[address] 3.430.2.7 Hospit a .3.537395 l .8 2021-10-13 2021-10-13 Travel 1.2.840.1 1.2.041.533 2875 796792 Methodi 00:00:00 00:00:[address] 3.430.2.7 0.2.7.3.698 Ho spita .3.524628 084.8 l .8 2021-09-23 2021-09-23 Travel 1.2.840.1 1.2.638.557 5780 102464 Methodi 00:00:00 00:00:[address] 3.430.2.7 0.2.7.3.698 Ho spita .3.532872 084.8 l .8 2021-09-21 2021-09-21 Travel 1.2.840.1 1.2.107.746 5131 355018 Methodi 00:00:00 00:00:[address] 3.430.2.7 0.2.7.3.698 Ho spita .3.424258 084.8 l .8 2021-09-05 2021-09-05 [facility], 1.2.840.1 [id number] 35236 06522 Methodi 00:00:00 00:00:[address] 3.430.2.7 Hospit a .3.670029 l .8 2021-08-30 2021-08-30 OFFICE [facility] [id number] Co mmon 00:00:00 00:00:00 VISIT EST Spir it PT LEVEL 3 - [facility] 2021-08-30 2021-08-30 SUB ANNUAL [facility] [id number] Common 00:00:00 00:00:00 MCR Spirit WELLNESS - [facility] 2021-08-25 2021-08-25 Refill Melo, 1.2.840.1 [id number] Methodi 00:00:00 00:00:[address] 3.430.2.7 Hospit a .3.453776 l .8 2021-08-04 2021-08-04 Orders Melo, 1.2.840.1 [id number] Methodi 00:00:00 00:00:00 Only Imad [address]263.1.[address] 3.430.2.7 Hospit a .3.065405 l .8 2021-06-20 2021-06-20 Refill Iammarino, 1.2.840.1 [id number] Methodi 00:00:00 00:00:[address] 3.430.2.7 Hospit a .3.878657 l .8 2021-06-20 2021-06-20 Refill Iammarino, 1.2.840.1 [id number] Methodi 00:00:00 00:00:[address] 3.430.2.7 Hospit a .3.141026 l .8 2021-06-20 2021-06-20 Orders Melo, 1.2.840.1 [id number] Methodi 00:00:00 00:00:00 Only Imad 11629.1.[address] 3.430.2.7 Hospit a .3.550304 l .8 2021-06-062021-06-06 OFFICE [facility] [id number] Co mmon 00:00:00 00:00:00 VISIT EST Spir it PT LEVEL 3 - [facility] 2021-05-11 2021-05-11 Outpatient MELO, [facility] [id number] Dorothy 00:00:00 00:00:00 IMAD 274 Method i 2021-05-03 2021-05-03 OFFICE [facility] [id number] Co mmon 00:00:00 00:00:00 VISIT EST Spir it PT LEVEL 3 - [facility] 2021-04-13 2021-04-13 Outpatient MELO [facility] [id number] Dorothy 00:00:00 00:00:00 IMAD 001 Method i 2021-04-13 2021-04-13 Outpatient MELO, [facility] [id number] Dorothy 00:00:00 00:00:00 IMAD 874 Method i 2021-04-02 2021-04-02 (TEL) [facility]C [facility] [id number] Co mmon 00:00:00 00:00:00 [facility] 2021-03-29 2021-03-29 (TEL) STLMLC [facility] [id number] Co mmon 00:00:00 00:00:00 [facility] 2021-03-24 2021-03-24 Outpatient [facility] [id number] Dorothy 00:00:00 00:00:00 411 Method i 2021-03-24 2021-03-24 (TEL) STLMLC [facility] [id number] Co mmon 00:00:00 00:00:00 [facility] 2021-03-24 2021-03-24 (TEL) STLMLC STL[facility] [id number] Co mmon 00:00:00 00:00:00 [facility] 2021-03-16 2021-03-21 Inpatient LESIAHVA, [facility] 064 [id number] Dorothy 00:00:00 00:00:00 ASMA 608 Method i 2021-03-17 2021-03-17 EXT [facility] OP Antoni, EXT MSRDP 1.2.840.114 1 [id number] [place] 00:00:00 00:00:00 Brandt Gao LOCATION 350.1.13.58 Health 9.2.7.2.686 [id number] 0 2021-03-17 2021-03-17 EXT [facility] OP Antoni, EXT MSRDP 1.2.840.114 1 [id number] [place] 00:00:00 00:00:00 Brandt Gao LOCATION 350.1.13.58 Health 9.2.7.2.686 [id number] 0 2021-03-04 2021-03-04 Office Ty, [facility] 1.2.753.575 [id number] 13:35:44 14:05:44 Visit Nicholette SUGAR 350.1.13.58 LAND 9.2.7.2.686 [id number] 1 2021-03-04 2021-03-04 Office Ty, [facility] 1.2.948.820 [id number] [place] 13:35:44 14:05:44 Visit Nicholette SUGAR 350.1.13.58 Health LAND 9.2.7.2.686 [id number] 1 2021-03-02 2021-03-02 Outpatient MELO, [facility] [id number] Dorothy 00:00:00 00:00:00 IMAD [address] 2021-02-02 2021-02-02 Office Manjarrez, [facility] 1.2.622.753 [id number] 44073 13:52:06 14:20:28 Visit Salvador SUGAR 350.1.13.58 LAND 9.2.7.2.686 [id number] 1 2021-02-02 2021-02-02 Office Manjarrez, [facility] 1.2.596.286 [id number] [place] 13:52:06 14:20:28 Visit Salvador SUGAR 350.1.13.58 alth LAND 9.2.7.2.686 [id number] 1 2021-01-31 2021-01-31 Outpatient TOM, [facility] [id number] Dorothy 00:00:00 00:00:00 SERA [address] 2021-01-20 2021-01-20 Outpatient MANJARREZ, [facility] [facility] 12:07:00 17:40:00 SALVADOR 2021-01-20 2021-01-20 [facility] [id number] [place] 13:00:00 13:00:00 t; SALVADOR MANJARREZ, - Sugar Phys ici Paige FRANCO 1 ans M.D. 2021-01-14 2021-01-14 Outpatient STLMLC ST[facility] [id number] Common 00:00:00 00:00:00 [facility] 2021-01-13 2021-01-13 Outpatient STLMLC ST[facility] [id number] Common 00:00:00 00:00:00 [facility] 2021-01-03 2021-01-03 Outpatient STLMLC ST[facility]C [id number] Common 00:00:00 00:00:00 [facility] 2020-12-30 2020-12-30 BILL[facility] [id number] [place] 09:30:00 09:30:00 t; SALVADOR MANJARREZ, - Sugar Phys ici Paige FRANCO 1 ans M.D. 2020-12-21 2020-12-21 [facility] [id number] [address] [place] [address] 00:00:00 00:00:00 SALVADOR 975 Method i 2020-12-21 2020-12-21 Outpatient [facility] [id number] [address] [place] [address] 00:00:00 00:00:00 NADIM 340 Method i 2020-12-21 2020-12-21 [facility] [id number] [address] [place] [address] 00:00:00 00:00:00 SALVADOR 274 Method i 2020-12-21 2020-12-21 Outpatient [facility] [id number] [place] [address] 00:00:00 00:00:00 NADIM 845 Method i 2020-12-21 2020-12-21 Outpatient STLMLC ST[facility] [id number] Common 00:00:00 00:00:00 [facility] 2020-10-07 2020-10-07 Gerald MANJARREZ [facility] Orthopedics [id number] [place] 09:30:00 09:30:00 tSALVADOR BATEMAN, - Sugar Phys ici Paige FRANCO [facility] 1 ans MDamien 2020-09-23 2020-09-23 [facility]patient [facility] [id number] Common 00:00:00 00:00:00 Spirit - [facility] 2020-08-04 2020-08-04 Outpatient MELO, [facility] [id number] Dorothy 00:00:00 00:00:00 IMAD 667 Method i 2020-06-03 2020-06-03 Out[facility] [id number] Common 09:00:00 09:00:00 t Specialty/U Sp mari Specialty rology [facility] 2020-05-06 2020-05-06 Outpatient BOB, [facility] [id number] 360 Dorothy 00:00:00 00:00:00 JW 039 Method i 2020-04-28 2020-04-28 Outpatient MELO, [facility] [id number] Dorothy 00:00:00 00:00:00 IMAD 297 Method i 2020-03-31 2020-03-31 Outpatient MELO, [facility] [id number] Dorothy 00:00:00 00:00:00 IMAD 115 Method i 2020-03-31 2020-03-31 Outpatient MELO, [facility] [id number] 7979 Dorothy 00:00:00 00:00:00 IMAD 016 Method i 2020-03-23 2020-03-23 Out[facility] [id number] Common 08:20:00 08:20:00 t [facility]ers [facility] it Drive [facility] Medicine [facility] 2020-03-17 2020-03-17 Outpatient MELO, [facility] [id number] Dorothy 00:00:00 00:00:00 IMAD 613 Method i 2020-03-17 2020-03-17 Outpatient MELO, [facility] [id number] 5014 Dorothy 00:00:00 00:00:00 IMAD 586 Method i 2020-03-08 2020-03-08 Outpatient [facility] [id number] Common 10:55:00 10:55:[address] Sp[address] [facility] 2020-02-20 2020-02-20 Outpatient MELO, [facility] [id number] Dorothy 00:00:00 00:00:00 IMAD [address] 2020-02-19 2020-02-19 Outpatient MELO, [facility] 021 [id number] Dorothy 00:00:00 00:00:00 IMAD [address] 2020-01-30 2020-01-30 Outpatient TOM, [facility] [id number] 533 Dorothy 00:00:00 00:00:00 SERA [address] 2020-01-28 2020-01-29 Outpatient MELO, [facility] [id number] Dorothy 00:00:00 00:00:00 IMAD [address] 2019-12-03 2019-12-03 Out[facility] [id number] Common 11:15:00 11:15:[address] [facility] 2019-06-12 2019-06-12 Outpatient [facility] 27 [id number] Common 15:20:00 15:20:[address] [facility] 2018-12-27 2018-12-27 Outpatient [facility] [id number] Common 13:00:00 13:00:[address] [facility] 2018-12-17 2018-12-17 Outpatient [facility] [id number] Common 11:09:00 11:09:[address] [facility] 2018-12-01 2018-12-01 Outpatient [facility] 24 [id number] Common 21:22:00 21:22:[address] [facility] 2018-10-28 2018-10-28 Outpatient [facility] 24 [id number] Common 15:53:00 15:53:[address] [facility] 2018-09-26 2018-09-26 Outpatient [facility] 22 [id number] Common 10:45:00 10:45:[address] [facility] 2018-08-05 2018-08-05 Outpatient Lucia Topete 13 [id number] Common 08:30:00 08:30:[address] [facility] 2018-05-06 2018-05-06 Outpatient Lucia Topete 15 [id number] Common 09:15:00 09:15:[address] Sp[address] [facility] Results Test Description Test Time Test Comments Results Result Comments Source HEPATIC FUNCTION PANEL 2023-01-07 05:54:45 Test Item Value Reference Range Interpretation Comme nts TOTAL PROTEIN (BEAKER) (test code = 770) 5.4 gm/dL 6.0-8.3 L ALBUMIN (BEAKER) (test code = 1145) 2.5 g/dL 3.5-5.0 L BILIRUBIN TOTAL (BEAKER) (test code = 377) 1.4 mg/dL 0.2-1.2 H BILIRUBIN DIRECT (BEAKER) (test code = 706) 0.8 mg/dL 0.1-0.5 H ALKALINE PHOSPHATASE (BEAKER) (test code = 346) 82 U/L 40-150 AST (SGOT) (BEAKER) (test code = 353) 38 U/L 5-34 H ALT (SGPT) (BEAKER) (test code = 347) 26 U/L 6-55 Wireworker Supervisor ID - CYNTHIA GBASIC METABOLIC [id number] 05:54:44 Test Item Value Reference Range Interpretation Comments SODIUM (BEAKER) 131 meq/L 136-145 L (test code = 381) POTASSIUM 3.1 meq/L 3.5-5.1 L (BEAKER) (test code = 379) CHLORIDE (BEAKER) 91 meq/L 98-107 L (test code = 382) CO2 (BEAKER) 30 meq/L 22-29 H (test code = 355) BLOOD UREA 61 mg/dL 7-21 H NITROGEN (BEAKER) (test code = 354) CREATININE 2.04 mg/dL 0.57-1.25 H (BEAKER) (test code = 358) GLUCOSE RANDOM 81 mg/dL 70-105 (BEAKER) (test code = 652) CALCIUM (BEAKER) 8.6 mg/dL 8.4-10.2 (test code = 697) EGFR (BEAKER) 34 Interpretatio n of eGFR (test code = mL/min/1.73 values Stage De scription 1092) sq m Result G1 Hillary l or high >=90 G2 Mildly decreased 60-89 G3a Mildl y to moderately 45-5 9 G3b Moderately to s everely 30-44 G4 Severl y decreased 15-29 G5 Kidney failure <15Reported eGF R is based on the CKD-EPI 2020 equation that d oes not use a race coefficientEsti mated GFR is not as accur ate as Creatinine Siobhan rob in predicting glom erular filtration rate . Estimated GFR is not appl icable for dialysis patien ts Wireworker Supervisor ID - CYNTHIA [id number] 05:54:44 Test Item Value Reference Range Interpretation Comments MAGNESIUM (BEAKER) (test code = 1.8 mg/dL 1.6-2.6 627) Wireworker Supervisor ID - CYNTHIA [id number] 05:54:44 Test Item Value Reference Range Interpretation Comments PHOSPHORUS (BEAKER) (test code = 5.0 mg/dL 2.3-4.7 H 604) Wireworker Supervisor ID - CYNTHIA GCBC W/PLT COUNT & AUTO [id number] 05:14:47 Test Item Value Reference Range Interpretation Comments WHITE BLOOD CELL COUNT (BEAKER) 8.1 K/ L 3.5-10.5 (test code = 775) RED BLOOD CELL COUNT (BEAKER) 2.78 M/ L 4.63-6.08 L (test code = 761) HEMOGLOBIN (BEAKER) (test code = 7.9 GM/DL 13.7-17.5 L 410) HEMATOCRIT (BEAKER) (test code = 25.5 % 40.1-51.0 L 411) MEAN CORPUSCULAR VOLUME (BEAKER) 92 fL 79-92 (test code = 753) MEAN CORPUSCULAR HEMOGLOBIN 28.4 pg 25.7-32.2 (BEAKER) (test code = 751) MEAN CORPUSCULAR HEMOGLOBIN CONC 31.0 GM/DL 32.3-36.5 L (BEAKER) (test code = 752) RED CELL DISTRIBUTION WIDTH 24.6 % 11.6-14.4 H (BEAKER) (test code = 412) PLATELET COUNT (BEAKER) (test 283 K/CU MM 150-450 code = 756) MEAN PLATELET VOLUME (BEAKER) 9.0 fL 9.4-12.4 L (test code = 754) NUCLEATED RED BLOOD CELLS 1 /100 WBC 0-0 H (BEAKER) (test code = 413) NEUTROPHILS RELATIVE PERCENT 71 % (BEAKER) (test code = 429) LYMPHOCYTES RELATIVE PERCENT 17 % (BEAKER) (test code = 430) MONOCYTES RELATIVE PERCENT 7 % (BEAKER) (test code = 431) EOSINOPHILS RELATIVE PERCENT 4 % (BEAKER) (test code = 432) BASOPHILS RELATIVE PERCENT 1 % (BEAKER) (test code = 437) NEUTROPHILS ABSOLUTE COUNT 5.70 K/ L 1.78-5.38 H (BEAKER) (test code = 670) LYMPHOCYTES ABSOLUTE COUNT 1.33 K/ L 1.32-3.57 (BEAKER) (test code = 414) MONOCYTES ABSOLUTE COUNT (BEAKER) 0.54 K/ L 0.30-0.82 (test code = 415) EOSINOPHILS ABSOLUTE COUNT 0.31 K/ L 0.04-0.54 (BEAKER) (test code = 416) BASOPHILS ABSOLUTE COUNT (BEAKER) 0.04 K/ L 0.01-0.08 (test code = 417) IMMATURE GRANULOCYTES-RELATIVE 1.90 % 0.00-1.00 H PERCENT (BEAKER) (test code = 2801) PH, [id number] 05:06:20 Test Item Value Reference Range Interpretation Comments PH VENOUS (BEAKER) (test code = 701) 7.45 7.32-7.42 H POC-Glucose [id number] 12:36:55 Test Item Value Reference Range Interpretation Comments POC-Glucose Meter (test 116 mg/dL 70-110 H : TE STED AT [facility] code = 1538) [address] [facility] [place], [address]: Wireworker Supervisor/Techni josafat ID = [id number] for LavonfrannyMarilou Lab Interpretation (test Abnormal code = 29807-5) [facility] [id number] 12:36:55 Test Item Value Reference Range Interpretation Comments POC-GLUCOSE METER 116 mg/dL 70-110 H : TESTED A T [facility] 6720 (BEAKER) (test code = DOUGLAS Peña [place], 1538) [address]: Wireworker Supervisor/Techni ojsafat ID = [id number] for Marilou Taylor POCT-GLUCOSE [id number] 06:46:24 Test Item Value Reference Range Interpretation Comments POC-GLUCOSE METER 121 mg/dL 70-110 H : TESTED A T [facility] 6720 (BEAKER) (test code = DOUGLAS Peña [facility], 1538) [address]: Wireworker Supervisor/Techni josafat ID = [id number] for Zoie Matos [id number] 05:25:59 Test Item Value Reference Range Interpretation Comments PHOSPHORUS (BEAKER) (test code = 4.6 mg/dL 2.3-4.7 604) Wireworker Supervisor ID - ADMINBASIC METABOLIC [id number] 05:25:58 Test Item Value Reference Range Interpretation Comments SODIUM (BEAKER) 127 meq/L 136-145 L (test code = 381) POTASSIUM 3.6 meq/L 3.5-5.1 (BEAKER) (test code = 379) CHLORIDE (BEAKER) 88 meq/L 98-107 L (test code = 382) CO2 (BEAKER) 29 meq/L 22-29 (test code = 355) BLOOD UREA 59 mg/dL 7-21 H NITROGEN (BEAKER) (test code = 354) CREATININE 2.22 mg/dL 0.57-1.25 H (BEAKER) (test code = 358) GLUCOSE RANDOM 140 mg/dL 70-105 H (BEAKER) (test code = 652) CALCIUM (BEAKER) 8.2 mg/dL 8.4-10.2 L (test code = 697) EGFR (BEAKER) 31 Interpretatio n of eGFR (test code = mL/min/1.73 values Stage De scription 1092) sq m Result G1 Hillary l or high >=90 G2 Mildly decreased 60-89 G3a Mildl y to moderately 45-5 9 G3b Moderately to s everely 30-44 G4 Severl y decreased 15-29 G5 Kidney failure <15Reported eGF R is based on the CKD-EPI 2020 equation that d oes not use a race coefficientEsti mated GFR is not as accur ate as Creatinine Siobhan rob in predicting glom erular filtration rate . Estimated GFR is not appl icable for dialysis patien ts Wireworker Supervisor ID - [id number] 05:25:58 Test Item Value Reference Range Interpretation Comments MAGNESIUM (BEAKER) (test code = 2.0 mg/dL 1.6-2.6 627) Wireworker Supervisor ID - ADMINCBC W/PLT COUNT & AUTO [id number] 04:46:45 Test Item Value Reference Range Interpretation Comments WHITE BLOOD CELL COUNT (BEAKER) 9.5 K/ L 3.5-10.5 (test code = 775) RED BLOOD CELL COUNT (BEAKER) 2.78 M/ L 4.63-6.08 L (test code = 761) HEMOGLOBIN (BEAKER) (test code = 7.9 GM/DL 13.7-17.5 L 410) HEMATOCRIT (BEAKER) (test code = 25.3 % 40.1-51.0 L 411) MEAN CORPUSCULAR VOLUME (BEAKER) 91 fL 79-92 (test code = 753) MEAN CORPUSCULAR HEMOGLOBIN 28.4 pg 25.7-32.2 (BEAKER) (test code = 751) MEAN CORPUSCULAR HEMOGLOBIN CONC 31.2 GM/DL 32.3-36.5 L (BEAKER) (test code = 752) RED CELL DISTRIBUTION WIDTH 24.9 % 11.6-14.4 H (BEAKER) (test code = 412) PLATELET COUNT (BEAKER) (test 272 K/CU MM 150-450 code = 756) MEAN PLATELET VOLUME (BEAKER) 9.0 fL 9.4-12.4 L (test code = 754) NUCLEATED RED BLOOD CELLS 1 /100 WBC 0-0 H (BEAKER) (test code = 413) NEUTROPHILS RELATIVE PERCENT 76 % (BEAKER) (test code = 429) LYMPHOCYTES RELATIVE PERCENT 13 % (BEAKER) (test code = 430) MONOCYTES RELATIVE PERCENT 7 % (BEAKER) (test code = 431) EOSINOPHILS RELATIVE PERCENT 2 % (BEAKER) (test code = 432) BASOPHILS RELATIVE PERCENT 1 % (BEAKER) (test code = 437) NEUTROPHILS ABSOLUTE COUNT 7.24 K/ L 1.78-5.38 H (BEAKER) (test code = 670) LYMPHOCYTES ABSOLUTE COUNT 1.23 K/ L 1.32-3.57 L (BEAKER) (test code = 414) MONOCYTES ABSOLUTE COUNT (BEAKER) 0.64 K/ L 0.30-0.82 (test code = 415) EOSINOPHILS ABSOLUTE COUNT 0.17 K/ L 0.04-0.54 (BEAKER) (test code = 416) BASOPHILS ABSOLUTE COUNT (BEAKER) 0.05 K/ L 0.01-0.08 (test code = 417) IMMATURE GRANULOCYTES-RELATIVE 1.50 % 0.00-1.00 H PERCENT (BEAKER) (test code = 2801) PH, [id number] 04:45:25 Test Item Value Reference Range Interpretation Comments PH VENOUS (BEAKER) (test code = 701) 7.45 7.32-7.42 H POCT-GLUCOSE [id number] 20:59:08 Test Item Value Reference Range Interpretation Comments POC-GLUCOSE METER 120 mg/dL 70-110 H : TESTED A T [facility] 6720 (BEAKER) (test code = [facility], 1538) [address]: Wireworker Supervisor/Techni josafat ID = [id number] for Zoie Matos POCT-GLUCOSE [id number] 16:32:37 Test Item Value Reference Range Interpretation Comments POC-GLUCOSE METER 233 mg/dL 70-110 H : TESTED A T [facility] 6720 (BEAKER) (test code = [facility], 1538) [address]: Wireworker Supervisor/Techni josafat ID = [id number] for CO RTEZ, RADHA BASIC METABOLIC [id number] 16:23:22 Test Item Value Reference Range Interpretation Comments SODIUM (BEAKER) 127 meq/L 136-145 L (test code = 381) POTASSIUM 5.0 meq/L 3.5-5.1 (BEAKER) (test code = 379) CHLORIDE (BEAKER) 90 meq/L 98-107 L (test code = 382) CO2 (BEAKER) 28 meq/L 22-29 (test code = 355) BLOOD UREA 60 mg/dL 7-21 H NITROGEN (BEAKER) (test code = 354) CREATININE 2.33 mg/dL 0.57-1.25 H (BEAKER) (test code = 358) GLUCOSE RANDOM 229 mg/dL 70-105 H (BEAKER) (test code = 652) CALCIUM (BEAKER) 8.5 mg/dL 8.4-10.2 (test code = 697) EGFR (BEAKER) 29 Interpretatio n of eGFR (test code = mL/min/1.73 values Stage De scription 1092) sq m Result G1 Hillary l or high >=90 G2 Mildly decreased 60-89 G3a Mildl y to moderately 45-5 9 G3b Moderately to s everely 30-44 G4 Severl y decreased 15-29 G5 Kidney failure <15Reported eGF R is based on the CKD-EPI 2020 equation that d oes not use a race coefficientEsti mated GFR is not as accur ate as Creatinine Siobhan rob in predicting glom erular filtration rate . Estimated GFR is not appl icable for dialysis patien ts Wireworker Supervisor ID - [id number] 16:22:00 Test Item Value Reference Range Interpretation Comments MAGNESIUM (JOLEEN) (test code = 2.2 mg/dL 1.6-2.6 627) Wireworker Supervisor ID - JSRAD, CHEST, 1 VIEW, NON [id number] 13:50:00Reason for exam:- >hypoxia, evaluate for worsening edemaShould this be performed at the bedside?->Yes[facility] MAGGY JUÁREZ : 1950 Sex: MFINAL REPORT CLINICAL HISTORY: hypoxia, evaluate for worsening edema TECHNIQUE: 1 view of the chest. COMPARISON: 12/29/2022 IMPRESSION: IABP catheter no longer seen. Left PICC line unchanged. Diffuse bilateral airspace opacities unchanged. New small left pleural effusion. The cardiomediastinal silhouette is magnified by technique with sternotomy wires and a pacemaker. Signed: Keo SimonsMDReport Verified Date/Time: 01/05/2023 13:50:38 Reading Location: [address] Reading Room POCT-GLUCOSE [id number] 11:32:28 Test Item Value Reference Range Interpretation Comments POC-GLUCOSE METER 141 mg/dL 70-110 H : TESTED A T [facility] 6720 (BEAKER) (test code = DOUGLAS Peña [facility] [place], 1538) [address]: Wireworker Supervisor/Techni josafat ID = [id number] for CO RTEZ, RADHA [id number] 08:13:20 Test Item Value Reference Range Interpretation Comments PHOSPHORUS (BEAKER) (test code = 4.5 mg/dL 2.3-4.7 604) Wireworker Supervisor ID - marioHEPATIC FUNCTION [id number] 08:13:20 Test Item Value Reference Range Interpretation Comments TOTAL PROTEIN (BEAKER) (test code = 5.6 gm/dL 6.0-8.3 L 770) ALBUMIN (BEAKER) (test code = 1145) 2.6 g/dL 3.5-5.0 L BILIRUBIN TOTAL (BEAKER) (test code 1.1 mg/dL 0.2-1.2 = 377) BILIRUBIN DIRECT (BEAKER) (test 0.6 mg/dL 0.1-0.5 H code = 706) ALKALINE PHOSPHATASE (BEAKER) (test 94 U/L 40-150 code = 346) AST (SGOT) (BEAKER) (test code = 35 U/L 5-34 H 353) ALT (SGPT) (BEAKER) (test code = 29 U/L 6-55 347) Wireworker Supervisor ID - marioBASIC METABOLIC [id number] 08:13:19 Test Item Value Reference Range Interpretation Comments SODIUM (BEAKER) 128 meq/L 136-145 L (test code = 381) POTASSIUM 4.8 meq/L 3.5-5.1 (BEAKER) (test code = 379) CHLORIDE (BEAKER) 89 meq/L 98-107 L (test code = 382) CO2 (BEAKER) 27 meq/L 22-29 (test code = 355) BLOOD UREA 58 mg/dL 7-21 H NITROGEN (BEAKER) (test code = 354) CREATININE 2.12 mg/dL 0.57-1.25 H (BEAKER) (test code = 358) GLUCOSE RANDOM 172 mg/dL 70-105 H (BEAKER) (test code = 652) CALCIUM (BEAKER) 8.5 mg/dL 8.4-10.2 (test code = 697) EGFR (BEAKER) 33 Interpretatio n of eGFR (test code = mL/min/1.73 values Stage De scription 1092) sq m Result G1 Hillary l or high >=90 G2 Mildly decreased 60-89 G3a Mildl y to moderately 45-5 9 G3b Moderately to s everely 30-44 G4 Severl y decreased 15-29 G5 Kidney failure <15Reported eGF R is based on the CKD-EPI 2020 equation that d oes not use a race coefficientEsti mated GFR is not as accur ate as Creatinine Siobhan rob in predicting glom erular filtration rate . Estimated GFR is not appl icable for dialysis patien ts Wireworker Supervisor ID - [id number] 08:13:19 Test Item Value Reference Range Interpretation Comments MAGNESIUM (BEAKER) (test code = 2.2 mg/dL 1.6-2.6 627) Wireworker Supervisor ID - marioPOCT-GLUCOSE [id number] 06:57:46 Test Item Value Reference Range Interpretation Comments POC-GLUCOSE METER 157 mg/dL 70-110 H : TESTED A T BSC 6720 (BEAKER) (test code = DOUGLAS Peña [facility], 1538) [id number]: Wireworker Supervisor/Techni josafat ID = [id number] for [facility] CBC W/PLT COUNT & AUTO [id number] 05:13:05 Test Item Value Reference Range Interpretation Comments WHITE BLOOD CELL COUNT (BEAKER) 9.4 K/ L 3.5-10.5 (test code = 775) RED BLOOD CELL COUNT (BEAKER) 2.90 M/ L 4.63-6.08 L (test code = 761) HEMOGLOBIN (BEAKER) (test code = 8.1 GM/DL 13.7-17.5 L 410) HEMATOCRIT (BEAKER) (test code = 26.2 % 40.1-51.0 L 411) MEAN CORPUSCULAR VOLUME (BEAKER) 90 fL 79-92 (test code = 753) MEAN CORPUSCULAR HEMOGLOBIN 27.9 pg 25.7-32.2 (BEAKER) (test code = 751) MEAN CORPUSCULAR HEMOGLOBIN CONC 30.9 GM/DL 32.3-36.5 L (BEAKER) (test code = 752) RED CELL DISTRIBUTION WIDTH 25.2 % 11.6-14.4 H (BEAKER) (test code = 412) PLATELET COUNT (BEAKER) (test 302 K/CU MM 150-450 code = 756) MEAN PLATELET VOLUME (BEAKER) 9.3 fL 9.4-12.4 L (test code = 754) NUCLEATED RED BLOOD CELLS 0 /100 WBC 0-0 (BEAKER) (test code = 413) NEUTROPHILS RELATIVE PERCENT 82 % (BEAKER) (test code = 429) LYMPHOCYTES RELATIVE PERCENT 8 % (BEAKER) (test code = 430) MONOCYTES RELATIVE PERCENT 6 % (BEAKER) (test code = 431) EOSINOPHILS RELATIVE PERCENT 1 % (BEAKER) (test code = 432) BASOPHILS RELATIVE PERCENT 1 % (BEAKER) (test code = 437) NEUTROPHILS ABSOLUTE COUNT 7.73 K/ L 1.78-5.38 H (BEAKER) (test code = 670) LYMPHOCYTES ABSOLUTE COUNT 0.78 K/ L 1.32-3.57 L (BEAKER) (test code = 414) MONOCYTES ABSOLUTE COUNT (BEAKER) 0.57 K/ L 0.30-0.82 (test code = 415) EOSINOPHILS ABSOLUTE COUNT 0.09 K/ L 0.04-0.54 (BEAKER) (test code = 416) BASOPHILS ABSOLUTE COUNT (BEAKER) 0.05 K/ L 0.01-0.08 (test code = 417) IMMATURE GRANULOCYTES-RELATIVE 1.70 % 0.00-1.00 H PERCENT (BEAKER) (test code = 2801) PH, [id number] 04:31:59 Test Item Value Reference Range Interpretation Comments PH VENOUS (BEAKER) (test code = 701) 7.44 7.32-7.42 H POCT-GLUCOSE [id number] 21:49:50 Test Item Value Reference Range Interpretation Comments POC-GLUCOSE METER 208 mg/dL 70-110 H : TESTED A T [facility] 6720 (BEAKER) (test code = DOUGLAS CID [place], 1538) 68020: Wireworker Supervisor/Techni josafat ID = [id number] for UG VELASQUEZ POPE POCT-GLUCOSE [id number] 17:22:45 Test Item Value Reference Range Interpretation Comments POC-GLUCOSE METER 150 mg/dL 70-110 H : TESTED A T [facility] 6720 (BEAKER) (test code = DOUGLAS Peña [facility], 1538) 61634: Wireworker Supervisor/Techni josafat ID = [id number] for OR ARNIE PELLETIER BASIC METABOLIC [id number] 16:35:36 Test Item Value Reference Range Interpretation Comments SODIUM (BEAKER) 126 meq/L 136-145 L (test code = 381) POTASSIUM 4.8 meq/L 3.5-5.1 Specimen slight ly (BEAKER) (test hemolyzed code = 379) CHLORIDE (BEAKER) 88 meq/L 98-107 L (test code = 382) CO2 (BEAKER) 28 meq/L 22-29 (test code = 355) BLOOD UREA 58 mg/dL 7-21 H NITROGEN (BEAKER) (test code = 354) CREATININE 2.04 mg/dL 0.57-1.25 H Specimen slight ly (BEAKER) (test hemolyzed code = 358) GLUCOSE RANDOM 192 mg/dL 70-105 H (BEAKER) (test code = 652) CALCIUM (BEAKER) 8.5 mg/dL 8.4-10.2 (test code = 697) EGFR (BEAKER) 34 Interpretatio n of eGFR (test code = mL/min/1.73 values Stage De scription 1092) sq m Result G1 Hillary l or high >=90 G2 Mildly decreased 60-89 G3a Mildl y to moderately 45-5 9 G3b Moderately to s everely 30-44 G4 Severl y decreased 15-29 G5 Kidne y failure <15Reported eGF R is based on the CKD-EPI 2021 equation that d oes not use a race coefficientEsti mated GFR is not as accur ate as Creatinine Siobhan rivas in predicting glom erular filtration rate . Estimated GFR is not appl icable for dialysis patien ts Wireworker Supervisor ID - [id number] 16:35:35 Test Item Value Reference Range Interpretation Comments MAGNESIUM (BEAKER) 2.5 mg/dL 1.6-2.6 Specimen slightly (test code = 627) hemolyzed Wireworker Supervisor ID - ADMINPOCT-GLUCOSE [id number] 11:44:07 Test Item Value Reference Range Interpretation Comments POC-GLUCOSE METER 109 mg/dL 70-110 : TESTED A T [facility] 6720 (BEAKER) (test code = DOUGLAS Peña [facility], 1538) [id number]: Wireworker Supervisor/Techni josafat ID = [id number] for CECILIA KHALIL POCT-GLUCOSE [id number] 08:30:56 Test Item Value Reference Range Interpretation Comments POC-GLUCOSE METER 102 mg/dL 70-110 : TESTED A T [facility] 6720 (BEAKER) (test code = DOUGLAS Peña [facility], 1538) 73744: Wireworker Supervisor/Techni josafat ID = [id number] for Chely Diego BASIC METABOLIC [id number] 03:35:45 Test Item Value Reference Range Interpretation Comments SODIUM (BEAKER) 127 meq/L 136-145 L (test code = 381) POTASSIUM 3.9 meq/L 3.5-5.1 (BEAKER) (test code = 379) CHLORIDE (BEAKER) 88 meq/L 98-107 L (test code = 382) CO2 (BEAKER) 28 meq/L 22-29 (test code = 355) BLOOD UREA 56 mg/dL 7-21 H NITROGEN (BEAKER) (test code = 354) CREATININE 1.89 mg/dL 0.57-1.25 H (BEAKER) (test code = 358) GLUCOSE RANDOM 125 mg/dL 70-105 H (BEAKER) (test code = 652) CALCIUM (BEAKER) 8.4 mg/dL 8.4-10.2 (test code = 697) EGFR (BEAKER) 38 Interpretatio n of eGFR (test code = mL/min/1.73 values Stage De scription 1092) sq m Result G1 Hillary l or high >=90 G2 Mildly decreased 60-89 G3a Mildl y to moderately 45-5 9 G3b Moderately to s everely 30-44 G4 Severl y decreased 15-29 G5 Kidney failure <15Reported eGF R is based on the CKD-EPI 1 equation that d oes not use a race coefficientEsti mated GFR is not as accur ate as Creatinine Siobhan rob in predicting glom erular filtration rate . Estimated GFR is not appl icable for dialysis patien ts Wireworker Supervisor ID - [id number] 03:35:45 Test Item Value Reference Range Interpretation Comments MAGNESIUM (BEAKER) (test code = 1.9 mg/dL 1.6-2.6 627) Wireworker Supervisor ID - [id number] 03:35:45 Test Item Value Reference Range Interpretation Comments PHOSPHORUS (BEAKER) (test code = 4.3 mg/dL 2.3-4.7 604) Wireworker Supervisor ID - ADMINCBC W/PLT COUNT & AUTO [id number] 03:16:38 Test Item Value Reference Range Interpretation Comments WHITE BLOOD CELL COUNT (BEAKER) 10.3 K/ L 3.5-10.5 (test code = 775) RED BLOOD CELL COUNT (BEAKER) 2.92 M/ L 4.63-6.08 L (test code = 761) HEMOGLOBIN (BEAKER) (test code = 8.1 GM/DL 13.7-17.5 L 410) HEMATOCRIT (BEAKER) (test code = 26.1 % 40.1-51.0 L 411) MEAN CORPUSCULAR VOLUME (BEAKER) 89 fL 79-92 (test code = 753) MEAN CORPUSCULAR HEMOGLOBIN 27.7 pg 25.7-32.2 (BEAKER) (test code = 751) MEAN CORPUSCULAR HEMOGLOBIN CONC 31.0 GM/DL 32.3-36.5 L (BEAKER) (test code = 752) RED CELL DISTRIBUTION WIDTH 24.5 % 11.6-14.4 H (BEAKER) (test code = 412) PLATELET COUNT (BEAKER) (test 287 K/CU MM 150-450 code = 756) MEAN PLATELET VOLUME (BEAKER) 8.8 fL 9.4-12.4 L (test code = 754) NUCLEATED RED BLOOD CELLS 0 /100 WBC 0-0 (BEAKER) (test code = 413) NEUTROPHILS RELATIVE PERCENT 84 % (BEAKER) (test code = 429) LYMPHOCYTES RELATIVE PERCENT 7 % (BEAKER) (test code = 430) MONOCYTES RELATIVE PERCENT 5 % (BEAKER) (test code = 431) EOSINOPHILS RELATIVE PERCENT 3 % (BEAKER) (test code = 432) BASOPHILS RELATIVE PERCENT 1 % (BEAKER) (test code = 437) NEUTROPHILS ABSOLUTE COUNT 8.60 K/ L 1.78-5.38 H (BEAKER) (test code = 670) LYMPHOCYTES ABSOLUTE COUNT 0.70 K/ L 1.32-3.57 L (BEAKER) (test code = 414) MONOCYTES ABSOLUTE COUNT (BEAKER) 0.48 K/ L 0.30-0.82 (test code = 415) EOSINOPHILS ABSOLUTE COUNT 0.28 K/ L 0.04-0.54 (BEAKER) (test code = 416) BASOPHILS ABSOLUTE COUNT (BEAKER) 0.07 K/ L 0.01-0.08 (test code = 417) IMMATURE GRANULOCYTES-RELATIVE 1.60 % 0.00-1.00 H PERCENT (BEAKER) (test code = 2801) BASIC METABOLIC [id number] 20:50:28 Test Item Value Reference Range Interpretation Comments SODIUM (BEAKER) 130 meq/L 136-145 L (test code = 381) POTASSIUM 3.7 meq/L 3.5-5.1 (BEAKER) (test code = 379) CHLORIDE (BEAKER) 89 meq/L 98-107 L (test code = 382) CO2 (BEAKER) 30 meq/L 22-29 H (test code = 355) BLOOD UREA 52 mg/dL 7-21 H NITROGEN (BEAKER) (test code = 354) CREATININE 1.87 mg/dL 0.57-1.25 H (BEAKER) (test code = 358) GLUCOSE RANDOM 129 mg/dL 70-105 H (BEAKER) (test code = 652) CALCIUM (BEAKER) 8.5 mg/dL 8.4-10.2 (test code = 697) EGFR (BEAKER) 38 Interpretatio n of eGFR (test code = mL/min/1.73 values Stage De scription 1092) sq m Result G1 Hillary l or high >=90 G2 Mildly decreased 60-89 G3a Mildl y to moderately 45-5 9 G3b Moderately to s everely 30-44 G4 Sever ly decreased 15-29 G5 Kidney failure <15Repo rted eGFR is based on the CKD-EPI 2020 equation t hat does not use a race coefficientEsti mated GFR is not as accur ate as Creatinine Siobhan rob in predicting glom erular filtration rate . Estimated GFR is not appl icable for dialysis patien ts Wireworker Supervisor ID - [id number] 20:50:28 Test Item Value Reference Range Interpretation Comments MAGNESIUM (BEAKER) (test code = 2.1 mg/dL 1.6-2.6 627) Wireworker Supervisor ID - BSPOCT-GLUCOSE [id number] 20:41:27 Test Item Value Reference Range Interpretation Comments POC-GLUCOSE METER 106 mg/dL 70-110 : TESTED A T [facility] 6720 (BEAKER) (test code = [facility], 1538) 62334: Wireworker Supervisor/Techni josafat ID = [id number] for Hina Adkins POCT-GLUCOSE [id number] 16:23:50 Test Item Value Reference Range Interpretation Comments POC-GLUCOSE METER 120 mg/dL 70-110 H : TESTED A T [facility] 6720 (BEAKER) (test code = [facility], 1538) 35176: Wireworker Supervisor/Techni josafat ID = [id number] for SAM VAN BASIC METABOLIC [id number] 12:22:31 Test Item Value Reference Range Interpretation Comments SODIUM (BEAKER) 128 meq/L 136-145 L (test code = 381) POTASSIUM 4.5 meq/L 3.5-5.1 (BEAKER) (test code = 379) CHLORIDE (BEAKER) 89 meq/L 98-107 L (test code = 382) CO2 (BEAKER) 29 meq/L 22-29 (test code = 355) BLOOD UREA 56 mg/dL 7-21 H NITROGEN (BEAKER) (test code = 354) CREATININE 2.10 mg/dL 0.57-1.25 H (BEAKER) (test code = 358) GLUCOSE RANDOM 250 mg/dL 70-105 H (BEAKER) (test code = 652) CALCIUM (BEAKER) 8.6 mg/dL 8.4-10.2 (test code = 697) EGFR (BEAKER) 33 Interpretatio n of eGFR (test code = mL/min/1.73 values Stage De scription 1092) sq m Result G1 Hillary l or high >=90 G2 Mildly decreased 60-89 G3a Mildl y to moderately 45-5 9 G3b Moderately to s everely 30-44 G4 Severl y decreased 15-29 G5 Kidney failure <15Reported eGF R is based on the CKD-EPI 2020 equation that d oes not use a race coefficientEsti mated GFR is not as accur ate as Creatinine Siobhan rivas in predicting glom erular filtration rate . Estimated GFR is not appl icable for dialysis patien ts Wireworker Supervisor ID - CYNTHIA [id number] 12:22:31 Test Item Value Reference Range Interpretation Comments MAGNESIUM (BEAKER) (test code = 2.2 mg/dL 1.6-2.6 627) Wireworker Supervisor ID - CYNTHIA GPOCT-GLUCOSE [id number] 11:41:24 Test Item Value Reference Range Interpretation Comments POC-GLUCOSE METER 223 mg/dL 70-110 H : TESTED A T [facility] 6720 (BEAKER) (test code = [facility], 1538) 24206: Wireworker Supervisor/Techni josafat ID = [id number] for SAM VAN POCT-GLUCOSE [id number] 07:35:04 Test Item Value Reference Range Interpretation Comments POC-GLUCOSE METER 93 mg/dL 70-110 : TESTED A T [facility] 6720 (BEAKER) (test code = [facility] [employer] [facility], 1538) 09883: Wireworker Supervisor/Techni josafat ID = [id number] for SAM LARES [id number] 03:33:42 Test Item Value Reference Range Interpretation Comments MAGNESIUM (BEAKER) (test code = 2.0 mg/dL 1.6-2.6 627) Wireworker Supervisor ID - CYNTHIA [id number] 03:33:42 Test Item Value Reference Range Interpretation Comments PHOSPHORUS (BEAKER) (test code = 4.1 mg/dL 2.3-4.7 604) Wireworker Supervisor ID - CYNTHIA GBASIC METABOLIC [id number] 03:33:41 Test Item Value Reference Range Interpretation Comments SODIUM (BEAKER) 132 meq/L 136-145 L (test code = 381) POTASSIUM 3.4 meq/L 3.5-5.1 L (BEAKER) (test code = 379) CHLORIDE (BEAKER) 90 meq/L 98-107 L (test code = 382) CO2 (BEAKER) 30 meq/L 22-29 H (test code = 355) BLOOD UREA 57 mg/dL 7-21 H NITROGEN (BEAKER) (test code = 354) CREATININE 1.89 mg/dL 0.57-1.25 H (BEAKER) (test code = 358) GLUCOSE RANDOM 112 mg/dL 70-105 H (BEAKER) (test code = 652) CALCIUM (BEAKER) 8.6 mg/dL 8.4-10.2 (test code = 697) EGFR (BEAKER) 38 Interpretatio n of eGFR (test code = mL/min/1.73 values Stage De scription 1092) sq m Result G1 Hillary l or high >=90 G2 Mildly decreased 60-89 G3a Mildl y to moderately 45-5 9 G3b Moderately to s everely 30-44 G4 Severl y decreased 15-29 G5 Kidney failure <15Reported eGF R is based on the CKD-EPI 2020 equation that d oes not use a race coefficientEsti mated GFR is not as accur ate as Creatinine Siobhan rob in predicting glom erular filtration rate . Estimated GFR is not appl icable for dialysis patien ts Wireworker Supervisor ID - CYNTHIA GCBC W/PLT COUNT & AUTO [id number] 03:12:51 Test Item Value Reference Range Interpretation Comments WHITE BLOOD CELL COUNT (BEAKER) 12.9 K/ L 3.5-10.5 H (test code = 775) RED BLOOD CELL COUNT (BEAKER) 2.97 M/ L 4.63-6.08 L (test code = 761) HEMOGLOBIN (BEAKER) (test code = 8.1 GM/DL 13.7-17.5 L 410) HEMATOCRIT (BEAKER) (test code = 25.8 % 40.1-51.0 L 411) MEAN CORPUSCULAR VOLUME (BEAKER) 87 fL 79-92 (test code = 753) MEAN CORPUSCULAR HEMOGLOBIN 27.3 pg 25.7-32.2 (BEAKER) (test code = 751) MEAN CORPUSCULAR HEMOGLOBIN CONC 31.4 GM/DL 32.3-36.5 L (BEAKER) (test code = 752) RED CELL DISTRIBUTION WIDTH 24.3 % 11.6-14.4 H (BEAKER) (test code = 412) PLATELET COUNT (BEAKER) (test 294 K/CU MM 150-450 code = 756) MEAN PLATELET VOLUME (BEAKER) 8.5 fL 9.4-12.4 L (test code = 754) NUCLEATED RED BLOOD CELLS 1 /100 WBC 0-0 H (BEAKER) (test code = 413) NEUTROPHILS RELATIVE PERCENT 83 % (BEAKER) (test code = 429) LYMPHOCYTES RELATIVE PERCENT 6 % (BEAKER) (test code = 430) MONOCYTES RELATIVE PERCENT 5 % (BEAKER) (test code = 431) EOSINOPHILS RELATIVE PERCENT 4 % (BEAKER) (test code = 432) BASOPHILS RELATIVE PERCENT 1 % (BEAKER) (test code = 437) NEUTROPHILS ABSOLUTE COUNT 10.73 K/ L 1.78-5.38 H (BEAKER) (test code = 670) LYMPHOCYTES ABSOLUTE COUNT 0.82 K/ L 1.32-3.57 L (BEAKER) (test code = 414) MONOCYTES ABSOLUTE COUNT (BEAKER) 0.59 K/ L 0.30-0.82 (test code = 415) EOSINOPHILS ABSOLUTE COUNT 0.52 K/ L 0.04-0.54 (BEAKER) (test code = 416) BASOPHILS ABSOLUTE COUNT (BEAKER) 0.06 K/ L 0.01-0.08 (test code = 417) IMMATURE GRANULOCYTES-RELATIVE 1.40 % 0.00-1.00 H PERCENT (BEAKER) (test code = 2801) [id number] 20:41:39 Test Item Value Reference Range Interpretation Comments MAGNESIUM (BEAKER) (test code = 2.2 mg/dL 1.6-2.6 627) Wireworker Supervisor ID - BSHEPATIC FUNCTION [id number] 20:41:39 Test Item Value Reference Range Interpretation Comments TOTAL PROTEIN (BEAKER) (test code = 5.7 gm/dL 6.0-8.3 L 770) ALBUMIN (BEAKER) (test code = 1145) 2.5 g/dL 3.5-5.0 L BILIRUBIN TOTAL (BEAKER) (test code 0.9 mg/dL 0.2-1.2 = 377) BILIRUBIN DIRECT (BEAKER) (test 0.5 mg/dL 0.1-0.5 code = 706) ALKALINE PHOSPHATASE (BEAKER) (test 107 U/L 40-150 code = 346) AST (SGOT) (BEAKER) (test code = 40 U/L 5-34 H 353) ALT (SGPT) (BEAKER) (test code = 32 U/L 6-55 347) Wireworker Supervisor ID - BSBASIC METABOLIC [id number] 20:41:38 Test Item Value Reference Range Interpretation Comments SODIUM (BEAKER) 131 meq/L 136-145 L (test code = 381) POTASSIUM 3.5 meq/L 3.5-5.1 (BEAKER) (test code = 379) CHLORIDE (BEAKER) 90 meq/L 98-107 L (test code = 382) CO2 (BEAKER) 30 meq/L 22-29 H (test code = 355) BLOOD UREA 58 mg/dL 7-21 H NITROGEN (BEAKER) (test code = 354) CREATININE 1.94 mg/dL 0.57-1.25 H (BEAKER) (test code = 358) GLUCOSE RANDOM 195 mg/dL 70-105 H (BEAKER) (test code = 652) CALCIUM (BEAKER) 8.5 mg/dL 8.4-10.2 (test code = 697) EGFR (BEAKER) 37 Interpretatio n of eGFR (test code = mL/min/1.73 values Stage D escription 1092) sq m Result G1 Hillary l or high >=90 G2 Mildly decreased 60-89 G3a Mildl y to moderately 45-5 9 G3b Moderately to s everely 30-44 G4 Severl y decreased 15-29 G5 Kidney failure <15Reported eGF R is based on the CKD-EPI 2020 equation that d oes not use a race coefficientEsti mated GFR is not as accur ate as Creatinine Siobhan rivas in predicting glom erular filtration rate . Estimated GFR is not appl icable for dialysis patien ts Wireworker Supervisor ID - BSPOCT-GLUCOSE [id number] 20:24:48 Test Item Value Reference Range Interpretation Comments POC-GLUCOSE METER 135 mg/dL 70-110 H : TESTED A T [facility] 6720 (BEAKER) (test code = [facility] [employer] [facility], 1538) 19217: Wireworker Supervisor/Techni josafat ID = [id number] for BRYANNA GARCIA POCT-GLUCOSE [id number] 16:26:14 Test Item Value Reference Range Interpretation Comments POC-GLUCOSE METER 138 mg/dL 70-110 H : TESTED A T [facility] 6720 (BEAKER) (test code = [facility] R [facility], 1538) 46321: Wireworker Supervisor/Techni josafat ID = [id number] for CECILIA KHALIL BASIC METABOLIC [id number] 13:39:07 Test Item Value Reference Range Interpretation Comments SODIUM (BEAKER) 130 meq/L 136-145 L (test code = 381) POTASSIUM 4.0 meq/L 3.5-5.1 (BEAKER) (test code = 379) CHLORIDE (BEAKER) 89 meq/L 98-107 L (test code = 382) CO2 (BEAKER) 28 meq/L 22-29 (test code = 355) BLOOD UREA 61 mg/dL 7-21 H NITROGEN (BEAKER) (test code = 354) CREATININE 2.02 mg/dL 0.57-1.25 H (BEAKER) (test code = 358) GLUCOSE RANDOM 229 mg/dL 70-105 H (BEAKER) (test code = 652) CALCIUM (BEAKER) 8.3 mg/dL 8.4-10.2 L (test code = 697) EGFR (BEAKER) 35 Interpretati on of eGFR (test code = mL/min/1.73 values Stage De scription 1092) sq m Result G1 Hillary l or high >=90 G2 Mildly decreased 60-89 G3a Mildl y to moderately 45-5 9 G3b Moderately to s everely 30-44 G4 Severl y decreased 15-29 G5 Kidney failure <15Reported eGF R is based on the CKD-EPI 2020 equation that d oes not use a race coefficientEsti mated GFR is not as accur ate as Creatinine Siobhan rivas in predicting glom erular filtration rate . Estimated GFR is not appl icable for dialysis patien ts Wireworker Supervisor ID - [id number] 13:39:07 Test Item Value Reference Range Interpretation Comments MAGNESIUM (BEAKER) (test code = 2.0 mg/dL 1.6-2.6 627) Wireworker Supervisor ID - DBPOCT-GLUCOSE [id number] 11:06:38 Test Item Value Reference Range Interpretation Comments POC-GLUCOSE METER 187 mg/dL 70-110 H : TESTED A T [facility] 6720 (BEAKER) (test code = DOUGLAS Peña [facility], 1538) 11216: Wireworker Supervisor/Techni josafat ID = [id number] for Edgard clarkMillieKatherin POCT-GLUCOSE [id number] 07:06:59 Test Item Value Reference Range Interpretation Comments POC-GLUCOSE METER 106 mg/dL 70-110 : TESTED A T [facility] 6720 (BEAKER) (test code = [facility] [place], 1538) 82599: Wireworker Supervisor/Techni josafat ID = [id number] for Armando Goff [id number] 04:59:13 Test Item Value Reference Range Interpretation Comments MAGNESIUM (BEAKER) (test code = 2.1 mg/dL 1.6-2.6 627) Wireworker Supervisor ID - [id number] 04:59:13 Test Item Value Reference Range Interpretation Comments PHOSPHORUS (BEAKER) (test code = 4.5 mg/dL 2.3-4.7 604) Wireworker Supervisor ID - DBBASIC METABOLIC [id number] 04:59:12 Test Item Value Reference Range Interpretation Comments SODIUM (BEAKER) 133 meq/L 136-145 L (test code = 381) POTASSIUM 3.4 meq/L 3.5-5.1 L (BEAKER) (test code = 379) CHLORIDE (BEAKER) 93 meq/L 98-107 L (test code = 382) CO2 (BEAKER) 27 meq/L 22-29 (test code = 355) BLOOD UREA 60 mg/dL 7-21 H NITROGEN (BEAKER) (test code = 354) CREATININE 1.94 mg/dL 0.57-1.25 H (BEAKER) (test code = 358) GLUCOSE RANDOM 108 mg/dL 70-105 H (BEAKER) (test code = 652) CALCIUM (BEAKER) 8.2 mg/dL 8.4-10.2 L (test code = 697) EGFR (BEAKER) 37 Interpretatio n of eGFR (test code = mL/min/1.73 values Stage De scription 1092) sq m Result G1 Hillary l or high >=90 G2 Mildly decreased 60-89 G3a Mildl y to moderately 45-5 9 G3b Moderately to s everely 30-44 G4 Severl y decreased 15-29 G5 Kidne y failure <15Reported eGF R is based on the CKD-EPI 2021 equation that d oes not use a race coefficientEsti mated GFR is not as accur ate as Creatinine Siobhan rivas in predicting glom erular filtration rate . Estimated GFR is not appl icable for dialysis patien ts Wireworker Supervisor ID - DBCBC W/PLT COUNT & AUTO [id number] 04:39:43 Test Item Value Reference Range Interpretation Comments WHITE BLOOD CELL COUNT (BEAKER) 13.8 K/ L 3.5-10.5 H (test code = 775) RED BLOOD CELL COUNT (BEAKER) 2.78 M/ L 4.63-6.08 L (test code = 761) HEMOGLOBIN (BEAKER) (test code = 7.7 GM/DL 13.7-17.5 L 410) HEMATOCRIT (BEAKER) (test code = 24.9 % 40.1-51.0 L 411) MEAN CORPUSCULAR VOLUME (BEAKER) 90 fL 79-92 (test code = 753) MEAN CORPUSCULAR HEMOGLOBIN 27.7 pg 25.7-32.2 (BEAKER) (test code = 751) MEAN CORPUSCULAR HEMOGLOBIN CONC 30.9 GM/DL 32.3-36.5 L (BEAKER) (test code = 752) RED CELL DISTRIBUTION WIDTH 23.4 % 11.6-14.4 H (BEAKER) (test code = 412) PLATELET COUNT (BEAKER) (test 300 K/CU MM 150-450 code = 756) MEAN PLATELET VOLUME (BEAKER) 8.9 fL 9.4-12.4 L (test code = 754) NUCLEATED RED BLOOD CELLS 1 /100 WBC 0-0 H (BEAKER) (test code = 413) NEUTROPHILS RELATIVE PERCENT 79 % (BEAKER) (test code = 429) LYMPHOCYTES RELATIVE PERCENT 8 % (BEAKER) (test code = 430) MONOCYTES RELATIVE PERCENT 4 % (BEAKER) (test code = 431) EOSINOPHILS RELATIVE PERCENT 5 % (BEAKER) (test code = 432) BASOPHILS RELATIVE PERCENT 1 % (BEAKER) (test code = 437) NEUTROPHILS ABSOLUTE COUNT 10.90 K/ L 1.78-5.38 H (BEAKER) (test code = 670) LYMPHOCYTES ABSOLUTE COUNT 1.11 K/ L 1.32-3.57 L (BEAKER) (test code = 414) MONOCYTES ABSOLUTE COUNT (BEAKER) 0.55 K/ L 0.30-0.82 (test code = 415) EOSINOPHILS ABSOLUTE COUNT 0.62 K/ L 0.04-0.54 H (BEAKER) (test code = 416) BASOPHILS ABSOLUTE COUNT (BEAKER) 0.07 K/ L 0.01-0.08 (test code = 417) IMMATURE GRANULOCYTES-RELATIVE 3.80 % 0.00-1.00 H PERCENT (BEAKER) (test code = 2801) BASIC METABOLIC [id number] 00:34:56 Test Item Value Reference Range Interpretation Comments SODIUM (BEAKER) 131 meq/L 136-145 L (test code = 381) POTASSIUM 3.9 meq/L 3.5-5.1 (BEAKER) (test code = 379) CHLORIDE (BEAKER) 94 meq/L 98-107 L (test code = 382) CO2 (BEAKER) 27 meq/L 22-29 (test code = 355) BLOOD UREA 60 mg/dL 7-21 H NITROGEN (BEAKER) (test code = 354) CREATININE 1.93 mg/dL 0.57-1.25 H (BEAKER) (test code = 358) GLUCOSE RANDOM 124 mg/dL 70-105 H (BEAKER) (test code = 652) CALCIUM (BEAKER) 8.4 mg/dL 8.4-10.2 (test code = 697) EGFR (BEAKER) 37 Interpretatio n of eGFR (test code = mL/min/1.73 values Stage De scription 1092) sq m Result G1 Hillary l or high >=90 G2 Mildly decreased 60-89 G3a Mildl y to moderately 45-5 9 G3b Moderately to s everely 30-44 G4 Severl y decreased 15-29 G5 Kidney failure <15Reported eGF R is based on the CKD-EPI 2020 equation that d oes not use a race coefficientEsti mated GFR is not as accur ate as Creatinine Siobhan rob in predicting glom erular filtration rate . Estimated GFR is not appl icable for dialysis patien ts Wireworker Supervisor ID - [id number] 00:34:56 Test Item Value Reference Range Interpretation Comments MAGNESIUM (BEAKER) (test code = 2.2 mg/dL 1.6-2.6 627) Wireworker Supervisor ID - DBPOCT-GLUCOSE [id number] 23:38:54 Test Item Value Reference Range Interpretation Comments POC-GLUCOSE METER 137 mg/dL 70-110 H : TESTED A T [facility] 6720 (BEAKER) (test code = [place] [place] [place], 1538) [id number]: Wireworker Supervisor/Techni josafat ID = [id number] for Armando Goff POCT-GLUCOSE [id number] 15:58:23 Test Item Value Reference Range Interpretation Comments POC-GLUCOSE METER 218 mg/dL 70-110 H : TESTED A T [facility] 6720 (BEAKER) (test code = DOUGLAS Peña [facility], 1538) [id number]: Wireworker Supervisor/Techni josafat ID = [id number] for JOSE ONTIVEROS BASIC METABOLIC [id number] 12:32:25 Test Item Value Reference Range Interpretation Comments SODIUM (BEAKER) 128 meq/L 136-145 L (test code = 381) POTASSIUM 4.5 meq/L 3.5-5.1 (BEAKER) (test code = 379) CHLORIDE (BEAKER) 94 meq/L 98-107 L (test code = 382) CO2 (BEAKER) 26 meq/L 22-29 (test code = 355) BLOOD UREA 55 mg/dL 7-21 H NITROGEN (BEAKER) (test code = 354) CREATININE 1.96 mg/dL 0.57-1.25 H (BEAKER) (test code = 358) GLUCOSE RANDOM 249 mg/dL 70-105 H (BEAKER) (test code = 652) CALCIUM (BEAKER) 8.3 mg/dL 8.4-10.2 L (test code = 697) EGFR (BEAKER) 36 Interpretatio n of eGFR (test code = mL/min/1.73 values Stage De scription 1092) sq m Result G1 Hillary l or high >=90 G2 Mildly decreased 60-89 G3a Mildl y to moderately 45-5 9 G3b Moderately to s everely 30-44 G4 Severl y decreased 15-29 G5 Kidney failure <15Reported eGF R is based on the CKD-EPI 1 equation that d oes not use a race coefficientEsti mated GFR is not as accur ate as Creatinine Siobhan rivas in predicting glom erular filtration rate . Estimated GFR is not appl icable for dialysis patien ts Wireworker Supervisor ID - [id number] 12:32:25 Test Item Value Reference Range Interpretation Comments MAGNESIUM (BEAKER) (test code = 2.4 mg/dL 1.6-2.6 627) Wireworker Supervisor ID - MARCOPOCT-GLUCOSE [id number] 11:29:59 Test Item Value Reference Range Interpretation Comments POC-GLUCOSE METER 241 mg/dL 70-110 H : TESTED A T [facility] 6720 (BEAKER) (test code = [facility], 1538) [id number]: Wireworker Supervisor/Techni josafat ID = [id number] for RODOLFO DO POCT-GLUCOSE [id number] 11:00:55 Test Item Value Reference Range Interpretation Comments POC-GLUCOSE METER 239 mg/dL 70-110 H : TESTED A T [facility] 6720 (BEAKER) (test code = [facility], 1538) [id number]: Wireworker Supervisor/Techni josafat ID = [id number] for Donna Melo POCT-GLUCOSE [id number] 08:17:25 Test Item Value Reference Range Interpretation Comments POC-GLUCOSE METER 132 mg/dL 70-110 H : TESTED A T [facility] 6720 (BEAKER) (test code = [facility], 1538) 83617: Wireworker Supervisor/Techni josafat ID = [id number] for Donna Meol [id number] 04:02:23 Test Item Value Reference Range Interpretation Comments PHOSPHORUS (BEAKER) (test code = 4.1 mg/dL 2.3-4.7 604) Wireworker Supervisor ID - AAHAMIDBASIC METABOLIC [id number] 04:02:22 Test Item Value Reference Range Interpretation Comments SODIUM (BEAKER) 129 meq/L 136-145 L (test code = 381) POTASSIUM 4.2 meq/L 3.5-5.1 (BEAKER) (test code = 379) CHLORIDE (BEAKER) 94 meq/L 98-107 L (test code = 382) CO2 (BEAKER) 21 meq/L 22-29 L (test code = 355) BLOOD UREA 54 mg/dL 7-21 H NITROGEN (BEAKER) (test code = 354) CREATININE 1.81 mg/dL 0.57-1.25 H (BEAKER) (test code = 358) GLUCOSE RANDOM 171 mg/dL 70-105 H (BEAKER) (test code = 652) CALCIUM (BEAKER) 8.1 mg/dL 8.4-10.2 L (test code = 697) EGFR (BEAKER) 40 Interpretatio n of eGFR (test code = mL/min/1.73 values Stage De scription 1092) sq m Result G1 Hillary l or high >=90 G2 Mildly decreased 60-89 G3a Mildl y to moderately 45-5 9 G3b Moderately to s everely 30-44 G4 Sever ly decreased 15-29 G5 Kidney failure <15Repo rted eGFR is based on the CKD-EPI 2020 equation t hat does not use a race coefficientEsti mated GFR is not as accur ate as Creatinine Siobhan rob in predicting glom erular filtration rate . Estimated GFR is not appl icable for dialysis patien ts Wireworker Supervisor ID - [id number] 04:02:22 Test Item Value Reference Range Interpretation Comments MAGNESIUM (BEAKER) (test code = 2.5 mg/dL 1.6-2.6 627) Wireworker Supervisor ID - AAHAMIDCBC W/PLT COUNT & AUTO [id number] 03:35:07 Test Item Value Reference Range Interpretation Comments WHITE BLOOD CELL COUNT (BEAKER) 16.9 K/ L 3.5-10.5 H (test code = 775) RED BLOOD CELL COUNT (BEAKER) 2.96 M/ L 4.63-6.08 L (test code = 761) HEMOGLOBIN (BEAKER) (test code = 7.9 GM/DL 13.7-17.5 L 410) HEMATOCRIT (BEAKER) (test code = 25.8 % 40.1-51.0 L 411) MEAN CORPUSCULAR VOLUME (BEAKER) 87 fL 79-92 (test code = 753) MEAN CORPUSCULAR HEMOGLOBIN 26.7 pg 25.7-32.2 (BEAKER) (test code = 751) MEAN CORPUSCULAR HEMOGLOBIN CONC 30.6 GM/DL 32.3-36.5 L (BEAKER) (test code = 752) RED CELL DISTRIBUTION WIDTH 22.4 % 11.6-14.4 H (BEAKER) (test code = 412) PLATELET COUNT (BEAKER) (test 333 K/CU MM 150-450 code = 756) MEAN PLATELET VOLUME (BEAKER) 9.0 fL 9.4-12.4 L (test code = 754) NUCLEATED RED BLOOD CELLS 1 /100 WBC 0-0 H (BEAKER) (test code = 413) NEUTROPHILS RELATIVE PERCENT 84 % (BEAKER) (test code = 429) LYMPHOCYTES RELATIVE PERCENT 6 % (BEAKER) (test code = 430) MONOCYTES RELATIVE PERCENT 4 % (BEAKER) (test code = 431) EOSINOPHILS RELATIVE PERCENT 3 % (BEAKER) (test code = 432) BASOPHILS RELATIVE PERCENT 0 % (BEAKER) (test code = 437) NEUTROPHILS ABSOLUTE COUNT 14.22 K/ L 1.78-5.38 H (BEAKER) (test code = 670) LYMPHOCYTES ABSOLUTE COUNT 1.05 K/ L 1.32-3.57 L (BEAKER) (test code = 414) MONOCYTES ABSOLUTE COUNT (BEAKER) 0.59 K/ L 0.30-0.82 (test code = 415) EOSINOPHILS ABSOLUTE COUNT 0.46 K/ L 0.04-0.54 (BEAKER) (test code = 416) BASOPHILS ABSOLUTE COUNT (BEAKER) 0.07 K/ L 0.01-0.08 (test code = 417) IMMATURE GRANULOCYTES-RELATIVE 3.10 % 0.00-1.00 H PERCENT (BEAKER) (test code = 2801) HEPATIC FUNCTION [id number] 21:40:49 Test Item Value Reference Range Interpretation Comments TOTAL PROTEIN (BEAKER) (test code = 5.7 gm/dL 6.0-8.3 L 770) ALBUMIN (BEAKER) (test code = 1145) 2.5 g/dL 3.5-5.0 L BILIRUBIN TOTAL (BEAKER) (test code 0.9 mg/dL 0.2-1.2 = 377) BILIRUBIN DIRECT (BEAKER) (test 0.6 mg/dL 0.1-0.5 H code = 706) ALKALINE PHOSPHATASE (BEAKER) (test 102 U/L 40-150 code = 346) AST (SGOT) (BEAKER) (test code = 41 U/L 5-34 H 353) ALT (SGPT) (BEAKER) (test code = 30 U/L 6-55 347) Wireworker Supervisor ID - AAHAMIDBASIC METABOLIC [id number] 21:40:48 Test Item Value Reference Range Interpretation Comments SODIUM (BEAKER) 128 meq/L 136-145 L (test code = 381) POTASSIUM 3.9 meq/L 3.5-5.1 (BEAKER) (test code = 379) CHLORIDE (BEAKER) 92 meq/L 98-107 L (test code = 382) CO2 (BEAKER) 23 meq/L 22-29 (test code = 355) BLOOD UREA 54 mg/dL 7-21 H NITROGEN (BEAKER) (test code = 354) CREATININE 1.87 mg/dL 0.57-1.25 H (BEAKER) (test code = 358) GLUCOSE RANDOM 242 mg/dL 70-105 H (BEAKER) (test code = 652) CALCIUM (BEAKER) 8.2 mg/dL 8.4-10.2 L (test code = 697) EGFR (BEAKER) 38 Interpretatio n of eGFR (test code = mL/min/1.73 values Stage De scription 1092) sq m Result G1 Hillary l or high >=90 G2 Mildly decreased 60-89 G3a Mildl y to moderately 45-5 9 G3b Moderately to s everely 30-44 G4 Severl y decreased 15-29 G5 Kidney failure <15Reported eGF R is based on the CKD-EPI 2020 equation that d oes not use a race coefficientEsti mated GFR is not as accur ate as Creatinine Siobhan rob in predicting glom erular filtration rate . Estimated GFR is not appl icable for dialysis patien ts Wireworker Supervisor ID - [id number] 21:40:48 Test Item Value Reference Range Interpretation Comments MAGNESIUM (BEAKER) (test code = 2.3 mg/dL 1.6-2.6 627) Wireworker Supervisor ID - AAHAMIDPOCT-GLUCOSE [id number] 16:19:19 Test Item Value Reference Range Interpretation Comments POC-GLUCOSE METER 222 mg/dL 70-110 H : TESTED A T [facility] 6720 (BEAKER) (test code = DOUGLAS Melissa [facility], 1538) 79[address]: Wireworker Supervisor/Techni josafat ID = [id number] for Of Triston dixon [id number] 14:15:48 Test Item Value Reference Range Interpretation Comments MAGNESIUM (BEAKER) 2.0 mg/dL 1.6-2.6 Specimen slightly (test code = 627) hemolyzed Wireworker Supervisor ID - AAHAMIDBASIC METABOLIC [id number] 14:15:48 Test Item Value Reference Range Interpretation Comments SODIUM (BEAKER) 129 meq/L 136-145 L (test code = 381) POTASSIUM 4.1 meq/L 3.5-5.1 Specimen slight ly (BEAKER) (test hemolyzed code = 379) CHLORIDE (BEAKER) 93 meq/L 98-107 L (test code = 382) CO2 (BEAKER) 22 meq/L 22-29 (test code = 355) BLOOD UREA 52 mg/dL 7-21 H NITROGEN (BEAKER) (test code = 354) CREATININE 1.86 mg/dL 0.57-1.25 H Specimen slight ly (BEAKER) (test hemolyzed code = 358) GLUCOSE RANDOM 251 mg/dL 70-105 H (BEAKER) (test code = 652) CALCIUM (BEAKER) 8.0 mg/dL 8.4-10.2 L (test code = 697) EGFR (BEAKER) 38 Interpretatio n of eGFR (test code = mL/min/1.73 values Stage D escription 1092) sq m Result G1 Hillary l or high >=90 G2 Mildly decreased 60-89 G3a Mildl y to moderately 45-5 9 G3b Moderately to s everely 30-44 G4 Severl y decreased 15-29 G5 Kidney failure <15Reported eGF R is based on the CKD-EPI 2020 equation that d oes not use a race coefficientEsti mated GFR is not as accur ate as Creatinine Siobhan rivas in predicting glom erular filtration rate . Estimated GFR is not appl icable for dialysis patien ts Wireworker Supervisor ID - AAHAMIDLACTIC ACID, [id number] 14:02:04 Test Item Value Reference Range Interpretation Comments LACTATE BLOOD VENOUS (2) (BEAKER) 1.14 mmol/L 0.50-2.00 (test code = 2872) Wireworker Supervisor ID - AAHAMIDOXYGEN SATURATION, [id number] 13:22:19 Test Item Value Reference Range Interpretation Comments O2 SATURATION (MEASURED) (BEAKER) 72.1 % (test code = 1455) POCT-GLUCOSE [id number] 11:20:24 Test Item Value Reference Range Interpretation Comments POC-GLUCOSE METER 158 mg/dL 70-110 H : TESTED A T [facility] 6720 (BEAKER) (test code = D[place]GLAS CID [place], 1538) [address]: Wireworker Supervisor/Techni josafat ID = [id number] for ROSANGELA CELESTE [id number] 10:06:58 Test Item Value Reference Range Interpretation Comments PARTIAL THROMBOPLASTIN TIME 65.3 seconds 22.5-36.0 H (BEAKER) (test code = 760) POCT-GLUCOSE [id number] 09:47:23 Test Item Value Reference Range Interpretation Comments POC-GLUCOSE METER 97 mg/dL 70-110 : TESTED A T [facility] 6720 (BEAKER) (test code = [place], 1538) [address]: Wireworker Supervisor/Techni josafat ID = [id number] for OffTriston cardenas [id number] 01:30:03 Test Item Value Reference Range Interpretation Comments PHOSPHORUS (BEAKER) (test code = 4.3 mg/dL 2.3-4.7 604) Wireworker Supervisor ID - [id number] 01:30:02 Test Item Value Reference Range Interpretation Comments MAGNESIUM (BEAKER) (test code = 2.0 mg/dL 1.6-2.6 627) Wireworker Supervisor ID - BSBASIC METABOLIC [id number] 01:30:01 Test Item Value Reference Range Interpretation Comments SODIUM (BEAKER) 129 meq/L 136-145 L (test code = 381) POTASSIUM 4.0 meq/L 3.5-5.1 (BEAKER) (test code = 379) CHLORIDE (BEAKER) 93 meq/L 98-107 L (test code = 382) CO2 (BEAKER) 25 meq/L 22-29 (test code = 355) BLOOD UREA 54 mg/dL 7-21 H NITROGEN (BEAKER) (test code = 354) CREATININE 1.76 mg/dL 0.57-1.25 H (BEAKER) (test code = 358) GLUCOSE RANDOM 169 mg/dL 70-105 H (BEAKER) (test code = 652) CALCIUM (BEAKER) 8.0 mg/dL 8.4-10.2 L (test code = 697) EGFR (BEAKER) 41 Interpretatio n of eGFR (test code = mL/min/1.73 values Stage De scription 1092) sq m Result G1 Hillary l or high >=90 G2 Mildly decreased 60-89 G3a Mildl y to moderately 45-5 9 G3b Moderately to s everely 30-44 G4 Severl y decreased 15-29 G5 Kidney failure <15Reported eGF R is based on the CKD-EPI 2020 equation that d oes not use a race coefficientEsti mated GFR is not as accur ate as Creatinine Siobhan rivas in predicting glom erular filtration rate . Estimated GFR is not appl icable for dialysis patien ts Wireworker Supervisor ID - [id number] 01:26:02 Test Item Value Reference Range Interpretation Comments PARTIAL THROMBOPLASTIN TIME 91.1 seconds 22.5-36.0 H (BEAKER) (test code = 760) CBC W/PLT COUNT & AUTO [id number] 01:18:43 Test Item Value Reference Range Interpretation Comments WHITE BLOOD CELL COUNT (BEAKER) 15.3 K/ L 3.5-10.5 H (test code = 775) RED BLOOD CELL COUNT (BEAKER) 2.75 M/ L 4.63-6.08 L (test code = 761) HEMOGLOBIN (BEAKER) (test code = 7.5 GM/DL 13.7-17.5 L 410) HEMATOCRIT (BEAKER) (test code = 24.2 % 40.1-51.0 L 411) MEAN CORPUSCULAR VOLUME (BEAKER) 88 fL 79-92 (test code = 753) MEAN CORPUSCULAR HEMOGLOBIN 27.3 pg 25.7-32.2 (BEAKER) (test code = 751) MEAN CORPUSCULAR HEMOGLOBIN CONC 31.0 GM/DL 32.3-36.5 L (BEAKER) (test code = 752) RED CELL DISTRIBUTION WIDTH 21.7 % 11.6-14.4 H (BEAKER) (test code = 412) PLATELET COUNT (BEAKER) (test 289 K/CU MM 150-450 code = 756) MEAN PLATELET VOLUME (BEAKER) 9.0 fL 9.4-12.4 L (test code = 754) NUCLEATED RED BLOOD CELLS 1 /100 WBC 0-0 H (BEAKER) (test code = 413) NEUTROPHILS RELATIVE PERCENT 84 % (BEAKER) (test code = 429) LYMPHOCYTES RELATIVE PERCENT 7 % (BEAKER) (test code = 430) MONOCYTES RELATIVE PERCENT 4 % (BEAKER) (test code = 431) EOSINOPHILS RELATIVE PERCENT 2 % (BEAKER) (test code = 432) BASOPHILS RELATIVE PERCENT 1 % (BEAKER) (test code = 437) NEUTROPHILS ABSOLUTE COUNT 12.79 K/ L 1.78-5.38 H (BEAKER) (test code = 670) LYMPHOCYTES ABSOLUTE COUNT 1.09 K/ L 1.32-3.57 L (BEAKER) (test code = 414) MONOCYTES ABSOLUTE COUNT (BEAKER) 0.53 K/ L 0.30-0.82 (test code = 415) EOSINOPHILS ABSOLUTE COUNT 0.35 K/ L 0.04-0.54 (BEAKER) (test code = 416) BASOPHILS ABSOLUTE COUNT (BEAKER) 0.08 K/ L 0.01-0.08 (test code = 417) IMMATURE GRANULOCYTES-RELATIVE 3.10 % 0.00-1.00 H PERCENT (BEAKER) (test code = 2801) POCT-GLUCOSE [id number] 22:00:10 Test Item Value Reference Range Interpretation Comments POC-GLUCOSE METER 143 mg/dL 70-110 H : TESTED A T [facility] 6720 (BEAKER) (test code = [place] CID [place], 1538) 22295: Wireworker Supervisor/Techni josafat ID = [id number] for UNERFUSSER, AND STEPHANIE [id number] 18:23:49 Test Item Value Reference Range Interpretation Comments MAGNESIUM (BEAKER) (test code = 2.2 mg/dL 1.6-2.6 627) Wireworker Supervisor ID - MMBASIC METABOLIC [id number] 18:23:48 Test Item Value Reference Range Interpretation Comments SODIUM (BEAKER) 131 meq/L 136-145 L (test code = 381) POTASSIUM 4.4 meq/L 3.5-5.1 (BEAKER) (test code = 379) CHLORIDE (BEAKER) 92 meq/L 98-107 L (test code = 382) CO2 (BEAKER) 29 meq/L 22-29 (test code = 355) BLOOD UREA 53 mg/dL 7-21 H NITROGEN (BEAKER) (test code = 354) CREATININE 1.78 mg/dL 0.57-1.25 H (BEAKER) (test code = 358) GLUCOSE RANDOM 152 mg/dL 70-105 H (BEAKER) (test code = 652) CALCIUM (BEAKER) 8.6 mg/dL 8.4-10.2 (test code = 697) EGFR (BEAKER) 41 Interpretatio n of eGFR (test code = mL/min/1.73 values Stage De scription 1092) sq m Result G1 Hillary l or high >=90 G2 Mildly decreased 60-89 G3a Mildl y to moderately 45-5 9 G3b Moderately to s everely 30-44 G4 Severl y decreased 15-29 G5 Kidney failure <15Reported eGF R is based on the CKD-EPI 1 equation that d oes not use a race coefficientEsti mated GFR is not as accur ate as Creatinine Siobhan rob in predicting glom erular filtration rate . Estimated GFR is not appl icable for dialysis patien ts Wireworker Supervisor ID - [id number] 18:05:28 Test Item Value Reference Range Interpretation Comments PARTIAL THROMBOPLASTIN TIME 62.2 seconds 22.5-36.0 H (BEAKER) (test code = 760) POCT-GLUCOSE [id number] 16:26:36 Test Item Value Reference Range Interpretation Comments POC-GLUCOSE METER 176 mg/dL 70-110 H : TESTED A T [facility] 6720 (BEAKER) (test code = [facility], 1538) 443[address]: Wireworker Supervisor/Techni josafat ID = [id number] for CECILIA KHALIL POCT-GLUCOSE [id number] 11:23:22 Test Item Value Reference Range Interpretation Comments POC-GLUCOSE METER 157 mg/dL 70-110 H : TESTED A T [facility] 6720 (BEAKER) (test code = [facility], 1538) 42141: Wireworker Supervisor/Techni josafat ID = [id number] for CECILIA KHALIL [id number] 08:05:57 Test Item Value Reference Range Interpretation Comments MAGNESIUM (BEAKER) (test code = 2.5 mg/dL 1.6-2.6 627) Wireworker Supervisor ID - BSBASIC METABOLIC [id number] 08:05:56 Test Item Value Reference Range Interpretation Comments SODIUM (BEAKER) 131 meq/L 136-145 L (test code = 381) POTASSIUM 4.3 meq/L 3.5-5.1 (BEAKER) (test code = 379) CHLORIDE (BEAKER) 92 meq/L 98-107 L (test code = 382) CO2 (BEAKER) 27 meq/L 22-29 (test code = 355) BLOOD UREA 56 mg/dL 7-21 H NITROGEN (BEAKER) (test code = 354) CREATININE 1.67 mg/dL 0.57-1.25 H (BEAKER) (test code = 358) GLUCOSE RANDOM 144 mg/dL 70-105 H (BEAKER) (test code = 652) CALCIUM (BEAKER) 8.5 mg/dL 8.4-10.2 (test code = 697) EGFR (BEAKER) 44 Interpretati on of eGFR (test code = mL/min/1.73 values Stage De scription 1092) sq m Result G1 Hillary l or high >=90 G2 Mildly decreased 60-89 G3a Mildl y to moderately 45-5 9 G3b Moderately to s everely 30-44 G4 Severl y decreased 15-29 G5 Kidney failure <15Reported eGF R is based on the CKD-EPI 2020 equation that d oes not use a race coefficientEsti mated GFR is not as accur ate as Creatinine Siobhan rob in predicting glom erular filtration rate . Estimated GFR is not appl icable for dialysis patien ts Wireworker Supervisor ID - [id number] 08:04:21 Test Item Value Reference Range Interpretation Comments PARTIAL THROMBOPLASTIN TIME 46.5 seconds 22.5-36.0 H (BEAKER) (test code = 760) POCT-GLUCOSE [id number] 07:40:54 Test Item Value Reference Range Interpretation Comments POC-GLUCOSE METER 139 mg/dL 70-110 H : TESTED A T [facility] 6720 (BEAKER) (test code = DOUGLAS Peña [facility], 1538) 21430: Wireworker Supervisor/Techni josafat ID = [id number] for CECILIA KHALIL [id number] 04:15:22 Test Item Value Reference Range Interpretation Comments PHOSPHORUS (BEAKER) (test code = 3.9 mg/dL 2.3-4.7 604) Wireworker Supervisor ID - [id number] 04:15:21 Test Item Value Reference Range Interpretation Comments MAGNESIUM (BEAKER) (test code = 1.8 mg/dL 1.6-2.6 627) Wireworker Supervisor ID - BSBASIC METABOLIC [id number] 04:15:20 Test Item Value Reference Range Interpretation Comments SODIUM (BEAKER) 128 meq/L 136-145 L (test code = 381) POTASSIUM 3.8 meq/L 3.5-5.1 (BEAKER) (test code = 379) CHLORIDE (BEAKER) 91 meq/L 98-107 L (test code = 382) CO2 (BEAKER) 25 meq/L 22-29 (test code = 355) BLOOD UREA 53 mg/dL 7-21 H NITROGEN (BEAKER) (test code = 354) CREATININE 1.63 mg/dL 0.57-1.25 H (BEAKER) (test code = 358) GLUCOSE RANDOM 168 mg/dL 70-105 H (BEAKER) (test code = 652) CALCIUM (BEAKER) 8.2 mg/dL 8.4-10.2 L (test code = 697) EGFR (BEAKER) 45 Interpretatio n of eGFR (test code = mL/min/1.73 values Stage De scription 1092) sq m Result G1 Hillary l or high >=90 G2 Mildly decreased 60-89 G3a Mildl y to moderately 45-5 9 G3b Moderately to s everely 30-44 G4 Severl y decreased 15-29 G5 Kidne y failure <15Reported eGF R is based on the CKD-EPI 2020 equation that d oes not use a race coefficientEsti mated GFR is not as accur ate as Creatinine Siobhan rivas in predicting glom erular filtration rate . Estimated GFR is not appl icable for dialysis patien ts Wireworker Supervisor ID - BSCBC W/PLT COUNT & AUTO [id number] 03:50:01 Test Item Value Reference Range Interpretation Comments WHITE BLOOD CELL COUNT (BEAKER) 14.3 K/ L 3.5-10.5 H (test code = 775) RED BLOOD CELL COUNT (BEAKER) 2.93 M/ L 4.63-6.08 L (test code = 761) HEMOGLOBIN (BEAKER) (test code = 7.9 GM/DL 13.7-17.5 L 410) HEMATOCRIT (BEAKER) (test code = 25.2 % 40.1-51.0 L 411) MEAN CORPUSCULAR VOLUME (BEAKER) 86 fL 79-92 (test code = 753) MEAN CORPUSCULAR HEMOGLOBIN 27.0 pg 25.7-32.2 (BEAKER) (test code = 751) MEAN CORPUSCULAR HEMOGLOBIN CONC 31.3 GM/DL 32.3-36.5 L (BEAKER) (test code = 752) RED CELL DISTRIBUTION WIDTH 20.9 % 11.6-14.4 H (BEAKER) (test code = 412) PLATELET COUNT (BEAKER) (test 271 K/CU MM 150-450 code = 756) MEAN PLATELET VOLUME (BEAKER) 8.5 fL 9.4-12.4 L (test code = 754) NUCLEATED RED BLOOD CELLS 1 /100 WBC 0-0 H (BEAKER) (test code = 413) NEUTROPHILS RELATIVE PERCENT 84 % (BEAKER) (test code = 429) LYMPHOCYTES RELATIVE PERCENT 6 % (BEAKER) (test code = 430) MONOCYTES RELATIVE PERCENT 3 % (BEAKER) (test code = 431) EOSINOPHILS RELATIVE PERCENT 3 % (BEAKER) (test code = 432) BASOPHILS RELATIVE PERCENT 1 % (BEAKER) (test code = 437) NEUTROPHILS ABSOLUTE COUNT 11.96 K/ L 1.78-5.38 H (BEAKER) (test code = 670) LYMPHOCYTES ABSOLUTE COUNT 0.81 K/ L 1.32-3.57 L (BEAKER) (test code = 414) MONOCYTES ABSOLUTE COUNT (BEAKER) 0.47 K/ L 0.30-0.82 (test code = 415) EOSINOPHILS ABSOLUTE COUNT 0.43 K/ L 0.04-0.54 (BEAKER) (test code = 416) BASOPHILS ABSOLUTE COUNT (BEAKER) 0.09 K/ L 0.01-0.08 H (test code = 417) IMMATURE GRANULOCYTES-RELATIVE 3.80 % 0.00-1.00 H PERCENT (BEAKER) (test code = 2801) HEPATIC FUNCTION [id number] 20:51:45 Test Item Value Reference Range Interpretation Comments TOTAL PROTEIN (BEAKER) (test code = 5.5 gm/dL 6.0-8.3 L 770) ALBUMIN (BEAKER) (test code = 1145) 2.2 g/dL 3.5-5.0 L BILIRUBIN TOTAL (BEAKER) (test code 0.9 mg/dL 0.2-1.2 = 377) BILIRUBIN DIRECT (BEAKER) (test 0.6 mg/dL 0.1-0.5 H code = 706) ALKALINE PHOSPHATASE (BEAKER) (test 102 U/L 40-150 code = 346) AST (SGOT) (BEAKER) (test code = 48 U/L 5-34 H 353) ALT (SGPT) (BEAKER) (test code = 29 U/L 6-55 347) Wireworker Supervisor ID - [id number] 20:51:44 Test Item Value Reference Range Interpretation Comments MAGNESIUM (BEAKER) (test code = 2.0 mg/dL 1.6-2.6 627) Wireworker Supervisor ID - BSBASIC METABOLIC [id number] 20:51:43 Test Item Value Reference Range Interpretation Comments SODIUM (BEAKER) 130 meq/L 136-145 L (test code = 381) POTASSIUM 3.9 meq/L 3.5-5.1 (BEAKER) (test code = 379) CHLORIDE (BEAKER) 92 meq/L 98-107 L (test code = 382) CO2 (BEAKER) 26 meq/L 22-29 (test code = 355) BLOOD UREA 56 mg/dL 7-21 H NITROGEN (BEAKER) (test code = 354) CREATININE 1.63 mg/dL 0.57-1.25 H (BEAKER) (test code = 358) GLUCOSE RANDOM 206 mg/dL 70-105 H (BEAKER) (test code = 652) CALCIUM (BEAKER) 8.0 mg/dL 8.4-10.2 L (test code = 697) EGFR (BEAKER) 45 Interpretatio n of eGFR (test code = mL/min/1.73 values Stage De scription 1092) sq m Result G1 Hillary l or high >=90 G2 Mildly decreased 60-89 G3a Mildl y to moderately 45-5 9 G3b Moderately to s everely 30-44 G4 Severl y decreased 15-29 G5 Kidney failure <15Reported eGF R is based on the CKD-EPI 2021 equation that d oes not use a race coefficientEsti mated GFR is not as accur ate as Creatinine Siobhan rivas in predicting glom erular filtration rate . Estimated GFR is not appl icable for dialysis patien ts Wireworker Supervisor ID - BSPOCT-GLUCOSE [id number] 18:40:56 Test Item Value Reference Range Interpretation Comments POC-GLUCOSE METER 159 mg/dL 70-110 H : TESTED A T [facility] 6720 (BEAKER) (test code = DOUGLAS Peña [place], 1538) [id number]: Wireworker Supervisor/Techni josafat ID = [id number] for CECILIA KHALIL POCT-GLUCOSE [id number] 11:20:46 Test Item Value Reference Range Interpretation Comments POC-GLUCOSE METER 169 mg/dL 70-110 H : TESTED A T [facility] 6720 (BEAKER) (test code = DOUGLAS Peña [facility], 1538) 283[address]: Wireworker Supervisor/Techni josafat ID = [id number] for CECILIA KHALIL [id number] 09:44:10 Test Item Value Reference Range Interpretation Comments MAGNESIUM (BEAKER) (test code = 2.1 mg/dL 1.6-2.6 627) Wireworker Supervisor ID - MARIOBASIC METABOLIC [id number] 09:44:09 Test Item Value Reference Range Interpretation Comments SODIUM (BEAKER) 132 meq/L 136-145 L (test code = 381) POTASSIUM 4.2 meq/L 3.5-5.1 (BEAKER) (test code = 379) CHLORIDE (BEAKER) 94 meq/L 98-107 L (test code = 382) CO2 (BEAKER) 30 meq/L 22-29 H (test code = 355) BLOOD UREA 58 mg/dL 7-21 H NITROGEN (BEAKER) (test code = 354) CREATININE 1.68 mg/dL 0.57-1.25 H (BEAKER) (test code = 358) GLUCOSE RANDOM 172 mg/dL 70-105 H (BEAKER) (test code = 652) CALCIUM (BEAKER) 8.5 mg/dL 8.4-10.2 (test code = 697) EGFR (BEAKER) 43 Interpretatio n of eGFR (test code = mL/min/1.73 values Stage De scription 1092) sq m Result G1 Hillary l or high >=90 G2 Mildly decreased 60-89 G3a Mildl y to moderately 45-5 9 G3b Moderately to s everely 30-44 G4 Severl y decreased 15-29 G5 Kidney failure <15Reported eGF R is based on the CKD-EPI 1 equation that d oes not use a race coefficientEsti mated GFR is not as accur ate as Creatinine Siobhan rivas in predicting glom erular filtration rate . Estimated GFR is not appl icable for dialysis patien ts Wireworker Supervisor ID - [id number] 09:33:48 Test Item Value Reference Range Interpretation Comments PARTIAL THROMBOPLASTIN TIME 53.7 seconds 22.5-36.0 H (JOLEEN) (test code = 760) POCT-GLUCOSE [id number] 09:14:37 Test Item Value Reference Range Interpretation Comments POC-GLUCOSE METER 172 mg/dL 70-110 H : TESTED A T BSC 6720 (JOLEEN) (test code = DOUGLAS Peña [facility], 1538) [id number]: Wireworker Supervisor/Techni josafat ID = [id number] for PA LMA, SHAAN RAD, CHEST, 1 VIEW, NON [id number] 07:11:00Reason for exam:- >hypoxiaShould this be performed at the bedside?->Yes [facility] : 1950 Sex: MFINAL REPORT RAD, CHEST, 1 VIEW, NON DEPT INDICATION: hypoxia COMPARISON: Prior day's exam FINDINGS: Portable frontal view of the chest. IMPRESSION: Support Lines: PICC tip overlies the atriocaval junction. IABP marker is 1.6 cm below the top of the aortic arch. Pacer device. Prior right sh oulder arthroplasty. Lungs and pleura: Decreased bilateral airspace opacities concerning for multifocal pneumonia versus multifocal edema. No significant pneumothorax. Heart and mediastinum: Stable contours. Stable surgical changes. Additional findings: None. Signed: Shree Holman Verified Date/Time: 12/29/2022 07:11:36 [id number] 03:09:59 Test Item Value Reference Range Interpretation Comments PARTIAL THROMBOPLASTIN TIME 69.6 seconds 22.5-36.0 H (BEAKER) (test code = 760) (CELLAVISION MANUAL DIFF)2022-12-29 02:43:47 Test Item Value Reference Range Interpretation Comments NEUTROPHILS - REL 84 % (CELLAVISION)(BEAKER) (test code = 2816) LYMPHOCYTES - REL 4 % (CELLAVISION)(BEAKER) (test code = 2817) MONOCYTES - REL 1 % (CELLAVISION)(BEAKER) (test code = 2818) EOSINOPHILS - REL 7 % (CELLAVISION)(BEAKER) (test code = 2819) METAMYELOCYTES - REL 1 % 0-0 H (CELLAVISION)(BEAKER) (test code = 2821) MYELOCYTES - REL 3 % 0-0 H (CELLAVISION)(BEAKER) (test code = 2822) NEUTROPHILS - ABS 12.10 K/ul 1.78-5.38 H (CELLAVISION)(BEAKER) (test code = 2830) LYMPHOCYTES - ABS 0.58 K/ul 1.32-3.57 L (CELLAVISION)(BEAKER) (test code = 2831) MONOCYTES - ABS 0.14 K/uL 0.30-0.82 L (CELLAVISION)(BEAKER) (test code = 2832) EOSINOPHILS - ABS 1.01 K/uL 0.04-0.54 H (CELLAVISION)(BEAKER) (test code = 2834) METAMYELOCYTES - ABS 0.14 K/uL 0.00-0.00 H (CELLAVISION)(BEAKER) (test code = 2836) MYELOCYTES-ABS 0.43 K/uL 0.00-0.00 H (CELLAVISION)(BEAKER) (test code = 2837) TOTAL COUNTED (BEAKER) (test code 100 = 1351) MANUAL NRBC PER 100 CELLS (BEAKER) 1 /100 WBC 0-0 H (test code = 1353) WBC MORPHOLOGY (BEAKER) (test code Normal = 487) PLT MORPHOLOGY (BEAKER) (test code Normal = 486) POLYCHROMATOPHILLIC RBCS(BEAKER) 1+ few (test code = 478) ANISOCYTOSIS (BEAKER) (test code = 1+ few 961) ARTIFACT (CELLAVISION)(BEAKER) Present (test code = 3432) PLATELET CONCENTRATION Adequate (CELLAVISION)(BEAKER) (test code = 3438) Wireworker Supervisor ID - Mary Grace Fatou comments: Slide comments:CBC W/PLT COUNT & AUTO [id number] 02:43:45 Test Item Value Reference Range Interpretation Comments WHITE BLOOD CELL COUNT (BEAKER) 14.4 K/ L 3.5-10.5 H (test code = 775) RED BLOOD CELL COUNT (BEAKER) 2.81 M/ L 4.63-6.08 L (test code = 761) HEMOGLOBIN (BEAKER) (test code = 7.6 GM/DL 13.7-17.5 L 410) HEMATOCRIT (BEAKER) (test code = 24.0 % 40.1-51.0 L 411) MEAN CORPUSCULAR VOLUME (BEAKER) 85 fL 79-92 (test code = 753) MEAN CORPUSCULAR HEMOGLOBIN 27.0 pg 25.7-32.2 (BEAKER) (test code = 751) MEAN CORPUSCULAR HEMOGLOBIN CONC 31.7 GM/DL 32.3-36.5 L (BEAKER) (test code = 752) RED CELL DISTRIBUTION WIDTH 20.2 % 11.6-14.4 H (BEAKER) (test code = 412) PLATELET COUNT (BEAKER) (test 295 K/CU MM 150-450 code = 756) MEAN PLATELET VOLUME (BEAKER) 8.6 fL 9.4-12.4 L (test code = 754) NUCLEATED RED BLOOD CELLS 2 /100 WBC 0-0 H (BEAKER) (test code = 413) [id number] 02:34:39 Test Item Value Reference Range Interpretation Comments MAGNESIUM (BEAKER) (test code = 2.3 mg/dL 1.6-2.6 627) Wireworker Supervisor ID - [id number] 02:34:39 Test Item Value Reference Range Interpretation Comments PHOSPHORUS (BEAKER) (test code = 3.7 mg/dL 2.3-4.7 604) Wireworker Supervisor ID - BSBASIC METABOLIC [id number] 02:34:38 Test Item Value Reference Range Interpretation Comments SODIUM (BEAKER) 130 meq/L 136-145 L (test code = 381) POTASSIUM 4.1 meq/L 3.5-5.1 (BEAKER) (test code = 379) CHLORIDE (BEAKER) 93 meq/L 98-107 L (test code = 382) CO2 (BEAKER) 29 meq/L 22-29 (test code = 355) BLOOD UREA 63 mg/dL 7-21 H NITROGEN (BEAKER) (test code = 354) CREATININE 1.69 mg/dL 0.57-1.25 H (BEAKER) (test code = 358) GLUCOSE RANDOM 117 mg/dL 70-105 H (BEAKER) (test code = 652) CALCIUM (BEAKER) 8.2 mg/dL 8.4-10.2 L (test code = 697) EGFR (BEAKER) 43 Interpretatio n of eGFR (test code = mL/min/1.73 values Stage De scription 1092) sq m Result G1 Hillary l or high >=90 G2 Mildly decreased 60-89 G3a Mildl y to moderately 45-5 9 G3b Moderately to s everely 30-44 G4 Sever ly decreased 15-29 G5 Kidney failure <15Repo rted eGFR is based on the CKD-EPI 2020 equation t hat does not use a race coefficientEsti mated GFR is not as accur ate as Creatinine Siobhan rob in predicting glom erular filtration rate . Estimated GFR is not appl icable for dialysis patien ts Wireworker Supervisor ID - BSLactic Acid, [id number] 02:27:34 Test Item Value Reference Range Interpretation Comments Lactate, Art (test code = 0.8 mmol/L 0.5-2.0 4) CLARI (test code = CLARI) Wireworker Supervisor ID - BS Lab Interpretation (test Normal code = 64012-8) [facility], [id number] 02:27:34 Test Item Value Reference Range Interpretation Comments LACTATE BLOOD ARTERIAL (2) 0.8 mmol/L 0.5-2.0 (BEAKER) (test code = 2874) Wireworker Supervisor ID - BSPOCT-GLUCOSE [id number] 02:17:42 Test Item Value Reference Range Interpretation Comments POC-GLUCOSE METER 120 mg/dL 70-110 H : [facility] (BEAKER) (test code = DOUGLAS Peña [facility], 1538) [address]: Wireworker Supervisor/Techni josafat ID = [id number] for JOSE L GARCIA POCT-GLUCOSE [id number] 21:51:52 Test Item Value Reference Range Interpretation Comments POC-GLUCOSE METER 55 mg/dL 70-110 L : Notified RN/MD: TEST[facility] (BEAKER) (test code = [facility] 67[address] [facility] 1538) [facility], 770 30: Wireworker Supervisor/Techni josafat ID = [id number] for TIFFANIE BECKMAN [id number] 20:28:38 Test Item Value Reference Range Interpretation Comments PARTIAL THROMBOPLASTIN TIME 73.5 seconds 22.5-36.0 H (BEAKER) (test code = 760) [id number] 20:15:37 Test Item Value Reference Range Interpretation Comments MAGNESIUM (BEAKER) (test code = 1.9 mg/dL 1.6-2.6 627) Wireworker Supervisor ID - BSBASIC METABOLIC [id number] 20:15:36 Test Item Value Reference Range Interpretation Comments SODIUM (BEAKER) 131 meq/L 136-145 L (test code = 381) POTASSIUM 3.8 meq/L 3.5-5.1 (BEAKER) (test code = 379) CHLORIDE (BEAKER) 94 meq/L 98-107 L (test code = 382) CO2 (BEAKER) 26 meq/L 22-29 (test code = 355) BLOOD UREA 64 mg/dL 7-21 H NITROGEN (BEAKER) (test code = 354) CREATININE 1.67 mg/dL 0.57-1.25 H (BEAKER) (test code = 358) GLUCOSE RANDOM 131 mg/dL 70-105 H (BEAKER) (test code = 652) CALCIUM (BEAKER) 8.1 mg/dL 8.4-10.2 L (test code = 697) EGFR (BEAKER) 44 Interpretatio n of eGFR (test code = mL/min/1.73 values Stage De scription 1092) sq m Result G1 Hillary l or high >=90 G2 Mildly decreased 60-89 G3a Mildl y to moderately 45-5 9 G3b Moderately to s everely 30-44 G4 Severl y decreased 15-29 G5 Kidney failure <15Reported eGF R is based on the CKD-EPI 2020 equation that d oes not use a race coefficientEsti mated GFR is not as accur ate as Creatinine Siobhan rivas in predicting glom erular filtration rate . Estimated GFR is not appl icable for dialysis patien ts Wireworker Supervisor ID - [id number] 19:22:24 Test Item Value Reference Range Interpretation Comments PARTIAL THROMBOPLASTIN TIME > seconds 22.5-36.0 HH (BEAKER) (test code = 760) POCT-GLUCOSE [id number] 18:26:53 Test Item Value Reference Range Interpretation Comments POC-GLUCOSE METER 221 mg/dL 70-110 H : TESTED A T [facility] 6720 (BEAKER) (test code = DOUGLAS CID [place], 1538) [address]: Wireworker Supervisor/Techni josafat ID = [id number] for MARY JANE WOODS [id number] 13:00:41 Test Item Value Reference Range Interpretation Comments PROCALCITONIN (BEAKER) (test code 0.20 ng/mL <0.05 H = 3036) SEPSIS RISK (ng/mL)Low: 0.05-0.50Intermediate: 0.51-2.00High: >=2.01MAGNESIUM 2022-12-28 12:32:55 Test Item Value Reference Range Interpretation Comments MAGNESIUM (BEAKER) (test code = 2.1 mg/dL 1.6-2.6 627) Wireworker Supervisor ID - MARIOBASIC METABOLIC [id number] 12:32:54 Test Item Value Reference Range Interpretation Comments SODIUM (BEAKER) 132 meq/L 136-145 L (test code = 381) POTASSIUM 4.2 meq/L 3.5-5.1 (BEAKER) (test code = 379) CHLORIDE (BEAKER) 94 meq/L 98-107 L (test code = 382) CO2 (BEAKER) 29 meq/L 22-29 (test code = 355) BLOOD UREA 66 mg/dL 7-21 H NITROGEN (BEAKER) (test code = 354) CREATININE 1.79 mg/dL 0.57-1.25 H (BEAKER) (test code = 358) GLUCOSE RANDOM 206 mg/dL 70-105 H (BEAKER) (test code = 652) CALCIUM (BEAKER) 8.4 mg/dL 8.4-10.2 (test code = 697) EGFR (BEAKER) 40 Interpretatio n of eGFR (test code = mL/min/1.73 values Stage D escription 1092) sq m Result G1 Hillary l or high >=90 G2 Mildly decreased 60-89 G3a Mildl y to moderately 45-5 9 G3b Moderately to s everely 30-44 G4 Severl y decreased 15-29 G5 Kidney failure <15Reported eGF R is based on the CKD-EPI 2020 equation that d oes not use a race coefficientEsti mated GFR is not as accur ate as Creatinine Siobhan rob in predicting glom erular filtration rate . Estimated GFR is not appl icable for dialysis patien ts Wireworker Supervisor ID - MARIOPOCT-GLUCOSE [id number] 11:44:05 Test Item Value Reference Range Interpretation Comments POC-GLUCOSE METER 186 mg/dL 70-110 H : TESTED A T [facility] 6720 (Berry White) (test code = DOUGLAS Peña [facility], 1538) [address]: Wireworker Supervisor/Techni josafat ID = [id number] for JOSE ONTIVEROS [id number] 09:55:54 Test Item Value Reference Range Interpretation Comments PARTIAL THROMBOPLASTIN TIME 57.7 seconds 22.5-36.0 H (BEAKER) (test code = 760) [id number] 08:21:28 Test Item Value Reference Range Interpretation Comments PARTIAL THROMBOPLASTIN TIME 190.3 seconds 22.5-36.0 HH (BEAKER) (test code = 760) (CELLAVISION MANUAL DIFF)2022-12-28 06:02:44 Test Item Value Reference Range Interpretation Comments NEUTROPHILS - REL 86 % (CELLAVISION)(BEAKER) (test code = 2816) LYMPHOCYTES - REL 2 % (CELLAVISION)(BEAKER) (test code = 2817) MONOCYTES - REL 1 % (CELLAVISION)(BEAKER) (test code = 2818) EOSINOPHILS - REL 6 % (CELLAVISION)(BEAKER) (test code = 2819) BASOPHILS - REL 1 % (CELLAVISION)(BEAKER) (test code = 2820) METAMYELOCYTES - REL 1 % 0-0 H (CELLAVISION)(BEAKER) (test code = 2821) MYELOCYTES - REL 3 % 0-0 H (CELLAVISION)(BEAKER) (test code = 2822) NEUTROPHILS - ABS 11.87 K/ul 1.78-5.38 H (CELLAVISION)(BEAKER) (test code = 2830) LYMPHOCYTES - ABS 0.28 K/ul 1.32-3.57 L (CELLAVISION)(BEAKER) (test code = 2831) MONOCYTES - ABS 0.14 K/uL 0.30-0.82 L (CELLAVISION)(BEAKER) (test code = 2832) EOSINOPHILS - ABS 0.83 K/uL 0.04-0.54 H (CELLAVISION)(BEAKER) (test code = 2834) BASOPHILS - ABS 0.14 K/uL 0.01-0.08 H (CELLAVISION)(BEAKER) (test code = 2835) METAMYELOCYTES - ABS 0.14 K/uL 0.00-0.00 H (CELLAVISION)(BEAKER) (test code = 2836) MYELOCYTES-ABS 0.41 K/uL 0.00-0.00 H (CELLAVISION)(BEAKER) (test code = 2837) TOTAL COUNTED (BEAKER) (test code 100 = 1351) MANUAL NRBC PER 100 CELLS (BEAKER) 6 /100 WBC 0-0 H (test code = 1353) WBC MORPHOLOGY (BEAKER) (test code Normal = 487) PLT MORPHOLOGY (BEAKER) (test code Normal = 486) POLYCHROMATOPHILLIC RBCS(BEAKER) 1+ few (test code = 478) HYPOCHROMIA (BEAKER) (test code = 1+ few 963) ANISOCYTOSIS (BEAKER) (test code = 1+ few 961) ARTIFACT (CELLAVISION)(BEAKER) Present (test code = 3432) PLATELET CONCENTRATION Adequate (CELLAVISION)(BEAKER) (test code = 3438) Wireworker Supervisor ID - Mary Grace Lainez comments: Slide comments:CBC W/PLT COUNT & AUTO [id number] 06:02:43 Test Item Value Reference Range Interpretation Comments WHITE BLOOD CELL COUNT (BEAKER) 13.8 K/ L 3.5-10.5 H (test code = 775) RED BLOOD CELL COUNT (BEAKER) 2.92 M/ L 4.63-6.08 L (test code = 761) HEMOGLOBIN (BEAKER) (test code = 7.6 GM/DL 13.7-17.5 L 410) HEMATOCRIT (BEAKER) (test code = 24.2 % 40.1-51.0 L 411) MEAN CORPUSCULAR VOLUME (BEAKER) 83 fL 79-92 (test code = 753) MEAN CORPUSCULAR HEMOGLOBIN 26.0 pg 25.7-32.2 (BEAKER) (test code = 751) MEAN CORPUSCULAR HEMOGLOBIN CONC 31.4 GM/DL 32.3-36.5 L (BEAKER) (test code = 752) RED CELL DISTRIBUTION WIDTH 19.8 % 11.6-14.4 H (BEAKER) (test code = 412) PLATELET COUNT (BEAKER) (test 354 K/CU MM 150-450 code = 756) MEAN PLATELET VOLUME (BEAKER) 8.7 fL 9.4-12.4 L (test code = 754) NUCLEATED RED BLOOD CELLS 3 /100 WBC 0-0 H (BEAKER) (test code = 413) POCT-GLUCOSE [id number] 05:51:08 Test Item Value Reference Range Interpretation Comments POC-GLUCOSE METER 96 mg/dL 70-110 : TESTED A T [facility] 6720 (BEAKER) (test code = DOUGLAS Peña [facility] [place], 1538) [address]: Wireworker Supervisor/Techni josafat ID = [id number] for MSIB I, MNCEDISI RAD, CHEST, 1 VIEW, NON [id number] 05:42:00Reason for exam:- >hypoxiaShould this be performed at the bedside?->Yes [facility] 1950 Sex: MFINAL REPORT RAD, CHEST, 1 VIEW, NON DEPT INDICATION: hypoxia COMPARISON: Prior day's exam FINDINGS: Portable frontal view of the chest. IMPRESSION: Support Lines: Intra-aortic balloon pumpmarker is 1.6 cm caudal to the superior margin of the aortic arch. Stable right subclavian AICD and left PICC. Lungs and pleura: Unchanged patchy bilateral airspace opacities and small left pleural effusion. No pneumothorax. Heart and mediastinum: Stable contours. Additional findings: None. Signed: Yuliya Alleneport Verified Date/Time: 12/28/2022 05:42:28 HEPATIC FUNCTION [id number] 05:28:50 Test Item Value Reference Range Interpretation Comments TOTAL PROTEIN (BEAKER) (test code = 5.5 gm/dL 6.0-8.3 L 770) ALBUMIN (BEAKER) (test code = 1145) 2.3 g/dL 3.5-5.0 L BILIRUBIN TOTAL (BEAKER) (test code 1.0 mg/dL 0.2-1.2 = 377) BILIRUBIN DIRECT (BEAKER) (test 0.7 mg/dL 0.1-0.5 H code = 706) ALKALINE PHOSPHATASE (BEAKER) (test 85 U/L 40-150 code = 346) AST (SGOT) (BEAKER) (test code = 50 U/L 5-34 H 353) ALT (SGPT) (BEAKER) (test code = 29 U/L 6-55 347) Wireworker Supervisor ID - [id number] 05:28:49 Test Item Value Reference Range Interpretation Comments PHOSPHORUS (BEAKER) (test code = 4.1 mg/dL 2.3-4.7 604) Wireworker Supervisor ID - MARIOBASIC METABOLIC [id number] 05:28:48 Test Item Value Reference Range Interpretation Comments SODIUM (BEAKER) 133 meq/L 136-145 L (test code = 381) POTASSIUM 3.7 meq/L 3.5-5.1 (BEAKER) (test code = 379) CHLORIDE (BEAKER) 95 meq/L 98-107 L (test code = 382) CO2 (BEAKER) 29 meq/L 22-29 (test code = 355) BLOOD UREA 69 mg/dL 7-21 H NITROGEN (BEAKER) (test code = 354) CREATININE 1.71 mg/dL 0.57-1.25 H (BEAKER) (test code = 358) GLUCOSE RANDOM 95 mg/dL 70-105 (BEAKER) (test code = 652) CALCIUM (BEAKER) 8.4 mg/dL 8.4-10.2 (test code = 697) EGFR (BEAKER) 43 Interpretatio n of eGFR (test code = mL/min/1.73 values Stage De scription 1092) sq m Result G1 Hillary l or high >=90 G2 Mildly decreased 60-89 G3a Mildl y to moderately 45-5 9 G3b Moderately to s everely 30-44 G4 Severl y decreased 15-29 G5 Kidney failure <15Reported eGF R is based on the CKD-EPI 2020 equation that d oes not use a race coefficientEsti mated GFR is not as accur ate as Creatinine Siobhan rob in predicting glom erular filtration rate . Estimated GFR is not appl icable for dialysis patien ts Wireworker Supervisor ID - [id number] 05:28:48 Test Item Value Reference Range Interpretation Comments MAGNESIUM (BEAKER) (test code = 2.0 mg/dL 1.6-2.6 627) Wireworker Supervisor ID - MARIOLACTIC ACID, [id number] 05:19:25 Test Item Value Reference Range Interpretation Comments LACTATE BLOOD ARTERIAL (2) 0.8 mmol/L 0.5-2.0 (BEAKER) (test code = 2874) Wireworker Supervisor ID - MARIOPOCT-GLUCOSE [id number] 00:10:47 Test Item Value Reference Range Interpretation Comments POC-GLUCOSE METER 120 mg/dL 70-110 H : [facility] (BE[facility]ER) (test code = DOUGLAS CID [place], 1538) [address]: Wireworker Supervisor/Techni josafat ID = [id number] for MS IBI, MNCEDISI [id number] 20:28:42 Test Item Value Reference Range Interpretation Comments MAGNESIUM (BEAKER) (test code = 2.1 mg/dL 1.6-2.6 627) Wireworker Supervisor ID - BSBASIC METABOLIC [id number] 20:28:41 Test Item Value Reference Range Interpretation Comments SODIUM (BEAKER) 132 meq/L 136-145 L (test code = 381) POTASSIUM 4.0 meq/L 3.5-5.1 (BEAKER) (test code = 379) CHLORIDE (BEAKER) 94 meq/L 98-107 L (test code = 382) CO2 (BEAKER) 27 meq/L 22-29 (test code = 355) BLOOD UREA 72 mg/dL 7-21 H NITROGEN (BEAKER) (test code = 354) CREATININE 1.76 mg/dL 0.57-1.25 H (BEAKER) (test code = 358) GLUCOSE RANDOM 158 mg/dL 70-105 H (BEAKER) (test code = 652) CALCIUM (BEAKER) 8.2 mg/dL 8.4-10.2 L (test code = 697) EGFR (BEAKER) 41 Interpretatio n of eGFR (test code = mL/min/1.73 values Stage De scription 1092) sq m Result G1 Hillary l or high >=90 G2 Mildly decreased 60-89 G3a Mildl y to moderately 45-5 9 G3b Moderately to s everely 30-44 G4 Severl y decreased 15-29 G5 Kidney failure <15Reported eGF R is based on the CKD-EPI 2020 equation that d oes not use a race coefficientEsti mated GFR is not as accur ate as Creatinine Siobhan rivas in predicting glom erular filtration rate . Estimated GFR is not appl icable for dialysis patien ts Wireworker Supervisor ID - BSPOCT-GLUCOSE [id number] 20:21:31 Test Item Value Reference Range Interpretation Comments POC-GLUCOSE METER 191 mg/dL 70-110 H : TESTED A T [facility] 6720 (BEZipments) (test code = DOUGLAS CID [place], 1538) [address]: Wireworker Supervisor/Techni josafat ID = [id number] for Co ghanshyam, Raquel POCT-GLUCOSE [id number] 17:39:33 Test Item Value Reference Range Interpretation Comments POC-GLUCOSE METER 157 mg/dL 70-110 H : TESTED A T [facility] 6720 (BEAKER) (test code = DOUGLAS Peña [facility], 1538) 53332: Wireworker Supervisor/Techni josafat ID = [id number] for Donna Melo RAD, CHEST, 1 VIEW, NON [id number] 13:40:00Reason for exam:->post picc line insertionShould this be performed at the bedside?->Yes [facility] : 1950 Sex: MFINAL REPORT RAD, CHEST, 1 VIEW, NON DEPT INDICATION: post picc line insertion COMPARISON: Prior day's exam FINDINGS: Portable frontal view of the chest. IMPRESSION: Support Lines: PICC tipoverlies the atriocaval junction. Sheath tip overlies the SVC. IABP marker is not seen on current radiograph. Pacer device. Prior right shoulder arthroplasty. Lungs and pleura: Decreased bilateral airspace opacities concerning for multifocal pneumonia versus multifocal edema. No significant pneumothorax. Heart and mediastinum: Stable contours. Stable surgical changes. Additional findings: None. Signed: Shree Holman Verified Date/Time: 12/27/2022 13:40:25 Reading Location: [address] Reading Room [id number] 12:08:05 Test Item Value Reference Range Interpretation Comments PARTIAL THROMBOPLASTIN TIME 170.2 seconds 22.5-36.0 HH (BEAKER) (test code = 760) [id number] 11:59:02 Test Item Value Reference Range Interpretation Comments MAGNESIUM (BEAKER) (test code = 2.4 mg/dL 1.6-2.6 627) Wireworker Supervisor ID Arabella NEWBY WBASIC METABOLIC [id number] 11:59:01 Test Item Value Reference Range Interpretation Comments SODIUM (BEAKER) 132 meq/L 136-145 L (test code = 381) POTASSIUM 3.7 meq/L 3.5-5.1 (BEAKER) (test code = 379) CHLORIDE (BEAKER) 92 meq/L 98-107 L (test code = 382) CO2 (BEAKER) 30 meq/L 22-29 H (test code = 355) BLOOD UREA 71 mg/dL 7-21 H NITROGEN (BEAKER) (test code = 354) CREATININE 1.92 mg/dL 0.57-1.25 H (BEAKER) (test code = 358) GLUCOSE RANDOM 235 mg/dL 70-105 H (BEAKER) (test code = 652) CALCIUM (BEAKER) 8.6 mg/dL 8.4-10.2 (test code = 697) EGFR (BEAKER) 37 Interpretatio n of eGFR (test code = mL/min/1.73 values Stage De scription 1092) sq m Result G1 Hillary l or high >=90 G2 Mildly decreased 60-89 G3a Mildl y to moderately 45-5 9 G3b Moderately to s everely 30-44 G4 Severl y decreased 15-29 G5 Kidney failure <15Reported eGF R is based on the CKD-EPI 2020 equation that d oes not use a race coefficientEsti mated GFR is not as accur ate as Creatinine Siobhan rivas in predicting glom erular filtration rate . Estimated GFR is not appl icable for dialysis patien ts Wireworker Supervisor ID Arabella NEWBY WPOCT-GLUCOSE [id number] 11:01:05 Test Item Value Reference Range Interpretation Comments POC-GLUCOSE METER 222 mg/dL 70-110 H : TESTED A T [facility] 6720 (BEAKER) (test code = DOUGLAS CID [place], 1538) 22[address]: Wireworker Supervisor/Techni josafat ID = [id number] for Donna Melo POCT-GLUCOSE [id number] 08:14:15 Test Item Value Reference Range Interpretation Comments POC-GLUCOSE METER 145 mg/dL 70-110 H : TESTED A T [facility] 6720 (BEAKER) (test code = DOUGLAS CID [place], 1538) 31284: Wireworker Supervisor/Techni josafat ID = [id number] for Donna Melo RAD, CHEST, 1 VIEW, NON [id number] 07:00:00Reason for exam:- >hypoxiaShould this be performed at the bedside?->Yes [facility] : 1950 Sex: MFINAL REPORT RAD, CHEST, 1 VIEW, NON DEPT INDICATION: hypoxia COMPARISON: Prior day's exam FINDINGS: Portable frontal view of the chest. IMPRESSION: Support Lines: Sheath tip overlies the SVC. IABP marker is 1.2cm from the top of the aortic arch. Pacer device. Prior right shoulder arthropla sty. Lungs and pleura: Decreased bilateral airspace opacities concerning for multifocal pneumonia versus multifocal edema. No significant pneumothorax. Heart and mediastinum: Stable contours. Stable surgical changes. Additional findings: None. Signed: Shree Holman MDReport Verified Date/Time: 12/27/2022 07:00:31 (CELLAVISION MANUAL DIFF)2022-12-27 05:34:03 Test Item Value Reference Range Interpretation Comments NEUTROPHILS - REL 86 % (CELLAVISION)(BEAKER) (test code = 2816) LYMPHOCYTES - REL 4 % (CELLAVISION)(BEAKER) (test code = 2817) EOSINOPHILS - REL 3 % (CELLAVISION)(BEAKER) (test code = 2819) BASOPHILS - REL 1 % (CELLAVISION)(BEAKER) (test code = 2820) METAMYELOCYTES - REL 1 % 0-0 H (CELLAVISION)(BEAKER) (test code = 2821) MYELOCYTES - REL 2 % 0-0 H (CELLAVISION)(BEAKER) (test code = 2822) PROMYELOCYTES - REL 1 % 0-0 H (CELLAVSION)(BEAKER) (test code = 2825) BANDS - REL (CELLAVISION)(BEAKER) 2 % 0-10 (test code = 2826) NEUTROPHILS - ABS 12.90 K/ul 1.78-5.38 H (CELLAVISION)(BEAKER) (test code = 2830) LYMPHOCYTES - ABS 0.60 K/ul 1.32-3.57 L (CELLAVISION)(BEAKER) (test code = 2831) EOSINOPHILS - ABS 0.45 K/uL 0.04-0.54 (CELLAVISION)(BEAKER) (test code = 2834) BASOPHILS - ABS 0.15 K/uL 0.01-0.08 H (CELLAVISION)(BEAKER) (test code = 2835) METAMYELOCYTES - ABS 0.15 K/uL 0.00-0.00 H (CELLAVISION)(BEAKER) (test code = 2836) MYELOCYTES-ABS 0.30 K/uL 0.00-0.00 H (CELLAVISION)(BEAKER) (test code = 2837) PROMYELOCYTES - ABS 0.15 K/uL 0.00-0.00 H (CELLAVISION)(BEAKER) (test code = 2838) BANDS - ABS (CELLAVISION)(BEAKER) 0.30 K/uL 0.00-0.80 (test code = 2840) TOTAL COUNTED (BEAKER) (test code 100 = 1351) MANUAL NRBC PER 100 CELLS (BEAKER) 3 /100 WBC 0-0 H (test code = 1353) WBC MORPHOLOGY (BEAKER) (test code Normal = 487) PLT MORPHOLOGY (BEAKER) (test code Normal = 486) POLYCHROMATOPHILLIC RBCS(BEAKER) 3+ many (test code = 478) ANISOCYTOSIS (BEAKER) (test code = 1+ few 961) ARTIFACT (CELLAVISION)(BEAKER) Present (test code = 3432) PLATELET CONCENTRATION Adequate (CELLAVISION)(BEAKER) (test code = 3438) Wireworker Supervisor ID - Marj comments: Slide comments:CBC W/PLT COUNT & AUTO [id number] 05:34:02 Test Item Value Reference Range Interpretation Comments WHITE BLOOD CELL COUNT (BEAKER) 15.0 K/ L 3.5-10.5 H (test code = 775) RED BLOOD CELL COUNT (BEAKER) 3.12 M/ L 4.63-6.08 L (test code = 761) HEMOGLOBIN (BEAKER) (test code = 8.0 GM/DL 13.7-17.5 L 410) HEMATOCRIT (BEAKER) (test code = 25.3 % 40.1-51.0 L 411) MEAN CORPUSCULAR VOLUME (BEAKER) 81 fL 79-92 (test code = 753) MEAN CORPUSCULAR HEMOGLOBIN 25.6 pg 25.7-32.2 L (BEAKER) (test code = 751) MEAN CORPUSCULAR HEMOGLOBIN CONC 31.6 GM/DL 32.3-36.5 L (BEAKER) (test code = 752) RED CELL DISTRIBUTION WIDTH 19.7 % 11.6-14.4 H (BEAKER) (test code = 412) PLATELET COUNT (BEAKER) (test 352 K/CU MM 150-450 code = 756) MEAN PLATELET VOLUME (BEAKER) 8.9 fL 9.4-12.4 L (test code = 754) NUCLEATED RED BLOOD CELLS 2 /100 WBC 0-0 H (BEAKER) (test code = 413) [id number] 05:06:24 Test Item Value Reference Range Interpretation Comments MAGNESIUM (BEAKER) (test code = 2.1 mg/dL 1.6-2.6 627) Wireworker Supervisor ID - KEYONNA [id number] 05:06:24 Test Item Value Reference Range Interpretation Comments PHOSPHORUS (BEAKER) (test code = 3.6 mg/dL 2.3-4.7 604) Wireworker Supervisor ID - KEYONNA WBASIC METABOLIC [id number] 05:06:23 Test Item Value Reference Range Interpretation Comments SODIUM (BEAKER) 133 meq/L 136-145 L (test code = 381) POTASSIUM 3.6 meq/L 3.5-5.1 (BEAKER) (test code = 379) CHLORIDE (BEAKER) 92 meq/L 98-107 L (test code = 382) CO2 (BEAKER) 32 meq/L 22-29 H (test code = 355) BLOOD UREA 76 mg/dL 7-21 H NITROGEN (BEAKER) (test code = 354) CREATININE 1.98 mg/dL 0.57-1.25 H (BEAKER) (test code = 358) GLUCOSE RANDOM 135 mg/dL 70-105 H (BEAKER) (test code = 652) CALCIUM (BEAKER) 8.6 mg/dL 8.4-10.2 (test code = 697) EGFR (BEAKER) 36 Interpretatio n of eGFR (test code = mL/min/1.73 values Stage De scription 1092) sq m Result G1 Hillary l or high >=90 G2 Mildly decreased 60-89 G3a Mildl y to moderately 45- 59 G3b Moderately to s everely 30-44 G4 Severl y decreased 15-29 G5 Kidney failure <15Reported eGF R is based on the CKD-EPI 2020 equation that d oes not use a race coefficientEsti mated GFR is not as accur ate as Creatinine Siobhan rob in predicting glom erular filtration rate . Estimated GFR is not appl icable for dialysis patien ts Wireworker Supervisor ID - KEYONNA [id number] 04:50:23 Test Item Value Reference Range Interpretation Comments PARTIAL THROMBOPLASTIN TIME 78.0 seconds 22.5-36.0 H (BEAKER) (test code = 760) LACTIC ACID, [id number] 04:35:50 Test Item Value Reference Range Interpretation Comments LACTATE BLOOD ARTERIAL (2) 1.0 mmol/L 0.5-2.0 (BEAKER) (test code = 2874) Wireworker Supervisor ID - [id number] 20:39:06 Test Item Value Reference Range Interpretation Comments MAGNESIUM (BEAKER) (test code = 2.2 mg/dL 1.6-2.6 627) Wireworker Supervisor ID - BSBASIC METABOLIC [id number] 20:39:05 Test Item Value Reference Range Interpretation Comments SODIUM (BEAKER) 133 meq/L 136-145 L (test code = 381) POTASSIUM 3.8 meq/L 3.5-5.1 (BEAKER) (test code = 379) CHLORIDE (BEAKER) 93 meq/L 98-107 L (test code = 382) CO2 (BEAKER) 31 meq/L 22-29 H (test code = 355) BLOOD UREA 79 mg/dL 7-21 H NITROGEN (BEAKER) (test code = 354) CREATININE 2.08 mg/dL 0.57-1.25 H (BEAKER) (test code = 358) GLUCOSE RANDOM 213 mg/dL 70-105 H (BEAKER) (test code = 652) CALCIUM (BEAKER) 8.6 mg/dL 8.4-10.2 (test code = 697) EGFR (BEAKER) 34 Interpretatio n of eGFR (test code = mL/min/1.73 values Stage De scription 1092) sq m Result G1 Hillary l or high >=90 G2 Mildly decreased 60-89 G3a Mildl y to moderately 45-5 9 G3b Moderately to s everely 30-44 G4 Sever ly decreased 15-29 G5 Kidney failure <15Repo rted eGFR is based on the CKD-EPI 2020 equation t hat does not use a race coefficientEsti mated GFR is not as accur ate as Creatinine Siobhan rob in predicting glom erular filtration rate . Estimated GFR is not appl icable for dialysis patien ts Wireworker Supervisor ID - [id number] 20:24:43 Test Item Value Reference Range Interpretation Comments PARTIAL THROMBOPLASTIN TIME 57.7 seconds 22.5-36.0 H (BEAKER) (test code = 760) [id number] 18:12:53 Test Item Value Reference Range Interpretation Comments PARTIAL THROMBOPLASTIN TIME 158.5 seconds 22.5-36.0 HH (BEAKER) (test code = 760) POCT-GLUCOSE [id number] 16:22:09 Test Item Value Reference Range Interpretation Comments POC-GLUCOSE METER 198 mg/dL 70-110 H : TESTED A T [facility] 6720 (BEAKER) (test [facility], = 1538) [id number]: Wireworker Supervisor/Techni josafat ID = [id number] for TORR ALBA, DARLENE LACTIC ACID, [id number] 16:20:29 Test Item Value Reference Range Interpretation Comments LACTATE BLOOD VENOUS 1.15 mmol/L 0.50-2.00 Specime n slightly (2) (BEAKER) (test hemolyzed code = 2872) Wireworker Supervisor ID - DBOXYGEN SATURATION, [id number] 16:07:05 Test Item Value Reference Range Interpretation Comments O2 SATURATION (MEASURED) (BEAKER) 72.9 % (test code = 1455) ANG, REMOVAL OF TUNNELED CVC W/O [id number] 14:28:00Reason for exam:- >Removed OSH tunneled LIJ [facility] 1950 Sex: MFINAL REPORT CLINICAL HISTORY: Concern for infectious process. COMPARISON: None CONCRETE CARPENTER: Jimmie Richardson MD Asst.: eTmo Broderick MD ANESTHESIA: Local Lidocaine 1% MEDICATIONS:Please see nursing note. ESTIMATED BLOOD LOSS: <5 cc SAMPLE: None DEVICE:None. PROCEDURE: The procedure was explained in detail to the patient. Written and verbal consent was obtained. The upper chest, the catheter and skin surrounding the catheter were prepped and draped in the usual sterile fashion. The distal tunnel and the cuff area were anesthetized with 1% lidocaine. The retention sutures were cut andusing blunt dissection, the cuff of the catheter was freed and the catheter was removed in its entirety. Pressure was held at the venotomy site and hemostasis was easily obtained. A dry sterile dressing was applied. IMPRESSION: Successful removal of a left internal jugular tunneled central venous catheter. Signed: Jimmie Richardson MDReport Verified Date/Time: 12/26/2022 14:28:13 Reading Location: [facility] Radiology Reading Room [id number] 12:23:01 Test Item Value Reference Range Interpretation Comments MAGNESIUM (BEAKER) (test code = 2.1 mg/dL 1.6-2.6 627) Wireworker Supervisor ID - MARCOBASIC METABOLIC [id number] 12:23:00 Test Item Value Reference Range Interpretation Comments SODIUM (BEAKER) 134 meq/L 136-145 L (test code = 381) POTASSIUM 4.0 meq/L 3.5-5.1 (BEAKER) (test code = 379) CHLORIDE (BEAKER) 95 meq/L 98-107 L (test code = 382) CO2 (BEAKER) 30 meq/L 22-29 H (test code = 355) BLOOD UREA 82 mg/dL 7-21 H NITROGEN (BEAKER) (test code = 354) CREATININE 2.12 mg/dL 0.57-1.25 H (BEAKER) (test code = 358) GLUCOSE RANDOM 174 mg/dL 70-105 H (BEAKER) (test code = 652) CALCIUM (BEAKER) 8.6 mg/dL 8.4-10.2 (test code = 697) EGFR (BEAKER) 33 Interpretatio n of eGFR (test code = mL/min/1.73 values Stage De scription 1092) sq m Result G1 Hillary l or high >=90 G2 Mildly decreased 60-89 G3a Mildl y to moderately 45-5 9 G3b Moderately to s everely 30-44 G4 Severl y decreased 15-29 G5 Kidney failure <15Reported eGF R is based on the CKD-EPI 2020 equation that d oes not use a race coefficientEsti mated GFR is not as accur ate as Creatinine Siobhan rivas in predicting glom erular filtration rate . Estimated GFR is not appl icable for dialysis patien ts Wireworker Supervisor ID - MARCOPOCT-GLUCOSE [id number] 11:13:56 Test Item Value Reference Range Interpretation Comments POC-GLUCOSE METER 175 mg/dL 70-110 H : TESTED A T [facility] 6720 (BEAKER) (test code [facility], = 1538) [address]: Wireworker Supervisor/Techni josafat ID = [id number] for TAVON LE DARLENE [id number] 08:46:02 Test Item Value Reference Range Interpretation Comments PARTIAL THROMBOPLASTIN TIME 54.0 seconds 22.5-36.0 H (BEAKER) (test code = 760) POCT-GLUCOSE [id number] 07:38:01 Test Item Value Reference Range Interpretation Comments POC-GLUCOSE METER 126 mg/dL 70-110 H : TESTED A T [facility] 6720 (JOLEEN) (test code [facility], = 1538) 194[address]: Wireworker Supervisor/Techni josafat ID = [id number] for DARLENE FITZGERALD RAD, CHEST, 1 VIEW, NON [id number] 07:17:00Reason for exam:- >hypoxiaShould this be performed at the bedside?->Yes [facility] 1950 Sex: MFINAL REPORT RAD, CHEST, 1 VIEW, NON DEPT INDICATION: hypoxia COMPARISON: Prior day's exam FINDINGS: Portable frontal view of the chest. IMPRESSION: Support Lines: Hinkley-Pepe tip overlies the pulmonary outflow tract. IABP marker is 1.2cm from the top of the aortic arch. Pacer device. Prior right shoulder arthroplasty. Lungs and pleura: Unchanged bilateral airspace opacities concerning for multifocal pneumonia versus multifocal edema. No significant pneumothorax. Heart and mediastinum: Stable contours. Stable surgical changes. Additional findings: None. Signed: Shree Holman Verified Date/Time: 12/26/2022 07:17:28 [id number] 06:59:47 Test Item Value Reference Range Interpretation Comments PARTIAL THROMBOPLASTIN TIME 129.4 seconds 22.5-36.0 H (BEAKER) (test code = 760) (CELLAVISION MANUAL DIFF)2022-12-26 06:33:54 Test Item Value Reference Range Interpretation Comments NEUTROPHILS - REL 89 % (CELLAVISION)(BEAKER) (test code = 2816) LYMPHOCYTES - REL 2 % (CELLAVISION)(BEAKER) (test code = 2817) MONOCYTES - REL 1 % (CELLAVISION)(BEAKER) (test code = 2818) EOSINOPHILS - REL 4 % (CELLAVISION)(BEAKER) (test code = 2819) BASOPHILS - REL 1 % (CELLAVISION)(BEAKER) (test code = 2820) MYELOCYTES - REL 3 % 0-0 H (CELLAVISION)(BEAKER) (test code = 2822) NEUTROPHILS - ABS 12.37 K/ul 1.78-5.38 H (CELLAVISION)(BEAKER) (test code = 2830) LYMPHOCYTES - ABS 0.28 K/ul 1.32-3.57 L (CELLAVISION)(BEAKER) (test code = 2831) MONOCYTES - ABS 0.14 K/uL 0.30-0.82 L (CELLAVISION)(BEAKER) (test code = 2832) EOSINOPHILS - ABS 0.56 K/uL 0.04-0.54 H (CELLAVISION)(BEAKER) (test code = 2834) BASOPHILS - ABS 0.14 K/uL 0.01-0.08 H (CELLAVISION)(BEAKER) (test code = 2835) MYELOCYTES-ABS 0.42 K/uL 0.00-0.00 H (CELLAVISION)(BEAKER) (test code = 2837) TOTAL COUNTED (BEAKER) (test code 100 = 1351) MANUAL NRBC PER 100 CELLS (BEAKER) 4 /100 WBC 0-0 H (test code = 1353) PLT MORPHOLOGY (BEAKER) (test code Normal = 486) SMUDGE CELLS (BEAKER) (test code = Present 1371) POLYCHROMATOPHILLIC RBCS(BEAKER) 3+ many (test code = 478) HYPOCHROMIA (BEAKER) (test code = 1+ few 963) ANISOCYTOSIS (BEAKER) (test code = 1+ few 961) MICROCYTES (BEAKER) (test code = 1+ few 965) POIKILOCYTES (BEAKER) (test code = 1+ few 966) SPHEROCYTES (BEAKER) (test code = 1+ few 768) BASOPHILIC STIPPLING (BEAKER) Present (test code = 473) PLATELET CONCENTRATION Adequate (CELLAVISION)(BEAKER) (test code = 3438) Wireworker Supervisor ID - Marj comments: Slide comments:CBC W/PLT COUNT & AUTO [id number] 06:33:53 Test Item Value Reference Range Interpretation Comments WHITE BLOOD CELL COUNT (BEAKER) 13.9 K/ L 3.5-10.5 H (test code = 775) RED BLOOD CELL COUNT (BEAKER) 2.88 M/ L 4.63-6.08 L (test code = 761) HEMOGLOBIN (BEAKER) (test code = 7.6 GM/DL 13.7-17.5 L 410) HEMATOCRIT (BEAKER) (test code = 23.9 % 40.1-51.0 L 411) MEAN CORPUSCULAR VOLUME (BEAKER) 83 fL 79-92 (test code = 753) MEAN CORPUSCULAR HEMOGLOBIN 26.4 pg 25.7-32.2 (BEAKER) (test code = 751) MEAN CORPUSCULAR HEMOGLOBIN CONC 31.8 GM/DL 32.3-36.5 L (BEAKER) (test code = 752) RED CELL DISTRIBUTION WIDTH 19.5 % 11.6-14.4 H (BEAKER) (test code = 412) PLATELET COUNT (BEAKER) (test 361 K/CU MM 150-450 code = 756) MEAN PLATELET VOLUME (BEAKER) 9.2 fL 9.4-12.4 L (test code = 754) NUCLEATED RED BLOOD CELLS 2 /100 WBC 0-0 H (BEAKER) (test code = 413) [id number] 05:08:23 Test Item Value Reference Range Interpretation Comments PARTIAL THROMBOPLASTIN TIME 136.4 seconds 22.5-36.0 H (BEAKER) (test code = 760) [id number] 05:08:07 Test Item Value Reference Range Interpretation Comments PHOSPHORUS (BEAKER) (test code = 3.5 mg/dL 2.3-4.7 604) Wireworker Supervisor ID - MARCOBASIC METABOLIC [id number] 05:08:06 Test Item Value Reference Range Interpretation Comments SODIUM (BEAKER) 134 meq/L 136-145 L (test code = 381) POTASSIUM 4.3 meq/L 3.5-5.1 (BEAKER) (test code = 379) CHLORIDE (BEAKER) 95 meq/L 98-107 L (test code = 382) CO2 (BEAKER) 29 meq/L 22-29 (test code = 355) BLOOD UREA 88 mg/dL 7-21 H NITROGEN (BEAKER) (test code = 354) CREATININE 2.10 mg/dL 0.57-1.25 H (BEAKER) (test code = 358) GLUCOSE RANDOM 114 mg/dL 70-105 H (BEAKER) (test code = 652) CALCIUM (BEAKER) 8.6 mg/dL 8.4-10.2 (test code = 697) EGFR (BEAKER) 33 Interpretatio n of eGFR (test code = mL/min/1.73 values Stage De scription 1092) sq m Result G1 Norm al or high >=90 G2 Mildly decreased 60-89 G3a Mildl y to moderately 45-5 9 G3b Moderately to s everely 30-44 G4 Severl y decreased 15-29 G5 Kidne y failure <15Reported eGF R is based on the CKD-EPI 2020 equation that d oes not use a race coefficientEsti mated GFR is not as accur ate as Creatinine Siobhan rob in predicting glom erular filtration rate . Estimated GFR is not appl icable for dialysis patien ts Wireworker Supervisor ID - [id number] 05:08:06 Test Item Value Reference Range Interpretation Comments MAGNESIUM (BEAKER) (test code = 2.1 mg/dL 1.6-2.6 627) Wireworker Supervisor ID - MARCOLACTIC ACID, [id number] 05:03:45 Test Item Value Reference Range Interpretation Comments LACTATE BLOOD ARTERIAL (2) 0.9 mmol/L 0.5-2.0 (BEAKER) (test code = 8254) Wireworker Supervisor ID - DBDIGOXIN [id number] 04:57:24 Test Item Value Reference Range Interpretation Comments DIGOXIN LEVEL (BEAKER) (test code 0.68 ng/mL 0.80-2.00 L = 669) Wireworker Supervisor ID - MARCOHEPATIC FUNCTION [id number] 00:15:26 Test Item Value Reference Range Interpretation Comments TOTAL PROTEIN (BEAKER) (test code = 5.6 gm/dL 6.0-8.3 L 770) ALBUMIN (BEAKER) (test code = 1145) 2.2 g/dL 3.5-5.0 L BILIRUBIN TOTAL (BEAKER) (test code 0.9 mg/dL 0.2-1.2 = 377) BILIRUBIN DIRECT (BEAKER) (test 0.7 mg/dL 0.1-0.5 H code = 706) ALKALINE PHOSPHATASE (BEAKER) (test 100 U/L 40-150 code = 346) AST (SGOT) (BEAKER) (test code = 44 U/L 5-34 H 353) ALT (SGPT) (BEAKER) (test code = 25 U/L 6-55 347) Wireworker Supervisor ID - DBPOCT-GLUCOSE [id number] 23:58:22 Test Item Value Reference Range Interpretation Comments POC-GLUCOSE METER 142 mg/dL 70-110 H : Pt. refu sed rpt tst: (BEAKER) (test code = TESTED AT [facility] 3319 7998) [facility], [id number]: Wireworker Supervisor/Techni josafat ID = [id number] for YE (V), WEIPING [id number] 18:22:01 Test Item Value Reference Range Interpretation Comments MAGNESIUM (BEAKER) (test code = 2.4 mg/dL 1.6-2.6 627) Wireworker Supervisor ID - DBBASIC METABOLIC [id number] 18:22:00 Test Item Value Reference Range Interpretation Comments SODIUM (BEAKER) 135 meq/L 136-145 L (test code = 381) POTASSIUM 3.8 meq/L 3.5-5.1 (BEAKER) (test code = 379) CHLORIDE (BEAKER) 96 meq/L 98-107 L (test code = 382) CO2 (BEAKER) 27 meq/L 22-29 (test code = 355) BLOOD UREA 91 mg/dL 7-21 H NITROGEN (BEAKER) (test code = 354) CREATININE 2.20 mg/dL 0.57-1.25 H (BEAKER) (test code = 358) GLUCOSE RANDOM 153 mg/dL 70-105 H (BEAKER) (test code = 652) CALCIUM (BEAKER) 8.5 mg/dL 8.4-10.2 (test code = 697) EGFR (BEAKER) 31 Interpretatio n of eGFR (test code = mL/min/1.73 values Stage De scription 1092) sq m Result G1 Hillary l or high >=90 G2 Mildly decreased 60-89 G3a Mildl y to moderately 45-5 9 G3b Moderately to s everely 30-44 G4 Severl y decreased 15-29 G5 Kidney failure <15Reported eGF R is based on the CKD-EPI 2020 equation that d oes not use a race coefficientEsti mated GFR is not as accur ate as Creatinine Siobhan rob in predicting glom erular filtration rate . Estimated GFR is not appl icable for dialysis patien ts Wireworker Supervisor ID - DBPOCT-GLUCOSE [id number] 16:19:23 Test Item Value Reference Range Interpretation Comments POC-GLUCOSE METER 170 mg/dL 70-110 H : TESTED A T [facility] 6720 (BEAKER) (test code = IBETHDHIRAJ Peña [facility], 1538) [address]: Wireworker Supervisor/Techni josafat ID = [id number] for Donna Melo [id number] 12:36:15 Test Item Value Reference Range Interpretation Comments MAGNESIUM (BEAKER) (test code = 2.0 mg/dL 1.6-2.6 627) Wireworker Supervisor ID - JSBASIC METABOLIC [id number] 12:36:14 Test Item Value Reference Range Interpretation Comments SODIUM (BEAKER) 132 meq/L 136-145 L (test code = 381) POTASSIUM 3.8 meq/L 3.5-5.1 (BEAKER) (test code = 379) CHLORIDE (BEAKER) 96 meq/L 98-107 L (test code = 382) CO2 (BEAKER) 26 meq/L 22-29 (test code = 355) BLOOD UREA 93 mg/dL 7-21 H NITROGEN (BEAKER) (test code = 354) CREATININE 2.17 mg/dL 0.57-1.25 H (BEAKER) (test code = 358) GLUCOSE RANDOM 213 mg/dL 70-105 H (BEAKER) (test code = 652) CALCIUM (BEAKER) 8.5 mg/dL 8.4-10.2 (test code = 697) EGFR ([facility]) 32 Interpretatio n of eGFR (test code = mL/min/1.73 values Stage De scription 1092) sq m Result G1 Hillary l or high >=90 G2 Mildly decreased 60-89 G3a Mildl y to moderately 45-5 9 G3b Moderately to s everely 30-44 G4 Severl y decreased 15-29 G5 Kidney failure <15Reported eGF R is based on the CKD-EPI 2020 equation that d oes not use a race coefficientEsti mated GFR is not as accur ate as Creatinine Siobhan rob in predicting glom erular filtration rate . Estimated GFR is not appl icable for dialysis patien ts Wireworker Supervisor ID - JSPOCT-GLUCOSE [id number] 11:31:48 Test Item Value Reference Range Interpretation Comments POC-GLUCOSE METER 204 mg/dL 70-110 H : TESTED A T [facility] 6720 [facility] (test code = [facility] Melissa [facility], 1538) [address]: Wireworker Supervisor/Techni josafat ID = [id number] for AC COS, NAIN POCT-GLUCOSE [id number] 07:53:56 Test Item Value Reference Range Interpretation Comments POC-GLUCOSE METER 133 mg/dL 70-110 H : TESTED A T [facility] 6720 (Berry White) (test code = [facility] Melissa [facility], 1538) [address]: Wireworker Supervisor/Techni josafat ID = [id number] for Nydia Donna echevarria RAD, CHEST, 1 VIEW, NON [id number] 07:29:00Reason for exam:- >hypoxiaShould this be performed at the bedside?->Yes [facility] : 1950 Sex: MFINAL REPORT RAD, CHEST, 1 VIEW, NON DEPT INDICATION: hypoxia COMPARISON: Prior day's exam FINDINGS: Portable frontal view of the chest. IMPRESSION: Support Lines: Hinkley-Pepe tip overlies the pulmonary outflow tract. IABP marker is 1.1cm from the top of the aortic arch. Pacer device. Prior right shoulder arthroplasty. Lungs and pleura: Unchanged bilateral airspace opacities concerning for multifocal pneumonia versus multifocal edema. No significant pneumothorax. Heart and mediastinum: Stable contours. Stable surgical changes. Additional findings: None. Signed: Shree Holman MDReport Verified Date/Time: 12/25/2022 07:29:11 (CELLAVISION MANUAL DIFF)2022-12-25 06:18:56 Test Item Value Reference Range Interpretation Comments NEUTROPHILS - REL 82 % (CELLAVISION)(BEAKER) (test code = 2816) LYMPHOCYTES - REL 2 % (CELLAVISION)(BEAKER) (test code = 2817) MONOCYTES - REL 3 % (CELLAVISION)(BEAKER) (test code = 2818) EOSINOPHILS - REL 10 % (CELLAVISION)(BEAKER) (test code = 2819) METAMYELOCYTES - REL 2 % 0-0 H (CELLAVISION)(BEAKER) (test code = 2821) MYELOCYTES - REL 1 % 0-0 H (CELLAVISION)(BEAKER) (test code = 2822) NEUTROPHILS - ABS 11.48 K/ul 1.78-5.38 H (CELLAVISION)(BEAKER) (test code = 2830) LYMPHOCYTES - ABS 0.28 K/ul 1.32-3.57 L (CELLAVISION)(BEAKER) (test code = 2831) MONOCYTES - ABS 0.42 K/uL 0.30-0.82 (CELLAVISION)(BEAKER) (test code = 2832) EOSINOPHILS - ABS 1.40 K/uL 0.04-0.54 H (CELLAVISION)(BEAKER) (test code = 2834) METAMYELOCYTES - ABS 0.28 K/uL 0.00-0.00 H (CELLAVISION)(BEAKER) (test code = 2836) MYELOCYTES-ABS 0.14 K/uL 0.00-0.00 H (CELLAVISION)(BEAKER) (test code = 2837) TOTAL COUNTED (BEAKER) (test code 100 = 1351) MANUAL NRBC PER 100 CELLS (BEAKER) 1 /100 WBC 0-0 H (test code = 1353) WBC MORPHOLOGY (BEAKER) (test code Normal = 487) PLT MORPHOLOGY (BEAKER) (test code Normal = 486) POLYCHROMATOPHILLIC RBCS(BEAKER) 1+ few (test code = 478) ANISOCYTOSIS (BEAKER) (test code = 1+ few 961) ARTIFACT (CELLAVISION)(BEAKER) Present (test code = 3432) PLATELET CONCENTRATION Adequate (CELLAVISION)(BEAKER) (test code = 3438) Wireworker Supervisor ID - Mary Grace Lainez comments: Slide comments:CBC W/PLT COUNT & AUTO [id number] 06:18:55 Test Item Value Reference Range Interpretation Comments WHITE BLOOD CELL COUNT (BEAKER) 14.0 K/ L 3.5-10.5 H (test code = 775) RED BLOOD CELL COUNT (BEAKER) 2.83 M/ L 4.63-6.08 L (test code = 761) HEMOGLOBIN (BEAKER) (test code = 7.5 GM/DL 13.7-17.5 L 410) HEMATOCRIT (BEAKER) (test code = 23.1 % 40.1-51.0 L 411) MEAN CORPUSCULAR VOLUME (BEAKER) 82 fL 79-92 (test code = 753) MEAN CORPUSCULAR HEMOGLOBIN 26.5 pg 25.7-32.2 (BEAKER) (test code = 751) MEAN CORPUSCULAR HEMOGLOBIN CONC 32.5 GM/DL 32.3-36.5 (BEAKER) (test code = 752) RED CELL DISTRIBUTION WIDTH 19.4 % 11.6-14.4 H (BEAKER) (test code = 412) PLATELET COUNT (BEAKER) (test 351 K/CU MM 150-450 code = 756) MEAN PLATELET VOLUME (BEAKER) 9.1 fL 9.4-12.4 L (test code = 754) NUCLEATED RED BLOOD CELLS 1 /100 WBC 0-0 H (BEAKER) (test code = 413) [id number] 05:33:55 Test Item Value Reference Range Interpretation Comments MAGNESIUM (BEAKER) (test code = 2.1 mg/dL 1.6-2.6 627) Wireworker Supervisor ID - [id number] 05:33:55 Test Item Value Reference Range Interpretation Comments PHOSPHORUS (BEAKER) (test code = 4.1 mg/dL 2.3-4.7 604) Wireworker Supervisor ID - RMBASIC METABOLIC [id number] 05:33:54 Test Item Value Reference Range Interpretation Comments SODIUM (BEAKER) 133 meq/L 136-145 L (test code = 381) POTASSIUM 3.5 meq/L 3.5-5.1 (BEAKER) (test code = 379) CHLORIDE (BEAKER) 96 meq/L 98-107 L (test code = 382) CO2 (BEAKER) 25 meq/L 22-29 (test code = 355) BLOOD UREA 97 mg/dL 7-21 H NITROGEN (BEAKER) (test code = 354) CREATININE 2.26 mg/dL 0.57-1.25 H (BEAKER) (test code = 358) GLUCOSE RANDOM 132 mg/dL 70-105 H (BEAKER) (test code = 652) CALCIUM (BEAKER) 8.5 mg/dL 8.4-10.2 (test code = 697) EGFR (BEAKER) 30 Interpretatio n of eGFR (test code = mL/min/1.73 values Stage De scription 1092) sq m Result G1 Hillary l or high >=90 G2 Mildly decreased 60-89 G3a Mildl y to moderately 45-5 9 G3b Moderately to s everely 30-44 G4 Severl y decreased 15-29 G5 Kidney failure <15Reported eGF R is based on the CKD-EPI 2020 equation that d oes not use a race coefficientEsti mated GFR is not as accur ate as Creatinine Siobhan rivas in predicting glom erular filtration rate . Estimated GFR i s not applicable for dialysis patients Wireworker Supervisor ID - RMOXYGEN SATURATION, [id number] 04:56:23 Test Item Value Reference Range Interpretation Comments O2 SATURATION (MEASURED) (BEAKER) 78.3 % (test code = 1455) [id number] 04:16:28 Test Item Value Reference Range Interpretation Comments PARTIAL THROMBOPLASTIN TIME 89.8 seconds 22.5-36.0 H (BEAKER) (test code = 760) LACTIC ACID, [id number] 04:10:47 Test Item Value Reference Range Interpretation Comments LACTATE BLOOD ARTERIAL (2) 0.7 mmol/L 0.5-2.0 (BEAKER) (test code = 2874) Wireworker Supervisor ID - RMBASIC METABOLIC [id number] 20:16:08 Test Item Value Reference Range Interpretation Comments SODIUM (BEAKER) 133 meq/L 136-145 L (test code = 381) POTASSIUM 3.4 meq/L 3.5-5.1 L (BEAKER) (test code = 379) CHLORIDE (BEAKER) 96 meq/L 98-107 L (test code = 382) CO2 (BEAKER) 24 meq/L 22-29 (test code = 355) BLOOD UREA 99 mg/dL 7-21 H NITROGEN (BEAKER) (test code = 354) CREATININE 2.33 mg/dL 0.57-1.25 H (BEAKER) (test code = 358) GLUCOSE RANDOM 108 mg/dL 70-105 H (BEAKER) (test code = 652) CALCIUM (BEAKER) 8.4 mg/dL 8.4-10.2 (test code = 697) EGFR (BEAKER) 29 Interpretatio n of eGFR (test code = mL/min/1.73 values Stage De scription 1092) sq m Result G1 Hillary l or high >=90 G2 Mildly decreased 60-89 G3a Mildl y to moderately 45-5 9 G3b Moderately to s everely 30-44 G4 Severl y decreased 15-29 G5 Kidney failure <15Reported eGF R is based on the CKD-EPI 2021 equation that d oes not use a race coefficientEsti mated GFR is not as accur ate as Creatinine Siobhan rivas in predicting glom erular filtration rate . Estimated GFR is not appl icable for dialysis patien ts Wireworker Supervisor ID - [id number] 20:07:34 Test Item Value Reference Range Interpretation Comments MAGNESIUM (BEAKER) (test code = 2.2 mg/dL 1.6-2.6 627) Wireworker Supervisor ID - [id number] 17:22:40 Test Item Value Reference Range Interpretation Comments PARTIAL THROMBOPLASTIN TIME 92.4 seconds 22.5-36.0 H (BEAKER) (test code = 760) POCT-GLUCOSE [id number] 16:09:31 Test Item Value Reference Range Interpretation Comments POC-GLUCOSE METER 123 mg/dL 70-110 H : TESTED A T [facility] 6720 (BEAKER) (test code = DOUGLAS Peña CID [place], [id number]) [id number]: Wireworker Supervisor/Techni josafat ID = [id number] for RE YES, RAMESH BASIC METABOLIC [id number] 11:33:13 Test Item Value Reference Range Interpretation Comments SODIUM (BEAKER) 131 meq/L 136-145 L (test code = 381) POTASSIUM 3.9 meq/L 3.5-5.1 (BEAKER) (test code = 379) CHLORIDE (BEAKER) 95 meq/L 98-107 L (test code = 382) CO2 (BEAKER) 25 meq/L 22-29 (test code = 355) BLOOD UREA 102 mg/dL 7-21 H NITROGEN (BEAKER) (test code = 354) CREATININE 2.37 mg/dL 0.57-1.25 H (BEAKER) (test code = 358) GLUCOSE RANDOM 156 mg/dL 70-105 H (BEAKER) (test code = 652) CALCIUM (BEAKER) 8.6 mg/dL 8.4-10.2 (test code = 697) EGFR (BEAKER) 29 Interpretati on of eGFR (test code = mL/min/1.73 values Stage De scription 1092) sq m Result G1 Hillary l or high >=90 G2 Mildly decreased 60-89 G3a Mildl y to moderately 45-5 9 G3b Moderately to s everely 30-44 G4 Severl y decreased 15-29 G5 Kidney failure <15Reported eGF R is based on the CKD-EPI 2021 equation that d oes not use a race coefficientEsti mated GFR is not as accur ate as Creatinine Siobhan rivas in predicting glom erular filtration rate . Estimated GFR is not appl icable for dialysis patien ts Wireworker Supervisor ID - CYNTHIA [id number] 11:32:53 Test Item Value Reference Range Interpretation Comments MAGNESIUM (BEAKER) (test code = 2.2 mg/dL 1.6-2.6 627) Wireworker Supervisor ID - CYNTHIA GPOCT-GLUCOSE [id number] 11:32:35 Test Item Value Reference Range Interpretation Comments POC-GLUCOSE METER 154 mg/dL 70-110 H : TESTED A T [facility] 6720 (JOLEEN) (test code = DOUGLAS Peña [facility], 1538) [id number]: Wireworker Supervisor/Techni josafat ID = [id number] for RE YES, RAMESH [id number] 11:31:46 Test Item Value Reference Range Interpretation Comments PARTIAL THROMBOPLASTIN TIME 86.1 seconds 22.5-36.0 H (LAURAAKER) (test code = 760) POCT-GLUCOSE [id number] 07:54:35 Test Item Value Reference Range Interpretation Comments POC-GLUCOSE METER 139 mg/dL 70-110 H : TESTED A T [facility] 6720 (JOLEEN) (test code = DOUGLAS Peña [facility], 1538) [address]: Wireworker Supervisor/Techni josafat ID = [id number] for RE YES, RAMESH RAD, CHEST, 1 VIEW, NON [id number] 07:02:00Reason for exam:- >hypoxiaShould this be performed at the bedside?->Yes [facility] : 1950 Sex: MFINAL REPORT RAD, CHEST, 1 VIEW, NON DEPT INDICATION: hypoxia COMPARISON: Prior day's exam FINDINGS: Portable frontal view of the chest. IMPRESSION: Support Lines: Hinkley-Pepe tip overlies the pulmonary outflow tract. IABP marker is 7.3 cm from the top of the aortic arch. Pacer device. Prior right shoulder arthroplasty. Lungs and pleura: Unchanged bilateral airspace opacities concerning for multifocal pneumonia versus multifocal edema. No significant pneumothorax. Heart and mediastinum: Stable contours. Stable surgical changes. Additional findings: None. Signed: Shree Holmaneport Verified Date/Time: 12/24/2022 07:02:40 (CELLAVISION MANUAL DIFF)2022-12-24 03:39:18 Test Item Value Reference Range Interpretation Comments NEUTROPHILS - REL 91 % (CELLAVISION)(BEAKER) (test code = 2816) LYMPHOCYTES - REL 2 % (CELLAVISION)(BEAKER) (test code = 2817) MONOCYTES - REL 1 % (CELLAVISION)(BEAKER) (test code = 2818) EOSINOPHILS - REL 4 % (CELLAVISION)(BEAKER) (test code = 2819) MYELOCYTES - REL 2 % 0-0 H (CELLAVISION)(BEAKER) (test code = 2822) NEUTROPHILS - ABS 12.47 K/ul 1.78-5.38 H (CELLAVISION)(BEAKER) (test code = 2830) LYMPHOCYTES - ABS 0.27 K/ul 1.32-3.57 L (CELLAVISION)(BEAKER) (test code = 2831) MONOCYTES - ABS 0.14 K/uL 0.30-0.82 L (CELLAVISION)(BEAKER) (test code = 2832) EOSINOPHILS - ABS 0.55 K/uL 0.04-0.54 H (CELLAVISION)(BEAKER) (test code = 2834) MYELOCYTES-ABS 0.27 K/uL 0.00-0.00 H (CELLAVISION)(BEAKER) (test code = 2837) TOTAL COUNTED (BEAKER) (test code 100 = 1351) WBC MORPHOLOGY (BEAKER) (test code Normal = 487) PLT MORPHOLOGY (BEAKER) (test code Normal = 486) POLYCHROMATOPHILLIC RBCS(BEAKER) 1+ few (test code = 478) ANISOCYTOSIS (BEAKER) (test code = 1+ few 961) ARTIFACT (CELLAVISION)(BEAKER) Present (test code = 3432) PLATELET CONCENTRATION Adequate (CELLAVISION)(BEAKER) (test code = 3438) Wireworker Supervisor ID - Mary Grace Fatou comments: Slide comments:CBC W/PLT COUNT & AUTO [id number] 03:39:17 Test Item Value Reference Range Interpretation Comments WHITE BLOOD CELL COUNT (BEAKER) 13.7 K/ L 3.5-10.5 H (test code = 775) RED BLOOD CELL COUNT (BEAKER) 2.83 M/ L 4.63-6.08 L (test code = 761) HEMOGLOBIN (BEAKER) (test code = 7.6 GM/DL 13.7-17.5 L 410) HEMATOCRIT (BEAKER) (test code = 23.2 % 40.1-51.0 L 411) MEAN CORPUSCULAR VOLUME (BEAKER) 82 fL 79-92 (test code = 753) MEAN CORPUSCULAR HEMOGLOBIN 26.9 pg 25.7-32.2 (BEAKER) (test code = 751) MEAN CORPUSCULAR HEMOGLOBIN CONC 32.8 GM/DL 32.3-36.5 (BEAKER) (test code = 752) RED CELL DISTRIBUTION WIDTH 19.3 % 11.6-14.4 H (BEAKER) (test code = 412) PLATELET COUNT (BEAKER) (test 330 K/CU MM 150-450 code = 756) MEAN PLATELET VOLUME (BEAKER) 8.9 fL 9.4-12.4 L (test code = 754) NUCLEATED RED BLOOD CELLS 0 /100 WBC 0-0 (BEAKER) (test code = 413) [id number] 03:34:00 Test Item Value Reference Range Interpretation Comments FERRITIN (BEAKER) (test code = 607.98 ng/mL 5.00-275.00 H 361) Wireworker Supervisor ID - CYNTHIA GALVAN, TIBC, % SAT. (WITHOUT FERRITIN)2022-12-24 03:13:40 Test Item Value Reference Range Interpretation Comments IRON (BEAKER) (test code = 547) 16.0 ug/dL 40.0-160.0 L TOTAL IRON BINDING CAPACITY 204 ug/dL 250-450 L (BEAKER) (test code = 769) IRON % SATURATION (2) (BEAKER) 8 % 20-55 L (test code = 2590) Wireworker Supervisor ID - CYNTHIA GBASIC METABOLIC [id number] 03:12:38 Test Item Value Reference Range Interpretation Comments SODIUM (BEAKER) 131 meq/L 136-145 L (test code = 381) POTASSIUM 3.4 meq/L 3.5-5.1 L (BEAKER) (test code = 379) CHLORIDE (BEAKER) 94 meq/L 98-107 L (test code = 382) CO2 (BEAKER) 24 meq/L 22-29 (test code = 355) BLOOD UREA 104 mg/dL 7-21 H NITROGEN (BEAKER) (test code = 354) CREATININE 2.37 mg/dL 0.57-1.25 H (BEAKER) (test code = 358) GLUCOSE RANDOM 148 mg/dL 70-105 H (BEAKER) (test code = 652) CALCIUM (BEAKER) 8.7 mg/dL 8.4-10.2 (test code = 697) EGFR (BEAKER) 29 Interpretatio n of eGFR (test code = mL/min/1.73 values Stage De scription 1092) sq m Result G1 Hillary l or high >=90 G2 Mildly decreased 60-89 G3a Mildl y to moderately 45-5 9 G3b Moderately to s everely 30-44 G4 Severl y decreased 15-29 G5 Kidney failure <15Reported eGF R is based on the CKD-EPI 2020 equation that d oes not use a race coefficientEsti mated GFR is not as accur ate as Creatinine Siobhan rob in predicting glom erular filtration rate . Estimated GFR is not appl icable for dialysis patien ts Wireworker Supervisor ID - CYNTHIA GHEPATIC FUNCTION [id number] 03:09:38 Test Item Value Reference Range Interpretation Comments TOTAL PROTEIN (BEAKER) (test code = 5.6 gm/dL 6.0-8.3 L 770) ALBUMIN (BEAKER) (test code = 1145) 2.3 g/dL 3.5-5.0 L BILIRUBIN TOTAL (BEAKER) (test code 1.3 mg/dL 0.2-1.2 H = 377) BILIRUBIN DIRECT (BEAKER) (test 1.0 mg/dL 0.1-0.5 H code = 706) ALKALINE PHOSPHATASE (BEAKER) (test 99 U/L 40-150 code = 346) AST (SGOT) (BEAKER) (test code = 45 U/L 5-34 H 353) ALT (SGPT) (BEAKER) (test code = 28 U/L 6-55 347) Wireworker Supervisor ID Arabella MARIE [id number] 03:09:37 Test Item Value Reference Range Interpretation Comments PHOSPHORUS (BEAKER) (test code = 4.4 mg/dL 2.3-4.7 604) Wireworker Supervisor ID - CYNTHIA [id number] 03:09:36 Test Item Value Reference Range Interpretation Comments PARTIAL THROMBOPLASTIN TIME 108.4 seconds 22.5-36.0 H (BEAKER) (test code = 760) [id number] 03:09:36 Test Item Value Reference Range Interpretation Comments MAGNESIUM (BEAKER) (test code = 2.2 mg/dL 1.6-2.6 627) Wireworker Supervisor ID - CYNTHIA GLACTIC ACID, [id number] 02:58:36 Test Item Value Reference Range Interpretation Comments LACTATE BLOOD 0.8 mmol/L 0.5-2.0 Specimen sligh tly ARTERIAL (2) (BEAKER) hemoly zed (test code = 2874) Wireworker Supervisor ID - CYNTHIA GOXYGEN SATURATION, [id number] 02:52:52 Test Item Value Reference Range Interpretation Comments O2 SATURATION (MEASURED) (BEAKER) 73.6 % (test code = 1455) BASIC METABOLIC [id number] 20:29:50 Test Item Value Reference Range Interpretation Comments SODIUM (BEAKER) 129 meq/L 136-145 L (test code = 381) POTASSIUM 3.7 meq/L 3.5-5.1 (BEAKER) (test code = 379) CHLORIDE (BEAKER) 93 meq/L 98-107 L (test code = 382) CO2 (BEAKER) 23 meq/L 22-29 (test code = 355) BLOOD UREA 106 mg/dL 7-21 H NITROGEN (BEAKER) (test code = 354) CREATININE 2.48 mg/dL 0.57-1.25 H (BEAKER) (test code = 358) GLUCOSE RANDOM 215 mg/dL 70-105 H (BEAKER) (test code = 652) CALCIUM (BEAKER) 8.2 mg/dL 8.4-10.2 L (test code = 697) EGFR (BEAKER) 27 Interpretatio n of eGFR (test code = mL/min/1.73 values Stage De scription 1092) sq m Result G1 Hillary l or high >=90 G2 Mildly decreased 60-89 G3a Mildl y to moderately 45-5 9 G3b Moderately to s everely 30-44 G4 Severl y decreased 15-29 G5 Kidney failure <15Reported eGF R is based on the CKD-EPI 2021 equation that d oes not use a race coefficientEsti mated GFR is not as accur ate as Creatinine Siobhan rob in predicting glom erular filtration rate . Estimated GFR is not appl icable for dialysis patien ts Wireworker Supervisor ID - [id number] 20:26:21 Test Item Value Reference Range Interpretation Comments MAGNESIUM (BEAKER) (test code = 2.2 mg/dL 1.6-2.6 627) Wireworker Supervisor ID - EDPOCT-GLUCOSE [id number] 16:23:48 Test Item Value Reference Range Interpretation Comments POC-GLUCOSE METER 137 mg/dL 70-110 H : TESTED A T [facility] 6720 (BEAKER) (test code = IBETHDHIRAJ Peña [facility], 1538) [id number]: Wireworker Supervisor/Techni josafat ID = [id number] for FO X, JACK BASIC METABOLIC [id number] 12:37:43 Test Item Value Reference Range Interpretation Comments SODIUM (BEAKER) 129 meq/L 136-145 L (test code = 381) POTASSIUM 3.8 meq/L 3.5-5.1 (BEAKER) (test code = 379) CHLORIDE (BEAKER) 93 meq/L 98-107 L (test code = 382) CO2 (BEAKER) 24 meq/L 22-29 (test code = 355) BLOOD UREA 103 mg/dL 7-21 H NITROGEN (BEAKER) (test code = 354) CREATININE 2.50 mg/dL 0.57-1.25 H (BEAKER) (test code = 358) GLUCOSE RANDOM 167 mg/dL 70-105 H (BEAKER) (test code = 652) CALCIUM (BEAKER) 8.3 mg/dL 8.4-10.2 L (test code = 697) EGFR (BEAKER) 27 Interpretatio n of eGFR (test code = mL/min/1.73 values Stage De scription 1092) sq m Result G1 Hillary l or high >=90 G2 Mildly decreased 60-89 G3a Mildl y to moderately 45-5 9 G3b Moderately to s everely 30-44 G4 Severl y decreased 15-29 G5 Kidney failure <15Reported eGF R is based on the CKD-EPI 2020 equation that d oes not use a race coefficientEsti mated GFR is not as accur ate as Creatinine Siobhan rob in predicting glom erular filtration rate . Estimated GFR is not appl icable for dialysis patien ts Wireworker Supervisor ID - [id number] 12:28:35 Test Item Value Reference Range Interpretation Comments MAGNESIUM (JOLEEN) (test code = 2.2 mg/dL 1.6-2.6 627) Wireworker Supervisor ID - EDPOCT-GLUCOSE [id number] 11:13:06 Test Item Value Reference Range Interpretation Comments POC-GLUCOSE METER 144 mg/dL 70-110 H : TESTED A T [facility] 6720 (JOLEEN) (test code = DOUGLAS Peña [facility], 1538) 90[address]: Wireworker Supervisor/Techni josafat ID = [id number] for FO X, JACK RAD, CHEST, 1 VIEW, NON [id number] 08:45:00Reason for exam:- >hypoxiaShould this be performed at the bedside?->Yes [facility] : 1950 Sex: MFINAL REPORT RAD, CHEST, 1 VIEW, NON DEPT INDICATION: hypoxia COMPARISON: Prior day's exam FINDINGS: Portable frontal view of the chest. IMPRESSION: Support Lines: Hinkley-Pepe tip overlies the pulmonary outflow tract. IABP marker is 6.4 cm from the top of the aortic arch. Pacer device. Lungsand pleura: Unchanged bilateral airspace opacities concerning for multifocal pneumonia versus multifocal edema. No significant pneumothorax. Heart and mediastinum: Stable contours. Stable surgical changes. Additional findings: None. Signed: Shree Holman Verified Date/Time: 12/23/2022 08:45:29 -GLUCOSE [id number] 07:59:10 Test Item Value Reference Range Interpretation Comments POC-GLUCOSE METER 152 mg/dL 70-110 H : TESTED A T [facility] 6720 (BEAKER) (test code = DOUGLAS CID [place], 1538) [address]: Wireworker Supervisor/Techni josafat ID = [id number] for FO X, JACK HEPATIC FUNCTION [id number] 07:44:45 Test Item Value Reference Range Interpretation Comments TOTAL PROTEIN (BEAKER) (test code = 5.6 gm/dL 6.0-8.3 L 770) ALBUMIN (BEAKER) (test code = 1145) 2.3 g/dL 3.5-5.0 L BILIRUBIN TOTAL (BEAKER) (test code 1.6 mg/dL 0.2-1.2 H = 377) BILIRUBIN DIRECT (BEAKER) (test 1.2 mg/dL 0.1-0.5 H code = 706) ALKALINE PHOSPHATASE (BEAKER) (test 101 U/L 40-150 code = 346) AST (SGOT) (BEAKER) (test code = 90 U/L 5-34 H 353) ALT (SGPT) (BEAKER) (test code = 33 U/L 6-55 347) Wireworker Supervisor ID - ALLEY(CELLAVISION MANUAL DIFF)2022-12-23 03:50:43 Test Item Value Reference Range Interpretation Comments NEUTROPHILS - REL 87 % (CELLAVISION)(BEAKER) (test code = 2816) LYMPHOCYTES - REL 3 % (CELLAVISION)(BEAKER) (test code = 2817) MONOCYTES - REL 1 % (CELLAVISION)(BEAKER) (test code = 2818) EOSINOPHILS - REL 4 % (CELLAVISION)(BEAKER) (test code = 2819) METAMYELOCYTES - REL 1 % 0-0 H (CELLAVISION)(BEAKER) (test code = 2821) MYELOCYTES - REL 4 % 0-0 H (CELLAVISION)(BEAKER) (test code = 2822) NEUTROPHILS - ABS 11.83 K/ul 1.78-5.38 H (CELLAVISION)(BEAKER) (test code = 2830) LYMPHOCYTES - ABS 0.41 K/ul 1.32-3.57 L (CELLAVISION)(BEAKER) (test code = 2831) MONOCYTES - ABS 0.14 K/uL 0.30-0.82 L (CELLAVISION)(BEAKER) (test code = 2832) EOSINOPHILS - ABS 0.54 K/uL 0.04-0.54 (CELLAVISION)(BEAKER) (test code = 2834) METAMYELOCYTES - ABS 0.14 K/uL 0.00-0.00 H (CELLAVISION)(BEAKER) (test code = 2836) MYELOCYTES-ABS 0.54 K/uL 0.00-0.00 H (CELLAVISION)(BEAKER) (test code = 2837) TOTAL COUNTED (BEAKER) (test code 100 = 1351) WBC MORPHOLOGY (BEAKER) (test code Normal = 487) PLT MORPHOLOGY (BEAKER) (test code Normal = 486) ANISOCYTOSIS (BEAKER) (test code = 1+ few 961) ARTIFACT (CELLAVISION)(BEAKER) Present (test code = 3432) PLATELET CONCENTRATION Adequate (CELLAVISION)(BEAKER) (test code = 3438) Wireworker Supervisor ID - Mary Grace Lainez comments: Slide comments:CBC W/PLT COUNT & AUTO [id number] 03:50:41 Test Item Value Reference Range Interpretation Comments WHITE BLOOD CELL COUNT (BEAKER) 13.6 K/ L 3.5-10.5 H (test code = 775) RED BLOOD CELL COUNT (BEAKER) 2.83 M/ L 4.63-6.08 L (test code = 761) HEMOGLOBIN (BEAKER) (test code = 7.4 GM/DL 13.7-17.5 L 410) HEMATOCRIT (BEAKER) (test code = 22.9 % 40.1-51.0 L 411) MEAN CORPUSCULAR VOLUME (BEAKER) 81 fL 79-92 (test code = 753) MEAN CORPUSCULAR HEMOGLOBIN 26.1 pg 25.7-32.2 (BEAKER) (test code = 751) MEAN CORPUSCULAR HEMOGLOBIN CONC 32.3 GM/DL 32.3-36.5 (BEAKER) (test code = 752) RED CELL DISTRIBUTION WIDTH 19.1 % 11.6-14.4 H (BEAKER) (test code = 412) PLATELET COUNT (BEAKER) (test 354 K/CU MM 150-450 code = 756) MEAN PLATELET VOLUME (BEAKER) 8.9 fL 9.4-12.4 L (test code = 754) NUCLEATED RED BLOOD CELLS 0 /100 WBC 0-0 (BEAKER) (test code = 413) BASIC METABOLIC [id number] 03:49:11 Test Item Value Reference Range Interpretation Comments SODIUM (BEAKER) 127 meq/L 136-145 L (test code = 381) POTASSIUM 3.7 meq/L 3.5-5.1 (BEAKER) (test code = 379) CHLORIDE (BEAKER) 91 meq/L 98-107 L (test code = 382) CO2 (BEAKER) 22 meq/L 22-29 (test code = 355) BLOOD UREA 105 mg/dL 7-21 H NITROGEN (BEAKER) (test code = 354) CREATININE 2.58 mg/dL 0.57-1.25 H (BEAKER) (test code = 358) GLUCOSE RANDOM 146 mg/dL 70-105 H (BEAKER) (test code = 652) CALCIUM (BEAKER) 8.3 mg/dL 8.4-10.2 L (test code = 697) EGFR (BEAKER) 26 Interpretatio n of eGFR (test code = mL/min/1.73 values Stage De scription 1092) sq m Result G1 Hillary l or high >=90 G2 Mildly decreased 60-89 G3a Mildl y to moderately 45-5 9 G3b Moderately to s everely 30-44 G4 Severl y decreased 15-29 G5 Kidney failure <15Reported eGF R is based on the CKD-EPI 2020 equation that d oes not use a race coefficientEsti mated GFR is not as accur ate as Creatinine Siobhan rivas in predicting glom erular filtration rate . Estimated GFR is not appl icable for dialysis patien ts Wireworker Supervisor ID - [id number] 03:48:14 Test Item Value Reference Range Interpretation Comments PHOSPHORUS (BEAKER) (test code = 4.2 mg/dL 2.3-4.7 604) Wireworker Supervisor ID - [id number] 03:48:13 Test Item Value Reference Range Interpretation Comments MAGNESIUM (BEAKER) (test code = 2.1 mg/dL 1.6-2.6 627) Wireworker Supervisor ID - BSCALCIUM, [id number] 03:16:30 Test Item Value Reference Range Interpretation Comments CALCIUM IONIZED (BEAKER) (test 1.03 mmol/L 1.12-1.27 L code = 698) PH, BLOOD (BEAKER) (test code = 7.45 1810) LACTIC ACID, [id number] 03:16:12 Test Item Value Reference Range Interpretation Comments LACTATE BLOOD ARTERIAL (2) 0.9 mmol/L 0.5-2.0 (BEAKER) (test code = 2874) Wireworker Supervisor ID - [id number] 03:16:11 Test Item Value Reference Range Interpretation Comments PARTIAL THROMBOPLASTIN TIME 85.3 seconds 22.5-36.0 H (BEAKER) (test code = 760) OXYGEN SATURATION, [id number] 03:15:16 Test Item Value Reference Range Interpretation Comments O2 SATURATION (MEASURED) (BEAKER) 58.5 % (test code = 1455) BASIC METABOLIC [id number] 21:09:09 Test Item Value Reference Range Interpretation Comments SODIUM (BEAKER) 129 meq/L 136-145 L (test code = 381) POTASSIUM 3.4 meq/L 3.5-5.1 L (BEAKER) (test code = 379) CHLORIDE (BEAKER) 91 meq/L 98-107 L (test code = 382) CO2 (BEAKER) 23 meq/L 22-29 (test code = 355) BLOOD UREA 106 mg/dL 7-21 H NITROGEN (BEAKER) (test code = 354) CREATININE 2.62 mg/dL 0.57-1.25 H (BEAKER) (test code = 358) GLUCOSE RANDOM 137 mg/dL 70-105 H (BEAKER) (test code = 652) CALCIUM (BEAKER) 8.4 mg/dL 8.4-10.2 (test code = 697) EGFR (BEAKER) 25 Interpretatio n of eGFR (test code = mL/min/1.73 values Stage De scription 1092) sq m Result G1 Hillary l or high >=90 G2 Mildly decreased 60-89 G3a Mildl y to moderately 45-5 9 G3b Moderately to s everely 30-44 G4 Severl y decreased 15-29 G5 Kidney failure <15Reported eGF R is based on the CKD-EPI 2020 equation that d oes not use a race coefficientEsti mated GFR is not as accur ate as Creatinine Siobhan rob in predicting glom erular filtration rate . Estimated GFR is not appl icable for dialysis patien ts Wireworker Supervisor ID - [id number] 21:06:17 Test Item Value Reference Range Interpretation Comments MAGNESIUM (BEAKER) (test code = 2.2 mg/dL 1.6-2.6 627) Wireworker Supervisor ID - BSPOCT-GLUCOSE [id number] 16:43:50 Test Item Value Reference Range Interpretation Comments POC-GLUCOSE METER 207 mg/dL 70-110 H : TESTED A T [facility] 6720 (BEAKER) (test code = DOUGLAS CID [place], 1538) [id number]: Wireworker Supervisor/Techni josafat ID = [id number] for Donna Melo Carotid doppler [id number] 14:04:34Ejection FractionSLEH ECHO HEARTLAB MKCKESSON [facility] HospitalBAS[facility] MET[facility]OLIC [id number] 13:13:06 Test Item Value Reference Range Interpretation Comments SODIUM (BEAKER) 128 meq/L 136-145 L (test code = 381) POTASSIUM 4.1 meq/L 3.5-5.1 Specimen slight ly (BEAKER) (test hemolyzed code = 379) CHLORIDE (BEAKER) 93 meq/L 98-107 L (test code = 382) CO2 (BEAKER) 22 meq/L 22-29 (test code = 355) BLOOD UREA 95 mg/dL 7-21 H NITROGEN (BEAKER) (test code = 354) CREATININE 2.62 mg/dL 0.57-1.25 H Specimen slight ly (BEAKER) (test hemolyzed code = 358) GLUCOSE RANDOM 216 mg/dL 70-105 H (BEAKER) (test code = 652) CALCIUM (BEAKER) 8.2 mg/dL 8.4-10.2 L (test code = 697) EGFR (BEAKER) 25 Interpretatio n of eGFR (test code = mL/min/1.73 values Stage De scription 1092) sq m Result G1 Hillary l or high >=90 G2 Mildly decreased 60-89 G3a Mildl y to moderately 45-5 9 G3b Moderately to s everely 30-44 G4 Severl y decreased 15-29 G5 Kidney failure <15Reported eGF R is based on the CKD-EPI 2020 equation that d oes not use a race coefficientEsti mated GFR is not as accur ate as Creatinine Siobhan rob in predicting glom erular filtration rate . Estimated GFR is not appl icable for dialysis patien ts Wireworker Supervisor ID - [id number] 13:05:55 Test Item Value Reference Range Interpretation Comments MAGNESIUM (BEAKER) 2.2 mg/dL 1.6-2.6 Specimen slightly (test code = 627) hemolyzed Wireworker Supervisor ID - PADMAJAATIYA, CHEST, 1 VIEW, NON [id number] 11:37:00Reason for exam:->hypoxiaShould this be performed at the bedside?->Yes [facility] : 1950 Sex: MFINAL REPORT RAD, CHEST, 1 VIEW, NON DEPT INDICATION: hypoxia COMPARISON: Prior day's exam FINDINGS: Portable frontal view of the chest. IMPRESSION: Support Lines: IABP marker 6 cm caudal to the aortic arch apex. Right IJ Hinkley-Pepe catheter tip overlies right pulmonary artery. Right chest t ransvenous ICD device stable in appearance. Lungs and pleura: Unchanged extensive bilateral pulmonary opacities. No pneumothorax.Heart and mediastinum: Stable contours. Additional findings: None. Signed: Isiah Baptiste MDReport Verified Date/Time: 12/22/2022 11:37:06 POCT-GLUCOSE [id number] 11:35:05 Test Item Value Reference Range Interpretation Comments POC-GLUCOSE METER 238 mg/dL 70-110 H : TESTED A T [facility]20 [facility] (test code = DOUGLAS CID [place], 1538) [id number]: Wireworker Supervisor/Techni josafat ID = [id number] for Donna Melo CT, ABDOMEN, WITHOUT [id number] 08:31:00Reason for exam:->LVAD workupWhat is the patient's sedation requirement?->No Sedation [facility] : 1950 Sex: MFINAL REPORT TECHNIQUE: CT of the chest and abdomen WITHOUT intravenous contrast and WITHOUT oral contrast. Dose modulation, iterative reconstruction, and/or weight-based adjustment of the mA/kV was utilized to reduce the radiation dose to as low as reasonably achievable. INDICATION: Unlisted Reason for ExamLVAD workup. COMPARISON: CT from 07/17/2017. FINDINGS: ABSENCE OF INTRAVENOUS CONTRAST DECREASES SENSITIVITY FOR DETECTION OF FOCAL LESIONS AND VASCULAR PATHOLOGY. LINES/TUBES: A right IJ pulmonary trochanter has its tip in the right pulmonary artery. LUNGS AND AIRWAYS: There are extensive patchy lung opacities with additional prominent interstitial and groundglass lung opacities. PLEURA: Small bilateral pleural effusions. No pneumothorax.HEART AND MEDIASTINUM: The visualized thyroid gland is normal. No significant mediastinal, hilar, or axillary lymphadenopathy. A right chest cardiac device has leads in the right atrium, right ventricle, and coronary sinus. The heart is enlarged. Extensive coronary arterial calcifications. Prior coronary arterial bypass. An intra-aortic balloonpump has its tip in the upper descending thoracic aorta, approximately 3.3 cm below the top of the descending thoracic aorta. The proximal marker is in the infrarenal abdominal aorta, approximately 5.3cm inferior to the renal arteries. Marked calcification of the thoracic aorta and arch branch vessels with at least moderate stenosis of the left subclavian artery. HEPATOBILIARY: A cyst in segment VIII measures 0.8 cm. Vicarious excretion of contrast in the gallbladder. There is mild gallbladder wall thickening.. No biliary ductal dilatation.SPLEEN: No splenomegaly.PANCREAS: No focal masses or ductal dilatation. ADRENALS: No adrenal nodules.KIDNEYS/URETERS: No hydronephrosis or exophytic masses. A left lower pole nonobstructing renal stone measures 0.7 cm. PERITONEUM/RETROPERITONEUM: No free air or fluid.LYMPH NODES: No lymphadenopathy.VESSELS: Extensive calcification of the abdominopelvic vasculature. There are bilateral common iliac arterial stents. GI TRACT: No distention or wall thickening of the partially visualized bowel. BONES AND SOFT TISSUES: Old, unhealed median sternotomy. Prior right shoulder arthroplasty. Moderate degenerative changes of the visualized spine. Transitional lumbosacral anatomy with a right L5-S1 pseudoarthrosis. IMPRESSION: 1.The extensive lung opacities are concerning for infection. The more groundglass interstitial opacities could be additional superimposed pulmonary edema. 2.The intra-aortic balloon pump has its proximal tip approximately 3.3 cm per the top ofthe descending thoracic aorta, and the distal marker 5.3 cm inferior to the renal arteries. 3.The thickening of the gallbladder wall may be due to systemic volume overload. The hyperdense material in the gallbladder is most likely vicarious excretion of contrast. Signed: Dudley Disla MDReport Verified Date/Time: 12/22/2022 08:31:03 Reading Location: [facility] [id number] [facility] Consult Reading Room CT, CHEST, WITHOUT [id number] 08:31:00Reason for exam:->LVAD workupWhat is the patient's sedation requirement?->No Sedation [facility]REZ : 1950 Sex: MFINAL REPORT TECHNIQUE: CT of the chest and abdomen WITHOUT intravenous contrast and WITHOUT oral contrast. Dose modulation, iterative reconstruction, and/or weight-based adjustment of the mA/kV was utilized to reduce the radiation dose to as low as reasonably achievable. INDICATION: Unlisted Reason for ExamLVAD workup. COMPARISON: CT from 07/17/2017. FINDINGS: ABSENCE OF INTRAVENOUS CONTRAST DECREASES SENSITIVITY FOR DETECTION OF FOCAL LESIONS AND VASCULAR PATHOLOGY. LINES/TUBES: A right IJ pulmonary trochanter has its tip in the right pulmonary artery. LUNGS AND AIRWAYS: There are extensive patchy lung opacities with additional prominent interstitial and groundglass lung opacities. PLEURA: Small bilateral pleural effusions. No pneumothorax.HEART AND MEDIASTINUM: The visualized thyroid gland is normal. No significant mediastinal, hilar, or axillary lymphadenopathy. A right chest cardiac device has leads in the right atrium, right ventricle, and coronary sinus. The heart is enlarged. Extensive coronary arterial calcifications. Prior coronary arterial bypass. An intra-aortic balloonpump has its tip in the upper descending thoracic aorta, approximately 3.3 cm below the top of the descending thoracic aorta. The proximal marker is in the infrarenal abdominal aorta, approximately 5.3cm inferior to the renal arteries. Marked calcification of the thoracic aorta and arch branch vessels with at least moderate stenosis of the left subclavian artery. HEPATOBILIARY: A cyst in segment VIII measures 0.8 cm. Vicarious excretion of contrast in the gallbladder. There is mild gallbladder wall thickening.. No biliary ductal dilatation.SPLEEN: No splenomegaly.PANCREAS: No focal masses or ductal dilatation. ADRENALS: No adrenal nodules.KIDNEYS/URETERS: No hydronephrosis or exophytic masses. A left lower pole nonobstructing renal stone measures 0.7 cm. PERITONEUM/RETROPERITONEUM: No free air or fluid.LYMPH NODES: No lymphadenopathy.VESSELS: Extensive calcification of the abdominopelvic vasculature. There are bilateral common iliac arterial stents. GI TRACT: No distention or wall thickening of the partially visualized bowel. BONES AND SOFT TISSUES: Old, unhealed median sternotomy. Prior right shoulder arthroplasty. Moderate degenerative changes of the visualized spine. Transitional lumbosacral anatomy with a right L5-S1 pseudoarthrosis. IMPRESSION: 1.The extensive lung opacities are concerning for infection. The more groundglass interstitial opacities could be additional superimposed pulmonary edema. 2.The intra-aortic balloon pump has its proximal tip approximately 3.3 cm per the top ofthe descending thoracic aorta, and the distal marker 5.3 cm inferior to the renal arteries. 3.The thickening of the gallbladder wall may be due to systemic volume overload. The hyperdense material in the gallbladder is most likely vicarious excretion of contrast. Signed: Dudley Disla MDReport Verified Date/Time: 12/22/2022 08:31:03 Reading Location: [facility] C013X Ortho Consult Reading Room POCT-GLUCOSE [id number] 08:09:58 Test Item Value Reference Range Interpretation Comments POC-GLUCOSE METER 148 mg/dL 70-110 H : TESTED A T [facility] 6720 (BEAKER) (test code = [facility]IR[facility], 1538) [id number]: Wireworker Supervisor/Techni josafat ID = [id number] for Donna Melo (CELLAVISION MANUAL DIFF)2022-12-22 07:48:56 Test Item Value Reference Range Interpretation Comments NEUTROPHILS - REL 91 % (CELLAVISION)(BEAKER) (test code = 2816) LYMPHOCYTES - REL 1 % (CELLAVISION)(BEAKER) (test code = 2817) MONOCYTES - REL 3 % (CELLAVISION)(BEAKER) (test code = 2818) EOSINOPHILS - REL 1 % (CELLAVISION)(BEAKER) (test code = 2819) BASOPHILS - REL 1 % (CELLAVISION)(BEAKER) (test code = 2820) MYELOCYTES - REL 2 % 0-0 H (CELLAVISION)(BEAKER) (test code = 2822) PROMYELOCYTES - REL 1 % 0-0 H (CELLAVSION)(BEAKER) (test code = 2825) NEUTROPHILS - ABS 10.83 K/ul 1.78-5.38 H (CELLAVISION)(BEAKER) (test code = 2830) LYMPHOCYTES - ABS 0.12 K/ul 1.32-3.57 L (CELLAVISION)(BEAKER) (test code = 2831) MONOCYTES - ABS 0.36 K/uL 0.30-0.82 (CELLAVISION)(BEAKER) (test code = 2832) EOSINOPHILS - ABS 0.12 K/uL 0.04-0.54 (CELLAVISION)(BEAKER) (test code = 2834) BASOPHILS - ABS 0.12 K/uL 0.01-0.08 H (CELLAVISION)(BEAKER) (test code = 2835) MYELOCYTES-ABS 0.24 K/uL 0.00-0.00 H (CELLAVISION)(BEAKER) (test code = 2837) PROMYELOCYTES - ABS 0.12 K/uL 0.00-0.00 H (CELLAVISION)(BEAKER) (test code = 2838) TOTAL COUNTED (BEAKER) (test code 100 = 1351) WBC MORPHOLOGY (BEAKER) (test Normal code = 487) GIANT PLATELETS (BEAKER) (test Present code = 313) POLYCHROMATOPHILLIC RBCS(BEAKER) 3+ many (test code = 478) POIKILOCYTES (BEAKER) (test code 2+ moderate = 966) OVALOCYTES (BEAKER) (test code = 1+ few 477) CHARLOTTE CELLS (BEAKER) (test code = 1+ few 474) ARTIFACT (CELLAVISION)(BEAKER) Present (test code = 3432) PLATELET CONCENTRATION Adequate (CELLAVISION)(BEAKER) (test code = 3438) Wireworker Supervisor ID - barry Louie comments: Slide comments:CBC W/PLT COUNT & AUTO [id number] 07:48:55 Test Item Value Reference Range Interpretation Comments WHITE BLOOD CELL COUNT (BEAKER) 11.9 K/ L 3.5-10.5 H (test code = 775) RED BLOOD CELL COUNT (BEAKER) 2.84 M/ L 4.63-6.08 L (test code = 761) HEMOGLOBIN (BEAKER) (test code = 7.7 GM/DL 13.7-17.5 L 410) HEMATOCRIT (BEAKER) (test code = 23.5 % 40.1-51.0 L 411) MEAN CORPUSCULAR VOLUME (BEAKER) 83 fL 79-92 (test code = 753) MEAN CORPUSCULAR HEMOGLOBIN 27.1 pg 25.7-32.2 (BEAKER) (test code = 751) MEAN CORPUSCULAR HEMOGLOBIN CONC 32.8 GM/DL 32.3-36.5 (BEAKER) (test code = 752) RED CELL DISTRIBUTION WIDTH 19.0 % 11.6-14.4 H (BEAKER) (test code = 412) PLATELET COUNT (BEAKER) (test 368 K/CU MM 150-450 code = 756) MEAN PLATELET VOLUME (BEAKER) 9.3 fL 9.4-12.4 L (test code = 754) NUCLEATED RED BLOOD CELLS 0 /100 WBC 0-0 (BEAKER) (test code = 413) BASIC METABOLIC [id number] 06:05:31 Test Item Value Reference Range Interpretation Comments SODIUM (BEAKER) 127 meq/L 136-145 L (test code = 381) POTASSIUM 3.5 meq/L 3.5-5.1 (BEAKER) (test code = 379) CHLORIDE (BEAKER) 90 meq/L 98-107 L (test code = 382) CO2 (BEAKER) 25 meq/L 22-29 (test code = 355) BLOOD UREA 99 mg/dL 7-21 H NITROGEN (BEAKER) (test code = 354) CREATININE 2.73 mg/dL 0.57-1.25 H (BEAKER) (test code = 358) GLUCOSE RANDOM 146 mg/dL 70-105 H (BEAKER) (test code = 652) CALCIUM (BEAKER) 8.8 mg/dL 8.4-10.2 (test code = 697) EGFR (BEAKER) 24 Interpretatio n of eGFR (test code = mL/min/1.73 values Stage De scription 1092) sq m Result G1 Hillary l or high >=90 G2 Mildly decreased 60-89 G3a Mildl y to moderately 45-5 9 G3b Moderately to s everely 30-44 G4 Severl y decreased 15-29 G5 Kidney failure <15Reported eGF R is based on the CKD-EPI 2020 equation that d oes not use a race coefficientEsti mated GFR is not as accur ate as Creatinine Siobhan rob in predicting glom erular filtration rate . Estimated GFR is not appl icable for dialysis patien ts Wireworker Supervisor ID - [id number] 06:04:43 Test Item Value Reference Range Interpretation Comments PHOSPHORUS (BEAKER) (test code = 4.4 mg/dL 2.3-4.7 604) Wireworker Supervisor ID - [id number] 06:04:42 Test Item Value Reference Range Interpretation Comments MAGNESIUM (BEAKER) (test code = 2.3 mg/dL 1.6-2.6 627) Wireworker Supervisor ID - [id number] 06:02:21 Test Item Value Reference Range Interpretation Comments PARTIAL THROMBOPLASTIN TIME 73.3 seconds 22.5-36.0 H (BEAKER) (test code = 760) OXYGEN SATURATION, [id number] 06:00:39 Test Item Value Reference Range Interpretation Comments O2 SATURATION (MEASURED) (BEAKER) 71.0 % (test code = 1455) [id number] 00:47:17 Test Item Value Reference Range Interpretation Comments PARTIAL THROMBOPLASTIN TIME 79.4 seconds 22.5-36.0 H (BEAKER) (test code = 760) BASIC METABOLIC [id number] 21:58:04 Test Item Value Reference Range Interpretation Comments SODIUM (BEAKER) 125 meq/L 136-145 L (test code = 381) POTASSIUM 3.9 meq/L 3.5-5.1 (BEAKER) (test code = 379) CHLORIDE (BEAKER) 89 meq/L 98-107 L (test code = 382) CO2 (BEAKER) 21 meq/L 22-29 L (test code = 355) BLOOD UREA 100 mg/dL 7-21 H NITROGEN (BEAKER) (test code = 354) CREATININE 2.92 mg/dL 0.57-1.25 H (BEAKER) (test code = 358) GLUCOSE RANDOM 190 mg/dL 70-105 H (BEAKER) (test code = 652) CALCIUM (BEAKER) 8.7 mg/dL 8.4-10.2 (test code = 697) EGFR (BEAKER) 22 Interpretatio n of eGFR (test code = mL/min/1.73 values Stage De scription 1092) sq m Result G1 Hillary l or high >=90 G2 Mildly decreased 60-89 G3a Mildl y to moderately 45-5 9 G3b Moderately to s everely 30-44 G4 Severl y decreased 15-29 G5 Kidney failure <15Reported eGF R is based on the CKD-EPI 2020 equation that d oes not use a race coefficientEsti mated GFR is not as accur ate as Creatinine Siobhan rob in predicting glom erular filtration rate . Estimated GFR is not appl icable for dialysis patien ts Wireworker Supervisor ID - [id number] 21:56:56 Test Item Value Reference Range Interpretation Comments MAGNESIUM (BEAKER) (test code = 2.3 mg/dL 1.6-2.6 627) Wireworker Supervisor ID - [id number] 18:10:53 Test Item Value Reference Range Interpretation Comments PARTIAL THROMBOPLASTIN TIME 72.2 seconds 22.5-36.0 H (BEAKER) (test code = 760) POCT-GLUCOSE [id number] 16:52:26 Test Item Value Reference Range Interpretation Comments POC-GLUCOSE METER 186 mg/dL 70-110 H : TESTED A T [facility] 6720 (BEAKER) (test code = DOUGLAS Peña [facility], 1538) [id number]: Wireworker Supervisor/Techni josafat ID = [id number] for Fr ost, Aury BASIC METABOLIC [id number] 13:09:53 Test Item Value Reference Range Interpretation Comments SODIUM (BEAKER) 125 meq/L 136-145 L (test code = 381) POTASSIUM 3.7 meq/L 3.5-5.1 (BEAKER) (test code = 379) CHLORIDE (BEAKER) 91 meq/L 98-107 L (test code = 382) CO2 (BEAKER) 24 meq/L 22-29 (test code = 355) BLOOD UREA 95 mg/dL 7-21 H NITROGEN (BEAKER) (test code = 354) CREATININE 2.77 mg/dL 0.57-1.25 H (BEAKER) (test code = 358) GLUCOSE RANDOM 165 mg/dL 70-105 H (BEAKER) (test code = 652) CALCIUM (BEAKER) 8.1 mg/dL 8.4-10.2 L (test code = 697) EGFR (BEAKER) 24 Interpretatio n of eGFR (test code = mL/min/1.73 values Stage De scription 1092) sq m Result G1 Hillary l or high >=90 G2 Mildly decreased 60-89 G3a Mildl y to moderately 45-5 9 G3b Moderately to s everely 30-44 G4 Severl y decreased 15-29 G5 Kidney failure <15Reported eGF R is based on the CKD-EPI 2020 equation that d oes not use a race coefficientEsti mated GFR is not as accur ate as Creatinine Siobhan rob in predicting glom erular filtration rate . Estimated GFR is not appl icable for dialysis patien ts Wireworker Supervisor ID - [id number] 13:04:45 Test Item Value Reference Range Interpretation Comments MAGNESIUM (BEAKER) (test code = 2.3 mg/dL 1.6-2.6 627) Wireworker Supervisor ID - MARCOPOCT-GLUCOSE [id number] 13:01:42 Test Item Value Reference Range Interpretation Comments POC-GLUCOSE METER 175 mg/dL 70-110 H : TESTED A T [facility] 6720 (BEAKER) (test code = DOUGLAS Peña [facility], 1538) 61892: Wireworker Supervisor/Techni josafat ID = [id number] for Fr ost, Aury PLATELET AGGREGATION: FUNCTION [id number] 11:27:12 Test Item Value Reference Range Interpretation Comments [id number] Jaime Irby MD (BEAKER) (test code = (electronic 8292) signature) PLATELET COUNT AGG 444 K/CU MM 150-450 (BEAKER) (test code = 4986) ADP (BEAKER) (test code 65 % 62-100 = 4654) PLATELET RICH 284 k/cu mm 200-300 PLASMA(BEAKER) (test code = 2134) PLATELET FUNCTION SCREEN Normal aggregation INTERPRETATION (Ebook GlueAKER) results with ADP. No (test code = 4655) evidence of platelet dysfunction or P2Y12 inhibitor effect. Platelet Function Screen results may be falsely low with platelet counts<75,000/cu mm.Wireworker Supervisor ID- [id number], BRAIN, WITHOUT [id number] 10:47:00Reason for exam:->LVAD [facility]up [facility] : 1950 Sex: MFINAL REPORT CT, BRAIN, WITHOUT CONTRAST CLINICAL INDICATION: Unlisted Reason for ExamLVAD Workup COMPARISON: 07/17/2017 TECHNIQUE: Noncontrast axial CT imaging of the brain and skull. DOSEREDUCTION: Dose modulation, iterative reconstruction, and/or weight-based adjustment of the mA/kV was utilized to reduce the radiation dose to as low as reasonably achievable. FINDINGS:No intracranial hemorrhage, midline shift or mass effect. Midline structures are normally developed. Scattered foci of hypoattenuation are present throughout the periventricular and subcortical white matter, and, although nonspecific by imaging, statistically represent mild chronic microvascular ischemic changes in this age group. No hydrocephalus. Orbits are within normal limits. Prior bilateral lens surgery. No obstructive paranasal sinus disease. IMPRESSION: No acute intracranial findings If there is persistent clinical concern for intracranial pathology, MR examination is recommended for further characterization. Signed: Shree Holman MDReport Verified Date/Time: 12/21/2022 10:47:50 Reading Location: [address] Reading Room [id number] 10:10:16 Test Item Value Reference Range Interpretation Comments PARTIAL THROMBOPLASTIN TIME 43.7 seconds 22.5-36.0 H (BEAKER) (test code = 760) RAD, CHEST, 1 VIEW, NON [id number] 09:23:00Reason for exam:- >hypoxiaShould this be performed at the bedside?->Yes [facility] : 1950 Sex: MFINAL REPORT RAD, CHEST, 1 VIEW, NON DEPT INDICATION: hypoxia COMPARISON: Prior day's exam FINDINGS: Portable frontal view of the chest. IMPRESSION: Support Lines: Right IJ CVC tip overliesthe right pulmonary artery. IABP marker 3 cm complex fracture apex. Otherwise stable support apparatus. Lungs and pleura: Bilateral pulmonary opacities increased within the right lung base. No pneumothorax.Heart and mediastinum: Stable contours. Additional findings: None. Signed: Isiah Baptiste MDReport Verified Date/Time: 12/21/2022 09:23:19 [id number] 08:25:45 Test Item Value Reference Range Interpretation Comments PHOSPHORUS (BEAKER) (test code = 4.5 mg/dL 2.3-4.7 604) Wireworker Supervisor ID - MARCOPOCT-GLUCOSE [id number] 07:49:06 Test Item Value Reference Range Interpretation Comments POC-GLUCOSE METER 183 mg/dL 70-110 H : TESTED A T [facility] 6720 (JOLEEN) (test code = [facility], 1538) [id number]: Wireworker Supervisor/Techni josafat ID = [id number] for Fr ost, Aury BASIC METABOLIC [id number] 04:10:56 Test Item Value Reference Range Interpretation Comments SODIUM (BEAKER) 124 meq/L 136-145 L (test code = 381) POTASSIUM 3.8 meq/L 3.5-5.1 (BEAKER) (test code = 379) CHLORIDE (BEAKER) 88 meq/L 98-107 L (test code = 382) CO2 (BEAKER) 23 meq/L 22-29 (test code = 355) BLOOD UREA 100 mg/dL 7-21 H NITROGEN (BEAKER) (test code = 354) CREATININE 3.08 mg/dL 0.57-1.25 H (BEAKER) (test code = 358) GLUCOSE RANDOM 163 mg/dL 70-105 H (BEAKER) (test code = 652) CALCIUM (BEAKER) 8.8 mg/dL 8.4-10.2 (test code = 697) EGFR (BEAKER) 21 Interpretatio n of eGFR (test code = mL/min/1.73 values Stage De scription 1092) sq m Result G1 Hillary l or high >=90 G2 Mildly decreased 60-89 G3a Mildl y to moderately 45-5 9 G3b Moderately to s everely 30-44 G4 Severl y decreased 15-29 G5 Kidney failure <15Reported eGF R is based on the CKD-EPI 1 equation that d oes not use a race coefficientEsti mated GFR is not as accur ate as Creatinine Siobhan rob in predicting glom erular filtration rate . Estimated GFR is not appl icable for dialysis patien ts Wireworker Supervisor ID - [id number] 03:40:09 Test Item Value Reference Range Interpretation Comments MAGNESIUM (BEAKER) (test code = 2.4 mg/dL 1.6-2.6 627) Wireworker Supervisor ID - [id number] 03:13:44 Test Item Value Reference Range Interpretation Comments PARTIAL THROMBOPLASTIN TIME 62.9 seconds 22.5-36.0 H (BEAKER) (test code = 760) CBC W/PLT COUNT & AUTO [id number] 03:10:53 Test Item Value Reference Range Interpretation Comments WHITE BLOOD CELL COUNT (BEAKER) 11.8 K/ L 3.5-10.5 H (test code = 775) RED BLOOD CELL COUNT (BEAKER) 2.86 M/ L 4.63-6.08 L (test code = 761) HEMOGLOBIN (BEAKER) (test code = 7.7 GM/DL 13.7-17.5 L 410) HEMATOCRIT (BEAKER) (test code = 23.5 % 40.1-51.0 L 411) MEAN CORPUSCULAR VOLUME (BEAKER) 82 fL 79-92 (test code = 753) MEAN CORPUSCULAR HEMOGLOBIN 26.9 pg 25.7-32.2 (BEAKER) (test code = 751) MEAN CORPUSCULAR HEMOGLOBIN CONC 32.8 GM/DL 32.3-36.5 (BEAKER) (test code = 752) RED CELL DISTRIBUTION WIDTH 18.7 % 11.6-14.4 H (BEAKER) (test code = 412) PLATELET COUNT (BEAKER) (test 423 K/CU MM 150-450 code = 756) MEAN PLATELET VOLUME (BEAKER) 9.2 fL 9.4-12.4 L (test code = 754) NUCLEATED RED BLOOD CELLS 0 /100 WBC 0-0 (BEAKER) (test code = 413) NEUTROPHILS RELATIVE PERCENT 89 % (BEAKER) (test code = 429) LYMPHOCYTES RELATIVE PERCENT 2 % (BEAKER) (test code = 430) MONOCYTES RELATIVE PERCENT 2 % (BEAKER) (test code = 431) EOSINOPHILS RELATIVE PERCENT 3 % (BEAKER) (test code = 432) BASOPHILS RELATIVE PERCENT 0 % (BEAKER) (test code = 437) NEUTROPHILS ABSOLUTE COUNT 10.54 K/ L 1.78-5.38 H (BEAKER) (test code = 670) LYMPHOCYTES ABSOLUTE COUNT 0.26 K/ L 1.32-3.57 L (BEAKER) (test code = 414) MONOCYTES ABSOLUTE COUNT (BEAKER) 0.19 K/ L 0.30-0.82 L (test code = 415) EOSINOPHILS ABSOLUTE COUNT 0.31 K/ L 0.04-0.54 (BEAKER) (test code = 416) BASOPHILS ABSOLUTE COUNT (BEAKER) 0.02 K/ L 0.01-0.08 (test code = 417) IMMATURE GRANULOCYTES-RELATIVE 4.20 % 0.00-1.00 H PERCENT (BEAKER) (test code = 2801) OXYGEN SATURATION, [id number] 03:00:03 Test Item Value Reference Range Interpretation Comments O2 SATURATION (MEASURED) (BEAKER) 64.1 % (test code = 1455) Arterial doppler legs [id number] 21:46:11Ejection FractionSLEH ECHO HEARTLAB MKCKESSON CPACHI [facility] 2022-12-20 20:16:29 Test Item Value Reference Range Interpretation Comments SODIUM (BEAKER) 123 meq/L 136-145 L (test code = 381) POTASSIUM 3.7 meq/L 3.5-5.1 (BEAKER) (test code = 379) CHLORIDE (BEAKER) 86 meq/L 98-107 L (test code = 382) CO2 (BEAKER) 24 meq/L 22-29 (test code = 355) BLOOD UREA 98 mg/dL 7-21 H NITROGEN (BEAKER) (test code = 354) CREATININE 3.18 mg/dL 0.57-1.25 H (BEAKER) (test code = 358) GLUCOSE RANDOM 187 mg/dL 70-105 H (BEAKER) (test code = 652) CALCIUM (BEAKER) 8.8 mg/dL 8.4-10.2 (test code = 697) EGFR (BEAKER) 20 Interpretatio n of eGFR (test code = mL/min/1.73 values Stage De scription 1092) sq m Result G1 Hillary l or high >=90 G2 Mildly decreased 60-89 G3a Mildl y to moderately 45-5 9 G3b Moderately to s everely 30-44 G4 Sever ly decreased 15-29 G5 Kidney failure <15Repo rted eGFR is based on the CKD-EPI 2020 equation t hat does not use a race coefficientEsti mated GFR is not as accur ate as Creatinine Siobhan rivas in predicting glom erular filtration rate . Estimated GFR is not appl icable for dialysis patien ts Wireworker Supervisor ID - [id number] 20:15:18 Test Item Value Reference Range Interpretation Comments MAGNESIUM (BEAKER) (test code = 2.4 mg/dL 1.6-2.6 627) Wireworker Supervisor ID - [id number] 20:12:39 Test Item Value Reference Range Interpretation Comments PARTIAL THROMBOPLASTIN TIME 38.7 seconds 22.5-36.0 H (BEAKER) (test code = 760) CALCIUM, [id number] 19:56:03 Test Item Value Reference Range Interpretation Comments CALCIUM IONIZED (BEAKER) (test 1.03 mmol/L 1.12-1.27 L code = 698) PH, BLOOD (BEAKER) (test code = 7.43 1810) OXYGEN SATURATION, [id number] 19:55:18 Test Item Value Reference Range Interpretation Comments O2 SATURATION (MEASURED) (BEAKER) 62.7 % (test code = 1455) POCT-GLUCOSE [id number] 18:11:37 Test Item Value Reference Range Interpretation Comments POC-GLUCOSE METER 160 mg/dL 70-110 H : TESTED A T [facility] 6720 (BEAKER) (test code = DOUGLAS C[facility] [place], 1538) [address]: Wireworker Supervisor/Techni josafat ID = [id number] for RE SCOTT, RAMESH BLOOD [id number] 15:00:41 Test Item Value Reference Range Interpretation Comments CULTURE (BEAKER) (test No growth in 5 days code = 1095) BLOOD [id number] 15:00:41 Test Item Value Reference Range Interpretation Comments CULTURE (BEAKER) (test No growth in 5 days code = 1095) The specimen volume collected for this blood culture was below the optimum (10 mL per bottle or 20 mL total). Use of lower volumes may adversely affect recovery and/or detection times of some organisms.BLOOD [id number] 14:09:30 Test Item Value Reference Range Interpretation Comments CULTURE (BEAKER) (test No growth in 5 days code = 1095) VITAMIN D, [id number] 14:00:54 Test Item Value Reference Range Interpretation Comments VITAMIN D 25-OH (BEAKER) (test 31.1 ng/mL 6.6-49.9 code = 2764) Effective 06/27/2017: Reference Range ChangeNew: 6.6-49.9 ng/mL Previous: 13.0- 47.8 ng/mLRecommendedVitamin D Target Range: 30.0-40.0 ng/mLOperator ID - ED [id number] 13:38:28 Test Item Value Reference Range Interpretation Comments PREALBUMIN (BEAKER) (test code = 586) 5 mg/dL 14-45 L Wireworker Supervisor ID - EDRAD, CHEST, 1 VIEW, NON [id number] 12:58:00Reason for exam:- >hypoxiaShould this be performed at the bedside?->Yes [facility] : 1950 Sex: MFINAL REPORT RAD, CHEST, 1 VIEW, NON DEPT INDICATION: hypoxia COMPARISON: Prior day's exam FINDINGS: Portable frontal view of the chest. IMPRESSION: Support Lines: No significant change. Lungs and pleura: Unchanged airspace and pleural opacities. No pneumothorax.Heart and mediastinum: Stable contours. Additional findings: None. Signed: Isiah Baptisteeport Verified Date/Time: 12/20/2022 12:58:17 [id number] 12:54:17 Test Item Value Reference Range Interpretation Comments FIBRINOGEN LEVEL (BEAKER) (test 998 mg/dl 225-434 H code = 658) CREATINE KINASE (CK)2022-12-20 12:48:58 Test Item Value Reference Range Interpretation Comments CREATINE KINASE TOTAL (BEAKER) (test 87 U/L 29-200 code = 380) Wireworker Supervisor ID - KEYONNA WBASIC METABOLIC [id number] 12:25:21 Test Item Value Reference Range Interpretation Comments SODIUM (BEAKER) 124 meq/L 136-145 L (test code = 381) POTASSIUM 3.3 meq/L 3.5-5.1 L (BEAKER) (test code = 379) CHLORIDE (BEAKER) 86 meq/L 98-107 L (test code = 382) CO2 (BEAKER) 22 meq/L 22-29 (test code = 355) BLOOD UREA 97 mg/dL 7-21 H NITROGEN (BEAKER) (test code = 354) CREATININE 3.08 mg/dL 0.57-1.25 H (BEAKER) (test code = 358) GLUCOSE RANDOM 123 mg/dL 70-105 H (BEAKER) (test code = 652) CALCIUM (BEAKER) 8.7 mg/dL 8.4-10.2 (test code = 697) EGFR (BEAKER) 21 Interpretatio n of eGFR (test code = mL/min/1.73 values Stage De scription 1092) sq m Result G1 Hillary l or high >=90 G2 Mildly decreased 60-89 G3a Mildl y to moderately 45-5 9 G3b Moderately to s everely 30-44 G4 Severl y decreased 15-29 G5 Kidney failure <15Reported eGF R is based on the CKD-EPI 2020 equation that d oes not use a race coefficientEsti mated GFR is not as accur ate as Creatinine Siobhan rob in predicting glom erular filtration rate . Estimated GFR is not appl icable for dialysis patien ts Wireworker Supervisor ID - [id number] 12:25:14 Test Item Value Reference Range Interpretation Comments MAGNESIUM (BEAKER) (test code = 2.5 mg/dL 1.6-2.6 627) Wireworker Supervisor ID - [id number] 12:15:28 Test Item Value Reference Range Interpretation Comments PARTIAL THROMBOPLASTIN TIME 41.0 seconds 22.5-36.0 H (BEAKER) (test code = 760) PROTHROMBIN TIME/[id number] 12:14:53 Test Item Value Reference Range Interpretation Comments PROTIME (BEAKER) (test code = 20.2 seconds 11.9-14.2 H 759) INR (BEAKER) (test code = 370) 1.85 <=5.90 RECOMMENDED COUMADIN/WARFARIN INR THERAPY RANGESSTANDARD DOSE: 2.0 - 3.0 Includes: PROPHYLAXIS for venous thrombosis, systemic embolization; TREATMENT for venous thrombosis and/or pulmonary embolus.HIGH RISK: Target INR is 2.5-3.5 for patients with mechanical heart valves.CBC W/PLT COUNT & AUTO [id number] 12:13:48 Test Item Value Reference Range Interpretation Comments WHITE BLOOD CELL COUNT (BEAKER) 13.6 K/ L 3.5-10.5 H (test code = 775) RED BLOOD CELL COUNT (BEAKER) 3.09 M/ L 4.63-6.08 L (test code = 761) HEMOGLOBIN (BEAKER) (test code = 8.2 GM/DL 13.7-17.5 L 410) HEMATOCRIT (BEAKER) (test code = 25.0 % 40.1-51.0 L 411) MEAN CORPUSCULAR VOLUME (BEAKER) 81 fL 79-92 (test code = 753) MEAN CORPUSCULAR HEMOGLOBIN 26.5 pg 25.7-32.2 (BEAKER) (test code = 751) MEAN CORPUSCULAR HEMOGLOBIN CONC 32.8 GM/DL 32.3-36.5 (BEAKER) (test code = 752) RED CELL DISTRIBUTION WIDTH 18.7 % 11.6-14.4 H (BEAKER) (test code = 412) PLATELET COUNT (BEAKER) (test 429 K/CU MM 150-450 code = 756) MEAN PLATELET VOLUME (BEAKER) 9.2 fL 9.4-12.4 L (test code = 754) NUCLEATED RED BLOOD CELLS 0 /100 WBC 0-0 (BEAKER) (test code = 413) NEUTROPHILS RELATIVE PERCENT 93 % (BEAKER) (test code = 429) LYMPHOCYTES RELATIVE PERCENT 2 % (BEAKER) (test code = 430) MONOCYTES RELATIVE PERCENT 1 % (BEAKER) (test code = 431) EOSINOPHILS RELATIVE PERCENT 2 % (BEAKER) (test code = 432) BASOPHILS RELATIVE PERCENT 0 % (BEAKER) (test code = 437) NEUTROPHILS ABSOLUTE COUNT 12.54 K/ L 1.78-5.38 H (BEAKER) (test code = 670) LYMPHOCYTES ABSOLUTE COUNT 0.21 K/ L 1.32-3.57 L (BEAKER) (test code = 414) MONOCYTES ABSOLUTE COUNT (BEAKER) 0.19 K/ L 0.30-0.82 L (test code = 415) EOSINOPHILS ABSOLUTE COUNT 0.23 K/ L 0.04-0.54 (BEAKER) (test code = 416) BASOPHILS ABSOLUTE COUNT (BEAKER) 0.02 K/ L 0.01-0.08 (test code = 417) IMMATURE GRANULOCYTES-RELATIVE 2.70 % 0.00-1.00 H PERCENT (BEAKER) (test code = 2801) POCT-GLUCOSE [id number] 11:58:47 Test Item Value Reference Range Interpretation Comments POC-GLUCOSE METER 125 mg/dL 70-110 H : TESTED A T [facility] 6720 (BEAKER) (test code = [place], 1538) [id number]: Wireworker Supervisor/Techni josafat ID = [id number] for SAM VAN OXYGEN SATURATION, [id number] 11:55:44 Test Item Value Reference Range Interpretation Comments O2 SATURATION (MEASURED) (BEAKER) 79.7 % (test code = 1455) CHOLESTEROL, [id number] 11:53:28 Test Item Value Reference Range Interpretation Comments CHOLESTEROL (BEAKER) (test code = 53 mg/dL 631) Cholesterol Reference Range: Low Risk <200 Borderline 200-239 High Risk >240 Wireworker Supervisor ID - KEYONNA BIJANACTATE DEHYDROGENASE (LDH)2022-12-20 11:48:01 Test Item Value Reference Range Interpretation Comments LACTATE DEHYDROGENASE (BEAKER) (test 699 U/L 125-220 H code = 635) Wireworker Supervisor ID - KEYONNA [id number] 11:48:01 Test Item Value Reference Range Interpretation Comments LIPASE (BEAKER) (test code = 749) 34 U/L 8-78 Wireworker Supervisor ID - KEYONNA WHEPATIC FUNCTION [id number] 11:48:00 Test Item Value Reference Range Interpretation Comments TOTAL PROTEIN (BEAKER) (test code = 6.0 gm/dL 6.0-8.3 770) ALBUMIN (BEAKER) (test code = 1145) 2.6 g/dL 3.5-5.0 L BILIRUBIN TOTAL (BEAKER) (test code 1.4 mg/dL 0.2-1.2 H = 377) BILIRUBIN DIRECT (BEAKER) (test 1.2 mg/dL 0.1-0.5 H code = 706) ALKALINE PHOSPHATASE (BEAKER) (test 73 U/L 40-150 code = 346) AST (SGOT) (BEAKER) (test code = 73 U/L 5-34 H 353) ALT (SGPT) (BEAKER) (test code = 28 U/L 6-55 347) Wireworker Supervisor ID - KEYONNA [id number] 11:48:00 Test Item Value Reference Range Interpretation Comments PHOSPHORUS (BEAKER) (test code = 4.8 mg/dL 2.3-4.7 H 604) Wireworker Supervisor ID - KEYONNA WPOCT-GLUCOSE [id number] 07:45:14 Test Item Value Reference Range Interpretation Comments POC-GLUCOSE METER 110 mg/dL 70-110 : TESTED A T [facility] 6720 (BEAKER) (test code = [place] C[place], 1538) [id number]: Wireworker Supervisor/Techni josafat ID = [id number] for SAM VAN BASIC METABOLIC [id number] 06:03:21 Test Item Value Reference Range Interpretation Comments SODIUM (BEAKER) 124 meq/L 136-145 L (test code = 381) POTASSIUM 3.7 meq/L 3.5-5.1 (BEAKER) (test code = 379) CHLORIDE (BEAKER) 86 meq/L 98-107 L (test code = 382) CO2 (BEAKER) 23 meq/L 22-29 (test code = 355) BLOOD UREA 93 mg/dL 7-21 H NITROGEN (BEAKER) (test code = 354) CREATININE 3.23 mg/dL 0.57-1.25 H (BEAKER) (test code = 358) GLUCOSE RANDOM 95 mg/dL 70-105 (BEAKER) (test code = 652) CALCIUM (BEAKER) 8.7 mg/dL 8.4-10.2 (test code = 697) EGFR (BEAKER) 20 Interpretatio n of eGFR (test code = mL/min/1.73 values Stage D escription 1092) sq m Result G1 Hillary l or high >=90 G2 Mildly decreased 60-89 G3a Mildl y to moderately 45-5 9 G3b Moderately to s everely 30-44 G4 Severl y decreased 15-29 G5 Kidney failure <15Reported eGF R is based on the CKD-EPI 2021 equation that d oes not use a race coefficientEsti mated GFR is not as accur ate as Creatinine Siobhan rivas in predicting glom erular filtration rate . Estimated GFR is not appl icable for dialysis patien ts Wireworker Supervisor ID - [id number] 06:00:55 Test Item Value Reference Range Interpretation Comments MAGNESIUM (BEAKER) (test code = 2.4 mg/dL 1.6-2.6 627) Wireworker Supervisor ID - [id number] 05:53:09 Test Item Value Reference Range Interpretation Comments PARTIAL THROMBOPLASTIN TIME 66.7 seconds 22.5-36.0 H (BEAKER) (test code = 760) CBC W/PLT COUNT & AUTO [id number] 05:51:33 Test Item Value Reference Range Interpretation Comments WHITE BLOOD CELL COUNT (BEAKER) 13.9 K/ L 3.5-10.5 H (test code = 775) RED BLOOD CELL COUNT (BEAKER) 3.06 M/ L 4.63-6.08 L (test code = 761) HEMOGLOBIN (BEAKER) (test code = 8.2 GM/DL 13.7-17.5 L 410) HEMATOCRIT (BEAKER) (test code = 24.7 % 40.1-51.0 L 411) MEAN CORPUSCULAR VOLUME (BEAKER) 81 fL 79-92 (test code = 753) MEAN CORPUSCULAR HEMOGLOBIN 26.8 pg 25.7-32.2 (BEAKER) (test code = 751) MEAN CORPUSCULAR HEMOGLOBIN CONC 33.2 GM/DL 32.3-36.5 (BEAKER) (test code = 752) RED CELL DISTRIBUTION WIDTH 18.6 % 11.6-14.4 H (BEAKER) (test code = 412) PLATELET COUNT (BEAKER) (test 437 K/CU MM 150-450 code = 756) MEAN PLATELET VOLUME (BEAKER) 9.2 fL 9.4-12.4 L (test code = 754) NUCLEATED RED BLOOD CELLS 0 /100 WBC 0-0 (BEAKER) (test code = 413) NEUTROPHILS RELATIVE PERCENT 88 % (BEAKER) (test code = 429) LYMPHOCYTES RELATIVE PERCENT 3 % (BEAKER) (test code = 430) MONOCYTES RELATIVE PERCENT 2 % (BEAKER) (test code = 431) EOSINOPHILS RELATIVE PERCENT 5 % (BEAKER) (test code = 432) BASOPHILS RELATIVE PERCENT 0 % (BEAKER) (test code = 437) NEUTROPHILS ABSOLUTE COUNT 12.27 K/ L 1.78-5.38 H (BEAKER) (test code = 670) LYMPHOCYTES ABSOLUTE COUNT 0.39 K/ L 1.32-3.57 L (BEAKER) (test code = 414) MONOCYTES ABSOLUTE COUNT (BEAKER) 0.22 K/ L 0.30-0.82 L (test code = 415) EOSINOPHILS ABSOLUTE COUNT 0.64 K/ L 0.04-0.54 H (BEAKER) (test code = 416) BASOPHILS ABSOLUTE COUNT (BEAKER) 0.05 K/ L 0.01-0.08 (test code = 417) IMMATURE GRANULOCYTES-RELATIVE 2.70 % 0.00-1.00 H PERCENT (BEAKER) (test code = 2801) LACTIC ACID, [id number] 05:27:42 Test Item Value Reference Range Interpretation Comments LACTATE BLOOD VENOUS (2) (BEAKER) 0.87 mmol/L 0.50-2.00 (test code = 2872) Wireworker Supervisor ID - ADMINBLOOD [id number] 21:00:20 Test Item Value Reference Range Interpretation Comments CULTURE (BEAKER) (test No growth in 5 days code = 1095) The specimen volume collected for this blood culture was below the optimum (10 mL per bottle or 20 mL total). Use of lower volumes may adversely affect recovery and/or detection times of some organisms.BASIC METABOLIC PANEL 2022-12-19 20:16:43 Test Item Value Reference Range Interpretation Comments SODIUM (BEAKER) 123 meq/L 136-145 L (test code = 381) POTASSIUM 3.7 meq/L 3.5-5.1 (BEAKER) (test code = 379) CHLORIDE (BEAKER) 86 meq/L 98-107 L (test code = 382) CO2 (BEAKER) 24 meq/L 22-29 (test code = 355) BLOOD UREA 91 mg/dL 7-21 H NITROGEN (BEAKER) (test code = 354) CREATININE 3.25 mg/dL 0.57-1.25 H (BEAKER) (test code = 358) GLUCOSE RANDOM 130 mg/dL 70-105 H (BEAKER) (test code = 652) CALCIUM (BEAKER) 8.5 mg/dL 8.4-10.2 (test code = 697) EGFR (BEAKER) 20 Interpretatio n of eGFR (test code = mL/min/1.73 values Stage De scription 1092) sq m Result G1 Hillary l or high >=90 G2 Mildly decreased 60-89 G3a Mildl y to moderately 45-5 9 G3b Moderately to s everely 30-44 G4 Severl y decreased 15-29 G5 Kidney failure <15Reported eGF R is based on the CKD-EPI 2020 equation that d oes not use a race coefficientEsti mated GFR is not as accur ate as Creatinine Siobhan rivas in predicting glom erular filtration rate . Estimated GFR is not appl icable for dialysis patien ts Wireworker Supervisor ID - [id number] 20:16:21 Test Item Value Reference Range Interpretation Comments MAGNESIUM (BEAKER) (test code = 2.4 mg/dL 1.6-2.6 627) Wireworker Supervisor ID - ADMINT4, [id number] 19:15:30 Test Item Value Reference Range Interpretation Comments FREE T4 (BEAKER) (test code = 655) 0.66 ng/dL 0.70-1.48 L Wireworker Supervisor ID - BSTSH/FREE T4 IF [id number] 19:14:20 Test Item Value Reference Range Interpretation Comments THYROID STIMULATING HORMONE 7.862 uIU/mL 0.350-4.940 H (BEAKER) (test code = 772) Wireworker Supervisor ID - [id number] 17:28:57 Test Item Value Reference Range Interpretation Comments PARTIAL THROMBOPLASTIN TIME 76.0 seconds 22.5-36.0 H (BEAKER) (test code = 760) POCT-GLUCOSE [id number] 16:53:33 Test Item Value Reference Range Interpretation Comments POC-GLUCOSE METER 194 mg/dL 70-110 H : TESTED A T [facility] 6720 (BEAKER) (test code = [place], 1538) [address]: Wireworker Supervisor/Techni josafat ID = [id number] for Zuleyma richter (contract), [facility] oz BASIC METABOLIC [id number] 12:37:57 Test Item Value Reference Range Interpretation Comments SODIUM (BEAKER) 124 meq/L 136-145 L (test code = 381) POTASSIUM 3.9 meq/L 3.5-5.1 (BEAKER) (test code = 379) CHLORIDE (BEAKER) 87 meq/L 98-107 L (test code = 382) CO2 (BEAKER) 24 meq/L 22-29 (test code = 355) BLOOD UREA 90 mg/dL 7-21 H NITROGEN (BEAKER) (test code = 354) CREATININE 3.35 mg/dL 0.57-1.25 H (BEAKER) (test code = 358) GLUCOSE RANDOM 150 mg/dL 70-105 H (BEAKER) (test code = 652) CALCIUM (BEAKER) 8.8 mg/dL 8.4-10.2 (test code = 697) EGFR (BEAKER) 19 Interpretatio n of eGFR (test code = mL/min/1.73 values Stage De scription 1092) sq m Result G1 Hillary l or high >=90 G2 Mildly decreased 60-89 G3a Mildl y to moderately 45-5 9 G3b Moderately to s everely 30-44 G4 Severl y decreased 15-29 G5 Kidney failure <15Reported eGF R is based on the CKD-EPI 2020 equation that d oes not use a race coefficientEsti mated GFR is not as accur ate as Creatinine Siobhan rob in predicting glom erular filtration rate . Estimated GFR is not appl icable for dialysis patien ts Wireworker Supervisor ID - [id number] 12:37:50 Test Item Value Reference Range Interpretation Comments MAGNESIUM (BEAKER) (test code = 2.4 mg/dL 1.6-2.6 627) Wireworker Supervisor ID - [id number] 11:38:31 Test Item Value Reference Range Interpretation Comments PARTIAL THROMBOPLASTIN TIME 71.6 seconds 22.5-36.0 H (BEAKER) (test code = 760) POCT-GLUCOSE [id number] 11:25:46 Test Item Value Reference Range Interpretation Comments POC-GLUCOSE METER 157 mg/dL 70-110 H : TESTED A T [facility] 6720 (BEAKER) (test code = DOUGLAS Peña [facility], 1538) [address]: Wireworker Supervisor/Techni josafat ID = [id number] for Zuleyma richter (contract), [facility] oz RAD, CHEST, 1 VIEW, NON [id number] 08:17:00Reason for exam:- >hypoxiaShould this be performed at the bedside?->Yes [facility] : 1950 Sex: MFINAL REPORT RAD, CHEST, 1 VIEW, NON DEPT INDICATION: hypoxia COMPARISON: Prior day's exam FINDINGS: Portable frontal view of the chest. IMPRESSION: Support Lines: No significant change. Lungs and pleura: Unchanged extensive bilateral airspace opacities. No pneumothorax.Heart and mediastinum: Stable contours. Additional findings: None. Signed: Isiah Baptiste MDReport Verified Date/Time: 12/19/2022 08:17:08 POCT-GLUCOSE [id number] 08:13:27 Test Item Value Reference Range Interpretation Comments POC-GLUCOSE METER 109 mg/dL 70-110 : TESTED A T [facility] 6720 (BEAKER) (test code = DOUGLAS Peña [facility], 1538) [id number]: Wireworker Supervisor/Techni josafat ID = [id number] for Zuleyma richter (contract), [facility] BASIC METABOLIC [id number] 05:11:28 Test Item Value Reference Range Interpretation Comments SODIUM (BEAKER) 126 meq/L 136-145 L (test code = 381) POTASSIUM 3.6 meq/L 3.5-5.1 (BEAKER) (test code = 379) CHLORIDE (BEAKER) 87 meq/L 98-107 L (test code = 382) CO2 (BEAKER) 24 meq/L 22-29 (test code = 355) BLOOD UREA 90 mg/dL 7-21 H NITROGEN (BEAKER) (test code = 354) CREATININE 3.26 mg/dL 0.57-1.25 H (BEAKER) (test code = 358) GLUCOSE RANDOM 99 mg/dL 70-105 (BEAKER) (test code = 652) CALCIUM (BEAKER) 8.6 mg/dL 8.4-10.2 (test code = 697) EGFR (BEAKER) 20 Interpretatio n of eGFR (test code = mL/min/1.73 values Stage De scription 1092) sq m Result G1 Hillary l or high >=90 G2 Mildly decreased 60-89 G3a Mildl y to moderately 45-5 9 G3b Moderately to s everely 30-44 G4 Severl y decreased 15-29 G5 Kidney failure <15Reported eGF R is based on the CKD-EPI 2020 equation that d oes not use a race coefficientEsti mated GFR is not as accur ate as Creatinine Siobhan rob in predicting glom erular filtration rate . Estimated GFR is not appl icable for dialysis patien ts Wireworker Supervisor ID - BSHEPATIC FUNCTION [id number] 05:10:01 Test Item Value Reference Range Interpretation Comments TOTAL PROTEIN (BEAKER) (test code = 6.0 gm/dL 6.0-8.3 770) ALBUMIN (BEAKER) (test code = 1145) 2.6 g/dL 3.5-5.0 L BILIRUBIN TOTAL (BEAKER) (test code 1.3 mg/dL 0.2-1.2 H = 377) BILIRUBIN DIRECT (BEAKER) (test 0.9 mg/dL 0.1-0.5 H code = 706) ALKALINE PHOSPHATASE (BEAKER) (test 63 U/L 40-150 code = 346) AST (SGOT) (BEAKER) (test code = 42 U/L 5-34 H 353) ALT (SGPT) (BEAKER) (test code = 26 U/L 6-55 347) Wireworker Supervisor ID - [id number] 05:10:00 Test Item Value Reference Range Interpretation Comments MAGNESIUM (BEAKER) (test code = 2.4 mg/dL 1.6-2.6 627) Wireworker Supervisor ID - BSLACTIC ACID, [id number] 05:04:37 Test Item Value Reference Range Interpretation Comments LACTATE BLOOD VENOUS (2) (BEAKER) 0.77 mmol/L 0.50-2.00 (test code = 2872) Wireworker Supervisor ID - [id number] 05:03:20 Test Item Value Reference Range Interpretation Comments PARTIAL THROMBOPLASTIN TIME 61.4 seconds 22.5-36.0 H (BEAKER) (test code = 760) CBC W/PLT COUNT & AUTO [id number] 04:52:40 Test Item Value Reference Range Interpretation Comments WHITE BLOOD CELL COUNT (BEAKER) 13.6 K/ L 3.5-10.5 H (test code = 775) RED BLOOD CELL COUNT (BEAKER) 3.03 M/ L 4.63-6.08 L (test code = 761) HEMOGLOBIN (BEAKER) (test code = 8.2 GM/DL 13.7-17.5 L 410) HEMATOCRIT (BEAKER) (test code = 24.6 % 40.1-51.0 L 411) MEAN CORPUSCULAR VOLUME (BEAKER) 81 fL 79-92 (test code = 753) MEAN CORPUSCULAR HEMOGLOBIN 27.1 pg 25.7-32.2 (BEAKER) (test code = 751) MEAN CORPUSCULAR HEMOGLOBIN CONC 33.3 GM/DL 32.3-36.5 (BEAKER) (test code = 752) RED CELL DISTRIBUTION WIDTH 18.4 % 11.6-14.4 H (BEAKER) (test code = 412) PLATELET COUNT (BEAKER) (test 403 K/CU MM 150-450 code = 756) MEAN PLATELET VOLUME (BEAKER) 9.0 fL 9.4-12.4 L (test code = 754) NUCLEATED RED BLOOD CELLS 0 /100 WBC 0-0 (BEAKER) (test code = 413) NEUTROPHILS RELATIVE PERCENT 86 % (BEAKER) (test code = 429) LYMPHOCYTES RELATIVE PERCENT 3 % (BEAKER) (test code = 430) MONOCYTES RELATIVE PERCENT 2 % (BEAKER) (test code = 431) EOSINOPHILS RELATIVE PERCENT 7 % (BEAKER) (test code = 432) BASOPHILS RELATIVE PERCENT 0 % (BEAKER) (test code = 437) NEUTROPHILS ABSOLUTE COUNT 11.71 K/ L 1.78-5.38 H (BEAKER) (test code = 670) LYMPHOCYTES ABSOLUTE COUNT 0.41 K/ L 1.32-3.57 L (BEAKER) (test code = 414) MONOCYTES ABSOLUTE COUNT (BEAKER) 0.23 K/ L 0.30-0.82 L (test code = 415) EOSINOPHILS ABSOLUTE COUNT 0.95 K/ L 0.04-0.54 H (BEAKER) (test code = 416) BASOPHILS ABSOLUTE COUNT (BEAKER) 0.05 K/ L 0.01-0.08 (test code = 417) IMMATURE GRANULOCYTES-RELATIVE 1.70 % 0.00-1.00 H PERCENT (BEAKER) (test code = 2801) BASIC METABOLIC [id number] 21:03:36 Test Item Value Reference Range Interpretation Comments SODIUM (BEAKER) 123 meq/L 136-145 L (test code = 381) POTASSIUM 4.0 meq/L 3.5-5.1 (BEAKER) (test code = 379) CHLORIDE (BEAKER) 86 meq/L 98-107 L (test code = 382) CO2 (BEAKER) 23 meq/L 22-29 (test code = 355) BLOOD UREA 86 mg/dL 7-21 H NITROGEN (BEAKER) (test code = 354) CREATININE 3.22 mg/dL 0.57-1.25 H (BEAKER) (test code = 358) GLUCOSE RANDOM 143 mg/dL 70-105 H (BEAKER) (test code = 652) CALCIUM (BEAKER) 8.7 mg/dL 8.4-10.2 (test code = 697) EGFR (BEAKER) 20 Interpretatio n of eGFR (test code = mL/min/1.73 values Stage De scription 1092) sq m Result G1 Hillary l or high >=90 G2 Mildly decreased 60-89 G3a Mildl y to moderately 45-5 9 G3b Moderately to s everely 30-44 G4 Severl y decreased 15-29 G5 Kidney failure <15Reported eGF R is based on the CKD-EPI 2020 equation that d oes not use a race coefficientEsti mated GFR is not as accur ate as Creatinine Siobhan rivas in predicting glom erular filtration rate . Estimated GFR is not appl icable for dialysis patien ts Wireworker Supervisor ID - [id number] 21:02:21 Test Item Value Reference Range Interpretation Comments MAGNESIUM (BEAKER) (test code = 2.4 mg/dL 1.6-2.6 627) Wireworker Supervisor ID - BSPOCT-GLUCOSE [id number] 20:51:57 Test Item Value Reference Range Interpretation Comments POC-GLUCOSE METER 146 mg/dL 70-110 H : [facility] (BEAKER) (test code = D[place]GLAS CID [place], 1538) [address]: Wireworker Supervisor/Techni josafat ID = [id number] for ROSA M BETANCOURT CALCIUM, [id number] 18:02:46 Test Item Value Reference Range Interpretation Comments CALCIUM IONIZED (BEAKER) (test 1.03 mmol/L 1.12-1.27 L code = 698) PH, BLOOD (BEAKER) (test code = 7.48 1810) POCT-GLUCOSE [id number] 16:35:41 Test Item Value Reference Range Interpretation Comments POC-GLUCOSE METER 227 mg/dL 70-110 H : [facility] ([facility] (test code = D[place]AS CID [place], 1538) [address]: Wireworker Supervisor/Techni josafat ID = [id number] for Donna Melo RAD, ABDOMEN/KUB, 1 VIEW [id number] 15:13:00Reason for exam:->abddominal painShould this be performed at the bedside?->Yes [facility] : 1950 Sex: MFINAL REPORT RAD, ABDOMEN/KUB, 1 VIEW AP TECHNIQUE: Supine radiograph(s) of the abdomen and pelvis. HISTORY: abdominal pain COMPARISON: None IMPRESSION: Lines and tubes: Miller catheter. Partially visualized cardiac leads. Bowel gas pattern: Nonobstructive bowel gas pattern. Moderate amountof stool in the transverse and descending colon. Other: No acute osseous abnormality. Signed: Olga Wolf Verified Date/Time: 12/18/2022 15:13:51 BASI METABOLIC PANEL 2022-12-18 12:55:13 Test Item Value Reference Range Interpretation Comments SODIUM (BEAKER) 124 meq/L 136-145 L (test code = 381) POTASSIUM 4.3 meq/L 3.5-5.1 (BEAKER) (test code = 379) CHLORIDE (BEAKER) 85 meq/L 98-107 L (test code = 382) CO2 (BEAKER) 25 meq/L 22-29 (test code = 355) BLOOD UREA 86 mg/dL 7-21 H NITROGEN (BEAKER) (test code = 354) CREATININE 3.38 mg/dL 0.57-1.25 H (BEAKER) (test code = 358) GLUCOSE RANDOM 158 mg/dL 70-105 H (BEAKER) (test code = 652) CALCIUM (BEAKER) 9.2 mg/dL 8.4-10.2 (test code = 697) EGFR (BEAKER) 19 Interpretatio n of eGFR (test code = mL/min/1.73 values Stage De scription 1092) sq m Result G1 Hillary l or high >=90 G2 Mildly decreased 60-89 G3a Mildl y to moderately 45-5 9 G3b Moderately to s everely 30-44 G4 Severl y decreased 15-29 G5 Kidney failure <15Reported eGF R is based on the CKD-EPI 2020 equation that d oes not use a race coefficientEsti mated GFR is not as accur ate as Creatinine Siobhan rob in predicting glom erular filtration rate . Estimated GFR is not appl icable for dialysis patien ts Wireworker Supervisor ID - [id number] 12:50:42 Test Item Value Reference Range Interpretation Comments MAGNESIUM (BEAKER) (test code = 2.4 mg/dL 1.6-2.6 627) Wireworker Supervisor ID - MARCOPOCT-GLUCOSE [id number] 11:23:12 Test Item Value Reference Range Interpretation Comments POC-GLUCOSE METER 167 mg/dL 70-110 H : TESTED A T [facility] 6720 (BEAKER) (test code = DOUGLAS Melissa [facility], 1538) [address]: Wireworker Supervisor/Techni josafat ID = [id number] for Sh Karlie irizarry POCT-GLUCOSE [id number] 08:01:47 Test Item Value Reference Range Interpretation Comments POC-GLUCOSE METER 108 mg/dL 70-110 : TESTED A T [facility] 6720 (BEAKER) (test code = DOUGLAS CID [place], 1538) [address]: Wireworker Supervisor/Techni josafat ID = [id number] for Donna Melo RAD, CHEST, 1 VIEW, NON [id number] 06:10:00Reason for exam:- >hypoxiaShould this be performed at the bedside?->Yes [facility] 1950 Sex: MFINAL REPORT RAD, CHEST, 1 VIEW, NON DEPT INDICATION: hypoxia COMPARISON: Prior day's exam FINDINGS: Portable frontal view of the chest. IMPRESSION: Support Lines: No significant change. Lungs and pleura: Unchanged patchy airspace opacities suggestive of multifocal pneumonia or edema. No pn eumothorax.Heart and mediastinum: Stable contours. Additional findings: None. Signed: Isiah Baptiste MDRjay Verified Date/Time: 12/18/2022 06:10:21 Electronically signed by: Cassy DE LA CRUZ 12/18/2022 06:10 AMLACTIC ACID, [id number] 04:17:24 Test Item Value Reference Range Interpretation Comments LACTATE BLOOD VENOUS (2) (BEAKER) 0.81 mmol/L 0.50-2.20 (test code = 2872) Wireworker Supervisor ID - BSBASIC METABOLIC [id number] 04:13:52 Test Item Value Reference Range Interpretation Comments SODIUM (BEAKER) 125 meq/L 136-145 L (test code = 381) POTASSIUM 3.3 meq/L 3.5-5.1 L (BEAKER) (test code = 379) CHLORIDE (BEAKER) 85 meq/L 98-107 L (test code = 382) CO2 (BEAKER) 27 meq/L 22-29 (test code = 355) BLOOD UREA 81 mg/dL 7-21 H NITROGEN (BEAKER) (test code = 354) CREATININE 3.08 mg/dL 0.57-1.25 H (BEAKER) (test code = 358) GLUCOSE RANDOM 73 mg/dL 70-105 (BEAKER) (test code = 652) CALCIUM (BEAKER) 8.6 mg/dL 8.4-10.2 (test code = 697) EGFR (BEAKER) 21 Interpretatio n of eGFR (test code = mL/min/1.73 values Stage De scription 1092) sq m Result G1 Hillary l or high >=90 G2 Mildly decreased 60-89 G3a Mildl y to moderately 45-5 9 G3b Moderately to s everely 30-44 G4 Severl y decreased 15-29 G5 Kidney failure <15Reported eGF R is based on the CKD-EPI 2020 equation that d oes not use a race coefficientEsti mated GFR is not as accur ate as Creatinine Siobhan rob in predicting glom erular filtration rate . Estimated GFR is not appl icable for dialysis patien ts Wireworker Supervisor ID - [id number] 04:13:08 Test Item Value Reference Range Interpretation Comments MAGNESIUM (BEAKER) (test code = 2.3 mg/dL 1.6-2.6 627) Wireworker Supervisor ID - [id number] 03:55:01 Test Item Value Reference Range Interpretation Comments PARTIAL THROMBOPLASTIN TIME 65.2 seconds 22.5-36.0 H (BEAKER) (test code = 760) POCT-GLUCOSE [id number] 03:54:50 Test Item Value Reference Range Interpretation Comments POC-GLUCOSE METER 131 mg/dL 70-110 H : Notified RN/MD: (JOLEEN) (test code = TESTED AT [facility] [id number]) [facility], [id number]: Wireworker Supervisor/Techni josafat ID = [id number] for TIFFANIE BOOGIE OXYGEN SATURATION, [id number] 03:45:18 Test Item Value Reference Range Interpretation Comments O2 SATURATION (MEASURED) (BEAKER) 70.3 % (test code = 1455) POCT-GLUCOSE [id number] 03:30:20 Test Item Value Reference Range Interpretation Comments POC-GLUCOSE METER 66 mg/dL 70-110 L : TESTED A T [facility] 6720 (BEAKER) (test code = [place], 1538) [id number]: Wireworker Supervisor/Techni josafat ID = [id number] for Brenda Nicolas BASIC METABOLIC [id number] 23:14:36 Test Item Value Reference Range Interpretation Comments SODIUM (BEAKER) 126 meq/L 136-145 L (test code = 381) POTASSIUM 3.5 meq/L 3.5-5.1 (BEAKER) (test code = 379) CHLORIDE (BEAKER) 85 meq/L 98-107 L (test code = 382) CO2 (BEAKER) 27 meq/L 22-29 (test code = 355) BLOOD UREA 82 mg/dL 7-21 H NITROGEN (BEAKER) (test code = 354) CREATININE 3.19 mg/dL 0.57-1.25 H (BEAKER) (test code = 358) GLUCOSE RANDOM 78 mg/dL 70-105 (BEAKER) (test code = 652) CALCIUM (BEAKER) 8.7 mg/dL 8.4-10.2 (test code = 697) EGFR (BEAKER) 20 Interpretatio n of eGFR (test code = mL/min/1.73 values Stage De scription 1092) sq m Result G1 Norm al or high >=90 G2 Mildly decreased 60-89 G3a Mildl y to moderately 45-5 9 G3b Moderately to s everely 30-44 G4 Severl y decreased 15-29 G5 Kidney failure <15Reported eGF R is based on the CKD-EPI 1 equation that d oes not use a race coefficientEsti mated GFR is not as accur ate as Creatinine Siobhan rivas in predicting glom erular filtration rate . Estimated GFR is not appl icable for dialysis patien ts Wireworker Supervisor ID - [id number] 22:59:23 Test Item Value Reference Range Interpretation Comments MAGNESIUM (BEAKER) (test code = 2.4 mg/dL 1.6-2.6 627) Wireworker Supervisor ID - BSPOCT-GLUCOSE [id number] 22:12:31 Test Item Value Reference Range Interpretation Comments POC-GLUCOSE METER 89 mg/dL 70-110 : TESTED A T [facility] 6720 (BEAKER) (test code = DOUGLAS Peña [place], 1538) [address]: Wireworker Supervisor/Techni josafat ID = [id number] for TIFFANIE BECKMAN POCT-GLUCOSE [id number] 16:18:10 Test Item Value Reference Range Interpretation Comments POC-GLUCOSE METER 118 mg/dL 70-110 H : TESTED A T [facility] 6720 (BEAKER) (test code = DOUGLAS Peña [place], 1538) [address]: Wireworker Supervisor/Techni josafat ID = [id number] for Donna Melo BASIC METABOLIC [id number] 13:48:05 Test Item Value Reference Range Interpretation Comments SODIUM (BEAKER) 124 meq/L 136-145 L (test code = 381) POTASSIUM 3.7 meq/L 3.5-5.1 (BEAKER) (test code = 379) CHLORIDE (BEAKER) 85 meq/L 98-107 L (test code = 382) CO2 (BEAKER) 26 meq/L 22-29 (test code = 355) BLOOD UREA 78 mg/dL 7-21 H NITROGEN (BEAKER) (test code = 354) CREATININE 3.16 mg/dL 0.57-1.25 H (BEAKER) (test code = 358) GLUCOSE RANDOM 172 mg/dL 70-105 H (BEAKER) (test code = 652) CALCIUM (BEAKER) 8.6 mg/dL 8.4-10.2 (test code = 697) EGFR (BEAKER) 20 Interpretatio n of eGFR (test code = mL/min/1.73 values Stage De scription 1092) sq m Result G1 Hillary l or high >=90 G2 Mildly decreased 60-89 G3a Mildl y to moderately 45-5 9 G3b Moderately to s everely 30-44 G4 Severl y decreased 15-29 G5 Kidney failure <15Reported eGF R is based on the CKD-EPI 2021 equation that d oes not use a race coefficientEsti mated GFR is not as accur ate as Creatinine Siobhan rob in predicting glom erular filtration rate . Estimated GFR is not appl icable for dialysis patien ts Wireworker Supervisor ID - [id number] 13:42:44 Test Item Value Reference Range Interpretation Comments MAGNESIUM (BEAKER) (test code = 2.3 mg/dL 1.6-2.6 627) Wireworker Supervisor ID - BSPOCT-GLUCOSE [id number] 12:12:25 Test Item Value Reference Range Interpretation Comments POC-GLUCOSE METER 153 mg/dL 70-110 H : TESTED A T [facility] ([facility]) (test code = [facility] Melissa [facility], 1538) [address]: Wireworker Supervisor/Techni josafat ID = [id number] for Donna Melo POCT-GLUCOSE [id number] 11:43:31 Test Item Value Reference Range Interpretation Comments POC-GLUCOSE METER 92 mg/dL 70-110 : TESTED A T [facility] 67[facility] ([facility]) (test code = [facility], 1538) [address]: Wireworker Supervisor/Techni josafat ID = [id number] for ACCO S, NAIN POCT-GLUCOSE [id number] 08:02:55 Test Item Value Reference Range Interpretation Comments POC-GLUCOSE METER 98 mg/dL 70-110 : [facility] (test code = [facility] Melissa [facility], 1538) 90[address]: Wireworker Supervisor/Techni josafat ID = [id number] for ACCO S, NAIN RAD, CHEST, 1 VIEW, NON [id number] 07:06:00Reason for exam:- >hypoxiaShould this be performed at the bedside?->Yes [facility] : 1950 Sex: MFINAL REPORT RAD, CHEST, 1 VIEW, NON DEPT INDICATION: hypoxia COMPARISON: Prior day's exam FINDINGS: Portable frontal view of the chest. IMPRESSION: Support Lines: Pacer device. PICC tip overlies the atriocaval junction. Lungs and pleura: Unchanged bilateral airspace opacities concerning f or multifocal pneumonia versus multifocal edema. No significant pneumothorax. Heart and mediastinum:Stable contours. Stable surgical changes. Additional findings: None. Signed: Shree Holman MDReport Verified Date/Time: 12/17/2022 07:06:57 BASIC METABOLIC [id number] 05:33:41 Test Item Value Reference Range Interpretation Comments SODIUM (BEAKER) 128 meq/L 136-145 L (test code = 381) POTASSIUM 3.6 meq/L 3.5-5.1 (BEAKER) (test code = 379) CHLORIDE (BEAKER) 87 meq/L 98-107 L (test code = 382) CO2 (BEAKER) 28 meq/L 22-29 (test code = 355) BLOOD UREA 79 mg/dL 7-21 H NITROGEN (BEAKER) (test code = 354) CREATININE 3.11 mg/dL 0.57-1.25 H (BEAKER) (test code = 358) GLUCOSE RANDOM 86 mg/dL 70-105 (BEAKER) (test code = 652) CALCIUM (BEAKER) 9.0 mg/dL 8.4-10.2 (test code = 697) EGFR (BEAKER) 21 Interpretatio n of eGFR (test code = mL/min/1.73 values Stage De scription 1092) sq m Result G1 Hillary l or high >=90 G2 Mildly decreased 60-89 G3a Mildl y to moderately 45-5 9 G3b Moderately to s everely 30-44 G4 Sever ly decreased 15-29 G5 Kidney failure <15Repo rted eGFR is based on the CKD-EPI 2020 equation t hat does not use a race coefficientEsti mated GFR is not as accur ate as Creatinine Siobhan rivas in predicting glom erular filtration rate . Estimated GFR is not appl icable for dialysis patien ts Wireworker Supervisor ID - MARCOURIC [id number] 05:31:08 Test Item Value Reference Range Interpretation Comments URIC ACID (BEAKER) (test code = 12.6 mg/dL 2.6-7.2 H 773) Wireworker Supervisor ID - MARCOHEPATIC FUNCTION [id number] 05:31:08 Test Item Value Reference Range Interpretation Comments TOTAL PROTEIN (BEAKER) (test code = 6.0 gm/dL 6.0-8.3 770) ALBUMIN (BEAKER) (test code = 1145) 2.8 g/dL 3.5-5.0 L BILIRUBIN TOTAL (BEAKER) (test code 1.1 mg/dL 0.2-1.2 = 377) BILIRUBIN DIRECT (BEAKER) (test 0.8 mg/dL 0.1-0.5 H code = 706) ALKALINE PHOSPHATASE (BEAKER) (test 48 U/L 40-150 code = 346) AST (SGOT) (BEAKER) (test code = 47 U/L 5-34 H 353) ALT (SGPT) (BEAKER) (test code = 32 U/L 6-55 347) Wireworker Supervisor ID - [id number] 05:31:07 Test Item Value Reference Range Interpretation Comments MAGNESIUM (BEAKER) (test code = 2.2 mg/dL 1.6-2.6 627) Wireworker Supervisor ID - [id number] 05:25:24 Test Item Value Reference Range Interpretation Comments PARTIAL THROMBOPLASTIN TIME 72.7 seconds 22.5-36.0 H (BEAKER) (test code = 760) PH, [id number] 05:24:56 Test Item Value Reference Range Interpretation Comments PH VENOUS (BEAKER) (test code = 701) 7.44 7.32-7.42 H OXYGEN SATURATION, [id number] 05:23:24 Test Item Value Reference Range Interpretation Comments O2 SATURATION (MEASURED) (BEAKER) 92.5 % (test code = 1455) CBC W/PLT COUNT & AUTO [id number] 05:18:24 Test Item Value Reference Range Interpretation Comments WHITE BLOOD CELL COUNT (BEAKER) 14.5 K/ L 3.5-10.5 H (test code = 775) RED BLOOD CELL COUNT (BEAKER) 3.10 M/ L 4.63-6.08 L (test code = 761) HEMOGLOBIN (BEAKER) (test code = 8.5 GM/DL 13.7-17.5 L 410) HEMATOCRIT (BEAKER) (test code = 26.0 % 40.1-51.0 L 411) MEAN CORPUSCULAR VOLUME (BEAKER) 84 fL 79-92 (test code = 753) MEAN CORPUSCULAR HEMOGLOBIN 27.4 pg 25.7-32.2 (BEAKER) (test code = 751) MEAN CORPUSCULAR HEMOGLOBIN CONC 32.7 GM/DL 32.3-36.5 (BEAKER) (test code = 752) RED CELL DISTRIBUTION WIDTH 18.1 % 11.6-14.4 H (BEAKER) (test code = 412) PLATELET COUNT (BEAKER) (test 382 K/CU MM 150-450 code = 756) MEAN PLATELET VOLUME (BEAKER) 9.8 fL 9.4-12.4 (test code = 754) NUCLEATED RED BLOOD CELLS 0 /100 WBC 0-0 (BEAKER) (test code = 413) NEUTROPHILS RELATIVE PERCENT 87 % (BEAKER) (test code = 429) LYMPHOCYTES RELATIVE PERCENT 2 % (BEAKER) (test code = 430) MONOCYTES RELATIVE PERCENT 3 % (BEAKER) (test code = 431) EOSINOPHILS RELATIVE PERCENT 7 % (BEAKER) (test code = 432) BASOPHILS RELATIVE PERCENT 0 % (BEAKER) (test code = 437) NEUTROPHILS ABSOLUTE COUNT 12.58 K/ L 1.78-5.38 H (BEAKER) (test code = 670) LYMPHOCYTES ABSOLUTE COUNT 0.34 K/ L 1.32-3.57 L (BEAKER) (test code = 414) MONOCYTES ABSOLUTE COUNT (BEAKER) 0.41 K/ L 0.30-0.82 (test code = 415) EOSINOPHILS ABSOLUTE COUNT 1.03 K/ L 0.04-0.54 H (BEAKER) (test code = 416) BASOPHILS ABSOLUTE COUNT (BEAKER) 0.05 K/ L 0.01-0.08 (test code = 417) IMMATURE GRANULOCYTES-RELATIVE 0.80 % 0.00-1.00 PERCENT (BEAKER) (test code = 2801) LACTIC ACID, [id number] 05:14:58 Test Item Value Reference Range Interpretation Comments LACTATE BLOOD VENOUS (2) (BEAKER) 0.85 mmol/L 0.50-2.20 (test code = 2872) Wireworker Supervisor ID - BSBASIC METABOLIC [id number] 20:40:28 Test Item Value Reference Range Interpretation Comments SODIUM (BEAKER) 125 meq/L 136-145 L (test code = 381) POTASSIUM 3.5 meq/L 3.5-5.1 (BEAKER) (test code = 379) CHLORIDE (BEAKER) 85 meq/L 98-107 L (test code = 382) CO2 (BEAKER) 27 meq/L 22-29 (test code = 355) BLOOD UREA 77 mg/dL 7-21 H NITROGEN (BEAKER) (test code = 354) CREATININE 3.11 mg/dL 0.57-1.25 H (BEAKER) (test code = 358) GLUCOSE RANDOM 104 mg/dL 70-105 (BEAKER) (test code = 652) CALCIUM (BEAKER) 8.7 mg/dL 8.4-10.2 (test code = 697) EGFR (BEAKER) 21 Interpretatio n of eGFR (test code = mL/min/1.73 values Stage De scription 1092) sq m Result G1 Hillary l or high >=90 G2 Mildly decreased 60-89 G3a Mildl y to moderately 45-5 9 G3b Moderately to s everely 30-44 G4 Severl y decreased 15-29 G5 Kidney failure <15Reported eGF R is based on the CKD-EPI 2020 equation that d oes not use a race coefficientEsti mated GFR is not as accur ate as Creatinine Siobhan rivas in predicting glom erular filtration rate . Estimated GFR is not appl icable for dialysis patien ts Wireworker Supervisor ID - [id number] 20:38:23 Test Item Value Reference Range Interpretation Comments MAGNESIUM (BEAKER) (test code = 2.3 mg/dL 1.6-2.6 627) Wireworker Supervisor ID - BSPOCT-GLUCOSE [id number] 20:18:01 Test Item Value Reference Range Interpretation Comments POC-GLUCOSE METER 111 mg/dL 70-110 H : TESTED A T [facility] (BEAKER) (test code = [place], 1538) [address]: Wireworker Supervisor/Techni josafat ID = [id number] for OLIVE ROSA M HUANG BASIC METABOLIC [id number] 20:00:26 Test Item Value Reference Range Interpretation Comments SODIUM (BEAKER) 127 meq/L 136-145 L (test code = 381) POTASSIUM 3.7 meq/L 3.5-5.1 (BEAKER) (test code = 379) CHLORIDE (BEAKER) 82 meq/L 98-107 L (test code = 382) CO2 (BEAKER) 27 meq/L 22-29 (test code = 355) BLOOD UREA 74 mg/dL 7-21 H NITROGEN (BEAKER) (test code = 354) CREATININE 3.25 mg/dL 0.57-1.25 H (BEAKER) (test code = 358) GLUCOSE RANDOM 111 mg/dL 70-105 H (BEAKER) (test code = 652) CALCIUM (BEAKER) 9.1 mg/dL 8.4-10.2 (test code = 697) EGFR (BEAKER) 20 Interpretatio n of eGFR (test code = mL/min/1.73 values Stage De scription 1092) sq m Result G1 Hillary l or high >=90 G2 Mildly decreased 60-89 G3a Mildl y to moderately 45-5 9 G3b Moderately to s everely 30-44 G4 Severl y decreased 15-29 G5 Kidney failure <15Reported eGF R is based on the CKD-EPI 2020 equation that d oes not use a race coefficientEsti mated GFR is not as accur ate as Creatinine Siobhan rob in predicting glom erular filtration rate . Estimated GFR is not appl icable for dialysis patien ts Wireworker Supervisor ID - [id number] 19:53:18 Test Item Value Reference Range Interpretation Comments MAGNESIUM (BEAKER) (test code = 2.3 mg/dL 1.6-2.6 627) Wireworker Supervisor ID - MMCREATINE KINASE (CK)2022-12-16 19:53:18 Test Item Value Reference Range Interpretation Comments CREATINE KINASE TOTAL (BEAKER) (test 42 U/L 29-200 code = 380) Wireworker Supervisor ID - MMPOCT-GLUCOSE [id number] 16:50:39 Test Item Value Reference Range Interpretation Comments POC-GLUCOSE METER 151 mg/dL 70-110 H : [facility] ([facility], = 1538) [address]: Wireworker Supervisor/Techni josafat ID = [id number] for TAVON LE DARLENE 2D Echo W/Doppler(CW/PW/Color)2022-12-16 14:44:48Ejection FractionSLEH ECHO HEARTLAB MKCKESSON [facility]CHI [facility] [id number] 12:07:26 Test Item Value Reference Range Interpretation Comments POC-GLUCOSE METER 162 mg/dL 70-110 H : [facility] ([facility]EN[facility] (test code = DOUGLAS Peña [facility], 1538) 45[address]: Wireworker Supervisor/Techni josafat ID = [id number] for Fr ostAury RAD, CHEST, 1 VIEW, NON [id number] 12:02:00Reason for exam:- >hypoxiaShould this be performed at the bedside?->Yes [facility] : 1950 Sex: MFINAL REPORT Chest, one view HISTORY: Hypoxia Comparison: 12/14/2022 Findings: Lungs: Stable bilateral airspace disease. Heart: Stable cardiomegaly. Pleura: No sizable pleural effusion or pneumothorax. Bones: Unremarkable. Lines/tubes: Unchanged in position. Signed: Lloyd Fitzgerald MDReportVerified Date/Time: 12/16/2022 12:02:51 Venous doppler legs [id number] 08:27:08Ejection FractionSLE ECHO HEARTLAB [facility]CKESSON [facility] [id number] 08:21:26 Test Item Value Reference Range Interpretation Comments POC-GLUCOSE METER 144 mg/dL 70-110 H : TESTED A T [facility] 6720 (BEGEORGE) (test code = DOUGLAS Peña [facility], 1538) 66[address]: Wireworker Supervisor/Techni josafat ID = [id number] for Fr Aury davies BASIC METABOLIC [id number] 01:52:04 Test Item Value Reference Range Interpretation Comments SODIUM (BEAKER) 123 meq/L 136-145 L (test code = 381) POTASSIUM 4.0 meq/L 3.5-5.1 (BEAKER) (test code = 379) CHLORIDE (BEAKER) 82 meq/L 98-107 L (test code = 382) CO2 (BEAKER) 28 meq/L 22-29 (test code = 355) BLOOD UREA 73 mg/dL 7-21 H NITROGEN (BEAKER) (test code = 354) CREATININE 3.17 mg/dL 0.57-1.25 H (BEAKER) (test code = 358) GLUCOSE RANDOM 117 mg/dL 70-105 H (BEAKER) (test code = 652) CALCIUM (BEAKER) 8.5 mg/dL 8.4-10.2 (test code = 697) EGFR (BEAKER) 20 Interpretatio n of eGFR (test code = mL/min/1.73 values Stage D escription 1092) sq m Result G1 Hilalry l or high >=90 G2 Mildly decreased 60-89 G3a Mildl y to moderately 45-5 9 G3b Moderately to s everely 30-44 G4 Severl y decreased 15-29 G5 Kidney failure <15Reported eGF R is based on the CKD-EPI 2020 equation that d oes not use a race coefficientEsti mated GFR is not as accur ate as Creatinine Siobhan rob in predicting glom erular filtration rate . Estimated GFR is not appl icable for dialysis patien ts Wireworker Supervisor ID - [id number] 01:48:58 Test Item Value Reference Range Interpretation Comments MAGNESIUM (BEAKER) (test code = 2.2 mg/dL 1.6-2.6 627) Wireworker Supervisor ID - BSHEPATIC FUNCTION [id number] 01:48:58 Test Item Value Reference Range Interpretation Comments TOTAL PROTEIN (BEAKER) (test code = 5.9 gm/dL 6.0-8.3 L 770) ALBUMIN (BEAKER) (test code = 1145) 2.8 g/dL 3.5-5.0 L BILIRUBIN TOTAL (BEAKER) (test code 1.2 mg/dL 0.2-1.2 = 377) BILIRUBIN DIRECT (BEAKER) (test 0.8 mg/dL 0.1-0.5 H code = 706) ALKALINE PHOSPHATASE (BEAKER) (test 46 U/L 40-150 code = 346) AST (SGOT) (BEAKER) (test code = 37 U/L 5-34 H 353) ALT (SGPT) (BEAKER) (test code = 27 U/L 6-55 347) Wireworker Supervisor ID - BSLACTIC ACID, [id number] 01:45:54 Test Item Value Reference Range Interpretation Comments LACTATE BLOOD VENOUS 0.80 mmol/L 0.50-2.20 Specime n slightly (2) (BEAKER) (test hemolyzed code = 6092) Wireworker Supervisor ID - BSCBC W/PLT COUNT & AUTO [id number] 01:27:06 Test Item Value Reference Range Interpretation Comments WHITE BLOOD CELL COUNT (BEAKER) 14.0 K/ L 3.5-10.5 H (test code = 775) RED BLOOD CELL COUNT (BEAKER) 3.21 M/ L 4.63-6.08 L (test code = 761) HEMOGLOBIN (BEAKER) (test code = 8.8 GM/DL 13.7-17.5 L 410) HEMATOCRIT (BEAKER) (test code = 26.0 % 40.1-51.0 L 411) MEAN CORPUSCULAR VOLUME (BEAKER) 81 fL 79-92 (test code = 753) MEAN CORPUSCULAR HEMOGLOBIN 27.4 pg 25.7-32.2 (BEAKER) (test code = 751) MEAN CORPUSCULAR HEMOGLOBIN CONC 33.8 GM/DL 32.3-36.5 (BEAKER) (test code = 752) RED CELL DISTRIBUTION WIDTH 17.9 % 11.6-14.4 H (BEAKER) (test code = 412) PLATELET COUNT (BEAKER) (test 346 K/CU MM 150-450 code = 756) MEAN PLATELET VOLUME (BEAKER) 9.0 fL 9.4-12.4 L (test code = 754) NUCLEATED RED BLOOD CELLS 0 /100 WBC 0-0 (BEAKER) (test code = 413) NEUTROPHILS RELATIVE PERCENT 84 % (BEAKER) (test code = 429) LYMPHOCYTES RELATIVE PERCENT 3 % (BEAKER) (test code = 430) MONOCYTES RELATIVE PERCENT 4 % (BEAKER) (test code = 431) EOSINOPHILS RELATIVE PERCENT 8 % (BEAKER) (test code = 432) BASOPHILS RELATIVE PERCENT 0 % (BEAKER) (test code = 437) NEUTROPHILS ABSOLUTE COUNT 11.80 K/ L 1.78-5.38 H (BEAKER) (test code = 670) LYMPHOCYTES ABSOLUTE COUNT 0.40 K/ L 1.32-3.57 L (BEAKER) (test code = 414) MONOCYTES ABSOLUTE COUNT (BEAKER) 0.56 K/ L 0.30-0.82 (test code = 415) EOSINOPHILS ABSOLUTE COUNT 1.09 K/ L 0.04-0.54 H (BEAKER) (test code = 416) BASOPHILS ABSOLUTE COUNT (BEAKER) 0.05 K/ L 0.01-0.08 (test code = 417) IMMATURE GRANULOCYTES-RELATIVE 0.70 % 0.00-1.00 PERCENT (BEAKER) (test code = 2801) [id number] 01:26:54 Test Item Value Reference Range Interpretation Comments PARTIAL THROMBOPLASTIN TIME 78.2 seconds 22.5-36.0 H (BEAKER) (test code = 760) OXYGEN SATURATION, [id number] 01:18:15 Test Item Value Reference Range Interpretation Comments O2 SATURATION (MEASURED) (BEAKER) 91.5 % (test code = 1455) BASIC METABOLIC [id number] 21:12:31 Test Item Value Reference Range Interpretation Comments SODIUM (BEAKER) 124 meq/L 136-145 L (test code = 381) POTASSIUM 3.1 meq/L 3.5-5.1 L (BEAKER) (test code = 379) CHLORIDE (BEAKER) 81 meq/L 98-107 L (test code = 382) CO2 (BEAKER) 30 meq/L 22-29 H (test code = 355) BLOOD UREA 72 mg/dL 7-21 H NITROGEN (BEAKER) (test code = 354) CREATININE 3.26 mg/dL 0.57-1.25 H (BEAKER) (test code = 358) GLUCOSE RANDOM 139 mg/dL 70-105 H (BEAKER) (test code = 652) CALCIUM (BEAKER) 8.7 mg/dL 8.4-10.2 (test code = 697) EGFR (BEAKER) 20 Interpretatio n of eGFR (test code = mL/min/1.73 values Stage De scription 1092) sq m Result G1 Hillary l or high >=90 G2 Mildly decreased 60-89 G3a Mildl y to moderately 45-5 9 G3b Moderately to s everely 30-44 G4 Severl y decreased 15-29 G5 Kidney failure <15Reported eGF R is based on the CKD-EPI 202 equation that d oes not use a race coefficientEsti mated GFR is not as accur ate as Creatinine Siobhan rob in predicting glom erular filtration rate . Estimated GFR is not appl icable for dialysis patien ts Wireworker Supervisor ID - [id number] 21:06:46 Test Item Value Reference Range Interpretation Comments MAGNESIUM (BEAKER) (test code = 2.2 mg/dL 1.6-2.6 627) Wireworker Supervisor ID - BSPOCT-GLUCOSE [id number] 20:36:59 Test Item Value Reference Range Interpretation Comments POC-GLUCOSE METER 152 mg/dL 70-110 H : TESTED A T [facility] 6720 (BEAKER) (test code = [facility], 1538) 8[address]: Wireworker Supervisor/Techni josafat ID = [id number] for ROSA M BETANCOURT [id number] 18:45:54 Test Item Value Reference Range Interpretation Comments PARTIAL THROMBOPLASTIN TIME 68.5 seconds 22.5-36.0 H (BEAKER) (test code = 760) POCT-GLUCOSE [id number] 16:50:19 Test Item Value Reference Range Interpretation Comments POC-GLUCOSE METER 284 mg/dL 70-110 H : TESTED A T [facility] 6720 (BEAKER) (test code = [facility], 1538) 27004: Wireworker Supervisor/Techni josafat ID = [id number] for Nydia de los santosmalihaBry millerli BASIC METABOLIC [id number] 12:44:00 Test Item Value Reference Range Interpretation Comments SODIUM (BEAKER) 120 meq/L 136-145 LL (test code = 381) POTASSIUM 3.4 meq/L 3.5-5.1 L (BEAKER) (test code = 379) CHLORIDE (BEAKER) 76 meq/L 98-107 L (test code = 382) CO2 (BEAKER) 28 meq/L 22-29 (test code = 355) BLOOD UREA 69 mg/dL 7-21 H NITROGEN (BEAKER) (test code = 354) CREATININE 3.55 mg/dL 0.57-1.25 H (BEAKER) (test code = 358) GLUCOSE RANDOM 272 mg/dL 70-105 H (BEAKER) (test code = 652) CALCIUM (BEAKER) 9.6 mg/dL 8.4-10.2 (test code = 697) EGFR (BEAKER) 18 Interpretatio n of eGFR (test code = mL/min/1.73 values Stage De scription 1092) sq m Result G1 Hillary l or high >=90 G2 Mildly decreased 60-89 G3a Mildl y to moderately 45-5 9 G3b Moderately to s everely 30-44 G4 Severl y decreased 15-29 G5 Kidney failure <15Reported eGF R is based on the CKD-EPI 2020 equation that d oes not use a race coefficientEsti mated GFR is not as accur ate as Creatinine Siobhan rob in predicting glom erular filtration rate . Estimated GFR is not appl icable for dialysis patien ts Wireworker Supervisor ID - [id number] 12:28:02 Test Item Value Reference Range Interpretation Comments MAGNESIUM (BEAKER) (test code = 2.3 mg/dL 1.6-2.6 627) Wireworker Supervisor ID - MMPOCT-GLUCOSE [id number] 11:45:22 Test Item Value Reference Range Interpretation Comments POC-GLUCOSE METER 297 mg/dL 70-110 H : TESTED A T [facility] 6720 ([facility]) (test code = DOUGLAS Peña [facility], 1538) 35042: Wireworker Supervisor/Techni josafat ID = [id number] for Bry Meloli Urinalysis w/Microscopic + Reflex to [id number] 11:42:34 Test Item Value Reference Range Interpretation Comments Color, UA (test code Light Yellow = 5778-6) Clarity, UA (test Clear code = 5767-9) Specific [place], UA 1.009 1.001-1.035 (test code = 5811-5) pH, UA (test code = 7.0 5.0-8.0 5803-2) Protein, UA (test Negative Negative code = 02499-9) Glucose, UA (test Negative Negative code = 365) Ketones, UA (test Negative Negative code = 2514-8) Bilirubin, UA (test Negative Negative code = 88970-3) Blood, UA (test code Small Negative A = 55479-3) Nitrite, UA (test Negative Negative code = 5802-4) Leukocytes, UA (test Trace Negative A code = 5799-2) Urobilinogen, UA 0.2 0.2-1.0 (test code = 52789-2) RBC, UA (test code = 16 See_Comment [Autom ated 40501-8) message] The system which generated this result transmit domenico reference range : /HPF. The reference range was not used to interpret this result as normal/abnormal . WBC, UA (test code = 2 See_Comment [Autom ated 5821-4) message] The system which generated this result transmit domenico reference range : /HPF. The reference range was not used to interpret this result as normal/abnormal . Mucus (test code = Rare 8247-9) Hyaline Casts, UA 4 See_Comment [Automate d (test code = 75511-7) messag e] The system which generated this result transmit domenico reference range : /LPF. The reference range was not used to interpret this result as normal/abnormal . Specimen Source (test code = 2795) CLARI (test code = CLARI) Wireworker Supervisor ID - [auto]Wireworker Supervisor ID - tech Lab Interpretation Abnormal (test code = 81707-8) [facility] [id number] 11:42:34 Test Item Value Reference Range Interpretation Comments COLOR (BEAKER) (test code = 470) Light Yellow CLARITY (BEAKER) (test code = Clear 469) SPECIFIC GRAVITY UA (BEAKER) 1.009 1.001-1.035 (test code = 468) PH UA (BEAKER) (test code = 467) 7.0 5.0-8.0 PROTEIN UA (BEAKER) (test code = Negative Negative 464) GLUCOSE UA (BEAKER) (test code = Negative Negative 365) KETONES UA (BEAKER) (test code = Negative Negative 371) BILIRUBIN UA (BEAKER) (test code Negative Negative = 462) BLOOD UA (BEAKER) (test code = Small Negative A 461) NITRITE UA (BEAKER) (test code = Negative Negative 465) LEUKOCYTE ESTERASE UA (BEAKER) Trace Negative A (test code = 466) UROBILINOGEN UA (BEAKER) (test 0.2 0.2-1.0 code = 463) RBC UA (BEAKER) (test code = 16 /HPF 519) WBC UA (BEAKER) (test code = 2 /HPF 520) MUCUS (BEAKER) (test code = Rare 1574) HYALINE CASTS (BEAKER) (test 4 /LPF code = 514) SOURCE(BEAKER) (test code = 2795) Wireworker Supervisor ID - [auto]Wireworker Supervisor ID - techCBC (HEMOGRAM ONLY)2022-12-15 11:41:49 Test Item Value Reference Range Interpretation Comments WHITE BLOOD CELL COUNT (BEAKER) 15.2 K/ L 3.5-10.5 H (test code = 775) RED BLOOD CELL COUNT (BEAKER) 3.69 M/ L 4.63-6.08 L (test code = 761) HEMOGLOBIN (BEAKER) (test code = 10.1 GM/DL 13.7-17.5 L 410) HEMATOCRIT (BEAKER) (test code = 30.0 % 40.1-51.0 L 411) MEAN CORPUSCULAR VOLUME (BEAKER) 81 fL 79-92 (test code = 753) MEAN CORPUSCULAR HEMOGLOBIN 27.4 pg 25.7-32.2 (BEAKER) (test code = 751) MEAN CORPUSCULAR HEMOGLOBIN CONC 33.7 GM/DL 32.3-36.5 (BEAKER) (test code = 752) RED CELL DISTRIBUTION WIDTH 18.4 % 11.6-14.4 H (BEAKER) (test code = 412) PLATELET COUNT (BEAKER) (test 396 K/CU MM 150-450 code = 756) MEAN PLATELET VOLUME (BEAKER) 9.3 fL 9.4-12.4 L (test code = 754) NUCLEATED RED BLOOD CELLS 0 /100 WBC 0-0 (BEAKER) (test code = 413) [id number] 10:32:39 Test Item Value Reference Range Interpretation Comments PARTIAL THROMBOPLASTIN TIME 55.6 seconds 22.5-36.0 H (BEAKER) (test code = 760) POCT-GLUCOSE [id number] 08:12:05 Test Item Value Reference Range Interpretation Comments POC-GLUCOSE METER 295 mg/dL 70-110 H : TESTED A T BSC 6720 (BEAKER) (test code = [place], 1538) [address]: Wireworker Supervisor/Techni josafat ID = [id number] for Donna Melo LACTIC ACID, [id number] 06:45:53 Test Item Value Reference Range Interpretation Comments LACTATE BLOOD VENOUS (2) (BEAKER) 1.22 mmol/L 0.50-2.20 (test code = 2872) Wireworker Supervisor ID - SEOYKGIMWVOQGFF2041-10-28 06:32:22 Test Item Value Reference Range Interpretation Comments PROCALCITONIN (BEAKER) (test code 1.01 ng/mL <0.05 H = 3036) SEPSIS RISK (ng/mL)Low: 0.05-0.50Intermediate: 0.51-2.00High: >=2.01BASIC METABOLIC [id number] 06:25:43 Test Item Value Reference Range Interpretation Comments SODIUM (BEAKER) 122 meq/L 136-145 L (test code = 381) POTASSIUM 4.0 meq/L 3.5-5.1 (BEAKER) (test code = 379) CHLORIDE (BEAKER) 80 meq/L 98-107 L (test code = 382) CO2 (BEAKER) 28 meq/L 22-29 (test code = 355) BLOOD UREA 69 mg/dL 7-21 H NITROGEN (BEAKER) (test code = 354) CREATININE 3.32 mg/dL 0.57-1.25 H (BEAKER) (test code = 358) GLUCOSE RANDOM 237 mg/dL 70-105 H (BEAKER) (test code = 652) CALCIUM (BEAKER) 8.6 mg/dL 8.4-10.2 (test code = 697) EGFR (BEAKER) 19 Interpretatio n of eGFR (test code = mL/min/1.73 values Stage De scription 1092) sq m Result G1 Hillary l or high >=90 G2 Mildly decreased 60-89 G3a Mildl y to moderately 45-5 9 G3b Moderately to s everely 30-44 G4 Severl y decreased 15-29 G5 Kidney failure <15Reported eGF R is based on the CKD-EPI 2020 equation that d oes not use a race coefficientEsti mated GFR is not as accur ate as Creatinine Siobhan rob in predicting glom erular filtration rate . Estimated GFR is not appl icable for dialysis patien ts Wireworker Supervisor ID - BSHEPATIC FUNCTION [id number] 06:15:55 Test Item Value Reference Range Interpretation Comments TOTAL PROTEIN (BEAKER) (test code = 5.7 gm/dL 6.0-8.3 L 770) ALBUMIN (BEAKER) (test code = 1145) 2.8 g/dL 3.5-5.0 L BILIRUBIN TOTAL (BEAKER) (test code 1.4 mg/dL 0.2-1.2 H = 377) BILIRUBIN DIRECT (BEAKER) (test 0.8 mg/dL 0.1-0.5 H code = 706) ALKALINE PHOSPHATASE (BEAKER) (test 47 U/L 40-150 code = 346) AST (SGOT) (BEAKER) (test code = 39 U/L 5-34 H 353) ALT (SGPT) (BEAKER) (test code = 31 U/L 6-55 347) Wireworker Supervisor ID - BSCREATINE KINASE (CK)2022-12-15 06:15:55 Test Item Value Reference Range Interpretation Comments CREATINE KINASE TOTAL (BEAKER) (test 61 U/L 29-200 code = 380) Wireworker Supervisor ID - BSCBC W/PLT COUNT & AUTO [id number] 05:32:12 Test Item Value Reference Range Interpretation Comments WHITE BLOOD CELL COUNT (BEAKER) 14.7 K/ L 3.5-10.5 H (test code = 775) RED BLOOD CELL COUNT (BEAKER) 3.18 M/ L 4.63-6.08 L (test code = 761) HEMOGLOBIN (BEAKER) (test code = 8.8 GM/DL 13.7-17.5 L 410) HEMATOCRIT (BEAKER) (test code = 26.5 % 40.1-51.0 L 411) MEAN CORPUSCULAR VOLUME (BEAKER) 83 fL 79-92 (test code = 753) MEAN CORPUSCULAR HEMOGLOBIN 27.7 pg 25.7-32.2 (BEAKER) (test code = 751) MEAN CORPUSCULAR HEMOGLOBIN CONC 33.2 GM/DL 32.3-36.5 (BEAKER) (test code = 752) RED CELL DISTRIBUTION WIDTH 18.5 % 11.6-14.4 H (BEAKER) (test code = 412) PLATELET COUNT (BEAKER) (test 346 K/CU MM 150-450 code = 756) MEAN PLATELET VOLUME (BEAKER) 9.6 fL 9.4-12.4 (test code = 754) NUCLEATED RED BLOOD CELLS 0 /100 WBC 0-0 (BEAKER) (test code = 413) NEUTROPHILS RELATIVE PERCENT 87 % (BEAKER) (test code = 429) LYMPHOCYTES RELATIVE PERCENT 3 % (BEAKER) (test code = 430) MONOCYTES RELATIVE PERCENT 4 % (BEAKER) (test code = 431) EOSINOPHILS RELATIVE PERCENT 4 % (BEAKER) (test code = 432) BASOPHILS RELATIVE PERCENT 0 % (BEAKER) (test code = 437) NEUTROPHILS ABSOLUTE COUNT 12.80 K/ L 1.78-5.38 H (BEAKER) (test code = 670) LYMPHOCYTES ABSOLUTE COUNT 0.45 K/ L 1.32-3.57 L (BEAKER) (test code = 414) MONOCYTES ABSOLUTE COUNT (BEAKER) 0.61 K/ L 0.30-0.82 (test code = 415) EOSINOPHILS ABSOLUTE COUNT 0.63 K/ L 0.04-0.54 H (BEAKER) (test code = 416) BASOPHILS ABSOLUTE COUNT (BEAKER) 0.06 K/ L 0.01-0.08 (test code = 417) IMMATURE GRANULOCYTES-RELATIVE 0.70 % 0.00-1.00 PERCENT (BEAKER) (test code = 2801) OXYGEN SATURATION, [id number] 05:18:09 Test Item Value Reference Range Interpretation Comments O2 SATURATION (MEASURED) (BEAKER) 79.6 % (test code = 1455) [id number] 03:05:59 Test Item Value Reference Range Interpretation Comments PARTIAL THROMBOPLASTIN TIME 73.5 seconds 22.5-36.0 H (BEAKER) (test code = 760) DIGOXIN [id number] 02:19:11 Test Item Value Reference Range Interpretation Comments DIGOXIN LEVEL (BEAKER) (test code 1.62 ng/mL 0.80-2.00 = 669) Wireworker Supervisor ID - MMCOMPREHENSIVE METABOLIC [id number] 21:16:41 Test Item Value Reference Range Interpretation Comments TOTAL PROTEIN 7.0 gm/dL 6.0-8.3 (BEAKER) (test code = 770) ALBUMIN (BEAKER) 3.4 g/dL 3.5-5.0 L (test code = 1145) ALKALINE 60 U/L 40-150 PHOSPHATASE (BEAKER) (test code = 346) BILIRUBIN TOTAL 1.7 mg/dL 0.2-1.2 H (BEAKER) (test code = 377) SODIUM (BEAKER) 122 meq/L 136-145 L (test code = 381) POTASSIUM (BEAKER) 4.4 meq/L 3.5-5.1 (test code = 379) CHLORIDE (BEAKER) 78 meq/L 98-107 L (test code = 382) CO2 (BEAKER) (test 28 meq/L 22-29 code = 355) BLOOD UREA 63 mg/dL 7-21 H NITROGEN (BEAKER) (test code = 354) CREATININE 3.38 mg/dL 0.57-1.25 H (BEAKER) (test code = 358) GLUCOSE RANDOM 201 mg/dL 70-105 H (BEAKER) (test code = 652) CALCIUM (BEAKER) 9.6 mg/dL 8.4-10.2 (test code = 697) AST (SGOT) 58 U/L 5-34 H (BEAKER) (test code = 353) ALT (SGPT) 39 U/L 6-55 (BEAKER) (test code = 347) EGFR (BEAKER) 19 Interpretatio n of eGFR (test code = 1092) mL/min/1.[address] age Description sq m Result G1 Hillary l or high >=90 G2 Mildly decreased 60-89 G3a Mildl y to moderately 45-5 9 G3b Moderately to s everely 30-44 G4 Severl y decreased 15-29 G5 Kidney failure <15Reported eGF R is based on the CKD-EPI 2021 equation that d oes not use a race coefficientEsti mated GFR is not as accur ate as Creatinine Siobhan rivas in predicting glom erular filtration rate . Estimated GFR is not appl icable for dialysis patien ts Wireworker Supervisor ID - [id number] 21:03:39 Test Item Value Reference Range Interpretation Comments MAGNESIUM (BEAKER) (test code = 2.2 mg/dL 1.6-2.6 627) Wireworker Supervisor ID - [id number] 21:03:39 Test Item Value Reference Range Interpretation Comments PHOSPHORUS (BEAKER) (test code = 4.1 mg/dL 2.3-4.7 604) Wireworker Supervisor ID - BSLACTIC ACID, [id number] 21:00:38 Test Item Value Reference Range Interpretation Comments LACTATE BLOOD VENOUS 2.16 mmol/L 0.50-2.20 Specime n slightly (2) (BEAKER) (test hemolyzed code = 2872) Wireworker Supervisor ID - [id number] 20:52:17 Test Item Value Reference Range Interpretation Comments PARTIAL THROMBOPLASTIN TIME 45.6 seconds 22.5-36.0 H (BEAKER) (test code = 760) PROTHROMBIN [id number] 20:51:17 Test Item Value Reference Range Interpretation Comments PROTIME (BEAKER) (test code = 28.1 seconds 11.9-14.2 H 759) INR (BEAKER) (test code = 370) 2.84 <=5.90 RECOMMENDED COUMADIN/WARFARIN INR THERAPY RANGESSTANDARD DOSE: 2.0 - 3.0 Includes: PROPHYLAXIS for venous thrombosis, systemic embolization; TREATMENT for venous thrombosis and/or pulmonary embolus.HIGH RISK: Target INR is 2.5-3.5 for patients with mechanical heart valves.OXYGEN SATURATION, [id number] 20:47:41 Test Item Value Reference Range Interpretation Comments O2 SATURATION (MEASURED) (BEAKER) 64.7 % (test code = 1455) CBC W/PLT COUNT & AUTO [id number] 20:45:29 Test Item Value Reference Range Interpretation Comments WHITE BLOOD CELL COUNT (BEAKER) 15.7 K/ L 3.5-10.5 H (test code = 775) RED BLOOD CELL COUNT (BEAKER) 3.76 M/ L 4.63-6.08 L (test code = 761) HEMOGLOBIN (BEAKER) (test code = 10.4 GM/DL 13.7-17.5 L 410) HEMATOCRIT (BEAKER) (test code = 31.6 % 40.1-51.0 L 411) MEAN CORPUSCULAR VOLUME (BEAKER) 84 fL 79-92 (test code = 753) MEAN CORPUSCULAR HEMOGLOBIN 27.7 pg 25.7-32.2 (BEAKER) (test code = 751) MEAN CORPUSCULAR HEMOGLOBIN CONC 32.9 GM/DL 32.3-36.5 (BEAKER) (test code = 752) RED CELL DISTRIBUTION WIDTH 19.0 % 11.6-14.4 H (BEAKER) (test code = 412) PLATELET COUNT (BEAKER) (test 388 K/CU MM 150-450 code = 756) MEAN PLATELET VOLUME (BEAKER) 10.2 fL 9.4-12.4 (test code = 754) NUCLEATED RED BLOOD CELLS 0 /100 WBC 0-0 (BEAKER) (test code = 413) NEUTROPHILS RELATIVE PERCENT 91 % (BEAKER) (test code = 429) LYMPHOCYTES RELATIVE PERCENT 3 % (BEAKER) (test code = 430) MONOCYTES RELATIVE PERCENT 4 % (BEAKER) (test code = 431) EOSINOPHILS RELATIVE PERCENT 1 % (BEAKER) (test code = 432) BASOPHILS RELATIVE PERCENT 0 % (BEAKER) (test code = 437) NEUTROPHILS ABSOLUTE COUNT 14.32 K/ L 1.78-5.38 H (BEAKER) (test code = 670) LYMPHOCYTES ABSOLUTE COUNT 0.42 K/ L 1.32-3.57 L (BEAKER) (test code = 414) MONOCYTES ABSOLUTE COUNT (BEAKER) 0.67 K/ L 0.30-0.82 (test code = 415) EOSINOPHILS ABSOLUTE COUNT 0.17 K/ L 0.04-0.54 (BEAKER) (test code = 416) BASOPHILS ABSOLUTE COUNT (BEAKER) 0.04 K/ L 0.01-0.08 (test code = 417) IMMATURE GRANULOCYTES-RELATIVE 0.80 % 0.00-1.00 PERCENT (BEAKER) (test code = 2801) RAD, CHEST, 1 VIEW, NON [id number] 20:31:00Post-intubationReason for exam:- >SOB, CHFShould this be performed at the bedside?->Yes [facility]Z: 1950 Sex: MFINAL REPORT Chest dated 12/14/2022 COMPARISON: July 12, 2017 Clinical Information: SOB, CHF Comment: Heart is enlarged. Pulmonary vasculature is indistinct. Airspace disease is seen bilaterally suggestive pulmonary edema. No pleural effusion or pneumothorax is seen. Impression: Congestive failure. Signed: Yuliya Garrett MDReport Verified Date/Time: 12/14/2022 20:31:48 [facility] metabolic [id number] 02:57:00 Test Item Value Reference Range Interpretation Comments Glucose (test code = 183 mg/dL 65-99 H Fastin g 2345-7) reference interval For someone without known diabetes, a glucosevalue >1 25 mg/dL indicates that they may havediabetes an d this should be confirmed with afollow-up test . BUN (test code = 38 mg/dL 7-25 H 3094-0) Creatinine (test 2.35 mg/dL 0.70-1.28 H code = 2160-0) eGFR (test code = 29 See_Comment L The eGFR i s based 67672-5) on the CKD-EPI 2020 equation. To calculate the n ew eGFR from a previous Creatinine or Cystatin Cresul t, go to [email or web address] ne y.org/professio na ls/kdoqi/[email or web address] ca lculator [Automated message] The system which generated this result transmitted reference range : > OR = 60 mL/min/1.73m2. The reference range was not used to interpr et this result as normal/abnormal . BUN/creatinine ratio 16 See_Comment [Autom ated (test code = 3097-3) message ] The system which generated this result transmitted reference range : 6 - 22 (calc). The reference range was not used to interpr et this result as normal/abnormal . Sodium (test code = 126 mmol/L 135-146 L 2951-2) Potassium (test code 3.6 mmol/L 3.5-5.3 = 2823-3) Chloride (test code 98-110 L Verified by = ) repeat analysis . CO2 (test code = 37 mmol/L 20-32 H 2028-05) Calcium (test code = 9.0 mg/dL 8.6-10.3 07144-8) CLARI (test code = FASTING:YES CLARI) FASTING: YES RAC (test code = Performing RAC) Organization Information: Site ID: [facility] Name: [facility] Address: [address] [place] [id number] Director: Jake Sow Lab Interpretation Abnormal (test code = 82767-0) [facility] [id number] 00:55:00 Test Item Value Reference Range Interpretation Comments POC glucose (test code 288 mg/dL 65-99 H Opera tor Name: = [id number]) Dat Garner ID : [id number] able: ON LICENSE OF [facility] Notified senior librarian Interpretation Abnormal (test code = 78054-2) [facility] [id number] 17:18:56 Test Item Value Reference Range Interpretation Comments Six Minute Walk Distance (ft) (test 856 Feet code = 7665) Six Minute Walk Distance (m) (test 261 m 277.01-583.01 code = 7614) Six Minute Walk Distance Predicted 430 (test code = 5645) Six Minute Walk Distance % 60.7 % Predicted (test code = 5646) SP02 at Rest (test code = 7617) 100 % SP02 at after 1 minute (test code = 99 % 7630) SP02 at after 2 minutes (test code 99 % = 7636) SP02 at after 3 minutes (test code 99 % = 7642) SP02 at after 4 minutes (test code 99 % = 7648) SP02 at after 5 minutes (test code 99 % = 7654) SP02 at after 6 minutes (test code 99 % = 7660) Heart Rate at Rest (test code = 86 1/min 7615) Heart Rate after 1 minute (test 97 1/min code = 7629) Heart Rate after 2 minutes (test 107 1/min code = 7635) Heart Rate after 3 minutes (test 106 1/min code = 7641) Heart Rate after 4 minutes (test 107 1/min code = 7647) Heart Rate after 5 minutes (test 104 1/min code = 7653) Heart Rate after 6 minutes (test 109 1/min code = 7659) Supplemental O2 During Rest (test 0 L/min code = 7624) Supplemental O2 after 1 minute 0 L/min (test code = 7634) Supplemental O2 after 2 minutes 0 L/min (test code = 7640) Supplemental O2 after 3 minutes 0 L/min (test code = 7646) Supplemental O2 after 4 minutes 0 L/min (test code = 7652) Supplemental O2 after 5 minutes 0 L/min (test code = 7658) Supplemental O2 after 6 minutes 0 L/min (test code = 7664) BP Systolic at Rest (test code = 118 mmHg 7622) BP Systolic after 6 minutes (test 126 mmHg code = 7662) BP Diastolic at Rest (test code = 59 mmHg 7623) BP Diastolic after 6 minutes (test 64 mmHg code = 7663) Luis Carlos Dyspnea Scale at Rest (test 0 code = 7619) Luis Carlos Dyspnea Scale after 6 minutes 0.5 (test code = 7661) Lowest SpO2 (test code = 7618) 99 % Highest Heart Rate (test code = 109 BPM 7616) Lap Count (test code = 7625) 6 Premature Stop (test code = 7621) 0 Gait Speed (test code = 7627) 4.1 sec [facility] diffusion, lung [id number] 17:07:18 Test Item Value Reference Range Interpretation Comments VC Pre (test code = 2.82 L 2.88-4.38 5374) VC Predicted (test 3.62 code = 5372) VC LLN (test code = 2.88 5373) VC % Pre of 78.1 % Predicted (test code = 5375) TLC Pre (test code = 5.14 L 4.57-7.04 5416) TLC Predicted (test 5.79 code = 5414) TLC LLN (test code = 4.57 5415) TLC % Pre of 88.7 % Predicted (test code = 5417) RV Pre (test code = 2.31 L 1.25-3.20 5402) RV Predicted (test 2.13 code = 5400) RV LLN (test code = 1.25 5401) RV % Pre of 108.7 % Predicted (test code = 5403) RV % TLC Pre (test 45.03 % 24.88-48.74 code = 5409) RV % TLC Predicted 37 (test code = 5407) RV % TLC LLN (test 25 code = 5408) RV % TLC % Pre of 123.2 % Predicted (test code = 5410) R0.5IN Pre (test 1.26 See_Comment [Automated message] code = 5514) The system [employer] generated this result transmitted ref erence range: 3.06 - 3 .06 cmH2O*s/L. The reference range was not used to int erpret this result as normal/abnormal . R0.5IN Predicted 3.06 (test code = 5512) R0.5IN LLN (test 3.06 code = 5513) R0.5IN % Pre of 41.2 % Predicted (test code = 5515) FRCpl Pre (test code 2.96 L 2.12-4.20 = 5388) FRCpl % Predicted 3.05 (test code = 5386) FRCpl % LLN (test 2.12 code = 5387) FRCpl % Pre of 97.2 % Predicted (test code = 5389) ERV Pre (test code = 0.65 L 0.28-1.84 5381) ERV Predicted (test 0.91 code = 5379) ERV LLN (test code = 0.28 5380) ERV % Pre of 71.3 % Predicted (test code = 5382) IC Pre (test code = 2.18 L 1.82-3.39 5395) IC Predicted (test 2.62 code = 5393) IC LLN (test code = 1.82 5394) IC % Pre of 83 % Predicted (test code = 5396) sR0.5IN Pre (test 4.61 See_Comment [Automate d message] code = 5521) The system [employer] generated this result transmitted ref erence range: 12.00 - 12.00 cmH2O*s. The re ference range was not u sed to interpret this result as normal/abnor mal. sR0.5IN LLN (test 12 code = 5520) sR0.5IN Predicted 12 (test code = 5519) sR0.5IN % Pre of 38.4 % Predicted (test code = 5522) Raw Pre (test code = 1.66 See_Comment [Autom ated message] 5507) The system [employer] generated this result transmitted ref erence range: 3.06 - 3 .06 cmH2O*s/L. The reference range was not used to int erpret this result as normal/abnormal . Raw Predicted (test 3.06 code = 5505) Raw LLN (test code = 3.06 5506) Raw % Pre of 54.3 % Predicted (test code = 5508) sGaw Predicted (test 0.16 See_Comment [Autom ated message] code = 5528) The system [employer] generated this result transmitted ref erence range: 0.08 - 0 .08 1/(cmH2O*s). Th e reference range was not used to int erpret this result as normal/abnormal . sGaw Predicted (test 0.08 code = 5526) sGaw LLN (test code 0.08 = 5527) sGaw % Pre of 197.3 % Predicted (test code = 5529) FEV1 Pre (test code 1.84 L 1.83-3.24 = 5348) FEV1 Predicted (test 2.56 code = 5302) FEV1 LLN (test code 1.83 = 5347) FEV1 % Pre of 71.9 % Predicted (test code = 5308) FVC Pre (test code = 2.82 L 2.46-4.24 5354) FVC Predicted (test 3.34 code = 5307) FVC LLN (test code = 2.46 5353) FVC % Pre of 84.4 % Predicted (test code = 5355) FEV1/FVC % Pre (test 65.13 % 62.75-89.11 code = 5361) FEV1/FVC % Predicted 77 (test code = 5359) FEV1/FVC % LLN (test 63 code = 5360) FEV1/FVC % Pre of 84.9 % Predicted (test code = 5362) FEF 25-75% Pre (test 0.81 L/s 0.84-3.65 code = 5547) FEF 25-75% Predicted 2 (test code = 5546) FEF 25-75% LLN (test 0.84 code = 5545) FEF 25-75% % Pre of 40.4 % Predicted (test code = 5548) PEF Pre (test code = 4.76 L/s 4.92-8.80 5367) PEF Predicted (test 6.86 code = 5310) PEF LLN (test code = 4.92 5366) PEF % Pre of 69.3 % Predicted (test code = 5368) MVV Pre (test code = 61.98 L/min 97.15-97.15 5590) MVV Predicted (test 97 code = 5544) MVV LLN (test code = 97 5543) MVV % Pre of 63.8 % Predicted (test code = 5587) DLCO Pre (test code 11.55 See_Comment [Automa domenico message] = 5423) The system [employer] generated this result transmitted ref erence range: 15.57 - 28.05 ml/(min*mmHg). The reference range was not used to int erpret this result as normal/abnormal . DLCO Predicted (test 21.26 code = 5421) DLCO LLN (test code 15.57 = 5422) DLCO % Pre of 54.3 % Predicted (test code = 5424) DLCOc Pre (test code 13.53 See_Comment [Autom ated message] = 5430) The system [employer] generated this result transmitted ref erence range: 15.57 - 28.05 ml/(min*mmHg). The reference range was not used to int erpret this result as normal/abnormal . DLCOc Predicted 21.26 (test code = 5428) DLCOc LLN (test code 15.57 = 5429) DLCOc % Pre of 63.7 % Predicted (test code = 5431) DL/VA Pre (test code 2.59 See_Comment [Autom ated message] = 5437) The system [employer] generated this result transmitted ref erence range: 3.07 - 5 .34 ml/(min*mmHg*L) . The reference range was not used to int erpret this result as normal/abnormal . DL/VA Predicted 4.15 (test code = 5435) DL/VA LLN (test code 3.07 = 5436) DL/VA % Pre of 62.4 % Predicted (test code = 5438) KCOc SB Pre (test 3.04 See_Comment [Automate d message] code = 5535) The system [employer] generated this result transmitted ref erence range: 3.07 - 5 .34 ml/(min*mmHg*L) . The reference range was not used to int erpret this result as normal/abnormal . KCOc SB Predicted 4.15 (test code = 5533) KCOc SB LLN (test 3.07 code = 5534) KCOc SB % Pre of 73.1 % Predicted (test code = 5536) VA SB Pre (test code 4.46 L 4.14-6.23 = 5444) VA SB Predicted 5.15 (test code = 5442) VA SB LLN (test code 4.14 = 5443) VA SB % Pre of 86.6 % Predicted (test code = 5445) Hb Pre (test code = 10.3 g(Hb)/dL 5540) MIP Sustained (test 42.4 See_Comment [Automa domenico message] code = 8396) The system [employer] generated this result transmitted ref erence range: 104.91 - 104.91 cmH2O. The refe rence range was not u sed to interpret this result as normal/abnor mal. MIP [place] Predicted 104.91 Value (test code = 8397) MIP [place] LLN (test 104.91 code = 8398) MIP [place] % of 40.4 % Predicted (test code = 8399) MIP PK (test code = 51.87 See_Comment [Automa domenico message] 8400) The system [employer] generated this result transmitted ref erence range: 104.91 - 104.91 cmH2O. The refe rence range was not u sed to interpret this result as normal/abnor mal. MIP PK Predicted 104.91 Value (test code = 8401) MIP PK LLN (test 104.91 code = 8402) MIP PK % of 49.4 % Predicted (test code = 8403) MEP Sustained (test 84.84 See_Comment [Automa domenico message] code = 8408) The system [employer] generated this result transmitted ref erence range: 84.10 - 177.90 cmH2O. The refe rence range was not u sed to interpret this result as normal/abnor mal. MEP [place] Predicted 131 Value (test code = 8409) MEP [place] LLN (test 84.1 code = 8410) MEP [place] % of 64.8 % Predicted (test code = 8411) MEP PK (test code = 89.09 See_Comment [Automa domenico message] 8412) The system [employer] generated this result transmitted ref erence range: 84.10 - 177.90 cmH2O. The refe rence range was not u sed to interpret this result as normal/abnor mal. MEP PK Predicted 131 Value (test code = 8413) MEP PK LLN (test 84.1 code = 8414) MEP PK % of 68 % Predicted (test code = 8415) [facility] Pre/Post Nx-[id number] 04:09:06 Test Item Value Reference Range Interpretation Comments Ventricular rate (test 71 code = 253) Atrial rate (test code = 78 255) QRSD interval (test code 176 = 260) QT interval (test code = 484 264) QTC interval (test code 525 = 265) QRS axis 1 (test code = 261 268) T wave axis (test code = 74 270) EKG impression (test Ventricular-paced code = 273) rhythm-Abnormal ECG- [facility] 12 [id number] 02:42:59 Test Item Value Reference Range Interpretation Comments Ventricular rate (test 63 code = 253) Atrial rate (test code 63 = 255) QRSD interval (test 116 code = 260) QT interval (test code 406 = 264) QTC interval (test 415 code = 265) QRS axis 1 (test code 97 = 268) T wave axis (test code -80 = 270) EKG impression (test Atrial fibrillation code = 273) with frequent ventricular-paced complexes-ST & T wave abnormality, consider inferior ischemia-ST & T wave abnormality, consider anterolateral ischemia-Abnormal ECG- [facility]2023-03-02 17:02:00 Test Item Value Reference Range Interpretation Comments Urine culture SEE COMMENT Bacteriuria sc reen (test code = negative. [id number]) CLARI (test code = Previous comment CLARI) was ?Release to patient (Note: If manual release option is?selected, result will auto release 10 days from?finalization.) ->Immediate?This order is a send-out test and will have a long turnaround?time, perhaps days. For information about this specific?test, please call [phone] Sunday-Sunday, 8 am-6 pm.?Specimen must be received in the laboratory within 2 hours of?collection.?Spec imen Source->Urine, verified by LMID at 07:29 on 11/16/2022. [employer] [id number] (COVID-19) RNA [Presence] in Respiratory specimen by SUMANTH with probe [id number] 22:22:06 Test Item Value Reference Range Interpretation Comments SARS-CoV-2 (COVID-19) RNA Not detected [Presence] in Respiratory specimen by SUMANTH with probe detection (test code = 18398-6) Whether patient is employed in a Unknown healthcare setting (test code = 02223-9) Whether the patient has symptoms Unknown related to condition of interest (test code = 38442-4) Whether the patient was Unknown hospitalized for condition of interest (test code = 96679-4) Whether the patient was admitted Unknown to intensive care unit (ICU) for condition of interest (test code = 24797-0) Whether patient resides in a Unknown congregate care setting (test code = 01039-1) status (test code = Unknown 80655-1) Date and time of symptom onset Unknown (test code = 30141-2) [facility] WE[facility] GLUCOSE (AUTOMATED)2022-10-13 17:24:41 Test Item Value Reference Range Interpretation Comments POCT GLU (test code = 4164655336) 248 mg/dL 70-110 H Lab Interpretation (test code = Abnormal 07211-2) [facility] GLUCOSE (AUTOMATED)2022-10-13 14:13:43 Test Item Value Reference Range Interpretation Comments POCT GLU (test code = 4618606409) 133 mg/dL 70-110 H Lab Interpretation (test code = Abnormal 90987-4) [facility] GLUCOSE (AUTOMATED)2022-10-13 04:22:39 Test Item Value Reference Range Interpretation Comments POCT GLU (test code = 8671696273) 211 mg/dL 70-110 H Lab Interpretation (test code = Abnormal 67767-0) [facility] GLUCOSE (AUTOMATED)2022-10-12 22:41:00 Test Item Value Reference Range Interpretation Comments POCT GLU (test code = 2596678679) 273 mg/dL 70-110 H Lab Interpretation (test code = Abnormal 76483-4) [facility] GLUCOSE (AUTOMATED)2022-10-12 17:47:40 Test Item Value Reference Range Interpretation Comments POCT GLU (test code = 4868975382) 207 mg/dL 70-110 H Lab Interpretation (test code = Abnormal 31167-7) [facility] 14:[facility]46 Test Item Value Reference Range Interpretation Comments DIGOXIN (test code = 0.9 ng/mL 0.8-1.6 6653642589) CLARI (test code = CLARI) Arrythmias: ?1.5 - 2.0 ng/mLToxic Range: ? Greater than or equal to 2.4 ng/mL Lab Interpretation (test Normal code = 46147-9) [facility] GLUCOSE (AUTOMATED)2022-10-12 13:48:04 Test Item Value Reference Range Interpretation Comments POCT GLU (test code = 0146144020) 143 mg/dL 70-110 H Lab Interpretation (test code = Abnormal 83688-5) [facility] GLUCOSE (AUTOMATED)2022-10-12 08:29:28 Test Item Value Reference Range Interpretation Comments POCT GLU (test code = 6615212930) 155 mg/dL 70-110 H Lab Interpretation (test code = Abnormal 57096-9) [facility] GLUCOSE (AUTOMATED)2022-10-12 02:21:33 Test Item Value Reference Range Interpretation Comments POCT GLU (test code = 3251049585) 229 mg/dL 70-110 H Lab Interpretation (test code = Abnormal 23511-0) [facility] [id number] 00:37:41 Test Item Value Reference Interpretation Comments Range TROPONIN I (test 0.110 ng/mL See_Comment H [Automated code = 1376149418) message] The system which generated this result transmitted reference range : <=0.034. The reference range was not used to interpret this result as normal/abnormal . CLARI (test code = Reference (Normal) CLARI) Range (defined by the 99th percentile reference limit): <= 0.034 ng/mL Note: Cardiac troponin begins to rise 3-4 hours after the onset of ischemia. Repeat in 4-6 hours if the sample was drawn within 3-4 hours of the onset of the symptom and found normal. Diagnosis of myocardial injury is made with acute changes in cTn concentrations with at least one serial sample above the 99th percentile upper reference limit (URL), taken together with the patient's clinical presentation. Biotin has been reported to cause a negative bias, interpret results relative to patient's use of biotin. Lab Interpretation Abnormal (test code = 23551-5) [facility]-12 00:10:15 Test Item Value Reference Range Interpretation Comments HGB A1C (test code = 6.8 % 4.0-5.7 H 4548-4) CLARI (test code = CLARI) Reference RangesNormal: <5.7%Prediabetes: 5.7 - 6.4%Diabetes: > 6.5% Lab Interpretation (test Abnormal code = 16889-3) [facility]-11 23:16:22 Test Item Value Reference Range Interpretation Comments POCT GLU (test code = 3754451031) 246 mg/dL 70-110 H Lab Interpretation (test code = Abnormal 46896-5) [facility] [id number] 15:52:36 Test Item Value Reference Interpretation Comments Range TROPONIN I (test 0.086 ng/mL See_Comment H [Automated code = 3638055201) message] The system which generated this result transmitted reference range : <=0.034. The reference range was not used to interpret this result as normal/abnormal . CLARI (test code = Reference (Normal) CLARI) Range (defined by the 99th percentile reference limit): <= 0.034 ng/mL Note: Cardiac troponin begins to rise 3-4 hours after the onset of ischemia. Repeat in 4-6 hours if the sample was drawn within 3-4 hours of the onset of the symptom and found normal. Diagnosis of myocardial injury is made with acute changes in cTn concentrations with at least one serial sample above the 99th percentile upper reference limit (URL), taken together with the patient's clinical presentation. Biotin has been reported to cause a negative bias, interpret results relative to patient's use of biotin. Lab Interpretation Abnormal (test code = 29215-6) [facility] [id number] 15:49:15 Test Item Value Reference Range Interpretation Comments NT-proBNP (test code 8770 pg/mL See_Comment H [Autom ated = 7928606073) message] The system which generated this result transmitted reference range : <=125. The reference range was not used to interpret this result as normal/abnormal . CLARI (test code = CLARI) Biotin has been reported to cause a negative bias, interpret results relative to patient's use of biotin. Lab Interpretation Abnormal (test code = 41652-6) [facility] 15:41:12 Test Item Value Reference Range Interpretation Comments MAGNESIUM (test code = 7726178902) 2.4 mg/dL 1.7-2.4 Lab Interpretation (test code = Normal 87335-6) [facility] METABOLIC PANEL (38899)2022-10-11 15:40:52 Test Item Value Reference Range Interpretation Comments NA (test code = 133 mmol/L 135-145 L 0016640097) K (test code = 4.7 mmol/L 3.5-5.0 0794440979) CL (test code = 93 mmol/L 98-108 L 6561733313) CO2 TOTAL (test code = 26 mmol/L 23-31 5194482840) AGAP (test code = 2-16 1435274707) BUN (test code = 54 mg/dL 7-23 H 6537097446) GLUCOSE (test code = 195 mg/dL 70-110 H 7610926548) CREATININE (test code = 2.84 mg/dL 0.60-1.25 H 1774983332) TOTAL BILI (test code = 1.3 mg/dL 0.1-1.1 H 8780966379) CALCIUM (test code = 8.5 mg/dL 8.6-10.6 L 5066095300) T PROTEIN (test code = 7.4 g/dL 6.3-8.2 6197315274) ALBUMIN (test code = 4.2 g/dL 3.5-5.0 9868481971) ALK PHOS (test code = 36 U/L 34-122 2591007514) ALTv (test code = 36 U/L 5-50 1742-6) AST(SGOT) (test code = 73 U/L 13-40 H 7955162142) eGFR (test code = mL/min/1.73m2 1101184162) CLARI (test code = CLARI) Association of Glomerular Filtration Rate (GFR) and Staging of Kidney Disease* + --+ --+ ------+| GFR (mL/min/1.73 m2) ?| With Kidney Damage ?| ?Without Kidney Damage+ --------+ --------+ +| ?>90 ?| ?Stage one ?| ? Normal ?+ ---+ ---+ -------+| ?60-89 ?| ?Stage two ?| ? Decreased GFR ? + --+ --+ ------+| ?30-59 ?| ?Stage three ?| ? Stage three ? + --+ --+ ------+| ?15-29 ?| ?Stage four ? | ? Stage four ?+ ---+ ---+ -------+| ?<15 (or dialysis) ? ?| ?Stage five ? | ? Stage five ?+ ---+ ---+ -------+ *Each stage assumes the associated GFR level has been in effect for at least three months. ?Stages 1 to 5, with or without kidney disease, indicate chronic kidney disease. Notes: Determination of stages one and two (with eGFR >59mL/min/1.73 m2) requires estimation of kidney damage for at least three months as defined by structural or functional abnormalities of the kidney, manifested by either:Pathological abnormalities or Markers of kidney damage (including abnormalities in the composition of the blood or urine or abnormalities in imaging tests). Lab Interpretation Abnormal (test code = 98314-5) [facility] WITH [id number] 15:24:10 Test Item Value Reference Range Interpretation Comments WBC (test code = See_Comment H [Automated 6690-2) message] The system which generated this result transmit domenico reference range : 4.20 - 10.70 10*3/?L. The reference range was not used to interpret this result as normal/abnormal . RBC (test code = See_Comment [Automated 789-8) message] The system which generated this result transmit domenico reference range : 4.26 - 5.52 10*6/?L. The reference range was not used to interpret this result as normal/abnormal . HGB (test code = 12.2 g/dL 12.2-16.4 718-7) HCT (test code = 38.5 % 38.4-49.3 4544-3) MCV (test code = 87.3 fL 81.7-95.6 787-2) MCH (test code = 27.7 pg 26.1-32.7 785-6) MCHC (test code = 31.7 g/dL 31.2-35.0 786-4) RDW-SD (test code = 54.0 fL 38.5-51.6 H 21059-7) RDW-CV (test code = 17.1 % 12.1-15.4 H 788-0) PLT (test code = See_Comment H [Automated 777-3) message] The system which generated this result transmit domenico reference range : 150 - 328 10*3/ ?L. The reference range was not u sed to interpret th is result as normal/abnormal . MPV (test code = 10.1 fL 9.8-13.0 33191-5) NRBC/100 WBC (test See_Comment [Automat ed code = 4050574778) message] The system which generated this result transmit domenico reference range : 0.0 - 10.0 /100 WBCs. The reference range was not used to interpret this result as normal/abnormal . NRBC x10^3 (test code See_Comment [Auto mated = 8696278158) message] The system which generated this result transmit domenico reference range : 10*3/?L. The reference range was not used to interpret this result as normal/abnormal . GRAN MAT (NEUT) % 86.6 % (test code = 770-8) IMM GRAN % (test code 0.70 % = 2830723090) LYMPH % (test code = 5.8 % 736-9) MONO % (test code = 5.1 % 5905-5) EOS % (test code = 0.8 % 713-8) BASO % (test code = 1.0 % 706-2) GRAN MAT x10^3(ANC) 10.30 10*3/uL 1.99-6.95 H (test code = 8189793565) IMM GRAN x10^3 (test 0.08 10*3/uL 0.00-0.06 H code = 9909366369) LYMPH x10^3 (test code 0.69 10*3/uL 1.09-3.23 L = 731-0) MONO x10^3 (test code 0.61 10*3/uL 0.36-1.02 = 742-7) EOS x10^3 (test code = 0.10 10*3/uL 0.06-0.53 711-2) BASO x10^3 (test code 0.12 10*3/uL 0.01-0.09 H = 704-7) Lab Interpretation Abnormal (test code = 68845-9) [facility] [id number] 15:36:05 Test Item Value Reference Interpretation Comments Range TROPONIN I (test 0.105 ng/mL See_Comment H [Automated code = 7819130595) message] The system which generated this result transmitted reference range : <=0.034. The reference range was not used to interpret this result as normal/abnormal . CLARI (test code = Reference (Normal) CLARI) Range (defined by the 99th percentile reference limit): <= 0.034 ng/mL Note: Cardiac troponin begins to rise 3-4 hours after the onset of ischemia. Repeat in 4-6 hours if the sample was drawn within 3-4 hours of the onset of the symptom and found normal. Diagnosis of myocardial injury is made with acute changes in cTn concentrations with at least one serial sample above the 99th percentile upper reference limit (URL), taken together with the patient's clinical presentation. Biotin has been reported to cause a negative bias, interpret results relative to patient's use of biotin. Lab Interpretation Abnormal (test code = 12373-8) [facility] [id number] 15:33:02 Test Item Value Reference Range Interpretation Comments NT-proBNP (test code 9250 pg/mL See_Comment H [Autom ated = 3977432620) message] The system which generated this result transmitted reference range : <=125. The reference range was not used to interpret this result as normal/abnormal . CLARI (test code = CLARI) Biotin has been reported to cause a negative bias, interpret results relative to patient's use of biotin. Lab Interpretation Abnormal (test code = 63352-1) [facility] 15:32:42 Test Item Value Reference Range Interpretation Comments DIGOXIN (test code = 0.9 ng/mL 0.8-1.6 2096539583) CLARI (test code = CLARI) Arrythmias: ?1.5 - 2.0 ng/mLToxic Range: ? Greater than or equal to 2.4 ng/mL Lab Interpretation (test Normal code = 50416-4) [facility]. METABOLIC PANEL ([id number])2022-09-22 15:24:42 Test Item Value Reference Range Interpretation Comments NA (test code = 133 mmol/L 135-145 L 9454039003) K (test code = 4.0 mmol/L 3.5-5.0 5517014598) CL (test code = 92 mmol/L 98-108 L 5219265126) CO2 TOTAL (test code = 31 mmol/L 23-31 2888876613) AGAP (test code = 2-16 7932847025) BUN (test code = 52 mg/dL 7-23 H 2712305858) GLUCOSE (test code = 190 mg/dL 70-110 H 1039296865) CREATININE (test code = 3.25 mg/dL 0.60-1.25 H 2384340584) TOTAL BILI (test code = 0.6 mg/dL 0.1-1.4 7970358363) CALCIUM (test code = 8.2 mg/dL 8.6-10.6 L 6539201796) T PROTEIN (test code = 6.7 g/dL 6.3-8.2 9783171885) ALBUMIN (test code = 4.0 g/dL 3.5-5.0 8314360363) ALK PHOS (test code = 47 U/L 34-122 8674367040) ALTv (test code = 38 U/L 5-50 1742-6) AST(SGOT) (test code = 41 U/L 13-40 H 0287234983) eGFR (test code = mL/min/1.73m2 9927588194) CLARI (test code = CLARI) Association of Glomerular Filtration Rate (GFR) and Staging of Kidney Disease* + --+ --+ ------+| GFR (mL/min/1.73 m2) ?| With Kidney Damage ?| ?Without Kidney Damage+ --------+ --------+ +| ?>90 ?| ?Stage one ?| ? Normal ?+ ---+ ---+ -------+| ?60-89 ?| ?Stage two ?| ? Decreased GFR ? + --+ --+ ------+| ?30-59 ?| ?Stage three ?| ? Stage three ? + --+ --+ ------+| ?15-29 ?| ?Stage four ? | ? Stage four ?+ ---+ ---+ -------+| ?<15 (or dialysis) ? ?| ?Stage five ? | ? Stage five ?+ ---+ ---+ -------+ *Each stage assumes the associated GFR level has been in effect for at least three months. ?Stages 1 to 5, with or without kidney disease, indicate chronic kidney disease. Notes: Determination of stages one and two (with eGFR >59mL/min/1.73 m2) requires estimation of kidney damage for at least three months as defined by structural or functional abnormalities of the kidney, manifested by either:Pathological abnormalities or Markers of kidney damage (including abnormalities in the composition of the blood or urine or abnormalities in imaging tests). Lab Interpretation Abnormal (test code = 39545-0) [facility] 15:24:42 Test Item Value Reference Range Interpretation Comments MAGNESIUM (test code = 2336947479) 2.3 mg/dL 1.7-2.4 Lab Interpretation (test code = Normal 37921-1) [facility] WITH [id number] 15:15:21 Test Item Value Reference Range Interpretation Comments WBC (test code = See_Comment [Automated 6690-2) message] The sy stem which generated this result transmitted reference range : 4.20 - 10.70 10*3/?L. The reference range was not used to interpret this result as normal/abnormal . RBC (test code = See_Comment L [Automated 789-8) message] The sy stem which generated this result transmitted reference range : 4.26 - 5.52 10*6/?L. The reference range was not used to interpret this result as normal/abnormal . HGB (test code = 9.7 g/dL 12.2-16.4 L 718-7) HCT (test code = 30.3 % 38.4-49.3 L 4544-3) MCV (test code = 88.3 fL 81.7-95.6 787-2) MCH (test code = 28.3 pg 26.1-32.7 785-6) MCHC (test code = 32.0 g/dL 31.2-35.0 786-4) RDW-SD (test code = 45.7 fL 38.5-51.6 21726-0) RDW-CV (test code = 14.2 % 12.1-15.4 788-0) PLT (test code = See_Comment H [Automated 777-3) message] The sy stem which generated this result transmitted reference range : 150 - 328 10*3/ ?L. The reference r ignacio was not used to interpret this result as normal/abnormal . MPV (test code = 10.3 fL 9.8-13.0 20935-4) NRBC/100 WBC (test See_Comment [Automat ed code = 6180254692) message] The system which generated this result transmitted reference range : 0.0 - 10.0 /100 WBCs. The refer ence range was not u sed to interpret th is result as normal/abnormal . NRBC x10^3 (test code See_Comment [Auto mated = 0018433376) message] The s ystem which generated this result transmitted reference range : 10*3/?L. The reference range was not used to interpret this result as normal/abnormal . GRAN MAT (NEUT) % 78.9 % (test code = 770-8) IMM GRAN % (test code 0.70 % = 7204176413) LYMPH % (test code = 9.5 % 736-9) MONO % (test code = 8.3 % 5905-5) EOS % (test code = 1.3 % 713-8) BASO % (test code = 1.3 % 706-2) GRAN MAT x10^3(ANC) 7.10 10*3/uL 1.99-6.95 H (test code = 4747812904) IMM GRAN x10^3 (test 0.06 10*3/uL 0.00-0.06 code = 4239168242) LYMPH x10^3 (test code 0.86 10*3/uL 1.09-3.23 L = 731-0) MONO x10^3 (test code 0.75 10*3/uL 0.36-1.02 = 742-7) EOS x10^3 (test code = 0.12 10*3/uL 0.06-0.53 711-2) BASO x10^3 (test code 0.12 10*3/uL 0.01-0.09 H = 704-7) Lab Interpretation Abnormal (test code = 55136-3) [facility]-[id number] 23:53:00 Test Item Value Reference Interpretation Comments Range NT-proBNP (test 3037 pg/mL H Male Risk: Optimal code = 30165-6) < 253 pg/mL High > or = 253 pg/mL For Heart Failure ( HF) diagnosis, referenceranges in patients with dyspnea are bas ed Hilary PATTON, E t al. J Am Kelly Cardiol.2018;71 :1191 -1200. 18-49 ye ars: <= 300 pg/mL No rmal, HF unlikely >= 450 pg/mL High probability of HF50-75 years: <= 300 pg/mL Hillary l, HF unlikely >= 900 pg/mL High probability of HF>75 years: <= 300 p g/mL Normal, HF unli shayy >= 1800 pg/mL H igh probability of HF For patients wi th coronary heart disease, theopt imal risk category c ut points for inci dent HFor CVD (<253 pg/mL men, <372 pg/mL women) arebased on Mario gonzalez T, et al. J Am Kelly Cardiol.2007:50 :205- 14. For patient s with existing H F, the optimal riskcategory cu t point for HF progression (<3 00 pg/mL)is based on Bob KB, et al. Clin Biochem.2010;43 :1405 -10. For additi onal information, pl ease refer tohttp://educat ion.[employer] .[employer]/ faq/NDR580(This link is being provid ed for informational/e ducat ionalpurposes o nly.) CLARI (test code = FASTING:NO CLARI) FASTING: NO RAC (test code = Performing RAC) Organization Information: Site ID: [id number] Name: [employer] [facility], Address: [address] [place] [id number] Director: Verenice Flowers MD,PhD,YASH Lab Interpretation Abnormal (test code = 78433-9) [facility] OhijxrtsFREA-OrF-6 (COVID-19) RNA [Presence] in Respiratory specimen by SUMANTH with probe [id number] 23:25:37 Test Item Value Reference Range Interpretation Comments SARS-CoV-2 (COVID-19) RNA Not detected [Presence] in Respiratory specimen by SUMANTH with probe detection (test code = 91539-1) Whether patient is employed in a Unknown healthcare setting (test code = 27148-0) Whether the patient has symptoms Unknown related to condition of interest (test code = 34891-0) Whether the patient was Unknown hospitalized for condition of interest (test code = 54864-2) Whether the patient was admitted Unknown to intensive care unit (ICU) for condition of interest (test code = 02498-5) Whether patient resides in a Unknown congregate care setting (test code = 55937-9) status (test code = Unknown 68026-7) Date and time of symptom onset Unknown (test code = 26339-0) PALAK HUDSONSARS-CoV-2 (COVID-19) RNA [Presence] in Respiratory specimen by SUMANTH with probe kxthgudar6419-75-69 18:18:35 Test Item Value Reference Range Interpretation Comments SARS-CoV-2 (COVID-19) RNA Not detected [Presence] in Respiratory specimen by SUMANTH with probe detection (test code = 39805-8) Whether patient is employed in a Unknown healthcare setting (test code = 79745-4) Whether the patient has symptoms Unknown related to condition of interest (test code = 38468-1) Whether the patient was Unknown hospitalized for condition of interest (test code = 89218-3) Whether the patient was admitted Unknown to intensive care unit (ICU) for condition of interest (test code = 41084-6) Whether patient resides in a Unknown congregate care setting (test code = 60264-7) status (test code = Unknown 33378-7) Date and time of symptom onset Unknown (test code = 60845-5) PALAK HUDSONSARS-CoV-2 (COVID-19) RNA [Presence] in Respiratory specimen by SUMANTH with probe mahscafei3626-45-08 16:02:45 Test Item Value Reference Range Interpretation Comments SARS-CoV-2 (COVID-19) RNA Not detected [Presence] in Respiratory specimen by SUMANTH with probe detection (test code = 65678-5) Whether patient is employed in a Unknown healthcare setting (test code = 42772-2) Whether the patient has symptoms Unknown related to condition of interest (test code = 05240-6) Whether the patient was Unknown hospitalized for condition of interest (test code = 65662-4) Whether the patient was admitted Unknown to intensive care unit (ICU) for condition of interest (test code = 43333-6) Whether patient resides in a Unknown congregate care setting (test code = 85302-0) status (test code = Unknown 88236-5) Date and time of symptom onset Unknown (test code = 75006-0) PALAK ALVES [facility] metabolic kohmb3382-92-64 07:40:00 Test Item Value Reference Interpretation Comments Range Glucose (test code 108 mg/dL 65-99 H Fasting reference = 2345-7) interval For so meone without known diabetes, a glu cose valuebetween 10 0 and 125 mg/dL is consistent withprediabetes and should be confi rmed with afollow-up test. BUN (test code = 39 mg/dL 7-25 H 3094-0) Creatinine (test 2.85 mg/dL 0.70-1.28 H code = 2160-0) eGFR (test code = See_Comment L The eGFR i s based on 8257) the CKD-EPI 202 1 equation. To calculate the n ew eGFR from a pre vious Creatinine or Cystatin Cresul t, go to https://www.kid jennie.o rg/professional s/kdo qi/gfr%5Fcalcul ator [Automated mess age] The system [employer] generated this result transmit domenico reference range : > OR = 60 mL/min/1.73m2. The reference range was not used to interpret this result as normal/abnormal . BUN/creatinine See_Comment [Automated m essage] ratio (test code = The syste m which 3097-3) generated this result transmit domenico reference range : 6 - 22 (calc). The reference range was not used to interpret this result as normal/abnormal . Sodium (test code = 139 mmol/L 180-849 3802-2) Potassium (test 5.8 mmol/L 3.5-5.3 H code = 2823-3) Chloride (test code 104 mmol/L 98-110 = 2075-0) CO2 (test code = 27 mmol/L 20-32 2027-9) Calcium (test code 9.4 mg/dL 8.6-10.3 = 47162-0) RAC (test code = Performing RAC) Organization Information: Site ID: RGA [facility] Address: [address] [place] [address] Director: Jake Sow Lab Interpretation Abnormal (test code = 32309-0) [facility] [id number] 19:28:00 Test Item Value Reference Range Interpretation Comments Digoxin (test See_Comment BRITTANY Anti-Digox in code = 68865-1) (Digibind(R) ) in serum/plasma of patients under toxicity therap y may interferewith t he digoxin immunoa ssay. [Automated mess age] The system [employer] generated this result transmit domenico reference range : 0.8 - 2.0 mcg/L. Th e reference range was not used to interpret this result as normal/abnormal . CLARI (test code FASTING:YES = CLARI) FASTING: YES RAC (test code Performing = RAC) Organization Information: Site ID: RGA [facility]: [facility] Address: [address] [place] [phone] Director: Jake Sow [facility] with platelet and siddnzadvlxe3324-18-09 19:28:00 Test Item Value Reference Interpretation Comments Range WBC (test code = See_Comment [Automated message] 6690-2) The system whic h generated this result transmitted ref erence range: 3.8 - 10 .8 Thousand/uL. Th e reference range was not used to int erpret this result as normal/abnormal . RBC (test code = See_Comment [Automated message] 789-8) The system [facility] h generated this result transmitted ref erence [...] 9.1 fL 7.5-12.5 776-5) Neutrophils, See_Comment [Automated [employer] amy] absolute (test code The syst em which = 751-8) generated this result transmitted ref erence range: 1,500 - 7,800 cells/uL. The reference range was not used to int erpret this result as normal/abnormal . Lymphocytes, See_Comment [Automated mes amy] absolute (test code The syst em which = 731-0) generated this result transmitted ref erence range: 850 - 3, 900 cells/uL. The reference range was not used to int erpret this result as normal/abnormal . Monocytes, absolute See_Comment [Automa domenioc message] (test code = 742-7) The syst em which generated this result transmitted ref erence range: 200 - 95 0 cells/uL. The reference range was not used to int erpret this result as normal/abnormal . Eosinophils, See_Comment [Automated mes amy] absolute (test code The syst em [...] RAC) Organization Information: Site ID: RGA Name: [facility] Address: [address] [place] [phone] Director: Jake Sow Lab Interpretation Abnormal (test code = 64254-5) [facility]bgm[facility]-ktnBYZ5597-98-24 19:28:00 Test Item Value Reference Interpretation Comments Range NT-proBNP (test 1974 pg/mL H Male Risk: Optimal code = 04796-2) < 253 pg/mL High > or = 253 pg/mL For Heart Failure ( HF) diagnosis, referenceranges in patients with dyspnea are bas ed Hilary PATTON, E t al. J Am Kelly Cardiol.2018;71 :1191 -1200. 18-49 ye ars: <= 300 pg/mL No rmal, HF unlikely >= 450 pg/mL High probability of HF50-75 years: <= 300 pg/mL Hillary l, HF unlikely >= 900 pg/mL High [...] progression (<3 00 pg/mL)is based on Shayy TAPIA et al. Clin Biochem.2010;43 :1405 -10. For additi onal information, pl ease refer tohttp://educat [employer].MPSTOR/ faq/NQT277(This link is being provid ed for informational/e ducat ionalpurposes o nly.) CLARI (test code = FASTING:YES CLARI) FASTING: YES RAC (test code = Performing RAC) Organization Information: Site ID: EZ Name: [facility], Address: [address] [place] [id number] Director: Verenice Flowers MD,PhD,YASH Lab Interpretation Abnormal (test code = 06225-8) [facility] [id number] 21:31:00 Test Item Value Reference Range Interpretation Comments POC glucose (test 91 mg/dL 65-99 Wireworker Supervisor N guy: Vlad code = 45098-5) [employer] ID: [id number] able: ON LICENSE OF [facility] Notified RN [facility] [id number] 21:31:00 Test Item Value Reference Range Interpretation Comments POC glucose (test 91 mg/dL 65-99 Wireworker Supervisor N guy: Chu code = 87847-0) [employer] ID: [id number] able: ON LICENSE OF [facility] Notified RN [facility] [id number] 21:31:00 Test Item Value Reference Range Interpretation Comments POC glucose (test 91 mg/dL 65-99 Wireworker Supervisor N guy: Chu code = 38514-2) [employer] ID: [id number] able: ON LICENSE OF [facility] Notified RN [facility] [id number] 18:22:00 Test Item Value Reference Range Interpretation Comments Activated clotting 111 See_Comment Wireworker Supervisor Name: Naidu time (test code = Liang parker ID: [id number]) [id number] [Autom ated message] The sy stem which generated this result transmitted ref erence range: 96 - 152 sec. The reference range was not used to interpr et this result as hillary l/abnormal. [facility] clot[facility] [id number] 18:22:00 Test Item Value Reference Range Interpretation Comments Activated clotting See_Comment Wireworker Supervisor Name: Naidu time (test code = Liang evice ID: [id number]) [id number] [Autom ated message] The sy stem which generated this result transmitted ref erence range: 96 - 152 sec. The reference range was not used to interpr et this result as hillary l/abnormal. [facility] HospitalAct[facility] clotting [id number] 18:22:00 Test Item Value Reference Range Interpretation Comments Activated clotting See_Comment Wireworker Supervisor Name: Naidu time (test code = Liang evice ID: [id number]) [id number] [Autom ated message] The sy stem which generated this result transmitted ref erence range: 96 - 152 sec. The reference range was not used to interpr et this result as hillary l/abnormal. [facility] HospitalActivated clotting [id number] 18:22:00 Test Item Value Reference Range Interpretation Comments Activated clotting See_Comment Wireworker Supervisor Name: Naidu time (test code = Liang evice ID: [id number]) [id number] [Autom ated message] The sy stem which generated this result transmitted ref erence range: 96 - 152 sec. The reference range was not used to interpr et this result as hillary l/abnormal. [facility] arterial blood gas, corrected and [id number] 18:12:00 Test Item Value Reference Range Interpretation Comments pH, arterial (test 7.42 7.35-7.45 code = 2744-1) pCO2, arterial (test 39 See_Comment [Autom ated code = 2019-8) message] The system which generated this result [...] this result as normal/abnormal . Temperature, Celsius 37.0 Degrees C (test code = 8310-5) O2 saturation, 95-100 arterial (test code = 2708-6) pH, arterial 7.42 corrected (test code = 76425-2) pCO2, arterial 39 mmHg corrected (test code = 73327-1) pO2, arterial Unable to mmHg Wireworker Supervisor ID: corrected (test code report Jeremy a = 40770-7) AmandaDevice ID : [id number] Base excess, arterial 1 See_Comment [Auto mated (test code = 192-7) message ] The system which generated this result transmit domenico reference range : -2 - 2 mEq/L. T he reference range was not used to interpret this result as normal/abnormal . Hemoglobin, syringe 10.5 g/dL 14.0-18.0 L (test code = 718-7) Potassium, syringe 4.1 See_Comment [Automat ed (test code = 2007) message] The system which generated this result transmit domenico reference range : 3.5 - 5.0 mEq/L . The reference range was not u sed to interpret th is result as normal/abnormal . Sodium, syringe (test 139 See_Comment [Auto mated code = 2947-0) message] The system which generated this result transmit domenico reference range : 135 - 148 mEq/L . The reference range was not u sed to interpret th is result as normal/abnormal . Ionized calcium, 1.04 mmol/L 1.11-1.32 L arterial (test code = 99783-1) Glucose, syringe 70 mg/dL 65-99 (test code = 2345-7) Lactic acid, syringe 0.5 mmol/L 0.5-2.2 (test code = 13827-9) Lab Interpretation Abnormal (test code = 92505-0) [facility] arterial blood gas, corrected and [id number] 18:12:00 Test Item Value Reference Range Interpretation [...] 2708-6) pH, arterial corrected (test code = 45216-8) pCO2, arterial mmHg corrected (test code = 54858-9) pO2, arterial Unable to mmHg Wireworker Supervisor ID: corrected (test code report Andrearr a = 07135-8) AmandaDevice ID : [id number] Base excess, arterial See_Comment [Auto mated (test [...] mmol/L 1.11-1.32 L arterial (test code = 32966-3) Glucose, syringe 70 mg/dL 65-99 (test code = 2345-7) Lactic acid, syringe 0.5 mmol/L 0.5-2.2 (test code = 91287-7) Lab Interpretation Abnormal (test code = 99839-4) [facility] arterial blood gas, corrected and [id number] 18:12:00 Test Item Value Reference Range Interpretation [...] 2708-6) pH, arterial corrected (test code = 90303-2) pCO2, arterial mmHg corrected (test code = 64673-4) pO2, arterial Unable to mmHg Wireworker Supervisor ID: corrected (test code report Andrearr a = 34669-5) AmandaDevice ID : [id number] Base excess, arterial See_Comment [Auto mated (test [...] mmol/L 1.11-1.32 L arterial (test code = 27800-4) Glucose, syringe 70 mg/dL 65-99 (test code = 2345-7) Lactic acid, syringe 0.5 mmol/L 0.5-2.2 (test code = 25557-3) Lab Interpretation Abnormal (test code = 95796-0) [facility] arterial blood gas, corrected and [id number] 18:12:00 Test Item Value Reference Range Interpretation [...] 2708-6) pH, arterial corrected (test code = 03357-0) pCO2, arterial mmHg corrected (test code = 28892-2) pO2, arterial Unable to mmHg Wireworker Supervisor ID: corrected (test code report Andrearr a = 15917-8) AmandaDevice ID : [id number] Base excess, arterial See_Comment [Auto mated (test [...] mmol/L 1.11-1.32 L arterial (test code = 08965-5) Glucose, syringe 70 mg/dL 65-99 (test code = 2345-7) Lactic acid, syringe 0.5 mmol/L 0.5-2.2 (test code = 98832-4) Lab Interpretation Abnormal (test code = 69927-7) [facility] HospitalGlucose level, yaauune7727-29-03 13:37:00 Test Item Value Reference Range Interpretation Comments Glucose, syringe (test code = 121 mg/dL 65-99 H 2345-7) Lab Interpretation (test code = Abnormal 77249-8) [facility]em[facility], mktwkrh9427-07-79 13:37:00 Test Item Value Reference Range Interpretation Comments Hemoglobin, syringe (test code = 12.1 g/dL 14.0-18.0 L 718-7) Lab Interpretation (test code = Abnormal 28811-9) [facility]Potassium, [id number] 13:37:00 Test Item Value Reference Range Interpretation Comments Potassium, syringe 4.8 See_Comment [Automat ed message] The (test code = 2007) system [employer] generated this result tra nsmitted reference range : 3.5 - 5.0 mEq/L. The refe rence range was not used to interpret this result as normal/abnormal . [facility], [id number] 13:37:00 Test Item Value Reference Range Interpretation Comments Sodium, syringe (test 141 See_Comment [Auto mated message] The code = 2947-0) system which generated this result tra nsmitted reference range : 135 - 148 mEq/L. The refe rence range was not used to interpret this result as normal/abnormal . [facility] HospitalGlucose level, [id number] 13:37:00 Test Item Value Reference Range Interpretation Comments Glucose, syringe (test code = 121 mg/dL 65-99 H 2345-7) Lab Interpretation (test code = Abnormal 66109-5) [facility], [id number] 13:37:00 Test Item Value Reference Range Interpretation Comments Hemoglobin, syringe (test code = 12.1 g/dL 14-18 L 718-7) Lab Interpretation (test code = Abnormal 32751-4) [facility]Potassium, wdvzhym8079-89-17 13:37:00 Test Item Value Reference Range Interpretation Comments Potassium, syringe See_Comment [Automat ed message] The (test code = 2007) system [facility] generated this result tra nsmitted reference range : 3.5 - 5.0 mEq/L. The refe rence range was not used to interpret this result as normal/abnormal . [facility] Hospital[facility] level, [id number] 13:37:00 Test Item Value Reference Range Interpretation Comments Sodium, syringe (test See_Comment [Auto mated message] The code = 2947-0) system which generated this result tra nsmitted reference range : 135 - 148 mEq/L. The refe rence range was not used to interpret this result as normal/abnormal . [facility]Glucose level, [id number] 13:37:00 Test Item Value Reference Range Interpretation Comments Glucose, syringe (test code = 121 mg/dL 65-99 H 2345-7) Lab Interpretation (test code = Abnormal 53949-8) [facility]em[facility], wpmojkv1404-94-88 13:37:00 Test Item Value Reference Range Interpretation Comments Hemoglobin, syringe (test code = 12.1 g/dL 14-18 L 718-7) Lab Interpretation (test code = Abnormal 31400-4) [facility]Potassium, vcqhpvs6437-00-34 13:37:00 Test Item Value Reference Range Interpretation Comments Potassium, syringe See_Comment [Automat ed message] The (test code = 2007) system [employer] generated this result tra nsmitted reference range : 3.5 - 5.0 mEq/L. The refe rence range was not used to interpret this result as normal/abnormal . [facility], [id number] 13:37:00 Test Item Value Reference Range Interpretation Comments Sodium, syringe (test See_Comment [Auto mated message] The code = 2947-0) system which generated this result tra nsmitted reference range : 135 - 148 mEq/L. The refe rence range was not used to interpret this result as normal/abnormal . [facility]Glucose level, [id number] 13:37:00 Test Item Value Reference Range Interpretation Comments Glucose, syringe (test code = 121 mg/dL 65-99 H 2345-7) Lab Interpretation (test code = Abnormal 57871-9) [facility]Hemoglobin, [id number] 13:37:00 Test Item Value Reference Range Interpretation Comments Hemoglobin, syringe (test code = 12.1 g/dL 14.0-18.0 L 718-7) Lab Interpretation (test code = Abnormal 94678-2) [facility]Potassium, [id number] 13:37:00 Test Item Value Reference Range Interpretation Comments Potassium, syringe See_Comment [Automat ed message] The (test code = 2007) system [facility] generated this result tra nsmitted reference range : 3.5 - 5.0 mEq/L. The refe rence range was not used to interpret this result as normal/abnormal . [facility]2022-08-11 13:37:00 Test Item Value Reference Range Interpretation Comments Sodium, syringe (test See_Comment [Auto mated message] The code = 2947-0) system which generated this result tra nsmitted reference range : 135 - 148 mEq/L. The refe rence range was not used to interpret this result as normal/abnormal . [facility]2022-07-12 17:22:01 Test Item Value Reference Range Interpretation Comments POC creatinine (test 2.9 mg/dl 0.7-1.2 H Operato r Name: code = 69700-5) Sherif Hay diDevice ID: [id number] POC hematocrit (test 41 % 41-51 code = 4544-3) Lab Interpretation (test Abnormal code = 80809-6) [facility]2022-07-12 17:22:01 Test Item Value Reference Range Interpretation Comments POC creatinine (test 2.9 mg/dl 0.7-1.2 H Operato r Name: code = 83251-2) Sherif Markham diDevice ID: [id number] POC hematocrit (test 41 % 41-51 code = 4544-3) Lab Interpretation (test Abnormal code = 45480-4) [facility]2022-07-12 17:22:01 Test Item Value Reference Range Interpretation Comments POC creatinine (test 2.9 mg/dl 0.7-1.2 H Operato r Name: code = 77396-0) Sherif Markham diDevice ID: [id number] POC hematocrit (test 41 % 41-51 code = 4544-3) Lab Interpretation (test Abnormal code = 78946-4) [facility]2022-07-12 17:22:01 Test Item Value Reference Range Interpretation Comments POC creatinine (test 2.9 mg/dl 0.7-1.2 H Operato r Name: code = 11071-0) Sherif Markham diDevice ID: [id number] POC hematocrit (test 41 % 41-51 code = 4544-3) Lab Interpretation (test Abnormal code = 51082-0) [facility]2022-06-30 10:15:00 Test Item Value Reference Range Interpretation Comments BUN (test code = 3094-0) 59 mg/dL 7-25 H RAC (test code = RAC) Performing Organization Information: Site ID: SHELLY [facility] Address: [address] [place] [address] Director: Jake Sow Lab Interpretation (test Abnormal code = 47398-4) [facility] HospitalCreatinine [id number] 10:15:00 Test Item Value Reference Interpretation Comments Range Creatinine (test 3.91 mg/dL 0.7-1.18 H For patient s >49 code = 2160-0) years of age, the reference limit for Creatinine is approximately 1 3% higher for peopleidentifie d as -Ida n. EGFR Non-Afr. See_Comment L [Automated me ssage] Pakistani (test code The syst em which = 8705) generated this result transmit domenico reference range : > OR = 60 mL/min/1.73m2. The reference range was not used to interpret this result as normal/abnormal . EGFR See_Comment L [Automated mes amy] Pakistani (test code The syst em which = 4634) generated this result transmit domenico reference range : > OR = 60 mL/min/1.73m2. The reference range was not used to interpret this result as normal/abnormal . RAC (test code = Performing RAC) Organization Information: Site ID: SHELLY [facility] Address: [address] [place] [address] Director: Jake Sow Lab Interpretation Abnormal (test code = 29837-8) [facility] HospitalFerritin [id number] 10:15:00 Test Item Value Reference Range Interpretation Comments Ferritin level (test 96 ng/mL 24-380 code = 2276-4) RAC (test code = RAC) Performing Organization Information: Site ID: SHELLY [facility] Address: [address] [place] [address] Director: Jake Sow [facility] HospitalBUN [id number] 10:15:00 Test Item Value Reference Range Interpretation Comments BUN (test code = 3094-0) 59 mg/dL 7-25 H RAC (test code = RAC) Performing Organization Information: Site ID: RGA [facility] Address: [address] [place] [phone] Director: Jake Sow Lab Interpretation (test Abnormal code = 62887-5) [facility] iron binding [id number] 10:15:00 Test Item Value Reference Range Interpretation [...] RAC) Organization Information: Site ID: RGA [facility] Address: [address] [place] [phone] Director: Jake Sow Lab Interpretation Abnormal (test code = 19940-1) [facility] [id number] 10:15:00 Test Item Value Reference Interpretation Comments Range Creatinine (test 3.91 mg/dL 0.7-1.18 H For patient s >49 code = 2160-0) years of age, the reference limit for Creatinine is approximately 1 3% higher for peopleidentifie d as -Ida n. EGFR Non-Afr. See_Comment L [Automated me ssage] Pakistani (test code The syst em which = 7256) generated this result transmit domenico reference range : > OR = 60 mL/min/1.73m2. The reference range was not used to interpret this result as normal/abnormal . EGFR See_Comment L [Automated mes amy] Pakistani (test code The syst em which = 6432) generated this result transmit domenico reference range : > OR = 60 mL/min/1.73m2. The reference range was not used to interpret this result as normal/abnormal . RAC (test code = Performing RAC) Organization Information: Site ID: SHELLY [facility] Address: [address] [place], [place] [id number] Director: Jake Sow Lab Interpretation Abnormal (test code = 39750-9) [facility] [id number] 10:15:00 Test Item Value Reference Range Interpretation Comments Ferritin level (test 96 ng/mL 24-380 code = 2276-4) RAC (test code = RAC) Performing Organization Information: Site ID: A [facility] Address: [address] [place], [place] [id number] Director: Jake Sow [facility] HospitalB[facility] [id number] 10:15:00 Test Item Value Reference Range Interpretation Comments BUN (test code = 3094-0) 59 mg/dL 7-25 H RAC (test code = RAC) Performing Organization Information: Site ID: Genna [facility] Address: [address] [place] [address] Director: Jake Sow Lab Interpretation (test Abnormal code = 63686-0) [facility] iron binding [id number] 10:15:00 Test Item Value Reference Range Interpretation [...] = Performing RAC) Organization Information: Site ID: [facility] Address: [address] [place] [address] Director: Jake Sow Lab Interpretation Abnormal (test code = 39249-7) [facility] HospitalCreatinine [id number] 10:15:00 Test Item Value Reference Interpretation Comments Range Creatinine (test 3.91 mg/dL 0.70-1.18 H For patient s >49 code = 2160-0) years of age, the reference limit for Creatinine is approximately 1 3% higher for peopleidentifie d as -Ida n. EGFR Non-Afr. See_Comment L [Automated me ssage] Pakistani (test code The syst em which = 4395) generated this result transmit domenico reference range : > OR = 60 mL/min/1.73m2. The reference range was not used to interpret this result as normal/abnormal . EGFR See_Comment L [Automated mes amy] Pakistani (test code The syst em which = 6414) generated this result transmit domenico reference range : > OR = 60 mL/min/1.73m2. The reference range was not used to interpret this result as normal/abnormal . RAC (test code = Performing RAC) Organization Information: Site ID: [facility] Address: [address] [place] [address] Director: Jake Sow Lab Interpretation Abnormal (test code = 86154-1) [facility] HospitalFerritin [id number] 10:15:00 Test Item Value Reference Range Interpretation Comments Ferritin level (test 96 ng/mL 24-380 code = 2276-4) RAC (test code = RAC) Performing Organization Information: Site ID: [facility] Address: [address] [place] [address] Director: Jake Sow [facility] HospitalBUN [id number] 10:15:00 Test Item Value Reference Range Interpretation Comments BUN (test code = 3094-0) 59 mg/dL 7-25 H RAC (test code = RAC) Performing Organization Information: Site ID: [facility] Name[facility] Address: [address] [place] [address] Director: Jake Sow Lab Interpretation (test Abnormal code = 91060-8) [facility] HospitalTotal iron binding [id number] 10:15:00 Test Item Value Reference Range Interpretation [...] RAC) Organization Information: Site ID: RGA Name: [facility] Address: [address] [place] [phone] Director: Jake Sow Lab Interpretation Abnormal (test code = 02050-5) [address]2022-06-23 03:09:41 Test Item Value Reference Range [...] 21-SEP-2021 14:08,-Electronic atrial pacemaker has replaced Sinus rhythm-Electronically Signed By Taylor COLEMAN, [facility] ([id number]) on 03/08/2022 10:09:[address]2022-06-23 03:09:41 Test Item Value Reference Range [...] 14:08,-Electronic atrial pacemaker has replaced Sinus rhythm- [facility] 12 [id number] 03:09:41 Test Item Value Reference Range Interpretation [...] 14:08,-Electronic atrial pacemaker has replaced Sinus rhythm- [facility] natriuretic [id number] 18:20:00 Test Item Value Reference Interpretation Comments Range BNP (test code = 331 pg/mL See_Comment H B[place] increase 98791-5) [facility] the highes t values seen inindividuals g reater than 75 years o f age.Reference: J. Am. Kelly. Cardiol. 2002; 40:976-982. [Automated mess age] The system [employer] generated this result transmitted ref erence range: <=100. T he reference range was not used to int erpret this result as normal/abnormal . CLARI (test code = FASTING:YES CLARI) FASTING: YES RAC (test code = Performing RAC) Organization Information: Site ID: RGA [facility] Address: [address] [place] [phone] Director: Jake Sow Lab Interpretation Abnormal (test code = 05351-7) [facility] natriuretic [id number] 18:20:00 Test Item Value Reference Interpretation Comments Range BNP (test code = 331 pg/mL See_Comment H B[place] increase 78595-7) with age in the [facility] on with the highes t values seen inindividuals g reater than 75 years o f age.Reference: J. Am. Kelly. Cardiol. 2002; 40:976-982. [Automated mess age] The system [employer] generated this result transmitted ref erence range: <=100. T he reference range was not used to int erpret this result as normal/abnormal . CLARI (test code = FASTING:YES CLARI) FASTING: YES RAC (test code = Performing RAC) Organization Information: Site ID: RGA Name: [facility] Lab Address: [address] [place] [address] Director: Jake Sow Lab Interpretation Abnormal (test code = 51334-9) [facility] natriuretic [id number] 18:20:00 Test Item Value Reference Interpretation Comments Range BNP (test code = 331 pg/mL See_Comment H [place] 10507-3) with age in the [facility] on with the highes t values seen inindividuals g reater than 75 years o f age.Reference: J. Am. Kelly. Cardiol. 2002; 40:976-982. [Automated mess age] The system [employer] generated this result transmitted ref erence range: <=100. T he reference range was not used to int erpret this result as normal/abnormal . CLARI (test code = FASTING:YES CLARI) FASTING: YES RAC (test code = Performing RAC) Organization Information: Site ID: RGA Name: [facility] Lab Address: [address] [place], [place] [id number] Director: Jake Sow Lab Interpretation Abnormal (test code = 04679-7) [facility] [id number] 18:37:00 Test Item Value Reference Interpretation Comments Range Digoxin (test code = See_Comment L BRITTANY Ant i-Digoxin 10281-6) (Digibind(R)) i n serum/plasma of patients under [...] RAC) Organization Information: Site ID: RGA Name: [facility] Address: [address] [place] [id number] Director: Jake Sow Lab Interpretation Abnormal (test code = 94170-9) [facility] HospitalJcpzwrwsPT-[id number] 18:37:00 Test Item Value Reference Interpretation Comments Range NT-proBNP (test 746 pg/mL H Male Risk: Optimal code = 54438-5) < 253 pg/mL High > or = 253 pg/mL For Heart Failure ( HF) diagnosis, referenceranges in patients with dyspnea are bas ed onParis PATTON E t al. J Am Kelly Cardiol.2018;71 :1191 -1200. 18-49 ye ars: <= 300 pg/mL No rmal, HF unlikely >= 450 pg/mL High probability of HF50-75 years: <= 300 pg/mL Hillary l, HF unlikely >= 900 pg/mL High probability of HF>75 years: <= 300 p g/mL Normal, HF unli shayy >= 1800 pg/mL H igh probability of HF For patients wi th coronary heart disease, theopt imal risk category c ut points for inci dent HFor CVD (<253 pg/mL men, <372 pg/mL women) arebased on Mario gonzalez T et al. J Am Kelly Cardiol.2007:50 :205- 14. For patient s with existing H F, the optimal riskcategory cu t point for HF progression (<3 00 pg/mL)is based on Shayy KB, et al. Clin Biochem.2010;43 :1405 -10. For additi onal information, pl ease refer tohttp://educat ion.MPSTOR/ faq/NTY360(This link is being provid ed for informational/e ducat ionalpurbeka o nly.) CLARI (test code = FASTING:YES CLARI) FASTING: YES RAC (test code = Performing RAC) Organization Information: Site ID: EZ Name: [facility], Address: [address] [place] [address] Director: Verenice Flowers MD,PhD,YASH Lab Interpretation Abnormal (test code = 61829-0) [facility] [id number] 18:37:00 Test Item Value Reference Interpretation Comments Range Digoxin (test code = See_Comment L BRITTANY Ant i-Digoxin 46593-1) (Digibind(R)) i n serum/plasma of patients under [...] RAC) Organization Information: Site ID: RGA Name: [facility] Address: [address] [place] [id number] Director: Jake Sow Lab Interpretation Abnormal (test code = 61648-8) [facility] HospitalYrmwqjbrDU-seoDFS5992-93-04 18:37:00 Test Item Value Reference Interpretation Comments Range NT-proBNP (test 746 pg/mL H Male Risk: Optimal code = 03885-0) < 253 pg/mL High > or = 253 pg/mL For Heart Failure ( HF) diagnosis, referenceranges in patients with dyspnea are bas ed Hilary PATTON, E t al. J Am Kelly Cardiol.2018;71 :1191 -1200. 18-49 ye ars: <= 300 pg/mL No rmal, HF unlikely >= 450 pg/mL High probability of HF50-75 years: <= 300 pg/mL Hillary l, HF unlikely >= 900 pg/mL High [...] additi onal information, pl ease refer tohttp://educat RORE MEDIA/ faq/PYG669(This link is being provid ed for informational/e ducat ionalpurposes o nly.) CLARI (test code = FASTING:YES CLARI) FASTING: YES RAC (test code = Performing RAC) Organization Information: Site ID: EZ Name: [facility], Address: [address] [place] [id number] Director: Verenice Flowers MD,PhD,YASH Lab Interpretation Abnormal (test code = 36370-4) Jehovah'S Witness RubrwhgfHJNP-ShN-7 (COVID-19) RNA [Presence] in Respiratory specimen by SUMANTH with probe [id number] 02:14:28 Test Item Value Reference Range Interpretation Comments SARS-CoV-2 (COVID-19) RNA Not detected Not-Detected [Presence] in Respiratory specimen by SUMANTH with probe detection (test code = 43839-3) Whether patient is employed in a healthcare setting (test code = 11668-7) Whether the patient has symptoms related to condition of interest (test code = 37755-3) Patient was hospitalized because of this condition (test code = 84522-4) Whether the patient was admitted to intensive care unit (ICU) for condition of interest (test code = 40595-8) Whether patient resides in a congregate care setting (test code = 35689-1) PALAK ALVES WESTIMMUNOFIXATION ELECTROPHORESIS (ANAND)2018-03-22 09:59:00 Test Item Value Reference Range Interpretation Comments IMMUNOGLOBULIN G (IGG) 944 mg/dL 540-1822 (LAURAAKER) (test code = 427) IMMUNOGLOBULIN A (IGA) 137 mg/dL 63-484 (LAURAAKER) (test code = 639) IMMUNOGLOBULIN M (IGM) 41 mg/dL 22-293 (BEAKER) (test code = 638) SERUM ANAND ID ([facility]) No monoclonal (test code = 1814) proteins detected. Polyclonal distribution of immunoglobulins. [id number]-681 Angely Santos ([facility]) (test code = (electronic 6173) signature) PROTEIN ELECTROPHORESIS, [id number] 16:21:00 Test Item Value Reference Range Interpretation Comments ALBUMIN FRACTION 3.3 g/dL 3.5-5.5 L (AKER) (test code = 405) ALPHA 1 FRACTION 0.3 g/dL 0.2-0.4 (BEAKER) (test code = 389) ALPHA 2 FRACTION 1.0 g/dL 0.5-0.9 H (BEAKER) (test code = 390) BETA FRACTION 1.0 g/dL 0.6-1.1 (BEAKER) (test code = 392) GAMMA GLOBULIN 0.8 g/dL 0.7-1.7 FRACTION (BEAKER) (test code = 391) INTERPRETATION-119 All fractions present in ([facility]) (test code = expected distribution. 2615) No monoclonal bands detected. No significant change from previous study performed 12-13-17. [id number]-[id number]-202 Angely Santos MD ([facility]) (test code = (electronic signature) 2842) PROTEIN TOTAL SERUM, 6.4 gm/dL 6.0-8.3 SPEP ([facility]) (test code = 9422) TSH/FREE T4 IF [id number] 09:28:00 Test Item Value Reference Range Interpretation Comments THYROID STIMULATING HORMONE 3.29 uIU/mL 0.35-4.94 ([facility]) (test code = 772) B-TYPE NATRIURETIC FACTOR (BNP)2018-03-15 09:11:00 Test Item Value Reference Range Interpretation Comments B-TYPE NATRIURETIC PEPTIDE (AKER) 641 pg/mL 0-100 H (test code = 700) LIPID [id number] 09:05:00 Test Item Value Reference Range Interpretation Comments TRIGLYCERIDES (BEAKER) (test code = 117 mg/dL 540) CHOLESTEROL (BEAKER) (test code = 136 mg/dL 631) HDL CHOLESTEROL (BEAKER) (test code 41 mg/dL = 976) LDL CHOLESTEROL CALCULATED (AKER) 72 mg/dL (test code = 633) Triglyceride Reference Range: Low Risk <150 Borderline 150-199 High Risk 200- 499 Very High Risk >=500Cholesterol Reference Range: Low Risk <200 Borderline 200-239 High Risk >240HDL Cholesterol Reference Range: Low Risk >=60 High Risk <40LDL Cholesterol Reference Range: Optimal <100 Near Optimal 100-129 Borderline 130-159 High 160-189 Very High >=190BASIC METABOLIC [id number] 09:05:00 Test Item Value Reference Range Interpretation [...] APPLICABLE FOR DIALYSIS PATIEN TS. HEPATIC FUNCTION [id number] 09:05:00 Test Item Value Reference Range Interpretation [...] 6-55 347) CBC W/PLT COUNT & AUTO [id number] 09:02:00 Test Item Value Reference Range Interpretation [...] PERCENT (BEAKER) (test code = 2801) HEMOGLOBIN [id number] 12:30:00 Test Item Value Reference Range Interpretation Comments HEMOGLOBIN A1C (BEAKER) (test code = 6.3 % 4.3-6.1 H 368) ALKALINE [id number] 10:37:00 Test Item Value Reference Range Interpretation Comments ALKALINE PHOSPHATASE (BEAKER) (test 43 U/L 40-150 code = 346) [id number] 10:37:00 Test Item Value Reference Range Interpretation Comments POTASSIUM (BEAKER) (test code = 5.6 meq/L 3.5-5.1 H 379) [id number] 10:37:00 Test Item Value Reference Range Interpretation Comments MAGNESIUM (BEAKER) (test code = 1.9 mg/dL 1.6-2.6 627) [id number] 10:37:00 Test Item Value Reference Range Interpretation Comments SODIUM (BEAKER) (test code = 381) 137 meq/L 136-145 AST (SGOT)2017-12-21 10:37:00 Test Item Value Reference Range Interpretation Comments AST (SGOT) (BEAKER) (test code = 353) 24 U/L 5-34 ALT (SGPT)2017-12-21 10:37:00 Test Item Value Reference Range Interpretation Comments ALT (SGPT) (BEAKER) (test code = 347) 23 U/L 6-55 BILIRUBIN, ADULT [id number] 10:37:00 Test Item Value Reference Range Interpretation Comments BILIRUBIN TOTAL (BEAKER) (test code 0.3 mg/dL 0.2-1.2 = 377) BILIRUBIN, [id number] 10:37:00 Test Item Value Reference Range Interpretation Comments BILIRUBIN DIRECT (BEAKER) (test 0.2 mg/dL 0.1-0.5 code = 706) [id number] 10:37:00 Test Item Value Reference Range Interpretation Comments CHLORIDE (BEAKER) (test code = 382) 102 meq/L 98-107 CREATINE KINASE (CK)2017-12-21 10:37:00 Test Item Value Reference Range Interpretation Comments CREATINE KINASE TOTAL (BEAKER) (test 166 U/L 29-200 code = 380) LACTATE DEHYDROGENASE (LDH)2017-12-21 10:37:00 Test Item Value Reference Range Interpretation Comments LACTATE DEHYDROGENASE (BEAKER) (test 223 U/L 125-220 H code = 635) BUN AND [id number] 10:37:00 Test Item Value Reference Range Interpretation [...] 1814) proteins detected. Polyclonal distribution of immunoglobulins. [id number] Angely Santos, (BEAKER) (test code = (electronic 7839) signature) PROTEIN ELECTROPHORESIS, [id number] 15:31:00 Test Item Value Reference Range Interpretation [...] present (BEAKER) (test code = in expected 2611) distribution. No monoclonal bands detected. [id number]-635 Angely Santos MD (BEAKER) (test code = (electronic signature) 2405) PROTEIN TOTAL SERUM, 6.4 gm/dL 6.0-8.3 SPEP (BEAKER) (test code = 7520) [id number] 15:30:00 Test Item Value Reference Range Interpretation Comments POTASSIUM (BEAKER) (test code = 5.4 meq/L 3.5-5.1 H 379) TSH/FREE T4 IF [id number] 12:17:00 Test Item Value Reference Range Interpretation Comments THYROID STIMULATING HORMONE 3.18 uIU/mL 0.35-4.94 (BEAKER) (test code = 772) BASIC METABOLIC [id number] 12:02:00 Test Item Value Reference Range Interpretation [...] = 700) CBC W/PLT COUNT & AUTO [id number] 11:36:00 Test Item Value Reference Range Interpretation [...] PERCENT (BEAKER) (test code = 2801) HEMOGLOBIN [id number] 12:52:00 Test Item Value Reference Range Interpretation Comments HEMOGLOBIN A1C (BEAKER) (test code = 7.9 % 4.3-6.1 H 368) TSH/FREE T4 IF [id number] 12:22:00 Test Item Value Reference Range Interpretation Comments THYROID STIMULATING HORMONE 2.15 uIU/mL 0.35-4.94 (BEAKER) (test code = 772) B-TYPE NATRIURETIC FACTOR (BNP)2017-09-06 11:57:00 Test Item Value Reference Range Interpretation Comments B-TYPE NATRIURETIC PEPTIDE (BEAKER) 364 pg/mL 0-100 H (test code = 700) URIC [id number] 11:55:00 Test Item Value Reference Range Interpretation Comments URIC ACID (BEAKER) (test code = 6.6 mg/dL 2.6-7.2 773) [id number] 11:55:00 Test Item Value Reference Range Interpretation Comments MAGNESIUM (BEAKER) (test code = 1.6 mg/dL 1.6-2.6 627) BASIC METABOLIC [id number] 11:55:00 Test Item Value Reference Range Interpretation [...] NOT APPLICABLE FOR DIALYSIS PATIEN TS. LIPID [id number] 11:55:00 Test Item Value Reference Range Interpretation [...] 130-159 High 160-189 Very High >=190HEPATIC FUNCTION [id number] 11:55:00 Test Item Value Reference Range Interpretation [...] (test code = 13 U/L 6-55 347) [id number] 11:51:00 Test Item Value Reference Range Interpretation Comments PREALBUMIN (BEAKER) (test code = 29 mg/dL 14-45 586) PROTHROMBIN [id number] 11:41:00 Test Item Value Reference Range Interpretation [...] mechanical heart valves.CBC W/PLT COUNT & AUTO [id number] 11:33:00 Test Item Value Reference Range Interpretation [...] (test code = 2801) RAD, BONE DENSITY [id number] 09:58:00Reason for exam:->heart transplant evaluation. screening for osteoporosisShould this be performedat the bedside?->NoFINAL REPORT Technique: Bone mineral density of the lumbar spine and both femoral necks performed on 08/16/2017 Clinical History: Osteopenia screening. Comparison: None Bone mineral density measurementLumbar spine1.382 gm/ad2Dozl Femoral neck1.157 gm/zt1Fbvnz Femoral neck1.120 gm/cm2 Standard deviation from young [...] 09:58:30 Reading Location: [facility] [address] Radiology Reading Room [id number] 12:15:00 Test Item Value Reference Range Interpretation Comments MAGNESIUM (BEAKER) (test code = 1.2 mg/dL 1.6-2.6 L 627) BASIC METABOLIC [id number] 12:15:00 Test Item Value Reference Range Interpretation [...] = 700) FLOW PRA CLASS I AND [id number] 11:17:00 Test Item Value Reference Range Interpretation Comments DATE OF SERUM (BEAKER) 682218 (test code = 2289) SERUM # (BEAKER) (test 292636 code = 2290) FLOW PRA CLASS I AND II See Scanned Report (test code = 2421) HLA [id number] 07:15:00 Test Item Value Reference Range Interpretation [...] 2514) HLA-DQ AG2 (BEAKER) (test code = 6146) HLA-DRW (BEAKER) (test code = 9737) HERPES VIRUS ANTIBODY, [id number] 14:18:00 Test Item Value Reference Range Interpretation Comments HERPES VIRUS IGM Negative HSV 1 IGM = NEGHSV 2 (BEAKER) (test code = IGM = NEG 1808) TOXOPLASMA GONDII ANTIBODY, [id number] 14:18:00 Test Item Value Reference Range Interpretation Comments TOXOPLASMA IGM ANTIBODY (BEAKER) Negative (test code = 742) PROTEIN ELECTROPHORESIS, [id number] 09:23:00 Test Item Value Reference Range Interpretation [...] all clinical and laboratory data available. [facility] Test perform ed T-119 (BEAKER) and interpret ed (test code = by [facility] 2334) [place] Labs. PROTEIN TOTAL 6.7 gm/dL 6.0-8.5 RR: 6.1-8.1 g/ dL SERUM, SPEP (BEAKER) (test code = 2660) URINE PROTEIN ELECTROPHORESIS, [id number] 08:49:00 Test Item Value Reference Range Interpretation Comments PROTEIN, URINE 12 mg/dL 0-14 (BEAKER) (test code = 1569) ALBUMIN URINE ELP 33.0 % (BEAKER) (test code = 1018) GAMMA GLOBULIN 67.0 % URINE (BEAKER) (test code = 1015) UPEP, ID-438 Pattern consistent (BEAKER) (test with mixed code = 5102) glomerular and tubular proteinuria. [facility]- Test perfo rmed and 438 (BEAKER) interpreted by (test code = Harley Norwood 260) [place] L abs. POCT-GLUCOSE [id number] 17:07:00 Test Item Value Reference Range Interpretation Comments POC-GLUCOSE METER 283 mg/dL 70-110 H TESTED AT [facility] 67 (BEAKER) (test code = [facility] 1538) [address] POCT-GLUCOSE [id number] 12:48:00 Test Item Value Reference Range Interpretation Comments POC-GLUCOSE METER 148 mg/dL 70-110 H TESTED AT [place] [address] (BEAKER) (test code = [facility] 1538) [address] POCT-GLUCOSE [id number] 07:37:00 Test Item Value Reference Range Interpretation Comments POC-GLUCOSE METER 154 mg/dL 70-110 H TESTED AT [place] [address] (BEAKER) (test code = [facility] 1538) [address] [id number] 07:11:00 Test Item Value Reference Range Interpretation Comments MAGNESIUM (BEAKER) (test code = 1.5 mg/dL 1.6-2.6 L 627) BASIC METABOLIC [id number] 07:11:00 Test Item Value Reference Range Interpretation [...] 0-0 (BEAKER) (test code = 413) POCT-GLUCOSE [id number] 21:29:00 Test Item Value Reference Range Interpretation Comments POC-GLUCOSE METER 142 mg/dL 70-110 H TESTED AT [place] [address] ([facility]) (test code = DOUGLAS Peña [place] 1538) [address] POCT-GLUCOSE [id number] 17:29:00 Test Item Value Reference Range Interpretation Comments POC-GLUCOSE METER 258 mg/dL 70-110 H TESTED AT [facility] 6720 ([facility]) (test code = DOUGLAS Peña [place] 1538) [address] TOXOPLASMA GONDII ANTIBODY, [id number] 15:37:00 Test Item Value Reference Range Interpretation Comments TOXOPLASMA GONDII IGG (BEAKER) (test Negative code = 419) POCT-GLUCOSE [id number] 11:56:00 Test Item Value Reference Range Interpretation Comments POC-GLUCOSE METER 190 mg/dL 70-110 H TESTED AT [facility] 6720 ([facility]) (test code = [place] 1538) [address] CREATININE [id number] 09:09:00 Test Item Value Reference Range Interpretation Comments CREATININE CLEARANCE 56.5 mL/min 70.0-140.0 L (BEAKER) (test code = 357) VOLUME, TOTAL (BEAKER) 2500 ml (test code = 1457) CREATININE URINE 46.2 mg/dL (BEAKER) (test code = 375) [id number] [facility]ely [facility] MD [facility] (test code = (electronic signature) 3212) POCT-GLUCOSE [id number] 07:57:00 Test Item Value Reference Range Interpretation Comments POC-GLUCOSE METER 165 mg/dL 70-110 H TESTED AT [facility] 6720 ([facility]) (test code = [place] 1538) [address] CBC (HEMOGRAM ONLY)2017-07-19 07:06:00 Test Item Value [...] WBC 0-0 (BEAKER) (test code = 413) [id number] 04:55:00 Test Item Value Reference Range Interpretation Comments MAGNESIUM (BEAKER) (test code = 1.6 mg/dL 1.6-2.6 627) BASIC METABOLIC [id number] 04:55:00 Test Item Value Reference Range Interpretation [...] NOT APPLICABLE FOR DIALYSIS PATIEN TS. POCT-GLUCOSE [id number] 21:35:00 Test Item Value Reference Range Interpretation Comments POC-GLUCOSE METER 138 mg/dL 70-110 H TESTED AT [facility] 67 ([facility]) (test code = [facility] 1538) [address] POCT-GLUCOSE [id number] 17:20:00 Test Item Value Reference Range Interpretation Comments POC-GLUCOSE METER 108 mg/dL 70-110 TESTED AT [facility] 6720 ([facility]) (test code = [facility] 1538) [address] VARICELLA ZOSTER ANTIBODY, [id number] 15:46:00 Test Item Value Reference Range Interpretation Comments VARICELLA ZOSTER IGG (AL) (BEAKER) > Al (test code = 3197) VARICELLA ZOSTER RESULT INTERPRETATIONS: <=0.8 Al Nonreactive: Presumed non- immune to VZV 0.9-1.0Al Equivocal >=1.1 Al Reactive: Presumed immune to VZV HERPES VIRUS ANTIBODY, [id number] 15:45:00 Test Item Value Reference Range Interpretation Comments HERPES VIRUS IGG Negative HSV 1 IGG = NEGHSV 2 ([facility]) (test code = IGG = NEG 1807) CYTOMEGALOVIRUS ANTIBODY, [id number] 15:45:00 Test Item Value Reference Range Interpretation Comments CYTOMEGALOVIRUS IGG ANTIBODY Positive (BEAKER) (test code = 790) CYTOMEGALOVIRUS ANTIBODY, [id number] 15:45:00 Test Item Value Reference Range Interpretation Comments CYTOMEGALOVIRUS IGM ANTIBODY Negative ([facility]) (test code = 816) EBV-VCA ANTIBODY, [id number] 15:45:00 Test Item Value Reference Range Interpretation Comments SARY-NGUYEN VCA IGG (BEAKER) (test Positive code = 983) EBV-VCA ANTIBODY, [id number] 15:45:00 Test Item Value Reference Range Interpretation Comments SARY-NGUYEN VCA IGM ([facility]) (test Negative code = 984) ANTI-NUCLEAR ANTIBODY (JOCELYNN)2017-07-18 11:50:00 Test Item Value Reference Range Interpretation Comments ANTI-NUCLEAR ANTIBODY (JOCELYNN) ([facility]) Negative Negative (test code = 418) POCT-GLUCOSE [id number] 11:47:00 Test Item Value Reference Range Interpretation Comments POC-GLUCOSE METER 179 mg/dL 70-110 H TESTED AT [place] [address] ([facility]) (test code = DOUGLAS Peña [facility] 1538) [address] [id number] 10:39:00 Test Item Value Reference Range Interpretation Comments RPR SCREEN ([facility]) (test code = Nonreactive Nonreactive 420) POCT-GLUCOSE [id number] 07:35:00 Test Item Value Reference Range Interpretation Comments POC-GLUCOSE METER 167 mg/dL 70-110 H TESTED AT [place] [address] ([facility]) (test code = DOUGLAS Peña [facility] 1538) [address] [id number] 07:35:00 Test Item Value Reference Range Interpretation Comments [facility]PHORUS [facility] (test code = 2.9 mg/dL 2.3-4.7 604) [id number] 07:35:00 Test Item Value Reference Range Interpretation Comments MAGNESIUM (BEAKER) (test code = 1.8 mg/dL 1.6-2.6 627) BASIC METABOLIC [id number] 07:35:00 Test Item Value Reference Range Interpretation [...] NOT APPLICABLE FOR DIALYSIS PATIEN TS. PTH, [id number] 07:24:00 Test Item Value Reference Range Interpretation [...] code = 413) HEPATITIS B CORE ANTIBODY, [id number] 22:00:00 Test Item Value Reference Range Interpretation Comments HEPATITIS B CORE TOTAL ANTIBODY Nonreactive Nonreactive (BEAKER) (test code = 497) HEPATITIS PANEL, [id number] 22:00:00 Test Item Value Reference Range Interpretation Comments HEPATITIS A IGM ANTIBODY (BEAKER) Nonreactive Nonreactive (test code = 498) HEPATITIS B CORE IGM ANTIBODY Nonreactive Nonreactive (BEAKER) (test code = 645) HEPATITIS C ANTIBODY (BEAKER) Nonreactive Nonreactive (test code = 367) HEPATITIS B SURFACE ANTIGEN (2) Nonreactive Nonreactive (BEAKER) (test code = 2585) HIV-1 ANTIGEN WITH HIV-1/2 [id number] 22:00:00 Test Item Value Reference Range Interpretation Comments HIV-1 ANTIGEN WITH HIV 1\\T\\2 Nonreactive Nonreactive ANTIBODY (2) (BEAKER) (test code = 2586) HEPATITIS A ANTIBODY, [id number] 22:00:00 Test Item Value Reference Range Interpretation Comments HEPATITIS A IGG ANTIBODY (BEAKER) Nonreactive Nonreactive (test code = 2797) CREATININE, RANDOM [id number] 21:37:00 Test Item Value Reference Range Interpretation Comments CREATININE URINE (BEAKER) (test 150.2 mg/dL code = 375) Reference Range: No NormalsPROTEIN, RANDOM [id number] 21:37:00 Test Item Value Reference Range Interpretation Comments PROTEIN, URINE (BEAKER) (test code = 12 mg/dL 0-14 1569) [id number] 21:15:00 Test Item Value Reference Range Interpretation Comments PROSTATE SPECIFIC ANTIGEN (BEAKER) 1.0 ng/mL 0.0-4.0 (test code = 844) POCT-GLUCOSE [id number] 20:53:00 Test Item Value Reference Range Interpretation Comments POC-GLUCOSE METER 182 mg/dL 70-110 H TESTED AT [facility] 6720 (BEAKER) (test code = [place] 1538) [address] T4, [id number] 20:33:00 Test Item Value Reference Range Interpretation Comments FREE T4 (BEAKER) (test code = 655) 1.27 ng/dL 0.70-1.48 [id number] 20:33:00 Test Item Value Reference Range Interpretation Comments FERRITIN (BEAKER) (test code = 361) 75 ng/mL 5-275 VITAMIN D, [id number] 20:32:00 Test Item Value Reference Range Interpretation Comments VITAMIN D 25-OH (BEAKER) (test 24.7 ng/mL 6.6-49.9 code = 2764) Effective 06/27/2017: Reference Range ChangeNew: 6.6-49.9 ng/mL Previous: 13.0- 47.8 ng/mLRecommendedVitamin D Target Range: 30.0-40.0 ng/mLTRANSFERRIN 2017-07-17 20:20:00 Test Item Value Reference Range Interpretation Comments TRANSFERRIN (BEAKER) (test code = 418 mg/dL 174-382 H 541) [id number] 20:17:00 Test Item Value Reference Range Interpretation Comments PREALBUMIN (BEAKER) (test code = 27 mg/dL 14-45 586) IRON, [id number] 20:17:00 Test Item Value Reference Range Interpretation Comments IRON (BEAKER) (test code = 547) 102 ug/dL 40-160 URIC [id number] 20:16:00 Test Item Value Reference Range Interpretation Comments URIC ACID (BEAKER) (test code = 8.3 mg/dL 2.6-7.2 H 773) [id number] 20:16:00 Test Item Value Reference Range Interpretation Comments PHOSPHORUS (BEAKER) (test code = 3.5 mg/dL 2.3-4.7 604) HEPATIC FUNCTION [id number] 20:16:00 Test Item Value Reference Range Interpretation [...] (test code = 17 U/L 6-55 347) [id number] 20:16:00 Test Item Value Reference Range Interpretation Comments AMYLASE (BEAKER) (test code = 349) 72 U/L 25-125 [id number] 20:16:00 Test Item Value Reference Range Interpretation [...] 222 U/L 125-220 H code = 635) [id number] 20:16:00 Test Item Value Reference Range Interpretation Comments LIPASE (BEAKER) (test code = 749) 43 U/L 8-78 RETICULOCYTE [id number] 19:56:00 Test Item Value Reference Range Interpretation Comments RETICULOCYTE COUNT PCT (BEAKER) (test 1.6 % 0.5-1.8 code = 575) CT, CHEST, WITHOUT [id number] 18:13:00FINAL REPORT CT of the Chest and [...] Garrett Verified Date/Time: 07/17/2017 18:13:06 Reading Location: [facility] CARE C013Y CT Body Reading Room CT, ABDOMEN, WITHOUT [id number] 18:13:00FINAL REPORT CT of the Chest and [...] MDReport Verified Date/Time: 07/17/2017 18:13:06 Reading Location: [address] Body Reading Room CT, BRAIN, WITHOUT [id number] 17:55:00FINAL REPORT CT Head without contrast CLINICAL [...] chronic right cerebellar infarct. Signed: Keo Simons MDReport Verified Date/Time: 07/17/2017 17:55:05 Reading Location: [facility] [place] [facility] Reading Room POCT-GLUCOSE [id number] 14:27:00 Test Item Value Reference Range Interpretation Comments POC-GLUCOSE METER 121 mg/dL 70-110 H TESTED AT [facility] 6720 [facility] (test code = [facility] 1538) [id number] POCT-GLUCOSE [id number] 07:28:00 Test Item Value Reference Range Interpretation Comments POC-GLUCOSE METER 158 mg/dL 70-110 H TESTED AT [place] [address] ([facility] (test code = [facility] 1538) [id number] 04:57:00 Test Item Value Reference Range Interpretation Comments MAGNESIUM (BEAKER) (test code = 1.6 mg/dL 1.6-2.6 627) BASIC METABOLIC [id number] 04:57:00 Test Item Value Reference Range Interpretation [...] 0-0 (BEAKER) (test code = 413) POCT-GLUCOSE [id number] 21:00:00 Test Item Value Reference Range Interpretation Comments POC-GLUCOSE METER 160 mg/dL 70-110 H TESTED AT [facility] 6720 ([facility]) (test code = [place] 1538) [id number] POCT-GLUCOSE [id number] 17:10:00 Test Item Value Reference Range Interpretation Comments POC-GLUCOSE METER 148 mg/dL 70-110 H TESTED AT [facility] 6720 (BEAKER) (test code = DOUGLAS Peña [facility] 1538) 26823 POCT-GLUCOSE [id number] 12:10:00 Test Item Value Reference Range Interpretation Comments POC-GLUCOSE METER 246 mg/dL 70-110 H TESTED AT [facility] 6720 (BEAKER) (test code = [facility] Melissa [facility] 1538) [id number] POCT-GLUCOSE [id number] 08:32:00 Test Item Value Reference Range Interpretation Comments POC-GLUCOSE METER 186 mg/dL 70-110 H TESTED AT [facility] 6720 (BEAKER) (test code = [facility] 1538) [id number] 06:35:00 Test Item Value Reference Range Interpretation Comments MAGNESIUM (BEAKER) (test code = 1.7 mg/dL 1.6-2.6 627) BASIC METABOLIC [id number] 06:35:00 Test Item Value Reference Range Interpretation [...] 0-0 (AKER) (test code = 413) POCT-GLUCOSE [id number] 20:53:00 Test Item Value Reference Range Interpretation Comments POC-GLUCOSE METER 228 mg/dL 70-110 H TESTED AT [place] [address] ([facility]) (test code = [place] 1538) [id number] POCT-GLUCOSE [id number] 17:06:00 Test Item Value Reference Range Interpretation Comments POC-GLUCOSE METER 194 mg/dL 70-110 H TESTED AT [place] [address] ([facility]) (test code = [place] 1538) [id number] POCT-GLUCOSE [id number] 13:27:00 Test Item Value Reference Range Interpretation Comments POC-GLUCOSE METER 272 mg/dL 70-110 H TESTED AT [place] [address] ([facility]) (test code = [place] 1538) [id number] POCT-GLUCOSE [id number] 09:14:00 Test Item Value Reference Range Interpretation Comments POC-GLUCOSE METER 172 mg/dL 70-110 H TESTED AT [place] [address] ([facility]) (test code = [place] 1538) [address] [id number] 07:37:00 Test Item Value Reference Range Interpretation Comments MAGNESIUM (BEAKER) (test code = 2.2 mg/dL 1.6-2.6 627) BASIC METABOLIC [id number] 07:37:00 Test Item Value Reference Range Interpretation [...] 0-0 (AKER) (test code = 413) POCT-GLUCOSE [id number] 21:21:00 Test Item Value Reference Range Interpretation Comments POC-GLUCOSE METER 315 mg/dL 70-110 H TESTED AT [place] [address] ([facility]) (test code = [facility] 1538) [id number] POCT-GLUCOSE [id number] 17:03:00 Test Item Value Reference Range Interpretation Comments POC-GLUCOSE METER 171 mg/dL 70-110 H TESTED AT [place] [address] ([facility]) (test code = [facility] 1538) [id number] POCT-GLUCOSE [id number] 12:23:00 Test Item Value Reference Range Interpretation Comments POC-GLUCOSE METER 204 mg/dL 70-110 H TESTED AT [place] [address] ([facility]) (test code = [facility] 1538) [id number] POCT-GLUCOSE [id number] 08:21:00 Test Item Value Reference Range Interpretation Comments POC-GLUCOSE METER 141 mg/dL 70-110 H TESTED AT [place] [address] ([facility]) (test code = [facility] 1538) [address]86 CBC (HEMOGRAM ONLY)2017-07-14 06:15:00 Test Item Value [...] WBC 0-0 (BEAKER) (test code = 413) [id number] 03:28:00 Test Item Value Reference Range Interpretation Comments MAGNESIUM (BEAKER) (test code = 1.5 mg/dL 1.6-2.6 L 627) LIPID [id number] 03:28:00 Test Item Value Reference Range Interpretation [...] 130-159 High 160-189 Very High >=190BASIC METABOLIC [id number] 03:28:00 Test Item Value Reference Range Interpretation [...] I S NOT APPLICABLE FOR DIALYSIS PATIEN [id number] 02:36:00 Test Item Value Reference Range Interpretation Comments PARTIAL THROMBOPLASTIN TIME 25.9 seconds 22.5-36.0 (BEAKER) (test code = 760) POCT-GLUCOSE [id number] 22:55:00 Test Item Value Reference Range Interpretation Comments POC-GLUCOSE METER 206 mg/dL 70-110 H TESTED AT [facility] 6720 ([facility]) (test code = DOU[place]AS Peña [place] 1538) [address] [id number] 18:22:00 Test Item Value Reference Range Interpretation Comments PARTIAL THROMBOPLASTIN TIME 41.6 seconds 22.5-36.0 H (BEAKER) (test code = 760) CREATINE KINASE (CK), TOTAL AND [id number] 12:57:00 Test Item Value Reference Range Interpretation Comments CREATINE KINASE TOTAL (BEAKER) 142 U/L 29-200 (test code = 380) CREATINE KINASE-MB (BEAKER) (test 5.3 ng/mL 0.0-6.6 code = 750) CREATINE KINASE-MB INDEX (BEAKER) 3.7 % (test code = 395) CK-MB Reference Range:<6.7 Normal6.7-10.0 Borderline>10.0 AbnormalTROPONIN [id number] 12:55:00 Test Item Value Reference Range Interpretation [...] acidosis, acute neurological disease, and persistent tachyarrhythmia.POCT-GLUCOSE [id number] 11:57:00 Test Item Value Reference Range Interpretation Comments POC-GLUCOSE METER 105 mg/dL 70-110 TESTED AT [facility] 6720 (JOLEEN) (test code = [place] 1538) [address] HEMOGLOBIN [id number] 10:45:00 Test Item Value Reference Range Interpretation Comments HEMOGLOBIN A1C (JOLEEN) (test code = 7.1 % 4.3-6.1 H 368) TSH/FREE T4 IF [id number] 09:41:00 Test Item Value Reference Range Interpretation Comments THYROID STIMULATING HORMONE 1.16 uIU/mL 0.35-4.94 (JOLEEN) (test code = 772) U/S, RENAL, [id number] 09:15:00Reason for exam:->AKIFINAL REPORT Ultrasound of the [...] ultrasound of the bilateral kidneys. Signed: Andrés Schwarz Verified Date/Time: 07/13/2017 09:15:34 Reading Location: [address] Ultrasound Reading Room APTT 2017-07-13 08:56:00 Test Item Value Reference Range Interpretation Comments PARTIAL THROMBOPLASTIN TIME 27.7 seconds 22.5-36.0 (JOLEEN) (test code = 760) Prior to initiating heparinPLATELET [id number] 08:51:00 Test Item Value Reference Range Interpretation Comments PLATELET COUNT (JOLEEN) (test 183 K/CU MM 150-450 code = 756) URINALYSIS W/ [id number] 08:45:00 Test Item Value Reference Range Interpretation [...] code = 516) SOURCE(BEAKER) (test code = 5412) POCT-GLUCOSE [id number] 07:58:00 Test Item Value Reference Range Interpretation Comments POC-GLUCOSE METER 186 mg/dL 70-110 H TESTED AT [facility] 6720 (BEAKER) (test code = [place] 1538) [address] RAPID DRUG SCREEN, [id number] 07:31:00 Test Item Value Reference Range Interpretation [...] situations. Chain of custody not maintained. Some zpts-zvr-qndwcpy medications, as well as adulterants, may cause inaccurate results. Clinical correlation should be applied. A more comprehensive drug screen or confirmation of a detected drug may be performed upon request. CREATININE, RANDOM [id number] 07:25:00 Test Item Value Reference Range Interpretation Comments CREATININE URINE (BEAKER) (test 39.7 mg/dL code = 375) Reference Range: No NormalsSODIUM, RANDOM [id number] 07:25:00 Test Item Value Reference Range Interpretation Comments SODIUM URINE (BEAKER) (test code = 95 meq/L 243) Reference Range: No NormalsCREATINE KINASE (CK), TOTAL AND [id number] 07:05:00 Test Item Value Reference Range Interpretation Comments CREATINE KINASE TOTAL (BEAKER) 101 U/L 29-200 (test code = 380) CREATINE KINASE-MB (BEAKER) (test 3.8 ng/mL 0.0-6.6 code = 750) CREATINE KINASE-MB INDEX (BEAKER) 3.8 % (test code = 395) CK-MB Reference Range:<6.7 Normal6.7-10.0 Borderline>10.0 AbnormalTROPONIN [id number] 07:05:00 Test Item Value Reference Range Interpretation [...] and persistent tachyarrhythmia.RAD, CHEST, 1 VIEW, NON [id number] 01:09:00Reason for exam:->SHORTNESS OF BREATHShould this be [...] available for dictation secondary to technical issues ([facility] downtime). Signed: Whitney Burger MDReport Verified Date/Time: 07/13/2017 01:09:11 Reading Location: [address] Reading Room CREATINE KINASE (CK), TOTAL AND [id number] 00:42:00 Test Item Value Reference Range Interpretation Comments CREATINE KINASE TOTAL (BEAKER) 66 U/L 29-200 (test code = 380) CREATINE KINASE-MB (BEAKER) (test 2.1 ng/mL 0.0-6.6 code = 750) CREATINE KINASE-MB INDEX (BEAKER) 3.2 % (test code = 395) CK-MB Reference Range:<6.7 Normal6.7-10.0 Borderline>10.0 AbnormalTROPONIN [id number] 00:42:00 Test Item Value Reference Range Interpretation [...] acute neurological disease, and persistent tachyarrhythmia.BASIC METABOLIC [id number] 00:40:00 Test Item Value Reference Range Interpretation [...] = 700) CBC W/PLT COUNT & AUTO [id number] 00:16:00 Test Item Value Reference Range Interpretation [...] % 0-1 PERCENT (BEAKER) (test code = 9640)
--- NOTE | 2023-01-10 04:32 | EDPHYS ---
Physician Documentation [facility] Name: Han Hyde Age: 72 yrs Sex: Male : 1950 Arrival Date: 01/10/2023 Time: 04:00 Bed 3 Private MD: ED Physician Giovani Guzman HPI: 01/10 06:08 This 72 yrs old Male presents to ER via EMS with unknown complaint. kdr 06:08 This 72 yrs old Male presents to ER via EMS with complaints of Shortness of breath. kdr 06:08 Patient presents via EMS complaining of shortness of breath. Shortness of breath kdr started yesterday. Patient had been recently discharged from [facility] in [place] 2 days ago. Patient noted that his saturations today were in the 80s to low 90s on 5 L by nasal cannula. Patient is also noted to be on hospice but is not a DNR. Patient is on a continuous milrinone drip for his cardiac support. This happened to be disconnected during transport from home to the ED. On arrival the patient appears acutely ill and is working hard to breathe. He was diaphoretic. Patient was quickly put on BiPAP to support his respiratory effort.. Onset: The symptoms/episode began/occurred gradually, 2 day(s) ago. Severity of symptoms: At their worst the symptoms were mild in the emergency department the symptoms are unchanged. The patient has not experienced similar symptoms in the past. [facility] admission and discharge. Historical: - Allergies: 04:06 Demerol; kd3 04:06 Lisinopril; kd3 04:06 Xarelto; kd3 - PMHx: 04:06 diabetes mellitus; Hypertensive disorder; kd3 - PSHx: 04:06 heart stent; pacemaker right side; R shoulder replacement; triple bypass; kd3 - Immunization history:: Adult Immunizations up to date. - Social history:: Smoking status: unknown. ROS: 06:08 Constitutional: Negative for fever, chills, and weight loss, Eyes: Negative for injury, kdr pain, redness, and discharge, Neck: Negative for injury, pain, and swelling, Cardiovascular: Negative for chest pain, palpitations, and edema, Abdomen/GI: Negative for abdominal pain, nausea, vomiting, diarrhea, and constipation, Back: Negative for injury and pain, : Negative for injury, bleeding, discharge, and swelling, MS/Extremity: Negative for injury and deformity, Skin: Negative for injury, rash, and discoloration, Neuro: Negative for headache, weakness, numbness, tingling, and seizure activity. Psych: Negative for depression, anxiety, suicide ideation, homicidal ideation, and hallucinations, Allergy/Immunology: Negative for hives, rash, and allergies, Endocrine: Negative for neck swelling, polydipsia, polyuria, polyphagia, and marked weight changes, Hematologic/Lymphatic: Negative for swollen nodes, abnormal bleeding, and unusual bruising. 06:08 Respiratory: Positive for dyspnea on exertion, shortness of breath, at rest. Negative for cough, hemoptysis, pleurisy, sputum production, wheezing. Exam: 06:08 Constitutional: This is a well developed, well nourished patient who is awake, alert, kdr and in no acute distress. Head/Face: Normocephalic, atraumatic. Eyes: Pupils equal round and reactive to light, extra-ocular motions intact. Lids and lashes normal. Conjunctiva and sclera are non-icteric and not injected. Cornea within normal limits. Periorbital areas with no swelling, redness, or edema. Neck: Trachea midline, no thyromegaly or masses palpated, and no cervical lymphadenopathy. Supple, full range of motion without nuchal rigidity, or vertebral point tenderness. No Meningismus. Chest/axilla: Normal chest wall appearance and motion. Nontender with no deformity. No lesions are appreciated. Cardiovascular: Regular rate and rhythm with a normal S1 and S2. No gallops, murmurs, or rubs. Normal PMI, no JVD. No pulse deficits. Respiratory: Lungs have equal breath sounds bilaterally, clear to auscultation and percussion. No rales, rhonchi or wheezes noted. No increased work of breathing, no retractions or nasal flaring. Abdomen/GI: Soft, non-tender, with normal bowel sounds. No distension or tympany. No guarding or rebound. No evidence of tenderness throughout. Back: No spinal tenderness. No costovertebral tenderness. Full range of motion. Skin: Warm, dry with normal turgor. Normal color with no rashes, no lesions, and no evidence of cellulitis. MS/ Extremity: Pulses equal, no cyanosis. Neurovascular intact. Full, normal range of motion. Neuro: Awake and alert, GCS 15, oriented to person, place, time, and situation. Cranial nerves II-XII grossly intact. Motor strength 5/5 in all extremities. Sensory grossly intact. Cerebellar exam normal. Normal gait. Psych: Awake, alert, with orientation to person, place and time. Behavior, mood, and affect are within normal limits. Vital Signs: 04:03 Weight 70.31 kg; Height 5 ft. 5 in. ; kd3 04:08 BP 93 / 81; Pulse 71; Resp 28; Pulse Ox 100% on 15 lpm Non-rebreather mask; lg3 04:10 Temp 98.2(TE); kd3 05:08 BP 102 / 55; Pulse 76; Resp 25; Pulse Ox 97% on BiPAP; aa9 04:03 Body Mass Index 25.79 (70.31 kg, 165.1 cm) kd3 MDM: 04:31 Patient medically screened. kdr 06:08 Data reviewed: vital signs, nurses notes, lab test result(s), radiologic studies. [facility] 01/10 04:12 Order name: Basic Metabolic Panel; Complete Time: 05:42 [facility] 01/10 04:12 Order name: CBC with Diff [facility] 01/10 04:12 Order name: LFT's; Complete Time: 05:42 [facility] 01/10 04:12 Order name: NT PRO-BNP; Complete Time: 05:42 [facility] 01/10 04:12 Order name: PT-INR; Complete Time: 05:42 [facility] 01/10 04:12 Order name: Troponin HS; Complete Time: 05:42 [facility] 01/10 04:12 Order name: ABG; Complete Time: 05:42 [facility] 01/10 04:20 Order name: SARS-COV-2 RT PCR; Complete Time: 05:42 3 01/10 05:07 Order name: Manual Differential EDMS 01/10 04:12 Order name: XRAY Chest ([address] view) [facility] 01/10 06:55 Order name: BIPAP 3 01/10 04:12 Order name: EKG; Complete Time: 04:12 [facility] 01/10 04:12 Order name: Cardiac monitoring; Complete Time: 04:27 [facility] 01/10 04:12 Order name: EKG - Nurse/Tech; Complete Time: :27 [facility] 01/10 04:12 Order name: IV Saline Lock; Complete Time: kdr 01/10 04:12 Order name: Labs collected and sent; Complete Time: kdr 01/10 04:12 Order name: O2 Per Protocol; Complete Time: : kdr 01/10 04:12 Order name: O2 Sat Monitoring; Complete Time: kdr Administered Medications: 04:43 Drug: Ondansetron IVP 4 mg Route: IVP; Site: left upper arm; lg3 05:15 Follow up: Response: No adverse reaction; Marked relief of symptoms; Nausea is decreasedlg3 Disposition Summary: 01/10/23 04:31 Transfer Ordered Transfer Location: [facility] kdr Reason: Higher level of care kdr Condition: Serious kdr Problem: an acute exacerbation kdr Symptoms: are unchanged kdr Accepting Physician: Dr. Phelps(01/10/23 07:13) ld1 Diagnosis - Heart failure, unspecified kdr - Shortness of breath kdr Forms: - Medication Reconciliation Form kdr - SBAR form kdr Signatures: Dispatcher [employer] EDMS Giovani Guzman MD MD kdr Anita Khoury, RILEY RN lg3 Alejandra Hyde RN RN ld1 Mireya Galan, RN RN kd3 Corrections: (The following items were deleted from the chart) 06: 04:31 dfgdg kdr kdr 07:13 06:21 Dr. Phelps kdr ld1
--- NOTE | 2023-01-10 04:32 | ER ---
Nurse's Notes [facility] Name: Han Hyde Age: 72 yrs Sex: Male : 1950 Arrival Date: 01/10/2023 Time: 04:00 Bed 3 Private MD: Diagnosis: Heart failure, unspecified;Shortness of breath Presentation: 01/10 04:03 Chief complaint: Patient states: pt is having shortness of breath today. He was just kd3 discharged from [place] recently. He was saturating in the 80's to low 90's on 5 L N/C. Pt is on hospice but is not a DNR. Coronavirus screen: Vaccine status:. Ebola Screen: No symptoms or risks identified at this time. Initial Sepsis Screen: Does the patient meet any 2 criteria? No. Patient's initial sepsis screen is negative. Does the patient have a suspected source of infection? No. Patient's initial sepsis screen is negative. Risk Assessment: Do you want to hurt yourself or someone else? Patient reports no desire to harm self or others. Onset of symptoms was January 10, 2023. 04:03 Method Of Arrival: EMS: [facility] kd3 04:03 Acuity: RAUL 2 kd3 Triage Assessment: 04:06 General: Appears uncomfortable, Behavior is anxious. Pain: Denies pain. Neuro: Level of kd3 Consciousness is awake, alert, obeys commands, Oriented to person, place, time, situation. Cardiovascular:. Respiratory: Airway is patent Respiratory effort is labored. :. Derm: Skin is dusky, pale. Historical: - Allergies: 04:06 Demerol; kd3 04:06 Lisinopril; kd3 04:06 Xarelto; kd3 - PMHx: 04:06 diabetes mellitus; Hypertensive disorder; kd3 - PSHx: 04:06 heart stent; pacemaker right side; R shoulder replacement; triple bypass; kd3 - Immunization history:: Adult Immunizations up to date. - Social history:: Smoking status: unknown. Screenin:15 [facility] ED Fall Risk Assessment (Adult) History of falling in the last 3 months, lg3 including since admission No falls in past 3 months (0 pts). Abuse screen: Denies threats or abuse. Denies injuries from another. Nutritional screening: No deficits noted. Tuberculosis screening: No symptoms or risk factors identified. Assessment: 04:15 General: Appears distressed, uncomfortable, Behavior is cooperative, restless. Pain: lg3 Complains of pain in back. Neuro: No deficits noted. Keller Agitation-Sedation Scale (RASS): 0 - Alert and Calm Level of Consciousness is awake, alert, obeys commands, Oriented to person, place, time, situation. Cardiovascular: Reports fatigue, nausea, shortness of breath. Respiratory: Airway is patent Respiratory effort is labored, with retractions, Respiratory pattern is tachypnea Patient placed on BiPAP: the patient has severe shortness of breath. GI: No deficits noted. Abdomen is flat, non-distended. : No deficits noted. No signs and/or symptoms were reported regarding the genitourinary system. EENT: No signs and/or symptoms were reported regarding the EENT system. Nares with bleeding noted on left. Derm: Skin is intact, Skin is diaphoretic, Skin is pale, Skin temperature is cool. Derm: generalized edema noted. Musculoskeletal: Circulation, motion, and sensation intact. 05:43 General: Appears in no apparent distress. comfortable, Behavior is calm, cooperative. lg3 Neuro: No deficits noted. Keller Agitation-Sedation Scale (RASS): 0 - Alert and Calm Level of Consciousness is awake, alert, obeys commands, Oriented to person, place, time, situation. Respiratory: Airway is patent Respiratory effort is even, unlabored, Respiratory pattern is regular, symmetrical, the patient has mild shortness of breath. Vital Signs: 04:03 Weight 70.31 kg; Height 5 ft. 5 in. ; kd3 04:08 BP 93 / 81; Pulse 71; Resp 28; Pulse Ox 100% on 15 lpm Non-rebreather mask; lg3 04:10 Temp 98.2(TE); kd3 05:08 BP 102 / 55; Pulse 76; Resp 25; Pulse Ox 97% on BiPAP; aa9 04:03 Body Mass Index 25.79 (70.31 kg, 165.1 cm) kd3 ED Course: 04:02 Patient arrived in ED. rv1 04:05 Giovani Guzman MD is Attending Physician. kdr 04:06 Triage completed. kd3 04:06 Arm band placed on. kd3 04:10 Accessed PICC line. kd3 04:15 Patient has correct armband on for positive identification. Placed in gown. Bed in low lg3 position. Call light in reach. Side rails up X2. Client placed on continuous cardiac and pulse oximetry monitoring. NIBP monitoring applied. cardiac monitor on. Door closed. Noise minimized. Warm blanket given. Family accompanied patient. 04:20 Mireya Galan, RN is Primary Nurse. kd3 04:24 XRAY Chest (1 view) In Process Unspecified. EDMS 04:59 Basic Metabolic Panel Sent. 1 04:59 SARS-COV-2 RT PCR Sent. 1 04:59 CBC with Diff Sent. 1 05:00 LFT's Sent. 1 05:00 NT PRO-BNP Sent. 1 05:00 PT-INR Sent. 1 05:00 Troponin HS Sent. 1 05:26 Notified ED physician of a critical lab result(s). troponin 254.6. kd3 05:57 Manual Differential Sent. rv1 05:57 CBC with Diff Sent. rv1 07:12 No provider procedures requiring assistance completed. Patient transferred, IV remains ld1 in place. Administered Medications: 04:43 Drug: Ondansetron IVP 4 mg Route: IVP; Site: left upper arm; lg3 05:15 Follow up: Response: No adverse reaction; Marked relief of symptoms; Nausea is decreasedlg3 Medication: 07:13 VIS not applicable for this client. ld1 Outcome: 04:31 ER care complete, transfer ordered by . kdr 07:12 Transferred by ground EMS ld1 07:12 Condition: unchanged 07:12 Instructed on the need for transfer. 07:13 Patient left the ED. ld1 Signatures: Dispatcher [employer] EDMS Giovani Guzman MD MD [facility] Anita Khoury RN RN lg3 Alejandra Hyde RN RN ld1 Mireya Galan, RILEY LIN kd3 Jordana Singleton RN RN Adina Cisneros rv1 Miracle Cooper [facility]
[2023-01-10] MEDS ORDERED: ONDANSETRON 4 MG/2 ML VIAL ONE (04:47)
[2023-01-10 05:00] LABS: Absolute Lymphocytes (CBC) 0.8 K/uL (0.7-4.9); Hematocrit 27.6 % (39.6-49.0); Lymphocytes % 7.6 % (15.3-44.8); MCV 90.8 fL (80-100); RBC Red Blood Cell Count 3.04 M/uL (4.33-5.43)
[2023-01-10 05:04] LABS: Protime INR 3.1
[2023-01-10 05:25] LABS: Albumin 2.2 g/dL (3.4-5.0); Bilirubin Direct 3.1 mg/dL (0-0.2); Bilirubin Total 3.9 mg/dL (0.2-1.0); Potassium 5.6 mEq/L (3.5-5.1); Protein, Total 6.2 g/dL (6.4-8.2)
[2023-01-10 05:26] LABS: Troponin High Sensitivity 254.6 pg/mL (<58.9)
[2023-01-10 07:22] LABS: Anisocytosis 2+; Blood Morphology Comment NOTED (NOT SEEN); Hypochromasia 1+; Macrocytosis 1+; Platelet Estimate ADEQ
[2023-01-10 07:24] VITALS: TEMP 98.2
[2023-01-10 07:25] VITALS: BP 102/55; O2SAT 97
--- NOTE | 2023-01-10 11:13 | RAD REPORT ---
EXAM DESCRIPTION: RAD - Chest Single View - 01/10/2023 4:23 am CLINICAL HISTORY: DYSPNEA. COMPARISON: None. TECHNIQUE: Single view AP chest radiograph(s). FINDINGS: Moderate reticulonodular pulmonary opacification bilaterally. No pleural effusion. No pneu mothorax. Mild cardiomegaly status post biventricular AICD. Median sternotomy wires. Right humeral he ad replacement. IMPRESSION: Moderate reticulonodular pulmonary opacification, which could reflect pulmonary edema or infectious/inflammatory etiology. Electronically signed by: Mi Dye MD 01/10/2023 9:13 PM CDT Due to temporary technical issues with the PACS/Fluency reporting system, reports are being signed by the in house radiologist without review as a courtesy to ensure prompt reporting. The interpreting r adiologist is fully responsible for the content of the report.
--- NOTE | 2023-01-12 07:07 | EKG ---
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
== END 2023-01-10 07:13 | disposition short-term general hospital (02) ==
LOC: ER 04:00
DX: I50.9 Heart failure, unspecified (principal); I10 Essential (primary) hypertension; Z95.0 Presence of cardiac pacemaker; Z95.1 Presence of aortocoronary bypass graft; Z88.5 Allergy status to narcotic agent; Z88.8 Allergy status to other drugs, medicaments and biological substances; Z20.822 Contact with and (suspected) exposure to COVID-19
CPT/HCPCS: 93005; 85025; 80048; 36415; 85610; 80076; 84484; 83880; 71045; 82805; 94660; 96374; 99285; U0003; J2405